=== PATIENT | male | born 1950 | race Caucasian/White ===

== ENCOUNTER 2017-02-09 14:00 | Inpatient (IN) | payer OTHER ==
[~2017-02-09] VITALS: Ht 170.2 cm; Wt 74.0 kg
[~2017-02-09 14:00] MED LIST: ASPEC81 PO; LPR25 PO; LPT40 PO; LSN5 PO; NTRGSL/4 UT; PLV75 PO; PRLSR20 PO
[2017-02-09 14:37] LABS: BASO % 0.6 %; BASO ABS # 0.04 K/uL (0-0.2); COMPLETE YES; EOS % 3.5 %; IG% 0.3 %; LYMPH % 18.8 %; LYMPH ABS # 1.35 K/uL (1.2-3.4); MEAN CORPUSCULAR HEMOGLOBIN 30.4 pg (25-34); MEAN PLATELET VOLUME 11.2 fL (7.4-10.4); MONO % 8.9 %; NEUT % 67.9 %; PLATELET COUNT 226 K/uL (130-400); RED BLOOD COUNT 2.96 M/uL (4.7-6.1); WHITE BLOOD COUNT 7.18 K/uL (4.8-10.8)
[2017-02-09 14:50] LABS: URINE APPEARANCE CLEAR (CLEAR); URINE BILIRUBIN NEG (NEG); URINE COLOR YELLOW; URINE EPITHELIAL CELL AUTO >30 /lpf (0-5); URINE NITRITE NEG (NEG); URINE SPECIFIC GRAVITY 1.022 (1.000-1.030); UROBILINOGEN NEG (NEG)
[2017-02-09 14:54] LABS: CALCIUM 8.1 mg/dl (8.5-10.1); CREATININE 1.1 mg/dl (0.60-1.40); POTASSIUM 3.5 mmol/L (3.5-5.1)
--- NOTE | 2017-02-09 14:59 | DIAGNOSTIC IMAGING REPORT ---
CHEST ONE VIEW PORTABLE HISTORY: Mood Disorder COMPARISON: Chest 01/05/2015. FINDINGS: The heart remains mildly enlarged. There is mild diffuse interstitial thickening. No new focal lung consolidations to suggest pneumonia. Left suprahilar density is likely due to the overlapping first rib. This is not significantly changed. 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 IMPRESSION: 1. Mild diffuse interstitial thickening. This could be chronic or due to mild congestive change. 2. Mild cardiomegaly, unchanged. 3. Left suprahilar density likely due to the overlapping first rib. Follow-up PA and lateral views of the chest is recommended for confirmation. Electronically signed by: Mathew Abbott M.D. 02/09/2017 2:58 PM Dictated Date/Time: 02/09/2017 2:54 PM
[2017-02-09 15:04] LABS: MANUAL MICROSCOPIC REQUIRED? NO; REVIEW REQ? YES; SULFASALICYLIC ACID POS (NEG); THYROID STIMULATING HORMONE 1.63 uIu/ml (0.300-4.500)
[2017-02-09] MEDS ORDERED: ASPI81TA28 PO (16:08)
[2017-02-09] MEDS ORDERED: ATOR-26 PO (16:08)
--- NOTE | 2017-02-09 16:24 | EMERGENCY ROOM VISIT NOTE ---
History Report prepared by Kinza: Salma Martínez Under the Supervision of: Dr. Colten Rae D.O. First contact with patient: 14:19 Chief Complaint: MENTAL HEALTH EVALUATION Stated Complaint: [facility] History of Present Illness The patient is a 66 year old male who presents to the Emergency Room with complaints of persistent depression that began a month and a half ago. The patient states that on December 16 his girlfriend of six years left him for another man. He states that he had previously been three times, noting that he had two previous divorces and lost his third to cancer. The patient states that today he reached out to [facility] to help sorting his thoughts and settling mind. He states that he vented to the counselor and said several things that he did not mean. The patient states that he would never actually hurt someone, but states that he did make statements regarding getting revenge. He additionally states that he made comments about wanting to join his that he lost several years ago, but states that he would never actually follow up on the intent. Per the psych manager case, the patient had been trying to get into therapy for the past several weeks and called [facility] today for assistance. She reports that the patient had several homicidal thoughts of wanting to kill the man his girlfriend left him for with a baseball bat, and states that the patient said if that didn't work he would use a gun from his gun cabinet. The psych manager case states that the patient made suicidal comments of swerving his motorcycle in front of a semi-truck. She reports that the patient then went on to say how he would additionally harm his ex-girlfriend and two other people. The psych manager case states that the patient is not willing for inpatient at this time. Pt denies headache, change in vision, fevers, chest pain, shortness of breath, nausea, vomiting, diarrhea, pain with urination, and melena. Source of History: patient Onset: a month and a half ago Position: other (global) Quality: other (depression) Timing: other (persistent) Note: Associated Symptoms: Suicidal and homicidal thoughts Review of Systems See HPI for pertinent positives & negatives. A total of 10 systems reviewed and were otherwise negative. Past Medical & Surgical Medical Problems: (1) Acute pancreatitis (2) Alcohol abuse (3) Cholelithiasis without obstruction (4) Dyslipidemia (5) Essential hypertension (6) Gastroesophageal reflux disease (7) suicidal and homicidal ideation Family History FH: heart disease Social History Smoking Status: Current Every Day Smoker Alcohol Use: none Drug Use: none Marital Status: in relationship Housing Status: lives with significant other Current/Historical Medications Scheduled Aspirin (Aspirin Ec), 81 MG PO DAILY Atorvastatin (Lipitor), 80 MG PO QPM Metoprolol Tartrate (Lopressor), 25 MG PO Q12 Omeprazole (Prilosec), 20 MG PO DAILY Scheduled PRN Nitroglycerin (Nitrostat), 0.4 MG UT PRN PRN for Chest Pain Allergies Coded Allergies: Shellfish (Verified Allergy, Unknown, UNKNOWN, 02/09/17) Physical Exam Vital Signs Date Time Temp Pulse Resp B/P Pulse Ox O2 Delivery O2 Flow Rate FiO2 02/09/17 15:54 80 18 172/104 98 Room Air 02/09/17 14:00 37.6 90 18 167/99 98 Room Air Physical Exam GENERAL: Sitting up in bed, alert, well appearing, well nourished, no distress, non-toxic EYE EXAM: normal conjunctiva. OROPHARYNX: no exudate, no erythema, lips, buccal mucosa, and tongue normal and mucous membranes are moist NECK: supple, no nuchal rigidity, no adenopathy, non-tender LUNGS: Clear to auscultation. Normal chest wall mechanics HEART: no murmurs, S1 normal and S2 normal ABDOMEN: abdomen soft, non-tender, normo-active bowel sounds, no masses, no rebound or guarding. BACK: Back is symmetrical on inspection and there is no deformity, no midline tenderness, no CVA tenderness. SKIN: no rashes and no bruising UPPER EXTREMITIES: upper extremities are grossly normal. LOWER EXTREMITIES: No pitting edema. NEURO EXAM: Normal sensorium, cranial nerves II-XII grossly intact, normal speech, no gross weakness of arms, no gross weakness of legs. PSYCH: Admits to statements of suicidal ideation and homicidal ideation, but denies any auditory or visual hallucinations. Medical Decision & Procedures ER Provider Diagnostic Interpretation: Radiology results as stated below per my review and the radiologist's interpretation: CHEST ONE VIEW PORTABLE HISTORY: Mood Disorder COMPARISON: Chest 01/05/2015. FINDINGS: The heart remains mildly enlarged. There is mild diffuse interstitial thickening. No new focal lung consolidations to suggest pneumonia. Left suprahilar density is likely due to the overlapping first rib. This is not significantly changed. 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 IMPRESSION: 1. Mild diffuse interstitial thickening. This could be chronic or due to mild congestive change. 2. Mild cardiomegaly, unchanged. 3. Left suprahilar density likely due to the overlapping first rib. Follow-up PA and lateral views of the chest is recommended for confirmation. Electronically signed by: Mathew Abbott M.D. 02/09/2017 2:58 PM Dictated Date/Time: 02/09/2017 2:54 PM Laboratory Results 02/09/17 14:15 Red Blood Count 2.96, Mean Corpuscular Volume 98.0, Mean Corpuscular Hemoglobin 30.4, Mean Corpuscular Hemoglobin Concent 31.0, Mean Platelet Volume 11.2, Neutrophils (%) (Auto) 67.9, Lymphocytes (%) (Auto) 18.8, Monocytes (%) (Auto) 8.9, Eosinophils (%) (Auto) 3.5, Basophils (%) (Auto) 0.6, Neutrophils # (Auto) 4.88, Lymphocytes # (Auto) 1.35, Monocytes # (Auto) 0.64, Eosinophils # (Auto) 0.25, Basophils # (Auto) 0.04 02/09/17 14:15 Test 02/09/17 14:15 02/09/17 14:30 White Blood Count 7.18 K/uL (4.8-10.8) Red Blood Count 2.96 M/uL (4.7-6.1) Hemoglobin 9.0 g/dL (14.0-18.0) Hematocrit 29.0 % (42-52) Mean Corpuscular Volume 98.0 fL (80-100) Mean Corpuscular Hemoglobin 30.4 pg (25-34) Mean Corpuscular Hemoglobin Concent 31.0 g/dl (32-36) Platelet Count 226 K/uL (130-400) Mean Platelet Volume 11.2 fL (7.4-10.4) Neutrophils (%) (Auto) 67.9 % Lymphocytes (%) (Auto) 18.8 % Monocytes (%) (Auto) 8.9 % Eosinophils (%) (Auto) 3.5 % Basophils (%) (Auto) 0.6 % Neutrophils # (Auto) 4.88 K/uL (1.4-6.5) Lymphocytes # (Auto) 1.35 K/uL (1.2-3.4) Monocytes # (Auto) 0.64 K/uL (0.11-0.59) Eosinophils # (Auto) 0.25 K/uL (0-0.5) Basophils # (Auto) 0.04 K/uL (0-0.2) RDW Standard Deviation 65.1 fL (36.4-46.3) RDW Coefficient of Variation 18.2 % (11.5-14.5) Immature Granulocyte % (Auto) 0.3 % Immature Granulocyte # (Auto) 0.02 K/uL (0.00-0.02) Urine Color YELLOW Urine Appearance CLEAR (CLEAR) Urine pH 8.0 (4.5-7.5) Urine Specific [place] 1.022 (1.000-1.030) Urine Protein 2+ (NEG) Urine Glucose (UA) NEG (NEG) Urine Ketones NEG (NEG) Urine Occult Blood NEG (NEG) Urine Nitrite NEG (NEG) Urine Bilirubin NEG (NEG) Urine Urobilinogen NEG (NEG) Urine Leukocyte Esterase TRACE (NEG) Urine WBC (Auto) 10-30 /hpf (0-5) Urine RBC (Auto) 0-4 /hpf (0-4) Urine Hyaline Casts (Auto) 5-10 /lpf (0-5) Urine Epithelial Cells (Auto) >30 /lpf (0-5) Urine Bacteria (Auto) NEG (NEG) Urine Renal Epithelial Cells 0-5 /lpf (0-5) Anion Gap 4.0 mmol/L (3-11) Est Creatinine Clear Calc Drug Dose 63.4 ml/min Estimated GFR () 81.8 Estimated GFR (Non- 70.6 BUN/Creatinine Ratio 16.0 (10-20) Calcium Level 8.1 mg/dl (8.5-10.1) Total Bilirubin 0.5 mg/dl (0.2-1) Direct Bilirubin 0.1 mg/dl (0-0.2) Aspartate Amino Transf (AST/SGOT) 15 U/L (15-37) Alanine Aminotransferase (ALT/SGPT) 22 U/L (12-78) Alkaline Phosphatase 81 U/L (45-117) Total Protein 9.3 gm/dl (6.4-8.2) Albumin 3.3 gm/dl (3.4-5.0) Thyroid Stimulating Hormone (TSH) 1.630 uIu/ml (0.300-4.500) Urine Opiates Screen NEG (NEG) Urine Methadone, Qualitative NEG (NEG) Urine Barbiturates NEG (NEG) Urine Phencyclidine (PCP) Level NEG (NEG) Ur Amphetamine/Methamphetamine NEG (NEG) MDMA (Ecstasy) Screen NEG (NEG) Urine Benzodiazepines Screen NEG (NEG) Urine Cocaine Metabolite NEG (NEG) Urine Marijuana (THC) POS (NEG) Ethyl Alcohol mg/dL < 3.0 mg/dl (0-3) Bedside Glucose 101 mg/dl (70-99) Laboratory results per my review. Medications Administered Medications (Trade) Dose Ordered Sig/Dolly Route Start Time Stop Time Status Last Admin Dose Admin Metoprolol Tartrate (Lopressor Tab) 25 mg NOW STAT PO 02/09/17 18:40 02/09/17 18:42 DC 02/09/17 19:09 25 MG Atorvastatin Calcium (Lipitor Tab) 80 mg NOW STAT PO 02/09/17 18:41 02/09/17 18:42 DC 02/09/17 19:09 80 MG ED Course ED COURSE: Vital signs were reviewed and showed hypertensive The patients medical record was reviewed The above diagnostic studies were performed and reviewed. ED treatments and interventions as stated above. 1431: The patient was evaluated in room A7. A complete history and physical examination was performed. 1740: I signed the 302 petition at this time. 1805: I had a long conversation with the patient and he has been informed that he is going to be placed for further psychiatric evaluation. He is tearful. 1840: Ordered Lopressor Tab 25 mg PO, Lipitor Tab 80 mg PO. 1928: The patient has been accepted to [facility] for further psychiatric care and evaluation. Medical Decision Differential diagnosis: Etiologies such as mood disorder, infection, hypoglycemia, electrolyte abnormalities, cardiac sources, intracerebral event, toxicologic, neurologic, as well as others were entertained. Patient is a 66-year-old male who presents the ER after making suicidal statements along with homicidal statements to can help. Patient does admit to the statements now but notes that he would never do this. He did have a clear plan laid out and had a backup plan case is initial plan fell. Labs show a chronic anemia. BMP along with LFTs and TSH were normal. Tox was positive for marijuana. Alcohol was negative. UA was negative. Based on his symptoms and presentation I felt it was reasonable to sign the 302. At this point patient was updated and admitted to 3 S. Impression Primary Impression: Suicidal ideation Additional Impression: Chronic anemia Scribe Attestation The scribe's documentation has been prepared under my direction and personally reviewed by me in its entirety. I confirm that the note above accurately reflects all work, treatment, procedures, and medical decision making performed by me. Departure Information Dispostion Mental Health Acute Care Referrals Savanah Geiger D.O. (PCP) Problem Qualifiers
[2017-02-09 16:31] LABS: BENZODIAZEPINE, URINE NEG (NEG); COCAINE,URINE NEG (NEG); PHENCYCLIDINE, URINE NEG (NEG)
[2017-02-09] MEDS ORDERED: METOPROLOL TARTRATE 50 MG TAB PO STA (18:40)
[2017-02-09] MEDS ORDERED: ATORVASTATIN 40 MG TAB PO STA (18:41)
[2017-02-09] MEDS ORDERED: ACETAMINOPHEN 325 MG TAB PO PRN (18:45)
[2017-02-09] MEDS ORDERED: MAGNESIUM HYDROXIDE SUSP 30 ML UDC PO PRN (18:45)
[2017-02-09] MEDS ORDERED: hydrOXYzine HCL 25 MG TAB PO PRN (18:45)
[2017-02-09] MEDS ORDERED: ALUMINUM/MAGNESIUM SUSP 30 ML UDC PO PRN (18:45)
[2017-02-09] MEDS ORDERED: SODIUM CHLORIDE 0.65% NA SOLN 45 ML (OCEAN) PRN (18:45)
[2017-02-09] MEDS ORDERED: BISMUTH SUBSALICYLATE PER ML OMNICELL CHARGE PO PRN (18:45)
[2017-02-09] MEDS ORDERED: NITROGLYCERIN 0.4 MG SL PER TAB CHARGE UT PRN (19:00)
[2017-02-09 20:12] VITALS: O2SAT 97
[2017-02-09 20:41] VITALS: BP_SYST 154; BP_SYST 160; BP_DIAS 87; BP_DIAS 90; PULSE 73; PULSE 88; TEMP 37.6; Ht 170.2 cm; Wt 74.0 kg
[2017-02-09] MEDS: METOPROLOL TARTRATE 25 MG TAB PO SCH (21:00)
[2017-02-09] MEDS: ATORVASTATIN 40 MG TAB PO SCH (21:00)
[2017-02-10 06:41] VITALS: BP 86/53; PULSE 101; TEMP 36.9
[2017-02-10] MEDS: NICOTINE 14 MG/24 HR TDSY TD SCH (09:00)
[2017-02-10] MEDS: PANTOprazole SOD 40 MG TAB PO SCH (10:38)
[2017-02-10] MEDS: METOPROLOL TARTRATE 25 MG TAB PO SCH ×2 (10:38→20:26)
[2017-02-10] MEDS: ASPIRIN 81 MG ECTAB PO SCH (10:38)
--- NOTE | 2017-02-10 11:03 | Psychiatric History & Physical ---
History Date of Service February 10, 2017. Identifying Data Brian Salinas is a 66-year-old male who currently lives in [facility], who was brought to the emergency room bipolar amalia, after making a call to can help, and reporting homicidal and suicidal ideation. The patient is admitted on a 302 involuntary commitment. Chief Complaint "I was feeling a little low." History of Present Illness The patient is a 66-year-old male with no past psychiatric history, who reports that he was completely misunderstood by the can help worker when he called her to "vent" yesterday. He admits that he has been depressed for years, since his third , Mame, from cancer. He felt that she was his one true love and admits to having had suicidal ideation intermittently since then. More recently, he had been in a relationship with a woman whose name is Greta. They have been together for 6 or 7 years. On December 16, she ended their relationship because she was going to be with another man. He said that he he "hurt deep". He had thoughts to kill himself and her boyfriend for "taking Greta away from me ". He never acted on these thoughts. Since November he feels like his mood has steadily been improving. He says he even had plans to go out on a date with another woman which he was looking forward to. He has continued to have intermittent thoughts of suicide and apparently homicidality. Yesterday, he called the can help worker hoping to talk to Jeaneth, someone he has talked with on mobile crisis twice before. He said he has been trying to get into some outpatient counseling which has not yet happened. Yesterday, he he called can help and they sent out a different mobile packing line worker. He describes her as having been "mean" and misinterpreted all of his statements. According to the 302 petition her statement, the patient indicated that he has had ongoing thoughts of suicide, thinking about riding his motorcycle into traffic to kill himself. He reported to her that he was also having ongoing intrusive thoughts to kill the man that stole his girlfriend. He was specific enough to say that he would use a baseball bat and if that didn't work he would use a gun. He said he had access to multiple guns. He admitted to being mean or lately and also went on to make provocative statements that if he was getting killed one person he might as well kill other people such as Laisha and Mami due to screwing him over on an inheritance. The patient admits that he said some of these things but says that he never meant to follow through and that he was just venting. Today the patient admits that his mood is been depressed and that he has had suicidal and homicidal thoughts but denies he has ever acted on them and says he would never act on them. He reports that his sleep is been "all right". His appetite has been "okay". His energy is "getting better" and he has been working around the house and has many projects lined up. He denies that he has ever experienced auditory or visual hallucinations. He doesn't endorse chronic worry, worrying about other people. He currently has his best friend, Sher, living with him for the last 2 months because Sher himself was going through a divorce. The patient willingly says that he will provide Sher's number so that we can get additional information from him. Brian denies that he is ever engaged in self-injurious behaviors. He denies any discrete episodes of euphoric mood, sleeplessness or pleasure seeking behaviors that would be congruent with a bipolar disorder. Past Psychiatric History Current OP Treatment: no current treatment Prior OP Treatment: no prior treatment Prior Psych Hospitalizations: none Access to a Gun: Yes Suicide Attempts: No Past Medication Trials The patient reports 1 previous trial of an antidepressant, on which he felt unwell Past Medical/Surgical History History of Concussion/Seizure: No (1) Benign essential hypertension (2) Dyslipidemia (3) STEMI (ST elevation myocardial infarction) (4) Chronic anemia (5) Gastroesophageal reflux disease (6) Tobacco dependence syndrome Allergies Allergies: Coded Allergies: Shellfish (Verified Allergy, Unknown, UNKNOWN, 02/09/17) Home Medications Scheduled Aspirin (Aspirin Ec), 81 MG PO DAILY Atorvastatin (Lipitor), 80 MG PO QPM Metoprolol Tartrate (Lopressor), 25 MG PO Q12 Omeprazole (Prilosec), 20 MG PO DAILY Scheduled PRN Nitroglycerin (Nitrostat), 0.4 MG UT PRN PRN for Chest Pain Family History FH: heart disease History of Suicide: No History of Substance Abuse: No Psychiatric History: No Alcohol Use Alcohol Use In Past 12 Months: No (DRANK 10 YEARS AGO.) AUDIT Total Score: 0 The patient admits to being an alcoholic but has been sober for decades Smoking Use Smoking Status: Current Every Day Smoker Substance History The patient admits to smoking marijuana 1-2 times per week which he says he uses for arthritis. He denies the use of other street drugs. Personal History Lives in: [place] in his own home he has his friend Sher living with him for the Childhood: Grew up locally. Both parents are . He has no contact with previous wives or his one biological daughter Education: graduated from high school Work History: Carpentry, construction, currently retired on disability for medical reasons Relationship History: (2), ( Mame in 2007) Children: 1 biological daughter with whom he has no contact Spiritual Affiliation: denies Legal History: none Psychological Trauma History: Other (none) Review of Systems Constitutional: denies no symptoms reported, denies see HPI, denies chills, denies diaphoresis, denies fever, denies malaise, denies weakness, denies other Eyes: denies: as stated in HPI, blurred vision, discharge, double vision, eye pain, itching, no symptoms, other, photophobia, redness, tearing, visual changes ENT: denies: dental pain, ear discharge, ear pain, epistaxis, gum swelling, loss of hearing, mouth pain, mouth swelling, nasal congestion, nasal pain, no symptoms reported, other, rhinorrhea, see HPI, sore throat, stidor, throat swelling, tinnitus Cardiovascular: reports: chest tightness (with exercise) Respiratory: reports: cough ("smoker's cough"), short of breath (with exertion) Gastrointestinal: denies no symptoms reported, denies see HPI, denies abdominal pain, denies constipation, denies diarrhea, denies nausea, denies vomiting, denies other Genitourinary - Male: denies: amenorrhea, impotence, no symptoms, other, penile discharge, penile itching, rash, see HPI, testicular pain, testicular swelling Musculoskeletal: joint pain (arthritis) Integumentary: denies no symptoms reported, denies see HPI, denies change in color, denies change in hair/nails, denies dryness, denies lesions, denies lumps , denies rash, denies other Neurologic: denies: dizziness, focal weakness, general weakness, headache, lethargy, memory loss, no symptoms, numbness, other, paresthesias, pre-existing deficit, see HPI, seizure, tics, tingling, tremors, vertigo Endocrine: denies: as stated in HPI, cold intolerance, goiter, hair changes, heat intolerance, no symptoms, other, polydipsia, polyuria, skin changes Hematologic / Lymphatic: anemia (chronic) Examination Physical Examination Exam performed by Dr. Rae in the emergency room has been reviewed and accepted as medical clearance to our unit Vital Signs Vital Signs Past 12 Hours Date Time Temp Pulse Resp B/P Pulse Ox O2 Delivery O2 Flow Rate FiO2 02/10/17 06:41 36.9 101 18 86/53 Laboratory Results Last 24 Hours Test 02/09/17 14:15 02/09/17 14:30 White Blood Count 7.18 K/uL Red Blood Count 2.96 M/uL Hemoglobin 9.0 g/dL Hematocrit 29.0 % Mean Corpuscular Volume 98.0 fL Mean Corpuscular Hemoglobin 30.4 pg Mean Corpuscular Hemoglobin Concent 31.0 g/dl Platelet Count 226 K/uL Mean Platelet Volume 11.2 fL Neutrophils (%) (Auto) 67.9 % Lymphocytes (%) (Auto) 18.8 % Monocytes (%) (Auto) 8.9 % Eosinophils (%) (Auto) 3.5 % Basophils (%) (Auto) 0.6 % Neutrophils # (Auto) 4.88 K/uL Lymphocytes # (Auto) 1.35 K/uL Monocytes # (Auto) 0.64 K/uL Eosinophils # (Auto) 0.25 K/uL Basophils # (Auto) 0.04 K/uL RDW Standard Deviation 65.1 fL RDW Coefficient of Variation 18.2 % Immature Granulocyte % (Auto) 0.3 % Immature Granulocyte # (Auto) 0.02 K/uL Urine Color YELLOW Urine Appearance CLEAR Urine pH 8.0 Urine Specific [place] 1.022 Urine Protein 2+ Urine Glucose (UA) NEG Urine Ketones NEG Urine Occult Blood NEG Urine Nitrite NEG Urine Bilirubin NEG Urine Urobilinogen NEG Urine Leukocyte Esterase TRACE Urine WBC (Auto) 10-30 /hpf Urine RBC (Auto) 0-4 /hpf Urine Hyaline Casts (Auto) 5-10 /lpf Urine Epithelial Cells (Auto) >30 /lpf Urine Bacteria (Auto) NEG Urine Renal Epithelial Cells 0-5 /lpf Sodium Level 139 mmol/L Potassium Level 3.5 mmol/L Chloride Level 106 mmol/L Carbon Dioxide Level 29 mmol/L Anion Gap 4.0 mmol/L Blood Urea Nitrogen 18 mg/dl Creatinine 1.10 mg/dl Est Creatinine Clear Calc Drug Dose 63.4 ml/min Estimated GFR () 81.8 Estimated GFR (Non- 70.6 BUN/Creatinine Ratio 16.0 Random Glucose 94 mg/dl Calcium Level 8.1 mg/dl Total Bilirubin 0.5 mg/dl Direct Bilirubin 0.1 mg/dl Aspartate Amino Transf (AST/SGOT) 15 U/L Alanine Aminotransferase (ALT/SGPT) 22 U/L Alkaline Phosphatase 81 U/L Total Protein 9.3 gm/dl Albumin 3.3 gm/dl Thyroid Stimulating Hormone (TSH) 1.630 uIu/ml Urine Opiates Screen NEG Urine Methadone, Qualitative NEG Urine Barbiturates NEG Urine Phencyclidine (PCP) Level NEG Ur Amphetamine/Methamphetamine NEG MDMA (Ecstasy) Screen NEG Urine Benzodiazepines Screen NEG Urine Cocaine Metabolite NEG Urine Marijuana (THC) POS Ethyl Alcohol mg/dL < 3.0 mg/dl Bedside Glucose 101 mg/dl Mental Examination During interview pt is: alert and oriented, cooperative Appearance: disheveled (wearing hospital gown) Eye contact is: good Motor behavior is: steady gait & station, no abnormal motor movements Speech: normal in rate, rhythm & volume Affect: anxious Mood is: depressed, anxious Thought process: goal directed Thought content: reality based without delusions Suicidal thought are: present, Plan: denied, Intent: denied Homicidal thoughts are: present, Plan: denied (despite reports to use a baseball bat or a gun in the 302 petition her statement), Intent: denied Hallucinations: denies auditory, denies visual Cognition: memory grossly intact, attention grossly intact, language grossly intact Intelligence estimated to be: below average Insight: limited Judgement: limited Impression / Recommendations Impression 66-year-old gentleman admitted to our unit on a 302 involuntary commitment after making suicidal and homicidal statements to the can help worker. He does not see the seriousness of these statements, wanting only to see that he made them as a means of venting his feelings. He adamantly denies that he would ever act on these. I have explained to him the need to obtain supplemental information that would go toward his recent behaviors in state of mind. He is willing for us to contact his roommate Sher. He is willing for outpatient counseling and will have the social services aide facilitate these appointments. We discussed an antidepressant in view of the fact he has been depressed since November however the patient reports his mood has been improving and does not want to consider medication at this time. We will likely keep him over the weekend to be sure that his presentation remains the same, allowing us time to get supplemental information and set up appointments. At this time, he requires inpatient mental health treatment due to the severity of his statements and the risk for harm to self and others if discharged. Inventory Assets Strengths: Care and concern for others, willing to engage in treatment Needs: Need to secure guns, get into outpatient therapy Risk Factors Assessment Male: Yes : Yes /single/: Yes Higher / Fall in social status: No Access to guns: Yes Health problems: Yes Mental Health Diagnoses: No Substance use disorders: Yes (remote history of alcoholism) Previous attempt: No Previous psychiatric stay: No Protective Factors Assessment Pentecostal beliefs: No : No Responsible for young children: No Employed: No Stable relationships: No Supportive family: No Recommendations (1) unspecified depressive disorder 02/10 - Obtain supplemental information from roommate Sher re: recent moods, SI, etc. - Q 15 min checks for safety - Encourage participation in group and individual counseling - Arrange for OP counseling - Specific threats were made to the Can Help worker, but not to me. Call Can Help to determine if they are carrying out a duty to warn today. - He is here on a 302. Will continue to gather information toward the need for ongoing inpatient care,. - Assist the patient to learn and utilize healthy coping strategies. (2) Essential hypertension 02/10 - Continue home doses of metoprlol, with hold parameters in view of today's low BP - Monitor BP (3) Dyslipidemia 02/10 - Continue home dose of atorvastatin (4) Gastroesophageal reflux disease 02/10 - Convert omeprazole to protonix (5) Tobacco dependence syndrome 02/10 - Counseled about detriments of smoking. Patient declines the offer of a nicotine patch or gum (6) Cannabis abuse 02/10 - Patient reports the he uses it for arthritis - REcommend abstinence and to see his PCP for eval - Has been reviewed with Dr. Racheal Lowe CPT Code Initial Hospital Care: [id number]
[2017-02-10 20:25] VITALS: BP 167/98; PULSE 76
[2017-02-10] MEDS: ATORVASTATIN 40 MG TAB PO SCH (20:27)
[2017-02-11] MEDS: hydrOXYzine HCL 25 MG TAB PO PRN (03:05)
[2017-02-11 07:10] VITALS: BP_SYST 185; BP_SYST 196; BP_DIAS 91; BP_DIAS 99; PULSE 72; PULSE 73; TEMP 36.7
[2017-02-11] MEDS: NICOTINE 14 MG/24 HR TDSY TD SCH (09:00)
[2017-02-11] MEDS: METOPROLOL TARTRATE 25 MG TAB PO SCH ×2 (09:09→23:56)
[2017-02-11] MEDS: PANTOprazole SOD 40 MG TAB PO SCH (09:09)
[2017-02-11] MEDS: ASPIRIN 81 MG ECTAB PO SCH (09:09)
[2017-02-11] MEDS ORDERED: LISI-461 PO (10:14)
[2017-02-11] MEDS ORDERED: LISINOPRIL 10 MG TAB PO ONE (10:46)
--- NOTE | 2017-02-11 11:08 | Medical Consult ---
Consultation Date of Consultation: February 11, 2017. Attending Physician: Racheal Lowe MD Reason for Consultation: Hypertension History of Present Illness Mr. Salinas is a 66 yoM who presented with SI/HI and is currently being treated in the Behavioral Health Unit. He has a history of STEMI s/p bare metal stent placement in 2014 and is medically managed under the guidance of Dr. Geiger ( Cardiology) and Dr. Geiger (Primary Care). He states that he trusts his PCP implicitly and she calls the meds in for him to take, but he otherwise doesn't know what he is taking. Per the outpatient notes, his lisinopril was increased to 10mg PO daily in Sep for uncontrolled hypertension, and the patient reports compliance with this at home. He denies any chest pain, shortness of breath at this time and ten other systems were reviewed any negative. He is currently emotionally distressed because of missing his cat and from his girlfriend. He is also a chronic, long-term tobacco smoker and is not smoking at this time. He denies any alcohol use since 2007 but reports drinking heavily in the past. Past Medical/Surgical History PMHx: chronic anemia STEMI-CAD s/p bare metal stent in Jul 2015-was on Plavix until Sep 2016 HTN Tobacco abuse Marajuana use GERD Hyperlipidemia COPD Pulmonary nodule PSHx: lap yenifer Family History Patient denies any known family history of medical problems. Social History Smoking Status: Current Every Day Smoker Smokeless Tobacco Use: No Alcohol Use: none Drug Use: marijuana Marital Status: in relationship Housing Status: lives with significant other Allergies Coded Allergies: Shellfish (Verified Allergy, Unknown, UNKNOWN, 02/09/17) Home Medications Reported Home Medications Medications Dose Route/Sig Max Daily Dose Days Date Category Lisinopril 10 Mg Tab 10 Mg PO DAILY 02/11/17 Reported Aspirin Ec (Aspirin) 81 Mg Tab 81 Mg PO DAILY 02/09/17 Reported Lipitor (Atorvastatin Calcium) 80 Mg Tab 80 Mg PO QPM 02/09/17 Reported Lopressor (Metoprolol Tartrate) 25 Mg Tab 25 Mg PO Q12 01/07/15 Rx Nitrostat (Nitroglycerin) 0.4 Mg Tab 0.4 Mg UT PRN PRN 01/05/15 Reported Prilosec (Omeprazole) 20 Mg Capcr 20 Mg PO DAILY 02/11/14 Reported Current Inpatient Medications Current Inpatient Medications Medications (Trade) Dose Ordered Sig/Dolly Route Start Time Stop Time Status Last Admin Dose Admin Acetaminophen (Tylenol Tab) 650 mg Q4H PRN PO 02/09/17 18:45 03/11/17 18:44 Bismuth Subsalicylate (Kaopectate Liqd) 15 ml PRN PRN PO 02/09/17 18:45 03/11/17 18:44 Al Hydroxide/Mg Hydroxide (Maalox Susp) 30 ml Q4H PRN PO 02/09/17 18:45 03/11/17 18:44 Magnesium Hydroxide (Milk Of Magnesia Susp) 30 ml DAILY PRN PO 02/09/17 18:45 03/11/17 18:44 Sodium Chloride ([place] Nasal [place]) PRN PRN NA 02/09/17 18:45 03/11/17 18:44 Hydroxyzine HCl (Vistaril Tab) 50 mg HSZ PRN PO 02/09/17 18:45 03/11/17 18:44 Hydroxyzine HCl (Vistaril Tab) 25 mg Q4H PRN PO 02/09/17 18:45 03/11/17 18:44 02/11/17 03:05 25 MG Nicotine (Nicoderm Cq 14MG Patch) 1 patch QAM TD 02/10/17 09:00 03/12/17 08:59 Miscellaneous (Remove Nicoderm Patch) 1 ea HS N/A 02/09/17 21:00 03/11/17 20:59 Aspirin (Ecotrin Tab) 81 mg DAILY PO 02/10/17 09:00 03/12/17 08:59 02/11/17 09:09 81 MG Atorvastatin Calcium (Lipitor Tab) 80 mg QPM PO 02/09/17 21:00 03/11/17 20:59 02/10/17 20:27 80 MG Metoprolol Tartrate (Lopressor Tab) 25 mg Q12 PO 02/09/17 21:00 03/11/17 20:59 02/11/17 09:09 25 MG Nitroglycerin (Nitrostat Tab) 0.4 mg UD PRN UT 02/09/17 19:00 03/11/17 18:59 Pantoprazole Sodium (Protonix Tab) 40 mg DAILY PO 02/10/17 09:00 03/12/17 08:59 02/11/17 09:09 40 MG Review of Systems Ten systems were reviewed and negative except as indicated in HPI. Physical Exam Date Time Temp Pulse Resp B/P Pulse Ox O2 Delivery O2 Flow Rate FiO2 02/11/17 07:10 36.7 72 18 185/91 73 196/99 02/10/17 20:25 76 167/98 GEN: thin, in no acute distress, alert and appropriate, ambulatory HEENT: NC/AT, pupils equal and reactive, normal sclerae, MMM CARDIO: reg rate, S1/2 heard without m/g/r, 2+ pulses in radial AA LUNGS: CTA bilaterally, no crackles, rales or wheezes, good diaphragmatic excursion ABD: soft, non-tender, non-distended, no rebound or guarding EXTREMITY: no LE swelling or edema, extremities are warm and well-perfused NEURO: CN 2-12 grossly intact, no gross focal deficits MUSC: ambulatory SKIN: warm and dry Laboratory Results 02/09/17 14:15 Red Blood Count 2.96, Mean Corpuscular Volume 98.0, Mean Corpuscular Hemoglobin 30.4, Mean Corpuscular Hemoglobin Concent 31.0, Mean Platelet Volume 11.2, Neutrophils (%) (Auto) 67.9, Lymphocytes (%) (Auto) 18.8, Monocytes (%) (Auto) 8.9, Eosinophils (%) (Auto) 3.5, Basophils (%) (Auto) 0.6, Neutrophils # (Auto) 4.88, Lymphocytes # (Auto) 1.35, Monocytes # (Auto) 0.64, Eosinophils # (Auto) 0.25, Basophils # (Auto) 0.04 02/09/17 14:15 Test 02/09/17 14:15 02/09/17 14:30 White Blood Count 7.18 K/uL (4.8-10.8) Red Blood Count 2.96 M/uL (4.7-6.1) Hemoglobin 9.0 g/dL (14.0-18.0) Hematocrit 29.0 % (42-52) Mean Corpuscular Volume 98.0 fL (80-100) Mean Corpuscular Hemoglobin 30.4 pg (25-34) Mean Corpuscular Hemoglobin Concent 31.0 g/dl (32-36) Platelet Count 226 K/uL (130-400) Mean Platelet Volume 11.2 fL (7.4-10.4) Neutrophils (%) (Auto) 67.9 % Lymphocytes (%) (Auto) 18.8 % Monocytes (%) (Auto) 8.9 % Eosinophils (%) (Auto) 3.5 % Basophils (%) (Auto) 0.6 % Neutrophils # (Auto) 4.88 K/uL (1.4-6.5) Lymphocytes # (Auto) 1.35 K/uL (1.2-3.4) Monocytes # (Auto) 0.64 K/uL (0.11-0.59) Eosinophils # (Auto) 0.25 K/uL (0-0.5) Basophils # (Auto) 0.04 K/uL (0-0.2) RDW Standard Deviation 65.1 fL (36.4-46.3) RDW Coefficient of Variation 18.2 % (11.5-14.5) Immature Granulocyte % (Auto) 0.3 % Immature Granulocyte # (Auto) 0.02 K/uL (0.00-0.02) Urine Color YELLOW Urine Appearance CLEAR (CLEAR) Urine pH 8.0 (4.5-7.5) Urine Specific [place] 1.022 (1.000-1.030) Urine Protein 2+ (NEG) Urine Glucose (UA) NEG (NEG) Urine Ketones NEG (NEG) Urine Occult Blood NEG (NEG) Urine Nitrite NEG (NEG) Urine Bilirubin NEG (NEG) Urine Urobilinogen NEG (NEG) Urine Leukocyte Esterase TRACE (NEG) Urine WBC (Auto) 10-30 /hpf (0-5) Urine RBC (Auto) 0-4 /hpf (0-4) Urine Hyaline Casts (Auto) 5-10 /lpf (0-5) Urine Epithelial Cells (Auto) >30 /lpf (0-5) Urine Bacteria (Auto) NEG (NEG) Urine Renal Epithelial Cells 0-5 /lpf (0-5) Anion Gap 4.0 mmol/L (3-11) Est Creatinine Clear Calc Drug Dose 63.4 ml/min Estimated GFR () 81.8 Estimated GFR (Non- 70.6 BUN/Creatinine Ratio 16.0 (10-20) Calcium Level 8.1 mg/dl (8.5-10.1) Total Bilirubin 0.5 mg/dl (0.2-1) Direct Bilirubin 0.1 mg/dl (0-0.2) Aspartate Amino Transf (AST/SGOT) 15 U/L (15-37) Alanine Aminotransferase (ALT/SGPT) 22 U/L (12-78) Alkaline Phosphatase 81 U/L (45-117) Total Protein 9.3 gm/dl (6.4-8.2) Albumin 3.3 gm/dl (3.4-5.0) Thyroid Stimulating Hormone (TSH) 1.630 uIu/ml (0.300-4.500) Urine Opiates Screen NEG (NEG) Urine Methadone, Qualitative NEG (NEG) Urine Barbiturates NEG (NEG) Urine Phencyclidine (PCP) Level NEG (NEG) Ur Amphetamine/Methamphetamine NEG (NEG) MDMA (Ecstasy) Screen NEG (NEG) Urine Benzodiazepines Screen NEG (NEG) Urine Cocaine Metabolite NEG (NEG) Urine Marijuana (THC) POS (NEG) Ethyl Alcohol mg/dL < 3.0 mg/dl (0-3) Bedside Glucose 101 mg/dl (70-99) Assessment & Plan 66 yo M admitted to behavioral health unit for SI/HI 1. HTN-uncontrolled. He is on lisinopril at home at 10mg PO daily and reports compliance with this prior to coming in. Will add this back to daily regimen and adjust as needed over next couple of days. Cont other medications including Lopressor. 2. CAD-on appropriate medical therapy for this including statin, ASA, Lopressor and now lisinopril. Plavix was stopped in Sep appropriately after two years and bare metal stent placement in 2014. He is stable and asymptomatic at this time. 3. Chronic anemia-being worked up as outpatient and he will need a GI workup which is being orchestrated by PCP. 4. GERD-cont PPI 5. Tobacco abuse-cont Nicotine replacement and strongly encouraged smoking cessation ciara in setting of CAD and HTN DVT-pt ambulatory and, therefore, low risk so DVT not needed Full Code Winnie Patel DO [facility] Hospitalist
--- NOTE | 2017-02-11 16:38 | Psychiatric Progress Notes ---
Progress Note Date of Service February 11, 2017. Interval History 66-year-old gentleman admitted to our unit on a 302 involuntary commitment after making suicidal and homicidal statements to the can help worker on . . Chief Complaint "I am being thrown away, no one cares". Subjective Patient was seen & assessed interval progress reviewed with Nursing and chart reviewed Patient per nursing had trouble sleeping overnight taking vistaril at 3am and then only getting 3 hours. He had a good visit last PM with his roommate who states "his bark is worse than his bite" meaning the radha is not violent and has not harmed himself or others. The roommate has secured patient's guns. SW has not yet been able to get a hold of his ex-GF regarding duty to warn. Aftercare arrangements were a challenge for Social work given his insurance. Radha was sitting in the corner in the hallway when I met him. He states "No one cares, I am being thrown away" He is notably anxious and circular and distressed stating he wants to go home to his cat, and that nothing will make this hospital stay tolerable. DIscussed the need to observe his safety and behavior, and provide outpatient service appointments prior to leaving. He again is very circular and fixates on aspects of the hospital but states nothing will make it tolerable. He agrees he is depressed but he states "all I wanted was outpatient care from the outset" meaning when he called [facility] 2 weeks ago. 'I was so sad after my in 2008, if I wanted to then and did not kill myself, I sure am not going to do it now....If I was going to do it, I would have done it" He reports feeling sad and lost, and "I just want to go home." He is eating and attending programming. He states he was sitting in the hallway because there were people in everyother room and it was place he could sit down and be alone. He notes he had poor sleep last night and woke in the dayroom startled and anxious "like when you are falling in a dream and you wake up" He has anxiety "what if that happens tonight?" He had feeling of stumbling this AM after his 25mg hydroxyzine. He is open to discussion of medication for sleep, discussed sonata vs. remeron low dose and he elects for remeron Sleep Information Total Hours of Sleep: 3.75 Meal Information Percent of Breakfast Consumed: 0 Percent of Lunch Consumed: 75 Percent of Dinner Consumed: 50 Mental Status Exam During interview pt is: alert and oriented, cooperative Appearance: disheveled (wearing hospital gown) Eye contact is: good Motor behavior is: steady gait & station, no abnormal motor movements Speech: normal in rate, rhythm & volume Affect: anxious Mood is: depressed, anxious Thought process: goal directed (but does get circular and repetitive at times repeating concerns) Thought content: reality based without delusions Suicidal thought are: present (stating "but I am not going to do it"), Plan: denied, Intent: denied Homicidal thoughts are: present, Plan: denied (despite reports to use a baseball bat or a gun in the 302 petition her statement), Intent: denied Hallucinations: denies auditory, denies visual Cognition: memory grossly intact, attention grossly intact, language grossly intact Intelligence estimated to be: below average Insight: limited Judgement: limited Impression 66-year-old gentleman admitted to our unit on a 302 involuntary commitment after making suicidal and homicidal statements to the can help worker. He does not see the seriousness of these statements, wanting only to see that he made them as a means of venting his feelings. He adamantly denies that he would ever act on these. I have explained to him the need to obtain supplemental information that would go toward his recent behaviors in state of mind. He is willing for us to contact his roommate Sher. He is willing for outpatient counseling and will have the social welfare research worker facilitate these appointments. We discussed an antidepressant in view of the fact he has been depressed since November however the patient reports his mood has been improving and does not want to consider medication at this time. We will likely keep him over the weekend to be sure that his presentation remains the same, allowing us time to get supplemental information and set up appointments. At this time, he requires inpatient mental health treatment due to the severity of his statements and the risk for harm to self and others if discharged. Plan (1) unspecified depressive disorder 02/10 - Obtain supplemental information from roommate Sher re: recent moods, SI, etc. - Q 15 min checks for safety - Encourage participation in group and individual counseling - Arrange for OP counseling - Specific threats were made to the [facility] worker, but not to me. Call [facility] to determine if they are carrying out a duty to warn today. - He is here on a 302. Will continue to gather information toward the need for ongoing inpatient care,. - Assist the patient to learn and utilize healthy coping strategies. 02/11 - reiterated need to observe his behavior matching his words and gathering collateral and arranging outpatient care as necessary aspects of his stay with possible discharge on Monday - will use remeron 7.5mg for sleep and although we are not starting it for mood, if he tolerates it, it may help his mood and off label help his anxiety as well he is aware of the role using it for sleep but the possible secondary gains of the medication if he tolerates it - nursing to perform Mini-Cog as patient is showing evidence of cognitive simplicity which may be his baseline but also may be early signs of cognitive impairment (2) Essential hypertension 02/10 - Continue home doses of metoprlol, with hold parameters in view of today's low BP - Monitor BP 02/11 - hypotension 02/10 and then severe HTN 02/11/17, appreciate IM Consult recommendations and starting lisinopril (3) Dyslipidemia 02/10 - Continue home dose of atorvastatin (4) Gastroesophageal reflux disease 02/10 - Convert omeprazole to protonix (5) Tobacco dependence syndrome 02/10 - Counseled about detriments of smoking. Patient declines the offer of a nicotine patch or gum (6) Cannabis abuse 02/10 - Patient reports the he uses it for arthritis - REcommend abstinence and to see his PCP for eval - Has been reviewed with Dr. Racheal Lowe Discharge / Aftercare Planning Primary Care Physician: Name: Dr Savanah Soliz Phone Number: [phone] Appointment Notes: as needed Psychiatrist: Name: [facility] Dr José Phone Number: [phone] Date of Appointment: Mar 16, 2017 Time of Appointment: 900 Appointment Notes: . Therapist: Name: Dano Naqvi Phone Number: [phone] Disulfurizer Tender: Name: jenny Guevara Assets Strengths: Care and concern for others, willing to engage in treatment Needs: Need to secure guns, get into outpatient therapy Risk Factors Assessment Male: Yes : Yes /single/: Yes Higher / Fall in social status: No Health problems: Yes Mental Health Diagnoses: No Substance use disorders: Yes (remote history of alcoholism) Previous attempt: No Previous psychiatric stay: No Protective Factors Assessment Gnosticist beliefs: No : No Responsible for young children: No Employed: No Stable relationships: No Supportive family: No Data Vital Signs Last 24 Hrs: Date Time Temp Pulse Resp B/P Pulse Ox O2 Delivery O2 Flow Rate FiO2 02/11/17 07:10 36.7 72 18 185/91 73 196/99 02/10/17 20:25 76 167/98 Meds Administered Last 24 Hrs: Meds Administered (Past 24Hrs) Medications (Trade) Dose Ordered Sig/Dolly Route Start Time Stop Time Status Last Admin Dose Admin Metoprolol Tartrate (Lopressor Tab) 25 mg NOW STAT PO 02/09/17 18:40 02/09/17 18:42 DC 02/09/17 19:09 25 MG Atorvastatin Calcium (Lipitor Tab) 80 mg NOW STAT PO 02/09/17 18:41 02/09/17 18:42 DC 02/09/17 19:09 80 MG Hydroxyzine HCl (Vistaril Tab) 25 mg Q4H PRN PO 02/09/17 18:45 03/11/17 18:44 02/11/17 03:05 25 MG Aspirin (Ecotrin Tab) 81 mg DAILY PO 02/10/17 09:00 03/12/17 08:59 02/11/17 09:09 81 MG Atorvastatin Calcium (Lipitor Tab) 80 mg QPM PO 02/09/17 21:00 03/11/17 20:59 02/10/17 20:27 80 MG Metoprolol Tartrate (Lopressor Tab) 25 mg Q12 PO 02/09/17 21:00 03/11/17 20:59 02/11/17 09:09 25 MG Pantoprazole Sodium (Protonix Tab) 40 mg DAILY PO 02/10/17 09:00 03/12/17 08:59 02/11/17 09:09 40 MG Lisinopril (Zestril Tab) 10 mg 1046 ONCE PO 02/11/17 10:46 02/11/17 11:09 DC 02/11/17 11:51 10 MG
[2017-02-11 21:22] VITALS: BP 188/77; PULSE 76
[2017-02-11] MEDS: ATORVASTATIN 40 MG TAB PO SCH (23:55)
[2017-02-12 00:04] VITALS: BP 155/89; PULSE 66
[2017-02-12] MEDS: MIRTAZAPINE TAB 15 MG TAB PO PRN ×2 (01:18→23:17)
[2017-02-12] MEDS: NICOTINE 14 MG/24 HR TDSY TD SCH (09:00)
[2017-02-12 09:32] VITALS: BP 174/101; PULSE 73; TEMP 36.4
[2017-02-12] MEDS: ASPIRIN 81 MG ECTAB PO SCH (09:52)
[2017-02-12] MEDS: PANTOprazole SOD 40 MG TAB PO SCH (09:53)
[2017-02-12] MEDS: LISINOPRIL 10 MG TAB PO SCH (09:53)
[2017-02-12] MEDS: METOPROLOL TARTRATE 25 MG TAB PO SCH ×2 (09:53→20:49)
--- NOTE | 2017-02-12 13:12 | Psychiatric Progress Notes ---
Progress Note Date of Service February 12, 2017. Interval History 66-year-old gentleman admitted to our unit on a 302 involuntary commitment after making suicidal and homicidal statements to the Can help worker on . Chief Complaint "I miss my cat". Subjective Patient was seen & assessed interval progress reviewed with Nursing and 24hour chart reviewed The aptient was very down when I saw him yesterday afternoon, then early in the evening when provider was seeing other patinets he appeared jovial and was engaged with peers in conversation. Nursing noted that he seemed grumpy and irritable and down yesterday, then was pleasant in the evening. He continues to perseverate on wanting to go home, and adamant that he is not going to harm himself or his ex-GF or her new BF. He is insistent again today with this provider. He has limited insight on the shift in his affect, he does not seem energized or activated. He does interrupt provider at times but is not pressured and is redirectable, he is not grandiose. He felt reluctant to take sleep medication and so did not take it until 145am when he could not sleep then did not fal asleep until 330 or so, then slept to 9am or so. He did not feel groggy or unsteady this AM He denies feeling acutely anxious but continues to anticipate going home. MOCA - 22, missed 3d drawing, 3 of 5 words on recall, only 1 of 3 points on serial 7's, and not able to determine the similarity between a train and a bike. Given his complaint that he is not good with numbers, offered WORLD backwards in place of serial 7s and he gave DROLW He has a high school education "I went [employer], I never was good at school" Review of Systems Denies acute physical concerns other than poor sleep last night, no SE from the remeron 7.5mg, did help sleep eventually Sleep Information Total Hours of Sleep: 2.50 (remained in bed past change of shift wtih estimated 5.5-6h) Meal Information Percent of Breakfast Consumed: 0 Percent of Lunch Consumed: 75 Percent of Dinner Consumed: 100 Mental Status Exam During interview pt is: alert and oriented, cooperative Appearance: disheveled (wearing hospital gown) Eye contact is: good Motor behavior is: steady gait & station, no abnormal motor movements Speech: normal in rate, rhythm & volume Affect: anxious Mood is: depressed, anxious Thought process: goal directed (but does get circular and repetitive at times repeating concerns) Thought content: reality based without delusions Suicidal thought are: denied ("no, I just want to go home"), Plan: denied, Intent: denied Homicidal thoughts are: denied, Plan: denied (despite reports to use a baseball bat or a gun in the 302 petitioner statement), Intent: denied Hallucinations: denies auditory, denies visual Cognition: memory grossly intact, attention grossly intact, language grossly intact Intelligence estimated to be: below average Insight: limited Judgement: limited Impression 66-year-old gentleman admitted to our unit on a 302 involuntary commitment after making suicidal and homicidal statements to the can help worker. He does not see the seriousness of these statements, wanting only to see that he made them as a means of venting his feelings. He adamantly denies that he would ever act on these. I have explained to him the need to obtain supplemental information that would go toward his recent behaviors in state of mind. He is willing for us to contact his roommate Sher. He is willing for outpatient counseling and will have the medical social worker facilitate these appointments. We discussed an antidepressant in view of the fact he has been depressed since November however the patient reports his mood has been improving and does not want to consider medication at this time. We will likely keep him over the weekend to be sure that his presentation remains the same, allowing us time to get supplemental information and set up appointments. At this time, he requires inpatient mental health treatment due to the severity of his statements and the risk for harm to self and others if discharged. Plan (1) unspecified depressive disorder 02/10 - Obtain supplemental information from roommate Sher re: recent moods, SI, etc. - Q 15 min checks for safety - Encourage participation in group and individual counseling - Arrange for OP counseling - Specific threats were made to the [facility] worker, but not to me. Call [facility] to determine if they are carrying out a duty to warn today. - He is here on a 302. Will continue to gather information toward the need for ongoing inpatient care,. - Assist the patient to learn and utilize healthy coping strategies. 02/11 - reiterated need to observe his behavior matching his words and gathering collateral and arranging outpatient care as necessary aspects of his stay with possible discharge on Monday - will use remeron 7.5mg for sleep and although we are not starting it for mood, if he tolerates it, it may help his mood and off label help his anxiety as well he is aware of the role using it for sleep but the possible secondary gains of the medication if he tolerates it - nursing to perform Mini-Cog as patient is showing evidence of cognitive simplicity which may be his baseline but also may be early signs of cognitive impairment 02/12/17 - he has mild cognitive impairment by MOCA Test score 22, he fails on activities of attention and word recall and similarities which may be consistent with a longstanding attention concern or concreteness given his struggles in school growing up as a partial but not full explanation for some of the missed items. He should be screened in 6months to a year to compare results. -continue prn remeron 7.5mg for sleep, he declines scheduling it nightly and was are solely using it for sleep aid at this time (2) Essential hypertension 02/10 - Continue home doses of metoprlol, with hold parameters in view of today's low BP - Monitor BP 02/11 - hypotension 02/10 and then severe HTN 02/11/17, appreciate IM Consult recommendations and starting lisinopril 02/12/17 - BP is elevated this AM, will appreciate further IM recommendations (3) Dyslipidemia 02/10 - Continue home dose of atorvastatin (4) Gastroesophageal reflux disease 02/10 - Convert omeprazole to protonix (5) Tobacco dependence syndrome 02/10 - Counseled about detriments of smoking. Patient declines the offer of a nicotine patch or gum (6) Cannabis abuse 02/10 - Patient reports the he uses it for arthritis - REcommend abstinence and to see his PCP for eval - Has been reviewed with Dr. Racheal Lowe Discharge / Aftercare Planning Primary Care Physician: Name: Dr Savanah Soliz Phone Number: [phone] Appointment Notes: as needed Psychiatrist: Name: [facility] Dr José Phone Number: [phone] Date of Appointment: Mar 16, 2017 Time of Appointment: 900 Appointment Notes: . Therapist: Name: Dano Naqvi Phone Number: [phone] Manager Trade Marketing: Name: jenny Visit Code E&M Code: 12570 Inventory Assets Strengths: Care and concern for others, willing to engage in treatment Needs: Need to secure guns, get into outpatient therapy Risk Factors Assessment Male: Yes : Yes /single/: Yes Higher / Fall in social status: No Health problems: Yes Mental Health Diagnoses: No Substance use disorders: Yes (remote history of alcoholism) Previous attempt: No Previous psychiatric stay: No Protective Factors Assessment Scientologist beliefs: No : No Responsible for young children: No Employed: No Stable relationships: No Supportive family: No Data Vital Signs Last 24 Hrs: Date Time Temp Pulse Resp B/P Pulse Ox O2 Delivery O2 Flow Rate FiO2 02/12/17 09:32 36.4 73 16 174/101 02/12/17 00:04 66 155/89 02/11/17 21:22 76 18 188/77 Meds Administered Last 24 Hrs: Meds Administered (Past 24Hrs) Medications (Trade) Dose Ordered Sig/Dolly Route Start Time Stop Time Status Last Admin Dose Admin Lisinopril (Zestril Tab) 10 mg DAILY PO 02/12/17 09:00 03/14/17 08:59 02/12/17 09:53 10 MG Lisinopril (Zestril Tab) 10 mg 1046 ONCE PO 02/11/17 10:46 02/11/17 11:09 DC 02/11/17 11:51 10 MG Mirtazapine (Remeron Tab) 7.5 mg HS PRN PO 02/11/17 15:30 03/13/17 15:29 02/12/17 01:18 7.5 MG
--- NOTE | 2017-02-12 17:24 | Progress Note ---
Medicine Progress Note Date & Time of Visit: February 12, 2017 at 13:08. Subjective 66 yo M admitted to behavioral health unit for SI/HI -doing well today -tolerating PO -asymptomatic. Objective Last 8 Hrs Date Time Temp Pulse Resp B/P Pulse Ox O2 Delivery O2 Flow Rate FiO2 02/12/17 09:32 36.4 73 16 174/101 Physical Exam: GEN: WNWD, in no acute distress, alert and appropriate, eating lunch in the common area. HEENT: NC/AT, normal sclerae, MMM CARDIO: reg rate, S1/2 heard without m/g/r LUNGS: CTA bilaterally, no crackles, rales or wheezes, good diaphragmatic excursion ABD: soft, non-tender, non-distended, no rebound or guarding EXTREMITY: warm and well-perfused, no edema. NEURO: grossly intact throughout MUSC: ambulatory SKIN: warm and dry Laboratory Results: 02/09/17 14:15 Red Blood Count 2.96, Mean Corpuscular Volume 98.0, Mean Corpuscular Hemoglobin 30.4, Mean Corpuscular Hemoglobin Concent 31.0, Mean Platelet Volume 11.2, Neutrophils (%) (Auto) 67.9, Lymphocytes (%) (Auto) 18.8, Monocytes (%) (Auto) 8.9, Eosinophils (%) (Auto) 3.5, Basophils (%) (Auto) 0.6, Neutrophils # (Auto) 4.88, Lymphocytes # (Auto) 1.35, Monocytes # (Auto) 0.64, Eosinophils # (Auto) 0.25, Basophils # (Auto) 0.04 02/09/17 14:15 Test 02/09/17 14:15 02/09/17 14:30 White Blood Count 7.18 K/uL (4.8-10.8) Red Blood Count 2.96 M/uL (4.7-6.1) Hemoglobin 9.0 g/dL (14.0-18.0) Hematocrit 29.0 % (42-52) Mean Corpuscular Volume 98.0 fL (80-100) Mean Corpuscular Hemoglobin 30.4 pg (25-34) Mean Corpuscular Hemoglobin Concent 31.0 g/dl (32-36) Platelet Count 226 K/uL (130-400) Mean Platelet Volume 11.2 fL (7.4-10.4) Neutrophils (%) (Auto) 67.9 % Lymphocytes (%) (Auto) 18.8 % Monocytes (%) (Auto) 8.9 % Eosinophils (%) (Auto) 3.5 % Basophils (%) (Auto) 0.6 % Neutrophils # (Auto) 4.88 K/uL (1.4-6.5) Lymphocytes # (Auto) 1.35 K/uL (1.2-3.4) Monocytes # (Auto) 0.64 K/uL (0.11-0.59) Eosinophils # (Auto) 0.25 K/uL (0-0.5) Basophils # (Auto) 0.04 K/uL (0-0.2) RDW Standard Deviation 65.1 fL (36.4-46.3) RDW Coefficient of Variation 18.2 % (11.5-14.5) Immature Granulocyte % (Auto) 0.3 % Immature Granulocyte # (Auto) 0.02 K/uL (0.00-0.02) Urine Color YELLOW Urine Appearance CLEAR (CLEAR) Urine pH 8.0 (4.5-7.5) Urine Specific [place] 1.022 (1.000-1.030) Urine Protein 2+ (NEG) Urine Glucose (UA) NEG (NEG) Urine Ketones NEG (NEG) Urine Occult Blood NEG (NEG) Urine Nitrite NEG (NEG) Urine Bilirubin NEG (NEG) Urine Urobilinogen NEG (NEG) Urine Leukocyte Esterase TRACE (NEG) Urine WBC (Auto) 10-30 /hpf (0-5) Urine RBC (Auto) 0-4 /hpf (0-4) Urine Hyaline Casts (Auto) 5-10 /lpf (0-5) Urine Epithelial Cells (Auto) >30 /lpf (0-5) Urine Bacteria (Auto) NEG (NEG) Urine Renal Epithelial Cells 0-5 /lpf (0-5) Anion Gap 4.0 mmol/L (3-11) Est Creatinine Clear Calc Drug Dose 63.4 ml/min Estimated GFR () 81.8 Estimated GFR (Non- 70.6 BUN/Creatinine Ratio 16.0 (10-20) Calcium Level 8.1 mg/dl (8.5-10.1) Total Bilirubin 0.5 mg/dl (0.2-1) Direct Bilirubin 0.1 mg/dl (0-0.2) Aspartate Amino Transf (AST/SGOT) 15 U/L (15-37) Alanine Aminotransferase (ALT/SGPT) 22 U/L (12-78) Alkaline Phosphatase 81 U/L (45-117) Total Protein 9.3 gm/dl (6.4-8.2) Albumin 3.3 gm/dl (3.4-5.0) Thyroid Stimulating Hormone (TSH) 1.630 uIu/ml (0.300-4.500) Urine Opiates Screen NEG (NEG) Urine Methadone, Qualitative NEG (NEG) Urine Barbiturates NEG (NEG) Urine Phencyclidine (PCP) Level NEG (NEG) Ur Amphetamine/Methamphetamine NEG (NEG) MDMA (Ecstasy) Screen NEG (NEG) Urine Benzodiazepines Screen NEG (NEG) Urine Cocaine Metabolite NEG (NEG) Urine Marijuana (THC) POS (NEG) Ethyl Alcohol mg/dL < 3.0 mg/dl (0-3) Bedside Glucose 101 mg/dl (70-99) Assessment & Plan 66 yo M admitted to behavioral health unit for SI/HI 1. HTN-uncontrolled. He is on lisinopril at home at 10mg PO daily and reports compliance with this prior to coming in. Will add this back to daily regimen and adjust as needed over next couple of days. Cont other medications including Lopressor. 02/12: pt still is without cigarettes and has some emotional stressors being here and without his cat, etc. His BP improved a small amount but is not that much better. Plan for hydralazine for SBP readings >160mm Hg for now. I am concerned to adjust the lisinopril up too quickly. Will hold on the lisinopril 10mg and Lopressor for now. If still elevated in the morning would increase to 20mg PO daily. Changed diet to salt restricted which he should also comply with as outpatient. 2. CAD-on appropriate medical therapy for this including statin, ASA, Lopressor and now lisinopril. Plavix was stopped in Sep appropriately after two years and bare metal stent placement in 2014. He is stable and asymptomatic at this time. 3. Chronic anemia-being worked up as outpatient and he will need a GI workup which is being orchestrated by PCP. Asymptomatic. 4. GERD-cont PPI 5. Tobacco abuse-he is refusing nicotine replacement at this time; strongly encouraged smoking cessation ciara in setting of CAD and HTN DVT-pt ambulatory and, therefore, low risk so DVT not needed Full Code Winnie Patel DO [facility] Hospitalist Current Inpatient Medications: Current Inpatient Medications Medications (Trade) Dose Ordered Sig/Dolly Route Start Time Stop Time Status Last Admin Dose Admin Acetaminophen (Tylenol Tab) 650 mg Q4H PRN PO 02/09/17 18:45 03/11/17 18:44 02/11/17 19:48 650 MG Bismuth Subsalicylate (Kaopectate Liqd) 15 ml PRN PRN PO 02/09/17 18:45 03/11/17 18:44 Al Hydroxide/Mg Hydroxide (Maalox Susp) 30 ml Q4H PRN PO 02/09/17 18:45 03/11/17 18:44 Magnesium Hydroxide (Milk Of Magnesia Susp) 30 ml DAILY PRN PO 02/09/17 18:45 03/11/17 18:44 Sodium Chloride (Hytop Nasal [place]) PRN PRN NA 02/09/17 18:45 03/11/17 18:44 Hydroxyzine HCl (Vistaril Tab) 50 mg HSZ PRN PO 02/09/17 18:45 03/11/17 18:44 Hydroxyzine HCl (Vistaril Tab) 25 mg Q4H PRN PO 02/09/17 18:45 03/11/17 18:44 02/11/17 03:05 25 MG Nicotine (Nicoderm Cq 14MG Patch) 1 patch QAM TD 02/10/17 09:00 03/12/17 08:59 Miscellaneous (Remove Nicoderm Patch) 1 ea HS N/A 02/09/17 21:00 03/11/17 20:59 Aspirin (Ecotrin Tab) 81 mg DAILY PO 02/10/17 09:00 03/12/17 08:59 02/12/17 09:52 81 MG Atorvastatin Calcium (Lipitor Tab) 80 mg QPM PO 02/09/17 21:00 03/11/17 20:59 02/11/17 23:55 80 MG Metoprolol Tartrate (Lopressor Tab) 25 mg Q12 PO 02/09/17 21:00 03/11/17 20:59 02/12/17 09:53 25 MG Nitroglycerin (Nitrostat Tab) 0.4 mg UD PRN UT 02/09/17 19:00 03/11/17 18:59 Pantoprazole Sodium (Protonix Tab) 40 mg DAILY PO 02/10/17 09:00 03/12/17 08:59 02/12/17 09:53 40 MG Lisinopril (Zestril Tab) 10 mg DAILY PO 02/12/17 09:00 03/14/17 08:59 02/12/17 09:53 10 MG Mirtazapine (Remeron Tab) 7.5 mg HS PRN PO 02/11/17 15:30 03/13/17 15:29 02/12/17 01:18 7.5 MG
[2017-02-12] MEDS: ATORVASTATIN 40 MG TAB PO SCH (20:49)
[2017-02-12 21:51] VITALS: BP 157/79; PULSE 80
[2017-02-12] MEDS: hydrOXYzine HCL 25 MG TAB PO PRN (23:14)
[2017-02-13] MEDS: PANTOprazole SOD 40 MG TAB PO SCH (08:26)
[2017-02-13] MEDS: NICOTINE 14 MG/24 HR TDSY TD SCH (08:26)
[2017-02-13] MEDS: ASPIRIN 81 MG ECTAB PO SCH (08:26)
[2017-02-13] MEDS: METOPROLOL TARTRATE 25 MG TAB PO SCH (08:36)
[2017-02-13] MEDS: LISINOPRIL 10 MG TAB PO SCH (08:36)
[2017-02-13 08:41] VITALS: BP 183/97; PULSE 85; TEMP 36.8
--- NOTE | 2017-02-13 09:59 | Discharge Instructions ---
Discharge Information Report Includes Report will include the: Discharge Instructions & Summary Admission Admission Date / Time: February 09, 2017 at 18:47 Reason for Admission: Suicidal And Homicidal Ideation Discharge Discharge Diagnosis / Problem: Depression Condition at Discharge: Good Discharge Goals Goal(s): Decrease discomfort, Improve function, Prevent Disease Progression Activity Recommendations Activity Limitations: resume your previous activity . Instructions / Follow-Up Instructions / Follow-Up . SPECIAL CARE INSTRUCTIONS: 1. Follow through with your scheduled aftercare appointments. If unable to keep an appointment, please call to reschedule. 2. Take your medication only as prescribed. Medication should not be changed or stopped without the approval of your doctor. In the event of worsening symptoms or concerns about side effects, contact your doctor immediately. 3. Utilize new healthy coping skills, anger management skills, and stress management skills learned during your hospitalization. Journal feelings and process them with a support person. Identify stressors or situations that may result in relapse, deterioration or inappropriate behaviors and develop a plan to deal with those issues. 4. If your coping skills are ineffective and you are in crisis, contact your outpatient providers for direction. If unable to reach your providers, please call the CAN HELP LINE AT or go to the closest Emergency Room. 5. Avoid alcohol and un-prescribed drugs. 6. You have been provided with the Mental Health Advance Directives Pamphlet for your review. AFTERCARE APPOINTMENTS: * Please call your insurance company prior to your scheduled appointment to confirm your aftercare providers are covered. Take your insurance information to your appointments. . Discharge / Aftercare Planning Primary Care Physician: Name: Dr Savanah Soliz Phone Number: [phone] Appointment Notes: as needed Psychiatrist: Name: [facility] Dr José Phone Number: [phone] Date of Appointment: Mar 16, 2017 Time of Appointment: 900 Appointment Notes: . Therapist: Name Of Therapist: Dano Naqvi Phone Number: [phone] [place] [place]: Name: jenny . Follow-Up Care Plan for Follow-Up Care: The patient has a follow-up appointment with [facility] for psychiatry and therapy Current Hospital Diet Patient's current hospital diet: Low Sodium Diet (2gm Na) Discharge Diet Recommended Diet: Low Sodium Diet (2gm Na) Procedures Procedures Performed: No Pending Studies Pending Studies at Discharge: No Medical Emergencies . Who to Call and When: Medical Emergencies: For questions or emergencies related to your hospital stay, please contact the Inpatient Behavioral Health Unit at [phone]. A drop wire aliner is on-call 17/04 for the Behavioral Health Unit for emergencies At any time you feel your situation is an emergency, you may also call 911 immediately. . Non-Emergent Contact Non-Emergency issues call your: Psychiatrist, Therapist Advance Directives Existing Advance Directive: No Do You Have an Existing Mental: No Existing Living Will: No Existing Power of Sheet Metal Worker: No Advance Directives Info Given: To Pt/S.O. Advance Directives Reason: Declines as Mental Health Visit. Discharge Summary Admission HPI Per the Admitting provider: The patient is a 66-year-old male with no past psychiatric history, who reports that he was completely misunderstood by the can help worker when he called her to "vent" yesterday. He admits that he has been depressed for years, since his third , Mame, from cancer. He felt that she was his one true love and admits to having had suicidal ideation intermittently since then. More recently, he had been in a relationship with a woman whose name is Greta. They have been together for 6 or 7 years. On December 16, she ended their relationship because she was going to be with another man. He said that he he "hurt deep". He had thoughts to kill himself and her boyfriend for "taking Greta away from me ". He never acted on these thoughts. Since November he feels like his mood has steadily been improving. He says he even had plans to go out on a date with another woman which he was looking forward to. He has continued to have intermittent thoughts of suicide and apparently homicidality. Yesterday, he called the can help worker hoping to talk to Jeaneth, someone he has talked with on mobile crisis twice before. He said he has been trying to get into some outpatient counseling which has not yet happened. Yesterday, he he called can help and they sent out a different mobile care worker. He describes her as having been "mean" and misinterpreted all of his statements. According to the 302 petition her statement, the patient indicated that he has had ongoing thoughts of suicide, thinking about riding his motorcycle into traffic to kill himself. He reported to her that he was also having ongoing intrusive thoughts to kill the man that stole his girlfriend. He was specific enough to say that he would use a baseball bat and if that didn't work he would use a gun. He said he had access to multiple guns. He admitted to being mean or lately and also went on to make provocative statements that if he was getting killed one person he might as well kill other people such as Laisha and Mami due to screwing him over on an inheritance. The patient admits that he said some of these things but says that he never meant to follow through and that he was just venting. Today the patient admits that his mood is been depressed and that he has had suicidal and homicidal thoughts but denies he has ever acted on them and says he would never act on them. He reports that his sleep is been "all right". His appetite has been "okay". His energy is "getting better" and he has been working around the house and has many projects lined up. He denies that he has ever experienced auditory or visual hallucinations. He doesn't endorse chronic worry, worrying about other people. He currently has his best friend, Sher, living with him for the last 2 months because Sher himself was going through a divorce. The patient willingly says that he will provide hSer's number so that we can get additional information from him. Brian denies that he is ever engaged in self-injurious behaviors. He denies any discrete episodes of euphoric mood, sleeplessness or pleasure seeking behaviors that would be congruent with a bipolar disorder. Hospital Course (1) unspecified depressive disorder 02/10 - Obtain supplemental information from roommate Sher re: recent moods, SI, etc. - Q 15 min checks for safety - Encourage participation in group and individual counseling - Arrange for OP counseling - Specific threats were made to the Can Help worker, but not to me. Call Can Help to determine if they are carrying out a duty to warn today. - He is here on a 302. Will continue to gather information toward the need for ongoing inpatient care,. - Assist the patient to learn and utilize healthy coping strategies. 02/11 - reiterated need to observe his behavior matching his words and gathering collateral and arranging outpatient care as necessary aspects of his stay with possible discharge on Monday - will use remeron 7.5mg for sleep and although we are not starting it for mood, if he tolerates it, it may help his mood and off label help his anxiety as well he is aware of the role using it for sleep but the possible secondary gains of the medication if he tolerates it - nursing to perform Mini-Cog as patient is showing evidence of cognitive simplicity which may be his baseline but also may be early signs of cognitive impairment 02/12/17 - he has mild cognitive impairment by MOCA Test score 22, he fails on activities of attention and word recall and similarities which may be consistent with a longstanding attention concern or concreteness given his struggles in school growing up as a partial but not full explanation for some of the missed items. He should be screened in 6months to a year to compare results. -continue prn remeron 7.5mg for sleep, he declines scheduling it nightly and was are solely using it for sleep aid at this time (2) Essential hypertension 02/10 - Continue home doses of metoprlol, with hold parameters in view of today's low BP - Monitor BP 02/11 - hypotension 02/10 and then severe HTN 02/11/17, appreciate IM Consult recommendations and starting lisinopril 02/12/17 - BP is elevated this AM, will appreciate further IM recommendations (3) Dyslipidemia 02/10 - Continue home dose of atorvastatin (4) Gastroesophageal reflux disease 02/10 - Convert omeprazole to protonix (5) Tobacco dependence syndrome 02/10 - Counseled about detriments of smoking. Patient declines the offer of a nicotine patch or gum (6) Cannabis abuse 02/10 - Patient reports the he uses it for arthritis - REcommend abstinence and to see his PCP for eval - Risk Factors Assessment Male: Yes : Yes /single/: Yes Higher / Fall in social status: No Health problems: Yes Mental Health Diagnoses: No Substance use disorders: Yes (remote history of alcoholism) Previous attempt: No Previous psychiatric stay: No Protective Factors Assessment Temple beliefs: No : No Responsible for young children: No Employed: No Stable relationships: No Supportive family: No Day of Discharge Assessment COURSE OF HOSPITALIZATION: The patient was admitted to our unit on a 302 involuntary commitment after having made suicidal and homicidal statements. After admission he denied that he would act on those things saying he was just "venting". He was unhappy about being in the hospital but over the course of the 4 days was able to realize the benefits of counseling, learning new coping strategies, and getting set up in outpatient therapy. This was his hope prior to admission, having called can help several times, he wanted them to set him up with outpatient counseling. He refused medications during his stay, not thinking that he needed that, saying that he was getting better since the breakup with his girlfriend even without medications. He was provided low dose Remeron to help with his sleep while he was in the hospital, but declined a prescription for home saying he sleeps just fine. He denied any further thoughts of suicide, homicide. Duty to warn his ex girlfriend and her new boyfriend have been undertaken in view of the facts that he made specific threats against them. As of this morning we have been unable to get in touch with them however if we cannot get a return call, we will have the police execute that duty to warn. He did not meet criteria for any further involuntary stay and the patient wished for discharge. DAY OF DISCHARGE ASSESSMENT: Today the patient is requesting discharge. He feels that it has been a good stay, he has learned a lot. He is looking forward outpatient counseling. His friend Sher, who currently lives with him , will be able to pick him up today. He continues to say he does not need medications, and has a safety plan in the event he should become suicidal again. We discuss the fact that all suicidal and homicidal statements will always be taken seriously. Today he is dressed in a hospital gown, wrapped in a blanket. He is somewhat disheveled with little attention paid to his grooming. His gait and station are within normal limits. Eye contact is good. Affect is anxious. Speech is of normal rate volume and tone. Thoughts are organized, goal directed, and without evidence of thought disorder. Recent and remote memory are intact per conversation. Intelligence is estimated to be average. Insight and judgment are improved over admission. Laboratory Test 02/09/17 14:15 02/09/17 14:30 White Blood Count 7.18 Red Blood Count 2.96 Hemoglobin 9.0 Hematocrit 29.0 Mean Corpuscular Volume 98.0 Mean Corpuscular Hemoglobin 30.4 Mean Corpuscular Hemoglobin Concent 31.0 Platelet Count 226 Mean Platelet Volume 11.2 Neutrophils (%) (Auto) 67.9 Lymphocytes (%) (Auto) 18.8 Monocytes (%) (Auto) 8.9 Eosinophils (%) (Auto) 3.5 Basophils (%) (Auto) 0.6 Neutrophils # (Auto) 4.88 Lymphocytes # (Auto) 1.35 Monocytes # (Auto) 0.64 Eosinophils # (Auto) 0.25 Basophils # (Auto) 0.04 RDW Standard Deviation 65.1 RDW Coefficient of Variation 18.2 Immature Granulocyte % (Auto) 0.3 Immature Granulocyte # (Auto) 0.02 Urine Color YELLOW Urine Appearance CLEAR Urine pH 8.0 Urine Specific Coats 1.022 Urine Protein 2+ Urine Glucose (UA) NEG Urine Ketones NEG Urine Occult Blood NEG Urine Nitrite NEG Urine Bilirubin NEG Urine Urobilinogen NEG Urine Leukocyte Esterase TRACE Urine WBC (Auto) 10-30 Urine RBC (Auto) 0-4 Urine Hyaline Casts (Auto) 5-10 Urine Epithelial Cells (Auto) >30 Urine Bacteria (Auto) NEG Urine Renal Epithelial Cells 0-5 Sodium Level 139 Potassium Level 3.5 Chloride Level 106 Carbon Dioxide Level 29 Anion Gap 4.0 Blood Urea Nitrogen 18 Creatinine 1.10 Est Creatinine Clear Calc Drug Dose 63.4 Estimated GFR () 81.8 Estimated GFR (Non- 70.6 BUN/Creatinine Ratio 16.0 Random Glucose 94 Calcium Level 8.1 Total Bilirubin 0.5 Direct Bilirubin 0.1 Aspartate Amino Transferase (AST) 15 Alanine Aminotransferase (ALT) 22 Alkaline Phosphatase 81 Total Protein 9.3 Albumin 3.3 Thyroid Stimulating Hormone (TSH) 1.630 Urine Opiates Screen NEG Urine Methadone, Qualitative NEG Urine Barbiturates NEG Urine Phencyclidine (PCP) Level NEG Ur Amphetamine/Methamphetamine NEG MDMA (Ecstasy) Screen NEG Urine Benzodiazepines Screen NEG Urine Cocaine Metabolite NEG Urine Marijuana (THC) POS Urine Marijuana (THC Carboxy Acid) Pending Ethyl Alcohol mg/dL < 3.0 POC Glucose 101 Total Time Total Time Spent (min): Greater than 30 minutes Total Time Included: examination of the patient, discharge planning, medication reconciliation, communication with other providers Tobacco Cessation at Discharge Smoking Status: Current Every Day Smoker FDA approved Prescription: declined med & out pt counseling
[2017-02-13 12:00] VITALS: BP 165/96; PULSE 83
[2017-02-13] MEDS ORDERED: LISINOPRIL 10 MG TAB PO ONE (12:00)
[2017-02-14] MEDS ORDERED: LISINOPRIL 20 MG TAB PO SCH (09:00)
[2017-05-16] MEDS ORDERED: PANT40TA PO (09:09)
[2017-05-16] MEDS ORDERED: METO25TA56 PO (09:09)
== END 2017-02-13 12:52 | disposition home or self-care (01) | DRG 881 ==
LOC: EDBD 14:00 → C.EDA 14:01 → C.MHU 18:47
PROVIDERS: ADMIT Psychiatry & Neurology Psychiatry; ATTEND Psychiatry & Neurology Psychiatry
DX: F32.9 Major depressive disorder, single episode, unspecified (principal); R45.851 Suicidal ideations; I10 Essential (primary) hypertension; E87.5 Hyperkalemia; K21.9 Gastro-esophageal reflux disease without esophagitis; F17.210 Nicotine dependence, cigarettes, uncomplicated; I25.10 Atherosclerotic heart disease of native coronary artery without angina pectoris; R45.850 Homicidal ideations; J44.9 Chronic obstructive pulmonary disease, unspecified; F12.10 Cannabis abuse, uncomplicated; D64.9 Anemia, unspecified; I25.2 Old myocardial infarction; Z79.82 Long term (current) use of aspirin; Z79.899 Other long term (current) drug therapy; Z95.5 Presence of coronary angioplasty implant and graft; Z86.59 Personal history of other mental and behavioral disorders; Z87.09 Personal history of other diseases of the respiratory system

== ENCOUNTER → 2017-05-23 | Day surgery (SDC) | payer OTHER ==
[2017-05-16 09:11] VITALS: Ht 170.2 cm; Wt 74.1 kg
[~2017-05-23] VITALS: Ht 170.2 cm; Wt 74.1 kg
[~2017-05-23] MED LIST changes: -ASPEC81 PO; +ASPI81TA28 PO; +ATOR-26 PO; +LIDOCAINE HCL 2% 2 ML VIAL (20MG/ML) ONE; +LISI-461 PO; -LPR25 PO; -LPT40 PO; -LSN5 PO; +METO25TA56 PO; +PANT40TA PO; -PLV75 PO; -PRLSR20 PO; +PROPOFOL IV EMULSION 10 MG/ML 20 ML VIAL IV ONE; +SODIUM CHLORIDE 0.9% 500ML 500 ML IV ONE
[2017-05-23 11:06] VITALS: TEMP 36.3
--- NOTE | 2017-05-23 11:32 | Endo History and Physical ---
History & Physical Date of Service: May 23, 2017. Chief Complaint: IRON DEFICIENCY ANEMIA, GERD Referring Physician: DR HARMAN History of Present Illness iron def anemia Past Medical History Angioplasty/Stent, Hypertension, CA Past Surgical History Hx Cardiac Surgery: Yes (HEART CATH, STENT X1) Hx Internal Defibrillator: No Hx Pacemaker: No Hx Abdominal Surgery: Yes (CHELLY) Hx of Implantable Prosthesis: No Hx Post-Op Nausea and Vomiting: No Hx Cancer Surgery: No Hx Thoracic Surgery: No Hx Orthopedic: Yes (LT ANKLE SURGERY) Hx Urinary Tract Surgery: No Family History None Social History Smoking Status: Current Every Day Smoker Hx Substance Use: Yes (MARIJUANA WEEKLY) Hx Alcohol Use: Yes (QUIT ) Allergies Coded Allergies: NO KNOWN DRUG ALLERGIES (Verified Allergy, Unknown, ., 05/23/17) Shellfish (Verified Allergy, Unknown, HIVES, 05/23/17) Current Medications Reported Home Medications Medications Dose Route/Sig Max Daily Dose Days Date Category Lopressor (Metoprolol Tartrate) 25 Mg Tab 25 Mg PO BID 05/16/17 Reported Protonix (Pantoprazole Sodium) 40 Mg Tab 40 Mg PO QAM 05/16/17 Reported Lisinopril 10 Mg Tab 10 Mg PO QAM 02/11/17 Reported Aspirin Ec (Aspirin) 81 Mg Tab 81 Mg PO QPM 02/09/17 Reported Lipitor (Atorvastatin Calcium) 80 Mg Tab 80 Mg PO QPM 02/09/17 Reported Nitrostat (Nitroglycerin) 0.4 Mg Tab 0.4 Mg UT PRN PRN 01/05/15 Reported Vital Signs Weight (Kilograms): 74.09 Height (Feet): 5 Height (Inches): 7 Date Time Temp Pulse Resp B/P (MAP) Pulse Ox O2 Delivery O2 Flow Rate FiO2 05/23/17 11:06 36.3 81 20 144/87 (106) 94 Room Air Physical Exam General Appearance: no apparent distress Respiratory/Chest: Auscultation: rhonchi Cardiovascular: Heart Auscultation: RRR Abdomen: Inspection & Palpation: soft Liver: non-tender Assessment and Plan stable for EGD/[place]
--- NOTE | 2017-05-23 12:09 | Discharge Instructions ---
Endoscopy Patient Instructions Date / Procedure(s) Performed May 23, 2017. Colonoscopy, EGD Allergy Information Coded Allergies: NO KNOWN DRUG ALLERGIES (Verified Allergy, Unknown, ., 05/23/17) Shellfish (Verified Allergy, Unknown, HIVES, 05/23/17) Discharge Date / Findings May 23, 2017. colon polyps removed Provider Instructions Activity Restrictions - No exercising or heavy lifting for 24 hours. - Do not drink alcohol the day of the procedure. - Do not drive a car or operate machinery until the day after the procedure. - Do not make any important decisions or sign important papers in 24 hours after the procedure. Following Day: - Return to full activity which may include returning to work/school. Diet Start your diet with liquids and light foods (jello, soup, juice, toast). Then eat your usual diet if not nauseated. Treatment For Common After Affects For mild abdominal pain, bloating, or excessive gas: - Rest - Eat lightly - Lie on right side Follow-Up Information Follow-up with DR HARMAN as scheduled Anesthesia Information What You Should Know You have had a procedure that required some medicine to reduce anxiety and discomfort. This treatment is called moderate sedation. After receiving the treatment, you may be sleepy, but you will be able to breathe on your own. The effects of the treatment may last for several hours. Follow these instructions along with Activity/Diet recommendations noted above: * Do NOT do anything where dizziness or clumsiness would be dangerous. * Rest quietly at home today, then you can be up and about tomorrow. * Have a responsible person stay with you the rest of today. * You may have had an I.V. today. If so, you may take the dressing off later today. Recommendations Call your doctor if: * Trouble breathing * Continuous vomiting for more than 24 hours * Temperature above 101 degrees * Severe abdominal pain or bloating * Pain not relieved by pain medicine ordered * There is increased drainage or redness from any incision * A large amount of rectal bleeding greater than 2-3 tablespoons. (If you had a polyp/s removed or have hemorrhoids, a small amount of blood - from the rectum is to be expected.) * You have any unanswered questions or concerns. IN THE EVENT OF A SERIOUS EMERGENCY, GO TO THE NEAREST EMERGENCY ROOM Your discharge instructions were prepared by provider Joseph Curry. Patient Instructions Signature Page Brian Salinas Patient (or Guardian) Signature/Date: I have read and understand the instructions given to me by my caregivers. Caregiver/RN/Doctor Signature/Date: The above-named patient and/or guardian has received patient instructions on this date. + Original Patient Signature Page (only) stays with chart. Please make copy for patient.
--- NOTE | 2017-05-23 12:19 | GI REPORT ---
Procedure Date: 05/23/2017 11:35 AM Procedure: Upper GI endoscopy Indications: Iron deficiency anemia Medicines: See the Anesthesia note for documentation of the administered medications Complications: No immediate complications. Estimated Blood Loss: Estimated blood loss: none. Procedure: Pre-Anesthesia Assessment: - Prior to the procedure, a History and Physical was performed, and patient medications, allergies and sensitivities were reviewed. The patient's tolerance of previous anesthesia was reviewed. - The risks and benefits of the procedure and the sedation options and risks were discussed with the patient. All questions were answered and informed consent was obtained. - Patient identification and proposed procedure were verified prior to the procedure by the physician and the nurse. The procedure was verified in the pre-procedure area. - Pre-procedure physical examination revealed no contraindications to sedation. - After reviewing the risks and benefits, the patient was deemed in satisfactory condition to undergo the procedure. After obtaining informed consent, the endoscope was passed under direct vision. Throughout the procedure, the patient's blood pressure, pulse, and oxygen saturations were monitored continuously. The On-site loaner was introduced through the mouth, and advanced to the third part of duodenum. The upper GI endoscopy was accomplished without difficulty. The patient tolerated the procedure well. Findings: The esophagus was normal. The stomach was normal. The examined duodenum was normal. The cardia and gastric fundus were normal on retroflexion. Impression: - Normal esophagus. - Normal stomach. - Normal examined duodenum. - No specimens collected. Recommendation: - Perform a colonoscopy today. Joseph Curry M.D. Joseph Curry MD 05/23/2017 12:19:21 PM This report has been signed electronically. Note Initiated On: 05/23/2017 11:35 AM I attest to the content of the Intraoperative Record and orders documented therein, exceptions below
--- NOTE | 2017-05-23 12:22 | GI REPORT ---
Procedure Date: 05/23/2017 11:35 AM Procedure: Colonoscopy Indications: Iron deficiency anemia Medicines: See the Anesthesia note for documentation of the administered medications Complications: No immediate complications. Estimated Blood Loss: Estimated blood loss was minimal. Procedure: Pre-Anesthesia Assessment: - See the other procedure note for documentation of the pre-procedure assessment. After I obtained informed consent, the scope was passed under direct vision. Throughout the procedure, the patient's blood pressure, pulse, and oxygen saturations were monitored continuously. The scope was introduced through the anus and advanced to the cecum, identified by appendiceal orifice and ileocecal valve. The colonoscopy was performed without difficulty. The patient tolerated the procedure well. The quality of the bowel preparation was good. Findings: The perianal and digital rectal examinations were normal. A 5 mm polyp was found at 40 cm proximal to the anus. The polyp was sessile. The polyp was removed with a cold snare. Resection and retrieval were complete. Verification of patient identification for the specimen was done by the physician and nurse using the patient's name and medical record number. Estimated blood loss was minimal. A 15 mm polyp was found at 20 cm proximal to the anus. The polyp was pedunculated. The polyp was removed with a hot snare. Resection and retrieval were complete. Verification of patient identification for the specimen was done by the physician and nurse using the patient's name and medical record number. Estimated blood loss: none. Many small-mouthed diverticula were found in the sigmoid colon. No additional abnormalities were found on retroflexion. Impression: - One 5 mm polyp at 40 cm proximal to the anus, removed with a cold snare. Resected and retrieved. - One 15 mm polyp at 20 cm proximal to the anus, removed with a hot snare. Resected and retrieved. - Diverticulosis in the sigmoid colon. Recommendation: - Await pathology results. - Discharge patient to home. Joseph Curry M.D. Joseph Curry MD 05/23/2017 12:21:39 PM This report has been signed electronically. Note Initiated On: 05/23/2017 11:35 AM I attest to the content of the Intraoperative Record and orders documented therein, exceptions below
[2017-05-23 12:39] VITALS: BP 134/89; PULSE 60; O2SAT 99
--- NOTE | 2017-05-23 12:44 | Anesthesiology Progress Note ---
Anesthesia Post Op Note Date & Time May 23, 2017 at 12:43 Vital Signs Pain Intensity: 0 Vital Signs Past 12 Hours Date Time Temp Pulse Resp B/P (MAP) Pulse Ox O2 Delivery O2 Flow Rate FiO2 05/23/17 12:39 60 18 134/89 (104) 99 Room Air 05/23/17 12:24 61 18 124/84 (97) 98 Nasal Cannula 2 05/23/17 12:09 63 16 111/72 (85) 93 Nasal Cannula 6 05/23/17 11:06 36.3 81 20 144/87 (106) 94 Room Air Notes Mental Status: alert / awake / arousable, participated in evaluation Pt Amnestic to Procedure: Yes Nausea / Vomiting: adequately controlled Pain: adequately controlled Airway Patency, RR, SpO2: stable & adequate BP & HR: stable & adequate Hydration State: stable & adequate Anesthetic Complications: no major complications apparent
== END | disposition home or self-care (01) ==
LOC: C.GI 10:08
PROVIDERS: ATTEND Internal Medicine Gastroenterology
DX: D50.9 Iron deficiency anemia, unspecified (principal); K62.1 Rectal polyp; K21.9 Gastro-esophageal reflux disease without esophagitis; K57.30 Diverticulosis of large intestine without perforation or abscess without bleeding; Z95.5 Presence of coronary angioplasty implant and graft; I10 Essential (primary) hypertension; I25.2 Old myocardial infarction; Z90.49 Acquired absence of other specified parts of digestive tract; F17.200 Nicotine dependence, unspecified, uncomplicated; Z79.82 Long term (current) use of aspirin; J44.9 Chronic obstructive pulmonary disease, unspecified; M19.90 Unspecified osteoarthritis, unspecified site; Z87.442 Personal history of urinary calculi; F41.9 Anxiety disorder, unspecified; F32.9 Major depressive disorder, single episode, unspecified

== ENCOUNTER 2019-09-29 16:32 | Inpatient (IN) ==
--- OUTSIDE RECORDS SUMMARY | 2019-09-29 16:34 | External Medical Summary | Continuity of Care Document ---
:1950 Author Name Jr Trujillo Address Unavailable Unavailable , Care Team Providers Name Role Phone Horace [email or web address] ANNIE Unavailable Unavailable Problems Pancreatitis (577.0) (K85.90) Allergies and Adverse Reactions Allergy history not documented Medications Medications not documented Procedures Procedures not documented Immunizations Immunizations not documented Family History Unknown Family Member Family history of No Significant Family Status: Active Comments: Family History History Social History - Smoking Status Smoker. current status unknown Plan of Treatment Planned Observations Planned Goals not documented Results No Known Results Results not documented
--- OUTSIDE RECORDS SUMMARY | 2019-09-29 16:34 | External Medical Summary | Continuity of Care Document ---
:1950 Author Name Jr Trujillo Address Unavailable Unavailable , Care Team Providers Name Role Phone Horace [email or web address] ANNIE Unavailable Unavailable Problems Pancreatitis (577.0) (K85.90) [...]
[2019-09-29] MEDS ORDERED: SODIUM CHLORIDE 0.9% 1000ML 1,000 ML IV ONE ×3 (16:56→22:00)
--- NOTE | 2019-09-29 17:19 | XRay Report ---
XR chest 1V portable CLINICAL HISTORY: SEPSIS COMPARISON STUDY: 02/13/2017 FINDINGS: Infiltrate right base. Mild cardiac enlargement. Lungs otherwise appear clear. IMPRESSION: Infiltrate right base. ACT 112: Negative or not required by law. The above report was generated using voice recognition software. It may contain grammatical, syntax or spelling errors. Electronically signed by: Octavio Dobbs M.D. 09/29/2019 5:17 PM
--- NOTE | 2019-09-29 17:35 | Emergency Department Note ---
Entered by Jung Nielsen acting as a scribe for Henry Delgado MD History of Present Illness General Chief complaint: Flu Like Symptoms Stated complaint: FLU Time Seen by Provider: 09/29/19 16:49 Source: patient Limitations: no limitations History of Present Illness Onset (ago): day(s) 3 Location: head Pain Consistency: + constant Maximum Pain Intensity: 3 Quality: + aching Associated symptoms: + denies other symptoms (pain or swelling in calves, burning with urination, abdominal pain), + fever/chills and + other (sore throat); no chest pain and no headaches The patient is a 69 year old male who presents to the Emergency Room with complaints of flu-like symptoms starting 3 days ago. The patient's states the patient has only eaten a grilled cheese in the past 3 days. The patient states he has not eaten much because he cannot taste anything. The states the patient had a 102.7 fever at 1500. The patient states he has been achy and has had a sore throat. He states he intermittently gets chest pain and abdominal pain. He states he feels stuffy. He states he has been having chills. The patient denies having headaches, burning with urination, ear pain, and pain or swelling in his calves. He states he has been urinating a small amount. He states he did not get a flu shot. He states his PCP is Dr. Broussard. Home Medications Home Medications Medication Instructions Recorded Confirmed Type aspirin 81 mg PO DAILY 09/29/19 09/29/19 History atorvastatin 80 mg PO QPM 09/29/19 09/29/19 History ferrous sulfate 325 mg PO BID 09/29/19 09/29/19 History lisinopril 20 mg PO DAILY 09/29/19 09/29/19 History metoprolol tartrate 25 mg PO BID 09/29/19 09/29/19 History nitroglycerin 0.4 mg SUBLINGUAL DAILY PRN 09/29/19 09/29/19 History pantoprazole 40 mg PO DAILY 09/29/19 09/29/19 History Allergies Allergy/AdvReac Type Severity Reaction Status Date / Time No Known Drug Allergies Allergy Unknown . Verified 09/29/19 17:57 shellfish derived Allergy Unknown HIVES Verified 09/29/19 17:57 Past Med/Surg History Medical History (Updated 09/29/19 @ 21:29 by Arsalan Islas MD) Acute recurrent pancreatitis (Acute Unknown) COPD (chronic obstructive pulmonary disease) (Chronic) STEMI (ST elevation myocardial infarction) (Acute) Family History Other Family history non-contributory Social History Preferred Language: Czech Communication Ability: Effective Beliefs That Will Affect Care: None Current Living Situation: Spouse Other Information That Helps Us Care for You: No Feels Safe at Home: Yes Safety Concerns: Feels Safe At This Time Smoking Status: Current every day smoker Tobacco Type: cigars ; Do You Dip or Chew Tobacco: No ; Second Hand Exposure: No ; Tobacco Cessation Education Requested by Patient: No Hx Alcohol Use: Yes Hx Substance Use: No Review of Systems See HPI for pertinent positives & negatives. and A total of 10 systems reviewed and were otherwise negative Physical Exam Vital Signs Vital Signs - 24 hr 09/29/19 16:37 09/29/19 17:16 09/29/19 17:26 Temperature 37.8 C H Temperature Source Oral Pulse Rate 94 H Pulse Rate [Left Finger] 90 Pulse Rate from SpO2 Sensor Respiratory Rate 20 20 Respiratory Effort / Characteristics Non-Labored Spontaneous Non-Labored Spontaneous Respiratory Depth Normal Normal Respiratory Pattern Regular Blood Pressure 147/85 H Blood Pressure [Left Arm] 154/83 H Blood Pressure Mean 105 Blood Pressure Mean [Left Arm] 106 Blood Pressure Position Sitting Blood Pressure Position [Left Arm] Lying Pulse Oximetry 95 95 94 Oxygen Delivery Method Room Air Room Air Room Air Sepsis Recent Fever Within 48 Hours No Sepsis New/Unexplained Change in Mental Status No Sepsis Action Taken by Nursing No Action Required 09/29/19 17:35 09/29/19 17:56 09/29/19 18:00 Temperature Temperature Source Pulse Rate Pulse Rate [Left Finger] 90 91 H Pulse Rate from SpO2 Sensor Respiratory Rate 28 H 28 H Respiratory Effort / Characteristics Spontaneous Spontaneous Respiratory Depth Normal Normal Respiratory Pattern Regular Regular Blood Pressure Blood Pressure [Left Arm] 138/79 140/84 Blood Pressure Mean Blood Pressure Mean [Left Arm] 98 102 Blood Pressure Position Blood Pressure Position [Left Arm] Lying Lying Pulse Oximetry 95 92 92 Oxygen Delivery Method Room Air Room Air Room Air Sepsis Recent Fever Within 48 Hours Sepsis New/Unexplained Change in Mental Status Sepsis Action Taken by Nursing 09/29/19 18:41 09/29/19 19:15 09/29/19 19:30 Temperature Temperature Source Pulse Rate 96 H Pulse Rate [Left Finger] 94 H 93 H Pulse Rate from SpO2 Sensor Respiratory Rate 20 24 25 H Respiratory Effort / Characteristics Respiratory Depth Respiratory Pattern Blood Pressure 144/86 H Blood Pressure [Left Arm] 146/83 H Blood Pressure Mean 104 Blood Pressure Mean [Left Arm] 104 Blood Pressure Position Blood Pressure Position [Left Arm] Lying Pulse Oximetry 93 92 Oxygen Delivery Method Room Air Room Air Sepsis Recent Fever Within 48 Hours Sepsis New/Unexplained Change in Mental Status Sepsis Action Taken by Nursing 09/29/19 20:00 Temperature Temperature Source Pulse Rate 92 H Pulse Rate [Left Finger] Pulse Rate from SpO2 Sensor 92 H Respiratory Rate 32 H Respiratory Effort / Characteristics Respiratory Depth Respiratory Pattern Blood Pressure 130/77 Blood Pressure [Left Arm] Blood Pressure Mean 93 Blood Pressure Mean [Left Arm] Blood Pressure Position Blood Pressure Position [Left Arm] Pulse Oximetry 92 Oxygen Delivery Method Sepsis Recent Fever Within 48 Hours Sepsis New/Unexplained Change in Mental Status Sepsis Action Taken by Nursing General: Mildly-ill appearing older male who has a frequent cough. HEENT: Normal cephalic atraumatic. Pupils are equal round and reactive to light. Extraocular movements are intact. Oropharynx is pink with moist mucous membranes. No swelling of the mouth lips or tongue. Yellow-green discharge in right eye. Neck: Supple with a midline trachea. No meningeal signs or stiffness, no JVD or bruits. No Stridor. Chest: Clear to auscultation bilaterally. No wheezes or rhonchi. No increased work of breathing. Heart: regular rate and rhythm. Abdomen: Soft nontender, nondistended without rebound guarding or rigidity. Extremities: No cyanosis clubbing or edema. No calf tenderness or asymmetry Spine/Back. Non tender to palpation. No CVA tenderness Skin: Good turgor without rashes. Neurologic exam: Cranial nerves two through 12 are intact. Motor and sensation are intact and symmetrical throughout. Course Course 1650: The patient was evaluated in room C6, and a complete history and physical examination were performed. 1907: I discussed the patient's case with Dr. Janel Esqueda Hospitalist. He will evaluate the patient for further management Administered Medications Guaifenesin (Organidin Nr) 200 mg PO Q8H EZEKIEL Stop: 10/29/19 21:59 Last Admin: 09/29/19 22:49 Dose: 200 mg Documented by: [id number] Doxycycline Hyclate 100 mg/ (Dextrose) 110 mls @ 50 mls/hr IV Q12H EZEKIEL Stop: 10/06/19 21:59 Last Admin: 09/29/19 23:10 Dose: 50 mls/hr Documented by: [id number] Sodium Chloride (Nss 1000ml) 1,000 mls @ 100 mls/hr IV .Q10H ONE Stop: 09/30/19 07:59 Last Admin: 09/29/19 22:59 Dose: 100 mls/hr Documented by: [id number] Metoprolol Tartrate (Lopressor) 25 mg PO BID EZEKIEL Stop: 10/29/19 21:43 Last Admin: 09/29/19 22:50 Dose: 25 mg Documented by: [id number] Discontinued Medications Acetaminophen (Tylenol) 650 mg PO NOW STA Stop: 09/29/19 19:02 Last Admin: 09/29/19 19:16 Dose: 650 mg Documented by: [id number] Albuterol (Duoneb) 3 ml NEB Q6H EZEIKEL Stop: 10/29/19 21:59 Last Admin: 09/29/19 23:15 Dose: Not Given Documented by: [id number] Sodium Chloride (Nss 1000ml) 1,000 mls @ 999 mls/hr IV .Q1H1M ONE Stop: 09/29/19 17:56 Last Infusion: 09/29/19 18:58 Dose: 0 mls/hr Documented by: [id number] Admin: 09/29/19 17:56 Dose: 999 mls/hr Documented by: [id number] Sodium Chloride (Nss 1000ml) 1,000 mls @ 999 mls/hr IV .Q1H1M ONE Stop: 09/29/19 20:00 Last Infusion: 09/29/19 20:36 Dose: 0 mls/hr Documented by: [id number] Admin: 09/29/19 19:16 Dose: 999 mls/hr Documented by: [id number] Cefepime HCl (Maxipime) 2,000 mg in 20 mls @ 5 mls/min IV NOW STA Stop: 09/29/19 19:03 Last Admin: 09/29/19 19:17 Dose: 5 mls/min Documented by: [id number] Magnesium Sulfate/Dextrose (Magnesium Sulfate / D5w) 1 gm in 100 mls @ 100 mls/hr IV Q1H STA Stop: 09/29/19 20:18 Last Infusion: 09/29/19 21:50 Dose: 0 mls/hr Documented by: [id number] Admin: 09/29/19 20:23 Dose: 100 mls/hr Documented by: [id number] Potassium Chloride (K David / Wtr) 10 meq in 100 mls @ 100 mls/hr IV Q1H STA Stop: 09/29/19 20:18 Last Infusion: 09/29/19 20:21 Dose: 0 mls/hr Documented by: [id number] Admin: 09/29/19 19:24 Dose: 100 mls/hr Documented by: [id number] Menthol (Nice) 1 rob BUCCAL NOW STA Stop: 09/29/19 17:47 Last Admin: 09/29/19 17:56 Dose: 1 rob Documented by: [id number] Potassium Chloride (Klor-Con M20) 40 meq PO NOW STA Stop: 09/29/19 19:20 Last Admin: 09/29/19 19:25 Dose: 40 meq Documented by: [id number] Critical Care Time Critical Care Time: Yes Total Critical Care Time: 32 I have personally spent greater than 32 minutes of critical care time in the direct management of this patient. This includes bedside care, interpretation of diagnostic studies, and testing, discussion with consultants, patient, and family members, and other required patient management activities. This 32 minutes is in excess of all separately billable procedures. Medical Decision Making Differential Diagnosis Differential Diagnosis includes but is not limited to influenza, pneumonia, sepsis, cardiac disease, CHF, and electrolyte or metabolic abnormality. Medical Records Attestation: I reviewed the patient's medical records. Home Medications Current Medication List: was personally reviewed by me Laboratory Data Attestation: I reviewed the patient's lab results. Result diagrams: 09/29/19 17:31 09/29/19 17:31 Lab Results 09/29/19 09/29/19 09/29/19 Range/Units 17:26 17:31 17:31 WBC 8.85 (4.8-10.8) K/uL RBC 2.53 L (4.7-6.1) M/uL Hgb 8.2 L (14.0-18.0) g/dL Hct 25.4 L (42-52) % MCV 100.4 H (80-100) fL MCH 32.4 (25-34) pg MCHC 32.3 (32-36) g/dL RDW Std Deviation 60.7 H (36.4-46.3) fL RDW Coeff of Andrew 16.5 H (11.5-14.5) % Plt Count 143 (130-400) K/uL MPV 10.4 (7.4-10.4) fL Immature Gran % (Auto) 0.5 % Neut % (Auto) 71.6 % Lymph % (Auto) 13.6 % [place] % (Auto) 13.8 % Eos % (Auto) 0.2 % Baso % (Auto) 0.3 % Immature Gran # (Auto) 0.04 H (0.00-0.02) K/uL Neut # (Auto) 6.34 (1.4-6.5) K/uL Lymph # (Auto) 1.20 (1.2-3.4) K/uL [place] # (Auto) 1.22 H (0.11-0.59) K/uL Eos # (Auto) 0.02 (0-0.5) K/uL Baso # (Auto) 0.03 (0-0.2) K/uL Dohle Bodies 1+ PT 13.0 H (9.0-12.0) Seconds INR 1.3 H (0.9-1.1) APTT 27.4 (21.0-31.0) Seconds PTT Ratio 1.0 Sodium (136-145) mmol/L Potassium (3.5-5.1) mmol/L Chloride (98-107) mmol/L Carbon Dioxide (21-32) mmol/L Anion Gap (3-11) BUN (7-18) mg/dl Creatinine (0.6-1.4) mg/dl Est Cr Clr Drug Dosing ml/min Est GFR ( Amer) Est GFR (Non-Af Amer) BUN/Creatinine Ratio (10-20) Glucose (70-99) mg/dl Lactate (0.4-2.0) mmol/L Calcium (8.5-10.1) mg/dl Magnesium (1.8-2.4) mg/dl Total Bilirubin (0.2-1) mg/dl AST (15-37) U/L ALT (12-78) U/L Alkaline Phosphatase (45-117) U/L Troponin I (0-0.045) ng/ml Total Protein (6.4-8.2) gm/dl Albumin (3.4-5.0) gm/dl Globulin (2.5-4.0) gm/dl Albumin/Globulin Ratio (0.9-2) Urine Color Urine Appearance (Clear) Urine pH (4.5-7.5) Ur Specific [place] (1.000-1.030) Urine Protein (Negative) Urine Glucose (UA) (Negative) Urine Ketones (Negative) Urine Blood (Negative) Urine Nitrite (Negative) Urine Bilirubin (Negative) Urine Urobilinogen (Negative) Ur Leukocyte Esterase (Negative) Urine WBC (Auto) (0-5) /hpf Urine RBC (Auto) (0-4) /hpf U Hyaline Cast (Auto) (0-5) /lpf U Epithel Cells (Auto) (0-5) /lpf Urine Bacteria (Auto) (Negative) Ur Renal Epithelial Cell (0-5) /lpf Urine Yeast Influenza Type A (PCR) Neg for Influ A (Neg) Influenza Type B (PCR) Neg for Influ B (Neg) 09/29/19 09/29/19 09/29/19 Range/Units 17:31 17:31 18:36 WBC (4.8-10.8) K/uL RBC (4.7-6.1) M/uL Hgb (14.0-18.0) g/dL Hct (42-52) % MCV (80-100) fL MCH (25-34) pg MCHC (32-36) g/dL RDW Std Deviation (36.4-46.3) fL RDW Coeff of Andrew (11.5-14.5) % Plt Count (130-400) K/uL MPV (7.4-10.4) fL Immature Gran % (Auto) % Neut % (Auto) % Lymph % (Auto) % [place] % (Auto) % Eos % (Auto) % Baso % (Auto) % Immature Gran # (Auto) (0.00-0.02) K/uL Neut # (Auto) (1.4-6.5) K/uL Lymph # (Auto) (1.2-3.4) K/uL [place] # (Auto) (0.11-0.59) K/uL Eos # (Auto) (0-0.5) K/uL Baso # (Auto) (0-0.2) K/uL Dohle Bodies PT (9.0-12.0) Seconds INR (0.9-1.1) APTT (21.0-31.0) Seconds PTT Ratio Sodium 132 L (136-145) mmol/L Potassium 3.0 L (3.5-5.1) mmol/L Chloride 100 (98-107) mmol/L Carbon Dioxide 24 (21-32) mmol/L Anion Gap 8.0 (3-11) BUN 21 H (7-18) mg/dl Creatinine 1.33 (0.6-1.4) mg/dl Est Cr Clr Drug Dosing 50.4 ml/min Est GFR ( Amer) 63.7 Est GFR (Non-Af Amer) 54.9 BUN/Creatinine Ratio 15.8 (10-20) Glucose 95 (70-99) mg/dl Lactate 2.2 H* (0.4-2.0) mmol/L Calcium 8.1 L (8.5-10.1) mg/dl Magnesium 1.1 L (1.8-2.4) mg/dl Total Bilirubin 0.7 (0.2-1) mg/dl AST 17 (15-37) U/L ALT 15 (12-78) U/L Alkaline Phosphatase 75 (45-117) U/L Troponin I < 0.015 (0-0.045) ng/ml Total Protein 9.1 H (6.4-8.2) gm/dl Albumin 2.6 L (3.4-5.0) gm/dl Globulin 6.5 H (2.5-4.0) gm/dl Albumin/Globulin Ratio 0.4 L (0.9-2) Urine Color Yellow Urine Appearance Cloudy A (Clear) Urine pH 5.5 (4.5-7.5) Ur Specific [place] 1.020 (1.000-1.030) Urine Protein 2+ H (Negative) Urine Glucose (UA) Negative (Negative) Urine Ketones Negative (Negative) Urine Blood 3+ H (Negative) Urine Nitrite Negative (Negative) Urine Bilirubin Negative (Negative) Urine Urobilinogen Negative (Negative) Ur Leukocyte Esterase Trace H (Negative) Urine WBC (Auto) >30 H (0-5) /hpf Urine RBC (Auto) >30 H (0-4) /hpf U Hyaline Cast (Auto) 10-30 H (0-5) /lpf U Epithel Cells (Auto) 5-10 H (0-5) /lpf Urine Bacteria (Auto) Negative (Negative) Ur Renal Epithelial Cell 5-10 H (0-5) /lpf Urine Yeast Not Reportable Influenza Type A (PCR) (Neg) Influenza Type B (PCR) (Neg) Imaging Data Radiologist's Impression: Radiology results as stated below per my review and the radiologist's interpretation: XR chest 1V portable CLINICAL HISTORY: SEPSIS COMPARISON STUDY: 02/13/2017 FINDINGS: Infiltrate right base. Mild cardiac enlargement. Lungs otherwise appear clear. IMPRESSION: Infiltrate right base. ACT 112: Negative or not required by law. The above report was generated using voice recognition software. It may contain grammatical, syntax or spelling errors. Electronically signed by: Octavio Dobbs M.D. 09/29/2019 5:17 PM ECG Data Attestation: I personally reviewed and interpreted this ECG as follows: Indication: + abdominal pain and + chest pain Rate (beats per minute): 95 Rhythm: + normal sinus ECG Findings: + PVCs (occasional), + LVH and + Other (Old inferior infarct) Comparison ECG Date: from (01/06/15) Change: the following changes noted (TWI laterally has improved) Blood Pressure Blood Pressure Findings: Elevated blood pressure Blood Pressure Disposition: Referred to patients primary care provider [facility] Narrative This patient comes in as described above. He had a cough and flulike symptoms. He does have other medical problems including COPD and cardiac disease and in light of this I did an extensive sepsis type work-up. IV asked established EKG was obtained multiple blood testing including blood cultures obtained outside the flu swab. He was hydrated with 1 L IV normal saline bolus. He was reassessed frequently. Chest x-ray does show infiltrate in the right base. His white count is not elevated however his lactic acid is mildly elevated 2.2. The patient was given IV antibiotics as well as additional IV normal saline bolus. His influenza was negative he has no significant electrolyte or metabolic abnormalities. He is mildly tachypneic and given his underlying COPD, his pneumonia is elevated lactic acid and I do think he needs to be ad mitted/observed. I have consulted the [facility] hospitalist to see him in the ER for these measures. Impression & Plan Pneumonia, Sepsis, Elevated lactic acid level, COPD (chronic obstructive pulmonary disease) Discharge Plan Visit Data *Final* Discharge Date/Time: 09/29/19 21:10 Chief Complaint: Flu Like Symptoms Stated Complaint: FLU ED Provider: Henry Delgado Discharge Problem: Pneumonia, Sepsis, Elevated lactic acid level, COPD (chronic obstructive pulmonary disease) Patient Disposition: Admitted As Inpatient Discharge Instructions Interventions: ED Discharge Assessment Last Done: 09/29/19 21:10 Discharge Problem: Pneumonia Qualifiers: Pneumonia type: due to unspecified organism Laterality: right Lung location: lower lobe of lung Qualified Code(s): J18.9 - Pneumonia, unspecified organism Sepsis Qualifiers: Sepsis type: sepsis due to unspecified organism Sepsis acute organ dysfunction status: unspecified Qualified Code(s): A41.9 - Sepsis, unspecified organism COPD (chronic obstructive pulmonary disease) Qualifiers: COPD type: unspecified COPD Qualified Code(s): J44.9 - Chronic obstructive pulmonary disease, unspecified The scribe's documentation has been prepared under my direction and personally reviewed by me in its entirety. I confirm that the note above accurately reflects all work, treatment, procedures, and medical decision making performed by me.
[2019-09-29 17:46] LABS: Hematocrit (blood only) 25.4 % (42-52); Hemoglobin 8.2 g/dL (14.0-18.0); Mean Corpuscular Hemoglobin 32.4 pg (25-34); Mean Corpuscular Hgb Conc 32.3 g/dL (32-36); Mean Corpuscular Volume 100.4 fL (80-100); Mean Platelet Volume 10.4 fL (7.4-10.4); Platelet Count 143 K/uL (130-400); RDW Coefficient of Variation 16.5 % (11.5-14.5); RDW Standard Deviation 60.7 fL (36.4-46.3); Red Blood Count 2.53 M/uL (4.7-6.1); White Blood Count 8.85 K/uL (4.8-10.8)
[2019-09-29] MEDS ORDERED: COUGH DROP (SUGAR FREE) LOZ 24 LOZ/1 BOX BUCCAL STA (17:46)
[2019-09-29 17:56] LABS: INR 1.3 (0.9-1.1); Partial Thromboplastin Time 27.4 Seconds (21.0-31.0)
[2019-09-29 18:04] LABS: Alanine Aminotransferase 15 U/L (12-78); Albumin Level 2.6 gm/dl (3.4-5.0); Aspartate Aminotransferase 17 U/L (15-37); BUN Creatinine Ratio 15.8 (10-20); Basophils # (auto) 0.03 K/uL (0-0.2); Basophils % (auto) 0.3 %; Blood Urea Nitrogen 21 mg/dl (7-18); Calcium 8.1 mg/dl (8.5-10.1); Carbon Dioxide 24 mmol/L (21-32); Chloride 100 mmol/L (98-107); Creatinine Clr Calc Pharmacy 50.4 ml/min; Dohle Bodies 1+; Eosinophils # (auto) 0.02 K/uL (0-0.5); Eosinophils % (auto) 0.2 %; Est GFR (African American) 63.7; Est GFR (Non-African American) 54.9; Glucose 95 mg/dl (70-99); Immature Granulocytes # (auto) 0.04 K/uL (0.00-0.02); Immature Granulocytes % (auto) 0.5 %; Lymphocytes % (auto) 13.6 %; Magnesium 1.1 mg/dl (1.8-2.4); Monocytes # (auto) 1.22 K/uL (0.11-0.59); Monocytes % (auto) 13.8 %; Neutrophils # (auto) 6.34 K/uL (1.4-6.5); Neutrophils % (auto) 71.6 %; Sodium 132 mmol/L (136-145)
[2019-09-29 18:09] LABS: Albumin Globulin Ratio 0.4 (0.9-2); Alkaline Phosphatase 75 U/L (45-117); Bilirubin,Total 0.7 mg/dl (0.2-1); Globulin 6.5 gm/dl (2.5-4.0); Total Protein 9.1 gm/dl (6.4-8.2); Troponin I < 0.015 ng/ml (0-0.045)
[2019-09-29 18:17] LABS: Influenza A virus by PCR Neg for Influ A (Neg); Influenza B virus by PCR Neg for Influ B (Neg)
[2019-09-29 18:50] LABS: Appearance Urine Cloudy (Clear); Bacteria Urine Automated Negative (Negative); Bilirubin Urine Negative (Negative); Blood Urine 3+ (Negative); Color Urine Yellow; Glucose Urine UA Negative (Negative); Ketones Urine Negative (Negative); Leukocyte Esterase Urine Trace (Negative); Nitrite Urine Negative (Negative); Protein Urine 2+ (Negative); RBC Urine Automated >30 /hpf (0-4); Urobilinogen Urine Negative (Negative); WBC Urine Automated >30 /hpf (0-5); pH Urine 5.5 (4.5-7.5)
[2019-09-29] MEDS ORDERED: CEFEPIME 2,000 MG/20 ML VIAL IV STA (19:00)
[2019-09-29] MEDS ORDERED: ACETAMINOPHEN 325 MG TAB PO STA (19:01)
[2019-09-29] MEDS ORDERED: MAGNESIUM SULFATE / D5W 1 GM/100 ML BAG IV STA (19:19)
[2019-09-29] MEDS ORDERED: POTASSIUM CHLORIDE / WTR 10 MEQ/100 ML PLCT IV STA (19:19)
[2019-09-29] MEDS ORDERED: POTASSIUM CHLORIDE 20 MEQ TABCR PO STA (19:19)
--- NOTE | 2019-09-29 21:01 | History & Physical Report ---
Date of Service September 29, 2019 Assessment & Plan (1) Sepsis: (2) Pneumonia: Patient on admission with flulike symptom and fever with temp of 102 at home CXR show right base infiltrate Lactic acid mildly elevated Received cefepime in the ER Will continue for cefepime and add doxy IV Blood culture collected in the ER pending Continue neb treatment and oxygen supplement We will add guaifenesin for the cough We will repeat lactic acid and monitor CBC Continue IV fluid Electrolytes Imbalance Mostly related to poor oral intake Magnesium level 1 and potassium level 3 on admission Mag and potassium being replaced Continue monitor electrolyte COPD Not on any inhaler since patient unable to tolerate Will add duoneb prn Chronic anemia Hemoglobin on admission 8.2, Baseline btw 8 to 8.9 Continue iron supplement Monitor CBC CAD status post stent Continue statin metoprolol and aspirin Stable DVT px SCD (Due to anemia) CODE STATUS full code History of Present Illness Chief Complaint: Upper respiratory infection Primary Care Provider: Savanah Geiger DO 69 years old male with past medical history of COPD, hypertension, dyslipid emia, CAD s/p stent, STEMI in 2014, chronic anemia, tobacco abuse, non compliance presented to the ER with flulike symptom. Patient is a very poor historian, most of the history obtained from at bedside. said patient started to have productive yellowish cough about 3 days ago. He said that he also had a runny nose and body ache. He has not been eating or drinking in the past 3 days. said only thing he ate in the last 3 days was a grille cheese sandwich. said yesterday and today he developed a fever with temp 102F. Patient said he feels very weak and has no energy. said at baseline patient is very active. He does have shortness of breath at baseline due to COPD but lately shortness of breath seems to get worse. He said that he continues to smoke and not on any inhaler for his COPD. said he tried to get a pulmonary function test but was not able to do. He is not on any inhaler because he develops blister formation at the back of his throat when starting to use the inhaler. He said that his left eye is watery and feels sticky when he closes the it. Denies any chest pain, palpitation, dizziness. Allergies Allergy/AdvReac Type Severity Reaction Status Date / Time No Known Drug Allergies Allergy Unknown . Verified 09/29/19 17:57 shellfish derived Allergy Unknown HIVES Verified 09/29/19 17:57 Home Medications Home Medications Medication Instructions Recorded Confirmed Type aspirin 81 mg PO DAILY 09/29/19 09/29/19 History atorvastatin 80 mg PO QPM 09/29/19 09/29/19 History lisinopril 20 mg PO DAILY 09/29/19 09/29/19 History metoprolol tartrate 25 mg PO BID 09/29/19 09/29/19 History nitroglycerin 0.4 mg SUBLINGUAL DAILY PRN 09/29/19 09/29/19 History pantoprazole 40 mg PO DAILY 09/29/19 09/29/19 History Past Med/Surg History Medical History (Updated 09/29/19 @ 21:29 by Arsalan Islas MD) Acute recurrent pancreatitis (Acute Unknown) COPD (chronic obstructive pulmonary disease) (Chronic) STEMI (ST elevation myocardial infarction) (Acute) Family History Other Family history non-contributory Social History Feels Safe at Home: Yes Smoking Status: Current every day smoker Review of Systems Review of Systems: All systems reviewed & are unremarkable except as noted in HPI & below Physical Exam Physical Exam: General- No acute distress Head- atraumatic Eyes- PERRL, left eyes redness and matter ENT- oropharynx clear Neck- supple, no JVD Lungs- decrease BS Heart- regular rhythm; +murmur Abdomen- normal bowel sounds, soft, nontender Extremities- no calf tenderness Neuro- alert, oriented x 3; PERRL, EOMI; no facial palsy; no dysarthria Skin- warm & dry Results & Data Vital Signs (Past 12 Hours) Vital Signs Temp Pulse Pulse Resp BP BP Pulse Ox 09/29/19 20:24 37.1 C 09/29/19 20:00 92 H 32 H 130/77 92 09/29/19 19:30 96 H 25 H 144/86 H 09/29/19 19:15 93 H 24 146/83 H 92 09/29/19 18:41 94 H 20 93 09/29/19 18:00 91 H 28 H 140/84 92 09/29/19 17:56 90 28 H 138/79 92 09/29/19 17:35 95 09/29/19 17:26 90 20 154/83 H 94 09/29/19 17:16 95 09/29/19 16:37 37.8 C H 94 H 20 147/85 H 95 Diagnostic Findings XR chest 1V portable CLINICAL HISTORY: SEPSIS COMPARISON STUDY: 02/13/2017 FINDINGS: Infiltrate right base. Mild cardiac enlargement. Lungs otherwise appear clear. IMPRESSION: Infiltrate right base. ACT 112: Negative or not required by law. The above report was generated using voice recognition software. It may contain grammatical, syntax or spelling errors. Electronically signed by: Octavio Dobbs M.D. 09/29/2019 5:17 PM Dictated: 09/29/191716 Transcribed: 09/29/191716 (1) Sepsis Sepsis acute organ dysfunction status: unspecified Sepsis type: sepsis due to unspecified organism Qualified Code(s): A41.9 - Sepsis, unspecified organism (2) Pneumonia Laterality: right Lung location: lower lobe of lung Pneumonia type: due to unspecified organism Qualified Code(s): J18.9 - Pneumonia, unspecified organism
[2019-09-29] MEDS ORDERED: ALBUT/IPRATROP 3MG/0.5MG NEB 3 ML VIAL NEB SCH (22:00)
[2019-09-29] MEDS: guaiFENesin 200 MG TAB PO SCH (22:49)
[2019-09-29] MEDS: METOPROLOL TARTRATE 25 MG TAB PO SCH (22:50)
[2019-09-29] MEDS: DOXYCYCLINE HYCLATE 100 MG in DEXTROSE 5% 100 ML IV SCH (23:10)
[2019-09-30] MEDS ORDERED: BENZONATATE 100 MG CAPSULE PO PRN (00:31)
[2019-09-30] MEDS: ALBUT/IPRATROP 3MG/0.5MG NEB 3 ML VIAL NEB SCH ×5 (00:48→19:47)
[2019-09-30] MEDS ORDERED: KETOROLAC TROMETHAMINE 15 MG/ML VIAL IV PRN (03:30)
[2019-09-30] MEDS: SODIUM CHLORIDE 0.65% NA SOLN 45 ML (OCEAN) PRN ×2 (04:53→05:17)
[2019-09-30] MEDS: OXYCODONE HCL IR 5 MG TAB (IMMEDIATE RELEASE) PO PRN ×2 (04:53→09:09)
[2019-09-30] MEDS: guaiFENesin 200 MG TAB PO SCH ×2 (04:54→15:27)
--- NOTE | 2019-09-30 07:01 | Hospitalist Progress Note ---
Date of Service September 30, 2019 Assessment & Plan (1) Sepsis: (2) Pneumonia: Patient on admission with flulike symptom and fever with temp of 102 F at home CXR show right base infiltrate Lactic acid mildly elevated, 2.2 ->1.4 Received cefepime in the ER Will add doxy IV and ceftriaxone IV Blood culture collected in the ER - pending Continue neb treatment and oxygen supplement Continue guaifenesin for the cough Encourage spirometry every hour while awake Electrolytes Imbalance Hypomagnesemia, hypokalemia Mostly related to poor oral intake Magnesium level 1.1 and potassium level 3.0 on admission - monitor electrolytes and replace as needed COPD Not on any inhaler since patient unable to tolerate - cont duoneb prn -Patient says that breathing treatment did not work for him today, encouraged to try again Chronic anemia Hemoglobin on admission 8.2, Baseline btw 8 to 8.9 Continue iron supplement Monitor CBC CAD status post stent Continue statin metoprolol and aspirin Stable DVT px SCD (Due to anemia) CODE STATUS full code Subjective Patient presents with shortness of breath, productive cough for past 3 days, weakness, poor appetite, fever of 102F. Tachypneic with RR>30 on admission. Lactic acid 2.2 ->1.4. mag 1.1, K 3.0, negative for flu. He was given cefepime in the ED, currently IV doxycycline. Patient is lying in bed, in no acute distress, patient's daughter at the bedside. Daughter provides most of the history. Patient is saying that breathing treatments do not work for him, discussed that breathing treatments are important and so is using the spirometer. Often does not answer questions appropriately/ tangential about his arthritis pain. Daughter helps to clarify his symptoms. Review of Systems Review of Systems: All systems reviewed & are unremarkable except as noted in HPI & below Constitutional: + fever, + chills, + fatigue and + malaise Respiratory: + cough and + dyspnea Cardiovascular: no chest pain, no palpitations and no edema Gastrointestinal: + nausea; no abdominal pain and no vomiting Musculoskeletal: + back pain (Says he has chronic arthritis pain in his back and hips) Physical Exam Physical Exam: General-elderly thin male, lying in bed, in no acute distress Head-normocephalic, atraumatic Eyes- EOMI,PERRL ENT- oropharynx clear Neck- supple, no JVD Lungs-normal respiratory effort, decreased breath sounds, coughs with deep inspiration, no wheezing Heart- regular rhythm; +murmur Abdomen- normal bowel sounds, soft, nontender, nondistended, no guarding Extremities- no calf tenderness, no lower extremity edema, moves all 4 extremities spontaneously Neuro- alert, oriented x 3; PERRL, EOMI; no facial palsy; no dysarthria Skin- warm & dry Results & Data Vital Signs (Past 12 Hours) Vital Signs Temp Pulse Pulse Resp BP BP Pulse Ox 09/30/19 05:20 96 H 09/30/19 03:50 36.9 C 99 H 20 137/79 92 09/30/19 01:07 94 H 16 95 09/30/19 00:10 37.7 C H 92 H 24 137/79 92 09/29/19 21:51 99 H 09/29/19 21:44 37.4 C 98 H 18 148/83 H 95 09/29/19 21:00 93 H 18 135/82 09/29/19 20:30 90 33 H 132/78 09/29/19 20:24 37.1 C 09/29/19 20:00 92 H 32 H 130/77 92 09/29/19 19:30 96 H 25 H 144/86 H 09/29/19 19:15 93 H 24 146/83 H 92 (1) Sepsis Sepsis acute organ dysfunction status: unspecified Sepsis type: sepsis due to unspecified organism Qualified Code(s): A41.9 - Sepsis, unspecified organism (2) Pneumonia Laterality: right Lung location: lower lobe of lung Pneumonia type: due to unspecified organism Qualified Code(s): J18.9 - Pneumonia, unspecified organism
[2019-09-30] MEDS ORDERED: PNEUMOCOCCAL Polysaccharide Vaccine 25mcg/0.5mL vial/Syr IM ONE (08:00)
[2019-09-30] MEDS ORDERED: INFLUENZA Vaccine HIGH DOSE 65+yrs 0.5 mL Syr IM ONE (08:00)
[2019-09-30] MEDS: ASPIRIN 81 MG ECTAB PO SCH (09:10)
[2019-09-30] MEDS: lisinopriL 20 MG TAB PO SCH (09:11)
[2019-09-30] MEDS: PANTOprazole 40 MG TAB PO SCH (09:12)
[2019-09-30] MEDS: FERROUS SULFATE 325 MG TAB PO SCH ×2 (09:12→20:39)
[2019-09-30] MEDS: METOPROLOL TARTRATE 25 MG TAB PO SCH ×2 (09:13→20:39)
[2019-09-30] MEDS: DOXYCYCLINE HYCLATE 100 MG in DEXTROSE 5% 100 ML IV SCH ×2 (09:13→21:42)
[2019-09-30 09:34] LABS: Hematocrit (blood only) 24.9 % (42-52); Hemoglobin 7.7 g/dL (14.0-18.0); Mean Corpuscular Hemoglobin 31.8 pg (25-34); Mean Corpuscular Hgb Conc 30.9 g/dL (32-36); Mean Corpuscular Volume 102.9 fL (80-100); Mean Platelet Volume 10.1 fL (7.4-10.4); Platelet Count 122 K/uL (130-400); RDW Coefficient of Variation 16.3 % (11.5-14.5); RDW Standard Deviation 61.6 fL (36.4-46.3); Red Blood Count 2.42 M/uL (4.7-6.1); White Blood Count 7.22 K/uL (4.8-10.8)
[2019-09-30 10:12] LABS: BUN Creatinine Ratio 13.5 (10-20); Creatinine Clr Calc Pharmacy 56.8 ml/min; Est GFR (African American) 70.7; Potassium 3.1 mmol/L (3.5-5.1)
[2019-09-30] MEDS ORDERED: PROMETHAZINE HCL 6.25 MG in SODIUM CHLORIDE 0.9% 50 ML IV PRN (11:35)
[2019-09-30] MEDS ORDERED: PROMETHAZINE HCL 6.25 MG in SODIUM CHLORIDE 0.9% 50 ML IV ONE (11:45)
[2019-09-30] MEDS: POTASSIUM CHLORIDE / WTR 10 MEQ/100 ML PLCT IV SCH (11:47)
[2019-09-30] MEDS: MAGNESIUM SULFATE / D5W 1 GM/100 ML BAG IV SCH (12:42)
[2019-09-30] MEDS ORDERED: CEFEPIME 2,000 MG in SYRINGE 7.5 ML IV SCH (14:00)
--- NOTE | 2019-09-30 14:52 | Electrocardiogram Report ---
Test Reason : Blood Pressure : / mmHG Vent. Rate : 095 BPM Atrial Rate : 095 BPM P-R Int : 154 ms QRS Dur : 100 ms QT Int : 366 ms P-R-T Axes : 025 031 045 degrees QTc Int : 459 ms Sinus rhythm with occasional Premature ventricular complexes Voltage criteria for left ventricular hypertrophy Inferior infarct (cited on or before 05-JAN-2015) Abnormal ECG When compared with ECG of 06-JAN-2015 10:03, Premature ventricular complexes are now Present Premature atrial complexes are no longer Present Nonspecific T wave abnormality, improved in Inferior leads T wave inversion no longer evident in Lateral leads Confirmed by Julio Ricks ([id number]) on 09/30/2019 2:52:11 PM Referred By: REFERRED SELF Confirmed By:Julio Ricks
--- NOTE | 2019-09-30 15:17 | Electrocardiogram Report ---
Test Reason : Blood Pressure : / mmHG Vent. Rate : 098 BPM Atrial Rate : 098 BPM P-R Int : 160 ms QRS Dur : 106 ms QT Int : 356 ms P-R-T Axes : 066 000 -10 degrees QTc Int : 454 ms Normal sinus rhythm Voltage criteria for left ventricular hypertrophy Inferior infarct (cited on or before 05-JAN-2015) Abnormal ECG When compared with ECG of 29-SEP-2019 17:32, (unconfirmed) Premature ventricular complexes are no longer Present Inverted T waves have replaced nonspecific T wave abnormality in Inferior leads Confirmed by Julio Ricks ([id number]) on 09/30/2019 3:17:06 PM Referred By: REFERRED SELF Confirmed By:Julio Ricks
[2019-09-30] MEDS: cefTRIAXone SODIUM 2,000 MG in DEXTROSE 5% 50 ML IV SCH (15:45)
[2019-09-30] MEDS: guaiFENesin 600 MG TABCR PO SCH (20:51)
[2019-09-30] MEDS ORDERED: ATORVASTATIN 40 MG TAB PO SCH (21:00)
[2019-10-01] MEDS: ALBUT/IPRATROP 3MG/0.5MG NEB 3 ML VIAL NEB SCH ×3 (00:36→13:11)
[2019-10-01 07:42] LABS: Hematocrit (blood only) 24.3 % (42-52); Hemoglobin 7.9 g/dL (14.0-18.0); Mean Corpuscular Hemoglobin 32.8 pg (25-34); Mean Corpuscular Hgb Conc 32.5 g/dL (32-36); Mean Corpuscular Volume 100.8 fL (80-100); Mean Platelet Volume 9.8 fL (7.4-10.4); Platelet Count 124 K/uL (130-400); RDW Coefficient of Variation 16.5 % (11.5-14.5); RDW Standard Deviation 60.8 fL (36.4-46.3); Red Blood Count 2.41 M/uL (4.7-6.1); White Blood Count 7.61 K/uL (4.8-10.8)
[2019-10-01 08:20] LABS: BUN Creatinine Ratio 15.6 (10-20); Calcium 8.3 mg/dl (8.5-10.1); Est GFR (African American) 84.7; Est GFR (Non-African American) 73.1; Magnesium 1.7 mg/dl (1.8-2.4); Potassium 3.6 mmol/L (3.5-5.1)
--- NOTE | 2019-10-01 08:55 | Hospitalist Progress Note ---
Date of Service October 01, 2019 Subjective Patient presents with shortness of breath, productive cough for past 3 days, weakness, poor appetite, fever of 102F. Tachypneic with RR>30 on admission. Lactic acid 2.2 ->1.4. Mag 1.1, K 3.0, negative for flu. He was given cefepime in the ED, currently IV doxycycline and IV ceftriaxone. Current magnesium 1.7, will replete Creatinine down to 1.0, BREANN resolved Results & Data Vital Signs (Past 12 Hours) Vital Signs Temp Pulse Resp BP Pulse Ox 09/30/19 22:58 36.6 C 83 18 150/100 H 98 Laboratory Results 10/01/19 10/01/19 09/30/19 Range/Units 07:29 07:29 09:09 WBC 7.61 (4.8-10.8) K/uL RBC 2.41 L (4.7-6.1) M/uL Hgb 7.9 L (14.0-18.0) g/dL Hct 24.3 L (42-52) % MCV 100.8 H (80-100) fL MCH 32.8 (25-34) pg MCHC 32.5 (32-36) g/dL RDW Std Deviation 60.8 H (36.4-46.3) fL RDW Coeff of Andrew 16.5 H (11.5-14.5) % Plt Count 124 L (130-400) K/uL MPV 9.8 (7.4-10.4) fL Sodium 136 134 L (136-145) mmol/L Potassium 3.6 D 3.1 L (3.5-5.1) mmol/L Chloride 107 105 (98-107) mmol/L Carbon Dioxide 24 21 (21-32) mmol/L Anion Gap 5.0 8.0 (3-11) BUN 16 17 (7-18) mg/dl Creatinine 1.05 1.22 (0.6-1.4) mg/dl Est Cr Clr Drug Dosing 66.0 56.8 ml/min Est GFR ( Amer) 84.7 70.7 Est GFR (Non-Af Amer) 73.1 61.0 BUN/Creatinine Ratio 15.6 13.5 (10-20) Glucose 102 H 144 H (70-99) mg/dl Calcium 8.3 L 8.0 L (8.5-10.1) mg/dl Magnesium 1.7 L (1.8-2.4) mg/dl 09/30/19 Range/Units 09:09 WBC 7.22 (4.8-10.8) K/uL RBC 2.42 L (4.7-6.1) M/uL Hgb 7.7 L (14.0-18.0) g/dL Hct 24.9 L (42-52) % MCV 102.9 H (80-100) fL MCH 31.8 (25-34) pg MCHC 30.9 L (32-36) g/dL RDW Std Deviation 61.6 H (36.4-46.3) fL RDW Coeff of Andrew 16.3 H (11.5-14.5) % Plt Count 122 L (130-400) K/uL MPV 10.1 (7.4-10.4) fL Sodium (136-145) mmol/L Potassium (3.5-5.1) mmol/L Chloride (98-107) mmol/L Carbon Dioxide (21-32) mmol/L Anion Gap (3-11) BUN (7-18) mg/dl Creatinine (0.6-1.4) mg/dl Est Cr Clr Drug Dosing ml/min Est GFR ( Amer) Est GFR (Non-Af Amer) BUN/Creatinine Ratio (10-20) Glucose (70-99) mg/dl Calcium (8.5-10.1) mg/dl Magnesium (1.8-2.4) mg/dl
[2019-10-01] MEDS: lisinopriL 20 MG TAB PO SCH (09:05)
[2019-10-01] MEDS: guaiFENesin 600 MG TABCR PO SCH (09:05)
[2019-10-01] MEDS: ASPIRIN 81 MG ECTAB PO SCH (09:05)
[2019-10-01] MEDS: METOPROLOL TARTRATE 25 MG TAB PO SCH (09:06)
[2019-10-01] MEDS: FERROUS SULFATE 325 MG TAB PO SCH (09:06)
[2019-10-01] MEDS: PANTOprazole 40 MG TAB PO SCH (09:06)
[2019-10-01] MEDS: DOXYCYCLINE HYCLATE 100 MG in DEXTROSE 5% 100 ML IV SCH (09:14)
[2019-10-01] MEDS: MAGNESIUM SULFATE / D5W 1 GM/100 ML BAG IV SCH ×2 (09:15→10:18)
--- NOTE | 2019-10-01 14:02 | Discharge Summary ---
Date of Service October 01, 2019 Admission HPI Per Admitting Provider 69 years old male with past medical history of COPD, hypertension, dyslipidemia, CAD s/p stent, STEMI in 2015, chronic anemia, tobacco abuse, non compliance presented to the ER with flulike symptom. Patient is a very poor historian, most of the history obtained from at bedside. said patient started to have productive yellowish cough about 3 days ago. He said that he also had a runny nose and body ache. He has not been eating or drinking in the past 3 days. said only thing he ate in the last 3 days was a grille cheese sandwich. said yesterday and today he developed a fever with temp 102F. Patient said he feels very weak and has no energy. said at baseline patient is very active. He does have shortness of breath at baseline due to COPD but lately shortness of breath seems to get worse. He said that he continues to smoke and not on any inhaler for his COPD. said he tried to get a pulmonary function test but was not able to do. He is not on any inhaler because he develops blister formation at the back of his throat when starting to use the inhaler. He said that his left eye is watery and feels sticky when he closes the it. Denies any chest pain, palpitation, dizziness. Discharge Data Allergies Allergy/AdvReac Type Severity Reaction Status Date / Time No Known Drug Allergies Allergy Unknown . Verified 09/29/19 17:57 shellfish derived Allergy Unknown HIVES Verified 09/29/19 17:57 Consultations 09/29/19 19:06 ED Decision to Admit Stat Discharge Plan Discharge Items Patient Disposition: Home - Self-Care Reason For Visit: URI Discharge Diagnosis: Community acquired pneumonia, COPD, Hypomagnesemia, Hypokalemia Activity: Resume your previous activity Activity Comment: as tolerated, pace yourself, ask for help as needed Non-emergency contact: Primary Care Provider Call non-emergency contact if: you have any medication questions and your symptoms worsen Follow-up/Referrals: Savanah Geiger DO [Primary Care Provider] - 10/04/19 10:55 am Diet: Heart Healthy Addtl Attending Provider Instructions: Follow up with primary care provider on October 04, at 10:55 AM. Take antibiotics as prescribed for next 3 days. Also take guaifenesin. Start taking magnesium supplement and have your electrolytes checked at your primary care doctor's office. For smoking cessation, call 1 800 QUIT NOW line. Pending Studies at Discharge: No Stand-Alone Forms: My [facility], Smoking Cessation Medications and DC Order Prescriptions: New guaifenesin [Mucinex] 600 mg Tablet Extended Release 12hr 600 mg PO Q12 10 Days Qty: 20 RF: 0 doxycycline hyclate 100 mg capsule 100 mg PO BID 3 Days Qty: 6 RF: 0 cefuroxime axetil 500 mg tablet 500 mg PO BID 3 Days Qty: 6 RF: 0 magnesium oxide 400 mg (241.3 mg magnesium) tablet 400 mg PO DAILY 7 Days Qty: 7 RF: 0 Continued atorvastatin 80 mg tablet 80 mg PO QPM RF: 0 lisinopril 20 mg tablet 20 mg PO DAILY RF: 0 aspirin 81 mg tablet,delayed release (DR/EC) 81 mg PO DAILY RF: 0 pantoprazole 40 mg tablet,delayed release (DR/EC) 40 mg PO DAILY RF: 0 nitroglycerin 0.4 mg tablet, sublingual 0.4 mg sublingual DAILY PRN (Reason: Chest Pain) RF: 0 metoprolol tartrate 25 mg tablet 25 mg PO BID RF: 0 ferrous sulfate 325 mg 325 mg PO BID RF: 0 Discharge Orders: Discharge Order (Routine); Ordered 10/01/19 Ordered By: Arcadio Kan Admission Data Admit Date/Time: 09/29/19 20:06 Attending Provider: Arcadio Kan Admit Provider: Arsalan Islas Primary Care Provider: Savanah Geiger Other Providers: Arsalan Islas
[2019-10-01] MEDS: cefTRIAXone SODIUM 2,000 MG in DEXTROSE 5% 50 ML IV SCH (14:34)
== END 2019-10-01 15:15 | disposition home or self-care (01) | DRG 871 ==
LOC: ED 16:32 → SUATTDRO 20:06 → 2N 20:06

== ENCOUNTER 2020-04-24 21:37 | Inpatient (IN) ==
[2020-04-24] MEDS ORDERED: SODIUM CHLORIDE 0.9% 250 ML IV PRN (22:15)
--- NOTE | 2020-04-24 22:33 | Emergency Department Note ---
Impression & Plan Symptomatic anemia, Weak, Hypomagnesemia, Hematuria, Breath shortness, Chest pain ED Provider Note NAME: JESSICA BILLY AGE: 70 SEX: M : 1950 ARRIVES VIA: Walk-In INFORMANT: Patient ED PROVIDER(S): Colten Rae DO CHIEF COMPLAINT: Anemia HPI: Patient is a 70-year-old male who presents the ER for history of bladder cancer and hematuria. He has been feeling weak and fatigued. He admits to shortness of breath and dizziness which has been present over the past month but gradually getting worse. Patient denies any belly pain. Admits to dark tarry stools but notes he is on iron and this has not changed since then. Patient admits to diffuse weakness. He had blood work obtained and was referred in due to the anemia. He notes that he is starting to get chest pain with exertion recently in combination with shortness of breath with talking. ROS: See above HPI for pertinent positives & negatives. A total of 10 systems reviewed and were otherwise negative. PAST MEDICAL HISTORY:See Below PAST SURGICAL HISTORY:See Below FAMILY HISTORY:See Below SOCIAL HISTORY:See Below HOME MEDICATIONS:See Below ALLERGIES:See Below VITALS:See Below PHYSICAL EXAMINATION: GENERAL: Sitting up in bed, alert, chronically ill-appearing, cachectic EYE EXAM: normal conjunctiva. OROPHARYNX: no exudate, no erythema, lips, buccal mucosa, and tongue normal and mucous membranes are dry NECK: supple, no nuchal rigidity, no adenopathy, non-tender LUNGS: Clear to auscultation. Normal chest wall mechanics HEART: no murmurs, S1 normal and S2 normal ABDOMEN: abdomen soft, non-tender, normo-active bowel sounds, no masses, no rebound or guarding. BACK: Back is symmetrical on inspection and there is no deformity, no midline tenderness, no CVA tenderness. SKIN: no rashes and no bruising UPPER EXTREMITIES: upper extremities are grossly normal. LOWER EXTREMITIES: No pitting edema. NEURO EXAM: Normal sensorium, cranial nerves II-XII grossly intact, normal speech, no gross weakness of arms, no gross weakness of legs. MEDICAL DECISION MAKING: Patient is a 70-year-old male with a past medical history bladder cancer presents the ER for hematuria which has been present for over the past month. IV was established and blood work was obtained. Labs showed no significant leukocytosis. Significant anemia at 4.8. INR 1.3. BMP with mild hypokalemia 2.9. Magnesium was low at 0.6. LFTs and bilirubin was unremarkable. Troponin was negative. Patient was consented at bedside for blood. Urine was a dark red blood. Do favor that this is the likely cause of the worsening anemia as this is been going on for the past month. He denies any pain. Patient was typed and crossed and given 2 units of PRBCs and will be admitted for further work-up. D/w with the hospitalist for admission. Patient was updated bedside. Triage Nursing notes reviewed. Prior medical records reviewed Vital Signs: reviewed and remarkable for no significant tachycardia Differential diagnosis: Differential diagnosis includes etiologies such as diverticulitis, diverticulosis, AVM, coagulopathy, colitis, inflammatory bowel disease, malignancy, Natalee-Villegas tear, esophagitis, peptic ulcer disease, variceal bleed, gastritis, epistaxis, fissure, hemorrhoids, as well as others were entertained. ER treatment provided: See below Diagnostics interpreted by me: ECG: Sinus rhythm rate 81 Normal axis No PVCs PACs present Normal QTC Cardiac Monitoring: An order was placed for continuous cardiac monitoring. The monitor shows a rate of 98 with sinus rhythm. Laboratory studies: As stated above and show below. Imaging studies: Portable AP upright 1 view of the chest shows no focal infiltrate or pneumothorax with atelectasis in the bilateral lower gramajo per my read Consultation(s): Discussed with hospitalist for admission. ED COURSE: Procedures: none Critical Care: I have personally spent 40 minutes of critical care time in the direct management of this patient. This includes bedside care, interpretation of diagnostic studies, and testing, discussion with consultants, patient, and family members, and other required patient management activities. This 40 minutes is in excess of all separately billable procedures. Past Med/Surg History Medical History (Updated 04/25/20 @ 00:26 by Colten Rae DO) Acute recurrent pancreatitis (Acute Unknown) COPD (chronic obstructive pulmonary disease) (Chronic) STEMI (ST elevation myocardial infarction) (Acute) Social History Smoking Status: Current every day smoker Second Hand Exposure: No; Hx Alcohol Use: Yes Hx Substance Use: No Preferred Language: Tongan Communication Ability: Effective Beliefs That Will Affect Care: None Current Living Situation: Spouse Feels Safe at Home: Yes Allergies Allergies Allergy/AdvReac Type Severity Reaction Status Date / Time shellfish derived Allergy Intermediate HIVES Verified 04/24/20 22:47 Home Meds Home Medications Medication Instructions Recorded Confirmed aspirin 81 mg PO DAILY 09/29/19 04/24/20 atorvastatin 80 mg PO QPM 09/29/19 04/24/20 lisinopril 20 mg PO DAILY 09/29/19 04/24/20 metoprolol tartrate 25 mg PO BID 09/29/19 04/24/20 nitroglycerin 0.4 mg SUBLINGUAL DAILY PRN 09/29/19 04/24/20 pantoprazole 40 mg PO DAILYBB 09/29/19 04/24/20 Lactobacillus acidophilus 0 cell PO DAILY 04/24/20 04/24/20 [Probiotic] doxycycline hyclate 100 mg PO BID 04/24/20 04/24/20 ferrous sulfate 325 mg PO BID 04/24/20 04/24/20 Results & Data (ED) Vital Signs Vital Signs - 24 hr 04/24/20 21:40 04/24/20 22:54 Temperature 36.9 C Temperature Source Oral Pulse Rate 86 84 Pulse Rhythm Regular Respiratory Rate 99 H 20 Respiratory Effort / Characteristics Non-Labored Spontaneous Respiratory Depth Normal Respiratory Pattern Regular Blood Pressure 134/86 Blood Pressure Mean 102 Blood Pressure Position Sitting Pulse Oximetry 99 98 Oxygen Delivery Method Room Air Room Air Sepsis Recent Fever Within 48 Hours No Sepsis New/Unexplained Change in Mental Status No Sepsis Action Taken by Nursing No Action Required Laboratory Data Result diagrams: 04/24/20 22:18 04/24/20 22:18 Lab Results 04/24/20 04/24/20 04/24/20 Range/Units 22:18 22:18 22:18 WBC 8.87 (4.8-10.8) K/uL RBC 1.52 L (4.7-6.1) M/uL Hgb 4.8 L* (14.0-18.0) g/dL Hct 15.8 L* (42-52) % MCV 103.9 H (80-100) fL MCH 31.6 (25-34) pg MCHC 30.4 L (32-36) g/dL Plt Count 185 (130-400) K/uL Immature Gran % (Auto) 1.0 % Neut % (Auto) 59.7 % Lymph % (Auto) 21.3 % Clarke % (Auto) 12.0 % Eos % (Auto) 5.7 % Baso % (Auto) 0.3 % Neut # (Auto) 5.29 (1.4-6.5) K/uL Lymph # (Auto) 1.89 (1.2-3.4) K/uL Clarke # (Auto) 1.06 H (0.11-0.59) K/uL Eos # (Auto) 0.51 H (0-0.5) K/uL Baso # (Auto) 0.03 (0-0.2) K/uL Immature Gran # (Auto) 0.09 H (0.00-0.02) K/uL Absolute Nucleated RBC 0.10 H (0-0) K/uL Nucleated RBC % (auto) 1.1 % Tear Drop Cells 1+ Ovalocytes 1+ PT 13.5 H (9.0-12.0) Seconds INR 1.3 H (0.9-1.1) APTT 26.1 (21.0-31.0) Seconds PTT Ratio 0.9 Sodium 137 (136-145) mmol/L Potassium 2.9 L (3.5-5.1) mmol/L Chloride 107 (98-107) mmol/L Carbon Dioxide 26 (21-32) mmol/L Anion Gap 4.0 (3-11) BUN 19 H (7-18) mg/dl Creatinine 1.26 (0.6-1.4) mg/dl Est Cr Clr Drug Dosing 56.8 ml/min Est GFR ( Amer) 67.5 Est GFR (Non-Af Amer) 58.2 BUN/Creatinine Ratio 15.1 (10-20) Glucose 108 H (70-99) mg/dl Calcium 6.5 L (8.5-10.1) mg/dl Magnesium 0.6 L* (1.8-2.4) mg/dl Total Bilirubin 0.4 (0.2-1) mg/dl AST 10 L (15-37) U/L ALT 18 (12-78) U/L Alkaline Phosphatase 112 (45-117) U/L Troponin I < 0.015 (0-0.045) ng/ml Total Protein 8.6 H (6.4-8.2) gm/dl Albumin 2.5 L (3.4-5.0) gm/dl Globulin 6.1 H (2.5-4.0) gm/dl Albumin/Globulin Ratio 0.4 L (0.9-2) Blood Type Blood Type Recheck Antibody Screen Crossmatch 04/24/20 04/24/20 Range/Units 22:33 23:05 WBC (4.8-10.8) K/uL RBC (4.7-6.1) M/uL Hgb (14.0-18.0) g/dL Hct (42-52) % MCV (80-100) fL MCH (25-34) pg MCHC (32-36) g/dL Plt Count (130-400) K/uL Immature Gran % (Auto) % Neut % (Auto) % Lymph % (Auto) % Clarke % (Auto) % Eos % (Auto) % Baso % (Auto) % Neut # (Auto) (1.4-6.5) K/uL Lymph # (Auto) (1.2-3.4) K/uL Clarke # (Auto) (0.11-0.59) K/uL Eos # (Auto) (0-0.5) K/uL Baso # (Auto) (0-0.2) K/uL Immature Gran # (Auto) (0.00-0.02) K/uL Absolute Nucleated RBC (0-0) K/uL Nucleated RBC % (auto) % Tear Drop Cells Ovalocytes PT (9.0-12.0) Seconds INR (0.9-1.1) APTT (21.0-31.0) Seconds PTT Ratio Sodium (136-145) mmol/L Potassium (3.5-5.1) mmol/L Chloride (98-107) mmol/L Carbon Dioxide (21-32) mmol/L Anion Gap (3-11) BUN (7-18) mg/dl Creatinine (0.6-1.4) mg/dl Est Cr Clr Drug Dosing ml/min Est GFR ( Amer) Est GFR (Non-Af Amer) BUN/Creatinine Ratio (10-20) Glucose (70-99) mg/dl Calcium (8.5-10.1) mg/dl Magnesium (1.8-2.4) mg/dl Total Bilirubin (0.2-1) mg/dl AST (15-37) U/L ALT (12-78) U/L Alkaline Phosphatase (45-117) U/L Troponin I (0-0.045) ng/ml Total Protein (6.4-8.2) gm/dl Albumin (3.4-5.0) gm/dl Globulin (2.5-4.0) gm/dl Albumin/Globulin Ratio (0.9-2) Blood Type O Negative Blood Type Recheck O Negative Antibody Screen NEGATIVE Crossmatch See Detail Administered Medications Discontinued Medications Potassium Chloride (Klor-Con M10) 40 meq PO NOW STA Stop: 04/24/20 23:29 Last Admin: 04/25/20 00:12 Dose: 40 meq Documented by: [id number] Discharge Plan Visit Data Chief Complaint: Referred by Doctor Stated Complaint: Referred by Doctor for blood transfusion ED Provider: Colten Rae Discharge Problem: Symptomatic anemia, Weak, Hypomagnesemia, Hematuria, Breath shortness, Chest pain Forms Stand Alone Forms: My [facility] Prescriptions Prescriptions: No Action atorvastatin 80 mg tablet 80 mg PO QPM RF: 0 lisinopril 20 mg tablet 20 mg PO DAILY RF: 0 aspirin 81 mg tablet,delayed release (DR/EC) 81 mg PO DAILY RF: 0 pantoprazole 40 mg tablet,delayed release (DR/EC) 40 mg PO DAILYBB RF: 0 nitroglycerin 0.4 mg tablet, sublingual 0.4 mg sublingual DAILY PRN (Reason: Chest Pain) RF: 0 metoprolol tartrate 25 mg tablet 25 mg PO BID RF: 0 ferrous sulfate 325 mg (65 mg iron) Tablet 325 mg PO BID RF: 0 doxycycline hyclate 100 mg Tablet 100 mg PO BID RF: 0 Probiotic 10 billion cell Capsule 0 cell PO DAILY RF: 0 Discharge Problem: Hematuria Qualifiers: Hematuria type: unspecified type Qualified Code(s): R31.9 - Hematuria, unspecified Chest pain Qualifiers: Chest pain type: unspecified Qualified Code(s): R07.9 - Chest pain, unspecified
[2020-04-24 22:44] LABS: INR 1.3 (0.9-1.1); Partial Thromboplastin Ratio 0.9; Partial Thromboplastin Time 26.1 Seconds (21.0-31.0); Prothrombin Time 13.5 Seconds (9.0-12.0)
[2020-04-24 22:47] LABS: Alanine Aminotransferase 18 U/L (12-78); Albumin Level 2.5 gm/dl (3.4-5.0); Aspartate Aminotransferase 10 U/L (15-37); BUN Creatinine Ratio 15.1 (10-20); Blood Urea Nitrogen 19 mg/dl (7-18); Calcium 6.5 mg/dl (8.5-10.1); Carbon Dioxide 26 mmol/L (21-32); Chloride 107 mmol/L (98-107); Creatinine Clr Calc Pharmacy 56.8 ml/min; Est GFR (African American) 67.5; Est GFR (Non-African American) 58.2; Glucose 108 mg/dl (70-99); Potassium 2.9 mmol/L (3.5-5.1); Sodium 137 mmol/L (136-145)
[2020-04-24 22:51] LABS: Albumin Globulin Ratio 0.4 (0.9-2); Alkaline Phosphatase 112 U/L (45-117); Bilirubin,Total 0.4 mg/dl (0.2-1); Globulin 6.1 gm/dl (2.5-4.0); Total Protein 8.6 gm/dl (6.4-8.2); Troponin I < 0.015 ng/ml (0-0.045)
[2020-04-24 22:58] LABS: Hematocrit (blood only) 15.8 % (42-52); Hemoglobin 4.8 g/dL (14.0-18.0); Mean Corpuscular Hemoglobin 31.6 pg (25-34); Mean Corpuscular Hgb Conc 30.4 g/dL (32-36); Mean Corpuscular Volume 103.9 fL (80-100); Nucleated RBC % (auto) 1.1 %; Platelet Count 185 K/uL (130-400); Red Blood Count 1.52 M/uL (4.7-6.1); White Blood Count 8.87 K/uL (4.8-10.8)
[2020-04-24 22:59] LABS: Basophils # (auto) 0.03 K/uL (0-0.2); Basophils % (auto) 0.3 %; Eosinophils # (auto) 0.51 K/uL (0-0.5); Eosinophils % (auto) 5.7 %; Immature Granulocytes # (auto) 0.09 K/uL (0.00-0.02); Lymphocytes # (auto) 1.89 K/uL (1.2-3.4); Lymphocytes % (auto) 21.3 %; Monocytes # (auto) 1.06 K/uL (0.11-0.59); Neutrophils # (auto) 5.29 K/uL (1.4-6.5); Neutrophils % (auto) 59.7 %; Ovalocytes 1+; Tear Drop Cells 1+
[2020-04-24] MEDS ORDERED: POTASSIUM CHLORIDE 10 MEQ TABCR PO STA (23:28)
[2020-04-24] MEDS ORDERED: CALCIUM GLUCONATE 10% 2,000 MG in SODIUM CHLORIDE 0.9% 50 ML IV STA (23:35)
[2020-04-25 00:16] LABS: Magnesium 0.6 mg/dl (1.8-2.4)
[2020-04-25] MEDS ORDERED: MAGNESIUM SULFATE / D5W 1 GM/100 ML BAG IV STA (00:17)
[2020-04-25] MEDS: MAGNESIUM SULFATE / D5W 1 GM/100 ML BAG IV SCH ×6 (00:56→08:07)
[2020-04-25 01:02] LABS: Appearance Urine Cloudy (Clear); Bilirubin Urine Negative (Negative); Blood Urine 3+ (Negative); Color Urine Red; Glucose Urine UA Negative (Negative); Ketones Urine Negative (Negative); Leukocyte Esterase Urine Negative (Negative); Nitrite Urine Negative (Negative); Protein Urine 3+ (Negative); Urobilinogen Urine Negative (Negative)
[2020-04-25 01:05] LABS: RBC Urine >30 /hpf (0-4)
[2020-04-25 01:06] LABS: WBC Urine >30 /hpf (0-5)
[2020-04-25 01:07] LABS: Bacteria Urine 1+ (Negative)
--- NOTE | 2020-04-25 01:26 | History & Physical Report ---
Date of Service April 25, 2020 Assessment & Plan (1) Symptomatic anemia: Acute on chronic anemia Secondary to slow bleed ER FOBT was negative recent diagnosis of bladder mass probable metastatic malignancy as per outpatient Uro eval Exertional chest pain, S OB for a few years PE vs unstable angina (hx CAD status post stent) Hypomagnesemia, hypokalemia possibly from poor p.o. intake AAA on recent outpatient imaging hypertension, slightly elevated hyperlipidemia on statin Rx valvular heart disease (moderate MR/mild TR/AR on TTE 2016) COPD, not in acute exacerbation CAP, incidental finding on outpatient imaging, patient not septic, ongoing doxycycline Rx past tobacco abuse. PCU given chest pain complaints Transfuse PRBC to maintain hemoglobin greater than 8 Appropriate to hold aspirin for now Urology consult Re: Hematuria CT chest PE study TTE RE exertional chest pain, S OB a few years duration as per patient Cardiology consult if PE work-up negative for chest pain complaints given history CAD, upcoming urologic surgery Replace electrolytes Outpatient Vascular Surgery referral for AAA DVT prophylaxis. SCDs RE bleed Full code Case discussed with Dr. Bates (urologist transportation technician). Patient okay to stay at [facility] for now. Patient's requesting updates from providers. Ms. Greta Salinas, contact numbers [phone] 01/30 [phone]. Text document was generated using [employer] voice recognition software. It may contain grammatical or spelling errors. Kindly contact undersigned for clarification of any documentation item in question. History of Present Illness Chief Complaint: Anemia, abnormal blood work Primary Care Provider: Savanah Geiger DO History obtained from patient, family, and records. Medical history significant for CAD status post stent, PVD, hypertension, hyperlipidemia, valvular heart disease (moderate MR/mild TR/AR on TTE 2016), COPD, chronic anemia (baseline hemoglobin of 8), recent diagnosis of bladder mass probable metastatic malignancy, past tobacco abuse. Last confinement September 2019 for sepsis secondary to pneumonia. Patient noted intermittent gross hematuria symptoms since June 2019 with occasional left-sided back pain. Patient unable to go for outpatient renal ultrasound ordered by PCP in September 2019 as per notes. 2 months ago, gross hematuria noted to be more consistent with clot passage. No fever, no chills, no unusual abdominal discomfort. Unquantified weight loss. Patient seen by [facility]rology last week for hematuria. Outpatient CT urography showed large bladder mass with pathologic destructive lesion of the left 10th posterior rib. 5 cm infrarenal AAA noted. Right lower lobe pneumonia. Indeterminate enhancement of the rectum. Patient with junky cough symptoms without aspiration, fever, chills. Doxycycline Rx initiated outpatient for pneumonia on x-ray. Outpatient cystoscopy 2 days ago at [facility] disclosed an enhancing bladder mass measuring 5.8 x 4 cm abutting the right bladder wall. 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 TURBT recommended by [facility] urologist. Complex surgery will be done better by urology cancer specialist at [facility] as per note. Patient evaluated by [facility] urologist yesterday. TURBT tentative schedule on May 13, 2020. Left 10th rib lesion concerning for metastatic disease to be biopsied after diagnosis confirmed on TURBT as per note. Preop medicine eval recommended. Outpatient vascular surgery referral for AAA recommended. Outpatient hemoglobin noted to be 5.4. Usual episodic substernal chest pain nonradiating with shortness of breath usually related to exertion for a few years now as per patient. Dark stools attributed to iron as per patient. Usual gross hematuria symptoms as per patient. Patient denies headache symptoms. Patient directed to ER by [facility] [place] urologist on-call. 1 unit packed RBC transfused at the ER. Medical History as above Surgical History : Cholecystectomy Family History : Hypertension Personal/Social history : Past tobacco/alcohol abuse, retired from contractor work Allergies Allergy/AdvReac Type Severity Reaction Status Date / Time shellfish derived Allergy Intermediate HIVES Verified 04/24/20 22:47 Home Medications Home Medications Medication Instructions Recorded Confirmed Type aspirin 81 mg PO DAILY 09/29/19 04/24/20 History atorvastatin 80 mg PO QPM 09/29/19 04/24/20 History lisinopril 20 mg PO DAILY 09/29/19 04/24/20 History metoprolol tartrate 25 mg PO BID 09/29/19 04/24/20 History nitroglycerin 0.4 mg SUBLINGUAL DAILY PRN 09/29/19 04/24/20 History pantoprazole 40 mg PO DAILYBB 09/29/19 04/24/20 History Lactobacillus acidophilus 0 cell PO DAILY 04/24/20 04/24/20 History [Probiotic] doxycycline hyclate 100 mg PO BID 04/24/20 04/24/20 History ferrous sulfate 325 mg PO BID 04/24/20 04/24/20 History Past Med/Surg History Medical History (Updated 04/25/20 @ 13:44 by Winnie Patel DO) Acute recurrent pancreatitis (Acute Unknown) COPD (chronic obstructive pulmonary disease) (Chronic) STEMI (ST elevation myocardial infarction) (Acute) Social History Smoking Status: Current every day smoker Second Hand Exposure: No; Do You Dip or Chew Tobacco: No; Tobacco Cessation Education Requested by Patient: No Hx Alcohol Use: No Hx Substance Use: Yes Last Used Substance: Just Prior to Arrival Preferred Language: Cook Islander Communication Ability: Effective Rubber Stamp Maker Required: No Beliefs That Will Affect Care: None Current Living Situation: Spouse Other Information That Helps Us Care for You: No Feels Safe at Home: Yes Safety Concerns: Feels Safe At This Time Review of Systems Review of Systems: As per HPI, all 10 systems reviewed, all other ROS negative Physical Exam Physical Exam: GENERAL: Comfortable, mild hearing impairment, no respiratory distress SKIN: Pallor, warm HEENT: Pale palpebral conjunctivae, no ptosis, dry buccal mucosa NECK : Supple, no tenderness CHEST : Decreased breath sounds, bony nodularity left posterior mid back, no tenderness HEART : RRR, systolic murmur ABDOMEN: Some distention, nontender RECTAL : Intact sphincter, dark stool (FOBT negative) EXTREMITIES : No LE swelling/tenderness, no other conspicuous deformities noted NEUROLOGIC : Coherent, upper lip asymmetry, mild hearing impairment, no other gross focality Results & Data Results & Data ([facility]) Vital Signs (Past 12 Hours) Vital Signs Temp Pulse Resp BP Pulse Ox 04/25/20 00:55 36.9 C 82 18 144/90 H 99 04/25/20 00:45 83 20 144/90 H 98 04/25/20 00:40 36.9 C 83 18 153/88 H 99 04/25/20 00:30 84 22 153/88 H 100 04/25/20 00:25 36.8 C 82 15 146/86 H 97 04/25/20 00:00 82 20 133/92 98 04/24/20 23:30 82 20 119/69 96 04/24/20 22:58 86 23 126/76 99 04/24/20 22:54 84 20 98 04/24/20 21:40 36.9 C 86 99 H 134/86 99 Laboratory Results Laboratory Results WBC 8.87 K/uL (4.8-10.8) 04/24/20 22:18 RBC 1.52 M/uL (4.7-6.1) L 04/24/20 22:18 Hgb 4.8 g/dL (14.0-18.0) L* 04/24/20 22:18 Hct 15.8 % (42-52) L* 04/24/20 22:18 MCV 103.9 fL (80-100) H 04/24/20 22:18 MCH 31.6 pg (25-34) 04/24/20 22:18 MCHC 30.4 g/dL (32-36) L 04/24/20 22:18 Plt Count 185 K/uL (130-400) 04/24/20 22:18 Immature Gran % (Auto) 1.0 % 04/24/20 22:18 Neut % (Auto) 59.7 % 04/24/20 22:18 Lymph % (Auto) 21.3 % 04/24/20 22:18 [place] % (Auto) 12.0 % 04/24/20 22:18 Eos % (Auto) 5.7 % 04/24/20 22:18 Baso % (Auto) 0.3 % 04/24/20 22:18 Neut # (Auto) 5.29 K/uL (1.4-6.5) 04/24/20 22:18 Lymph # (Auto) 1.89 K/uL (1.2-3.4) 04/24/20 22:18 [place] # (Auto) 1.06 K/uL (0.11-0.59) H 04/24/20 22:18 Eos # (Auto) 0.51 K/uL (0-0.5) H 04/24/20 22:18 Baso # (Auto) 0.03 K/uL (0-0.2) 04/24/20 22:18 Immature Gran # (Auto) 0.09 K/uL (0.00-0.02) H 04/24/20 22:18 Absolute Nucleated RBC 0.10 K/uL (0-0) H 04/24/20 22:18 Nucleated RBC % (auto) 1.1 % 04/24/20 22:18 Tear Drop Cells 1+ 04/24/20 22:18 Ovalocytes 1+ 04/24/20 22:18 PT 13.5 Seconds (9.0-12.0) H 04/24/20 22:18 INR 1.3 (0.9-1.1) H 04/24/20 22:18 APTT 26.1 Seconds (21.0-31.0) 04/24/20 22:18 PTT Ratio 0.9 04/24/20 22:18 Sodium 137 mmol/L (136-145) 04/24/20 22:18 Potassium 2.9 mmol/L (3.5-5.1) L 04/24/20 22:18 Chloride 107 mmol/L (98-107) 04/24/20 22:18 Carbon Dioxide 26 mmol/L (21-32) 04/24/20 22:18 Anion Gap 4.0 (3-11) 04/24/20 22:18 BUN 19 mg/dl (7-18) H 04/24/20 22:18 Creatinine 1.26 mg/dl (0.6-1.4) 04/24/20 22:18 Est Cr Clr Drug Dosing 56.8 ml/min 04/24/20 22:18 Est GFR ( Amer) 67.5 04/24/20 22:18 Est GFR (Non-Af Amer) 58.2 04/24/20 22:18 BUN/Creatinine Ratio 15.1 (10-20) 04/24/20 22:18 Glucose 108 mg/dl (70-99) H 04/24/20 22:18 Calcium 6.5 mg/dl (8.5-10.1) L 04/24/20 22:18 Magnesium 0.6 mg/dl (1.8-2.4) L* 04/24/20 22:18 Total Bilirubin 0.4 mg/dl (0.2-1) 04/24/20 22:18 AST 10 U/L (15-37) L 04/24/20 22:18 ALT 18 U/L (12-78) 04/24/20 22:18 Alkaline Phosphatase 112 U/L (45-117) 04/24/20 22:18 Troponin I < 0.015 ng/ml (0-0.045) 04/24/20 22:18 Total Protein 8.6 gm/dl (6.4-8.2) H 04/24/20 22:18 Albumin 2.5 gm/dl (3.4-5.0) L 04/24/20 22:18 Globulin 6.1 gm/dl (2.5-4.0) H 04/24/20 22:18 Albumin/Globulin Ratio 0.4 (0.9-2) L 04/24/20 22:18 Urine Color Red 04/24/20 20:30 Urine Appearance Cloudy (Clear) A 04/24/20 20:30 Urine pH 7.0 (4.5-7.5) 04/24/20 20:30 Ur Specific [place] 1.020 (1.000-1.030) 04/24/20 20:30 Urine Protein 3+ (Negative) H 04/24/20 20:30 Urine Glucose (UA) Negative (Negative) 04/24/20 20:30 Urine Ketones Negative (Negative) 04/24/20 20:30 Urine Blood 3+ (Negative) H 04/24/20 20:30 Urine Nitrite Negative (Negative) 04/24/20 20:30 Urine Bilirubin Negative (Negative) 04/24/20 20:30 Urine Urobilinogen Negative (Negative) 04/24/20 20:30 Ur Leukocyte Esterase Negative (Negative) 04/24/20 20:30 Urine RBC >30 /hpf (0-4) H 04/24/20 20:30 Urine WBC >30 /hpf (0-5) H 04/24/20 20:30 Ur Epithelial Cells 5-10 /lpf (0-5) H 04/24/20 20:30 Urine Bacteria 1+ (Negative) H 04/24/20 20:30 Blood Type O Negative 04/24/20 22:33 Blood Type Recheck O Negative 04/24/20 23:05 Antibody Screen NEGATIVE 04/24/20 22:33 Crossmatch See Detail 04/24/20 22:33 Diagnostic Findings Chest x-ray as per my interpretation cardiomegaly EKG as per my interpretation : Rate 85, NSR, normal axis, LVH, inferior infarct
[2020-04-25] MEDS ORDERED: NITROGLYCERIN SL 0.4 MG/TAB TAB SL PRN (02:23)
[2020-04-25] MEDS ORDERED: PROMETHAZINE HCL 12.5 MG in SODIUM CHLORIDE 0.9% 50 ML IV PRN (02:23)
[2020-04-25] MEDS ORDERED: POTASSIUM CHLORIDE 20 MEQ TABCR PO STA (02:23)
[2020-04-25] MEDS ORDERED: SODIUM CHLORIDE 0.9% 250 ML IV PRN ×2 (02:23)
[2020-04-25] MEDS: PANTOprazole 40 MG TAB PO SCH (06:07)
[2020-04-25] MEDS: lisinopriL 20 MG TAB PO SCH (06:07)
[2020-04-25] MEDS ORDERED: LORazepam 0.25 MG/0.5 ML VIAL IV PRN (06:18)
[2020-04-25] MEDS: METOPROLOL TARTRATE 25 MG TAB PO SCH ×2 (07:15→21:09)
--- NOTE | 2020-04-25 07:36 | XRay Report ---
XR chest 1V portable CLINICAL HISTORY: cp dyspnea COMPARISON STUDY: 09/29/2019 FINDINGS: Mild cardiomegaly. Nonspecific interstitial prominence of the mid to lower lung regions michela aterally. Pulmonary apices are clear. IMPRESSION: 1. Moderate cardiomegaly. 2. Mild nonspecific interstitial prominence of the mid and lower lung regions bilaterally. ACT 112: Negative or not required by law. The above report was generated using voice recognition software. It may contain grammatical, syntax or spelling errors. Electronically signed by: Octavio Dobbs M.D. 04/25/2020 7:34 AM
[2020-04-25] MEDS ORDERED: OPTIRAY 320 125ml IV ONE (07:39)
--- NOTE | 2020-04-25 08:24 | CT Scan Report ---
CT angio chest PE protocol CT DOSE: 420.16 mGy.cm HISTORY: Dyspnea. Moderate carcinoma. PE TECHNIQUE: Multiaxial CT images of the chest were performed following the intravenous administration of contrast to evaluate the pulmonary arteries. Maximal intensity projection images were also obtaine d. A dose lowering technique was utilized adhering to the principles of ALARA. COMPARISON STUDY: None. FINDINGS: Moderate atherosclerotic change and ectasia of the thoracic aorta. No evidence for aneurysm or dissection. The pulmonary vasculature enhances appropriately. There are no major filling defects. Evaluation of lung parenchyma demonstrates partial consolidative infiltrate right lower lobe. This is associated with a small right effusion. Interstitial infiltrative change left lung base. Underlying emphysematous changes present throughout. This is considered mild to moderate. IMPRESSION: 1. No evidence for pulmonary embolus. 2. Right and to a lesser extent left basilar parenchymal infiltrates.. 3. Small bilateral pleural effusions. 4. Emphysematous change. ACT 112: Negative or not required by law. The above report was generated using voice recognition software. It may contain grammatical, syntax or spelling errors. Electronically signed by: Octavio Dobbs M.D. 04/25/2020 8:23 AM
[2020-04-25] MEDS: DOXYCYCLINE HYCLATE 100 MG CAP PO SCH ×2 (08:46→21:10)
[2020-04-25] MEDS ORDERED: METOPROLOL TARTRATE 25 MG TAB PO SCH (09:00)
[2020-04-25] MEDS ORDERED: NON-FORMULARY MEDICATION (Lactobacillus Acidophilus [Probiotic] 1 cell) PO SCH (09:00)
[2020-04-25] MEDS ORDERED: lisinopriL 20 MG TAB PO SCH (09:00)
[2020-04-25] MEDS: FERROUS SULFATE 325 MG TAB PO SCH ×2 (11:17→16:07)
[2020-04-25] MEDS: NICOTINE 21 MG/24 HR TDSY TD SCH (11:17)
[2020-04-25 13:30] LABS: Hematocrit (blood only) 23.1 % (42-52); Hemoglobin 7.4 g/dL (14.0-18.0); Mean Corpuscular Hemoglobin 30.8 pg (25-34); Mean Corpuscular Volume 96.3 fL (80-100); Mean Platelet Volume 9.4 fL (7.4-10.4); Nucleated RBC # (auto) 0.07 K/uL (0-0); Nucleated RBC % (auto) 0.7 %; Platelet Count 165 K/uL (130-400); RDW Coefficient of Variation 21.8 % (11.5-14.5); RDW Standard Deviation 73.3 fL (36.4-46.3); White Blood Count 9.11 K/uL (4.8-10.8)
--- NOTE | 2020-04-25 13:35 | Hospitalist Progress Note ---
Date of Service April 25, 2020 Assessment & Plan (1) Symptomatic anemia: H/H 5/15 on arrival 2/2 gross hematuria for months 2/2 bladder malignancy. He has a TURBT scheduled for two weeks in [place]. Transfused 3 units overnight with post-transfusion H/H 7.01/15. Will give additional unit now. Will monitor CBC, coag factors in setting of clotting factor-poor blood products, will monitor calcium and ionized calcium levels in setting of multiple units of citrated blood products. Appears to feel better at this time. (2) Bladder cancer: [facility] for definitive pathology and surgical management via TURBT in two weeks at [facility]. This may be able to be performed here, however. Defer to Urology. Cont supportive care and resuscitation with blood products over the weekend. Wilson in place, flush if needed. If significant amount of clots, may need to remove. Patient denies pain. (3) Hematuria: 2/2 above. Cont supportive care with transfusions as needed. (4) Hypomagnesemia: Replace with 4 grams and repeat pending. (5) Pneumonia: Pneumonia diagnosed on recent CT scan 04/17. Started 10 dy course of doxy on 04/23. He is breathing well on room air. No reported respiratory symptoms. (6) Hypokalemia: replace and repeat labwork pending. (7) Smoker: Declines Nicoderm patch. Encouraged to stay quit. (8) DVT prophylaxis: SCDs Full Code Dispo-cont hospitalization. Winnie Patel DO [facility] Hospitalist Admission and Anticipated Discharge Date Admission Date: April 25, 2020 Subjective Feels improved today although he is moer focused on downplaying his symptoms leading up to this. Tolerating PO Asking to go home Reports persistent gross hematuria Denies smoking-declines nicotine patch Review of Systems Review of Systems: All systems reviewed & are unremarkable except as noted in Subjective Physical Exam Physical Exam: CONSTITUTIONAL: WNWD, vitals as above, generally well- appearing EYES: normal conjunctivae, no scleral icterus ENT: external ear and nose normal, oropharynx clear, MMM RESPIRATORY: clear to auscultation bilaterally, no crackles, rales or wheezes, normal respiratory effort CARDIOVASCULAR: regular rate and rhythm, S1 and 2 heard without murmurs, gallops or rubs, no JVD, no peripheral edema GASTROINTESTINAL: soft, nontender, nondistended MUSCULOSKELETAL: strength 5/5 throughout, head is normocephalic and atraumatic SKIN: warm and dry NEUROLOGIC: CN 2-12 grossly intact, normal cognition, normal speech, no gross focal deficit. PSYCHIATRIC: alert cooperative and oriented Results & Data Results & Data ([facility]) Vital Signs (Past 12 Hours) Vital Signs Temp Pulse Pulse Resp BP BP Pulse Ox 04/25/20 11:53 36.7 C 78 17 150/84 H 92 04/25/20 11:15 85 04/25/20 11:03 36.5 C 74 17 152/80 H 95 04/25/20 10:03 36.6 C 70 17 147/83 H 95 04/25/20 09:33 36.7 C 70 16 155/88 H 97 04/25/20 09:18 36.6 C 68 17 166/93 H 96 04/25/20 08:56 36.7 C 71 17 169/89 H 96 04/25/20 07:15 82 166/90 H 04/25/20 07:09 37.1 C 75 18 155/86 H 92 04/25/20 05:44 36.7 C 76 18 150/89 H 95 04/25/20 05:16 36.7 C 69 18 157/89 H 98 04/25/20 04:16 36.6 C 71 18 146/76 H 97 04/25/20 03:47 37.0 C 70 18 131/78 98 04/25/20 03:21 36.3 C L 77 18 141/80 H 100 04/25/20 03:11 36.8 C 78 16 173/98 H 100 04/25/20 03:05 36.7 C 81 18 177/85 H 100 04/25/20 02:25 36.7 C 81 18 177/85 H 100 04/25/20 02:24 37.0 C 81 81 18 167/89 H 167/89 H 99 04/25/20 02:19 85 Laboratory Results Short CBC 04/24/20 04/25/20 Range/Units 22:18 13:15 WBC 8.87 9.11 (4.8-10.8) K/uL Hgb 4.8 L* 7.4 L (14.0-18.0) g/dL Hct 15.8 L* 23.1 L (42-52) % Plt Count 185 165 (130-400) K/uL BMP 04/24/20 22:18 Sodium 137 Potassium 2.9 L Chloride 107 Carbon Dioxide 26 BUN 19 H Creatinine 1.26 Glucose 108 H Calcium 6.5 L Cardiac Enzymes 04/24/20 Range/Units 22:18 Troponin I < 0.015 (0-0.045) ng/ml Liver Function 04/24/20 Range/Units 22:18 Total Bilirubin 0.4 (0.2-1) mg/dl AST 10 L (15-37) U/L ALT 18 (12-78) U/L Alkaline Phosphatase 112 (45-117) U/L Albumin 2.5 L (3.4-5.0) gm/dl Urine 04/24/20 Range/Units 20:30 Urine Color Red Urine Appearance Cloudy A (Clear) Urine pH 7.0 (4.5-7.5) Ur Specific [place] 1.020 (1.000-1.030) Urine Protein 3+ H (Negative) Urine Glucose (UA) Negative (Negative) Medications Administered Current Inpatient Medications Atorvastatin Calcium (Lipitor) 80 mg PO QPM [facility] Stop: 05/25/20 20:59 Doxycycline Hyclate (Vibramycin) 100 mg PO BID [facility] Stop: 05/03/20 21:01 Last Admin: 04/25/20 08:46 Dose: 100 mg Documented by: Ferrous Sulfate (Feosol) 325 mg PO BID@1100,1700 [facility] Stop: 05/25/20 10:59 Last Admin: 04/25/20 11:17 Dose: 325 mg Documented by: Promethazine HCl 12.5 mg/ (Sodium Chloride) 50.5 mls @ 202 mls/hr IV Q6H PRN PRN Reason: Nausea And Vomiting Stop: 05/25/20 02:22 Lorazepam (Ativan) 0.25 mg in 0.5 mls @ 0.5 mls/min IV Q4H PRN PRN Reason: Anxiety Stop: 05/25/20 06:17 Last Admin: 04/25/20 06:44 Dose: 0.5 mls/min Documented by: Lisinopril (Zestril) 20 mg PO DAILY [facility] Stop: 05/25/20 05:59 Last Admin: 04/25/20 06:07 Dose: 20 mg Documented by: Metoprolol Tartrate (Lopressor) 25 mg PO BID [facility] Stop: 05/25/20 06:29 Last Admin: 04/25/20 07:15 Dose: 25 mg Documented by: Miscellaneous (Remove Nicoderm Patch) 1 ea N/A DAILY@0859 [facility] Stop: 05/26/20 08:58 Nicotine (Nicoderm Cq) 21 mg TD QAM [facility] Stop: 05/25/20 09:44 Last Admin: 04/25/20 11:17 Dose: Not Given Documented by: Nitroglycerin (Nitrostat) 0.4 mg SL UD PRN PRN Reason: Chest Pain Stop: 05/25/20 02:22 Pantoprazole Sodium (Protonix) 40 mg PO DAILYBB [facility] Stop: 05/25/20 06:29 Last Admin: 04/25/20 06:07 Dose: 40 mg Documented by: Tramadol HCl (Ultram) 25 mg PO Q4H PRN PRN Reason: Pain Stop: 05/25/20 02:22 (1) Hematuria Hematuria type: unspecified type Qualified Code(s): R31.9 - Hematuria, unspecified (2) Pneumonia Laterality: right Lung location: lower lobe of lung Pneumonia type: due to unspecified organism Qualified Code(s): J18.9 - Pneumonia, unspecified organism
--- NOTE | 2020-04-25 13:35 | Electrocardiogram Report ---
Test Reason : Blood Pressure : / mmHG Vent. Rate : 081 BPM Atrial Rate : 081 BPM P-R Int : 176 ms QRS Dur : 102 ms QT Int : 406 ms P-R-T Axes : -05 004 039 degrees QTc Int : 471 ms Sinus rhythm with Premature atrial complexes Minimal voltage criteria for LVH, may be normal variant Inferior infarct (cited on or before 05-JAN-2015) Abnormal ECG When compared with ECG of 30-SEP-2019 09:15, Premature atrial complexes are now Present T wave inversion no longer evident in Inferior leads Confirmed by Julio Ricks ([id number]) on 04/25/2020 1:34:45 PM Referred By: Mehul Ash Confirmed By:Julio Ricks
--- NOTE | 2020-04-25 13:44 | Electrocardiogram Report ---
Test Reason : Blood Pressure : / mmHG Vent. Rate : 087 BPM Atrial Rate : 087 BPM P-R Int : 170 ms QRS Dur : 096 ms QT Int : 390 ms P-R-T Axes : 045 017 027 degrees QTc Int : 469 ms Normal sinus rhythm Voltage criteria for left ventricular hypertrophy Cannot rule out Inferior infarct (cited on or before 05-JAN-2015) Abnormal ECG When compared with ECG of 24-APR-2020 22:48, (unconfirmed) Premature atrial complexes are no longer Present T wave amplitude has increased in Lateral leads Confirmed by Julio Ricks ([id number]) on 04/25/2020 1:43:56 PM Referred By: Mehul Ash Confirmed By:Julio Ricks
[2020-04-25 13:47] LABS: Anisocytosis Present; Basophils # (auto) 0.02 K/uL (0-0.2); Basophils % (auto) 0.2 %; Eosinophils # (auto) 0.42 K/uL (0-0.5); Eosinophils % (auto) 4.6 %; Immature Granulocytes # (auto) 0.09 K/uL (0.00-0.02); Lymphocytes # (auto) 1.23 K/uL (1.2-3.4); Lymphocytes % (auto) 13.5 %; Monocytes # (auto) 1.15 K/uL (0.11-0.59); Monocytes % (auto) 12.6 %; Neutrophils % (auto) 68.1 %; Polychromasia 1+
[2020-04-25 13:48] LABS: BUN Creatinine Ratio 14.9 (10-20); Calcium 7.2 mg/dl (8.5-10.1); Creatinine Clr Calc Pharmacy 62.2 ml/min; Est GFR (African American) 79.5; Est GFR (Non-African American) 68.6; Magnesium 1.8 mg/dl (1.8-2.4); Potassium 3.6 mmol/L (3.5-5.1)
[2020-04-25] MEDS ORDERED: CALCIUM GLUCONATE 10% 1,000 MG in SODIUM CHLORIDE 0.9% 50 ML IV STA (14:23)
--- NOTE | 2020-04-25 14:48 | Urology Consultation ---
Date of Consultation April 25, 2020 Assessment & Plan (1) Bladder cancer: Long discussion with patient and partner at the bedside. Thus far the patient has responded well to the transfusion. Would continue to transfuse with a goal of 10. Monitor continued blood loss due to bladder tumor along with clotting factors. I reviewed many options with the patient. We would like to optimize him as much as possible before surgery which includes treating both anemia and pneumonia, however, if the bleeding persists we will have to look at early intervention with either TURBT here at [facility] or transfer to [place] to expedite surgery. Will continue to trend labs and re-eval. (2) Symptomatic anemia: History of Present Illness Attending Physician: Winnie Patel, 70 y/o male admitted with Low Hg and pneumonia. A very detailed history can be found in H&P by Dr. Patel. A summary of his urologic hx is as follows. He was recently found to have abd pain and hematuria. CT Scan in [place] showed a large 6cm bladder mass and possible pneumonia along with a questionable met lesion in the 10th rib. He was scoped by Dr. Palomares who confirmed the presence of a large papillary bladder tumor. He was referred to [place] where he saw Dr. Ogden. He was scheduled for TURBT in [place] on Au 19. At his visit yesterday, pre-op labs were ordered and showed a Hg of 5.4. He was then directed to the hospital for treatment. Hg upon arrival was 4.8. Since admission he has received 3 units of blood with a 4th about to infuse. His last check after 3 units was 7.4. He has hematuria which is persistent. Some generalized abd pain and cough. Allergies Allergy/AdvReac Type Severity Reaction Status Date / Time shellfish derived Allergy Intermediate HIVES Verified 04/24/20 22:47 Home Medications Home Medications Medication Instructions Recorded Confirmed Type aspirin 81 mg PO DAILY 09/29/19 04/24/20 History atorvastatin 80 mg PO QPM 09/29/19 04/24/20 History lisinopril 20 mg PO DAILY 09/29/19 04/24/20 History metoprolol tartrate 25 mg PO BID 09/29/19 04/24/20 History nitroglycerin 0.4 mg SUBLINGUAL DAILY PRN 09/29/19 04/24/20 History pantoprazole 40 mg PO DAILYBB 09/29/19 04/24/20 History Lactobacillus acidophilus 0 cell PO DAILY 04/24/20 04/24/20 History [Probiotic] doxycycline hyclate 100 mg PO BID 04/24/20 04/24/20 History ferrous sulfate 325 mg PO BID 04/24/20 04/24/20 History Patient History Medical History (Updated 04/25/20 @ 13:44 by Winnie Patel, DO) Acute recurrent pancreatitis (Acute Unknown) COPD (chronic obstructive pulmonary disease) (Chronic) STEMI (ST elevation myocardial infarction) (Acute) Social History Smoking Status: Current every day smoker Second Hand Exposure: No; Do You Dip or Chew Tobacco: No; Tobacco Cessation Education Requested by Patient: No Hx Alcohol Use: No Hx Substance Use: Yes Last Used Substance: Just Prior to Arrival Preferred Language: Jordanian Communication Ability: 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 Beliefs That Will Affect Care: None Current Living Situation: Spouse Other Information That Helps Us Care for You: No Feels Safe at Home: Yes Safety Concerns: Feels Safe At This Time Review of Systems Review of Systems: All systems reviewed & are unremarkable except as noted in HPI & below Physical Exam Constitutional: + ill appearing Eyes: PERRL, conjunctivae normal, anicteric sclerae ENMT: external ear and nose normal, oropharynx normal Neck: trachea midline, no thyromegaly Respiratory: + cough Auscultation: + wheezes Cardiovascular: RRR, no murmur, no edema Gastrointestinal (Abdomen): normal bowel sounds, soft, nontender, no hepatosplenomegaly Skin: no rashes, warm and dry Neurologic: patellar DTR's 2+ bilat, sensation intact Genitourinary: no testicular masses, no penis abnormality Lymphatic: no cervical or axillary lymphadenopathy Results & Data Vital Signs (Past 12 Hours) Vital Signs Temp Pulse Pulse Resp BP BP Pulse Ox 04/25/20 11:53 36.7 C 78 17 150/84 H 92 04/25/20 11:15 85 04/25/20 11:03 36.5 C 74 17 152/80 H 95 04/25/20 10:03 36.6 C 70 17 147/83 H 95 04/25/20 09:33 36.7 C 70 16 155/88 H 97 04/25/20 09:18 36.6 C 68 17 166/93 H 96 04/25/20 08:56 36.7 C 71 17 169/89 H 96 04/25/20 07:15 82 166/90 H 04/25/20 07:09 37.1 C 75 18 155/86 H 92 04/25/20 05:44 36.7 C 76 18 150/89 H 95 04/25/20 05:16 36.7 C 69 18 157/89 H 98 04/25/20 04:16 36.6 C 71 18 146/76 H 97 04/25/20 03:47 37.0 C 70 18 131/78 98 04/25/20 03:21 36.3 C L 77 18 141/80 H 100 04/25/20 03:11 36.8 C 78 16 173/98 H 100 04/25/20 03:05 36.7 C 81 18 177/85 H 100 PG Care Time/CCT Total # of Minutes Spent Total Time Spent with Patient: Total time spent is greater than 50% in coordination of care (as documented) at patient's floor/unit and/or counseling patient: 45 minutes Coding Level of Care Code 93435 Initial Inpt Care Lvl 3 Diagnoses Bladder cancer C67.9 Symptomatic anemia D64.9
[2020-04-25 19:09] LABS: Hematocrit (blood only) 25.1 % (42-52); Hemoglobin 8.4 g/dL (14.0-18.0); Mean Corpuscular Hemoglobin 31.5 pg (25-34); Mean Corpuscular Hgb Conc 33.5 g/dL (32-36); Mean Platelet Volume 9.6 fL (7.4-10.4); Nucleated RBC # (auto) 0.08 K/uL (0-0); Nucleated RBC % (auto) 0.9 %; Platelet Count 164 K/uL (130-400); RDW Coefficient of Variation 21.9 % (11.5-14.5); RDW Standard Deviation 70.1 fL (36.4-46.3); Red Blood Count 2.67 M/uL (4.7-6.1); White Blood Count 8.93 K/uL (4.8-10.8)
[2020-04-25 19:55] LABS: Fibrinogen 233 mg/dl (184-400); INR 1.1 (0.9-1.1); Partial Thromboplastin Ratio 0.9; Partial Thromboplastin Time 26.3 Seconds (21.0-31.0); Prothrombin Time 11.8 Seconds (9.0-12.0)
[2020-04-25] MEDS: LORazepam 0.5 MG TAB PO PRN (21:04)
[2020-04-25] MEDS: ATORVASTATIN 40 MG TAB PO SCH (21:09)
[2020-04-25] MEDS: TRAMADOL HCL 50 MG TABLET PO PRN (21:42)
[2020-04-26] MEDS: PANTOprazole 40 MG TAB PO SCH (06:20)
[2020-04-26 07:45] LABS: Partial Thromboplastin Ratio 0.9; Partial Thromboplastin Time 26.3 Seconds (21.0-31.0)
[2020-04-26 08:00] LABS: Albumin Level 2.5 gm/dl (3.4-5.0); BUN Creatinine Ratio 13.6 (10-20); Calcium 8.2 mg/dl (8.5-10.1); Creatinine Clr Calc Pharmacy 59.4 ml/min; Est GFR (African American) 75.4; Magnesium 1.6 mg/dl (1.8-2.4)
[2020-04-26] MEDS: NICOTINE 21 MG/24 HR TDSY TD SCH (08:19)
[2020-04-26] MEDS: METOPROLOL TARTRATE 25 MG TAB PO SCH ×2 (08:22→21:00)
[2020-04-26] MEDS: lisinopriL 20 MG TAB PO SCH (08:22)
[2020-04-26] MEDS: DOXYCYCLINE HYCLATE 100 MG CAP PO SCH ×2 (08:23→21:00)
[2020-04-26] MEDS: LORazepam 0.5 MG TAB PO PRN (08:26)
[2020-04-26 09:11] LABS: Hematocrit (blood only) 24.7 % (42-52); Hemoglobin 8.3 g/dL (14.0-18.0); Mean Corpuscular Hemoglobin 31.8 pg (25-34); Mean Corpuscular Hgb Conc 33.6 g/dL (32-36); Mean Corpuscular Volume 94.6 fL (80-100); Mean Platelet Volume 9.7 fL (7.4-10.4); Nucleated RBC # (auto) 0.06 K/uL (0-0); Nucleated RBC % (auto) 0.6 %; Platelet Count 167 K/uL (130-400); RDW Coefficient of Variation 21.7 % (11.5-14.5); RDW Standard Deviation 72.2 fL (36.4-46.3); Red Blood Count 2.61 M/uL (4.7-6.1); White Blood Count 9.94 K/uL (4.8-10.8)
[2020-04-26] MEDS: MAGNESIUM SULFATE / D5W 1 GM/100 ML BAG IV SCH ×2 (10:50→12:11)
[2020-04-26] MEDS: FERROUS SULFATE 325 MG TAB PO SCH ×2 (10:53→18:07)
[2020-04-26] MEDS ORDERED: BELLADONNA/OPIUM SUPP 60 MG SUPP PR ONE (12:34)
[2020-04-26] MEDS ORDERED: PHENAZOPYRIDINE HCL 100 MG TAB PO PRN (12:35)
[2020-04-26] MEDS ORDERED: ONDANSETRON INJ 2 MG/ML 2 ML VIAL IV PRN (13:13)
[2020-04-26] MEDS ORDERED: ONDANSETRON INJ 2 MG/ML 2 ML VIAL IV ONE (13:14)
--- NOTE | 2020-04-26 13:39 | Electrocardiogram Report ---
Test Reason : Blood Pressure : / mmHG Vent. Rate : 074 BPM Atrial Rate : 074 BPM P-R Int : 186 ms QRS Dur : 096 ms QT Int : 420 ms P-R-T Axes : 009 013 034 degrees QTc Int : 466 ms Normal sinus rhythm Voltage criteria for left ventricular hypertrophy Abnormal ECG When compared with ECG of 25-APR-2020 06:20, No significant change was found Confirmed by Julio Ricks ([id number]) on 04/26/2020 1:39:10 PM Referred By: Mehul Ash Confirmed By:Julio Ricks
--- NOTE | 2020-04-26 13:43 | Urology Progress Note ---
Date of Service April 26, 2020 Assessment & Plan (1) Bladder cancer: Hematuria from known bladder mass and irritation from mccauley. B&O supp +/- oxybutinin and pyridium for bladder pain. Hg stable Will discuss case with [facility] urologist to see if they would be willing to do TURBT, otherwise, can DC home as he waits for appt at [place]. (2) Hematuria: Subjective Hg stable. Mccauley placed yesterday. Pain. Then removed. Now voiding hematuria. Urge. Pain. Urgency. Review of Systems Review of Systems: All systems reviewed & are unremarkable except as noted in HPI & below Physical Exam Constitutional: WD/WN, vitals as above Skin: no rashes, warm and dry Results & Data Vital Signs (Past 12 Hours) Vital Signs Temp Pulse Resp BP Pulse Ox 04/26/20 11:42 36.9 C 92 H 20 148/73 H 95 04/26/20 08:22 36.8 C 86 18 152/73 H 95 04/26/20 03:32 37.1 C 88 18 159/97 H 94 PG Care Time/CCT Total # of Minutes Spent Total Time Spent with Patient: Total time spent is greater than 50% in coordination of care (as documented) at patient's floor/unit and/or counseling patient: Coding Level of Care Code 85577 Subseq Hosp Care Lvl 2 Diagnoses Bladder cancer C67.9 Hematuria R31.9 Hematuria type: unspecified type (1) Hematuria Hematuria type: unspecified type Qualified Code(s): R31.9 - Hematuria, unspecified
--- NOTE | 2020-04-26 15:19 | Hospitalist Progress Note ---
Date of Service April 26, 2020 Assessment & Plan (1) Symptomatic anemia: H/H 5/15 on arrival 2/2 gross hematuria for months 2/2 bladder malignancy. Responded appropriately to 4 units blood yesterday. Calcium and clotting factors appear normal. He has a TURBT scheduled for two weeks in [place], however, [facility] may be able to perform this here early this week. Incomplete voiding overnight with persistent gross hematuria. Belladonna suppository offered but he declined. Oxybutinin and pyridium also offered but he declined. He had an episode of vomiting and some persistent back and bladder discomfort, however, he declined a CT scan. He also declined Zofran when offered. (2) Bladder cancer: [facility] for definitive pathology and surgical management via TURBT in two weeks at [facility]. This may be able to be performed here, however. Defer to Urology. Cont supportive care and resuscitation with blood products over the weekend. (3) Hematuria: 2/2 above. Cont supportive care with transfusions as needed. (4) Hypomagnesemia: Level 1.7 this am and two additional grams given. Repeat in am. (5) Pneumonia: Pneumonia diagnosed on recent CT scan 04/17. Started 10 dy course of doxy on 04/23. He is breathing well on room air. No reported respiratory symptoms. (6) Hypokalemia: resolved (7) Smoker: Declines Nicoderm patch. Encouraged to stay quit. (8) DVT prophylaxis: SCDs Full Code Dispo-cont hospitalization. Winnie Patel DO [facility] Hospitalist Admission and Anticipated Discharge Date Admission Date: April 25, 2020 Subjective feeling worse today Wilson placed overnight resulted in back pain this was removed with improvement persistent gross hematuria now with incomplete voiding. Review of Systems Review of Systems: All systems reviewed & are unremarkable except as noted in Subjective Physical Exam Physical Exam: CONSTITUTIONAL: WNWD, vitals as above, generally well- appearing EYES: normal conjunctivae, no scleral icterus ENT: external ear and nose normal, MMM, poor dentition. RESPIRATORY: clear to auscultation bilaterally, no crackles, rales or wheezes, normal respiratory effort CARDIOVASCULAR: regular rate and rhythm, S1 and 2 heard without murmurs, gallops or rubs, no JVD, no peripheral edema GASTROINTESTINAL: soft, nontender, nondistended MUSCULOSKELETAL: strength 5/5 throughout, head is normocephalic and atraumatic SKIN: warm and dry NEUROLOGIC: CN 2-12 grossly intact, normal cognition, normal speech, no gross focal deficit. PSYCHIATRIC: alert cooperative and oriented Results & Data Results & Data ([facility]) Vital Signs (Past 12 Hours) Vital Signs Temp Pulse Pulse Resp BP Pulse Ox 04/26/20 13:44 78 04/26/20 11:42 36.9 C 92 H 20 148/73 H 95 04/26/20 08:22 36.8 C 86 18 152/73 H 95 04/26/20 03:32 37.1 C 88 18 159/97 H 94 Laboratory Results Short CBC 04/25/20 04/26/20 Range/Units 18:59 07:08 WBC 8.93 9.94 (4.8-10.8) K/uL Hgb 8.4 L 8.3 L (14.0-18.0) g/dL Hct 25.1 L 24.7 L (42-52) % Plt Count 164 167 (130-400) K/uL BMP 04/26/20 07:07 Sodium 137 Potassium 4.0 Chloride 108 H Carbon Dioxide 26 BUN 16 Creatinine 1.15 Glucose 95 Calcium 8.2 L Liver Function 04/26/20 Range/Units 07:07 Albumin 2.5 L (3.4-5.0) gm/dl Medications Administered Current Inpatient Medications Atorvastatin Calcium (Lipitor) 80 mg PO QPM [facility] Stop: 05/25/20 20:59 Last Admin: 04/25/20 21:09 Dose: 80 mg Documented by: Doxycycline Hyclate (Vibramycin) 100 mg PO BID [facility] Stop: 05/03/20 21:01 Last Admin: 04/26/20 08:23 Dose: 100 mg Documented by: Ferrous Sulfate (Feosol) 325 mg PO BID@1100,1700 EZEKIEL Stop: 05/25/20 10:59 Last Admin: 04/26/20 10:53 Dose: 325 mg Documented by: Promethazine HCl 12.5 mg/ (Sodium Chloride) 50.5 mls @ 202 mls/hr IV Q6H PRN PRN Reason: Nausea And Vomiting Stop: 05/25/20 02:22 Lisinopril (Zestril) 20 mg PO DAILY [facility] Stop: 05/25/20 05:59 Last Admin: 04/26/20 08:22 Dose: 20 mg Documented by: Lorazepam (Ativan) 0.5 mg PO Q8H PRN PRN Reason: Anxiety Stop: 05/25/20 15:43 Last Admin: 04/26/20 08:26 Dose: 0.5 mg Documented by: Metoprolol Tartrate (Lopressor) 25 mg PO BID [facility] Stop: 05/25/20 06:29 Last Admin: 04/26/20 08:22 Dose: 25 mg Documented by: Miscellaneous (Remove Nicoderm Patch) 1 ea N/A DAILY@0859 [facility] Stop: 05/26/20 08:58 Last Admin: 04/26/20 08:19 Dose: Not Given Documented by: Nicotine (Nicoderm Cq) 21 mg TD QAM [facility] Stop: 05/25/20 09:44 Last Admin: 04/26/20 08:19 Dose: Not Given Documented by: Nitroglycerin (Nitrostat) 0.4 mg SL UD PRN PRN Reason: Chest Pain Stop: 05/25/20 02:22 Ondansetron HCl (Zofran) 4 mg IV Q8H PRN PRN Reason: nausea/vomiting Stop: 05/26/20 13:14 Oxybutynin Chloride (Ditropan) 5 mg PO BID PRN PRN Reason: bladder discomfort Stop: 05/26/20 12:44 [facility]op[facility]: 05/25/20 06:29 Last Admin: 04/26/20 06:20 Dose: 40 mg Documented by: Phenazopyridine HCl (Pyridium) 100 mg PO TID PRN PRN Reason: bladder spasms Stop: 05/26/20 12:34 Tramadol HCl (Ultram) 25 mg PO Q4H PRN PRN Reason: Pain Stop: 05/25/20 02:22 Last Admin: 04/25/20 21:42 Dose: 25 mg Documented by: (1) Hematuria Hematuria type: unspecified type Qualified Code(s): R31.9 - Hematuria, unspecified (2) Pneumonia Laterality: right Lung location: lower lobe of lung Pneumonia type: due to unspecified organism Qualified Code(s): J18.9 - Pneumonia, unspecified organism
[2020-04-26] MEDS: ATORVASTATIN 40 MG TAB PO SCH (21:00)
[2020-04-26] MEDS: OXYBUTYNIN CHLORIDE 5 MG TAB PO PRN (21:01)
[2020-04-27] MEDS: PANTOprazole 40 MG TAB PO SCH (06:10)
[2020-04-27 07:47] LABS: Hematocrit (blood only) 23.4 % (42-52); Hemoglobin 7.8 g/dL (14.0-18.0); Mean Corpuscular Hemoglobin 32.4 pg (25-34); Mean Corpuscular Hgb Conc 33.3 g/dL (32-36); Mean Corpuscular Volume 97.1 fL (80-100); Nucleated RBC # (auto) 0.08 K/uL (0-0); Nucleated RBC % (auto) 0.9 %; Platelet Count 160 K/uL (130-400); RDW Coefficient of Variation 20.8 % (11.5-14.5); Red Blood Count 2.41 M/uL (4.7-6.1)
[2020-04-27] MEDS: METOPROLOL TARTRATE 25 MG TAB PO SCH ×2 (07:56→20:26)
[2020-04-27] MEDS: DOXYCYCLINE HYCLATE 100 MG CAP PO SCH ×2 (07:56→20:27)
[2020-04-27] MEDS: lisinopriL 20 MG TAB PO SCH (07:56)
[2020-04-27] MEDS: NICOTINE 21 MG/24 HR TDSY TD SCH (07:57)
[2020-04-27 08:13] LABS: BUN Creatinine Ratio 14.1 (10-20); Calcium 8.1 mg/dl (8.5-10.1); Creatinine Clr Calc Pharmacy 63.8 ml/min; Est GFR (African American) 82.2; Magnesium 1.9 mg/dl (1.8-2.4); Potassium 4.3 mmol/L (3.5-5.1)
[2020-04-27] MEDS ORDERED: fentaNYL citrate 100 MCG/2 ML VIAL ONE (10:02)
[2020-04-27] MEDS ORDERED: MIDAZOLAM HCL 1 MG/ML 2ML VIAL ONE (10:02)
[2020-04-27] MEDS ORDERED: PROPOFOL IV EMULSION 10 MG/ML 20 ML VIAL IV ONE (10:02)
[2020-04-27] MEDS ORDERED: LIDOCAINE HCL 2% 2 ML VIAL/AMP(20MG/ML) INFIL ONE (10:02)
[2020-04-27] MEDS ORDERED: ONDANSETRON INJ 2 MG/ML 2 ML VIAL IV PRN ×2 (10:16→16:06)
[2020-04-27] MEDS ORDERED: ATROPINE SULFATE 0.1 MG/ML 10ML SYR IV PRN ×2 (10:16→16:06)
[2020-04-27] MEDS ORDERED: ePHEDrine sulfate 50 MG/ML AMP IV PRN ×2 (10:16→16:06)
[2020-04-27] MEDS ORDERED: fentaNYL citrate 100 MCG/2 ML VIAL IV PRN ×2 (10:16→16:06)
[2020-04-27] MEDS ORDERED: HYDROmorphone INJ 1 MG/ML SYRINGE IV PRN (10:16)
--- NOTE | 2020-04-27 10:24 | Urology Progress Note ---
Date of Service April 27, 2020 Assessment & Plan (1) Hematuria: Worsening hematuria and discomfort with clot retention and tumor. Risks and benefits discussed at length for procedure. These include bleeding, infection, injury to surrounding tissues or organs, and risks associated with anesthesia. Patient states understanding and agrees to proceed. Will sign consent and schedule. Will set up for Cystoscopy and Clot evacuation and likely transurethral resection of bladder tumor. Present on Admission?: Yes Subjective Patient with known bladder tumor. Had presented with GH and ABLA with Hemoglobin of <5 and required multiple transfusions. Has had gross hematuria intermittently. No severe fevers. Significant bleeding. Had improved yesterday but developed significant hematuria later in the day. Now back to bright red. No severe pain. No other changes. Occasional discomfort in back and groin. Occasional burning. No severe changes. Could not tolerate catheter. Review of Systems Review of Systems: All systems reviewed & are unremarkable except as noted in HPI & below Physical Exam Physical Exam: General: Alert/Arousable. No Acute illness. . HEENT: Inspection normal. Normal inspection of face. Normal inspection of neck. Psychologic: Normal affect/No change in mentation. Respiratory: No use of accessory muscles. No respiratory changes or exacerbation or changes with tachypnea or dyspnea. Cardiovascular: No tachycardia Skin: [place] and Dry. No new rashes or visible lesions. Abdomen: Normal inspection. No guarding. : Gross Hematuria Results & Data Vital Signs (Past 12 Hours) Vital Signs Temp Pulse Resp BP Pulse Ox 04/27/20 07:18 36.3 C L 62 18 152/82 H 96 04/27/20 05:00 36.8 C 69 143/85 H 99 04/26/20 23:46 36.7 C 78 18 145/87 H 98 PG Care Time/CCT Total # of Minutes Spent Total Time Spent with Patient: Total time spent is greater than 50% in coordination of care (as documented) at patient's floor/unit and/or counseling patient: Coding Level of Care Code 01479 Subseq Hosp Care Lvl 3 Diagnoses Hematuria R31.9 Hematuria type: unspecified type (1) Hematuria Hematuria type: unspecified type Qualified Code(s): R31.9 - Hematuria, unspec ified
--- NOTE | 2020-04-27 10:42 | Anesthesiology Consultation ---
Date of Service April 27, 2020 Assessment & Plan (1) Encounter for pre-operative examination: Chart Review Chart Review: Acceptable Risk for Surgery and Patient NOT seen in Pre Admission Testing Consults Requested none History Surgery Operation Date: 04/27/20 09:10 Proposed Procedures p Cystoscopy, Clot Evacuation, Transurethral Resection Bladder Tumor - Bo Garcia, Height/Weight Height: 5 ft 11 in Weight: 68.3 kg Allergies Allergy/AdvReac Type Severity Reaction Status Date / Time shellfish derived Allergy Intermediate HIVES Verified 04/24/20 22:47 Medications Home Medications Medication Instructions Recorded Confirmed Last Taken aspirin 81 mg PO DAILY 09/29/19 04/24/20 04/24/20 atorvastatin 80 mg PO QPM 09/29/19 04/24/20 04/24/20 lisinopril 20 mg PO DAILY 09/29/19 04/24/20 04/24/20 metoprolol tartrate 25 mg PO BID 09/29/19 04/24/20 04/24/20 nitroglycerin 0.4 mg SUBLINGUAL DAILY PRN 09/29/19 04/24/20 Unknown pantoprazole 40 mg PO DAILYBB 09/29/19 04/24/20 04/24/20 Lactobacillus acidophilus 0 cell PO DAILY 04/24/20 04/24/20 04/24/20 [Probiotic] doxycycline hyclate 100 mg PO BID 04/24/20 04/24/20 04/24/20 ferrous sulfate 325 mg PO BID 04/24/20 04/24/20 04/24/20 Active Medications Generic Name Dose Route Start Last Admin Trade Name Freq PRN Reason Stop Dose Admin Atorvastatin Calcium 80 mg 04/25/20 21:00 04/26/20 21:00 Lipitor PO 05/25/20 20:59 80 mg QPM EZEKIEL Administration Doxycycline Hyclate 100 mg 04/25/20 09:00 04/27/20 07:56 Vibramycin PO 05/03/20 21:01 100 mg BID EZEKIEL Administration Ferrous Sulfate 325 mg 04/25/20 11:00 04/26/20 18:07 Feosol PO 05/25/20 10:59 Not Given BID@1100,1700 EZEKIEL Lisinopril 20 mg 04/25/20 06:00 04/27/20 07:56 Zestril PO 05/25/20 05:59 20 mg DAILY EZEKIEL Administration Lorazepam 0.5 mg 04/25/20 15:44 04/26/20 08:26 Ativan PO 05/25/20 15:43 0.5 mg Q8H PRN Administration Anxiety Metoprolol Tartrate 25 mg 04/25/20 06:30 04/27/20 07:56 Lopressor PO 05/25/20 06:29 25 mg BID EZEKIEL Administration Miscellaneous 1 ea 04/26/20 08:59 04/27/20 07:57 Remove Nicoderm Patch N/A 05/26/20 08:58 Not Given DAILY@0859 EZEKIEL Nicotine 21 mg 04/25/20 09:45 04/27/20 07:57 Nicoderm Cq TD 05/25/20 09:44 Not Given QAM EZEKIEL Oxybutynin Chloride 5 mg 04/26/20 12:35 04/26/20 21:01 Ditropan PO 05/26/20 12:44 5 mg BID PRN Administration bladder discomfort Pantoprazole Sodium 40 mg 04/25/20 06:30 04/27/20 06:10 Protonix PO 05/25/20 06:29 40 mg DAILYBB EZEKIEL Administration Tramadol HCl 25 mg 04/25/20 02:23 04/25/20 21:42 Ultram PO 05/25/20 02:22 25 mg Q4H PRN Administration Pain Past Medical History Medical History (Updated 04/27/20 @ 10:46 by Juliocesar Yang MD) Acute recurrent pancreatitis (Acute Unknown) Bladder cancer Chest pain (Inactive) COPD (chronic obstructive pulmonary disease) (Chronic) Hypokalemia Pneumonia (Inactive) Smoker STEMI (ST elevation myocardial infarction) (Acute) Exercise / Class Metabolic Activity III < 4 Walking/Shop/Light housework Past Family History Family History Other Family history non-contributory Past Surgical History Surgical History (Updated 04/27/20 @ 10:45 by Juliocesar Yang MD) History of cholecystectomy Past Anesthesia History No Hx of Anesthesia Complications and No Family Hx of Anesthesia Complications History of PONV No Hx of PONV and No Hx of Motion Sickness Social History Smoking Status: Current every day smoker tobacco type: cigars Do You Dip or Chew Tobacco: No Hx Alcohol Use: No Hx Substance Use: Yes substance use type: marijuana Last Used Substance: Just Prior to Arrival Physical Exam Vital Signs Last Vital Signs Temp 36.3 C L 04/27/20 07:18 Pulse 62 04/27/20 07:18 Resp 18 04/27/20 07:18 BP 152/82 H 04/27/20 07:18 Pulse Ox 96 04/27/20 07:18 Testing Laboratory Results 04/27/20 07:07 04/27/20 07:07 PT 11.8 Seconds (9.0-12.0) 04/25/20 18:59 INR 1.1 (0.9-1.1) 04/25/20 18:59 APTT 26.3 Seconds (21.0-31.0) 04/26/20 07:24 Urine Color Red 04/24/20 20:30 Urine Appearance Cloudy (Clear) A 04/24/20 20:30 Urine pH 7.0 (4.5-7.5) 04/24/20 20:30 Ur Specific Bee 1.020 (1.000-1.030) 04/24/20 20:30 Urine Protein 3+ (Negative) H 04/24/20 20:30 Urine Glucose (UA) Negative (Negative) 04/24/20 20:30 Urine Ketones Negative (Negative) 04/24/20 20:30 Urine Nitrite Negative (Negative) 04/24/20 20:30 Ur Leukocyte Esterase Negative (Negative) 04/24/20 20:30 Urine RBC >30 /hpf (0-4) H 04/24/20 20:30 Urine WBC >30 /hpf (0-5) H 04/24/20 20:30 Ur Epithelial Cells 5-10 /lpf (0-5) H 04/24/20 20:30 Blood Type O Negative 04/24/20 22:33 Antibody Screen NEGATIVE 04/24/20 22:33 04/24/20 20:30 Urine Culture - Final Urine,Clean Catch No growth - less than 1,000 colonies/mL. Electrocardiogram Date: 04/26/20 Findings: + NSR @ (74) Normal sinus rhythm Voltage criteria for left ventricular hypertrophy Abnormal ECG When compared with ECG of 25-APR-2020 06:20, No significant change was found Confirmed by Julio Ricks ([id number]) on 04/26/2020 1:39:10 PM Echocardiogram Date: 04/25/20 EF: 60-65% LV Function: normal Other Testing 04/25/2020: CT angio chest PE protocol CT DOSE: 420.16 mGy.cm HISTORY: Dyspnea. Moderate carcinoma. PE TECHNIQUE: Multiaxial CT images of the chest were performed following the in travenous administration of contrast to evaluate the pulmonary arteries. Maximal intensity projection images were also obtained. A dose lowering technique was utilized adhering to the principles of ALARA. COMPARISON STUDY: None. FINDINGS: Moderate atherosclerotic change and ectasia of the thoracic aorta. No evidence for aneurysm or dissection. The pulmonary vasculature enhances appropriately. There are no major filling defects. Evaluation of lung parenchyma demonstrates partial consolidative infiltrate right lower lobe. This is associated with a small right effusion. Interstitial infiltrative change left lung base. Underlying emphysematous changes present throughout. This is considered mild to moderate. IMPRESSION: 1. No evidence for pulmonary embolus. 2. Right and to a lesser extent left basilar parenchymal infiltrates.. 3. Small bilateral pleural effusions. 4. Emphysematous change.
[2020-04-27] MEDS: FERROUS SULFATE 325 MG TAB PO SCH ×2 (12:04→19:21)
[2020-04-27] MEDS ORDERED: CEFAZOLIN 2,000 MG/15 ML IV PUSH IV ONE (15:25)
[2020-04-27] MEDS ORDERED: CEFAZOLIN 2000MG 2,000 MG/15 ML SYR IV ONE (15:40)
[2020-04-27] MEDS ORDERED: ONDANSETRON INJ 2 MG/ML 2 ML VIAL ONE (16:03)
[2020-04-27] MEDS ORDERED: LABETALOL HCL IV 5 MG/ML 20ML IV ONE (16:03)
--- NOTE | 2020-04-27 17:15 | Operative Report ---
PG Post Operative Report Pre & Post Diagnosis Operation Date: 04/27/20 09:10 Pre-Op Diagnosis: Hematuria, bladder tumor. Post-Op Diagnosis: Hematuria, bladder tumor. I identified the patient and participated in the time-out.: Yes Procedure Operation Date: 04/27/20 09:10 Actual Procedures p Cystoscopy with meatal dilation and Clot Evacuation and fulguration of prostatic varicosity with Transurethral Resection Bladder Tumor, large. - Bo Garcia, Surgeon Bo Garcia, II, DO Management Architect None Estimated Blood Loss 15 Findings Consistent with Post-Op Diagnosis Extremely large bleeding tumors of the dome, anterior, and right lateral side of the bladder. Approx 12 cm of tumor filling a majority of the volume of the bladder. Severe meatal narrowing dilated to allow scope placement. Bleeding veins of prostate likely from catheter trauma over weekend. Specimens 1. Large Bladder tumor right wall 2. Deep Resection 3. Anterior bladder tumor 4. Tumor of Dome Drains [address] catheter Anesthesia Type General Complications none Disposition Disposition: Recovery Room Indications Patient with bleeding and Acute blood loss anemia from large bladder tumors. Risks and benefits discussed at length. Description of Procedure Patient was consented and brought back to the operating room. Patient was placed under anesthesia in the supine position and moved to the dorsal lithotomy position. Patient was prepped and draped in the regular sterile fashion. A time out was completed. The patient was noted to have narrowing of the meatus and this was dilated to allow scope placement. A 30degree Cystoscope was placed into the bladder and the entire bladder was examined. A large amount of clot was evacuated. Extremely large tumors were noted to be slowly bleeding and filled a majority of the bladder volume. The UO's were identified as well as the bladder neck, trigone, dome, and the other important landmarks. The different tumors were identified and area size was assessed. The resection scope with the fine bipolar loop was selected. Bleeding varicosities of the prostate were fulgurated and may have been from traumatic mccauley which patient complained of over the weekend. The largest tumor on the right wall was targeted and the entire tumor was assessed. The tumor was resected. Deep resection specimens were sent separately. The bulk of the tumor was removed and sent for analysis. The resection bed and edges of the resection were fulgurated and the entire area inspected. All bleeding was controlled. The dome lesion was also large and appeared to be the source of the majority of the bleeding. This tumor was fully resected and sent for analysis. Finally with the large bulky tumors removed, a smaller tumor was discovered at the anterior wall. This was resected and sent separate. Each of the resection beds were fulgurated and all bleeding was controlled. The bladder was inspected a final time. The bladder was emptied. The scope was removed. A [address] hematuria catheter was placed. This was set to a very low irrigation flow and the fluid appeared clear. The patient was cleaned, aroused from anesthesia, and transferred to the pacu in stable condition having tolerated the procedure well with no complications. I was present and participated in all aspects of the procedure. The patient will be monitored in the PACU until transferred. Will monitor in the post op period and will monitor H&H to monitor. I attest to the content of the Intraoperative Record and any orders documented therein. Any exceptions are noted below.
--- NOTE | 2020-04-27 17:48 | Anesthesiology Progress Note ---
Date of Service April 27, 2020 Anesthesia Post Procedure Vital Signs Vital Signs: Temp Pulse Pulse Resp BP Pulse Ox 04/27/20 17:35 77 18 163/93 H 100 04/27/20 17:25 76 18 171/98 H 100 04/27/20 17:16 97.5 F L 79 18 165/96 H 99 04/27/20 14:52 98.4 F 75 18 155/99 H 97 04/27/20 12:18 97.9 F 65 18 145/78 H 95 04/27/20 07:18 97.3 F L 62 18 152/82 H 96 04/27/20 05:00 98.2 F 69 143/85 H 99 04/26/20 23:46 98.1 F 78 18 145/87 H 98 04/26/20 20:07 98.1 F 99 H 20 127/73 90 Transfer of Care Handoff Completed per policy Notes Mental Status: alert / awake / arousable and participated in evaluation Patient Amnestic to Procedure: Yes Nausea / Vomiting: adequately controlled Pain: adequately controlled Airway Patency, RR, SpO2: stable & adequate BP & HR: stable & adequate Hydration State: stable & adequate Anesthetic Complications: no major complications apparent and Pt Satisfied with anesthetic care
[2020-04-27 18:35] LABS: Hematocrit (blood only) 22.9 % (42-52); Hemoglobin 7.4 g/dL (14.0-18.0); Mean Corpuscular Hgb Conc 32.3 g/dL (32-36); Mean Corpuscular Volume 95.8 fL (80-100); Mean Platelet Volume 9.3 fL (7.4-10.4); Nucleated RBC # (auto) 0.04 K/uL (0-0); Nucleated RBC % (auto) 0.5 %; Platelet Count 151 K/uL (130-400); RDW Coefficient of Variation 20.8 % (11.5-14.5); RDW Standard Deviation 70.1 fL (36.4-46.3); Red Blood Count 2.39 M/uL (4.7-6.1); White Blood Count 7.49 K/uL (4.8-10.8)
[2020-04-27] MEDS: OXYBUTYNIN CHLORIDE 5 MG TAB PO PRN (20:26)
[2020-04-27] MEDS: ATORVASTATIN 40 MG TAB PO SCH (20:27)
[2020-04-27] MEDS ORDERED: LIDOCAINE 2% JELLY 5 ML TUBE EXT PRN (22:00)
--- NOTE | 2020-04-27 22:30 | Hospitalist Progress Note ---
Date of Service April 27, 2020 Assessment & Plan (1) Bladder tumor: Intermittent gross hematuria. Outpatient imaging and cystoscopy demonstrated bladder masses. TURBT scheduled at [facility] in the near future, but pt presented to ED here with symptomatic anemia, hematuria with clots, urinary retention. Urology consulted. Cysto demonstrated multiple bladder masses; TURBT performed. Path pending. Worrisome rib lesion as noted below. Further evaluation and management per Urology and Oncology. (2) Rib lesion: Recent outpatient CT demonstrated destructive lesion left posterior rib. 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 Eventual bone biopsy recommended. Further imaging per Oncology. (3) Hematuria: Gross hematuria secondary to bladder tumors. (4) Anemia: Hgb at time of admission 4.8 with associated exertional dyspnea and chest pressure. Anemia may be multifactorial, but probably due to acute and chronic blood loss due to hematuria. Check outpt studies. Received 4 units of pRBC's. Hgb today = 7.8. Follow H/H. (5) Pneumonia: Outpatient imaging demonstrated RLL infiltrate. Denies cough or SOB at rest. Complete course of doxycycline. (6) Coronary artery disease: History of [place], s/p PCI. No anginal symptoms at rest. Continue metoprolol and statin. Resume aspirin when OK from urologic perspective. (7) Abdominal aortic aneurysm: Recent outpatient imaging demonstrated AAA measuring 5 cm. Arrangements made for outpatient Vascular Surgery consultation. (8) Hypertension: Continue metoprolol and lisinopril. (9) COPD (chronic obstructive pulmonary disease): Pulmonary status stable. (10) Hypokalemia: K as low as 2.9. Hypomagnesemia could be contributing factor. Replace, follow. K today = 4.3. (11) Hypomagnesemia: Mg as low as 0.6. PPI could be contributing factor. Replace, follow. Mg today = 1.9. (12) Smoker: Smoking cessation counseling. (13) DVT prophylaxis: No anticoagulants because of gross hematuria. SCD's. Ambulate. (14) Discharge planning issues: Anticipated discharge to home. Family Medicine follow-up with Dr. Geiger. Outpatient follow-up with Urology. Outpatient follow-up with Oncology. Outpatient follow-up with Vascular Surgery. Admission and Anticipated Discharge Date Admission Date: April 25, 2020 Subjective Recheck for multiple problems. Patient seen in their room around 1999. TURBT performed this afternoon. Doing well postoperatively. No chest pain, cough, SOB, nausea, vomiting. Having some bladder / urethral discomfort. Review of Systems: Constitutional- no fever. Cardiac- no chest pain. Pulmonary- no cough or SOB. GI- no nausea, vomiting, diarrhea, melena, hematochezia. - as noted above. Otherwise, as noted above. Physical Exam Constitutional: no acute distress Respiratory: no respiratory distress Auscultation: lungs clear to auscultation bilaterally Cardiovascular: Rate/Rhythm: regular rate and regular rhythm Heart Sounds: no gallop, no murmur and no cardiac rub Vessels: no JVD Extremities: no calf tenderness and no edema Gastrointestinal (Abdomen): normal bowel sounds, soft, nontender, no hepatosplenomegaly Musculoskeletal: Extremities: no cyanosis Skin: no rashes, warm and dry Psychiatric: Orientation: alert Genitourinary: Wilson cath draining clear urine Results & Data Results & Data ([facility]) Vital Signs (Past 12 Hours) Vital Signs Temp Pulse Pulse Resp BP Pulse Ox 04/27/20 19:38 36.5 C 65 20 151/85 H 96 04/27/20 18:10 36.3 C L 65 16 153/83 H 100 04/27/20 17:45 36.6 C 71 18 162/96 H 98 04/27/20 17:35 77 18 163/93 H 100 04/27/20 17:25 76 18 171/98 H 100 04/27/20 17:16 36.4 C L 79 18 165/96 H 99 04/27/20 14:52 36.9 C 75 18 155/99 H 97 04/27/20 12:18 36.6 C 65 18 145/78 H 95 Laboratory Results Laboratory Results - last 24 hr 04/27/20 04/27/20 04/27/20 07:07 07:07 18:26 WBC 8.90 7.49 RBC 2.41 L 2.39 L Hgb 7.8 L 7.4 L Hct 23.4 L 22.9 L MCV 97.1 95.8 MCH 32.4 31.0 MCHC 33.3 32.3 RDW Std Deviation 70.0 H 70.1 H RDW Coeff of Andrew 20.8 H 20.8 H Plt Count 160 151 MPV 10.0 9.3 Absolute Nucleated RBC 0.08 H 0.04 H Nucleated RBC % (auto) 0.9 0.5 Sodium 136 Potassium 4.3 Chloride 106 Carbon Dioxide 26 Anion Gap 5.0 BUN 15 Creatinine 1.07 Est Cr Clr Drug Dosing 63.8 Est GFR ( Amer) 82.2 Est GFR (Non-Af Amer) 71.0 BUN/Creatinine Ratio 14.1 Glucose 89 Calcium 8.1 L Magnesium 1.9 COVID-19 PCR 04/27/20 Unknown WBC RBC Hgb Hct MCV MCH MCHC RDW Std Deviation RDW Coeff of Andrew Plt Count MPV Absolute Nucleated RBC Nucleated RBC % (auto) Sodium Potassium Chloride Carbon Dioxide Anion Gap BUN Creatinine Est Cr Clr Drug Dosing Est GFR ( Amer) Est GFR (Non-Af Amer) BUN/Creatinine Ratio Glucose Calcium Magnesium COVID-19 PCR NEGATIVE (1) Hematuria Hematuria type: unspecified type Qualified Code(s): R31.9 - Hematuria, unspecified (2) COPD (chronic obstructive pulmonary disease) COPD type: unspecified COPD Qualified Code(s): J44.9 - Chronic obstructive pulmonary disease, unspecified
[2020-04-27] MEDS ORDERED: MoRPHine SULFATE 2 MG/ML CARP IV PRN (22:48)
[2020-04-28] MEDS: TRAMADOL HCL 50 MG TABLET PO PRN (02:01)
[2020-04-28] MEDS ORDERED: TRAMADOL HCL 50 MG TABLET PO PRN (04:01)
[2020-04-28] MEDS: PANTOprazole 40 MG TAB PO SCH (06:23)
[2020-04-28 06:29] LABS: Hematocrit (blood only) 21.6 % (42-52); Hemoglobin 6.9 g/dL (14.0-18.0); Mean Corpuscular Hemoglobin 31.1 pg (25-34); Mean Corpuscular Hgb Conc 31.9 g/dL (32-36); Mean Corpuscular Volume 97.3 fL (80-100); Nucleated RBC # (auto) 0.08 K/uL (0-0); Nucleated RBC % (auto) 0.7 %; Platelet Count 162 K/uL (130-400); RDW Coefficient of Variation 20.5 % (11.5-14.5); RDW Standard Deviation 69.8 fL (36.4-46.3); Red Blood Count 2.22 M/uL (4.7-6.1); White Blood Count 11.06 K/uL (4.8-10.8)
[2020-04-28] MEDS ORDERED: SODIUM CHLORIDE 0.9% 250 ML IV PRN (06:30)
[2020-04-28 07:00] LABS: Calcium 7.4 mg/dl (8.5-10.1); Creatinine Clr Calc Pharmacy 58.4 ml/min; Est GFR (African American) 73.8; Est GFR (Non-African American) 63.7; Magnesium 1.5 mg/dl (1.8-2.4); Potassium 4.1 mmol/L (3.5-5.1)
[2020-04-28 07:04] LABS: Ferritin 808.3 ng/ml (8-388)
[2020-04-28 08:47] LABS: Folate (Folic Acid) 5.08 ng/ml (>5.38)
[2020-04-28] MEDS: DOXYCYCLINE HYCLATE 100 MG CAP PO SCH ×2 (08:49→20:49)
[2020-04-28] MEDS: lisinopriL 20 MG TAB PO SCH (08:49)
[2020-04-28] MEDS: OXYBUTYNIN CHLORIDE 5 MG TAB PO PRN (08:49)
[2020-04-28] MEDS: METOPROLOL TARTRATE 25 MG TAB PO SCH ×2 (08:49→20:49)
[2020-04-28] MEDS: NICOTINE 21 MG/24 HR TDSY TD SCH (09:03)
--- NOTE | 2020-04-28 11:03 | Urology Progress Note ---
Date of Service April 28, 2020 Assessment & Plan (1) Primary bladder malignant neoplasm: High-grade TCCstatus post TURBT yesterday Postoperative pictures appear to show complete resection of all tumor His urine has cleared appropriately He is being transfused currently I think it is reasonable to remove his catheter today and attempt a voiding trialhe is extremely fixated on this I have discussed his pathology He also has a lesion of concern on the 10th rib This will need to be evaluated as an outpatient to rule out metastatic disease He likely will require a second procedure as an outpatient to confirm complete resection of the tumor He was initially scheduled for TURBT in [place] on 05/13/2020may be reasonable to keep this appointment and have deep biopsies performed at that time He will discuss with his but he believes he prefers to follow-up in [place] Subjective Status post cystoscopy and TURBT as well as clot evacuation yesterday He has had slow CBI running overnight His urine is clear He has extreme discomfort at the meatus from his catheter but no other subjective complaints Receiving a transfusion now Review of Systems Review of Systems: All systems reviewed & are unremarkable except as noted in HPI & below Physical Exam Physical Exam: Urine clear, no blood, no clots, CBI extremely slow Constitutional: well developed and well nourished Respiratory: no respiratory distress Cardiovascular: Extremities: no pedal edema Gastrointestinal (Abdomen): Inspection/Auscultation: abdomen normal to inspection Results & Data Vital Signs (Past 12 Hours) Vital Signs Temp Pulse Pulse Resp BP BP Pulse Ox 04/28/20 09:44 36.8 C 67 16 121/76 96 04/28/20 09:14 36.7 C 72 16 125/77 94 04/28/20 08:59 36.8 C 77 16 129/77 96 04/28/20 08:43 36.7 C 75 16 135/81 97 04/28/20 07:07 36.7 C 69 19 129/77 97 04/28/20 03:47 36.6 C 77 18 131/82 96 04/27/20 23:23 36.7 C 71 18 144/67 H 95 PG Care Time/CCT Total # of Minutes Spent Total Time Spent with Patient: Total time spent is greater than 50% in coordination of care (as documented) at patient's floor/unit and/or counseling patient: Coding Level of Care Code 32871 Subseq Hosp Care Lvl 2 Diagnoses Primary bladder malignant neoplasm C67.9
[2020-04-28] MEDS: FERROUS SULFATE 325 MG TAB PO SCH ×2 (11:54→17:05)
[2020-04-28] MEDS: ATORVASTATIN 40 MG TAB PO SCH (20:48)
--- NOTE | 2020-04-28 23:11 | Hospitalist Progress Note ---
Date of Service April 28, 2020 Assessment & Plan (1) Bladder tumor: Intermittent gross hematuria. Outpatient imaging and cystoscopy demonstrated bladder masses. TURBT scheduled at [facility] in the near future, but pt presented to ED here with symptomatic anemia, hematuria with clots, urinary retention. Urology consulted. Cysto demonstrated multiple bladder masses; TURBT performed. 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 Worrisome rib lesion as noted below. Further evaluation and management per Urology and Oncology. (2) Rib lesion: Recent outpatient CT demonstrated destructive lesion left posterior rib. 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 Eventual bone biopsy recommended. Further imaging per Oncology. (3) Hematuria: Gross hematuria secondary to bladder tumors. (4) Anemia: Hgb at time of admission 4.8 with associated exertional dyspnea and chest pressure. Anemia may be multifactorial, but probably due to acute and chronic blood loss due to hematuria. Check outpt studies. Received 4 units of pRBC's. Hgb today = 6.9. 2 more units pRBC's ordered. Follow H/H. (5) Pneumonia: Outpatient imaging demonstrated RLL infiltrate. Denies cough or SOB at rest. Complete course of doxycycline. (6) Coronary artery disease: History of [place], s/p PCI. No anginal symptoms at rest. Continue metoprolol and statin. Resume aspirin when OK from urologic perspective. (7) Abdominal aortic aneurysm: Recent outpatient imaging demonstrated AAA measuring 5 cm. Arrangements made for outpatient Vascular Surgery consultation. (8) Hypertension: Continue metoprolol and lisinopril. (9) COPD (chronic obstructive pulmonary disease): Pulmonary status stable. (10) Hypokalemia: K as low as 2.9. Hypomagnesemia could be contributing factor. Replace, follow. K today = 4.1. (11) Hypomagnesemia: Mg as low as 0.6. PPI could be contributing factor. Replace, follow. Mg today = 1.5. (12) Smoker: Smoking cessation counseling. (13) DVT prophylaxis: No anticoagulants because of gross hematuria. SCD's. Ambulate. (14) Discharge planning issues: Anticipated discharge to home. Family Medicine follow-up with Dr. Geiger. Outpatient follow-up with Urology. Outpatient follow-up with Oncology. Outpatient follow-up with Vascular Surgery. Admission and Anticipated Discharge Date Admission Date: April 25, 2020 Subjective Recheck for multiple problems. Patient seen in their room around 1100. Doing well postoperatively. Wilson drainage clear; Wilson to be removed this morning. No chest pain, cough, SOB, nausea, vomiting. Review of Systems: Constitutional- no fever. Cardiac- no chest pain. Pulmonary- no cough or SOB. GI- no nausea, vomiting, diarrhea, melena, hematochezia. - as noted above. Otherwise, as noted above. Physical Exam Constitutional: no acute distress Respiratory: no respiratory distress Auscultation: lungs clear to auscultation bilaterally Cardiovascular: Rate/Rhythm: regular rate and regular rhythm Heart Sounds: no gallop, no murmur and no cardiac rub Vessels: no JVD Extremities: no calf tenderness and no edema Gastrointestinal (Abdomen): normal bowel sounds, soft, nontender, no hepatosplenomegaly Musculoskeletal: Extremities: no cyanosis Skin: no rashes, warm and dry Psychiatric: Orientation: alert Results & Data Results & Data ([facility]) Vital Signs (Past 12 Hours) Vital Signs Temp Pulse Pulse Resp BP BP Pulse Ox 04/28/20 22:59 36.9 C 76 20 150/81 H 98 04/28/20 19:15 36.6 C 70 18 138/84 97 04/28/20 16:00 74 04/28/20 15:41 37.0 C 72 18 129/76 98 04/28/20 15:20 36.7 C 66 18 135/82 99 04/28/20 14:20 36.8 C 72 18 127/80 97 04/28/20 13:50 36.8 C 65 16 122/74 96 04/28/20 13:35 36.7 C 65 18 114/72 96 04/28/20 13:19 36.8 C 66 16 118/71 96 04/28/20 11:30 36.8 C 66 16 130/75 96 Laboratory Results 04/28/20 06:06 04/28/20 06:06 (1) Hematuria Hematuria type: unspecified type Qualified Code(s): R31.9 - Hematuria, unspecified (2) COPD (chronic obstructive pulmonary disease) COPD type: unspecified COPD Qualified Code(s): J44.9 - Chronic obstructive pulmonary disease, unspecified
[2020-04-29] MEDS: PANTOprazole 40 MG TAB PO SCH (05:36)
[2020-04-29 06:46] LABS: Hematocrit (blood only) 26.5 % (42-52); Hemoglobin 8.9 g/dL (14.0-18.0); Mean Corpuscular Hemoglobin 31.9 pg (25-34); Mean Corpuscular Hgb Conc 33.6 g/dL (32-36); Mean Platelet Volume 9.5 fL (7.4-10.4); Platelet Count 146 K/uL (130-400); RDW Standard Deviation 65.9 fL (36.4-46.3); Red Blood Count 2.79 M/uL (4.7-6.1); White Blood Count 8.69 K/uL (4.8-10.8)
[2020-04-29 07:04] LABS: BUN Creatinine Ratio 15.5 (10-20); Calcium 7.6 mg/dl (8.5-10.1); Creatinine Clr Calc Pharmacy 55.2 ml/min; Est GFR (African American) 68.8; Est GFR (Non-African American) 59.4; Potassium 4.3 mmol/L (3.5-5.1)
--- NOTE | 2020-04-29 08:28 | Urology Progress Note ---
Date of Service April 29, 2020 Subjective Postop day #2 from TURBT Patient is afebrile vital signs are stable Says he feels well. Says he is voiding without difficulty. Urine is clear yellow in the urinal Tolerating regular diet Physical exam abdomen is soft nontender There is no calf swelling or tenderness Hematocrit is 26.5 Creatinine 1.24 Assessment post TURBT Path showed a TA grade 3 TCC Patient is doing well post surgery and is stable from a perspective. Results & Data Vital Signs (Past 12 Hours) Vital Signs Temp Pulse Pulse Resp BP BP Pulse Ox 04/29/20 07:54 36.5 C 73 18 146/74 H 99 04/29/20 03:21 36.5 C 78 19 176/98 H 96 04/29/20 00:14 67 04/28/20 22:59 36.9 C 76 20 150/81 H 98 PG Care Time/CCT Total # of Minutes Spent Total Time Spent with Patient: Total time spent is greater than 50% in coordination of care (as documented) at patient's floor/unit and/or counseling patient: Coding Level of Care Code 15021 Subseq Hosp Care Lvl 1
[2020-04-29] MEDS: FERROUS SULFATE 325 MG TAB PO SCH (08:47)
[2020-04-29] MEDS: METOPROLOL TARTRATE 25 MG TAB PO SCH (08:47)
[2020-04-29] MEDS: lisinopriL 20 MG TAB PO SCH (08:47)
[2020-04-29] MEDS: DOXYCYCLINE HYCLATE 100 MG CAP PO SCH (08:47)
[2020-04-29] MEDS: NICOTINE 21 MG/24 HR TDSY TD SCH (08:48)
--- NOTE | 2020-04-29 11:37 | Hospitalist Progress Note ---
Date of Service April 29, 2020 Assessment & Plan (1) Bladder tumor: Intermittent gross hematuria. Outpatient imaging and cystoscopy demonstrated bladder masses. TURBT scheduled at [facility] in the near future, but pt presented to ED here with symptomatic anemia, hematuria with clots, urinary retention. Urology consulted. Cysto demonstrated multiple bladder masses; TURBT performed. 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 Worrisome rib lesion as noted below. Further evaluation and management per Urology +/- Oncology. (2) Rib lesion: Recent outpatient CT demonstrated destructive lesion left posterior rib. 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 Bone biopsy recommended. Procedure is not done here, so it will need to be done at tertiary care facility. Will ask PCP to arrange at [facility]. (3) Hematuria: Gross hematuria secondary to bladder tumors. (4) Anemia: Hgb at time of admission 4.8 with associated exertional dyspnea and chest pressure. Anemia may be multifactorial, but probably due to acute and chronic blood loss due to hematuria. Received 6 units of pRBC's. Hgb today = 8.9. Follow H/H as outpatient. Transfuse as necessary to maintain adequate H/H. (5) Pneumonia: Outpatient imaging demonstrated RLL infiltrate. Denies cough or SOB at rest. Completed course of doxycycline. Smoker. Follow-up CT in 1 month recommended. Consider referral to Pulmonary Medicine if radiographic abnormalities persist. (6) Coronary artery disease: History of [place], s/p PCI. No anginal symptoms at rest. Gross hematuria resolved. Should be OK to resume aspirin. Continue metoprolol and statin. (7) Abdominal aortic aneurysm: Recent outpatient imaging demonstrated AAA measuring 5 cm. Arrangements made for outpatient Vascular Surgery consultation at [facility]. (8) Hypertension: BP fluctuated throughout hospital stay. BP elevations probably due to anxiety. Continue metoprolol and lisinopril. Follow and titrate therapy. (9) COPD (chronic obstructive pulmonary disease): Pulmonary status stable. (10) Hypokalemia: K as low as 2.9. Hypomagnesemia could be contributing factor. Replaced. K today = 4.3. Discharge on KCl 10 mEq BID. Check repeat K in clinic. (11) Hypomagnesemia: Mg as low as 0.6. PPI could be contributing factor. Replaced. Mg 8/4 = 1.5. Discharge on Mg oxide 400 mg BID. Recheck Mg in clinic. Consider stopping PPI. (12) GERD (gastroesophageal reflux disease): History of GERD, treated with pantoprazole for years. Severe hypomagnesemia could be secondary to PPI. In turn, hypomagnesemia could be contributing to hypokalemia via renal losses. Consider stopping PPI. If significant GERD symptoms recur, could try H2 rené instead of PPI. (13) Smoker: Smoking cessation counseling. (14) DVT prophylaxis: No anticoagulants because of gross hematuria. SCD's. Ambulating. (15) Discharge planning issues: Discharge to home. Family Medicine follow-up with Dr. Geiger. Outpatient follow-up with Urology. Outpatient follow-up with Vascular Surgery. Admission and Anticipated Discharge Date Admission Date: April 25, 2020 Subjective Recheck for multiple problems. Patient seen in their room around 1010. Doing well. No gross hematuria. Ambulating without chest pain or SOB. Anxious to go home. Physical Exam Constitutional: no acute distress Respiratory: no respiratory distress Auscultation: lungs clear to auscultation bilaterally Cardiovascular: Rate/Rhythm: regular rate and regular rhythm Heart Sounds: no gallop, no murmur and no cardiac rub Vessels: no JVD Extremities: no calf tenderness and no edema Gastrointestinal (Abdomen): normal bowel sounds, soft, nontender, no hepatosplenomegaly Musculoskeletal: Extremities: no cyanosis Skin: no rashes, warm and dry Psychiatric: Orientation: alert Results & Data Results & Data ([facility]) Vital Signs (Past 12 Hours) Vital Signs Temp Pulse Pulse Resp BP BP Pulse Ox 04/29/20 11:29 36.5 C 73 18 176/98 H 146/74 H 99 04/29/20 10:07 67 04/29/20 07:54 36.5 C 73 18 146/74 H 99 04/29/20 03:21 36.5 C 78 19 176/98 H 96 04/29/20 00:14 67 Laboratory Results 04/29/20 06:28 04/29/20 06:28 (1) Hematuria Hematuria type: unspecified type Qualified Code(s): R31.9 - Hematuria, unspecified (2) COPD (chronic obstructive pulmonary disease) COPD type: unspecified COPD Qualified Code(s): J44.9 - Chronic obstructive pulmonary disease, unspecified
--- NOTE | 2020-04-30 07:37 | Discharge Summary ---
Date of Service Date of Admission: 04/25/20 Date of Discharge: 04/29/20 Admission HPI Per Admitting Provider History obtained from patient, family, and records. Medical history significant for CAD status post stent, PVD, hypertension, hyperlipidemia, valvular heart disease (moderate MR/mild TR/AR on TTE 2016), COPD, chronic anemia (baseline hemoglobin of 8), recent diagnosis of bladder mass probable metastatic malignancy, past tobacco abuse. Last confinement September 2019 for sepsis secondary to pneumonia. Patient noted intermittent gross hematuria symptoms since June 2019 with occasional left-sided back pain. Patient unable to go for outpatient renal ultrasound ordered by PCP in September 2019 as per notes. 2 months ago, gross hematuria noted to be more consistent with clot passage. No fever, no chills, no unusual abdominal discomfort. Unquantified weight loss. Patient seen by [facility] last week for hematuria. Outpatient CT urography showed large bladder mass with pathologic destructive lesion of the left 10th posterior rib. 5 cm infrarenal AAA noted. Right lower lobe pneumonia. Indeterminate enhancement of the rectum. Patient with junky cough symptoms without aspiration, fever, chills. Doxycycline Rx initiated outpatient for pneumonia on x-ray. Outpatient cystoscopy 2 days ago at [facility] disclosed an enhancing bladder mass measuring 5.8 x 4 cm abutting the right bladder wall. 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 TURBT recommended by [facility] urologist. Complex surgery will be done better by urology cancer specialist at [facility] as per note. Patient evaluated by [facility] urologist yesterday. TURBT tentative schedule on May 13, 2020. Left 10th rib lesion concerning for metastatic disease to be biopsied after diagnosis confirmed on TURBT as per note. Preop medicine eval recommended. Outpatient vascular surgery referral for AAA recommended. Outpatient hemoglobin noted to be 5.4. Usual episodic substernal chest pain nonradiating with shortness of breath usually related to exertion for a few years now as per patient. Dark stools attributed to iron as per patient. Usual gross hematuria symptoms as per patient. Patient denies headache symptoms. Patient directed to ER by [facility] urologist on-call. 1 unit packed RBC transfused at the ER. Medical History as above Surgical History : Cholecystectomy Family History : Hypertension Personal/Social history : Past tobacco/alcohol abuse, retired from contractor work Principal Diagnosis severe anemia due to acute and chronic blood loss from hematuria bladder tumors- high grade papillary urothelial carcinoma Discharge Data Allergies Allergy/AdvReac Type Severity Reaction Status Date / Time shellfish derived Allergy Intermediate HIVES Verified 04/24/20 22:47 Consultations 04/24/20 23:28 ED Decision to Admit Stat 04/25/20 02:23 Consult Urology Routine Procedures Performed Operation Date: 04/27/20 09:10 Actual Procedures p Transurethral Resection Bladder Tumor, large. - Bo Garcia DO s Cystoscopy with meatal dilation and Clot Evacuation and fulguration of prostatic varicosity - Bo Garcia DO Ordered Studies 04/25/20 01:29 CT angio chest PE protocol Urgent Hospital Course (1) Bladder tumor: Intermittent gross hematuria. Outpatient imaging and cystoscopy demonstrated bladder masses. TURBT was scheduled at [facility] in the near future, but pt presented to ED here with symptomatic anemia, hematuria with clots, urinary retention. Urology consulted. Cysto demonstrated multiple bladder masses; TURBT performed. Path = high grade papillary urothelial carcinoma (without apparent invasion). Worrisome rib lesion as noted below. Further evaluation and management per Urology +/- Oncology. Patient would like to continue to see [facility]. (2) Hematuria: Gross hematuria secondary to bladder tumors. (3) Anemia: Hgb at time of admission 4.8 with associated exertional dyspnea and chest pressure. Anemia may be multifactorial, but probably due to acute and chronic blood loss due to hematuria. Received 6 units of pRBC's. Hgb day of discharge 8.9. Follow H/H as outpatient. Transfuse as necessary to maintain adequate H/H. (4) Rib lesion: Recent outpatient CT demonstrated destructive lesion left posterior rib. 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 Bone biopsy recommended. Procedure not available at [facility], so it will need to be done at tertiary care facility. Will ask PCP to arrange at [facility]. (5) Pneumonia: Outpatient imaging demonstrated RLL infiltrate. Denies cough or SOB at rest. Completed course of doxycycline. Smoker. Follow-up CT in 1 month recommended. Consider referral to Pulmonary Medicine if radiographic abnormalities persist. (6) Coronary artery disease: History of AK, s/p PCI. Experienced exertional chest pain and SOB associated with severe anemia; symptoms resolved with transfusion. Gross hematuria resolved. Should be OK to resume aspirin. Continue metoprolol and statin. (7) Abdominal aortic aneurysm: Recent outpatient imaging demonstrated AAA measuring 5 cm. Arrangements made for outpatient Vascular Surgery consultation at [facility]. (8) Hypertension: BP's fluctuated throughout hospital stay. BP elevations probably due to anxiety. BP's as low as 118/71, so best not to increase antihypertensive therapy at this time. Continue metoprolol and lisinopril. Follow and titrate therapy. (9) COPD (chronic obstructive pulmonary disease): Pulmonary status stable. (10) Hypokalemia: K as low as 2.9. Hypomagnesemia could be contributing factor. Replaced. K today = 4.3. Discharge on KCl 10 mEq BID. Check repeat K in clinic. (11) Hypomagnesemia: Mg as low as 0.6. PPI could be contributing factor. Replaced. Mg 8/4 = 1.5. Discharge on Mg oxide 400 mg BID. Recheck Mg in clinic. Consider stopping PPI. (12) GERD (gastroesophageal reflux disease): History of GERD, treated with pantoprazole for years. Severe hypomagnesemia could be secondary to PPI. In turn, hypomagnesemia could be contributing to hypokalemia via renal losses. Consider stopping PPI. If significant GERD symptoms recur, could try H2 rené instead of PPI. (13) Smoker: Smoking cessation counseling. (14) DVT prophylaxis: No anticoagulants because of gross hematuria. SCD's. Ambulating. (15) Discharge planning issues: Discharged to home. Family Medicine follow-up with Dr. Geiger. Outpatient follow-up with [facility]. Outpatient follow-up with Vascular Surgery. Total Time Total Time Spent Total Time Spent (In Minutes): 45 Discharge Plan Discharge Items Patient Disposition: Home - Self-Care Reason For Visit: blood in urine, anemia Discharge Diagnosis: anemia bladder cancer Activity: As commented below Activity Comment: gradually increase activity as tolerated Non-emergency contact: Primary Care Provider, Hospitalist and Urologist Call non-emergency contact if: you have any medication questions, your symptoms worsen and your temperature is above 101 Follow-up/Referrals: Bo Garcia DO [Physician] - (Office should contact you with appointment.) Savanah Geiger DO [Primary Care Provider] - 05/04/20 11:00 am (Date & Time 05/04/2020 11:00 AM Provider Ashley York, DO Department [facility] ) Diet: Heart Healthy Addtl Attending Provider Instructions: MEDICATION CHANGES: Stop doxycycline. Start potassium chloride 10 mEq twice a day. Start magnesium oxide 400 mg twice a day. SUMMARY OF TEST RESULTS: Cystoscopy showed bladder cancer. COVID-19 test was negative. Hemoglobin level was 4.8 on 04/24/20. You received 6 units of blood. Hemoglobin level was 8.9 on 04/29/20. RECOMMENDATIONS FOR FOLLOW-UP: Urology follow-up with Dr. Garcia ([facility]). His office should call you with appointment. Please ask Dr. Geiger for referral if necessary. The aorta in your abdomen is enlarged (abdominal aortic aneurysm). Please keep appointment with Vascular Surgery: 05/11/2020 12:30 PM Robin Burleson MD [facility] Vascular Surgery [place] scan on 04/17/20 showed a spot in a rib. The only way to find out what this is is to do a biopsy which probably needs to be done in [place]. Please ask Dr. Geiger to make referral. CT scan done showed what looked like pneumonia in right lung. Suggest repeating CT scan of chest in about 4 weeks to make certain that it is getting better. Please ask Dr. Geiger to schedule. Please ask Dr. Geiger to recheck your hemoglobin level in clinic. Potassium and magnesium levels were low. Please ask Dr. Geiger to recheck levels in clinic. Ask her if you should continue taking potassium and magnesium pills. Pantoprazole (Protonix) can cause low magnesium levels. Consider stopping it if you do not need it. There are alternatives for controlling stomach acid if necessary. Please discuss with Dr. Geiger. OTHER INSTRUCTIONS: Please do not smoke. It is bad for your blood vessels, bad for your lungs, and bad for your bladder. Seek medical attention if you have: * temperature above 101 * chest pain or trouble breathing * abdominal pain, nausea, vomiting * diarrhea, dark stools or bloody stools * difficulty urinating; blood in urine * any unanswered questions or concerns Call 911 if symptoms are severe. Please take good care of yourself. Call if you have any questions or problems. You can reach a [facility] hospitalist on duty at [facility] 24 hours a day by calling [phone]. My cell # is [phone]. Pending Studies at Discharge: No Stand-Alone Forms: My [facility], Smoking Cessation Medications and DC Order Prescriptions: New potassium chloride 10 mEq tablet extended release 10 meq PO BID Qty: 60 RF: 0 magnesium oxide 400 mg magnesium capsule 400 mg PO BID Qty: 60 RF: 0 Continued atorvastatin 80 mg tablet 80 mg PO QPM RF: 0 lisinopril 20 mg tablet 20 mg PO DAILY RF: 0 aspirin 81 mg tablet,delayed release (DR/EC) 81 mg PO DAILY RF: 0 pantoprazole 40 mg tablet,delayed release (DR/EC) 40 mg PO DAILYBB RF: 0 nitroglycerin 0.4 mg tablet, sublingual 0.4 mg sublingual DAILY PRN (Reason: Chest Pain) RF: 0 metoprolol tartrate 25 mg tablet 25 mg PO BID RF: 0 ferrous sulfate 325 mg (65 mg iron) Tablet 325 mg PO BID RF: 0 Probiotic 10 billion cell Capsule 0 cell PO DAILY RF: 0 Discontinued doxycycline hyclate 100 mg Tablet 100 mg PO BID RF: 0 Discharge Orders: Discharge Order (Routine); Ordered 04/29/20 Ordered By: Alexi Maya Admission Data Admit Date/Time: 04/25/20 01:29 Attending Provider: Alexi Maya Admit Provider: Alejandro Rosario Primary Care Provider: Savanah Geiger Other Providers: Winnie Patel ; Alejandro Rosario ; Nirav Bates Other Interventions: Discharge Summary Assessment (RN) Last Done: 04/29/20 11:29 DC Date/Time DO NOT enter until pt leaves facility: 04/29/20 14:20
== END 2020-04-29 14:20 | disposition home or self-care (01) | DRG 662 ==
LOC: ED 21:37 → 2S 04-25 01:29 → SUATTDRO 04-25 01:29 → 2S 04-25 01:58

== ENCOUNTER 2020-08-05 13:49 | Inpatient (IN) ==
[2020-08-05] MEDS ORDERED: SODIUM CHLORIDE 0.9% 1000ML 1,000 ML IV ONE (15:36)
--- NOTE | 2020-08-05 15:46 | Emergency Department Note ---
Impression & Plan COPD (chronic obstructive pulmonary disease), Bilateral pneumonia, Multiple myeloma, Elevated BUN ED Provider Note NAME: JESSICA BILLY AGE: 70 SEX: M : 1950 ARRIVES VIA: Walk-In INFORMANT: Patient ED PROVIDER(S): Colten Rae DO CHIEF COMPLAINT: Abdominal discomfort HPI: Patient is a 70-year-old male who presents the ER for abdominal discomfort. He notes he was referred in by his PCP. He had a chest x-ray obtained last week and was placed on antibiotics for pneumonia. He has been taking doxycycline. He denies any new cough or runny nose. No loss of taste or smell. No exposure to anyone with Covid. Denies any chest pain or shortness of breath . He notes that yesterday they were driving down and his was driving. He became a little dizzy and became motion sick. This morning he was a little nauseated in his belly. He does not really want to eat. He denies any belly pain. No dysuria urgency or frequency. No other exacerbating or remitting factors. He notes he has been feeling weak and rundown recently. ROS: See above HPI for pertinent positives & negatives. A total of 10 systems reviewed and were otherwise negative. PAST MEDICAL HISTORY:See Below PAST SURGICAL HISTORY:See Below FAMILY HISTORY:See Below SOCIAL HISTORY:See Below HOME MEDICATIONS:See Below ALLERGIES:See Below VITALS:See Below PHYSICAL EXAMINATION: GENERAL: Sitting up in bed, alert, chronically ill-appearing, disheveled, nontoxic EYE EXAM: normal conjunctiva. PERRL and EOM's grossly intact. OROPHARYNX: no exudate, no erythema, lips, buccal mucosa, and tongue normal and mucous membranes are moist NECK: supple, no nuchal rigidity, no adenopathy, non-tender LUNGS: Mild wheezing bilaterally. Normal chest wall mechanics HEART: no murmurs, S1 normal and S2 normal ABDOMEN: abdomen soft, non-tender, normo-active bowel sounds, no masses, no rebound or guarding. UPPER EXTREMITIES: upper extremities are grossly normal. LOWER EXTREMITIES: No pitting edema. Calves are equal bilateral NEURO EXAM: Normal sensorium, cranial nerves II-XII grossly intact, normal speech, no gross weakness of arms, no gross weakness of legs. MEDICAL DECISION MAKING: Patient is a 70-year-old male previous smoker the presents the ER for weakness referred in by PCP. He has been treated for bilateral pneumonia on doxycycline for the past week. He is not sure why he was referred in but notes that he feels weak. IV was established blood work was obtained. Labs show no significant leukocytosis. Mild anemia at 7.1 fairly consistent with previous. Platelets of 216. BMP with mild hypokalemia.. Creatinine at 1.5. LFTs bilirubin and troponin were unremarkable. BUN was elevated. Lipase was normal. UA was contaminated with multiple epithelial cells. Curb 65 is 2 points. Was given IV fluids and IV antibiotics. He was updated bedside. With his history of multiple myeloma extensive bilateral infiltrates on CT discussed with the hos chinmayt for observation after discussion with the patient. Covid was ordered and pending upon admission. Triage Nursing notes reviewed. Prior medical records reviewed Vital Signs: reviewed and remarkable for HTN Differential diagnosis: Differential diagnoses includes but is not limited to pneumonia, bronchitis, COPD/Asthma exacerbation, pneumothorax, pulmonary embolism, congestive heart failure, acute coronary syndrome ER treatment provided: See below Diagnostics interpreted by me: ECG: none Cardiac Monitoring: An order was placed for continuous cardiac monitoring. The monitor shows a rate of 81 with sinus rhythm. Laboratory studies: As stated above and show below. Imaging studies: CT abdomen pelvis shows bilateral infiltrates Portable AP upright 1 view of the chest shows infiltrates in bilateral lungs Consultation(s): D/w Dr. Mir for further evaluation ED COURSE: Procedures: none Critical Care: None Past Med/Surg History Medical History (Updated 08/05/20 @ 19:45 by Colten Rae DO) Abdominal aortic aneurysm 5cm per 03/2020 CT- under surveillance by vascular Anemia Bladder cancer COPD (chronic obstructive pulmonary disease) Coronary artery disease BMS (2014) GERD (gastroesophageal reflux disease) History of [place] (myocardial infarction) 2014 History of pancreatitis Hypertension Rib lesion Surgical History History of cholecystectomy Family History Other Family history non-contributory Social History Smoking Status: Current every day smoker Tobacco Type: Cigarettes Second Hand Exposure: No; Hx Alcohol Use: No Hx Substance Use: Yes Last Used Substance: Just Prior to Arrival Preferred Language: Czech Communication Ability: Effective Live In Housekeeper Required: No Beliefs That Will Affect Care: None Current Living Situation: Spouse Feels Safe at Home: Yes Assistive Devices: None Allergies Allergies Allergy/AdvReac Type Severity Reaction Status Date / Time shellfish derived Allergy Intermediate HIVES Verified 06/23/20 21:00 Home Meds Home Medications Medication Instructions Recorded Confirmed aspirin 81 mg PO QAM 09/29/19 08/05/20 atorvastatin 80 mg PO QPM 09/29/19 08/05/20 lisinopril 20 mg PO DAILY 09/29/19 08/05/20 metoprolol tartrate 25 mg PO BID 09/29/19 08/05/20 nitroglycerin 0.4 mg SUBLINGUAL DIRECTED PRN 09/29/19 08/05/20 pantoprazole 40 mg PO DAILY 09/29/19 08/05/20 ferrous sulfate 325 mg PO BID 04/24/20 08/05/20 doxycycline hyclate 100 mg PO BID 08/05/20 08/05/20 hydrocodone-acetaminophen 1 tab PO Q6H PRN 08/05/20 08/05/20 lenalidomide [Revlimid] 10 mg PO DIRECTED 08/05/20 08/05/20 Results & Data (ED) Vital Signs Vital Signs - 24 hr 08/05/20 14:12 08/05/20 16:09 08/05/20 16:23 Temperature 37.1 C Temperature Source Oral Pulse Rate 78 73 76 Pulse Rate from SpO2 Sensor 73 74 Respiratory Rate 20 21 Respiratory Effort / Characteristics Non-Labored Spontaneous Respiratory Depth Normal Respiratory Pattern Regular Blood Pressure 128/82 177/97 H Blood Pressure Mean 97 121 Blood Pressure Position Sitting Pulse Oximetry 96 97 97 Oxygen Delivery Method Room Air Sepsis Recent Fever Within 48 Hours No Sepsis New/Unexplained Change in Mental Status N/A Sepsis Action Taken by Nursing No Action Required 08/05/20 16:30 08/05/20 17:00 08/05/20 17:42 Temperature Temperature Source Pulse Rate 73 78 83 Pulse Rate from SpO2 Sensor 75 78 80 Respiratory Rate 23 24 17 Respiratory Effort / Characteristics Respiratory Depth Respiratory Pattern Blood Pressure Blood Pressure Mean Blood Pressure Position Pulse Oximetry 96 93 99 Oxygen Delivery Method Sepsis Recent Fever Within 48 Hours Sepsis New/Unexplained Change in Mental Status Sepsis Action Taken by Nursing 08/05/20 18:00 08/05/20 18:30 08/05/20 19:00 Temperature Temperature Source Pulse Rate 79 83 79 Pulse Rate from SpO2 Sensor 79 80 Respiratory Rate Respiratory Effort / Characteristics Respiratory Depth Respiratory Pattern Blood Pressure Blood Pressure Mean Blood Pressure Position Pulse Oximetry 96 92 Oxygen Delivery Method Sepsis Recent Fever Within 48 Hours Sepsis New/Unexplained Change in Mental Status Sepsis Action Taken by Nursing Laboratory Data Result diagrams: 08/05/20 16:06 08/05/20 16:06 Lab Results 08/05/20 08/05/20 08/05/20 Range/Units 16:00 16:04 16:04 WBC (4.8-10.8) K/uL RBC (4.7-6.1) M/uL Hgb (14.0-18.0) g/dL Hct (42-52) % MCV (80-100) fL MCH (25-34) pg MCHC (32-36) g/dL RDW Std Deviation (36.4-46.3) fL RDW Coeff of Andrew (11.5-14.5) % Plt Count (130-400) K/uL MPV (7.4-10.4) fL Immature Gran % (Auto) % Neut % (Auto) % Lymph % (Auto) % Zapata % (Auto) % Eos % (Auto) % Baso % (Auto) % Neut # (Auto) (1.4-6.5) K/uL Lymph # (Auto) (1.2-3.4) K/uL Zapata # (Auto) (0.11-0.59) K/uL Eos # (Auto) (0-0.5) K/uL Baso # (Auto) (0-0.2) K/uL Immature Gran # (Auto) (0.00-0.02) K/uL Absolute Nucleated RBC (0-0) K/uL Nucleated RBC % (auto) % Hypochromasia Anisocytosis Sodium (136-145) mmol/L Potassium (3.5-5.1) mmol/L Chloride (98-107) mmol/L Carbon Dioxide (21-32) mmol/L Anion Gap (3-11) BUN (7-18) mg/dl Creatinine (0.6-1.4) mg/dl Est Cr Clr Drug Dosing ml/min Est GFR ( Amer) Est GFR (Non-Af Amer) BUN/Creatinine Ratio (10-20) Glucose (70-99) mg/dl Calcium (8.5-10.1) mg/dl Total Bilirubin (0.2-1) mg/dl AST (15-37) U/L ALT (12-78) U/L Alkaline Phosphatase (45-117) U/L Troponin I (0-0.045) ng/ml Total Protein (6.4-8.2) gm/dl Albumin (3.4-5.0) gm/dl Globulin (2.5-4.0) gm/dl Albumin/Globulin Ratio (0.9-2) Lipase (73-393) U/L Urine Color Urine Appearance (Clear) Urine pH (4.5-7.5) Ur Specific Eccles (1.000-1.030) Urine Protein (Negative) Urine Glucose (UA) (Negative) Urine Ketones (Negative) Urine Blood (Negative) Urine Nitrite (Negative) Urine Bilirubin (Negative) Urine Urobilinogen (Negative) Ur Leukocyte Esterase (Negative) Urine WBC (Auto) (0-5) /hpf Urine RBC (Auto) (0-4) /hpf U Hyaline Cast (Auto) (0-5) /lpf U Epithel Cells (Auto) (0-5) /lpf Urine Bacteria (Auto) (Negative) Ur Renal Epithelial Cell COVID-19 Eval Order Covid19 Done at [facility] Covid19 Sent to [facility] Cristina COVID-19 PCR Cancelled 08/05/20 08/05/20 08/05/20 Range/Units 16:06 16:06 16:06 WBC 7.04 (4.8-10.8) K/uL RBC 2.26 L (4.7-6.1) M/uL Hgb 7.1 L (14.0-18.0) g/dL Hct 23.2 L (42-52) % MCV 102.7 H (80-100) fL MCH 31.4 (25-34) pg MCHC 30.6 L (32-36) g/dL RDW Std Deviation 70.4 H (36.4-46.3) fL RDW Coeff of Andrew 18.8 H (11.5-14.5) % Plt Count 216 (130-400) K/uL MPV 9.6 (7.4-10.4) fL Immature Gran % (Auto) 0.6 % Neut % (Auto) 57.3 % Lymph % (Auto) 24.1 % Zapata % (Auto) 12.1 % Eos % (Auto) 5.3 % Baso % (Auto) 0.6 % Neut # (Auto) 4.04 (1.4-6.5) K/uL Lymph # (Auto) 1.70 (1.2-3.4) K/uL Zapata # (Auto) 0.85 H (0.11-0.59) K/uL Eos # (Auto) 0.37 (0-0.5) K/uL Baso # (Auto) 0.04 (0-0.2) K/uL Immature Gran # (Auto) 0.04 H (0.00-0.02) K/uL Absolute Nucleated RBC 0.04 H (0-0) K/uL Nucleated RBC % (auto) 0.5 % Hypochromasia Present Anisocytosis Present Sodium 133 L (136-145) mmol/L Potassium 3.6 (3.5-5.1) mmol/L Chloride 104 (98-107) mmol/L Carbon Dioxide 23 (21-32) mmol/L Anion Gap 6.0 (3-11) BUN 20 H (7-18) mg/dl Creatinine 1.53 H (0.6-1.4) mg/dl Est Cr Clr Drug Dosing 43.2 ml/min Est GFR ( Amer) 53.4 Est GFR (Non-Af Amer) 46.0 BUN/Creatinine Ratio 13.2 (10-20) Glucose 98 (70-99) mg/dl Calcium 8.8 (8.5-10.1) mg/dl Total Bilirubin 0.5 (0.2-1) mg/dl AST 12 L (15-37) U/L ALT 15 (12-78) U/L Alkaline Phosphatase 132 H (45-117) U/L Troponin I < 0.015 (0-0.045) ng/ml Total Protein 10.9 H (6.4-8.2) gm/dl Albumin 3.1 L (3.4-5.0) gm/dl Globulin 7.8 H (2.5-4.0) gm/dl Albumin/Globulin Ratio 0.4 L (0.9-2) Lipase 88 (73-393) U/L Urine Color Yellow Urine Appearance Clear (Clear) Urine pH 5.5 (4.5-7.5) Ur Specific Eccles 1.028 (1.000-1.030) Urine Protein 2+ H (Negative) Urine Glucose (UA) Negative (Negative) Urine Ketones Trace H (Negative) Urine Blood 1+ H (Negative) Urine Nitrite Negative (Negative) Urine Bilirubin Negative (Negative) Urine Urobilinogen Negative (Negative) Ur Leukocyte Esterase Negative (Negative) Urine WBC (Auto) 1-5 (0-5) /hpf Urine RBC (Auto) 0-4 (0-4) /hpf U Hyaline Cast (Auto) 10-30 H (0-5) /lpf U Epithel Cells (Auto) >30 H (0-5) /lpf Urine Bacteria (Auto) Negative (Negative) Ur Renal Epithelial Cell Not Reportable COVID-19 Eval Order Nasopharyn COVID-19 PCR Administered Medications Levofloxacin/Dextrose (Levaquin/D5w) 750 mg in 150 mls @ 100 mls/hr IV NOW STA Stop: 08/05/20 19:55 Last Admin: 08/05/20 18:42 Dose: 100 mls/hr Documented by: [id number] Discontinued Medications Sodium Chloride (Nss 1000ml) 1,000 mls @ 999 mls/hr IV .Q1H1M ONE Stop: 08/05/20 16:36 Last Infusion: 08/05/20 17:08 Dose: 0 mls/hr Documented by: [id number] Admin: 08/05/20 16:02 Dose: 999 mls/hr Documented by: [id number] Ioversol (Ioversol 100ml) 94 ml IV ONCE ONE Stop: 08/05/20 17:29 Last Admin: 08/05/20 17:28 Dose: 94 ml Documented by: [id number] Discharge Plan Visit Data Chief Complaint: Respiratory Problems Stated Complaint: PNEUMONIA IN RIGHT LUNG/NAUSEOUS ED Provider: Colten Rae Discharge Problem: COPD (chronic obstructive pulmonary disease), Bilateral pneumonia, Multiple myeloma, Elevated BUN Forms Stand Alone Forms: My [facility] [employer] Prescriptions Prescriptions: No Action atorvastatin 80 mg tablet 80 mg PO QPM RF: 0 lisinopril 20 mg tablet 20 mg PO DAILY RF: 0 aspirin 81 mg tablet,delayed release (DR/EC) 81 mg PO QAM RF: 0 pantoprazole 40 mg tablet,delayed release (DR/EC) 40 mg PO DAILY RF: 0 nitroglycerin 0.4 mg tablet, sublingual 0.4 mg sublingual DIRECTED PRN (Reason: Chest Pain) RF: 0 metoprolol tartrate 25 mg tablet 25 mg PO BID RF: 0 ferrous sulfate 325 mg (65 mg iron) Tablet 325 mg PO BID RF: 0 doxycycline hyclate 100 mg capsule 100 mg PO BID RF: 0 hydrocodone-acetaminophen 10-325 mg tablet 1 tab PO Q6H PRN (Reason: Pain, Moderate) RF: 0 Revlimid 10 mg capsule 10 mg PO DIRECTED RF: 0 Discharge Problem: COPD (chronic obstructive pulmonary disease) Qualifiers: COPD type: unspecified COPD Qualified Code(s): J44.9 - Chronic obstructive pulmonary disease, unspecified Bilateral pneumonia Qualifiers: Pneumonia type: due to unspecified organism Lung location: unspecified part of lung Qualified Code(s): J18.9 - Pneumonia, unspecified organism Multiple myeloma Qualifiers: Multiple myeloma remission status: unspecified Qualified Code(s): C90.00 - Multiple myeloma not having achieved remission
[2020-08-05 16:20] LABS: Basophils # (auto) 0.04 K/uL (0-0.2); Basophils % (auto) 0.6 %; Eosinophils # (auto) 0.37 K/uL (0-0.5); Eosinophils % (auto) 5.3 %; Hematocrit (blood only) 23.2 % (42-52); Hemoglobin 7.1 g/dL (14.0-18.0); Immature Granulocytes # (auto) 0.04 K/uL (0.00-0.02); Immature Granulocytes % (auto) 0.6 %; Lymphocytes % (auto) 24.1 %; Mean Corpuscular Hemoglobin 31.4 pg (25-34); Mean Corpuscular Hgb Conc 30.6 g/dL (32-36); Mean Corpuscular Volume 102.7 fL (80-100); Mean Platelet Volume 9.6 fL (7.4-10.4); Monocytes # (auto) 0.85 K/uL (0.11-0.59); Monocytes % (auto) 12.1 %; Neutrophils # (auto) 4.04 K/uL (1.4-6.5); Neutrophils % (auto) 57.3 %; Nucleated RBC # (auto) 0.04 K/uL (0-0); Nucleated RBC % (auto) 0.5 %; Platelet Count 216 K/uL (130-400); RDW Coefficient of Variation 18.8 % (11.5-14.5); RDW Standard Deviation 70.4 fL (36.4-46.3); Red Blood Count 2.26 M/uL (4.7-6.1); White Blood Count 7.04 K/uL (4.8-10.8)
[2020-08-05 16:23] LABS: Appearance Urine Clear (Clear); Bacteria Urine Automated Negative (Negative); Bilirubin Urine Negative (Negative); Blood Urine 1+ (Negative); Color Urine Yellow; Epithelial Cell Urine Auto >30 /lpf (0-5); Glucose Urine UA Negative (Negative); Ketones Urine Trace (Negative); Leukocyte Esterase Urine Negative (Negative); Nitrite Urine Negative (Negative); Protein Urine 2+ (Negative); RBC Urine Automated 0-4 /hpf (0-4); Specific Gravity Urine 1.028 (1.000-1.030); Urobilinogen Urine Negative (Negative); pH Urine 5.5 (4.5-7.5)
[2020-08-05 16:37] LABS: Alanine Aminotransferase 15 U/L (12-78); Albumin Level 3.1 gm/dl (3.4-5.0); Aspartate Aminotransferase 12 U/L (15-37); BUN Creatinine Ratio 13.2 (10-20); Blood Urea Nitrogen 20 mg/dl (7-18); Calcium 8.8 mg/dl (8.5-10.1); Carbon Dioxide 23 mmol/L (21-32); Chloride 104 mmol/L (98-107); Creatinine Clr Calc Pharmacy 43.2 ml/min; Est GFR (African American) 53.4; Glucose 98 mg/dl (70-99); Lipase 88 U/L (73-393); Potassium 3.6 mmol/L (3.5-5.1); Sodium 133 mmol/L (136-145)
[2020-08-05 16:41] LABS: Albumin Globulin Ratio 0.4 (0.9-2); Alkaline Phosphatase 132 U/L (45-117); Bilirubin,Total 0.5 mg/dl (0.2-1); Globulin 7.8 gm/dl (2.5-4.0); Total Protein 10.9 gm/dl (6.4-8.2); Troponin I < 0.015 ng/ml (0-0.045)
[2020-08-05 16:49] LABS: Anisocytosis Present; Hypochromasia Present
--- NOTE | 2020-08-05 17:23 | XRay Report ---
XR chest 1V portable CLINICAL HISTORY: ? pna COMPARISON STUDY: Chest CT April 25, 2020. FINDINGS: There is no pneumothorax. Trace right pleural effusion is noted. Moderate bilateral lower l bartolo airspace opacities are present. There is moderate cardiomegaly. There is no pneumothorax. There i s no radiographic evidence for pulmonary edema. Several old right rib fractures are present. IMPRESSION: Bibasilar consolidation suggestive of pneumonia. Radiographic follow-up is recommended. ACT 112: Negative or not required by law. Electronically signed by: Chandrakant Hdz M.D. 08/05/2020 5:22 PM
[2020-08-05] MEDS ORDERED: IOVERSOL 100ml IV ONE (17:28)
--- NOTE | 2020-08-05 18:00 | CT Scan Report ---
CT OF THE ABDOMEN AND PELVIS WITH CONTRAST CLINICAL HISTORY: Abdominal pain. COMPARISON STUDY: CT of the abdomen and pelvis April 16, 2012. MRCP April 17, 2012. TECHNIQUE: Following IV administration of 94 mL of Optiray-320, axial images of the abdomen and pelvi s were obtained from the lung bases to the proximal femurs. Images were reviewed in the axial, sagitt al, and coronal planes. IV contrast was administered without complication. Automated exposure contro l was utilized for the study. A dose lowering technique was utilized adhering to the principles of A ENDER. CT DOSE: 536.70 mGycm FINDINGS: Imaged portions of the lower chest demonstrate moderate multifocal airspace opacities, most pronounced within the right lower lobe. There is mild interlobular septal thickening. In addition, n ote is made of a expansile lytic lesion within the posterior left 10th rib. No pneumatosis, free air or portal venous gas is present. Hepatic lesions reflect cysts. There is mild splenomegaly. The adren al glands and pancreas are unremarkable. There is no biliary or pancreatic ductal dilatation status p ost cholecystectomy. Several hypodense right renal lesions measure up to 1.5 cm. When correlating wit h prior CT, these probably reflect hyperdense cysts. There is no hydronephrosis. There is no evidence for a bowel obstruction. A moderate amount of stool within the rectum is noted. A few small bowel lo ops extend into the proximal aspect of the right inguinal hernia. Fat-containing left inguinal hernia is present. There is no abdominal or pelvic lymphadenopathy. Note is made of an infrarenal abdominal aortic aneurysm that measures 5.2 x 4.4 cm. This has significantly increased in caliber since CT of April 16, 2012. 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 There is extensive aortoiliac atherosclerotic plaque. There is no evidence for rupture. There is mild loss of height of the inferior endplate of L4. This is probably subacute to chronic. There i s mild loss of height of the superior endplate of T12 which is old. This may reflect a Schmorl's node . IMPRESSION: 1. 5.2 x 4.4 cm infrarenal abdominal aortic aneurysm which has significantly increased in size since CT of April 16, 2012. 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 Aneurysmal dilatation o f the bilateral common iliac arteries, as described above. Extensive aortoiliac atherosclerotic plaqu e. No evidence for rupture. Minimal perianeurysmal soft tissue/fibrosis. 2. Lytic expansile lesion within the posterior left 10th rib which is consistent with a neoplastic pr ocess. Metastatic disease and multiple myeloma are primary considerations. 3. Moderate airspace opacities within the lower lungs which favor an infectious process. This may ref lect bacterial or viral pneumonia. ACT 112: Negative or not required by law. Electronically signed by: Chandrakant Hdz M.D. 08/05/2020 5:59 PM
[2020-08-05] MEDS ORDERED: levoFLOXacin/D5W 750 MG/150 ML BAG IV STA (18:26)
--- NOTE | 2020-08-05 21:44 | History and Physical Report ---
DATE OF ADMISSION: 08/05/2020 CHIEF COMPLAINT: Abdominal discomfort, pneumonia. HISTORY OF PRESENT ILLNESS: This is a 70-year-old male with past medical history significant for CAD status post stent, peripheral vascular disease, hypertension, hyperlipidemia, valvular heart disease with moderate MR and mild TR, AR on echo, chronic obstructive pulmonary disease, chronic anemia, baseline hemoglobin around 7, recently diagnosed with bladder mass, probable metastatic malignancy, post tobacco use, history of multiple myeloma and plasmacytoma, lives at home with his , comes because he has some abdominal discomfort. He was recently diagnosed with pneumonia. He is on doxycycline, almost a week now. Denies any chest pain, no shortness of breath. He has some dry cough, but denies any phlegm. No fever, no chills, no headache, no blurred vision, no earache, no runny nose, no sore throat. 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 Appetite is okay. No nausea, no vomiting, no diarrhea or constipation. Denies any blood in the stools. Denies any hematuria. No rash. Currently resting comfortably and hemodynamically stable, somewhat upset that he is getting admitted. ALLERGIES: OYSTER SHELL, CALCIUM. PAST MEDICAL HISTORY: As mentioned above. PAST SURGICAL HISTORY: Bone marrow biopsy, colonoscopy, EGD, laparoscopic cholecystectomy. MEDICATIONS: The patient is on aspirin 81 mg p.o. daily, atorvastatin 80 mg p.o. daily p.m., doxycycline 100 mg p.o. b.i.d., ferrous sulfate 325 mg p.o. b.i.d., hydrocodone acetaminophen 1 tablet p.o. q. 6 hours p.r.n., Revlimid 20 mg as directed, lisinopril 20 mg p.o. daily, metoprolol tartrate 25 mg p.o. b.i.d., nitroglycerin 0.4 mg sublingual p.r.n., Protonix 40 mg p.o. daily. FAMILY HISTORY: No family history in file. SOCIAL HISTORY: . Former smoker, quit in March 2020, smoked 1 pack a day for 40 years. No alcohol use. Smokes marijuana. REVIEW OF SYMPTOMS: As per HPI. Rest of review of symptoms negative. PHYSICAL EXAMINATION: GENERAL: The patient is of moderate build, not in acute distress. VITAL SIGNS: Temperature 37.1, pulse 83, respiratory rate 17, blood pressure 177/97, oxygen 92% on room air. HEENT: Pupils equal, round, reactive to light. Oral mucosa moist. NECK: No JVD, no neck masses. CARDIOVASCULAR: S1, S2 heard, regular rate and rhythm, no murmur, no gallop. RESPIRATORY SYSTEM: Normal AP diameter. No accessory muscle use. No wheezing, no crackles. ABDOMEN: Soft, bowel sounds present, nontender. No distention. CENTRAL NERVOUS SYSTEM: Cranial nerves II-XII grossly intact, nonfocal. EXTREMITIES: No edema, no erythema. LABORATORY DATA: WBC 7, hemoglobin 7.1, hematocrit 23.2, platelets 216. Sodium 133, potassium 3.6, chloride 104, bicarbonate 23, BUN 20, creatinine 1.53, serum glucose 98, calcium 8.8, total bilirubin 0.5, AST 12, ALT 15, alkaline phosphatase 132. Troponin I less than 0.015. Lipase 88. Urinalysis, +1 glucose. COVID-19 PCR negative. Chest x-ray, bibasilar consolidation suggestive of pneumonia. CT of abdomen and pelvis with contrast shows 5.2 x 4.4 cm infrarenal abdominal aortic aneurysm, lytic expanding lesion within the posterior left 10th rib, which is consistent with a neoplastic process, moderate airspace opacities within the lower lungs, which favors an infectious process. ASSESSMENT AND PLAN: This is a 70-year-old male who recently had bladder cancer, multiple myeloma and plasmacytoma, getting antibiotics for pneumonia, comes because of abdominal discomfort and concerns for still ongoing pneumonia. 1. Pneumonia: Almost had 1 week of doxycycline . ER started on Levaquin which we will continue. If patient is feeling better His COVID-19 is negative. Monitor in the hospital. 2. Bladder tumor: Recent TURBT. Pathology showing high grade urothelial cancer. Supposed to get surgery but postponed and supposed to see urology locally. 3. Multiple myeloma and plasmacytoma: Follow up with hematology/oncology. 4. Anemia: Seems chronic. The patient denies any active bleeding. Hemoglobin around baseline is 7, currently 7.1. Follow the labs in a.m. If below 7, will need PRBCs transfusion. 5. History of coronary artery disease status post stent. Continue his aspirin, statin and beta-rené. 6. Hypertension. Continue lisinopril, metoprolol. Follow the blood pressure. 7. Hyperlipidemia: Continue statin. 8. Gastroesophageal reflux disease. Continue Protonix. 9. History of chronic obstructive pulmonary disease. Currently stable. 10. Deep venous thrombosis prophylaxis, sequential compression devices for now. DISPOSITION: Closely monitor in the medical floor. Level 1 full code. Expect discharge home and follow with family doctor. JUSTEN
[2020-08-05] MEDS ORDERED: ONDANSETRON INJ 2 MG/ML 2 ML VIAL IV PRN (22:02)
[2020-08-05] MEDS ORDERED: ATORVASTATIN 40 MG TAB PO SCH (22:02)
[2020-08-05] MEDS ORDERED: POLYETHYLENE (MIRALAX) 17 GM PACK PO PRN (22:02)
[2020-08-05] MEDS ORDERED: HYDROcodone/ACETAMINOPHEN 10/325 TAB PO PRN (22:02)
[2020-08-05] MEDS ORDERED: NITROGLYCERIN SL 0.4 MG/TAB TAB SL PRN (22:02)
[2020-08-05] MEDS ORDERED: ACETAMINOPHEN 325 MG TAB PO PRN (22:02)
[2020-08-06] MEDS: METOPROLOL TARTRATE 25 MG TAB PO SCH ×2 (00:27→09:42)
[2020-08-06] MEDS: FERROUS SULFATE 325 MG TAB PO SCH ×2 (00:28→08:52)
[2020-08-06 06:45] LABS: Hemoglobin 6.7 g/dL (14.0-18.0); Mean Corpuscular Hemoglobin 31.3 pg (25-34); Mean Corpuscular Hgb Conc 30.5 g/dL (32-36); Mean Corpuscular Volume 102.8 fL (80-100); Mean Platelet Volume 9.8 fL (7.4-10.4); Nucleated RBC # (auto) 0.05 K/uL (0-0); Nucleated RBC % (auto) 0.8 %; Platelet Count 211 K/uL (130-400); RDW Coefficient of Variation 18.9 % (11.5-14.5); RDW Standard Deviation 71.1 fL (36.4-46.3); Red Blood Count 2.14 M/uL (4.7-6.1); White Blood Count 6.64 K/uL (4.8-10.8)
[2020-08-06 06:59] LABS: BUN Creatinine Ratio 13.8 (10-20); Calcium 8.6 mg/dl (8.5-10.1); Creatinine Clr Calc Pharmacy 46.5 ml/min; Est GFR (African American) 58.4; Est GFR (Non-African American) 50.4; Magnesium 1.4 mg/dl (1.8-2.4); Potassium 3.9 mmol/L (3.5-5.1)
[2020-08-06 07:25] VITALS: BP 153/91; PULSE 80; TEMP 98.1; O2SAT 95
[2020-08-06 08:00] LABS: Anisocytosis Present; Basophils # (auto) 0.03 K/uL (0-0.2); Basophils % (auto) 0.5 %; Eosinophils # (auto) 0.36 K/uL (0-0.5); Eosinophils % (auto) 5.4 %; Hypochromasia Present; Immature Granulocytes # (auto) 0.03 K/uL (0.00-0.02); Immature Granulocytes % (auto) 0.5 %; Lymphocytes # (auto) 1.48 K/uL (1.2-3.4); Lymphocytes % (auto) 22.3 %; Monocytes # (auto) 0.89 K/uL (0.11-0.59); Monocytes % (auto) 13.4 %; Neutrophils # (auto) 3.85 K/uL (1.4-6.5); Neutrophils % (auto) 57.9 %; Poikilocytosis Present
[2020-08-06] MEDS ORDERED: PANTOprazole 40 MG TAB PO SCH (09:00)
[2020-08-06] MEDS ORDERED: ASPIRIN 81 MG ECTAB PO SCH (09:00)
[2020-08-06] MEDS ORDERED: ADVANCED PROBIOTIC 1250 MG CAPSULE PO SCH (09:00)
[2020-08-06] MEDS ORDERED: lisinopril 20 MG TAB PO SCH (09:00)
--- NOTE | 2020-08-06 10:57 | Electrocardiogram Report ---
Test Reason : Blood Pressure : / mmHG Vent. Rate : 084 BPM Atrial Rate : 084 BPM P-R Int : 218 ms QRS Dur : 100 ms QT Int : 390 ms P-R-T Axes : 061 059 062 degrees QTc Int : 460 ms Sinus rhythm with 1st degree A-V block Minimal voltage criteria for LVH, may be normal variant ( Sokolow-Bhakta ) Borderline ECG When compared with ECG of 05-AUG-2020 16:04, (unconfirmed) Criteria for Inferior infarct are no longer Present Confirmed by Roland Turcios ([id number]) on 08/06/2020 10:57:05 AM Referred By: REFERRED SELF Confirmed By:Roland Turcios
--- NOTE | 2020-08-06 11:24 | Hospitalist Progress Note ---
Date of Service August 06, 2020 Assessment & Plan (1) Bilateral pneumonia: (2) Multiple myeloma: (3) GERD (gastroesophageal reflux disease): (4) Primary bladder malignant neoplasm: (5) Coronary artery disease: (6) Hypertension: (7) Smoker: (8) Anemia: Discuss c patient need for transfusion and DC later today Labs Checked ROS-No Headache, No Visual Changes, No Nausea, No Vomiting, No Fever, No Chills, No Neck Pain or Stiffness, No Chest Pain, No Palpitations, No SOB, No BLACK, No Cough, No Sputum, No Wheezing, No Abdominal Pain, No Diarrhea, No Hematemesis, No Hemoptysis, No Unexpected Weight Loss, No Flank pain, No Melena, No Hematochezia, No Frequency, No Urgency, No Burning, No Hematuria, No Rashes, No Diaphoresis. Appetite is Normal Physical Exam Gen-AAO x 3, NAD, Afebrile Head-NCAT, EOMI, PERRLA, Anicteric Sclera, No Posterior Pharyngeal Erythema Neck-Supple, No JVD, No Thyromegaly, No Masses, No LAD, No Bruits Lungs-Clear to Auscultation Bilaterally, No Rales, No Rhonchi, No Wheezing, No Crepitus Chest-No S4, +S1, +S2, No S3, No Murmurs, No Rubs, No Gallops, No Ectopy Abdomen-Soft, Bowel Sounds Present, Non Tender, Non Distended, No Hepatomegaly, No Splenomegaly, No Palpable Masses, No Rebound, No Rigidity, No Guarding Musculoskeletal-Full Range of Motion Bilaterally, No CVAT Extremities-No Cyanosis, No Clubbing, No Edema Nuero-Cranial Nerves II-XII grossly intact, Motor WNL, DTRs WNL, Strength WNL, Non Focal Psych-Normal Mood Admission and Anticipated Discharge Date Admission Date: August 05, 2020 Results & Data Results & Data ([facility]) Vital Signs (Past 12 Hours) Vital Signs Temp Pulse Resp BP Pulse Ox 08/06/20 07:23 36.7 C 80 16 153/91 H 95 08/06/20 00:30 36.8 C 08/06/20 00:26 86 16 161/87 H 98 08/05/20 23:49 37.3 C 82 14 147/81 H 95 (1) Bilateral pneumonia Lung location: unspecified part of lung Pneumonia type: due to unspecified organism Qualified Code(s): J18.9 - Pneumonia, unspecified organism (2) Multiple myeloma Multiple myeloma remission status: unspecified Qualified Code(s): C90.00 - Multiple myeloma not having achieved remission
[2020-08-06 12:29] LABS: Hematocrit (blood only) 22.4 % (42-52); Hemoglobin 6.8 g/dL (14.0-18.0)
--- NOTE | 2020-08-06 12:45 | Discharge Summary ---
Date of Service August 06, 2020 Admission HPI Per Admitting Provider 70-year-old male with past medical history significant for CAD status post stent, peripheral vascular disease, hypertension, hyperlipidemia, valvular heart disease with moderate MR and mild TR, AR on echo, chronic obstructive pulmonary disease, chronic anemia, baseline hemoglobin around 7, recently diagnosed with bladder mass, probable metastatic malignancy, post tobacco use, history of multiple myeloma and plasmacytoma, lives at home with his , comes because he has some abdominal discomfort. He was recently diagnosed with pneumonia. He is on doxycycline, almost a week now. Denies any chest pain, no shortness of breath. He has some dry cough, but denies any phlegm. No fever, no chills, no headache, no blurred vision, no earache, no runny nose, no sore throat. 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 Appetite is okay. No nausea, no vomiting, no diarrhea or constipation. Denies any blood in the stools. Denies any hematuria. No rash. Currently resting comfortably and hemodynamically stable, somewhat upset that he is getting admitted. Admission Exam Per Admitting Provider PHYSICAL EXAMINATION: GENERAL: The patient is of moderate build, not in acute distress. VITAL SIGNS: Temperature 37.1, pulse 83, respiratory rate 17, blood pressure 177/97, oxygen 92% on room air. HEENT: Pupils equal, round, reactive to light. Oral mucosa moist. NECK: No JVD, no neck masses. CARDIOVASCULAR: S1, S2 heard, regular rate and rhythm, no murmur, no gallop. RESPIRATORY SYSTEM: Normal AP diameter. No accessory muscle use. No wheezing, no crackles. ABDOMEN: Soft, bowel sounds present, nontender. No distention. CENTRAL NERVOUS SYSTEM: Cranial nerves II-XII grossly intact, nonfocal. EXTREMITIES: No edema, no erythema. Principal Diagnosis 1. Pneumonia: 2. Bladder tumor: 3. Multiple myeloma and plasmacytoma: 4. Anemia: 5. History of coronary artery disease status post stent. 6. Hypertension. 7. Hyperlipidemia: 8. Gastroesophageal reflux disease. 9. History of chronic obstructive pulmonary disease. Discharge Exam see below Discharge Data Allergies Allergy/AdvReac Type Severity Reaction Status Date / Time shellfish derived Allergy Intermediate HIVES Verified 06/23/20 21:00 Consultations 08/05/20 18:26 ED Decision to Admit Stat 08/05/20 22:02 Consult Case Management - Discharge Planning Routine Ordered Studies 08/05/20 15:36 CT abd pelvis IV con only Stat Current Diagnoses Malignant neoplasm of bladder, unspecified (08/05/20) Multiple myeloma not having achieved remission (08/05/20) Anemia, unspecified (08/05/20) Nicotine dependence, unspecified, uncomplicated (08/05/20) Essential (primary) hypertension (08/05/20) Atherosclerotic heart disease of [place] coronary artery without angina pectoris (08/05/20) Pneumonia, unspecified organism (08/05/20) Gastro-esophageal reflux disease without esophagitis (08/05/20) Allergies shellfish derived Allergy (Intermediate, Verified 06/23/20 21:00) HIVES Height/Weight/Isolation Height 5 ft 7 in Weight 70 kg Isolation Type Removed Precautions Chemistry 08/05/20 08/06/20 16:06 05:25 Sodium 133 L 134 L Potassium 3.6 3.9 Chloride 104 107 Carbon Dioxide 23 24 Anion Gap 6.0 3.0 BUN 20 H 20 H Creatinine 1.53 H 1.42 H Glucose 98 93 Urinalysis 08/05/20 16:06 Urine Color Yellow Urine Appearance Clear Urine pH 5.5 Ur Specific [place] 1.028 Urine Protein 2+ H Urine Glucose (UA) Negative Urine Ketones Trace H Urine Blood 1+ H Urine Nitrite Negative Urine Bilirubin Negative Hospital Course (1) Bilateral pneumonia: (2) Multiple myeloma: (3) GERD (gastroesophageal reflux disease): (4) Primary bladder malignant neoplasm: (5) Coronary artery disease: (6) Hypertension: (7) Smoker: (8) Anemia: Discussed c patient need for transfusion, he doesn't want it, he says he's at his baseline and doesn't want to stay. He says his Hb will come up and he's starting chemo soon. He's been walking the halls and feels fine. He agrees to return if his condition changes. I offered to transfuse a unit, but he declined. ROS-No Headache, No Visual Changes, No Nausea, No Vomiting, No Fever, No Chills, No Neck Pain or Stiffness, No Chest Pain, No Palpitations, No SOB, No BLACK, No Cough, No Sputum, No Wheezing, No Abdominal Pain, No Diarrhea, No Hematemesis, No Hemoptysis, No Unexpected Weight Loss, No Flank pain, No Melena, No Hematochezia, No Frequency, No Urgency, No Burning, No Hematuria, No Rashes, No Diaphoresis. Appetite is Normal Physical Exam Gen-AAO x 3, NAD, Afebrile Head-NCAT, EOMI, PERRLA, Anicteric Sclera, No Posterior Pharyngeal Erythema Neck-Supple, No JVD, No Thyromegaly, No Masses, No LAD, No Bruits Lungs-Clear to Auscultation Bilaterally, No Rales, No Rhonchi, No Wheezing, No Crepitus Chest-No S4, +S1, +S2, No S3, No Murmurs, No Rubs, No Gallops, No Ectopy Abdomen-Soft, Bowel Sounds Present, Non Tender, Non Distended, No Hepatomegaly, No Splenomegaly, No Palpable Masses, No Rebound, No Rigidity, No Guarding Musculoskeletal-Full Range of Motion Bilaterally, No CVAT Extremities-No Cyanosis, No Clubbing, No Edema Nuero-Cranial Nerves II-XII grossly intact, Motor WNL, DTRs WNL, Strength WNL, Non Focal Psych-Normal Mood Total Time Total Time Spent Total Time Spent (In Minutes): 45 mins Total Time Includes: Examination of the Patient, Discharge Planning, Medication Reconciliation and Communication With Other Providers Discharge Plan Discharge Items Patient Disposition: Home - Self-Care Reason For Visit: ABD DISCOMFORT Discharge Diagnosis: 1. Pneumonia: 2. Bladder tumor: 3. Multiple myeloma and plasmacytoma: 4. Anemia: 5. History of coronary artery disease status post stent. 6. Hypertension. 7. Hyperlipidemia: 8. Gastroesophageal reflux disease. 9. History of chronic obstructive pulmonary disease. Condition on Discharge: Good Health Concerns: Drop in Hb Activity: Resume your previous activity Lifting: None Bathing: No limitations Sexual Activity: When tolerated Exercise/Sports: None Driving/Machine Use: No limitations Weightbearing: Full weightbearing Non-emergency contact: Primary Care Provider and Oncologist Call non-emergency contact if: you have any medication questions and your symptoms worsen Follow-up/Referrals: Savanah Geiger DO [Primary Care Provider] - (Date & Time 08/12/2020 11:10 AM Provider Savanah Geiger DO [facility] ) Diet: Regular Addtl Attending Provider Instructions: Return if your condition worsens in any way Pending Studies at Discharge: No Stand-Alone Forms: My [facility], Smoking Cessation Medications and DC Order Prescriptions: New levofloxacin 750 mg Tablet 750 mg PO Q48H Qty: 5 RF: 0 Continued atorvastatin 80 mg tablet 80 mg PO QPM RF: 0 lisinopril 20 mg tablet 20 mg PO DAILY RF: 0 aspirin 81 mg tablet,delayed release (DR/EC) 81 mg PO QAM RF: 0 pantoprazole 40 mg tablet,delayed release (DR/EC) 40 mg PO DAILY RF: 0 nitroglycerin 0.4 mg tablet, sublingual 0.4 mg sublingual DIRECTED PRN (Reason: Chest Pain) RF: 0 metoprolol tartrate 25 mg tablet 25 mg PO BID RF: 0 ferrous sulfate 325 mg (65 mg iron) Tablet 325 mg PO BID RF: 0 hydrocodone-acetaminophen 10-325 mg tablet 1 tab PO Q6H PRN (Reason: Pain, Moderate) RF: 0 Revlimid 10 mg capsule 10 mg PO DIRECTED RF: 0 Discontinued doxycycline hyclate 100 mg capsule 100 mg PO BID RF: 0 Discharge Orders: Discharge Order (Routine); Ordered 08/06/20 Ordered By: Brian Louis/Other Patient Handouts: Anemia During Cancer Admission Data Admit Date/Time: 08/05/20 20:32 Attending Provider: Brian Coyle Admit Provider: Lawrence Cochran Primary Care Provider: Savanah Geiger Other Providers: Lizet Collier
--- NOTE | 2020-08-06 12:54 | Discharge Summary ---
Date of Service August 06, 2020 Admission HPI Per Admitting Provider 70-year-old male with past medical history significant for CAD status post stent, peripheral vascular disease, hypertension, hyperlipidemia, valvular heart disease with moderate MR and mild TR, AR on echo, chronic obstructive pulmonary disease, chronic anemia, baseline hemoglobin around 7, recently diagnosed with bladder mass, probable metastatic malignancy, post tobacco use, history of multiple myeloma and plasmacytoma, lives at home with his , comes because he has some abdominal discomfort. He was recently diagnosed with pneumonia. He is on doxycycline, almost a week now. Denies any chest pain, no shortness of breath. He has some dry cough, but denies any phlegm. No fever, no chills, no headache, no blurred vision, no earache, no runny nose, no sore throat. 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 Appetite is okay. No nausea, no vomiting, no diarrhea or constipation. Denies any blood in the stools. Denies any hematuria. No rash. Currently resting comfortably and hemodynamically stable, somewhat upset that he is getting admitted. Admission Exam Per Admitting Provider PHYSICAL EXAMINATION: GENERAL: The patient is of moderate build, not in acute distress. VITAL SIGNS: Temperature 37.1, pulse 83, respiratory rate 17, blood pressure 177/97, oxygen 92% on room air. HEENT: Pupils equal, round, reactive to light. Oral mucosa moist. NECK: No JVD, no neck masses. CARDIOVASCULAR: S1, S2 heard, regular rate and rhythm, no murmur, no gallop. RESPIRATORY SYSTEM: Normal AP diameter. No accessory muscle use. No wheezing, no crackles. ABDOMEN: Soft, bowel sounds present, nontender. No distention. CENTRAL NERVOUS SYSTEM: Cranial nerves II-XII grossly intact, nonfocal. EXTREMITIES: No edema, no erythema Principal Diagnosis 1. Pneumonia: 2. Bladder tumor: 3. Multiple myeloma and plasmacytoma: 4. Anemia: 5. History of coronary artery disease status post stent. 6. Hypertension. 7. Hyperlipidemia: 8. Gastroesophageal reflux disease. 9. History of chronic obstructive pulmonary disease. Discharge Data Allergies Allergy/AdvReac Type Severity Reaction Status Date / Time shellfish derived Allergy Intermediate HIVES Verified 06/23/20 21:00 Consultations 08/05/20 18:26 ED Decision to Admit Stat 08/05/20 22:02 Consult Case Management - Discharge Planning Routine Ordered Studies 08/05/20 15:36 CT abd pelvis IV con only Stat Current Diagnoses Malignant neoplasm of bladder, unspecified (08/05/20) Multiple myeloma not having achieved remission (08/05/20) Anemia, unspecified (08/05/20) Nicotine dependence, unspecified, uncomplicated (08/05/20) Essential (primary) hypertension (08/05/20) Atherosclerotic heart disease of [place] coronary artery without angina pectoris (08/05/20) Pneumonia, unspecified organism (08/05/20) Gastro-esophageal reflux disease without esophagitis (08/05/20) Allergies shellfish derived Allergy (Intermediate, Verified 06/23/20 21:00) HIVES Height/Weight/Isolation Height 5 ft 7 in Weight 70 kg Isolation Type Removed Precautions Chemistry 08/05/20 08/06/20 16:06 05:25 Sodium 133 L 134 L Potassium 3.6 3.9 Chloride 104 107 Carbon Dioxide 23 24 Anion Gap 6.0 3.0 BUN 20 H 20 H Creatinine 1.53 H 1.42 H Glucose 98 93 Urinalysis 08/05/20 16:06 Urine Color Yellow Urine Appearance Clear Urine pH 5.5 Ur Specific [place] 1.028 Urine Protein 2+ H Urine Glucose (UA) Negative Urine Ketones Trace H Urine Blood 1+ H Urine Nitrite Negative Urine Bilirubin Negative Hospital Course (1) Bilateral pneumonia: (2) Multiple myeloma: (3) GERD (gastroesophageal reflux disease): (4) Primary bladder malignant neoplasm: (5) Coronary artery disease: (6) Hypertension: (7) Smoker: (8) Anemia: Discussed c patient need for transfusion, he doesn't want it, he says he's at his baseline and doesn't want to stay. He says his Hb will come up and he's starting chemo soon. He's been walking the halls and feels fine. He agrees to return if his condition changes. I offered to transfuse a unit, but he declined. Condition code 44 ROS-No Headache, No Visual Changes, No Nausea, No Vomiting, No Fever, No Chills, No Neck Pain or Stiffness, No Chest Pain, No Palpitations, No SOB, No BLACK, No Cough, No Sputum, No Wheezing, No Abdominal Pain, No Diarrhea, No Hematemesis, No Hemoptysis, No Unexpected Weight Loss, No Flank pain, No Melena, No Hematochezia, No Frequency, No Urgency, No Burning, No Hematuria, No Rashes, No Diaphoresis. Appetite is Normal Physical Exam Gen-AAO x 3, NAD, Afebrile Head-NCAT, EOMI, PERRLA, Anicteric Sclera, No Posterior Pharyngeal Erythema Neck-Supple, No JVD, No Thyromegaly, No Masses, No LAD, No Bruits Lungs-Clear to Auscultation Bilaterally, No Rales, No Rhonchi, No Wheezing, No Crepitus Chest-No S4, +S1, +S2, No S3, No Murmurs, No Rubs, No Gallops, No Ectopy Abdomen-Soft, Bowel Sounds Present, Non Tender, Non Distended, No Hepatomegaly, No Splenomegaly, No Palpable Masses, No Rebound, No Rigidity, No Guarding Musculoskeletal-Full Range of Motion Bilaterally, No CVAT Extremities-No Cyanosis, No Clubbing, No Edema Nuero-Cranial Nerves II-XII grossly intact, Motor WNL, DTRs WNL, Strength WNL, Non Focal Psych-Normal Mood Total Time Total Time Spent Total Time Spent (In Minutes): 45mins Total Time Includes: Examination of the Patient, Discharge Planning, Medication Reconciliation and Communication With Other Providers Discharge Plan Discharge Items Patient Disposition: Home - Self-Care Reason For Visit: ABD DISCOMFORT Discharge Diagnosis: 1. Pneumonia: 2. Bladder tumor: 3. Multiple myeloma and plasmacytoma: 4. Anemia: 5. History of coronary artery disease status post stent. 6. Hypertension. 7. Hyperlipidemia: 8. Gastroesophageal reflux disease. 9. History of chronic obstructive pulmonary disease. Condition on Discharge: Good Health Concerns: Drop in Hb Activity: Resume your previous activity Lifting: None Bathing: No limitations Sexual Activity: When tolerated Exercise/Sports: None Driving/Machine Use: No limitations Weightbearing: Full weightbearing Non-emergency contact: Primary Care Provider and Oncologist Call non-emergency contact if: you have any medication questions and your symptoms worsen Follow-up/Referrals: Savanah Geiger DO [Primary Care Provider] - (Date & Time 08/12/2020 11:10 AM Provider Savanah Geiger DO [facility] ) Diet: Regular Addtl Attending Provider Instructions: Return if your condition worsens in any way Pending Studies at Discharge: No Stand-Alone Forms: My [facility], Smoking Cessation Medications and DC Order Prescriptions: New levofloxacin 750 mg Tablet 750 mg PO Q48H Qty: 5 RF: 0 Continued atorvastatin 80 mg tablet 80 mg PO QPM RF: 0 lisinopril 20 mg tablet 20 mg PO DAILY RF: 0 aspirin 81 mg tablet,delayed release (DR/EC) 81 mg PO QAM RF: 0 pantoprazole 40 mg tablet,delayed release (DR/EC) 40 mg PO DAILY RF: 0 nitroglycerin 0.4 mg tablet, sublingual 0.4 mg sublingual DIRECTED PRN (Reason: Chest Pain) RF: 0 metoprolol tartrate 25 mg tablet 25 mg PO BID RF: 0 ferrous sulfate 325 mg (65 mg iron) Tablet 325 mg PO BID RF: 0 hydrocodone-acetaminophen 10-325 mg tablet 1 tab PO Q6H PRN (Reason: Pain, Moderate) RF: 0 Revlimid 10 mg capsule 10 mg PO DIRECTED RF: 0 Discontinued doxycycline hyclate 100 mg capsule 100 mg PO BID RF: 0 Discharge Orders: Discharge Order (Routine); Ordered 08/06/20 Ordered By: Brian Louis/Other Patient Handouts: Anemia During Cancer Admission Data Admit Date/Time: 08/05/20 20:32 Attending Provider: Brian Coyle Admit Provider: Lawrence Cochran Primary Care Provider: Savanah Geiger Other Providers: Lizet Collier
--- NOTE | 2020-08-06 13:22 | Communication Note ---
Date of Service: August 06, 2020 Code 44 documentation: This is a 70-year-old male with past medical history significant for CAD status post stent, peripheral vascular disease,hypertension, hyperlipidemia, valvular heart disease, chronic obstructive pulmonary disease, chronic anemia,baseline hemoglobin around 7, recently diagnosed with bladder mass, probablemetastatic malignancy, post tobacco use, history of multiple myeloma andplasmacytoma, lives at home with his , comes because he has some abdominal discomfort. He was noted to have bibasilar pneumonia and he was put on intravenous Levaquin. His chart, labs and imaging studies reviewed. The attending physicians progress note reviewed as well Medically stable to be discharged. By CMS guidelines, a determination that the admission or continued stay is not medically necessary has been made by a member of the UR committee and a physician for this hospital stay, therefore a Code 44 will be completed and the Inpatient admission will be changed to outpatient. Dr Rubi Moura Member UR committee
[2020-08-07] MEDS ORDERED: levoFLOXacin 750 MG TAB PO SCH (18:00)
== END 2020-08-06 14:45 | disposition home or self-care (01) | DRG 190 ==
LOC: ED 13:49 → 3W 20:32

== ENCOUNTER 2021-02-21 18:07 | Inpatient (IN) ==
[2021-02-21] MEDS ORDERED: RASPBERRY SYRUP 5 ML UDP PO STA (18:38)
[2021-02-21] MEDS ORDERED: VANCOMYCIN HCL 250 MG/5 ML SOLN PO STA (18:38)
--- NOTE | 2021-02-21 18:44 | Emergency Department Note ---
Impression & Plan Weakness, Hypomagnesemia, Hypocalcemia, C. difficile diarrhea ED Provider Note Provider: Jluis Gilbert MD DATE OF SERVICE: 02/21/2021 CHIEF COMPLAINT: Weakness, diarrhea HISTORY OF PRESENT ILLNESS: Patient is a 71-year-old gentleman past medical history including AAA, multiple myeloma currently on chemotherapeutics per family murders, CAD presenting here today reporting weakness and persistent diarrhea. Evidently had a dental procedure beginning of January and received an antibiotic. By records appears of his Augmentin. Developed significant diarrhea and diagnosed February 06 with C. difficile colitis. Treated attending a course of 125 mg oral vancomycin 4 times daily without improvement of symptoms proximally 5 days ago. states still significant diarrhea although did use a little bit of Imodium last couple of days. Patient states he thinks little bit yesterday but then today about every 1/2 hour has been having a bowel movement. States is mainly yellow and denies any bloody quality peer denies any nausea or vomiting. States he feels dizzy and bit lightheaded and somewhat faint at times. Denies syncope or falls. Denies chest pain or does report a little bit of shortness of breath. No fevers reported. Patient states he feels very thirsty. States he has been making some urine. Both the patient and states he is very weak today and they do not feel they can go home. REVIEW OF SYSTEMS: A total of 10 review of systems was obtained and negative except as stated above in the HPI. PAST MEDICAL HISTORY: As noted above MEDICATIONS: Reviewed home medications. SOCIAL HISTORY: Lives at home with PHYSICAL EXAM: GENERAL: alert and oriented on the stretcher with mask in place Head: normocephalic and atraumatic EYES: No injection, discharge or icterus. NECK: Trachea midline. LUNGS: Airway patent. No retractions. Breath sounds clear with good air entry bilaterally. HEART: Regular rate and rhythm. No chest wall tenderness ABDOMEN: Soft with some mild right-sided abdominal tenderness. No peritonitis. SKIN: Acyanotic, warm, dry, without rashes EXTREMITIES: Without swelling, tenderness or deformity except for some 1+ bilateral lower extremity edema. NEUROLOGICAL: No focal deficits. No aphasia. No facial droop or slurred speech. EK bpm sinus rhythm with PACs. No PVC. No acute ST segment elevation or depression. QTC 505. Compared to previous from August [id number], no longer first-degree AV block with a prolonged QTC today. CONTINUOUS CARDIAC MONITORING: was ordered and showed a heart rate of 90s to 100s bpm in normal sinus rhythm to sinus tachycardia with frequent PACs. Patient's laboratory studies and imaging reviewed. Differential includes Appendicitis, infections including C. difficile colitis, diverticulitis, UTI, obstruction, mesenteric ischemia, aortic pathology, inflammatory bowel disease, renal colic, PUD, pancreatitis, biliary pathology, hernia, volvulus, constipation, as well as other pathologies. IMPRESSION/MEDICAL DECISION MAKING: Patient initially noted to be hypotensive in triage but normotensive upon arrival in the room. Patient denies significant weakness dizziness some shortness of breath. Significant recent diarrhea and recent treatment seated without improvement of symptoms. Patient with some slight right-sided abdominal tenderness. No fever here. Lower suspicion for acute sepsis. Question possible failure of treatment for CVA. Discussed with pharmacy and given one- time dose of 200 mg oral vancomycin. 2 L of IV fluid ordered. CT scan of the abdomen pelvis will be obtained as well as blood work. EKG and troponin sent although lower suspicion for acute ACS. Chest x-ray completed without evidence of pneumonia or pneumothorax or significant pleural effusion per my review and the radiologist report. No focal neurological deficits low suspicion at this time for acute intracranial bleed or stroke. Question if the weakness and dizziness is secondary to losses related to the diarrhea. Question possible electrolyte abnormality. Laboratory studies returned showing white blood cell count of 16 and hemoglobin 11.3. Hemoglobin is improved compared to previous. ([facility] medical records show on February 11 white blood cell count of 12.3 and hemoglobin 9.7. Creatinine at that time 1.1 with sodium 138 potassium 3.8.) EKG with some prolonged QTC today. This is consistent unfortunately with significant hypocalcemia and hypomagnesemia today. Calcium of 6.8 and magnesium of 0.8. (Outside records February 11 so calcium 7.2 and magnesium of 1.2.) These electrolyte abnormalities likely explain some of his QT prolongation today. Sodium & potassium appear within normal limits and renal function does not appear that far off baseline. No evidence of transaminitis concerning for hepatitis and no evidence of elevated lipase that would be concerning for pancreatitis. TSH within normal limits. Stool sample still pending collection. CT scan per radiology On reassessment the patient was feeling a little bit better but still somewhat weak and still somewhat tachycardic. Has not had a bowel movement while here yet. Still awaiting stool sample collection thus. Reviewed laboratory findings and CT findings the patient and . They are aware and previously know of the aortic aneurysms. Discussed with him and his the inguinal hernia findings (again no concern at this time for strangulation or obstruction) as well as the lytic lesions on left ribs (? Relation to his multiple myeloma). The major CT finding is a pancolitis likely consistent with likely continued C. difficile colitis diarrhea. Discussed with the hospitalist further inpatient care given his significant symptoms and prolonged course. The patient and his were both in agreement with the plan to stay for further care. DIAGNOSIS: Diarrhea, weakness, dehydration, hypomagnesemia, hypocalcemia DISPOSITION: Hospitalist will evaluate Patient was agreeable with this plan. Past Med/Surg History Medical History Abdominal aortic aneurysm 5cm per 03/2020 CT- under surveillance by vascular Anemia Arthritis Bilateral pneumonia hospitalized for this 07/2020 [facility] Bladder cancer dx March 2020; hx TURBT 04/27/2020 [facility] Chronic steroid use COPD (chronic obstructive pulmonary disease) no inh Coronary artery disease BMS (2014) follows with Dr. Geiger GERD (gastroesophageal reflux disease) History of COVID-19 10/05/19 > tested at [facility] History of kidney stones History of myocardial infarction 2013 History of pancreatitis Hyperlipidemia Hypertension Lung nodule, multiple per , refusing work up at present time Multiple myeloma reason for dexamethasone, revlimid & velcade Surgical History History of cardiac catheterization 2013 [facility]- [place] - 1 stent History of cholecystectomy History of colonoscopy History of cystoscopy History of tooth extraction Family History Other Family history non-contributory Social History Smoking Status: Former smoker Tobacco Type: Cigarettes Second Hand Exposure: No; Hx Alcohol Use: No Hx Substance Use: Yes Last Used Substance: Just Prior to Arrival Last Used Substance Other:: yesterday Substance Use Type Other:: marijuana once weekly Preferred Language: Slovak Communication Ability: Effective Visual Impairment: No Limitations Actuary Required: No Beliefs That Will Affect Care: None Current Living Situation: Spouse Feels Safe at Home: Yes Assistive Devices: None Allergies Allergies Allergy/AdvReac Type Severity Reaction Status Date / Time shellfish derived Allergy Intermediate HIVES Verified 02/21/21 19:01 Home Meds Home Medications Medication Instructions Recorded Confirmed aspirin 81 mg PO QAM 09/29/19 02/21/21 atorvastatin 80 mg PO QPM 09/29/19 02/21/21 lisinopril 20 mg PO QAM 09/29/19 02/21/21 metoprolol tartrate 25 mg PO BID 09/29/19 02/21/21 nitroglycerin 0.4 mg SUBLINGUAL DIRECTED PRN 09/29/19 02/21/21 pantoprazole 40 mg PO QAM 09/29/19 02/21/21 Revlimid 10 mg PO DIRECTED 08/05/20 02/21/21 hydrocodone-acetaminophen 1 tab PO Q6H PRN 08/05/20 02/21/21 Velcade 3.4 mg SUBCUT UD 10/05/20 02/21/21 acyclovir 400 mg PO BID 10/05/20 02/21/21 calcium citrate-vitamin D3 1 tab PO QPM 10/05/20 02/21/21 dexamethasone 40 mg PO WK 10/05/20 02/21/21 loperamide 2 mg PO Q6H PRN 10/05/20 02/21/21 ondansetron HCl 8 mg PO Q8H PRN 10/05/20 02/21/21 potassium chloride [Klor-Con M20] 20 meq PO QPM 10/05/20 02/21/21 prochlorperazine maleate 10 mg PO Q6H PRN 10/05/20 02/21/21 Lactobac 40-Bifido 3-S.thermop 1 cap PO QAM 02/21/21 02/21/21 [Probiotic] furosemide 20 mg PO 3XWK 02/21/21 02/21/21 Results & Data (ED) Vital Signs Vital Signs - 24 hr 02/21/21 18:14 02/21/21 18:26 02/21/21 18:50 Temperature 36.6 C Temperature Source Temporal Artery Scan Pulse Rate 101 H Pulse Rate [Right Finger] 97 H Respiratory Rate 20 16 Respiratory Effort / Characteristics Non-Labored Spontaneous Respiratory Depth Normal Blood Pressure 82/60 L Blood Pressure [Right Arm] 119/82 Blood Pressure Mean 67 Blood Pressure Mean [Right Arm] 94 Blood Pressure Position [Right Arm] Sitting Pulse Oximetry 100 100 100 Oxygen Delivery Method Room Air Room Air Room Air Sepsis Recent Fever Within 48 Hours No Sepsis New/Unexplained Change in Mental Status No Sepsis Action Taken by Nursing No Action Required Laboratory Data Result diagrams: 02/21/21 Unknown 02/21/21 Unknown Lab Results 02/21/21 02/21/21 02/21/21 Range/Units 19:50 Unknown Unknown WBC 15.99 H (4.8-10.8) K/uL RBC 3.55 L (4.7-6.1) M/uL Hgb 11.3 L (14.0-18.0) g/dL Hct 34.8 L (42-52) % MCV 98.0 (80-100) fL MCH 31.8 (25-34) pg MCHC 32.5 (32-36) g/dL RDW Std Deviation 55.9 H (36.4-46.3) fL RDW Coeff of Andrew 15.5 H (11.5-14.5) % Plt Count 324 (130-400) K/uL MPV 10.9 H (7.4-10.4) fL Immature Gran % (Auto) 0.4 % Neut % (Auto) 82.2 % Lymph % (Auto) 6.4 % Burnet % (Auto) 7.8 % Eos % (Auto) 2.9 % Baso % (Auto) 0.3 % Neut # (Auto) 13.15 H (1.4-6.5) K/uL Lymph # (Auto) 1.02 L (1.2-3.4) K/uL Burnet # (Auto) 1.24 H (0.11-0.59) K/uL Eos # (Auto) 0.47 (0-0.5) K/uL Baso # (Auto) 0.04 (0-0.2) K/uL Immature Gran # (Auto) 0.07 H (0.00-0.02) K/uL Sodium 136 (136-145) mmol/L Potassium 3.6 (3.5-5.1) mmol/L Chloride 105 (98-107) mmol/L Carbon Dioxide 23 (21-32) mmol/L Anion Gap 8.0 (3-11) BUN 20 H (7-18) mg/dl Creatinine 1.19 (0.6-1.4) mg/dl Est Cr Clr Drug Dosing 59.6 ml/min Est GFR ( Amer) 71.8 ml/min Est GFR (Non-Af Amer) 62.0 ml/min BUN/Creatinine Ratio 16.9 (10-20) Glucose 99 (70-99) mg/dl Calcium 6.8 L (8.5-10.1) mg/dl Magnesium 0.8 L* (1.8-2.4) mg/dl Total Bilirubin 0.8 (0.2-1) mg/dl AST 12 L (15-37) U/L ALT 23 (12-78) U/L Alkaline Phosphatase 94 (45-117) U/L Troponin I < 0.015 (0-0.045) ng/ml Total Protein 6.7 (6.4-8.2) gm/dl Albumin 2.9 L (3.4-5.0) gm/dl Globulin 3.8 (2.5-4.0) gm/dl Albumin/Globulin Ratio 0.8 L (0.9-2) Lipase 74 (73-393) U/L TSH 1.530 (0.300-4.500) uIu/ml COVID-19 Eval Order Covid19 at [facility] Administered Medications Sodium Chloride (Nss 1000ml) 2,000 mls @ 999 mls/hr IV .Q2H1M EZEKIEL Stop: 02/21/21 20:45 Last Admin: 02/21/21 18:59 Dose: 999 mls/hr Documented by: [id number] Magnesium Sulfate/Dextrose (Magnesium Sulfate / D5w) 1 gm in 100 mls @ 200 mls/hr IV Q30M EZEKIEL Stop: 02/21/21 21:14 Last Admin: 02/21/21 20:19 Dose: 200 mls/hr Documented by: [id number] Discontinued Medications Calcium Gluconate () 1,000 mg in 60 mls @ 240 mls/hr IV NOW STA Stop: 02/21/21 20:15 Last Admin: 02/21/21 20:19 Dose: 240 mls/hr Documented by: [id number] Raspberry (Raspberry Syrup 5 Ml Udp) 5 ml PO ONE STA Stop: 02/21/21 18:39 Last Admin: 02/21/21 19:21 Dose: 5 ml Documented by: [id number] Vancomycin HCl (Vancomycin Hcl 250 Mg/5 Ml Soln) 250 mg PO ONE STA Stop: 02/21/21 18:39 Last Admin: 02/21/21 19:22 Dose: 250 mg Documented by: [id number] Imaging Data Radiologist's Impression: Abdomen/Pelvis CT 02/21/21 18:32 CT SCAN OF THE ABDOMEN AND PELVIS WITHOUT IV CONTRAST CLINICAL HISTORY: Diarrhea. Bladder cancer. Recent diagnosis of C. difficile colitis. COMPARISON STUDY: Abdominal CT dated 08/05/2020 and 04/16/2012. TECHNIQUE: CT scan of the abdomen and pelvis is performed from the lung bases to the proximal femora. Images are reviewed in the axial, sagittal, and coronal planes. IV contrast was not administered for this examination. Note that the examination was performed in significantly suboptimal fashion without IV contrast. A dose lowering technique was utilized adhering to the principles of ALARA. CT DOSE: 379.08 mGy.cm FINDINGS: Lung bases: The heart is enlarged and without pericardial effusion. The coronary arteries are densely calcified. Emphysematous change is seen at the lung bases. There is trace left pleural effusion with bibasilar scarring/atelectasis. A 4 mm left lower lobe pulmonary nodule on image #4 and a 7 mm pleural-based nodule in the right middle lobe on image #16 have been present dating back to 2011 and are of low suspicion. There is a small hiatal hernia. Liver: The unenhanced liver is normal in size, contour, and attenuation. There is no intrahepatic biliary ductal dilatation. A 1.5 cm cyst is noted in the left lobe. Gallbladder: Surgically absent noting clips in the gallbladder fossa. Spleen: Normal in size and attenuation. Pancreas: Unremarkable. Adrenal glands: Unremarkable. Kidneys: The unenhanced kidneys demonstrate cortical atrophy and are without hydronephrosis. There are no renal calculi identified. A 2 cm exophytic cyst arises from the left upper pole. Additional cortical hypodensities seen on the 08/05/2020 examination are not visualized without IV contrast. Abdominal vasculature: There is advanced atherosclerotic calcification of the abdominal aorta. There is diffuse diffuse aneurysmal dilatation of the mid to distal abdominal aorta. This measures up to 4.6 x 4.9 cm (AP x transverse), and extends approximately 9 cm in craniocaudal length. 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 Aneurysmal dilatation of the left common femoral artery measures up to 2.0 cm. Bowel: The colonic wall is mildly thickened and edematous and there is pericol onic infiltration. The appearance is consistent with a nonspecific pancolitis. The appendix is normal as visualized. Peritoneum: There is no intraperitoneal free air or abdominal ascites. Lymphadenopathy: None. Pelvic viscera: The prostate gland is mildly enlarged and heterogeneous noting median lobe hypertrophy. The bladder wall is thickened and trabeculated indicating chronic outlet obstruction. There are bilateral inguinal hernias. The right inguinal hernia contains a nonobstructed segment of bowel. Skeletal structures: The skeletal structures are heterogeneously osteopenic. There is moderate lumbosacral spondylosis. A mild inferior endplate compression deformity is noted in L4. Arthritic change is seen in the hips. Expansile lytic lesions are again seen within the left 9th and 10th ribs. IMPRESSION: 1. Findings are consistent with a nonspecific pancolitis. 2. Cardiomegaly and emphysema. 3. There is extensive aneurysmal dilatation of the abdominal aorta which measures up to 4.6 x 4.9 cm. Nonemergent vascular surgical follow-up is recommended. 4. 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 5. There are bilateral inguinal hernias. The right inguinal hernia contains a nonobstructed segment of bowel. 6. Trace left pleural effusion. 7. Lytic lesions are again seen within the left-sided ribs. Neoplasm remains the diagnosis of exclusion. 8. Additional findings as above. ACT 112: Positive. There are findings on this exam that require communication between the performing entity and the patient following Patient Test Result Information Act ([place] Act 112) guidelines. Electronically signed by: Barrington Knapp M.D. 02/21/2021 8:16 PM Chest X-Ray 02/21/21 18:41 SINGLE VIEW CHEST CLINICAL HISTORY: Generalized weakness. FINDINGS: 2 AP, portable, upright chest radiographs are compared to study dated 08/05/2020 and correlated with chest CT dated 04/25/2020. The heart is enlarged noting atherosclerotic calcification of the thoracic aorta. The pulmonary vasculature is noncongested. Advanced emphysema and chronic interstitial thickening is similar to previous. Scarring/atelectasis is noted at the lung bases. No airspace consolidation or large pleural effusion is identified. No pneumothorax is seen. The skeletal structures are osteopenic. There are healed right-sided rib fractures. IMPRESSION: Cardiomegaly and emphysema with no acute cardiopulmonary abnormality identified. ACT 112: Negative or not required by law. Electronically signed by: Barrington Knapp M.D. 02/21/2021 7:26 PM Discharge Plan Visit Data Chief Complaint: Diarrhea Stated Complaint: DIARRHEA,ABD PAIN ED Provider: Jluis Gilbert Discharge Problem: Weakness, Hypomagnesemia, Hypocalcemia, C. difficile diarrhea Patient Disposition: Being Evaluated by Hospitalist Forms Stand Alone Forms: [facility] Prescriptions Prescriptions: No Action atorvastatin 80 mg tablet 80 mg PO QPM RF: 0 lisinopril 20 mg tablet 20 mg PO QAM RF: 0 aspirin 81 mg tablet,delayed release (DR/EC) 81 mg PO QAM RF: 0 pantoprazole 40 mg tablet,delayed release (DR/EC) 40 mg PO QAM RF: 0 nitroglycerin 0.4 mg tablet, sublingual 0.4 mg sublingual DIRECTED PRN (Reason: Chest Pain) RF: 0 metoprolol tartrate 25 mg tablet 25 mg PO BID RF: 0 hydrocodone-acetaminophen 10-325 mg tablet 1 tab PO Q6H PRN (Reason: Pain, Moderate) RF: 0 Revlimid 10 mg capsule 10 mg PO DIRECTED RF: 0 ondansetron HCl 8 mg Tablet 8 mg PO Q8H PRN (Reason: Nausea) RF: 0 loperamide 2 mg Tablet 2 mg PO Q6H PRN (Reason: Diarrhea) RF: 0 prochlorperazine maleate 10 mg Tablet 10 mg PO Q6H PRN (Reason: Nausea) RF: 0 potassium chloride [Klor-Con M20] 20 mEq Tablet,Er Particles/Crystals 20 meq PO QPM RF: 0 dexamethasone 4 mg Tablet 40 mg PO WK RF: 0 acyclovir 200 mg Capsule 400 mg PO BID RF: 0 calcium citrate-vitamin D3 250 mg-5 mcg (200 unit) Tablet 1 tab PO QPM RF: 0 Velcade 3.5 mg Recon Soln 3.4 mg subcut UD RF: 0 furosemide 20 mg tablet 20 mg PO 3XWK RF: 0 Probiotic 100 billion cell Capsule 1 cap PO QAM RF: 0 Referrals Referrals: Savanah Geiger DO [Primary Care Provider] -
[2021-02-21] MEDS ORDERED: SODIUM CHLORIDE 0.9% 1000ML 2,000 ML IV SCH (18:45)
[2021-02-21 19:03] LABS: Hematocrit (blood only) 34.8 % (42-52); Hemoglobin 11.3 g/dL (14.0-18.0); Mean Corpuscular Hemoglobin 31.8 pg (25-34); Mean Corpuscular Hgb Conc 32.5 g/dL (32-36); Mean Platelet Volume 10.9 fL (7.4-10.4); Platelet Count 324 K/uL (130-400); RDW Coefficient of Variation 15.5 % (11.5-14.5); RDW Standard Deviation 55.9 fL (36.4-46.3); Red Blood Count 3.55 M/uL (4.7-6.1); White Blood Count 15.99 K/uL (4.8-10.8)
[2021-02-21 19:25] LABS: Basophils # (auto) 0.04 K/uL (0-0.2); Basophils % (auto) 0.3 %; Eosinophils # (auto) 0.47 K/uL (0-0.5); Eosinophils % (auto) 2.9 %; Immature Granulocytes # (auto) 0.07 K/uL (0.00-0.02); Immature Granulocytes % (auto) 0.4 %; Lymphocytes # (auto) 1.02 K/uL (1.2-3.4); Lymphocytes % (auto) 6.4 %; Monocytes # (auto) 1.24 K/uL (0.11-0.59); Monocytes % (auto) 7.8 %; Neutrophils # (auto) 13.15 K/uL (1.4-6.5); Neutrophils % (auto) 82.2 %
--- NOTE | 2021-02-21 19:28 | XRay Report ---
SINGLE VIEW CHEST CLINICAL HISTORY: Generalized weakness. FINDINGS: 2 AP, portable, upright chest radiographs are compared to study dated 08/05/2020 and correl ated with chest CT dated 04/25/2020. The heart is enlarged noting atherosclerotic calcification of the thoracic aorta. The pulmonary vasculature is noncongested. Advanced emphysema and chronic interstitia l thickening is similar to previous. Scarring/atelectasis is noted at the lung bases. No airspace con solidation or large pleural effusion is identified. No pneumothorax is seen. The skeletal structures are osteopenic. There are healed right-sided rib fractures. IMPRESSION: Cardiomegaly and emphysema with no acute cardiopulmonary abnormality identified. ACT 112: Negative or not required by law. Electronically signed by: Barrington Knapp M.D. 02/21/2021 7:26 PM
[2021-02-21 20:00] LABS: Alanine Aminotransferase 23 U/L (12-78); Albumin Globulin Ratio 0.8 (0.9-2); Albumin Level 2.9 gm/dl (3.4-5.0); Alkaline Phosphatase 94 U/L (45-117); Aspartate Aminotransferase 12 U/L (15-37); BUN Creatinine Ratio 16.9 (10-20); Bilirubin,Total 0.8 mg/dl (0.2-1); Blood Urea Nitrogen 20 mg/dl (7-18); Calcium 6.8 mg/dl (8.5-10.1); Carbon Dioxide 23 mmol/L (21-32); Chloride 105 mmol/L (98-107); Creatinine Clr Calc Pharmacy 59.6 ml/min; Est GFR (African American) 71.8 ml/min; Globulin 3.8 gm/dl (2.5-4.0); Glucose 99 mg/dl (70-99); Lipase 74 U/L (73-393); Magnesium 0.8 mg/dl (1.8-2.4); Potassium 3.6 mmol/L (3.5-5.1); Sodium 136 mmol/L (136-145); Total Protein 6.7 gm/dl (6.4-8.2); Troponin I < 0.015 ng/ml (0-0.045)
[2021-02-21] MEDS ORDERED: CALCIUM GLUCONATE 1,000 MG/60 ML BAG IV STA (20:01)
--- NOTE | 2021-02-21 20:17 | CT Scan Report ---
CT SCAN OF THE ABDOMEN AND PELVIS WITHOUT IV CONTRAST CLINICAL HISTORY: Diarrhea. Bladder cancer. Recent diagnosis of C. difficile colitis. COMPARISON STUDY: Abdominal CT dated 08/05/2020 and 04/16/2012. TECHNIQUE: CT scan of the abdomen and pelvis is performed from the lung bases to the proximal femora. Images are reviewed in the axial, sagittal, and coronal planes. IV contrast was not administered for this examination. Note that the examination was performed in significantly suboptimal fashion withou t IV contrast. A dose lowering technique was utilized adhering to the principles of ALARA. CT DOSE: 379.08 mGy.cm FINDINGS: Lung bases: The heart is enlarged and without pericardial effusion. The coronary arteries are densely calcified. Emphysematous change is seen at the lung bases. There is trace left pleural effusion with bibasilar scarring/atelectasis. A 4 mm left lower lobe pulmonary nodule on image #4 and a 7 mm pleur al-based nodule in the right middle lobe on image #16 have been present dating back to 2011 and are o f low suspicion. There is a small hiatal hernia. Liver: The unenhanced liver is normal in size, contour, and attenuation. There is no intrahepatic michela iary ductal dilatation. A 1.5 cm cyst is noted in the left lobe. Gallbladder: Surgically absent noting clips in the gallbladder fossa. Spleen: Normal in size and attenuation. Pancreas: Unremarkable. Adrenal glands: Unremarkable. Kidneys: The unenhanced kidneys demonstrate cortical atrophy and are without hydronephrosis. There ar e no renal calculi identified. A 2 cm exophytic cyst arises from the left upper pole. Additional ginger ical hypodensities seen on the 08/05/2020 examination are not visualized without IV contrast. Abdominal vasculature: There is advanced atherosclerotic calcification of the abdominal aorta. There is diffuse diffuse aneurysmal dilatation of the mid to distal abdominal aorta. This measures up to 4. 6 x 4.9 cm (AP x transverse), and extends approximately 9 cm in craniocaudal length. There is aneurys mal dilatation of the common iliac arteries which measure up to 2.7 cm on the left and 3.0 cm on the right. 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 Aneurysmal dilatation of the left common femoral artery measures up to 2.0 cm. Bowel: The colonic wall is mildly thickened and edematous and there is pericolonic infiltration. The appearance is consistent with a nonspecific pancolitis. The appendix is normal as visualized. Peritoneum: There is no intraperitoneal free air or abdominal ascites. Lymphadenopathy: None. Pelvic viscera: The prostate gland is mildly enlarged and heterogeneous noting median lobe hypertroph y. The bladder wall is thickened and trabeculated indicating chronic outlet obstruction. There are bi lateral inguinal hernias. The right inguinal hernia contains a nonobstructed segment of bowel. Skeletal structures: The skeletal structures are heterogeneously osteopenic. There is moderate lumbos acral spondylosis. A mild inferior endplate compression deformity is noted in L4. Arthritic change is seen in the hips. Expansile lytic lesions are again seen within the left 9th and 10th ribs. IMPRESSION: 1. Findings are consistent with a nonspecific pancolitis. 2. Cardiomegaly and emphysema. 3. There is extensive aneurysmal dilatation of the abdominal aorta which measures up to 4.6 x 4.9 cm. Nonemergent vascular surgical follow-up is recommended. 4. 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 5. There are bilateral inguinal hernias. The right inguinal hernia contains a nonobstructed segment o f bowel. 6. Trace left pleural effusion. 7. Lytic lesions are again seen within the left-sided ribs. Neoplasm remains the diagnosis of exclusi on. 8. Additional findings as above. ACT 112: Positive. There are findings on this exam that require communication between the performing entity and the patient following Patient Test Result Information Act ([place] Act 112) guidelines. Electronically signed by: Barrington Knapp M.D. 02/21/2021 8:16 PM
[2021-02-21] MEDS: MAGNESIUM SULFATE / D5W 1 GM/100 ML BAG IV SCH ×2 (20:19→20:53)
[2021-02-21] MEDS ORDERED: LACTATED RINGER'S 1,000 ML IV ONE (20:33)
[2021-02-21] MEDS ORDERED: MAGNESIUM SULFATE / D5W 1 GM/100 ML BAG IV STA (20:33)
[2021-02-21] MEDS ORDERED: ACETAMINOPHEN 325 MG TAB PO PRN (23:06)
[2021-02-21] MEDS ORDERED: HYDROcodone/ACETAMINOPHEN 10/325 TAB PO PRN (23:06)
[2021-02-21] MEDS ORDERED: NITROGLYCERIN SL 0.4 MG/TAB TAB SL PRN (23:06)
--- NOTE | 2021-02-21 23:23 | History and Physical Report ---
DATE OF ADMISSION: 02/21/2021 CHIEF COMPLAINT: Diarrhea, history of C. diff. 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 During the first week of January, he was treated with antibiotics for his dental infection, then after that he developed diarrhea and was C. diff positive and treated with 10 days of p.o. vancomycin. He stopped vancomycin 5 days ago, but still has significant diarrhea. One day he is fine and next day he was going to bathroom every half an hour and feeling very weak, so he came to the ER today. His labs showed white count of 15, magnesium of 0.8. CAT scan showing nonspecific pancolitis. The patient complains of abdominal discomfort, had 1 episode of nausea/vomiting. Denies any chest pain or shortness of breath. No cough, no fever, no chills, no headache, no blurred vision, no earache, runny nose from his allergies. No sore throat. He had his 2 COVID shots. Currently resting comfortable and hemodynamically stable. ALLERGIES: SHELLFISH DERIVED. PAST MEDICAL HISTORY: As mentioned above. PAST SURGICAL HISTORY: Bone marrow biopsy, colonoscopy, EGD, laparoscopic cholecystectomy and cardiac cath with stent placement. MEDICATIONS: The patient is on acyclovir 400 mg p.o. b.i.d., aspirin 81 mg p.o. a.m., atorvastatin 80 mg p.o. a.m., calcium plus vitamin D 1 tablet p.o. a.m., Lasix 20 mg 3 times a week, hydrocodone/acetaminophen 1 tablet p.o. q.6 hours p.r.n., lactobacillus 1 capsule p.o. a.m., lisinopril 20 mg p.o. daily, loperamide 2 mg p.o. q.6 hours p.r.n., metoprolol tartrate 25 mg p.o. b.i.d., nitroglycerin 0.4 mg sublingual p.r.n., Zofran 8 mg p.o. q.8 hours p.r.n., Protonix 40 mg p.o. a.m., potassium chloride 20 mEq p.o. p.m., prochlorperazine 10 mg p.o. q.6 hours p.r.n., Revlimid as directed, Velcade as directed. FAMILY HISTORY: No family history on file. SOCIAL HISTORY: . Former smoker, quit in 03/2020, smoked on an average 1 pack a day for 40 years. History of alcoholism in the past but sober for many years now. Smokes marijuana. REVIEW OF SYMPTOMS: As per HPI. Rest of the review of systems negative. PHYSICAL EXAMINATION: GENERAL: The patient is of moderate build, not in acute distress. VITAL SIGNS: Temperature 36.6, pulse 90, respiratory rate 20, blood pressure 108/64, oxygen 94% on room air. HEENT: Pupils equal, round, reactive to light. Oral mucosa moist. NECK: No JVD. No neck masses. CARDIOVASCULAR: S1, S2 heard, regular rate and rhythm, no murmur, no gallop. RESPIRATORY SYSTEM: Normal AP diameter. No accessory muscle use. No wheezing, no crackles. ABDOMEN: Soft, bowel sounds present. Mild diffuse tenderness. Mild guarding. No rigidity. No distention. CENTRAL NERVOUS SYSTEM: Cranial nerves II-XII grossly intact, nonfocal. EXTREMITIES: No edema, no erythema. LABORATORY DATA: WBC 15.9, hemoglobin 11.3, hematocrit 34.8, platelets 324. Sodium 136, potassium 3.6, chloride 105, bicarbonate 23, BUN 20, creatinine 1.1, serum glucose 99, calcium 6.8, magnesium 0.8, total bilirubin 0.8, AST 12, ALT 23, alkaline phosphatase 94. Troponin I less than 0.015. Albumin 2.9, globulin 3.8, lipase 74. TSH 1.5. SARS-CoV-2 PCR negative. IMAGING: Chest x-ray, no acute findings. CT abdomen and pelvis, nonspecific pancolitis. Extensive aneurysmal dilatation of the abdominal aorta, which measures 4.6 x 4.9 cm. Nonemergent vascular surgery followup is recommended. Also aneurysmal dilatation of common iliac artery, left iliac artery, and left common femoral artery. Bilateral inguinal hernias, right inguinal hernia contains a nonobstructive segment of bowel, trace left pleural effusion. Lytic lesions again seen within the left side of ribs, neoplasm remains in the diagnosis of exclusion. EKG: Sinus tachy with PACs at a rate of 102, prolonged QTC at 508, nonspecific T wave abnormalities. ASSESSMENT AND PLAN: A 71-year-old male presents with ongoing diarrhea and Clostridium difficile colitis. 1. Ongoing diarrhea and Clostridium difficile colitis. Finished a course of vancomycin, but still diarrhea not resolved. We will start him on high dose at 250 mg p.o. vancomycin q.6 hours, IV fluids, clear liquid diet. Gastrointestinal consult. The patient may need a longer course because of his immunosuppression with medication for his multiple myeloma. 2. History of multiple myeloma. The patient is on Revlimid. We will need to discuss with hematology/oncology if we can hold it for now. 3. History of coronary artery disease, status post stent, on beta rené, aspirin, and statin. 4. Hyperlipidemia, on statin. 5. Hypertension, on lisinopril and metoprolol tartrate with holding parameters. We will hold the diuretics for now. 6. History of chronic obstructive pulmonary disease. Currently stable. 7. Abdominal aortic aneurysm. Needs followup with vascular surgery. 8. Gastroesophageal reflux disease, on Protonix. 9. Prolonged QTc and hypomagnesemia. We will replace and follow the repeat laboratories. Prolonged QTc probably from the ongoing illness and hypomagnesemia. Avoid QT prolonging drugs. We will follow the repeat laboratories. 10. Deep venous thrombosis prophylaxis, sequential compression devices. DISPOSITION: Monitor in the med-tele. Expect to discharge home and follow with family doctor. Social service to help with discharge planning. Level 1 full code. MTDD
[2021-02-22 00:09] LABS: Cdiff Antigen Positive; Cdiff Toxin A+B Positive Cdiff Toxin (Negative)
[2021-02-22] MEDS ORDERED: PROMETHAZINE HCL 12.5 MG in SODIUM CHLORIDE 0.9% 50 ML IV PRN (00:29)
[2021-02-22] MEDS: D5W AND 1/2NSS 1,000 ML IV SCH ×3 (00:49→16:02)
[2021-02-22] MEDS: METOPROLOL TARTRATE 25 MG TAB PO SCH ×3 (01:21→20:40)
[2021-02-22] MEDS: RASPBERRY SYRUP 5 ML UDP PO SCH ×4 (01:22→18:17)
[2021-02-22] MEDS: VANCOMYCIN HCL 250 MG/5 ML SOLN PO SCH ×4 (01:22→18:17)
[2021-02-22 04:25] LABS: Appearance Urine Clear (Clear); Bilirubin Urine Negative (Negative); Blood Urine Negative (Negative); Color Urine Yellow; Glucose Urine UA Negative (Negative); Ketones Urine Negative (Negative); Leukocyte Esterase Urine Negative (Negative); Nitrite Urine Negative (Negative); Protein Urine Negative (Negative); Specific Gravity Urine 1.018 (1.000-1.030); Urobilinogen Urine Negative (Negative)
[2021-02-22 05:47] LABS: Hematocrit (blood only) 27.3 % (42-52); Mean Corpuscular Hemoglobin 32.1 pg (25-34); Mean Corpuscular Volume 97.5 fL (80-100); Mean Platelet Volume 10.2 fL (7.4-10.4); Platelet Count 258 K/uL (130-400); RDW Coefficient of Variation 15.5 % (11.5-14.5); RDW Standard Deviation 55.5 fL (36.4-46.3); White Blood Count 11.73 K/uL (4.8-10.8)
[2021-02-22 06:22] LABS: BUN Creatinine Ratio 16.7 (10-20); Calcium 6.4 mg/dl (8.5-10.1); Est GFR (African American) 93.1 ml/min; Est GFR (Non-African American) 80.3 ml/min; Magnesium 1.3 mg/dl (1.8-2.4); Phosphorus 3.3 mg/dl (2.5-4.9); Potassium 3.4 mmol/L (3.5-5.1)
[2021-02-22 06:30] LABS: Acanthocytes 1+; Basophils # (auto) 0.02 K/uL (0-0.2); Basophils % (auto) 0.2 %; Eosinophils # (auto) 0.13 K/uL (0-0.5); Eosinophils % (auto) 1.1 %; Immature Granulocytes # (auto) 0.04 K/uL (0.00-0.02); Immature Granulocytes % (auto) 0.3 %; Lymphocytes # (auto) 0.59 K/uL (1.2-3.4); Monocytes # (auto) 0.75 K/uL (0.11-0.59); Monocytes % (auto) 6.4 %; Tear Drop Cells 1+
[2021-02-22] MEDS: PANTOprazole 40 MG TAB PO SCH (08:57)
[2021-02-22] MEDS: ADVANCED PROBIOTIC 1250 MG CAPSULE PO SCH (08:57)
[2021-02-22] MEDS: lisinopril 20 MG TAB PO SCH (08:58)
[2021-02-22] MEDS: ACYCLOVIR 200 MG CAP PO SCH ×2 (08:58→20:42)
[2021-02-22] MEDS: ASPIRIN 81 MG ECTAB PO SCH (08:58)
--- NOTE | 2021-02-22 10:07 | Electrocardiogram Report ---
Test Reason : Blood Pressure : / mmHG Vent. Rate : 102 BPM Atrial Rate : 102 BPM P-R Int : 136 ms QRS Dur : 090 ms QT Int : 390 ms P-R-T Axes : 000 030 070 degrees QTc Int : 508 ms Sinus tachycardia with Premature atrial complexes Nonspecific ST and T wave abnormality Abnormal ECG When compared with ECG of 06-AUG-2020 06:27, Premature atrial complexes are now Present SC interval has decreased Nonspecific T wave abnormality now evident in Lateral leads QT has lengthened Confirmed by Tk Wilson ([id number]) on 02/22/2021 10:07:02 AM Referred By: REFERRED SELF Confirmed By:Tk Wilson
--- NOTE | 2021-02-22 10:08 | Electrocardiogram Report ---
Test Reason : Blood Pressure : / mmHG Vent. Rate : 098 BPM Atrial Rate : 098 BPM P-R Int : 128 ms QRS Dur : 090 ms QT Int : 396 ms P-R-T Axes : 000 028 062 degrees QTc Int : 505 ms Sinus rhythm with Premature atrial complexes Prolonged QT Abnormal ECG When compared with ECG of 21-FEB-2021 19:16, (unconfirmed) No significant change was found Confirmed by Tk Wilson ([id number]) on 02/22/2021 10:07:23 AM Referred By: REFERRED SELF Confirmed By:Tk Wilson
--- NOTE | 2021-02-22 10:18 | Electrocardiogram Report ---
Test Reason : Blood Pressure : / mmHG Vent. Rate : 084 BPM Atrial Rate : 084 BPM P-R Int : 166 ms QRS Dur : 100 ms QT Int : 430 ms P-R-T Axes : 054 009 033 degrees QTc Int : 508 ms Sinus rhythm with occasional Premature ventricular complexes and Premature atrial complexes Minimal voltage criteria for LVH, may be normal variant Possible Inferior infarct , age undetermined Prolonged QT Abnormal ECG When compared with ECG of 21-FEB-2021 19:16, (unconfirmed) Premature ventricular complexes are now Present Possible Inferior infarct , age undetermined is now Present Confirmed by Tk Wilson ([id number]) on 02/22/2021 10:17:29 AM Referred By: REFERRED SELF Confirmed By:Tk Wilson
--- NOTE | 2021-02-22 11:48 | Hospitalist Progress Note ---
Date of Service February 22, 2021 Assessment & Plan (1) C. difficile diarrhea: Presented with ongoing diarrhea abdominal discomfort: CT abdomen pelvis shows pancolitis, Due to C. difficile colitis: Patient continued with p.o. vancomycin, Appreciate input from GI, pt completed 10 days of PO Vancomycin from 02/07 to 02/17 , diarrhea had improved for 1 days after completion of Po Vanco then go worse , leading to hosptial admission on Vancomycin 250 mg Q 6hrs , will need taper dose Patient will continue to take probiotics added cholestyramine for intractable diarrhea. Diet advanced to regular, DC IV fluids for now Hypokalemia: Due to GI loss: Replaced C. difficile colitis: Due to recent antibiotic treatment for dental procedure Treatment outlined as above History of multiple myeloma: hold Revlimid for 1 more week Can resume treatment after completion of p.o. vancomycin Disposition: Possible discharge home in next 24 to 48 hours if patient remains clinically stable. updated over phone Admission and Anticipated Discharge Date Admission Date: February 21, 2021 Subjective Follow-up visit for C. difficile colitis/diarrhea. continues to have diarrhea > 4 episodes today no abdominal pain , no nausea no fever or chills diet advanced to solid , toleraing Review of Systems Review of Systems: All systems reviewed & are unremarkable except as noted in Subjective Physical Exam Physical Exam: Physical exam: General: No acute distress, alert awake oriented x3 HEENT: PERRLA, EOMI, Heart: Regular S1-S2, no carotid bruit, no JVD, no lower extremity edema Lungs: Clear to auscultate, no wheeze or rales Abdomen: Soft nontender, no organomegaly Extremity: No cyanosis, no deformity, normal strength 5 out of 5 with upper and lower Neuro: No focal neurological deficit normal speech, normal visual field, Motor strength : normal both upper and lower extremity, sensation intact Psych: Alert awake oriented x3, normal affect Results & Data Results & Data ([facility]) Vital Signs (Past 12 Hours) Vital Signs Temp Pulse Pulse Resp BP BP Pulse Ox 02/22/21 07:42 36.8 C 79 16 124/77 97 02/22/21 03:47 36.7 C 89 18 116/72 97 02/22/21 01:17 97 H 02/22/21 01:01 37.0 C 106 H 22 125/74 99
--- NOTE | 2021-02-22 15:33 | Gastrointestinal Consultation ---
Date of Consultation February 22, 2021 Assessment & Plan (1) Weakness: (2) C. difficile diarrhea: 71 yo male with C diff and resultant volume contraction and weakness after receiving antibiotics for a tooth infection. Pn;y received 5 days of oral Vanco before presenting ot the ER. No prior history of C diff. Would treat with a full course of 10-14 days of oral Vanco. OK to use questran as an adjunct to slow the diarrhea. Probiotics after completes course of vanco. Discussed with primary service. (3) Hypomagnesemia: (4) Hypokalemia: History of Present Illness Reason for Consultation: C diff Attending Physician: Lizet Collier MD History of Present Illness 71 yo male with a h/o COPD, AAA, CAD, HTN multiple myeloma on immunosuppression, and anemia who had a tooth infection which was treated with antibiotics. He subsequently developed diarrhea and was diagnosed with C diff. He was given a 10 day course of oral Vanco but stopped after 5 days. He was admitted with on- going significant diarrhea. CT showed pancolitis. Hemocncentrated on arrival. Mild electrolye derangements noted. Currently on oral Vanco 250 mg every 6 hours. Allergies Allergy/AdvReac Type Severity Reaction Status Date / Time shellfish derived Allergy Intermediate HIVES Verified 02/21/21 19:01 Home Medications Medication Instructions Recorded Confirmed Type aspirin 81 mg PO QAM 09/29/19 02/21/21 History atorvastatin 80 mg PO QPM 09/29/19 02/21/21 History lisinopril 20 mg PO QAM 09/29/19 02/21/21 History metoprolol tartrate 25 mg PO BID 09/29/19 02/21/21 History nitroglycerin 0.4 mg SUBLINGUAL DIRECTED PRN 09/29/19 02/21/21 History pantoprazole 40 mg PO QAM 09/29/19 02/21/21 History Revlimid 10 mg PO DIRECTED 08/05/20 02/21/21 History hydrocodone-acetaminophen 1 tab PO Q6H PRN 08/05/20 02/21/21 History Velcade 3.4 mg SUBCUT UD 10/05/20 02/21/21 History acyclovir 400 mg PO BID 10/05/20 02/21/21 History calcium citrate-vitamin D3 1 tab PO QPM 10/05/20 02/21/21 History dexamethasone 40 mg PO WK 10/05/20 02/21/21 History loperamide 2 mg PO Q6H PRN 10/05/20 02/21/21 History ondansetron HCl 8 mg PO Q8H PRN 10/05/20 02/21/21 History potassium chloride [Klor-Con M20] 20 meq PO QPM 10/05/20 02/21/21 History prochlorperazine maleate 10 mg PO Q6H PRN 10/05/20 02/21/21 History Lactobac 40-Bifido 3-S.thermop 1 cap PO QAM 02/21/21 02/21/21 History [Probiotic] furosemide 20 mg PO 3XWK 02/21/21 02/21/21 History Patient History Medical History Abdominal aortic aneurysm 5cm per 03/2020 CT- under surveillance by vascular Anemia Arthritis Bilateral pneumonia hospitalized for this 07/2020 [facility] Bladder cancer dx March 2020; hx TURBT 04/27/2020 [facility] Chronic steroid use COPD (chronic obstructive pulmonary disease) no inh Coronary artery disease BMS (2014) follows with Dr. Geiger GERD (gastroesophageal reflux disease) History of COVID-19 10/05/19 > tested at [facility] History of kidney stones History of myocardial infarction 2013 History of pancreatitis Hyperlipidemia Hypertension Lung nodule, multiple per , refusing work up at present time Multiple myeloma reason for dexamethasone, revlimid & velcade Surgical History History of cardiac catheterization 2013 [facility]- [place] - 1 stent History of cholecystectomy History of colonoscopy History of cystoscopy History of tooth extraction Family History Other Family history non-contributory Social History Smoking Status: Former smoker Tobacco Type: Cigarettes Smoking End Date: 1 year ago; Second Hand Exposure: No; Do You Dip or Chew Tobacco: No; Hx Alcohol Use: No Hx Substance Use: Yes Last Used Substance: Just Prior to Arrival Last Used Substance Other:: yesterday Substance Use Type Other:: marijuana once weekly Preferred Language: Turkish Communication Ability: Effective Visual Impairment: No Limitations Manager Support Required: No Beliefs That Will Affect Care: None marital status: Current Living Situation: Spouse Other Information That Helps Us Care for You: No Feels Safe at Home: Yes Safety Concerns: Feels Safe At This Time Assistive Devices: None Review of Systems Review of Systems: All systems reviewed & are unremarkable except as noted in HPI & below Physical Exam Constitutional: WD/WN, vitals as above Respiratory: normal respiratory effort, lungs clear to auscultation Cardiovascular: RRR, no murmur, no edema Gastrointestinal (Abdomen): normal bowel sounds, soft, nontender, no hepatosplenomegaly Results & Data ([facility]) Vital Signs (Past 12 Hours) Vital Signs Temp Pulse Pulse Resp BP BP Pulse Ox 02/22/21 15:26 36.5 C 66 16 104/65 95 02/22/21 15:05 83 02/22/21 11:47 36.3 C L 64 16 109/64 94 02/22/21 08:00 80 02/22/21 07:42 36.8 C 79 16 124/77 97 02/22/21 03:47 36.7 C 89 18 116/72 97
[2021-02-22] MEDS: POTASSIUM CHLORIDE CRTAB 20 MEQ TABCR PO SCH (18:17)
[2021-02-22] MEDS: CHOLESTYRAMINE LIGHT 4 GM PKT PO SCH (18:18)
[2021-02-22] MEDS: ATORVASTATIN 40 MG TAB PO SCH (20:43)
[2021-02-23] MEDS: RASPBERRY SYRUP 5 ML UDP PO SCH ×4 (00:01→18:06)
[2021-02-23] MEDS: VANCOMYCIN HCL 250 MG/5 ML SOLN PO SCH ×4 (00:01→18:08)
[2021-02-23 07:19] LABS: Hematocrit (blood only) 26.1 % (42-52); Hemoglobin 8.7 g/dL (14.0-18.0); Mean Corpuscular Hemoglobin 31.5 pg (25-34); Mean Corpuscular Hgb Conc 33.3 g/dL (32-36); Mean Corpuscular Volume 94.6 fL (80-100); Mean Platelet Volume 9.7 fL (7.4-10.4); Platelet Count 235 K/uL (130-400); RDW Coefficient of Variation 15.3 % (11.5-14.5); Red Blood Count 2.76 M/uL (4.7-6.1); White Blood Count 8.15 K/uL (4.8-10.8)
[2021-02-23 07:56] LABS: Calcium 6.1 mg/dl (8.5-10.1); Est GFR (African American) 100.6 ml/min; Est GFR (Non-African American) 86.8 ml/min; Magnesium 0.9 mg/dl (1.8-2.4)
[2021-02-23] MEDS ORDERED: POTASSIUM CHLORIDE CRTAB 20 MEQ TABCR PO STA (08:25)
[2021-02-23] MEDS: CHOLESTYRAMINE LIGHT 4 GM PKT PO SCH ×2 (09:00→17:12)
[2021-02-23] MEDS: MAGNESIUM SULFATE / D5W 1 GM/100 ML BAG IV SCH ×4 (09:09→18:05)
[2021-02-23] MEDS: CALCIUM 600MG + VIT D 400 IU TAB PO SCH ×2 (09:13→20:22)
[2021-02-23] MEDS: ASPIRIN 81 MG ECTAB PO SCH (09:13)
[2021-02-23] MEDS: ACYCLOVIR 200 MG CAP PO SCH ×2 (09:13→20:21)
[2021-02-23] MEDS: lisinopril 20 MG TAB PO SCH (09:14)
[2021-02-23] MEDS: METOPROLOL TARTRATE 25 MG TAB PO SCH ×2 (09:14→20:22)
[2021-02-23] MEDS: PANTOprazole 40 MG TAB PO SCH (09:14)
[2021-02-23] MEDS: ADVANCED PROBIOTIC 1250 MG CAPSULE PO SCH (09:14)
--- NOTE | 2021-02-23 14:17 | Communication Note ---
Date of Service: February 23, 2021 discussed with GI , : With the colitis on ct and toxin positive will need to be tapering course or vancomycin. Vancomycin 125 mg QID for 2 weeks -then BID for 7 days -then daily for 7 days -then every other day for 4 weeks reached out to his Heme Onc Dr De La Cruz , for recommendation revlimid . will cont with Cholestyramine 1-1/2 pk daily PRN for loose stool Low Mg /low K : due to ongoing GI loss replaced , repeat labs Lizet Collier
--- NOTE | 2021-02-23 17:06 | Hospitalist Progress Note ---
Date of Service February 23, 2021 Assessment & Plan (1) C. difficile diarrhea: Presented with ongoing diarrhea abdominal discomfort: CT abdomen pelvis shows pancolitis, Due to C. difficile colitis: Patient continued with p.o. vancomycin, Appreciate input from GI, pt completed 10 days of PO Vancomycin from 02/07 to 02/17 , continued to have multiple loose bowel movements daily after completion of Po Vanco on Vancomycin 250 mg Q 6hrs , will 6 weeks of prolong taper dose Patient will continue to take probiotics added cholestyramine for intractable diarrhea-mentions imprvement of dirreha ,and abdominal bloating Diet advanced to low fiber , tolerating well Hypokalemia:LOW MG Due to GI loss: Replaced C. difficile colitis: Due to recent antibiotic treatment for dental procedure Treatment outlined as above History of multiple myeloma: hold Revlimid D/w Pt's Heme Onc Dr Love regarding Revlimid tx recommends to hold it during vancomycin taper Can resume treatment after completion of p.o. vancomycin Disposition: Possible discharge home in next 24 to 48 hours if patient remains clinically stable. updated over phone Admission and Anticipated Discharge Date Admission Date: February 21, 2021 Subjective Follow-up visit for C. difficile colitis/diarrhea. had 2 episodes of bowel movements today abdominal bloating , discomfort has improved had an uneventful night diet advanced to solid , toleraing well wants to be discharged home tomorrow Review of Systems Review of Systems: All systems reviewed & are unremarkable except as noted in Subjective Physical Exam Physical Exam: Physical exam: General: No acute distress, alert awake oriented x3 HEENT: PERRLA, EOMI, Heart: Regular S1-S2, no carotid bruit, no JVD, no lower extremity edema Lungs: Clear to auscultate, no wheeze or rales Abdomen: Soft nontender, no organomegaly Extremity: No cyanosis, no deformity, normal strength 5 out of 5 with upper and lower Neuro: No focal neurological deficit normal speech, normal visual field, Motor strength : normal both upper and lower extremity, sensation intact Psych: Alert awake oriented x3, normal affect Results & Data Results & Data ([facility]) Vital Signs (Past 12 Hours) Vital Signs Temp Pulse Pulse Resp BP Pulse Ox 02/23/21 16:36 67 02/23/21 16:00 36.8 C 70 20 127/71 97
[2021-02-23 17:18] LABS: Potassium 2.9 mmol/L (3.5-5.1)
[2021-02-23 17:19] LABS: BUN Creatinine Ratio 9.4 (10-20); Calcium 6.9 mg/dl (8.5-10.1); Creatinine Clr Calc Pharmacy 76.6 ml/min; Est GFR (African American) 95.5 ml/min; Est GFR (Non-African American) 82.4 ml/min; Magnesium 1.8 mg/dl (1.8-2.4)
[2021-02-23] MEDS: POTASSIUM CHLORIDE CRTAB 20 MEQ TABCR PO SCH (18:05)
[2021-02-23] MEDS: ATORVASTATIN 40 MG TAB PO SCH (20:22)
[2021-02-24] MEDS: RASPBERRY SYRUP 5 ML UDP PO SCH ×3 (00:22→12:39)
[2021-02-24] MEDS: VANCOMYCIN HCL 250 MG/5 ML SOLN PO SCH ×3 (00:22→12:39)
[2021-02-24] MEDS ORDERED: POTASSIUM CHLORIDE CRTAB 20 MEQ TABCR PO STA (00:56)
[2021-02-24] MEDS: POTASSIUM CHLORIDE / WTR 10 MEQ/100 ML PLCT IV SCH ×2 (01:13→01:14)
[2021-02-24] MEDS: CALCIUM 600MG + VIT D 400 IU TAB PO SCH (08:22)
[2021-02-24] MEDS: lisinopril 20 MG TAB PO SCH (08:22)
[2021-02-24] MEDS: METOPROLOL TARTRATE 25 MG TAB PO SCH (08:22)
[2021-02-24] MEDS: CHOLESTYRAMINE LIGHT 4 GM PKT PO SCH (08:22)
[2021-02-24] MEDS: PANTOprazole 40 MG TAB PO SCH (08:22)
[2021-02-24] MEDS: ASPIRIN 81 MG ECTAB PO SCH (08:22)
[2021-02-24] MEDS: ADVANCED PROBIOTIC 1250 MG CAPSULE PO SCH (08:22)
[2021-02-24] MEDS: ACYCLOVIR 200 MG CAP PO SCH (08:22)
[2021-02-24 09:42] LABS: BUN Creatinine Ratio 6.7 (10-20); Creatinine Clr Calc Pharmacy 80.9 ml/min; Est GFR (African American) 101.1 ml/min; Est GFR (Non-African American) 87.2 ml/min; Potassium 3.8 mmol/L (3.5-5.1)
--- NOTE | 2021-02-25 11:27 | Discharge Summary ---
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 During the first week of January, he was treated with antibiotics for his dental infection, then after that he developed diarrhea and was C. diff positive and treated with 10 days of p.o. vancomycin. He stopped vancomycin 5 days ago, but still has significant diarrhea. One day he is fine and next day he was going to bathroom every half an hour and feeling very weak, so he came to the ER today. His labs showed white count of 15, magnesium of 0.8. CAT scan showing nonspecific pancolitis. The patient complains of abdominal discomfort, had 1 episode of nausea/vomiting. Denies any chest pain or shortness of breath. No cough, no fever, no chills, no headache, no blurred vision, no earache, runny nose from his allergies. No sore throat. He had his 2 COVID shots. Currently resting comfortable and hemodynamically stable. Admission Exam Per Admitting Provider GENERAL: The patient is of moderate build, not in acute distress. VITAL SIGNS: Temperature 36.6, pulse 90, respiratory rate 20, blood pressure 108/64, oxygen 94% on room air. HEENT: Pupils equal, round, reactive to light. Oral mucosa moist. NECK: No JVD. No neck masses. CARDIOVASCULAR: S1, S2 heard, regular rate and rhythm, no murmur, no gallop. RESPIRATORY SYSTEM: Normal AP diameter. No accessory muscle use. No wheezing, no crackles. ABDOMEN: Soft, bowel sounds present. Mild diffuse tenderness. Mild guarding. No rigidity. No distention. CENTRAL NERVOUS SYSTEM: Cranial nerves II-XII grossly intact, nonfocal. EXTREMITIES: No edema, no erythema. Principal Diagnosis C. Diff Discharge Exam General: A&Ox3 HENT: NCAT, MMM, EOMI Eyes: PERRLA Neck: Supple, normal range of motion CVS: normal rate and rhythm Resp: b/l good breath sounds Abdomen: Soft, ND/NT, +BS Extremities: No c/c/e Neuro: face symmetric, no focal deficit Skin: warm and dry, no rashes/lesions/errythema MSK: normal ROM, no joint swelling/erythema Discharge Data Allergies Allergy/AdvReac Type Severity Reaction Status Date / Time shellfish derived Allergy Intermediate HIVES Verified 02/21/21 19:01 Consultations 02/21/21 20:22 ED Decision to Admit Stat 02/22/21 08:00 Consult Gastroenterology Routine Ordered Studies 02/21/21 18:32 CT abd pelvis wo con Stat Hospital Course (1) C. difficile diarrhea: Presented with ongoing diarrhea abdominal discomfort: CT abdomen pelvis shows pancolitis, Due to C. difficile colitis: Patient continued with p.o. vancomycin, Appreciate input from GI, pt completed 10 days of PO Vancomycin from 02/07 to 02/17 , continued to have multiple loose bowel movements daily after completion of Po Vanco Discharged on: Vancomycin 125 mg QID for 2 weeks -then BID for 7 days -then daily for 7 days -then every other day for 4 weeks On the day of discharge patient was doing okay. He did not have any new complaints. Patient was discharged in stable condition. C. difficile colitis: Due to recent antibiotic treatment for dental procedure Treatment outlined as above History of multiple myeloma: hold Revlimid D/w Pt's Heme Onc Dr Love regarding Revlimid tx recommends to hold it during vancomycin taper Can resume treatment after completion of p.o. vancomycin Total Time Total Time Spent Total Time Spent (In Minutes): 35 Discharge Plan Discharge Items Patient Disposition: Home - Home Health Services Reason For Visit: DIARRHEA Discharge Diagnosis: Diarrhea C. difficile colitis Activity: Resume your previous activity Non-emergency contact: Primary Care Provider Call non-emergency contact if: you have any medication questions Follow-up/Referrals: Savanah Geiger DO [Primary Care Provider] - (Date & Time 03/01/2021 10:20 AM Provider Regina Williamson MD [facility] ) Diet: Regular Addtl Attending Provider Instructions: Please take all medications as instructed on discharge list below. It is recommended that you follow-up with your primary care physician within 1-2 weeks of hospital discharge to ensure you are still doing well. Please call if you have any questions or problems. You can reach a [facility] hospitalist on duty at [facility] 24 hours a day by calling [phone] Vancomycin 125 mg QID for 2 weeks -then BID for 7 days -then daily for 7 days -then every other day for 4 weeks Addtl [employer]ning [employer] Provider Instructions: Lab: Basic Metabolic panel and Mg level in 1 week Pending Studies at Discharge: No Stand-Alone Forms: My [facility], Smoking Cessation Medications and DC Order Prescriptions: New vancomycin 1,000 mg Recon Soln 125 mg PO Q6 Qty: 92 RF: 0 Continued atorvastatin 80 mg tablet 80 mg PO QPM RF: 0 lisinopril 20 mg tablet 20 mg PO QAM RF: 0 aspirin 81 mg tablet,delayed release (DR/EC) 81 mg PO QAM RF: 0 pantoprazole 40 mg tablet,delayed release (DR/EC) 40 mg PO QAM RF: 0 nitroglycerin 0.4 mg tablet, sublingual 0.4 mg sublingual DIRECTED PRN (Reason: Chest Pain) RF: 0 metoprolol tartrate 25 mg tablet 25 mg PO BID RF: 0 hydrocodone-acetaminophen 10-325 mg tablet 1 tab PO Q6H PRN (Reason: Pain, Moderate) RF: 0 ondansetron HCl 8 mg Tablet 8 mg PO Q8H PRN (Reason: Nausea) RF: 0 loperamide 2 mg Tablet 2 mg PO Q6H PRN (Reason: Diarrhea) RF: 0 prochlorperazine maleate 10 mg Tablet 10 mg PO Q6H PRN (Reason: Nausea) RF: 0 potassium chloride [Klor-Con M20] 20 mEq Tablet,Er Particles/Crystals 20 meq PO QPM RF: 0 dexamethasone 4 mg Tablet 40 mg PO WK RF: 0 acyclovir 200 mg Capsule 400 mg PO BID RF: 0 calcium citrate-vitamin D3 250 mg-5 mcg (200 unit) Tablet 1 tab PO QPM RF: 0 furosemide 20 mg tablet 20 mg PO 3XWK RF: 0 Probiotic 100 billion cell Capsule 1 cap PO QAM RF: 0 Discontinued Revlimid 10 mg capsule 10 mg PO DIRECTED RF: 0 Velcade 3.5 mg Recon Soln 3.4 mg subcut UD RF: 0 Discharge Orders: Discharge Order (Routine); Ordered 02/24/21 Ordered By: Luann Pineda Admission Data Admit Date/Time: 02/21/21 21:44 Attending Provider: Luann Pineda Admit Provider: Lawrence Cochran Primary Care Provider: Savanah Geiger Other Providers: Lawrence Cochran ; Vj Farley ; [facility] Other Interventions: Discharge Summary Assessment (RN) Last Done: 02/24/21 13:55
== END 2021-02-24 15:54 | disposition home health service (06) | DRG 372 ==
LOC: ED 18:07 → SUATTDRO 21:44 → 2W 21:44

== ENCOUNTER 2021-04-16 12:32 | Inpatient (IN) ==
--- NOTE | 2021-04-16 13:48 | Emergency Department Note ---
Impression & Plan Clostridium difficile colitis, Hypomagnesemia, Dehydration, Hypokalemia ED Provider Note NAME: JESSICA BILLY AGE: 71 SEX: M ARRIVES VIA: Walk-In INFORMANT: Patient, ED PROVIDER(S): Ruben Jones MD CHIEF COMPLAINT: Abdominal pain, diarrhea. PLAN: Disposition: Admit MEDICAL DECISION MAKING: The patient is a pleasant 71 y/o gentleman with a pmhx of multiple myeloma, GERD, CAD, COPD, recent admission for cdiff where he reports improvement and resolution of symptoms after completing his course of oral vancomycin a week ago who presents to the emergency department accompanied by his with return of foul smelling diarrhea several days ago. He reports associated n/v. He denies cough, congestion, cp, sob, urinary symptoms. On arrival the patient is in NAD, AF, HR 110s and otherwise VSS. He appears clinically dry. He has mild LLQ tenderness without guarding or rebound. WBC, 17.3 c/w suspicion for Cdiff recurrence. H/H 11.5/35.9 improved from prior. Platelets wnl. Chemistry without acidosis. BUN 21 c/w clinically dry appearance. Potassium 3.3 and Magnesium 1.2 with repletion initiiate. Otherwise, electrolytes unremarkable. LFTs without significant abnormality. Lipase is not elevated. Cdiff gene and toxin were positive. CT of the abd/pelvis demonstrates evidence of colitis. Again seen is patient's known AAA and Iliac artery aneurysms. Upon re-evaluation the patient felt some improvement after IVF hydration, apap, pepcid, zofran. However, given still symptomatic and with electrolyte abnormalities in the setting of recurrence of cdiff, with colitis he agrees with plan for admission. Fidaxomicin ordered. Case was discussed with Urvashi Zaidi, [facility] PAC, with Dr. Nando Esqueda hospitalist who will evaluate the patient for admission. Triage Nursing notes reviewed and agree them. Prior medical records reviewed Vital Signs: reviewed and remarkable for no significant abnormalities Differential diagnosis: Appendicitis, testicular torsion, infections, diverticulitis, UTI, obstruction, mesenteric ischemia, aortic pathology, inflammatory bowel disease, renal colic, PUD, pancreatitis, biliary pathology, hernia, volvulus, constipation, as well as other pathologies. ER treatment provided: See below. Diagnostics interpreted by me: ECG: NSR, 84 bpm, no ectopy, no overt ST elevation or depression. Cardiac Monitoring: An order for continuous cardiac monitoring was placed and demonstrated NSR, 84 bpm, no ectopy. Laboratory studies: See below Imaging studies: See below Consultation(s): Case was discussed with Urvashi Zaidi, [facility] PAC, with Dr. Nando Esqueda hospitalist who will evaluate the patient for admission. HPI: The patient is a pleasant 71 y/o gentleman with a pmhx of multiple myeloma, GERD, CAD, COPD, recent admission for cdiff where he reports improvement and resolution of symptoms after completing his course of oral vancomycin a week ago who presents to the emergency department accompanied by his with return of foul smelling diarrhea several days ago. He reports associated n/v. He denies cough, congestion, cp, sob, urinary symptoms. ROS: See above HPI for pertinent positives & negatives. A total of 10 systems reviewed and were otherwise negative. PAST MEDICAL HISTORY:See Below PAST SURGICAL HISTORY:See Below FAMILY HISTORY:See Below SOCIAL HISTORY:See Below HOME MEDICATIONS:See Below ALLERGIES:See Below VITALS:See Below PHYSICAL EXAMINATION: GENERAL: Awake, alert, uncomfortable-appearing, in no distress HENT: Normocephalic, atraumatic. Oropharynx with dry mucous membranes and otherwise unremarkable. EYES: Normal conjunctiva. Sclera non-icteric. NECK: Supple. No nuchal rigidity. FROM. No JVD. RESPIRATORY: Clear to auscultation. CARDIAC: Regular rate, normal rhythm. Extremities warm and well perfused. Pulses equal. ABDOMEN: Soft, non-distended. Mild LLQ tenderness without guarding or rebound. No rebound or guarding. No masses. RECTAL: Deferred. MUSCULOSKELETAL: Chest examination reveals no tenderness. The back is symmetrical on inspection without obvious abnormality. There is no CVA tenderness to palpation. No joint edema. LOWER EXTREMITIES: Calves are equal size bilaterally and non-tender. No edema. No discoloration. NEURO: Normal sensorium. No sensory or motor deficits noted. SKIN: No rash or jaundice noted. ED COURSE: Critical Care: I have personally spent greater than 35 minutes of critical care time in the direct management of this patient. This includes bedside care, interpretation of diagnostic studies, and testing, discussion with consultants, patient, and family members, and other required patient management activities. This 35 minutes is in excess of all separately billable procedures. Ruben Jones MD Past Med/Surg History Medical History Abdominal aortic aneurysm 5cm per 03/2020 CT- under surveillance by vascular Anemia Arthritis Bilateral pneumonia hospitalized for this 07/2020 [facility] Bladder cancer dx March 2020; hx TURBT 04/27/2020 [facility] Chronic steroid use COPD (chronic obstructive pulmonary disease) no inh Coronary artery disease BMS (2014) follows with Dr. Geiger GERD (gastroesophageal reflux disease) History of COVID-19 10/05/19 > tested at [place] History of kidney stones History of myocardial infarction 2013 History of pancreatitis Hyperlipidemia Hypertension Lung nodule, multiple per , refusing work up at present time Multiple myeloma reason for dexamethasone, revlimid & velcade Surgical History History of cardiac catheterization 2013 [facility] [place] - 1 stent History of cholecystectomy History of colonoscopy History of cystoscopy History of tooth extraction Family History Other Family history non-contributory Social History Smoking Status: Current every day smoker Tobacco Type: Cigarettes Second Hand Exposure: No; Hx Alcohol Use: No Hx Substance Use: Yes Last Used Substance: Just Prior to Arrival Last Used Substance Other:: yesterday Substance Use Type Other:: marijuana once weekly Preferred Language: Persian Communication Ability: Effective Visual Impairment: No Limitations Manager Group Home Required: No Beliefs That Will Affect Care: None marital status: Current Living Situation: Spouse Feels Safe at Home: Yes Assistive Devices: Denture - Upper and Denture - Lower Allergies Allergies Allergy/AdvReac Type Severity Reaction Status Date / Time shellfish derived Allergy Intermediate HIVES Verified 04/16/21 14:57 Home Meds Home Medications Medication Instructions Recorded Confirmed aspirin 81 mg tablet,delayed 81 mg PO QAM 09/29/19 04/16/21 release atorvastatin 80 mg tablet 80 mg PO QPM 09/29/19 04/16/21 lisinopril 20 mg tablet 20 mg PO QAM 09/29/19 04/16/21 metoprolol tartrate 25 mg tablet See Rx Instructions .ROUTE .COMPLEX 09/29/19 04/16/21 nitroglycerin 0.4 mg sublingual 0.4 mg SUBLINGUAL DIRECTED PRN 09/29/19 04/16/21 tablet pantoprazole 40 mg tablet,delayed 40 mg PO QAM 09/29/19 04/16/21 release acyclovir 200 mg capsule 400 mg PO BID 10/05/20 04/16/21 calcium citrate 250 mg 1 tab PO HS 10/05/20 04/16/21 calcium-vitamin D3 5 mcg (200 unit) tablet potassium chloride 20 mEq 20 meq PO HS 10/05/20 04/16/21 tablet,extended release(part/cryst) (Klor-Con M) furosemide 20 mg tablet 20 mg PO 3XWK 02/21/21 04/16/21 gabapentin 100 mg capsule 100 mg PO TID 04/16/21 04/16/21 (Neurontin) magnesium oxide 250 mg PO BID 04/16/21 04/16/21 Results & Data (ED) Vital Signs Vital Signs - 24 hr 04/16/21 12:41 04/16/21 14:40 04/16/21 15:23 Temperature 37.1 C Temperature Source Temporal Artery Scan Pulse Rate 113 H 85 Pulse Rate from SpO2 Sensor 85 Respiratory Rate 18 21 Respiratory Effort / Characteristics Non-Labored Respiratory Depth Normal Blood Pressure 148/96 H 138/88 Blood Pressure Mean 113 104 Pulse Oximetry 99 97 Oxygen Delivery Method Room Air Sepsis Recent Fever Within 48 Hours No Sepsis New/Unexplained Change in Mental Status No Sepsis Action Taken by Nursing No Action Required Laboratory Data Attestation: I reviewed the patient's lab results. Result diagrams: 04/16/21 13:29 04/16/21 13:29 Lab Results 04/16/21 04/16/21 04/16/21 Range/Units 13:29 13:29 13:29 WBC 17.34 H (4.8-10.8) K/uL RBC 3.76 L (4.7-6.1) M/uL Hgb 11.5 L (14.0-18.0) g/dL Hct 35.9 L (42-52) % MCV 95.5 (80-100) fL MCH 30.6 (25-34) pg MCHC 32.0 (32-36) g/dL RDW Std Deviation 51.7 H (36.4-46.3) fL RDW Coeff of Andrew 14.8 H (11.5-14.5) % Plt Count 267 (130-400) K/uL MPV 10.5 H (7.4-10.4) fL Immature Gran % (Auto) 0.2 % Neut % (Auto) 86.7 % Lymph % (Auto) 7.0 % [place] % (Auto) 5.3 % Eos % (Auto) 0.7 % Baso % (Auto) 0.1 % Neut # (Auto) 15.05 H (1.4-6.5) K/uL Lymph # (Auto) 1.21 (1.2-3.4) K/uL [place] # (Auto) 0.92 H (0.11-0.59) K/uL Eos # (Auto) 0.12 (0-0.5) K/uL Baso # (Auto) 0.01 (0-0.2) K/uL Immature Gran # (Auto) 0.03 H (0.00-0.02) K/uL Sodium 138 (136-145) mmol/L Potassium 3.3 L (3.5-5.1) mmol/L Chloride 107 (98-107) mmol/L Carbon Dioxide 21 (21-32) mmol/L Anion Gap 10.0 (3-11) BUN 21 H (7-18) mg/dl Creatinine 1.20 (0.6-1.4) mg/dl Est Cr Clr Drug Dosing Not Reportable Est GFR ( Amer) 71.1 ml/min Est GFR (Non-Af Amer) 61.3 ml/min BUN/Creatinine Ratio 17.4 (10-20) Glucose 105 H (70-99) mg/dl Calcium 8.6 (8.5-10.1) mg/dl Phosphorus 2.4 L (2.5-4.9) mg/dl Magnesium 1.2 L (1.8-2.4) mg/dl Total Bilirubin 0.8 (0.2-1) mg/dl Direct Bilirubin 0.2 (0-0.2) mg/dl AST 12 L (15-37) U/L ALT 16 (12-78) U/L Alkaline Phosphatase 106 (45-117) U/L Total Protein 7.4 (6.4-8.2) gm/dl Albumin 3.7 (3.4-5.0) gm/dl Globulin 3.7 (2.5-4.0) gm/dl Albumin/Globulin Ratio 1.0 (0.9-2) Lipase 73 (73-393) U/L Stl C. diff Tox B Gene Positive Cdiff Gene H (Neg) Stl C.difficile Tox A&B Positive Cdiff Toxin A* (Negative) COVID-19 Eval Order SARS-CoV-2 (PCR) (Negative) 04/16/21 04/16/21 Range/Units 14:07 14:07 WBC (4.8-10.8) K/uL RBC (4.7-6.1) M/uL Hgb (14.0-18.0) g/dL Hct (42-52) % MCV (80-100) fL MCH (25-34) pg MCHC (32-36) g/dL RDW Std Deviation (36.4-46.3) fL RDW Coeff of Andrew (11.5-14.5) % Plt Count (130-400) K/uL MPV (7.4-10.4) fL Immature Gran % (Auto) % Neut % (Auto) % Lymph % (Auto) % [place] % (Auto) % Eos % (Auto) % Baso % (Auto) % Neut # (Auto) (1.4-6.5) K/uL Lymph # (Auto) (1.2-3.4) K/uL [place] # (Auto) (0.11-0.59) K/uL Eos # (Auto) (0-0.5) K/uL Baso # (Auto) (0-0.2) K/uL Immature Gran # (Auto) (0.00-0.02) K/uL Sodium (136-145) mmol/L Potassium (3.5-5.1) mmol/L Chloride (98-107) mmol/L Carbon Dioxide (21-32) mmol/L Anion Gap (3-11) BUN (7-18) mg/dl Creatinine (0.6-1.4) mg/dl Est Cr Clr Drug Dosing Est GFR ( Amer) ml/min Est GFR (Non-Af Amer) ml/min BUN/Creatinine Ratio (10-20) Glucose (70-99) mg/dl Calcium (8.5-10.1) mg/dl Phosphorus (2.5-4.9) mg/dl Magnesium (1.8-2.4) mg/dl Total Bilirubin (0.2-1) mg/dl Direct Bilirubin (0-0.2) mg/dl AST (15-37) U/L ALT (12-78) U/L Alkaline Phosphatase (45-117) U/L Total Protein (6.4-8.2) gm/dl Albumin (3.4-5.0) gm/dl Globulin (2.5-4.0) gm/dl Albumin/Globulin Ratio (0.9-2) Lipase (73-393) U/L Stl C. diff Tox B Gene (Neg) Stl C.difficile Tox A&B (Negative) COVID-19 Eval Order Covid19 at [facility] SARS-CoV-2 (PCR) NEGATIVE (Negative) Administered Medications Atorvastatin Calcium (Atorvastatin 40 Mg Tab) 80 mg PO QPM EZEKIEL Stop: 05/16/21 20:59 Last Admin: 04/16/21 21:44 Dose: 80 mg Documented by: [id number] Gabapentin (Gabapentin 100 Mg Cap) 100 mg PO TID EZEKIEL Stop: 05/16/21 20:59 Last Admin: 04/16/21 21:46 Dose: 100 mg Documented by: [id number] Heparin Sodium (Porcine) (Heparin Sod 5,000 Unit/0.5 Ml Vial) 5,000 units SQ Q8 EZEKIEL Stop: 05/16/21 21:59 Last Admin: 04/16/21 21:44 Dose: 5,000 units Documented by: [id number] Potassium Chloride/Sodium Chloride (Normal Saline W/20 Meq Kcl) 20 meq in 1,000 mls @ 100 mls/hr IV .Q10H EZEKIEL Stop: 04/17/21 06:14 Last Infusion: 04/16/21 21:42 Dose: 0 mls/hr Documented by: [id number] Admin: 04/16/21 21:36 Dose: 100 mls/hr Documented by: [id number] Miscellaneous (Calcium Citrate/Vitamin D: Order Awaiting Action) 1 ea N/A QS EZEKIEL Stop: 05/17/21 00:00 Last Admin: 04/17/21 00:00 Dose: Not Given Documented by: [id number] Ondansetron HCl (Ondansetron Inj 2 Mg/Ml 2 Ml Vial) 4 mg IV Q6H PRN PRN Reason: Nausea Stop: 05/16/21 17:55 Last Admin: 04/16/21 21:47 Dose: 4 mg Documented by: [id number] Potassium Chloride (Potassium Chloride Crtab 20 Meq Tabcr) 20 meq PO HS EZEKIEL Stop: 05/16/21 20:59 Last Admin: 04/16/21 21:46 Dose: 20 meq Documented by: [id number] Raspberry (Raspberry Syrup 5 Ml Udp) 5 ml PO Q6 EZEKIEL Stop: 04/30/21 20:44 Last Admin: 04/17/21 00:00 Dose: 5 ml Documented by: [id number] Admin: 04/16/21 21:37 Dose: 5 ml Documented by: [id number] Vancomycin HCl (Vancomycin Hcl 125 Mg/2.5ml Soln) 125 mg PO Q6 EZEKIEL Stop: 04/26/21 20:44 Last Admin: 04/17/21 00:00 Dose: 125 mg Documented by: [id number] Admin: 04/16/21 21:37 Dose: 125 mg Documented by: [id number] Discontinued Medications Fidaxomicin (Fidaxomicin 200 Mg Tab) 200 mg PO NOW STA Stop: 04/16/21 17:50 Last Admin: 04/16/21 21:45 Dose: 200 mg Documented by: [id number] Sodium Chloride (Nss 1000ml) 1,000 mls @ 999 mls/hr IV .Q1H1M ONE Stop: 04/16/21 14:51 Last Infusion: 04/16/21 15:22 Dose: 0 mls/hr Documented by: [id number] Admin: 04/16/21 14:02 Dose: 999 mls/hr Documented by: [id number] Famotidine (Pepcid 20mg Iv Push) 20 mg in 5 mls @ 2.5 mls/min IV NOW STA Stop: 04/16/21 13:52 Last Admin: 04/16/21 14:02 Dose: 2.5 mls/min Documented by: [id number] Acetaminophen (Ofirmev) 1,000 mg in 100 mls @ 400 mls/hr IV NOW STA Stop: 04/16/21 14:16 Last Infusion: 04/16/21 15:16 Dose: 0 mls/hr Documented by: [id number] Admin: 04/16/21 14:10 Dose: 400 mls/hr Documented by: [id number] Magnesium Sulfate/Dextrose (Magnesium Sulfate / D5w) 1 gm in 100 mls @ 100 mls/hr IV Q1H EZEKIEL Stop: 04/16/21 17:15 Last Infusion: 04/16/21 18:12 Dose: 0 mls/hr Documented by: [id number] Admin: 04/16/21 16:23 Dose: 100 mls/hr Documented by: [id number] Infusion: 04/16/21 16:23 Dose: 100 mls/hr Documented by: [id number] Admin: 04/16/21 15:45 Dose: 100 mls/hr Documented by: [id number] Magnesium Sulfate/Dextrose (Magnesium Sulfate / D5w) 1 gm in 100 mls @ 50 mls/hr IV Q2H EZEKIEL Stop: 04/17/21 00:14 Last Admin: 04/16/21 21:43 Dose: 50 mls/hr Documented by: [id number] Infusion: 04/16/21 21:43 Dose: 50 mls/hr Documented by: [id number] Admin: 04/16/21 21:37 Dose: 50 mls/hr Documented by: [id number] Potassium Chloride (K David / Wtr) 10 meq in 100 mls @ 100 mls/hr IV Q1H EZEKIEL Stop: 04/16/21 22:14 Last Admin: 04/16/21 21:47 Dose: 100 mls/hr Documented by: [id number] Infusion: 04/16/21 21:47 Dose: 100 mls/hr Documented by: [id number] Admin: 04/16/21 21:45 Dose: 100 mls/hr Documented by: [id number] Ioversol (Optiray 320 100ml) 95 ml IV ONCE ONE Stop: 04/16/21 15:18 Last Admin: 04/16/21 15:17 Dose: 95 ml Documented by: [id number] Ondansetron HCl (Ondansetron Inj 2 Mg/Ml 2 Ml Vial) 4 mg IV NOW STA Stop: 04/16/21 13:52 Last Admin: 04/16/21 14:02 Dose: 4 mg Documented by: [id number] Imaging Data Radiologist's Impression: Abdomen/Pelvis CT 04/16/21 13:50 CT abd pelvis IV con only CLINICAL HISTORY: Abdominal pain, nausea, vomiting, diarrhea. COMPARISON STUDY: 02/21/2021 TECHNIQUE: The patient was scanned in a dynamic helical fashion during intravenous administration of 95 cc of Optiray 320. A dose lowering technique was utilized adhering to the principles of ALARA. CT DOSE: 304.68 mGy.cm FINDINGS: Lower chest: There is a small right pleural effusion and trace left pleural effusion. There are basilar opacities, likely atelectatic. Liver: There are scattered hepatic hypodensities, statistically representing cysts. The hepatic and portal veins appear patent as visualized. Gallbladder: Surgically absent Spleen: Mildly enlarged measuring 13.4 cm Pancreas: Unremarkable. Adrenal glands: Unremarkable. Kidneys: There are bilateral hypodense renal lesions which exceeds water attenuation and are therefore indeterminate. While likely representing a combination of cysts and hyperdense cysts, solid renal masses cannot be excluded. These remain similar to the prior July 2020 study. Bowel: There are no transition zones to indicate bowel obstruction. There are scattered colonic air-fluid levels. There is mild colonic wall thickening, most pronounced involving the left colon and rectosigmoid. The findings are consis tent with a nonspecific colitis. Peritoneum: There is no intraperitoneal free air or abdominal ascites. There are small fat-containing inguinal hernias. Vasculature: There is a 4.6 cm infrarenal abdominal aortic aneurysm. 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 There is fusiform dilatation of both common iliac arteries. Adenopathy: None. Pelvic viscera: There is mild prostatomegaly. Skeletal structures: No lytic lesion involving the left posterior 10th rib. This is suspicious for a neoplastic process. There is partial visualization of a lytic lesion involving the left ninth rib. IMPRESSION: 1. No evidence of bowel obstruction. No evidence of free air 2. Colonic wall thickening consistent with a nonspecific colitis 3. 4.6 cm infrarenal abdominal aortic aneurysm. Fusiform dilatation of both common iliac arteries. 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 4. Bilateral indeterminate renal lesions likely representing a combination of cysts and hyperdense cysts 5. Small right pleural effusion and trace left pleural effusion. Bibasilar parenchymal opacities likely atelectatic. 6. Redemonstration of a lytic lesion involving the left 10th rib suspicious for neoplasm ACT 112: Negative or not required by law. Electronically signed by: Maximus Garcia M.D. 04/16/2021 3:51 PM Discharge Plan Visit Data Chief Complaint: Illness Stated Complaint: C DIFF IN PAST, POSSIBLY BACK, STOMACH ISSUES,WEAK Discharge Problem: Clostridium difficile colitis, Hypomagnesemia, Dehydration, Hypokalemia Patient Disposition: Admitted As Inpatient Discharge Instructions Interventions: ED Discharge Assessment Last Done: 04/16/21 19:25
[2021-04-16] MEDS ORDERED: FAMOTIDINE 20MG IV PUSH 20 MG/5 ML SYR IV STA (13:51)
[2021-04-16] MEDS ORDERED: ONDANSETRON INJ 2 MG/ML 2 ML VIAL IV STA (13:51)
[2021-04-16] MEDS ORDERED: SODIUM CHLORIDE 0.9% 1000ML 1,000 ML IV ONE (13:51)
[2021-04-16 14:00] LABS: Hematocrit (blood only) 35.9 % (42-52); Hemoglobin 11.5 g/dL (14.0-18.0); Mean Corpuscular Hemoglobin 30.6 pg (25-34); Mean Corpuscular Volume 95.5 fL (80-100); Mean Platelet Volume 10.5 fL (7.4-10.4); Platelet Count 267 K/uL (130-400); RDW Coefficient of Variation 14.8 % (11.5-14.5); RDW Standard Deviation 51.7 fL (36.4-46.3); Red Blood Count 3.76 M/uL (4.7-6.1); White Blood Count 17.34 K/uL (4.8-10.8)
[2021-04-16] MEDS ORDERED: ACETAMINOPHEN 1,000 MG/100 ML VIAL IV STA (14:02)
[2021-04-16 14:12] LABS: Alanine Aminotransferase 16 U/L (12-78); Albumin Level 3.7 gm/dl (3.4-5.0); Aspartate Aminotransferase 12 U/L (15-37); BUN Creatinine Ratio 17.4 (10-20); Blood Urea Nitrogen 21 mg/dl (7-18); Calcium 8.6 mg/dl (8.5-10.1); Carbon Dioxide 21 mmol/L (21-32); Chloride 107 mmol/L (98-107); Est GFR (African American) 71.1 ml/min; Est GFR (Non-African American) 61.3 ml/min; Glucose 105 mg/dl (70-99); Lipase 73 U/L (73-393); Magnesium 1.2 mg/dl (1.8-2.4); Potassium 3.3 mmol/L (3.5-5.1); Sodium 138 mmol/L (136-145)
[2021-04-16 14:16] LABS: Alkaline Phosphatase 106 U/L (45-117); Bilirubin Direct 0.2 mg/dl (0-0.2); Bilirubin,Total 0.8 mg/dl (0.2-1); Globulin 3.7 gm/dl (2.5-4.0); Phosphorus 2.4 mg/dl (2.5-4.9); Total Protein 7.4 gm/dl (6.4-8.2)
[2021-04-16 14:23] LABS: Basophils # (auto) 0.01 K/uL (0-0.2); Basophils % (auto) 0.1 %; Eosinophils # (auto) 0.12 K/uL (0-0.5); Eosinophils % (auto) 0.7 %; Immature Granulocytes # (auto) 0.03 K/uL (0.00-0.02); Immature Granulocytes % (auto) 0.2 %; Lymphocytes # (auto) 1.21 K/uL (1.2-3.4); Monocytes # (auto) 0.92 K/uL (0.11-0.59); Monocytes % (auto) 5.3 %; Neutrophils # (auto) 15.05 K/uL (1.4-6.5); Neutrophils % (auto) 86.7 %
[2021-04-16] MEDS ORDERED: OPTIRAY 320 100ml IV ONE (15:17)
[2021-04-16] MEDS: MAGNESIUM SULFATE / D5W 1 GM/100 ML BAG IV SCH ×4 (15:45→21:43)
--- NOTE | 2021-04-16 15:52 | CT Scan Report ---
CT abd pelvis IV con only CLINICAL HISTORY: Abdominal pain, nausea, vomiting, diarrhea. COMPARISON STUDY: 02/21/2021 TECHNIQUE: The patient was scanned in a dynamic helical fashion during intravenous administration of 95 cc of Optiray 320. A dose lowering technique was utilized adhering to the principles of ALARA. CT DOSE: 304.68 mGy.cm FINDINGS: Lower chest: There is a small right pleural effusion and trace left pleural effusion. There are basil ar opacities, likely atelectatic. Liver: There are scattered hepatic hypodensities, statistically representing cysts. The hepatic and p ortal veins appear patent as visualized. Gallbladder: Surgically absent Spleen: Mildly enlarged measuring 13.4 cm Pancreas: Unremarkable. Adrenal glands: Unremarkable. Kidneys: There are bilateral hypodense renal lesions which exceeds water attenuation and are therefor e indeterminate. While likely representing a combination of cysts and hyperdense cysts, solid renal m asses cannot be excluded. These remain similar to the prior July 2020 study. Bowel: There are no transition zones to indicate bowel obstruction. There are scattered colonic air-f luid levels. There is mild colonic wall thickening, most pronounced involving the left colon and rect osigmoid. The findings are consistent with a nonspecific colitis. Peritoneum: There is no intraperitoneal free air or abdominal ascites. There are small fat-containing inguinal hernias. Vasculature: There is a 4.6 cm infrarenal abdominal aortic aneurysm. 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 There is fusiform dilatation of both common iliac arteries. Adenopathy: None. Pelvic viscera: There is mild prostatomegaly. Skeletal structures: No lytic lesion involving the left posterior 10th rib. This is suspicious for a neoplastic process. There is partial visualization of a lytic lesion involving the left ninth rib. IMPRESSION: 1. No evidence of bowel obstruction. No evidence of free air 2. Colonic wall thickening consistent with a nonspecific colitis 3. 4.6 cm infrarenal abdominal aortic aneurysm. Fusiform dilatation of both common iliac arteries. 3. 1 cm aneurysm of the left internal iliac artery. 4. Bilateral indeterminate renal lesions likely representing a combination of cysts and hyperdense cy sts 5. Small right pleural effusion and trace left pleural effusion. Bibasilar parenchymal opacities like ly atelectatic. 6. Redemonstration of a lytic lesion involving the left 10th rib suspicious for neoplasm ACT 112: Negative or not required by law. Electronically signed by: Maximus Garcia M.D. 04/16/2021 3:51 PM
[2021-04-16 16:01] LABS: Cdiff Antigen Positive
[2021-04-16 16:03] LABS: Cdiff Toxin A+B Positive Cdiff Toxin (Negative)
--- NOTE | 2021-04-16 16:31 | Electrocardiogram Report ---
Test Reason : Blood Pressure : / mmHG Vent. Rate : 084 BPM Atrial Rate : 084 BPM P-R Int : 166 ms QRS Dur : 092 ms QT Int : 396 ms P-R-T Axes : 031 024 042 degrees QTc Int : 467 ms Normal sinus rhythm with sinus arrhythmia Cannot rule out Inferior infarct (cited on or before 22-FEB-2021) Abnormal ECG When compared with ECG of 22-FEB-2021 05:46, Premature ventricular complexes are no longer Present Premature atrial complexes are no longer Present Confirmed by Juloi Ricks ([id number]) on 04/16/2021 4:31:20 PM Referred By: REFERRED SELF Confirmed By:Julio Ricks
[2021-04-16] MEDS ORDERED: FIDAXOMICIN 200 MG TAB PO STA (17:49)
[2021-04-16] MEDS ORDERED: ACETAMINOPHEN 325 MG TAB PO PRN (17:56)
--- NOTE | 2021-04-16 18:04 | History & Physical Report ---
Date of Service April 16, 2021 Assessment & Plan (1) C. difficile diarrhea: Plan: CT abdomen pelvis shows mild colitis, Stool C. difficile positive Patient will be ordered p.o. vancomycin GI evaluation for recurrent C. difficile infection (2) COPD (chronic obstructive pulmonary disease): Plan: Stable, (3) Hypomagnesemia: Plan: Due to GI loss, order for replacement repeat lab in a.m. Hypokalemia: Due to GI loss, ordered for replacement, continue maintenance IV fluid with potassium supplement Repeat lab in a.m. Admission and Anticipated Discharge Date Admission Date: Disposition: Expected to be discharged home when medically stable History of Present Illness Chief Complaint: Diarrhea/loose stool/prior history of C. difficile Primary Care Provider: Savanah Geiger DO This is a 71-year-old presents with intractable diarrhea loose stool, no abdominal pain no fever chills no nausea Patient had multiple bowel movement since yesterday, felt dizzy and lightheaded No blood in stool Stool sample positive for C. 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 difficile, patient was discharged with prolonged p.o. vancomycin taper Reports of completing the vancomycin, No recent any other antibiotic use, No sick contact. Complains of having abdominal bloating, no cramps, CT abdomen pelvis shows mild colitis Normal white count normal vital signs. Allergies Allergy/AdvReac Type Severity Reaction Status Date / Time shellfish derived Allergy Intermediate HIVES Verified 04/16/21 14:57 Home Medications Medication Instructions Recorded Confirmed Type aspirin 81 mg tablet,delayed 81 mg PO QAM 09/29/19 04/16/21 History release atorvastatin 80 mg tablet 80 mg PO QPM 09/29/19 04/16/21 History lisinopril 20 mg tablet 20 mg PO QAM 09/29/19 04/16/21 History metoprolol tartrate 25 mg tablet See Rx Instructions .ROUTE .COMPLEX 09/29/19 04/16/21 History nitroglycerin 0.4 mg sublingual 0.4 mg SUBLINGUAL DIRECTED PRN 09/29/19 04/16/21 History tablet pantoprazole 40 mg tablet,delayed 40 mg PO QAM 09/29/19 04/16/21 History release acyclovir 200 mg capsule 400 mg PO BID 10/05/20 04/16/21 History calcium citrate 250 mg 1 tab PO HS 10/05/20 04/16/21 History calcium-vitamin D3 5 mcg (200 unit) tablet potassium chloride 20 mEq 20 meq PO HS 10/05/20 04/16/21 History tablet,extended release(part/cryst) (Klor-Con M) furosemide 20 mg tablet 20 mg PO 3XWK 02/21/21 04/16/21 History gabapentin 100 mg capsule 100 mg PO TID 04/16/21 04/16/21 History (Neurontin) magnesium oxide 250 mg PO BID 04/16/21 04/16/21 History Past Med/Surg History Medical History Abdominal aortic aneurysm 5cm per 03/2020 CT- under surveillance by vascular Anemia Arthritis Bilateral pneumonia hospitalized for this 07/2020 [facility] Bladder cancer dx March 2020; hx TURBT 04/27/2020 [facility] Chronic steroid use COPD (chronic obstructive pulmonary disease) no inh Coronary artery disease BMS (2014) follows with Dr. Geiger GERD (gastroesophageal reflux disease) History of COVID-19 10/05/19 > tested at [place] History of kidney stones History of myocardial infarction 2013 History of pancreatitis Hyperlipidemia Hypertension Lung nodule, multiple per , refusing work up at present time Multiple myeloma reason for dexamethasone, revlimid & velcade Surgical History History of cardiac catheterization 2013 [facility]- CT - 1 stent History of cholecystectomy History of colonoscopy History of cystoscopy History of tooth extraction Family History Other Family history non-contributory Social History Smoking Status: Former smoker Tobacco Type: Cigarettes Second Hand Exposure: No; Do You Dip or Chew Tobacco: No; Hx Alcohol Use: Yes Hx Substance Use: Yes Last Used Substance: Unknown Last Used Substance Other:: yesterday Substance Use Type Other:: marijuana once weekly Preferred Language: Afghan Communication Ability: Effective Visual Impairment: No Limitations Program Research Specialist Required: No Beliefs That Will Affect Care: None marital status: Current Living Situation: Spouse Other Information That Helps Us Care for You: No Feels Safe at Home: Yes Safety Concerns: Feels Safe At This Time Assistive Devices: None Review of Systems Review of Systems: All systems reviewed & are unremarkable except as noted in Subjective Physical Exam Constitutional: WD/WN, vitals as above Eyes: PERRL, conjunctivae normal, anicteric sclerae ENMT: external ear and nose normal, oropharynx normal Neck: trachea midline, no thyromegaly Respiratory: normal respiratory effort, lungs clear to auscultation Cardiovascular: RRR, no murmur, no edema Gastrointestinal (Abdomen): Inspection/Auscultation: abdomen normal to inspection Percussion/Palpation: + abdomen tender (Tenderness on right lower quadrant, no guarding or rigidity normal bowel so) and abdomen soft Musculoskeletal: no cyanosis or clubbing, extremities motor strength 5/5 Skin: no rashes, warm and dry Neurologic: PERRL, EOMI, accommodation nl, no face palsy, no dysarthria Psychiatric: A+Ox3, euthymic affect Results & Data Results & Data ([facility]) Vital Signs (Past 12 Hours) Vital Signs Temp Pulse Resp BP Pulse Ox 04/16/21 14:40 85 21 138/88 97 04/16/21 12:41 37.1 C 113 H 18 148/[address] abdomen pelvis with contrast: IMPRESSION: 1. No evidence of bowel obstruction. No evidence of free air 2. Colonic wall thickening consistent with a nonspecific colitis 3. 4.6 cm infrarenal abdominal aortic aneurysm. Fusiform dilatation of both common iliac arteries. 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 4. Bilateral indeterminate renal lesions likely representing a combination of cysts and hyperdense cysts 5. Small right pleural effusion and trace left pleural effusion. Bibasilar parenchymal opacities likely atelectatic. 6. Redemonstration of a lytic lesion involving the left 10th rib suspicious for neoplasm Code Status & VTE Plan VTE Prophylaxis Plan VTE Prophylaxis will be ordered: Yes (1) COPD (chronic obstructive pulmonary disease) COPD type: unspecified COPD Qualified Code(s): J44.9 - Chronic obstructive pulmonary disease, unspecified
[2021-04-16 20:04] LABS: Appearance Urine Clear (Clear); Bacteria Urine Automated Negative (Negative); Bilirubin Urine Negative (Negative); Blood Urine Negative (Negative); Color Urine Yellow; Glucose Urine UA Negative (Negative); Ketones Urine Trace (Negative); Leukocyte Esterase Urine Negative (Negative); Nitrite Urine Negative (Negative); Protein Urine Trace (Negative); RBC Urine Automated 0-4 /hpf (0-4); Specific Gravity Urine > 1.045 (1.000-1.030); Urobilinogen Urine Negative (Negative); pH Urine 5.5 (4.5-7.5)
[2021-04-16] MEDS ORDERED: NITROGLYCERIN SL 0.4 MG/TAB TAB SL PRN (20:07)
[2021-04-16] MEDS ORDERED: NSS + 20MEQ KCL 20 MEQ/1,000 ML BAG IV SCH (20:15)
[2021-04-16] MEDS ORDERED: CALCIUM 600MG + VIT D 400 IU TAB PO SCH (21:00)
[2021-04-16] MEDS: RASPBERRY SYRUP 5 ML UDP PO SCH (21:37)
[2021-04-16] MEDS: VANCOMYCIN HCL 125 MG/2.5ML SOLN PO SCH (21:37)
[2021-04-16] MEDS: HEPARIN SOD 5,000 UNIT/0.5 ML VIAL SQ SCH (21:44)
[2021-04-16] MEDS: ATORVASTATIN 40 MG TAB PO SCH (21:44)
[2021-04-16] MEDS: POTASSIUM CHLORIDE / WTR 10 MEQ/100 ML PLCT IV SCH ×2 (21:45→21:47)
[2021-04-16] MEDS: GABAPENTIN 100 MG CAP PO SCH (21:46)
[2021-04-16] MEDS: POTASSIUM CHLORIDE CRTAB 20 MEQ TABCR PO SCH (21:46)
[2021-04-16] MEDS: ONDANSETRON INJ 2 MG/ML 2 ML VIAL IV PRN (21:47)
[2021-04-17] MEDS: VANCOMYCIN HCL 125 MG/2.5ML SOLN PO SCH ×2 (06:22)
[2021-04-17] MEDS: HEPARIN SOD 5,000 UNIT/0.5 ML VIAL SQ SCH ×3 (06:23→20:46)
[2021-04-17] MEDS: RASPBERRY SYRUP 5 ML UDP PO SCH ×2 (06:23)
[2021-04-17 09:29] LABS: Basophils # (auto) 0.01 K/uL (0-0.2); Basophils % (auto) 0.1 %; Eosinophils # (auto) 0.18 K/uL (0-0.5); Eosinophils % (auto) 1.6 %; Hematocrit (blood only) 31.6 % (42-52); Hemoglobin 9.9 g/dL (14.0-18.0); Immature Granulocytes # (auto) 0.04 K/uL (0.00-0.02); Immature Granulocytes % (auto) 0.3 %; Lymphocytes # (auto) 0.63 K/uL (1.2-3.4); Lymphocytes % (auto) 5.5 %; Mean Corpuscular Hemoglobin 29.9 pg (25-34); Mean Corpuscular Hgb Conc 31.3 g/dL (32-36); Mean Corpuscular Volume 95.5 fL (80-100); Mean Platelet Volume 10.2 fL (7.4-10.4); Monocytes # (auto) 0.82 K/uL (0.11-0.59); Monocytes % (auto) 7.1 %; Neutrophils # (auto) 9.84 K/uL (1.4-6.5); Neutrophils % (auto) 85.4 %; Platelet Count 231 K/uL (130-400); RDW Coefficient of Variation 14.8 % (11.5-14.5); RDW Standard Deviation 51.8 fL (36.4-46.3); Red Blood Count 3.31 M/uL (4.7-6.1); White Blood Count 11.52 K/uL (4.8-10.8)
[2021-04-17] MEDS: ASPIRIN 81 MG ECTAB PO SCH (09:30)
[2021-04-17] MEDS: GABAPENTIN 100 MG CAP PO SCH ×3 (09:31→20:55)
[2021-04-17 09:55] LABS: Albumin Globulin Ratio 0.9 (0.9-2); BUN Creatinine Ratio 11.5 (10-20); Bilirubin,Total 0.4 mg/dl (0.2-1); Calcium 8.3 mg/dl (8.5-10.1); Creatinine Clr Calc Pharmacy 61.8 ml/min; Est GFR (African American) 74.1 ml/min; Est GFR (Non-African American) 63.9 ml/min; Globulin 3.3 gm/dl (2.5-4.0); Magnesium 2.2 mg/dl (1.8-2.4); Potassium 3.3 mmol/L (3.5-5.1); Total Protein 6.3 gm/dl (6.4-8.2)
[2021-04-17] MEDS: FIDAXOMICIN 200 MG TAB PO SCH ×2 (12:05→20:55)
[2021-04-17] MEDS ORDERED: POTASSIUM CHLORIDE CRTAB 20 MEQ TABCR PO STA (12:19)
[2021-04-17] MEDS ORDERED: ADVANCED PROBIOTIC 1250 MG CAPSULE PO SCH (12:45)
--- NOTE | 2021-04-17 13:22 | History & Physical Report ---
Date of Service April 17, 2021 Assessment & Plan (1) Clostridium difficile colitis: Plan: Patient presented with signs and symptoms of recurrent C. difficile infection. He appears to be improving with use of Pradaxa myosin. As this is his third recurrence I would recommend use of Pradaxa mycin twice daily for 10 days. Should the patient have subsequent recurrences alternate regimen such as long- term vancomycin suppression may need to be considered. We would recommend avoidance of unnecessary antibiotics in this patient if possible. Many of these patients do benefit from FMT, unfortunately with the Covfl this therapy has not been made available at this time. Recommendations Fidaxomicin twice daily for 10 days Please call with any questions or concerns, GI to sign off Patient should follow with his regular GI provider (Dr. Curry) to determine if a surveillance colonoscopy is needed as the patient did have a large adenomatous polyp 3 years ago Admission and Anticipated Discharge Date Admission Date: April 16, 2021 History of Present Illness Chief Complaint: Recurrent C. difficile infection Primary Care Provider: Savanah Geiger DO The patient is a 71-year-old male with a history of recurrent C. difficile infection. The patient has a history of multiple myeloma and was previously on chemotherapy. He had a tooth abscess in late December that was treated with an antibiotic and subsequently developed diarrhea in early January. He was initially treated with a course of vancomycin but then required admission for recurrent symptoms in late January. At that point he was seen by Dr. Schmitz who had suggested a longer course of vancomycin with a 6-week taper. Unfortunately the patient developed recurrent symptoms and was recently readmitted to the internal medicine service. It appears that he was started on Dificid yesterday and notes that he is slowly beginning to improve. The patient's endoscopic history is notable for colonoscopy in 2017 when he was found to have a large adenomatous polyp, the patient has yet to have his surveillance exam performed. Allergies Allergy/AdvReac Type Severity Reaction Status Date / Time shellfish derived Allergy Intermediate HIVES Verified 04/16/21 14:57 Home Medications Medication Instructions Recorded Confirmed Type aspirin 81 mg tablet,delayed 81 mg PO QAM 09/29/19 04/16/21 History release atorvastatin 80 mg tablet 80 mg PO QPM 09/29/19 04/16/21 History lisinopril 20 mg tablet 20 mg PO QAM 09/29/19 04/16/21 History metoprolol tartrate 25 mg tablet See Rx Instructions .ROUTE .COMPLEX 09/29/19 04/16/21 History nitroglycerin 0.4 mg sublingual 0.4 mg SUBLINGUAL DIRECTED PRN 09/29/19 04/16/21 History tablet pantoprazole 40 mg tablet,delayed 40 mg PO QAM 09/29/19 04/16/21 History release acyclovir 200 mg capsule 400 mg PO BID 10/05/20 04/16/21 History calcium citrate 250 mg 1 tab PO HS 10/05/20 04/16/21 History calcium-vitamin D3 5 mcg (200 unit) tablet potassium chloride 20 mEq 20 meq PO HS 10/05/20 04/16/21 History tablet,extended release(part/cryst) (Klor-Con M) furosemide 20 mg tablet 20 mg PO 3XWK 02/21/21 04/16/21 History gabapentin 100 mg capsule 100 mg PO TID 04/16/21 04/16/21 History (Neurontin) magnesium oxide 250 mg PO BID 04/16/21 04/16/21 History Past Med/Surg History Medical History Abdominal aortic aneurysm 5cm per 03/2020 CT- under surveillance by vascular Anemia Arthritis Bilateral pneumonia hospitalized for this 07/2020 [facility] Bladder cancer dx March 2020; hx TURBT 04/27/2020 [facility] Chronic steroid use COPD (chronic obstructive pulmonary disease) no inh Coronary artery disease BMS (2014) follows with Dr. Geiger GERD (gastroesophageal reflux disease) History of COVID-19 10/05/19 > tested at [place] History of kidney stones History of myocardial infarction 2014 History of pancreatitis Hyperlipidemia Hypertension Lung nodule, multiple per , refusing work up at present time Multiple myeloma reason for dexamethasone, revlimid & velcade Surgical History History of cardiac catheterization 2013 [facility]- [place] - 1 stent History of cholecystectomy History of colonoscopy History of cystoscopy History of tooth extraction Family History Other Family history non-contributory Social History Smoking Status: Former smoker Tobacco Type: Cigarettes Second Hand Exposure: No; Do You Dip or Chew Tobacco: No; Hx Alcohol Use: Yes Hx Substance Use: Yes Last Used Substance: Unknown Last Used Substance Other:: yesterday Substance Use Type Other:: marijuana once weekly Preferred Language: Arabic Communication Ability: Effective Visual Impairment: No Limitations Crm Administrator Required: No Beliefs That Will Affect Care: None marital status: Current Living Situation: Spouse Other Information That Helps Us Care for You: No Feels Safe at Home: Yes Safety Concerns: Feels Safe At This Time Assistive Devices: None Review of Systems + malaise; no sweats and no weight loss no diplopia no ear trauma no change in sputum and no hemoptysis no chest pain with activity and no dyspnea at rest + diarrhea/loose stools; no nausea and no hematemesis no urinary frequency no radicular pain no rash no falls no hopelessness no polydipsia no coagulopathy Physical Exam Constitutional: WD/WN, vitals as above Eyes: PERRL, conjunctivae normal, anicteric sclerae Neck: trachea midline, no thyromegaly Respiratory: normal respiratory effort, lungs clear to auscultation Cardiovascular: Rate/Rhythm: regular rate; not tachycardic Gastrointestinal (Abdomen): normal bowel sounds, soft, nontender, no hepatosplenomegaly Skin: no rashes, warm and dry Results & Data ([facility]) Vital Signs (Past 12 Hours) Vital Signs Temp Pulse Pulse Resp BP Pulse Ox 04/17/21 09:51 85 04/17/21 07:23 36.9 C 84 20 160/90 H 98 04/17/21 03:44 37.3 C 90 18 151/81 H 96 04/17/21 02:00 94 H Laboratory Results Laboratory Results - last 24 hr 04/16/21 04/16/21 04/16/21 13:29 13:29 13:29 WBC 17.34 H RBC 3.76 L Hgb 11.5 L Hct 35.9 L MCV 95.5 MCH 30.6 MCHC 32.0 RDW Std Deviation 51.7 H RDW Coeff of Andrew 14.8 H Plt Count 267 MPV 10.5 H Immature Gran % (Auto) 0.2 Neut % (Auto) 86.7 Lymph % (Auto) 7.0 Lewis % (Auto) 5.3 Eos % (Auto) 0.7 Baso % (Auto) 0.1 Neut # (Auto) 15.05 H Lymph # (Auto) 1.21 Lewis # (Auto) 0.92 H Eos # (Auto) 0.12 Baso # (Auto) 0.01 Immature Gran # (Auto) 0.03 H Sodium 138 Potassium 3.3 L Chloride 107 Carbon Dioxide 21 Anion Gap 10.0 BUN 21 H Creatinine 1.20 Est Cr Clr Drug Dosing Not Reportable Est GFR ( Amer) 71.1 Est GFR (Non-Af Amer) 61.3 BUN/Creatinine Ratio 17.4 Glucose 105 H Calcium 8.6 Phosphorus 2.4 L Magnesium 1.2 L Total Bilirubin 0.8 Direct Bilirubin 0.2 AST 12 L ALT 16 Alkaline Phosphatase 106 Total Protein 7.4 Albumin 3.7 Globulin 3.7 Albumin/Globulin Ratio 1.0 Lipase 73 Urine Color Urine Appearance Urine pH Ur Specific [place] Urine Protein Urine Glucose (UA) Urine Ketones Urine Blood Urine Nitrite Urine Bilirubin Urine Urobilinogen Ur Leukocyte Esterase Urine WBC (Auto) Urine RBC (Auto) U Hyaline Cast (Auto) U Epithel Cells (Auto) Urine Bacteria (Auto) Stl C. diff Tox B Gene Positive Cdiff Gene H Stl C.difficile Tox A&B Positive Cdiff Toxin A* COVID-19 Eval Order SARS-CoV-2 (PCR) 04/16/21 04/16/21 04/16/21 14:07 14:07 Unknown WBC RBC Hgb Hct MCV MCH MCHC RDW Std Deviation RDW Coeff of Andrew Plt Count MPV Immature Gran % (Auto) Neut % (Auto) Lymph % (Auto) Lewis % (Auto) Eos % (Auto) Baso % (Auto) Neut # (Auto) Lymph # (Auto) Lewis # (Auto) Eos # (Auto) Baso # (Auto) Immature Gran # (Auto) Sodium Potassium Chloride Carbon Dioxide Anion Gap BUN Creatinine Est Cr Clr Drug Dosing Est GFR ( Amer) Est GFR (Non-Af Amer) BUN/Creatinine Ratio Glucose Calcium Phosphorus Magnesium Total Bilirubin Direct Bilirubin AST ALT Alkaline Phosphatase Total Protein Albumin Globulin Albumin/Globulin Ratio Lipase Urine Color Yellow Urine Appearance Clear Urine pH 5.5 Ur Specific [place] > 1.045 H Urine Protein Trace H Urine Glucose (UA) Negative Urine Ketones Trace H Urine Blood Negative Urine Nitrite Negative Urine Bilirubin Negative Urine Urobilinogen Negative Ur Leukocyte Esterase Negative Urine WBC (Auto) 1-5 Urine RBC (Auto) 0-4 U Hyaline Cast (Auto) 1-5 U Epithel Cells (Auto) 5-10 H Urine Bacteria (Auto) Negative Stl C. diff Tox B Gene Stl C.difficile Tox A&B COVID-19 Eval Order Covid19 at [facility] SARS-CoV-2 (PCR) NEGATIVE 04/17/21 04/17/21 09:22 09:22 WBC 11.52 H RBC 3.31 L Hgb 9.9 L Hct 31.6 L MCV 95.5 MCH 29.9 MCHC 31.3 L RDW Std Deviation 51.8 H RDW Coeff of Andrew 14.8 H Plt Count 231 MPV 10.2 Immature Gran % (Auto) 0.3 Neut % (Auto) 85.4 Lymph % (Auto) 5.5 Lewis % (Auto) 7.1 Eos % (Auto) 1.6 Baso % (Auto) 0.1 Neut # (Auto) 9.84 H Lymph # (Auto) 0.63 L Lewis # (Auto) 0.82 H Eos # (Auto) 0.18 Baso # (Auto) 0.01 Immature Gran # (Auto) 0.04 H Sodium 139 Potassium 3.3 L Chloride 111 H Carbon Dioxide 21 Anion Gap 7.0 BUN 13 Creatinine 1.16 Est Cr Clr Drug Dosing 61.8 Est GFR ( Amer) 74.1 Est GFR (Non-Af Amer) 63.9 BUN/Creatinine Ratio 11.5 Glucose 139 H Calcium 8.3 L Phosphorus Magnesium 2.2 Total Bilirubin 0.4 Direct Bilirubin AST 10 L ALT 15 Alkaline Phosphatase 89 Total Protein 6.3 L Albumin 3.0 L Globulin 3.3 Albumin/Globulin Ratio 0.9 Lipase Urine Color Urine Appearance Urine pH Ur Specific [place] Urine Protein Urine Glucose (UA) Urine Ketones Urine Blood Urine Nitrite Urine Bilirubin Urine Urobilinogen Ur Leukocyte Esterase Urine WBC (Auto) Urine RBC (Auto) U Hyaline Cast (Auto) U Epithel Cells (Auto) Urine Bacteria (Auto) Stl C. diff Tox B Gene Stl C.difficile Tox A&B COVID-19 Eval Order SARS-CoV-2 (PCR) Diagnostic Findings T abd pelvis IV con only CLINICAL HISTORY: Abdominal pain, nausea, vomiting, diarrhea. COMPARISON STUDY: 02/21/2021 TECHNIQUE: The patient was scanned in a dynamic helical fashion during intr avenous administration of 95 cc of Optiray 320. A dose lowering technique was utilized adhering to the principles of ALARA. CT DOSE: 304.68 mGy.cm FINDINGS: Lower chest: There is a small right pleural effusion and trace left pleural effusion. There are basilar opacities, likely atelectatic. Liver: There are scattered hepatic hypodensities, statistically representing cysts. The hepatic and portal veins appear patent as visualized. Gallbladder: Surgically absent Spleen: Mildly enlarged measuring 13.4 cm Pancreas: Unremarkable. Adrenal glands: Unremarkable. Kidneys: There are bilateral hypodense renal lesions which exceeds water attenuation and are therefore indeterminate. While likely representing a combination of cysts and hyperdense cysts, solid renal masses cannot be excluded. These remain similar to the prior July 2020 study. Bowel: There are no transition zones to indicate bowel obstruction. There are scattered colonic air-fluid levels. There is mild colonic wall thickening, most pronounced involving the left colon and rectosigmoid. The findings are consistent with a nonspecific colitis. Peritoneum: There is no intraperitoneal free air or abdominal ascites. There are small fat-containing inguinal hernias. Vasculature: There is a 4.6 cm infrarenal abdominal aortic aneurysm. 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 There is fusiform dilatation of both common iliac arteries. Adenopathy: None. Pelvic viscera: There is mild prostatomegaly. Skeletal structures: No lytic lesion involving the left posterior 10th rib. This is suspicious for a neoplastic process. There is partial visualization of a lytic lesion involving the left ninth rib. IMPRESSION: 1. No evidence of bowel obstruction. No evidence of free air 2. Colonic wall thickening consistent with a nonspecific colitis 3. 4.6 cm infrarenal abdominal aortic aneurysm. Fusiform dilatation of both common iliac arteries. 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 4. Bilateral indeterminate renal lesions likely representing a combination of cysts and hyperdense cysts 5. Small right pleural effusion and trace left pleural effusion. Bibasilar parenchymal opacities likely atelectatic. 6. Redemonstration of a lytic lesion involving the left 10th rib suspicious for neoplasm Code Status & VTE Plan VTE Prophylaxis Plan VTE Prophylaxis will be ordered: Yes
[2021-04-17] MEDS: ADVANCED PROBIOTIC 1250 MG CAPSULE PO SCH (16:09)
--- NOTE | 2021-04-17 17:09 | Hospitalist Progress Note ---
Date of Service April 17, 2021 Assessment & Plan (1) C. difficile diarrhea: Plan: recurrent C diff colitis pt recently finished long taper dose of Po vancomycin started on Difficid CT abdomen pelvis shows mild colitis, Stool C. difficile positive GI evaluation for recurrent C. difficile infection-appreciate input needs Difficid for 10 days followed by chronic suppresive Po vancomycin therapy (2) COPD (chronic obstructive pulmonary disease): Plan: Stable, (3) Hypomagnesemia: Plan: Due to GI loss, corrected Hypokalemia: Due to GI loss, ordered for replacement, ordered for PO replacement no nausea or vomiting , had 3-4 loose BM diet advanced to solid , tolerating well Disposition : discharge to home when medically stable Admission and Anticipated Discharge Date Admission Date: April 16, 2021 Subjective diarrhea has improved no nausea or abominal pain no fever or choills worried about ongoing infection with C diff Review of Systems Review of Systems: All systems reviewed & are unremarkable except as noted in Subjective Physical Exam Constitutional: WD/WN, vitals as above Eyes: PERRL, conjunctivae normal, anicteric sclerae ENMT: external ear and nose normal, oropharynx normal Neck: trachea midline, no thyromegaly Respiratory: normal respiratory effort, lungs clear to auscultation Cardiovascular: RRR, no murmur, no edema Gastrointestinal (Abdomen): Inspection/Auscultation: abdomen normal to i nspection Percussion/Palpation: abdomen soft; abdomen nontender Musculoskeletal: no cyanosis or clubbing, extremities motor strength 5/5 Skin: no rashes, warm and dry Neurologic: PERRL, EOMI, accommodation nl, no face palsy, no dysarthria Psychiatric: A+Ox3, euthymic affect Results & Data Results & Data ([facility]) Vital Signs (Past 12 Hours) Vital Signs Temp Pulse Pulse Resp BP Pulse Ox 04/17/21 15:11 73 04/17/21 14:36 36.8 C 71 20 161/88 H 98 04/17/21 09:51 85 04/17/21 07:23 36.9 C 84 20 160/90 H 98 (1) COPD (chronic obstructive pulmonary disease) COPD type: unspecified COPD Qualified Code(s): J44.9 - Chronic obstructive pulmonary disease, unspecified
[2021-04-17] MEDS: POTASSIUM CHLORIDE CRTAB 20 MEQ TABCR PO SCH (20:55)
[2021-04-17] MEDS: ATORVASTATIN 40 MG TAB PO SCH (20:56)
[2021-04-18] MEDS: HEPARIN SOD 5,000 UNIT/0.5 ML VIAL SQ SCH ×3 (05:50→21:37)
[2021-04-18 07:28] LABS: Basophils # (auto) 0.01 K/uL (0-0.2); Basophils % (auto) 0.1 %; Eosinophils # (auto) 0.27 K/uL (0-0.5); Eosinophils % (auto) 3.2 %; Hematocrit (blood only) 32.7 % (42-52); Hemoglobin 10.4 g/dL (14.0-18.0); Immature Granulocytes # (auto) 0.09 K/uL (0.00-0.02); Immature Granulocytes % (auto) 1.1 %; Lymphocytes # (auto) 0.96 K/uL (1.2-3.4); Lymphocytes % (auto) 11.5 %; Mean Corpuscular Hemoglobin 29.9 pg (25-34); Mean Corpuscular Hgb Conc 31.8 g/dL (32-36); Mean Platelet Volume 10.1 fL (7.4-10.4); Monocytes # (auto) 0.88 K/uL (0.11-0.59); Monocytes % (auto) 10.5 %; Neutrophils # (auto) 6.15 K/uL (1.4-6.5); Neutrophils % (auto) 73.6 %; Platelet Count 238 K/uL (130-400); RDW Coefficient of Variation 14.8 % (11.5-14.5); RDW Standard Deviation 50.3 fL (36.4-46.3); Red Blood Count 3.48 M/uL (4.7-6.1); White Blood Count 8.36 K/uL (4.8-10.8)
[2021-04-18 07:44] LABS: BUN Creatinine Ratio 10.7 (10-20); Calcium 8.6 mg/dl (8.5-10.1); Creatinine Clr Calc Pharmacy 70.1 ml/min; Est GFR (African American) 89.7 ml/min; Est GFR (Non-African American) 77.4 ml/min; Magnesium 2.1 mg/dl (1.8-2.4)
[2021-04-18] MEDS: ASPIRIN 81 MG ECTAB PO SCH (08:31)
[2021-04-18] MEDS: GABAPENTIN 100 MG CAP PO SCH ×3 (08:31→21:31)
[2021-04-18] MEDS: FIDAXOMICIN 200 MG TAB PO SCH ×2 (09:25→21:31)
[2021-04-18] MEDS: ADVANCED PROBIOTIC 1250 MG CAPSULE PO SCH (09:25)
--- NOTE | 2021-04-18 15:13 | Hospitalist Progress Note ---
Date of Service April 18, 2021 Assessment & Plan (1) C. difficile diarrhea: Plan: recurrent C diff colitis pt recently finished long taper dose of Po vancomycin started on Difficid CT abdomen pelvis shows mild colitis, Stool C. difficile positive GI evaluation for recurrent C. difficile infection-appreciate input needs Difficid for 10 days followed by chronic suppressive Po vancomycin therapy sent Difficid script to pt;s pharmacy -does not have insurance coverage out of pocket cost for 20 tablets $5000 updated about the cost to pt and pt's will try to attempt to do pre authorization for Difficid on Monday to approve insurance coverge if not covered need to D/w GI what would be the best treatment option (2) COPD (chronic obstructive pulmonary disease): Plan: Stable, (3) Hypomagnesemia: Plan: Due to GI loss, corrected Hypokalemia: Due to GI loss, had one bowel movement . still loose replaced with PO K supplement Disposition : discharge to home tomorrow . Admission and Anticipated Discharge Date Admission Date: April 16, 2021 Subjective had only one bowel movement since am feels well no complain of abdominal pain no nausea or vomiting no fever or chills ambulating independently eager to be discharged home as soon as possible Review of Systems Review of Systems: All systems reviewed & are unremarkable except as noted in Subjective Physical Exam Constitutional: WD/WN, vitals as above Eyes: PERRL, conjunctivae normal, anicteric sclerae ENMT: external ear and nose normal, oropharynx normal Neck: trachea midline, no thyromegaly Respiratory: normal respiratory effort, lungs clear to auscultation Cardiovascular: RRR, no murmur, no edema Gastrointestinal (Abdomen): Inspection/Auscultation: abdomen normal to inspection Percussion/Palpation: abdomen soft; abdomen nontender Musculoskeletal: no cyanosis or clubbing, extremities motor strength 5/5 Skin: no rashes, warm and dry Neurologic: PERRL, EOMI, accommodation nl, no face palsy, no dysarthria Psychiatric: A+Ox3, euthymic affect Results & Data Results & Data ([facility]) Vital Signs (Past 12 Hours) Vital Signs Temp Pulse Pulse Resp BP Pulse Ox 04/18/21 14:59 36.6 C 79 20 165/113 H 97 04/18/21 11:01 36.5 C 81 154/104 H 94 04/18/21 07:42 36.5 C 94 H 20 167/104 H 93 04/18/21 07:10 75 (1) COPD (chronic obstructive pulmonary disease) COPD type: unspecified COPD Qualified Code(s): J44.9 - Chronic obstructive pulmonary disease, unspecified
--- NOTE | 2021-04-18 15:37 | Psychiatric Consultation ---
Date of Consultation April 18, 2021 Impression / Recommendations Impression 71-year-old male who is hospitalized for C. difficile. Patient is irritable regarding his new medical problems and diagnosis of chronic C. difficile. Patient states that he is at times overwhelmed with the news of his cancer in this. Despite this he denies any suicidal homicidal ideation and reports that his mood is fine. Patient's irritable affect can likely be explained by a number of factors including his baseline personality, as well as being away from his coping mechanisms including his cat, truck, woodshop and marijuana. Patient is not agreeable to take medications for his mood, but is agreeable to take medications to assist with sleep. He will benefit with the addition of some medications for sleep Recommendations: Trazodone 50 mg p.o. nightly added to his regimen to assist with sleep. Patient is otherwise cleared from a psychiatric standpoint. Psych History Chief Complaint "I am not taking all these fucking medications". History of Present Illness HPI as per psychiatric liaison "Rounded on patient for initial assessment consulted for depression/anxiety. Pt. resting in bed with lights off. He stated "what are you in here for?". Introduced myself, and then was receptive of visit. He expressed his frustration and disappointment of his current health status. He reports that he has been dealing with cancer treatments and receiving chemo, he then developed C diff, which has be recurrent. He then was told that the antibiotics and chemo medications were not compatible. He reports that he is no longer able to continue his chemo medications. He did become tearful during conversation. "I've always been able to do things, and I don't know how to handle this." He is requesting counseling, and was adamant about no medications for anxiety/depression. States "I can do this without medications." He reports that years ago he had met with a counselor and made statements of SI/HI that led him to a 302 admission. He states "that won't happen ever again, my mouth gets a head of me." He reports that he did 4 days on 3 [address] and discharged. He denies any current SI/HI. States "My head isn't there, and I don't want it to either." He does report using marijuana, and last use of ETOH was in 2007. He does live with his in [place], and reports that he feels safe at home. He does have access to guns, states "I don't ever get them out." He declined signing any BISHOP's at this time. He expresses desire to be discharged soon so he can work in his workshop, or drive his jeep as this is helpful when dealing with stress. He was offered distractions of crosswords and word searches, declined due to inability to read. Pt. was thankful for the visit. Our service will follow up and help with outpatient counseling request." Upon evaluation patient endorses the above information is accurate. He adamantly denied any suicidal homicidal ideation. No psychosis evident. Patient does have a angry demeanor which he attributes to both having been in the hospital with new medical problems, as well as being away from his coping mechanisms of driving his jeep and working in his wood shop, as well as being away from his daily marijuana use. He was initially very difficult to engage in conversation, but upon talking to him for half hour or so patient was able to warm up and was actually quite talkative. Patient goes on to state that he does have a psychiatric history where he was 302 and hospitalized approximately 3 years ago after making a homicidal claim which she states was just a misunderstanding. Records confirm this. Patient is adamantly against taking any medications for his mood, but is willing to take medication to assist with sleep especially being in the hospital. Allergies Allergy/AdvReac Type Severity Reaction Status Date / Time shellfish derived Allergy Intermediate HIVES Verified 04/16/21 14:57 Home Medications Medication Instructions Recorded Confirmed Type aspirin 81 mg tablet,delayed 81 mg PO QAM 09/29/19 04/16/21 History release atorvastatin 80 mg tablet 80 mg PO QPM 09/29/19 04/16/21 History lisinopril 20 mg tablet 20 mg PO QAM 09/29/19 04/16/21 History metoprolol tartrate 25 mg tablet See Rx Instructions .ROUTE .COMPLEX 09/29/19 04/16/21 History nitroglycerin 0.4 mg sublingual 0.4 mg SUBLINGUAL DIRECTED PRN 09/29/19 04/16/21 History tablet pantoprazole 40 mg tablet,delayed 40 mg PO QAM 09/29/19 04/16/21 History release acyclovir 200 mg capsule 400 mg PO BID 10/05/20 04/16/21 History calcium citrate 250 mg 1 tab PO HS 10/05/20 04/16/21 History calcium-vitamin D3 5 mcg (200 unit) tablet potassium chloride 20 mEq 20 meq PO HS 10/05/20 04/16/21 History tablet,extended release(part/cryst) (Klor-Con M) furosemide 20 mg tablet 20 mg PO 3XWK 02/21/21 04/16/21 History gabapentin 100 mg capsule 100 mg PO TID 04/16/21 04/16/21 History (Neurontin) magnesium oxide 250 mg PO BID 04/16/21 04/16/21 History Lactobacillus #2-Bifidobacter 1 cap PO BID #60 cap 04/18/21 Rx #1-S. therm 112.5 billion cell capsule fidaxomicin 200 mg tablet (Dificid) 200 mg PO BID 10 Days #20 tab 04/18/21 Rx Personal History Beliefs That Will Affect Care: None Patient History Medical History Abdominal aortic aneurysm 5cm per 03/2020 CT- under surveillance by vascular Anemia Arthritis Bilateral pneumonia hospitalized for this 07/2020 [facility] Bladder cancer dx March 2020; hx TURBT 04/27/2020 [facility] Chronic steroid use COPD (chronic obstructive pulmonary disease) no inh Coronary artery disease BMS (2014) follows with Dr. Geiger GERD (gastroesophageal reflux disease) History of COVID-19 10/05/19 > tested at [place] History of kidney stones History of myocardial infarction 2013 History of pancreatitis Hyperlipidemia Hypertension Lung nodule, multiple per , refusing work up at present time Multiple myeloma reason for dexamethasone, revlimid & velcade Surgical History History of cardiac catheterization 2013 [facility] [place] - 1 stent History of cholecystectomy History of colonoscopy History of cystoscopy History of tooth extraction Family History Other Family history non-contributory Social History Smoking Status: Former smoker Tobacco Type: Cigarettes Second Hand Exposure: No; Do You Dip or Chew Tobacco: No; Hx Alcohol Use: Yes Hx Substance Use: Yes Last Used Substance: Unknown Last Used Substance Other:: yesterday Substance Use Type Other:: marijuana once weekly Preferred Language: Singaporean Communication Ability: Effective Visual Impairment: No Limitations Pharmacy Resource Tech Required: No Beliefs That Will Affect Care: None marital status: Current Living Situation: Spouse Other Information That Helps Us Care for You: No Feels Safe at Home: Yes Safety Concerns: Feels Safe At This Time Assistive Devices: None Physical Exam Psychiatric: Orientation: alert and oriented x 3 Apperance: appropriately groomed Eye Contact: + fair eye contact Motor Behavior: no abnormal motor movements Speech: + loud speech Affect: + irritable affect Mood: + angry mood Thought Process: linear/logical thought process Thought Content: reality based without delusions Suicidal Thoughts: denies suicidal thoughts and denies suicidal plan Homicidal Thoughts: denies homicidal thoughts and denies homicidal plan Hallucinations: no auditory hallucinations and no visual hallucinations Cognition: remote memory grossly intact Estimated Intelligence: consistent with education level Insight: + fair insight Judgement: + fair judgement Vital Signs (Past 24 Hours): Last Vital Signs Temp 36.6 C 04/18/21 14:59 Pulse 79 04/18/21 14:59 Resp 20 04/18/21 14:59 BP 165/113 H 04/18/21 14:59 Pulse Ox 97 04/18/21 14:59 Results & Data (PSY) Medications Administered Aspirin (Aspirin 81 Mg Ectab) 81 mg PO QAM EZEKIEL Stop: 05/17/21 08:59 Last Admin: 04/18/21 08:31 Dose: 81 mg Documented by: [id number] Admin: 04/17/21 09:30 Dose: 81 mg Documented by: [id number] Atorvastatin Calcium (Atorvastatin 40 Mg Tab) 80 mg PO QPM EZEKIEL Stop: 05/16/21 20:59 Last Admin: 04/17/21 20:56 Dose: 80 mg Documented by: [id number] Admin: 04/16/21 21:44 Dose: 80 mg Documented by: [id number] Fidaxomicin (Fidaxomicin 200 Mg Tab) 200 mg PO BID EZEKIEL Stop: 04/27/21 08:59 Last Admin: 04/18/21 09:25 Dose: 200 mg Documented by: [id number] Admin: 04/17/21 20:55 Dose: 200 mg Documented by: [id number] Admin: 04/17/21 12:05 Dose: 200 mg Documented by: [id number] Gabapentin (Gabapentin 100 Mg Cap) 100 mg PO TID EZEKIEL Stop: 05/16/21 20:59 Last Admin: 04/18/21 13:29 Dose: 100 mg Documented by: [id number] Admin: 04/18/21 08:31 Dose: 100 mg Documented by: [id number] Admin: 04/17/21 20:55 Dose: 100 mg Documented by: [id number] Admin: 04/17/21 15:10 Dose: 100 mg Documented by: [id number] Admin: 04/17/21 09:31 Dose: 100 mg Documented by: [id number] Admin: 04/16/21 21:46 Dose: 100 mg Documented by: [id number] Heparin Sodium (Porcine) (Heparin Sod 5,000 Unit/0.5 Ml Vial) 5,000 units SQ Q8 EZEKIEL Stop: 05/16/21 21:59 Last Admin: 04/18/21 13:36 Dose: Not Given Documented by: [id number] Admin: 04/18/21 05:50 Dose: Not Given Documented by: [id number] Admin: 04/17/21 20:46 Dose: Not Given Documented by: [id number] Admin: 04/17/21 15:15 Dose: Not Given Documented by: [id number] Admin: 04/17/21 06:23 Dose: Not Given Documented by: [id number] Admin: 04/16/21 21:44 Dose: 5,000 units Documented by: [id number] Lactobacillus Acidoph/Casei/Rhamnos (Advanced Probiotic 1250 Mg Capsule) 2 cap PO DAILY EZEKIEL Stop: 05/17/21 12:34 Last Admin: 04/18/21 09:25 Dose: 2 cap Documented by: [id number] Admin: 04/17/21 16:09 Dose: 2 cap Documented by: [id number] Ondansetron HCl (Ondansetron Inj 2 Mg/Ml 2 Ml Vial) 4 mg IV Q6H PRN PRN Reason: Nausea Stop: 05/16/21 17:55 Last Admin: 04/16/21 21:47 Dose: 4 mg Documented by: [id number] Potassium Chloride (Potassium Chloride Crtab 20 Meq Tabcr) 20 meq PO HS EZEKIEL Stop: 05/16/21 20:59 Last Admin: 04/17/21 20:55 Dose: 20 meq Documented by: [id number] Admin: 04/16/21 21:46 Dose: 20 meq Documented by: [id number] Coding Level of Care Code 73404 [facility] Care Lvl 2
[2021-04-18] MEDS ORDERED: traZODone HCL 50 MG TAB PO SCH (21:00)
[2021-04-18] MEDS: ALUMINUM/MAGNESIUM SUSP 30 ML UDC PO PRN (21:29)
[2021-04-18] MEDS: POTASSIUM CHLORIDE CRTAB 20 MEQ TABCR PO SCH (21:31)
[2021-04-18] MEDS: ATORVASTATIN 40 MG TAB PO SCH (21:31)
[2021-04-18] MEDS: ACYCLOVIR 200 MG CAP PO SCH (21:32)
[2021-04-18] MEDS: ONDANSETRON INJ 2 MG/ML 2 ML VIAL IV PRN (21:32)
[2021-04-19] MEDS: HEPARIN SOD 5,000 UNIT/0.5 ML VIAL SQ SCH ×2 (05:43→14:20)
[2021-04-19] MEDS: ACYCLOVIR 200 MG CAP PO SCH (08:06)
[2021-04-19] MEDS: GABAPENTIN 100 MG CAP PO SCH ×2 (08:06→14:20)
[2021-04-19] MEDS: ADVANCED PROBIOTIC 1250 MG CAPSULE PO SCH (08:07)
[2021-04-19] MEDS: ASPIRIN 81 MG ECTAB PO SCH (08:07)
[2021-04-19] MEDS: FIDAXOMICIN 200 MG TAB PO SCH ×2 (08:17→15:55)
[2021-04-19] MEDS: ALUMINUM/MAGNESIUM SUSP 30 ML UDC PO PRN (11:07)
--- NOTE | 2021-04-19 13:44 | Hospitalist Progress Note ---
Date of Service April 19, 2021 Assessment & Plan (1) C. difficile diarrhea: Plan: recurrent C diff colitis pt recently finished long taper dose of Po vancomycin started on Difficid CT abdomen pelvis shows mild colitis, Stool C. difficile positive GI evaluation for recurrent C. difficile infection-appreciate input . Clinically patient's symptoms improved markedly after being on Dificid for 48 hours. Bowel movement decreased to once daily,(on admission had more than 10 bowel movement a day) Abdominal pain discomfort nausea has resolved Tolerating diet Appreciate input from [facility] Patient will need Difficid for 10 days followed by chronic suppressive Po vancomycin therapy Prescription for Dificid sent to patient's pharmacy. Insurance preauthorization obtained for Dificid. After completion of 10 days treatment of Dificid, patient will need to continue on p.o. vancomycin 125 mg every other day indefinitely Stop Protonix/PPI which increases risk for C. difficile infection Asked to continue to take probiotics. Limit antibiotic treatment unless absolutely necessary. Follow-up with [facility] GI clinic Patient will be discharged home today Bladder cancer: No symptoms. Multiple myeloma: No complaint of bone pain, has chronic fatigue Follows with Dr. Jono Esqueda hematology oncology Revlimid has been kept on hold secondary to recurrent C. difficile infection Acyclovir will be discontinued patient is not on any immunosuppressive treatment Given recurrent/chronic C. difficile, patient will need close follow-up with hematology oncology to reconsider whether to restart immunosuppressant Revlimid will be a safe option (2) COPD (chronic obstructive pulmonary disease): Plan: Stable, (3) Hypomagnesemia: Plan: Due to GI loss, corrected Hypokalemia: Corrected, Diarrhea has resolved. Outpatient lab: Basic metabolic panel check with next clinic visit Disposition: Patient will be discharged home today Admission and Anticipated Discharge Date Admission Date: April 16, 2021 Subjective Follow-up visit for recurrent C. difficile: Diarrhea abdominal pain has resolved, had 1 bowel movement this morning States that he is back to his usual bowel movement regimen, which is once daily No complaint of abdominal bloating, no nausea or vomiting, tolerating diet, no fever or chills No shortness of breath, walking on the hallway, Feels fine. Anxious to be discharged home today Review of Systems Review of Systems: All systems reviewed & are unremarkable except as noted in Subjective Physical Exam Constitutional: WD/WN, vitals as above Eyes: PERRL, conjunctivae normal, anicteric sclerae ENMT: external ear and nose normal, oropharynx normal Neck: trachea midline, no thyromegaly Respiratory: normal respiratory effort, lungs clear to auscultation Cardiovascular: RRR, no murmur, no edema Gastrointestinal (Abdomen): Inspection/Auscultation: abdomen normal to inspection Percussion/Palpation: abdomen soft; abdomen nontender Musculoskeletal: no cyanosis or clubbing, extremities motor strength 5/5 Skin: no rashes, warm and dry Neurologic: PERRL, EOMI, accommodation nl, no face palsy, no dysarthria Psychiatric: A+Ox3, euthymic affect Results & Data Results & Data ([facility]) Vital Signs (Past 12 Hours) Vital Signs Temp Pulse Resp BP Pulse Ox 04/19/21 07:44 36.8 C 72 16 156/96 H 98 (1) COPD (chronic obstructive pulmonary disease) COPD type: unspecified COPD Qualified Code(s): J44.9 - Chronic obstructive pulmonary disease, unspecified
--- NOTE | 2021-04-19 15:56 | Discharge Summary ---
Date of Service April 19, 2021 Admission HPI Per Admitting Provider The patient is a 71-year-old male with a history of recurrent C. difficile infection. The patient has a history of multiple myeloma and was previously on chemotherapy. He had a tooth abscess in late December that was treated with an antibiotic and subsequently developed diarrhea in early January. He was initially treated with a course of vancomycin but then required admission for recurrent symptoms in late January. At that point he was seen by Dr. Schmitz who had suggested a longer course of vancomycin with a 6-week taper. Unfortunately the patient developed recurrent symptoms and was recently readmitted to the internal medicine service. It appears that he was started on Dificid yesterday and notes that he is slowly beginning to improve. The patient's endoscopic history is notable for colonoscopy in 2016 when he was found to have a large adenomatous polyp, the patient has yet to have his surveillance exam performed. Principal Diagnosis Recurrent C diff Colitis Diarrhea due to C diff infection Discharge Exam Constitutional WD/WN, vitals as above Eyes PERRL, conjunctivae normal, anicteric sclerae ENMT external ear and nose normal, oropharynx normal Neck trachea midline, no thyromegaly Respiratory normal respiratory effort, lungs clear to auscultation Cardiovascular RRR, no murmur, no edema Gastrointestinal (Abdomen) Inspection/Auscultation: abdomen normal to inspection Percussion/Palpation: abdomen soft; abdomen nontender Musculoskeletal no cyanosis or clubbing, extremities motor strength 5/5 Skin no rashes, warm and dry Neurologic PERRL, EOMI, accommodation nl, no face palsy, no dysarthria Psychiatric A+Ox3, euthymic affect Discharge Data Allergies Allergy/AdvReac Type Severity Reaction Status Date / Time shellfish derived Allergy Intermediate HIVES Verified 04/16/21 14:57 Consultations 04/16/21 17:12 ED Decision to Admit Stat 04/17/21 07:28 Consult Gastroenterology Routine 04/17/21 22:50 Consult Psychiatry Routine Ordered Studies 04/16/21 13:50 CT abd pelvis IV con only Stat Hospital Course (1) C. difficile diarrhea: recurrent C diff colitis pt recently finished long taper dose of Po vancomycin started on Difficid CT abdomen pelvis shows mild colitis, Stool C. difficile positive GI evaluation for recurrent C. difficile infection-appreciate input . Clinically patient's symptoms improved markedly after being on Dificid for 48 hours. Bowel movement decreased to once daily,(on admission had more than 10 bowel movement a day) Abdominal pain discomfort nausea has resolved Tolerating diet Appreciate input from [facility] Patient will need Difficid for 10 days After completion of 10 days treatment of Dificid, patient will need to continue on p.o. vancomycin 125 mg every other day indefinitely Prescription for Dificid sent to patient's pharmacy. Insurance preauthorization obtained for Dificid. -Unfortunately insurance authorization information was not available till end of the day. Patient wants to be discharged home, p.m. dose of Dificid given, Will contact [facility] pharmacy in a.m. to confirm insurance authorization for Dificid Without insurance, [id number] pay for Dificid would be extremely expensive for patient(almost $5000) Discussed with GI, If Dificid is not approved by patient's insurance Other option would be sending prescription for repeat dose of 6-week of vancomycin taper followed by chronic suppressive Po vancomycin therapy /p.o. vancomycin 125 mg every other day indefinitely Stop Protonix/PPI which increases risk for C. difficile infection Asked to continue to take probiotics. Limit antibiotic treatment unless absolutely necessary. Follow[facility]up with [facility] Patient will be discharged home today Bladder cancer: No symptoms. Multiple myeloma: No complaint of bone pain, has chronic fatigue Follows with Dr. Jono Esqueda hematology oncology Revlimid has been kept on hold secondary to recurrent C. difficile infection Acyclovir will be discontinued patient is not on any immunosuppressive treatment Given recurrent/chronic C. difficile, patient will need close follow-up with hematology oncology to reconsider whether to restart immunosuppressant Revlimid will be a safe option (2) COPD (chronic obstructive pulmonary disease): Stable, (3) Hypomagnesemia: Due to GI loss, corrected Hypokalemia: Corrected, Diarrhea has resolved. Outpatient lab: Basic metabolic panel check with next clinic visit Disposition: Patient is discharged home today Total Time Total Time Spent Total Time Spent (In Minutes): 40 minutes Discharge Plan Discharge Items Patient Disposition: Home - Self-Care Reason For Visit: DIARRHEA/RECURRENT C DIFF Discharge Diagnosis: Recurrent C diff Colitis Diarrhea due to C diff infection Activity: Resume your previous activity Non-emergency contact: Primary Care Provider Call non-emergency contact if: you have any medication questions Follow-up/Referrals: Savanah Geiger DO [Primary Care Provider] - (Date & Time 04/23/2021 11:10 AM Provider Savanah Geiger DO [facility] [address] ) Joseph Curry MD [Physician] - 06/07/21 11:00 am (Follow up with GI in 3- 4 weeks ) Diet: Low Fiber Addtl Attending Provider Instructions: Please take all medications as instructed on discharge list below. you are discharged on strong antibiotic for recurrent C. difficile. Dificid 200 mg 1 tablet twice daily for 10 days. After completing 10 days of treatment: You need to be on chronic vancomycin: 125 mg every other day for long-term Take probiotics daily for long-term Follow-up with [facility] gastroenterology in clinic in 2-4 weeks Do not take Protonix-can cause increased risk of C. difficile infection: Please follow-up with your hematology oncology Dr. De La Cruz , given chronic infection/C. difficile, you may not be a candidate to resume immunosuppressive therapy/Revlimid for your multiple myeloma Please discuss with your hematology oncology regarding other treatment option. Lab work: Basic metabolic panel with next clinic visit Please call if you have any questions or problems. You can reach a [facility] hospitalist on duty at [facility] 24 hours a day by calling [phone] Pending Studies at Discharge: No Stand-Alone Forms: My [facility], Smoking Cessation Medications and DC Order Prescriptions: New Dificid 200 mg Tablet 200 mg PO BID 10 Days Qty: 20 RF: 0 Lactobac #2-Bifido #1-S. therm 112.5 billion cell capsule 1 cap PO BID Qty: 60 RF: 4 vancomycin 125 mg capsule 125 mg PO .QOD Qty: 60 RF: 3 famotidine 20 mg tablet 20 mg PO DAILY Qty: 30 RF: 2 Continued atorvastatin 80 mg tablet 80 mg PO QPM RF: 0 lisinopril 20 mg tablet 20 mg PO QAM RF: 0 aspirin 81 mg tablet,delayed release (DR/EC) 81 mg PO QAM RF: 0 nitroglycerin 0.4 mg tablet, sublingual 0.4 mg sublingual DIRECTED PRN (Reason: Chest Pain) RF: 0 metoprolol tartrate 25 mg tablet See Rx Instructions .ROUTE .COMPLEX RF: 0 potassium chloride [Klor-Con M20] 20 mEq Tablet,Er Particles/Crystals 20 meq PO HS RF: 0 calcium citrate-vitamin D3 250 mg-5 mcg (200 unit) Tablet 1 tab PO HS RF: 0 furosemide 20 mg tablet 20 mg PO 3XWK RF: 0 gabapentin [Neurontin] 100 mg capsule 100 mg PO TID RF: 0 magnesium oxide 250 mg magnesium tablet 250 mg PO BID RF: 0 Discontinued pantoprazole 40 mg tablet,delayed release (DR/EC) 40 mg PO QAM RF: 0 acyclovir 200 mg Capsule 400 mg PO BID RF: 0 Discharge Orders: Discharge Order (Routine); Ordered 04/19/21 Ordered By: Lizet Louis/Other Patient Handouts: Clostridium Difficile Infection Admission Data Admit Date/Time: 04/16/21 17:57 Attending Provider: Lizet Collier Admit Provider: Lizet Collier Primary Care Provider: Savanah Geiger Other Providers: Lizet Collier ; Janeth Gastelum ; Belem Up ; Dimitri Jackson ; Noemi Solis ; Clarence Flores ; Galindo Hernandez ; Vj Farley ; Joseph Curry ; Lashawn Nuñez ; Kaylan Schmitz ; Gloria Tobar ; Kiera Dwyer ; Sammy Denney ; Liliana Frazier ; Dr Guevara ; Winnie Johnson ; Roni Ross Other Interventions: Discharge Summary Assessment (RN) Last Done: 04/19/21 16:49
[2021-04-20] MEDS ORDERED: FIDAXOMICIN 200 MG TAB PO SCH (09:00)
--- NOTE | 2021-04-20 17:56 | Communication Note ---
Date of Service: April 20, 2021 reached out to patient's pharmacy SHANTA Villegas Dificid 200 mg twice daily for 10 days, was approved by patient's secondary insurance, 10 days of treatment co-pay $9 Patient is asked to take continue to take Dificid for 10 days, then vancomycin 125 mg every other day indefinitely as instructed. He will be followed up by [facility] gastroenterology. Lizet Collier MD
== END 2021-04-19 17:45 | disposition home or self-care (01) | DRG 372 ==
LOC: ED 12:32 → 2W 17:57

== ENCOUNTER 2021-05-18 15:37 | Inpatient (IN) ==
[2021-05-18] MEDS ORDERED: ONDANSETRON INJ 2 MG/ML 2 ML VIAL IV STA (16:32)
--- NOTE | 2021-05-18 16:36 | Emergency Department Note ---
Impression & Plan Acute hyperkalemia, Weakness, ARF (acute renal failure), Nausea ED Provider Note NAME: JESSICA BILLY AGE: 71 SEX: M : 1950 ARRIVES VIA: Walk-In INFORMANT: [Patient] ED PROVIDER(S): [Barrington Brown MD] CHIEF COMPLAINT: Weakness, nausea HISTORY OF PRESENT ILLNESS: The patient is a 71-year-old male who has not felt well for about 1 weeks timeframe. He feels fatigued, weak. He is nauseated. He has had some dry heaving. No real abdominal pain. The patient states that he has not had shortness of breath. He has had some occasional mild chest pain. He has had s ome sweating. No urinary complaints. No diarrhea. The patient spoke to his doctor's office, he was referred to the ED for possible dehydration. Patient does have a history of multiple myeloma. He also states that he had C. difficile a month ago, he did recover from this and has had testing confirming clearance of the C. difficile infection. The patient is vaccinated against COVID-19. REVIEW OF SYSTEMS: See HPI for pertinent positives and negatives. A total of ten systems were reviewed and were otherwise negative. PMHx/PSHx: See Below SOCIAL HISTORY: See Below. PHYSICAL EXAM: GENERAL: Patient is in no acute distress. Thin and somewhat frail. HEENT: No acute trauma, normocephalic atraumatic, mucous membranes moist, no nasal congestion, no scleral icterus. NECK: No stridor, no adenopathy, no meningismus, trachea is midline. LUNGS: Clear to auscultation bilaterally, no wheeze, no rhonchi, breath sounds equal. HEART: Without murmurs gallops or rubs, regular rate and rhythm. ABDOMEN: Soft, nontender, bowel sounds positive, no hernias, no peritonitis. EXTREMITIES: No cyanosis or edema, full range of motion of all the joints without pain or difficulty, no signs for acute trauma. NEUROLOGIC: Oriented x 3, no acute motor or sensory deficits, no focal weakness. SKIN: No rash, no jaundice, no diaphoresis. DIFFERENTIAL DIAGNOSIS: Infection, dehydration, metabolic abnormality, COVID-19, hypo/hyperglycemia, electrolyte disturbance, anemia, hypoxia, cardiac sources, intracerebral event, toxicologic issues, stroke, TIA, as well as other pathologies. EMERGENCY DEPARTMENT COURSE/PROCEDURES: ECG: Indication was weakness. The ECG shows a sinus bradycardia with a rate of 54. There is no ST elevation, no PVCs. His T waves are quite peaked. The QTc is 411. Continuous Cardiac Monitoring: An order was placed for continuous cardiac monitoring. The monitor shows a rate of 60 with normal sinus rhythm. Critical Care Note: I have personally spent 53 minutes of critical care time in the direct management of this patient. This includes bedside care, inte rpretation of diagnostic studies, and testing, discussion with consultants, patient, and family members, and other required patient management activities. This 53 minutes is in excess of all separately billable procedures. MEDICAL DECISION MAKING: There is a mild leukocytosis, this could be consistent with infection or the stress of his situation. A mild anemia was noted. The patient has a history of anemia. There was a normal platelet count. Potassium was quite high at 6.9. Potassium value was a critical value. Creatinine was elevated consistent with some acute renal failure. No worrisome liver enzyme elevation. The patient appeared to be in a euthyroid state. ECG showed a sinus bradycardia with some peaked T waves consistent with his hyperkalemia. No ST elevation. Cardiac enzyme testing x1 was not consistent with acute cardiac injury. Urinalysis does not show infection. Covid testing returned negative. Chest film shows some chronic findings, no pneumonia or CHF. Abdominal and pelvis CT showed some chronic findings, there was no urinary obstruction. Lactic acid level was not elevated making sepsis less likely. The patient was aggressively managed given the high potassium. He received IV saline, 2 L. He was given an albuterol neb. He received IV glucose and then IV insulin. He was given IV Zofran. The patient is doing well. He does require a hospital stay for his acute renal failure, his hyperkalemia. His potassium was high enough to cause some EKG changes. I did speak with the patient and case resource manager. The on-call hospitalist was consulted. Past Med/Surg History Medical History Abdominal aortic aneurysm 5cm per 03/2020 CT- under surveillance by vascular Anemia Arthritis Bilateral pneumonia hospitalized for this 07/2020 [facility] Bladder cancer dx March 2020; hx TURBT 04/27/2020 [facility] Chronic steroid use COPD (chronic obstructive pulmonary disease) no inh Coronary artery disease BMS (2014) follows with Dr. Geiger GERD (gastroesophageal reflux disease) History of COVID-19 10/05/19 > tested at [facility] History of kidney stones History of myocardial infarction 2013 History of pancreatitis Hyperlipidemia Hypertension Lung nodule, multiple per , refusing work up at present time Multiple myeloma reason for dexamethasone, revlimid & velcade Surgical History History of cardiac catheterization 2013 [facility]- [place] - 1 stent History of cholecystectomy History of colonoscopy History of cystoscopy History of tooth extraction Family History Other Heart disease Social History Smoking Status: Former smoker Tobacco Type: Cigarettes Years Smoked: 40; Smoking End Date: 2019; Second Hand Exposure: Yes; Do You Dip or Chew Tobacco: No; Tobacco Cessation Education Requested by Patient: No Hx Alcohol Use: No Hx Substance Use: Yes Last Used Substance: Days (ago) Last Used Substance Other:: yesterday Substance Use Type Other:: marijuana once weekly Preferred Language: Japanese Communication Ability: Effective Visual Impairment: No Limitations Naturalist Required: No Beliefs That Will Affect Care: None marital status: Current Living Situation: Spouse Other Information That Helps Us Care for You: No Feels Safe at Home: Yes Safety Concerns: Feels Safe At This Time Assistive Devices: None Allergies Allergies Allergy/AdvReac Type Severity Reaction Status Date / Time shellfish derived Allergy Intermediate HIVES Verified 05/18/21 17:59 Home Meds Home Medications Medication Instructions Recorded Confirmed aspirin 81 mg tablet,delayed 81 mg PO QAM 09/29/19 05/18/21 release atorvastatin 80 mg tablet 80 mg PO QPM 09/29/19 05/18/21 lisinopril 20 mg tablet 20 mg PO QAM 09/29/19 05/18/21 metoprolol tartrate 25 mg tablet See Rx Instructions .ROUTE .COMPLEX 09/29/19 05/18/21 nitroglycerin 0.4 mg sublingual 0.4 mg SUBLINGUAL DIRECTED PRN 09/29/19 05/18/21 tablet calcium citrate 250 mg 1 tab PO HS 10/05/20 05/18/21 calcium-vitamin D3 5 mcg (200 unit) tablet furosemide 20 mg tablet 20 mg PO MOWEFR@0900 02/21/21 05/18/21 magnesium oxide 250 mg PO BID 04/16/21 05/18/21 Lactobacillus #2-Bifidobacter 1 cap PO DAILY 05/18/21 05/18/21 #1-S. therm 112.5 billion cell capsule Previous Rx's Medication Instructions Recorded famotidine 20 mg tablet 20 mg PO DAILY #30 tab 04/19/21 vancomycin 125 mg capsule 125 mg PO .QOD #60 cap 04/19/21 Results & Data (ED) Vital Signs Vital Signs - 24 hr 05/18/21 16:07 05/18/21 16:30 05/18/21 17:17 Temperature 36.8 C Temperature Source Temporal Artery Scan Pulse Rate 96 H 82 58 L Pulse Rate [Apical] Pulse Rate from SpO2 Sensor 82 Respiratory Rate 20 19 16 Respiratory Effort / Characteristics Non-Labored Spontaneous Respiratory Depth Normal Blood Pressure 97/58 L 142/116 H Blood Pressure Mean 71 124 Blood Pressure Position Sitting Pulse Oximetry 99 98 Oxygen Delivery Method Room Air Room Air Sepsis Recent Fever Within 48 Hours No Sepsis New/Unexplained Change in Mental Status N/A Sepsis Action Taken by Nursing No Action Required 05/18/21 17:31 05/18/21 18:02 05/18/21 18:15 Temperature Temperature Source Pulse Rate 60 64 60 Pulse Rate [Apical] Pulse Rate from SpO2 Sensor Respiratory Rate 22 17 15 Respiratory Effort / Characteristics Respiratory Depth Blood Pressure 115/80 Blood Pressure Mean 91 Blood Pressure Position Pulse Oximetry Oxygen Delivery Method Sepsis Recent Fever Within 48 Hours Sepsis New/Unexplained Change in Mental Status Sepsis Action Taken by Nursing 05/18/21 18:17 05/18/21 18:30 Temperature Temperature Source Pulse Rate 65 Pulse Rate [Apical] 65 Pulse Rate from SpO2 Sensor Respiratory Rate 14 22 Respiratory Effort / Characteristics Non-Labored Spontaneous Respiratory Depth Blood Pressure Blood Pressure Mean Blood Pressure Position Pulse Oximetry Oxygen Delivery Method Room Air Sepsis Recent Fever Within 48 Hours Sepsis New/Unexplained Change in Mental Status Sepsis Action Taken by [facility] Medications Current Medication List: was personally reviewed by me Laboratory Data Attestation: I reviewed the patient's lab results. Result diagrams: 05/18/21 17:12 05/18/21 20:41 Lab Results 05/18/21 05/18/21 05/18/21 Range/Units 17:08 17:12 17:12 WBC 11.35 H (4.8-10.8) K/uL RBC 4.17 L (4.7-6.1) M/uL Hgb 12.6 L (14.0-18.0) g/dL Hct 38.9 L (42-52) % MCV 93.3 (80-100) fL MCH 30.2 (25-34) pg MCHC 32.4 (32-36) g/dL RDW Std Deviation 50.6 H (36.4-46.3) fL RDW Coeff of Andrew 14.9 H (11.5-14.5) % Plt Count 272 (130-400) K/uL MPV 10.8 H (7.4-10.4) fL Immature Gran % (Auto) 0.4 % Neut % (Auto) 76.1 % Lymph % (Auto) 14.8 % [place] % (Auto) 6.5 % Eos % (Auto) 2.0 % Baso % (Auto) 0.2 % Neut # (Auto) 8.64 H (1.4-6.5) K/uL Lymph # (Auto) 1.68 (1.2-3.4) K/uL [place] # (Auto) 0.74 H (0.11-0.59) K/uL Eos # (Auto) 0.23 (0-0.5) K/uL Baso # (Auto) 0.02 (0-0.2) K/uL Immature Gran # (Auto) 0.04 H (0.00-0.02) K/uL Sodium 134 L (136-145) mmol/L Potassium 6.9 H* (3.5-5.1) mmol/L Chloride 106 (98-107) mmol/L Carbon Dioxide 21 (21-32) mmol/L Anion Gap 7.0 (3-11) BUN 57 H (7-18) mg/dl Creatinine 2.60 H (0.6-1.4) mg/dl Est Cr Clr Drug Dosing 25.9 ml/min Est GFR ( Amer) 27.9 ml/min Est GFR (Non-Af Amer) 24.1 ml/min BUN/Creatinine Ratio 22.0 H (10-20) Glucose 95 (70-99) mg/dl Lactate 1.1 (0.4-2.0) mmol/L Calcium 9.4 (8.5-10.1) mg/dl Magnesium 2.7 H (1.8-2.4) mg/dl Total Bilirubin 0.5 (0.2-1) mg/dl AST 18 (15-37) U/L ALT 32 (12-78) U/L Alkaline Phosphatase 124 H (45-117) U/L Troponin I < 0.015 (0-0.045) ng/ml Total Protein 8.0 (6.4-8.2) gm/dl Albumin 4.0 (3.4-5.0) gm/dl Globulin 4.0 (2.5-4.0) gm/dl Albumin/Globulin Ratio 1.0 (0.9-2) TSH 1.710 (0.300-4.500) uIu/ml COVID-19 Eval Order SARS-CoV-2 (PCR) (Negative) 05/18/21 05/18/21 Range/Units 17:27 17:27 WBC (4.8-10.8) K/uL RBC (4.7-6.1) M/uL Hgb (14.0-18.0) g/dL Hct (42-52) % MCV (80-100) fL MCH (25-34) pg MCHC (32-36) g/dL RDW Std Deviation (36.4-46.3) fL RDW Coeff of Andrew (11.5-14.5) % Plt Count (130-400) K/uL MPV (7.4-10.4) fL Immature Gran % (Auto) % Neut % (Auto) % Lymph % (Auto) % [place] % (Auto) % Eos % (Auto) % Baso % (Auto) % Neut # (Auto) (1.4-6.5) K/uL Lymph # (Auto) (1.2-3.4) K/uL [place] # (Auto) (0.11-0.59) K/uL Eos # (Auto) (0-0.5) K/uL Baso # (Auto) (0-0.2) K/uL Immature Gran # (Auto) (0.00-0.02) K/uL Sodium (136-145) mmol/L Potassium (3.5-5.1) mmol/L Chloride (98-107) mmol/L Carbon Dioxide (21-32) mmol/L Anion Gap (3-11) BUN (7-18) mg/dl Creatinine (0.6-1.4) mg/dl Est Cr Clr Drug Dosing ml/min Est GFR ( Amer) ml/min Est GFR (Non-Af Amer) ml/min BUN/Creatinine Ratio (10-20) Glucose (70-99) mg/dl Lactate (0.4-2.0) mmol/L Calcium (8.5-10.1) mg/dl Magnesium (1.8-2.4) mg/dl Total Bilirubin (0.2-1) mg/dl AST (15-37) U/L ALT (12-78) U/L Alkaline Phosphatase (45-117) U/L Troponin I (0-0.045) ng/ml Total Protein (6.4-8.2) gm/dl Albumin (3.4-5.0) gm/dl Globulin (2.5-4.0) gm/dl Albumin/Globulin Ratio (0.9-2) TSH (0.300-4.500) uIu/ml COVID-19 Eval Order Covid19 at [facility] SARS-CoV-2 (PCR) NEGATIVE (Negative) Administered Medications Atorvastatin Calcium (Atorvastatin 40 Mg Tab) 80 mg PO QPM EZEKIEL Stop: 06/17/21 21:36 Last Admin: 05/18/21 23:00 Dose: 80 mg Documented by: [id number] Heparin Sodium (Porcine) (Heparin Sod 5,000 Unit/0.5 Ml Vial) 5,000 units SQ Q8 EZEKIEL Stop: 06/17/21 21:59 Last Admin: 05/18/21 23:01 Dose: 5,000 units Documented by: [id number] Sodium Chloride (Nss 1000ml) 1,000 mls @ 100 mls/hr IV .Q10H ONE Stop: 05/19/21 09:25 Last Admin: 05/18/21 23:37 Dose: 100 mls/hr Documented by: [id number] Metoprolol Tartrate (Metoprolol Tartrate 25 Mg Tab) 25 mg PO HS EZEKIEL Stop: 06/17/21 21:44 Last Admin: 05/18/21 23:00 Dose: 25 mg Documented by: [id number] Discontinued Medications Albuterol (Albuterol 0.083% Nebu Soln 3 Ml Vial) 2.5 mg NEB NOW STA Stop: 05/18/21 17:50 Last Admin: 05/18/21 18:09 Dose: 2.5 mg Documented by: [id number] Dextrose (Dextrose 50% 50 Ml Syringe) 50 ml IV NOW ONE Stop: 05/18/21 17:50 Last Admin: 05/18/21 18:01 Dose: 50 ml Documented by: [id number] Sodium Chloride (Nss 1000ml) 1,000 mls @ 999 mls/hr IV .Q1H1M EZEKIEL Stop: 05/18/21 17:45 Last Infusion: 05/18/21 18:14 Dose: 0 mls/hr Documented by: [id number] Admin: 05/18/21 17:12 Dose: 999 mls/hr Documented by: [id number] Sodium Chloride (Nss 1000ml) 1,000 mls @ 999 mls/hr IV .Q1H1M ONE Stop: 05/18/21 19:00 Last Infusion: 05/18/21 18:51 Dose: 0 mls/hr Documented by: [id number] Admin: 05/18/21 18:06 Dose: 999 mls/hr Documented by: [id number] Sodium Chloride (Nss 1000ml) 1,000 mls @ 500 mls/hr IV .Q2H ONE Stop: 05/18/21 22:04 Last Infusion: 05/18/21 23:23 Dose: 0 mls/hr Documented by: [id number] Admin: 05/18/21 21:15 Dose: 500 mls/hr Documented by: [id number] Insulin Human Regular (Novolin-R Insulin Per Unit Charge) 10 units IV NOW STA Stop: 05/18/21 17:50 Last Admin: 05/18/21 18:01 Dose: 10 units Documented by: [id number] Cosigned by: [id number] Lorazepam (Lorazepam 0.5 Mg Tab) 0.25 mg PO NOW STA Stop: 05/18/21 23:45 Last Admin: 05/19/21 00:18 Dose: 0.25 mg Documented by: [id number] Ondansetron HCl (Ondansetron Inj 2 Mg/Ml 2 Ml Vial) 4 mg IV NOW STA Stop: 05/18/21 16:33 Last Admin: 05/18/21 17:12 Dose: 4 mg Documented by: [id number] Imaging Data Radiologist's Impression: Chest X-Ray 05/18/21 16:32 XR chest 1V portable CLINICAL HISTORY: weakness COMPARISON STUDY: Chest radiograph February 21, 2021. FINDINGS: Lung volumes are normal. There is no pneumothorax. There is a trace right pleural effusion. Skinfold projects over the left chest. Mild cardiomegaly is unchanged. There is no evidence for pulmonary edema. Several lytic expansile rib lesions are again noted. IMPRESSION: 1. Trace right pleural effusion. 2. Mild cardiomegaly without evidence for pulmonary edema. 3. Redemonstration of several lytic rib lesions, better depicted on prior CT. These are suspicious for a neoplastic process. ACT 112: Negative or not required by law. Electronically signed by: Chandrakant Hdz M.D. 05/18/2021 5:03 PM Abdomen/Pelvis CT 05/18/21 17:51 CT OF THE ABDOMEN AND PELVIS WITHOUT CONTRAST CLINICAL HISTORY: Nausea and vomiting. COMPARISON STUDY: CT of the abdomen and pelvis April 16, 2021. TECHNIQUE: Axial images of the abdomen and pelvis were obtained without IV co ntrast. Images were reviewed in the axial, sagittal, and coronal planes. Automated exposure control was utilized for the study. A dose lowering technique was utilized adhering to the principles of ALARA. FINDINGS: A lytic expansile lesion within the posterior left 10th rib is again noted. This was shown on prior examination. Evaluation of the abdomen and pelvis is suboptimal on this unenhanced exam. There is no biliary ductal dilatation status post cholecystectomy. Lateral segment hepatic cyst is noted. There is no evidence for a bowel obstruction. No bowel wall thickening is identified on this unenhanced examination. There is no hydronephrosis. Bilateral renal lesions were better depicted on prior contrast enhanced CT of April 16, 2021. An infrarenal abdominal aortic aneurysm, measuring 5 x 4.5 cm is similar to prior CT of April 16, 2021. 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 Right common iliac artery measures 2.9 cm. Left common iliac artery measures 2.4 cm. 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 Mild dilatation of both common femoral arteries is again noted. There is no evidence for rupture. Sigmoid diverticulosis is noted without evidence for acute diverticulitis. IMPRESSION: 1. No acute process within the abdomen or pelvis on unenhanced exam. 2. No change in a 5 cm infrarenal abdominal aortic aneurysm since CT of April 16, 2021. 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 No rupture. Nonemergent Vascular surgery consultation if not already obtained is recommended. 3. No bowel obstruction. 4. Redemonstration of a lytic lesion within the posterior left 10th rib. This is suspicious for multiple myeloma or metastatic disease. ACT 112: Negative or not required by law. Electronically signed by: Chandrakant Hdz M.D. 05/18/2021 8:16 PM Discharge Plan Visit Data Chief Complaint: Abdominal Pain Stated Complaint: WEAKNESS, NAUSEA, ABD PAIN ED Provider: Barrington Brown Discharge Problem: Acute hyperkalemia, Weakness, ARF (acute renal failure), Nausea Patient Disposition: Admitted As Inpatient Condition: Fair Discharge Instructions Interventions: ED Discharge Assessment Last Done: 05/18/21 20:11
[2021-05-18] MEDS ORDERED: SODIUM CHLORIDE 0.9% 1000ML 1,000 ML IV SCH (16:45)
--- NOTE | 2021-05-18 17:05 | XRay Report ---
XR chest 1V portable CLINICAL HISTORY: weakness COMPARISON STUDY: Chest radiograph February 21, 2021. FINDINGS: Lung volumes are normal. There is no pneumothorax. There is a trace right pleural effusion. Skinfold projects over the left chest. Mild cardiomegaly is unchanged. There is no evidence for pulm onary edema. Several lytic expansile rib lesions are again noted. IMPRESSION: 1. Trace right pleural effusion. 2. Mild cardiomegaly without evidence for pulmonary edema. 3. Redemonstration of several lytic rib lesions, better depicted on prior CT. These are suspicious fo r a neoplastic process. ACT 112: Negative or not required by law. Electronically signed by: Chandrakant Hdz M.D. 05/18/2021 5:03 PM
[2021-05-18 17:21] LABS: Basophils # (auto) 0.02 K/uL (0-0.2); Basophils % (auto) 0.2 %; Eosinophils # (auto) 0.23 K/uL (0-0.5); Hematocrit (blood only) 38.9 % (42-52); Hemoglobin 12.6 g/dL (14.0-18.0); Immature Granulocytes # (auto) 0.04 K/uL (0.00-0.02); Immature Granulocytes % (auto) 0.4 %; Lymphocytes # (auto) 1.68 K/uL (1.2-3.4); Lymphocytes % (auto) 14.8 %; Mean Corpuscular Hemoglobin 30.2 pg (25-34); Mean Corpuscular Hgb Conc 32.4 g/dL (32-36); Mean Corpuscular Volume 93.3 fL (80-100); Mean Platelet Volume 10.8 fL (7.4-10.4); Monocytes # (auto) 0.74 K/uL (0.11-0.59); Monocytes % (auto) 6.5 %; Neutrophils # (auto) 8.64 K/uL (1.4-6.5); Neutrophils % (auto) 76.1 %; Platelet Count 272 K/uL (130-400); RDW Coefficient of Variation 14.9 % (11.5-14.5); RDW Standard Deviation 50.6 fL (36.4-46.3); Red Blood Count 4.17 M/uL (4.7-6.1); White Blood Count 11.35 K/uL (4.8-10.8)
[2021-05-18 17:40] LABS: Alanine Aminotransferase 32 U/L (12-78); Aspartate Aminotransferase 18 U/L (15-37); Blood Urea Nitrogen 57 mg/dl (7-18); Calcium 9.4 mg/dl (8.5-10.1); Carbon Dioxide 21 mmol/L (21-32); Chloride 106 mmol/L (98-107); Creatinine Clr Calc Pharmacy 25.9 ml/min; Est GFR (African American) 27.9 ml/min; Est GFR (Non-African American) 24.1 ml/min; Glucose 95 mg/dl (70-99); Magnesium 2.7 mg/dl (1.8-2.4); Potassium 6.9 mmol/L (3.5-5.1); Sodium 134 mmol/L (136-145)
[2021-05-18] MEDS ORDERED: NovoLIN-R INSULIN PER UNIT CHARGE IV STA (17:49)
[2021-05-18] MEDS ORDERED: DEXTROSE 50% 50 ML SYRINGE IV ONE (17:49)
[2021-05-18] MEDS ORDERED: ALBUTEROL 0.083% NEBU SOLN 3 ML VIAL NEB STA (17:49)
[2021-05-18 17:50] LABS: Alkaline Phosphatase 124 U/L (45-117); Bilirubin,Total 0.5 mg/dl (0.2-1); Troponin I < 0.015 ng/ml (0-0.045)
[2021-05-18] MEDS ORDERED: SODIUM CHLORIDE 0.9% 1000ML 1,000 ML IV ONE ×3 (18:00→23:26)
--- NOTE | 2021-05-18 20:17 | CT Scan Report ---
CT OF THE ABDOMEN AND PELVIS WITHOUT CONTRAST CLINICAL HISTORY: Nausea and vomiting. COMPARISON STUDY: CT of the abdomen and pelvis April 16, 2021. TECHNIQUE: Axial images of the abdomen and pelvis were obtained without IV contrast. Images were revi ewed in the axial, sagittal, and coronal planes. Automated exposure control was utilized for the lidya dy. A dose lowering technique was utilized adhering to the principles of ALARA. FINDINGS: A lytic expansile lesion within the posterior left 10th rib is again noted. This was shown on prior examination. Evaluation of the abdomen and pelvis is suboptimal on this unenhanced exam. There is no biliary ducta l dilatation status post cholecystectomy. Lateral segment hepatic cyst is noted. There is no evidence for a bowel obstruction. No bowel wall thickening is identified on this unenhanced examination. Ther e is no hydronephrosis. Bilateral renal lesions were better depicted on prior contrast enhanced CT of April 16, 2021. An infrarenal abdominal aortic aneurysm, measuring 5 x 4.5 cm is similar to prior CT of April 16, 2021. 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 Right common iliac artery measures 2.9 cm. Left common iliac artery measures 2.4 cm. 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 Mild dilatation of both commo n femoral arteries is again noted. There is no evidence for rupture. Sigmoid diverticulosis is noted without evidence for acute diverticulitis. IMPRESSION: 1. No acute process within the abdomen or pelvis on unenhanced exam. 2. No change in a 5 cm infrarenal abdominal aortic aneurysm since CT of April 16, 2021. 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 No rupture. Nonemergent Vascular surgery consultation if not already obta ined is recommended. 3. No bowel obstruction. 4. Redemonstration of a lytic lesion within the posterior left 10th rib. This is suspicious for multi ple myeloma or metastatic disease. ACT 112: Negative or not required by law. Electronically signed by: Chandrakant Hdz M.D. 05/18/2021 8:16 PM
--- NOTE | 2021-05-18 21:32 | History & Physical Report ---
Date of Service May 18, 2021 Assessment & Plan (1) Hyperkalemia: Plan: This is a 71-year-old male with PMH of multiple myeloma, bladder cancer, recurrent C. difficile infections, COPD, tobacco use, AAA and other medical problems listed below who presents due to generalized weakness and nausea over the past 9 days. Hyperkalemia first noted on 05/07 at 5.4, now 6.9 In setting of acute renal failure Given IV insulin, D50, albuterol and 2 L NSS in ED - repeat BMP shows improved K to 5.1 Initial EKG with peaked T waves but no acute ST changes, no chest pain CT abd/pelvis with no acute process within the abdomen or pelvis on unenhanced exam Monitor on telemetry (2) Acute renal failure: Plan: Cr 2.60 in setting of dehydration, ongoing vancomycin for recurrent c diff Baseline Cr ~1 No known renal disease at baseline Urine Na, Cr pending Cr improved with 2.23 with IV fluids Routine nephrology consult Repeat BMP in AM (3) Multiple myeloma: Plan: Follows with Dr. De La Cruz. Treatment has been held for past few months due to recurrent C diff (4) Recurrent Clostridioides difficile diarrhea: Plan: Recent negative OP test on 05/07 On fdc PO vanco Q2D (5) COPD (chronic obstructive pulmonary disease): Plan: At baseline. 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 No rupture Nonemergent Vascular surgery consultation if not already obtained is recommended (8) Hypertension: Plan: Holding home lasix and lisinopril in setting of BREANN. Continue Lopressor DVT Ppx: SQ heparin Code status: FULL PCP: Oswaldo Geiger Dispo: Admitted to PCU. Plan to return home once medically stable. Patient seen in collaboration with Dr. Rosario. Please see addendum. Admission and Anticipated Discharge Date Admission Date: May 18, 2021 History of Present Illness Chief Complaint: Nausea Primary Care Provider: Savanah Kopinski, DO This is a 71-year-old male with PMH of multiple myeloma, bladder cancer, recurrent C. difficile infections, COPD, tobacco use, AAA and other medical prob lems listed below who presents due to generalized weakness and nausea over the past 9 days. Patient was seen by PCP in clinic with concerns for dehydration and was found to have elevated potassium. Was encouraged to come in to ER for IV hydration on 05/06 but patient elected to not come in. Has continued to feel more nauseated of the past few days. Decreased oral intake. Negative C. difficile lab work on 05/07/2021 and has been having pudding consistency stool. Still taking vancomycin every other day. Also endorsing numbness in hands earlier today that is since resolved. Denies any fever, chills, lightheadedness, headache, chest pain, shortness of breath, vomiting, abdominal pain, dysuria. Has chronic back pain and site of known lytic lesion. Unfortunately has been unable to continue multiple myeloma treatment due to recurrent C. difficile. Also with history of bladder cancer due for repeat cystoscopy. Allergies Allergy/AdvReac Type Severity Reaction Status Date / Time shellfish derived Allergy Intermediate HIVES Verified 05/18/21 17:59 Home Medications Medication Instructions Recorded Confirmed Type aspirin 81 mg tablet,delayed 81 mg PO QAM 09/29/19 05/18/21 History release atorvastatin 80 mg tablet 80 mg PO QPM 09/29/19 05/18/21 History lisinopril 20 mg tablet 20 mg PO QAM 09/29/19 05/18/21 History metoprolol tartrate 25 mg tablet See Rx Instructions .ROUTE .COMPLEX 09/29/19 05/18/21 History nitroglycerin 0.4 mg sublingual 0.4 mg SUBLINGUAL DIRECTED PRN 09/29/19 05/18/21 History tablet calcium citrate 250 mg 1 tab PO HS 10/05/20 05/18/21 History calcium-vitamin D3 5 mcg (200 unit) tablet furosemide 20 mg tablet 20 mg PO MOWEFR@0900 02/21/21 05/18/21 History magnesium oxide 250 mg PO BID 04/16/21 05/18/21 History famotidine 20 mg tablet 20 mg PO DAILY #30 tab 04/19/21 05/18/21 Rx vancomycin 125 mg capsule 125 mg PO .QOD #60 cap 04/19/21 05/18/21 Rx Lactobacillus #2-Bifidobacter 1 cap PO DAILY 05/18/21 05/18/21 History #1-S. therm 112.5 billion cell capsule Past Med/Surg History Medical History Abdominal aortic aneurysm 5cm per 03/2020 CT- under surveillance by vascular Anemia Arthritis Bilateral pneumonia hospitalized for this 07/2020 [facility] Bladder cancer dx March 2020; hx TURBT 04/27/2020 [facility] Chronic steroid use COPD (chronic obstructive pulmonary disease) no inh Coronary artery disease BMS (2014) follows with Dr. Geiger GERD (gastroesophageal reflux disease) History of COVID-19 10/05/19 > tested at [place] History of kidney stones History of myocardial infarction 2013 History of pancreatitis Hyperlipidemia Hypertension Lung nodule, multiple per , refusing work up at present time Multiple myeloma reason for dexamethasone, revlimid & velcade Surgical History History of cardiac catheterization 2013 [facility] [place] - 1 stent History of cholecystectomy History of colonoscopy History of cystoscopy History of tooth extraction Family History Other Heart disease Social History Smoking Status: Former smoker Tobacco Type: Cigarettes Years Smoked: 40; Smoking End Date: 2019; Second Hand Exposure: Yes; Do You Dip or Chew Tobacco: No; Tobacco Cessation Education Requested by Patient: No Hx Alcohol Use: No Hx Substance Use: Yes Last Used Substance: Days (ago) Last Used Substance Other:: yesterday Substance Use Type Other:: marijuana once weekly Preferred Language: Portuguese Communication Ability: Effective Visual Impairment: No Limitations Policeman Required: No Beliefs That Will Affect Care: None marital status: Current Living Situation: Spouse Other Information That Helps Us Care for You: No Feels Safe at Home: Yes Safety Concerns: Feels Safe At This Time Assistive Devices: None Review of Systems Review of Systems: At least ten systems reviewed and negative except as noted in the HPI. Physical Exam Physical Exam: General Appearance: appears chronically ill, vitals as above, NAD, sitting up in bed, conversing easily Head: normocephalic, atraumatic Eyes: normal inspection, PERRL, conjunctivae normal, anicteric sclerae ENT: external ear and nose normal, oropharynx normal Neck: normal visual inspection, trachea midline, no thyromegaly Respiratory: normal respiratory effort, lungs clear to auscultation, no wheeze, rales, rhonchi. No accessory muscle use Cardiovascular: regular rate, rhythm, no murmur, normal peripheral pulses, no BLE edema. Vessels: no JVD Chest: normal inspection of chest Abdomen/GI: normal bowel sounds, soft, nontender, no hepatosplenomegaly Extremities/Musculoskeletal: no cyanosis or clubbing, extremities motor strength 5/5 Neurologic: PERRL, EOMI, accommodation nl, no face palsy, no dysarthria, CN's II-XI intact bilaterally and moves all extremities Psychiatric: A+Ox3, euthymic affect Skin: no rashes, normal color, warm/dry Results & Data Results & Data ([facility]) Vital Signs (Past 12 Hours) Vital Signs Temp Pulse Pulse Resp BP BP Pulse Ox 05/18/21 20:26 36.6 C 77 20 148/83 H 05/18/21 19:01 73 20 101/75 05/18/21 18:30 65 22 05/18/21 18:17 65 14 05/18/21 18:15 60 15 05/18/21 18:02 64 17 05/18/21 17:31 60 22 115/80 05/18/21 17:17 58 L 16 05/18/21 16:30 82 19 142/116 H 98 05/18/21 16:07 36.8 C 96 H 20 97/58 L 99 Laboratory Results Short CBC 05/18/21 Range/Units 17:12 WBC 11.35 H (4.8-10.8) K/uL Hgb 12.6 L (14.0-18.0) g/dL Hct 38.9 L (42-52) % Plt Count 272 (130-400) K/uL BMP 05/18/21 05/18/21 17:12 20:41 Sodium 134 L 138 Potassium 6.9 H* 5.1 D Chloride 106 109 H Carbon Dioxide 21 21 BUN 57 H 53 H Creatinine 2.60 H 2.23 H D Glucose 95 89 Calcium 9.4 8.9 Cardiac Enzymes 05/18/21 Range/Units 17:12 Troponin I < 0.015 (0-0.045) ng/ml Liver Function 05/18/21 Range/Units 17:12 Total Bilirubin 0.5 (0.2-1) mg/dl AST 18 (15-37) U/L ALT 32 (12-78) U/L Alkaline Phosphatase 124 H (45-117) U/L Albumin 4.0 (3.4-5.0) gm/dl Diagnostic Findings Chest X-Ray 05/18/21 16:32 XR chest 1V portable CLINICAL HISTORY: weakness COMPARISON STUDY: Chest radiograph February 21, 2021. FINDINGS: Lung volumes are normal. There is no pneumothorax. There is a trace right pleural effusion. Skinfold projects over the left chest. Mild cardiomegaly is unchanged. There is no evidence for pulmonary edema. Several lytic expansile rib lesions are again noted. IMPRESSION: 1. Trace right pleural effusion. 2. Mild cardiomegaly without evidence for pulmonary edema. 3. Redemonstration of several lytic rib lesions, better depicted on prior CT. These are suspicious for a neoplastic process. ACT 112: Negative or not required by law. Electronically signed by: Chandrakant Hdz M.D. 05/18/2021 5:03 PM Abdomen/Pelvis CT 05/18/21 17:51 CT OF THE ABDOMEN AND PELVIS WITHOUT CONTRAST CLINICAL HISTORY: Nausea and vomiting. COMPARISON STUDY: CT of the abdomen and pelvis April 16, 2021. TECHNIQUE: Axial images of the abdomen and pelvis were obtained without IV contrast. Images were reviewed in the axial, sagittal, and coronal planes. Automated exposure control was utilized for the study. A dose lowering technique was utilized adhering to the principles of ALARA. FINDINGS: A lytic expansile lesion within the posterior left 10th rib is again noted. This was shown on prior examination. Evaluation of the abdomen and pelvis is suboptimal on this unenhanced exam. There is no biliary ductal dilatation status post cholecystectomy. Lateral segment hepatic cyst is noted. There is no evidence for a bowel obstruction. No bowel wall thickening is identified on this unenhanced examination. There is no hydronephrosis. Bilateral renal lesions were better depicted on prior contrast enhanced CT of April 16, 2021. An infrarenal abdominal aortic aneurysm, measuring 5 x 4.5 cm is similar to prior CT of April 16, 2021. 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 Right common iliac artery measures 2.9 cm. Left common iliac artery measures 2.4 cm. 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 Mild dilatation of both common femoral arteries is again noted. There is no evidence for rupture. Sigmoid diverticulosis is noted without evidence for acute diverticulitis. IMPRESSION: 1. No acute process within the abdomen or pelvis on unenhanced exam. 2. No change in a 5 cm infrarenal abdominal aortic aneurysm since CT of April 16, 2021. 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 No rupture. Nonemergent Vascular surgery consultation if not already obtained is recommended. 3. No bowel obstruction. 4. Redemonstration of a lytic lesion within the posterior left 10th rib. This is suspicious for multiple myeloma or metastatic disease. ACT 112: Negative or not required by law. Electronically signed by: Chandrakant Hzd M.D. 05/18/2021 8:16 PM Code Status & VTE Plan VTE Prophylaxis Plan VTE Prophylaxis will be ordered: Yes Supervising Physician Co-Signing Physician Notes IM ATTENDING : Patient seen and examined. History obtained from patient and records. Preceding documentation by Ms. Catina Valdez PA-C reviewed. FINAL ASSESSMENT AND PLAN as follows : ARF, hyperkalemia ? Contrast nephropathy (IV dye administration from last confinement) hx CAD status post stent AAA, stable size, patient follows with [facility] CT surgery hypertension, slightly elevated hyperlipidemia on statin Rx valvular heart disease (moderate MR/mild TR/AR) Bladder cancer status post surgery status post BCG treatment Multiple myeloma, chemotherapy currently on hold secondary to C. difficile diarrhea status post Dificid currently on oral vancomycin COPD, not in acute exacerbation Chronic anemia, hemoglobin better than baseline likely secondary to hemoconcentration Anxiety/depression, suboptimal as per patient/denies suicidality past tobacco/alcohol abuse PCU Monitor creatinine response to IVF Appropriate to hold home lisinopril and Lasix until creatinine back to baseline Nephrology consult if without improvement in kidney function Inpatient Psychiatry follow-up evaluation for suboptimal mood as per patient request DVT prophylaxis. Heparin subcu Full code Patient requesting to be discharged by tomorrow morning if possible. Text document was generated using [employer] voice recognition software. It may contain grammatical or spelling errors. Kindly contact undersigned for clarification of any documentation item in question. (1) COPD (chronic obstructive pulmonary disease) COPD type: unspecified COPD Qualified Code(s): J44.9 - Chronic obstructive pulmonary disease, unspecified (2) Multiple myeloma Multiple myeloma remission status: unspecified Qualified Code(s): C90.00 - Multiple myeloma not having achieved remission
[2021-05-18 21:33] LABS: BUN Creatinine Ratio 23.7 (10-20); Calcium 8.9 mg/dl (8.5-10.1); Creatinine Clr Calc Pharmacy 30.2 ml/min; Est GFR (African American) 33.6 ml/min; Potassium 5.1 mmol/L (3.5-5.1)
[2021-05-18] MEDS ORDERED: POLYETHYLENE (MIRALAX) 17 GM PACK PO PRN (21:37)
[2021-05-18] MEDS ORDERED: ACETAMINOPHEN 325 MG TAB PO PRN (21:37)
[2021-05-18 21:56] LABS: Appearance Urine Clear (Clear); Bilirubin Urine Negative (Negative); Blood Urine Negative (Negative); Color Urine Yellow; Glucose Urine UA 1+ (Negative); Ketones Urine Negative (Negative); Leukocyte Esterase Urine Negative (Negative); Nitrite Urine Negative (Negative); Protein Urine Negative (Negative); Specific Gravity Urine 1.017 (1.000-1.030); Urobilinogen Urine Negative (Negative)
[2021-05-18] MEDS: ATORVASTATIN 40 MG TAB PO SCH (23:00)
[2021-05-18] MEDS: METOPROLOL TARTRATE 25 MG TAB PO SCH (23:00)
[2021-05-18] MEDS: HEPARIN SOD 5,000 UNIT/0.5 ML VIAL SQ SCH (23:01)
[2021-05-18] MEDS ORDERED: LORazepam 0.5 MG TAB PO STA (23:44)
[2021-05-19] MEDS: HEPARIN SOD 5,000 UNIT/0.5 ML VIAL SQ SCH ×3 (05:02→21:25)
[2021-05-19 06:25] LABS: Hematocrit (blood only) 29.3 % (42-52); Hemoglobin 9.3 g/dL (14.0-18.0); Mean Corpuscular Hemoglobin 29.7 pg (25-34); Mean Corpuscular Hgb Conc 31.7 g/dL (32-36); Mean Corpuscular Volume 93.6 fL (80-100); Mean Platelet Volume 10.8 fL (7.4-10.4); Platelet Count 192 K/uL (130-400); RDW Coefficient of Variation 14.9 % (11.5-14.5); RDW Standard Deviation 51.1 fL (36.4-46.3); Red Blood Count 3.13 M/uL (4.7-6.1)
[2021-05-19 07:00] LABS: BUN Creatinine Ratio 26.5 (10-20); Creatinine Clr Calc Pharmacy 38.1 ml/min; Est GFR (African American) 44.4 ml/min; Est GFR (Non-African American) 38.3 ml/min; Potassium 5.3 mmol/L (3.5-5.1)
[2021-05-19] MEDS: FAMOTIDINE 20 MG TAB PO SCH (08:36)
[2021-05-19] MEDS: ASPIRIN 81 MG ECTAB PO SCH (08:36)
[2021-05-19] MEDS: ADVANCED PROBIOTIC 1250 MG CAPSULE PO SCH (08:36)
[2021-05-19] MEDS: METOPROLOL TARTRATE 50 MG TAB PO SCH (08:37)
[2021-05-19] MEDS ORDERED: PNEUMOCOCCAL POLYSACCHARIDES 25 MCG/0.5 ML VIAL/SYR IM ONE (09:00)
--- NOTE | 2021-05-19 09:05 | Electrocardiogram Report ---
Test Reason : Blood Pressure : / mmHG Vent. Rate : 062 BPM Atrial Rate : 062 BPM P-R Int : 148 ms QRS Dur : 094 ms QT Int : 420 ms P-R-T Axes : 000 003 041 degrees QTc Int : 426 ms Normal sinus rhythm Inferior infarct , age undetermined Abnormal ECG When compared with ECG of 18-MAY-2021 17:23, (unconfirmed) Nonspecific T wave abnormality now evident in Inferior leads Confirmed by Roland Turcios ([id number]) on 05/19/2021 9:04:55 AM Referred By: REFERRED SELF Confirmed By:Roland Turcios
[2021-05-19] MEDS: RASPBERRY SYRUP 5 ML UDP PO SCH (09:06)
[2021-05-19] MEDS: VANCOMYCIN HCL 125 MG/2.5ML SOLN PO SCH (09:07)
[2021-05-19] MEDS ORDERED: ALUMINUM/MAGNESIUM/SIMETH (MAALOX MAX) 30 ML UDC ONE (10:39)
[2021-05-19] MEDS: SODIUM CHLORIDE 0.9% 1000ML 1,000 ML IV SCH ×2 (11:30→19:19)
[2021-05-19] MEDS ORDERED: VANCOMYCIN CONSULT ACTIVE PRN (15:48)
[2021-05-19] MEDS ORDERED: VANCOMYCIN HCL 1,250 MG in SODIUM CHLORIDE 0.9% 250 ML IV ONE (16:00)
--- NOTE | 2021-05-19 16:37 | Psychiatric Consultation ---
Date of Consultation May 19, 2021 Impression / Recommendations Impression This is a 71-year-old male who presented to hospital with complications due to C. difficile infection. Currently receiving medical treatment on the floors but is endorsing signs and symptoms consistent with anxiety and depression. Patient will benefit from medication to target the symptoms. (1) Depression: Start Ativan 0.5 mg every 6 hours as needed Start Lexapro 10 mg p.o. every morning Risk Factors Assessment Male: Yes : Yes Previous Attempt: No Protective Factors Assessment : Yes Stable Relationships: Yes Supportive Family: Yes Good Rapport with Provider: Yes Psych History Chief Complaint "I am not in good shape". History of Present Illness HPI as per psychiatric liaison "Met with pt for initial psych consult for depression. Pt reports having multiple ongoing medical issues including Cancer, C-diff, and chronic pain. Pt states he usually is very active and his medical issues have caused him to be debilitated which is incredibly frustrating for him. Pt states, "I feel useless and worthless because I can't do what I normally do." Pt denies any active SI but does report passive wishes. He does not have any plan or intent but states, "Sometimes, I just wish this would all end." Pt scored 15 on PHQ-9. He reports hypersomnia, hopelessness, anergia, and poor appetite. Pt states many of his symptoms are related to his medical issues. Pt denies any history of SA or SIB. He does report having guns in the home but feels safe at home. He lives with his who he reports is supportive but they often times have altercations because she gets frustrated with him for having no energy. Pt reports he smokes MJ every other day for his chronic pain. He is not interested in medication management but is agreeable to counseling. [facility] in [place] called and pt placed on waitlist. Spoke to Florinda at [facility]. Pt's phone number was provided and they will reach out to pt. Received callback from Magali through [facility]. She stated they currently do not have any counselors licensed with medicare insurance. Contacted [facility] and they do accept Medicare insurance and are able to do phone sessions. Will provide pt with [facility] contact information. Spoke to Jarrod Pérez and she wishes to hear from pt directly in order to arrange appointment. She states she can mail the paperwork needed to be completed rather than email if he does not have access to a computer. Pt was provided with Luba Pérez's info through [facility] and instructions provided to contact her directly to schedule an intake. Luba Beto stated she has appointments as soon as next week. Pt appreciative of information. Denies any further questions or needs at this time." Upon evaluation with patient this afternoon he was tearful and endorsed the above information is accurate. Patient states he is having a mental breakdown because he feels so depressed regarding his current situation. He states he is unable to do things he used to do and is feeling overwhelmed by the multiple diagnoses which require long and uncomfortable treatments. Patient seems to be most upset about his C. difficile diagnosis which he feels limited his ability to ride his motorcycle or live a normal life. Patient also endorsing stressors of old age including losing a lot of his friends to sickness or . Patient is known from last time he was in the hospital approximately 1 month ago. At that time we had started some trazodone medication to help with sleep but it appears that patient did not continue to take the medication while outside of the hospital. This time he is open to medications to help with his mood as well as sleep. He was significantly anxious throughout the course of the evaluation and was tearful regarding multiple topics. No hallucinations or psychotic symptoms noted. Allergies Allergy/AdvReac Type Severity Reaction Status Date / Time shellfish derived Allergy Intermediate HIVES Verified 05/18/21 17:59 Home Medications Medication Instructions Recorded Confirmed Type aspirin 81 mg tablet,delayed 81 mg PO QAM 09/29/19 05/18/21 History release atorvastatin 80 mg tablet 80 mg PO QPM 09/29/19 05/18/21 History lisinopril 20 mg tablet 20 mg PO QAM 09/29/19 05/18/21 History metoprolol tartrate 25 mg tablet See Rx Instructions .ROUTE .COMPLEX 09/29/19 05/18/21 History nitroglycerin 0.4 mg sublingual 0.4 mg SUBLINGUAL DIRECTED PRN 09/29/19 05/18/21 History tablet calcium citrate 250 mg 1 tab PO HS 10/05/20 05/18/21 History calcium-vitamin D3 5 mcg (200 unit) tablet furosemide 20 mg tablet 20 mg PO MOWEFR@0900 02/21/21 05/18/21 History magnesium oxide 250 mg PO BID 04/16/21 05/18/21 History famotidine 20 mg tablet 20 mg PO DAILY #30 tab 04/19/21 05/18/21 Rx vancomycin 125 mg capsule 125 mg PO .QOD #60 cap 04/19/21 05/18/21 Rx Lactobacillus #2-Bifidobacter 1 cap PO DAILY 05/18/21 05/18/21 History #1-S. therm 112.5 billion cell capsule Personal History Beliefs That Will Affect Care: None Patient History Medical History Abdominal aortic aneurysm 5cm per 03/2020 CT- under surveillance by vascular Anemia Arthritis Bilateral pneumonia hospitalized for this 07/2020 [facility] Bladder cancer dx March 2020; hx TURBT 04/27/2020 [facility] Chronic steroid use COPD (chronic obstructive pulmonary disease) no inh Coronary artery disease BMS (2014) follows with Dr. Geiger GERD (gastroesophageal reflux disease) History of COVID-19 10/05/19 > tested at [place] History of kidney stones History of myocardial infarction 2013 History of pancreatitis Hyperlipidemia Hypertension Lung nodule, multiple per , refusing work up at present time Multiple myeloma reason for dexamethasone, revlimid & velcade Surgical History History of cardiac catheterization 2013 [facility] [place] - 1 stent History of cholecystectomy History of colonoscopy History of cystoscopy History of tooth extraction Family History Other Heart disease Social History Smoking Status: Former smoker Tobacco Type: Cigarettes Years Smoked: 40; Smoking End Date: 2019; Second Hand Exposure: Yes; Do You Dip or Chew Tobacco: No; Tobacco Cessation Education Requested by Patient: No Hx Alcohol Use: No Hx Substance Use: Yes Last Used Substance: Days (ago) Last Used Substance Other:: yesterday Substance Use Type Other:: marijuana once weekly Preferred Language: American Communication Ability: Effective Visual Impairment: No Limitations Rental Agent Required: No Beliefs That Will Affect Care: None marital status: Current Living Situation: Spouse Other Information That Helps Us Care for You: No Feels Safe at Home: Yes Safety Concerns: Feels Safe At This Time Assistive Devices: None Physical Exam Psychiatric: Orientation: alert Apperance: appropriately dressed Eye Contact: + fair eye contact Motor Behavior: no abnormal motor movements Speech: normal rate/rhythm/volume of speech Affect: + depressed affect and + tearful affect Mood: + depressed mood and + anxious mood Thought Process: goal directed thought process, linear/logical thought process and + concrete thought process Thought Content: reality based without delusions and + hopelessness Suicidal Thoughts: denies suicidal thoughts Homicidal Thoughts: denies homicidal thoughts Hallucinations: no auditory hallucinations and no visual hallucinations Cognition: remote memory grossly intact Estimated Intelligence: consistent with education level Insight: + fair insight Judgement: + fair judgement Vital Signs (Past 24 Hours): Last Vital Signs Temp 36.5 C 05/19/21 15:20 Pulse 66 05/19/21 15:20 Resp 25 H 05/19/21 15:20 BP 176/89 H 05/19/21 15:20 Pulse Ox 100 05/19/21 15:20 Review of Systems All systems reviewed & are unremarkable except as noted in HPI & below Results & Data (PSY) Medications Administered Aspirin (Aspirin 81 Mg Ectab) 81 mg PO QAM EZEKIEL Stop: 06/18/21 08:59 Last Admin: 05/19/21 08:36 Dose: 81 mg Documented by: [id number] Atorvastatin Calcium (Atorvastatin 40 Mg Tab) 80 mg PO QPM EZEKIEL Stop: 06/17/21 21:36 Last Admin: 05/18/21 23:00 Dose: 80 mg Documented by: [id number] Famotidine (Famotidine 20 Mg Tab) 20 mg PO DAILY EZEKIEL Stop: 06/18/21 08:59 Last Admin: 05/19/21 08:36 Dose: 20 mg Documented by: [id number] Heparin Sodium (Porcine) (Heparin Sod 5,000 Unit/0.5 Ml Vial) 5,000 units SQ Q8 EZEKIEL Stop: 06/17/21 21:59 Last Admin: 05/19/21 13:25 Dose: Not Given Documented by: [id number] Admin: 05/19/21 05:02 Dose: Not Given Documented by: [id number] Admin: 05/18/21 23:01 Dose: 5,000 units Documented by: [id number] Sodium Chloride (Nss 1000ml) 1,000 mls @ 125 mls/hr IV .Q8H EZEKIEL Stop: 05/20/21 11:14 Last Admin: 05/19/21 11:30 Dose: 125 mls/hr Documented by: [id number] Vancomycin HCl 1,250 mg/ (Sodium Chloride) 275 mls @ 200 mls/hr IV ONCE ONE Stop: 05/19/21 17:22 Last Admin: 05/19/21 16:29 Dose: 200 mls/hr Documented by: [id number] Lactobacillus Acidoph/Casei/Rhamnos (Advanced Probiotic 1250 Mg Capsule) 2 cap PO DAILY EZEKIEL Stop: 06/18/21 08:59 Last Admin: 05/19/21 08:36 Dose: 2 cap Documented by: [id number] Metoprolol Tartrate (Metoprolol Tartrate 50 Mg Tab) 50 mg PO QAM [facility] Stop: 06/18/21 08:59 Last Admin: 05/19/21 08:37 Dose: 50 mg Documented by: [id number] Metoprolol Tartrate (Metoprolol Tartrate 25 Mg Tab) 25 mg PO HS [facility] Stop: 06/17/21 21:44 Last Admin: 05/18/21 23:00 Dose: 25 mg Documented by: [id number] Raspberry (Raspberry Syrup 5 Ml Udp) 5 ml PO Q2D [facility] Stop: 06/02/21 08:59 Last Admin: 05/19/21 09:06 Dose: 5 ml Documented by: [id number] Vancomycin HCl (Vancomycin Hcl 125 Mg/2.5ml Soln) 125 mg PO Q2D [facility] Stop: 05/29/21 08:59 Last Admin: 05/19/21 09:07 Dose: 125 mg Documented by: [id number] Coding Level of Care Code 57586 [facility] Intl Hosp Care Lvl 2 Diagnoses Depression F32.9 Time Spent (min) 45
[2021-05-19] MEDS: LORazepam 0.5 MG TAB PO PRN ×2 (16:58→21:29)
--- NOTE | 2021-05-19 17:20 | Hospitalist Progress Note ---
Date of Service May 19, 2021 Assessment & Plan (1) Hyperkalemia: Plan: This is a 71-year-old male with PMH of multiple myeloma, bladder cancer, recurrent C. difficile infections, COPD, tobacco use, AAA and other medical problems listed below who presents due to generalized weakness and nausea over the past 9 days. Hyperkalemia first noted on 05/07 at 5.4, now 6.9 In setting of acute renal failure Given IV insulin, D50, albuterol and 2 L NSS in ED - repeat BMP shows improved K to 5.1 Initial EKG with peaked T waves but no acute ST changes, no chest pain CT abd/pelvis with no acute process within the abdomen or pelvis on unenhanced exam Potassium has been improving We will continue IV fluids and monitor PRP (2) Acute renal failure: Plan: Cr 2.60 in setting of dehydration, ongoing vancomycin for recurrent c diff Baseline Cr ~1 No known renal disease at baseline Urine Na, Cr pending Cr improved with 2.23 with IV fluids Routine nephrology consult Repeat BMP in AM -shows improvement Continue IV fluid and more oral intake (3) Multiple myeloma: Plan: Follows with Dr. De La Cruz. Treatment has been held for past few months due to recurrent C diff (4) Recurrent Clostridioides difficile diarrhea: Plan: Recent negative OP test on 05/07 On termite treater PO vanco Q2D (5) COPD (chronic obstructive pulmonary disease): Plan: At baseline. 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 No rupture Nonemergent Vascular surgery consultation if not already obtained is recommended (8) Hypertension: Plan: Holding home lasix and lisinopril in setting of BREANN. Continue Lopressor DVT Ppx: SQ heparin Code status: FULL PCP: Oswaldo Geiger Dispo: Admitted to PCU. Plan to return home once medically stable. Patient seen in collaboration with Dr. Rosario. Please see addendum. Admission and Anticipated Discharge Date Admission Date: May 18, 2021 Subjective 05/19/2021 The patient was seen and examined in telemetry unit He has been feeling much better and wanted to do you be discharged Was advised to drink more fluid Review of Systems Review of Systems: At least ten systems reviewed and negative except as noted in the HPI. Physical Exam Physical Exam: Lying in bed comfortably Constitutional: average body habitus; not ill appearing Respiratory: no respiratory distress Auscultation: lungs clear to auscultation bilaterally Cardiovascular: Rate/Rhythm: regular rate and regular rhythm; not tachycardic Heart Sounds: normal S1 and normal S2; no murmur Gastrointestinal (Abdomen): normal bowel sounds, soft, nontender, no hepatosplenomegaly Musculoskeletal: No acute arthritis in any joint Neurologic: Alert, awake and oriented x3 Results & Data Results & Data ([facility]) Vital Signs (Past 12 Hours) Vital Signs Temp Pulse Pulse Resp BP BP Pulse Ox 05/19/21 16:00 67 05/19/21 15:20 36.5 C 66 25 H 176/89 H 100 05/19/21 11:35 37.0 C 61 20 150/79 H 100 05/19/21 08:00 69 05/19/21 07:59 36.5 C 75 18 163/75 H (1) COPD (chronic obstructive pulmonary disease) COPD type: unspecified COPD Qualified Code(s): J44.9 - Chronic obstructive pulmonary disease, unspecified (2) Multiple myeloma Multiple myeloma remission status: unspecified Qualified Code(s): C90.00 - Multiple myeloma not having achieved remission
--- NOTE | 2021-05-19 17:50 | Pharmacy Report ---
Pharmacy Abx Initial Consult - Date of Service May 19, 2021 - Pharmacy Dosing Scope Date of Consult: 05/19/21 Consultation requested by: Dr. Moura Pharmacy is consulted to initiate vancomycin IV dosing therapy, order appropriate labs and adjust drug dose/frequency. - Subjective The patient is a 71 year old M admitted on 05/18/21 18:44. - Objective Height: 5 ft 8 in Weight: 69 kg Vital Signs (Past 12hrs): Vital Signs Temp Pulse Pulse Resp BP BP Pulse Ox 05/19/21 16:00 67 05/19/21 15:20 36.5 C 66 25 H 176/89 H 100 05/19/21 11:35 37.0 C 61 20 150/79 H 100 05/19/21 08:00 69 05/19/21 07:59 36.5 C 75 18 163/75 H Lab Results (24hrs): Laboratory Tests (24 Hours) 05/19/21 05/19/21 05/18/21 05:46 05:46 20:41 WBC 8.70 Creatinine 1.77 H D Est Cr Clr Drug Dosing 38.1 Total Creatine Kinase 39 05/18/21 20:41 WBC Creatinine 2.23 H D Est Cr Clr Drug Dosing 30.2 Total Creatine Kinase Micro Results: 05/18/21 17:08 Aerobic Blood Culture - Pending Blood 05/18/21 17:12 Aerobic Blood Culture - Pending Blood Anaerobic Blood Culture - Pending - Risk Factors for Resistance * Immunocompromised (chronic steroid therapy, chemotherapy, immunomodulators) - Assessment & Plan Assessment 71 year old M with PMH of multiple myeloma, bladder cancer and recurrent C. difficile admitted with weakness and nausea. Pt with positive blood culture (05/18) in 1/4 bottles growing gram positive cocci in clusters and initiated on IV vancomycin for possible bacteremia. Patient with acute kidney injury (SCr 2.23 --> 1.77mg/dL), baseline SCr ~ 1.1. Plan Vancomycin IV * Loading dose: 1250 mg (~18 mg/kg) * Goal trough level for bacteremia: 15-20mcg/mL * Random level ordered for 05/20 with AM labs * Plan to dose by levels until renal function returns to baseline Pharmacy will continue to follow and will adjust dose/frequency as necessary. Thank you.
[2021-05-19] MEDS: CALCIUM 600MG + VIT D 400 IU TAB PO SCH (21:30)
[2021-05-19] MEDS: METOPROLOL TARTRATE 25 MG TAB PO SCH (21:30)
[2021-05-19] MEDS: ATORVASTATIN 40 MG TAB PO SCH (21:30)
[2021-05-19] MEDS ORDERED: SODIUM CHLORIDE 0.9% 1000ML 1,000 ML IV ONE (23:15)
[2021-05-20] MEDS: SODIUM CHLORIDE 0.9% 1000ML 1,000 ML IV SCH (03:09)
[2021-05-20] MEDS: HEPARIN SOD 5,000 UNIT/0.5 ML VIAL SQ SCH ×3 (04:42→20:48)
[2021-05-20] MEDS ORDERED: VANCOMYCIN HCL 1,000 MG/270 ML BAG IV SCH (06:00)
[2021-05-20 06:12] LABS: Basophils # (auto) 0.02 K/uL (0-0.2); Basophils % (auto) 0.3 %; Eosinophils # (auto) 0.25 K/uL (0-0.5); Eosinophils % (auto) 3.1 %; Hematocrit (blood only) 29.9 % (42-52); Hemoglobin 9.4 g/dL (14.0-18.0); Immature Granulocytes # (auto) 0.02 K/uL (0.00-0.02); Immature Granulocytes % (auto) 0.3 %; Lymphocytes % (auto) 12.5 %; Mean Corpuscular Hemoglobin 29.6 pg (25-34); Mean Corpuscular Hgb Conc 31.4 g/dL (32-36); Mean Platelet Volume 10.5 fL (7.4-10.4); Monocytes # (auto) 0.71 K/uL (0.11-0.59); Monocytes % (auto) 8.9 %; Neutrophils # (auto) 5.98 K/uL (1.4-6.5); Neutrophils % (auto) 74.9 %; Platelet Count 191 K/uL (130-400); RDW Coefficient of Variation 14.4 % (11.5-14.5); RDW Standard Deviation 49.8 fL (36.4-46.3); Red Blood Count 3.18 M/uL (4.7-6.1); White Blood Count 7.98 K/uL (4.8-10.8)
[2021-05-20 07:21] LABS: BUN Creatinine Ratio 17.3 (10-20); Calcium 8.2 mg/dl (8.5-10.1); Creatinine Clr Calc Pharmacy 49.2 ml/min; Est GFR (African American) 60.6 ml/min; Est GFR (Non-African American) 52.3 ml/min; Potassium 5.1 mmol/L (3.5-5.1)
[2021-05-20] MEDS: FAMOTIDINE 20 MG TAB PO SCH (08:04)
[2021-05-20] MEDS: ADVANCED PROBIOTIC 1250 MG CAPSULE PO SCH (08:04)
[2021-05-20] MEDS: METOPROLOL TARTRATE 50 MG TAB PO SCH (08:04)
[2021-05-20] MEDS: ESCITALOPRAM OXALATE 10 MG TAB PO SCH (08:04)
[2021-05-20] MEDS: ASPIRIN 81 MG ECTAB PO SCH (08:04)
--- NOTE | 2021-05-20 08:57 | Pharmacy Report ---
Pharmacy Vanc AUC Short Note - Date of Service May 20, 2021 - Assessment & Plan Assessment 71 year old M receiving empiric vancomycin for treatment of possible Staphylococcal bacteremia. Pertinent microbiologic data includes: 1 of 4 blood cultures growing gram-positive cocci in clusters. No leukocytosis, afebrile. BREANN improving (SCR: 2.6 -> 2.2 -> 1.7 -> 1.3 mg/dL) Day # 2 of antimicrobial therapy. Plan Vancomycin * AUC/JCARLOS is the preferred PK/PD target for vancomycin * AUC guided dosing is effective and associated with decreased risk of nephrotoxicity compared to traditional trough targets * Random level obtained due to BREANN - resulted as 7.8 mcg/mL this morning * New dose of 1000 mg IV q18h is predicted to achieve target AUC/JCARLOS of 400-600 mg/L.hr and may be associated with a 14 % risk of nephrotoxicity * Will continue to follow renal function closely and order levels as indicated Pharmacy will continue to follow and will adjust dose/frequency as necessary. Thank you.
[2021-05-20] MEDS ORDERED: VANCOMYCIN HCL 125 MG/2.5ML SOLN PO SCH (09:00)
[2021-05-20] MEDS ORDERED: RASPBERRY SYRUP 5 ML UDP PO SCH (09:00)
[2021-05-20] MEDS: VANCOMYCIN HCL 1,000 MG in SODIUM CHLORIDE 0.9% 250 ML IV SCH (09:01)
[2021-05-20] MEDS: LORazepam 0.5 MG TAB PO PRN ×2 (09:02→21:39)
--- NOTE | 2021-05-20 09:10 | Hospitalist Progress Note ---
Date of Service May 20, 2021 Assessment & Plan (1) Hyperkalemia: Plan: This is a 71-year-old male with PMH of multiple myeloma, bladder cancer, recurrent C. difficile infections, COPD, tobacco use, AAA and other medical problems listed below who presents due to generalized weakness and nausea over the past 9 days. Hyperkalemia first noted on 05/07 at 5.4, now 6.9 In setting of acute renal failure Given IV insulin, D50, albuterol and 2 L NSS in ED - repeat BMP shows improved K to 5.1 Initial EKG with peaked T waves but no acute ST changes, no chest pain CT abd/pelvis with no acute process within the abdomen or pelvis on unenhanced exam Potassium has been improving We will continue IV fluids and monitor PRP His potassium has been normalized Electrolytes are normalized (2) Acute renal failure: Plan: Cr 2.60 in setting of dehydration, ongoing vancomycin for recurrent c diff Baseline Cr ~1 No known renal disease at baseline Urine Na, Cr pending Cr improved with 2.23 with IV fluids Routine nephrology consult Repeat BMP in AM -shows improvement Continue IV fluid and more oral intake Renal function has been reverted to normal Will not give any more intravenous fluid but was advised to drink more water One of the blood cultures is growing staph in clusters Most likely contamination Received 1 dose of vancomycin IV Does not have any signs and/or symptoms of infection Blood culture is preliminary and awaiting for final result tomorrow We will continue intravenous Vanco for now given the history of multiple myeloma and immunosuppressed condition (3) Multiple myeloma: Plan: Follows with Dr. De La Cruz. Treatment has been held for past few months due to recurrent C diff C. difficile toxin has been negative No acute symptoms (4) Recurrent Clostridioides difficile diarrhea: Plan: Recent negative OP test on 05/07 On fpc PO vanco Q2D Stool is negative for C. difficile toxin (5) COPD (chronic obstructive pulmonary disease): Plan: At baseline. 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 No rupture Nonemergent Vascular surgery consultation if not already obtained is recommended (8) Hypertension: Plan: Holding home lasix and lisinopril in setting of BREANN. Continue Lopressor We will start current medications Strongly advised to drink more fluid DVT Ppx: SQ heparin Code status: FULL PCP: Oswaldo Geiger Dispo: Admitted to PCU. Plan to return home once medically stable. Likely be discharged tomorrow Plan: Likely discharge today Admission and Anticipated Discharge Date Admission Date: May 18, 2021 Subjective 05/19/2021 The patient was seen and examined in telemetry unit He has been feeling much better and wanted to do you be discharged Was advised to drink more fluid 05/20/2021 The patient was seen and examined in telemetry unit He remains well and wants to go home He has been trying to drink more fluid specially water He is worried about blood culture positivity Review of Systems Review of Systems: At least ten systems reviewed and negative except as noted in the HPI. Physical Exam Physical Exam: Lying in bed comfortably Constitutional: average body habitus; not ill appearing Eyes: PERRL, conjunctivae normal, anicteric sclerae ENMT: external ear and nose normal, oropharynx normal Neck: trachea midline, no thyromegaly Respiratory: no respiratory distress Auscultation: lungs clear to auscultation bilaterally Cardiovascular: Rate/Rhythm: regular rate and regular rhythm; not tachycardic Heart Sounds: normal S1 and normal S2; no murmur Gastrointestinal (Abdomen): normal bowel sounds, soft, nontender, no hepatosplenomegaly Musculoskeletal: No acute arthritis in any joint Neurologic: Alert, awake and oriented x3 Lymphatic: no cervical or axillary lymphadenopathy Results & Data Results & Data ([facility]) Vital Signs (Past 12 Hours) Vital Signs Temp Pulse Pulse Resp BP BP Pulse Ox 05/20/21 07:45 36.7 C 79 22 149/81 H 95 05/20/21 06:35 138/91 05/20/21 06:06 36.3 C L 69 16 176/81 H 98 05/20/21 00:21 71 Laboratory Results Short CBC 05/20/21 Range/Units 05:53 WBC 7.98 (4.8-10.8) K/uL Hgb 9.4 L (14.0-18.0) g/dL Hct 29.9 L (42-52) % Plt Count 191 (130-400) K/uL BMP 05/20/21 05:53 Sodium 140 Potassium 5.1 Chloride 114 H Carbon Dioxide 20 L BUN 24 H Creatinine 1.37 D Glucose 95 Calcium 8.2 L Medications Administered Current Inpatient Medications Acetaminophen (Acetaminophen 325 Mg Tab) 650 mg PO Q4H PRN PRN Reason: Pain or Fever Stop: 06/17/21 21:36 Last Admin: 05/19/21 22:06 Dose: 650 mg Documented by: Aspirin (Aspirin 81 Mg Ectab) 81 mg PO QAM [facility] Stop: 06/18/21 08:59 Last Admin: 05/20/21 08:04 Dose: 81 mg Documented by: Atorvastatin Calcium (Atorvastatin 40 Mg Tab) 80 mg PO QPM [facility] Stop: 06/17/21 21:36 Last Admin: 05/19/21 21:30 Dose: 80 mg Documented by: Escitalopram Oxalate (Escitalopram Oxalate 10 Mg Tab) 10 mg PO QAM [facility] Stop: 06/19/21 08:59 Last Admin: 05/20/21 08:04 Dose: 10 mg Documented by: Famotidine (Famotidine 20 Mg Tab) 20 mg PO DAILY [facility] Stop: 06/18/21 08:59 Last Admin: 05/20/21 08:04 Dose: 20 mg Documented by: Heparin Sodium (Porcine) (Heparin Sod 5,000 Unit/0.5 Ml Vial) 5,000 units SQ Q8 [facility] Stop: 06/17/21 21:59 Last Admin: 05/20/21 13:09 Dose: Not Given Documented by: Vancomycin HCl 1,000 mg/ (Sodium Chloride) 270 mls @ 200 mls/hr IV Q18H [facility]; Protocol Stop: 06/03/21 07:59 Last Infusion: 05/20/21 10:43 Dose: Infused Documented by: Lactobacillus Acidoph/Casei/Rhamnos (Advanced Probiotic 1250 Mg Capsule) 2 cap PO DAILY [facility] Stop: 06/18/21 08:59 Last Admin: 05/20/21 08:04 Dose: 2 cap Documented by: Lorazepam (Lorazepam 0.5 Mg Tab) 0.5 mg PO Q6 PRN PRN Reason: Anxiety Stop: 06/18/21 16:10 Last Admin: 05/20/21 09:02 Dose: 0.5 mg Documented by: Metoprolol Tartrate (Metoprolol Tartrate 50 Mg Tab) [facility] Stop: 06/18/21 08:59 Last Admin: 05/20/21 08:04 Dose: 50 mg Documented by: Metoprolol Tartrate (Metoprolol Tartrate 25 Mg Tab) 25 mg PO [facility] Stop: 06/17/21 21:44 Last Admin: 05/19/21 21:30 Dose: 25 mg Documented by: Multivitamins/Minerals (Calcium 600mg + Vit D 400 Iu Tab) 1 tab PO [facility] Stop: 06/18/21 20:59 Last Admin: 05/19/21 21:30 Dose: 1 tab Documented by: Ondansetron HCl (Ondansetron Inj 2 Mg/Ml 2 Ml Vial) 4 mg IV Q6H PRN PRN Reason: Nausea Stop: 06/17/21 21:36 Last Admin: 05/20/21 09:55 Dose: 4 mg Documented by: Polyethylene Glycol (Polyethylene (Miralax) 17 Gm Pack) 17 gm PO DAILY PRN PRN Reason: Constipation Stop: 06/17/21 21:36 Raspberry (Raspberry Syrup 5 Ml Udp) 5 ml PO Q2D [facility] Stop: 06/02/21 08:59 Last Admin: 05/19/21 09:06 Dose: 5 ml Documented by: Vancomycin HCl (Vancomycin Hcl 125 Mg/2.5ml Soln) 125 mg PO Q2D [facility] Stop: 05/29/21 08:59 Last Admin: 05/19/21 09:07 Dose: 125 mg Documented by: (1) COPD (chronic obstructive pulmonary disease) COPD type: unspecified COPD Qualified Code(s): J44.9 - Chronic obstructive pulmonary disease, unspecified (2) Multiple myeloma Multiple myeloma remission status: unspecified Qualified Code(s): C90.00 - Multiple myeloma not having achieved remission
[2021-05-20] MEDS: ONDANSETRON INJ 2 MG/ML 2 ML VIAL IV PRN (09:55)
[2021-05-20] MEDS: ATORVASTATIN 40 MG TAB PO SCH (20:26)
[2021-05-20] MEDS: CALCIUM 600MG + VIT D 400 IU TAB PO SCH (20:26)
[2021-05-20] MEDS: METOPROLOL TARTRATE 25 MG TAB PO SCH (20:26)
[2021-05-21] MEDS: VANCOMYCIN HCL 1,000 MG in SODIUM CHLORIDE 0.9% 250 ML IV SCH (02:02)
[2021-05-21] MEDS ORDERED: FAMOTIDINE 20 MG TAB PO SCH (02:55)
[2021-05-21] MEDS: HEPARIN SOD 5,000 UNIT/0.5 ML VIAL SQ SCH ×2 (05:15→14:18)
[2021-05-21 07:04] LABS: Basophils # (auto) 0.02 K/uL (0-0.2); Basophils % (auto) 0.2 %; Eosinophils # (auto) 0.22 K/uL (0-0.5); Hematocrit (blood only) 35.2 % (42-52); Hemoglobin 11.3 g/dL (14.0-18.0); Immature Granulocytes # (auto) 0.02 K/uL (0.00-0.02); Immature Granulocytes % (auto) 0.2 %; Lymphocytes # (auto) 1.05 K/uL (1.2-3.4); Lymphocytes % (auto) 9.7 %; Mean Corpuscular Hemoglobin 29.7 pg (25-34); Mean Corpuscular Hgb Conc 32.1 g/dL (32-36); Mean Corpuscular Volume 92.4 fL (80-100); Mean Platelet Volume 11.1 fL (7.4-10.4); Monocytes # (auto) 0.81 K/uL (0.11-0.59); Monocytes % (auto) 7.5 %; Neutrophils # (auto) 8.66 K/uL (1.4-6.5); Neutrophils % (auto) 80.4 %; Platelet Count 227 K/uL (130-400); RDW Coefficient of Variation 14.4 % (11.5-14.5); RDW Standard Deviation 48.7 fL (36.4-46.3); Red Blood Count 3.81 M/uL (4.7-6.1); White Blood Count 10.78 K/uL (4.8-10.8)
[2021-05-21 07:36] LABS: BUN Creatinine Ratio 12.4 (10-20); Calcium 9.1 mg/dl (8.5-10.1); Creatinine Clr Calc Pharmacy 48.2 ml/min; Est GFR (Non-African American) 50.9 ml/min; Potassium 4.7 mmol/L (3.5-5.1)
[2021-05-21] MEDS: ONDANSETRON INJ 2 MG/ML 2 ML VIAL IV PRN (08:36)
[2021-05-21] MEDS: ESCITALOPRAM OXALATE 10 MG TAB PO SCH (08:54)
[2021-05-21] MEDS: METOPROLOL TARTRATE 50 MG TAB PO SCH (08:54)
[2021-05-21] MEDS: ADVANCED PROBIOTIC 1250 MG CAPSULE PO SCH (08:54)
[2021-05-21] MEDS: ASPIRIN 81 MG ECTAB PO SCH (08:54)
[2021-05-21] MEDS: RASPBERRY SYRUP 5 ML UDP PO SCH (10:34)
[2021-05-21] MEDS: VANCOMYCIN HCL 125 MG/2.5ML SOLN PO SCH (10:35)
--- NOTE | 2021-05-21 12:19 | Hospitalist Progress Note ---
Date of Service May 21, 2021 Assessment & Plan (1) Hyperkalemia: Plan: This is a 71-year-old male with PMH of multiple myeloma, bladder cancer, recurrent C. difficile infections, COPD, tobacco use, AAA and other medical problems listed below who presents due to generalized weakness and nausea over the past 9 days. Hyperkalemia first noted on 05/07 at 5.4, now 6.9 In setting of acute renal failure Given IV insulin, D50, albuterol and 2 L NSS in ED - repeat BMP shows improved K to 5.1 Initial EKG with peaked T waves but no acute ST changes, no chest pain CT abd/pelvis with no acute process within the abdomen or pelvis on unenhanced exam Received intravenous fluid in the hospital and has been drinking enough Potassium has been normalized (2) Acute renal failure: Plan: Cr 2.60 in setting of dehydration, ongoing vancomycin for recurrent c diff Baseline Cr ~1 No known renal disease at baseline Urine Na, Cr pending Cr improved with 2.23 with IV fluids Received intravenous fluid and increasing oral intake of fluid Nephrology consult was not needed His kidney function has been normalized for the last 2 days He will be discharged home today One of the blood cultures is growing staph in clusters Most likely contamination Received 1 dose of vancomycin IV Does not have any signs and/or symptoms of infection Blood culture is preliminary and awaiting for final result tomorrow We will continue intravenous Vanco for now given the history of multiple myeloma and immunosuppressed condition Likely contaminant and will DC vancomycin (3) Multiple myeloma: Plan: Follows with Dr. De La Cruz. Treatment has been held for past few months due to recurrent C diff C. difficile toxin has been negative No acute symptoms Advised to drink more fluid (4) Recurrent Clostridioides difficile diarrhea: Plan: Recent negative OP test on 05/07 On assisted PO vanco Q2D Stool is negative for C. difficile toxin (5) COPD (chronic obstructive pulmonary disease): Plan: At baseline. 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 No rupture Nonemergent Vascular surgery consultation if not already obtained is recommended (8) Hypertension: Plan: Holding home lasix and lisinopril in setting of BREANN. Continue Lopressor We will start current medications Strongly advised to drink more fluid DVT Ppx: SQ heparin Code status: FULL PCP: Oswaldo Geiegr Dispo: Admitted to PCU. Plan to return home once medically stable. Will be discharged home this afternoon Plan: Likely discharge today Admission and Anticipated Discharge Date Admission Date: May 18, 2021 Subjective 05/19/2021 The patient was seen and examined in telemetry unit He has been feeling much better and wanted to do you be discharged Was advised to drink more fluid 05/20/2021 The patient was seen and examined in telemetry unit He remains well and wants to go home He has been trying to drink more fluid specially water He is worried about blood culture positivity 05/21/2021 The patient was seen and examined in telemetry unit He has been feeling much better and ambulating in the hallway without any difficulties He has had occasional diarrhea and has been on suppressive dose of oral vancomycin Review of Systems Review of Systems: At least ten systems reviewed and negative except as noted in the HPI. Physical Exam Physical Exam: Lying in bed comfortably Constitutional: average body habitus; not ill appearing Eyes: PERRL, conjunctivae normal, anicteric sclerae ENMT: external ear and nose normal, oropharynx normal Neck: trachea midline, no thyromegaly Respiratory: no respiratory distress Auscultation: lungs clear to auscultation bilaterally Cardiovascular: Rate/Rhythm: regular rate and regular rhythm; not tachycardic Heart Sounds: normal S1 and normal S2; no murmur Gastrointestinal (Abdomen): normal bowel sounds, soft, nontender, no hepatosplenomegaly Musculoskeletal: No acute arthritis Neurologic: Alert awake and oriented x3 Lymphatic: no cervical or axillary lymphadenopathy Results & Data Results & Data ([facility]) Vital Signs (Past 12 Hours) Vital Signs Temp Pulse Pulse Resp BP BP Pulse Ox 05/21/21 08:00 36.5 C 89 72 18 153/74 H 96 05/21/21 02:10 36.5 C 72 18 162/96 H 97 Laboratory Results Short CBC 05/21/21 Range/Units 06:24 WBC 10.78 (4.8-10.8) K/uL Hgb 11.3 L (14.0-18.0) g/dL Hct 35.2 L (42-52) % Plt Count 227 (130-400) K/uL [facility] 05/21/21 06:24 Sodium 137 Potassium 4.7 Chloride 111 H Carbon Dioxide 20 L BUN 17 Creatinine 1.40 Glucose 101 H Calcium 9.1 Medications Administered Current Inpatient Medications Acetaminophen (Acetaminophen 325 Mg Tab) 650 mg PO Q4H PRN PRN Reason: Pain or Fever Stop: 06/17/21 21:36 Last Admin: 05/19/21 22:06 Dose: 650 mg Documented by: Aspirin (Aspirin 81 Mg Ectab) 81 mg PO QAM [facility] Stop: 06/18/21 08:59 Last Admin: 05/21/21 08:54 Dose: 81 mg Documented by: Atorvastatin Calcium (Atorvastatin 40 Mg Tab) 80 mg PO QPM [facility] Stop: 06/17/21 21:36 Last Admin: 05/20/21 20:26 Dose: 80 mg Documented by: Escitalopram Oxalate (Escitalopram Oxalate 10 Mg Tab) 10 mg PO QAM [facility] Stop: 06/19/21 08:59 Last Admin: 05/21/21 08:54 Dose: 10 mg Documented by: Famotidine (Famotidine 20 Mg Tab) 20 mg PO DAILY [facility] Stop: 06/20/21 02:54 Last Admin: 05/21/21 05:16 Dose: Not Given Documented by: Heparin Sodium (Porcine) (Heparin Sod 5,000 Unit/0.5 Ml Vial) 5,000 units SQ Q8 [facility] Stop: 06/17/21 21:59 Last Admin: 05/21/21 05:15 Dose: Not Given Documented by: Lactobacillus Acidoph/Casei/Rhamnos (Advanced Probiotic 1250 Mg Capsule) 2 cap PO DAILY [facility] Stop: 06/18/21 08:59 Last Admin: 05/21/21 08:54 Dose: 2 cap Documented by: Lorazepam (Lorazepam 0.5 Mg Tab) 0.5 mg PO Q6 PRN PRN Reason: Anxiety Stop: 06/18/21 16:10 Last Admin: 05/20/21 21:39 Dose: 0.5 mg Documented by: Metoprolol Tartrate (Metoprolol Tartrate 50 Mg Tab) 50 mg PO QAM [facility] Stop: 06/18/21 08:59 Last Admin: 05/21/21 08:54 Dose: 50 mg Documented by: Metoprolol Tartrate (Metoprolol Tartrate 25 Mg Tab) 25 mg PO [facility] Stop: 06/17/21 21:44 Last Admin: 05/20/21 20:26 Dose: 25 mg Documented by: Multivitamins/Minerals (Calcium 600mg + Vit D 400 Iu Tab) 1 tab PO [facility] Stop: 06/18/21 20:59 Last Admin: 05/20/21 20:26 Dose: 1 tab Documented by: Ondansetron HCl (Ondansetron Inj 2 Mg/Ml 2 Ml Vial) 4 mg IV Q6H PRN PRN Reason: Nausea Stop: 06/17/21 21:36 Last Admin: 05/21/21 08:36 Dose: 4 mg Documented by: Polyethylene Glycol (Polyethylene (Miralax) 17 Gm Pack) 17 gm PO DAILY PRN PRN Reason: Constipation Stop: 06/17/21 21:36 Raspberry (Raspberry Syrup 5 Ml Udp) 5 ml PO Q2D [facility] Stop: 06/02/21 08:59 Last Admin: 05/21/21 10:34 Dose: Not Given Documented by: Vancomycin HCl (Vancomycin Hcl 125 Mg/2.5ml Soln) 125 mg PO Q2D [facility] Stop: 05/29/21 08:59 Last Admin: 05/21/21 10:35 Dose: Not Given Documented by: (1) Multiple myeloma Multiple myeloma remission status: unspecified Qualified Code(s): C90.00 - Multiple myeloma not having achieved remission (2) COPD (chronic obstructive pulmonary disease) COPD type: unspecified COPD Qualified Code(s): J44.9 - Chronic obstructive pulmonary disease, unspecified
[2021-05-21] MEDS ORDERED: ALUMINUM/MAGNESIUM SUSP 30 ML UDC PO STA (14:51)
--- NOTE | 2021-05-21 15:54 | Electrocardiogram Report ---
Test Reason : Blood Pressure : / mmHG Vent. Rate : 054 BPM Atrial Rate : 054 BPM P-R Int : 192 ms QRS Dur : 102 ms QT Int : 434 ms P-R-T Axes : 022 033 071 degrees QTc Int : 411 ms Sinus bradycardia Otherwise normal ECG When compared with ECG of 16-APR-2021 14:40, Vent. rate has decreased BY 30 BPM Minimal criteria for Inferior infarct are no longer Present T wave amplitude has increased in Anterior leads QT has shortened Confirmed by Roland Turcios ([id number]) on 05/21/2021 3:54:23 PM Referred By: REFERRED SELF Confirmed By:Roland Turcios
[2021-05-21 15:59] VITALS: TEMP 98.6; O2SAT 99
[2021-05-21 16:14] VITALS: BP 162/96; PULSE 78
--- NOTE | 2021-05-21 17:04 | Electrocardiogram Report ---
Test Reason : Blood Pressure : / mmHG Vent. Rate : 078 BPM Atrial Rate : 078 BPM P-R Int : 182 ms QRS Dur : 098 ms QT Int : 404 ms P-R-T Axes : 039 008 034 degrees QTc Int : 460 ms Normal sinus rhythm Inferior infarct (cited on or before 19-MAY-2021) Abnormal ECG When compared with ECG of 19-MAY-2021 06:16, No significant change was found Confirmed by Roland Turcios ([id number]) on 05/21/2021 5:03:55 PM Referred By: REFERRED SELF Confirmed By:Roland Turcios
--- NOTE | 2021-05-29 09:16 | Discharge Summary ---
Date of Service May 29, 2021 Admission HPI Per Admitting Provider This is a 71-year-old male with PMH of multiple myeloma, bladder cancer, recurrent C. difficile infections, COPD, tobacco use, AAA and other medical problems listed below who presents due to generalized weakness and nausea over the past 9 days. Patient was seen by PCP in clinic with concerns for dehydration and was found to have elevated potassium. Was encouraged to come in to ER for IV hydration on 05/06 but patient elected to not come in. Has continued to feel more nauseated of the past few days. Decreased oral intake. Negative C. difficile lab work on 05/07/2021 and has been having pudding consistency stool. Still taking vancomycin every other day. Also endorsing numbness in hands earlier today that is since resolved. Denies any fever, chills, lightheadedness, headache, chest pain, shortness of breath, vomiting, abdominal pain, dysuria. Has chronic back pain and site of known lytic lesion. Unfortunately has been unable to continue multiple myeloma treatment due to recurrent C. difficile. Also with history of bladder cancer due for repeat cystoscopy. Admission Exam Per Admitting Provider Physical Exam: General Appearance: appears chronically ill, vitals as above, NAD, sitting up in bed, conversing easily Head: normocephalic, atraumatic Eyes: normal inspection, PERRL, conjunctivae normal, anicteric sclerae ENT: external ear and nose normal, oropharynx normal Neck: normal visual inspection, trachea midline, no thyromegaly Respiratory: normal respiratory effort, lungs clear to auscultation, no wheeze, rales, rhonchi. No accessory muscle use Cardiovascular: regular rate, rhythm, no murmur, normal peripheral pulses, no BLE edema. Vessels: no JVD Chest: normal inspection of chest Abdomen/GI: normal bowel sounds, soft, nontender, no hepatosplenomegaly Extremities/Musculoskeletal: no cyanosis or clubbing, extremities motor strength 5/5 Neurologic: PERRL, EOMI, accommodation nl, no face palsy, no dysarthria, CN's II-XI intact bilaterally and moves all extremities Psychiatric: A+Ox3, euthymic affect Skin: no rashes, normal color, warm/dry Principal Diagnosis Acute renal failure, hyperkalemia, multiple myeloma Discharge Exam Constitutional average body habitus; not ill appearing Eyes PERRL, conjunctivae normal, anicteric sclerae ENMT external ear and nose normal, oropharynx normal Neck trachea midline, no thyromegaly Respiratory no respiratory distress Auscultation: lungs clear to auscultation bilaterally Cardiovascular Rate/Rhythm: regular rate and regular rhythm; not tachycardic Heart Sounds: normal S1 and normal S2; no murmur Gastrointestinal (Abdomen) normal bowel sounds, soft, nontender, no hepatosplenomegaly Lymphatic no cervical or axillary lymphadenopathy Discharge Data Allergies Allergy/AdvReac Type Severity Reaction Status Date / Time shellfish derived Allergy Intermediate HIVES Verified 05/18/21 17:59 Consultations 05/18/21 18:29 ED Decision to Admit Stat 05/18/21 23:45 Consult Psychiatry Routine Ordered Studies 05/18/21 17:51 CT abd pelvis wo con Stat Hospital Course (1) Hyperkalemia: This is a 71-year-old male with PMH of multiple myeloma, bladder cancer, recurrent C. difficile infections, COPD, tobacco use, AAA and other medical problems listed below who presents due to generalized weakness and nausea over the past 9 days. Hyperkalemia first noted on 05/07 at 5.4, now 6.9 In setting of acute renal failure Given IV insulin, D50, albuterol and 2 L NSS in ED - repeat BMP shows improved K to 5.1 Initial EKG with peaked T waves but no acute ST changes, no chest pain CT abd/pelvis with no acute process within the abdomen or pelvis on unenhanced exam Received intravenous fluid in the hospital and has been drinking enough Potassium has been normalized (2) Acute renal failure: Cr 2.60 in setting of dehydration, ongoing vancomycin for recurrent c diff Baseline Cr ~1 No known renal disease at baseline Urine Na, Cr pending Cr improved with 2.23 with IV fluids Received intravenous fluid and increasing oral intake of fluid Nephrology consult was not needed His kidney function has been normalized for the last 2 days He will be discharged home today One of the blood cultures is growing staph in clusters Most likely contamination Received 1 dose of vancomycin IV Does not have any signs and/or symptoms of infection Blood culture is preliminary and awaiting for final result tomorrow We will continue intravenous Vanco for now given the history of multiple myeloma and immunosuppressed condition Likely contaminant and will DC vancomycin (3) Multiple myeloma: Follows with Dr. De La Cruz. Treatment has been held for past few months due to recurrent C diff C. difficile toxin has been negative No acute symptoms Advised to drink more fluid (4) Recurrent Clostridioides difficile diarrhea: Recent negative OP test on 05/07 On fdc PO vanco Q2D Stool is negative for C. difficile toxin (5) COPD (chronic obstructive pulmonary disease): At baseline. 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 No rupture Nonemergent Vascular surgery consultation if not already obtained is recommended (8) Hypertension: Holding home lasix and lisinopril in setting of BREANN. Continue Lopressor We will start current medications Strongly advised to drink more fluid DVT Ppx: SQ heparin Code status: FULL PCP: Oswaldo Geiger Dispo: Admitted to PCU. Plan to return home once medically stable. Will be discharged home this afternoon Likely discharge today Total Time Total Time Spent Total Time Spent (In Minutes): 35 minutes Discharge Plan Discharge Items Patient Disposition: Home - Self-Care Reason For Visit: HYPERKALEMIA, ARF Discharge Diagnosis: Acute renal failure, hyperkalemia, multiple myeloma Condition on Discharge: Fair Activity: Resume your previous activity Non-emergency contact: Primary Care Provider Call non-emergency contact if: you have any medication questions Follow-up/Referrals: [facility] [Other] (pt to call Luba Pérez through [facility] directly. She will then arrange appt and complete intake. She can do phone sessions and is in contract with medicare. She has appts avail next week) Savanah Geiger DO [Primary Care Provider] - (Date & Time 05/26/2021 11:10 AM Provider Savanah Geiger DO Department [facility] ) Diet: Heart Healthy Fluids: 1500ml (6 cups) Addtl Attending Provider Instructions: Please take precautions to avoid fall Try to drink more fluid as advised up to 6 cups of fluid in a day Try to avoid fluid that has potassium in it Pending Studies at Discharge: No Stand-Alone Forms: My [facility], Smoking Cessation Medications and DC Order Prescriptions: Continued atorvastatin 80 mg tablet 80 mg PO QPM RF: 0 lisinopril 20 mg tablet 20 mg PO QAM RF: 0 aspirin 81 mg tablet,delayed release (DR/EC) 81 mg PO QAM RF: 0 nitroglycerin 0.4 mg tablet, sublingual 0.4 mg sublingual DIRECTED PRN (Reason: Chest Pain) RF: 0 metoprolol tartrate 25 mg tablet See Rx Instructions .ROUTE .COMPLEX RF: 0 calcium citrate-vitamin D3 250 mg-5 mcg (200 unit) Tablet 1 tab PO HS RF: 0 furosemide 20 mg tablet 20 mg PO MOWEFR@0900 RF: 0 magnesium oxide 250 mg magnesium tablet 250 mg PO BID RF: 0 vancomycin 125 mg capsule 125 mg PO .QOD Qty: 60 RF: 3 famotidine 20 mg tablet 20 mg PO DAILY Qty: 30 RF: 2 Lactobac #2-Bifido #1-S. therm 112.5 billion cell capsule 1 cap PO DAILY RF: 0 Discharge Orders: Discharge Order (Routine); Ordered 05/21/21 Ordered By: Tessy Moura Admission Data Admit Date/Time: 05/18/21 18:44 Attending Provider: Tessy Moura Admit Provider: Arcadio Kan Primary Care Provider: Savanah Geiger Other Providers: Arcadio Kan ; Liliana Frazier ; Dr Guevara ; Winnie Johnson ; Roni Ross ; Alejandro Rosario Other Interventions: Discharge Summary Assessment (RN) Last Done: 05/21/21 16:13
== END 2021-05-21 17:04 | disposition home or self-care (01) | DRG 683 ==
LOC: ED 15:37 → SUATTDRO 18:44 → 2S 18:44
DX: K21.9 Gastro-esophageal reflux disease without esophagitis; E87.5 Hyperkalemia; Z86.16 Personal history of COVID-19; Z79.82 Long term (current) use of aspirin; E86.0 Dehydration; C90.00 Multiple myeloma not having achieved remission; N17.9 Acute kidney failure, unspecified; J44.9 Chronic obstructive pulmonary disease, unspecified; A04.71 Enterocolitis due to Clostridium difficile, recurrent; Z87.891 Personal history of nicotine dependence; Z85.51 Personal history of malignant neoplasm of bladder; I71.4 Abdominal aortic aneurysm, without rupture; I25.2 Old myocardial infarction; Z79.52 Long term (current) use of systemic steroids; Z86.19 Personal history of other infectious and parasitic diseases; I10 Essential (primary) hypertension; I25.10 Atherosclerotic heart disease of native coronary artery without angina pectoris

== ENCOUNTER 2022-07-18 16:25 | Observation (INO) ==
[2022-07-18] MEDS ORDERED: ASPIRIN CHEW 324 MG PO STA (17:25)
[2022-07-18] MEDS ORDERED: METOPROLOL TARTRATE 1 MG/ML VIAL IV STA (17:25)
[2022-07-18] MEDS ORDERED: SODIUM CHLORIDE 0.9% 1000ML 1,000 ML IV ONE ×2 (17:25→19:33)
--- NOTE | 2022-07-18 17:28 | Emergency Department Note ---
Impression & Plan Atrial flutter with rapid ventricular response, Substernal precordial chest pain ED Provider Note Name: JESSICA BILLY Age: 72 Sex: M Arrives Via: Walk-In Informant: Patient ED Provider: Andre Edouard MD Chief Complaint: Palpitations Impression: As per impressions above Medical Decision Makin-year-old gentleman with history of CAD status post stenting along with extensive other medical issues arrives for evaluation of chest pain and palpitations following exertion this morning. He was seen at an outside clinic and was advised to come to the ER for new onset a flutter. On arrival patient is in a flutter mild RVR and is having some mild chest discomfort. He was given aspirin 324 mg p.o., 1 L normal saline IV and 5 mg IV Lopressor. This resulted in return to normal sinus rhythm. He has complete resolution of symptoms now. His initial labs show mild troponin elevation but otherwise unremarkable. Chest x-ray is unremarkable. Patient is not having any further pain. I discussed anticoagulation and patient notes he has significant bleeding issues previously and would like to avoid this. I discussed the case with the hospitalist given h is episode of chest pain and new onset A. fib/flutter. Patient is agreeable to hospitalization for cardiac monitoring. I do not feel this is consistent with PE or dissection at this time. Of note patient was mildly hypotensive on arrival which did improve with fluids and the conversion to normal sinus rhythm. He does remain slightly on the lower side blood pressure but is completely asymptomatic and map is good. No evidence sepsis at this time. Prior Medical Record and Triage/Nursing Notes reviewed by Me Additional history obtained from chart Differentials:Premature contractions, electrolyte abnormality, cardiac dysrhythmia, thyroid dysfunction, pulmonary embolism, infection, gastrointestinal, as well as other pathologies. Vital Signs: reviewed and remarkable for tachy, hypotension Interventions: 1 L normal saline, Lopressor 5 mg IV, aspirin 324 mg p.o. Labs:Reviewed and remarkable for elevated troponin Imagin view chest x-ray no acute findings as per radiologist EKG:Per My Interpretation: Indication Palpitations: Aflutter with variable rate at 99 bpm, qtc 405. No Ectopy. No Ischemia. Compared to EKG 06/17/22 he is no longer in NSR Cardiac/Tele Monitoring: Cardiac Monitoring: An Order was placed for continuous cardiac monitoring. The monitor shows a rate of 70 with a normal sinus rhythm. Consults:Dr Marlene Esqueda hospitalist Plan: Disposition:Hospitalization. Condition: Good History of Present Illness:72-year-old gentleman arrives for evaluation of chest pain. Patient notes he was outside this morning sawing down a tree. He notes he exerted himself pretty heavily. Following this he started getting some chest discomfort. He noted his heart rate was up. After relaxing his chest pain has resolved. He notes he can still feel his heart beating in his chest. Denies any radiation of pain, nausea, vomiting, headache, neck pain, fevers, chills, shortness of breath, back pain, abdominal pain, urinary/bowel symptoms, leg swelling, calf pain or other concerning signs or symptoms. He has had no recent bleeding or bruising. Patient does have a history of multiple myeloma is being treated for this. He also has a history of COPD, CAD with previous stenting, kidney issues amongst multiple other medical comorbidities. No medications prior to arrival. He is on no blood thinners other than aspirin 81 mg daily. He has no history of A. fib. He was seen by his PCP urgent care clinic who did a EKG and was advised to go to the ER for evaluation of atrial flutter and hypotension. Patient states while sitting in bed he is feeling fine. ROS: See above HPI for pertinent positives & negatives. A total of 10 systems reviewed and were otherwise negative. Past Medical History:See Below Past Surgical History:See Below Family History:See Below Social History:See Below Home Medications:See Below Allergies:Shellfish Vitals:Blood Pressure: 97/68, Pulse 102, RR 16, T 36.8C, O2 99% on RA Physical Exam: GENERAL: Patient is chronically unwell appearing and in mild distress. EYES: No scleral icterus, unremarkable pupils. ENT: Mucous membranes moist, no nasal congestion. NECK: No masses appreciated, nomeningismus, trachea is midline. RESPIRATORY: No dyspnea. Clear to auscultation and equal bilaterally. Mild expir atory wheeze, no rhonchi. CARDIOVASCULAR: Tachy, irregular.No murmurs, rubs, gallops appreciated. GASTROINTESTINAL: Abdomen soft, non-tender, no peritonitis.Bowel sounds positive.No masses appreciated. BACK: No midline tenderness, no CVA tenderness EXTREMITIES: Normal motion all extremities, no cyanosis, no edema. NEUROLOGIC: Alert and oriented, no acute motor or sensory deficits, no focal w eakness, cranial nerves grossly intact. SKIN: No rash, no jaundice, no diaphoresis. PSYCH: Appropriate GCS: 15 ED Course: Times/Reassessments: Return to normal sinus rhythm and patient with complete resolution of symptoms. Andre Edouard MD Past Med/Surg History Medical History Abdominal aortic aneurysm 5cm per 03/2020 CT- under surveillance by vascular Anemia Arthritis Bilateral pneumonia hospitalized for this 07/2020 [facility] Bladder cancer dx March 2020; hx TURBT 04/27/2020 [facility] Chronic steroid use COPD (chronic obstructive pulmonary disease) no inh Coronary artery disease BMS (2014) follows with Dr. Geiger GERD (gastroesophageal reflux disease) History of COVID-19 10/05/19 > tested at [facility] History of kidney stones History of myocardial infarction 2013 History of pancreatitis Hyperlipidemia Hypertension Lung nodule, multiple per , refusing work up at present time Multiple myeloma reason for dexamethasone, revlimid & velcade Surgical History History of cardiac catheterization 2013 [facility]- [place] - 1 stent History of cholecystectomy History of colonoscopy History of cystoscopy History of tooth extraction Family History Other Heart disease Social History Smoking Status: Current every day smoker Tobacco Type: Cigarettes Years Smoked: 40; Second Hand Exposure: Yes; Hx Alcohol Use: No Hx Substance Use: Yes Last Used Substance: Days (ago) Last Used Substance Other:: yesterday Substance Use Type Other:: marijuana once weekly Preferred Language: Hungarian Communication Ability: Effective Visual Impairment: No Limitations Laboratory Specialist Required: No Beliefs That Will Affect Care: None marital status: Current Living Situation: Spouse Feels Safe at Home: Yes Assistive Devices: None Allergies Allergies Allergy/AdvReac Type Severity Reaction Status Date / Time shellfish derived Allergy Intermediate HIVES Verified 07/18/22 18:12 Home Meds Home Medications Medication Instructions Recorded Confirmed aspirin 81 mg tablet,delayed 81 mg PO QAM 09/29/19 07/18/22 release atorvastatin 80 mg tablet 80 mg PO QPM 09/29/19 07/18/22 metoprolol tartrate 25 mg tablet See Rx Instructions .Route .COMPLEX 09/29/19 07/18/22 nitroglycerin 0.4 mg sublingual 0.4 mg sublingual DIRECTED PRN 09/29/19 07/18/22 tablet Chest Pain calcium citrate 250 mg 1 tab PO HS 10/05/20 07/18/22 calcium-vitamin D3 5 mcg (200 unit) tablet magnesium oxide 250 mg PO BID 04/16/21 07/18/22 acyclovir 400 mg tablet 400 mg PO AMHS 07/18/22 07/18/22 ciprofloxacin HCl 0.3 % eye drops 1 - 2 drp ophthalmic (eye) UD 07/18/22 07/18/22 dexamethasone 4 mg tablet 40 mg PO WK 07/18/22 07/18/22 famotidine 20 mg tablet 20 mg PO BID 07/18/22 07/18/22 lenalidomide 10 mg capsule 10 mg PO UD 07/18/22 07/18/22 (Revlimid) mirtazapine 15 mg tablet 15 mg PO HS 07/18/22 07/18/22 ondansetron HCl 8 mg tablet 8 mg PO Q8 PRN Nausea 07/18/22 07/18/22 prochlorperazine maleate 10 mg 10 mg PO Q6 PRN Nausea 07/18/22 07/18/22 tablet Results & Data (ED) Vital Signs Vital Signs - 24 hr 07/18/22 17:01 07/18/22 18:03 07/18/22 17:50 Temperature 36.8 C Temperature Source Oral Pulse Rate 102 H 97 H 83 Pulse Rate [Apical] Pulse Rhythm Regular Pulse Strength Normal Respiratory Rate 16 25 H Respiratory Effort / Characteristics Non-Labored Spontaneous Respiratory Depth Normal Respiratory Pattern Regular Blood Pressure 97/68 L 95/64 L Blood Pressure [Right Arm] Blood Pressure Mean 77 Blood Pressure Mean [Right Arm] Blood Pressure Position Sitting Pulse Oximetry 99 Oxygen Delivery Method Room Air Sepsis Recent Fever Within 48 Hours No Sepsis New/Unexplained Change in Mental Status No Sepsis Action Taken by Nursing No Action Required 07/18/22 18:00 07/18/22 18:00 07/18/22 18:08 Temperature Temperature Source Pulse Rate 87 Pulse Rate [Apical] Pulse Rhythm Pulse Strength Respiratory Rate 27 H Respiratory Effort / Characteristics Respiratory Depth Respiratory Pattern Blood Pressure 95/64 L 111/69 Blood Pressure [Right Arm] Blood Pressure Mean 74 83 Blood Pressure Mean [Right Arm] Blood Pressure Position Pulse Oximetry 97 Oxygen Delivery Method Room Air Sepsis Recent Fever Within 48 Hours Sepsis New/Unexplained Change in Mental Status Sepsis Action Taken by Nursing 07/18/22 18:08 07/18/22 18:10 07/18/22 18:10 Temperature Temperature Source Pulse Rate 82 76 Pulse Rate [Apical] Pulse Rhythm Pulse Strength Respiratory Rate 25 H 21 Respiratory Effort / Characteristics Respiratory Depth Respiratory Pattern Blood Pressure 91/65 L Blood Pressure [Right Arm] Blood Pressure Mean 73 Blood Pressure Mean [Right Arm] Blood Pressure Position Pulse Oximetry 100 Oxygen Delivery Method Room Air Sepsis Recent Fever Within 48 Hours Sepsis New/Unexplained Change in Mental Status Sepsis Action Taken by Nursing 07/18/22 18:15 07/18/22 18:20 07/18/22 18:20 Temperature Temperature Source Pulse Rate 72 65 Pulse Rate [Apical] Pulse Rhythm Pulse Strength Respiratory Rate 16 25 H Respiratory Effort / Characteristics Respiratory Depth Respiratory Pattern Blood Pressure 98/61 L Blood Pressure [Right Arm] Blood Pressure Mean 73 Blood Pressure Mean [Right Arm] Blood Pressure Position Pulse Oximetry 99 100 Oxygen Delivery Method Room Air Room Air Sepsis Recent Fever Within 48 Hours Sepsis New/Unexplained Change in Mental Status Sepsis Action Taken by Nursing 07/18/22 18:22 07/18/22 18:22 07/18/22 18:30 Temperature Temperature Source Pulse Rate 69 Pulse Rate [Apical] Pulse Rhythm Pulse Strength Respiratory Rate 20 Respiratory Effort / Characteristics Respiratory Depth Respiratory Pattern Blood Pressure 86/62 L 94/70 L Blood Pressure [Right Arm] Blood Pressure Mean 70 78 Blood Pressure Mean [Right Arm] Blood Pressure Position Pulse Oximetry 99 Oxygen Delivery Method Room Air Sepsis Recent Fever Within 48 Hours Sepsis New/Unexplained Change in Mental Status Sepsis Action Taken by Nursing 07/18/22 18:30 07/18/22 19:19 Temperature Temperature Source Pulse Rate 68 Pulse Rate [Apical] 67 Pulse Rhythm Pulse Strength Respiratory Rate 24 20 Respiratory Effort / Characteristics Non-Labored Respiratory Depth Normal Respiratory Pattern Blood Pressure Blood Pressure [Right Arm] 92/65 L Blood Pressure Mean Blood Pressure Mean [Right Arm] 74 Blood Pressure Position Pulse Oximetry 98 99 Oxygen Delivery Method Room Air Room Air Sepsis Recent Fever Within 48 Hours Sepsis New/Unexplained Change in Mental Status Sepsis Action Taken by Nursing Laboratory Data Result diagrams: 07/18/22 17:28 07/18/22 17:28 Lab Results 07/18/22 07/18/22 07/18/22 Range/Units 17:28 17:28 17:28 WBC 10.50 (4.8-10.8) K/ul RBC 3.19 L (4.63-6.08) M/uL Hgb 10.3 L (14.0-18.0) g/dl Hct 31.4 L (40.1-51.0) % MCV 98.4 (80.0-100.0) fL MCH 32.3 (25.0-34.0) pg MCHC 32.8 (32.0-36.0) g/dL RDW Std Deviation 60.2 H (36.4-46.3) fL RDW Coeff of Andrew 16.6 H (11.5-14.5) % Plt Count 216 (130-400) K/uL MPV 11.0 (9.4-12.4) fL Immature Gran % (Auto) 1.0 % Neut % (Auto) 79.4 % Lymph % (Auto) 9.8 % Bates % (Auto) 7.0 % Eos % (Auto) 2.4 % Baso % (Auto) 0.4 % Neut # (Auto) 8.33 H (1.4-6.5) K/uL Lymph # (Auto) 1.03 L (1.2-3.4) K/uL Bates # (Auto) 0.74 (0.24-0.82) K/uL Eos # (Auto) 0.25 (0-0.50) K/uL Baso # (Auto) 0.04 (0-0.2) K/uL Immature Gran # (Auto) 0.11 H (0.00-0.02) K/uL Acanthocytes (Spur) 1+ PT 11.1 (9.0-12.0) Seconds INR 1.0 (0.9-1.1) APTT 23.8 (21.0-31.0) Seconds PTT Ratio 0.9 Sodium 135 L (136-145) mmol/L Potassium 4.7 (3.5-5.1) mmol/L Chloride 102 (98-107) mmol/L Carbon Dioxide 24 (21-32) mmol/L Anion Gap 9 (3-11) BUN 31 H (6-23) mg/dl Creatinine 1.55 H (0.6-1.4) mg/dl Est Cr Clr Drug Dosing 40.2 ml/min Est GFR ( Amer) 51.8 ml/min Est GFR (Non-Af Amer) 44.7 ml/min BUN/Creatinine Ratio 20.0 (10-20) Glucose 85 (70-99(Fasting)) mg/dl Calcium 9.0 (8.5-10.1) mg/dl Magnesium 2.0 (1.7-2.4) mg/dl Total Bilirubin 0.6 (0.2-1.0) mg/dl Direct Bilirubin 0.1 (0-0.2) mg/dl AST 10 L (13-39) U/L ALT 12 (7-52) U/L Alkaline Phosphatase 62 (34-104) U/L Troponin I High Sens 20.5 H (0-20) pg/ml Total Protein 6.6 (6.0-8.3) gm/dl Albumin 3.5 (3.4-5.0) gm/dl TSH (0.300-4.500) uIu/ml SARS-CoV-2, RNA, NAAT (NEGATIVE) 07/18/22 07/18/22 Range/Units 17:28 17:58 WBC (4.8-10.8) K/ul RBC (4.63-6.08) M/uL Hgb (14.0-18.0) g/dl Hct (40.1-51.0) % MCV (80.0-100.0) fL MCH (25.0-34.0) pg MCHC (32.0-36.0) g/dL RDW Std Deviation (36.4-46.3) fL RDW Coeff of Andrew (11.5-14.5) % Plt Count (130-400) K/uL MPV (9.4-12.4) fL Immature Gran % (Auto) % Neut % (Auto) % Lymph % (Auto) % Bates % (Auto) % Eos % (Auto) % Baso % (Auto) % Neut # (Auto) (1.4-6.5) K/uL Lymph # (Auto) (1.2-3.4) K/uL Bates # (Auto) (0.24-0.82) K/uL Eos # (Auto) (0-0.50) K/uL Baso # (Auto) (0-0.2) K/uL Immature Gran # (Auto) (0.00-0.02) K/uL Acanthocytes (Spur) PT (9.0-12.0) Seconds INR (0.9-1.1) APTT (21.0-31.0) Seconds PTT Ratio Sodium (136-145) mmol/L Potassium (3.5-5.1) mmol/L Chloride (98-107) mmol/L Carbon Dioxide (21-32) mmol/L Anion Gap (3-11) BUN (6-23) mg/dl Creatinine (0.6-1.4) mg/dl Est Cr Clr Drug Dosing ml/min Est GFR ( Amer) ml/min Est GFR (Non-Af Amer) ml/min BUN/Creatinine Ratio (10-20) Glucose (70-99(Fasting)) mg/dl Calcium (8.5-10.1) mg/dl Magnesium (1.7-2.4) mg/dl Total Bilirubin (0.2-1.0) mg/dl Direct Bilirubin (0-0.2) mg/dl AST (13-39) U/L ALT (7-52) U/L Alkaline Phosphatase (34-104) U/L Troponin I High Sens (0-20) pg/ml Total Protein (6.0-8.3) gm/dl Albumin (3.4-5.0) gm/dl TSH 1.500 (0.300-4.500) uIu/ml SARS-CoV-2, RNA, NAAT NEGATIVE (NEGATIVE) Administered Medications Discontinued Medications Aspirin (Aspirin Chew 324 Mg) 324 mg PO NOW STA Stop: 07/18/22 17:26 Last Admin: 07/18/22 18:00 Dose: 324 mg Documented By: HG Sodium Chloride (Nss 1000ml) 1,000 mls @ 999 mls/hr IV .Q1H1M ONE Stop: 07/18/22 18:25 Last Infusion: 07/18/22 19:17 Dose: 0 mls/hr Documented By: Admin: 07/18/22 18:02 Dose: 999 mls/hr Documented By: HG Metoprolol Tartrate (Metoprolol Tartrate 1 Mg/Ml Vial) 5 mg IV NOW STA Stop: 07/18/22 17:26 Last Admin: 07/18/22 18:03 Dose: 5 mg Documented By: Imaging Data Radiologist's Impression: Chest X-Ray 07/18/22 17:25 SINGLE VIEW CHEST CLINICAL HISTORY: Atypical chest pain FINDINGS: An AP, portable, upright chest radiograph is compared to study dated 06/17/2022 and correlated with chest CT dated 04/25/2020. The heart is enlarged noting atherosclerotic calcification of the thoracic aorta. The pulmonary vasculature is noncongested. Emphysema and chronic interstitial thickening is similar to previous. Foci of parenchymal scarring are seen throughout both lungs. This airspace opacities of the left lung base could represent scarring/atelectasis versus pneumonia. No pneumothorax is seen. The skeletal structures are osteopenic. There are healed right-sided rib fractures. IMPRESSION: 1. Cardiomegaly and emphysema without radiographic evidence of congestive f ailure. 2. Left basilar opacities could represent scarring/atelectasis versus an infectious/inflammatory pneumonitis. Clinical correlation will be required. Radiographic follow-up to resolution is recommended. ACT 112: Negative or not required by law. Electronically signed by: Barrington Knapp M.D. 07/18/2022 5:48 PM Discharge Plan Visit Data Chief Complaint: Abnormal Labs/Diagnostic Testing Stated Complaint: REFERRED BY DOC, EKG ED Provider: Andre Edouard Discharge Problem: Atrial flutter with rapid ventricular response, Substernal precordial chest pain Forms Stand Alone Forms: [facility] [employer] Prescriptions Prescriptions: No Action atorvastatin 80 mg tablet 80 mg PO QPM aspirin 81 mg tablet,delayed release (DR/EC) 81 mg PO QAM nitroglycerin 0.4 mg tablet, sublingual 0.4 mg sublingual DIRECTED PRN (Reason: Chest Pain) Rx Instructions: PLACE ONE TABLET UNDER THE TONGUE EVERY 5 MINUTES FOR UP TO 3 DOSES OVER 15 MINUTES IF NEEDED FOR CHEST PAIN metoprolol tartrate 25 mg tablet See Rx Instructions .ROUTE .COMPLEX Rx Instructions: Take 2 tablets in the morning and 1 tablet at bedtime calcium citrate-vitamin D3 250 mg-5 mcg (200 unit) Tablet 1 tab PO HS magnesium oxide 250 mg magnesium tablet 250 mg PO BID lenalidomide [Revlimid] 10 mg capsule 10 mg PO UD Rx Instructions: take 1 capsule once a day for 14 days on and 7 days off acyclovir 400 mg tablet 400 mg PO AMHS dexamethasone 4 mg tablet 40 mg PO WK Rx Instructions: pt doesnt remember day mirtazapine 15 mg tablet 15 mg PO HS famotidine 20 mg tablet 20 mg PO BID ondansetron HCl 8 mg tablet 8 mg PO Q8 PRN (Reason: Nausea) prochlorperazine maleate 10 mg tablet 10 mg PO Q6 PRN (Reason: Nausea) ciprofloxacin HCl 0.3 % Drops 1 - 2 drp OPHTHALMIC (EYE) UD Rx Instructions: put 1-2 drps in affected eye(s) every 2hr for 2 days, then every 4 hours for 5 days Referrals Referrals: Savanah Geiger DO [Primary Care Provider] -
--- NOTE | 2022-07-18 17:49 | XRay Report ---
SINGLE VIEW CHEST CLINICAL HISTORY: Atypical chest pain FINDINGS: An AP, portable, upright chest radiograph is compared to study dated 06/17/2022 and correlat ed with chest CT dated 04/25/2020. The heart is enlarged noting atherosclerotic calcification of the th oracic aorta. The pulmonary vasculature is noncongested. Emphysema and chronic interstitial thickenin g is similar to previous. Foci of parenchymal scarring are seen throughout both lungs. This airspace opacities of the left lung base could represent scarring/atelectasis versus pneumonia. No pneumothora x is seen. The skeletal structures are osteopenic. There are healed right-sided rib fractures. IMPRESSION: 1. Cardiomegaly and emphysema without radiographic evidence of congestive failure. 2. Left basilar opacities could represent scarring/atelectasis versus an infectious/inflammatory pneu monitis. Clinical correlation will be required. Radiographic follow-up to resolution is recommended. ACT 112: Negative or not required by law. Electronically signed by: Barrington Knapp M.D. 07/18/2022 5:48 PM
[2022-07-18 18:15] LABS: Hematocrit (blood only) 31.4 % (40.1-51.0); Hemoglobin 10.3 g/dl (14.0-18.0); Mean Corpuscular Hemoglobin 32.3 pg (25.0-34.0); Mean Corpuscular Hgb Conc 32.8 g/dL (32.0-36.0); Mean Corpuscular Volume 98.4 fL (80.0-100.0); Platelet Count 216 K/uL (130-400); RDW Coefficient of Variation 16.6 % (11.5-14.5); RDW Standard Deviation 60.2 fL (36.4-46.3); Red Blood Count 3.19 M/uL (4.63-6.08)
[2022-07-18 18:21] LABS: Partial Thromboplastin Ratio 0.9; Partial Thromboplastin Time 23.8 Seconds (21.0-31.0); Prothrombin Time 11.1 Seconds (9.0-12.0)
[2022-07-18 18:38] LABS: Acanthocytes 1+; Basophils # (auto) 0.04 K/uL (0-0.2); Basophils % (auto) 0.4 %; Eosinophils # (auto) 0.25 K/uL (0-0.50); Eosinophils % (auto) 2.4 %; Immature Granulocytes # (auto) 0.11 K/uL (0.00-0.02); Lymphocytes # (auto) 1.03 K/uL (1.2-3.4); Lymphocytes % (auto) 9.8 %; Monocytes # (auto) 0.74 K/uL (0.24-0.82); Neutrophils # (auto) 8.33 K/uL (1.4-6.5); Neutrophils % (auto) 79.4 %
[2022-07-18 18:40] LABS: Troponin I High Sensitivity 20.5 pg/ml (0-20)
[2022-07-18 19:05] LABS: Albumin Level 3.5 gm/dl (3.4-5.0); Bilirubin Direct 0.1 mg/dl (0-0.2); Bilirubin,Total 0.6 mg/dl (0.2-1.0); Creatinine Clr Calc Pharmacy 40.2 ml/min; Est GFR (African American) 51.8 ml/min; Est GFR (Non-African American) 44.7 ml/min; Potassium 4.7 mmol/L (3.5-5.1); Total Protein 6.6 gm/dl (6.0-8.3)
--- NOTE | 2022-07-18 20:42 | History & Physical Report ---
Date of Service July 18, 2022 Assessment & Plan (1) Atrial flutter: Plan: Recurrent episode Status post spontaneous conversion at the ER. hx CAD status post stent AAA/ PVD, AAA unchanged size at 4.7 x 4.4 cm recent outpatient imaging February 2022, patient follows with [facility] vascular surgeon. hypertension, BP on the lower side hyperlipidemia on statin Rx multiple myeloma ongoing chemotherapy bladder cancer status post surgery on maintenance BCG CRI, creatinine at baseline chronic anemia, hemoglobin at baseline ongoing tobacco abuse PCU Continue patient's beta-rené for rate control Low-dose IV heparin for thromboembolic prophylaxis TTE, Cardiology consult RE recurrent atrial flutter Nicotine patch as needed DVT prophylaxis. Heparin Full code Patient requesting updates from providers. Ms. Molly Fraser, contact #[phone]. Text document was generated using Glam[employer] voice recognition software. It may contain grammatical or spelling errors. Kindly contact undersigned for clarification of any documentation item in question. History of Present Illness Chief Complaint: Chest pain, palpitations Primary Care Provider: Savanah Geiger DO History obtained from patient, family, and records. Medical history significant for CAD status post stent, AAA, PVD, paroxysmal at rial flutter, hypertension, hyperlipidemia, multiple myeloma ongoing chemotherapy, bladder cancer status post surgery on maintenance BCG, CRI (baseline creatinine 1.4-1.5), chronic anemia (baseline hemoglobin of 10), ongoing tobacco abuse. Last confinement 2015 for hyperkalemia, acute renal failure. Patient noted chest discomfort symptoms after chopping wood today. No unusual shortness of breath. Heartbeat felt a little weird. Patient felt shaky. Patient evaluated at urgent care center. Atrial flutter noted EKG. Patient directed to ER. IV Lopressor administered upon arrival at the ER. Patient converted to NSR. Patient currently comfortable. Medical History as above Surgical History : Bone marrow biopsy, cholecystectomy Family History : Heart disease Personal/Social history : 2 cigarettes a day, past alcohol abuse, retired from construction work Allergies Allergy/AdvReac Type Severity Reaction Status Date / Time shellfish derived Allergy Intermediate HIVES Verified 07/18/22 18:12 Home Medications Medication Instructions Recorded Confirmed Type aspirin 81 mg tablet,delayed 81 mg PO QAM 09/29/19 07/18/22 History release atorvastatin 80 mg tablet 80 mg PO QPM 09/29/19 07/18/22 History metoprolol tartrate 25 mg tablet See Rx Instructions .Route .COMPLEX 09/29/19 07/18/22 History nitroglycerin 0.4 mg sublingual 0.4 mg sublingual DIRECTED PRN 09/29/19 07/18/22 History tablet Chest Pain calcium citrate 250 mg 1 tab PO HS 10/05/20 07/18/22 History calcium-vitamin D3 5 mcg (200 unit) tablet magnesium oxide 250 mg PO BID 04/16/21 07/18/22 History acyclovir 400 mg tablet 400 mg PO AMHS 07/18/22 07/18/22 History ciprofloxacin HCl 0.3 % eye drops 1 - 2 drp ophthalmic (eye) UD 07/18/22 07/18/22 History dexamethasone 4 mg tablet 40 mg PO WK 07/18/22 07/18/22 History famotidine 20 mg tablet 20 mg PO BID 07/18/22 07/18/22 History lenalidomide 10 mg capsule 10 mg PO UD 07/18/22 07/18/22 History (Revlimid) mirtazapine 15 mg tablet 15 mg PO HS 07/18/22 07/18/22 History ondansetron HCl 8 mg tablet 8 mg PO Q8 PRN Nausea 07/18/22 07/18/22 History prochlorperazine maleate 10 mg 10 mg PO Q6 PRN Nausea 07/18/22 07/18/22 History tablet Past Med/Surg History Medical History Abdominal aortic aneurysm 5cm per 03/2020 CT- under surveillance by vascular Anemia Arthritis Bilateral pneumonia hospitalized for this 07/2020 [facility] Bladder cancer dx March 2020; hx TURBT 04/27/2020 [facility] Chronic steroid use COPD (chronic obstructive pulmonary disease) no inh Coronary artery disease BMS (2014) follows with Dr. Geiger GERD (gastroesophageal reflux disease) History of COVID-19 10/05/19 > tested at [facility] History of kidney stones History of myocardial infarction 2014 History of pancreatitis Hyperlipidemia Hypertension Lung nodule, multiple per , refusing work up at present time Multiple myeloma reason for dexamethasone, revlimid & velcade Surgical History History of cardiac catheterization 2014 [facility] [place] - 1 stent History of cholecystectomy History of colonoscopy History of cystoscopy History of tooth extraction Family History Other Heart disease Social History Smoking Status: Current every day smoker Tobacco Type: Cigarettes Years Smoked: 40; Second Hand Exposure: Yes; Hx Alcohol Use: No Hx Substance Use: Yes Substance Use Type Other:: marijuana once weekly Preferred Language: Kinyarwanda Communication Ability: Effective Visual Impairment: No Limitations Reinsurance Analyst Required: No Beliefs That Will Affect Care: None marital status: Current Living Situation: Spouse Feels Safe at Home: Yes Safety Concerns: Feels Safe At This Time Assistive Devices: None Review of Systems Review of Systems: As per HPI, all other systems reviewed and negative Physical Exam Physical Exam: GENERAL: Comfortable, chronically ill, mild hearing impairment, no respiratory distress SKIN: Pallor, warm HEENT: Sparse hair, pale palpebral conjunctivae, no ptosis, dry buccal mucosa NECK : Supple, no tenderness CHEST : Decreased breath sounds, occasional expiratory wheezes no tenderness HEART : RRR, no obvious murmurs ABDOMEN: no distention, nontender EXTREMITIES : No LE swelling, no LE tenderness, no other conspicuous deformities noted NEUROLOGIC : Coherent, no facial asymmetry, no other gross focality Results & Data Results & Data ([facility]) Vital Signs (Past 12 Hours) Vital Signs Temp Pulse Pulse Resp BP BP Pulse Ox 07/18/22 19:19 67 20 92/65 L 99 07/18/22 18:30 68 24 98 07/18/22 18:30 94/70 L 07/18/22 18:22 69 20 99 07/18/22 18:22 86/62 L 07/18/22 18:20 65 25 H 100 07/18/22 18:20 98/61 L 07/18/22 18:15 72 16 99 07/18/22 18:10 91/65 L 07/18/22 18:10 76 21 07/18/22 18:08 82 25 H 100 07/18/22 18:08 111/69 07/18/22 18:00 87 27 H 97 07/18/22 18:00 95/64 L 07/18/22 17:50 83 25 H 07/18/22 18:03 97 H 95/64 L 07/18/22 17:01 36.8 C 102 H 16 97/68 L 99 O2 Del Method 07/18/22 19:19 Room Air 07/18/22 18:30 Room Air 07/18/22 18:30 07/18/22 18:22 Room Air 07/18/22 18:22 07/18/22 18:20 Room Air 07/18/22 18:20 07/18/22 18:15 Room Air 07/18/22 18:10 07/18/22 18:10 07/18/22 18:08 Room Air 07/18/22 18:08 07/18/22 18:00 Room Air 07/18/22 18:00 07/18/22 17:50 07/18/22 18:03 07/18/22 17:01 Room Air Laboratory Results Laboratory Results WBC 10.50 K/ul (4.8-10.8) 07/18/22 17: RBC 3.19 M/uL (4.63-6.08) L 07/18/22 17:28 Hgb 10.3 g/dl (14.0-18.0) L 07/18/22 17:28 Hct 31.4 % (40.1-51.0) L 07/18/22 17:28 MCV 98.4 fL (80.0-100.0) 07/18/22 17:28 MCH 32.3 pg (25.0-34.0) 07/18/22 17:28 MCHC 32.8 g/dL (32.0-36.0) 07/18/22 17:28 RDW Std Deviation 60.2 fL (36.4-46.3) H 07/18/22 17:28 RDW Coeff of Andrew 16.6 % (11.5-14.5) H 07/18/22 17: Plt Count 216 K/uL (130-400) 07/18/22 17:28 MPV 11.0 fL (9.4-12.4) 07/18/22 17: Immature Gran % (Auto) 1.0 % 07/18/22 17: Neut % (Auto) 79.4 % 07/18/22 17: Lymph % (Auto) 9.8 % 07/18/22 17: [place] % (Auto) 7.0 % 07/18/22 17: Eos % (Auto) 2.4 % 07/18/22: Baso % (Auto) 0.4 % 07/18/22: Neut # (Auto) 8.33 K/uL (1.4-6.5) H 07/18/22: Lymph # (Auto) 1.03 K/uL (1.2-3.4) L 07/18/22: [place] # (Auto) 0.74 K/uL (0.24-0.82) 07/18/22: Eos # (Auto) 0.25 K/uL (0-0.50) 07/18/22: Baso # (Auto) 0.04 K/uL (0-0.2) 07/18/22: Immature Gran # (Auto) 0.11 K/uL (0.00-0.02) H 07/18/22: Acanthocytes (Spur) 1+ 07/18/22: PT 11.1 Seconds (9.0-12.0) 07/18/22: INR 1.0 (0.9-1.1) 07/18/22: APTT 23.8 Seconds (21.0-31.0) 07/18/22: PTT Ratio 0.9 07/18/22: Sodium 135 mmol/L (136-145) L 07/18/22: Potassium 4.7 mmol/L (3.5-5.1) 07/18/22: Chloride 102 mmol/L (98-107) 07/18/22: Carbon Dioxide 24 mmol/L (21-32) 07/18/22: Anion Gap 9 (3-11) 07/18/22: BUN 31 mg/dl (6-23) H 07/18/22: Creatinine 1.55 mg/dl (0.6-1.4) H 07/18/22: Est Cr Clr Drug Dosing 40.2 ml/min 07/18/22 17: Est GFR ( Amer) 51.8 ml/min 07/18/22: Est GFR (Non-Af Amer) 44.7 ml/min 07/18/22 17:28 BUN/Creatinine Ratio 20.0 (10-20) 07/18/22 17:28 Glucose 85 mg/dl (70-99(Fasting)) 07/18/22 17:28 Lactate 1.1 mmol/L (0.4-2.0) 07/18/22 19:45 Calcium 9.0 mg/dl (8.5-10.1) 07/18/22 17:28 Magnesium 2.0 mg/dl (1.7-2.4) 07/18/22 17:28 Total Bilirubin 0.6 mg/dl (0.2-1.0) 07/18/22 17:28 Direct Bilirubin 0.1 mg/dl (0-0.2) 07/18/22 17:28 AST 10 U/L (13-39) L 07/18/22 17:28 ALT 12 U/L (7-52) 07/18/22 17:28 Alkaline Phosphatase 62 U/L (34-104) 07/18/22 17:28 Troponin I High Sens 22.8 pg/ml (0-20) H 07/18/22 19:45 Total Protein 6.6 gm/dl (6.0-8.3) 07/18/22 17:28 Albumin 3.5 gm/dl (3.4-5.0) 07/18/22 17:28 TSH 1.500 uIu/ml (0.300-4.500) 07/18/22 17:28 SARS-CoV-2, RNA, NAAT NEGATIVE (NEGATIVE) 07/18/22 17:58 Impressions Chest X-Ray 07/18/22 17:25 SINGLE VIEW CHEST CLINICAL HISTORY: Atypical chest pain FINDINGS: An AP, portable, upright chest radiograph is compared to study dated 06/17/2022 and correlated with chest CT dated 04/25/2020. The heart is enlarged noting atherosclerotic calcification of the thoracic aorta. The pulmonary vasculature is noncongested. Emphysema and chronic interstitial thickening is similar to previous. Foci of parenchymal scarring are seen throughout both lungs. This airspace opacities of the left lung base could represent scarring/atelectasis versus pneumonia. No pneumothorax is seen. The skeletal structures are osteopenic. There are healed right-sided rib fractures. IMPRESSION: 1. Cardiomegaly and emphysema without radiographic evidence of congestive failure. 2. Left basilar opacities could represent scarring/atelectasis versus an infectious/inflammatory pneumonitis. Clinical correlation will be required. Radiographic follow-up to resolution is recommended. ACT 112: Negative or not required by law. Electronically signed by: Barrington Knapp M.D. 07/18/2022 5:48 PM Diagnostic Findings EKG as per my interpretation : Rate 100, A. fib, normal axis, no ischemia
[2022-07-18] MEDS ORDERED: HEPARIN SODIUM/DEXTROSE 25,000 UNITS/500 ML BAG IV SCH (20:45)
[2022-07-18] MEDS: HEPARIN 25000 UNIT/500 ML D5W IV ONE ×2 (21:28→21:39)
[2022-07-18] MEDS: Heparin IV Adult Wt-Based Low-Dose *NO* Bolus Protocol IV SCH ×2 (21:29→21:39)
[2022-07-18] MEDS ORDERED: ALBUT/IPRATROP 3MG/0.5MG NEB 3 ML VIAL NEB PRN (23:52)
[2022-07-18] MEDS ORDERED: traMADol HCL 50 MG TABLET PO PRN (23:52)
[2022-07-18] MEDS ORDERED: METOPROLOL TARTRATE 25 MG TAB PO SCH (23:52)
[2022-07-18] MEDS ORDERED: NITROGLYCERIN SL 0.4 MG/TAB TAB SL PRN ×2 (23:52)
[2022-07-18] MEDS ORDERED: ATORVASTATIN 40 MG TAB PO SCH (23:52)
[2022-07-18] MEDS ORDERED: MIRTAZAPINE TAB 15 MG TAB PO SCH (23:52)
[2022-07-18] MEDS ORDERED: PROMETHAZINE HCL 6.25 MG in SODIUM CHLORIDE 0.9% 50 ML IV PRN (23:52)
[2022-07-18] MEDS ORDERED: ACETAMINOPHEN 325 MG TAB PO PRN (23:52)
[2022-07-18] MEDS ORDERED: CIPROFLOXACIN HCL 0.3% OP SOLN 2.5 ML BTL OP SCH (23:52)
[2022-07-19] MEDS: ACYCLOVIR 400 MG TAB PO SCH ×2 (00:45→08:17)
[2022-07-19] MEDS: FAMOTIDINE 20 MG TAB PO SCH ×2 (00:52→08:17)
[2022-07-19 04:16] LABS: Basophils # (auto) 0.04 K/uL (0-0.2); Basophils % (auto) 0.5 %; Eosinophils # (auto) 0.43 K/uL (0-0.50); Eosinophils % (auto) 5.5 %; Hematocrit (blood only) 25.9 % (40.1-51.0); Hemoglobin 8.4 g/dl (14.0-18.0); Immature Granulocytes # (auto) 0.08 K/uL (0.00-0.02); Lymphocytes # (auto) 1.25 K/uL (1.2-3.4); Mean Corpuscular Hemoglobin 31.9 pg (25.0-34.0); Mean Corpuscular Hgb Conc 32.4 g/dL (32.0-36.0); Mean Corpuscular Volume 98.5 fL (80.0-100.0); Mean Platelet Volume 10.9 fL (9.4-12.4); Monocytes % (auto) 6.4 %; Neutrophils % (auto) 70.6 %; Platelet Count 166 K/uL (130-400); RDW Coefficient of Variation 16.8 % (11.5-14.5); RDW Standard Deviation 60.5 fL (36.4-46.3); Red Blood Count 2.63 M/uL (4.63-6.08)
[2022-07-19 04:28] LABS: Partial Thromboplastin Ratio 1.2
[2022-07-19] MEDS ORDERED: HEPARIN SOD (PORCINE) 1000 UNIT/ML IV ONE (04:34)
[2022-07-19 04:46] LABS: BUN Creatinine Ratio 21.5 (10-20); Calcium 7.9 mg/dl (8.5-10.1); Creatinine Clr Calc Pharmacy 49.4 ml/min; Est GFR (African American) 64.1 ml/min; Est GFR (Non-African American) 55.3 ml/min; Potassium 4.2 mmol/L (3.5-5.1)
[2022-07-19] MEDS ORDERED: METOPROLOL TARTRATE 25 MG TAB PO SCH (09:00)
[2022-07-19] MEDS ORDERED: ASPIRIN 81 MG ECTAB PO SCH (09:00)
--- NOTE | 2022-07-19 11:26 | Cardiology Consultation ---
Date of Consultation July 19, 2022 Assessment & Plan (1) Atrial flutter: (2) Dehydration: (3) Multiple myeloma: (4) Anemia: Plan Patient with recurrent atrial fib/flutter on admission. Converting to NSR in ER with IV metoprolol. Currently maintaining NSR and remains asymptomatic from cardiac standpoint. Minimally elevated HS troponin at 22, likely due to atrial flutter with elevated rates. He was started on IV heparin overnight. Hbg dropped from 10.3 to 8.4. May also be dilutional component. No evidence of bleeding complication. he has a history of anemia and currently undergoing maintenance therapy for multiple myeloma. we discussed risks/benefits of anticoagulation. patient reports long history of "bleeding issues" and blood thinners "scare me" He wishes to refrain from use. He is understanding of stroke risks. During prior episode of atrial fib many years ago, IV heparin was initiated and resulted in significant hematuria and anemia. he was not anticoagulated at that time as well. Will stop IV heparin. Will increase metoprolol to 50 mg BID (prior dose was 50 in AM and 25 mg in PM). He will monitor for recurrent arrhythmias. No further cardiac testing warranted at this time. stable for discharge. Case discussed with Dr. Hager. Will follow. Supervising Physician Co-Signing Physician Notes Patient was personally seen and personally examined. Assessment and plan as well outlined above. Patient presented with transient atrial fibrillation flutter with spontaneous conversion to sinus rhythm following IV metoprolol. EKG without acute ischemic changes patient clinically stable from cardiac standpoint with plans of treatment as above. Increase metoprolol dosing. Patient has PCP follow-up on 07/25 High risk patient for anticoagulation If atrial fibrillation becomes recurrent or persistent could consider evaluation for watchman procedure History of Present Illness Reason for Consultation: Atrial flutter Requesting Physician: Dr. Vences Attending Physician: Dr. Hager History of Present Illness Patient is a 72 year old male known to [facility], Dr. Geiger/Eddie for history of chronic coronary artery disease with known total right coronary artery occlusion and bare metal stenting of on obtuse marginal vessel in the setting of STEMI 01/2015, AAA followed by vascular surgery, dyslipidemia, hypertension, paroxysmal atrial flutter many years ago in setting of acute dehydration, electrolyte disturbances. At that time he was started on anticoagulation therapy but developed significant anemia and hematuria, and an ticoagulation therapy was stopped. He was then diagnosed with bladder CA as well. Patient also has multiple myeloma and gets weekly chemotherapy maintenance therapies. 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 He then developed mild chest tightness and palpitations. he went to urgent care and they found recurrent atrial flutter. He was then sent to ER for further evaluation and treatment. Upon arrival in ER he was given several doses of IV metoprolol with improvement in his symptoms and converted to NSR. He was started on IV heparin overnight. he was started on IV fluids for underlying dehydration. Patient admits he "overdid it yesterday". he reports working hard all day without significant intake of fluids or nutrition. At time of consult, patient's primary concern is significant nasal congestion and cough. He was treated for bronchitis several weeks ago by PCP but feels this never fully improved. He denies recurrent chest pain or palpitations. maintaining NSR overnight. Hbg dropped from mid 10's to mid 8's this morning on IV heparin. Possibly dilutional too. No hematuria. Allergies Allergy/AdvReac Type Severity Reaction Status Date / Time shellfish derived Allergy Intermediate HIVES Verified 07/18/22 18:12 Home Medications Medication Instructions Recorded Confirmed Type aspirin 81 mg tablet,delayed 81 mg PO QAM 09/29/19 07/18/22 History release atorvastatin 80 mg tablet 80 mg PO QPM 09/29/19 07/18/22 History nitroglycerin 0.4 mg sublingual 0.4 mg sublingual DIRECTED PRN 09/29/19 07/18/22 History tablet Chest Pain calcium citrate 250 mg 1 tab PO HS 10/05/20 07/18/22 History calcium-vitamin D3 5 mcg (200 unit) tablet magnesium oxide 250 mg PO BID 04/16/21 07/18/22 History acyclovir 400 mg tablet 400 mg PO AMHS 07/18/22 07/18/22 History ciprofloxacin HCl 0.3 % eye drops 1 - 2 drp ophthalmic (eye) UD 07/18/22 07/18/22 History dexamethasone 4 mg tablet 40 mg PO WK 07/18/22 07/18/22 History famotidine 20 mg tablet 20 mg PO BID 07/18/22 07/18/22 History lenalidomide 10 mg capsule 10 mg PO UD 07/18/22 07/18/22 History (Revlimid) mirtazapine 15 mg tablet 15 mg PO HS 07/18/22 07/18/22 History ondansetron HCl 8 mg tablet 8 mg PO Q8 PRN Nausea 07/18/22 07/18/22 History prochlorperazine maleate 10 mg 10 mg PO Q6 PRN Nausea 07/18/22 07/18/22 History tablet metoprolol tartrate 25 mg tablet 50 mg PO BID #120 tabs 07/19/22 Rx Patient History Medical History Abdominal aortic aneurysm 5cm per 03/2020 CT- under surveillance by vascular Anemia Arthritis Bilateral pneumonia hospitalized for this 07/2020 [facility] Bladder cancer dx March 2020; hx TURBT 04/27/2020 [facility] Chronic steroid use COPD (chronic obstructive pulmonary disease) no inh Coronary artery disease BMS (2014) follows with Dr. Juanjo LILLY (gastroesophageal reflux disease) History of COVID-19 10/05/19 > tested at [place] History of kidney stones History of myocardial infarction 2013 History of pancreatitis Hyperlipidemia Hypertension Lung nodule, multiple per , refusing work up at present time Multiple myeloma reason for dexamethasone, revlimid & velcade Surgical History History of cardiac catheterization 2013 [facility] [place] - 1 stent History of cholecystectomy History of colonoscopy History of cystoscopy History of tooth extraction Family History Other Heart disease Social History Smoking Status: Current every day smoker Tobacco Type: Cigarettes Years Smoked: 40; Second Hand Exposure: Yes; Hx Alcohol Use: No Hx Substance Use: Yes Substance Use Type Other:: marijuana once weekly Preferred Language: Kazakh Communication Ability: Effective Visual Impairment: No Limitations Housekeeping Lead Required: No Beliefs That Will Affect Care: None marital status: Current Living Situation: Spouse Feels Safe at Home: Yes Safety Concerns: Feels Safe At This Time Assistive Devices: Cane Review of Systems Review of Systems: All systems reviewed & are unremarkable except as noted in HPI & below Physical Exam Constitutional: WD/WN, vitals as above no acute distress Neck: trachea midline, no thyromegaly Respiratory: no respiratory distress Auscultation: + diminished lung sounds and + wheezes (faint expiratory wheeze) Cardiovascular: Rate/Rhythm: regular rate and regular rhythm Heart Sounds: + murmur (I/ systolic murmur apex) Neurologic: PERRL, EOMI, accommodation nl, no face palsy, no dysarthria Psychiatric: A+Ox3, euthymic affect Results & Data ([facility]) Vital Signs (Past 12 Hours) Vital Signs Temp Pulse Resp BP Pulse Ox O2 Del Method 07/19/22 10:22 Room Air 07/19/22 02:15 Room Air 07/19/22 05:15 36.9 C 64 20 104/62 95 Room Air 07/19/22 02:05 36.9 C 74 20 136/75 98 Room Air 07/19/22 01:52 72 18 100/62 97 Room Air 07/19/22 00:32 72 17 90/51 L 97 Room Air Laboratory Results Laboratory Results WBC 7.80 K/ul (4.8-10.8) 07/19/22 04:07 RBC 2.63 M/uL (4.63-6.08) L 07/19/22 04:07 Hgb 8.4 g/dl (14.0-18.0) L 07/19/22 04:07 Hct 25.9 % (40.1-51.0) L 07/19/22 04:07 MCV 98.5 fL (80.0-100.0) 07/19/22 04:07 MCH 31.9 pg (25.0-34.0) 07/19/22 04:07 MCHC 32.4 g/dL (32.0-36.0) 07/19/22 04:07 RDW Std Deviation 60.5 fL (36.4-46.3) H 07/19/22 04:07 RDW Coeff of Andrew 16.8 % (11.5-14.5) H 07/19/22 04:07 Plt Count 166 K/uL (130-400) 07/19/22 04:07 MPV 10.9 fL (9.4-12.4) 07/19/22 04:07 Immature Gran % (Auto) 1.0 % 07/19/22 04:07 Neut % (Auto) 70.6 % 07/19/22 04:07 Lymph % (Auto) 16.0 % 07/19/22 04:07 [place] % (Auto) 6.4 % 07/19/22 04:07 Eos % (Auto) 5.5 % 07/19/22 04:07 Baso % (Auto) 0.5 % 07/19/22 04:07 Neut # (Auto) 5.50 K/uL (1.4-6.5) 07/19/22 04:07 Lymph # (Auto) 1.25 K/uL (1.2-3.4) 07/19/22 04:07 [place] # (Auto) 0.50 K/uL (0.24-0.82) 07/19/22 04:07 Eos # (Auto) 0.43 K/uL (0-0.50) 07/19/22 04:07 Baso # (Auto) 0.04 K/uL (0-0.2) 07/19/22 04:07 Immature Gran # (Auto) 0.08 K/uL (0.00-0.02) H 07/19/22 04:07 Acanthocytes (Spur) 1+ 07/18/22 17:28 PT 11.1 Seconds (9.0-12.0) 07/18/22 17:28 INR 1.0 (0.9-1.1) 07/18/22 17:28 APTT 33.0 Seconds (21.0-31.0) H 07/19/22 04:07 PTT Ratio 1.2 07/19/22 04:07 Sodium 136 mmol/L (136-145) 07/19/22 04:07 Potassium 4.2 mmol/L (3.5-5.1) 07/19/22 04:07 Chloride 107 mmol/L (98-107) 07/19/22 04:07 Carbon Dioxide 24 mmol/L (21-32) 07/19/22 04:07 Anion Gap 5 (3-11) 07/19/22 04:07 BUN 28 mg/dl (6-23) H 07/19/22 04:07 Creatinine 1.30 mg/dl (0.6-1.4) 07/19/22 04:07 Est Cr Clr Drug Dosing 49.4 ml/min 07/19/22 04:07 Est GFR ( Amer) 64.1 ml/min 07/19/22 04:07 Est GFR (Non-Af Amer) 55.3 ml/min 07/19/22 04:07 BUN/Creatinine Ratio 21.5 (10-20) H 07/19/22 04:07 Glucose 82 mg/dl (70-99(Fasting)) 07/19/22 04:07 Lactate 1.1 mmol/L (0.4-2.0) 07/18/22 19:45 Calcium 7.9 mg/dl (8.5-10.1) L 07/19/22 04:07 Magnesium 2.0 mg/dl (1.7-2.4) 07/18/22 17:28 Total Bilirubin 0.6 mg/dl (0.2-1.0) 07/18/22 17:28 Direct Bilirubin 0.1 mg/dl (0-0.2) 07/18/22 17:28 AST 10 U/L (13-39) L 07/18/22 17:28 ALT 12 U/L (7-52) 07/18/22 17:28 Alkaline Phosphatase 62 U/L (34-104) 07/18/22 17:28 Troponin I High Sens 22.8 pg/ml (0-20) H 07/18/22 19:45 Total Protein 6.6 gm/dl (6.0-8.3) 07/18/22 17:28 Albumin 3.5 gm/dl (3.4-5.0) 07/18/22 17:28 TSH 1.500 uIu/ml (0.300-4.500) 07/18/22 17:28 Nasal Screen MRSA (PCR) Negative (Negative) 07/19/22 Unknown SARS-CoV-2, RNA, NAAT NEGATIVE (NEGATIVE) 07/18/22 17:58 Impressions Chest X-Ray 07/18/22 17:25 SINGLE VIEW CHEST CLINICAL HISTORY: Atypical chest pain FINDINGS: An AP, portable, upright chest radiograph is compared to study dated 06/17/2022 and correlated with chest CT dated 04/25/2020. The heart is enlarged noting atherosclerotic calcification of the thoracic aorta. The pulmonary v asculature is noncongested. Emphysema and chronic interstitial thickening is similar to previous. Foci of parenchymal scarring are seen throughout both lungs. This airspace opacities of the left lung base could represent scarring/atelectasis versus pneumonia. No pneumothorax is seen. The skeletal structures are osteopenic. There are healed right-sided rib fractures. IMPRESSION: 1. Cardiomegaly and emphysema without radiographic evidence of congestive failure. 2. Left basilar opacities could represent scarring/atelectasis versus an infectious/inflammatory pneumonitis. Clinical correlation will be required. Radiographic follow-up to resolution is recommended. ACT 112: Negative or not required by law. Electronically signed by: Barrington Knapp M.D. 07/18/2022 5:48 PM Diagnostic Findings Telemetry reviewed: NSR overnight in the mid 70's. No recurrent arrhythmias. EKG on admission; Atrial fibrillation Minimal voltage criteria for LVH, may be normal variant Atrial fibrillation has replaced Sinus rhythm repeat EKG this morning: Normal sinus rhythm Minimal voltage criteria for LVH Medications Administered Current Inpatient Medications Acetaminophen (Acetaminophen 325 Mg Tab) 650 mg PO Q4H PRN PRN Reason: Pain or Fever Stop: 08/17/22 23:51 Acyclovir (Acyclovir 400 Mg Tab) 400 mg PO BID EZEKIEL Stop: 08/17/22 23:51 Last Admin: 07/19/22 08:17 Dose: 400 mg Albuterol (Albut/Ipratrop 3mg/0.5mg Neb 3 Ml Vial) 3 ml NEB Q2H PRN; Protocol PRN Reason: Wheezing Stop: 08/17/22 23:51 Aspirin (Aspirin 81 Mg Ectab) 81 mg PO QAM EZEKIEL Stop: 08/18/22 08:59 Last Admin: 07/19/22 08:17 Dose: 81 mg Atorvastatin Calcium (Atorvastatin 40 Mg Tab) 80 mg PO QPM EZEKIEL Stop: 08/17/22 23:51 Last Admin: 07/19/22 00:52 Dose: 80 mg Famotidine (Famotidine 20 Mg Tab) 20 mg PO BID EZEKIEL Stop: 08/17/22 23:51 Last Admin: 07/19/22 08:17 Dose: 20 mg Promethazine HCl 6.25 mg/ (Sodium Chloride) 50.25 mls @ 201 mls/hr IV Q6H PRN PRN Reason: Nausea And Vomiting Stop: 08/17/22 23:51 Metoprolol Tartrate (Metoprolol Tartrate 50 Mg Tab) 50 mg PO BID EZEKIEL Stop: 08/18/22 20:59 Mirtazapine (Mirtazapine Tab 15 Mg Tab) 15 mg PO HS EZEKIEL Stop: 08/17/22 23:51 Last Admin: 07/19/22 00:46 Dose: 15 mg Miscellaneous (Lenalidomide [Revlimid]: Order Awaiting Action) 1 each N/A QS EZEKIEL Stop: 08/18/22 07:59 Last Admin: 07/19/22 08:16 Dose: Not Given Nitroglycerin (Nitroglycerin Sl 0.4 Mg/Tab Tab) 0.4 mg SL UD PRN PRN Reason: Chest Pain Stop: 08/17/22 23:51 Tramadol HCl (Tramadol Hcl 50 Mg Tablet) 25 - 50 mg PO Q4H PRN PRN Reason: Pain Stop: 08/17/22 23:51 (1) Multiple myeloma Multiple myeloma remission status: unspecified Qualified Code(s): C90.00 - Multiple myeloma not having achieved remission
[2022-07-19 11:30] LABS: Partial Thromboplastin Time 28.1 Seconds (21.0-31.0)
--- NOTE | 2022-07-19 12:59 | Discharge Summary ---
Date of Service July 19, 2022 Admission HPI Per Admitting Provider History obtained from patient, family, and records. Medical history significant for CAD status post stent, AAA, PVD, paroxysmal atrial flutter, hypertension, hyperlipidemia, multiple myeloma ongoing chemotherapy, bladder cancer status post surgery on maintenance BCG, CRI (baseline creatinine 1.4-1.5), chronic anemia (baseline hemoglobin of 10), ongoing tobacco abuse. Last confinement 2015 for hyperkalemia, acute renal failure. Patient noted chest discomfort symptoms after chopping wood today. No unusual shortness of breath. Heartbeat felt a little weird. Patient felt shaky. Patient evaluated at urgent care center. Atrial flutter noted EKG. Patient directed to ER. IV Lopressor administered upon arrival at the ER. Patient converted to NSR. Patient currently comfortable. Medical History as above Surgical History : Bone marrow biopsy, cholecystectomy Family History : Heart disease Personal/Social history : 2 cigarettes a day, past alcohol abuse, retired from construction work Admission Exam Per Admitting Provider GENERAL: Comfortable, chronically ill, mild hearing impairment, no respiratory distress SKIN: Pallor, warm HEENT: Sparse hair, pale palpebral conjunctivae, no ptosis, dry buccal mucosa NECK : Supple, no tenderness CHEST : Decreased breath sounds, occasional expiratory wheezes no tenderness HEART : RRR, no obvious murmurs ABDOMEN: no distention, nontender EXTREMITIES : No LE swelling, no LE tenderness, no other conspicuous deformities noted NEUROLOGIC : Coherent, no facial asymmetry, no other gross focality Principal Diagnosis A flutter with rapid ventricular response Discharge Exam GENERAL: Alert and oriented x3. NAD, on RA. HEENT: No pallor, no icterus. Pupils equal, round and reactive to light. Oral mucosa moist. NECK: No JVD, no neck masses. HEART: S1 and S2 heard. Regular rate and rhythm. + murmur, no gallop. RESPIRATORY SYSTEM: Normal AP diameter. No accessory muscle use. No wheezing, no crackles. ABDOMEN: Soft, bowel sounds present, nontender, no distention. CENTRAL NERVOUS SYSTEM: No facial droop. Speech is clear. Obeys simple commands. Moves extremities. EXTREMITIES: No edema, no erythema seen. Discharge Data Allergies Allergy/AdvReac Type Severity Reaction Status Date / Time shellfish derived Allergy Intermediate HIVES Verified 07/18/22 18:12 Consultations 07/18/22 19:30 ED Decision to Admit Stat 07/18/22 23:52 Consult Cardiology Routine Hospital Course (1) Atrial flutter with rapid ventricular response: Plan 72-year-old man with PMH of CAD status post stent, AAA, PVD, paroxysmal a flutter, HTN, HLD, multiple myeloma undergoing chemo, bladder cancer status post surgery on maintenance BCG, CKD, chronic anemia with baseline hemoglobin around 10, ongoing tobacco abuse presented to our ED 07/18 at referral of urgent care for A. flutter noted on EKG. Patient went to urgent care due to feeling chest discomfort after chopping wood yesterday. Patient denies any further chest pain at hospital. Admitting EKG with atrial fibrillation with rate of 99. Troponin x2 borderline and flat trend. Patient with no chest pain. Patient is spontaneously converted to sinus rhythm at the ED. Patient was put on IV heparin drip and cardiology evaluated the patient, due to risks of bleeding in the past, patient is not deemed a candidate for anticoagulation. Pt himself denies anticoagulation and accepts the risk of stroke when not on it. His metoprolol dose has been increased by cardiology, and he is stable for discharge per cardiology point of view. His hemoglobin at presentation was around 10 came down to around mid 8 today likely secondary to dilutional component as evident by dropping off his WBC and platelet counts. Pt denies any bleeding or black stool/blood in stool. Patient feels fine, and would like to go home. He is being discharged to home with following instruction at the point of discharge: Follow-up with the primary care physician within a week time and likely you will need blood work CBC/CMP/magnesium level. Follow-up with your cardiology as an outpatient. Avoid NSAIDs like Motrin or Aleve as an outpatient. Cardiology evaluated you and increased your metoprolol to 50 Mg twice daily. Take your medications as prescribed. By CMS guidelines, a determination that the admission or continued stay is not medically necessary has been made by a member of the Utilization Review committee and a physician for this hospital stay. Therefore, a Code 44 will be completed and the inpatient admission will be changed to outpatient. Former[facility] Attestation I certify that this patient is under my care and that I, or a physicians early childhood teacher assistant working with me, had a face to-face encounter that meets the [id number] requirements with this patient. The encounter with the patient was in whole, or in part, for the following medical condition, which is the primary reason for home health care (list medical condition): I certify that, based on my findings, the following services are medically necessary home health services: My clinical findings support the need for the above services because: Further, I certify that my clinical findings support that this patient is homebound (i.e. absences from home require considerable and taxing effort and are for medical reasons or adventist services or infrequently or of short duration when for other reasons) because: Certification for Home Health Services: Based on the above findings, I certify that this patient is confined to the home and needs intermittent detention care, physical therapy and/or speech therapy or continues to need occupational therapy. The patient is under my care, and I have initiated the establishment of the plan of care. This patient will be followed by a physician who will periodically review the plan of care. Total Time Total Time Spent Total Time Spent (In Minutes): 40 Discharge Plan Discharge Items Patient Disposition: Home - Self-Care Reason For Visit: AF Discharge Diagnosis: Recurrent A. fib Activity: Resume your previous activity Non-emergency contact: Primary Care Provider Call non-emergency contact if: you have any medication questions, your symptoms worsen and your temperature is above 101 Follow-up/Referrals: Savanah Geiger DO [Primary Care Provider] - (Date & Time 07/25/2022 11:10 AM Provider Savanah Geiger DO Department [facility] ) Diet: Heart Healthy Addtl Attending Provider Instructions: Follow-up with the primary care physician within a week time and likely you will need blood work CBC/CMP/magnesium level. Follow-up with your cardiology as an outpatient. Avoid NSAIDs like Motrin or Aleve as an outpatient. Cardiology evaluated you and increased your metoprolol to 50 Mg twice daily. Take your medications as prescribed. Pending Studies at Discharge: No Stand-Alone Forms: My [employer], Smoking Cessation Medications and DC Order Prescriptions: Continued atorvastatin 80 mg tablet 80 mg PO QPM aspirin 81 mg tablet,delayed release (DR/EC) 81 mg PO QAM nitroglycerin 0.4 mg tablet, sublingual 0.4 mg sublingual DIRECTED PRN (Reason: Chest Pain) Rx Instructions: PLACE ONE TABLET UNDER THE TONGUE EVERY 5 MINUTES FOR UP TO 3 DOSES OVER 15 MINUTES IF NEEDED FOR CHEST PAIN calcium citrate-vitamin D3 250 mg-5 mcg (200 unit) Tablet 1 tab PO HS magnesium oxide 250 mg magnesium tablet 250 mg PO BID lenalidomide [Revlimid] 10 mg capsule 10 mg PO UD Rx Instructions: take 1 capsule once a day for 14 days on and 7 days off acyclovir 400 mg tablet 400 mg PO AMHS dexamethasone 4 mg tablet 40 mg PO WK Rx Instructions: pt doesnt remember day mirtazapine 15 mg tablet 15 mg PO HS famotidine 20 mg tablet 20 mg PO BID ondansetron HCl 8 mg tablet 8 mg PO Q8 PRN (Reason: Nausea) prochlorperazine maleate 10 mg tablet 10 mg PO Q6 PRN (Reason: Nausea) ciprofloxacin HCl 0.3 % Drops 1 - 2 drp OPHTHALMIC (EYE) UD Rx Instructions: put 1-2 drps in affected eye(s) every 2hr for 2 days, then every 4 hours for 5 days Changed metoprolol tartrate 25 mg tablet 50 mg PO BID Qty: 120 0RF Rx Instructions: take 50 mg twice a day. Discharge Orders: Discharge Order (Routine); Ordered 07/19/22 Ordered By: Jonh Vences Admission Data Admit Date/Time: 07/18/22 20:45 Attending Provider: Jonh Vences Admit Provider: Alejandro Rosario Primary Care Provider: Savanah Geiger Other Providers: Alejandro Rosario ; Reggie Kelly ; Rodolfo Rudolph ; Brian Hager ; Nirav Geiger ; CharlieDominik bermudez ; Octavio Yoon ; Leda Myers ; Joy Boone ; Yamel Tsai ; Parth Thompson
--- NOTE | 2022-07-19 19:04 | Communication Note ---
Date of Service: July 19, 2022 Code 44 attestation: 72-year-old male with atrial flutter/fibrillation was converted to sinus rhythm and was evaluated by industrial sewer. He was discharged home by the attending physician in a stable medical state, By CMS guidelines, a determination that the admission or continued stay is not medically necessary has been made by a member of the UR committee and a physician for this hospital stay, therefore a Code 44 will be completed and the Inpatient admission will be changed to outpatient. Dr Rubi Moura Member UR Comittee
[2022-07-19] MEDS ORDERED: METOPROLOL TARTRATE 50 MG TAB PO SCH (21:00)
--- NOTE | 2022-07-20 05:46 | Electrocardiogram Report ---
Test Reason : Blood Pressure : / mmHG Vent. Rate : 099 BPM Atrial Rate : 094 BPM P-R Int : 000 ms QRS Dur : 096 ms QT Int : 316 ms P-R-T Axes : 000 002 066 degrees QTc Int : 405 ms Atrial fibrillation Minimal voltage criteria for LVH, may be normal variant Abnormal ECG When compared with ECG of 17-JUN-2022 19:09, Atrial fibrillation has replaced Sinus rhythm Criteria for Inferior infarct are no longer Present Confirmed by Wilder Hitchcock ([id number]) on 07/20/2022 5:46:07 AM Referred By: REFERRED SELF Confirmed By:Wilder Hitchcock
--- NOTE | 2022-07-20 05:53 | Electrocardiogram Report ---
Test Reason : Blood Pressure : / mmHG Vent. Rate : 070 BPM Atrial Rate : 070 BPM P-R Int : 170 ms QRS Dur : 092 ms QT Int : 414 ms P-R-T Axes : - 022 degrees QTc Int : 447 ms Normal sinus rhythm Minimal voltage criteria for LVH, may be normal variant Inferior infarct , age undetermined Abnormal ECG When compared with ECG of 18-JUL-2022 17:06, Sinus rhythm has replaced Atrial fibrillation Inferior infarct is now Present Confirmed by Wilder Hitchcock ([id number]) on 07/20/2022 5:53:05 AM Referred By: REFERRED SELF Confirmed By:Wilder Hitchcock
--- NOTE | 2022-07-20 23:19 | Electrocardiogram Report ---
Test Reason : Blood Pressure : / mmHG Vent. Rate : 079 BPM Atrial Rate : 079 BPM P-R Int : 178 ms QRS Dur : 094 ms QT Int : 394 ms P-R-T Axes : 011 -04 020 degrees QTc Int : 451 ms Normal sinus rhythm Minimal voltage criteria for LVH, may be normal variant Inferior infarct (cited on or before 18-JUL-2022) Abnormal ECG When compared with ECG of 18-JUL-2022 18:28, No significant change was found Confirmed by Wilder Hitchcock ([id number]) on 07/20/2022 11:19:00 PM Referred By: REFERRED SELF Confirmed By:Wilder Hitchcock
== END 2022-07-19 14:29 | disposition home or self-care (01) ==
LOC: ED 16:25 → EDINP 20:45 → INTOOBSV 20:45 → EDINP 23:49 → 1E 07-19 02:53
DX: E86.0 Dehydration; I10 Essential (primary) hypertension; I48.0 Paroxysmal atrial fibrillation; Z79.899 Other long term (current) drug therapy; D64.9 Anemia, unspecified; Z79.82 Long term (current) use of aspirin; Z91.013 Allergy to seafood; I25.10 Atherosclerotic heart disease of native coronary artery without angina pectoris; I71.40 Abdominal aortic aneurysm, without rupture, unspecified; E78.5 Hyperlipidemia, unspecified; F17.210 Nicotine dependence, cigarettes, uncomplicated; R07.2 Precordial pain; C90.00 Multiple myeloma not having achieved remission; I73.9 Peripheral vascular disease, unspecified

== ENCOUNTER 2023-08-22 11:14 | Inpatient (IN) ==
[2023-08-22] MEDS ORDERED: SODIUM CHLORIDE 0.9% 1,000 ML IV SCH (11:53)
[2023-08-22 12:12] LABS: Basophils # (auto) 0.03 K/uL (0.00-0.20); Basophils % (auto) 0.4 %; Eosinophils # (auto) 0.18 K/uL (0.00-0.50); Eosinophils % (auto) 2.4 %; Hematocrit (blood only) 39.2 % (42.0-52.0); Hemoglobin 13.3 g/dl (14.0-18.0); Immature Granulocytes # (auto) 0.06 K/uL (0.01-0.20); Immature Granulocytes % (auto) 0.8 %; Lymphocytes # (auto) 0.65 K/uL (1.20-3.40); Lymphocytes % (auto) 8.6 %; Mean Corpuscular Hemoglobin 31.3 pg (25.0-34.0); Mean Corpuscular Hgb Conc 33.9 g/dL (32.0-36.0); Mean Corpuscular Volume 92.2 fL (80.0-100.0); Mean Platelet Volume 11.2 fL (9.4-12.4); Monocytes # (auto) 1.92 K/uL (0.11-0.59); Monocytes % (auto) 25.3 %; Neutrophils # (auto) 4.76 K/uL (1.40-6.50); Neutrophils % (auto) 62.5 %; Platelet Count 187 K/uL (130-400); RDW Coefficient of Variation 15.9 % (11.5-14.5); RDW Standard Deviation 53.7 fL (36.4-46.3); Red Blood Count 4.25 M/uL (4.70-6.10)
[2023-08-22 12:32] LABS: Albumin Globulin Ratio 1.4 (0.9-2); Albumin Level 4.1 gm/dl (3.4-5.0); BUN Creatinine Ratio 19.6 (10-20); Bilirubin,Total 0.7 mg/dl (0.2-1.0); Calcium 8.5 mg/dl (8.6-10.3); Creatinine Clr Calc Pharmacy 29.5 ml/min; Est GFR (African American) 34.8 ml/min; Potassium 3.6 mmol/L (3.5-5.1); Total Protein 7.1 gm/dl (6.0-8.3)
[2023-08-22 12:44] LABS: Influenza A virus by PCR Negative (Neg); Influenza B virus by PCR Negative (Neg); RSV by PCR Negative (Neg)
[2023-08-22 12:56] LABS: Base Excess VBG -10.4 mEq/L; HCO3 VBG 16 mmol/L; Oxygen Saturation VBG < 60.0 %; PCO2 VBG 35 mmHg (38-50); PO2 VBG 21 mmHg; pH VBG 7.26 (7.36-7.41)
[2023-08-22 12:57] LABS: SARS CoV2 RNA(COVID-19) Ceph POSITIVE (Negative)
[2023-08-22 13:17] LABS: Magnesium 1.7 mg/dl (1.7-2.4)
[2023-08-22 13:30] LABS: Troponin I High Sensitivity 69.9 pg/ml (0-20)
--- NOTE | 2023-08-22 13:30 | Emergency Department Note ---
History of Present Illness General Chief Complaint: Dehydration Stated Complaint: REF BY DR, KIDNEY FUNCTION LOW, DEHYDRATION Time Seen by Provider: 08/22/23 12:05 History of Present Illness Provider Complaint: + fever, + cough and + nasal congestion Onset (ago): 2 day(s) Duration: + progressively worsening Maximum Pain Intensity: 2 Able to tolerate fluids by mouth: Yes Associated symptoms: + fever, + myalgias, + cough, + shortness of breath and + diarrhea HPI Narrative: Patient reports he went to go see his PCP at [facility] who tested him for COVID and came back COVID-positive. He states he was told to come to the emergency department because his kidney function was elevated. Home Medications Medication Instructions Recorded Confirmed Type aspirin 81 mg tablet,delayed 81 mg PO QAM 09/29/19 08/04/22 History release atorvastatin 80 mg tablet 80 mg PO QPM 09/29/19 08/04/22 History nitroglycerin 0.4 mg sublingual 0.4 mg sublingual DIRECTED PRN 09/29/19 08/04/22 History tablet Chest Pain calcium citrate 250 mg 1 tab PO HS 10/05/20 08/04/22 History calcium-vitamin D3 5 mcg (200 unit) tablet magnesium oxide 250 mg PO BID 04/16/21 08/04/22 History acyclovir 400 mg tablet 400 mg PO AMHS 07/18/22 08/04/22 History ciprofloxacin HCl 0.3 % eye drops 1 - 2 drp ophthalmic (eye) UD 07/18/22 08/04/22 History dexamethasone 4 mg tablet 40 mg PO WK 07/18/22 08/04/22 History famotidine 20 mg tablet 20 mg PO BID 07/18/22 08/04/22 History lenalidomide 10 mg capsule 10 mg PO UD 07/18/22 08/04/22 History (Revlimid) mirtazapine 15 mg tablet 15 mg PO HS 07/18/22 08/04/22 History ondansetron HCl 8 mg tablet 8 mg PO Q8 PRN Nausea 07/18/22 08/04/22 History prochlorperazine maleate 10 mg 10 mg PO Q6 PRN Nausea 07/18/22 08/04/22 History tablet metoprolol tartrate 25 mg tablet 50 mg (2 x 25 mg) PO BID #120 tabs 07/19/22 08/04/22 Rx Allergies Allergy/AdvReac Type Severity Reaction Status Date / Time shellfish derived Allergy Intermediate HIVES Verified 07/28/22 15:16 Past Med/Surg History Medical History Bilateral pneumonia hospitalized for this 07/2020 [facility] History of COVID-19 10/05/19 > tested at [facility] History of kidney stones Arthritis Lung nodule, multiple per , refusing work up at present time History of myocardial infarction 2013 Hyperlipidemia COPD (chronic obstructive pulmonary disease) no inh Chronic steroid use Multiple myeloma reason for dexamethasone, revlimid & velcade History of pancreatitis GERD (gastroesophageal reflux disease) Coronary artery disease BMS (2014) follows with Dr. Geiger Hypertension Abdominal aortic aneurysm 5cm per 03/2020 CT- under surveillance by vascular Anemia Bladder cancer dx March 2020; hx TURBT 04/27/2020 [facility] Surgical History History of colonoscopy History of tooth extraction History of cystoscopy History of cardiac catheterization 2013 [facility]- [place] - 1 stent History of cholecystectomy Family History Other Heart disease Social History Smoking Status: Current every day smoker Tobacco Type: Cigarettes Second Hand Exposure: Yes; Do You Dip or Chew Tobacco: No; Hx Alcohol Use: No Hx Substance Use: Yes Substance Use Type Other:: marijuana once weekly Preferred Language: Ecuadorean Communication Ability: Effective Visual Impairment: No Limitations Bi Application Developer Required: No Beliefs That Will Affect Care: None marital status: Current Living Situation: Spouse Feels Safe at Home: Yes Assistive Devices: Cane Physical Exam 2 Vital Signs: Vital Signs - 24 hr 08/22/23 11:28 08/22/23 12:50 08/22/23 13:00 Temperature 37 C 37.0 C Temperature Source Temporal Artery Sc an Oral Pulse Rate 83 76 Pulse Rate [Apical ] 84 Respiratory Rate 24 20 Respiratory Effort / Characteristics Non-Labored Sponta neous Spontaneous Respiratory Depth Normal Respiratory Patter n Regular Blood Pressure 112/75 Blood Pressure [Ri ght Arm] 113/69 Blood Pressure Zainab n 87 Blood Pressure Zainab n [Right Arm] 83 Blood Pressure Pos ition Sitting Blood Pressure Pos ition [Right Arm] Sitting Pulse Oximetry 99 90 Oxygen Delivery Me thod Room Air Room Air Sepsis Recent Feve r Within 48 Hours No Sepsis New/Unexpla ined Change in Men corrie Status No Sepsis Action Take n by Nursing No Action Required Physical Exam: Physical Exam GENERAL: oriented to person, place, and time. appears well-developed and well- nourished. HENT: Exam performed. - Head: Normocephalic and atraumatic. EYES: Conjunctivae and EOM are normal. Right eye exhibits no discharge. Left eye exhibits no discharge. No scleral icterus. NECK: Normal range of motion. Neck supple. No JVD present. CV: Normal rate, irregular rhythm, normal heart sounds and intact distal pulses. There is no peripheral edema. Palpable radial pulses bue. PULM/CHEST: Rhonchi bilaterally. ABD: The abdomen is soft. There is no tenderness. NEURO: Motor and sensation grossly intact. SKIN: Skin is warm and dry. He is not diaphoretic. PSYCH: normal mood and affect. Behavior is normal. Judgment and thought content normal. Course Course 1205: The patient was evaluated in room C12. A complete history and physical exam was performed Cardiac monitoring: An order was placed for continuous cardiac monitoring. The monitor shows a rate of 80 with atrial fibrilation rhythm interpreted by me 1405: Patient's oxygen saturation dropped down to 87% on ambulation. Supplemental oxygen was applied via nasal cannula. Patient be treated with Decadron 6 mg IV push. Labs show a venous pH of 7.26 with a venous pCO2 of 35. Sodium of 130. BUN 42 creatinine 2.14. External medical records were reviewed and the patient's creatinine 1 week ago in the [facility] system on August 15 2023 was 1.4. Patient's troponin is elevated at 69.9. Patient not reporting any chest pain, elevated troponin is thought to be due to a combination of the patient's poor renal function given his dehydration as well as demand ischemia from the patient being in A-fib. Patient is COVID-positive. Chest x-ray shows a infiltrate. Could be a superimposed bacterial pneumonia, procalcitonin blood cultures added. Azithromycin Rocephin given to the patient. Patient will be admitted to the [facility] hospitalist team. Discussed case with Catina Valdez and Beth cody scanned they state to admit to Dr. Arzate. Administered Medications Discontinued Medications Sodium Chloride (Nss) 1,000 mls @ 999 mls/hr IV .[id number] [id number] Stop: 08/22/23 12:53 Last Infusion: 08/22/23 13:28 Dose: Infused Documented By: Admin: 08/22/23 11:54 Dose: 999 mls/hr Documented By: ASHLEY Medical Decision Making Medical Records Attestation: I reviewed the patient's medical records. External medical records were reviewed and the patient's creatinine 1 week ago in the [facility] on August 15 2023 was 1.4. Laboratory Data Attestation: I reviewed the patient's lab results. 08/22/23 11:50 08/22/23 11:50 Lab Results 08/22/23 08/22/23 08/22/23 Range/Units 11:50 12:43 12:48 WBC 7.60 (4.8-10.8) K/ul RBC 4.25 L (4.70-6.10) M/uL Hgb 13.3 L (14.0-18.0) g/dl Hct 39.2 L (42.0-52.0) % MCV 92.2 (80.0-100.0) fL MCH 31.3 (25.0-34.0) pg MCHC 33.9 (32.0-36.0) g/dL RDW Std Deviation 53.7 H (36.4-46.3) fL RDW Coeff of Andrew 15.9 H (11.5-14.5) % Plt Count 187 (130-400) K/uL MPV 11.2 (9.4-12.4) fL Immature Gran % (Auto) 0.8 % Neut % (Auto) 62.5 % Lymph % (Auto) 8.6 % [place] % (Auto) 25.3 % Eos % (Auto) 2.4 % Baso % (Auto) 0.4 % Neut # (Auto) 4.76 (1.40-6.50) K/uL Lymph # (Auto) 0.65 L (1.20-3.40) K/uL [place] # (Auto) 1.92 H (0.11-0.59) K/uL Eos # (Auto) 0.18 (0.00-0.50) K/uL Baso # (Auto) 0.03 (0.00-0.20) K/uL Immature Gran # (Auto) 0.06 (0.01-0.20) K/uL VBG pH 7.26 L (7.36-7.41) VBG pCO2 35 L (38-50) mmHg VBG pO2 21 mmHg VBG HCO3 16 mmol/L VBG O2 Saturation < 60.0 % VBG Base Excess -10.4 mEq/L Sodium 130 L (136-145) mmol/L Potassium 3.6 (3.5-5.1) mmol/L Chloride 101 (98-107) mmol/L Carbon Dioxide 16 L (21-32) mmol/L Anion Gap 13 H (3-11) BUN 42 H (6-23) mg/dl Creatinine 2.14 H (0.6-1.4) mg/dl Est Cr Clr Drug Dosing 29.5 ml/min Est GFR ( Amer) 34.8 ml/min Est GFR (Non-Af Amer) 30.0 ml/min BUN/Creatinine Ratio 19.6 (10-20) Glucose 121 H (70-99(Fasting)) mg/dl Lactate 1.8 (0.4-2.0) mmol/L Calcium 8.5 L (8.6-10.3) mg/dl Magnesium 1.7 (1.7-2.4) mg/dl Total Bilirubin 0.7 (0.2-1.0) mg/dl AST 16 (13-39) U/L ALT 14 (7-52) U/L Alkaline Phosphatase 73 (34-104) U/L Troponin I High Sens 69.9 H* (0-20) pg/ml Total Protein 7.1 (6.0-8.3) gm/dl Albumin 4.1 (3.4-5.0) gm/dl Globulin 3.0 (2.5-4.0) gm/dl Albumin/Globulin Ratio 1.4 (0.9-2) Lipase 28 (11-82) U/L SARS-CoV-2 (PCR) POSITIVE A* (Negative) Influenza Type A (PCR) Negative (Neg) Influenza Type B (PCR) Negative (Neg) RSV (RT-PCR) Negative (Neg) Imaging Data Attestation: I personally reviewed and interpreted this imaging study as follows: My Impression: Chest x-ray: Right lung infiltrate Radiologist's Impression: Chest X-Ray 08/22/23 11:31 XR chest 1V portable CLINICAL HISTORY: sob, + COVID COMPARISON STUDY: Chest CT April 25, 2020. Chest radiograph July 18, 2022. FINDINGS: There is no pneumothorax or pleural effusion. Cardiomegaly is unchanged. There is no evidence for pulmonary edema. Patchy right midlung opacity is present. Patient is mildly rotated. This likely accounts for right hilar prominence. IMPRESSION: Patchy right midlung opacity. This may reflect an infectious process. Radiographic follow-up to ensure resolution is recommended. ACT 112: Negative or not required by law. Electronically signed by: Chandrakant Hdz M.D. 08/22/2023 1:43 PM ECG Data Attestation: I personally reviewed and interpreted this ECG as follows: Rate (beats per minute): 83 Rhythm: atrial fibrillation Findings: no ST depression, no ST elevation or no prolonged QT MDM Narrative 1205: The patient was evaluated in room C12. A complete history and physical exam was performed Cardiac monitoring: An order was placed for continuous cardiac monitoring. The monitor shows a rate of 80 with atrial fibrilation rhythm interpreted by me 1405: Patient's oxygen saturation dropped down to 87% on ambulation. Supplemental oxygen was applied via nasal cannula. Patient be treated with Decadron 6 mg IV push. Labs show a venous pH of 7.26 with a venous pCO2 of 35. Sodium of 130. BUN 42 creatinine 2.14. External medical records were reviewed and the patient's creatinine 1 week ago in the [facility] system on August 15 2023 was 1.4. Patient's troponin is elevated at 69.9. Patient not reporting any chest pain, elevated troponin is thought to be due to a combination of the patient's poor renal function given his dehydration as well as demand ischemia from the patient being in A-fib. Patient is COVID-positive. Chest x-ray shows a infiltrate. Could be a superimposed bacterial pneumonia, procalcitonin blood cultures added. Azithromycin Rocephin given to the patient. Patient will be admitted to the [facility] hospitalist team. Discussed case with Catina Valdez and Beth cody scanned they state to admit to Dr. Arzate. Impression & Plan COVID-19, COPD (chronic obstructive pulmonary disease), Pneumonia, Hypoxia, Atrial fibrillation, Elevated troponin, BREANN (acute kidney injury) Critical Care Time Critical Care Time: Yes Total Critical Care Time: 50 I have personally spent greater than 50 minutes of critical care time in the direct management of this patient. This includes bedside care, interpretation of diagnostic studies, and testing, discussion with consultants, patient, and family members, and other required patient management activities. This 50 minutes is in excess of all separately billable procedures. Discharge Plan Visit Data Chief Complaint: Dehydration Stated Complaint: REF BY , KIDNEY FUNCTION LOW, DEHYDRATION ED Provider: Abner Perkins Discharge Problem: COVID-19, COPD (chronic obstructive pulmonary disease), Pneumonia, Hypoxia, Atrial fibrillation, Elevated troponin, BREANN (acute kidney injury) Patient Disposition: Being Evaluated by Hospitalist Forms Stand Alone Forms: My [facility] Prescriptions Prescriptions: No Action atorvastatin 80 mg tablet 80 mg PO QPM aspirin 81 mg tablet,delayed release (DR/EC) 81 mg PO QAM nitroglycerin 0.4 mg tablet, sublingual 0.4 mg sublingual DIRECTED PRN (Reason: Chest Pain) Rx Instructions: PLACE ONE TABLET UNDER THE TONGUE EVERY 5 MINUTES FOR UP TO 3 DOSES OVER 15 MINUTES IF NEEDED FOR CHEST PAIN calcium citrate-vitamin D3 250 mg-5 mcg (200 unit) Tablet 1 tab PO HS magnesium oxide 250 mg magnesium tablet 250 mg PO BID lenalidomide [Revlimid] 10 mg capsule 10 mg PO UD Rx Instructions: take 1 capsule once a day for 14 days on and 7 days off acyclovir 400 mg tablet 400 mg PO AMHS dexamethasone 4 mg tablet 40 mg PO WK Rx Instructions: pt doesnt remember day mirtazapine 15 mg tablet 15 mg PO HS famotidine 20 mg tablet 20 mg PO BID ondansetron HCl 8 mg tablet 8 mg PO Q8 PRN (Reason: Nausea) prochlorperazine maleate 10 mg tablet 10 mg PO Q6 PRN (Reason: Nausea) ciprofloxacin HCl 0.3 % Drops 1 - 2 drp OPHTHALMIC (EYE) UD Rx Instructions: put 1-2 drps in affected eye(s) every 2hr for 2 days, then every 4 hours for 5 days metoprolol tartrate 25 mg tablet 50 mg PO BID Qty: 120 0RF Rx Instructions: take 50 mg twice a day. Referrals Referrals: Chris Ruvalcaba MD [Physician] - Discharge Problem: Pneumonia Qualifiers: Pneumonia type: due to unspecified organism Laterality: right Lung location: u nspecified part of lung Qualified Code(s): J18.9 - Pneumonia, unspecified organism
[2023-08-22] MEDS ORDERED: dexAMETHasone**PF** 10 MG/ML VIAL IV ONE (13:40)
--- NOTE | 2023-08-22 13:44 | XRay Report ---
XR chest 1V portable CLINICAL HISTORY: sob, + COVID COMPARISON STUDY: Chest CT April 25, 2020. Chest radiograph July 18, 2022. FINDINGS: There is no pneumothorax or pleural effusion. Cardiomegaly is unchanged. There is no eviden ce for pulmonary edema. Patchy right midlung opacity is present. Patient is mildly rotated. This like ly accounts for right hilar prominence. IMPRESSION: Patchy right midlung opacity. This may reflect an infectious process. Radiographic follo w-up to ensure resolution is recommended. ACT 112: Negative or not required by law. Electronically signed by: Chandrakant Hdz M.D. 08/22/2023 1:43 PM
[2023-08-22] MEDS ORDERED: AZITHROMYCIN 250 MG TAB PO ONE (13:46)
[2023-08-22] MEDS ORDERED: cefTRIAXone SODIUM 2,000 MG/50 ML BAG IV STA (13:46)
--- NOTE | 2023-08-22 15:51 | History & Physical Report ---
Date of Service August 22, 2023 Assessment & Plan (1) Acute hypoxic respiratory failure: (2) COVID: (3) COPD exacerbation: (4) Hyponatremia: (5) Multiple myeloma: (6) GERD (gastroesophageal reflux disease): (7) Hypertension: (8) Abdominal aortic aneurysm: Plan Pt is a 73yoM with a PMHx significant for CAD s/p stent placement, AAA, PVD, paroxysmal atrial flutter, hypertension, hyperlipidemia, multiple myeloma with ongoing chemotherapy, bladder cancer s/p surgery, CKD (baseline creatinine 1.3- 1.5), chronic anemia (baseline hemoglobin of 10), ongoing tobacco abuse admitted with acute hypoxic respiratory failure in the setting of a covid infection. Acute hypoxic respiratory failure COVID infection COPD Exacerbation Pneumonia Pt states that he started having SOB 3 days ago with copious amounts of diarrhea Saw his pcp yesterday who did bloodwork and tested him for covid, started him on azithromycin and prednisone for a COPD exacerbation. Was advised to present to the ED for further evaluation Hypoxic to the 80s on RA with activity COVID + on testing, pt states he was vaccinated originally procal not elevated Chest XRAY with patchy R midlung opacity, chest CT pending. Pt with contrast allergy, d-dimer ordered and elevated. V/Q scan pending. Oxygen supplementation as needed, does not use oxygen at baseline. Pt received a dose of Decadron 6mg in the ED on admission. He is on decadron 20mg qweekly for Multiple Myeloma treatment and due for dose 08/23. Continue with Decadron 20mg dose tomorrow 08/23 for MM. Consider continuing IV Decadron 6mg daily the next day. Hold home prednisone Start remdesivir, monitor liver enzymes(AST, ALT) for the 5 days while on medication Continue Cefepime and azithromycin- pt received a dose of azithromycin 500mg in the ED, continue for 2 more doses Consider pulmonology consult BREANN Pt with significant diarrhea Cr elevated to 2.14 Baseline 1.3-1.5 NSS @80 Avoid nephrotoxic meds, IV contrast Elevated trop Pt with elevated trop at 69.9 Repeat trop pending, continue to trend if more elevated Echo pending Consider Cardiology eval Hyponatremia Likely due to dehydration IV fluids as noted above Monitor with AM labs Abdominal and thoracic anuerysms Pt with noted thoracic aneurysm >4cm on CT chest Chart review shows CT abd/pelvis from 2021 noted abdominal Multiple Myeloma Continue with Decadron 20mg weekly dose tomorrow 08/23 Continue Revlimid- pt states due for next cycle of 14 days on 08/24 Hx of bladder cancer S/p surgery and BCG Rx Stable HLD Continue home statin Atrial Fibrillation HTN Continue home metoprolol Pt not currently on anticoagulation GERD Continue home ppi Appetite and Mood Continue home remeron Tobacco use disorder Pt states that he quit smoking 2 days ago. Encourage cessation CODE STATUS: Full code DVT prophylaxis: Lovenox SQ Diet: HH, AM [id number] pending as pt on chronic steroids Dispo: Med/Surg with tele History of Present Illness Primary Care Provider: Savanah Geiger, Pt is a 73yoM with a PMHx significant for CAD s/p stent placement, AAA, PVD, paroxysmal atrial flutter, hypertension, hyperlipidemia, multiple myeloma with ongoing chemotherapy, bladder cancer s/p surgery, CKD (baseline creatinine 1.3- 1.5), chronic anemia (baseline hemoglobin of 10), ongoing tobacco abuse admitted with acute hypoxic respiratory failure in the setting of a covid infection. States that his symptoms of cough, SOB and diarrhea started about 3-4 days ago. Followed up with his pcp who tested him for covid and it came back positive. Also had blood work done which showed that he had some kidney injury and was advised to go to the ED. States he is a smoker but quit 2 days ago. Used to smoke a ppd, stopped for some time and now smokes a few cigarettes a day. Does not use oxygen at baseline. Feeling weak. States he has not been eating and drinking Notes that he was vaccinated against covid with the original shots. Allergies Allergy/AdvReac Type Severity Reaction Status Date / Time shellfish derived Allergy Intermediate HIVES Verified 08/22/23 14:26 Home Medications Medication Instructions Recorded Confirmed Type aspirin 81 mg tablet,delayed 81 mg PO QAM 09/29/19 08/22/23 History release atorvastatin 80 mg tablet 80 mg PO QPM 09/29/19 08/22/23 History nitroglycerin 0.4 mg sublingual 0.4 mg sublingual DIRECTED PRN 09/29/19 08/22/23 History tablet Chest Pain calcium citrate 250 mg 1 tab PO HS 10/05/20 08/22/23 History calcium-vitamin D3 5 mcg (200 unit) tablet acyclovir 400 mg tablet 400 mg PO AMHS 07/18/22 08/22/23 History dexamethasone 4 mg tablet 20 mg PO WK 07/18/22 08/22/23 History famotidine 20 mg tablet 20 mg PO BID 07/18/22 08/22/23 History lenalidomide 10 mg capsule 10 mg PO UD 07/18/22 08/22/23 History (Revlimid) mirtazapine 15 mg tablet 15 mg PO HS 07/18/22 08/22/23 History ondansetron HCl 8 mg tablet 8 mg PO Q8 PRN Nausea 07/18/22 08/22/23 History lactobacillus combination no.4 3 0 mmu cells PO DAILY 08/22/23 08/22/23 History billion cell capsule (Probiotic) loperamide 2 mg capsule 2 mg PO DIRECTED PRN Diarrhea 08/22/23 08/22/23 History metoprolol tartrate 50 mg tablet 50 mg PO BID 08/22/23 08/22/23 History pantoprazole 20 mg tablet,delayed 20 mg PO QAM 08/22/23 08/22/23 History release prednisone 20 mg tablet 40 mg PO .Q AM 5DAYS 08/22/23 08/22/23 History tramadol 50 mg tablet 50 mg PO Q6 PRN Pain 08/22/23 08/22/23 History Past Med/Surg History Medical History Bilateral pneumonia hospitalized for this 07/2020 [facility] History of COVID-19 10/05/19 > tested at [facility] History of kidney stones Arthritis Lung nodule, multiple per , refusing work up at present time History of myocardial infarction 2013 Hyperlipidemia COPD (chronic obstructive pulmonary disease) no inh Chronic steroid use Multiple myeloma reason for dexamethasone, revlimid & velcade History of pancreatitis GERD (gastroesophageal reflux disease) Coronary artery disease BMS (2014) follows with Dr. Geiger Hypertension Abdominal aortic aneurysm 5cm per 03/2020 CT- under surveillance by vascular Anemia Bladder cancer dx March 2020; hx TURBT 04/27/2020 [facility] Surgical History History of colonoscopy History of tooth extraction History of cystoscopy History of cardiac catheterization 2013 [facility]- [place] - 1 stent History of cholecystectomy Family History Other Heart disease Social History Smoking Status: Former smoker Tobacco Type: Cigarettes Second Hand Exposure: Yes; Do You Dip or Chew Tobacco: No; Hx Alcohol Use: No Hx Substance Use: No Preferred Language: Croatian Communication Ability: Effective Visual Impairment: No Limitations [employer] Required: No Beliefs That Will Affect Care: None marital status: Current Living Situation: Spouse Feels Safe at Home: Yes Assistive Devices: Cane Physical Exam Physical Exam: General: Alert, oriented. No acute distress, NC in nares Psych: Appropriate mood and affect Neuro: Difficulty with movements in the bed HEENT: NC/AT Chest: Nontender to palpation. CV: Irregular Resp: Breath sounds decreased bilaterally, no increased effort of breathing. Abdomen: Soft, nontender, nondistended. Extremities: No edema in lower extremities bilaterally. Results & Data Results & Data Vital Signs (Past 12 Hours) Vital Signs Temp Pulse Pulse Pulse Resp Resp BP 08/22/23 13:48 84 28 H 08/22/23 13:00 37.0 C 84 20 08/22/23 12:50 76 08/22/23 11:28 37 C 83 24 112/75 BP Pulse Ox Pulse Ox O2 Del Method O2 Flow Rate 08/22/23 13:48 87 L Room Air 91 08/22/23 13:00 113/69 90 Room Air 08/22/23 12:50 08/22/23 11:28 99 Room Air Diagnostic Findings Chest X-Ray 08/22/23 11:31 XR chest 1V portable CLINICAL HISTORY: sob, + COVID COMPARISON STUDY: Chest CT April 25, 2020. Chest radiograph July 18, 2022. FINDINGS: There is no pneumothorax or pleural effusion. Cardiomegaly is unchanged. There is no evidence for pulmonary edema. Patchy right midlung opacity is present. Patient is mildly rotated. This likely accounts for right hilar prominence. IMPRESSION: Patchy right midlung opacity. This may reflect an infectious process. Radiographic follow-up to ensure resolution is recommended. ACT 112: Negative or not required by law. Electronically signed by: Chandrakant Hdz M.D. 08/22/2023 1:[address] 08/22/23 17:11 CT chest diagnostic wo con CT DOSE: 420.11 mGy.cm CLINICAL HISTORY: 73 years-old Male with acute hypoxiz resp failure, dyspnea. Acute respiratory failure TECHNIQUE: Multiaxial CT images of the chest were performed without contrast. A dose lowering technique was utilized adhering to the principles of ALARA. COMPARISON: Chest CT of same day, CT chest 04/25/2020 FINDINGS: Unremarkable thyroid. No lymphadenopathy. Mild cardiomegaly with extensive coronary artery calcifications. Mild dilation of the ascending thoracic aorta at the level of the main pulmonary artery, 4.3 cm. This is uncha nged from prior. Some chronic pleural thickening. Severe pulmonary emphysema. Subpleural fibrotic changes are noted along with patchy subpleural groundglass densities in the mid to lower lung zones, right greater than left. Stable solid nodules in the left lower lobe measure up to 5 mm. Central airways are patent. Cholecystectomy. Bilateral perinephric stranding. There are a few hepatic cysts noted. No acute fracture. Degenerative changes of the shoulders and spine with chronic appearing thoracic compression deformities. IMPRESSION: 1. Severe emphysema with mid to lower lung zone predominate patchy peripheral groundglass densities which are likely infectious or inflammatory such as viral pneumonia. 2. Stable pleural-parenchymal scarring with fibrotic changes and stable low suspicion solid pulmonary nodules. 3. No lymphadenopathy. 4. Unchanged fusiform dilation of the ascending thoracic aorta, 4.3 cm. ACT 112: Negative or not required by law. Electronically signed by: Quirino Soto M.D. 08/22/2023 7:00 PM (5) Multiple myeloma Multiple myeloma remission status: unspecified Qualified Code(s): C90.00 - Multiple myeloma not having achieved remission
--- OUTSIDE RECORDS SUMMARY | 2023-08-22 17:22 | External Medical Summary | Summary of Care ---
Author Name Unknown Organization [facility] Address [address] [place] [address] Phone [phone] Care Team Providers Care Dust Collector Attendant Name Role Phone Savanah Geiger Oswaldo JIMÉNEZ Primary Care Provider [phone] Reason for Visit * Reason Comments Acute COVID symptoms Encounter Details Date Type Department Care Team (Latest Contact Info) Description 08/21/2023 2:40 PM EST Office Visit [facility] [address] [place] [phone] May, Ashok Paredes MD [address] [place] [address] Risk and functional assessment*; Viral gastroenteritis; COPD exacerbation (HCC); COPD, group B, by GOLD 2017 classification (HCC); HTN, goal below 130/80 Allergies Active Allergy Reactions Criticality Noted Date Comments Calcium Carb-Cholecalciferol 016 documented as of this encounter (statuses as of 08/21/2023) Medications Medication Sig Dispensed Refills Start Date End Date Status ASPIRIN ADULT LOW DOSE 81 MG TBECIndications:Dysli pidemia, goal LDL below 100 TAKE 1 TABLET BY MOUTH EVERY DAY IN THE MORNING 90 Tab 3 07/04/2018 Active Clobetasol Propionate 0.05 % External Cream (Temovate)Indications :Atopic dermatitis Apply topically to affected area 2 times a day. To affected area for up to two weeks. 60 g 1 10/15/2021 Active Additional Information Patient taking differently:TopicalPRN, To affected area for up to two weeks., Reported on 12/16/2022 Ondansetron HCl 8 MG Oral Tablet (Zofran)Indications:M ultiple myeloma (HCC) Take by mouth 1 Tablet every 8 hours as needed for Nausea. 30 Tablet 2 02/24/2022 Active Prochlorperazine Maleate 10 MG Oral Tablet (Compazine)Indication s:Multiple myeloma (HCC) Take by mouth 1 Tablet every 6 hours as needed for Nausea. 30 Tablet 2 02/24/2022 Active Additional Information Patient not taking.Reported on 07/10/2023 Metoprolol Tartrate 50 MG Oral Tablet (Lopressor) Take 1 Tablet (50 mg) by mouth in the morning and 1 Tablet (50 mg) before bedtime. 180 Tablet 5 08/15/2022 Active [facility] Calcium Citrate+D3 Petites 200-6.25 MG-MCG Oral Tablet (Calcium Citrate-Vitamin D)Indications:Multipl e myeloma not having achieved remission (HCC),Hypocalcemia Take 1 Tablet by mouth in the morning. 90 Tablet 1 08/15/2022 Active Probiotic Acidophilus Oral Capsule Take by mouth daily. 0 Active Dexamethasone 4 MG Oral Tablet (Decadron)Indications :Multiple myeloma (HCC) Take 40mg (10 tablets) once a week 40 Tablet 5 01/09/2023 Active Nitroglycerin 0.4 MG Sublingual Tablet Sublingual (Nitrostat)Indication s:Atherosclerosis of [place] coronary artery of [place] heart without angina pectoris One tablet under tongue if needed for chest pain. May repeat 3 times. If chest pain continues, call [phone] 75 Tablet 3 03/20/2023 Active Acyclovir 400 MG Oral Tablet (Zovirax)Indications: Multiple myeloma not having achieved remission (HCC) TAKE 1 TABLET BY MOUTH EVERY DAY IN THE MORNING AND BEFORE BEDTIME 180 Tablet 3 03/27/2023 Active Mirtazapine 15 MG Oral Tablet (Remeron)Indications: Poor appetite TAKE 1 TAB BY MOUTH AT BEDTIME. TO HELP WITH APPETITE, AND MOOD. 90 Tablet 1 05/01/2023 Active Famotidine 20 MG Oral Tablet (Pepcid)Indications:G astroesophageal reflux disease without esophagitis TAKE 1 TABLET BY MOUTH TWICE A DAY 180 Tablet 3 05/03/2023 Active traMADol HCl 50 MG Oral Tablet (Ultram)Indications:M ultiple myeloma, remission status unspecified (HCC) Take 1 Tablet by mouth every 6 hours as needed for Pain, Moderate. 30 Tablet 0 07/24/2023 Active Pantoprazole Sodium 20 MG Oral Tablet Delayed Release (Protonix) Take 1 Tablet by mouth in the morning. 30 minutes before the first meal of the day. Do not crush, split or chew the tablet. 30 Tablet 5 07/31/2023 Active Lenalidomide 10 MG Oral Capsule (Revlimid)Indications :Multiple myeloma not having achieved remission (HCC) TAKE 1 CAPSULE BY MOUTH 1 TIME A DAY FOR 14 DAYS ON THEN 7 DAYS OFF 14 Capsule 0 08/10/2023 Active Atorvastatin Calcium 80 MG Oral Tablet (Lipitor)Indications: Dyslipidemia, goal LDL below 100 Take 1 Tablet by mouth in the morning. 90 Tablet 3 08/19/2023 Active Loperamide HCl 2 MG Oral Tablet (Imodium A-D)Indications:Viral gastroenteritis Take 2 Tablets by mouth once for 1 dose. Then one tablet after each loose BM, no more than 4 tablets per day for up to two days 18 Tablet 0 08/21/2023 3 Active predniSONE 20 MG Oral Tablet (Deltasone)Indication s:COPD exacerbation (HCC) Take 2 Tablets by mouth in the morning for 5 days. 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 Dyslipidemia 03/29/2022 Abdominal aortic aneurysm without rupture 2021 Chronic kidney disease, stage 3a 07/05/2021 Overview: Per CKD protocol Dilated aortic root 10/21/2020 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 COPD, group B, by GOLD 2017 classification 08/03 Overview: Per COPD GOLD Classification Multiple myeloma 07/07/2020 Abdominal aortic aneurysm (AAA) without rupture 05/11/2020 Aneurysm of common iliac artery 05/11/2020 Aneurysm of internal iliac artery 05/11/2020 Bladder cancer 04/24/2020 Coronary artery disease invo lving [place] heart without angina pectoris 05/22/2019 Old myocardial infarct 12/06/2018 S/p bare metal coronary artery stent 01/12/2015 Tobacco use disorder 04/16/2012 HTN, goal below 130/80 2012 GERD (gastroesophageal reflux disease) 2 documented as of this encounter (statuses as of 08/21/2023) Resolved Problems Problem Noted Date Diagnosed Date Resolved Date Coronary artery disease of n ative artery of [place] heart with stable angina pectoris 08/21/2023 08/21/2023 Dehydration 02/01/2021 03/29/2022 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 Atherosclerosis of coronary artery without angina pectoris 09/14/2018 03/29/2022 ST elevation myocardial infarction (STEMI) 03/20/2017 12/06/2018 Lung nodule 10/14/2015 03/29/2022 ST elevation myocardial infa rction (STEMI) involving other coronary artery 05/19/2015 03/20/20 ST elevation PR (STEMI) 01/12/201508/26 Myocardial infarction 02/03/20142017 COPD, moderate 08/27/2013 08/06/2020 Overview: Per COPD GOLD Classification Noncompliance 03/13/2013 03/21/2017 Anemia 05/03/2012 03/29/2022 COPD, severity to be determined 04/16/2012 08/27/2013 Dyslipidemia, goal LDL below 70 04/16/2012 03/29/2022 documented as of this encounter (statuses as of 08/21/2023) Immunizations Name Administration Dates Next Due COVID-19 mRNA, LNP-s, No Pre serve, 2-Dose Series ([employer]) 08/28/2021,02/18/2021,01/28/2021 Pneumococcal Conjugate Vacc, 13 Valent (Prevnar) 07/09/2020 Pneumococcal Polysaccharide PPV23 (Pneumovax) 07/25/2022 Season Influenza, Quad, PF, Adjuvanted, 65+ Yrs, IM (FLUAD) 07/09/2020 Seasonal Influenza, Quadriva lent Hd (Fluzone Hd) 07/10/2023,06/23/2022,07/12/2021 Seasonal Influenza, Split, I IV3, With Preserve, Inj 07/16/2013,07/10/2012 documented as of this encounter Social History Tobacco Use Types Packs/Day Years Used Date Smoking Tobacco: Some Days Cigarettes 1 40 Last attempted to quit: 04/16/2020 Passive Smoke Exposure: Current Smokeless Tobacco: Never Tobacco Cessation:Ready to Q uit: Not Asked; Counseling Given: Not Answered Alcohol Use Standard Drinks/Week Comments No 0 (1 standard drink = 0.6 oz pure alcohol) chronic alcoholic, sober for years now PHQ-2 Answer Date Recorded PHQ-2 Score 0 07/30/2020 Hunger Vital Sign Answer Date Recorded Within the past 12 months, y ou worried that your food would run out before you got the money to buy more. Never true 09/23/20 Within the past 12 months, t he food you bought just didn't last and you didn't have money to get more. Never true 09/23/2022 Sex and Gender Information Value Date Recorded Sex Assigned at Male 07/18/2022 2:25 PM EDT Gender Identity Male 07/18/2022 2:25 PM EDT Sexual Orientation Not on file Job Start Date Occupation Industry Not on file Not on file Not on file documented as of this encounter Last Filed Vital Signs Vital Sign Reading Time Taken Comments Blood Pressure 122/74 08/21/2023 2:44 PM EST Pulse 76 08/21/2023 2:44 PM EST Temperature 36.9 C (98.4 F) 08/21/2023 2:44 PM ES T Respiratory Rate 20 08/21/2023 2:44 PM EST Oxygen Saturation 91% 08/21/2023 2:44 PM EST Inhaled Oxygen Concentration - - Weight 70.5 kg (155 lb 6.4 oz) 08/21/2023 2:44 P M EST Height 172.7 cm (5' 8") 08/21/2023 2:44 PM EST Body Mass Index 23.63 08/21/2023 2:44 PM EST documented in this encounter Patient Instructions * Patient Instructions* Kendra Tijerina LPN - 08/21/2023 2:44 PM EST Patient Instructions - Fall Prevention (This education is for all patients over 65 regardless of symptoms) Remember to take your current medications as prescribed. In order to prevent falls, you are encouraged to: Exercise Utilize assistive/adaptive devices Avoid multifocal lenses when walking Avoid hazards in home Maintain a regular toileting schedule Any questions please contact our office. Preventing Falls in the Home (This education is for all patients over 65 regardless of symptoms) As you get older, falls are more likely. Thats because your reaction time slows. Your muscles and joints may also get stiffer, making them less flexible. Illness, medications, and vision changes can also affect your balance. A fall could leave you unable to live on your own. To make your home safer, follow these tips: Floors Put nonskid pads under area rugs Remove throw rugs Replace worn floor coverings Tack carpets firmly to each step on carpeted stairs. Put nonskid strips on the edges of uncarpeted stairs Keep floors and stairs free of clutter and cords Arrange furniture so there are clear pathways Clean up any spills right away Bathrooms Install grab bars in the tub or shower Apply nonskid strips or put a nonskid rubber mat in the tub or shower Sit on a bath chair to bathe Use bathmats with nonskid backing Lighting Keep a flashlight in each room Put a nightlight along the pathway between the bedroom and the bathroom [employer] Patient Education Copyright 2008 - 2010 [employer] except where otherwise noted Preventing Falls: Exercises to Improve Balance, Flexibility, Strength, and Staying Power (This education is for all patients over 65 regardless of symptoms) Certain types of exercises may help make you less likely to fall. Try the ones below. Or do other exercises that your healthcare provider suggests. Depending on your health, you may need to start slowly. Dont let that stop you. Even small amounts of exercise can help you. Be sure to talk to yourhealthcare provider before starting any exercise program. Improve Balance Many types of exercise can help improve balance. Denys chi and yoga are good examples. Heres another one to try. You can do it anytime and almost anywhere. Stand next to a counter or solid support. Push yourself up onto your tiptoes. Hold for 5 seconds. If you start to lose your balance, hold on to the counter. Rest and repeat 5 times. Work up to holding for 20 to 30 seconds, if you can. Increase Flexibility Being more flexible makes it easier for you to move around safely. Try exercises like the seated hamstring stretch. Sit in a chair and put one foot on a stool. Straighten your leg and reach with both hands down either side of your leg. Reach as far down your leg as you can. Hold for about 20 seconds. Go back to the starting position. Then repeat 5 times. Switch legs. Build Strength Resistance exercises help build strength. You can do them without equipment. Or you can use weights, elastic bands, or special machines. One such exercise is called the biceps curl. You can hold a 1 pound weight or even a can of soup. Do this exercise at least 3 times a week. Strive for everyday. Sit up straight in a chair. Keep your elbow close to your body and your wrist straight. Bend your arm, moving your hand up to your shoulder. Then slowly lower your arm. Repeat 5 times. Switch to the other arm. Build Your Staying Power Aerobic exercises make your heart and lungs stronger so you can keep moving longer. Walking and swimming are two of the best types of exercises you can do. Using a stationary bike is great, too. Find an aerobic exercise that you enjoy. Start slowly and build up. Even 5 minutes is helpful. Aimfor a goal of 30 minutes, at least 3 times a week. You dont have to do 30 minutes in one session. Break it up and walk a little throughout the day. More Helpful Tips Start easy. Slowly work up to doing more. Talk with your healthcare provider about the best exercises for you. Call senior centers or health clubs about exercise programs. If needed, have a family member watch you walk every so often to check your stability. Exercise with a friend. Choose an activity you both enjoy. Try exercises that you can do anytime, anywhere. Here are two examples. Have someone with you when you first try these: Practice walking by placing one foot right in front of the other. Stand up and sit down 10 times. Repeat this throughout the day. [employer] Patient Education Copyright 2008 - 2010 [employer] except where otherwise noted. Preventing Falls: Moving Safely Using a Cane or Walker (This education is for all patients over 65 regardless of symptoms) Keep the cane away from your feet so you dont trip. A walking aid, such as a cane or walker, can help you stay more independent and avoid falls. Remember to keep your walking aid within easy reach when youre in a chair or in bed. And learn how to use it safely so you dont injure yourself. Using a Cane If you have a stronger side, hold the cane on that side. Get your balance. Move the cane and your weaker leg forward. Support your weight on both the cane and your weaker side. Step with your stronger leg. Start again from step 1. If youre using a folding walker, be sure you know how to lock it open. Check that its locked open before each use. Using a Walker Roll the walker (or lift it, if youre using one without wheels) forward about 12 inches. Step forward with your weaker leg first. Use the walker to help keep your balance. Bring your other foot forward to the center of the walker. Start again from step 1. Helpful Tips Check with your healthcare provider about the right walking aid to use. Ask about a walker with a seat attached. Check the tips of your cane or walker to make sure they have nonskid covers. Move slowly from room to room. Dont ko. Sit down to get dressed. Use a esme pack or backpack to keep your hands free. Get help for jobs that mean climbing, even on a stepstool. [employer] Patient Education Copyright 2008 - 2010 [employer] except where otherwise noted. Treating Urinary Incontinence in Men (This education is for all patients over 65 regardless of symptoms) You can't always control the release of urine. You may leak urine. Or you may not be able to hold your urine until you can get to a bathroom. This is called urinary incontinence. The problem can be managed. Talk to your doctor about your treatment options. Taking Medications Prescription medications may help you. They may: Help the sphincter to work better. (This is the muscle that closes to keep urine from leaking out of the bladder.) Help stop the bladder from tammy too often to push urine out. Help the bladder muscles contract with more force. Help relax the sphincter muscle and allow urine to flow more freely. Making Changes to Your Routine Certain changes in your daily routine may help. These include: Avoiding caffeine and alcohol. Using timed voiding. This is following a schedule for drinking fluids and urinating. Doing Kegel exercises daily. These exercises involve tightening the muscles in your sphincter and around your bladder to help strengthen them. Your doctor can explain how to do them. Using a Catheter A catheter is a narrow tube that is inserted through the urethra into the bladder. It drains urine.A condom catheter covers the penis. It channels urine into a collection bag. It is worn most of thetime. Intermittent catheterization means inserting a catheter to drain the bladder, then removing it. This is done on a regular schedule. Having Surgery If other options don't work, surgery may be recommended. If surgery is an option, your healthcare provider can discuss it with you and explain its risks and benefits. Healing After Prostate Surgery Surgery on the prostate gland can cause incontinence. Most often, the incontinence is only for a short time. It clears up when healing is complete. Very rarely, prostate surgery can result in permanent incontinence. documented in this encounter Progress Notes * Ashok Hurtado MD - 08/21/2023 2:48 PM EST Images from the original note were not included. Assessment and Plan Patient seems to have a viral illness that has resulted in viral gastroenteritis and a COPD exacerbation. I am concerned that this may be COVID-19 given severity of patient's symptoms. He did receivea flu shot this year so it seems unlikely that this would be causing such severe symptoms. It is noted that he is immunocompromised. EKG in office today is reassuring. No evidence of ACS. Lab work was collected as below. Recommend he start loperamide to treat viral gastroenteritis and prednisone and azithromycin to treat COPD exacerbation. If COVID positive would certainly benefit from Paxlovid. If worsening shortness a breath or chest pain recommend ED evaluation. 1. Viral gastroenteritis - COMPREHENSIVE METABOLIC PANEL; Future - CBC WITH WBC DIFFERENTIAL; Future - MAGNESIUM; Future - INFLUENZA A/B RSV SARS-COV2,PCR; Future - Loperamide HCl 2 MG Oral Tablet (Imodium A-D); Take 2 Tablets by mouth once for 1 dose. Then one tablet after each loose BM, no more than 4 tablets per day for up to two days Dispense: 18 Tablet; Refill: 0 - INFLUENZA A/B RSV SARS-COV2,PCR 2. COPD exacerbation (HCC) - INFLUENZA A/B RSV SARS-COV2,PCR; Future - predniSONE 20 MG Oral Tablet (Deltasone); Take 2 Tablets by mouth in the morning for 5 days. Dispense: 10 Tablet; Refill: 0 - Azithromycin 250 MG Oral Tablet (Zithromax); Take 2 tabs by mouth on the first day, then 1 tab daily on days two through five Dispense: 6 Tablet; Refill: 0 - EKG; Future - EKG - INFLUENZA A/B RSV SARS-COV2,PCR 3. COPD, group B, by GOLD 2017 classification (HCC) 4. HTN, goal below 130/80 5. Risk and functional assessment Wrap-Up Follow up as needed. History of Present Illness The patient is a 73-year-old male with past medical history of COPD group B, dyslipidemia, AAA, hypertension, history of PR, CKD stage IIIA, GERD who presents for illness. Patient presents with 4 days of illness. Most notable symptom is his significant watery diarrhea. He states he is filled a 55 gallon drum . This was happening once an hour for the 1st 48 hours then has slowed slightly to every other hour for the last 48 hours. He denies fevers. He does note significant fatigue. He was mildly short of breath. He also notes some cough and chest pain. Vital signs in the office today are notable for oxygen saturation of 91% consistent with COPD. His pulse is 76. Blood pressure is 122/74. An EKG was obtained. This shows sinus rhythm with a few PACs. This is unchanged from prior EKGs. On exam is his lungs are coarse with scattered wheezes. He is having very mild increased work of breathing. Physical Exam Vitals: 08/21/23 1444 Temp: 36.9 C (98.4 F) Pulse: 76 Resp: 20 SpO2: 91% BP: 122/74 BMI: 23.63 Physical Exam Physical Exam Vitals reviewed. Constitutional: Comments: Appears fatigued. Very mildly increased work of breathing. Cardiovascular: Rate and Rhythm: Normal rate and regular rhythm. Heart sounds: No murmur heard. Pulmonary: Comments: Mildly increased respiratory effort. There is wheezes on expiration in all 4 quadrants. Diminished breath sounds in all 4 quadrants. Musculoskeletal: Cervical back: Neck supple. Lymphadenopathy: Cervical: No cervical adenopathy. Neurological: General: No focal deficit present. Mental Status: He is alert. Time: I spent a total of 40-54 minutes (exact time 42 mins) on the date of service in preparation, delivery, and documentation of the care provided to the patient excluding any time spent in the performance of separately billed services. documented in this encounter Nursing Notes * Kendra Tijerina LPN - 08/21/2023 2:52 PM EST The patient has been properly identified by confirmation of name and date of . Chief Complaint Patient presents with Acute COVID symptoms Poor appetite, weakness, fatigue, painful to walk, chest pains, "fluid drive", congestion, sore throat, vomiting, diarrhea, Denies headaches, documented in this encounter Plan of Treatment Upcoming Encounters Date Type Department Care Team (Late st Contact Info) Description 08/23/2023 3:30 PM EST Office Visit Cardiology, [facility] [address] [facility] [place] [address] Brian Hager MD [address] [facility] [place] [address] 08/25/2023 6:00 PM EST Scheduled Telephone Pharmacy Hematology Oncology [facility] [address] [place] [address] [facility] Hem/Onc Tech [address] [place] [address] 08/29/2023 11:00 AM EST Laboratory Laboratory, [place] [address] [place] [phone] [place] [address] [place] [address] 08/30/2023 9:00 AM EST Pharmacy Pharmacy [facility] [address] [place] [address] [facility] Hem/Onc [facility] [place] [address] 08/30/2023 11:30 AM EST Hem/Onc Treatment Hematology/Oncology Treatment, [place] [address] [place] [address] Tresa, Chair 7 Hem Onc [address] [place] [address] 09/07/2023 12:30 PM EST Hem/Onc Treatment Hematology Oncology [facility], [place] [address] [place] [address] G, Infusion Chair [address] [place] [address] 09/07/2023 2:30 PM EST Appointment Radiology, [address] [phone] 09/07/2023 2:30 PM EST Appointment Radiology, [address] [phone] 09/07/2023 4:00 PM EST Office Visit Vascular [facility], [address] [address] Robin Burleson MD [facility] [place] [address] 09/12/2023 10:30 AM EST Laboratory Laboratory, [address] [phone] [place] [address] [place] [address] 09/13/2023 10:15 AM EST Hem/Onc Treatment Hematology/Oncology Treatment, [place] [address] [place] [address] Tresa, Chair 3 Hem Onc Sc[address] [facility], [place] [address] 09/26/2023 10:30 AM EST Laboratory Laboratory, [place] [address] [place] [facility] [phone] [facility] [address] [place] [facility] [place] [address] 09/27/2023 10:00 AM EST Office Visit Hematology/Oncology [facility] [place] [address] [place] [address] Luann De La Cruz MD [address] [place] [address] 09/27/2023 10:30 AM EST Hem/Onc Treatment Hematology/Oncology Treatment, [place] [address] [place] [address] Tresa, Chair 11 Hem Onc [facility] [address] [place] [address] 10/20/2023 10:30 AM EST Office Visit Cardiology, [facility] [address] [place] [address] Leda Myers PA-C [address] [place] [address] 10/30/2023 10:50 AM EST Office Visit Ophthalmology, [facility] [address] [place] [address] Kana Frost, DO [address] [place] [address] 01/12/2024 10:10 AM EDT Office Visit [facility], [place] [address] [facility], [place] [phone] Savanah Geiger, DO [address] [place] [address] Pending Results Name Type Priority Associated Diagnoses Date /Time MAGNESIUM Lab Routine Viral gastroenteritis 08/21/2023 3:33 PM EST INFLUENZA A/B RSV SARS-COV2,PCR Lab Routine Viral gastroenteritis COPD exacerbation (HCC) 08/21/2023 3:55 PM EST Scheduled Orders Name Type Priority Associated Diagnoses Orde r Schedule MAGNESIUM Lab Routine Viral gastroenteritis Expected: 08/21/2023 (Approximate), Expires: 08/20/2024 INFLUENZA A/B RSV SARS-COV2,PCR Lab Routine Viral gastroenteritis COPD exacerbation (HCC) Expected: 08/21/2023 (Approximate), Expires: 08/20/2024 EKG EKG Routine COPD exacerbation (HCC) Expected: 08/21/2023 (Approximate), Expires: 09/20/2024 Scheduled Procedures Name Priority Associated Diagnoses Date/Ti me COLONOSCOPY FLEXIBLE PROXIMAL DIAGNOSTIC Recall History of colon polyps Health Maintenance Due Date Last Done Comments Albumin/Creatinine Ratio 02/13/1970 Alpha-1 Antitrypsin 02/13/1970 Hepatitis C Screening 02/13/1970 DTaP,Tdap,and Td Vaccines (1 - Tdap) 02/13/1971 Zoster Vaccines (1 of 2) 02/13/1971 DISCUSS TOBACCO CESSATION (REFER TO SMARTSET #3291) 07/12/2018 07/12/2017 (Course Completed) COLONOSCOPY-EVERY 3 YRS AGES 18-100 05/23/2020 05/23/2017 Depression Screening 07/30/2021 07/30/2020, 07/12/2017 (Declined) COVID-19 Vaccine ( season) 2023 08/28/2021, 02/18/2021, 01/28/2021 GFR 02/13/2024 08/15/2023, 06/26, 07/04/2023, Additional history exists CKD PHOS USE SMARTSET 03205 2024 02/13/2023, 0 02/11/2021 CKD HGB USE SMARTSET 84039 08/15/202408/15, 08/15/2023, 07/18/2023, Additional history exists O2 ASSESSMENT COMPLETED IN PAST YEAR FOR COPD 08/16/2024 08/16/2023 LUNG CANCER SCREENING - USE SMARTSET 12188 Completed 03/14/2022, 06/03/2020, 05/27/2020, Additional history exists Pneumococcal Vaccine: 65+ Years Completed 07/25/2022, 07/09/2020 Influenza Vaccine (FLU shot) Completed , 06/23/2022, 07/12/2021, Additional history exists GARDASIL-HPV IMMUNIZATION SERIES Aged Out No longer eligible based on patient's age to complete this topic Hepatitis B Aged Out No longer eligi ble based on patient's age to complete this topic MENINGOCOCCAL (MENACTRA/MENVEO) Aged Out No longer eligible based on patient's age to complete this topic documented as of this encounter Medical Devices Not on filedocumented as of this encounter Visit Diagnoses Diagnosis Risk and functional assessment- Primary Screening for unspecified condition Viral gastroenteritis Intestinal infection due to other organism, not elsewhere classified COPD exacerbation (HCC) Obstructive chronic bronchitis with exacerbation COPD, group B, by GOLD 2017 classification (HCC) HTN, goal below 130/80 Unspecified essential hypertension documented in this encounter Care Teams Dust Collector Attendant Relationship Specialty Start Date End Date Savanah Geiger DO [address] [place] [address] PCP - General Family Medicine 04/11/12 documented as of this encounter
--- OUTSIDE RECORDS SUMMARY | 2023-08-22 17:23 | External Medical Summary ---
Author Name Unknown Address Unknown Organization K01:LABORATORY [facility] [place] - [address] [facility] [place] [address] Laboratory Report Ordering Provider Test Date Status MARY ANNE LAGUNA 08/21/2023 15:33:13 Final Observation Date Value Abnormality Reference (Units ) Status SYNC LEUKOCYTES IN BLOOD BY AUTOMATED COUNT 08/21/2023 15:33:13 10.46 4.00-10.80 (K/uL) Final Segs 08/21/2023 15:33:13 74.6 40.0-75.0 (%) Final Lymphs % 08/21/2023 15:33:13 4.8 Below low normal 18.0-42.0 (%) Final Monos 08/21/2023 15:33:13 19.3 Above high normal 1.0-11.0 (%) Final Eosinophils 08/21/2023 15:33:13 0.1 0.0-6.0 (%) Final Basos 08/21/2023 15:33:13 0.3 0.0-2.0 (%) Final Immature Granulocyte, Percent 08/21/2023 15:33:13 0.9 0.0-2.0 (%) Final Absolute Segs 08/21/2023 15:33:13 7.81 Above high normal 1.80-7.70 (K/uL) Final Lymphs, absolute 08/21/2023 15:33:13 0.50 Below low normal 1.00-4.80 (K/ul) Final Monos, Abs 08/21/2023 15:33:13 2.02 Above high normal 0.00-1.10 (K/uL) Final Eos, Abs 08/21/2023 15:33:13 0.01 0.00-0.70 (K/uL) Final Basos, Abs 08/21/2023 15:33:13 0.03 0.00-0.20 (K/uL) Final Immature Granulocytes, Number 08/21/2023 15:33:13 0.09 0.00-0.20 (K/uL) Final Performing Location LABORATORY [facility] [place] - [facility] [address] [facility] [address]
--- OUTSIDE RECORDS SUMMARY | 2023-08-22 17:23 | External Medical Summary | Summary of Care ---
Author Name Unknown Organization [facility] Address [address] [place] [address] Phone [phone] Care Team Providers Care Councilman Name Role Phone CaseySavanah harry Oswaldo JIMÉNEZ Primary Care Provider [phone] Reason for Visit * Reason Comments Outpatient Testing Encounter Details Date Type Department Care Team (Late st Contact Info) Description 08/15/2023 11:00 AM EST Laboratory Laboratory, [facility] [address] [place] [phone] [facility], Laboratory [address] [place] [address] Multiple myeloma, remission status unspecified (HCC) Allergies Active Allergy Reactions Criticality Noted Date Comments Calcium Carb-Cholecalciferol 016 documented as of this encounter (statuses as of 08/15/2023) Medications Medication Sig Dispensed Refills Start Date End Date Status ASPIRIN ADULT LOW DOSE 81 MG TBECIndications:Dys lipidemia, goal LDL below 100 TAKE 1 TABLET BY MOUTH EVERY DAY IN THE MORNING 90 Tab 3 07/04/2018 Active Clobetasol Propionate 0.05 % External Cream (Temovate)Indicatio ns:Atopic dermatitis Apply topically to affected area 2 times a day. To affected area for up to two weeks. 60 g 1 10/15/2021 Active Additional Information Patient taking differently:TopicalPRN, To affected area for up to two weeks., Reported on 12/16/2022 Ondansetron HCl 8 MG Oral Tablet (Zofran)Indications :Multiple myeloma (HCC) Take by mouth 1 Tablet every 8 hours as needed for Nausea. 30 Tablet 2 02/24/2022 Active Additional Information Patient not taking.Reported on 07/10/2023 Prochlorperazine Maleate 10 MG Oral Tablet (Compazine)Indicati ons:Multiple myeloma (HCC) Take by mouth 1 Tablet [...] Petites 200-6.25 MG-MCG Oral Tablet (Calcium Citrate-Vitamin D)Indications:Multi ple myeloma not having achieved remission (HCC),Hypocalcemia Take 1 Tablet by mouth in the morning. 90 Tablet 1 08/15/2022 Active Probiotic Acidophilus Oral Capsule Take by mouth daily. 0 Active Dexamethasone 4 MG Oral Tablet (Decadron)Indicatio ns:Multiple myeloma (HCC) Take 40mg (10 tablets) once a week 40 Tablet 5 01/09/2023 Active Nitroglycerin 0.4 MG Sublingual Tablet Sublingual (Nitrostat)Indicati ons:Atherosclerosis of pokagon coronary artery of pokagon heart without angina pectoris One tablet under tongue if needed for chest pain. May repeat 3 times. If chest pain continues, call 911 75 Tablet 3 03/20/2023 Active Acyclovir 400 MG Oral Tablet (Zovirax)Indication s:Multiple myeloma not having achieved remission (HCC) TAKE 1 TABLET BY MOUTH EVERY DAY IN THE MORNING AND BEFORE BEDTIME 180 Tablet 3 03/27/2023 Active Atorvastatin Calcium 80 MG Oral Tablet (Lipitor)Indication s:Dyslipidemia, goal LDL below 100 TAKE 1 TABLET BY MOUTH EVERY DAY 90 Tablet 3 04/21/2023 Active Mirtazapine 15 MG Oral Tablet (Remeron)Indication s:Poor appetite TAKE 1 TAB BY MOUTH AT BEDTIME. TO HELP WITH APPETITE, AND MOOD. 90 Tablet 1 05/01/2023 Active Famotidine 20 MG Oral Tablet (Pepcid)Indications :Gastroesophageal reflux disease without esophagitis TAKE 1 TABLET BY MOUTH TWICE A DAY 180 Tablet 3 05/03/2023 Active traMADol HCl 50 MG Oral Tablet (Ultram)Indications :Multiple myeloma, remission status unspecified (HCC) Take 1 [...] 07/31/2023 Active Lenalidomide 10 MG Oral Capsule (Revlimid)Indicatio ns:Multiple myeloma not having achieved remission (HCC) TAKE 1 CAPSULE BY MOUTH 1 TIME A DAY FOR 14 DAYS ON THEN 7 DAYS OFF 14 Capsule 0 08/10/2023 Active documented as of this encounter (statuses as of 08/15/2023) Active Problems Problem Noted Date Diagnosed Date Dyslipidemia 03/29/2022 Abdominal aortic aneurysm without rupture [...] cancer 04/24/2020 Coronary artery disease invo lving pokagon heart without angina pectoris 05/22/2019 Old myocardial infarct 12/06/2018 S/p bare metal coronary artery stent 01/12/2015 Tobacco use disorder 04/16/2012 HTN, goal below 130/80 2012 GERD (gastroesophageal reflux disease) 2 documented as of this encounter (statuses as of 08/15/2023) Resolved Problems Problem Noted Date Diagnosed Date Resolved Date Dehydration 02/01/2021 03/29/2022 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 Atherosclerosis of coronary artery without angina pectoris 09/14/2018 03/29/2022 ST elevation myocardial infarction (STEMI) 03/20/2017 12/06/2018 Lung nodule 10/14/2015 03/29/2022 ST elevation myocardial infa rction (STEMI) involving other coronary artery 05/19/2015 03/20/[address] elevation SC (STEMI) 01/12/201508/26 Myocardial infarction 02/03/20142017 COPD, moderate 08/27/2013 08/06/2020 Overview: Per COPD GOLD Classification Noncompliance 03/13/2013 03/21/2017 Anemia 05/03/2012 03/29/2022 COPD, severity to be determined 04/16/2012 08/27/2013 Dyslipidemia, goal LDL below 70 04/16/2012 03/29/2022 documented as of this encounter (statuses as of 08/15/2023) Immunizations Name Administration Dates Next Due COVID-19 mRNA, LNP-s, No Pre serve, 2-Dose Series (FookyZ) 08/28/2021,02/18/2021,01/28/2021 Pneumococcal Conjugate Vacc, 13 Valent (Prevnar) [...] Passive Smoke Exposure: Current Smokeless Tobacco: Never Alcohol Use Standard Drinks/Week Comments No 0 (1 standard drink = 0.6 oz pure alcohol) chronic alcoholic, sober for years now PHQ-2 Answer Date Recorded PHQ-2 Score 0 07/30/2020 Hunger Vital Sign Answer Date Recorded Within the past 12 months, y ou worried that your food would run out before you got the money to buy more. Never true 09/23/20 22 Within the past 12 months, t he [...] on file documented as of this encounter Plan of Treatment Upcoming Encounters Date Type Department Care Team (Late st Contact Info) Description 08/16/2023 9:30 AM EST Office Visit Hematology/Oncology [facility] [address] [facility] [place] [address] Luann De La Cruz MD [address] [facility] [place] [address] 08/16/2023 10:00 AM EST Hem/Onc Treatment Hematology/Oncology Treatment, [place] [address] [facility] [place] [address] Treas, Chair 3 Hem Onc [facility] [address] [facility] [place] [address] 08/23/2023 3:30 PM EST Office Visit Cardiology, [facility] [address] [facility] [address] Brian Hager MD [address] [place] [address] 08/25/2023 6:00 PM EST Scheduled Telephone Pharmacy Hematology Oncology [address] [address] [facility] Hem/Onc [place] [address] [place] [address] 08/29/2023 11:00 AM EST Laboratory Laboratory, [address] [phone] [address] [address] 08/30/2023 9:00 AM EST Pharmacy Pharmacy Hematology Oncology [address] [place] [address] [facility] [place] Hem/Onc [facility] [place] [address] 08/30/2023 11:30 AM EST Hem/Onc Treatment Hematology/Oncology Treatment, [place] [address] [place] [address] Tresa, Chair 7 Hem Onc [place] [address] [facility], [place] [address] 09/07/2023 12:30 PM EST Hem/Onc Treatment Hematology Oncology [facility], [place] [address] [place] [address] G, Infusion Chair [facility] [place] [address] 09/07/2023 2:30 PM EST Appointment Radiology, [address] [phone] 09/07/2023 2:30 PM EST Appointment Radiology, [address] [phone] 09/07/2023 4:00 PM EST Office Visit Vascular Surg [facility], [address] [address] Robin Burleson MD [address] [place] [address] 09/12/2023 10:30 AM EST Laboratory Laboratory, [address] [phone] [place] [address] [place] [address] 09/13/2023 10:15 AM EST Hem/Onc Treatment Hematology/Oncology Treatment, [place] [address] [place], [place] [address] Tresa, Chair 3 Hem Onc [place] [address] [facility], [place] [address] 09/26/2023 10:30 AM EST Laboratory Laboratory, [facility] [address] [place] [phone] [facility] [address] [place] [address] 09/27/2023 10:00 AM EST Office Visit Hematology/Oncology [facility] [address] [place] [address] Luann De La Cruz MD [address] [place] [address] 09/27/2023 10:30 AM EST Hem/Onc Treatment Hematology/Oncology Treatment, [place] [address] [place] [address] Tresa, Chair 11 Hem Onc [facility] [address] [facility] [address] 10/20/2023 10:30 AM EST Office Visit Cardiology, [facility] [address] [place] [address] Leda Myers, PAKiera [address] [place] [address] 10/30/2023 10:50 AM EST Office Visit Ophthalmology, [facility] [address] [place] [address] Kana Frost, DO [address] [place] [address] 01/12/2024 10:10 AM EDT Office Visit Family [facility], [facility] [address] [place] [phone] Savanah Geiger, DO [address] [place] [address] Pending Results Name Type Priority Associated Diagnoses Date /Time CBC WITH WBC DIFFERENTIAL Lab Routine Multiple myeloma, remission status unspecified (HCC) 08/15/2023 10:32 AM EST COMPREHENSIVE METABOLIC PANEL Lab Routine Multiple myeloma, remission status unspecified (HCC) 08/15/2023 10:32 AM EST IMMUNOGLOBULIN QUANTITATIVE Lab Routine Multiple myeloma, remission status unspecified (HCC) 08/15/2023 10:32 AM EST SERUM FREE LIGHT CHAINS Lab Routine Multiple myeloma, remission status unspecified (HCC) 08/15/2023 10:32 AM EST SERUM PROTEIN ELECTROPHORESIS REFLEX PROFILE Lab Routine Multiple myeloma, remission status unspecified (HCC) 08/15/2023 10:32 AM EST CBC Lab Routine Multiple myeloma, remission status unspecified (HCC) 08/15/2023 10:32 AM EST DIFFERENTIAL, AUTOMATED Lab Routine Multiple myeloma, remission status unspecified (HCC) 08/15/2023 10:32 AM EST Scheduled Procedures Name Priority Associated Diagnoses Date/Ti [...] ( season) 2023 08/28/2021, 02/18/2021, 01/28/2021 GFR 01/17/2024 07/18/2023, 06/25, 06/20/2023, Additional history exists CKD PHOS USE SMARTSET 55078 2024 02/13/2023, 0 02/11/2021 CKD HGB USE SMARTSET 68225 07/18/202407/18, 07/18/2023, 07/04/2023, Additional history exists O2 ASSESSMENT COMPLETED IN PAST YEAR FOR COPD 07/19/2024 07/19/2023 LUNG CANCER SCREENING - USE SMARTSET 00454 Completed 03/14/2022, 06/03/2020, 05/27/2020, Additional history exists [...] as of this encounter Visit Diagnoses Diagnosis Multiple myeloma, remission status unspecified (HCC) documented in this encounter Care Teams Councilman Relationship Specialty Start Date End Date Savanah Geiger DO [address] [place] [address] PCP - General Family Medicine 04/11/12 documented as of this encounter
--- OUTSIDE RECORDS SUMMARY | 2023-08-22 17:23 | External Medical Summary ---
Author Name Unknown Address Unknown Organization K01:LABORATORY [facility] - [address] [place] [address] Laboratory Report Ordering Provider Test Date Status MARY ANNE LAGUNA 08/15/2023 10:32:58 Final Observation Date Value Abnormality Reference (Units ) Status IgG 08/15/2023 10:32:58 576 Below low normal 700 -1600 (mg/dL) Final IgA 08/15/2023 10:32:58 147 70-400 (mg /dL) Final IgM 08/15/2023 10:32:58 25 Below low normal 40- 230 (mg/dL) Final Performing Location LABORATORY [facility] - [address] [place] [address]
--- OUTSIDE RECORDS SUMMARY | 2023-08-22 17:23 | External Medical Summary ---
Author Name Unknown Address Unknown Organization K01:[facility] [place] [facility] [address] [facility] [address] [facility] [address] Laboratory Report Ordering Provider Test Date Status MARY ANNE LAGUNA 08/15/2023 10:32:58 Final Observation Date Value Abnormality Reference (Units) Status Protein 10:32:58 5.9 Below low normal 6.0-8.3 (g/dL) Final Albumin/Protein.total [Pure mass fraction] in Serum or Plasma by Electrophoresis 10:32:58 3.12 Below low normal 3.30-4.40 (g/dL) Final Alpha 1 globulin/Protein.tota l [Pure mass fraction] in Serum or Plasma by Electrophoresis 10:32:58 0.25 0.10-0.30 (g/dL) Final Alpha 2 globulin/Protein.tota l [Pure mass fraction] in Serum or Plasma by Electrophoresis 10:32:58 1.13 Above high normal 0.60-1.00 (g/dL) Final Beta globulin/Protein.tota l [Pure mass fraction] in Serum or Plasma by Electrophoresis 10:32:58 0.80 0.80-1.30 (g/dL) Final Gamma globulin/Protein.tota l [Pure mass fraction] in Serum or Plasma by Electrophoresis 10:32:58 0.61 Below low normal 0.70-1.70 (g/dL) Final Protein Fractions [Interpretation] in Serum or Plasma by Electrophoresis Narrative 10:32:58 A paraprotein is present that has been previously identified as a monoclonal IgG lambda. Decreased gamma fraction. Paraprotein concentration is detectable, but less than 0.5 g/dL, unable to be accurately quantified by this method. Final Performing Location [facility] [address] [facility] [address] [facility] [address]
--- OUTSIDE RECORDS SUMMARY | 2023-08-22 17:23 | External Medical Summary ---
Author Name Unknown Address Unknown Organization K01:LABORATORY [place] [address] [facility] [address] [place] [address] Laboratory Report Ordering Provider Test Date Status MARY ANNE LAGUNA 08/15/2023 10:32:58 Final Observation Date Value Abnormality Reference (Units ) Status WBC, Total 08/15/2023 10:32:58 9.85 4.00-10.80 (K/uL) Final RBC 08/15/2023 10:32:58 3.95 4.50-5.25 (M/uL) Final Hemoglobin 08/15/2023 10:32:58 12.3 Below low normal 14.0-16.8 (g/dL) Final HCT 08/15/2023 10:32:58 39.8 Below low normal 40.0-48.4 (%) Final MCV 08/15/2023 10:32:58 100.8 82.0-99.5 (fL) Final MCH 08/15/2023 10:32:58 31.1 27.0-34.0 (pg) Final MCHC 08/15/2023 10:32:58 30.9 32.0-36.0 (g/dL) Final RDW 08/15/2023 10:32:58 15.7 11.5-15.5 (%) Final Platelets 08/15/2023 10:32:58 279 140-400 (K/uL) Final MPV 08/15/2023 10:32:58 12.2 6.6-11.1 (fL) Final Nucleated erythrocytes/100 leukocytes [Ratio] in Blood by Automated count 08/15/2023 10:32:58 0 <=0 (/100 WBCs) Final Performing Location LABORATORY [facility] [place] - [facility] [address] [place] [address]
--- OUTSIDE RECORDS SUMMARY | 2023-08-22 17:23 | External Medical Summary ---
Author Name Unknown Address Unknown Organization K01:LABORATORY [place] [address] [facility] [address] [facility] [address] Laboratory Report Ordering Provider Test Date Status MARY ANNE LAGUNA 08/15/2023 10:32:58 Final Observation Date Value Abnormality Reference (Units ) Status [place] light chains, Free, Serum 08/15/2023 10:32:58 31.01 Above high normal 3.30-19.40 (mg/L) Final Lambda light chains, free, Serum 08/15/2023 10:32:58 26.92 Above high normal 5.71-26.30 (mg/L) Final KAPPA LAMBDA [facility] RATIO 08/15/2023 10:32:58 1.15 0.26-1.65 Final Performing Location LAB[facility]ATORY [facility] [place] - [facility] [address] [facility] [address] [place] [address]
--- OUTSIDE RECORDS SUMMARY | 2023-08-22 17:23 | External Medical Summary | Summary of Care ---
Author Name Unknown Organization [facility] Address [address] [place] [address] Phone [phone] Care Team Providers Care Psychiatric Tech Name Role Phone CaseySavanah harry Oswaldo JIMÉNEZ Primary Care Provider + [phone] Reason for Visit * Reason Comments Outpatient Testing Encounter Details Date Type Department Care Team (Latest Contact Info) Description 08/21/2023 3:40 PM EST Laboratory Laboratory, [facility] [address] [place] [phone] [facility] [address] [place], [place] [id number] Multiple myeloma not having achieved remission (HCC); Viral gastroenteritis Allergies Active Allergy Reactions Criticality Noted Date [...] MG Sublingual Tablet Sublingual (Nitrostat)Indication s:Atherosclerosis of kaguy[place] coronary artery of [place] heart without angina pectoris One tablet under [...] Active Problems Problem Noted Date Diagnosed Date Coronary artery disease of n ative artery of kaguy[place] heart with stable angina pectoris 08/21/2023 Dyslipidemia 03/29/2022 Abdominal aortic aneurysm without rupture [...] cancer 04/24/2020 Coronary artery disease invo lving kaguyuk heart without angina pectoris 05/22/2019 Old myocardial [...] coronary artery 05/19/2015 03/20/[address] elevation ID (STEMI) 01/12/201508/26 Myocardial infarction 02/03/20142017 COPD, moderate 08/27/2013 08/06/2020 Overview: Per COPD GOLD Classification Noncompliance 03/13/2013 03/21/2017 Anemia 05/03/2012 03/29/2022 COPD, severity to be determined 04/16/2012 08/27/2013 Dyslipidemia, goal LDL below 70 04/16/2012 03/29/2022 documented as of this encounter (statuses as of 08/21/2023) Immunizations Name Administration Dates Next Due COVID-19 mRNA, LNP-s, No Pre serve, 2-Dose Series (Lookmash) 08/28/2021,02/18/2021,01/28/2021 Pneumococcal Conjugate Vacc, 13 Valent (Prevnar) [...] 08/23/2023 3:30 PM EST Office Visit Cardiology, [facility] [address] [address] Brian Hager MD [address] [address] 08/25/2023 6:00 PM EST Scheduled Telephone Pharmacy Hematology Oncology [facility] [address] [place] [address] [facility] Hem/Onc [facility] [address] [place] [address] 08/29/2023 11:00 AM EST Laboratory Laboratory, [place] [address] [place] [address] [place] [address] [place] [address] 08/30/2023 9:00 AM EST Pharmacy Pharmacy Hematology Oncology [facility], [place] [address] [place] [address] [facility] Hem/Onc [address] [place] [address] 08/30/2023 11:30 AM EST Hem/Onc Treatment Hematology/Oncology Treatment, [place] [address] [place] [address] Tresa, Chair 7 Hem Onc [address] [place] [address] 09/07/2023 12:30 PM EST Hem/Onc Treatment Hematology Oncology [facility], [place] [address] [place] [address] G, Infusion Chair [address] [place] [address] 09/07/2023 2:30 PM EST Appointment Radiology, [address] [phone] 09/07/2023 2:30 PM EST Appointment Radiology, [address] [phone] 09/07/2023 4:00 PM EST Office Visit Vascular [facility], [address] [address] Robin Burleson MD [address] [place] [address] 09/12/2023 10:30 AM EST Laboratory Laboratory, [place] [address] [place] [phone] [facility] [address] [place] [address] 09/13/2023 10:15 AM EST Hem/Onc Treatment Hematology/Oncology Treatment, [place] [address] [place] [address] Tresa, Chair 3 Hem Onc Scenery [address] [place], [place] [address] 09/26/2023 10:30 AM EST Laboratory Laboratory, [place] [address] [place] [phone] [facility] [address] [place] [facility] [place] [address] 09/27/2023 10:00 AM EST Office Visit Hematology/Oncology [place] [address] [place] [address] Luann De La Cruz MD [address] [place], [place] [address] 09/27/2023 10:30 AM EST Hem/Onc Treatment Hematology/Oncology Treatment, [place] [address] [place], [place] [address] Tresa, Chair 11 Hem Onc Scenery [address] [place], [place] [address] 10/20/2023 10:30 AM EST Office Visit Cardiology, [facility] 132 [place] [address] Leda Myers, JUANITA 132 [place] [address] 10/30/2023 10:50 AM EST Office Visit Ophthalmology, [facility] [address] [place] [address] Kana Frost, DO [address] [place] [address] 01/12/2024 10:10 AM EDT Office Visit [facility], [place] [address] [place] [facility] [place] [phone] Savanah Geiger, DO [address] [place] [address] Pending Results Name Type Priority Associated Diagnoses Date /Time COMPREHENSIVE METABOLIC PANEL Lab Routine Multiple myeloma not having achieved remission (HCC) 08/21/2023 3:33 PM EST CBC WITH WBC DIFFERENTIAL Lab Routine Multiple myeloma not having achieved remission (HCC) 08/21/2023 3:33 PM EST MAGNESIUM Lab Routine Viral gastroenteritis 08/21/2023 3:33 PM EST CBC Lab Routine Multiple myeloma not having achieved remission (HCC) 08/21/2023 3:33 PM EST DIFFERENTIAL, AUTOMATED Lab Routine Multiple myeloma not having achieved remission (HCC) 08/21/2023 3:33 PM EST Scheduled Procedures Name Priority Associated Diagnoses [...] Additional history exists CKD PHOS USE SMARTSET 72747 2024 02/13/2023, 0 02/11/2021 CKD HGB USE SMARTSET 53049 08/15/202408/15, 08/15/2023, 07/18/2023, Additional history exists O2 ASSESSMENT COMPLETED IN PAST YEAR FOR COPD 08/16/2024 08/16/2023 LUNG CANCER SCREENING - USE SMARTSET 04345 Completed 03/14/2022, 06/03/2020, 05/27/2020, Additional history exists [...] of this encounter Visit Diagnoses Diagnosis Multiple myeloma not having achieved remission (HCC) Multiple myeloma, without mention of having achieved remission Viral gastroenteritis Intestinal infection due to other organism, not elsewhere classified documented in this encounter Care Teams Psychiatric Tech Relationship Specialty Start Date End Date Savanah Geiger DO [address] [place] [address] PCP - General Family Medicine 04/11/12 documented as of this encounter
--- OUTSIDE RECORDS SUMMARY | 2023-08-22 17:23 | External Medical Summary ---
Author Name Unknown Address Unknown Organization K01:LABORATORY [place] [address] [place] [address] Laboratory Report Ordering Provider Test Date Status MARY ANNE LAGUNA 08/21/2023 15:33:13 Final Observation Date Value Abnormality Reference (Units ) Status WBC, Total 08/21/2023 15:33:13 10.46 4.00-10.80 (K/uL) Final RBC 08/21/2023 15:33:13 3.99 4.50-5.25 (M/uL) Final Hemoglobin 08/21/2023 15:33:13 12.5 Below low normal 14.0-16.8 (g/dL) Final HCT 08/21/2023 15:33:13 39.8 Below low normal 40.0-48.4 (%) Final MCV 08/21/2023 15:33:13 99.7 82.0-99.5 (fL) Final MCH 08/21/2023 15:33:13 31.3 27.0-34.0 (pg) Final MCHC 08/21/2023 15:33:13 31.4 32.0-36.0 (g/dL) Final RDW 08/21/2023 15:33:13 15.9 11.5-15.5 (%) Final Platelets 08/21/2023 15:33:13 172 140-400 (K/uL) Final MPV 08/21/2023 15:33:13 12.0 6.6-11.1 (fL) Final Nucleated erythrocytes/100 leukocytes [Ratio] in Blood by Automated count 08/21/2023 15:33:13 0 <=0 (/100 WBCs) Final Performing Location [facility] [place] [facility] [address] [place] [address]
--- OUTSIDE RECORDS SUMMARY | 2023-08-22 17:23 | External Medical Summary ---
Author Name Unknown Address Unknown Organization K01:[facility]ORY [facility] [place] - [address] [place] [address] Laboratory Report Ordering Provider Test Date Status 08/21/2023 15:33:13 Final Observation Date Value Abnormality Reference (Units ) Status Magnesium 08/21/2023 15:33:13 2.1 1.5-2.6 (m g/dL) Final Performing Location LABORATORY [facility] - [address] [place] [address]
--- OUTSIDE RECORDS SUMMARY | 2023-08-22 17:23 | External Medical Summary | Summary of Care ---
Author Name Unknown Organization [facility] Address [address] [place] [address] Phone [phone] Care Team Providers Care Food And Beverage Associate Name Role Phone GriffinreedSavanah DO Primary Care Provider Reason for Visit * Reason Onset Date Comments Appointment 08/10/2023 Treatment (Cindy Tresa PT) Encounter Details Date Type Department Care Team (Late st Contact Info) Description 08/10/2023 Telephone Hematology Oncology [facility], [place] [address] [place] [address] Services, Scheduling [address] [place] [address] Appointment (Treatment (Cindy Tresa PT)) Allergies Active Allergy Reactions Criticality Noted Date Comments Calcium Carb-Cholecalciferol 016 documented as of this encounter (statuses as of 08/11/2023) Medications Medication Sig Dispensed Refills Start Date [...] MG Sublingual Tablet Sublingual (Nitrostat)Indicati ons:Atherosclerosis of viejas coronary artery of viejas heart without angina pectoris One tablet under [...] as of this encounter (statuses as of 08/11/2023) Active Problems Problem Noted Date Diagnosed Date [...] cancer 04/24/2020 Coronary artery disease invo lving viejas heart without angina pectoris 05/22/2019 Old myocardial infarct 12/06/2018 S/p bare metal coronary artery stent 01/12/2015 Tobacco use disorder 04/16/2012 HTN, goal below 130/80 2012 GERD (gastroesophageal reflux disease) 2 documented as of this encounter (statuses as of 08/11/2023) Resolved Problems Problem Noted Date Diagnosed Date Resolved Date Dehydration 02/01/2021 03/29/2022 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 Atherosclerosis of coronary artery without angina pectoris 09/14/2018 03/29/2022 ST elevation myocardial infarction (STEMI) 03/20/2017 12/06/2018 Lung nodule 10/14/2015 03/29/2022 ST elevation myocardial infa rction (STEMI) involving other coronary artery 05/19/2015 03/20/[address] elevation [place] (STEMI) 01/12/201508/26 Myocardial infarction 02/03/20142017 COPD, moderate 08/27/2013 08/06/2020 Overview: Per COPD GOLD Classification Noncompliance 03/13/2013 03/21/2017 Anemia 05/03/2012 03/29/2022 COPD, severity to be determined 04/16/2012 08/27/2013 Dyslipidemia, goal LDL below 70 04/16/2012 03/29/2022 documented as of this encounter (statuses as of 08/11/2023) Immunizations Name Administration Dates Next Due COVID-19 mRNA, LNP-s, No Pre serve, 2-Dose Series ([employer]) 08/28/2021,02/18/2021,01/28/2021 Pneumococcal Conjugate Vacc, 13 Valent (Prevnar) [...] on file documented as of this encounter Miscellaneous Notes * Telephone Encounter - Magali Dubon OSA - 08/11/2023 10:43 AM EST Appointments were made for hydration CT and DrAnand For 09/07/2023 Left message for patient to verify appointments. * Telephone Encounter - Susan Menendez PA-C - 08/11/2023 9:02 AM EST Thank you for letting me know. We will be rescheduling the patient's vascular appointment along with hydration for his CT. PARs, Can we please help facilitate this? Thanks! * Telephone Encounter - Sarahy Mcallister RN - 08/11/2023 8:53 AM EST Patient was cancelling hydration at [facility] related to CT scan. Both of these were ordered by Susan Menendez, not by [facility] hem/onc. Will route to her/ [facility] to advise patient. * Telephone Encounter - Sarah Crawley OSA - 08/10/2023 6:14 PM EST We received a call from Brian's Val. She was calling to cancel his treatment appointment for tomorrow at 9:00am. She said Brian has an upper respiratory infection and is not feeling well. He is a patient of Dr. Johnson at our [facility] office but this treatment he was scheduled to have a [facility]. Please give Val a call back at [phone] to reschedule. Thank you! documented in this encounter Plan of Treatment Upcoming Encounters Date Type Department Care Team (Late st Contact Info) Description 08/14/2023 6:30 PM EST Scheduled Telephone Pharmacy Hematology Oncology [facility], [place] [address] [place] [address] [facility] Hem/Onc [facility] [address] [place] [address] 08/15/2023 11:00 AM EST Laboratory Laboratory, [place] [address] [place] [address] [facility] [address], [place] [phone] 08/16/2023 9:30 AM EST Office Visit [facility]ology[facility] [address] [place] [address] Luann De La Cruz MD 200 [facility] [place] [address] 08/16/2023 10:00 AM EST Hem/Onc Treatment Hematology/Oncology Treatment, [place] [address] [place] [address] Tresa, Chair 3 Hem Onc [facility] 200 [facility] [place] [address] 08/23/2023 3:30 PM EST Office Visit Cardiology, [facility] [address] [address] Brian Hager MD [address] [address] 08/29/2023 11:00 AM EST Laboratory Laboratory, [place] [address] [place] [phone] [facility] [address], [place] [phone] 08/30/2023 9:00 AM EST Pharmacy Pharmacy Hematology Oncology [facility], [address] [address] [facility] [place] [place], [facility] Hem/Onc [address] [place] [address] 08/30/2023 11:30 AM EST Hem/Onc Treatment Hematology/Oncology Treatment, [place] [address] [place] [address] Park, Chair 7 Hem Onc [facility] 200 [place] [address] 09/07/2023 12:30 PM EST Hem/Onc Treatment Hematology Oncology [facility], [address] [address] G, Infusion Chair [address] [place] [address] 09/07/2023 2:30 PM EST Appointment Radiology, [address] [phone] 09/07/2023 2:30 PM EST Appointment Radiology, [address] [phone] 09/07/2023 4:00 PM EST Office Visit Vascular [facility], [address] [address] Robin Burleson MD [facility] [place] [address] 09/12/2023 10:30 AM EST Laboratory Laboratory, [address] [address] [place] [address] [place] [address] 09/13/2023 10:15 AM EST Hem/Onc Treatment Hematology/Oncology Treatment, [place] 200 [place] [address] Tresa, Chair 3 Hem Onc [address] [place], [place] [address] 09/26/2023 10:30 AM EST Laboratory Laboratory, [place] [address] [place] [facility] [place] [address] [facility] [address] [place] [facility] [place] [address] 09/27/2023 10:00 AM EST Office Visit Hematology/Oncology [facility] [address] [place] [address] Luann De La Cruz MD [address] [place] [address] 09/27/2023 10:30 AM EST Hem[facility]Onc [facility] 200 [facility], [place] [address] Tresa, Chair 11 Hem Onc Scenery [address] [place], [place] [address] 10/20/2023 10:30 AM EST Office Visit Cardiology, [facility] 132 [facility] [place] [address] Leda Myers, PAKiera 132 [facility] [address] [place] [address] 10/30/2023 10:50 AM EST Office Visit Ophthalmology, [facility] 132 [facility] [place] [address] Kana Frost, DO 16 [facility] [address] 01/12/2024 10:10 AM EDT Office Visit [facility], [place] [address] [place] [facility] [place] [phone] Savanah Geiger, DO [address] [place] [address] Scheduled Procedures Name Priority Associated Diagnoses Date/Ti [...] Additional history exists CKD PHOS USE SMARTSET 92104 2024 02/13/2023, 0 02/11/2021 CKD HGB USE SMARTSET 87289 07/18/202407/18, 07/18/2023, 07/04/2023, Additional history exists O2 ASSESSMENT COMPLETED IN PAST YEAR FOR COPD 07/19/2024 07/19/2023 LUNG CANCER SCREENING - USE SMARTSET 54242 Completed 03/14/2022, 06/03/2020, 05/27/2020, Additional history exists [...] Not on filedocumented as of this encounter Care Teams Food And Beverage Associate Relationship Specialty Start Date End Date Savanah Geiger DO [address] [address] PCP - General Family Medicine 04/11/12 documented as of this encounter
--- OUTSIDE RECORDS SUMMARY | 2023-08-22 17:23 | External Medical Summary ---
Author Name Unknown Address Unknown Organization K01:LAB[facility]ORY [facility] [place] - [address] [facility] [place] [address] Laboratory Report Ordering Provider Test Date Status MARY ANNE LAGUNA 08/15/2023 10:32:58 Final Observation Date Value Abnormality Reference (Units ) Status SYNC LEUKOCYTES IN BLOOD BY AUTOMATED COUNT 08/15/2023 10:32:58 9.85 4.00-10.80 (K/uL) Final Segs 08/15/2023 10:32:58 73.5 40.0-75.0 (%) Final Lymphs % 08/15/2023 10:32:58 9.6 Below low normal 18.0-42.0 (%) Final Monos 08/15/2023 10:32:58 13.1 Above high normal 1.0-11.0 (%) Final Eosinophils 08/15/2023 10:32:58 2.2 0.0-6.0 (%) Final Basos 08/15/2023 10:32:58 0.5 0.0-2.0 (%) Final Immature Granulocyte, Percent 08/15/2023 10:32:58 1.1 0.0-2.0 (%) Final Absolute Segs 08/15/2023 10:32:58 7.23 1.80-7.70 (K/uL) Final Lymphs, absolute 08/15/2023 10:32:58 0.95 Below low normal 1.00-4.80 (K/ul) Final Monos, Abs 08/15/2023 10:32:58 1.29 Above high normal 0.00-1.10 (K/uL) Final Eos, Abs 08/15/2023 10:32:58 0.22 0.00-0.70 (K/uL) Final Basos, Abs 08/15/2023 10:32:58 0.05 0.00-0.20 (K/uL) Final Immature Granulocytes, Number 08/15/2023 10:32:58 0.11 0.00-0.20 (K/uL) Final Performing Location LAB[facility]ATORY [facility] [place] - [facility] [address] [facility] [address]
--- OUTSIDE RECORDS SUMMARY | 2023-08-22 17:23 | External Medical Summary | Summary of Care ---
Author Name Unknown Organization [facility] Address [address] [place] [address] Phone [phone] Care Team Providers Care Procurement Engineer Name Role Phone Savanah Geiger DO Primary Care Provider + [phone] Reason for Visit * Reason Comments Chemotherapy Velcade * Episode Based Medications (Routine) - Authorized Specialty Diagnoses / Procedures Referred By Contnataliia t Referred To Contact Diagnoses Multiple myeloma not having achieved remission (HCC) Procedures ND INJ., VELCADE 0.1 MG Luann De La Cruz MD [address] [place] [address] Anc Hem/Onc Sharlene Gtz DEPT CLOSED - 08/08/23 [address] [place] [address] Referral ID Status Reason Start Date Expiration Date V isits Requested Visits Authorized [id number] Authorized 02/22/2022 09/24/2099 99 99 Encounter Details Date Type Department Care Team (Latest Contact Info) Description 08/16/2023 10:00 AM EST Hem/Onc Treatment Hematology/Oncolog y Treatment, [place] [address] [place] [address] Tresa, Chair 3 Hem Onc Scenery [address] [place] [address] Multiple myeloma not having achieved remission (HCC)*; Encounter for antineoplastic chemotherapy Allergies Active Allergy Reactions Criticality Noted Date Comments Calcium Carb-Cholecalciferol 016 documented as of this encounter (statuses as of 08/16/2023) Medications Medication Sig Dispensed Refills Start Date [...] MG Sublingual Tablet Sublingual (Nitrostat)Indicati ons:Atherosclerosis of solomon coronary artery of solomon heart without angina pectoris One tablet under [...] as of this encounter (statuses as of 08/16/2023) Active Problems Problem Noted Date Diagnosed Date [...] cancer 04/24/2020 Coronary artery disease invo lving solomon heart without angina pectoris 05/22/2019 Old myocardial infarct 12/06/2018 S/p bare metal coronary artery stent 01/12/2015 Tobacco use disorder 04/16/2012 HTN, goal below 130/80 2012 GERD (gastroesophageal reflux disease) 2 documented as of this encounter (statuses as of 08/16/2023) Resolved Problems Problem Noted Date Diagnosed Date Resolved Date Dehydration 02/01/2021 03/29/2022 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 Atherosclerosis of coronary artery without angina pectoris 09/14/2018 03/29/2022 ST elevation myocardial infarction (STEMI) 03/20/2017 12/06/2018 Lung nodule 10/14/2015 03/29/2022 ST elevation myocardial infa rction (STEMI) involving other coronary artery 05/19/2015 03/20/[address] elevation MS (STEMI) 01/12/201508/26 Myocardial infarction 02/03/20142017 COPD, moderate 08/27/2013 08/06/2020 Overview: Per COPD GOLD Classification Noncompliance 03/13/2013 03/21/2017 Anemia 05/03/2012 03/29/2022 COPD, severity to be determined 04/16/2012 08/27/2013 Dyslipidemia, goal LDL below 70 04/16/2012 03/29/2022 documented as of this encounter (statuses as of 08/16/2023) Immunizations Name Administration Dates Next Due COVID-19 mRNA, LNP-s, No Pre serve, 2-Dose Series (PushToTest) 08/28/2021,02/18/2021,01/28/2021 Pneumococcal Conjugate Vacc, 13 Valent (Prevnar) [...] on file documented as of this encounter Nursing Notes * Evonne Lundberg RN - 08/16/2023 3:15 PM EST Chair 6. Patient saw Dr. De La Cruz today -- see OV note for details. Patient feels well without complaints, other than some mild fatigue at times. Chemo agents Velcade ABN Labs WNL for tx Alt in Tx: N/A Return in 2 weeks Functional status at today's visit: Restricted in physically strenuous activity but ambulatory and able to carry out work on a light orsedentary nature, e.g. light house work, office work The drug name, dose, injection volume, rate and route of administration, expiration date and time, appearance and physical integrity of the drug and rate set on the pump and sequencing of drug administration (as applicable) were verified by me and second sign-in RN. Patient was assessed for symptoms or adverse side effects during treatment. Patient tolerated treatment well without any acute issues or problems. Patient left facility in stable condition and denied any further needs. documented in this encounter Plan of Treatment Upcoming Encounters Date Type Department Care Team (Late st Contact Info) Description 08/23/2023 3:30 PM EST Office Visit Cardiology, [facility] [address] [place] [address] Brian Hager MD [address] [place] [address] 08/25/2023 6:00 PM EST Scheduled Telephone Pharmacy Hematology Oncology [address] [address] [facility] Hem/Onc Tech [facility] [place] [address] 08/29/2023 11:00 AM EST Laboratory Laboratory, [address] [phone] [address] 08/30/2023 9:00 AM EST Pharmacy Pharmacy Hematology Oncology [facility], [address] [address] [facility] Hem/Onc [address] [place] [address] 08/30/2023 11:30 AM EST Hem/Onc Treatment Hematology/Oncology Treatment, [place] [address] [place] [address] Tresa, Chair 7 Hem Onc Scenery [address] [place] [address] 09/07/2023 12:30 PM EST Hem/Onc Treatment Hematology Oncology [facility], [address] [id number] G, Infusion Chair [address] [place] [id number] 09/07/2023 2:30 PM EST Appointment Radiology, [address] [address] 09/07/2023 2:30 PM EST Appointment Radiology, [place] [address] [place] [address] 09/07/2023 4:00 PM EST Office Visit Vascular [facility], [place] [address] [place] [address] Robin Burleson MD [address] [place] [address] 09/12/2023 10:30 AM EST Laboratory Laboratory, [place] [address] [place] [address] [place] [address] [place] [address] 09/13/2023 10:15 AM EST [facility] [address] Tresa, Chair 3 Hem Onc Scenery 200 [facility] [place] [address] 09/26/2023 10:30 AM EST Laboratory Laboratory, [place] [address] [place] [phone] [place] [address] [place] [address] 09/27/2023 10:00 AM EST Office Visit Hematology/Oncology [facility] 200 [facility] [place] [address] Luann De La Cruz MD [address] [place] [address] 09/27/2023 10:30 AM EST [facility] [address] Tresa, Chair 11 Hem Onc Scenery [address] [place] [address] 10/20/2023 10:30 AM EST Office Visit Cardiology, [facility] 132 [place] [address] Leda Myers PA-C 132 [facility] [place] [address] 10/30/2023 10:50 AM EST Office Visit Ophthalmology, [facility] 132 [place] [address] Kana Frost, DO [address] [place] [address] 01/12/2024 10:10 AM EDT Office Visit [place] [address] [place] [address] Savanah Geiger, [address] [place] [address] Scheduled Procedures Name Priority Associated Diagnoses Date/Ti [...] 07/30/2021 07/30/2020, 07/12/2017 (Declined) COVID-19 Vaccine ( - 2022- season) 2023 08/28/2021, 02/18/2021, 01/28/2021 GFR 02/13/2024 08/15/2023, 06/26, 07/04/2023, Additional history exists CKD PHOS USE SMARTSET 94964 2024 02/13/2023, 0 02/11/2021 CKD HGB USE SMARTSET 44948 08/15/202408/15, 08/15/2023, 07/18/2023, Additional history exists O2 ASSESSMENT COMPLETED IN PAST YEAR FOR COPD 08/16/2024 08/16/2023 LUNG CANCER SCREENING - USE SMARTSET 87971 Completed 03/14/2022, 06/03/2020, 05/27/2020, Additional history exists [...] Diagnosis Multiple myeloma not having achieved remission (HCC)- Primary Multiple myeloma, without mention of having achieved remission Encounter for antineoplastic chemotherapy documented in this encounter Administered Medications Inactive Administered Medications - up to 3 most recent administrations Medication Order MAR Action Action Date Dose Rate Site Bortezomib (Velcade) 2.5 mg/mL subQ inj 2.5 mg 2.5 mg (rounded from 2.431 mg = 1.3 mg/m2 1.87 m2 Treatment Plan BSA from Recorded weight), Subcutaneous, ONCE, On Mon08/16/23 at 1145, For 1 dose, Caution chemotherapy: Handle with gloves Given 08/16/2023 10:23 AM EST 2.5 mg Abdomen Left Lower documented in this encounter Care Teams Procurement Engineer Relationship Specialty Start Date End Date Savanah Geiger DO [address] [place] [facility] [place] [address] PCP - General Family Medicine 04/11/12 documented as of this encounter
--- OUTSIDE RECORDS SUMMARY | 2023-08-22 17:23 | External Medical Summary ---
Author Name Unknown Address Unknown Organization K01:LABORATORY [facility] - [address] [facility] [address] Laboratory Report Ordering Provider Test Date Status STEPHEN,08/21/2023 15:55:26 Final Observation Date Value Abnormality Reference (Units ) Status SARS Coronavirus 2 08/21/2023 15:55:26 Positive Abnormal N egative Final SARS-CoV2 Coronavirus RNA de tected by PCR (amplified probe). Test results reported to [facility].
This express test was developed and its performance characteristics determined by [facility]. It has not been cleared or approved by the U.S. Food and Drug Administration (FDA). FDA does not require this test to go thru premarket FDA review. This test is used for clinical purposes. It should not be regarded as investigational or for research. This laboratory is certified under the Clinical Laboratory Improvement Amendments (CLIA) as qualified to perform high complexity clinical laboratory testing.

This test is a nucleic acid amplification test (NAAT), a reverse transcriptase polymerase chain reaction (RT-PCR) test, or a Centers for Disease Control-acceptable equivalent. The test is performed in a high complexity Clinical Laboratory Improvement Amendments-(CLIA) certified laboratory. The test is acceptable for SARS-CoV-2 diagnosis, surveillance, and travel within the [place] and to most countries. Please check with local testing authorities about requirements before travel.

The validation of bronchial specimens, tracheal aspirates, and sputum for this assay was developed and performance characteristics determined by [facility]. The validation of alternate specimen types has not been cleared or approved by the U.S. Food and Drug Administration (FDA). It has been determined that such clearance is not necessary. Influenza virus A RNA [Prese nce] in Specimen by KIRAN with probe detection 08/21/2023 15:55:26 Negative Negative Final No Influenza A RNA detected by PCR (amplified probe) Influenza virus B RNA [Prese nce] in Specimen by KIRAN with probe detection 08/21/2023 15:55:26 Negative Negative Final No Influenza B RNA detected by PCR (amplified probe) Respiratory syncytial virus RNA [Identifier] in Specimen by KIRAN with probe detection 08/21/2023 15:55:26 Negative Negative Final No Respiratory Syncytial Vir us RNA detected by PCR (amplified probe) Performing Location LABORATORY [place] [address] [facility] [address]
--- OUTSIDE RECORDS SUMMARY | 2023-08-22 17:23 | External Medical Summary | Summary of Care ---
Author Name Unknown Organization [facility] Address [address] [place] [address] Phone [phone] Care Team Providers Care Quality Control Specialist Name Role Phone CaseySavanah harry Oswaldo JIMÉNEZ Primary Care Provider Reason for Visit * Reason Onset Date Comments Medication Refill 08/16/2023 Encounter Details Date Type Department Care Team (Late st Contact Info) Description 08/16/2023 Refill Cardiology, [facility] [address] [place] [address] Brian Hager MD [address] [place] [address] Dyslipidemia, goal LDL below 100 Allergies Active Allergy Reactions Criticality Noted Date Comments Calcium Carb-Cholecalciferol 016 documented as of this encounter (statuses as of 08/19/2023) Medications Medication Sig Dispensed Refills Start Date End Date Status ASPIRIN ADULT LOW DOSE 81 MG TBECIndications:D yslipidemia, goal LDL below 100 TAKE 1 TABLET BY MOUTH EVERY DAY IN THE MORNING 90 Tab 3 07/04/2018 Active Clobetasol Propionate 0.05 % External Cream (Temovate)Indicat ions:Atopic dermatitis Apply topically to affected area 2 times a day. To affected area for up to two weeks. 60 g 1 10/15/2021 Active Additional Information Patient taking differently:TopicalPRN, To affected area for up to two weeks., Reported on 12/16/2022 Ondansetron HCl 8 MG Oral Tablet (Zofran)Indicatio ns:Multiple myeloma (HCC) Take by mouth 1 Tablet every 8 hours as needed for Nausea. 30 Tablet 2 02/24/2022 Active Additional Information Patient not taking.Reported on 07/10/2023 Prochlorperazine Maleate 10 MG Oral Tablet (Compazine)Indica tions:Multiple myeloma (HCC) Take by mouth 1 Tablet [...] Petites 200-6.25 MG-MCG Oral Tablet (Calcium Citrate-Vitamin D)Indications:Mul tiple myeloma not having achieved remission (HCC),Hypocalcemi a Take 1 Tablet by mouth in the morning. 90 Tablet 1 08/15/2022 Active Probiotic Acidophilus Oral Capsule Take by mouth daily. 0 Active Dexamethasone 4 MG Oral Tablet (Decadron)Indicat ions:Multiple myeloma (HCC) Take 40mg (10 tablets) once a week 40 Tablet 5 01/09/2023 Active Nitroglycerin 0.4 MG Sublingual Tablet Sublingual (Nitrostat)Indica tions:Atheroscler osis of tlingit & haida coronary artery of tlingit & haida heart without angina pectoris One tablet under tongue if needed for chest pain. May repeat 3 times. If chest pain continues, call 911 75 Tablet 3 03/20/2023 Active Acyclovir 400 MG Oral Tablet (Zovirax)Indicati ons:Multiple myeloma not having achieved remission (HCC) TAKE 1 TABLET BY MOUTH EVERY DAY IN THE MORNING AND BEFORE BEDTIME 180 Tablet 3 03/27/2023 Active Mirtazapine 15 MG Oral Tablet (Remeron)Indicati ons:Poor appetite TAKE 1 TAB BY MOUTH AT BEDTIME. TO HELP WITH APPETITE, AND MOOD. 90 Tablet 1 05/01/2023 Active Famotidine 20 MG Oral Tablet (Pepcid)Indicatio ns:Gastroesophage al reflux disease without esophagitis TAKE 1 TABLET BY MOUTH TWICE A DAY 180 Tablet 3 05/03/2023 Active traMADol HCl 50 MG Oral Tablet (Ultram)Indicatio ns:Multiple myeloma, remission status unspecified (HCC) Take 1 [...] 07/31/2023 Active Lenalidomide 10 MG Oral Capsule (Revlimid)Indicat ions:Multiple myeloma not having achieved remission (HCC) TAKE 1 CAPSULE BY MOUTH 1 TIME A DAY FOR 14 DAYS ON THEN 7 DAYS OFF 14 Capsule 0 08/10/2023 Active Atorvastatin Calcium 80 MG Oral Tablet (Lipitor)Indicati ons:Dyslipidemia, goal LDL below 100 Take 1 Tablet by mouth in the morning. 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 angina pectoris 05/22/2019 Old myocardial infarct 12/06/2018 S/p bare metal coronary artery stent 01/12/2015 Tobacco use disorder 04/16/2012 HTN, goal below 130/80 2012 GERD (gastroesophageal reflux disease) 2 documented as of this encounter (statuses as of 08/19/2023) Resolved Problems Problem Noted Date Diagnosed Date Resolved Date Dehydration 02/01/2021 03/29/2022 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 Atherosclerosis of coronary artery without angina pectoris 09/14/2018 03/29/2022 ST elevation myocardial infarction (STEMI) 03/20/2017 12/06/2018 Lung nodule 10/14/2015 03/29/2022 ST elevation myocardial infa rction (STEMI) involving other coronary artery 05/19/2015 03/20/[address] elevation [place] (STEMI) 01/12/201508/26 Myocardial infarction 02/03/20142017 COPD, moderate 08/27/2013 08/06/2020 Overview: Per COPD GOLD Classification Noncompliance 03/13/2013 03/21/2017 Anemia 05/03/2012 03/29/2022 COPD, severity to be determined 04/16/2012 08/27/2013 Dyslipidemia, goal LDL below 70 04/16/2012 03/29/2022 documented as of this encounter (statuses as of 08/19/2023) Immunizations Name Administration Dates Next Due COVID-19 mRNA, LNP-s, No Pre serve, 2-Dose Series (Kwestr) 08/28/2021,02/18/2021,01/28/2021 Pneumococcal Conjugate Vacc, 13 Valent (Prevnar) [...] encounter Miscellaneous Notes * Telephone Encounter - Xochilt Baires DO - 08/19/2023 2:47 PM ESTSigned Prescriptions: Disp Refills Atorvastatin Calcium 80 MG Oral Tablet (Li*90 Tab*3 Sig: Take 1 Tablet by mouth in the morning. Authorizing Provider: XOCHILT BAIRES * Telephone Encounter - Lucia Cheek COT - 08/18/2023 8:25 AM ESTPending Prescriptions: Disp Refills Atorvastatin Calcium 80 MG Oral Tablet (Jody*90 Tab*3 Sig: Take 1 Tablet by mouth in the morning. * Telephone Encounter - Lucia Cheek COT - 08/18/2023 8:25 AM EST Did you pend patient's preferred pharmacy and medication before forwarding?yes Pharmacy: [id number] [address] [facility] Pending Prescriptions: Disp Refills Atorvastatin Calcium 80 MG Oral Tablet (L*90 Tab*3 Sig: Take 1 Tablet by mouth in the morning. Last Visit: 12/16/2022 (in office), 10/21/2020 (telemedicine) Next Visit: 08/23/2023 If no future appointments scheduled, and last appointment is greater than a year ago, please schedule patient for a follow-up appointment Last date the medication was ordered: 04-21-2023 Is this request for a controlled substance?No Urine Drug Screen:No results found. However, due to the size of the patient record, not all encounters were searched. Please check Results Review for a complete set of results. Patient Phone Numbers Labs: Lab Results Component Value Date/Time CREAT 1.4 (H) 08/15/2023 10:32 AM CREAT 1.7 (H) 03/02/2022 09:56 AM CREAT 0.9 10/01/2020 07:44 AM POTASSIUM 4.5 08/15/2023 10:32 AM POTASSIUM 3.0 (L) 10/01/2020 07:44 AM TSH 2.16 07/18/2023 10:42 AM TSH 2.47 09/14/2018 12:22 PM LDLCALC 74 02/13/2023 08:03 AM LDLCALC 73 09/14/2018 12:22 PM LDLDIRECT NOT APPLICABLE 09/14/2018 12:22 PM ALT 21 08/15/2023 10:32 AM ALT 15 10/01/2020 07:44 AM documented in this encounter Plan of Treatment Upcoming Encounters Date Type Department Care Team (Late st Contact Info) Description 08/23/2023 3:30 PM EST Office Visit Cardiology, [facility] [address] [place] [place] [address] Brian Hager MD [address] [place] [address] 08/25/2023 6:00 PM EST Scheduled Telephone Pharmacy Hematology Oncology [facility], [address] [address] [facility] Hem/Onc Tech [address] [place] [address] 08/29/2023 11:00 AM EST Laboratory Laboratory, [address] [phone] [place], Laboratory [address] [place] [address] 08/30/2023 9:00 AM EST Pharmacy Pharmacy Hematology Oncology [facility], [address] [address] [facility] Hem/Onc [address] [place] [address] 08/30/2023 11:30 AM EST Hem/Onc Treatment Hematology/Oncology Treatment, [place] [address] [place] [address] Tresa, Chair 7 Hem Onc Scenery [address] [place] [address] 09/07/2023 12:30 PM EST Hem/Onc Treatment Hematology Oncology [facility], [address] [address] G, Infusion Chair [address] [place] [address] 09/07/2023 2:30 PM EST Appointment Radiology, [address] [phone] 09/07/2023 2:30 PM EST Appointment Radiology, [address] [phone] 09/07/2023 4:00 PM EST Office Visit Vascular [facility], [address] [address] Robin Burleson MD [facility] [place] [address] 09/12/2023 10:30 AM EST Laboratory Laboratory, [place] [address] [place] [facility] [address] [place], Laboratory [address] [place], [place] [address] 09/13/2023 10:15 AM EST Hem/Onc Treatment Hematology/Oncology [facility] 200 [place] [address] Tresa, Chair 3 Hem Onc Scenery 200 [facility] [place] [address] 09/26/2023 10:30 AM EST Laboratory Laboratory, [place] [address] [place] [facility] [address] [facility] Laboratory [address] [place], [place] [address] 09/27/2023 10:00 AM EST Office Visit Hematology/Oncology [facility] [address] [place], [place] [address] Luann De La Cruz MD [address] [place], [place] [address] 09/27/2023 10:30 AM EST Hem[facility] 200 [facility], [place] [address] Tresa, Chair 11 Hem Onc Scenery [address] [place], [place] [address] 10/20/2023 10:30 AM EST Office Visit Cardiology, [facility] [place] [address] Leda Myers, JUANITA [address] [place] [address] 10/30/2023 10:50 AM EST Office Visit Ophthalmology, [facility] [address] [place] [address] Kana Frost, DO 16 [facility] [place] [address] 01/12/2024 10:10 AM EDT Office Visit Family [facility] [address] [place] [phone] Savanah Baires, DO [address] [place], [place] [phone] Scheduled Procedures Name Priority Associated Diagnoses Date/Ti [...] Additional history exists CKD PHOS USE SMARTSET 34129 2024 02/13/2023, 0 02/11/2021 CKD HGB USE SMARTSET 397[address] 08/15/202408/15, 08/15/2023, 07/18/2023, Additional history exists O2 ASSESSMENT COMPLETED IN PAST YEAR FOR COPD 08/16/2024 08/16/2023 LUNG CANCER SCREENING - USE SMARTSET 34308 Completed 03/14/2022, 06/03/2020, 05/27/2020, Additional history exists [...] as of this encounter Visit Diagnoses Diagnosis Dyslipidemia, goal LDL below 100 Other and unspecified hyperlipidemia documented in this encounter Care Teams Quality Control Specialist Relationship Specialty Start Date End Date Savanah Baires DO [address] [place] [address] PCP - General Family Medicine 04/11/12 documented as of this encounter
--- OUTSIDE RECORDS SUMMARY | 2023-08-22 17:23 | External Medical Summary ---
Author Name Unknown Address Unknown Organization K01:LABORATORY [facility] - 100 [facility] [place] [address] Laboratory Report Ordering Provider Test Date Status MARY ANNE LAGUNA 08/15/2023 10:32:58 Final Observation Date Value Abnormality Reference (Units ) Status BUN 08/15/2023 10:32:58 20 6-20 (mg/dL) Final Creatinine 08/15/2023 10:32:58 1.4 Above high normal 0.6-1.2 (mg/dL) Final Glomerular filtration rate/1.73 sq M.predicted [Volume Rate/Area] in Serum, Plasma or Blood by Creatinine-based formula (CKD-EPI) 08/15/2023 10:32:58 53 Below low normal >=60 (mL/min) Final eGFR is calculated based on the CKD-EPI 2020 equation SODIUM 08/15/2023 10:32:58 137 135-146 (m mol/L) Final Potassium 08/15/2023 10:32:58 4.5 3.5-5.1 (m mol/L) Final Cl 08/15/2023 10:32:58 102 98-107 (mm ol/L) Final CO2 08/15/2023 10:32:58 24 22-32 (mmo l/L) Final Anion gap 08/15/2023 10:32:58 11 7-15 (mmol /L) Final Glucose 08/15/2023 10:32:58 99 70-120 (mg /dL) Final Albumin 08/15/2023 10:32:58 4.0 3.8-5.0 (g /dL) Final AST (Aspartate aminotransferase) 08/15/2023 10:32:58 17 10-50 (U/L) Fin al Alk Phos 08/15/2023 10:32:58 104 35-130 (U/ L) Final Bilirubin, Total 08/15/2023 10:32:58 0.4 <=1 .2 (mg/dL) Final Calcium 08/15/2023 10:32:58 8.6 8.4-10.2 ( mg/dL) Final Protein 08/15/2023 10:32:58 5.9 Below low normal 6.0 -8.3 (g/dL) Final ALT (Alanine aminotransferase) 08/15/2023 10:32:58 21 10-50 (U/L) Andrzej caal Performing Location LABORATORY [facility] - [address] [facility] [address]
--- OUTSIDE RECORDS SUMMARY | 2023-08-22 17:23 | External Medical Summary | Summary of Care ---
Author Name Unknown Organization [facility] Address [address] [place] [address] Phone [phone] Care Team Providers Care Staple Laster Name Role Phone Caseypiero Savanah Oswaldo JIMÉNEZ Primary Care Provider Reason for Visit * Reason Comments Chemotherapy Chemo/recheck Encounter Details Date Type Department Care Team (Late st Contact Info) Description 08/16/2023 9:30 AM EST Office Visit Hematology/Oncology [facility] [address] [facility] [place] [address] Luann De La Cruz MD [address] [facility] [place] [address] Multiple myeloma, remission status unspecified (HCC)* Allergies Active Allergy Reactions Criticality Noted Date [...] MG Sublingual Tablet Sublingual (Nitrostat)Indicati ons:Atherosclerosis of [place] coronary artery [place] heart without angina pectoris One tablet under [...] cancer 04/24/2020 Coronary artery disease invo lving [place] heart without angina pectoris 05/22/2019 Old myocardial [...] coronary artery 05/19/2015 03/20/[address] elevation [place] (STEMI) 01/12/201508/26 Myocardial infarction 02/03/20142017 COPD, moderate 08/27/2013 08/06/2020 Overview: Per COPD GOLD Classification Noncompliance 03/13/2013 03/21/2017 Anemia 05/03/2012 03/29/2022 COPD, severity to be determined 04/16/2012 08/27/2013 Dyslipidemia, goal LDL below 70 04/16/2012 03/29/2022 documented as of this encounter (statuses as of 08/16/2023) Immunizations Name Administration Dates Next Due COVID-19 mRNA, LNP-s, No Pre serve, 2-Dose Series ([place]) 08/28/2021,02/18/2021,01/28/2021 Pneumococcal Conjugate Vacc, 13 Valent (Prevnar) [...] Sign Reading Time Taken Comments Blood Pressure 116/78 08/16/2023 9:21 AM EST Pulse 66 08/16/2023 9:21 AM EST Temperature 36.7 C (98.1 F) 08/16/2023 9:21 AM ES T Respiratory Rate 16 08/16/2023 9:21 AM EST Oxygen Saturation 92% 08/16/2023 9:21 AM EST Inhaled Oxygen Concentration - - Weight 76.5 kg (168 lb 11.2 oz) 08/16/2023 9:21 AM EST Height 172.7 cm (5' 8") 08/16/2023 9:21 AM EST Body Mass Index 25.65 08/16/2023 9:21 AM EST documented in this encounter Progress Notes * Luann De La Cruz MD - 08/16/2023 9:26 AM EST Outpatient Consult Note Data Source: Patient, Epic record. Data Source: Patient, Epic record. 08/16/2023 9:26 AM Brian Potternaya [id number] 73 year old Patient Encounter: HEMATOLOGY/ONCOLOGY [facility] Cancer Diagnosis: - multiple myeloma, IgG lambda R-ISS Staging: III - bladder tumor. 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 He was treated [id number]/14/2020 and received last dose of Velcade on 01/29/2021. Since that time chemo was on hold because of recurrent episode of C diff and infection. - Restarted on VRD chemotherapy and received 1st cycle on 04/01/2022 for relapse disease. Received last dose on 07/01/2022 and refused to continue. - Patient is following urologist for bladder tumor and was treated with BCG instillation Oncologic History : 73-year-old male with history of multiple medical problem including coronary artery disease, hypertension, COPD, dyslipidemia. Patient history significant for alcohol abuse. He quit drinking about 15years ago. He has history of chronic coronary artery disease with known total right coronary arteryocclusion and bare metal stenting in 01/2015. Recently he presented with complaint of intermittent gross hematuria since June 2019 with occasional left side back pain. 2 months ago, gross hematurianoted to be more consistent with clot passage. No fever, no chills, no unusual abdominal discomfort. On 04/17/[address] urography done which shows Large bladder mass. Pathologic destructive lesion the left 10th posterior rib. 5 cm infrarenal abdominal aortic aneurysm as described above. Recommend vascular surgery consultation. Right lower lobe pneumonia. Indeterminate enhancement of the rectum. On 04/27/2020 Cystoscopy with meatal dilation and Clot Evacuation and fulguration of prostatic varicosity with Transurethral Resection Bladder Tumor, large. - Bo Garcia DO. Extremely largebleeding tumors of the dome, anterior, and right lateral side of the bladder. Approx 12 cm of tumorfilling a majority of the volume of the bladder. largest tumor on the right wall was targeted and the entire tumor was assessed. The tumor was resected. Deep resection specimens were sent separately.The bulk of the tumor was removed and sent for analysis. The resection bed and edges of the resection were fulgurated and the entire area inspected. All bleeding was controlled. The dome lesion was also large and appeared to be the source of the majority of the bleeding. This tumor was fully resected and sent for analysis. Finally with the large bulky tumors removed, a smaller tumor was discovered at the anterior wall. This was resected and sent separate. Each of the resection beds were fulgurated and all bleeding was controlled. Pathology was consistent with a high-grade papillary urothelial carcinoma with no definite invasion: FINAL DIAGNOSIS A. BLADDER, TUMOR, TRANSURETHRAL RESECTION: - HIGH GRADE PAPILLARY UROTHELIAL CARCINOMA - DETRUSOR MUSCLE (MUSCULARIS PROPRIA) IS NOT SEEN - NO DEFINITIVE INVASION IDENTIFIED B. BLADDER, DOME TUMOR, TRANSURETHRAL RESECTION: - HIGH GRADE PAPILLARY UROTHELIAL CARCINOMA - DETRUSOR MUSCLE (MUSCULARIS PROPRIA) IS PRESENT - NO DEFINITIVE INVASION IDENTIFIED C. BLADDER, DEEP RESECTION, TRANSURETHRAL RESECTION: - HIGH GRADE PAPILLARY UROTHELIAL CARCINOMA - [place] MUSCLE (MUSCULARIS PROPRI[place]) IS NOT SEEN - NO DEFINITIVE INVASION IDENTIFIED D. 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 Left 10th rib lesion, core biopsy: Category: Malignant Final Interpretation: Plasmacytoma (myeloma). See Note. Note: Two slides contain cores of soft tissue infitrated by dense well differentiated neoplastic plasma cells. Touch prep conatins well differentiated plasma cells. Immunostains are performed on block A1, and the plasma cells are posiitve for CD138, CD20 (small subset) and are negative for CD3, and cyclinD1. The plasma cells are monoclonal with lambda light chian restriction by in situ hybridization using antiKappa and anti-lamda probes. The results of special studies support the final diagnosis. The block is being sent o [facility] for ancillary studies and the testing report will follow Patient had CT scan of the chest done yesterday without contrast and shows Multifocal consolidationright lower lobe slightly improved since 05/13/2020, several are somewhat masslike with largest measuring 2.8 cm. Bony metastases left posterior 10th rib, left posterolateral 9th rib, right posterolateral 7th rib, and tip of the right scapula. Patient denies any headache, dizziness, blurred vision, chest pain palpitation, abdominal pain or distention bruising. He is eating better and has more energy level. He quit smoking in March 2020. He used to smoke 1 pack per day for over 50 years. Admits to occasional marijuana use. Family history is negative for hematology Oncology problem Dr. 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 IgG level is 5893 and serum lambda was 721. Serum protein electrophoresis shows M spike of 3.93 PET scan was done and shows Limited FDG uptake in the right 7th and left 10th expansile rib lesions, both appearing compatible with the biopsy results of the left 10th rib of malignant plasmacytoma, Limited evaluation of the urinary bladder secondary to limitations of excreted intense FDG within the bladder. Postsurgical changes and asymmetric right greater than left urinary bladder wall thickening appreciated on CT only. A. 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 Trilineage hematopoiesis is reduced. Flow cytometry analysis of bone marrow reveals a population of atypical cells, immunophenotypicallyconsistent with involvement by patients previously diagnosed plasma cell neoplasm. He underwent transurethral resection of the tumor on 10/26/2020. He had Large patch of small papillary tumors along dome approx 6.3 cm x 1.3 cm with additional tumors on left lateral wall near dome and right lateral wall near previous scar FINAL DIAGNOSIS A. 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 - Invasion of the subepithelial connective tissue and the muscularis propria is not seen. - A papillary neoplasm is not seen in this case. - The TNM STAGE is Tis. B. Urinary bladder, left bladder wall (transurethral resection of a bladder tumor): - Urothelial carcinoma in situ (CIS) is seen. - Invasion of the subepithelial connective tissue and the muscularis propria is not seen. - The TNM stage is Tis. - Please see comment. - C. Urinary bladder, right bladder wall (transurethral resection of a bladder tumor) - Mild chronic cystitis with hemosiderin deposition is seen. - Dysplasia and carcinoma are not seen. Patient is following Dr. Harris's for bladder cancer. He continued receiving 3 weeks BCG every 6 months. Last cystoscopy was done on 03/21/2023 and it was negative. Interval History: No new complain. He continues to have episode of back pain which is overall stable. Patient denies any headache, dizziness, blurred vision, chest pain, shortness breath palpitation abdominal pain or distention, bleeding, bruising, nausea, vomiting, fever, night sweats, weight loss, hematuria, hematochezia. His weight is stable. LABS/IMAGING: Results for orders placed or performed in visit on 08/15/23 COMPREHENSIVE METABOLIC PANEL Result Value Ref Range BUN 20 6 - 20 mg/dL Creatinine 1.4 (H) 0.6 - 1.2 mg/dL Estimated Glomerular Filtration Rate 53 (L) >=60 mL/min Sodium 137 135 - 146 mmol/L Potassium 4.5 3.5 - 5.1 mmol/L Chloride 102 98 - 107 mmol/L CO2 24 22 - 32 mmol/L Anion Gap 11 7 - 15 mmol/L Glucose 99 70 - 120 mg/dL Albumin 4.0 3.8 - 5.0 g/dL AST 17 10 - 50 U/L Alkaline Phosphatase 104 35 - 130 U/L Bilirubin, Total 0.4 <=1.2 mg/dL Calcium 8.6 8.4 - 10.2 mg/dL Protein 5.9 (L) 6.0 - 8.3 g/dL ALT 21 10 - 50 U/L IMMUNOGLOBULIN QUANTITATIVE Result Value Ref Range IgG 576 (L) 700 - 1,600 mg/dL IgA 147 70 - 400 mg/dL IgM 25 (L) 40 - 230 mg/dL CBC Result Value Ref Range WBC 9.85 4.00 - 10.80 K/uL RBC 3.95 4.50 - 5.25 M/uL HGB 12.3 (L) 14.0 - 16.8 g/dL HCT 39.8 (L) 40.0 - 48.4 % MCV 100.8 82.0 - 99.5 fL MCH 31.1 27.0 - 34.0 pg MCHC 30.9 32.0 - 36.0 g/dL RDW 15.7 11.5 - 15.5 % PLT 279 140 - 400 K/uL MPV 12.2 6.6 - 11.1 fL nRBCs 0 <=0 /100 WBCs DIFFERENTIAL, AUTOMATED Result Value Ref Range WBC 9.85 4.00 - 10.80 K/uL Neutrophils % 73.5 40.0 - 75.0 % Lymphocytes % 9.6 (L) 18.0 - 42.0 % Monocytes % 13.1 (H) 1.0 - 11.0 % Eosinophils % 2.2 0.0 - 6.0 % Basophils % 0.5 0.0 - 2.0 % Immature Granulocytes % 1.1 0.0 - 2.0 % Absolute Neutrophils 7.23 1.80 - 7.70 K/uL Absolute Lymphocytes 0.95 (L) 1.00 - 4.80 K/ul Absolute Monocytes 1.29 (H) 0.00 - 1.10 K/uL Absolute Eosinophils 0.22 0.00 - 0.70 K/uL Absolute Basophils 0.05 0.00 - 0.20 K/uL Absolute Immature Granulocytes 0.11 0.00 - 0.20 K/uL *Note: Due to a large number of results and/or encounters for the requested time period, some results have not been displayed. A complete set of results can be found in Results Review. All his blood tests are in stable range with stable creatinine and normalization of the light chain. REVIEW OF SYSTEMS: General: No Fever, chills, night sweats, or weight loss. HEENT: No change in visual acuity, blurred or double vision. No epistaxis, facial pain, nasal discharge or change in hearing. Denies dysphagia, no muscosal ulceration, or sores noted. Cardiovascular: No chest pain, BLACK, or palpitations Respiratory: No shortness of breath, cough, hemoptysis, or pleuritic chest pain Gastrointestinal: No abdominal pain, nausea, vomiting, diarrhea, rectal pain or bleeding Genitourinary: Denies Hematuria or dysuria Musculoskeletal: Stable back pain Neurologic: Stable neuropathy with no weakness or change in cognitive function Psychiatric: No vegetative signs of depression Endocrine: No symptoms of hypothyroidism or hyperglycemia Hematologic: No bleeding or lymph nodes noted As mentioned above, all of the systems were reviewed in full and are unremarkable. Past Medical History: Diagnosis Date Dyslipidemia 03/29/2022 Hypertension Lung nodule 10/14/2015 Motion sickness Pancreatitis Was seeing Dr Milan. hospitalized 1 time last March. PONV (postoperative nausea and vomiting) Current Outpatient Medications Medication Sig Dispense Refill ASPIRIN ADULT LOW DOSE 81 MG TBEC TAKE 1 TABLET BY MOUTH EVERY DAY IN THE MORNING 90 Tab 3 Clobetasol Propionate 0.05 % External Cream (Temovate) Apply topically to affected area 2 times a day. To affected area for up to two weeks. (Patient taking differently: Apply topically to affected area as needed. To affected area for up to two weeks.) 60 g 1 Ondansetron HCl 8 MG Oral Tablet (Zofran) Take by mouth 1 Tablet every 8 hours as needed for Nausea. (Patient not taking: Reported on 07/10/2023) 30 Tablet 2 Prochlorperazine Maleate 10 MG Oral Tablet (Compazine) Take by mouth 1 Tablet every 6 hours as needed for Nausea. (Patient not taking: Reported on 07/10/2023) 30 Tablet 2 Metoprolol Tartrate 50 MG Oral Tablet (Lopressor) Take 1 Tablet (50 mg) by mouth in the morning and1 Tablet (50 mg) before bedtime. 180 Tablet 5 [facility] Calcium Citrate+D3 Petites 200-6.25 MG-MCG Oral Tablet (Calcium Citrate- Vitamin D) Take 1 Tablet by mouth in the morning. 90 Tablet 1 Probiotic Acidophilus Oral Capsule Take by mouth daily. Dexamethasone 4 MG Oral Tablet (Decadron) Take 40mg (10 tablets) once a week 40 Tablet 5 Nitroglycerin 0.4 MG Sublingual Tablet Sublingual (Nitrostat) One tablet under tongue if needed forchest pain. May repeat 3 times. If chest pain continues, call 911 75 Tablet 3 Acyclovir 400 MG Oral Tablet (Zovirax) TAKE 1 TABLET BY MOUTH EVERY DAY IN THE MORNING AND BEFORE BEDTIME 180 Tablet 3 Atorvastatin Calcium 80 MG Oral Tablet (Lipitor) TAKE 1 TABLET BY MOUTH EVERY DAY 90 Tablet 3 Mirtazapine 15 MG Oral Tablet (Remeron) TAKE 1 TAB BY MOUTH AT BEDTIME. TO HELP WITH APPETITE, AND MOOD. 90 Tablet 1 Famotidine 20 MG Oral Tablet (Pepcid) TAKE 1 TABLET BY MOUTH TWICE A DAY 180 Tablet 3 traMADol HCl 50 MG Oral Tablet (Ultram) Take 1 Tablet by mouth every 6 hours as needed for Pain, Moderate. 30 Tablet 0 Pantoprazole Sodium 20 MG Oral Tablet Delayed Release (Protonix) Take 1 Tablet by mouth in the morning. 30 minutes before the first meal of the day. Do not crush, split or chew the tablet. 30 Tablet 5 Lenalidomide 10 MG Oral Capsule (Revlimid) TAKE 1 CAPSULE BY MOUTH 1 TIME A DAY FOR 14 DAYS ON THEN7 DAYS OFF 14 Capsule 0 No current facility-administered medications for this visit. Social History Tobacco Use Smoking status: Some Days Packs/day: 1.00 Years: 40.00 Additional pack years: 0.00 Total pack years: 40.00 Types: Cigarettes Last attempt to quit: 04/16/2020 Years since quittin.3 Passive exposure: Current Smokeless tobacco: Never Vaping Use Vaping Use: Never used Substance Use Topics Alcohol use: No Comment: chronic alcoholic, sober for years now Drug use: Yes Types: Marijuana Comment: 2 times a day Review of patient's allergies indicates: Allergen Reactions Calcium Carb-Cholecalciferol PHYSICAL EXAMINATION: General Appearance: Healthy appearing patient in no acute distress BP 116/78 (BP Site: Left Arm, BP Position: Sitting, BP Cuff Size: Large) | Pulse 66 | Temp 36.7 C(98.1 F) (Tympanic) | Resp 16 | Ht 1.727 m (5' 8") | Wt 76.5 kg (168 lb 11.2 oz) | SpO2 92% | BMI25.65 kg/m | BSA 1.92 m Vitals reviewed. HEENT: No oral or pharyngeal masses, ulceration or thrush noted, no sinus tenderness. Neck is supple with no thyromegaly or JVD noted. Lymph Nodes: No lymphadenopathy noted in the occipital, pre and post auricular, cervical, supra andinfraclavicular, axillary, epitrochlear, inguinal, and popliteal region. Lungs/Thorax: Clear to auscultation, no accessory muscles of respiration being used. Heart: Regular rate and rhythm, normal S1, S2 Abdomen: Soft, nontender, bowel sounds present, no appreciable hepatosplenomegaly, no palpable masses Extremeties: Good pulses bilaterally, no peripheral edema. ASSESSMENT: 73-year-old presented with hematuria and was found to have tumor involving the bladder. He had TURBT and histopathology is consistent with high-grade papillary urothelial carcinoma with no definite invasion. He also had lesion on the 10th rib and biopsy of this was done and pathology was consistent with a plasmacytoma. Blood work is consistent with IgG lambda multiple myeloma. 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 Patient also has a he low hemoglobin and bone disease and high creatinine with normal calcium. Beta 2 microglobulin was 8.7 which is high. Patient was start treatment on VRD with excellent response and normalization of IgG level. Receivedlast treatment in 01/2021 and treatment was on hold because of frequent infection and C diff and was treated with prolonged antibiotics. While the chemo was on hold there was a rising level of the immunoglobulin. PET scan was negative for any new disease and the stool was negative for C diff. Patient was restarted VRD chemotherapy on 04/01/2022 after on hold for more than a year. He had good response to chemotherapy with normalization of IgG level and kappa light chain. He received last dose on 07/01/2022 and then refused to continue. Again there was a rising level of lambda light chain and IgG level. Treatment was resumed on 12/06/2022. Clinically he is doing well without any new symptoms and his blood counts are in stable range with normalization of the light chain. Discussed with the patient about diagnosis and reviewed all the available blood test result with him. PLAN: Continue current treatment. He will return clinic for follow-up in 6 weeks with CBC, CMP and myeloma panel. The patient voiced understanding of all of the above. All questions and concerns were addressed in an apparently satisfactory manner. Luann De La Cruz MD (This note was completed using the dictation program Fluency Direct. As such, there may be misspellings, word substitutions, or other variations that should not change the essence of the clinical content of this encounter note. If there is need for further clarification, please direct questions to me.) documented in this encounter Nursing Notes * Wanda Silva CMA - 08/16/2023 9:23 AM EST Patient identifed by name and birthdate Do you have any concerns about pain management for today's visit? yes Living Will or Advance Directive for Health Care as noted on the problem list. [employer] is a way you can talk to your provider on line through e-mail. Would you like to sign up? I can activate it for you? ALREADY ACTIVE Filed Vitals: 08/16/23 0921 BP: 116/78 Pulse: 66 Resp: 16 Temp: 36.7 C (98.1 F) TempSrc: Tympanic SpO2: 92% Weight: 76.5 kg (168 lb 11.2 oz) Height: 1.727 m (5' 8") Patient was instructed to not get up on the exam table/exam chair until directed and assisted by their provider; patient is to remain seated in the chair/ wheelchair/ exam table/ exam chair for fall prevention and safety reasons. Patient is aware to have assistance to step down off exam table/exam chair with personnel. Patient voiced full comprehension of instructions. documented in this encounter Plan of Treatment Upcoming Encounters Date Type Department Care Team (Late st Contact Info) Description 08/23/2023 3:30 PM EST Office Visit Cardiology, [address] [place] [address] Brian Hager MD [address] [place] [address] 08/25/2023 6:00 PM EST Scheduled Telephone Pharmacy Hematology Oncology [facility], [place] [address] [place] [address] [facility] Hem/Onc Tech [address] [place] [address] 08/29/2023 11:00 AM EST Laboratory Laboratory, [place] [address] [place] [phone] [place] [address] [place] [address] 08/30/2023 9:00 AM EST Pharmacy Pharmacy Hematology Oncology [address] [address] [facility] Hem/Onc Formerly named [facility] [place] [address] 08/30/2023 11:30 AM EST Hem/Onc Treatment Hematology/Oncology Treatment, [place] [address] [place] [address] Park, Chair 7 Hem Onc Scenery [address] [place] [address] 09/07/2023 12:30 PM EST Hem/Onc Treatment Hematology Oncology [facility], [place] [address] [place] [address] G, Infusion Chair [address] [place] [address] 09/07/2023 2:30 PM EST Appointment Radiology, [address] [phone] 09/07/2023 2:30 PM EST Appointment Radiology, [address] [phone] 09/07/2023 4:00 PM EST Office Visit Vascular [facility], [place] [address] [place] [address] Robin Burleson MD [address] [place] [address] 09/12/2023 10:30 AM EST Laboratory Laboratory, [place] [address] [place] [phone] [facility] [address] [place] [address] 09/13/2023 10:15 AM EST Hem/Onc Treatment Hematology/Oncology [facility] [address] [place] [address] Tresa, Chair 3 Hem Onc Scenery 200 [facility] [place] [address] 09/26/2023 10:30 AM EST Laboratory Laboratory, [place] [address] [place] [address] [facility] [address] [place] [address] 09/27/2023 10:00 AM EST Office Visit Hematology/Oncology [facility] [place] [address] [place] [address] Luann De La Cruz MD [address] [place] [address] 09/27/2023 10:30 AM EST Hem/Onc Treatment [facility]cology [facility] [place] [facility] [address] Tresa, Chair [address] Hem Onc Scenery 200 [facility] [place] [address] 10/20/2023 10:30 AM EST Office Visit Cardiology, [facility] [address] [facility] [place] [address] Leda Myers, PAKiera [address] [facility] [address] 10/30/2023 10:50 AM EST Office Visit Ophthalmology, [facility] [address] [facility] [place] [address] Kana Frost, DO [address] [place] [address] 01/12/2024 10:10 AM EDT Office Visit Family [address] [phone] Svaanah [place]iger, [address] [address] Scheduled Orders Name Type Priority Associated Diagnoses Orde r Schedule CBC WITH WBC DIFFERENTIAL Lab Routine Multiple myeloma, remission status unspecified (HCC) Expected: 09/27/2023, Expires: 04/09/2024 COMPREHENSIVE METABOLIC PANEL Lab Routine Multiple myeloma, remission status unspecified (HCC) Expected: 09/27/2023, Expires: 04/09/2024 IMMUNOGLOBULIN QUANTITATIVE Lab Routine Multiple myeloma, remission status unspecified (HCC) Expected: 09/27/2023, Expires: 04/09/2024 SERUM FREE LIGHT CHAINS Lab Routine Multiple myeloma, remission status unspecified (HCC) Expected: 09/27/2023, Expires: 04/09/2024 SERUM PROTEIN ELECTROPHORESIS REFLEX PROFILE Lab Routine Multiple myeloma, remission status unspecified (HCC) Expected: 09/27/2023, Expires: 04/09/2024 [id number], SERUM Lab Routine Multiple myeloma, remission status unspecified (HCC) Expected: 09/27/2023, Expires: 04/09/2024 Scheduled Procedures Name Priority Associated Diagnoses Date/Ti [...] Additional history exists CKD PHOS USE SMARTSET 76817 2024 02/13/2023, 0 02/11/2021 O2 ASSESSMENT COMPLETED IN PAST YEAR FOR COPD 07/19/2024 07/19/2023 CKD HGB USE SMARTSET 81014 08/15/202408/15, 08/15/2023, 07/18/2023, Additional history exists LUNG CANCER SCREENING - USE SMARTSET 46675 Completed 03/14/2022, 06/03/2020, 05/27/2020, Additional history exists [...] Diagnoses Diagnosis Multiple myeloma, remission status unspecified (HCC)- Primary documented in this encounter Care Teams Staple Laster Relationship Specialty Start Date End Date Savanah Geiger DO [address] [place] [address] PCP - General Family Medicine 04/11/12 documented as of this encounter
--- OUTSIDE RECORDS SUMMARY | 2023-08-22 17:23 | External Medical Summary | Summary of Care ---
Author Name Unknown Organization [facility] Address [address] [place] [address] Phone [phone] Care Team Providers Care Automatic Pattern Edger Name Role Phone Savanah Geiger DO Primary Care Provider Reason for Visit * Reason Onset Date Comments Medication Update 08/14/2023 FYI 08/14/2023 Specialty pharma cy update Encounter Details Date Type Department Care Team (Latest Contact Info) Description 08/14/2023 6:30 PM EST Scheduled Telephone Pharmacy Hematology Oncology [facility] [address] [place] [address] [facility] Hem/Onc [facility] [address] [place], [place] [phone] Multiple myeloma, remission status unspecified (HCC)* Allergies Active Allergy Reactions Criticality Noted Date Comments Calcium Carb-Cholecalciferol 016 documented as of this encounter (statuses as of 08/14/2023) Medications Medication Sig Dispensed Refills Start Date [...] MG Sublingual Tablet Sublingual (Nitrostat)Indicati ons:Atherosclerosis of [place] coronary artery of [place] heart without angina pectoris One tablet under [...] as of this encounter (statuses as of 08/14/2023) Active Problems Problem Noted Date Diagnosed Date [...] cancer 04/24/2020 Coronary artery disease invo lving [place] heart without angina pectoris 05/22/2019 Old myocardial infarct 12/06/2018 S/p bare metal coronary artery stent 01/12/2015 Tobacco use disorder 04/16/2012 HTN, goal below 130/80 2012 GERD (gastroesophageal reflux disease) 2 documented as of this encounter (statuses as of 08/14/2023) Resolved Problems Problem Noted Date Diagnosed Date Resolved Date Dehydration 02/01/2021 03/29/2022 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 Atherosclerosis of coronary artery without angina pectoris 09/14/2018 03/29/2022 ST elevation myocardial infarction (STEMI) 03/20/2017 12/06/2018 Lung nodule 10/14/2015 03/29/2022 ST elevation myocardial infa rction (STEMI) involving other coronary artery 05/19/2015 03/20/[address] elevation RI (STEMI) 01/12/201508/26 Myocardial infarction 02/03/20142017 COPD, moderate 08/27/2013 08/06/2020 Overview: Per COPD GOLD Classification Noncompliance 03/13/2013 03/21/2017 Anemia 05/03/2012 03/29/2022 COPD, severity to be determined 04/16/2012 08/27/2013 Dyslipidemia, goal LDL below 70 04/16/2012 03/29/2022 documented as of this encounter (statuses as of 08/14/2023) Immunizations Name Administration Dates Next Due COVID-19 mRNA, LNP-s, No Pre serve, 2-Dose Series ([employer]) 08/28/2021,02/18/2021,01/28/2021 Pneumococcal Conjugate Vacc, 13 Valent (Prevnar) [...] encounter Miscellaneous Notes * Telephone Encounter - Joanna Lezama CPhT - 08/14/2023 1:01 PM EST Confirmed [facility] has dispensed Revlimid on 08/11. MTDM to schedule for next authorization accordingly Joanna Lezama Hydrant Setter II [facility] Oral Chemotherapy [facility] 08/14/2023 1:02 PM Time Spent on Encounter: 6 - 10 minutes documented in this encounter Plan of Treatment Upcoming Encounters Date Type Department Care Team (Late st Contact Info) Description 08/15/2023 11:00 AM EST Laboratory Laboratory, [place] [address] [place] [address] [facility] [address] [place] [address] 08/16/2023 9:30 AM EST Office Visit Hematology/Oncology [facility] Tresa [place] [address] [place] [address] Luann De La Cruz MD [address] [place] [address] 08/16/2023 10:00 AM EST Hem/Onc Treatment Hematology/Oncology Treatment, [place] [address] [place] [address] Tresa, Chair [address] On[address] [place] [address] 08/23/2023 3:30 PM EST Office Visit Cardiology, [facility] 132 [facility] [place] [address] Brian Hager MD [address] [place] [address] 08/25/2023 6:00 PM EST Scheduled Telephone Pharmacy Hematology Oncology [facility], [address] [address] [facility] Hem/Onc [facility] [place] [address] 08/29/2023 11:00 AM EST Laboratory Laboratory, [place] [address] [place] [phone] [place] [address] [place] [address] 08/30/2023 9:00 AM EST Pharmacy Pharmacy Hematology Oncology [address] [address] [facility] Hem/Onc [address] [place] [address] 08/30/2023 11:30 AM EST Hem/Onc Treatment Hematology/Oncology Treatment, [place] [address] [place] [address] Park, Chair 7 Hem Onc Scenery [address] [place] [address] 09/07/2023 12:30 PM EST Hem/Onc Treatment Hematology Oncology [address] [address] G, Infusion Chair [address] [place] [address] 09/07/2023 2:30 PM EST Appointment Radiology, [address] [phone] 09/07/2023 2:30 PM EST Appointment Radiology, [address] [address] 09/07/2023 4:00 PM EST Office Visit Vascular [facility] [address] [place] [address] Robin Burleson MD [address] [place] [address] 09/12/2023 10:30 AM EST Laboratory Laboratory, [place] [address] [place] [phone] [facility] Laboratory [address] [place] [address] 09/13/2023 10:15 AM EST Hem/Onc Treatment Hematology/Oncology [facility] 200 [place] [address] Tresa, Chair 3 Hem Onc [address] [place] [address] 09/26/2023 10:30 AM EST Laboratory Laboratory, [place] [address] [place] [phone] [facility] [address] [place] [address] 09/27/2023 10:00 AM EST Office Visit Hematology/Oncology [facility] [address] [place] [address] Luann De La Cruz MD [address] [place], [place] [address] 09/27/2023 10:30 AM EST Hem/Onc Treatment Hematology/Oncology Treatment, [place] [address] [place] [address] Tresa, Chair 11 Hem Onc Scenery [address] [place] [address] 10/20/2023 10:30 AM EST Office Visit Cardiology, [facility] [address] [place] [address] Leda Myers, JUANITA 132 [facility] [address] 10/30/2023 10:50 AM EST Office Visit Ophthalmology, [facility] [address] [place] [address] Kana Frost, DO [address] [place] [address] 01/12/2024 10:10 AM EDT Office Visit Family Practice, [place] [address] [place] [phone] Savanah Geiger, DO [address] [place], [place] [phone] Scheduled Procedures Name Priority Associated Diagnoses Date/Ti [...] Additional history exists CKD PHOS USE SMARTSET 55457 2024 02/13/2023, 0 02/11/2021 CKD HGB USE SMARTSET 06007 07/18/202407/18, 07/18/2023, 07/04/2023, Additional history exists O2 ASSESSMENT COMPLETED IN PAST YEAR FOR COPD 07/19/2024 07/19/2023 LUNG CANCER SCREENING - USE SMARTSET 96388 Completed 03/14/2022, 06/03/2020, 05/27/2020, Additional history exists [...] Primary documented in this encounter Care Teams Automatic Pattern Edger Relationship Specialty Start Date End Date Savanah Geiger DO [address] [place], [place] [phone] PCP - General Family Medicine 04/11/12 documented as of this encounter
--- OUTSIDE RECORDS SUMMARY | 2023-08-22 17:23 | External Medical Summary ---
Author Name Unknown Address Unknown Organization K01:[facility]ORATORY [facility] - 100 [facility] Sourav [place] [address] Laboratory Report Ordering Provider Test Date Status MARY ANNE LAGUNA 08/21/2023 15:33:13 Final Observation Date Value Abnormality Reference (Units ) Status BUN 08/21/2023 15:33:13 35 Above high normal 6-20 (mg/dL) Final Creatinine 08/21/2023 15:33:13 2.0 Above high normal 0.6-1.2 (mg/dL) Final Glomerular filtration rate/1.73 sq M.predicted [Volume Rate/Area] in Serum, Plasma or Blood by Creatinine-based formula (CKD-EPI) 08/21/2023 15:33:13 35 Below low normal >=60 (mL/min) Final eGFR is calculated based on the CKD-EPI 2020 equation SODIUM 08/21/2023 15:33:13 131 Below low normal 135 -146 (mmol/L) Final Potassium 08/21/2023 15:33:13 4.0 3.5-5.1 (m mol/L) Final Cl 08/21/2023 15:33:13 99 98-107 (mm ol/L) Final CO2 08/21/2023 15:33:13 17 Below low normal 22- 32 (mmol/L) Final Anion gap 08/21/2023 15:33:13 15 7-15 (mmol /L) Final Glucose 08/21/2023 15:33:13 122 Above high normal 70 -120 (mg/dL) Final Albumin 08/21/2023 15:33:13 4.2 3.8-5.0 (g /dL) Final AST (Aspartate aminotransferase) 08/21/2023 15:33:13 16 10-50 (U/L) Fin al Alk Phos 08/21/2023 15:33:13 92 35-130 (U/ L) Final Bilirubin, Total 08/21/2023 15:33:13 0.6 <=1 .2 (mg/dL) Final Calcium 08/21/2023 15:33:13 8.3 Below low normal 8.4 -10.2 (mg/dL) Final Protein 08/21/2023 15:33:13 6.2 6.0-8.3 (g /dL) Final ALT (Alanine aminotransferase) 08/21/2023 15:33:13 17 10-50 (U/L) Andrzej caal Performing Location [facility]ATORY [facility] - [address] [facility] [address]
--- OUTSIDE RECORDS SUMMARY | 2023-08-22 17:24 | External Medical Summary | Summary of Care ---
Author Name Unknown Organization [facility] Address [address] [place] [address] Phone [phone] Care Team Providers Care Schedule Analyst Name Role Phone Savanah Geiger DO Primary Care Provider + [phone] Reason for Visit * Reason Comments Chemotherapy Velcade * Episode Based Medications (Routine) - Authorized Specialty Diagnoses / Procedures Referred By Contnataliia t Referred To Contact Diagnoses Multiple myeloma not having achieved remission (HCC) Procedures MI INJ., VELCADE 0.1 MG Luann De La Cruz MD [address] [place] [address] Anc Hem/Onc [facility] DEPT CLOSED - 08/08/[address] [place] [place] [address] [phone] Referral ID Status Reason Start Date Expiration Date V isits Requested Visits Authorized [id number] Authorized 02/22/2022 09/24/2099 99 99 Encounter Details Date Type Department Care Team (Latest Contact Info) Description 07/05/2023 10:00 AM EDT Hem/Onc Treatment Hematology/Oncology Treatment, [place] DEPT CLOSED - 08/08/[address] [place] [phone] Tresa, Chair 2 Hem Onc Scenery [address] [place] [address] [address] Multiple myeloma not having achieved remission (HCC)* Allergies Active Allergy Reactions Criticality Noted Date Comments Calcium Carb-Cholecalciferol 016 documented as of this encounter (statuses as of 08/08/2023) Medications Medication Sig Dispensed Refills Start Date End Date Status ASPIRIN ADULT LOW DOSE 81 MG TBECIndications: Dyslipidemia, goal LDL below 100 TAKE 1 TABLET BY MOUTH EVERY DAY IN THE MORNING 90 Tab 3 07/04/2018 Active Clobetasol Propionate 0.05 % External Cream (Temovate)Indica tions:Atopic dermatitis Apply topically to affected area 2 times a day. To affected area for up to two weeks. 60 g 1 10/15/2021 Active Additional Information Patient taking differently:TopicalPRN, To affected area for up to two weeks., Reported on 12/16/2022 Ondansetron HCl 8 MG Oral Tablet (Zofran)Indicati ons:Multiple myeloma (HCC) Take by mouth 1 Tablet every 8 hours as needed for Nausea. 30 Tablet 2 02/24/2022 Active Prochlorperazine Maleate 10 MG Oral Tablet (Compazine)Indic ations:Multiple myeloma (HCC) Take by mouth 1 Tablet every 6 hours as needed for Nausea. 30 Tablet 2 02/24/2022 Active Metoprolol Tartrate 50 MG Oral Tablet (Lopressor) Take 1 Tablet (50 mg) by mouth in the morning and 1 Tablet (50 mg) before bedtime. 180 Tablet 5 08/15/2022 Active [facility] Calcium Citrate+D3 Petites 200-6.25 MG-MCG Oral Tablet (Calcium Citrate-Vitamin D)Indications:Mu ltiple myeloma not having achieved remission (HCC),Hypocalcem ia Take 1 Tablet by mouth in the morning. 90 Tablet 1 08/15/2022 Active Probiotic Acidophilus Oral Capsule Take by mouth daily. 0 Active Dexamethasone 4 MG Oral Tablet (Decadron)Indica tions:Multiple myeloma (HCC) Take 40mg (10 tablets) once a week 40 Tablet 5 01/09/2023 Active Nitroglycerin 0.4 MG Sublingual Tablet Sublingual (Nitrostat)Indic ations:Atheroscl erosis of [place] coronary artery of [place] heart without angina pectoris One tablet under tongue if needed for chest pain. May repeat 3 times. If chest pain continues, call 911 75 Tablet 3 03/20/2023 Active Acyclovir 400 MG Oral Tablet (Zovirax)Indicat ions:Multiple myeloma not having achieved remission (HCC) TAKE 1 TABLET BY MOUTH EVERY DAY IN THE MORNING AND BEFORE BEDTIME 180 Tablet 3 03/27/2023 Active Atorvastatin Calcium 80 MG Oral Tablet (Lipitor)Indicat ions:Dyslipidemi a, goal LDL below 100 TAKE 1 TABLET BY MOUTH EVERY DAY 90 Tablet 3 04/21/2023 Active Mirtazapine 15 MG Oral Tablet (Remeron)Indicat ions:Poor appetite TAKE 1 TAB BY MOUTH AT BEDTIME. TO HELP WITH APPETITE, AND MOOD. 90 Tablet 1 05/01/2023 Active Famotidine 20 MG Oral Tablet (Pepcid)Indicati ons:Gastroesopha geal reflux disease without esophagitis TAKE 1 TABLET BY MOUTH TWICE A DAY 180 Tablet 3 05/03/2023 Active traMADol HCl 50 MG Oral Tablet (Ultram)Indicati ons:Multiple myeloma, remission status unspecified (HCC) TAKE 1 TABLET BY MOUTH EVERY 6 HOURS NEEDED FOR MODERATE PAIN 30 Tablet 0 06/05/2023 3 Discontinued Lenalidomide 10 MG Oral Capsule (Revlimid)Indica tions:Multiple myeloma not having achieved remission (HCC) TAKE 1 CAPSULE BY MOUTH 1 TIME A DAY FOR 14 DAYS ON THEN 7 DAYS OFF 14 Capsule 0 06/14/2023 3 Discontinued documented as of this encounter (statuses as of 08/08/2023) Active Problems Problem Noted Date Diagnosed Date [...] cancer 04/24/2020 Coronary artery disease invo lving [place] heart without angina pectoris 05/22/2019 Old myocardial infarct 12/06/2018 S/p bare metal coronary artery stent 01/12/2015 Tobacco use disorder 04/16/2012 HTN, goal below 130/80 2012 GERD (gastroesophageal reflux disease) 2 documented as of this encounter (statuses as of 08/08/2023) Resolved Problems Problem Noted Date Diagnosed Date Resolved Date Dehydration 02/01/2021 03/29/2022 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 Atherosclerosis of coronary artery without angina pectoris 09/14/2018 03/29/2022 ST elevation myocardial infarction (STEMI) 03/20/2017 12/06/2018 Lung nodule 10/14/2015 03/29/2022 ST elevation myocardial infa rction (STEMI) involving other coronary artery 05/19/2015 03/20/[address] (STEMI) 01/12/201508/26 Myocardial infarction 02/03/20142017 COPD, moderate 08/27/2013 08/06/2020 Overview: Per COPD GOLD Classification Noncompliance 03/13/2013 03/21/2017 Anemia 05/03/2012 03/29/2022 COPD, severity to be determined 04/16/2012 08/27/2013 Dyslipidemia, goal LDL below 70 04/16/2012 03/29/2022 documented as of this encounter (statuses as of 08/08/2023) Immunizations Name Administration Dates Next Due COVID-19 mRNA, LNP-s, No Pre serve, 2-Dose Series ([employer]) 08/28/2021,02/18/2021,01/28/2021 Pneumococcal Conjugate Vacc, 13 Valent (Prevnar) 07/09/2020 Pneumococcal Polysaccharide PPV23 (Pneumovax) 07/25/2022 Season Influenza, Quad, PF, Adjuvanted, 65+ Yrs, IM (FLUAD) 07/09/2020 Seasonal Influenza, Quadriva lent Hd (Fluzone Hd) 06/23/2022,07/12/2021 Seasonal Influenza, Split, I IV3, With Preserve, [...] as of this encounter Nursing Notes * Tayler Guadalupe RN - 07/05/2023 12:40 PM EDT Ch 7. Pt arrived today for Velcade injection. Pt had labs performed day prior, results WNL. Pt met with Dr. De La Cruz prior to discuss tx. Pt c/o chronic, intermittent loose stool/diarrhea. He denies neuropathy flare. He has no further concerns. Chemo agents Velcade Appetite good Nausea/Vomiting denies Diarrhea chronic, intermittent Constipation denies Mucositis denies Fatigue denies Bleeding denies Infection dneies Rash denies Numbness tingling stable Pain denies Radiation no ABN Labs WNL Alt in Tx: no Return in 2 wk Pt tolerated Velcade injection well. Pt discharged in stable condition. Velcade injection administered, pt tolerated well. Pt discharged in stable condition. documented in this encounter Plan of Treatment Upcoming Encounters Date Type Department Care Team (Late st Contact Info) Description 08/10/2023 6:00 PM EST Scheduled Telephone Pharmacy Hematology Oncology [place] [address] [place] [address] [place] [facility] Hem/Onc [facility] [address] [place] [address] 08/11/2023 9:00 AM EST Hem/Onc Treatment Hematology Oncology [facility], [place] [address] [place] [address] H, Infusion Chair [address] [place] [address] 08/11/2023 10:30 AM EST Appointment Radiology, [place] [address] [place] [phone] 08/11/2023 12:00 PM EST Office Visit Vascular [facility] Advanced Medicine, [place] [address] [place] [address] Robin Burleson MD [address] [place] [address] 08/15/2023 11:00 AM EST Laboratory Laboratory, [address] [phone] [address] 08/16/2023 9:30 AM EST Office Visit Hematology/Oncology [facility] 200 [facility] [place] [address] Luann De La Cruz MD 200 [facility] [place] [address] 08/16/2023 10:00 AM EST Hem/Onc Treatment Hematology/Oncology Treatment, [place] [address] [place] [address] Park, Chair 3 Hem Onc [facility] [address] [place], [place] [address] 08/23/2023 3:30 PM EST Office Visit Cardiology, [facility] [address] [place] [address] Brian Hager MD [address] [place] [address] 08/29/2023 11:00 AM EST Laboratory Laboratory, [place] [address] [place] [phone] [place], Laboratory [address] [place] [address] 08/30/2023 9:00 AM EST Pharmacy Pharmacy Hematology Oncology [facility] [address] [place] [address] [facility], [facility] Hem/Onc [address] [place] [address] 08/30/2023 11:30 AM EST Hem[facility] 200 [facility] [place] [address] Tresa, Chair 7 Hem Onc [address] [place] [address] 09/12/2023 10:30 AM EST Laboratory Laboratory, [place] [address] [place] [address] [facility] [address] [place] [address] 09/13/2023 10:15 AM EST Hem/Onc Treatment Hematology/Oncology [address] [place] [address] Tresa, Chair 3 Hem Onc [address], [place] [address] 09/26/2023 10:30 AM EST Laboratory Laboratory, [place] [address] [facility] [place] [address] [place], Laboratory [address] [place] [address] 09/27/2023 10:00 AM EST Office Visit Hematology/Oncology [facility] [address] [place] [address] Luann De La Cruz MD [address] [place] [address] 09/27/2023 10:30 AM EST Hem/Onc Treatment Hematology/Oncology Treatment, [place] [address] [facility] [address] [place] [address] Tresa, Chair 11 Hem Onc [facility] 200 [facility] [place] [address] 10/20/2023 10:30 AM EST Office Visit Cardiology, [facility] [address] [place] [address] Leda Myers PA-C [address] [place] [address] 10/30/2023 10:50 AM EST Office Visit Ophthalmology, [facility] [address] [place] [address] Kana Frost, DO [address] [place] [address] 01/12/2024 10:10 AM EDT Office Visit [address] [address] [place] [address] [place] [address] Scheduled Procedures Name Priority Associated Diagnoses Date/Ti [...] Additional history exists CKD PHOS USE SMARTSET 86640 2024 02/13/2023, 0 02/11/2021 CKD HGB USE SMARTSET 21364 07/18/202407/18, 07/18/2023, 07/04/2023, Additional history exists O2 ASSESSMENT COMPLETED IN PAST YEAR FOR COPD 07/19/2024 07/19/2023 LUNG CANCER SCREENING - USE SMARTSET 96335 Completed 03/14/2022, 06/03/2020, 05/27/2020, Additional history exists [...] myeloma, without mention of having achieved remission documented in this encounter Administered Medications Inactive Administered Medications - up to 3 most recent administrations Medication Order MAR Action Action Date Dose Rate Site bortezomib (Velcade) 2.5 MG/ML subQ inj 2.5 mg 2.5 mg (rounded from 2.431 mg = 1.3 mg/m2 1.87 m2 Treatment Plan BSA from Recorded weight), Subcutaneous, ONCE, On Mon07/05/23 at 1215, For 1 dose, Caution chemotherapy: Handle with gloves Given 07/05/2023 10:47 AM EDT 2.5 mg Abdomen Left Upper documented in this encounter Care Teams Schedule Analyst Relationship Specialty Start Date End Date Savanah Geiger DO [address] [facility] [place] [address] PCP - General Family Medicine 04/11/12 documented as of this encounter
--- OUTSIDE RECORDS SUMMARY | 2023-08-22 17:24 | External Medical Summary | Summary of Care ---
Author Name Unknown Organization [facility] Address [address] [place] [address] Phone [phone] Care Team Providers Care Cleaning Staff Supervisor Name Role Phone Griffinreed Savanah Oswaldo JIMÉNEZ Primary Care Provider [phone] Encounter Details Date Type Department Care Team (Late st Contact Info) Description 08/07/2023 Orders Only Hematology/Oncology, [address] [phone] Luann De La Cruz MD [address] [place] [address] Allergies Active Allergy Reactions Criticality Noted Date Comments Calcium Carb-Cholecalciferol 016 documented as of this encounter (statuses as of 08/07/2023) Medications Medication Sig Dispensed Refills Start Date [...] MG Sublingual Tablet Sublingual (Nitrostat)Indicati ons:Atherosclerosis of red cliff coronary artery of red cliff heart without angina pectoris One tablet under [...] Pain, Moderate. 30 Tablet 0 07/24/2023 Active Lenalidomide 10 MG Oral Capsule (Revlimid)Indicatio ns:Multiple myeloma not having achieved remission (HCC) TAKE 1 CAPSULE BY MOUTH 1 TIME A DAY FOR 14 DAYS ON THEN 7 DAYS OFF 14 Capsule 0 07/25/2023 Active Pantoprazole Sodium 20 MG Oral Tablet Delayed Release (Protonix) Take 1 Tablet by mouth in the morning. 30 minutes before the first meal of the day. Do not crush, split or chew the tablet. 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 Atherosclerosis of coronary artery without angina pectoris 09/14/2018 03/29/2022 ST elevation myocardial infarction (STEMI) 03/20/2017 12/06/2018 Lung nodule 10/14/2015 03/29/2022 ST elevation myocardial infa rction (STEMI) involving other coronary artery 05/19/2015 03/20/[address] elevation [place] (STEMI) 01/12/201508/26 Myocardial infarction 02/03/20142017 COPD, moderate 08/27/2013 08/06/2020 Overview: Per COPD GOLD Classification Noncompliance 03/13/2013 03/21/2017 Anemia 05/03/2012 03/29/2022 COPD, severity to be determined 04/16/2012 08/27/2013 Dyslipidemia, goal LDL below 70 04/16/2012 03/29/2022 documented as of this encounter (statuses as of 08/07/2023) Immunizations Name Administration Dates Next Due COVID-19 mRNA, LNP-s, No Pre serve, 2-Dose Series (Stretch) 08/28/2021,02/18/2021,01/28/2021 Pneumococcal Conjugate Vacc, 13 Valent (Prevnar) [...] PM EST Scheduled Telephone Pharmacy Hematology Oncology [facility], [place] [address] [place] [address] [facility] [address] [place] [address] 08/11/2023 9:00 AM EST Hem/Onc Treatment Hematology Oncology [facility], [address] [address] H, Infusion Chair [facility] [place] [address] 08/11/2023 10:30 AM EST Appointment Radiology, [address] [phone] 08/11/2023 12:00 PM EST Office Visit Vascular Surg [facility], [place] [address] [place] [address] Robin Burleson MD [address] [place] [address] 08/15/2023 11:00 AM EST Laboratory Laboratory, [address] [phone] [address] 08/16/2023 9:30 AM EST Office Visit Hematology/Oncology [place] [facility] [place]re[place] [address] [place] [address] Luann De La Cruz MD [address] [place] [address] 08/16/2023 10:00 AM EST Hem/Onc Treatment Hematology/Oncology Treatment, [place] 200 [facility], [place] [address] Tresa, Chair [address] [facility] [address] [facility] [place] [address] 08/23/2023 3:30 PM EST Office Visit Cardiology, [facility] [address] [place] [address] Brian Hager MD [address] [place] [address] 08/29/2023 11:00 AM EST Laboratory Laboratory, [place] [address] [place] [facility] [place] [phone] [place], [facility] [address] [place] [address] 08/30/2023 9:00 AM EST Pharmacy Pharmacy Hematology Oncology [place] [address] [place] [address] [facility], [facility] Hem/Onc [facility] [place] [address] 08/30/2023 11:30 AM EST Hem/Onc Treatment Hematology/Oncology Treatment, [place] [address] [facility], [place] [address] Tresa, Chair 7 Hem Onc Scenery [address] [facility] [place] [address] 09/12/2023 10:30 AM EST Laboratory Laboratory, [place] [address] [place] [facility] [place] [phone] [facility] [address] [place] [facility] [place] [address] 09/13/2023 10:15 AM EST Hem/Onc Treatment Hematology/Oncology Treatment, [place] [facility] [address] Tresa, Chair 3 Hem Onc Scenery [address] [place], [place] [address] 09/26/2023 10:30 AM EST Laboratory Laboratory, [place] [address] [place] [facility] [place] [phone] [facility] [address] [place] [facility] [place] [address] 09/27/2023 10:00 AM EST Office Visit Hematology/Oncology [facility] [place] [address] [place] [address] Luann De La Cruz MD [address] [place], [place] [address] 09/27/2023 10:30 AM EST Hem/Onc Treatment Hematology/Oncology Treatment, [place] [address] [place], [place] [address] Tresa, Chair 11 Hem Onc Scenery [address] [place], [place] [address] 10/20/2023 10:30 AM EST Office Visit Cardiology, [facility] 132 [place] [address] Leda Myers, JUANITA [address] [place] [address] 10/30/2023 10:50 AM EST Office Visit Ophthalmology, [facility] [address] [facility] [place] [address] Kana Frost, DO [address] [place] [address] 01/12/2024 10:10 AM EDT Office Visit [facility], [place] [address] [facility], [place] [phone] Savanah Geiger, DO [address] [place] [address] Scheduled Procedures Name Priority Associated Diagnoses Date/Ti [...] 2022- season) 2023 08/28/2021, 02/18/2021, 01/28/2021 GFR 01/17/2024 07/18/2023, 06/25, 06/20/2023, Additional history exists CKD PHOS USE SMARTSET 91604 2024 02/13/2023, 0 02/11/2021 CKD HGB USE SMARTSET 94877 07/18/202407/18, 07/18/2023, 07/04/2023, Additional history exists O2 ASSESSMENT COMPLETED IN PAST YEAR FOR COPD 07/19/2024 07/19/2023 LUNG CANCER SCREENING - USE SMARTSET 28149 Completed 03/14/2022, 06/03/2020, 05/27/2020, Additional history exists [...] filedocumented as of this encounter Care Teams Cleaning Staff Supervisor Relationship Specialty Start Date End Date Savanah Geiger DO [address] [place] [address] PCP - General Family Medicine 04/11/12 documented as of this encounter
--- OUTSIDE RECORDS SUMMARY | 2023-08-22 17:24 | External Medical Summary | Summary of Care ---
Author Name Unknown Organization [facility] Address [address] [place] [address] Phone [phone] Care Team Providers Care Corporate Legal Intern Name Role Phone GriffinreedSavanah DO Primary Care Provider [phone] Reason for Visit * Reason Onset Date Comments Appointment 08/10/2023 Treatment (Cindy Tresa PT) Encounter Details Date Type Department Care Team (Late st Contact Info) Description 08/10/2023 Telephone Hematology Oncology [facility], [place] [address] [place] [address] Services, Scheduling [address] [place] [address] Appointment (Treatment (Cindy Tresa PT)) Allergies Active [...] MG Sublingual Tablet Sublingual (Nitrostat)Indicati ons:Atherosclerosis of [place] coronary artery of [place] heart without angina pectoris One tablet under [...] cancer 04/24/2020 Coronary artery disease invo lving black[place] heart without angina pectoris 05/22/2019 Old myocardial [...] coronary artery 05/19/2015 03/20/[address] elevation [place] (STEMI) 01/12/201508/26 Myocardial infarction 02/03/20142017 COPD, moderate 08/27/2013 08/06/2020 Overview: Per COPD GOLD Classification Noncompliance 03/13/2013 03/21/2017 Anemia 05/03/2012 03/29/2022 COPD, severity to be determined 04/16/2012 08/27/2013 Dyslipidemia, goal LDL below 70 04/16/2012 03/29/2022 documented as of this encounter (statuses as of 08/11/2023) Immunizations Name Administration Dates Next Due COVID-19 mRNA, LNP-s, No Pre serve, 2-Dose Series ([place]) 08/28/2021,02/18/2021,01/28/2021 Pneumococcal Conjugate Vacc, 13 Valent (Prevnar) [...] encounter Miscellaneous Notes * Telephone Encounter - Susan Menendez PA-C - 08/11/2023 9:02 AM EST Thank you for letting me know. We will be rescheduling the patient's vascular appointment along with hydration for his CT. PARs, Can we please help facilitate this? Thanks! * Telephone Encounter - Sarahy Mcallister RN - 08/11/2023 8:53 AM EST Patient was cancelling hydration at [facility] related to CT scan. Both of these [...] a patient of Dr. Johnson at our [facility] office but this treatment he was scheduled to have a Knapper. Please give Val a call back at [phone] to reschedule. Thank you! documented in this encounter Plan of Treatment Upcoming Encounters Date Type Department Care Team (Late st Contact Info) Description 08/14/2023 6:30 PM EST Scheduled Telephone Pharmacy Hematology Oncology [facility], [place] [address] [facility] [address] [facility] Hem/Onc Tech [address] [place] [address] 08/15/2023 11:00 AM EST Laboratory Laboratory, [place] [address] [place] [phone] [place], [facility] [address] [place] [address] 08/16/2023 9:30 AM EST Office Visit Hematology/Oncology [facility] [address] [place] [address] Luann De La Cruz MD 200 [facility] [place] [address] 08/16/2023 10:00 AM EST Hem/Onc Treatment Hematology/Oncology Treatment, [place] [address] [place] [address] Tresa, Chair 3 Hem Onc [facility] [address] [place] [address] 08/23/2023 3:30 PM EST Office Visit Cardiology, [facility] 132 [facility] [place] [address] Brian Hager MD 132 [facility] [place] [address] 08/29/2023 11:00 AM EST Laboratory Laboratory, [place] [address] [place] [address] [facility] [address] [place] [address] 08/30/2023 9:00 AM EST Pharmacy Pharmacy Hematology Oncology [place] [address] [place] [address] [facility], [facility] Hem/Onc [facility] [place] [address] 08/30/2023 11:30 AM EST Hem/Onc Treatment Hematology/Oncology Treatment, [place] 200 [facility], [place] [address] Tresa, Chair 7 Hem Onc Scenery [address] [place], [place] [address] 09/12/2023 10:30 AM EST Laboratory Laboratory, [place] [address] [facility] [place] [phone] [facility] [address] [facility] [place] [address] 09/13/2023 10:15 AM EST Hem[facility] 200 [facility], [place] [address] Tresa, Chair 3 Hem Onc Scenery 200 [facility] [place], [place] [address] 09/26/2023 10:30 AM EST Laboratory Laboratory, [place] [address] [facility] [place] [address] [facility] [address] [place] [address] 09/27/2023 10:00 AM EST Office Visit Hematology/Oncology [facility] Tresa [place] [address] [place], [place] [address] Luann De La Cruz MD [address] [place], [place] [address] 09/27/2023 10:30 AM EST Hem/Onc Treatment Hematology/Oncology Treatment, [place] 200 [facility], [place] [address] Tresa, Chair 11 Hem Onc Scenery [address] [place], [place] [address] 10/20/2023 10:30 AM EST Office Visit Cardiology, [facility] 132 [place] [address] Leda Myers, [place]Kiera 132 [facility] [address] 10/30/2023 10:50 AM EST Office Visit Ophthalmology, [facility] [address] [place] [address] Kana Frost, DO [address] [place] [address] 01/12/2024 10:10 AM EDT Office Visit Family [address] [phone] Savanah Geiger, [address] [place], [place] [address] Scheduled Procedures Name Priority Associated Diagnoses Date/Ti [...] Screening 07/30/2021 07/30/2020, 07/12/2017 (Declined) COVID-19 Vaccine (2022- season) 2023 08/28/2021, 02/18/2021, 01/28/2021 GFR 01/17/2024 07/18/2023, 06/25, 06/20/2023, Additional history exists CKD PHOS USE SMARTSET 73770 2024 02/13/2023, 0 02/11/2021 CKD HGB USE SMARTSET 46674 07/18/202407/18, 07/18/2023, 07/04/2023, Additional history exists O2 ASSESSMENT COMPLETED IN PAST YEAR FOR COPD 07/19/2024 07/19/2023 LUNG CANCER SCREENING - USE SMARTSET 83168 Completed 03/14/2022, 06/03/2020, 05/27/2020, Additional history exists [...] filedocumented as of this encounter Care Teams Corporate Legal Intern Relationship Specialty Start Date End Date Savanah Geiger DO [address] [place] [address] PCP - General Family Medicine 04/11/12 documented as of this encounter
--- OUTSIDE RECORDS SUMMARY | 2023-08-22 17:24 | External Medical Summary | Summary of Care ---
Author Name Unknown Organization [facility] Address [address] [place] [address] Phone [phone] Care Team Providers Care Technical Training Coordinator Name Role Phone GriffinreedSavanah DO Primary Care Provider [phone] Reason for Visit * Reason Onset Date Comments Appointment 08/10/2023 Treatment (Cindy Tresa PT) Encounter Details Date Type Department Care Team (Late st Contact Info) Description 08/10/2023 Telephone Hematology Oncology [facility], [place] [address] [place] [address] Services, Scheduling [address] [place] [address] Appointment (Treatment (Cindy Tresa PT)) Allergies Active [...] MG Sublingual Tablet Sublingual (Nitrostat)Indicati ons:Atherosclerosis of [place] coronary artery of [place] heart without angina pectoris One tablet under [...] cancer 04/24/2020 Coronary artery disease invo lving [place] heart without angina pectoris 05/22/2019 Old myocardial [...] coronary artery 05/19/2015 03/20/[address] elevation [place] (STEMI) 01/12/201508/26 Myocardial infarction 02/03/20142017 COPD, moderate 08/27/2013 08/06/2020 Overview: Per COPD GOLD Classification Noncompliance 03/13/2013 03/21/2017 Anemia 05/03/2012 03/29/2022 COPD, severity to be determined 04/16/2012 08/27/2013 Dyslipidemia, goal LDL below 70 04/16/2012 03/29/2022 documented as of this encounter (statuses as of 08/11/2023) Immunizations Name Administration Dates Next Due COVID-19 mRNA, LNP-s, No Pre serve, 2-Dose Series ([email or web address]) 08/28/2021,02/18/2021,01/28/2021 Pneumococcal Conjugate Vacc, 13 Valent (Prevnar) [...] AM EST Patient was cancelling [facility] related to CT scan. Both of these [...] a patient of Dr. Johnson at our [facility] office but this treatment he was scheduled to have a Knapper. Please give Val a call back at [phone] to reschedule. Thank you! documented in this encounter Plan of Treatment Upcoming Encounters Date Type Department Care Team (Late st Contact Info) Description 08/14/2023 6:30 PM EST Scheduled Telephone Pharmacy Hematology Oncology [facility], [place] [address] [facility] [place] [address] [facility] Hem/Onc Tech [address] [place] [address] 08/15/2023 11:00 AM EST Laboratory Laboratory, [place] [address] [place] [phone] [place], [facility] [address] [place] [address] 08/16/2023 9:30 AM EST Office Visit Hematology/Oncology [facility] [address] [place] [address] Luann De La Cruz MD 200 [place] [address] 08/16/2023 10:00 AM EST Hem/Onc Treatment Hematology/Oncology Treatment, [place] [address] [place] [address] Tresa, Chair 3 Hem Onc [facility] [address] [place] [address] 08/23/2023 3:30 PM EST Office Visit Cardiology, [facility] 132 [facility] [place] [address] Brian Hager MD 132 [facility] [place] [address] 08/29/2023 11:00 AM EST Laboratory Laboratory, [place] [address] [place] [phone] [facility] [address] [place] [address] 08/30/2023 9:00 AM EST Pharmacy Pharmacy Hematology Oncology [place] [address] [place] [address] [facility] Hem/Onc [facility] [place] [address] 08/30/2023 11:30 AM EST Hem/Onc Treatment Hematology/Oncology Treatment, [place] 200 [facility], [place] [address] Tresa, Chair 7 Hem Onc Scenery [address] [place], [place] [address] 09/12/2023 10:30 AM EST Laboratory Laboratory, [place] [address] [facility] [place] [address] [facility] [address] [place] [facility] [place] [address] 09/13/2023 10:15 AM EST Hem[facility] 200 [facility], [place] [address] Tresa, Chair 3 Hem Onc Scenery 200 [facility] [place], [place] [address] 09/26/2023 10:30 AM EST Laboratory Laboratory, [place] [address] [facility] [place] [address] [facility] [address] [place] [address] 09/27/2023 10:00 AM EST Office Visit Hematology/Oncology [facility] Tresa [place] [address] [place], [place] [address] Luann De La Cruz MD [address] [place], [place] [address] 09/27/2023 10:30 AM EST Hem/Onc Treatment Hematology/Oncology Treatment, [place] 200 [facility], [place] [address] Tresa, Chair 11 Hem Onc Scenery [address] [place], [place] [address] 10/20/2023 10:30 AM EST Office Visit Cardiology, [facility] [address] [place] [address] Leda Myers, [place] 132 [facility] [address] 10/30/2023 10:50 AM EST Office Visit Ophthalmology, [facility] [address] [place] [address] Kana Frost, DO [address] [place] [address] 01/12/2024 10:10 AM EDT Office Visit Family [address] [phone] Savanah Geiger, [address] [place], [place] [address] Scheduled Procedures Name Priority Associated Diagnoses Date/Ti [...] Additional history exists CKD PHOS USE SMARTSET 39733 2024 02/13/2023, 0 02/11/2021 CKD HGB USE SMARTSET 11860 07/18/202407/18, 07/18/2023, 07/04/2023, Additional history exists O2 ASSESSMENT COMPLETED IN PAST YEAR FOR COPD 07/19/2024 07/19/2023 LUNG CANCER SCREENING - USE SMARTSET 85379 Completed 03/14/2022, 06/03/2020, 05/27/2020, Additional history exists [...] filedocumented as of this encounter Care Teams Technical Training Coordinator Relationship Specialty Start Date End Date Savanah Geiger DO [address] [place] [address] PCP - General Family Medicine 04/11/12 documented as of this encounter
--- OUTSIDE RECORDS SUMMARY | 2023-08-22 17:24 | External Medical Summary | Summary of Care ---
Author Name Unknown Organization [facility] Address [address] [place] [address] Phone [phone] Care Team Providers Care Information Technology Associate Name Role Phone MarcelinajaskaranSavanah DO Primary Care Provider Reason for Visit * Reason Onset Date Comments Medication Refill 08/10/2023 Encounter Details Date Type Department Care Team (Latest Contact Info) Description 08/10/2023 6:00 PM EST Scheduled Telephone Pharmacy Hematology Oncology [facility], [place] [address] [place] [address] [facility] Hem/Onc [facility] [address], [place] [id number] Multiple myeloma, remission status unspecified ([facility])* Allergies Active Allergy Reactions Criticality Noted Date Comments Calcium Carb-Cholecalciferol 016 documented as of this encounter (statuses as of 08/10/2023) Medications Medication Sig Dispensed Refills Start Date [...] MG Sublingual Tablet Sublingual (Nitrostat)Indicati ons:Atherosclerosis of [place] coronary artery of [place] heart without angina pectoris One tablet under [...] as of this encounter (statuses as of 08/10/2023) Active Problems Problem Noted Date Diagnosed Date [...] cancer 04/24/2020 Coronary artery disease invo lving 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 Atherosclerosis of coronary artery without angina pectoris 09/14/2018 03/29/2022 ST elevation myocardial infarction (STEMI) 03/20/2017 12/06/2018 Lung nodule 10/14/2015 03/29/2022 ST elevation myocardial infa rction (STEMI) involving other coronary artery 05/19/2015 03/20/[address] elevation [place] (STEMI) 01/12/201508/26 Myocardial infarction 02/03/20142017 COPD, moderate 08/27/2013 08/06/2020 Overview: Per COPD GOLD Classification Noncompliance 03/13/2013 03/21/2017 Anemia 05/03/2012 03/29/2022 COPD, severity to be determined 04/16/2012 08/27/2013 Dyslipidemia, goal LDL below 70 04/16/2012 03/29/2022 documented as of this encounter (statuses as of 08/10/2023) Immunizations Name Administration Dates Next Due COVID-19 mRNA, LNP-s, No Pre serve, 2-Dose Series ([employer]) 08/28/2021,02/18/2021,01/28/2021 Pneumococcal Conjugate Vacc, 13 Valent (Prevnar) [...] encounter Miscellaneous Notes * Telephone Encounter - Fernanda Hernandez PHARM Tech - 08/10/2023 12:01 PM EST Please see separate refill encounter. SANJAY Shipley [facility] 08/10/23,12:04 PM Time Spent on Encounter: 6 - 10 minutes Encounter Group: Hematology Encounter Interventions Item Category: Oral Chemotherapy Lenalidomide documented in this encounter Plan of Treatment Upcoming Encounters Date Type Department Care Team (Late st Contact Info) Description 08/11/2023 9:00 AM EST Hem/Onc Treatment Hematology Oncology [facility], [place] [address] [place] [address] H, Infusion Chair [address] [place] [address] 08/11/2023 10:30 AM EST Appointment Radiology, [place] [address] [place] [address] 08/11/2023 12:00 PM EST Office Visit Vascular Surg [facility], [place] [address] [place] [address] Robin Burleson MD [address] [place] [address] 08/14/2023 6:30 PM EST Scheduled Telephone Pharmacy Hematology Oncology [facility] [address] [place] [address] [place] [facility] Hem/Onc Tech [address] [place] [address] 08/15/2023 11:00 AM EST Laboratory Laboratory, [place] [address] [place] [phone] [facility] [address] [place] [address] 08/16/2023 9:30 AM EST Office Visit Hematology/Oncology [facility] [address] [place] [address] Luann De La Cruz MD 200 [facility] [place] [address] 08/16/2023 10:00 AM EST Hem/Onc Treatment Hematology/Oncology [address], [place] [address] Tresa, Chair 3 Hem Onc [facility] 200 [facility] [place] [address] 08/23/2023 3:30 PM EST Office Visit Cardiology, [facility] [address] [place] [address] Brian Hager MD 132 [place] [address] 08/29/2023 11:00 AM EST Laboratory Laboratory, [place] [address] [place] [facility] [place] [phone] [place] [facility] [address] [place] [address] 08/30/2023 9:00 AM EST Pharmacy Pharmacy Hematology Oncology [facility] [address] [place] [address] [facility], [facility] Hem/Onc [address] [place] [address] 08/30/2023 11:30 AM EST [facility] [address] Tresa, Chair 7 Hem Onc Scenery 200 [facility] [place], [place] [address] 09/12/2023 10:30 AM EST Laboratory Laboratory, [place] [address] [facility], [place] [phone] [facility] Laboratory [address] [facility], [place] [address] 09/13/2023 10:15 AM EST Hem[facility]Onc [facility] 200 [facility], [place] [address] Tresa, Chair 3 Hem Onc Scenery 200 [facility] [place] [address] 09/26/2023 10:30 AM EST Laboratory Laboratory, [place] [address] [facility], [place] [phone] [facility] Laboratory [address] [facility], [place] [address] 09/27/2023 10:00 AM EST Office Visit Hematology/Oncology [facility] [address] [place], [place] [address] Luann De La Cruz MD [address] [place] [address] 09/27/2023 10:30 AM EST Hem[facility]Onc [facility] 200 [facility], [place] [address] Tresa, Chair 11 Hem Onc Scenery [address] [place], [place] [address] 10/20/2023 10:30 AM EST Office Visit Cardiology, [facility] [place] [phone] Leda Myers PA-C [address] [place] [address] 10/30/2023 10:50 AM EST Office Visit Ophthalmology, [facility] [address] [place] [address] Kana Frost, DO [address] [place] [address] 01/12/2024 10:10 AM EDT [facility] [address] [place] [phone] Savanah Geiger, DO [address], [place] [phone] Scheduled Procedures Name Priority Associated Diagnoses Date/Ti [...] Additional history exists CKD PHOS USE SMARTSET 59002 2024 02/13/2023, 0 02/11/2021 CKD HGB USE SMARTSET 65747 07/18/202407/18, 07/18/2023, 07/04/2023, Additional history exists O2 ASSESSMENT COMPLETED IN PAST YEAR FOR COPD 07/19/2024 07/19/2023 LUNG CANCER SCREENING - USE SMARTSET 95978 Completed 03/14/2022, 06/03/2020, 05/27/2020, Additional history exists [...] Primary documented in this encounter Care Teams Information Technology Associate Relationship Specialty Start Date End Date Savanah Geiger DO [address] [place] [address] PCP - General Family Medicine 04/11/12 documented as of this encounter
--- OUTSIDE RECORDS SUMMARY | 2023-08-22 17:24 | External Medical Summary | Summary of Care ---
Author Name Unknown Organization [facility] Address [address] [place] [address] Phone [phone] Care Team Providers Care Multiple Knife Edge Trimmer Operator Name Role Phone Griffinreed Savanah Oswaldo JIMÉNEZ Primary Care Provider Encounter Details Date Type Department Care Team (Late st Contact Info) Description 08/07/2023 Orders Only Hematology/Oncology, [address] [phone] Luann De La Cruz MD [address] [place] [address] Allergies Active Allergy Reactions Criticality Noted Date Comments Calcium Carb-Cholecalciferol 016 documented as of this encounter (statuses as of 08/09/2023) Medications Medication Sig Dispensed Refills Start Date [...] MG Sublingual Tablet Sublingual (Nitrostat)Indicati ons:Atherosclerosis of [place] coronary artery of [place] heart without angina pectoris One tablet under [...] as of this encounter (statuses as of 08/09/2023) Active Problems Problem Noted Date Diagnosed Date [...] cancer 04/24/2020 Coronary artery disease invo lving [place] heart without angina pectoris 05/22/2019 Old myocardial infarct 12/06/2018 S/p bare metal coronary artery stent 01/12/2015 Tobacco use disorder 04/16/2012 HTN, goal below 130/80 2012 GERD (gastroesophageal reflux disease) 2 documented as of this encounter (statuses as of 08/09/2023) Resolved Problems Problem Noted Date Diagnosed Date Resolved Date Dehydration 02/01/2021 03/29/2022 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 Atherosclerosis of coronary artery without angina pectoris 09/14/2018 03/29/2022 ST elevation myocardial infarction (STEMI) 03/20/2017 12/06/2018 Lung nodule 10/14/2015 03/29/2022 ST elevation myocardial infa rction (STEMI) involving other coronary artery 05/19/2015 03/20/[address] elevation [place] (STEMI) 01/12/201508/26 Myocardial infarction 02/03/20142017 COPD, moderate 08/27/2013 08/06/2020 Overview: Per COPD GOLD Classification Noncompliance 03/13/2013 03/21/2017 Anemia 05/03/2012 03/29/2022 COPD, severity to be determined 04/16/2012 08/27/2013 Dyslipidemia, goal LDL below 70 04/16/2012 03/29/2022 documented as of this encounter (statuses as of 08/09/2023) Immunizations Name Administration Dates Next Due COVID-19 mRNA, LNP-s, No Pre serve, 2-Dose Series ([employer]) 08/28/2021,02/18/2021,01/28/2021 Pneumococcal Conjugate Vacc, 13 Valent (Prevnar) [...] PM EST Scheduled Telephone Pharmacy Hematology Oncology [facility], [place] [address] [place] [address] [facility] [address] [place] [address] 08/11/2023 9:00 AM EST Hem/Onc Treatment Hematology Oncology [facility], [address] [address] H, Infusion Chair [facility] [place] [address] 08/11/2023 10:30 AM EST Appointment Radiology, [address] [phone] 08/11/2023 12:00 PM EST Office Visit Vascular Surg [facility], [place] [address] [place] [address] Robin Burleson MD [address] [place] [address] 08/15/2023 11:00 AM EST Laboratory Laboratory, [address] [phone] [address] 08/16/2023 9:30 AM EST Office Visit Hematology/Oncology [facility] [address] [place] [address] Luann De La Cruz MD [address] [place] [address] 08/16/2023 10:00 AM EST Hem/Onc Treatment Hematology/Oncology Treatment, [place] 200 [facility], [place] [address] Tresa, Chair 3 Hem Onc [facility] 200 [facility] [place] [address] 08/23/2023 3:30 PM EST Office Visit Cardiology, [facility] [address] [place] [address] Brian Hager MD [address] [place] [address] 08/29/2023 11:00 AM EST Laboratory Laboratory, [place] [address] [place] [phone] [place], [facility] [address] [place] [address] 08/30/2023 9:00 AM EST Pharmacy Pharmacy Hematology Oncology [place] [address] [place] [address] [facility], [facility] Hem/Onc [facility] [place] [address] 08/30/2023 11:30 AM EST Hem/Onc Treatment Hematology/Oncology Treatment, [place] 200 [facility], [place] [address] Tresa, Chair 7 Hem Onc Scenery 200 [facility] [place] [address] 09/12/2023 10:30 AM EST Laboratory Laboratory, [place] [address] [place] [phone] [facility] [address] [place] [address] 09/13/2023 10:15 AM EST Hem/Onc Treatment Hematology/Oncology Treatment, [place] 200 [facility] [address] Tresa, Chair 3 Hem Onc Scenery [address] [place], [place] [address] 09/26/2023 10:30 AM EST Laboratory Laboratory, [place] [address] [place] [facility] [place] [phone] [facility] [address] [place] [place] [address] 09/27/2023 10:00 AM EST Office Visit Hematology/Oncology [facility] [place] [address] [place] [address] Luann De La Cruz MD [address] [place], [place] [address] 09/27/2023 10:30 AM EST Hem/Onc Treatment Hematology/Oncology Treatment, [place] [address] [place], [place] [address] Tresa, Chair 11 Hem Onc Scenery [address] [place], [place] [address] 10/20/2023 10:30 AM EST Office Visit Cardiology, [facility] 132 [place] [address] Leda Myers, JUANITA 132 [place] [address] 10/30/2023 10:50 AM EST Office Visit Ophthalmology, [facility] 132 [facility] [place] [address] Kana Frost, DO [address] [place] [address] 01/12/2024 10:10 AM EDT Office Visit [facility], [place] [address] [facility], [place] [phone] Savanah Geiger, DO [address] [place] [address] Scheduled Procedures Name Priority Associated Diagnoses Date/Ti [...] Additional history exists CKD PHOS USE SMARTSET 43512 2024 02/13/2023, 0 02/11/2021 CKD HGB USE SMARTSET 65935 07/18/202407/18, 07/18/2023, 07/04/2023, Additional history exists O2 ASSESSMENT COMPLETED IN PAST YEAR FOR COPD 07/19/2024 07/19/2023 LUNG CANCER SCREENING - USE SMARTSET 58593 Completed 03/14/2022, 06/03/2020, 05/27/2020, Additional history exists [...] filedocumented as of this encounter Care Teams Multiple Knife Edge Trimmer Operator Relationship Specialty Start Date End Date Savanah Geiger DO [address] [place] [address] PCP - General Family Medicine 04/11/12 documented as of this encounter
--- OUTSIDE RECORDS SUMMARY | 2023-08-22 17:24 | External Medical Summary | Summary of Care ---
Author Name Unknown Organization [facility] Address [address] [place] [address] Phone [phone] Care Team Providers Care Anode Crew Supervisor Name Role Phone GriffinreedSavanah DO Primary Care Provider + [phone] Reason for Visit * Reason Onset Date Comments No Show 08/02/2023 Encounter Details Date Type Department Care Team (Late st Contact Info) Description 08/02/2023 Telephone Hematology/Oncology Treatment, [place] [address] [place] [phone] Luann De La Cruz MD [address] [place] [address] No Show Allergies Active Allergy Reactions Criticality Noted Date [...] MG Sublingual Tablet Sublingual (Nitrostat)Indicati ons:Atherosclerosis of [place] coronary artery of [place] heart without angina pectoris One tablet under [...] cancer 04/24/2020 Coronary artery disease invo lving [place] heart without angina pectoris 05/22/2019 Old myocardial [...] coronary artery 05/19/2015 03/20/[address] elevation [place] (STEMI) 01/12/201508/26 Myocardial infarction 02/03/20142017 COPD, moderate 08/27/2013 08/06/2020 Overview: Per COPD GOLD Classification Noncompliance 03/13/2013 03/21/2017 Anemia 05/03/2012 03/29/2022 COPD, severity to be determined 04/16/2012 08/27/2013 Dyslipidemia, goal LDL below 70 04/16/2012 03/29/2022 documented as of this encounter (statuses as of 08/07/2023) Immunizations Name Administration Dates Next Due COVID-19 mRNA, LNP-s, No Pre serve, 2-Dose Series ([employer]) 08/28/2021,02/18/2021,01/28/2021 Pneumococcal Conjugate Vacc, 13 Valent (Prevnar) [...] as of this encounter Miscellaneous Notes * Addendum Note - Kortney Mcallister RN - 08/07/2023 7:59 AM ESTAddended by: KORTNEY MCALLISTER on: 08/07/2023 07:59 AM Modules accepted: Orders * Telephone Encounter - Kortney Mcallister RN - 08/07/2023 7:59 AM EST Wy[place]x adjusted per patient preference. * Telephone Encounter - Simin Green OSA - 08/04/2023 2:05 PM EST Nursing: Called patient, informed him that he missed labs/treatment and he said he "totally forgot"he was working on his Jeep. He said he would like to "skip this one and just do the next one". I told him I would check with nursing to make sure that would be ok. If its not, he wants to do the nexttwo back to back (next week and the one already scheduled)- I also told him I would check with nursing because I'm not sure if that's ok either. Please advise. Thanks! * Telephone Encounter - Simin Green OSA - 08/02/2023 1:39 PM EST Called patient, no answer. Mailbox unavailable, unable to leave message. * Telephone Encounter - Evonne Lnudberg RN - 08/02/2023 1:21 PM EST Patient did not show today for schedule Velcade injection and he did not get his labs done yesterday at [facility] for treatment today either. Patient is to come Q2 weekly for Velcade with labs the day prior. Patient prefers to stay on Monday for his Velcade and Tuesdays for labs. Patient has an appt scheduled for 08/15 labs at [facility] and Velcade on 08/16, along with a f/u with Dr. De La Cruz. Scheduling: Please reach out to patient to see if he could return tomorrow 08/03 for Velcade injection and have labs done either today or tomorrow before the injection if possible, or what his preference would be since he did not show today. If patient cannot come tomorrow, please schedule as soon as patient is able. NS: Wysox would need adjusted accordingly, depending on outcome. documented in this encounter Plan of Treatment Upcoming Encounters Date Type Department Care Team (Late st Contact Info) Description 08/10/2023 6:00 PM EST Scheduled Telephone Pharmacy Hematology Oncology [facility], [place] [address] [place] [address] [place] [facility] Hem/Onc Tech [address] [place] [address] 08/11/2023 9:00 AM EST Hem/Onc Treatment Hematology Oncology [facility], [place] [address] [place] [address] H, Infusion Chair [address] [place] [address] 08/11/2023 10:30 AM EST Appointment Radiology, [place] [address] [place] [phone] 08/11/2023 12:00 PM EST Office Visit Vascular Surg [facility], [place] [address] [place] [address] Robin Burleson MD [address] [place] [address] 08/15/2023 11:00 AM EST Laboratory Laboratory, [facility] [address] [place] [phone] [facility] [address] [place] [address] 08/16/2023 9:30 AM EST Office Visit Hematology/Oncology [facility] Tresa [place] [address] [place] [address] Luann De La Cruz MD [address] [place] [address] 08/16/2023 10:00 AM EST Hem[facility]Onc [facility] [address] [place] [address] Tresa, Chair 3 Hem Onc [facility] 200 [facility] [place] [address] 08/23/2023 3:30 PM EST Office Visit Cardiology, [facility] [address] [place] [address] Brian Hager MD [address] [place] [address] 08/29/2023 11:00 AM EST Laboratory Laboratory, [facility] [address] [place] [phone] [facility] [address] [place] [address] 08/30/2023 9:00 AM EST Pharmacy Pharmacy Hematology Oncology [place] [address] [place] [address] [place] Hem/Onc [facility] [place] [place] [address] 08/30/2023 11:30 AM EST Hem/Onc Treatment Hematology/Oncology Treatment, [place] 200 [facility], [place] [address] Tresa, Chair 7 Hem Onc Scenery [address] [place], [place] [address] 09/12/2023 10:30 AM EST Laboratory Laboratory, [facility] [address] [facility] [place] [address] [facility], Laboratory [address] [place] [facility] [place] [address] 09/13/2023 10:15 AM EST Hem/Onc Treatment [facility] 200 [facility], [place] [address] Tresa, Chair 3 Hem Onc Scenery [address] [place] [address] 09/26/2023 10:30 AM EST Laboratory Laboratory, [facility] [address] [facility] [place] [phone] [facility] Laboratory [address] [facility], [place] [phone] 09/27/2023 10:00 AM EST Office Visit Hematology/Oncology [facility] [place] [address] [place] [address] Luann De La Cruz MD [address] [place], [place] [address] 09/27/2023 10:30 AM EST Hem/Onc Treatment [facility] 200 [facility], [place] [address] Tresa, Chair 11 Hem Onc Scenery [address] [place], [place] [address] 10/20/2023 10:30 AM EST Office Visit Cardiology, [facility] 132 [facility] [place] [address] Leda Myers, JUANITA [address] [place] [address] 10/30/2023 10:50 AM EST Office Visit Ophthalmology, [facility] [address] [place] [address] Kana Frost, DO [address] [place] [address] 01/12/2024 10:10 AM EDT Office Visit Family [facility], [facility] [address] [place] [phone] Savanah Geiger, DO [address] [place] [address] Scheduled Procedures Name Priority Associated Diagnoses Date/Ti [...] Additional history exists CKD PHOS USE SMARTSET 74158 2024 02/13/2023, 0 02/11/2021 CKD HGB USE SMARTSET 66360 07/18/202407/18, 07/18/2023, 07/04/2023, Additional history exists O2 ASSESSMENT COMPLETED IN PAST YEAR FOR COPD 07/19/2024 07/19/2023 LUNG CANCER SCREENING - USE SMARTSET 01383 Completed 03/14/2022, 06/03/2020, 05/27/2020, Additional history exists [...] filedocumented as of this encounter Care Teams Anode Crew Supervisor Relationship Specialty Start Date End Date Savanah Geiger DO [address] [place] [address] PCP - General Family Medicine 04/11/12 documented as of this encounter
--- OUTSIDE RECORDS SUMMARY | 2023-08-22 17:25 | External Medical Summary | Summary of Care ---
Author Name Unknown Organization [facility] Address [address] [place] [address] Phone [phone] Care Team Providers Care Dials Inspector Name Role Phone Caseypiero Savanah Oswaldo JIMÉNEZ Primary Care Provider + [phone] Reason for Visit * Reason Comments eRx-Medication Refill Encounter Details Date Type Department Care Team (Late st Contact Info) Description 07/20/2023 Refill Hematology/Oncology Treatment, [place] [address] [place] [phone] Luann De La Cruz MD [address] [place] [address] Multiple myeloma not having achieved remission (HCC) Allergies Active Allergy Reactions Criticality Noted Date Comments Calcium Carb-Cholecalciferol 016 documented as of this encounter (statuses as of 07/25/2023) Medications Medication Sig Dispensed Refills Start Date [...] MG Sublingual Tablet Sublingual (Nitrostat)Indicati ons:Atherosclerosis of [place] coronary artery of [place] heart without angina pectoris One tablet under [...] A DAY 180 Tablet 3 05/03/2023 Active Lenalidomide 10 MG Oral Capsule (Revlimid)Indicatio ns:Multiple myeloma not having achieved remission (HCC) TAKE 1 CAPSULE BY MOUTH 1 TIME A DAY FOR 14 DAYS ON THEN 7 DAYS OFF 14 Capsule 0 07/06/2023 Active traMADol HCl 50 MG Oral Tablet (Ultram)Indications :Multiple myeloma, remission status unspecified (HCC) Take 1 Tablet by mouth every 6 hours as needed for Pain, Moderate. 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 Atherosclerosis of coronary artery without angina pectoris 09/14/2018 03/29/2022 ST elevation myocardial infarction (STEMI) 03/20/2017 12/06/2018 Lung nodule 10/14/2015 03/29/2022 ST elevation myocardial infa rction (STEMI) involving other coronary artery 05/19/2015 03/20/20 ST elevation [place] (STEMI) 01/12/201508/26 Myocardial infarction 02/03/20142017 COPD, moderate 08/27/2013 08/06/2020 Overview: Per COPD GOLD Classification Noncompliance 03/13/2013 03/21/2017 Anemia 05/03/2012 03/29/2022 COPD, severity to be determined 04/16/2012 08/27/2013 Dyslipidemia, goal LDL below 70 04/16/2012 03/29/2022 documented as of this encounter (statuses as of 07/25/2023) Immunizations Name Administration Dates Next Due COVID-19 mRNA, LNP-s, No Pre serve, 2-Dose Series (Pfizer) 08/28/2021,02/18/2021,01/28/2021 Pneumococcal Conjugate Vacc, 13 Valent (Prevnar) [...] encounter Miscellaneous Notes * Telephone Encounter - Interface, E-Rx Ss Inbound - 07/24/2023 7:16 PM EDT Pending Prescriptions: Disp Refills Lenalidomide 10 MG Oral Capsule (Revlimid)* 0 Sig: TAKE 1 CAPSULE BY MOUTH 1 TIME A DAY FOR 14 DAYS ON THEN 7 DAYS OFF documented in this encounter Plan of Treatment Upcoming Encounters Date Type Department Care Team (Late st Contact Info) Description 07/28/2023 6:30 PM EDT Scheduled Telephone Pharmacy Hematology Oncology [address] [address] [facility] Hem/Onc [address] [address] 08/01/2023 11:00 AM EST Laboratory Laboratory, [address] [address] [address] 08/02/2023 9:00 AM EST Pharmacy Pharmacy Hematology Oncology [address] [address] [facility] Hem/Onc [address] [place] [address] 08/02/2023 11:30 AM EST Hem/Onc Treatment Hematology/Oncology Treatment, [place] [address] [place] [address] Tresa, Chair 5 Hem Onc Scene [address] [place] [address] 08/11/2023 9:00 AM EST Hem/Onc Treatment Hematology Oncology [facility], [place] [address] [place] [address] H, Infusion Chair [address] [place] [address] 08/11/2023 10:30 AM EST Appointment Radiology, [place] [address] [place] [phone] 08/11/2023 12:00 PM EST Office Visit Vascular [facility], [place] [address] [place] [address] Robin Burleson MD [address] [place] [address] 08/15/2023 11:00 AM EST Laboratory Laboratory, [address] [address] [address] [address] 08/16/2023 9:30 AM EST Office Visit Hematology/Oncology [facility] 200 [facility] [place] [address] Luann De La Cruz MD 200 [facility] [place] [address] 08/16/2023 10:00 AM EST Hem/Onc Treatment Hematology/Oncology Treatment, [place] [address] [place] [address] Park, Chair 3 Hem Onc Scene [address] [place], [place] [address] 08/23/2023 3:30 PM EST Office Visit Cardiology, [facility] [address] [address] Brian Hager MD [address] [place] [place] [address] 08/29/2023 11:00 AM EST Laboratory Laboratory, [place] [address] [place] [facility] [place] [phone] [place], [facility] [address] [place] [address] 08/30/2023 11:30 AM EST [facility] 200 [facility], [place] [address] Tresa, Chair 7 Hem Onc Scenery 200 [facility] [place] [address] 09/12/2023 10:30 AM EST Laboratory Laboratory, [place] [address] [place] [facility] [place] [address] [facility] [address] [place] [address] 09/13/2023 10:15 AM EST Hem[facility] 200 [facility], [place] [address] Tresa, Chair 3 Hem Onc Scenery 200 [facility] [place], [place] [address] 09/26/2023 10:30 AM EST Laboratory Laboratory, [place] [address] [place] [facility] [place] [address] [facility] [address] [place] [address] 09/27/2023 10:00 AM EST Office Visit Hematology/Oncology [facility] [place] [address] [place] [address] Luann De La Cruz MD [address] [place] [address] 09/27/2023 10:30 AM EST Hem/Onc Treatment Hematology/Oncology Treatment, [place] [address] [place] [address] Park, Chair 11 Hem Onc Scenery [address] [place] [address] 10/20/2023 10:30 AM EST Office Visit Cardiology, [facility] [place] [address] Leda Myers PA-C 132 [place] [address] 10/30/2023 10:50 AM EST Office Visit Ophthalmology, [facility] 132 [facility] [place] [address] Kana Frost, DO [address] [place] [address] 01/12/2024 10:10 AM EDT Office Visit [facility] [address] [place] [address] Savanah Geiger, [address] [place], [place] [phone] Scheduled Procedures Name Priority Associated Diagnoses Date/Ti [...] Additional history exists CKD PHOS USE SMARTSET 55449 2024 02/13/2023, 0 02/11/2021 CKD HGB USE SMARTSET 85252 07/18/202407/18, 07/18/2023, 07/04/2023, Additional history exists O2 ASSESSMENT COMPLETED IN PAST YEAR FOR COPD 07/19/2024 07/19/2023 LUNG CANCER SCREENING - USE SMARTSET 34631 Completed 03/14/2022, 06/03/2020, 05/27/2020, Additional history exists [...] having achieved remission documented in this encounter Care Teams Dials Inspector Relationship Specialty Start Date End Date Savanah Geiger DO [address] [place] [address] PCP - General Family Medicine 04/11/12 documented as of this encounter
--- OUTSIDE RECORDS SUMMARY | 2023-08-22 17:25 | External Medical Summary | Summary of Care ---
Author Name Unknown Organization [facility] Address [address] [place] [address] Phone [phone] Care Team Providers Care Etched Circuit Processor Name Role Phone Owen Geiger DO Primary Care Provider [phone] Reason for Visit * Reason Comments eRx-Medication Refill Encounter Details Date Type Department Care Team (Late st Contact Info) Description 07/20/2023 Refill [facility] [address] [place] [address] Owen Geiger [address] [place] [address] Multiple myeloma, remission status unspecified (HCC) Allergies Active Allergy Reactions Criticality Noted Date Comments Calcium Carb-Cholecalciferol 016 documented as of this encounter (statuses as of 07/24/2023) Medications Medication Sig Dispensed Refills Start Date [...] 07/10/2023 Prochlorperazine Maleate 10 MG Oral Tablet (Compazine)Indic [...] Sublingual Tablet Sublingual (Nitrostat)Indic ations:Atheroscl erosis of [place] coronary artery of [place] heart without angina pectoris One tablet under [...] 05/03/2023 Active Lenalidomide 10 MG Oral Capsule (Revlimid)Indica tions:Multiple myeloma not having achieved remission (HCC) TAKE 1 CAPSULE BY MOUTH 1 TIME A DAY FOR 14 DAYS ON THEN 7 DAYS OFF 14 Capsule 0 07/06/2023 Active traMADol HCl 50 MG Oral Tablet (Ultram)Indicati ons:Multiple myeloma, remission status unspecified (HCC) Take 1 Tablet by mouth every 6 hours as needed for Pain, Moderate. 30 Tablet 0 07/24/2023 Active traMADol HCl 50 MG Oral Tablet (Ultram)Indicati ons:Multiple myeloma, remission status unspecified (HCC) TAKE 1 TABLET BY MOUTH EVERY 6 HOURS NEEDED FOR MODERATE PAIN 30 Tablet 0 06/05/2023 3 Discontinued documented as of this encounter (statuses as of 07/24/2023) Active Problems Problem Noted Date Diagnosed Date [...] cancer 04/24/2020 Coronary artery disease invo lving [place] heart without angina pectoris 05/22/2019 Old myocardial infarct 12/06/2018 S/p bare metal coronary artery stent 01/12/2015 Tobacco use disorder 04/16/2012 HTN, goal below 130/80 2012 GERD (gastroesophageal reflux disease) 2 documented as of this encounter (statuses as of 07/24/2023) Resolved Problems Problem Noted Date Diagnosed Date [...] as of this encounter (statuses as of 07/24/2023) Immunizations Name Administration Dates Next Due COVID-19 mRNA, LNP-s, No Pre serve, 2-Dose Series ([employer]) 08/28/2021,02/18/2021,01/28/2021 Pneumococcal Conjugate Vacc, 13 Valent (Prevnar) [...] encounter Miscellaneous Notes * Telephone Encounter - Owen Geiger DO - 07/24/2023 1:42 PM EDTSigned Prescriptions: Disp Refills traMADol HCl 50 MG Oral Tablet (Ultram) 30 Tab*0 Sig: Take 1 Tablet by mouth every 6 hours as needed for Pain, Moderate. Authorizing Provider: OWEN GEIGER * Telephone Encounter - Interface, E-Rx Ss Inbound - 07/24/2023 12:39 PM EDT Pending Prescriptions: Disp Refills traMADol HCl 50 MG Oral Tablet (Ultram) 30 Tab*0 Sig: Take 1 Tablet by mouth every 6 hours as needed for Pain, Moderate. * Telephone Encounter - Bisi Guerra, [facility] - 07/21/2023 6:06 AM EDT Pending Prescriptions: Disp Refills traMADol HCl 50 MG Oral Tablet (Ultram) 30 Tab*0 Sig: Take 1 Tablet by mouth every 6 hours as needed for Pain, Moderate. * Telephone Encounter - Bisi Guerra RPh - 07/21/2023 6:06 AM EDT I have reviewed the patients controlled substance dispensing history in the Prescription Drug Monitoring Program in compliance with the [facility] regulations before prescribing a controlled substance. PDMP checked on 07/21/2023. Pending Prescriptions: Disp Refills traMADol HCl 50 MG Oral Tablet (Ultram) [*30 Tab*0 Sig: Take 1 Tablet by mouth every 6 hours as needed for Pain, Moderate. Last Visit: 07/10/2023 (in office), 06/13/2022 (telemedicine) Next Visit: 01/12/2024 Date medication was last filled: 06/05 Date medication is due for refill: 06/12 Pharmacy: [id number] [facility] Is this request for a controlled substance? Yes and Urine Drug Screen Not completed Toxicology results: No results found. However, due to the size of the patient record, not all encounters were searched.Please check Results Review for a complete set of results. Please approve if appropriate. Thank you, Bisi Guerra, PharmD. Clinical Pharmacist [facility] Services (CCPS) (formerly Telepharmacy) 07/21/2023, 6:06 AM documented in this encounter Plan of Treatment Upcoming Encounters Date Type Department Care Team (Late st Contact Info) Description 08/01/2023 11:00 AM EST Laboratory Laboratory, [place] [address] [place] [phone] [place], Laboratory [address] [place], [place] [phone] 08/02/2023 9:00 AM EST Pharmacy Pharmacy Hematology Oncology apper [facility], [place] [address] [place] [address] [facility], [facility] Hem/Onc [address] [place] [address] 08/02/2023 11:30 AM EST Hem/Onc Treatment Hematology/Oncology Treatment [place] [address] [place] [address] Park, Chair 5 Hem Onc Scenery [address] [place] [address] 08/11/2023 9:00 AM EST Hem/Onc Treatment Hematology Oncology [facility], [place] [address] [place] [address] H, Infusion Chair [facility] [place] [address] 08/11/2023 10:30 AM EST Appointment Radiology, [address] [phone] 08/11/2023 12:00 PM EST Office Visit Vascular [facility], [address] [address] Robin Burleson MD [address] [place] [address] 08/15/2023 11:00 AM EST Laboratory Laboratory, [address] [address] [place] [address] [place] [address] 08/16/2023 9:30 AM EST Office Visit Hematology/Oncology [facility] Tresa [place] [address] [place] [address] Luann De La Cruz MD [address] [place] [address] 08/16/2023 10:00 AM EST Hem/Onc Treatment Hematology/Oncology Treatment, [place] 200 [facility], [place] [address] Tresa, Chair 3 Hem Onc [facility] 200 [facility] [place] [address] 08/18/2023 6:00 PM EST Scheduled Telephone Pharmacy Hematology Oncology [facility], [place] [address] [place] [address] [facility] Hem/Onc [facility] [address] [place] [address] 08/23/2023 3:30 PM EST Office Visit Cardiology, [facility] [place] [address] Brian Hager MD 132 [place] [address] 08/29/2023 11:00 AM EST Laboratory Laboratory, [place] [address] [place] [address] [facility] [address] [place] [address] 08/30/2023 11:30 AM EST Hem[facility]Onc [facility] [address] Tresa, Chair 7 Hem On[facility] 200 [facility] [place] [address] 09/12/2023 10:30 AM EST Laboratory Laboratory, [place] [address] [place] [address] [place], [facility] [address] [place] [address] 09/13/2023 10:15 AM EST Hem/Onc Treatment Hematology/Oncology Treatment, [place] 200 [facility], [place] [address] Tresa, Chair 3 Hem Onc Scene 200 [facility] [place], [place] [address] 09/26/2023 10:30 AM EST Laboratory Laboratory, [place] [address] [place] [phone] [facility] [address] [place] [facility] [place] [address] 09/27/2023 10:00 AM EST Office Visit Hematology/Oncology [facility] [place] [address] [place] [address] Luann De La Cruz MD [address] [place] [address] 09/27/2023 10:30 AM EST Hem/Onc Treatment Hematology/Oncology Treatment, [place] 200 [facility], [place] [address] Tresa, Chair 11 Hem Onc Scenery 200 [facility] [place], [place] [address] 10/20/2023 10:30 AM EST Office Visit Cardiology, [facility] 132 [facility] [place] [address] Leda Myers, PAKiera 132 [facility] [place] [address] 10/30/2023 10:50 AM EST Office Visit Ophthalmology, [facility] 132 [facility] [place] [address] Kana Frost, DO [address] [place] [address] 01/12/2024 10:10 AM EDT Office Visit [facility], [place] [address] [facility] [place] [address] Owen Geiger, DO [address] [place] [address] Scheduled Procedures Name Priority Associated Diagnoses Date/Ti [...] Additional history exists CKD PHOS USE SMARTSET 73486 2024 02/13/2023, 0 02/11/2021 CKD HGB USE SMARTSET 64309 07/18/202407/18, 07/18/2023, 07/04/2023, Additional history exists O2 ASSESSMENT COMPLETED IN PAST YEAR FOR COPD 07/19/2024 07/19/2023 LUNG CANCER SCREENING - USE SMARTSET 51302 Completed 03/14/2022, 06/03/2020, 05/27/2020, Additional history exists [...] (HCC) documented in this encounter Care Teams Etched Circuit Processor Relationship Specialty Start Date End Date Owen Geiger DO [address] [facility] [place] [address] PCP - General Family Medicine 04/11/12 documented as of this encounter
--- OUTSIDE RECORDS SUMMARY | 2023-08-22 17:25 | External Medical Summary | Summary of Care ---
Author Name Unknown Organization [facility] Address [address] [place] [address] Phone [phone] Care Team Providers Care Word Processing Specialist Name Role Phone GriffinreedSavanah DO Primary Care Provider + [phone] Reason for Visit * Reason Onset Date Comments No Show 08/02/2023 Encounter Details Date Type Department Care Team (Late st Contact Info) Description 08/02/2023 Telephone Hematology/Oncology Treatment, [place] [address] [place] [phone] Luann De La Cruz MD [address] [place] [address] No Show Allergies Active Allergy Reactions Criticality Noted Date Comments Calcium Carb-Cholecalciferol 016 documented as of this encounter (statuses as of 08/02/2023) Medications Medication Sig Dispensed Refills Start Date [...] MG Sublingual Tablet Sublingual (Nitrostat)Indicati ons:Atherosclerosis of [place] coronary artery of [place] heart without angina pectoris One tablet under [...] as of this encounter (statuses as of 08/02/2023) Active Problems Problem Noted Date Diagnosed Date [...] cancer 04/24/2020 Coronary artery disease invo lving [place] heart without angina pectoris 05/22/2019 Old myocardial infarct 12/06/2018 S/p bare metal coronary artery stent 01/12/2015 Tobacco use disorder 04/16/2012 HTN, goal below 130/80 2012 GERD (gastroesophageal reflux disease) 2 documented as of this encounter (statuses as of 08/02/2023) Resolved Problems Problem Noted Date Diagnosed Date [...] as of this encounter (statuses as of 08/02/2023) Immunizations Name Administration Dates Next Due COVID-19 mRNA, LNP-s, No Pre serve, 2-Dose Series ([employer]) 08/28/2021,02/18/2021,01/28/2021 Pneumococcal Conjugate Vacc, 13 Valent (Prevnar) [...] encounter Miscellaneous Notes * Telephone Encounter - Simin Green OSA - 08/02/2023 1:39 PM EST Called patient, no answer. Mailbox unavailable, unable to leave message. * Telephone Encounter - Evonne Lundberg RN - 08/02/2023 1:21 PM EST Patient did not show today for schedule Velcade injection and he did not get his labs done yesterday at [facility] for treatment today either. Patient is to come Q2 weekly for Velcade with labs the day prior. Patient prefers to stay on Monday for his Velcade and Tuesdays for labs. Patient has an appt scheduled for 08/15 labs at [facility] and Velcade on 08/16, along with a [...] as soon as patient is able. NS: [place] would need adjusted accordingly, depending on outcome. documented in this encounter Plan of Treatment Upcoming Encounters Date Type Department Care Team (Late st Contact Info) Description 08/10/2023 6:00 PM EST Scheduled Telephone Pharmacy Hematology Oncology [facility] [address] [place] [address] [facility] Hem/Onc Tech [address] [place] [address] 08/11/2023 9:00 AM EST Hem/Onc Treatment Hematology Oncology [facility], [place] [address] [place] [address] H, Infusion Chair [address] [place] [address] 08/11/2023 10:30 AM EST Appointment Radiology, [place] [address] [place] [address] 08/11/2023 12:00 PM EST Office Visit Vascular [facility], [place] [address] [place] [address] Robin Burleson MD [address] [place] [address] 08/15/2023 11:00 AM EST Laboratory Laboratory, [address] [phone] [address] [address] 08/16/2023 9:30 AM EST Office Visit Hematology/Oncology [facility] [address] [place] [address] Luann De La Cruz MD 200 [place] [address] 08/16/2023 10:00 AM EST Hem/Onc Treatment Hematology/Oncology Treatment, [place] [address] [place] [address] Park, Chair 3 Hem Onc [facility] [address] [place] [address] 08/23/2023 3:30 PM EST Office Visit Cardiology, [facility] [address] [place] [address] Brian Hager MD [address] [place] [address] 08/29/2023 11:00 AM EST Laboratory Laboratory, [place] [address] [place] [facility] [place] [address] [place], Laboratory [address] [place] [address] 08/30/2023 11:30 AM EST Hem[facility]Onc [facility] 200 [facility], [place] [address] Tresa, Chair 7 Hem Onc Scenery 200 [facility] [place] [address] 09/12/2023 10:30 AM EST Laboratory Laboratory, [place] [address] [place] [facility] [place] [address] [place], Laboratory [address] [place] [address] 09/13/2023 10:15 AM EST Hem[facility]Onc Treatment [facility] 200 [facility], [place] [address] Tresa, Chair 3 Hem Onc Scenery 200 [facility] [place] [address] 09/26/2023 10:30 AM EST Laboratory Laboratory, [place] [address] [facility], [place] [phone] [place], Laboratory [address] [place] [address] 09/27/2023 10:00 AM EST Office Visit Hematology/Oncology [facility] Tresa [place] [address] [place] [address] Luann De La Cruz MD [address] [place] [address] 09/27/2023 10:30 AM EST Hem/Onc Treatment [facility] [address] Tresa, Chair 11 Hem Onc Scenery [address] [place] [address] 10/20/2023 10:30 AM EST Office Visit Cardiology, [facility] 132 [place] [address] Leda Myers, JUANITA 132 [facility] [place] [address] 10/30/2023 10:50 AM EST Office Visit Ophthalmology, [facility] [address] [place] [address] Kana Frost, DO [address] [place] [address] 01/12/2024 10:10 AM EDT Office Visit [facility] [address] [place] [phone] Savanah Geiger, [address] [place] [address] Scheduled Procedures Name Priority Associated Diagnoses Date/Ti [...] Additional history exists CKD PHOS USE SMARTSET 02417 2024 02/13/2023, 0 02/11/2021 CKD HGB USE SMARTSET 68958 07/18/202407/18, 07/18/2023, 07/04/2023, Additional history exists O2 ASSESSMENT COMPLETED IN PAST YEAR FOR COPD 07/19/2024 07/19/2023 LUNG CANCER SCREENING - USE SMARTSET 51024 Completed 03/14/2022, 06/03/2020, 05/27/2020, Additional history exists [...] filedocumented as of this encounter Care Teams Word Processing Specialist Relationship Specialty Start Date End Date Savanah Geiger DO [address] [place] [address] PCP - General Family Medicine 04/11/12 documented as of this encounter
--- OUTSIDE RECORDS SUMMARY | 2023-08-22 17:25 | External Medical Summary | Summary of Care ---
Author Name Unknown Organization [facility] Address [address] [place] [address] Phone [phone] Care Team Providers Care Explosive Man Name Role Phone GriffinreedSavanah DO Primary Care Provider [phone] Encounter Details Date Type Department Care Team (Late st Contact Info) Description 07/20/2023 Telephone Hematology/Oncology [facility] [place] [address] [place], [place] [phone] Services, Scheduling [address] [place] [address] Allergies Active Allergy Reactions Criticality Noted Date Comments Calcium Carb-Cholecalciferol 016 documented as of this encounter (statuses as of 07/20/2023) Medications Medication Sig Dispensed Refills Start Date [...] MG Sublingual Tablet Sublingual (Nitrostat)Indicati ons:Atherosclerosis of [place] coronary artery of [place] heart without angina pectoris One tablet under [...] (Ultram)Indications :Multiple myeloma, remission status unspecified (HCC) TAKE 1 TABLET BY MOUTH EVERY 6 HOURS NEEDED FOR MODERATE PAIN 30 Tablet 0 06/05/2023 Active Lenalidomide 10 MG Oral Capsule (Revlimid)Indicatio ns:Multiple myeloma not having achieved remission (HCC) TAKE 1 CAPSULE BY MOUTH 1 TIME A DAY FOR 14 DAYS ON THEN 7 DAYS OFF 14 Capsule 0 07/06/2023 Active documented as of this encounter (statuses as of 07/20/2023) Active Problems Problem Noted Date Diagnosed Date [...] cancer 04/24/2020 Coronary artery disease invo lving [place] heart without angina pectoris 05/22/2019 Old myocardial infarct 12/06/2018 S/p bare metal coronary artery stent 01/12/2015 Tobacco use disorder 04/16/2012 HTN, goal below 130/80 2012 GERD (gastroesophageal reflux disease) 2 documented as of this encounter (statuses as of 07/20/2023) Resolved Problems Problem Noted Date Diagnosed Date Resolved Date Dehydration 02/01/2021 03/29/2022 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 Atherosclerosis of coronary artery without angina pectoris 09/14/2018 03/29/2022 ST elevation myocardial infarction (STEMI) 03/20/2017 12/06/2018 Lung nodule 10/14/2015 03/29/2022 ST elevation myocardial infa rction (STEMI) involving other coronary artery 05/19/2015 03/20/20 ST elevation IA (STEMI) 01/12/201508/26 Myocardial infarction 02/03/20142017 COPD, moderate 08/27/2013 08/06/2020 Overview: Per COPD GOLD Classification Noncompliance 03/13/2013 03/21/2017 Anemia 05/03/2012 03/29/2022 COPD, severity to be determined 04/16/2012 08/27/2013 Dyslipidemia, goal LDL below 70 04/16/2012 03/29/2022 documented as of this encounter (statuses as of 07/20/2023) Immunizations Name Administration Dates Next Due COVID-19 [...] encounter Miscellaneous Notes * Telephone Encounter - JSOE Womack - 07/20/2023 9:47 AM EDT Brian called and would like to speak with a nurse in regards to needing a new medication callander Please call him back thank you documented in this encounter Plan of Treatment Upcoming Encounters Date Type Department Care Team (Late st Contact Info) Description 07/21/2023 6:00 PM EDT Scheduled Telephone Pharmacy Hematology Oncology [facility], [address] [address] [facility] Hem/Onc Tech [facility] [place] [address] 08/01/2023 11:00 AM EST Laboratory Laboratory, [address] [phone] [address] 08/02/2023 9:00 AM EST Pharmacy Pharmacy Hematology Oncology [facility], [address] [address] [facility] Hem/Onc [address] [place] [address] 08/02/2023 11:30 AM EST Hem/Onc Treatment Hematology/Oncology Treatment, [place] [address] [place] [address] Tresa, Chair 5 Hem Onc Scenery [address] [place] [address] 08/11/2023 9:00 AM EST Hem/Onc Treatment Hematology Oncology [address] [address] H, Infusion Chair [address] [place] [address] 08/11/2023 10:30 AM EST Appointment Radiology, [address] [phone] 08/11/2023 12:00 PM EST Office Visit Vascular [facility], [place] [address] [place] [address] Robin Burleson MD [address] [place] [address] 08/15/2023 11:00 AM EST Laboratory Laboratory, [place] [address] [place] [phone] [facility] [address] [place] [address] 08/16/2023 9:30 AM EST Office Visit Hematology/Oncology [facility] 200 [place] [address] Luann De La Cruz MD 200 [place] [address] 08/16/2023 10:00 AM EST Hem[facility]c [facility] 200 [place] [address] Tresa, Chair 3 Hem On[address] [place] [address] 08/23/2023 3:30 PM EST Office Visit Cardiology, [facility] [address] [place] [address] Brian Hager MD 132 [facility] [place] [address] 08/29/2023 11:00 AM EST Laboratory Laboratory, [place] [address] [place] [phone] [facility] [address] [place] [address] 08/30/2023 11:30 AM EST Hem/Onc Treatment Hematology/Oncology Treatment, [place] 200 [place] [address] Tresa, Chair 7 Hem Onc Scenery [address] [place] [address] 10/20/2023 10:30 AM EST Office Visit Cardiology, [facility] [address] [place] [address] Leda Myers, PAKiera 132 [place] [address] 10/30/2023 10:50 AM EST Office Visit Ophthalmology, [facility] 132 [place] [address] Kana Frost, DO [address] [place] [address] 01/12/2024 10:10 AM EDT Office Visit [facility] [address] [place] [phone] Savanah Geiger, [address] [place] [address] Scheduled Procedures Name Priority Associated Diagnoses Date/Ti [...] Additional history exists CKD PHOS USE SMARTSET 37783 2024 02/13/2023, 0 02/11/2021 CKD HGB USE SMARTSET 80466 07/18/202407/18, 07/18/2023, 07/04/2023, Additional history exists O2 ASSESSMENT COMPLETED IN PAST YEAR FOR COPD 07/19/2024 07/19/2023 LUNG CANCER SCREENING - USE SMARTSET 35299 Completed 03/14/2022, 06/03/2020, 05/27/2020, Additional history exists [...] filedocumented as of this encounter Care Teams Explosive Man Relationship Specialty Start Date End Date Savanah Geiger DO [address] [place] [address] PCP - General Family Medicine 04/11/12 documented as of this encounter
--- OUTSIDE RECORDS SUMMARY | 2023-08-22 17:25 | External Medical Summary | Summary of Care ---
Author Name Unknown Organization [facility] Address [address] [place] [address] Phone [phone] Care Team Providers Care Accounting Professor Name Role Phone CaseySavanah harry Oswaldo JIMÉNEZ Primary Care Provider Encounter Details Date Type Department Care Team (Late st Contact Info) Description 07/30/2023 Orders Only Hematology/Oncology [facility] [place] 200 [place] [address] Luann De La Cruz MD 200 [place] [address] Allergies Active Allergy Reactions Criticality Noted Date Comments Calcium Carb-Cholecalciferol 016 documented as of this encounter (statuses as of 07/30/2023) Medications Medication Sig Dispensed Refills Start Date [...] MG Sublingual Tablet Sublingual (Nitrostat)Indicati ons:Atherosclerosis of [place] coronary artery of [place] heart without angina pectoris One tablet under [...] DAYS OFF 14 Capsule 0 07/25/2023 Active documented as of this encounter (statuses as of 07/30/2023) Active Problems Problem Noted Date Diagnosed Date [...] cancer 04/24/2020 Coronary artery disease invo lving king salmon heart without angina pectoris 05/22/2019 Old myocardial infarct 12/06/2018 S/p bare metal coronary artery stent 01/12/2015 Tobacco use disorder 04/16/2012 HTN, goal below 130/80 2012 GERD (gastroesophageal reflux disease) 2 documented as of this encounter (statuses as of 07/30/2023) Resolved Problems Problem Noted Date Diagnosed Date Resolved Date Dehydration 02/01/2021 03/29/2022 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 Atherosclerosis of coronary artery without angina pectoris 09/14/2018 03/29/2022 ST elevation myocardial infarction (STEMI) 03/20/2017 12/06/2018 Lung nodule 10/14/2015 03/29/2022 ST elevation myocardial infa rction (STEMI) involving other coronary artery 05/19/2015 03/20/20 ST elevation [place] (STEMI) 01/12/201508/26 Myocardial infarction 02/03/20142017 COPD, moderate 08/27/2013 08/06/2020 Overview: Per COPD GOLD Classification Noncompliance 03/13/2013 03/21/2017 Anemia 05/03/2012 03/29/2022 COPD, severity to be determined 04/16/2012 08/27/2013 Dyslipidemia, goal LDL below 70 04/16/2012 03/29/2022 documented as of this encounter (statuses as of 07/30/2023) Immunizations Name Administration Dates Next Due COVID-19 [...] Description 08/01/2023 11:00 AM EST Laboratory Laboratory, [place] [address] [place] [phone] [place], Laboratory [address] [place] [address] 08/02/2023 9:00 AM EST Pharmacy Pharmacy Hematology Oncology [facility], [place] [address] [place] [address] [facility] Hem/Onc [address] [place] [address] 08/02/2023 11:30 AM EST Hem/Onc Treatment Hematology/Oncology Treatment, [place] [address] [place] [address] Tresa, Chair 8 Hem Onc Scenery [address] [place] [address] 08/10/2023 6:00 PM EST Scheduled Telephone Pharmacy Hematology Oncology [facility], [place] [address] [place] [address] [facility] Hem/Onc Tech [address] [place] [address] 08/11/2023 9:00 AM EST Hem/Onc Treatment Hematology Oncology [facility], [place] [address] [place] [address] H, Infusion Chair [address] [place] [address] 08/11/2023 10:30 AM EST Appointment Radiology, [address] [phone] 08/11/2023 12:00 PM EST Office Visit Vascular [facility], [place] [address] [place] [address] Robin Burleson MD [address] [place] [address] 08/15/2023 11:00 AM EST Laboratory Laboratory, [place] [address] [place] [address] [place] [facility] [address] [place] [address] 08/16/2023 9:30 AM EST Office Visit Hematology/Oncology [facility] [address] [place] [address] Luann De La Cruz MD [address] [place] [address] 08/16/2023 10:00 AM EST Hem[facility]Onc [facility] 200 [facility] [place] [address] Tresa, Chair 3 Hem Onc Scenery 200 [facility] [place] [address] 08/23/2023 3:30 PM EST Office Visit Cardiology, [facility] 132 [facility] [place] [address] Brian Hager MD 132 [facility] [place] [address] 08/29/2023 11:00 AM EST Laboratory Laboratory, [place] [address] [place] [address] [place] [facility] [address] [place] [address] 08/30/2023 11:30 AM EST Hem/Onc Treatment Hematology/Oncology Treatment, [address], [place] [address] Tresa, Chair 7 Hem Onc Scenery 200 [facility] [place], [place] [address] 09/12/2023 10:30 AM EST Laboratory Laboratory, [place] [address] [place] [facility] [phone] [place], Laboratory [address] [place] [facility] [address] 09/13/2023 10:15 AM EST Hem[facility]Onc Treatment [facility] 200 [facility], [place] [address] Tresa, Chair 3 Hem Onc [facility] 200 [facility] [address] 09/26/2023 10:30 AM EST [facility] [address] [place] [facility] [place] [phone] [facility] [address] [place] [facility] [place] [address] 09/27/2023 10:00 AM EST Office Visit Hematology/Oncology [facility] 200 [facility] [address] Luann De La Cruz MD [address] [place], [place] [address] 09/27/2023 10:30 AM EST Hem/Onc Treatment Hematology/Oncology [facility] 200 [facility], [place] [address] Tresa, Chair 11 Hem Onc [facility] 200 [facility] [place], [place] [address] 10/20/2023 10:30 AM EST Office Visit Cardiology, [facility] [place] [address] Leda Myers PA-C [address] [place] [address] 10/30/2023 10:50 AM EST Office Visit Ophthalmology, [facility] [place] [address] Kana Frost, DO [address] [place] [address] 01/12/2024 10:10 AM EDT Office Visit [facility] [address] [place] [phone] Savanah Geiger, DO [address] [place] [address] Scheduled Procedures Name Priority Associated Diagnoses Date/Ti [...] Additional history exists CKD PHOS USE SMARTSET 86943 2024 02/13/2023, 0 02/11/2021 CKD HGB USE SMARTSET 53701 07/18/202407/18, 07/18/2023, 07/04/2023, Additional history exists O2 ASSESSMENT COMPLETED IN PAST YEAR FOR COPD 07/19/2024 07/19/2023 LUNG CANCER SCREENING - USE SMARTSET 74249 Completed 03/14/2022, 06/03/2020, 05/27/2020, Additional history exists [...] filedocumented as of this encounter Care Teams Accounting Professor Relationship Specialty Start Date End Date Savanah Geiger DO [address] [place] [address] PCP - General Family Medicine 04/11/12 documented as of this encounter
--- OUTSIDE RECORDS SUMMARY | 2023-08-22 17:25 | External Medical Summary | Summary of Care ---
Author Name Unknown Organization [facility] Address [address] [place] [address] Phone [phone] Care Team Providers Care Hand Welt Butter Name Role Phone Caseypiero Savanah Oswaldo JIMÉNEZ Primary Care Provider [phone] Reason for Visit * Reason Onset Date Comments Medication Refill 07/25/2023 Encounter Details Date Type Department Care Team (Late st Contact Info) Description 07/25/2023 Refill Hematology/Oncology [facility] [place] 200 [place] [address] Luann North MD 200 [facility] [place] [address] Multiple myeloma, remission status unspecified (HCC)*; Multiple myeloma not having achieved remission (HCC) [...] Sublingual Tablet Sublingual (Nitrostat)Indica tions:Atheroscler osis of barrow coronary artery of barrow heart without angina pectoris One tablet under [...] 04/21/2023 Active Mirtazapine 15 MG Oral Tablet (Remeron)Indicati [...] 07/24/2023 Active Lenalidomide 10 MG Oral Capsule (Revlimid)Indicat ions:Multiple myeloma not having achieved remission (HCC) TAKE 1 CAPSULE BY MOUTH 1 TIME A DAY FOR 14 DAYS ON THEN 7 DAYS OFF 14 Capsule 0 07/25/2023 Active Lenalidomide 10 MG Oral Capsule (Revlimid)Indicat ions:Multiple myeloma not having achieved remission (HCC) TAKE 1 CAPSULE BY MOUTH 1 TIME A DAY FOR 14 DAYS ON THEN 7 DAYS OFF 14 Capsule 0 07/06/2023 3 Discontinue d(Refill) documented as of this [...] cancer 04/24/2020 Coronary artery disease invo lving barrow heart without angina pectoris 05/22/2019 Old myocardial [...] mRNA, LNP-s, No Pre serve, 2-Dose Series (Intigua) 08/28/2021,02/18/2021,01/28/2021 Pneumococcal Conjugate Vacc, 13 Valent (Prevnar) [...] encounter Miscellaneous Notes * Telephone Encounter - Jesse Beebe RPh - 07/25/2023 3:34 PM EDT Signed Prescriptions: Disp Refills Lenalidomide 10 MG Oral Capsule (Revlimid) 14 Cap*0 Sig: TAKE 1 CAPSULE BY MOUTH 1 TIME A DAY FOR 14 DAYS ON THEN 7 DAYS OFFAuthorizing Provider: LUANN NORTH User: JESSE BEEBE * Telephone Encounter - Jesse Beebe RPh - 07/25/2023 3:33 PM EDT Refill Request EPIC Note Clinical Pharmacy Service (Hematology/Oncology): Refill Request(s) PHYSICIAN ACTION: No Assessment & Plan After reviewing the parameters in order to refill the patient's medication(s), the following was determined: The medication(s), lenalidomide, was refilled and no parameters need to be addressed No communication to requesting entity necessary Refill Parameters The following parameters were assessed in order to decide whether or not this refill was appropriate: Refill Parameter Comments If the patient was seen in the last 6 months (12 months for MPN patients) Yes - 07/05/23 If the labs were completed per prescribing information recommendations or provider recommendations Yes - 07/18/23 If the labs were within normal limits or stable at baseline yes If the dose was correct and/or if the prescription sig reflects the current prescribed dose yes If there were any new drug interactions with the patient's oral chemotherapy no If there were any care gaps/baseline labs that need to be addressed no Jesse Beebe [facility] Ambulatory Clinical Pharmacist | Oral Chemotherapy Clinic [facility] 07/25/2023, 3:33 PM * Telephone Encounter - Joanna Lezama CPhT - 07/25/2023 3:05 PM EDT PHARMACY REMS MEDICATION AUTHORIZATION Brian [place] [id number] Patient Phone Numbers Communication: Spoke to: Other: Incoming call from [facility] Specialty - Law Treatment: Medication: Lenalidomide (Revlimid) Indication: multiple myeloma Dose: 10mg daily D1-14 every 21 days Administration: +/- food Start Date: 04/01/22 Primary Green End Man/Oncologist: Dr. North Cycle Dates C1 04/01 - 04/14 C2 04/22 - 05/05 C3 05/13 - 05/26 C4 06/03 - 06/16 C5 06/24 - 07/07 C6 07/15 - 07/28 C7 Delayed d/t pt preference 9 day cycle 12/21 - 12/29 C14 05/11 - 05/24 C15 06/01 - 06/14 C16 06/22 - 07/05 (anticipated) Patient managed by Hem/Onc MTD - Yes Patient had labs on 07/18 Prescriber survey complete; [employer] auth number [id number]. Upon new prescription being sent to [facility] specialty pharmacy, will follow up on [employer] website within 1-2 business days to confirm medication dispensed Joanna Lezama Access Consultant II [facility] Oral Chemotherapy Clinic 07/25/2023 3:07 PM Time Spent on Encounter: 6 - 10 minutes documented in this encounter Plan of Treatment Upcoming Encounters Date Type Department Care Team (Late st Contact Info) Description 07/28/2023 6:30 PM EDT Scheduled Telephone Pharmacy Hematology Oncology [address] [phone] [facility] Hem/Onc Tech [address] [place] [address] 08/01/2023 11:00 AM EST Laboratory Laboratory, [address] [phone] [facility] [address] [place] [address] 08/02/2023 9:00 AM EST Pharmacy Pharmacy Hematology Oncology [facility], [place] [address] [place] [address] [facility] Hem/Onc [facility] [place] [address] 08/02/2023 11:30 AM EST Hem/Onc Treatment Hematology/Oncology Treatment, [place] [address] [place] [address] Tresa, Chair 5 Hem Onc Scenery [address] [place] [address] 08/11/2023 9:00 AM EST Hem/Onc Treatment Hematology Oncology [facility], [place] [address] [place] [address] H, Infusion Chair [address] [place] [address] 08/11/2023 10:30 AM EST Appointment Radiology, [place] [address] [place] [phone] 08/11/2023 12:00 PM EST Office Visit Vascular Surg [facility], [place] [address] [place] [address] Robin Burleson MD [address] [place], [place] [phone] 08/15/2023 11:00 AM EST Laboratory Laboratory, [address] [phone] [facility] [address] [place] [address] 08/16/2023 9:30 AM EST Office Visit Hematology/Oncology [facility] [address] [place] [address] Luann North MD 200 [facility] [place], [place] [address] 08/16/2023 10:00 AM EST Hem[facility]c [facility] 200 [facility], [place] [address] Tresa, Chair 3 Hem Onc [facility] 200 [facility] [place], [place] [address] 08/23/2023 3:30 PM EST Office Visit Cardiology, [facility] [address] [facility] [place] [address] Brian Hager MD [facility] [place] [address] 08/29/2023 11:00 AM EST Laboratory Laboratory, [place] [address] [place] [phone] [facility] [address] [facility] [place] [address] 08/30/2023 11:30 AM EST Hem/Onc Treatment Hematology/Oncology Treatment, [place] 200 [facility], [place] [address] Tresa, Chair 7 Hem Onc [facility] 200 [facility] [place] [address] 09/12/2023 10:30 AM EST Laboratory Laboratory, [place] [address] [facility] [phone] [facility] [address] [place] [address] 09/13/2023 10:15 AM EST Hem[facility]Onc Treatment [facility] 200 [place] [address] Tresa, Chair 3 Hem Onc Scenery 200 [facility] [place] [address] 09/26/2023 10:30 AM EST Laboratory Laboratory, [place] [address] [place] [phone] [facility] [address] [place] [address] 09/27/2023 10:00 AM EST Office Visit Hematology/Oncology [facility] [address] [place] [address] Luann North MD 200 [facility] [place] [address] 09/27/2023 10:30 AM EST Hem[facility]Onc [facility] 200 [place] [address] Tresa, Chair 11 Hem Onc Scenery 200 [facility] [place], [place] [address] 10/20/2023 10:30 AM EST Office Visit Cardiology, [facility] 132 [place] [address] Leda Myers PA-C 132 [place] [address] 10/30/2023 10:50 AM EST Office Visit Ophthalmology, [facility] 132 [place] [address] Kana Frost T, DO 16 [place] [address] 01/12/2024 10:10 AM EDT Office Visit [facility] [address] [place] [address] Savanah Geiger DO [address] [place], [place] [phone] Scheduled Procedures Name Priority Associated Diagnoses Date/Ti me COLONOSCOPY FLEXIBLE PROXIMAL DIAGNOSTIC Recall History of colon polyps Health Maintenance Due Date Last Done Comments Albumin/Creatinine Ratio 02/13/1970 Alpha-1 Antitrypsin 02/13/1970 Hepatitis C Screening 02/13/1970 DTaP,Tdap,and Td Vaccines (1 - Tdap) 02/13/1971 Zoster Vaccines (1 of 2) 02/13/1971 DISCUSS TOBACCO CESSATION (REFER TO SMARTSET #1351) 07/12/2018 07/12/2017 (Course Completed) COLONOSCOPY-EVERY 3 YRS AGES 18-100 05/23/2020 05/23/2017 Depression Screening 07/30/2021 07/30/2020, 07/12/2017 (Declined) COVID-19 Vaccine (2022- season) 2023 08/28/2021, 02/18/2021, 01/28/2021 GFR 01/17/2024 07/18/2023, 06/25, 06/20/2023, Additional history exists CKD PHOS USE SMARTSET 69040 2024 02/13/2023, 0 02/11/2021 CKD HGB USE SMARTSET 03297 07/18/202407/18, 07/18/2023, 07/04/2023, Additional history exists O2 ASSESSMENT COMPLETED IN PAST YEAR FOR COPD 07/19/2024 07/19/2023 LUNG CANCER SCREENING - USE SMARTSET 49773 Completed 03/14/2022, 06/03/2020, 05/27/2020, Additional history exists [...] Primary documented in this encounter Care Teams Hand Welt Butter Relationship Specialty Start Date End Date Savanah Geiger DO [address] [place] [address] PCP - General Family Medicine 04/11/12 documented as of this encounter"
--- OUTSIDE RECORDS SUMMARY | 2023-08-22 17:25 | External Medical Summary | Summary of Care ---
Author Name Unknown Organization [facility] Address [address] [place] [address] Phone [phone] Care Team Providers Care Redrawer Name Role Phone Caseypiero Savanah Oswaldo JIMÉNEZ Primary Care Provider Reason for Visit * Reason Onset Date Comments Encounter Created in Error 07/25/2023 Encounter Details Date Type Department Care Team (Late st Contact Info) Description 07/25/2023 Telephone Pharmacy Hematology Oncology [place] [address] [place], [place] [phone] Luann De La Cruz MD 200 [place] [address] Encounter Created in Error Allergies Active Allergy Reactions Criticality Noted Date [...] MG Sublingual Tablet Sublingual (Nitrostat)Indicati ons:Atherosclerosis of navajo coronary artery of navajo heart without angina pectoris One tablet under [...] cancer 04/24/2020 Coronary artery disease invo lving navajo heart without angina pectoris 05/22/2019 Old myocardial [...] other coronary artery 05/19/2015 03/20/20 ST elevation PA (STEMI) 01/12/201508/26 Myocardial infarction 02/03/20142017 COPD, moderate [...] PM EDT Scheduled Telephone Pharmacy Hematology Oncology [facility], [address] [address] [facility] Hem/Onc Tech [facility] [place] [address] 08/01/2023 11:00 AM EST Laboratory Laboratory, [place] [address] [place] [phone] [facility] [address] [place] [address] 08/02/2023 9:00 AM EST Pharmacy Pharmacy Hematology Oncology [facility], [address] [address] [facility] Hem/Onc [address] [place] [address] 08/02/2023 11:30 AM EST Hem/Onc Treatment Hematology/Oncology Treatment, [place] [address] [place] [address] Tresa, Chair 5 Hem Onc [place] [address] [place] [address] 08/11/2023 9:00 AM EST Hem/Onc Treatment Hematology Oncology [facility], [address] [address] H, Infusion Chair [facility] [place] [address] 08/11/2023 10:30 AM EST Appointment Radiology, [address] [phone] 08/11/2023 12:00 PM EST Office Visit Vascular Surg [facility], [address] [address] Robin Burleson MD [address] [place] [address] 08/15/2023 11:00 AM EST Laboratory Laboratory, [place] [address] [place] [phone] [place], [facility] [address] [place] [address] 08/16/2023 9:30 AM EST Office Visit Hematology/Oncology [facility] 200 [facility] [place] [address] Luann De La Cruz MD [address] [place] [address] 08/16/2023 10:00 AM EST Hem[facility]Onc [facility] 200 [facility] [place] [address] Tresa, Chair 3 [facility] 200 [facility] [place] [address] 08/23/2023 3:30 PM EST Office Visit Cardiology, [facility] [address] Brian Hager MD 132 [facility] [address] 08/29/2023 11:00 AM EST Laboratory Laboratory, [place] [address] [place] [phone] [facility] [address] [place] [address] 08/30/2023 11:30 AM EST Hem[facility]Onc Treatment [facility] 200 [facility] [place] [address] Tresa, Chair 7 Hem Onc Scenery 200 [facility] [place] [address] 09/12/2023 10:30 AM EST Laboratory Laboratory, [place] [address] [facility] [place] [address] [facility] [address] [place] [address] 09/13/2023 10:15 AM EST Hem/Onc Treatment Hematology/Oncology [facility] 200 [facility] [address] Tresa, Chair 3 Hem Onc [facility] 200 [facility], [place] [address] 09/26/2023 10:30 AM EST Laboratory Laboratory, [place] [address] [facility] [place] [address] [facility] [address] [place] [facility] [place] [address] 09/27/2023 10:00 AM EST Office Visit Hematology/Oncology [facility] 200 [facility], [place] [address] Luann De La Cruz MD 200 [facility], [place] [address] 09/27/2023 10:30 AM EST Hem/Onc Treatment Hematology/Oncology [facility] 200 [facility], [place] [address] Tresa, Chair 11 Hem Onc [facility] 200 [facility] [place], [place] [address] 10/20/2023 10:30 AM EST Office [facility] 132 [place] [address] Leda Myers PA-C 132 [address] [place] [address] 10/30/2023 10:50 AM EST Office Visit Ophthalmology, [facility] 132 Tammi Pinedo [facility] [place] [address] Kana Frost, DO 16 [facility] [address] 01/12/2024 10:10 AM EDT Office Visit [facility] [address] [place] [phone] Savanah Geiger, DO [address] [place] [address] Scheduled Procedures Name Priority Associated Diagnoses Date/Ti [...] Additional history exists CKD PHOS USE SMARTSET 60001 2024 02/13/2023, 0 02/11/2021 CKD HGB USE SMARTSET 21544 07/18/202407/18, 07/18/2023, 07/04/2023, Additional history exists O2 ASSESSMENT COMPLETED IN PAST YEAR FOR COPD 07/19/2024 07/19/2023 LUNG CANCER SCREENING - USE SMARTSET 98678 Completed 03/14/2022, 06/03/2020, 05/27/2020, Additional history exists [...] filedocumented as of this encounter Care Teams Redrawer Relationship Specialty Start Date End Date Savanah Geiger DO [address] [place] [address] PCP - General Family Medicine 04/11/12 documented as of this encounter
--- OUTSIDE RECORDS SUMMARY | 2023-08-22 17:25 | External Medical Summary | Summary of Care ---
Author Name Unknown Organization [facility] Address [address] [place] [address] Phone [phone] Care Team Providers Care Grocery Worker Name Role Phone GriffinreedSavanah DO Primary Care Provider + [phone] Reason for Visit * Reason Onset Date Comments No Show 08/02/2023 Encounter Details Date Type Department Care Team (Late st Contact Info) Description 08/02/2023 Telephone Hematology/Oncology Treatment, [place] [address] [place] [phone] Luann De La Cruz MD [address] [place] [address] No Show Allergies Active Allergy Reactions Criticality Noted Date Comments Calcium Carb-Cholecalciferol 016 documented as of this encounter (statuses as of 08/04/2023) Medications Medication Sig Dispensed Refills Start Date [...] MG Sublingual Tablet Sublingual (Nitrostat)Indicati ons:Atherosclerosis of [place] coronary artery of [place] heart without angina pectoris One tablet under [...] as of this encounter (statuses as of 08/04/2023) Active Problems Problem Noted Date Diagnosed Date [...] cancer 04/24/2020 Coronary artery disease invo lving te-[place] heart without angina pectoris 05/22/2019 Old myocardial infarct 12/06/2018 S/p bare metal coronary artery stent 01/12/2015 Tobacco use disorder 04/16/2012 HTN, goal below 130/80 2012 GERD (gastroesophageal reflux disease) 2 documented as of this encounter (statuses as of 08/04/2023) Resolved Problems Problem Noted Date Diagnosed Date Resolved Date Dehydration 02/01/2021 03/29/2022 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 Atherosclerosis of coronary artery without angina pectoris 09/14/2018 03/29/2022 ST elevation myocardial infarction (STEMI) 03/20/2017 12/06/2018 Lung nodule 10/14/2015 03/29/2022 ST elevation myocardial infa rction (STEMI) involving other coronary artery 05/19/2015 03/20/[address] elevation [place] (STEMI) 01/12/201508/26 Myocardial infarction 02/03/20142017 COPD, moderate 08/27/2013 08/06/2020 Overview: Per COPD GOLD Classification Noncompliance 03/13/2013 03/21/2017 Anemia 05/03/2012 03/29/2022 COPD, severity to be determined 04/16/2012 08/27/2013 Dyslipidemia, goal LDL below 70 04/16/2012 03/29/2022 documented as of this encounter (statuses as of 08/04/2023) Immunizations Name Administration Dates Next Due COVID-19 mRNA, LNP-s, No Pre serve, 2-Dose Series ([employer]) 08/28/2021,02/18/2021,01/28/2021 Pneumococcal Conjugate Vacc, 13 Valent [...] not get his labs done yesterday at [facility] for treatment today either. Patient is to come Q2 weekly for Velcade with labs the day prior. Patient prefers to stay on Monday for his Velcade and Tuesdays for labs. Patient has an appt scheduled for 08/15 labs at [facility] and Velcade on 08/16, along with a [...] as soon as patient is able. NS: [place] would need adjusted accordingly, depending on outcome. documented in this encounter Plan of Treatment Upcoming Encounters Date Type Department Care Team (Late st Contact Info) Description 08/10/2023 6:00 PM EST Scheduled Telephone Pharmacy Hematology Oncology [facility], [place] [address] [place] [address] [facility] Hem/Onc Tech [facility] [place] [address] 08/11/2023 9:00 AM EST Hem/Onc Treatment Hematology Oncology [facility], [address] [phone] H, Infusion Chair [facility] [address] [place], [place] [phone] 08/11/2023 10:30 AM EST Appointment Radiology, [address] [address] 08/11/2023 12:00 PM EST Office Visit Vascular Surg [facility], [place] [address] [place] [address] Robin Burleson MD [address] [place] [address] 08/15/2023 11:00 AM EST Laboratory Laboratory, [address] [phone] [place] [address] [place] [address] 08/16/2023 9:30 AM EST Office Visit Hematology/Oncology [facility] [place] 200 [address] [place] [address] Luann De La Cruz MD 200 [address] [place] [address] 08/16/2023 10:00 AM EST Hem/Onc Treatment Hematology/Oncology Treatment, [address], [place] [address] Tresa, Chair 3 Hem On[address] [place] [address] 08/23/2023 3:30 PM EST Office Visit Cardiology, [facility] [place] [address] Brian Hager MD 132 [facility] [place] [address] 08/29/2023 11:00 AM EST Laboratory Laboratory, [place] [address] [place] [address] [facility] [address] [place] [address] 08/30/2023 9:00 AM EST Pharmacy Pharmacy Hematology Oncology [facility] [address] [place] [address] [facility] Hem/Onc [address] [place] [address] 08/30/2023 11:30 AM EST Hem/Onc Treatment Hematology/Oncology Treatment, [address], [place] [address] Tresa, Chair 7 Hem Onc [facility] 200 [facility] [place], [place] [address] 09/12/2023 10:30 AM EST Laboratory Laboratory, [place] [address] [place] [phone] [facility] [address] [place] [address] 09/13/2023 10:15 AM EST Hem/Onc Treatment [facility] 200 [facility], [place] [address] Tresa, Chair 3 Hem Onc [facility] 200 [facility] [place] [address] 09/26/2023 10:30 AM EST Laboratory Laboratory, [place] [address] [place] [phone] [facility] [address] [place] [address] 09/27/2023 10:00 AM EST Office Visit Hematology/Oncology [facility] 200 [facility] [place] [address] Luann De La Cruz MD 200 [facility] [place] [address] 09/27/2023 10:30 AM EST Hem/Onc Treatment [facility] 200 [facility], [place] [address] Tresa, Chair 11 Hem Onc [facility] 200 [facility] [place] [address] 10/20/2023 10:30 AM EST Office Visit Cardiology, [facility] 132 [place] [address] Leda Myers PA-C 132 [facility] [place] [address] 10/30/2023 10:50 AM EST Office Visit Ophthalmology, [facility] 132 [facility] [place] [address] Kana Frost T, DO 16 [place] [address] 01/12/2024 10:10 AM EDT Office Visit [facility], [place] [address] [place] [facility] [place] [address] Savanah Geiger, DO [address] [place] [address] Scheduled Procedures Name Priority Associated Diagnoses Date/Ti me COLONOSCOPY FLEXIBLE PROXIMAL DIAGNOSTIC Recall History of colon polyps Health Maintenance Due Date Last Done Comments Albumin/Creatinine Ratio 02/13/1970 Alpha-1 Antitrypsin 02/13/1970 Hepatitis C Screening 02/13/1970 DTaP,Tdap,and Td Vaccines (1 - Tdap) 02/13/1971 Zoster Vaccines (1 of 2) 02/13/1971 DISCUSS TOBACCO CESSATION (REFER TO SMARTSET #9059) 07/12/2018 07/12/2017 (Course Completed) COLONOSCOPY-EVERY 3 YRS AGES 18-100 05/23/2020 05/23/2017 Depression Screening 07/30/2021 07/30/2020, 07/12/2017 (Declined) COVID-19 Vaccine (2022- season) 2023 08/28/2021, 02/18/2021, 01/28/2021 GFR 01/17/2024 07/18/2023, 06/25, 06/20/2023, Additional history exists CKD PHOS USE SMARTSET 32746 2024 02/13/2023, 0 02/11/2021 CKD HGB USE SMARTSET 26401 07/18/202407/18, 07/18/2023, 07/04/2023, Additional history exists O2 ASSESSMENT COMPLETED IN PAST YEAR FOR COPD 07/19/2024 07/19/2023 LUNG CANCER SCREENING - USE SMARTSET 16569 Completed 03/14/2022, 06/03/2020, 05/27/2020, Additional history exists [...] filedocumented as of this encounter Care Teams Grocery Worker Relationship Specialty Start Date End Date Savanah Geiger DO [address] [place] [address] PCP - General Family Medicine 04/11/12 documented as of this encounter
--- OUTSIDE RECORDS SUMMARY | 2023-08-22 17:25 | External Medical Summary | Summary of Care ---
Author Name Unknown Organization [facility] Address [address] [place] [address] Phone [phone] Care Team Providers Care Child Protection Specialist Name Role Phone Savanah Geiger DO Primary Care Provider + [phone] Reason for Visit * Reason Comments Chemotherapy Velcade * Episode Based Medications (Routine) - Authorized Specialty Diagnoses / Procedures Referred By Contnataliia t Referred To Contact Diagnoses Multiple myeloma not having achieved remission (HCC) Procedures UT INJ., VELCADE 0.1 MG Luann De La Cruz MD 200 [facility] [place] [address] Anc Hem/Onc [facility] 200 [facility] [place] [address] Referral ID Status Reason Start Date Expiration Date V isits Requested Visits Authorized [id number] Authorized 02/22/2022 09/24/2099 99 99 Encounter Details Date Type Department Care Team (Latest Contact Info) Description 07/19/2023 9:30 AM EDT Hem/Onc Treatment Hematology/Oncolog y Treatment, [place] [address] [place] [address] Tresa, Chair 5 Hem Onc [facility] 200 [facility] [place] [id number] Multiple myeloma not having achieved remission (HCC)*; Encounter for antineoplastic chemotherapy Allergies Active Allergy Reactions Criticality Noted Date Comments Calcium Carb-Cholecalciferol 016 documented as of this encounter (statuses as of 07/19/2023) Medications Medication Sig Dispensed Refills Start Date [...] MG Sublingual Tablet Sublingual (Nitrostat)Indicati ons:Atherosclerosis of [place] coronary artery of [place] heart without angina pectoris One tablet under [...] as of this encounter (statuses as of 07/19/2023) Active Problems Problem Noted Date Diagnosed Date [...] cancer 04/24/2020 Coronary artery disease invo lving [place] heart without angina pectoris 05/22/2019 Old myocardial infarct 12/06/2018 S/p bare metal coronary artery stent 01/12/2015 Tobacco use disorder 04/16/2012 HTN, goal below 130/80 2012 GERD (gastroesophageal reflux disease) 2 documented as of this encounter (statuses as of 07/19/2023) Resolved Problems Problem Noted Date Diagnosed Date [...] as of this encounter (statuses as of 07/19/2023) Immunizations Name Administration Dates Next Due COVID-19 mRNA, LNP-s, No Pre serve, 2-Dose Series ([employer]) 08/28/2021,02/18/2021,01/28/2021 Pneumococcal Conjugate Vacc, 13 Valent (Prevnar) [...] Sign Reading Time Taken Comments Blood Pressure 121/75 07/19/2023 10:03 AM EDT Pulse 80 07/19/2023 10:03 AM EDT Temperature 36.2 C (97.1 F) 07/19/2023 10:03 AM E DT Respiratory Rate 18 07/19/2023 10:03 AM EDT Oxygen Saturation 96% 07/19/2023 10:03 AM EDT Inhaled Oxygen Concentration - - Weight 78.1 kg (172 lb 3.2 oz) 07/19/2023 10:03 AM EDT Height - - Body Mass Index 27.79 01/05/2023 8:34 AM EDT documented in this encounter Nursing Notes * Jennifer Valerio RN - 07/19/2023 10:59 AM EDT Functional status at today's visit: Fully active, able to carry on all pre-disease performance without restriction The drug name, dose, volume, and route of administration, expiration date and time, appearance and physical integrity of the drug and were verified by me and second sign-in RN. Velcade administered per order; pt tolerated well. Patient was assessed for symptoms or adverse side effects during treatment. Pt discharged in stable condition. * Jennifer Valerio RN - 07/19/2023 10:13 AM EDT Chair 2 Chemo agents Velcade Appetite stable Nausea/Vomiting no Diarrhea no Constipation yes, but managing through diet Mucositis no Fatigue stable Bleeding no Infection no Rash no Numbness tingling no Pain no Radiation n/a ABN Labs okay for treatment Alt in Tx: no Return in 2 weeks documented in this encounter Plan of Treatment Upcoming Encounters Date Type Department Care Team (Late st Contact Info) Description 07/21/2023 6:00 PM EDT Scheduled Telephone Pharmacy Hematology Oncology [facility], [address] [address] [facility] Hem/Onc Tech [address] [place] [address] 08/01/2023 11:00 AM EST Laboratory Laboratory, [address] [phone] [address] 08/02/2023 9:00 AM EST Pharmacy Pharmacy Hematology Oncology [address] [address] [facility] Hem/Onc [address] [place] [address] 08/02/2023 11:30 AM EST Hem/Onc Treatment Hematology/Oncology Treatment, [place] [address] [place] [address] Tresa, Chair 5 Hem Onc [place] [address] [facility] [place] [address] 08/11/2023 9:00 AM EST Hem/Onc Treatment Hematology Oncology [facility], [address] [address] H, Infusion Chair [address] [place] [address] 08/11/2023 10:30 AM EST Appointment Radiology, [place] [address] [place] [address] 08/11/2023 12:00 PM EST Office Visit Vascular Surg [facility] Advanced Medicine, [place] [address] [place] [address] Robin Burleson MD [address] [place] [address] 08/15/2023 11:00 AM EST Laboratory Laboratory, [place] [address] [place] [address] [facility] [address] [place] [address] 08/16/2023 9:30 AM EST Office Visit Hematology/Oncology [facility] [address] [place] [address] Luann De La Cruz MD [address] [place] [address] 08/16/2023 10:00 AM EST Hem/Onc Treatment Hematology/Oncology Treatment, [place] [address] [place] [address] Tresa, Chair 3 Hem Onc [facility] 200 [place] [address] 08/23/2023 3:30 PM EST Office Visit Cardiology, [facility] 132 [facility] [place] [address] Brian Hager MD 132 [facility] [place] [address] 08/29/2023 11:00 AM EST Laboratory Laboratory, [place] [address] [place] [phone] [facility] [address] [place], [place] [phone] 08/30/2023 11:30 AM EST Hem/Onc Treatment Hematology/Oncology Treatment, [place] [address] [place] [address] Tresa, Chair 7 Hem Onc [place] [address] [place] [address] 10/20/2023 10:30 AM EST Office Visit Cardiology, [facility] [address] [place] [address] Leda Myers, PAKiera [address] [place] [address] 10/30/2023 10:50 AM EST Office Visit Ophthalmology, [facility] [address] [place] [address] Kana Frost, DO 16 [place] [address] 01/12/2024 10:10 AM EDT Office Visit [facility] [address] [place] [address] Savanah Geiger, [address] [place] [address] Scheduled Procedures Name Priority Associated Diagnoses Date/Ti [...] Additional history exists CKD PHOS USE SMARTSET 99203 2024 02/13/2023, 0 02/11/2021 O2 ASSESSMENT COMPLETED IN PAST YEAR FOR COPD 07/05/2024 07/05/2023 CKD HGB USE SMARTSET 24916 07/18/202407/18, 07/18/2023, 07/04/2023, Additional history exists LUNG CANCER SCREENING - USE SMARTSET 24752 Completed 03/14/2022, 06/03/2020, 05/27/2020, Additional history exists [...] BSA from Recorded weight), Subcutaneous, ONCE, On Mon07/19/23 at 1145, For 1 dose, Caution chemotherapy: Handle with gloves Given 07/19/2023 10:29 AM EDT 2.5 mg Abdomen Left Lower documented in this encounter Care Teams Child Protection Specialist Relationship Specialty Start Date End Date Savanah Geiger DO [address] [facility] [place] [address] PCP - General Family Medicine 04/11/12 documented as of this encounter
--- OUTSIDE RECORDS SUMMARY | 2023-08-22 17:25 | External Medical Summary | Summary of Care ---
Author Name Unknown Organization [facility] Address [address] [place] [address] Phone [phone] Care Team Providers Care Hatchery Laborer Name Role Phone GriffinreedSavanah DO Primary Care Provider Encounter Details Date Type Department Care Team (Late st Contact Info) Description 07/20/2023 Telephone Hematology/Oncology [facility] [place] [address] [place], [place] [phone] Services, Scheduling [address] [place] [address] Allergies Active Allergy Reactions Criticality Noted Date [...] MG Sublingual Tablet Sublingual (Nitrostat)Indicati ons:Atherosclerosis of [place] coronary artery of [place] heart without angina pectoris One tablet under [...] cancer 04/24/2020 Coronary artery disease invo lving [place] heart without angina pectoris 05/22/2019 Old myocardial [...] other coronary artery 05/19/2015 03/20/20 ST elevation [place] (STEMI) 01/12/201508/26 Myocardial infarction [...] encounter Miscellaneous Notes * Telephone Encounter - Sarahy Mcallister RN - 07/20/2023 10:16 AM EDT Called and spoke to patients . She states that 07/26/23 will be patients last day of revlimid for this cycle. Advised her that I would make new calendar and mail it out. * Telephone Encounter - JOSE Womack - 07/20/2023 9:47 AM EDT Brian called and would like to speak with a nurse in regards to needing a new medication callander Please call him back thank you documented in this encounter Plan of Treatment Upcoming Encounters Date Type Department Care Team (Late st Contact Info) Description 07/21/2023 6:00 PM EDT Scheduled Telephone Pharmacy Hematology Oncology [address] [address] [facility] Hem/Onc Tech [address] [place] [address] 08/01/2023 11:00 AM EST Laboratory Laboratory, [address] [phone] [address] [address] 08/02/2023 9:00 AM EST Pharmacy Pharmacy Hematology Oncology [address] [address] [facility] Hem/Onc [address] [place] [address] 08/02/2023 11:30 AM EST Hem/Onc Treatment Hematology/Oncology Treatment, [place] [address] [place] [address] Tresa, Chair 5 Hem Onc Scenery [address] [place] [address] 08/11/2023 9:00 AM EST Hem/Onc Treatment Hematology Oncology [facility] [place] [address] [place] [address] H, Infusion Chair [address] [place] [address] 08/11/2023 10:30 AM EST Appointment Radiology, [place] [address] [place] [address] 08/11/2023 12:00 PM EST Office Visit Vascular [facility], [place] [address] [place] [address] Robin Burleson MD [address] [place] [address] 08/15/2023 11:00 AM EST Laboratory Laboratory, [address] [phone] [address] 08/16/2023 9:30 AM EST Office Visit Hematology/Oncology [facility] [address] [place] [address] Luann De La Cruz MD 200 [place] [address] 08/16/2023 10:00 AM EST Hem/Onc Treatment Hematology/Oncology Treatment, [place] [address] [place] [address] Park, Chair 3 Hem Onc [facility] 200 [place] [address] 08/23/2023 3:30 PM EST Office Visit Cardiology, [place] [facility] [address] [place] [address] Brian Hager MD [address] [place] [address] 08/29/2023 11:00 AM EST Laboratory Laboratory, [place] [address] [place] [phone] [facility] [address] [place] [address] 08/30/2023 11:30 AM EST Hem/Onc Treatment Hematology/Oncology Treatment, [place] [address] [place] [address] Tresa, Chair 7 Hem Onc Scenery [address] [place] [address] 10/20/2023 10:30 AM EST Office Visit Cardiology, [place] [facility] 132 [place] [address] Leda Myers, JUANITA [address] [place] [address] 10/30/2023 10:50 AM EST Office Visit Ophthalmology, [place] [facility] [address] [place] [address] Kana Frost, DO 16 [place] [address] 01/12/2024 10:10 AM EDT Office Visit Family [facility] [address] [place] [phone] Savanah Geiger DO [address] [place] [address] Scheduled Procedures Name Priority Associated Diagnoses Date/Ti me COLONOSCOPY FLEXIBLE PROXIMAL DIAGNOSTIC Recall History of colon polyps Health Maintenance Due Date Last Done Comments Albumin/Creatinine Ratio 02/13/1970 Alpha-1 Antitrypsin 02/13/1970 Hepatitis C Screening 02/13/1970 DTaP,Tdap,and Td Vaccines (1 - Tdap) 02/13/1971 Zoster Vaccines (1 of 2) 02/13/1971 DISCUSS TOBACCO CESSATION (REFER TO SMARTSET #8060) 07/12/2018 07/12/2017 (Course Completed) COLONOSCOPY-EVERY 3 YRS AGES 18-100 05/23/2020 05/23/2017 Depression Screening 07/30/2021 07/30/2020, 07/12/2017 (Declined) COVID-19 Vaccine ( season) 2023 08/28/2021, 02/18/2021, 01/28/2021 GFR 01/17/2024 07/18/2023, 06/25, 06/20/2023, Additional history exists CKD PHOS USE SMARTSET 91536 2024 02/13/2023, 0 02/11/2021 CKD HGB USE SMARTSET 76967 07/18/202407/18, 07/18/2023, 07/04/2023, Additional history exists O2 ASSESSMENT COMPLETED IN PAST YEAR FOR COPD 07/19/2024 07/19/2023 LUNG CANCER SCREENING - USE SMARTSET 14228 Completed 03/14/2022, 06/03/2020, 05/27/2020, Additional history exists [...] filedocumented as of this encounter Care Teams Hatchery Laborer Relationship Specialty Start Date End Date Savanah Geiger DO [address] [place], [place] [phone] PCP - General Family Medicine 04/11/12 documented as of this encounter
--- OUTSIDE RECORDS SUMMARY | 2023-08-22 17:25 | External Medical Summary | Summary of Care ---
Author Name Unknown Organization [facility] Address [address] [place] [address] Phone [phone] Care Team Providers Care Deblocker Name Role Phone GriffinreedSavanah DO Primary Care Provider Encounter Details Date Type Department Care Team (Late st Contact Info) Description 07/20/2023 Telephone Hematology/Oncology [facility] [place] [address] [place], [place] [phone] Services, Scheduling [address] [place] [address] Allergies Active Allergy Reactions Criticality Noted Date [...] MG Sublingual Tablet Sublingual (Nitrostat)Indicati ons:Atherosclerosis of [place] coronary artery of [place] heart without angina pectoris One tablet under [...] cancer 04/24/2020 Coronary artery disease invo lving [place] heart without angina pectoris 05/22/2019 Old myocardial [...] Telephone Encounter - Sarahy Mcallister RN - 07/24/2023 1:11 PM EDT Mailed calendar. * Telephone Encounter - Sarahy Mcallister RN - 07/20/2023 10:16 AM EDT Called and spoke to patients . She states that 07/26/23 will be patients last day of revlimid for this cycle. Advised her that I would make new calendar and mail it out. * Telephone Encounter - Tayler Chopra OSA - 07/20/2023 9:47 AM EDT Brian called and would like to speak with a nurse in regards to needing a new medication callander Please call him back thank you documented in this encounter Plan of Treatment Upcoming Encounters Date Type Department Care Team (Late st Contact Info) Description 08/01/2023 11:00 AM EST Laboratory Laboratory, [address] [phone] [place] [address] [place] [address] 08/02/2023 9:00 AM EST Pharmacy Pharmacy Hematology Oncology [address] [address] [facility] Hem/Onc [address] [place] [address] 08/02/2023 11:30 AM EST Hem/Onc Treatment Hematology/Oncology Treatment, [place] [address] [place] [address] Tresa, Chair 5 Hem Onc Scenery [address] [facility] [address] 08/11/2023 9:00 AM EST Hem/Onc Treatment Hematology Oncology [address] [place] [address] H, Infusion Chair [facility] [place] [address] 08/11/2023 10:30 AM EST Appointment Radiology, [address] [address] 08/11/2023 12:00 PM EST Office Visit Vascular [facility], [address] [address] Robin Burleson MD [facility] [place] [address] 08/15/2023 11:00 AM EST Laboratory Laboratory, [address] [phone] [address] [address] 08/16/2023 9:30 AM EST Office Visit Hematology/Oncology [facility] 200 [place] [address] Luann De La Cruz MD 200 [place] [address] 08/16/2023 10:00 AM EST Hem/Onc Treatment Hematology/Oncology Treatment, [place] [address] [facility] [place] [address] Tresa, Chair 3 Hem Onc [address] [place] [address] 08/18/2023 6:00 PM EST Scheduled Telephone Pharmacy Hematology Oncology [facility], [address] [address] [facility] Hem/Onc Tech [facility] [place] [address] 08/23/2023 3:30 PM EST Office Visit Cardiology, [facility] [address] [facility] [place] [address] Brian Hager MD 132 [place] [address] 08/29/2023 11:00 AM EST Laboratory Laboratory, [place] [address] [place] [phone] [facility] [address] [place] [address] 08/30/2023 11:30 AM EST Hem/Onc Treatment Hematology/Oncology Treatment, [place] [address] [place] [address] Tresa, Chair 7 Hem Onc Scenery [address] [place] [address] 10/20/2023 10:30 AM EST Office Visit Cardiology, [facility] [address] [place] [address] Leda Myers, JUANITA 132 [place] [address] 10/30/2023 10:50 AM EST Office Visit Ophthalmology, [facility] 132 [facility] [place] [address] Kana Frost, DO [address] [place] [address] 01/12/2024 10:10 AM EDT Office Visit Family Practice, [place] [address] [place] [facility] [place] [phone] Savanah Geiger DO [address] [place] [address] Scheduled Procedures Name Priority Associated Diagnoses Date/Ti me COLONOSCOPY FLEXIBLE PROXIMAL DIAGNOSTIC Recall History of colon polyps Health Maintenance Due Date Last Done Comments Albumin/Creatinine Ratio 02/13/1970 Alpha-1 Antitrypsin 02/13/1970 Hepatitis C Screening 02/13/1970 DTaP,Tdap,and Td Vaccines (1 - Tdap) 02/13/1971 Zoster Vaccines (1 of 2) 02/13/1971 DISCUSS TOBACCO CESSATION (REFER TO SMARTSET #7137) 07/12/2018 07/12/2017 (Course Completed) COLONOSCOPY-EVERY 3 YRS AGES 18-100 05/23/2020 05/23/2017 Depression Screening 07/30/2021 07/30/2020, 07/12/2017 (Declined) COVID-19 Vaccine (2022- season) 2023 08/28/2021, 02/18/2021, 01/28/2021 GFR 01/17/2024 07/18/2023, 06/25, 06/20/2023, Additional history exists CKD PHOS USE SMARTSET 73475 2024 02/13/2023, 0 02/11/2021 CKD HGB USE SMARTSET 28660 07/18/202407/18, 07/18/2023, 07/04/2023, Additional history exists O2 ASSESSMENT COMPLETED IN PAST YEAR FOR COPD 07/19/2024 07/19/2023 LUNG CANCER SCREENING - USE SMARTSET 06757 Completed 03/14/2022, 06/03/2020, 05/27/2020, Additional history exists [...] filedocumented as of this encounter Care Teams Deblocker Relationship Specialty Start Date End Date Savanah Geiger DO [address] [place] [address] PCP - General Family Medicine 04/11/12 documented as of this encounter
--- OUTSIDE RECORDS SUMMARY | 2023-08-22 17:25 | External Medical Summary | Summary of Care ---
Author Name Unknown Organization [facility] Address [address] [place] [address] Phone [phone] Care Team Providers Care Senior Process Analyst Name Role Phone Savanah Geiger DO Primary Care Provider Reason for Visit * Reason Onset Date Comments Medication Update 07/28/2023 FYI 07/28/2023 Encounter Details Date Type Department Care Team (Latest Contact Info) Description 07/28/2023 6:30 PM EDT Scheduled Telephone Pharmacy Hematology Oncology [facility] [address] [place] [address] [facility] Hem/Onc [facility] [address] [place] [address] Multiple myeloma, remission status unspecified (HCC)* Allergies Active Allergy Reactions Criticality Noted Date Comments Calcium Carb-Cholecalciferol 016 documented as of this encounter (statuses as of 07/28/2023) Medications Medication Sig Dispensed Refills Start Date [...] MG Sublingual Tablet Sublingual (Nitrostat)Indicati ons:Atherosclerosis of [place] coronary artery of [place] heart without angina pectoris One tablet under [...] as of this encounter (statuses as of 07/28/2023) Active Problems Problem Noted Date Diagnosed Date [...] cancer 04/24/2020 Coronary artery disease invo lving [place] heart without angina pectoris 05/22/2019 Old myocardial infarct 12/06/2018 S/p bare metal coronary artery stent 01/12/2015 Tobacco use disorder 04/16/2012 HTN, goal below 130/80 2012 GERD (gastroesophageal reflux disease) 2 documented as of this encounter (statuses as of 07/28/2023) Resolved Problems Problem Noted Date Diagnosed Date Resolved Date Dehydration 02/01/2021 03/29/2022 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 Atherosclerosis of coronary artery without angina pectoris 09/14/2018 03/29/2022 ST elevation myocardial infarction (STEMI) 03/20/2017 12/06/2018 Lung nodule 10/14/2015 03/29/2022 ST elevation myocardial infa rction (STEMI) involving other coronary artery 05/19/2015 06/26/[address] elevation [place] (STEMI) 01/12/201508/26 Myocardial infarction 02/03/20142017 COPD, moderate 08/27/2013 08/06/2020 Overview: Per COPD GOLD Classification Noncompliance 03/13/2013 03/21/2017 Anemia 05/03/2012 03/29/2022 COPD, severity to be determined 04/16/2012 08/27/2013 Dyslipidemia, goal LDL below 70 04/16/2012 03/29/2022 documented as of this encounter (statuses as of 07/28/2023) Immunizations Name Administration Dates Next Due COVID-19 mRNA, LNP-s, No Pre serve, 2-Dose Series ([email or web address]) 08/28/2021,02/18/2021,01/28/2021 Pneumococcal Conjugate Vacc, 13 Valent (Prevnar) [...] Telephone Encounter - Joanna Lezama CPhT - 07/28/2023 2:32 PM EDT Confirmed via [employer] [facility] has dispensed Lenalidomide on 07/27. MTD to schedule for next authorization accordingly Joanna Lezama Payroll Technician II [facility] Oral Chemotherapy [facility] 07/28/2023 2:33 PM Time Spent on Encounter: < 5 minutes documented in this encounter Plan of Treatment Upcoming Encounters Date Type Department Care Team (Late st Contact Info) Description 08/01/2023 11:00 AM EST Laboratory Laboratory, [address] [phone] [place] [address] [place] [address] 08/02/2023 9:00 AM EST Pharmacy Pharmacy Hematology Oncology [address] [address] [facility] Hem/Onc [address] [place] [address] 08/02/2023 11:30 AM EST Hem/Onc Treatment Hematology/Oncology [address] [address] Tresa, Chair 8 Hem Onc Scenery [address] [place] [address] 08/10/2023 6:00 PM EST Scheduled Telephone Pharmacy Hematology Oncology [address] [address] [facility] Hem/Onc Tech [address] [place] [address] 08/11/2023 9:00 AM EST Hem/Onc Treatment Hematology Oncology [facility] [place] [address] [place] [address] H, Infusion Chair [address] [place] [address] 08/11/2023 10:30 AM EST Appointment Radiology, [place] [address] [place] [address] 08/11/2023 12:00 PM EST Office Visit Vascular [facility] Advanced [facility], [place] [address] [place] [address] Robin Burleson MD [address] [place] [address] 08/15/2023 11:00 AM EST Laboratory Laboratory, [address] [phone] [address] [address] 08/16/2023 9:30 AM EST Office Visit Hematology/Oncology [facility] [address] [place] [address] Luann De La Cruz MD 200 [facility] [place] [address] 08/16/2023 10:00 AM EST Hem/Onc Treatment Hematology/Oncology Treatment, [place] [address] [place] [address] Park, Chair 3 Hem Onc [facility] [address] [place] [address] 08/23/2023 3:30 PM EST Office Visit Cardiology, [facility] [address] [place] [address] Brian Hager MD [address] [place] [address] 08/29/2023 11:00 AM EST Laboratory Laboratory, [place] [address] [place] [facility] [place] [phone] [place], Laboratory [address] [place] [facility] [place] [address] 08/30/2023 11:30 AM EST Hem[facility] 200 [facility], [place] [address] Tresa, Chair 7 Hem Onc Scenery 200 [facility] [place] [address] 09/12/2023 10:30 AM EST Laboratory Laboratory, [place] [address] [place] [facility] [place] [address] [place], Laboratory [address] [place] [place] [address] 09/13/2023 10:15 AM EST Hem[facility]Onc [facility] 200 [facility], [place] [address] Tresa, Chair 3 Hem Onc Scenery 200 [facility] [place] [address] 09/26/2023 10:30 AM EST Laboratory Laboratory, [place] [address] [facility], [place] [phone] [place], Laboratory [address] [place] [place] [address] 09/27/2023 10:00 AM EST Office Visit Hematology/Oncology [facility] Tresa [place] [address] [place] [address] Luann De La Cruz MD [address] [place] [address] 09/27/2023 10:30 AM EST Hem/Onc [facility] [address] Tresa, Chair 11 Hem Onc Scenery [address] [place] [address] 10/20/2023 10:30 AM EST Office Visit Cardiology, [facility] 132 [place] [address] Leda Myers, JUANITA 132 [place] [address] 10/30/2023 10:50 AM EST Office Visit Ophthalmology, [facility] 132 [place] [address] Kana Frost, DO 16 [place] [address] 01/12/2024 10:10 AM EDT Office Visit [facility] [address] [place] [phone] Savanah Geiger, [address] [place] [address] Scheduled Procedures Name Priority Associated Diagnoses Date/Ti [...] Additional history exists CKD PHOS USE SMARTSET 71936 2024 02/13/2023, 0 02/11/2021 CKD HGB USE SMARTSET 12726 07/18/202407/18, 07/18/2023, 07/04/2023, Additional history exists O2 ASSESSMENT COMPLETED IN PAST YEAR FOR COPD 07/19/2024 07/19/2023 LUNG CANCER SCREENING - USE SMARTSET 38875 Completed 03/14/2022, 06/03/2020, 05/27/2020, Additional history exists [...] Primary documented in this encounter Care Teams Senior Process Analyst Relationship Specialty Start Date End Date Savanah Geiger DO [address] [place] [address] PCP - General Family Medicine 04/11/12 documented as of this encounter
--- OUTSIDE RECORDS SUMMARY | 2023-08-22 17:26 | External Medical Summary | Summary of Care ---
Author Name Unknown Organization [facility] Address [address] [place] [address] Phone [phone] Care Team Providers Care Program Services Planner Name Role Phone Savanah Geiger DO Primary Care Provider + [phone] Reason for Visit * Reason Comments Chemotherapy Velcade * Episode Based Medications (Routine) - Authorized Specialty Diagnoses / Procedures Referred By Contnataliia t Referred To Contact Diagnoses Multiple myeloma not having achieved remission (HCC) Procedures AR INJ., VELCADE 0.1 MG Luann De La Cruz MD [address] [place] [address] Anc Hem/Onc Scenery Tresa [address] [place] [phone] Referral ID Status Reason Start Date Expiration Date V isits Requested Visits Authorized [id number] Authorized 02/22/2022 09/24/2099 99 99 Encounter Details Date Type Department Care Team Description 07/05/2023 Hem/Onc Treatment Hematology/Oncology Treatment, [place] [address] [place] [phone] Tresa, Chair 2 Hem Onc Scenery [address] [place] [address] Multiple myeloma not having achieved remission (HCC)* Allergies Active Allergy Reactions Severity Noted Date Comments Calcium Carb-Cholecalciferol 016 documented as of this encounter (statuses as of 07/05/2023) Medications Medication Sig Dispensed Refills Start Date [...] Active Prochlorperazine Maleate 10 MG Oral Tablet (Compazine)Indicati [...] MG Sublingual Tablet Sublingual (Nitrostat)Indicati ons:Atherosclerosis of [place] coronary artery of [place] heart without angina pectoris One tablet under [...] 7 DAYS OFF 14 Capsule 0 06/14/2023 Active documented as of this encounter (statuses as of 07/05/2023) Active Problems Problem Noted Date Dyslipidemia 03/29/2022 Abdominal aortic aneurysm without ruptur e 03/03/2022 Chronic kidney disease, stage 3a 021 Overview: Per CKD protocol Dilated aortic root 10/21/2020 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 COPD, group B, by GOLD 2017 classificati on 08/03/2020 Overview: Per COPD GOLD Classification Multiple myeloma 07/07/2020 Abdominal aortic aneurysm (AAA) without rupture 05/11/2020 Aneurysm of common iliac artery 05/11/20 20 Aneurysm of internal iliac artery 2019 Bladder cancer 04/24/2020 Coronary artery disease involving [place] heart without angina pectoris 05/22/2019 Old myocardial infarct 12/06/2018 S/p bare metal coronary artery stent Tobacco use disorder 04/16/2012 HTN, goal below 130/80 2012 GERD (gastroesophageal reflux disease) 0 2012 documented as of this encounter (statuses as of 07/05/2023) Resolved Problems Problem Noted Date Resolved Date Dehydration 02/01/2021 03/29/2022 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 Atherosclerosis of coronary artery without angin a pectoris 09/14/2018 03/29/2022 ST elevation myocardial infarction (STEMI) 03/2012/06/2018 Lung nodule 10/14/2015 03/29/2022 ST elevation myocardial infa rction (STEMI) involving other coronary artery 05/19/2015 03/20/2017 ST elevation [place] (STEMI) 01/12/2015 09/14/20 18 Myocardial infarction 02/03/2014 09/14/2018 COPD, moderate 08/27/2013 08/06/2020 Overview: Per COPD GOLD Classification Noncompliance 03/13/2013 03/21/2017 Anemia 05/03/2012 03/29/2022 COPD, severity to be determined 04/16/2012 08/27/2013 Dyslipidemia, goal LDL below 70 04/16/2012 03/29/2022 documented as of this encounter (statuses as of 07/05/2023) Immunizations Name Administration Dates Next Due COVID-19 mRNA, LNP-s, No Pre serve, 2-Dose Series ([employer]) 08/28/2021,02/18/2021,01/28/2021 Pneumococcal Conjugate Vacc, 13 Valent (Prevnar) [...] alcohol) chronic alcoholic, sober for years now Food Insecurity Answer Date Recorded Within the past 12 months, y ou worried that your food would run out before you got money to buy more. Never true 09/23/2022 Within the past 12 months, t he food you bought just didn't last and you didn't have money to get more. Never true 09/23/2022 Sex Assigned at Date Recorded Male 07/18/2022 2:25 PM E DT Job Start Date Occupation Industry Not on [...] Plan of Treatment Upcoming Encounters Date Type Specialty Care Team Description 07/10/2023 Office Visit Family Medicine Savanah Geiger DO [address] [place] [address] 07/14/2023 Scheduled Telephone Pharmacy [facility] Hem/Onc Tech [address] [place] [address] 07/18/2023 Laboratory Laboratory [place], Laboratory [address] [place] [address] 07/19/2023 Hem/Onc Treatment Hematology Oncology 08/01/2023 Laboratory Laboratory [place], Laboratory [address] [place] [address] 08/02/2023 [place] [facility] [place] Hem/Onc [address] [place] [address] 08/02/2023 Hem/Onc Treatment Hematology [place]cology [place], Chair 5 Hem Onc Scenery [address] [place] [address] 08/11/2023 Hem/Onc Treatment Hematology Oncology H, Infusion Chair [address] [place] [address] 08/11/2023 Appointment Radiology 08/11/2023 Office Visit Vascular Surgery Robin Burleson MD [address] [place] [address] 08/15/2023 Laboratory Laboratory [address] [address] 08/16/2023 Office Visit Hematology Oncology Luann De La Cruz MD [address] [place] [address] 08/16/2023 Hem/Onc Treatment Hematology Oncology [place], Chair 3 Hem Onc Scenery [address] [place] [address] 08/23/2023 Office Visit Cardiology Brian Hager MD [address] [place] [address] 08/29/2023 Laboratory Laboratory [address] [address] 08/30/2023 Hem/Onc Treatment Hematology Oncology [place], Chair 7 Hem Onc Scenery [address] [place] [address] 10/20/2023 Office Visit Cardiology Leda Myers PA-C [address] [place] [address] Scheduled Procedures Name Priority Associated Diagnoses Date/Ti [...] Vaccine ( season) 2023 08/28/2021, 02/18/2021, 01/28/2021 Influenza Vaccine (FLU shot) (#1) 2023 06/23/2022, 07/12/2021, 07/09/2020, Additional history exists GFR 01/03/2024 07/04/2023, 05/27, 06/06/2023, Additional history exists CKD PHOS USE SMARTSET 31444 2024 02/13/2023, 0 02/11/2021 CKD HGB USE SMARTSET 78049 07/04/202407/04, 07/04/2023, 06/20/2023, Additional history exists O2 ASSESSMENT COMPLETED IN PAST YEAR FOR COPD 07/05/2024 07/05/2023 LUNG CANCER SCREENING - USE SMARTSET 46537 Completed 03/14/2022, 06/03/2020, 05/27/2020, Additional history exists Pneumococcal Vaccine: 65+ Years Completed 07/25/2022, 07/09/2020 GARDASIL-HPV IMMUNIZATION SERIES Aged Out No longer [...] Upper documented in this encounter Care Teams Program Services Planner Relationship Specialty Start Date End Date Savanah Geiger, [address] [place] [address] PCP - General Family Medicine 04/11/12 documented as of this encounter
--- OUTSIDE RECORDS SUMMARY | 2023-08-22 17:26 | External Medical Summary | Summary of Care ---
Author Name Unknown Organization [facility] Address [address] [place] [address] Phone [phone] Care Team Providers Care Bit Tripoler Name Role Phone Caseypiero Savanahsunshine Chacon DO Primary Care Provider [phone] Reason for Visit * Reason Comments Outpatient Testing Encounter Details Date Type Department Care Team Description 07/04/2023 Laboratory Laboratory, [place] [address] [place] [address] [place], Laboratory [address] [place] [address] Multiple myeloma in remission (HCC) Allergies Active Allergy Reactions Severity Noted Date Comments Calcium Carb-Cholecalciferol 016 documented as of this encounter (statuses as of 07/04/2023) Medications Medication Sig Dispensed Refills Start Date [...] as of this encounter (statuses as of 07/04/2023) Active Problems Problem Noted Date Dyslipidemia 03/29/2022 [...] Bladder cancer 04/24/2020 Coronary artery disease involving [place] heart without angina pectoris 05/22/2019 Old myocardial infarct 12/06/2018 S/p bare metal coronary artery stent Tobacco use disorder 04/16/2012 HTN, goal below 130/80 2012 GERD (gastroesophageal reflux disease) 0 2012 documented as of this encounter (statuses as of 07/04/2023) Resolved Problems Problem Noted Date Resolved Date Dehydration 02/01/2021 03/29/2022 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 Atherosclerosis of coronary artery without angin a pectoris 09/14/2018 03/29/2022 ST elevation myocardial infarction (STEMI) 03/2012/06/2018 Lung nodule 10/14/2015 03/29/2022 ST elevation myocardial infa rction (STEMI) involving other coronary artery 05/19/2015 03/20/[address] (STEMI) 01/12/2015 09/14/20 18 Myocardial infarction 02/03/2014 09/14/2018 COPD, moderate 08/27/2013 08/06/2020 Overview: Per COPD GOLD Classification Noncompliance 03/13/2013 03/21/2017 Anemia 05/03/2012 03/29/2022 COPD, severity to be determined 04/16/2012 08/27/2013 Dyslipidemia, goal LDL below 70 04/16/2012 03/29/2022 documented as of this encounter (statuses as of 07/04/2023) Immunizations Name Administration Dates Next Due COVID-19 [...] Encounters Date Type Specialty Care Team Description 07/05/2023 Office Visit Hematology Oncology [place], Luann [place] MD [address] [place] [address] 07/05/2023 Hem/Onc Treatment Hematology [place]cology [place], Chair 2 Hem Onc Scenery [address] [place] [address] 07/10/2023 Office Visit Family Medicine Savanah Geiger, [address] [place] [address] 07/14/2023 Scheduled Telephone Pharmacy [facility] Hem/Onc Tech [address] [place] [address] 07/18/2023 Laboratory Laboratory [facility] [address] [place] [address] 07/19/2023 Hem/Onc Treatment Hematology Oncology 08/02/2023 Pharmacy Pharmacy [facility] Hem/Onc [address] [place] [address] 08/11/2023 Hem/Onc Treatment Hematology Oncology H, Infusion Chair [address] [place] [address] 08/11/2023 Appointment Radiology 08/11/2023 Office Visit Vascular Surgery Robin Burleson MD [address] [place] [address] 08/23/2023 Office Visit Cardiology Brian Hager MD [address] [place] [address] 10/20/2023 Office Visit Cardiology Leda Myers PA-C [address] [place] [address] Pending Results Name Type Priority Associated Diagnoses Date /Time CBC WITH WBC DIFFERENTIAL Lab Routine Multiple myeloma in remission (HCC) 07/04/2023 10:18 AM EDT COMPREHENSIVE METABOLIC PANEL Lab Routine Multiple myeloma in remission (HCC) 07/04/2023 10:18 AM EDT IMMUNOGLOBULIN QUANTITATIVE Lab Routine Multiple myeloma in remission ([facility]) 07/04/2023 10:18 AM EDT SERUM FREE LIGHT CHAINS Lab Routine Multiple myeloma in remission ([facility]) 07/04/2023 10:18 AM EDT SERUM PROTEIN ELECTROPHORESIS REFLEX PROFILE Lab Routine Multiple myeloma in remission ([facility]) 07/04/2023 10:18 AM EDT CBC Lab Routine Multiple myeloma in remission ([facility]) 07/04/2023 10:18 AM EDT DIFFERENTIAL, AUTOMATED Lab Routine Multiple myeloma in remission ([facility]) 07/04/2023 10:18 AM EDT Scheduled Procedures Name Priority Associated Diagnoses Date/Ti [...] Vaccine (2022- season) 2023 08/28/2021, 02/18/2021, 01/28/2021 Influenza Vaccine (FLU shot) (#1) 2023 06/23/2022, 07/12/2021, 07/09/2020, Additional history exists GFR 12/19/2023 06/20/2023, 05/26, 05/23/2023, Additional history exists CKD PHOS USE SMARTSET 80372 2024 02/13/2023, 0 02/11/2021 O2 ASSESSMENT COMPLETED IN PAST YEAR FOR COPD 06/07/2024 06/07/2023 CKD HGB USE SMARTSET 67882 06/20/202406/20, 06/20/2023, 06/06/2023, Additional history exists LUNG CANCER SCREENING - USE SMARTSET 92996 Completed 03/14/2022, 06/03/2020, 05/27/2020, Additional history exists [...] this encounter Visit Diagnoses Diagnosis Multiple myeloma in remission (HCC) Multiple myeloma in remission documented in this encounter Care Teams Bit Tripoler Relationship Specialty Start Date End Date Savanah Geiger, [address] [place] [address] PCP - General Family Medicine 04/11/12 documented as of this encounter
--- OUTSIDE RECORDS SUMMARY | 2023-08-22 17:26 | External Medical Summary ---
Author Name Unknown Address Unknown Organization [id number]:[facility] - [address] [place] [address] Laboratory Report Ordering Provider Test Date Status MARY ANNE LAGUNA 07/04/2023 10:18:05 Final Observation Date Value Abnormality Reference (Units ) Status IgG 07/04/2023 10:18:05 509 Below low normal 700 -1600 (mg/dL) Final IgA 07/04/2023 10:18:05 117 70-400 (mg /dL) Final IgM 07/04/2023 10:18:05 7 Below low normal 40- 230 (mg/dL) Final Performing Location [facility] - [address] [place] [address]
--- OUTSIDE RECORDS SUMMARY | 2023-08-22 17:26 | External Medical Summary ---
Author Name Unknown Address Unknown Organization K01:[facility] [place] - [facility] [address] [facility] [address] Laboratory Report Ordering Provider Test Date Status MARY ANNE LAGUNA 07/04/2023 10:18:05 Final Observation Date Value Abnormality Reference (Units) Status Protein 10:18:05 5.5 Below low normal 6.0-8.3 (g/dL) Final Albumin/Protein.total [Pure mass fraction] in Serum or Plasma by Electrophoresis 10:18:05 3.00 Below low normal 3.30-4.40 (g/dL) Final Alpha 1 globulin/Protein.tota l [Pure mass fraction] in Serum or Plasma by Electrophoresis 10:18:05 0.26 0.10-0.30 (g/dL) Final Alpha 2 globulin/Protein.tota l [Pure mass fraction] in Serum or Plasma by Electrophoresis 10:18:05 1.01 Above high normal 0.60-1.00 (g/dL) Final Beta globulin/Protein.tota l [Pure mass fraction] in Serum or Plasma by Electrophoresis 10:18:05 0.76 Below low normal 0.80-1.30 (g/dL) Final Gamma globulin/Protein.tota l [Pure mass fraction] in Serum or Plasma by Electrophoresis 10:18:05 0.48 Below low normal 0.70-1.70 (g/dL) Final Protein Fractions [Interpretation] in Serum or Plasma by Electrophoresis Narrative 10:18:05 A paraprotein is present that has been previously identified as a monoclonal IgG lambda. Decreased gamma fraction. Paraprotein concentration is detectable, but less than 0.5 g/dL, unable to be accurately quantified by this method. Final Performing Location [facility]ORY [facility] [place] - [address] [facility] [address]
--- OUTSIDE RECORDS SUMMARY | 2023-08-22 17:26 | External Medical Summary | Summary of Care ---
Author Name Unknown Organization [facility] Address [address] [place] [address] Phone [phone] Care Team Providers Care Advertising Sales Representative Name Role Phone Savanah Geiger DO Primary Care Provider + [phone] Reason for Referral * Evaluate & Treat - Unlimited Visits (Within 10 days (routine)) - Authorized Specialty Diagnoses / Procedures Referred By Suki person Referred To Contact Ophthalmology Diagnoses Cutaneous skin tags Hordeolum externum of right upper eyelid Savanah Geiger DO [address] [place] [address] Kana Frost, DO [address] [facility] [place] [address] Referral ID Status Reason Start Date Expiration Date Visits Requested Visits Authorized [id number] Authorized Specialty Services Required 3 999 999 Question Answer Referral Priority Within 10 days (routine) Where should this appointment be scheduled? Yin Referring to: Yin Referring for: Ophthalmology Conditions Ophthalmology Conditions Other Ophthalmology (comment) Reason for Visit * Reason Comments Follow Up 6 month return Encounter Details Date Type Department Care Team Description 07/10/2023 Office Visit [facility] [address] [place] [phone] Savanah Geiger DO [address] [place] [address] Cutaneous skin tags*; Hordeolum externum of right upper eyelid; HTN, goal below 130/80; Malignant neoplasm of urinary bladder, unspecified site (HCC); Multiple myeloma not having achieved remission (HCC); Coronary artery disease involving mi'kmaq heart without angina pectoris, unspecified vessel or lesion type; Gastroesophageal reflux disease without esophagitis; Tobacco use disorder; COPD, group B, by GOLD 2017 classification ([facility]) Allergies Active Allergy Reactions Severity Noted Date Comments Calcium Carb-Cholecalciferol 016 documented as of this encounter (statuses as of 07/10/2023) Medications Medication Sig Dispensed Refills Start Date [...] MG Sublingual Tablet Sublingual (Nitrostat)Indicati ons:Atherosclerosis of mi'kmaq coronary artery of mi'kmaq heart without angina pectoris One tablet under [...] as of this encounter (statuses as of 07/10/2023) Active Problems Problem Noted Date Dyslipidemia 03/29/2022 Abdominal aortic aneurysm without ruptur e 03/03/2022 Chronic kidney disease, stage 3a 021 Overview: Per CKD protocol Dilated aortic root 10/21/2020 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 COPD, group B, by GOLD 2017 classificati on 08/03/2020 Overview: Per COPD GOLD Classification Multiple myeloma 07/07/2020 Abdominal aortic aneurysm (AAA) without rupture 05/11/2020 Aneurysm of common iliac artery 05/11/20 Aneurysm of internal iliac artery 2019 Bladder cancer 04/24/2020 Coronary artery disease involving mi'kmaq heart without angina pectoris 05/22/2019 Old myocardial infarct 12/06/2018 S/p bare metal coronary artery stent Tobacco use disorder 04/16/2012 HTN, goal below 130/80 2012 GERD (gastroesophageal reflux disease) 0 2012 documented as of this encounter (statuses as of 07/10/2023) Resolved Problems Problem Noted Date Resolved Date Dehydration 02/01/2021 03/29/2022 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 Atherosclerosis of coronary artery without angin a pectoris 09/14/2018 03/29/2022 ST elevation myocardial infarction (STEMI) 03/2012/06/2018 Lung nodule 10/14/2015 03/29/2022 ST elevation myocardial infa rction (STEMI) involving other coronary artery 05/19/2015 03/20/2017 ST elevation CA (STEMI) 01/12/2015 09/14/20 18 Myocardial infarction 02/03/2014 09/14/2018 COPD, moderate 08/27/2013 08/06/2020 Overview: Per COPD GOLD Classification Noncompliance 03/13/2013 03/21/2017 Anemia 05/03/2012 03/29/2022 COPD, severity to be determined 04/16/2012 08/27/2013 Dyslipidemia, goal LDL below 70 04/16/2012 03/29/2022 documented as of this encounter (statuses as of 07/10/2023) Immunizations Name Administration Dates Next Due COVID-19 mRNA, LNP-s, No Pre serve, 2-Dose Series (Polar) 08/28/2021,02/18/2021,01/28/2021 Pneumococcal Conjugate Vacc, 13 Valent (Prevnar) [...] Reading Time Taken Comments Blood Pressure 122/74 07/10/2023 10:45 AM EDT Pulse 68 07/10/2023 10:45 AM EDT Temperature 36.5 C (97.7 F) 07/10/2023 1 0:45 AM EDT Respiratory Rate 16 07/10/2023 10:4 5 AM EDT Oxygen Saturation - - Inhaled Oxygen Concentration - - Weight 75.3 kg (165 lb 14.4 oz) 023 10:45 AM EDT Height - - Body Mass Index 26.78 01/05/2023 8:34 AM EDT documented in this encounter Progress Notes * Savanah Geiger DO - 07/10/2023 11:01 AM EDT Subjective: Brian Salinas is a 73 year old male. Chief Complaint Patient presents with Follow Up 6 month return HPI: 73 year old male with a complicated medical hx, to include, Multiple Myeloma, CAD, s/p stent, AAA, dyslipidemia, Atrial flutter, Hypertension, GERD, hx of bladder cancer and tobacco use. Currently he is doing chemo every 2 weeks for his Multiple Myeloma. Has an appt with vascular coming up for his aneursym. Has continued to smoke He has a skin tag on the corner of his L eye and a sore right upper eyelid. This is changing his vision. He is eating okay. Continues to have pain in the R lower rib area, from his PET scan, he has rib involvement of his Multiple Myeloma PHM: Patient Active Problem List Diagnosis Code HTN, goal below 130/80 I10 GERD (gastroesophageal reflux disease) K21.9 Tobacco use disorder F17.200 S/p bare metal coronary artery stent Z95.5 Old myocardial infarct I25.2 Coronary artery disease involving mi'kmaq heart without angina pectoris I25.10 Bladder cancer ([facility]) C67.9 Abdominal aortic aneurysm (AAA) without rupture ([facility]) I71.40 Aneurysm of common iliac artery ([facility]) I72.3 Aneurysm of internal iliac artery ([facility]) I72.3 Multiple myeloma ([facility]) C90.00 COPD, group B, by GOLD 2017 classification ([facility]) J44.9 Femoral artery aneurysm ([facility]) I72.4 Dilated aortic root ([facility]) I77.810 Chronic kidney disease, stage 3a ([facility]) N18.31 Abdominal aortic aneurysm without rupture ([facility]) I71.40 Dyslipidemia E78.5 Current Outpatient Medications Medication Sig Dispense Refill [...] up to two weeks.) 60 g 1 Metoprolol Tartrate 50 MG Oral Tablet (Lopressor) [...] pain continues, call 911 75 Tablet 3 Atorvastatin Calcium 80 MG Oral [...] traMADol HCl 50 MG Oral Tablet (Ultram) TAKE 1 TABLET BY MOUTH EVERY 6 HOURS NEEDED FOR MODERATEPAIN 30 Tablet 0 Lenalidomide 10 MG Oral Capsule (Revlimid) TAKE 1 CAPSULE BY MOUTH 1 TIME A DAY FOR 14 DAYS ON THEN7 DAYS OFF 14 Capsule 0 Ondansetron HCl 8 MG Oral Tablet (Zofran) Take by mouth 1 Tablet every 8 hours as needed for Nausea. (Patient not taking: Reported on 07/10/2023) 30 Tablet 2 Prochlorperazine Maleate 10 MG Oral Tablet (Compazine) Take by mouth 1 Tablet every 6 hours as needed for Nausea. (Patient not taking: Reported on 07/10/2023) 30 Tablet 2 Acyclovir 400 MG Oral Tablet (Zovirax) TAKE 1 TABLET BY MOUTH EVERY DAY IN THE MORNING AND BEFORE BEDTIME 180 Tablet 3 No current facility-administered medications for this visit. Review of patient's allergies indicates: Allergen Reactions Calcium Carb-Cholecalciferol Objective: BP 122/74 | Pulse 68 | Temp 36.5 C (97.7 F) | Resp 16 | Wt 75.3 kg (165 lb 14.4 oz) | BMI 26.78kg/m | BSA 1.87 m Physical Exam: General: alert, healthy, and no distress Heart: regular rate & rhythm, no murmur, and no gallops Lungs: chest symmetric with normal AP diameter, no chest deformities noted, no chest wall tenderness, lungs clear to auscultation Abdomen: abdomen soft, non-tender, normal bowel sounds, and no masses or organomegaly Extremities: no edema Skin: skin tags: near the corner of his L eye, and possible stye on the R upper lid ASSESSMENT/PLAN: Cutaneous skin tags (Primary) - ADULT/PEDS OPHTHALMOLOGY/OPTOMETRY REFERRAL OP Hordeolum externum of right upper eyelid - ADULT/PEDS OPHTHALMOLOGY/OPTOMETRY REFERRAL OP HTN, goal below 130/80 Malignant neoplasm of urinary bladder, unspecified site (HCC) Multiple myeloma not having achieved remission (HCC) Coronary artery disease involving mi'kmaq heart without angina pectoris, unspecified vessel or lesion type Gastroesophageal reflux disease without esophagitis Tobacco use disorder COPD, group B, by GOLD 2017 classification (HCC) Other orders - INFLUENZA VACC, QUAD, HIGH DOSE (FLUZONE HD) Follow-up: Return in about 6 months (around 01/09/2024). | Check-out note: Optho referral. Savanah Geiger DO documented in this encounter Nursing Notes * Brigitte Cordero LPN - 07/10/2023 10:44 AM EDT The patient has been properly identified by confirmation of name and date of . Chief Complaint Patient presents with Follow Up 6 month return documented in this encounter Plan of Treatment Upcoming Encounters Date Type Specialty Care Team Description 07/14/2023 Scheduled Telephone Pharmacy [facility] Hem/Onc Tech [address] [place] [address] 07/18/2023 Laboratory Laboratory [facility] [address] [place] [address] 07/19/2023 Hem/Onc Treatment Hematology Oncology 08/01/2023 Laboratory [facility] [address] [place] [address] 08/02/2023 Pharmacy Pharmacy [facility] Hem/Onc [address] [place] [address] 08/02/2023 Hem/Onc Treatment Hematology Oncology [place], Chair [address] Hem Onc Scenery [address] [place] [address] 08/11/2023 Hem/Onc Treatment Hematology Oncology H, Infusion Chair [address] [place], [place] [id number] 08/11/2023 Appointment Radiology 08/11/2023 Office Visit Vascular Surgery Robin Burleson MD [address] [place] [address] 08/15/2023 Laboratory Laboratory [facility] [address] [place] [address] 08/16/2023 Office Visit Hematology Oncology Luann De La Cruz MD [address] [place] [address] 08/16/2023 Hem/Onc Treatment Hematology Oncology [place], Chair 3 Hem Onc Sc[address] [place] [address] 08/23/2023 Office Visit Cardiology Brian Hager MD [address] [place] [address] 08/29/2023 Laboratory Laboratory [facility] [address] [place] [address] 08/30/2023 Hem/Onc Treatment Hematology Oncology [place], Chair 7 Hem Onc Scenery [address] [place] [address] 10/20/2023 Office Visit Cardiology Leda Myers PA-C [address] [place] [address] 01/12/2024 Office Visit Family Medicine Savanah Geiger DO [address] [place] [address] Scheduled Procedures Name Priority Associated Diagnoses Date/Ti me COLONOSCOPY FLEXIBLE PROXIMAL DIAGNOSTIC Recall History of colon polyps Scheduled Referrals Name Type Priority Associated Diagnoses Orde r Schedule ADULT/PEDS OPHTHALMOLOGY/OPTOM ETRY REFERRAL OP Referral Within 10 days (routine) Cutaneous skin tags Hordeolum externum of right upper eyelid Ordered: 07/10/2023 Health Maintenance Due Date Last Done Comments [...] 2022- season) 2023 08/28/2021, 02/18/2021, 01/28/2021 GFR 01/03/2024 07/04/2023, 05/27, 06/06/2023, Additional history exists CKD PHOS USE SMARTSET 16342 2024 02/13/2023, 0 02/11/2021 CKD HGB USE SMARTSET 69908 07/04/202407/04, 07/04/2023, 06/20/2023, Additional history exists O2 ASSESSMENT COMPLETED IN PAST YEAR FOR COPD 07/05/2024 07/05/2023 LUNG CANCER SCREENING - USE SMARTSET 81342 Completed 03/14/2022, 06/03/2020, 05/27/2020, Additional history exists [...] as of this encounter Visit Diagnoses Diagnosis Cutaneous skin tags- Primary Unspecified hypertrophic and atrophic condition of skin Hordeolum externum of right upper eyelid Hordeolum externum HTN, goal below 130/80 Unspecified essential hypertension Malignant neoplasm of urinary bladder, unspecified site (HCC) Multiple myeloma not having achieved remission (HCC) Multiple myeloma, without mention of having achieved remission Coronary artery disease involving mi'kmaq heart without angina pectoris, unspecified vessel or lesion type Gastroesophageal reflux disease without esophagitis Esophageal reflux Tobacco use disorder COPD, group B, by GOLD 2017 classification (HCC) documented in this encounter Care Teams Advertising Sales Representative Relationship Specialty Start Date End Date Savanah Geiger, [address] [place] [address] PCP - General Family Medicine 04/11/12 documented as of this encounter"
--- OUTSIDE RECORDS SUMMARY | 2023-08-22 17:26 | External Medical Summary ---
Author Name Unknown Address Unknown Organization K01:LABORATORY [facility] [place] - [address] [place] [address] Laboratory Report Ordering Provider Test Date Status MARY ANNE LAGUNA 07/18/2023 10:42:10 Final Baseline then every 2-3 thuy hs Observation Date Value Abnormality Reference (Units ) Status TSH 07/18/2023 10:42:10 2.16 0.27-4.20 (uIU/mL) Final Performing Location [facility]ORY [facility] - [address] [place] [address]
--- OUTSIDE RECORDS SUMMARY | 2023-08-22 17:26 | External Medical Summary | Summary of Care ---
Author Name Unknown Organization [facility] Address [address] [place] [address] Phone [phone] Care Team Providers Care Staff Pharmacist Hospital Name Role Phone CaseySavanah harry Oswaldo JIMÉNEZ Primary Care Provider [phone] Reason for Visit * Reason Comments Outpatient Testing Encounter Details Date Type Department Care Team (Late st Contact Info) Description 07/18/2023 9:30 AM EDT Laboratory Laboratory, [place] [address] [place] [address] [place] [address] [place] [address] Multiple myeloma not having achieved remission (HCC) Allergies Active Allergy Reactions Criticality Noted Date Comments Calcium Carb-Cholecalciferol 016 documented as of this encounter (statuses as of 07/18/2023) Medications Medication Sig Dispensed Refills Start Date [...] MG Sublingual Tablet Sublingual (Nitrostat)Indicati ons:Atherosclerosis of upper mattaponi coronary artery of upper mattaponi heart without angina pectoris One tablet under [...] as of this encounter (statuses as of 07/18/2023) Active Problems Problem Noted Date Diagnosed Date [...] cancer 04/24/2020 Coronary artery disease invo lving upper mattaponi heart without angina pectoris 05/22/2019 Old myocardial infarct 12/06/2018 S/p bare metal coronary artery stent 01/12/2015 Tobacco use disorder 04/16/2012 HTN, goal below 130/80 2012 GERD (gastroesophageal reflux disease) 2 documented as of this encounter (statuses as of 07/18/2023) Resolved Problems Problem Noted Date Diagnosed Date [...] as of this encounter (statuses as of 07/18/2023) Immunizations Name Administration Dates Next Due COVID-19 [...] Care Team (Late st Contact Info) Description 07/19/2023 9:30 AM EDT Hem/Onc Treatment Hematology/Oncology Treatment, [address] [place] [address] [place], Chair [address] [place] [address] 07/21/2023 6:00 PM EDT Scheduled Telephone Pharmacy Hematology Oncology apper [place] [address] [place] [address] [facility] Hem/Onc Tech [facility] [place] [address] 08/01/2023 11:00 AM EST Laboratory Laboratory, [address] [phone] [address] [address] 08/02/2023 9:00 AM EST Pharmacy Pharmacy Hematology Oncology [address] [address] [facility] Hem/Onc [address] [place] [address] 08/02/2023 11:30 AM EST Hem/Onc Treatment Hematology/Oncology Treatment, [address], [place] [address] Tresa, Chair [address] Hem On[address] [place], [place] [address] 08/11/2023 9:00 AM EST Hem/Onc Treatment Hematology Oncology [facility], [address] [address] H, Infusion Chair [address] [place], [place] [phone] 08/11/2023 10:30 AM EST Appointment Radiology, [place] [address] [place] [address] 08/11/2023 12:00 PM EST Office Visit Vascular Surg [facility], [place] [address] [place] [address] Robin Burleson MD [address] [place] [address] 08/15/2023 11:00 AM EST Laboratory Laboratory, [place] [address] [place] [phone] [facility] [address] [place] [address] 08/16/2023 9:30 AM EST Office Visit Hematology/Oncology [facility] [address] [place] [address] Luann De La Cruz MD [address] [place] [address] 08/16/2023 10:00 AM EST Hem/Onc Treatment Hematology/Oncology Treatment, [place] [address] [place] [address] T[place], Chair 3 Hem Onc [facility] [address] [facility] [place] [address] 08/23/2023 3:30 PM EST Office Visit Cardiology, [facility] [address] [place] [address] Brian Hager MD [address] [place] [address] 08/29/2023 11:00 AM EST Laboratory Laboratory, [place] [address] [place] [phone] [facility] [address] [place] [address] 08/30/2023 11:30 AM EST Hem/Onc Treatment Hematology/Oncology Treatment, [place] [address] [place] [address] [place], Chair 7 Hem Onc Scenery [address] [place] [address] 10/20/2023 10:30 AM EST Office Visit Cardiology, [facility] [address] [place] [address] Leda Myers PA-C [address] [place] [address] 01/12/2024 10:10 AM EDT Office Visit [facility] [address] [place] [address] Savanah Geiger, [address] [place] [address] Pending Results Name Type Priority Associated Diagnoses Date /Time TSH WITH FREE T4 IF INDICATED Lab STAT Multiple myeloma not having achieved remission (HCC) 07/18/2023 10:42 AM EDT COMPREHENSIVE METABOLIC PANEL Lab Routine Multiple myeloma not having achieved remission (HCC) 07/18/2023 10:42 AM EDT CBC WITH WBC DIFFERENTIAL Lab Routine Multiple myeloma not having achieved remission (HCC) 07/18/2023 10:42 AM EDT CBC Lab Routine Multiple myeloma not having achieved remission (HCC) 07/18/2023 10:42 AM EDT DIFFERENTIAL, AUTOMATED Lab Routine Multiple myeloma not having achieved remission (HCC) 07/18/2023 10:42 AM EDT Scheduled Procedures Name Priority Associated Diagnoses Date/Ti me COLONOSCOPY FLEXIBLE PROXIMAL DIAGNOSTIC Recall History of colon polyps Health Maintenance Due Date Last Done Comments Albumin/Creatinine Ratio 02/13/1970 Alpha-1 Antitrypsin 02/13/1970 Hepatitis C Screening 02/13/1970 DTaP,Tdap,and Td Vaccines (1 - Tdap) 02/13/1971 Zoster Vaccines (1 of 2) 02/13/1971 DISCUSS TOBACCO CESSATION (REFER TO SMARTSET #6618) 07/12/2018 07/12/2017 (Course Completed) COLONOSCOPY-EVERY 3 YRS AGES 18-100 05/23/2020 05/23/2017 Depression Screening 07/30/2021 07/30/2020, 07/12/2017 (Declined) COVID-19 Vaccine ( season) 2023 08/28/2021, 02/18/2021, 01/28/2021 GFR 01/03/2024 07/04/2023, 05/27, 06/06/2023, Additional history exists CKD PHOS USE SMARTSET 12394 2024 02/13/2023, 0 02/11/2021 CKD HGB USE SMARTSET 16780 07/04/202407/04, 07/04/2023, 06/20/2023, Additional history exists O2 ASSESSMENT COMPLETED IN PAST YEAR FOR COPD 07/05/2024 07/05/2023 LUNG CANCER SCREENING - USE SMARTSET 34718 Completed 03/14/2022, 06/03/2020, 05/27/2020, Additional history exists [...] remission documented in this encounter Care Teams Staff Pharmacist Hospital Relationship Specialty Start Date End Date Savanah Geiger DO [address] [facility] [place] [address] PCP - General Family Medicine 04/11/12 documented as of this encounter
--- OUTSIDE RECORDS SUMMARY | 2023-08-22 17:26 | External Medical Summary ---
Author Name Unknown Address Unknown Organization K01:LABORATORY [facility] [place] [facility] - [address] [facility] [place] [address] Laboratory Report Ordering Provider Test Date Status MARY ANNE LAGUNA 07/04/2023 10:18:05 Final Observation Date Value Abnormality Reference (Units ) Status BUN 07/04/2023 10:18:05 25 Above high normal 6-20 (mg/dL) Final Creatinine 07/04/2023 10:18:05 1.4 Above high normal 0.6-1.2 (mg/dL) Final Glomerular filtration rate/1.73 sq M.predicted [Volume Rate/Area] in Serum, Plasma or Blood by Creatinine-based formula (CKD-EPI) 07/04/2023 10:18:05 53 Below low normal >=60 (mL/min) Final eGFR is calculated based on the CKD-EPI 2020 equation SODIUM 07/04/2023 10:18:05 138 135-146 (m mol/L) Final Potassium 07/04/2023 10:18:05 4.3 3.5-5.1 (m mol/L) Final Cl 07/04/2023 10:18:05 105 98-107 (mm ol/L) Final CO2 07/04/2023 10:18:05 23 22-32 (mmo l/L) Final Anion gap 07/04/2023 10:18:05 10 7-15 (mmol /L) Final Glucose 07/04/2023 10:18:05 103 70-120 (mg /dL) Final Albumin 07/04/2023 10:18:05 3.8 3.8-5.0 (g /dL) Final AST (Aspartate aminotransferase) 07/04/2023 10:18:05 8 Below low normal 10-50 (U/L) Final Alk Phos 07/04/2023 10:18:05 104 35-130 (U/ L) Final Bilirubin, Total 07/04/2023 10:18:05 0.3 <=1 .2 (mg/dL) Final Calcium 07/04/2023 10:18:05 8.5 8.4-10.2 ( mg/dL) Final Protein 07/04/2023 10:18:05 5.5 Below low normal 6.0 -8.3 (g/dL) Final ALT (Alanine aminotransferase) 07/04/2023 10:18:05 18 10-50 (U/L) Andrzej caal Performing Location LABORATORY [facility] - [facility] [address] [facility] [address]
--- OUTSIDE RECORDS SUMMARY | 2023-08-22 17:26 | External Medical Summary | Summary of Care ---
Author Name Unknown Organization [facility] Address [address] [place] [address] Phone [phone] Care Team Providers Care Floor Helper Name Role Phone Savanah Geiger DO Primary Care Provider Reason for Visit * Reason Comments eRx-Medication Refill Encounter Details Date Type Department Care Team Description 06/29/2023 Refill Hematology/Oncology Treatment, [place] [address] [place] [id number] Luz Elena North MD [address] [place] [address] Multiple myeloma not having achieved remission (HCC) Allergies Active Allergy Reactions Severity Noted Date Comments Calcium Carb-Cholecalciferol 016 documented as of this encounter (statuses as of 07/06/2023) Medications Medication Sig Dispensed Refills Start Date [...] Sublingual Tablet Sublingual (Nitrostat)Indic ations:Atheroscl erosis of [place] coronary artery of [place] heart without angina pectoris One tablet under [...] 06/05/2023 Active Lenalidomide 10 MG Oral Capsule (Revlimid)Indica tions:Multiple myeloma not having achieved remission (HCC) TAKE 1 CAPSULE BY MOUTH 1 TIME A DAY FOR 14 DAYS ON THEN 7 DAYS OFF 14 Capsule 0 07/06/2023 Active Lenalidomide 10 MG Oral Capsule (Revlimid)Indica tions:Multiple myeloma not having achieved remission (HCC) TAKE 1 CAPSULE BY MOUTH 1 TIME A DAY FOR 14 DAYS ON THEN 7 DAYS OFF 14 Capsule 0 06/14/2023 3 Discontinued documented as of this encounter (statuses as of 07/06/2023) Active Problems Problem Noted Date Dyslipidemia 03/29/2022 [...] Bladder cancer 04/24/2020 Coronary artery disease involving [place] heart without angina pectoris 05/22/2019 Old myocardial infarct 12/06/2018 S/p bare metal coronary artery stent Tobacco use disorder 04/16/2012 HTN, goal below 130/80 2012 GERD (gastroesophageal reflux disease) 0 2012 documented as of this encounter (statuses as of 07/06/2023) Resolved Problems Problem Noted Date Resolved Date Dehydration 02/01/2021 03/29/2022 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 Atherosclerosis of coronary artery without angin a pectoris 09/14/2018 03/29/2022 ST elevation myocardial infarction (STEMI) 03/2012/06/2018 Lung nodule 10/14/2015 03/29/2022 ST elevation myocardial infa rction (STEMI) involving other coronary artery 05/19/2015 03/20/2017 ST elevation [place] (STEMI) 01/12/2015 09/14/20 18 Myocardial infarction 02/03/2014 09/14/2018 COPD, moderate 08/27/2013 08/06/2020 Overview: Per COPD GOLD Classification Noncompliance 03/13/2013 03/21/2017 Anemia 05/03/2012 03/29/2022 COPD, severity to be determined 04/16/2012 08/27/2013 Dyslipidemia, goal LDL below 70 04/16/2012 03/29/2022 documented as of this encounter (statuses as of 07/06/2023) Immunizations Name Administration Dates Next Due COVID-19 mRNA, LNP-s, No Pre serve, 2-Dose Series ([employer]) 08/28/2021,02/18/2021,01/28/2021 Pneumococcal Conjugate Vacc, 13 Valent (Prevnar) [...] encounter Miscellaneous Notes * Telephone Encounter - Sonya Melgoza LPN - 07/06/2023 11:00 AM EDTSigned Prescriptions: Disp Refills Lenalidomide 10 MG Oral Capsule (Revlimid) 14 Cap*0 Sig: TAKE 1 CAPSULE BY MOUTH 1 TIME A DAY FOR 14 DAYS ON THEN 7 DAYS OFFAuthorizing Provider: LUZ ELENA NORTH AF * Telephone Encounter - Sarahy Mcallister RN - 07/06/2023 9:07 AM EDT Prescriber survey complete, auth #[id number] * Telephone Encounter - Interface, E-Rx Ss Inbound - 07/03/2023 11:48 AM EDT Pending Prescriptions: Disp Refills Lenalidomide 10 MG Oral Capsule (Revlimid)* 0 Sig: TAKE 1 CAPSULE BY MOUTH 1 TIME A DAY FOR 14 DAYS ON THEN 7 DAYS OFF documented in this encounter Plan of Treatment Upcoming Encounters Date Type Specialty Care Team Description 07/10/2023 Office Visit Family Medicine Savanah Geiger, [address] [place] [address] 07/14/2023 Scheduled Telephone Pharmacy Magan Benjamin Hem/Onc Tech [address] [place] [address] 07/18/2023 Laboratory Laboratory [facility] [address] [place] [address] 07/19/2023 Hem/Onc Treatment Hematology Oncology 08/01/2023 Laboratory Laboratory [facility] [address] [place] [address] 08/02/2023 Pharmacy Pharmacy [facility] [place] Hem/Onc [address] [place] [address] 08/02/2023 Hem/Onc Treatment Hematology Oncology Tresa, Chair 5 Hem Onc Sc[address]ery [address] [place] [address] 08/11/2023 Hem/Onc Treatment Hematology Oncology H, Infusion Chair [address] [place] [address] 08/11/2023 Appointment Radiology 08/11/2023 Office Visit Vascular Surgery Robin Burleson MD [address] [place] [address] 08/15/2023 Laboratory Laboratory [facility] [address] [place] [address] 08/16/2023 Office Visit Hematology Oncology Luz Elena North MD [address] [place], [place] [address] 08/16/2023 Hem/Onc Treatment Hematology Oncology Tresa, Chair 3 Hem Onc Scen[address] [place], [place] [address] 08/23/2023 Office Visit Cardiology Brian Hager MD [address] [place] [address] 08/29/2023 Laboratory [facility] [address] [facility] [place] [address] 08/30/2023 Hem/Onc Treatment Hematology Oncology [place], Chair 7 Hem Onc Scenery [address] [place] [address] 10/20/2023 Office Visit Cardiology Leda Myers PA-C [address] [place] [address] Scheduled Procedures Name Priority Associated Diagnoses Date/Ti [...] Additional history exists CKD PHOS USE SMARTSET 48106 2024 02/13/2023, 0 02/11/2021 CKD HGB USE SMARTSET 23750 07/04/202407/04, 07/04/2023, 06/20/2023, Additional history exists O2 ASSESSMENT COMPLETED IN PAST YEAR FOR COPD 07/05/2024 07/05/2023 LUNG CANCER SCREENING - USE SMARTSET 42826 Completed 03/14/2022, 06/03/2020, 05/27/2020, Additional history exists [...] remission documented in this encounter Care Teams Floor Helper Relationship Specialty Start Date End Date Savanah Geiger, [address] [place] [address] PCP - General Family Medicine 04/11/12 documented as of this encounter
--- OUTSIDE RECORDS SUMMARY | 2023-08-22 17:26 | External Medical Summary | Summary of Care ---
Author Name Unknown Organization [facility] Address [address] [place] [address] Phone [phone] Care Team Providers Care Women'S Apparel Salesperson Name Role Phone Savanah Geiger DO Primary Care Provider Reason for Visit * Reason Comments Chemotherapy Chemo/recheck Encounter Details Date Type Department Care Team Description 07/05/2023 Office Visit Hematology/Oncology [facility] [place] [address] [place] [address] Luann De La Cruz MD [address] [place] [address] Multiple myeloma, remission status unspecified (HCC)* Allergies Active Allergy Reactions Severity Noted [...] MG Sublingual Tablet Sublingual (Nitrostat)Indicati ons:Atherosclerosis of [place] coronary artery of [place] heart without angina pectoris One tablet under [...] Bladder cancer 04/24/2020 Coronary artery disease involving [place] heart without angina pectoris 05/22/2019 Old myocardial [...] other coronary artery 05/19/2015 03/20/2017 ST elevation [place] (STEMI) 01/12/2015 09/14/20 18 Myocardial infarction 02/03/2014 [...] Sign Reading Time Taken Comments Blood Pressure 138/92 07/05/2023 10:07 AM EDT Pulse 66 07/05/2023 10:07 AM EDT Temperature 36.8 C (98.3 F) 07/05/2023 10:07 AM E DT Respiratory Rate 16 07/05/2023 10:07 AM EDT Oxygen Saturation 98% 07/05/2023 10:07 AM EDT Inhaled Oxygen Concentration - - Weight 77.4 kg (170 lb 9.6 oz) 07/05/2023 10:07 AM EDT Height - - Body Mass Index 27.54 01/05/2023 8:34 AM EDT documented in this encounter Progress Notes * Luann De La Cruz MD - 07/05/2023 10:24 AM EDT Outpatient Consult Note Data Source: Patient, Epic record. Data Source: Patient, Epic record. 07/05/2023 10:24 AM Brian Potternaya [id number] 73 year old Patient Encounter: [facility] Cancer Diagnosis: - multiple myeloma, IgG lambda R-ISS Staging: III - bladder tumor. 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 He was treated iaunjwr6208/14/2020 and received last dose of Velcade on [...] diagnosis. The block is being sent o [facility] for ancillary studies and the testing report [...] following Dr. Harris's for bladder cancer. He had last cystoscopy done on 12/08/2021. He continued receiving 3 weeks BCG every 6 months Interval History: Overall clinically he is doing well without any new symptoms of complain. Patient denies any headache, dizziness, blurred vision, chest pain, shortness breath palpitation abdominal pain or distention, bleeding, bruising, nausea, vomiting, fever, night sweats, weight loss, hematuria, hematochezia. His appetite is good and no new complain of any new bone pain. LABS/IMAGING: Results for orders placed or performed in visit on 07/04/23 COMPREHENSIVE METABOLIC PANEL Result Value Ref Range BUN 25 (H) 6 - 20 mg/dL Creatinine 1.4 (H) 0.6 - 1.2 mg/dL Estimated Glomerular Filtration Rate 53 (L) >=60 mL/min Sodium 138 135 - 146 mmol/L Potassium 4.3 3.5 - 5.1 mmol/L Chloride 105 98 - 107 mmol/L CO2 23 22 - 32 mmol/L Anion Gap 10 7 - 15 mmol/L Glucose 103 70 - 120 mg/dL Albumin 3.8 3.8 - 5.0 g/dL AST 8 (L) 10 - 50 U/L Alkaline Phosphatase 104 35 - 130 U/L Bilirubin, Total 0.3 <=1.2 mg/dL Calcium 8.5 8.4 - 10.2 mg/dL Protein 5.5 (L) 6.0 - 8.3 g/dL ALT 18 10 - 50 U/L IMMUNOGLOBULIN QUANTITATIVE Result Value Ref Range IgG 509 (L) 700 - 1,600 mg/dL IgA 117 70 - 400 mg/dL IgM 7 (L) 40 - 230 mg/dL SERUM FREE LIGHT CHAINS Result Value Ref Range Calera Free Light Chains, Serum 17.62 3.30 - 19.40 mg/L Lambda Free Light Chains, Serum 18.66 5.71 - 26.30 mg/L Calera Lambda Free Light Chains Ratio 0.94 0.26 - 1.65 CBC Result Value Ref Range WBC 11.51 (H) 4.00 - 10.80 K/uL RBC 3.59 4.50 - 5.25 M/uL HGB 11.3 (L) 14.0 - 16.8 g/dL HCT 37.3 (L) 40.0 - 48.4 % MCV 103.9 82.0 - 99.5 fL MCH 31.5 27.0 - 34.0 pg MCHC 30.3 32.0 - 36.0 g/dL RDW 16.1 11.5 - 15.5 % PLT 248 140 - 400 K/uL MPV 12.2 6.6 - 11.1 fL nRBCs 0 <=0 /100 WBCs DIFFERENTIAL, AUTOMATED Result Value Ref Range WBC 11.51 (H) 4.00 - 10.80 K/uL Neutrophils % 74.2 40.0 - 75.0 % Lymphocytes % 9.6 (L) 18.0 - 42.0 % Monocytes % 11.6 (H) 1.0 - 11.0 % Eosinophils % 2.9 0.0 - 6.0 % Basophils % 0.4 0.0 - 2.0 % Immature Granulocytes % 1.3 0.0 - 2.0 % Absolute Neutrophils 8.53 (H) 1.80 - 7.70 K/uL Absolute Lymphocytes 1.11 1.00 - 4.80 K/ul Absolute Monocytes 1.34 (H) 0.00 - 1.10 K/uL Absolute Eosinophils 0.33 0.00 - 0.70 K/uL Absolute Basophils 0.05 0.00 - 0.20 K/uL Absolute Immature Granulocytes 0.15 0.00 - 0.20 K/uL *Note: Due to a large number of results and/or encounters for the requested time period, some results have not been displayed. A complete set of results can be found in Results Review. All his blood tests are in acceptable range with normal lambda light chain. REVIEW OF SYSTEMS: General: No [...] bleeding Genitourinary: Denies Hematuria or dysuria Musculoskeletal: No bone pain Skin: No skin rash or lesions noted Neurologic: No numbness, weakness, neuropathic pain or change in cognitive function Psychiatric: No [...] as needed for Nausea. 30 Tablet 2 Prochlorperazine Maleate 10 MG Oral Tablet (Compazine) Take by mouth 1 Tablet every 6 hours as needed for Nausea. 30 Tablet 2 Metoprolol Tartrate 50 MG [...] tablet under tongue if needed forchest pain. January repeat 3 times. If chest pain continues, [...] status: Some Days Packs/day: 1.00 Years: 40.00 Pack years: 40.00 Types: Cigarettes Last attempt to quit: 04/16/2020 Years since quittin.2 Passive exposure: Current Smokeless tobacco: Never Vaping Use Vaping Use: Never used Substance Use Topics Alcohol use: No Comment: chronic alcoholic, sober for years now Drug use: Yes Types: Marijuana Comment: 2 times a day Review of patient's allergies indicates: Allergen Reactions Calcium Carb-Cholecalciferol PHYSICAL EXAMINATION: General Appearance: Healthy appearing patient in no acute distress BP 138/92 (BP Site: Left Arm, BP Position: Sitting, BP Cuff Size: Regular) | Pulse 66 | Temp 36.8 C (98.3 F) (Tympanic) | Resp 16 | Wt 77.4 kg (170 lb 9.6 oz) | SpO2 98% | BMI 27.54 kg/m | BSA1.9 m Vitals reviewed. HEENT: No oral or [...] Extremeties: Good pulses bilaterally, no peripheral edema. Skin: Normal skin tone with no rash, petechiae, ecchymosis noted. Musculoskeletal: No pain on palpation over bony prominence, no edema, no evidence of gout, no jointor bony deformity ASSESSMENT: 73-year-old presented with hematuria and was [...] IgG level. Treatment was resumed on 12/06/2022. Overall clinically he is doing well without any new symptoms complain. Tolerating current treatmentvery well without any side effects toxicity. He just completed current cycle of Revlimid. His bloodcounts and light chain levels are in acceptable range. Discussed with the patient about diagnosis reviewed all the available blood test result with him. PLAN: Continue current treatment including combination of Revlimid plus Velcade and Decadron. He will return clinic for follow-up in 6 weeks with a blood tests The patient voiced understanding of all of [...] Nursing Notes * Wanda Silva CMA - 07/05/2023 10:08 AM EDT Patient identifed by name and birthdate Do you have any concerns about pain management for today's visit? Yes. Patient instructed to discuss pain concerns with provider during the visit today Living Will or Advance Directive for Health Care as noted on the problem list. [facility] is a way you can talk to your provider on line through e-mail. Would you like to sign up? I can activate it for you? ALREADY ACTIVE Filed Vitals: 07/05/23 1007 BP: 138/92 Pulse: 66 Resp: 16 Temp: 36.8 C (98.3 F) TempSrc: Tympanic SpO2: 98% Weight: 77.4 kg (170 lb 9.6 oz) Patient was instructed to not get up [...] Family Medicine Savanah Geiger DO [address] [place], [place] [id number] 07/14/2023 Scheduled Telephone Pharmacy Magan Benjamin Hem/Onc Tech [address] [place] [address] 07/18/2023 Laboratory Laboratory [facility] [address] [place] [address] 07/19/2023 Hem/Onc Treatment Hematology Oncology 08/02/2023 Pharmacy Pharmacy [facility] [place] Hem/Onc [address] [place] [address] 08/02/2023 Hem/Onc Treatment Hematology Oncology Tresa, Chair 5 Hem Onc Scenery [address] [place] [address] 08/11/2023 Hem/Onc Treatment Hematology Oncology H, Infusion Chair [address] [place] [address] 08/11/2023 Appointment Radiology 08/11/2023 Office Visit Vascular Surgery Robin Burleson MD [address] [place] [address] 08/23/2023 Office Visit Cardiology Brian Hager MD [address] [place] [address] 08/30/2023 Hem/Onc Treatment Hematology Oncology Tresa, Chair 7 Hem Onc Scenery [address] [place] [address] 10/20/2023 Office Visit Cardiology Leda Myers PA-C [address] [place] [address] Scheduled Orders Name Type Priority Associated Diagnoses Orde r Schedule CBC WITH WBC DIFFERENTIAL Lab Routine Multiple myeloma, remission status unspecified (HCC) Expected: 09/04/2023, Expires: 02/20/2024 COMPREHENSIVE METABOLIC PANEL Lab Routine Multiple myeloma, remission status unspecified (HCC) Expected: 09/04/2023, Expires: 02/20/2024 IMMUNOGLOBULIN QUANTITATIVE Lab Routine Multiple myeloma, remission status unspecified (HCC) Expected: 09/04/2023, Expires: 02/20/2024 SERUM FREE LIGHT CHAINS Lab Routine Multiple myeloma, remission status unspecified (HCC) Expected: 09/04/2023, Expires: 02/20/2024 SERUM PROTEIN ELECTROPHORESIS REFLEX PROFILE Lab Routine Multiple myeloma, remission status unspecified (HCC) Expected: 09/04/2023, Expires: 02/20/2024 Scheduled Procedures Name Priority Associated Diagnoses Date/Ti [...] - 2022- season) 2023 08/28/2021, 02/18/2021, 01/28/2021 Influenza Vaccine (FLU shot) (#1) 2023 06/23/2022, 07/12/2021, 07/09/2020, Additional history exists GFR 01/03/2024 07/04/2023, 05/27, 06/06/2023, Additional history exists CKD PHOS USE SMARTSET 73486 2024 02/13/2023, 0 02/11/2021 O2 ASSESSMENT COMPLETED IN PAST YEAR FOR COPD 06/07/2024 07/05/2023 CKD HGB USE SMARTSET 45399 07/04/202407/04, 07/04/2023, 06/20/2023, Additional history exists LUNG CANCER SCREENING - USE SMARTSET 01256 Completed 03/14/2022, 06/03/2020, 05/27/2020, Additional history exists [...] Primary documented in this encounter Care Teams Women'S Apparel Salesperson Relationship Specialty Start Date End Date Savanah Geiger, DO [address] [place] [address] PCP - General Family Medicine 04/11/12 documented as of this encounter"
--- OUTSIDE RECORDS SUMMARY | 2023-08-22 17:26 | External Medical Summary | Summary of Care ---
Author Name Unknown Organization [facility] Address [address] [place] [address] Phone [phone] Care Team Providers Care Lead Ingot Molder Name Role Phone GriffinSavanah mcbride Oswaldo JIMÉNEZ Primary Care Provider Encounter Details Date Type Department Care Team Description 07/04/2023 Telephone Hematology/Oncology [facility] [address] [place] [address] Luann De La Cruz MD [address] [place] [address] Allergies Active Allergy Reactions Severity Noted Date [...] MG Sublingual Tablet Sublingual (Nitrostat)Indicati ons:Atherosclerosis of [place] coronary artery of [place] heart without angina pectoris One tablet under [...] Bladder cancer 04/24/2020 Coronary artery disease involving [place] heart without angina pectoris 05/22/2019 Old myocardial [...] other coronary artery 05/19/2015 03/20/2017 ST elevation [place] (STEMI) 01/12/2015 09/14/20 18 Myocardial infarction 02/03/2014 [...] Miscellaneous Notes * Telephone Encounter - Fernanda Hernandez, fryer operator - 07/04/2023 1:10 PM EDT MEDICATION THERAPY MANAGEMENT LENALIDOMIDE TREATMENT STATUS NOTE Brian Brad [id number] Patient Phone Numbers Communication: SHANTA Truong Treatment: Medication: Lenalidomide (Revlimid) Indication: multiple myeloma Dose: 10mg daily D1-14 every 21 days Administration: +/- food Start Date: 04/01/22 Primary Geopolitics Teacher/Oncologist: Dr. De La Cruz [facility] called to request lenalidomide Rx. SANJAY Shipley [facility] 07/04/23,1:10 PM Time Spent on Encounter: < 5 minutes Encounter Group: Hematology Encounter Interventions Item Category: Oral Chemotherapy Lenalidomide documented in this encounter Plan of Treatment Upcoming Encounters Date Type Specialty Care Team Description 07/05/2023 Office Visit Hematology Oncology Luann De La Cruz MD [address] [place] [address] 07/05/2023 Hem/Onc Treatment Hematology Oncology Tresa, Chair 2 Hem Onc Scenery [address] [place] [address] 07/10/2023 Office Visit Family Medicine Savanah Geiger DO [address] [place] [address] 07/14/2023 [facility] [address] [place] [address] 07/18/2023 Laboratory Laboratory [facility] [address] [place] [address] 07/19/2023 Hem/Onc Treatment Hematology Oncology 08/02/2023 Pharmacy Pharmacy [facility] Hem/Onc [address] [place] [address] 08/11/2023 Hem/Onc Treatment Hematology Oncology H, Infusion Chair [address] [place] [address] 08/11/2023 Appointment Radiology 08/11/2023 Office Visit Vascular Surgery Robin Burleson MD [address] [place] [address] 08/23/2023 Office Visit Cardiology Brian Hager MD [address] [place] [address] 10/20/2023 Office Visit Cardiology Leda Myers PA-C [address] [place] [address] Scheduled Procedures Name Priority Associated Diagnoses Date/Ti [...] Additional history exists CKD PHOS USE SMARTSET 42231 2024 02/13/2023, 0 02/11/2021 O2 ASSESSMENT COMPLETED IN PAST YEAR FOR COPD 06/07/2024 06/07/2023 CKD HGB USE SMARTSET 23768 06/20/202406/20, 06/20/2023, 06/06/2023, Additional history exists LUNG CANCER SCREENING - USE SMARTSET 64280 Completed 03/14/2022, 06/03/2020, 05/27/2020, Additional history exists [...] Primary documented in this encounter Care Teams Lead Ingot Molder Relationship Specialty Start Date End Date Savanah Geiger, [address] [place] [address] PCP - General Family Medicine 04/11/12 documented as of this encounter
--- OUTSIDE RECORDS SUMMARY | 2023-08-22 17:26 | External Medical Summary | Summary of Care ---
Author Name Unknown Organization [facility] Address [address] [place] [address] Phone [phone] Care Team Providers Care Shopper Insights Manager Name Role Phone Savanah Geiger DO Primary Care Provider + [phone] Reason for Visit * Reason Comments Chemotherapy Velcade * Episode Based Medications (Routine) - Authorized Specialty Diagnoses / Procedures Referred By Contnataliia t Referred To Contact Diagnoses Multiple myeloma not having achieved remission (HCC) Procedures PA INJ., VELCADE 0.1 MG Luann De La Cruz MD [address] [place] [address] Anc Hem/Onc Scenery Tresa [address] [place] [phone] Referral ID Status Reason Start Date Expiration Date V isits Requested Visits Authorized [id number] Authorized 02/22/2022 09/24/2099 99 99 Encounter Details Date Type Department Care Team Description 06/21/2023 Hem/Onc Treatment Hematology/Oncology Treatment, [place] [address] [place] [phone] Tresa, Chair 8 Hem Onc Scenery [address] [place] [address] Multiple myeloma not having achieved remission (HCC)*; Encounter for antineoplastic chemotherapy Allergies Active Allergy Reactions Severity Noted Date Comments Calcium Carb-Cholecalciferol 016 documented as of this encounter (statuses as of 06/21/2023) Medications Medication Sig Dispensed Refills Start Date [...] MG Sublingual Tablet Sublingual (Nitrostat)Indicati ons:Atherosclerosis of [place] coronary artery of [place] heart without angina pectoris One tablet under [...] as of this encounter (statuses as of 06/21/2023) Active Problems Problem Noted Date Dyslipidemia 03/29/2022 [...] Bladder cancer 04/24/2020 Coronary artery disease involving [place] heart without angina pectoris 05/22/2019 Old myocardial infarct 12/06/2018 S/p bare metal coronary artery stent Tobacco use disorder 04/16/2012 HTN, goal below 130/80 2012 GERD (gastroesophageal reflux disease) 0 2012 documented as of this encounter (statuses as of 06/21/2023) Resolved Problems Problem Noted Date Resolved Date [...] as of this encounter (statuses as of 06/21/2023) Immunizations Name Administration Dates Next Due COVID-19 mRNA, LNP-s, No Pre serve, 2-Dose Series (OneTwoTrip) 08/28/2021,02/18/2021,01/28/2021 Pneumococcal Conjugate Vacc, 13 Valent (Prevnar) [...] Sign Reading Time Taken Comments Blood Pressure 112/70 06/21/2023 10:07 AM EDT Pulse 64 06/21/2023 10:07 AM EDT Temperature 36.3 C (97.3 F) 06/21/2023 10:07 AM E DT Respiratory Rate 18 06/21/2023 10:07 AM EDT Oxygen Saturation - - Inhaled Oxygen Concentration - - Weight - - Height - - Body Mass Index - - documented in this encounter Nursing Notes * Sarah Rivera RN - 06/21/2023 10:14 AM EDT Chair 12 Chemo agents Velcade Appetite good Nausea/Vomiting none Diarrhea none Constipation none Mucositis none Fatigue energy is good Bleeding none Infection none Rash none Numbness tingling none Pain none Radiation none ABN Labs WNL for treatment today - starts his revlimid cycle tomorrow. Alt in Tx: none Return in 2 weeks Functional status at today's visit: Fully active, able to carry on all pre-disease performance without restriction The drug name, dose, infusion volume, rate and route of administration, expiration date and time, appearance and physical integrity of the drug and sequencing of drug administration (as applicable) were verified by me and second sign-in RN. Patient was assessed for symptoms or adverse side effects during treatment. documented in this encounter Plan of Treatment Upcoming Encounters Date Type Specialty Care Team Description 07/03/2023 Hem/Onc Treatment Hematology Oncology A, Infusion Chair [address] [place] [address] 07/03/2023 Appointment Radiology 07/03/2023 Office Visit Vascular Surgery Robin Burleson MD [address] [place] [address] 07/04/2023 Laboratory Laboratory [place], Laboratory [address] [place] [address] 07/05/2023 Office Visit Hematology Oncology Luann De La Cruz MD [address] [place] [address] 07/05/2023 Hem/Onc Treatment Hematology Oncology [place], Chair 5 Hem Onc Scenery [address] [facility] [place] [address] 07/10/2023 Office Visit Family Medicine Savanah Geiger [address] [place] [address] 07/14/2023 Scheduled Telephone Pharmacy [facility] Hem/Onc Tech [address] [place] [address] 07/18/2023 Laboratory Laboratory [place], Laboratory [address] [place] [address] 07/19/2023 Hem/Onc Treatment Hematology Oncology 08/02/2023 Pharmacy Pharmacy [facility] Hem/Onc [address] [place] [address] 10/20/2023 Office Visit Cardiology Leda Myers PA-C [address] [place] [address] Scheduled Procedures Name Priority Associated Diagnoses Date/Ti [...] Screening 07/30/2021 07/30/2020, 07/12/2017 (Declined) COVID-19 Vaccine (4 - Pfizer risk series) 10/23/2021 08/28/2021, 02/18/2021, 01/28/2021 Influenza Vaccine (FLU shot) (#1) 2023 06/23/2022, 07/12/2021, 07/09/2020, Additional history exists GFR 12/19/2023 06/20/2023, 05/26, 05/23/2023, Additional history exists CKD PHOS USE SMARTSET 07405 2024 02/13/2023, 0 02/11/2021 O2 ASSESSMENT COMPLETED IN PAST YEAR FOR COPD 06/07/2024 06/07/2023 CKD HGB USE SMARTSET 45710 06/20/202406/20, 06/20/2023, 06/06/2023, Additional history exists LUNG CANCER SCREENING - USE SMARTSET 86201 Completed 03/14/2022, 06/03/2020, 05/27/2020, Additional history exists [...] BSA from Recorded weight), Subcutaneous, ONCE, On Mon06/21/23 at 1145, For 1 dose, Caution chemotherapy: Handle with gloves Given 06/21/2023 10:09 AM EDT 2.5 mg Abdomen Left Upper documented in this encounter Care Teams Shopper Insights Manager Relationship Specialty Start Date End Date Savanah Geiger, [address] [place], [place] [phone] PCP - General Family Medicine 04/11/12 documented as of this encounter
--- OUTSIDE RECORDS SUMMARY | 2023-08-22 17:26 | External Medical Summary | Summary of Care ---
Author Name Unknown Organization [facility] Address [address] [place] [address] Phone [phone] Care Team Providers Care Resource Specialist Name Role Phone GriffinreedSavanah DO Primary Care Provider Reason for Visit * Reason Onset Date Comments Medication Refill 07/06/2023 Encounter Details Date Type Department Care Team Description 07/06/2023 Refill Hematology/Oncology [facility] [address] [facility] [place] [address] Luann De La Cruz MD [address] [place] [address] Allergies Active Allergy Reactions Severity Noted Date [...] MG Sublingual Tablet Sublingual (Nitrostat)Indicati ons:Atherosclerosis of [place] coronary artery of [place] heart without angina pectoris One tablet under [...] Bladder cancer 04/24/2020 Coronary artery disease involving [place] heart without angina pectoris 05/22/2019 Old myocardial [...] encounter Miscellaneous Notes * Telephone Encounter - Caridad Damian CPhT - 07/06/2023 9:47 AM EDT [facility] requesting refill. Already in process. Thanks, Caridad Damian CPhT, [facility] ([facility]) [address] [place] [address] documented in this encounter Plan of Treatment Upcoming Encounters Date Type Specialty Care Team Description 07/10/2023 Office Visit Family Medicine Savanah Geiger DO [address] [place] [address] 07/14/2023 Scheduled Telephone Pharmacy [facility] Hem/Onc Tech [address] [place] [address] 07/18/2023 Laboratory Laboratory [facility] [address] [place] [address] 07/19/2023 Hem/Onc Treatment Hematology Oncology 08/01/2023 Laboratory Laboratory [facility] [address] [place] [address] 08/02/2023 Pharmacy Pharmacy [facility] Hem/Onc [address] [place] [address] 08/02/2023 Hem/Onc Treatment Hematology Oncology [place], Chair 5 Hem Onc Scenery [address] [place] [address] 08/11/2023 Hem/Onc Treatment Hematology Oncology H, Infusion Chair [address] [place] [address] 08/11/2023 Appointment Radiology 08/11/2023 Office Visit Vascular Surgery Robin Burleson MD [address] [place] [address] 08/15/2023 Laboratory Laboratory [facility] [address] [place] [address] 08/16/2023 Office Visit Hematology Oncology Luann De La Cruz MD [address] [place] [address] 08/16/2023 Hem/Onc Treatment Hematology Oncology [place], Chair 3 Hem Onc Scenery [address] [place] [address] 08/23/2023 Office Visit Cardiology Brian Hager MD [address] [place] [address] 08/29/2023 Laboratory Laboratory [address] [address] 08/30/2023 Hem/Onc Treatment Hematology Oncology [place], Chair 7 Hem Onc Scenery [address] [place] [address] 10/20/2023 Office Visit Cardiology Leda Myers PA-C [address] [place] [address] Scheduled Procedures Name Priority Associated Diagnoses Date/Ti me COLONOSCOPY FLEXIBLE PROXIMAL DIAGNOSTIC Recall History of colon polyps Health Maintenance Due Date Last Done Comments Albumin/Creatinine Ratio 02/13/1970 Alpha-1 Antitrypsin 02/13/1970 Hepatitis C Screening 02/13/1970 DTaP,Tdap,and Td Vaccines (1 - Tdap) 02/13/1971 Zoster Vaccines (1 of 2) 02/13/1971 DISCUSS TOBACCO CESSATION (REFER TO SMARTSET #1787) 07/12/2018 07/12/2017 (Course Completed) COLONOSCOPY-EVERY 3 YRS AGES 18-100 05/23/2020 05/23/2017 Depression Screening 07/30/2021 07/30/2020, 07/12/2017 (Declined) COVID-19 Vaccine ( - 2022-24 season) 2023 08/28/2021, 02/18/2021, 01/28/2021 Influenza Vaccine (FLU shot) (#1) 2023 06/23/2022, 07/12/2021, 07/09/2020, Additional history exists GFR 01/03/2024 07/04/2023, 05/27, 06/06/2023, Additional history exists CKD PHOS USE SMARTSET 58109 2024 02/13/2023, 0 02/11/2021 CKD HGB USE SMARTSET 11924 07/04/202407/04, 07/04/2023, 06/20/2023, Additional history exists O2 ASSESSMENT COMPLETED IN PAST YEAR FOR COPD 07/05/2024 07/05/2023 LUNG CANCER SCREENING - USE SMARTSET 93664 Completed 03/14/2022, 06/03/2020, 05/27/2020, Additional history exists [...] filedocumented as of this encounter Care Teams Resource Specialist Relationship Specialty Start Date End Date Savanah Geiger, [address] [place] [address] PCP - General Family Medicine 04/11/12 documented as of this encounter
--- OUTSIDE RECORDS SUMMARY | 2023-08-22 17:26 | External Medical Summary ---
Author Name Unknown Address Unknown Organization [id number]:[facility] [place] [facility] [address] [place] [address] Laboratory Report Ordering Provider Test Date Status MARY ANNE LAGUNA 07/04/2023 10:18:05 Final Observation Date Value Abnormality Reference (Units ) Status Langdon light chains, Free, Serum 07/04/2023 10:18:05 17.62 3.30-19.40 (mg/L) Final Lambda light chains, free, Serum 07/04/2023 10:18:05 18.66 5.71-26.30 (mg/L) Final KAPPA LAMBDA FLC RATIO 07/04/2023 10:18:05 0.94 0.26-1.65 Final Performing Location [facility] [place] [facility] [place] [address]
--- OUTSIDE RECORDS SUMMARY | 2023-08-22 17:26 | External Medical Summary ---
Author Name Unknown Address Unknown Organization [id number]:[facility] [place] - [facility] N [facility] [address] [facility] [address] Laboratory Report Ordering Provider Test Date Status MARY ANNE LAGUNA 07/04/2023 10:18:05 Final Observation Date Value Abnormality Reference (Units ) Status WBC, Total 07/04/2023 10:18:05 11.51 Above high normal 4.00-10.80 (K/uL) Final RBC 07/04/2023 10:18:05 3.59 4.50-5.25 (M/uL) Final Hemoglobin 07/04/2023 10:18:05 11.3 Below low normal 14.0-16.8 (g/dL) Final HCT 07/04/2023 10:18:05 37.3 Below low normal 40.0-48.4 (%) Final MCV 07/04/2023 10:18:05 103.9 82.0-99.5 (fL) Final MCH 07/04/2023 10:18:05 31.5 27.0-34.0 (pg) Final MCHC 07/04/2023 10:18:05 30.3 32.0-36.0 (g/dL) Final RDW 07/04/2023 10:18:05 16.1 11.5-15.5 (%) Final Platelets 07/04/2023 10:18:05 248 140-400 (K/uL) Final MPV 07/04/2023 10:18:05 12.2 6.6-11.1 (fL) Final Nucleated erythrocytes/100 leukocytes [Ratio] in Blood by Automated count 07/04/2023 10:18:05 0 <=0 (/100 WBCs) Final Performing Location LABORATORY [facility] [place] - [address] [place] [address]
--- OUTSIDE RECORDS SUMMARY | 2023-08-22 17:26 | External Medical Summary ---
Author Name Unknown Address Unknown Organization K01:LABORATORY [place] [address] [address] [facility] [address] [place] [address] Laboratory Report Ordering Provider Test Date Status MARY ANNE LAGUNA 07/18/2023 10:42:10 Final Observation Date Value Abnormality Reference (Units ) Status WBC, Total 07/18/2023 10:42:10 7.45 4.00-10.80 (K/uL) Final RBC 07/18/2023 10:42:10 3.57 4.50-5.25 (M/uL) Final Hemoglobin 07/18/2023 10:42:10 11.4 Below low normal 14.0-16.8 (g/dL) Final HCT 07/18/2023 10:42:10 36.6 Below low normal 40.0-48.4 (%) Final MCV 07/18/2023 10:42:10 102.5 82.0-99.5 (fL) Final MCH 07/18/2023 10:42:10 31.9 27.0-34.0 (pg) Final MCHC 07/18/2023 10:42:10 31.1 32.0-36.0 (g/dL) Final RDW 07/18/2023 10:42:10 15.9 11.5-15.5 (%) Final Platelets 07/18/2023 10:42:10 205 140-400 (K/uL) Final MPV 07/18/2023 10:42:10 11.7 6.6-11.1 (fL) Final Nucleated erythrocytes/100 leukocytes [Ratio] in Blood by Automated count 07/18/2023 10:42:10 0 <=0 (/100 WBCs) Final Performing Location LABORATORY [facility] [place] - [facility] [address] [place] [address]
--- OUTSIDE RECORDS SUMMARY | 2023-08-22 17:26 | External Medical Summary ---
Author Name Unknown Address Unknown Organization K01:LABORATORY [facility] [place] - [address] [facility] [place] [address] Laboratory Report Ordering Provider Test Date Status MARY ANNE LAGUNA 07/18/2023 10:42:10 Final Observation Date Value Abnormality Reference (Units ) Status SYNC LEUKOCYTES IN BLOOD BY AUTOMATED COUNT 07/18/2023 10:42:10 7.45 4.00-10.80 (K/uL) Final Segs 07/18/2023 10:42:10 66.7 40.0-75.0 (%) Final Lymphs % 07/18/2023 10:42:10 13.8 Below low normal 18.0-42.0 (%) Final Monos 07/18/2023 10:42:10 9.4 1.0-11.0 (%) Final Eosinophils 07/18/2023 10:42:10 7.7 Above high normal 0.0-6.0 (%) Final Basos 07/18/2023 10:42:10 0.8 0.0-2.0 (%) Final Immature Granulocyte, Percent 07/18/2023 10:42:10 1.6 0.0-2.0 (%) Final Absolute Segs 07/18/2023 10:42:10 4.97 1.80-7.70 (K/uL) Final Lymphs, absolute 07/18/2023 10:42:10 1.03 1.00-4.80 (K/ul) Final Monos, Abs 07/18/2023 10:42:10 0.70 0.00-1.10 (K/uL) Final Eos, Abs 07/18/2023 10:42:10 0.57 0.00-0.70 (K/uL) Final Basos, Abs 07/18/2023 10:42:10 0.06 0.00-0.20 (K/uL) Final Immature Granulocytes, Number 07/18/2023 10:42:10 0.12 0.00-0.20 (K/uL) Final Performing Location LABORATORY [facility] [place] - [facility] [address] [facility] [address]
--- OUTSIDE RECORDS SUMMARY | 2023-08-22 17:26 | External Medical Summary | Summary of Care ---
Author Name Unknown Organization [facility] Address [address] [place] [address] Phone [phone] Care Team Providers Care Plateman Name Role Phone CaseySavanah harry Oswaldo JIMÉNEZ Primary Care Provider Encounter Details Date Type Department Care Team Description 07/02/2023 Orders Only Hematology/Oncology, [facility] [address] [place] [address] Luann De La Cruz MD [address] [place] [address] Allergies Active Allergy Reactions Severity Noted Date Comments Calcium Carb-Cholecalciferol 016 documented as of this encounter (statuses as of 07/02/2023) Medications Medication Sig Dispensed Refills Start Date [...] MG Sublingual Tablet Sublingual (Nitrostat)Indicati ons:Atherosclerosis of [place] coronary artery of [place] heart without angina pectoris One tablet under [...] as of this encounter (statuses as of 07/02/2023) Active Problems Problem Noted Date Dyslipidemia 03/29/2022 [...] Bladder cancer 04/24/2020 Coronary artery disease involving [place] heart without angina pectoris 05/22/2019 Old myocardial infarct 12/06/2018 S/p bare metal coronary artery stent Tobacco use disorder 04/16/2012 HTN, goal below 130/80 2012 GERD (gastroesophageal reflux disease) 0 2012 documented as of this encounter (statuses as of 07/02/2023) Resolved Problems Problem Noted Date Resolved Date Dehydration 02/01/2021 03/29/2022 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 Atherosclerosis of coronary artery without angin a pectoris 09/14/2018 03/29/2022 ST elevation myocardial infarction (STEMI) 03/2012/06/2018 Lung nodule 10/14/2015 03/29/2022 ST elevation myocardial infa rction (STEMI) involving other coronary artery 05/19/2015 03/20/2017 ST elevation RI (STEMI) 01/12/2015 09/14/20 18 Myocardial infarction 02/03/2014 09/14/2018 COPD, moderate 08/27/2013 08/06/2020 Overview: Per COPD GOLD Classification Noncompliance 03/13/2013 03/21/2017 Anemia 05/03/2012 03/29/2022 COPD, severity to be determined 04/16/2012 08/27/2013 Dyslipidemia, goal LDL below 70 04/16/2012 03/29/2022 documented as of this encounter (statuses as of 07/02/2023) Immunizations Name Administration Dates Next Due COVID-19 [...] A, Infusion Chair [address] [place] [address] 07/03/2023 Appointment Radiology 07/03/2023 Office Visit Vascular Surgery Robin Burleson MD [address] [place] [address] 07/04/2023 Laboratory Laboratory [facility] [address] [place] [address] 07/05/2023 Office Visit Hematology Oncology Luann De La Cruz MD [address] [place] [address] 07/05/2023 Hem/Onc Treatment Hematology Oncology [place], Chair 2 Hem Onc Scenery [address] [place] [address] 07/10/2023 Office Visit Family Medicine Savanah Geiger, DO [address] [place] [address] 07/14/2023 Scheduled Telephone Pharmacy [facility] Hem/Onc Tech [address] [place] [address] 07/18/2023 Laboratory Laboratory [facility] [address] [place] [address] 07/19/2023 Hem/Onc Treatment Hematology Oncology 08/02/2023 Pharmacy Pharmacy [facility] Hem/Onc [address] [place] [address] 08/23/2023 Office Visit Cardiology Brian Hager MD [address] [place] [address] 10/20/2023 Office Visit Cardiology Leda Myers PA-C [address] [place] [address] Scheduled Procedures Name Priority Associated Diagnoses Date/Ti me COLONOSCOPY FLEXIBLE PROXIMAL DIAGNOSTIC Recall History of colon polyps Health Maintenance Due Date Last Done Comments Albumin/Creatinine Ratio 02/13/1970 Alpha-1 Antitrypsin 02/13/1970 Hepatitis C Screening 02/13/1970 DTaP,Tdap,and Td Vaccines (1 - Tdap) 02/13/1971 Zoster Vaccines (1 of 2) 02/13/1971 DISCUSS TOBACCO CESSATION (REFER TO SMARTSET #7629) 07/12/2018 07/12/2017 (Course Completed) COLONOSCOPY-EVERY 3 YRS AGES 18-100 05/23/2020 05/23/2017 Depression Screening 07/30/2021 07/30/2020, 07/12/2017 (Declined) COVID-19 Vaccine ( season) 2023 08/28/2021, 02/18/2021, 01/28/2021 Influenza Vaccine (FLU shot) (#1) 2023 06/23/2022, 07/12/2021, 07/09/2020, Additional history exists GFR 12/19/2023 06/20/2023, 05/26, 05/23/2023, Additional history exists CKD PHOS USE SMARTSET 79629 2024 02/13/2023, 0 02/11/2021 O2 ASSESSMENT COMPLETED IN PAST YEAR FOR COPD 06/07/2024 06/07/2023 CKD HGB USE SMARTSET 16921 06/20/202406/20, 06/20/2023, 06/06/2023, Additional history exists LUNG CANCER SCREENING - USE SMARTSET 36842 Completed 03/14/2022, 06/03/2020, 05/27/2020, Additional history exists [...] filedocumented as of this encounter Care Teams Plateman Relationship Specialty Start Date End Date Savanah Geiger, [address] [place] [address] PCP - General Family Medicine 04/11/12 documented as of this encounter
--- OUTSIDE RECORDS SUMMARY | 2023-08-22 17:27 | External Medical Summary | Summary of Care ---
Author Name Unknown Organization [facility] Address [address] [place] [address] Phone [phone] Care Team Providers Care Director Of Neurology Name Role Phone GriffinreedSavanah DO Primary Care Provider [phone] Reason for Visit * Reason Comments Outpatient Testing Encounter Details Date Type Department Care Team Description 06/20/2023 Laboratory Laboratory, [place] [address] [place] [address] [place] [address] [place] [address] Multiple myeloma not having achieved remission (HCC) Allergies Active Allergy Reactions Severity Noted Date Comments Calcium Carb-Cholecalciferol 016 documented as of this encounter (statuses as of 06/20/2023) Medications Medication Sig Dispensed Refills Start Date [...] MG Sublingual Tablet Sublingual (Nitrostat)Indicati ons:Atherosclerosis of [place] coronary artery of [place] heart without angina pectoris One tablet under [...] as of this encounter (statuses as of 06/20/2023) Active Problems Problem Noted Date Dyslipidemia 03/29/2022 [...] Bladder cancer 04/24/2020 Coronary artery disease involving [place] heart without angina pectoris 05/22/2019 Old myocardial infarct 12/06/2018 S/p bare metal coronary artery stent Tobacco use disorder 04/16/2012 HTN, goal below 130/80 2012 GERD (gastroesophageal reflux disease) 0 2012 documented as of this encounter (statuses as of 06/20/2023) Resolved Problems Problem Noted Date Resolved Date Dehydration 02/01/2021 03/29/2022 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 Atherosclerosis of coronary artery without angin a pectoris 09/14/2018 03/29/2022 ST elevation myocardial infarction (STEMI) 03/2012/06/2018 Lung nodule 10/14/2015 03/29/2022 ST elevation myocardial infa rction (STEMI) involving other coronary artery 05/19/2015 03/20/2017 ST elevation [place] (STEMI) 01/12/2015 09/14/20 18 Myocardial infarction 02/03/2014 09/14/2018 COPD, moderate 08/27/2013 08/06/2020 Overview: Per COPD GOLD Classification Noncompliance 03/13/2013 03/21/2017 Anemia 05/03/2012 03/29/2022 COPD, severity to be determined 04/16/2012 08/27/2013 Dyslipidemia, goal LDL below 70 04/16/2012 03/29/2022 documented as of this encounter (statuses as of 06/20/2023) Immunizations Name Administration Dates Next Due COVID-19 [...] Encounters Date Type Specialty Care Team Description 06/21/2023 Hem/Onc Treatment Hematology Oncology [place], Chair 8 Hem Onc Scenery [address] [place] [address] 07/03/2023 Hem/Onc Treatment Hematology Oncology A, Infusion Chair [address] [place] [address] 07/03/2023 Appointment Radiology 07/03/2023 Office Visit Vascular Surgery Robin Burleson MD [address] [place] [address] 07/04/2023 Laboratory Laboratory [facility] [address] [place] [address] 07/05/2023 Office Visit Hematology Oncology Luann De La Cruz MD [address] [place] [address] 07/05/2023 Hem/Onc Treatment Hematology Oncology [place], Chair 5 Hem Onc Scenery [address] [place] [address] 07/10/2023 Office Visit Family Medicine Savanah Geiger, DO [address] [place] [address] 07/14/2023 Scheduled Telephone Pharmacy [facility] Hem/Onc Tech [address] [place] [address] 07/18/2023 Laboratory Laboratory [facility] [address] [place] [address] 07/19/2023 Hem/Onc Treatment Hematology Oncology 08/02/2023 Pharmacy Pharmacy [facility] Hem/Onc [address] [place] [address] 10/20/2023 Office Visit Cardiology Leda Myers PA-C [address] [place] [phone] Pending Results Name Type Priority Associated Diagnoses Date /Time COMPREHENSIVE METABOLIC PANEL Lab Routine Multiple myeloma not having achieved remission (HCC) 06/20/2023 10:41 AM EDT CBC WITH WBC DIFFERENTIAL Lab Routine Multiple myeloma not having achieved remission (HCC) 06/20/2023 10:41 AM EDT CBC Lab Routine Multiple myeloma not having achieved remission (HCC) 06/20/2023 10:41 AM EDT DIFFERENTIAL, AUTOMATED Lab Routine Multiple myeloma not having achieved remission (HCC) 06/20/2023 10:41 AM EDT Scheduled Procedures Name Priority Associated [...] 06/23/2022, 07/12/2021, 07/09/2020, Additional history exists GFR 12/05/2023 06/06/2023, 08/2 05/2023, 05/09/2023, Additional history exists CKD PHOS USE SMARTSET 88611 2024 02/13/2023, 0 02/11/2021 CKD HGB USE SMARTSET 09152 06/06/202406/06, 06/06/2023, 05/23/2023, Additional history exists O2 ASSESSMENT COMPLETED IN PAST YEAR FOR COPD 06/07/2024 06/07/2023 LUNG CANCER SCREENING - USE SMARTSET 37678 Completed 03/14/2022, 06/03/2020, 05/27/2020, Additional history exists [...] remission documented in this encounter Care Teams Director Of Neurology Relationship Specialty Start Date End Date Savanah Geiger, [address] [place] [address] PCP - General Family Medicine 04/11/12 documented as of this encounter
--- OUTSIDE RECORDS SUMMARY | 2023-08-22 17:27 | External Medical Summary ---
Author Name Unknown Address Unknown Organization K01:LABORATORY [facility] [place] - [address] [facility] [place] [address] Laboratory Report Ordering Provider Test Date Status MARY ANNE LAGUNA 06/20/2023 10:41:21 Final Observation Date Value Abnormality Reference (Units ) Status SYNC LEUKOCYTES IN BLOOD BY AUTOMATED COUNT 06/20/2023 10:41:21 9.37 4.00-10.80 (K/uL) Final Segs 06/20/2023 10:41:21 69.2 40.0-75.0 (%) Final Lymphs % 06/20/2023 10:41:21 12.7 Below low normal 18.0-42.0 (%) Final Monos 06/20/2023 10:41:21 16.0 Above high normal 1.0-11.0 (%) Final Eosinophils 06/20/2023 10:41:21 1.4 0.0-6.0 (%) Final Basos 06/20/2023 10:41:21 0.4 0.0-2.0 (%) Final Immature Granulocyte, Percent 06/20/2023 10:41:21 0.3 0.0-2.0 (%) Final Absolute Segs 06/20/2023 10:41:21 6.48 1.80-7.70 (K/uL) Final Lymphs, absolute 06/20/2023 10:41:21 1.19 1.00-4.80 (K/ul) Final Monos, Abs 06/20/2023 10:41:21 1.50 Above high normal 0.00-1.10 (K/uL) Final Eos, Abs 06/20/2023 10:41:21 0.13 0.00-0.70 (K/uL) Final Basos, Abs 06/20/2023 10:41:21 0.04 0.00-0.20 (K/uL) Final Immature Granulocytes, Number 06/20/2023 10:41:21 0.03 0.00-0.20 (K/uL) Final Performing Location LABORATORY [facility] [place] - [facility] [address]. [facility] [id number]
--- OUTSIDE RECORDS SUMMARY | 2023-08-22 17:27 | External Medical Summary | Summary of Care ---
Author Name Unknown Organization [facility] Address [address] [place] [address] Phone [phone] Care Team Providers Care Director Underwriter Sales Name Role Phone GriffinreedSavanah DO Primary Care Provider [phone] Reason for Visit * Reason Comments Outpatient Testing Encounter Details Date Type Department Care Team Description 06/20/2023 Laboratory Laboratory, [place] [address] [place] [address] [place], Laboratory [address] [place] [address] Multiple myeloma not having achieved [...] MG Sublingual Tablet Sublingual (Nitrostat)Indicati ons:Atherosclerosis of [place] coronary artery of [place] heart without angina pectoris One tablet under [...] Bladder cancer 04/24/2020 Coronary artery disease involving [place] heart without angina pectoris 05/22/2019 Old myocardial [...] other coronary artery 05/19/2015 03/20/2017 ST elevation [place] (STEMI) 01/12/2015 09/14/20 18 Myocardial infarction 02/03/2014 [...] Chair 8 Hem Onc Scenery [address] [place] [address] 07/03/2023 Hem/Onc Treatment Hematology Oncology A, Infusion Chair [address] [place] [address] 07/03/2023 Appointment Radiology 07/03/2023 Office Visit Vascular Surgery Robin Burleson MD [address] [place] [address] 07/04/2023 Laboratory Laboratory [facility] Laboratory [address] [place] [address] 07/05/2023 Office Visit Hematology Oncology Luann De La Cruz MD [address] [place] [address] 07/05/2023 Hem/Onc Treatment Hematology Oncology [place], Chair 5 Hem Onc Scenery [address] [place] [address] 07/10/2023 Office Visit Family Medicine Savanah Geiger, DO [address] [place] [address] 07/14/2023 Scheduled Telephone Pharmacy [facility] Hem/Onc Tech [address] [place] [address] 07/18/2023 Laboratory Laboratory [facility] [address] [place] [address] 07/19/2023 Hem/Onc Treatment Hematology Oncology 08/02/2023 Pharmacy Pharmacy [facility] Hem/Onc [address] [place] [address] 10/20/2023 Office Visit Cardiology Leda Myers PA-C [address] [place] [phone] Pending Results Name Type Priority Associated Diagnoses [...] Additional history exists CKD PHOS USE SMARTSET 58645 2024 02/13/2023, 0 02/11/2021 CKD HGB USE SMARTSET 13654 06/06/202406/06, 06/06/2023, 05/23/2023, Additional history exists O2 ASSESSMENT COMPLETED IN PAST YEAR FOR COPD 06/07/2024 06/07/2023 LUNG CANCER SCREENING - USE SMARTSET 52463 Completed 03/14/2022, 06/03/2020, 05/27/2020, Additional history exists [...] documented in this encounter Care Teams Director Underwriter Sales Relationship Specialty Start Date End Date Savanah Geiger, [address] [place] [address] PCP - General Family Medicine 04/11/12 documented as of this encounter
--- OUTSIDE RECORDS SUMMARY | 2023-08-22 17:27 | External Medical Summary | Summary of Care ---
Author Name Unknown Organization [facility] Address [address] [place] [address] Phone [phone] Care Team Providers Care Secondary Set Up Man Name Role Phone GriffinreedSavanah DO Primary Care Provider Reason for Visit * Reason Onset Date Comments Medication Refill 06/13/2023 Encounter Details Date Type Department Care Team Description 06/13/2023 Refill Hematology/Oncology Treatment, [place] [address] [place] [id number] Luann De La Cruz MD [address] [place] [address] Multiple myeloma not having achieved remission (HCC) Allergies Active Allergy Reactions Severity Noted Date Comments Calcium Carb-Cholecalciferol 016 documented as of this encounter (statuses as of 06/14/2023) Medications Medication Sig Dispensed Refills Start Date [...] Active Prochlorperazine Maleate 10 MG Oral Tablet (Compazine)Indica [...] Sublingual Tablet Sublingual (Nitrostat)Indica tions:Atheroscler osis of [place] coronary artery of [place] heart without angina pectoris One tablet under [...] (Ultram)Indicatio ns:Multiple myeloma, remission status unspecified (HCC) TAKE 1 TABLET BY MOUTH EVERY 6 HOURS NEEDED FOR MODERATE PAIN 30 Tablet 0 06/05/2023 Active Lenalidomide 10 MG Oral Capsule (Revlimid)Indicat ions:Multiple myeloma not having achieved remission (HCC) TAKE 1 CAPSULE BY MOUTH 1 TIME A DAY FOR 14 DAYS ON THEN 7 DAYS OFF 14 Capsule 0 06/14/2023 Active Lenalidomide 10 MG Oral Capsule (Revlimid)Indicat ions:Multiple myeloma not having achieved remission (HCC) TAKE 1 CAPSULE BY MOUTH 1 TIME A DAY FOR 14 DAYS ON THEN 7 DAYS OFF 14 Capsule 0 05/23/2023 3 Discontinue d(Refill) documented as of this encounter (statuses as of 06/14/2023) Active Problems Problem Noted Date Dyslipidemia 03/29/2022 [...] Bladder cancer 04/24/2020 Coronary artery disease involving [place] heart without angina pectoris 05/22/2019 Old myocardial infarct 12/06/2018 S/p bare metal coronary artery stent Tobacco use disorder 04/16/2012 HTN, goal below 130/80 2012 GERD (gastroesophageal reflux disease) 0 2012 documented as of this encounter (statuses as of 06/14/2023) Resolved Problems Problem Noted Date Resolved Date Dehydration 02/01/2021 03/29/2022 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 Atherosclerosis of coronary artery without angin a pectoris 09/14/2018 03/29/2022 ST elevation myocardial infarction (STEMI) 03/2012/06/2018 Lung nodule 10/14/2015 03/29/2022 ST elevation myocardial infa rction (STEMI) involving other coronary artery 05/19/2015 03/20/2017 ST elevation [place] (STEMI) 01/12/2015 09/14/20 18 Myocardial infarction 02/03/2014 09/14/2018 COPD, moderate 08/27/2013 08/06/2020 Overview: Per COPD GOLD Classification Noncompliance 03/13/2013 03/21/2017 Anemia 05/03/2012 03/29/2022 COPD, severity to be determined 04/16/2012 08/27/2013 Dyslipidemia, goal LDL below 70 04/16/2012 03/29/2022 documented as of this encounter (statuses as of 06/14/2023) Immunizations Name Administration Dates Next Due COVID-19 mRNA, LNP-s, No Pre serve, 2-Dose Series (InvisibleCRM) 08/28/2021,02/18/2021,01/28/2021 Pneumococcal Conjugate Vacc, 13 Valent (Prevnar) [...] Miscellaneous Notes * Telephone Encounter - Sarahy Rodriges RN - 06/14/2023 8:42 AM EDTPending Prescriptions: Disp Refills Lenalidomide 10 MG Oral Capsule (Revlimid) 14 Cap*0 Sig: TAKE 1 CAPSULE BY MOUTH 1 TIME A DAY FOR 14 DAYS ON THEN 7 DAYS OFF * Telephone Encounter - Sarahy Rodriges RN - 06/14/2023 8:41 AM EDT Prescriber survey complete, auth #[id number] * Telephone Encounter - JOSE Joyner - 06/13/2023 1:01 PM EDTPending Prescriptions: Disp Refills Lenalidomide 10 MG Oral Capsule (Revlimid) 14 Cap*0 documented in this encounter Plan of Treatment Upcoming Encounters Date Type Specialty Care Team Description 06/16/2023 Scheduled Telephone Pharmacy [facility] Hem/Onc Tech [address] [facility] [place] [address] 06/20/2023 Laboratory Laboratory [address] [phone] 06/21/2023 Hem/Onc Treatment Hematology Oncology [place], Chair 8 Hem Onc Scenery [address] [place] [address] 07/03/2023 Hem/Onc Treatment Hematology Oncology A, Infusion Chair [address] [place] [address] 07/03/2023 Appointment Radiology 07/03/2023 Office Visit Vascular Surgery Robin Burleson MD [address] [place], [place] [address] 07/04/2023 Laboratory Laboratory [facility] [address] [place] [address] 07/05/2023 Office Visit Hematology Oncology Luann De La Cruz MD [address] [place] [address] 07/05/2023 Hem/Onc Treatment Hematology Oncology [place], Chair 5 Hem Onc Scenery [address] [place] [address] 07/10/2023 Office Visit Family Medicine Savanah Geiger, DO [address] [place] [address] 07/18/2023 Laboratory Laboratory [facility] [address] [place] [address] 07/19/2023 Hem/Onc Treatment Hematology Oncology 08/02/2023 Pharmacy Pharmacy [facility] Hem/Onc [address] [place] [address] 10/20/2023 Office Visit Cardiology Leda Myers PA-C [address] [place] [phone] Scheduled Procedures Name Priority Associated Diagnoses Date/Ti [...] 07/09/2020, Additional history exists GFR 12/05/2023 06/06/2023, 04/26, 05/09/2023, Additional history exists CKD PHOS USE SMARTSET 53162 2024 02/13/2023, 0 02/11/2021 CKD HGB USE SMARTSET 84897 06/06/202406/06, 06/06/2023, 05/23/2023, Additional history exists O2 ASSESSMENT COMPLETED IN PAST YEAR FOR COPD 06/07/2024 06/07/2023 LUNG CANCER SCREENING - USE SMARTSET 01833 Completed 03/14/2022, 06/03/2020, 05/27/2020, Additional history exists [...] remission documented in this encounter Care Teams Secondary Set Up Man Relationship Specialty Start Date End Date Savanah Geiger, DO [address] [facility] [place] [phone] PCP - General Family Medicine 04/11/12 documented as of this encounter
--- OUTSIDE RECORDS SUMMARY | 2023-08-22 17:27 | External Medical Summary ---
Author Name Unknown Address Unknown Organization K01:LABORATORY [place] [address] [facility] [address] [place] [address] Laboratory Report Ordering Provider Test Date Status MARY ANNE LAGUNA 06/20/2023 10:41:21 Final Observation Date Value Abnormality Reference (Units ) Status WBC, Total 06/20/2023 10:41:21 9.37 4.00-10.80 (K/uL) Final RBC 06/20/2023 10:41:21 3.69 4.50-5.25 (M/uL) Final Hemoglobin 06/20/2023 10:41:21 11.5 Below low normal 14.0-16.8 (g/dL) Final HCT 06/20/2023 10:41:21 38.5 Below low normal 40.0-48.4 (%) Final MCV 06/20/2023 10:41:21 104.3 82.0-99.5 (fL) Final MCH 06/20/2023 10:41:21 31.2 27.0-34.0 (pg) Final MCHC 06/20/2023 10:41:21 29.9 32.0-36.0 (g/dL) Final RDW 06/20/2023 10:41:21 16.0 11.5-15.5 (%) Final Platelets 06/20/2023 10:41:21 211 140-400 (K/uL) Final MPV 06/20/2023 10:41:21 11.4 6.6-11.1 (fL) Final Nucleated erythrocytes/100 leukocytes [Ratio] in Blood by Automated count 06/20/2023 10:41:21 0 <=0 (/100 WBCs) Final Performing Location [facility] [address] [place] [address]
--- OUTSIDE RECORDS SUMMARY | 2023-08-22 17:27 | External Medical Summary | Summary of Care ---
Author Name Unknown Organization [facility] Address [address] [place] [address] Phone [phone] Care Team Providers Care Rn Hematology Name Role Phone GriffinreedSavanah DO Primary Care Provider [phone] Reason for Visit * Reason Comments Outpatient Testing Encounter Details Date Type Department Care Team Description 06/20/2023 Laboratory Laboratory, [place] [address] [place] [address] [place], Laboratory [address] [place] [address] Multiple myeloma not having achieved [...] MG Sublingual Tablet Sublingual (Nitrostat)Indicati ons:Atherosclerosis of [place] coronary artery of [place] heart without angina pectoris One tablet under [...] Bladder cancer 04/24/2020 Coronary artery disease involving [place] heart without angina pectoris 05/22/2019 Old myocardial [...] other coronary artery 05/19/2015 03/20/2017 ST elevation [place] (STEMI) 01/12/2015 09/14/20 18 Myocardial infarction 02/03/2014 [...] Chair 8 Hem Onc Scenery [address] [place] [address] 07/03/2023 Hem/Onc Treatment Hematology Oncology A, Infusion Chair [address] [place] [address] 07/03/2023 Appointment Radiology 07/03/2023 Office Visit Vascular Surgery Robin Burleson MD [address] [place] [address] 07/04/2023 Laboratory Laboratory [facility] [address] [place] [address] 07/05/2023 Office Visit Hematology Oncology Luann De La Cruz MD [address] [place] [address] 07/05/2023 Hem/Onc Treatment Hematology Oncology [place], Chair 5 Hem Onc Scenery [address] [place] [address] 07/10/2023 Office Visit Family Medicine Savanah Geiger, DO [address] [place] [address] 07/14/2023 Scheduled Telephone Pharmacy [facility] Hem/Onc Tech [address] [place] [address] 07/18/2023 Laboratory Laboratory [facility] [address] [place] [address] 07/19/2023 Hem/Onc Treatment Hematology Oncology 08/02/2023 Pharmacy Pharmacy [facility] Hem/Onc [address] [place] [address] 10/20/2023 Office Visit Cardiology Leda Myers PA-C [address] [place] [phone] Pending Results Name Type Priority Associated Diagnoses [...] Additional history exists CKD PHOS USE SMARTSET 34334 2024 02/13/2023, 0 02/11/2021 CKD HGB USE SMARTSET 72620 06/06/202406/06, 06/06/2023, 05/23/2023, Additional history exists O2 ASSESSMENT COMPLETED IN PAST YEAR FOR COPD 06/07/2024 06/07/2023 LUNG CANCER SCREENING - USE SMARTSET 19925 Completed 03/14/2022, 06/03/2020, 05/27/2020, Additional history exists [...] remission documented in this encounter Care Teams Rn Hematology Relationship Specialty Start Date End Date Savanah Geiger, [address] [place] [address] PCP - General Family Medicine 04/11/12 documented as of this encounter
--- OUTSIDE RECORDS SUMMARY | 2023-08-22 17:27 | External Medical Summary ---
Author Name Unknown Address Unknown Organization K01:LABORATORY [facility] - [address] [facility] [place] [address] Laboratory Report Ordering Provider Test Date Status MARY ANNE LAGUNA 06/20/2023 10:41:21 Final Observation Date Value Abnormality Reference (Units ) Status BUN 06/20/2023 10:41:21 20 6-20 (mg/dL) Final Creatinine 06/20/2023 10:41:21 1.4 Above high normal 0.6-1.2 (mg/dL) Final Glomerular filtration rate/1.73 sq M.predicted [Volume Rate/Area] in Serum, Plasma or Blood by Creatinine-based formula (CKD-EPI) 06/20/2023 10:41:21 56 Below low normal >=60 (mL/min) Final eGFR is calculated based on the CKD-EPI 2020 equation SODIUM 06/20/2023 10:41:21 137 135-146 (m mol/L) Final Potassium 06/20/2023 10:41:21 4.4 3.5-5.1 (m mol/L) Final Cl 06/20/2023 10:41:21 102 98-107 (mm ol/L) Final CO2 06/20/2023 10:41:21 24 22-32 (mmo l/L) Final Anion gap 06/20/2023 10:41:21 11 7-15 (mmol /L) Final Glucose 06/20/2023 10:41:21 113 70-120 (mg /dL) Final Albumin 06/20/2023 10:41:21 4.1 3.8-5.0 (g /dL) Final AST (Aspartate aminotransferase) 06/20/2023 10:41:21 11 10-50 (U/L) Fin al Alk Phos 06/20/2023 10:41:21 90 35-130 (U/ L) Final Bilirubin, Total 06/20/2023 10:41:21 0.6 <=1 .2 (mg/dL) Final Calcium 06/20/2023 10:41:21 8.3 Below low normal 8.4 -10.2 (mg/dL) Final Protein 06/20/2023 10:41:21 5.9 Below low normal 6.0 -8.3 (g/dL) Final ALT (Alanine aminotransferase) 06/20/2023 10:41:21 16 10-50 (U/L) Andrzej caal Performing Location LABORATORY [facility] - [address] [facility] [address]
--- OUTSIDE RECORDS SUMMARY | 2023-08-22 17:27 | External Medical Summary | Summary of Care ---
Author Name Unknown Organization [facility] Address [address] [place] [address] Phone [phone] Care Team Providers Care Theatre Arts Professor Name Role Phone Savanah Geiger DO Primary Care Provider + [phone] Reason for Visit * Reason Comments Chemotherapy Velcade * Episode Based Medications (Routine) - Authorized Specialty Diagnoses / Procedures Referred By Contnataliia t Referred To Contact Diagnoses Multiple myeloma not having achieved remission (HCC) Procedures TX INJ., VELCADE 0.1 MG Luann De La Cruz MD [address] [place] [address] Anc Hem/Onc Scenery Tresa [address] [place] [phone] Referral ID Status Reason Start Date Expiration Date V isits Requested Visits Authorized [id number] Authorized 02/22/2022 09/24/2099 99 99 Encounter Details Date Type Department Care Team Description 06/07/2023 Hem/Onc Treatment Hematology/Oncology Treatment, [place] [address] [place] [address] Tresa, Chair 11 Hem Onc Scene [address] [place] [address] Multiple myeloma not having achieved remission (HCC)*; Encounter for antineoplastic chemotherapy Allergies Active Allergy Reactions Severity Noted Date Comments Calcium Carb-Cholecalciferol 016 documented as of this encounter (statuses as of 06/07/2023) Medications Medication Sig Dispensed Refills Start Date [...] MG Sublingual Tablet Sublingual (Nitrostat)Indicati ons:Atherosclerosis of [place] coronary artery of [place] heart without angina pectoris One tablet under [...] 7 DAYS OFF 14 Capsule 0 05/23/2023 Active traMADol HCl 50 MG Oral Tablet (Ultram)Indications :Multiple myeloma, remission status unspecified (HCC) TAKE 1 TABLET BY MOUTH EVERY 6 HOURS NEEDED FOR MODERATE PAIN 30 Tablet 0 06/05/2023 Active documented as of this encounter (statuses as of 06/07/2023) Active Problems Problem Noted Date Dyslipidemia 03/29/2022 [...] Bladder cancer 04/24/2020 Coronary artery disease involving [place] heart without angina pectoris 05/22/2019 Old myocardial infarct 12/06/2018 S/p bare metal coronary artery stent Tobacco use disorder 04/16/2012 HTN, goal below 130/80 2012 GERD (gastroesophageal reflux disease) 0 2012 documented as of this encounter (statuses as of 06/07/2023) Resolved Problems Problem Noted Date Resolved Date Dehydration 02/01/2021 03/29/2022 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 Atherosclerosis of coronary artery without angin a pectoris 09/14/2018 03/29/2022 ST elevation myocardial infarction (STEMI) 03/2012/06/2018 Lung nodule 10/14/2015 03/29/2022 ST elevation myocardial infa rction (STEMI) involving other coronary artery 05/19/2015 03/20/2017 ST elevation [place] (STEMI) 01/12/2015 09/14/20 18 Myocardial infarction 02/03/2014 09/14/2018 COPD, moderate 08/27/2013 08/06/2020 Overview: Per COPD GOLD Classification Noncompliance 03/13/2013 03/21/2017 Anemia 05/03/2012 03/29/2022 COPD, severity to be determined 04/16/2012 08/27/2013 Dyslipidemia, goal LDL below 70 04/16/2012 03/29/2022 documented as of this encounter (statuses as of 06/07/2023) Immunizations Name Administration Dates Next Due COVID-19 mRNA, LNP-s, No Pre serve, 2-Dose Series ([employer]) 08/28/2021,02/18/2021,01/28/2021 Pneumococcal Conjugate Vacc, 13 Valent (Prevnar) [...] Sign Reading Time Taken Comments Blood Pressure 138/84 06/07/2023 10:05 AM EDT Pulse 60 06/07/2023 10:05 AM EDT Temperature 36.1 C (96.9 F) 06/07/2023 10:05 AM E DT Respiratory Rate 16 06/07/2023 10:05 AM EDT Oxygen Saturation 93% 06/07/2023 10:05 AM EDT Inhaled Oxygen Concentration - - Weight 74.7 kg (164 lb 9.6 oz) 06/07/2023 10:05 AM EDT Height - - Body Mass Index 26.57 01/05/2023 8:34 AM EDT documented in this encounter Nursing Notes * Evonne Lundberg RN - 06/07/2023 1:05 PM EDT Chair 11. Patient arrived today for Velcade injection --feeling overall well without any acute issues or complaints other than some fatigue. 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 Bleeding no Infection no Rash no Numbness tingling no changes, occasional neuropathy in hands that comes and goes Pain no Radiation no ABN Labs WNL for tx today Alt in Tx: N/A Return in 2 [...] Care Team Description 06/16/2023 Scheduled Telephone Pharmacy [facility] Hem/Onc Tech [address] [place] [address] 06/20/2023 Laboratory Laboratory [address] [address] 06/21/2023 Hem/Onc Treatment Hematology Oncology Tresa, Chair 8 Hem Onc Scenery [address] [place] [address] 06/22/2023 Office Visit Cardiology Leda Myers PA-C [address] [place] [address] 07/03/2023 Hem/Onc Treatment Hematology Oncology A, Infusion Chair [address] [place] [address] 07/03/2023 Appointment Radiology 07/03/2023 Office Visit Vascular Surgery Robin Burleson MD [address] [place] [address] 07/04/2023 Laboratory Laboratory [address] [address] 07/05/2023 Office Visit Hematology Oncology Luann De La Cruz MD [address] [place] [address] 07/05/2023 Hem/Onc Treatment Hematology Oncology Tresa, Chair 5 Hem Onc Scenery [address] [place] [address] 07/10/2023 Office Visit Family Medicine Savanah Geiger DO [address] [place] [address] 07/18/2023 Laboratory Laboratory [facility] [address] [place] [address] 07/19/2023 Hem/Onc Treatment Hematology Oncology Scheduled Procedures Name Priority Associated Diagnoses Date/Ti [...] 07/09/2020, Additional history exists GFR 12/05/2023 06/06/2023, 0805/2023, 05/09/2023, Additional history exists CKD PHOS USE SMARTSET 64436 2024 02/13/2023, 0 02/11/2021 O2 ASSESSMENT COMPLETED IN PAST YEAR FOR COPD 05/10/2024 05/10/2023 CKD HGB USE SMARTSET 01444 06/06/202406/06, 06/06/2023, 05/23/2023, Additional history exists LUNG CANCER SCREENING - USE SMARTSET 17273 Completed 03/14/2022, 06/03/2020, 05/27/2020, Additional history exists [...] BSA from Recorded weight), Subcutaneous, ONCE, On Mon06/07/23 at 1215, For 1 dose, Caution chemotherapy: Handle with gloves Given 06/07/2023 10:32 AM EDT 2.5 mg Abdomen Left Lower documented in this encounter Care Teams Theatre Arts Professor Relationship Specialty Start Date End Date Savanah Geiger, DO [address] [place], [place] [phone] PCP - General Family Medicine 04/11/12 documented as of this encounter
--- OUTSIDE RECORDS SUMMARY | 2023-08-22 17:28 | External Medical Summary | Summary of Care ---
Author Name Unknown Organization [facility] Address [address] [place] [address] Phone [phone] Care Team Providers Care Wall Scraper Name Role Phone Savanah Geiger DO Primary Care Provider Reason for Visit * Reason Comments eRx-Medication Refill Encounter Details Date Type Department Care Team Description 05/18/2023 Refill Hematology/Oncology Treatment, [place] [address] [place] [address] Luann De La Cruz MD [address] [place] [address] Multiple myeloma not having achieved remission (HCC) Allergies Active Allergy Reactions Severity Noted Date Comments Calcium Carb-Cholecalciferol 016 documented as of this encounter (statuses as of 05/23/2023) Medications Medication Sig Dispensed Refills Start Date [...] a week 40 Tablet 5 01/09/2023 Active traMADol HCl 50 MG Oral Tablet (Ultram)Indicati ons:Multiple myeloma, remission status unspecified (HCC) Take 1 Tablet by mouth every 6 hours as needed for Pain, Moderate. 30 Tablet 0 01/24/2023 Active Nitroglycerin 0.4 MG Sublingual Tablet Sublingual (Nitrostat)Indic ations:Atheroscl erosis of [place] coronary artery of [place] heart without angina pectoris One tablet under [...] DAYS OFF 14 Capsule 0 05/23/2023 Active Lenalidomide 10 MG Oral Capsule (Revlimid)Indica tions:Multiple myeloma not having achieved remission (HCC) TAKE 1 CAPSULE BY MOUTH 1 TIME A DAY FOR 14 DAYS ON THEN 7 DAYS OFF 14 Capsule 0 05/03/2023 3 Discontinued documented as of this encounter (statuses as of 05/23/2023) Active Problems Problem Noted Date Dyslipidemia 03/29/2022 [...] Bladder cancer 04/24/2020 Coronary artery disease involving [place] heart without angina pectoris 05/22/2019 Old myocardial infarct 12/06/2018 S/p bare metal coronary artery stent Tobacco use disorder 04/16/2012 HTN, goal below 130/80 2012 GERD (gastroesophageal reflux disease) 0 2012 documented as of this encounter (statuses as of 05/23/2023) Resolved Problems Problem Noted Date Resolved Date Dehydration 02/01/2021 03/29/2022 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 Atherosclerosis of coronary artery without angin a pectoris 09/14/2018 03/29/2022 ST elevation myocardial infarction (STEMI) 03/2012/06/2018 Lung nodule 10/14/2015 03/29/2022 ST elevation myocardial infa rction (STEMI) involving other coronary artery 05/19/2015 03/20/2017 ST elevation [place] (STEMI) 01/12/2015 09/14/20 18 Myocardial infarction 02/03/2014 09/14/2018 COPD, moderate 08/27/2013 08/06/2020 Overview: Per COPD GOLD Classification Noncompliance 03/13/2013 03/21/2017 Anemia 05/03/2012 03/29/2022 COPD, severity to be determined 04/16/2012 08/27/2013 Dyslipidemia, goal LDL below 70 04/16/2012 03/29/2022 documented as of this encounter (statuses as of 05/23/2023) Immunizations Name Administration Dates Next Due COVID-19 mRNA, LNP-s, No Pre serve, 2-Dose Series ([employer]) 08/28/2021,02/18/2021,01/28/2021 Pneumococcal Conjugate Vacc, 13 Valent (Prevnar) [...] Telephone Encounter - Sarahy Rodriges RN - 05/23/2023 4:20 PM EDT Prescriber survey complete, auth # [id number] * Telephone Encounter - Interface, E-Rx Ss Inbound - 05/19/2023 8:04 AM EDT Pending Prescriptions: Disp Refills Lenalidomide 10 MG Oral Capsule (Revlimid)* 0 Sig: TAKE 1 CAPSULE BY MOUTH 1 TIME A DAY FOR 14 DAYS ON THEN 7 DAYS OFF documented in this encounter Plan of Treatment Upcoming Encounters Date Type Specialty Care Team Description 05/24/2023 Hem/Onc Treatment Hematology Oncology Tresa, Chair 9 Hem Onc Scenery 200 [facility] [address] 06/06/2023 Laboratory Laboratory [facility] [address] [place] [address] 06/07/2023 Pharmacy Pharmacy [facility] Hem/Onc [address] [place] [address] 06/07/2023 Hem/Onc Treatment Hematology Oncology Tresa, Chair 11 Hem Onc Scenery 200 [facility] [place] [address] 06/16/2023 Scheduled Telephone Pharmacy [facility] Hem/Onc Tech [address] [place] [address] 06/20/2023 Laboratory Laboratory [facility] [address] [place] [address] 06/21/2023 Hem/Onc Treatment Hematology Oncology [place], Chair 8 Hem Onc Scenery [address] [place] [address] 06/22/2023 Office Visit Cardiology Leda Myers PA-C [address] [place] [address] 07/03/2023 Hem/Onc Treatment Hematology Oncology A, Infusion Chair [address] [place] [address] 07/03/2023 Appointment Radiology 07/03/2023 Office Visit Vascular Surgery Robin Burleson MD [address] [place] [address] 07/04/2023 Laboratory Laboratory [facility] Laboratory [address] [place] [address] 07/05/2023 Office Visit Hematology Oncology Luann De La Cruz MD [address] [place] [address] 07/05/2023 Hem/Onc Treatment Hematology Oncology [place], Chair 5 Hem Onc Scenery [address] [place] [address] 07/10/2023 Office Visit Family Medicine Savanah Geiger DO [address] [place] [address] Scheduled Procedures Name Priority Associated Diagnoses Date/Ti [...] 3 YRS AGES 18-100 05/23/2020 05/23/2017 Depression Screening, Annual for Pts 12 and Over 07/30/2021 07/30/2020, 07/12/2017 (Declined) COVID-19 Vaccine (4 - Pfizer risk series) 10/23/2021 08/28/2021, 02/18/2021, 01/28/2021 Influenza Vaccine (FLU shot) (#1) 2023 06/23/2022, 07/12/2021, 07/09/2020, Additional history exists GFR 11/23/2023 05/23/2023, 04/25, 04/25/2023, Additional history exists CKD PHOS USE SMARTSET 73362 2024 02/13/2023, 0 02/11/2021 O2 ASSESSMENT COMPLETED IN PAST YEAR FOR COPD 05/10/2024 05/10/2023 CKD HGB USE SMARTSET 80537 05/23/202405/23, 05/23/2023, 05/09/2023, Additional history exists LUNG CANCER SCREENING - USE SMARTSET 91490 Completed 03/14/2022, 06/03/2020, 05/27/2020, Additional history exists [...] remission documented in this encounter Care Teams Wall Scraper Relationship Specialty Start Date End Date Savanah Geiger, DO [address] [place] [address] PCP - General Family Medicine 04/11/12 documented as of this encounter
--- OUTSIDE RECORDS SUMMARY | 2023-08-22 17:28 | External Medical Summary | Summary of Care ---
Author Name Unknown Organization [facility] Address [address] [place] [address] Phone [phone] Care Team Providers Care Rotor Blade Installer Name Role Phone CaseySavanah harry Oswaldo JIMÉNEZ Primary Care Provider [phone] Encounter Details Date Type Department Care Team Description 05/24/2023 Orders Only Hematology/Oncology [facility] Tresa [place] [address] [place] [address] Luann De La Cruz MD [address] [place] [address] Allergies Active Allergy Reactions Severity Noted Date Comments Calcium Carb-Cholecalciferol 016 documented as of this encounter (statuses as of 05/24/2023) Medications Medication Sig Dispensed Refills Start Date [...] MG Sublingual Tablet Sublingual (Nitrostat)Indicati ons:Atherosclerosis of [place] coronary artery of [place] heart without angina pectoris One tablet under [...] DAYS OFF 14 Capsule 0 05/23/2023 Active documented as of this encounter (statuses as of 05/24/2023) Active Problems Problem Noted Date Dyslipidemia 03/29/2022 [...] Bladder cancer 04/24/2020 Coronary artery disease involving [place] heart without angina pectoris 05/22/2019 Old myocardial infarct 12/06/2018 S/p bare metal coronary artery stent Tobacco use disorder 04/16/2012 HTN, goal below 130/80 2012 GERD (gastroesophageal reflux disease) 0 2012 documented as of this encounter (statuses as of 05/24/2023) Resolved Problems Problem Noted Date Resolved Date Dehydration 02/01/2021 03/29/2022 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 Atherosclerosis of coronary artery without angin a pectoris 09/14/2018 03/29/2022 ST elevation myocardial infarction (STEMI) 03/2012/06/2018 Lung nodule 10/14/2015 03/29/2022 ST elevation myocardial infa rction (STEMI) involving other coronary artery 05/19/2015 03/20/2017 ST elevation [place] (STEMI) 01/12/2015 09/14/20 18 Myocardial infarction 02/03/2014 09/14/2018 COPD, moderate 08/27/2013 08/06/2020 Overview: Per COPD GOLD Classification Noncompliance 03/13/2013 03/21/2017 Anemia 05/03/2012 03/29/2022 COPD, severity to be determined 04/16/2012 08/27/2013 Dyslipidemia, goal LDL below 70 04/16/2012 03/29/2022 documented as of this encounter (statuses as of 05/24/2023) Immunizations Name Administration Dates Next Due COVID-19 [...] Encounters Date Type Specialty Care Team Description 06/06/2023 [facility] [address] [facility] [address] 06/07/2023 Pharmacy [facility] Hem/Onc [address] [place], [place] [address] 06/07/2023 Hem/Onc Treatment Hematology Oncology Tresa, Chair 11 Hem Onc Scenery [address] [place] [address] 06/16/2023 Scheduled Telephone Pharmacy [facility] Hem/Onc Tech [address] [place] [address] 06/20/2023 Laboratory Laboratory [address] [address] 06/21/2023 Hem/Onc Treatment Hematology Oncology Tresa, Chair 8 Hem Onc Scenery [address] [place] [address] 06/22/2023 Office Visit [facility]iology [facility] [address] [facility] [address] 07/03/2023 Hem/Onc Treatment Hematology Oncology A, Infusion Chair [address] [place] [address] 07/03/2023 Appointment Radiology 07/03/2023 Office Visit Vascular Surgery Robin Burleson MD [address] [place] [address] 07/04/2023 Laboratory Laboratory [place] [address] [place] [address] 07/05/2023 Office Visit Hematology Oncology Luann De La Cruz MD [address] [place] [address] 07/05/2023 Hem/Onc Treatment Hematology Oncology Tresa, Chair 5 Hem Onc Scenery [address] [place] [address] 07/10/2023 Office Visit Family Medicine Savanah Geiger DO [address] [place] [address] 07/18/2023 Laboratory Laboratory [facility] [address] [place] [address] 07/19/2023 Hem/Onc Treatment Hematology Oncology Scheduled Procedures Name Priority Associated Diagnoses Date/Ti me COLONOSCOPY FLEXIBLE PROXIMAL DIAGNOSTIC Recall History of colon polyps Health Maintenance Due Date Last Done Comments Albumin/Creatinine Ratio 02/13/1970 Alpha-1 Antitrypsin 02/13/1970 Hepatitis C Screening 02/13/1970 DTaP,Tdap,and Td Vaccines (1 - Tdap) 02/13/1971 Zoster Vaccines (1 of 2) 02/13/1971 DISCUSS TOBACCO CESSATION (REFER TO SMARTSET #0115) 07/12/2018 07/12/2017 (Course Completed) COLONOSCOPY-EVERY 3 YRS AGES 18-100 05/23/2020 05/23/2017 Depression Screening, Annual for Pts 12 and Over 07/30/2021 07/30/2020, 07/12/2017 (Declined) COVID-19 Vaccine (4 - Pfizer risk series) 10/23/2021 08/28/2021, 02/18/2021, 01/28/2021 Influenza Vaccine (FLU shot) (#1) 2023 06/23/2022, 07/12/2021, 07/09/2020, Additional history exists GFR 11/23/2023 05/23/2023, 04/25, 04/25/2023, Additional history exists CKD PHOS USE SMARTSET 39344 2024 02/13/2023, 0 02/11/2021 O2 ASSESSMENT COMPLETED IN PAST YEAR FOR COPD 05/10/2024 05/10/2023 CKD HGB USE SMARTSET 15875 05/23/202405/23, 05/23/2023, 05/09/2023, Additional history exists LUNG CANCER SCREENING - USE SMARTSET 09363 Completed 03/14/2022, 06/03/2020, 05/27/2020, Additional history exists [...] filedocumented as of this encounter Care Teams Rotor Blade Installer Relationship Specialty Start Date End Date Savanah Geiger, [address] [place] [address] PCP - General Family Medicine 04/11/12 documented as of this encounter
--- OUTSIDE RECORDS SUMMARY | 2023-08-22 17:28 | External Medical Summary | Summary of Care ---
Author Name Unknown Organization [facility] Address [address] [place] [address] Phone [phone] Care Team Providers Care Pulmonologist Intensivist Name Role Phone CaseySavanah harry Oswaldo JIMÉNEZ Primary Care Provider Encounter Details Date Type Department Care Team Description 05/23/2023 Telephone Pharmacy Hematology Oncology [address] [id number] Luann De La Cruz MD [address] [place] [address] Allergies Active Allergy Reactions Severity Noted Date [...] Sublingual Tablet Sublingual (Nitrostat)Indicati ons:Atherosclerosis of [place] coronary artery of [place] heart without angina pectoris One tablet under [...] EVERY DAY 90 Tablet 3 04/21/2023 Active Lenalidomide 10 MG Oral Capsule (Revlimid)Indicatio ns:Multiple myeloma not having achieved remission (HCC) TAKE 1 CAPSULE BY MOUTH 1 TIME A DAY FOR 14 DAYS ON THEN 7 DAYS OFF 14 Capsule 0 05/03/2023 Active Mirtazapine 15 MG Oral Tablet (Remeron)Indication s:Poor appetite TAKE 1 TAB BY MOUTH AT BEDTIME. TO HELP WITH APPETITE, AND MOOD. 90 Tablet 1 05/01/2023 Active Famotidine 20 MG Oral Tablet (Pepcid)Indications :Gastroesophageal reflux disease without esophagitis TAKE 1 TABLET BY MOUTH TWICE A DAY 180 Tablet 3 05/03/2023 Active documented as of this encounter (statuses [...] Bladder cancer 04/24/2020 Coronary artery disease involving [place] heart without angina pectoris 05/22/2019 Old myocardial [...] other coronary artery 05/19/2015 03/20/2017 ST elevation [place] (STEMI) 01/12/2015 09/14/20 18 Myocardial infarction 02/03/2014 [...] Notes * Telephone Encounter - Fernanda Hernandez CPhT - 05/23/2023 1:05 PM EDT MEDICATION THERAPY MANAGEMENT Lenalidomide TREATMENT STATUS NOTE Brian [place] [phone] Patient Phone Numbers Communication: [facility] called to request Treatment: Medication: Lenalidomide (Revlimid) Indication: multiple myeloma Dose: 10mg daily D1-14 every 21 days Administration: +/- food Start Date: 04/01/22 Primary Recordist/Oncologist: Dr. De La Cruz [facility] called to request lenalidomide Rx. Fernanda Hernandez Reinforcing Iron Worker [facility] 05/23/2023, 1:06 PM Time Spent on Encounter: < 5 minutes documented in this encounter Plan of Treatment Upcoming Encounters Date Type Specialty Care Team Description 05/24/2023 Hem/Onc Treatment Hematology Oncology [place], Chair 9 Hem Onc Scenery [address] [place] [address] 06/06/2023 Laboratory Laboratory [address] [address] 06/07/2023 Pharmacy Pharmacy [facility] Hem/Onc [address] [place] [address] 06/07/2023 Hem/Onc Treatment Hematology Oncology [place], Chair 11 Hem Onc Scenery [address] [place] [address] 06/16/2023 Scheduled Telephone Pharmacy [facility] Hem/Onc Tech [address] [place] [address] 06/20/2023 Laboratory Laboratory [facility] [address] [place] [address] 06/21/2023 Hem/Onc Treatment Hematology Oncology [place], Chair 8 Hem Onc Scenery [address] [facility] [address] 06/22/2023 Office Visit Cardiology Leda Myers PA-C [address] [place] [address] 07/03/2023 Hem/Onc Treatment Hematology Oncology A, Infusion Chair [address] [place] [address] 07/03/2023 Appointment Radiology 07/03/2023 Office Visit Vascular Surgery Robin Burleson MD [address] [place] [address] 07/04/2023 Laboratory Laboratory [facility] [address] [place] [address] 07/05/2023 Office Visit Hematology Oncology Luann De La Cruz MD [address] [place] [address] 07/05/2023 Hem/Onc Treatment Hematology Oncology [place], Chair 5 Hem Onc Scenery [address] [place] [address] 07/10/2023 Office Visit Family Medicine Savanah Geiger, [address] [place] [address] Scheduled Procedures Name Priority Associated [...] Additional history exists CKD PHOS USE SMARTSET 96425 2024 02/13/2023, 0 02/11/2021 O2 ASSESSMENT COMPLETED IN PAST YEAR FOR COPD 05/10/2024 05/10/2023 CKD HGB USE SMARTSET 75571 05/23/202405/23, 05/23/2023, 05/09/2023, Additional history exists LUNG CANCER SCREENING - USE SMARTSET 71453 Completed 03/14/2022, 06/03/2020, 05/27/2020, Additional history exists [...] Primary documented in this encounter Care Teams Pulmonologist Intensivist Relationship Specialty Start Date End Date Savanah Geiger, [address] [place], [place] [phone] PCP - General Family Medicine 04/11/12 documented as of this encounter
--- OUTSIDE RECORDS SUMMARY | 2023-08-22 17:28 | External Medical Summary ---
Author Name Unknown Address Unknown Organization K01[place] [place] [facility] [place]rav [place] [address] Laboratory Report Ordering Provider Test Date Status MARY ANNE LAGUNA 05/23/2023 10:20:21 Final Observation Date Value Abnormality Reference (Units ) Status SYNC LEUKOCYTES IN BLOOD BY AUTOMATED COUNT 05/23/2023 10:20:21 11.16 Above high normal 4.00-10.80 (K/uL) Final Segs 05/23/2023 10:20:21 73.7 40.0-75.0 (%) Final Lymphs % 05/23/2023 10:20:21 10.6 Below low normal 18.0-42.0 (%) Final Monos 05/23/2023 10:20:21 11.3 Above high normal 1.0-11.0 (%) Final Eosinophils 05/23/2023 10:20:21 2.6 0.0-6.0 (%) Final Basos 05/23/2023 10:20:21 0.6 0.0-2.0 (%) Final Immature Granulocyte, Percent 05/23/2023 10:20:21 1.2 0.0-2.0 (%) Final Absolute Segs 05/23/2023 10:20:21 8.23 Above high normal 1.80-7.70 (K/uL) Final Lymphs, absolute 05/23/2023 10:20:21 1.18 1.00-4.80 (K/ul) Final Monos, Abs 05/23/2023 10:20:21 1.26 Above high normal 0.00-1.10 (K/uL) Final Eos, Abs 05/23/2023 10:20:21 0.29 0.00-0.70 (K/uL) Final Basos, Abs 05/23/2023 10:20:21 0.07 0.00-0.20 (K/uL) Final Immature Granulocytes, Number 05/23/2023 10:20:21 0.13 0.00-0.20 (K/uL) Final Performing Location [facility] [place] [facility] [address]. [facility] [address]
--- OUTSIDE RECORDS SUMMARY | 2023-08-22 17:28 | External Medical Summary | Summary of Care ---
Author Name Unknown Organization [facility] Address [address] [place] [address] Phone [phone] Care Team Providers Care Dye Range Feeder Name Role Phone aSvanah Geiger DO Primary Care Provider Reason for Visit * Reason Comments Follow Up Chemotherapy Encounter Details Date Type Department Care Team Description 05/10/2023 Office Visit Hematology/Oncology Sharlene Gtz [place] [address] [facility] [place] [address] Luann De La Cruz MD [address] [facility] [place] [address] Multiple myeloma in remission (HCC)* Allergies Active Allergy Reactions Severity Noted Date Comments Calcium Carb-Cholecalciferol 016 documented as of this encounter (statuses as of 05/10/2023) Medications Medication Sig Dispensed Refills Start Date [...] MG Sublingual Tablet Sublingual (Nitrostat)Indicati ons:Atherosclerosis of seminole coronary artery of seminole heart without angina pectoris One tablet under [...] as of this encounter (statuses as of 05/10/2023) Active Problems Problem Noted Date Dyslipidemia 03/29/2022 [...] Bladder cancer 04/24/2020 Coronary artery disease involving seminole heart without angina pectoris 05/22/2019 Old myocardial infarct 12/06/2018 S/p bare metal coronary artery stent Tobacco use disorder 04/16/2012 HTN, goal below 130/80 2012 GERD (gastroesophageal reflux disease) 0 2012 documented as of this encounter (statuses as of 05/10/2023) Resolved Problems Problem Noted Date Resolved Date Dehydration 02/01/2021 03/29/2022 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 Atherosclerosis of coronary artery without angin a pectoris 09/14/2018 03/29/2022 ST elevation myocardial infarction (STEMI) 03/2012/06/2018 Lung nodule 10/14/2015 03/29/2022 ST elevation myocardial infa rction (STEMI) involving other coronary artery 05/19/2015 03/20/2017 ST elevation DE (STEMI) 01/12/2015 09/14/20 18 Myocardial infarction 02/03/2014 09/14/2018 COPD, moderate 08/27/2013 08/06/2020 Overview: Per COPD GOLD Classification Noncompliance 03/13/2013 03/21/2017 Anemia 05/03/2012 03/29/2022 COPD, severity to be determined 04/16/2012 08/27/2013 Dyslipidemia, goal LDL below 70 04/16/2012 03/29/2022 documented as of this encounter (statuses as of 05/10/2023) Immunizations Name Administration Dates Next Due COVID-19 mRNA, LNP-s, No Pre serve, 2-Dose Series (Pfizer) 08/28/2021,02/18/2021,01/28/2021 Pneumococcal Conjugate Vacc, 13 Valent (Prevnar) 07/09/2020 Pneumococcal Polysaccharide PPV23 (Pneumovax) 07/25/2022 Seasonal Influenza, Quadriva lent Hd (Fluzone Hd) 06/23/2022,07/12/2021 Seasonal Influenza, Quadriva lent, No Preserve, Adjuvanted, 65+ Yrs, IM 07/09/2020 Seasonal Influenza, Split, I IV3, With Preserve, [...] Sign Reading Time Taken Comments Blood Pressure 130/83 05/10/2023 9:50 AM EDT Pulse 80 05/10/2023 9:50 AM EDT Temperature 36.9 C (98.4 F) 05/10/2023 9:50 AM ED T Respiratory Rate 16 05/10/2023 9:50 AM EDT Oxygen Saturation 91% 05/10/2023 9:50 AM EDT Inhaled Oxygen Concentration - - Weight 74.5 kg (164 lb 4.8 oz) 05/10/2023 9:50 A M EDT Height - - Body Mass Index 26.52 01/05/2023 8:34 AM EDT documented in this encounter Progress Notes * Luann De La Cruz MD - 05/10/2023 9:46 AM EDT Outpatient Consult Note Data Source: Patient, Epic record. Data Source: Patient, Epic record. 03/29/2023 9:32 AM Brian [place] [id number] 73 year old Patient Encounter: HEMATOLOGY/ONCOLOGY [facility] Cancer Diagnosis: - multiple myeloma, IgG lambda R-ISS Staging: III - bladder tumor. 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 He was treated [id number]/14/2020 and received last dose of Velcade on [...] diagnosis. The block is being sent o [facility] for ancillary studies and the testing report [...] weeks BCG every 6 months Interval History: He had episode of gastritis which has resolved now. Overall clinically he is stable. Patient deniesany headache, dizziness, blurred vision, chest pain, shortness breath palpitation, bleeding, bruising, nausea, vomiting, fever, night sweats, weight loss, hematuria, hematochezia. LABS/IMAGING: Results for orders placed or performed in visit on 05/09/23 COMPREHENSIVE METABOLIC PANEL Result Value Ref Range BUN 24 (H) 6 - 20 mg/dL Creatinine 1.4 (H) 0.6 - 1.2 mg/dL Estimated Glomerular Filtration Rate 55 (L) >=60 mL/min Sodium 135 135 - 146 mmol/L Potassium 4.5 3.5 - 5.1 mmol/L Chloride 102 98 - 107 mmol/L CO2 21 (L) 22 - 32 mmol/L Anion Gap 12 7 - 15 mmol/L Glucose 111 70 - 120 mg/dL Albumin 3.9 3.8 - 5.0 g/dL AST 16 10 - 50 U/L Alkaline Phosphatase 107 35 - 130 U/L Bilirubin, Total 0.5 <=1.2 mg/dL Calcium 8.4 8.4 - 10.2 mg/dL Protein 5.7 (L) 6.0 - 8.3 g/dL ALT 18 10 - 50 U/L IMMUNOGLOBULIN QUANTITATIVE Result Value Ref Range IgG 547 (L) 700 - 1,600 mg/dL IgA 104 70 - 400 mg/dL IgM 11 (L) 40 - 230 mg/dL SERUM FREE LIGHT CHAINS Result Value Ref Range [place] Free Light Chains, Serum 17.23 3.30 - 19.40 mg/L Lambda Free Light Chains, Serum 20.38 5.71 - 26.30 mg/L [place] Lambda Free Light Chains Ratio 0.85 0.26 - 1.65 CBC Result Value Ref Range WBC 11.79 (H) 4.00 - 10.80 K/uL RBC 3.70 4.50 - 5.25 M/uL HGB 11.7 (L) 14.0 - 16.8 g/dL HCT 38.3 (L) 40.0 - 48.4 % MCV 103.5 82.0 - 99.5 fL MCH 31.6 27.0 - 34.0 pg MCHC 30.5 32.0 - 36.0 g/dL RDW 16.0 11.5 - 15.5 % PLT 204 140 - 400 K/uL MPV 11.3 6.6 - 11.1 fL nRBCs 0 <=0 /100 WBCs DIFFERENTIAL, AUTOMATED Result Value Ref Range WBC 11.79 (H) 4.00 - 10.80 K/uL Neutrophils % 74.5 40.0 - 75.0 % Lymphocytes % 9.5 (L) 18.0 - 42.0 % Monocytes % 13.7 (H) 1.0 - 11.0 % Eosinophils % 1.5 0.0 - 6.0 % Basophils % 0.2 0.0 - 2.0 % Immature Granulocytes % 0.6 0.0 - 2.0 % Absolute Neutrophils 8.79 (H) 1.80 - 7.70 K/uL Absolute Lymphocytes 1.12 1.00 - 4.80 K/ul Absolute Monocytes 1.61 (H) 0.00 - 1.10 K/uL Absolute Eosinophils 0.18 0.00 - 0.70 K/uL Absolute Basophils 0.02 0.00 - 0.20 K/uL Absolute Immature Granulocytes 0.07 0.00 - 0.20 K/uL *Note: Due to a large number of results and/or encounters for the requested time period, some results have not been displayed. A complete set of results can be found in Results Review. Creatinine is stable and the rest of the blood tests are in acceptable range REVIEW OF SYSTEMS: General: No Fever, chills, [...] pain Gastrointestinal: No abdominal pain, nausea, vomiting, episodes of diarrhea, No rectal pain or bleeding Genitourinary: Denies Hematuria or dysuria Musculoskeletal: No bone pain Neurologic: No numbness, weakness, neuropathic pain or [...] tablets) once a week 40 Tablet 5 traMADol HCl 50 MG Oral Tablet (Ultram) Take 1 Tablet by mouth every 6 hours as needed for Pain, Moderate. 30 Tablet 0 Nitroglycerin 0.4 MG Sublingual Tablet Sublingual (Nitrostat) [...] BY MOUTH EVERY DAY 90 Tablet 3 Lenalidomide 10 MG Oral Capsule (Revlimid) TAKE 1 CAPSULE BY MOUTH 1 TIME A DAY FOR 14 DAYS ON THEN7 DAYS OFF 14 Capsule 0 Mirtazapine 15 MG Oral Tablet (Remeron) TAKE 1 TAB BY MOUTH AT BEDTIME. TO HELP WITH APPETITE, AND MOOD. 90 Tablet 1 Famotidine 20 MG Oral Tablet (Pepcid) TAKE 1 TABLET BY MOUTH TWICE A DAY 180 Tablet 3 No current facility-administered medications for this visit. Social History Tobacco Use Smoking status: Some Days Packs/day: 1.00 Years: 40.00 Pack years: 40.00 Types: Cigarettes Last attempt to quit: 04/16/2020 Years since quittin.0 Passive exposure: Current Smokeless tobacco: Never Vaping Use Vaping Use: Never used Substance Use Topics Alcohol use: No Comment: chronic alcoholic, sober for years now Drug use: Yes Types: Marijuana Comment: 2 times a day Review of patient's allergies indicates: Allergen Reactions Calcium Carb-Cholecalciferol PHYSICAL EXAMINATION: General Appearance: Healthy appearing patient in no acute distress There were no vitals taken for this visit. Vitals reviewed. HEENT: No oral or pharyngeal [...] Extremeties: Good pulses bilaterally, no peripheral edema. Musculoskeletal: No pain on palpation over bony [...] IgG level. Treatment was resumed on 12/06/2022. He had episode of gastritis which has resolved now. Overall clinically he is stable. All his blood counts are in acceptable range. Discussed with the patient about diagnosis and reviewed all the available blood test result with him. PLAN: Continue current treatment. He will return clinic for follow-up in 2 months with CBC, CMP and myeloma panel. The [...] in this encounter Nursing Notes * Wanda Silva, RESIDENT ATHLETIC TRAINER - 05/10/2023 9:50 AM EDT Patient identifed by name and birthdate Do you have any concerns about pain management for today's visit? No Living Will or Advance Directive for Health Care as noted on the problem list. [facility] is a way you can talk to your provider on line through e-mail. Would you like to sign up? I can activate it for you? ALREADY ACTIVE Filed Vitals: 05/10/23 0950 BP: 130/83 Pulse: 80 Resp: 16 Temp: 36.9 C (98.4 F) TempSrc: Tympanic SpO2: 91% Weight: 74.5 kg (164 lb 4.8 oz) Patient was instructed to not get [...] Encounters Date Type Specialty Care Team Description 05/19/2023 Scheduled Telephone Pharmacy [facility] Hem/Onc Tech [address] [place] [address] 05/23/2023 Laboratory Laboratory [facility] Laboratory [address] [place] [address] 05/24/2023 Hem/Onc Treatment Hematology Oncology [place], Chair 9 Hem Onc Sc[address]ery [address] [place] [address] 06/06/2023 Laboratory Laboratory [place], Laboratory [address] [place] [address] 06/07/2023 Pharmacy Pharmacy [facility] Hem/Onc [address] [place] [address] 06/07/2023 Hem/Onc Treatment Hematology Oncology [place], Chair 2 Hem Onc Scenery [address] [place] [address] 06/20/2023 Laboratory Laboratory [facility] Laboratory [address] [place] [address] 06/21/2023 Hem/Onc Treatment Hematology Oncology [place], Chair 8 Hem Onc Scenery [address] [place] [id number] 06/22/2023 Office Visit Cardiology Leda Myers PA-C [address] [place] [address] 07/03/2023 Hem/Onc Treatment Hematology Oncology A, Infusion Chair [address] [place] [address] 07/03/2023 Appointment Radiology 07/03/2023 Office Visit Vascular Surgery Robin Burleson MD [address] [place] [address] 07/04/2023 Laboratory Laboratory [facility] Laboratory [address] [place] [address] 07/05/2023 Office Visit Hematology Oncology Luann De La Cruz MD [address] [place] [address] 07/05/2023 Hem/Onc Treatment Hematology Oncology [place], Chair 5 Hem Onc Scenery [address] [place] [address] 07/10/2023 Office Visit Family Medicine Savanah Geiger DO [address] [place] [address] Scheduled Orders Name Type Priority Associated Diagnoses Orde r Schedule CBC WITH WBC DIFFERENTIAL Lab Routine Multiple myeloma in remission (HCC) Expected: 07/05/2023, Expires: 10/18/2023 COMPREHENSIVE METABOLIC PANEL Lab Routine Multiple myeloma in remission ([facility]) Expected: 07/05/2023, Expires: 10/18/2023 IMMUNOGLOBULIN QUANTITATIVE Lab Routine Multiple myeloma in remission ([facility]) Expected: 07/05/2023, Expires: 10/18/2023 SERUM FREE LIGHT CHAINS Lab Routine Multiple myeloma in remission ([facility]) Expected: 07/05/2023, Expires: 10/18/2023 SERUM PROTEIN ELECTROPHORESIS REFLEX PROFILE Lab Routine Multiple myeloma in remission ([facility]) Expected: 07/05/2023, Expires: 10/18/2023 Scheduled Procedures Name Priority Associated Diagnoses Date/Ti [...] 06/23/2022, 07/12/2021, 07/09/2020, Additional history exists GFR 11/09/2023 05/09/2023, 08/0 09/2022, 04/11/2023, Additional history exists CKD PHOS USE SMARTSET 74955 2024 02/13/2023, 0 02/11/2021 CKD HGB USE SMARTSET 24107 05/09/202405/09, 05/09/2023, 04/25/2023, Additional history exists O2 ASSESSMENT COMPLETED IN PAST YEAR FOR COPD 05/10/2024 05/10/2023 LUNG CANCER SCREENING - USE SMARTSET 43312 Completed 03/14/2022, 06/03/2020, 05/27/2020, Additional history exists [...] Visit Diagnoses Diagnosis Multiple myeloma in remission (HCC)- Primary Multiple myeloma in remission documented in this encounter Care Teams Dye Range Feeder Relationship Specialty Start Date End Date Savanah Geiger, [address] [place] [address] PCP - General Family Medicine 04/11/12 documented as of this encounter
--- OUTSIDE RECORDS SUMMARY | 2023-08-22 17:28 | External Medical Summary ---
Author Name Unknown Address Unknown Organization [id number]:LABORATORY [facility] - [address] [facility] [place] [address] Laboratory Report Ordering Provider Test Date Status MARY ANNE LAGUNA 06/06/2023 09:45:41 Final Observation Date Value Abnormality Reference (Units ) Status BUN 06/06/2023 09:45:41 20 6-20 (mg/dL) Final Creatinine 06/06/2023 09:45:41 1.4 Above high normal 0.6-1.2 (mg/dL) Final Glomerular filtration rate/1.73 sq M.predicted [Volume Rate/Area] in Serum, Plasma or Blood by Creatinine-based formula (CKD-EPI) 06/06/2023 09:45:41 53 Below low normal >=60 (mL/min) Final eGFR is calculated based on the CKD-EPI 2020 equation SODIUM 06/06/2023 09:45:41 137 135-146 (m mol/L) Final Potassium 06/06/2023 09:45:41 4.3 3.5-5.1 (m mol/L) Final Cl 06/06/2023 09:45:41 105 98-107 (mm ol/L) Final CO2 06/06/2023 09:45:41 23 22-32 (mmo l/L) Final Anion gap 06/06/2023 09:45:41 9 7-15 (mmol /L) Final Glucose 06/06/2023 09:45:41 105 70-120 (mg /dL) Final Albumin 06/06/2023 09:45:41 3.9 3.8-5.0 (g /dL) Final AST (Aspartate aminotransferase) 06/06/2023 09:45:41 15 10-50 (U/L) Fin al Alk Phos 06/06/2023 09:45:41 106 35-130 (U/ L) Final Bilirubin, Total 06/06/2023 09:45:41 0.4 <=1 .2 (mg/dL) Final Calcium 06/06/2023 09:45:41 8.4 8.4-10.2 ( mg/dL) Final Protein 06/06/2023 09:45:41 5.7 Below low normal 6.0 -8.3 (g/dL) Final ALT (Alanine aminotransferase) 06/06/2023 09:45:41 20 10-50 (U/L) Andrzej caal Performing Location LABORATORY [facility] - [address] [facility] [address]
--- OUTSIDE RECORDS SUMMARY | 2023-08-22 17:28 | External Medical Summary ---
Author Name Unknown Address Unknown Organization K01:LABORATORY [place] [address] [place] [address] Laboratory Report Ordering Provider Test Date Status MARY ANNE LAGUNA 05/23/2023 10:20:21 Final Observation Date Value Abnormality Reference (Units ) Status WBC, Total 05/23/2023 10:20:21 11.16 Above high normal 4.00-10.80 (K/uL) Final RBC 05/23/2023 10:20:21 3.47 4.50-5.25 (M/uL) Final Hemoglobin 05/23/2023 10:20:21 11.1 Below low normal 14.0-16.8 (g/dL) Final HCT 05/23/2023 10:20:21 36.2 Below low normal 40.0-48.4 (%) Final MCV 05/23/2023 10:20:21 104.3 82.0-99.5 (fL) Final MCH 05/23/2023 10:20:21 32.0 27.0-34.0 (pg) Final MCHC 05/23/2023 10:20:21 30.7 32.0-36.0 (g/dL) Final RDW 05/23/2023 10:20:21 16.2 11.5-15.5 (%) Final Platelets 05/23/2023 10:20:21 240 140-400 (K/uL) Final MPV 05/23/2023 10:20:21 12.2 6.6-11.1 (fL) Final Nucleated erythrocytes/100 leukocytes [Ratio] in Blood by Automated count 05/23/2023 10:20:21 0 <=0 (/100 WBCs) Final Performing Location LABORATORY [facility] - [address] [place] [address]
--- OUTSIDE RECORDS SUMMARY | 2023-08-22 17:28 | External Medical Summary ---
Author Name Unknown Address Unknown Organization K01:LABORATORY [facility] - [facility] [address] [place] [address] Laboratory Report Ordering Provider Test Date Status MARY ANNE LAGUNA 06/06/2023 09:45:41 Final Observation Date Value Abnormality Reference (Units ) Status WBC, Total 06/06/2023 09:45:41 7.69 4.00-10.80 (K/uL) Final RBC 06/06/2023 09:45:41 3.70 4.50-5.25 (M/uL) Final Hemoglobin 06/06/2023 09:45:41 12.0 Below low normal 14.0-16.8 (g/dL) Final HCT 06/06/2023 09:45:41 38.7 Below low normal 40.0-48.4 (%) Final MCV 06/06/2023 09:45:41 104.6 82.0-99.5 (fL) Final MCH 06/06/2023 09:45:41 32.4 27.0-34.0 (pg) Final MCHC 06/06/2023 09:45:41 31.0 32.0-36.0 (g/dL) Final RDW 06/06/2023 09:45:41 16.0 11.5-15.5 (%) Final Platelets 06/06/2023 09:45:41 227 140-400 (K/uL) Final MPV 06/06/2023 09:45:41 12.0 6.6-11.1 (fL) Final Nucleated erythrocytes/100 leukocytes [Ratio] in Blood by Automated count 06/06/2023 09:45:41 0 <=0 (/100 WBCs) Final Performing Location LABORATORY [facility] - [facility] [address] [place] [address]
--- OUTSIDE RECORDS SUMMARY | 2023-08-22 17:28 | External Medical Summary | Summary of Care ---
Author Name Unknown Organization [facility] Address [address] [place] [address] Phone [phone] Care Team Providers Care Journeyman Lineman Name Role Phone Savanah Geiger DO Primary Care Provider Reason for Visit * Reason Comments Follow Up Chemotherapy Encounter Details Date Type Department Care Team Description 05/10/2023 Office Visit Hematology/Oncology Sharlene Gtz [place] [address] [facility] [place] [id number] Luann De La Cruz MD [address] [facility] [place] [id number] Multiple myeloma in remission (HCC)* Allergies Active [...] MG Sublingual Tablet Sublingual (Nitrostat)Indicati ons:Atherosclerosis of cabazon coronary artery of cabazon heart without angina pectoris One tablet under [...] Bladder cancer 04/24/2020 Coronary artery disease involving cabazon heart without angina pectoris 05/22/2019 Old myocardial [...] other coronary artery 05/19/2015 03/20/2017 ST elevation [place] (STEMI) 01/12/2015 09/14/20 18 Myocardial infarction 02/03/2014 [...] Epic record. Data Source: Patient, Epic record. Brian [place] [id number] 73 year old Patient Encounter: HEMATOLOGY/ONCOLOGY [facility] Cancer Diagnosis: - multiple myeloma, IgG lambda R-ISS Staging: III - bladder tumor. 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 He was treated [id number]/14/2020 and received last dose of Velcade on [...] diagnosis. The block is being sent o [facility] for ancillary studies and the testing [...] FREE LIGHT CHAINS Result Value Ref Range [place] Free Light Chains, Serum 17.23 3.30 - 19.40 mg/L [place]ambda Free Light Chains, Serum 20.38 5.71 - 26.30 mg/L [place] Lambda Free Light Chains Ratio 0.85 0.26 [...] this encounter Nursing Notes * Wanda Silva, [facility] - 05/10/2023 9:50 AM EDT Patient identifed [...] Care Team Description 05/19/2023 Scheduled Telephone Pharmacy [facility] Hem/Onc Tech [address] [place] [address] 05/23/2023 Laboratory Laboratory [facility] Laboratory [address] [place] [address] 05/24/2023 Hem/Onc Treatment Hematology Oncology [place], Chair 9 Hem Onc Scenery [address] [place] [address] 06/06/2023 Laboratory Laboratory [place], Laboratory [address] [place] [address] 06/07/2023 Pharmacy Pharmacy [facility] Hem/Onc [address] [place] [address] 06/07/2023 Hem/Onc Treatment Hematology Oncology [place], Chair 2 Hem Onc Scenery [address] [place] [address] 06/20/2023 Laboratory Laboratory [place], Laboratory [address] [place] [address] 06/21/2023 Hem/Onc Treatment Hematology Oncology [place], Chair 8 Hem Onc Scenery [address] [place] [id number] 06/22/2023 Office Visit Cardiology Leda Myers PA-C [address] [place] [address] 07/03/2023 Hem/Onc Treatment Hematology Oncology A, Infusion Chair [address] [place] [address] 07/03/2023 Appointment Radiology 07/03/2023 Office Visit Vascular Surgery Robin Burleson MD [address] [place] [address] 07/04/2023 Laboratory Laboratory [facility] Laboratory [address] [place] [address] 07/05/2023 Office Visit Hematology Oncology Luann De La Cruz MD [address] [place] [address] 07/05/2023 Hem/Onc Treatment Hematology Oncology [place], Chair 5 Hem Onc Scenery [address] [place] [id number] 07/10/2023 Office Visit Family Medicine Savanah Geiger DO [address] [place] [address] Scheduled Orders Name Type Priority Associated Diagnoses Orde r Schedule CBC WITH WBC DIFFERENTIAL Lab Routine Multiple myeloma in remission (HCC) Expected: 07/05/2023, Expires: 10/18/2023 COMPREHENSIVE METABOLIC PANEL Lab Routine Multiple myeloma in remission (HCC) Expected: 07/05/2023, Expires: 10/18/2023 IMMUNOGLOBULIN QUANTITATIVE Lab Routine Multiple myeloma in remission (HCC) Expected: 07/05/2023, Expires: 10/18/2023 SERUM FREE LIGHT CHAINS Lab Routine Multiple myeloma in remission (HCC) Expected: 07/05/2023, Expires: 10/18/2023 SERUM PROTEIN ELECTROPHORESIS REFLEX PROFILE Lab Routine Multiple myeloma in remission (HCC) Expected: 07/05/2023, Expires: 10/18/2023 Scheduled Procedures Name [...] Additional history exists CKD PHOS USE SMARTSET 79745 2024 02/13/2023, 0 02/11/2021 CKD HGB USE SMARTSET 70023 05/09/202405/09, 05/09/2023, 04/25/2023, Additional history exists O2 ASSESSMENT COMPLETED IN PAST YEAR FOR COPD 05/10/2024 05/10/2023 LUNG CANCER SCREENING - USE SMARTSET 85875 Completed 03/14/2022, 06/03/2020, 05/27/2020, Additional history exists [...] remission documented in this encounter Care Teams Journeyman Lineman Relationship Specialty Start Date End Date Savanah Geiger, DO [address] [place] [address] PCP - General Family Medicine 04/11/12 documented as of this encounter
--- OUTSIDE RECORDS SUMMARY | 2023-08-22 17:28 | External Medical Summary | Summary of Care ---
Author Name Unknown Organization [facility] Address [address] [place] [address] Phone [phone] Care Team Providers Care Associate Professor Of Radiology Name Role Phone Savanah Geiger DO Primary Care Provider [phone] Reason for Visit * Reason Comments Chemotherapy Velcade * Episode Based Medications (Routine) - Authorized Specialty Diagnoses / Procedures Referred By Contnataliia t Referred To Contact Diagnoses Multiple myeloma not having achieved remission (HCC) Procedures TX INJ., VELCADE 0.1 MG Luann De La Cruz MD [address] [place] [address] Anc Hem/Onc Scenery Tresa [address] [place] [phone] Referral ID Status Reason Start Date Expiration Date V isits Requested Visits Authorized [id number] Authorized 02/22/2022 09/24/2099 99 99 Encounter Details Date Type Department Care Team Description 05/24/2023 Hem/Onc Treatment Hematology/Oncology Treatment, [place] [address] [place] [address] Tresa, Chair 9 Hem Onc Scenery [address] [place] [address] Multiple myeloma not having achieved remission (HCC)* [...] MG Sublingual Tablet Sublingual (Nitrostat)Indicati ons:Atherosclerosis of [place] coronary artery of [place] heart without angina pectoris One tablet under [...] Bladder cancer 04/24/2020 Coronary artery disease involving [place] heart without angina pectoris 05/22/2019 Old myocardial [...] other coronary artery 05/19/2015 03/20/2017 ST elevation [place] (STEMI) 01/12/2015 09/14/20 18 Myocardial infarction 02/03/2014 09/14/2018 COPD, moderate 08/27/2013 08/06/2020 Overview: Per COPD GOLD Classification Noncompliance 03/13/2013 03/21/2017 Anemia 05/03/2012 03/29/2022 COPD, severity to be determined 04/16/2012 08/27/2013 Dyslipidemia, goal LDL below 70 04/16/2012 03/29/2022 documented as of this encounter (statuses as of 05/24/2023) Immunizations Name Administration Dates Next Due COVID-19 mRNA, LNP-s, No Pre serve, 2-Dose Series ([employer]) 08/28/2021,02/18/2021,01/28/2021 Pneumococcal Conjugate Vacc, 13 Valent (Prevnar) [...] Sign Reading Time Taken Comments Blood Pressure 127/87 05/24/2023 10:11 AM EDT Pulse 74 05/24/2023 10:11 AM EDT Temperature 36.4 C (97.6 F) 05/24/2023 10:11 AM E DT Respiratory Rate 18 05/24/2023 10:11 AM EDT Oxygen Saturation - - Inhaled Oxygen Concentration - - Weight 75.8 kg (167 lb) 05/24/2023 10:11 AM EDT Height - - Body Mass Index 26.95 01/05/2023 8:34 AM EDT documented in this encounter Nursing Notes * Tayler Guadalupe RN - 05/24/2023 10:27 AM EDT Ch 5. Pt arrived today for Velcade injection. He had labs performed day prior, results stable. Pt reports his hands have stopped peeling, he used lotion which helped. He goes on to state he continueswith intermittent diarrhea. Encouraged pt to continue to hydrate. He denies any new symptoms or concerns today. Chemo agents Velcade Appetite good Nausea/Vomiting denies Diarrhea intermittent Constipation denies Mucositis denies Fatigue denies Bleeding denies Infection denies Rash denies Numbness tingling denies Pain denies Radiation no ABN Labs stable for pt Alt in Tx: no Return in 2 wk Functional status at today's visit: Fully active, [...] during treatment. Pt discharged in stable condition. documented in this encounter Plan of Treatment Upcoming Encounters Date Type Specialty Care Team Description 06/06/2023 Laboratory Laboratory [place], Laboratory [address] [place] [address] 06/07/2023 Pharmacy Pharmacy [facility] Hem/Onc [address] [place] [address] 06/07/2023 Hem/Onc Treatment Hematology Oncology Tresa, Chair 11 Hem Onc Scenery [address] [place] [address] 06/16/2023 Scheduled Telephone Pharmacy [facility] Hem/Onc Tech [address] [place] [address] 06/20/2023 Laboratory Laboratory [facility] Laboratory [address] [place] [address] 06/21/2023 Hem/Onc Treatment Hematology Oncology [place]resa, Chair 8 Hem Onc Scenery [address] [place] [facility] [place] [address] 06/22/2023 Office Visit Cardiology Leda Myers PA-C [address] [place] [address] 07/03/2023 Hem/Onc Treatment Hematology Oncology A, Infusion Chair [address] [place] [address] 07/03/2023 Appointment Radiology 07/03/2023 Office Visit Vascular Surgery Robin Burleson MD [address] [place], [place] [phone] 07/04/2023 Laboratory Laboratory [facility] Laboratory [address] [place] [address] 07/05/2023 Office Visit Hematology Oncology Luann De La Cruz MD [address] [place] [address] 07/05/2023 Hem/Onc Treatment Hematology Oncology [place], Chair 5 Hem Onc Scenery [address] [place] [address] 07/10/2023 Office Visit Family Medicine Savanah Geiger, [address] [place] [address] Scheduled Procedures Name Priority Associated Diagnoses Date/Ti [...] Additional history exists CKD PHOS USE SMARTSET 61068 2024 02/13/2023, 0 02/11/2021 O2 ASSESSMENT COMPLETED IN PAST YEAR FOR COPD 05/10/2024 05/10/2023 CKD HGB USE SMARTSET 29395 05/23/202405/23, 05/23/2023, 05/09/2023, Additional history exists LUNG CANCER SCREENING - USE SMARTSET 55016 Completed 03/14/2022, 06/03/2020, 05/27/2020, Additional history exists [...] BSA from Recorded weight), Subcutaneous, ONCE, On Mon05/24/23 at 1200, For 1 dose, Caution chemotherapy: Handle with gloves Given 05/24/2023 10:15 AM EDT 2.5 mg Abdomen Left Upper documented in this encounter Care Teams Associate Professor Of Radiology Relationship Specialty Start Date End Date aSvanah Geiger DO [address] [place] [address] PCP - General Family Medicine 04/11/12 documented as of this encounter
--- OUTSIDE RECORDS SUMMARY | 2023-08-22 17:28 | External Medical Summary | Summary of Care ---
Author Name Unknown Organization [facility] Address [address] [place] [address] Phone [phone] Care Team Providers Care Business Objects Consultant Name Role Phone CaseySavanah harry Oswaldo JIMÉNEZ Primary Care Provider [phone] Encounter Details Date Type Department Care Team Description 05/23/2023 Telephone Pharmacy Hematology Oncology [address] [phone] Luann De La Cruz MD [address] [place] [address] Allergies Active Allergy Reactions Severity Noted Date [...] MG Sublingual Tablet Sublingual (Nitrostat)Indicati ons:Atherosclerosis of [place] coronary artery of [place] heart without angina pectoris One tablet under [...] Bladder cancer 04/24/2020 Coronary artery disease involving [place] heart without angina pectoris 05/22/2019 Old myocardial [...] other coronary artery 05/19/2015 03/20/2017 ST elevation [place] (STEMI) 01/12/2015 09/14/20 18 Myocardial infarction 02/03/2014 [...] MANAGEMENT Lenalidomide TREATMENT STATUS NOTE Brian Salinas [id number] Patient Phone Numbers Communication: [facility] called to request Treatment: Medication: Lenalidomide (Revlimid) Indication: multiple myeloma Dose: 10mg daily D1-14 every 21 days Administration: +/- food Start Date: 04/01/22 Primary Poultry Culler/Oncologist: Dr. De La Cruz [facility] called to request lenalidomide Rx. Fernanda Hernandez Membership Advisor III [facility] 05/23/2023, 1:06 PM Time Spent on Encounter: < 5 minutes documented in this encounter Plan of Treatment Upcoming Encounters Date Type Specialty Care Team Description 05/24/2023 Hem/Onc Treatment Hematology Oncology [place], Chair 9 Hem Onc Scenery [address] [place] [address] 06/06/2023 Laboratory Laboratory [address] [address] 06/07/2023 Pharmacy Pharmacy [facility] Hem/Onc [address] [place] [address] 06/07/2023 Hem/Onc Treatment Hematology Oncology [place], Chair 11 Hem Onc Scenery [address] [place] [address] 06/16/2023 Scheduled Telephone Pharmacy [facility] Hem/Onc Tech [address] [place] [address] 06/20/2023 Laboratory Laboratory [facility] Laboratory [address] [place] [address] 06/21/2023 Hem/Onc Treatment Hematology Oncology [place], Chair 8 Hem Onc Scenery [address] [facility] [address] 06/22/2023 Office Visit Cardiology Leda Myers PA-C [address] [place] [address] 07/03/2023 Hem/Onc Treatment Hematology Oncology A, Infusion Chair [address] [place] [address] 07/03/2023 Appointment Radiology 07/03/2023 Office Visit Vascular Surgery Robin Burleson MD [address] [place] [address] 07/04/2023 Laboratory Laboratory [facility] [address] [place] [address] 07/05/2023 Office Visit Hematology Oncology Luann De La Cruz MD [address] [place] [address] 07/05/2023 Hem/Onc Treatment Hematology Oncology [place], Chair 5 Hem Onc Scenery [address] [place] [address] 07/10/2023 Office Visit Family Medicine Savanah Geiger, [address] [place] [address] Scheduled Procedures Name Priority Associated [...] Additional history exists CKD PHOS USE SMARTSET 58049 2024 02/13/2023, 0 02/11/2021 CKD HGB USE SMARTSET 28192 05/09/202405/09, 05/09/2023, 04/25/2023, Additional history exists O2 ASSESSMENT COMPLETED IN PAST YEAR FOR COPD 05/10/2024 05/10/2023 LUNG CANCER SCREENING - USE SMARTSET 78893 Completed 03/14/2022, 06/03/2020, 05/27/2020, Additional history exists [...] Primary documented in this encounter Care Teams Business Objects Consultant Relationship Specialty Start Date End Date Savanah Geiger, [address] [place] [address] PCP - General Family Medicine 04/11/12 documented as of this encounter
--- OUTSIDE RECORDS SUMMARY | 2023-08-22 17:28 | External Medical Summary ---
Author Name Unknown Address Unknown Organization K01:[facility] [place] [address] [facility] [place] [address] Laboratory Report Ordering Provider Test Date Status MARY ANNE LAGUNA 05/23/2023 10:20:21 Final Observation Date Value Abnormality Reference (Units ) Status BUN 05/23/2023 10:20:21 18 6-20 (mg/dL) Final Creatinine 05/23/2023 10:20:21 1.4 Above high normal 0.6-1.2 (mg/dL) Final Glomerular filtration rate/1.73 sq M.predicted [Volume Rate/Area] in Serum, Plasma or Blood by Creatinine-based formula (CKD-EPI) 05/23/2023 10:20:21 55 Below low normal >=60 (mL/min) Final eGFR is calculated based on the CKD-EPI 2020 equation SODIUM 05/23/2023 10:20:21 136 135-146 (m mol/L) Final Potassium 05/23/2023 10:20:21 4.1 3.5-5.1 (m mol/L) Final Cl 05/23/2023 10:20:21 104 98-107 (mm ol/L) Final CO2 05/23/2023 10:20:21 24 22-32 (mmo l/L) Final Anion gap 05/23/2023 10:20:21 8 7-15 (mmol /L) Final Glucose 05/23/2023 10:20:21 95 70-120 (mg /dL) Final Albumin 05/23/2023 10:20:21 3.8 3.8-5.0 (g /dL) Final AST (Aspartate aminotransferase) 05/23/2023 10:20:21 12 10-50 (U/L) Fin al Alk Phos 05/23/2023 10:20:21 97 35-130 (U/ L) Final Bilirubin, Total 05/23/2023 10:20:21 0.5 <=1 .2 (mg/dL) Final Calcium 05/23/2023 10:20:21 8.4 8.4-10.2 ( mg/dL) Final Protein 05/23/2023 10:20:21 5.6 Below low normal 6.0 -8.3 (g/dL) Final ALT (Alanine aminotransferase) 05/23/2023 10:20:21 18 10-50 (U/L) Andrzej caal Performing Location [facility] [place] - [address] [facility] [address]
--- OUTSIDE RECORDS SUMMARY | 2023-08-22 17:28 | External Medical Summary | Summary of Care ---
Author Name Unknown Organization [facility] Address [address] [place] [address] Phone [phone] Care Team Providers Care Data Processing Consultant Name Role Phone Oewn Baires DO Primary Care Provider [phone] Reason for Visit * Reason Comments eRx-Medication Refill Encounter Details Date Type Department Care Team Description 06/02/2023 Refill [facility] [address] [place] [address] Owen Baires DO [address] [place] [address] Multiple myeloma, remission status unspecified (HCC) Allergies Active Allergy Reactions Severity Noted Date Comments Calcium Carb-Cholecalciferol 016 documented as of this encounter (statuses as of 06/05/2023) Medications Medication Sig Dispensed Refills Start Date [...] Sublingual Tablet Sublingual (Nitrostat)Indic ations:Atheroscl erosis of [place] coronary artery of [place] heart without angina pectoris One tablet [...] MODERATE PAIN 30 Tablet 0 06/05/2023 Active traMADol HCl 50 MG Oral Tablet (Ultram)Indicati ons:Multiple myeloma, remission status unspecified (HCC) Take 1 Tablet by mouth every 6 hours as needed for Pain, Moderate. 30 Tablet 0 01/24/2023 3 Discontinued documented as of this encounter (statuses as of 06/05/2023) Active Problems Problem Noted Date Dyslipidemia 03/29/2022 [...] Bladder cancer 04/24/2020 Coronary artery disease involving [place] heart without angina pectoris 05/22/2019 Old myocardial infarct 12/06/2018 S/p bare metal coronary artery stent Tobacco use disorder 04/16/2012 HTN, goal below 130/80 2012 GERD (gastroesophageal reflux disease) 0 2012 documented as of this encounter (statuses as of 06/05/2023) Resolved Problems Problem Noted Date Resolved Date Dehydration 02/01/2021 03/29/2022 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 Atherosclerosis of coronary artery without angin a pectoris 09/14/2018 03/29/2022 ST elevation myocardial infarction (STEMI) 03/2012/06/2018 Lung nodule 10/14/2015 03/29/2022 ST elevation myocardial infa rction (STEMI) involving other coronary artery 05/19/2015 03/20/2017 ST elevation [place] (STEMI) 01/12/2015 09/14/20 18 Myocardial infarction 02/03/2014 09/14/2018 COPD, moderate 08/27/2013 08/06/2020 Overview: Per COPD GOLD Classification Noncompliance 03/13/2013 03/21/2017 Anemia 05/03/2012 03/29/2022 COPD, severity to be determined 04/16/2012 08/27/2013 Dyslipidemia, goal LDL below 70 04/16/2012 03/29/2022 documented as of this encounter (statuses as of 06/05/2023) Immunizations Name Administration Dates Next Due COVID-19 mRNA, LNP-s, No Pre serve, 2-Dose Series ([email or web address]) 08/28/2021,02/18/2021,01/28/2021 Pneumococcal Conjugate Vacc, 13 Valent (Prevnar) [...] Miscellaneous Notes * Telephone Encounter - Owen Baires DO - 06/05/2023 11:20 AM EDTSigned Prescriptions: Disp Refills traMADol HCl 50 MG Oral Tablet (Ultram) 30 Tab*0 Sig: TAKE 1 TABLET BY MOUTH EVERY 6 HOURS NEEDED FOR MODERATE PAIN Authorizing Provider: OWEN BAIRES * Telephone Encounter - Katie Lara [facility] - 06/03/2023 7:13 PM EDTPending Prescriptions: Disp Refills traMADol HCl 50 MG Oral Tablet [Pharmacy M*30 Tab*0 Sig: TAKE 1 TABLET BY MOUTH EVERY 6 HOURS NEEDED FOR MODERATE PAIN * Telephone Encounter - Katie Lara [facility] - 06/03/2023 7:13 PM EDT I have reviewed the patients controlled substance dispensing history in the Prescription Drug Monitoring Program in compliance with the [facility] regulations before prescribing a controlled substance. PDMP checked on 06/03/2023. Pending Prescriptions: Disp Refills traMADol HCl 50 MG Oral Tablet (Ultram) [*30 Tab*0 Sig: TAKE 1 TABLET BY MOUTH EVERY 6 HOURS NEEDED FOR MODERATE PAIN Last Visit: 01/05/2023 (in office), 06/13/2022 (telemedicine) Next Visit: 07/10/2023 Date medication was last filled: 01/24 Date medication is due for refill: 01/30 Pharmacy: [id number] [address] [facility] Is this request for a controlled substance? Yes and Urine Drug Screen Not completed Toxicology results: No results found. However, due to the size of the patient record, not all encounters were searched.Please check Results Review for a complete set of results. Please approve if appropriate. Thanks, Cindy WaldronD Clinical Pharmacist [facility] ([facility]) (formerly Telepharmacy) [phone] 06/03/2023 7:13 PM documented in this encounter Plan of Treatment Upcoming Encounters Date Type Specialty Care Team Description 06/06/2023 Laboratory Laboratory [address] [address] 06/07/[address] [facility] Hem/Onc [address] [place] [address] 06/07/2023 Hem/Onc Treatment Hematology Oncology Tresa, Chair 11 Hem Onc Scenery [address] [facility] [place] [address] 06/16/2023 Scheduled Telephone Pharmacy [facility] Hem/Onc Tech [address] [place] [address] 06/20/2023 Laboratory Laboratory [place] Laboratory [address] [place] [address] 06/21/2023 Hem/Onc Treatment Hematology Oncology Tresa, Chair 8 Hem Onc Scenery [address] [facility] [place] [address] 06/22/2023 Office Visit Cardiology Leda Myers PA-C [address] [place] [address] 07/03/2023 Hem/Onc Treatment Hematology Oncology A, Infusion Chair [address] [place] [address] 07/03/2023 Appointment Radiology 07/03/2023 Office Visit Vascular Surgery Robin Burleson MD [address] [place] [address] 07/04/2023 Laboratory Laboratory [place] Laboratory [address] [place] [address] 07/05/2023 Office Visit Hematology Oncology Luann De La Cruz MD [address] [place] [address] 07/05/2023 Hem/Onc Treatment Hematology Oncology [place], Chair 5 Hem Onc Scenery [address] [place] [address] 07/10/2023 Office Visit Family Medicine Owen Baires DO [address] [place] [address] 07/18/2023 Laboratory Laboratory [place] Laboratory [address] [place] [address] 07/19/2023 Hem/Onc Treatment Hematology Oncology Scheduled Procedures Name Priority Associated Diagnoses Date/Ti me COLONOSCOPY FLEXIBLE PROXIMAL DIAGNOSTIC Recall History of colon polyps Health Maintenance Due Date Last Done Comments Albumin/Creatinine Ratio 02/13/1970 Alpha-1 Antitrypsin 02/13/1970 Hepatitis C Screening 02/13/1970 DTaP,Tdap,and Td Vaccines (1 - Tdap) 02/13/1971 Zoster Vaccines (1 of 2) 02/13/1971 DISCUSS TOBACCO CESSATION (REFER TO SMARTSET #5811) 07/12/2018 07/12/2017 (Course Completed) COLONOSCOPY-EVERY 3 YRS AGES 18-100 05/23/2020 05/23/2017 Depression Screening 07/30/2021 07/30/2020, 07/12/2017 (Declined) COVID-19 Vaccine (4 - Pfizer risk series) 10/23/2021 08/28/2021, 02/18/2021, 01/28/2021 Influenza Vaccine (FLU shot) (#1) 2023 06/23/2022, 07/12/2021, 07/09/2020, Additional history exists GFR 11/23/2023 05/23/2023, 04/25, 04/25/2023, Additional history exists CKD PHOS USE SMARTSET 52173 2024 02/13/2023, 0 02/11/2021 O2 ASSESSMENT COMPLETED IN PAST YEAR FOR COPD 05/10/2024 05/10/2023 CKD HGB USE SMARTSET 32505 05/23/202405/23, 05/23/2023, 05/09/2023, Additional history exists LUNG CANCER SCREENING - USE SMARTSET 89264 Completed 03/14/2022, 06/03/2020, 05/27/2020, Additional history exists [...] (HCC) documented in this encounter Care Teams Data Processing Consultant Relationship Specialty Start Date End Date Owen Baires, [address], [place] [id number] PCP - General Family Medicine 04/11/12 documented as of this encounter
--- OUTSIDE RECORDS SUMMARY | 2023-08-22 17:28 | External Medical Summary | Summary of Care ---
Author Name Unknown Organization [facility] Address [address] [place] [address] Phone [phone] Care Team Providers Care Police Records Clerk Name Role Phone GriffinreedSavanah DO Primary Care Provider [phone] Reason for Visit * Reason Comments Outpatient Testing Encounter Details Date Type Department Care Team Description 05/23/2023 Laboratory Laboratory, [place] [address] [place] [address] [place], Laboratory [address] [place] [address] Multiple myeloma not having achieved [...] MG Sublingual Tablet Sublingual (Nitrostat)Indicati ons:Atherosclerosis of [place] coronary artery of [place] heart without angina pectoris One tablet under [...] Bladder cancer 04/24/2020 Coronary artery disease involving [place] heart without angina pectoris 05/22/2019 Old myocardial [...] other coronary artery 05/19/2015 03/20/2017 ST elevation [place] (STEMI) 01/12/2015 09/14/20 18 Myocardial infarction 02/03/2014 [...] Chair 9 Hem Onc Scenery [address] [place] [address] 06/06/2023 Laboratory Laboratory Reji Villegas [address] [place] [address] 06/07/2023 Pharmacy Pharmacy [facility] Hem/Onc [address] [place] [address] 06/07/2023 Hem/Onc Treatment Hematology Oncology Tresa, Chair 11 Hem Onc Scenery [address] [place] [address] 06/16/2023 Scheduled Telephone Pharmacy [facility] Hem/Onc Tech [address] [place] [address] 06/20/2023 Laboratory Laboratory [address] [address] 06/21/2023 Hem/Onc Treatment Hematology Oncology Tresa, Chair 8 Hem Onc Scenery [address] [place] [address] 06/22/2023 Office Visit Cardiology Leda Myers PA-C [address] [facility] [place] [address] 07/03/2023 Hem/Onc Treatment Hematology Oncology A, Infusion Chair [address] [place] [address] 07/03/2023 Appointment Radiology 07/03/2023 Office Visit Vascular Surgery Robin Burleson MD [address] [place] [address] 07/04/2023 Laboratory Laboratory [address] [address] 07/05/2023 Office Visit Hematology Oncology uLann De La Cruz MD [address] [place] [address] 07/05/2023 Hem/Onc Treatment Hematology Oncology [place], Chair 5 Hem Onc [facility] [address] [place] [address] 07/10/2023 Office Visit Family Medicine Savanah Geiger, DO [address] [place] [address] Pending Results Name Type Priority Associated Diagnoses Date /Time COMPREHENSIVE METABOLIC PANEL Lab Routine Multiple myeloma not having achieved remission (HCC) 05/23/2023 10:20 AM EDT CBC WITH WBC DIFFERENTIAL Lab Routine Multiple myeloma not having achieved remission (HCC) 05/23/2023 10:20 AM EDT CBC Lab Routine Multiple myeloma not having achieved remission (HCC) 05/23/2023 10:20 AM EDT DIFFERENTIAL, AUTOMATED Lab Routine Multiple myeloma not having achieved remission (HCC) 05/23/2023 10:20 AM EDT Scheduled Procedures Name Priority Associated [...] Additional history exists CKD PHOS USE SMARTSET 38805 2024 02/13/2023, 0 02/11/2021 CKD HGB USE SMARTSET 94011 05/09/202405/09, 05/09/2023, 04/25/2023, Additional history exists O2 ASSESSMENT COMPLETED IN PAST YEAR FOR COPD 05/10/2024 05/10/2023 LUNG CANCER SCREENING - USE SMARTSET 51447 Completed 03/14/2022, 06/03/2020, 05/27/2020, Additional history exists [...] remission documented in this encounter Care Teams Police Records Clerk Relationship Specialty Start Date End Date Savanah Geiger, DO [address] [place] [address] PCP - General Family Medicine 04/11/12 documented as of this encounter
--- OUTSIDE RECORDS SUMMARY | 2023-08-22 17:28 | External Medical Summary | Summary of Care ---
Author Name Unknown Organization [facility] Address [address] [place] [address] Phone [phone] Care Team Providers Care Electrolysis Investigator Name Role Phone GriffinreedSavanah DO Primary Care Provider [phone] Reason for Visit * Reason Comments Medication Management Encounter Details Date Type Department Care Team Description 06/07/2023 Pharmacy Pharmacy Hematology Oncology [facility] [address] [place] [address] [facility] Hem/Onc [address], [place] [id number] Multiple myeloma, remission status unspecified ([facility])* Allergies Active Allergy Reactions Severity Noted Date [...] MG Sublingual Tablet Sublingual (Nitrostat)Indicati ons:Atherosclerosis of [place] coronary artery of [place] heart without angina pectoris One tablet under [...] Bladder cancer 04/24/2020 Coronary artery disease involving [place] heart without angina pectoris 05/22/2019 Old myocardial [...] other coronary artery 05/19/2015 03/20/2017 ST elevation [place] (STEMI) 01/12/2015 09/14/20 18 Myocardial infarction 02/03/2014 [...] on file documented as of this encounter Progress Notes * Gwen Godfrey, [facility] - 06/07/2023 11:35 AM EDT MEDICATION THERAPY MANAGEMENT LENALIDOMIDE TREATMENT PROGRESS NOTE Brian Salinas [id number] Patient Phone Numbers : Val Communication: Spoke to: Treatment: Medication: Lenalidomide (Revlimid) Indication: multiple myeloma Dose: 10mg daily D1-14 every 21 days Administration: +/- food Start Date: 04/01/22 Primary Coal Equipment Operator/Oncologist: Dr. De La Cruz Additional Therapy: Bortezomib Dexamethasone Supportive Care Meds: Ondansetron Prochlorperazine Prophylactic Meds: ASA Acyclovir Cycle Dates C1 04/01 - 04/14 C2 04/22 - 05/05 C3 05/13 - 05/26 C4 06/03 - 06/16 C5 06/24 - 07/07 C6 07/15 - 07/28 C7 Delayed d/t pt preference 9 day cycle 12/21 - 12/29 C14 05/11 - 05/24 C15 06/01 - 06/14 C16 06/22 - 07/05 (anticipated) Interval History: Per OV 06/22, delay treatment by one week then change bortezomib to every other week Per TE 06/23, pt to start C5 Revlimid as scheduled 06/24/22 Per TE 07/20/22, pt to HOLD treatment until next OV due to declining status and continue monthly labs Per OV 09/12/22, pt wishes to continue to HOLD treatment Per TE 11/16/22, pt has disease recurrence and needs to resume treatment. Per addendum 12/02/22, pt agreeable to resume VRd treatment Confirmed cycle date as above Reports increased leg cramps. Denies supportive care for symptom relief No concerns, tolerating therapy well Changes to medication list since last visit? No Assessment and Plan: WBC/ANC declining to WNL Hgb improving All other labs stable Advised to ensure pt is adequately hydrated. Advised to drink electrolyte supplement such as Gatorade, Powerade, Liquid IV, etc. And contact office if cramps increase in frequency or severity. replied with understanding Continue current therapy and q2wk labs (next due with OV) Assessment of compliance: compliant Assessment of adverse effects attributed to drug therapy: DVT - absent Rash - absent Diarrhea/Constipation - absent Edema - absent Dose adjustment needed based on lab or adverse drug reaction? No Follow up: 4 weeks OV/labs; 8 weeks MTM Gwen Godfrey, PharmD, BCOP Clinical Pharmacist, [facility] Oral Chemotherapy [facility] 06/07/2023, 12:22 PM Pertinent labs: Latest Reference Range & Units 05/09/23 10:15 05/23/23 10:20 06/06/23 09:45 WBC 4.00 - 10.80 K/uL 11.79 (H) 11.16 (H) 7.69 HGB 14.0 - 16.8 g/dL 11.7 (L) 11.1 (L) 12.0 (L) HCT 40.0 - 48.4 % 38.3 (L) 36.2 (L) 38.7 (L) MCV 82.0 - 99.5 fL 103.5 104.3 104.6 PLT 140 - 400 K/uL 204 240 227 Absolute Neutrophils 1.80 - 7.70 K/uL 8.79 (H) 8.23 (H) 5.30 Latest Reference Range & Units 05/09/23 10:05/23/23 10:20 06/06/23 09:45 BUN 6 - 20 mg/dL 24 (H) 18 20 Creatinine 0.6 - 1.2 mg/dL 1.4 (H) 1.4 (H) 1.4 (H) Estimated Glomerular Filtration Rate >=60 mL/min 55 (L) 55 (L) 53 (L) Latest Reference Range & Units 05/09/23 10:15 05/23/23 10:20 06/06/23 09:45 Albumin 3.8 - 5.0 g/dL 3.9 3.8 3.9 AST 10 - 50 U/L 16 12 15 ALT 10 - 50 U/L 18 18 20 Alkaline Phosphatase 35 - 130 U/L 107 97 106 Bilirubin, Total <=1.2 mg/dL 0.5 0.5 0.4 Suggested labs (multiple myeloma): CBCd q1wk x 2 cycles, D1 and D15 of cycle 3, then q4wk thereafter; SCr/LFTs/TSH baseline, then q2-3mo; tests 2 negative test 10 to 14 days prior to initiation and w/in 24hr of treatment initiation, q1wk x 1 mo, then q2-4wk through 4 weeks after therapy d/c Time Spent on Encounter: 6 - 10 minutes Encounter Group: Hematology Encounter Interventions Item Category: Oral Chemotherapy Lenalidomide Problem/Rationale: Safety: Needs additional monitoring - Medication Requires monitoring Pharmacist Intervention(s): Lab monitoring, Non-pharmacological intervention provided, and Toxicitymonitoring Magnitude of Intervention: Monitoring with direction (Level 1) documented in this encounter Plan of Treatment Upcoming Encounters Date Type Specialty Care Team Description 06/16/2023 Scheduled Telephone Pharmacy Magan Benjamin Hem/Onc Tech [address] [place] [address] 06/20/2023 Laboratory Laboratory [facility] [address] [place] [address] 06/21/2023 Hem/Onc Treatment Hematology Oncology Tresa, Chair 8 Hem Onc Scenery [address] [place] [address] 06/22/2023 Office Visit Cardiology Leda Myers PA-C [address] [place] [address] 07/03/2023 Hem/Onc Treatment Hematology Oncology A, Infusion Chair [address] [place] [address] 07/03/2023 Appointment Radiology 07/03/2023 Office Visit Vascular Surgery Robin Burleson MD [address] [place] [address] 07/04/2023 Laboratory Laboratory [facility] [address] [place] [address] 07/05/2023 Office Visit Hematology Oncology Luann De La Cruz MD [address] [place] [address] 07/05/2023 Hem/Onc Treatment Hematology Oncology Tresa, Chair 5 Hem Onc Scenery [address] [place] [address] 07/10/2023 Office Visit Family Medicine Savanah Geiger DO [address], [place] [phone] 07/18/2023 Laboratory Laboratory [facility] [address] [place] [address] 07/19/2023 Hem/Onc Treatment Hematology Oncology Scheduled Procedures Name Priority Associated Diagnoses Date/Ti me COLONOSCOPY FLEXIBLE PROXIMAL DIAGNOSTIC Recall History of colon polyps Health Maintenance Due Date Last Done Comments Albumin/Creatinine Ratio 02/13/1970 Alpha-1 Antitrypsin 02/13/1970 Hepatitis C Screening 02/13/1970 DTaP,Tdap,and Td Vaccines (1 - Tdap) 02/13/1971 Zoster Vaccines (1 of 2) 02/13/1971 DISCUSS TOBACCO CESSATION (REFER TO SMARTSET #8033) 07/12/2018 07/12/2017 (Course Completed) COLONOSCOPY-EVERY 3 YRS AGES 18-100 05/23/2020 05/23/2017 Depression Screening 07/30/2021 07/30/2020, 07/12/2017 (Declined) COVID-19 Vaccine (4 - Pfizer risk series) 10/23/2021 08/28/2021, 02/18/2021, 01/28/2021 Influenza Vaccine (FLU shot) (#1) 2023 06/23/2022, 07/12/2021, 07/09/2020, Additional history exists GFR 12/05/2023 06/06/2023, 04/26, 05/09/2023, Additional history exists CKD PHOS USE SMARTSET 83225 2024 02/13/2023, 0 02/11/2021 O2 ASSESSMENT COMPLETED IN PAST YEAR FOR COPD 05/10/2024 05/10/2023 CKD HGB USE SMARTSET 46358 06/06/202406/06, 06/06/2023, 05/23/2023, Additional history exists LUNG CANCER SCREENING - USE SMARTSET 55648 Completed 03/14/2022, 06/03/2020, 05/27/2020, Additional history exists [...] Primary documented in this encounter Care Teams Electrolysis Investigator Relationship Specialty Start Date End Date Savanah Geiger, [address] [place] [address] PCP - General Family Medicine 04/11/12 documented as of this encounter
--- OUTSIDE RECORDS SUMMARY | 2023-08-22 17:28 | External Medical Summary | Summary of Care ---
Author Name Unknown Organization [facility] Address [address] [place] [address] Phone [phone] Care Team Providers Care Heat Sealing Machine Operator Name Role Phone GriffinreedSavanah DO Primary Care Provider Reason for Visit * Reason Comments Outpatient Testing Encounter Details Date Type Department Care Team Description 06/06/2023 Laboratory Laboratory, [place] [address] [place] [address] [place] [address] [place] [address] Multiple myeloma not having achieved remission (HCC) Allergies Active Allergy Reactions Severity Noted Date Comments Calcium Carb-Cholecalciferol 016 documented as of this encounter (statuses as of 06/06/2023) Medications Medication Sig Dispensed Refills Start Date [...] MG Sublingual Tablet Sublingual (Nitrostat)Indicati ons:Atherosclerosis of [place] coronary artery of [place] heart without angina pectoris One tablet under [...] as of this encounter (statuses as of 06/06/2023) Active Problems Problem Noted Date Dyslipidemia 03/29/2022 [...] Bladder cancer 04/24/2020 Coronary artery disease involving [place] heart without angina pectoris 05/22/2019 Old myocardial infarct 12/06/2018 S/p bare metal coronary artery stent Tobacco use disorder 04/16/2012 HTN, goal below 130/80 2012 GERD (gastroesophageal reflux disease) 0 2012 documented as of this encounter (statuses as of 06/06/2023) Resolved Problems Problem Noted Date Resolved Date Dehydration 02/01/2021 03/29/2022 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 Atherosclerosis of coronary artery without angin a pectoris 09/14/2018 03/29/2022 ST elevation myocardial infarction (STEMI) 03/2012/06/2018 Lung nodule 10/14/2015 03/29/2022 ST elevation myocardial infa rction (STEMI) involving other coronary artery 05/19/2015 03/20/2017 ST elevation [place] (STEMI) 01/12/2015 09/14/20 18 Myocardial infarction 02/03/2014 09/14/2018 COPD, moderate 08/27/2013 08/06/2020 Overview: Per COPD GOLD Classification Noncompliance 03/13/2013 03/21/2017 Anemia 05/03/2012 03/29/2022 COPD, severity to be determined 04/16/2012 08/27/2013 Dyslipidemia, goal LDL below 70 04/16/2012 03/29/2022 documented as of this encounter (statuses as of 06/06/2023) Immunizations Name Administration Dates Next Due COVID-19 [...] Encounters Date Type Specialty Care Team Description 06/07/2023 Pharmacy [facility]acy [facility] Hem/Onc [address] [facility] [place] [address] 06/07/2023 Hem/Onc Treatment Hematology Oncology [place], Chair 11 Hem Onc Scenery [address] [place] [address] 06/16/2023 Scheduled Telephone Pharmacy [facility] Hem/Onc Tech [address] [place] [address] 06/20/2023 Laboratory Laboratory [facility] [address] [place] [address] 06/21/2023 Hem/Onc Treatment Hematology Oncology Tresa, Chair 8 Hem Onc Scenery [address] [place] [address] 06/22/2023 Office Visit Cardiology Leda Myers PA-C [address] [place] [address] 07/03/2023 Hem/Onc Treatment Hematology Oncology A, Infusion Chair [address] [place] [address] 07/03/2023 Appointment Radiology 07/03/2023 Office Visit Vascular Surgery Robin Burleson MD [address] [place] [address] 07/04/2023 Laboratory Laboratory [facility] [address] [place] [address] 07/05/2023 Office Visit Hematology Oncology Luann De La Cruz MD [address] [place] [address] 07/05/2023 Hem/Onc Treatment Hematology Oncology Tresa, Chair 5 Hem Onc Scenery [address] [place] [address] 07/10/2023 Office Visit Family Medicine Savanah Geiger, [address] [place] [address] 07/18/2023 Laboratory Laboratory [facility] [address] [place] [address] 07/19/2023 Hem/Onc Treatment Hematology Oncology Pending Results Name Type Priority Associated Diagnoses Date /Time COMPREHENSIVE METABOLIC PANEL Lab Routine Multiple myeloma not having achieved remission (HCC) 06/06/2023 9:45 AM EDT CBC WITH WBC DIFFERENTIAL Lab Routine Multiple myeloma not having achieved remission (HCC) 06/06/2023 9:45 AM EDT CBC Lab Routine Multiple myeloma not having achieved remission (HCC) 06/06/2023 9:45 AM EDT DIFFERENTIAL, AUTOMATED Lab Routine Multiple myeloma not having achieved remission (HCC) 06/06/2023 9:45 AM EDT Scheduled Procedures Name Priority Associated [...] Additional history exists CKD PHOS USE SMARTSET 23637 2024 02/13/2023, 0 02/11/2021 O2 ASSESSMENT COMPLETED IN PAST YEAR FOR COPD 05/10/2024 05/10/2023 CKD HGB USE SMARTSET 49341 05/23/202405/23, 05/23/2023, 05/09/2023, Additional history exists LUNG CANCER SCREENING - USE SMARTSET 07214 Completed 03/14/2022, 06/03/2020, 05/27/2020, Additional history exists [...] remission documented in this encounter Care Teams Heat Sealing Machine Operator Relationship Specialty Start Date End Date Savanah Geiger, [address] [place] [address] PCP - General Family Medicine 04/11/12 documented as of this encounter
--- OUTSIDE RECORDS SUMMARY | 2023-08-22 17:29 | External Medical Summary | Summary of Care ---
Author Name Unknown Organization [facility] Address [address] [place] [address] Phone [phone] Care Team Providers Care Store Management Trainee Name Role Phone CaseySavanah harry Oswaldo JIMÉNEZ Primary Care Provider [phone] Encounter Details Date Type Department Care Team Description 05/03/2023 Telephone Pharmacy Hematology Oncology [address] [phone] Luann De La Cruz MD [address] [place] [address] Allergies Active Allergy Reactions Severity Noted Date Comments Calcium Carb-Cholecalciferol 016 documented as of this encounter (statuses as of 05/03/2023) Medications Medication Sig Dispensed Refills Start Date [...] the morning. 90 Tablet 1 08/15/2022 Active Famotidine 20 MG Oral Tablet (Pepcid)Indications :Gastroesophageal reflux disease without esophagitis TAKE 1 TABLET BY MOUTH TWICE A DAY 180 Tablet 1 11/09/2022 Active Probiotic Acidophilus Oral Capsule Take by [...] MG Sublingual Tablet Sublingual (Nitrostat)Indicati ons:Atherosclerosis of [place] coronary artery of [...] AND MOOD. 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 Atherosclerosis of coronary artery without angin a pectoris 09/14/2018 03/29/2022 ST elevation myocardial infarction (STEMI) 03/2012/06/2018 Lung nodule 10/14/2015 03/29/2022 ST elevation myocardial infa rction (STEMI) involving other coronary artery 05/19/2015 03/20/2017 ST elevation [place] (STEMI) 01/12/2015 09/14/20 18 Myocardial infarction 02/03/2014 09/14/2018 COPD, moderate 08/27/2013 08/06/2020 Overview: Per COPD GOLD Classification Noncompliance 03/13/2013 03/21/2017 Anemia 05/03/2012 03/29/2022 COPD, severity to be determined 04/16/2012 08/27/2013 Dyslipidemia, goal LDL below 70 04/16/2012 03/29/2022 documented as of this encounter (statuses as of 05/03/2023) Immunizations Name Administration Dates Next Due COVID-19 [...] Telephone Encounter - Fernanda Hernandez CPhT - 05/03/2023 9:34 AM EDT MEDICATION THERAPY MANAGEMENT Lenalidomide TREATMENT STATUS NOTE Brian Salinas [id number] Patient Phone Numbers Communication: Voicemail received Treatment: Medication:Lenalidomide (Revlimid) Indication:multiple myeloma Dose:10mg daily D1-14 every 21 days Administration:+/- food Start Date:04/01/22 Primary Citizenship Instructor/Oncologist:Dr. De La Cruz Caller: Other: Niurka WOMACK Incoming Request: Requesting refill on oral chemotherapy or supportive care medication Action: Sent telephone encounter to pharmacist for follow-up Additional Notes: Requesting an Rx for Lenalidomide. [facility] Technicians have not been added to Provider portal. Will forward request to Sharlene EPSTEIN. Have there been any updates to adding the Technicians to the Providers portals for future orders? Fernanda Hernandez Division Operations Manager III Oral Chemotherapy Clinic 05/03/2023, 9:39 AM Time Spent on Encounter: < 5 minutes documented in this encounter Plan of Treatment Upcoming Encounters Date Type Specialty Care Team Description 05/10/2023 Laboratory Laboratory [facility] [address] [place] [address] 05/10/2023 Office Visit Hematology Oncology Luann De La Cruz MD [address] [facility] [place] [address] 05/10/2023 Hem/Onc Treatment Hematology Oncology 05/19/[address] [facility] Hem/Onc Tech [address] [place] [address] 06/07/2023 Pharmacy Pharmacy [facility] Hem/Onc [address] [place] [address] 06/22/2023 Office Visit Cardiology Leda Myers PA-C [address] [place] [address] 07/03/2023 Hem/Onc Treatment Hematology Oncology A, Infusion Chair [address] [place], [place] [phone] 07/03/2023 Appointment Radiology 07/03/2023 Office Visit Vascular Surgery Robin Burleson MD [address] [place] [address] 07/10/2023 Office Visit Family Medicine Savanah Geiger, DO [address] [place], [place] [phone] Scheduled Procedures Name Priority Associated Diagnoses Date/Ti [...] 06/23/2022, 07/12/2021, 07/09/2020, Additional history exists GFR 10/26/2023 04/25/2023, 03/25, 03/29/2023, Additional history exists CKD PHOS USE SMARTSET 28418 2024 02/13/2023, 0 02/11/2021 CKD HGB USE SMARTSET 72720 04/25/202404/25, 04/25/2023, 04/11/2023, Additional history exists O2 ASSESSMENT COMPLETED IN PAST YEAR FOR COPD 04/26/2024 04/26/2023 LUNG CANCER SCREENING - USE SMARTSET 22391 Completed 03/14/2022, 06/03/2020, 05/27/2020, Additional history exists [...] Primary documented in this encounter Care Teams Store Management Trainee Relationship Specialty Start Date End Date Savanah Geiger, [address] [place], [place] [phone] PCP - General Family Medicine 04/11/12 documented as of this encounter
--- OUTSIDE RECORDS SUMMARY | 2023-08-22 17:29 | External Medical Summary | Summary of Care ---
Author Name Unknown Organization [facility] Address [address] [place] [address] Phone [phone] Care Team Providers Care Robotics Application Engineer Name Role Phone Savanah Geiger DO Primary Care Provider [phone] Reason for Visit * Reason Onset Date Comments Medication Refill 05/01/2023 Encounter Details Date Type Department Care Team Description 05/01/2023 Telephone Hematology/Oncology [facility] [address] [place] [address] Luann De La Cruz MD [address] [place] [address] Medication Refill Allergies Active Allergy Reactions Severity Noted Date [...] MG Sublingual Tablet Sublingual (Nitrostat)Indicati ons:Atherosclerosis of [place] coronary artery of [place] heart without angina pectoris One tablet under tongue if needed for chest pain. May repeat 3 times. If chest pain continues, call [phone] Tablet 3 03/20/2023 Active Acyclovir 400 MG Oral Tablet (Zovirax)Indication s:Multiple myeloma not having achieved remission (HCC) TAKE 1 TABLET BY MOUTH EVERY DAY IN THE MORNING AND BEFORE BEDTIME 180 Tablet 3 03/27/2023 Active Lenalidomide 10 MG Oral Capsule (Revlimid)Indicatio ns:Multiple myeloma not having achieved remission (HCC) TAKE 1 CAPSULE BY MOUTH 1 TIME A DAY FOR 14 DAYS ON THEN 7 DAYS OFF 14 Capsule 0 04/07/2023 Active Atorvastatin Calcium 80 MG Oral Tablet [...] Bladder cancer 04/24/2020 Coronary artery disease involving [place] heart without angina pectoris 05/22/2019 Old myocardial [...] other coronary artery 05/19/2015 03/20/2017 ST elevation [place] (STEMI) 01/12/2015 09/14/20 18 Myocardial infarction 02/03/2014 [...] encounter Miscellaneous Notes * Telephone Encounter - JOSE Finney - 05/02/2023 12:27 PM EDT PT's is calling in regards to the previous message. She states the pharmacy hasn't received the refill. Please advise. * Telephone Encounter - JOSE Thacker - 05/01/2023 12:44 PM EDT VMM received from [facility] requesting new Rx for Lenalidomide. Magali Waldrop Spinning And Winding Supervisor Pharmacy Hematology Oncology Oral Chemotherapy Clinic Medication Therapy Disease Management [facility] 05/01/23 12:45 PM Time Spent on Encounter: < 5 minutes documented in this encounter Plan of Treatment Upcoming Encounters Date Type Specialty Care Team Description 05/10/2023 Laboratory Laboratory [place], Lab Scenery [address] [place] [address] 05/10/2023 Office Visit Hematology Oncology Luann De La Cruz MD [address] [place] [address] 05/10/2023 Hem/Onc Treatment Hematology Oncology 05/19/2023 Scheduled Telephone Pharmacy [facility] Hem/Onc Tech [address] [place] [address] 06/07/2023 Pharmacy Pharmacy [facility] Hem/Onc [address] [place] [address] 06/22/2023 Office Visit Cardiology Leda Myers PA-C [address] [facility] [place] [address] 07/03/2023 Hem/Onc Treatment Hematology Oncology A, Infusion Chair [address] [place] [address] 07/03/2023 Appointment Radiology 07/03/2023 Office Visit Vascular Surgery Robin Burleson MD [address] [place] [address] 07/10/2023 Office Visit Family Medicine Savanah Geiger, DO [address] [place] [address] Scheduled Procedures Name Priority Associated Diagnoses Date/Ti [...] Additional history exists CKD PHOS USE SMARTSET 37587 2024 02/13/2023, 0 02/11/2021 CKD HGB USE SMARTSET 92589 04/25/202404/25, 04/25/2023, 04/11/2023, Additional history exists O2 ASSESSMENT COMPLETED IN PAST YEAR FOR COPD 04/26/2024 04/26/2023 LUNG CANCER SCREENING - USE SMARTSET 73094 Completed 03/14/2022, 06/03/2020, 05/27/2020, Additional history exists [...] filedocumented as of this encounter Care Teams Robotics Application Engineer Relationship Specialty Start Date End Date Savanah Geiger, DO [address] [place] [address] PCP - General Family Medicine 04/11/12 documented as of this encounter
--- OUTSIDE RECORDS SUMMARY | 2023-08-22 17:29 | External Medical Summary | Summary of Care ---
Author Name Unknown Organization [facility] Address [address] [place] [address] Phone [phone] Care Team Providers Care Structural Architect Name Role Phone Owen Baires DO Primary Care Provider Reason for Visit * Reason Comments eRx-Medication Refill Encounter Details Date Type Department Care Team Description 05/03/2023 Refill [facility] [address] [place] [phone] Owen Baires DO [address], [place] [phone] Gastroesophageal reflux disease without esophagitis Allergies Active Allergy Reactions Severity Noted Date [...] Sublingual Tablet Sublingual (Nitrostat)Indic ations:Atheroscl erosis of [place] coronary artery of [place] heart without angina pectoris One tablet under [...] 04/21/2023 Active Lenalidomide 10 MG Oral Capsule (Revlimid)Indica tions:Multiple myeloma not having achieved remission (HCC) TAKE 1 CAPSULE BY MOUTH 1 TIME A DAY FOR 14 DAYS ON THEN 7 DAYS OFF 14 Capsule 0 05/03/2023 Active Mirtazapine 15 MG Oral Tablet (Remeron)Indicat ions:Poor appetite TAKE 1 TAB BY MOUTH AT BEDTIME. TO HELP WITH APPETITE, AND MOOD. 90 Tablet 1 05/01/2023 Active Famotidine 20 MG Oral Tablet (Pepcid)Indicati ons:Gastroesopha geal reflux disease without esophagitis TAKE 1 TABLET BY MOUTH TWICE A DAY 180 Tablet 3 05/03/2023 Active Famotidine 20 MG Oral Tablet (Pepcid)Indicati ons:Gastroesopha geal reflux disease without esophagitis TAKE 1 TABLET BY MOUTH TWICE A DAY 180 Tablet 1 11/09/2022 3 Discontinued documented as of this encounter [...] Bladder cancer 04/24/2020 Coronary artery disease involving [place] heart without angina pectoris 05/22/2019 Old myocardial [...] mRNA, LNP-s, No Pre serve, 2-Dose Series ([employer]) 08/28/2021,02/18/2021,01/28/2021 Pneumococcal Conjugate Vacc, 13 Valent (Prevnar) [...] encounter Miscellaneous Notes * Telephone Encounter - Tom Camara [facility] - 05/03/2023 11:59 AM EDTSigned Prescriptions: Disp Refills Famotidine 20 MG Oral Tablet (Pepcid) 180 Ta*3 Sig: TAKE 1 TABLET BY MOUTH TWICE A DAYAuthorizing Provider: OWEN BAIRES User: TOM CAMARA------ documented in this encounter Plan of Treatment Upcoming Encounters Date Type Specialty Care Team Description 05/10/2023 Laboratory Laboratory [facility] Sc[address] [facility] [place] [address] 05/10/2023 Office Visit Hematology Oncology Luann De La Cruz MD [address] [place] [address] 05/10/2023 Hem/Onc Treatment Hematology Oncology 05/19/2023 Scheduled Telephone Pharmacy [facility] Hem/Onc Tech [address] [place] [address] 06/07/2023 Pharmacy Pharmacy [facility] Hem/Onc [address] [place] [address] 06/22/2023 Office Visit Cardiology Leda Myers PA-C [address] [place] [address] 07/03/2023 Hem/Onc Treatment Hematology Oncology A, Infusion Chair [address] [place] [address] 07/03/2023 Appointment Radiology 07/03/2023 Office Visit Vascular Surgery Robin Burleson MD [address] [place] [address] 07/10/2023 Office Visit Family Medicine Owen Baires, DO [address] [place] [address] Scheduled Procedures Name Priority Associated Diagnoses Date/Ti me COLONOSCOPY FLEXIBLE PROXIMAL DIAGNOSTIC Recall History of colon polyps Health Maintenance Due Date Last Done Comments Albumin/Creatinine Ratio 02/13/1970 Alpha-1 Antitrypsin 02/13/1970 Hepatitis C Screening 02/13/1970 DTaP,Tdap,and Td Vaccines (1 - Tdap) 02/13/1971 Zoster Vaccines (1 of 2) 02/13/1971 DISCUSS TOBACCO CESSATION (REFER TO SMARTSET #2775) 07/12/2018 07/12/2017 (Course Completed) COLONOSCOPY-EVERY 3 YRS AGES 18-100 05/23/2020 05/23/2017 Depression Screening, Annual for Pts 12 and Over 07/30/2021 07/30/2020, 07/12/2017 (Declined) COVID-19 Vaccine (4 - Pfizer risk series) 10/23/2021 08/28/2021, 02/18/2021, 01/28/2021 Influenza Vaccine (FLU shot) (#1) 2023 06/23/2022, 07/12/2021, 07/09/2020, Additional history exists GFR 10/26/2023 04/25/2023, 03/25, 03/29/2023, Additional history exists CKD PHOS USE SMARTSET 33730 2024 02/13/2023, 0 02/11/2021 CKD HGB USE SMARTSET 91969 04/25/202404/25, 04/25/2023, 04/11/2023, Additional history exists O2 ASSESSMENT COMPLETED IN PAST YEAR FOR COPD 04/26/2024 04/26/2023 LUNG CANCER SCREENING - USE SMARTSET 99871 Completed 03/14/2022, 06/03/2020, 05/27/2020, Additional history exists [...] as of this encounter Visit Diagnoses Diagnosis Gastroesophageal reflux disease without esophagitis Esophageal reflux documented in this encounter Care Teams Structural Architect Relationship Specialty Start Date End Date Owen Baires, [address] [place] [address] PCP - General Family Medicine 04/11/12 documented as of this encounter
--- OUTSIDE RECORDS SUMMARY | 2023-08-22 17:29 | External Medical Summary | Summary of Care ---
Author Name Unknown Organization [facility] Address [address] [place] [address] Phone [phone] Care Team Providers Care Jailkeeper Name Role Phone Caseypiero Savanahsunshine Chacon DO Primary Care Provider [phone] Reason for Visit * Reason Comments Outpatient Testing Encounter Details Date Type Department Care Team Description 05/09/2023 Laboratory Laboratory, [place] [address] [place] [address] [place] Laboratory [address] [place] [address] Multiple myeloma in remission (HCC) Allergies Active Allergy Reactions Severity Noted Date Comments Calcium Carb-Cholecalciferol 016 documented as of this encounter (statuses as of 05/09/2023) Medications Medication Sig Dispensed Refills Start Date [...] MG Sublingual Tablet Sublingual (Nitrostat)Indicati ons:Atherosclerosis of [place] coronary artery of [place] heart without angina pectoris One tablet under [...] as of this encounter (statuses as of 05/09/2023) Active Problems Problem Noted Date Dyslipidemia 03/29/2022 [...] Bladder cancer 04/24/2020 Coronary artery disease involving [place] heart without angina pectoris 05/22/2019 Old myocardial infarct 12/06/2018 S/p bare metal coronary artery stent Tobacco use disorder 04/16/2012 HTN, goal below 130/80 2012 GERD (gastroesophageal reflux disease) 0 2012 documented as of this encounter (statuses as of 05/09/2023) Resolved Problems Problem Noted Date Resolved Date Dehydration 02/01/2021 03/29/2022 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 Atherosclerosis of coronary artery without angin a pectoris 09/14/2018 03/29/2022 ST elevation myocardial infarction (STEMI) 03/2012/06/2018 Lung nodule 10/14/2015 03/29/2022 ST elevation myocardial infa rction (STEMI) involving other coronary artery 05/19/2015 03/20/2017 ST elevation [place] (STEMI) 01/12/2015 09/14/20 18 Myocardial infarction 02/03/2014 09/14/2018 COPD, moderate 08/27/2013 08/06/2020 Overview: Per COPD GOLD Classification Noncompliance 03/13/2013 03/21/2017 Anemia 05/03/2012 03/29/2022 COPD, severity to be determined 04/16/2012 08/27/2013 Dyslipidemia, goal LDL below 70 04/16/2012 03/29/2022 documented as of this encounter (statuses as of 05/09/2023) Immunizations Name Administration Dates Next Due COVID-19 [...] Date Type Specialty Care Team Description 05/10/2023 Office Visit Hematology Oncology JonoLuann MD [address] [place] [address] 05/10/2023 Hem/Onc Treatment Hematology Oncology 05/19/2023 Scheduled Telephone Pharmacy [facility] Hem/Onc Tech [address] [place] [address] 06/07/[address] [facility] Hem/Onc [address] [place] [address] 06/22/2023 Office Visit Cardiology Leda Myers PA-C [address] [place] [address] 07/03/2023 Hem/Onc Treatment Hematology Oncology A, Infusion Chair [address] [place] [address] 07/03/2023 Appointment Radiology 07/03/2023 Office Visit Vascular Surgery Robin Burleson MD [address] [place] [address] 07/10/2023 Office Visit Family Medicine Savanah Geiger, DO [address] [place], [place] [phone] Pending Results Name Type Priority Associated Diagnoses Date /Time CBC WITH WBC DIFFERENTIAL Lab Routine Multiple myeloma in remission ([facility]) 05/09/2023 10:15 AM EDT [id number], SERUM Lab Routine Multiple myeloma in remission ([facility]) 05/09/2023 10:15 AM EDT COMPREHENSIVE METABOLIC PANEL Lab Routine Multiple myeloma in remission ([facility]) 05/09/2023 10:15 AM EDT IMMUNOGLOBULIN QUANTITATIVE Lab Routine Multiple myeloma in remission ([facility]) 05/09/2023 10:15 AM EDT SERUM IMMUNOFIXATION Lab Routine Multiple myeloma in remission ([facility]) 05/09/2023 10:15 AM EDT SERUM FREE LIGHT CHAINS Lab Routine Multiple myeloma in remission ([facility]) 05/09/2023 10:15 AM EDT SERUM PROTEIN ELECTROPHORESIS REFLEX PROFILE Lab Routine Multiple myeloma in remission ([facility]) 05/09/2023 10:15 AM EDT CBC Lab Routine Multiple myeloma in remission ([facility]) 05/09/2023 10:15 AM EDT DIFFERENTIAL, AUTOMATED Lab Routine Multiple myeloma in remission (HCC) 05/09/2023 10:15 AM EDT Scheduled Procedures Name Priority Associated [...] Additional history exists CKD PHOS USE SMARTSET 27003 2024 02/13/2023, 0 02/11/2021 CKD HGB USE SMARTSET 90787 04/25/202404/25, 04/25/2023, 04/11/2023, Additional history exists O2 ASSESSMENT COMPLETED IN PAST YEAR FOR COPD 04/26/2024 04/26/2023 LUNG CANCER SCREENING - USE SMARTSET 22981 Completed 03/14/2022, 06/03/2020, 05/27/2020, Additional history exists [...] remission documented in this encounter Care Teams Jailkeeper Relationship Specialty Start Date End Date Savanah Geiger, DO [address] [place] [address] PCP - General Family Medicine 04/11/12 documented as of this encounter
--- OUTSIDE RECORDS SUMMARY | 2023-08-22 17:29 | External Medical Summary ---
Author Name Unknown Address Unknown Organization : Laboratory Report Ordering Provider Test Date Status MARY ANNE LAGUNA 05/09/2023 10:15:12 Final Observation Date Value Abnormality Reference (Units ) Status Beta-2 Microglobulin 05/09/2023 10:15:12 3.96 Above high normal <=2.51 (mg/L) Final This test was performed usin g the Mixon
Immunoturbidimetric method. Values obtained
from different assay methods cannot be used
interchangeably. Beta-2 Microglobulin levels,
regardless of value, should not be interpreted
as absolute evidence of the presence or absence of
disease.

Test Performed at:
[facility][1]
[address]
[place] [address]
Mathew Harry M.D., Ph.D.,Director of Laboratories Performing Location
--- OUTSIDE RECORDS SUMMARY | 2023-08-22 17:29 | External Medical Summary ---
Author Name Unknown Address Unknown Organization [id number]:LABORATORY [facility] - [address] [place] [address] Laboratory Report Ordering Provider Test Date Status MARY ANNE LAGUNA 05/09/2023 10:15:12 Final Observation Date Value Abnormality Reference (Units) Status Immunofixation for Serum or Plasma 05/09/2023 10:15:12 A monoclonal IgG lambda gammopathy is present. Final Performing Location LABORATORY C - [address] [place] [address]
--- OUTSIDE RECORDS SUMMARY | 2023-08-22 17:29 | External Medical Summary ---
Author Name Unknown Address Unknown Organization [id number]:LABORATORY [facility] - [address] [facility] [address] Laboratory Report Ordering Provider Test Date Status MARY ANNE LAGUNA 05/09/2023 10:15:12 Final Observation Date Value Abnormality Reference (Units) Status Protein 10:15:12 5.7 Below low normal 6.0-8.3 (g/dL) Final Albumin/Protein.total [Pure mass fraction] in Serum or Plasma by Electrophoresis 3 10:15:12 2.76 Below low normal 3.30-4.40 (g/dL) Final Alpha 1 globulin/Protein.tota l [Pure mass fraction] in Serum or Plasma by Electrophoresis 3 10:15:12 0.25 0.10-0.30 (g/dL) Final Alpha 2 globulin/Protein.tota l [Pure mass fraction] in Serum or Plasma by Electrophoresis 3 10:15:12 1.25 Above high normal 0.60-1.00 (g/dL) Final Beta globulin/Protein.tota l [Pure mass fraction] in Serum or Plasma by Electrophoresis 10:15:12 0.85 0.80-1.30 (g/dL) Final Gamma globulin/Protein.tota l [Pure mass fraction] in Serum or Plasma by Electrophoresis 3 10:15:12 0.59 Below low normal 0.70-1.70 (g/dL) Final Protein Fractions [Interpretation] in Serum or Plasma by Electrophoresis Narrative 3 10:15:12 A paraprotein is present that has been previously identified as a monoclonal IgG lambda. Decreased gamma fraction. Paraprotein concentration is detectable, but less than 0.5 g/dL, unable to be accurately quantified by this method. Final Performing Location LABORATORY [facility] - [address] [facility] [address]
--- OUTSIDE RECORDS SUMMARY | 2023-08-22 17:29 | External Medical Summary | Summary of Care ---
Author Name Unknown Organization [facility] Address [address] [place] [address] Phone [phone] Care Team Providers Care Decorator Hand Name Role Phone Savanah Geiger DO Primary Care Provider + [phone] Reason for Visit * Reason Comments Medication Administration Velcade * Episode Based Medications (Routine) - Authorized Specialty Diagnoses / Procedures Referred By Contnataliia t Referred To Contact Diagnoses Multiple myeloma not having achieved remission (HCC) Procedures SC INJ., VELCADE 0.1 MG Luann De La Cruz MD [address] [facility] [place] [address] Anc Hem/Onc [facility] [address] [place] [address] Referral ID Status Reason Start Date Expiration Date V isits Requested Visits Authorized [id number] Authorized 02/22/2022 09/24/2099 99 99 Encounter Details Date Type Department Care Team Description 05/10/2023 Hem/Onc Treatment Hematology/Oncology Treatment, [place] [address] [place], [place] [address] Multiple myeloma not having achieved remission (HCC)* [...] MG Sublingual Tablet Sublingual (Nitrostat)Indicati ons:Atherosclerosis of [place] coronary artery of [place] heart without angina pectoris One tablet under [...] Bladder cancer 04/24/2020 Coronary artery disease involving [place] heart without angina pectoris 05/22/2019 Old myocardial [...] other coronary artery 05/19/2015 03/20/2017 ST elevation [place] (STEMI) 01/12/2015 09/14/20 18 Myocardial infarction 02/03/2014 09/14/2018 COPD, moderate 08/27/2013 08/06/2020 Overview: Per COPD GOLD Classification Noncompliance 03/13/2013 03/21/2017 Anemia 05/03/2012 03/29/2022 COPD, severity to be determined 04/16/2012 08/27/2013 Dyslipidemia, goal LDL below 70 04/16/2012 03/29/2022 documented as of this encounter (statuses as of 05/10/2023) Immunizations Name Administration Dates Next Due COVID-19 mRNA, LNP-s, No Pre serve, 2-Dose Series (AQH) 08/28/2021,02/18/2021,01/28/2021 Pneumococcal Conjugate Vacc, 13 Valent (Prevnar) [...] Nursing Notes * Tayler Guadalupe RN - 05/10/2023 11:00 AM EDT Velcade injection administered. Pt tolerated well. Pt discharged in stable condition. * Tayler Guadalupe RN - 05/10/2023 10:54 AM EDT Ch 5. Pt arrived today for Velcade injection. Pt had labs performed day prior, results stable. Pt had appt with Dr. De La Cruz prior to discuss how he has been feeling. Pt c/o some stable chronic neuropathy and some new peeling hands. Dr. De La Cruz is aware, pt encouraged to use lotion. Chemo agents Velcade Appetite good Nausea/Vomiting deniers Diarrhea denies Constipation denies Mucositis denies Fatigue denies Bleeding denies Infection denies Rash denies Numbness tingling stable, chronic, bilat feet Pain denies Radiation no ABN Labs stable Alt in Tx: no Return in 2 wk documented in this encounter Plan of Treatment Upcoming Encounters Date Type Specialty Care Team Description 05/19/2023 Scheduled Telephone Pharmacy [facility] Hem/Onc Tech [address] [place] [facility] [place] [address] 05/23/2023 Laboratory Laboratory [facility], Laboratory [address] [place] [address] 05/24/2023 Hem/Onc Treatment Hematology Oncology [place], Chair [address] Hem Onc [address] [facility] [address] 06/06/2023 Laboratory Laboratory [place], Laboratory [address] [place] [address] 06/07/2023 Pharmacy [facility]acy [facility] Hem/Onc [address] [place] [address] 06/07/2023 Hem/Onc Treatment Hematology Oncology [place], Chair 2 Hem Onc Scenery [address] [place] [address] 06/20/2023 Laboratory Laboratory [address] [address] 06/21/2023 Hem/Onc Treatment Hematology Oncology [place], Chair 8 Hem Onc Scenery [address] [place] [address] 06/22/2023 Office Visit Cardiology Leda Myers PA-C [address] [place] [address] 07/03/2023 Hem/Onc Treatment Hematology Oncology A, Infusion Chair [address] [place] [address] 07/03/2023 Appointment Radiology 07/03/2023 Office Visit Vascular Surgery Robin Burleson MD [address] [place] [address] 07/04/2023 Laboratory Laboratory [address] [address] 07/05/2023 Office Visit Hematology Oncology Luann De La Cruz MD [address] [place] [address] 07/05/2023 Hem/Onc Treatment Hematology Oncology [place], Chair 5 Hem Onc Scenery [address] [place] [address] 07/10/2023 Office Visit Family Medicine Savanah Geiger, DO [address] [place] [address] Scheduled Procedures Name Priority Associated Diagnoses Date/Ti [...] Additional history exists CKD PHOS USE SMARTSET 25703 2024 02/13/2023, 0 02/11/2021 CKD HGB USE SMARTSET 01290 05/09/202405/09, 05/09/2023, 04/25/2023, Additional history exists O2 ASSESSMENT COMPLETED IN PAST YEAR FOR COPD 05/10/2024 05/10/2023 LUNG CANCER SCREENING - USE SMARTSET 01207 Completed 03/14/2022, 06/03/2020, 05/27/2020, Additional history exists [...] BSA from Recorded weight), Subcutaneous, ONCE, On Mon05/10/23 at 1200, For 1 dose, Caution chemotherapy: Handle with gloves Given 05/10/2023 10:22 AM EDT 2.5 mg Abdomen Left Upper documented in this encounter Care Teams Decorator Hand Relationship Specialty Start Date End Date Savanah Geiger, [address] [place] [address] PCP - General Family Medicine 04/11/12 documented as of this encounter
--- OUTSIDE RECORDS SUMMARY | 2023-08-22 17:29 | External Medical Summary ---
Author Name Unknown Address Unknown Organization K01:LABORATORY [facility] - [address] [place] [address] Laboratory Report Ordering Provider Test Date Status MARY ANNE LAGUNA 05/09/2023 10:15:12 Final Observation Date Value Abnormality Reference (Units ) Status IgG 05/09/2023 10:15:12 547 Below low normal 700 -1600 (mg/dL) Final IgA 05/09/2023 10:15:12 104 70-400 (mg /dL) Final IgM 05/09/2023 10:15:12 11 Below low normal 40- 230 (mg/dL) Final Performing Location LABORATORY [facility] - [address] [place] [address]
--- OUTSIDE RECORDS SUMMARY | 2023-08-22 17:29 | External Medical Summary | Summary of Care ---
Author Name Unknown Organization [facility] Address [address] [place] [address] Phone [phone] Care Team Providers Care Plasma Center Technician Name Role Phone GriffinreedSavanah DO Primary Care Provider Reason for Visit * Reason Onset Date Comments Medication Refill 05/01/2023 Encounter Details Date Type Department Care Team Description 05/01/2023 Telephone Hematology/Oncology [facility] [address] [facility] [place] [address] Luann De La Cruz MD [address] [place] [address] Medication Refill Allergies Active Allergy Reactions Severity Noted Date Comments Calcium Carb-Cholecalciferol 016 documented as of this encounter (statuses as of 05/01/2023) Medications Medication Sig Dispensed Refills Start Date [...] as of this encounter (statuses as of 05/01/2023) Active Problems Problem Noted Date Dyslipidemia 03/29/2022 [...] Bladder cancer 04/24/2020 Coronary artery disease involving [place] heart without angina pectoris 05/22/2019 Old myocardial infarct 12/06/2018 S/p bare metal coronary artery stent Tobacco use disorder 04/16/2012 HTN, goal below 130/80 2012 GERD (gastroesophageal reflux disease) 0 2012 documented as of this encounter (statuses as of 05/01/2023) Resolved Problems Problem Noted Date Resolved Date Dehydration 02/01/2021 03/29/2022 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 Atherosclerosis of coronary artery without angin a pectoris 09/14/2018 03/29/2022 ST elevation myocardial infarction (STEMI) 03/2012/06/2018 Lung nodule 10/14/2015 03/29/2022 ST elevation myocardial infa rction (STEMI) involving other coronary artery 05/19/2015 03/20/2017 ST elevation [place] (STEMI) 01/12/2015 09/14/20 18 Myocardial infarction 02/03/2014 09/14/2018 COPD, moderate 08/27/2013 08/06/2020 Overview: Per COPD GOLD Classification Noncompliance 03/13/2013 03/21/2017 Anemia 05/03/2012 03/29/2022 COPD, severity to be determined 04/16/2012 08/27/2013 Dyslipidemia, goal LDL below 70 04/16/2012 03/29/2022 documented as of this encounter (statuses as of 05/01/2023) Immunizations Name Administration Dates Next Due COVID-19 [...] Miscellaneous Notes * Telephone Encounter - JOSE Thacker - 05/01/2023 12:44 PM EDT UMM received from [facility] requesting new Rx for Lenalidomide. Magali Waldrop Crusher Loader Equipment Operator Pharmacy Hematology Oncology Oral Chemotherapy Clinic Medication Therapy Disease Management [facility] 05/01/23 12:45 PM Time Spent on Encounter: < 5 minutes documented in this encounter Plan of Treatment Upcoming Encounters Date Type Specialty Care Team Description 05/10/2023 Laboratory Laboratory [facility] [address] [place] [address] 05/10/2023 Office Visit Hematology Oncology Luann De La Cruz MD [address] [place] [address] 05/10/2023 Hem/Onc Treatment Hematology Oncology 05/19/2023 Scheduled Telephone Pharmacy [facility] Hem/Onc Tech [address] [place] [address] 06/07/[address] [facility] Hem/Onc [address] [place] [address] 06/22/2023 Office Visit Cardiology Leda Myers PA-C [address] [place] [address] 07/03/2023 Hem/Onc Treatment Hematology Oncology A, Infusion Chair [address] [place] [address] 07/03/2023 Appointment Radiology 07/03/2023 Office Visit Vascular Surgery Robin Burleson MD [address] [place] [address] 07/10/2023 Office Visit Family Medicine Savanah Geiger, [address] [place] [address] Scheduled Procedures Name Priority Associated Diagnoses Date/Ti me COLONOSCOPY FLEXIBLE PROXIMAL DIAGNOSTIC Recall History of colon polyps Health Maintenance Due Date Last Done Comments Albumin/Creatinine Ratio 02/13/1970 Alpha-1 Antitrypsin 02/13/1970 Hepatitis C Screening 02/13/1970 DTaP,Tdap,and Td Vaccines (1 - Tdap) 02/13/1971 Zoster Vaccines (1 of 2) 02/13/1971 DISCUSS TOBACCO CESSATION (REFER TO SMARTSET #0458) 07/12/2018 07/12/2017 (Course Completed) COLONOSCOPY-EVERY 3 YRS AGES 18-100 05/23/2020 05/23/2017 Depression Screening, Annual for Pts 12 and Over 07/30/2021 07/30/2020, 07/12/2017 (Declined) COVID-19 Vaccine (4 - Pfizer risk series) 10/23/2021 08/28/2021, 02/18/2021, 01/28/2021 Influenza Vaccine (FLU shot) (#1) 2023 06/23/2022, 07/12/2021, 07/09/2020, Additional history exists GFR 10/26/2023 04/25/2023, 03/25, 03/29/2023, Additional history exists CKD PHOS USE SMARTSET 28040 2024 02/13/2023, 0 02/11/2021 CKD HGB USE SMARTSET 34313 04/25/202404/25, 04/25/2023, 04/11/2023, Additional history exists O2 ASSESSMENT COMPLETED IN PAST YEAR FOR COPD 04/26/2024 04/26/2023 LUNG CANCER SCREENING - USE SMARTSET 57272 Completed 03/14/2022, 06/03/2020, 05/27/2020, Additional history exists [...] filedocumented as of this encounter Care Teams Plasma Center Technician Relationship Specialty Start Date End Date Savanah Geiger, DO [address] [place], [place] [phone] PCP - General Family Medicine 04/11/12 documented as of this encounter
--- OUTSIDE RECORDS SUMMARY | 2023-08-22 17:29 | External Medical Summary ---
Author Name Unknown Address Unknown Organization K01:LABORATORY [facility] [place] - [address] [facility] [place] [address] Laboratory Report Ordering Provider Test Date Status MARY ANNE LAGUNA 05/09/2023 10:15:12 Final Observation Date Value Abnormality Reference (Units ) Status BUN 05/09/2023 10:15:12 24 Above high normal 6-20 (mg/dL) Final Creatinine 05/09/2023 10:15:12 1.4 Above high normal 0.6-1.2 (mg/dL) Final Glomerular filtration rate/1.73 sq M.predicted [Volume Rate/Area] in Serum, Plasma or Blood by Creatinine-based formula (CKD-EPI) 05/09/2023 10:15:12 55 Below low normal >=60 (mL/min) Final eGFR is calculated based on the CKD-EPI 2020 equation SODIUM 05/09/2023 10:15:12 135 135-146 (m mol/L) Final Potassium 05/09/2023 10:15:12 4.5 3.5-5.1 (m mol/L) Final Cl 05/09/2023 10:15:12 102 98-107 (mm ol/L) Final CO2 05/09/2023 10:15:12 21 Below low normal 22- 32 (mmol/L) Final Anion gap 05/09/2023 10:15:12 12 7-15 (mmol /L) Final Glucose 05/09/2023 10:15:12 111 70-120 (mg /dL) Final Albumin 05/09/2023 10:15:12 3.9 3.8-5.0 (g /dL) Final AST (Aspartate aminotransferase) 05/09/2023 10:15:12 16 10-50 (U/L) Fin al Alk Phos 05/09/2023 10:15:12 107 35-130 (U/ L) Final Bilirubin, Total 05/09/2023 10:15:12 0.5 <=1 .2 (mg/dL) Final Calcium 05/09/2023 10:15:12 8.4 8.4-10.2 ( mg/dL) Final Protein 05/09/2023 10:15:12 5.7 Below low normal 6.0 -8.3 (g/dL) Final ALT (Alanine aminotransferase) 05/09/2023 10:15:12 18 10-50 (U/L) Andrzej caal Performing Location LABORATORY [facility] [place] - [address] [facility] [address]
--- OUTSIDE RECORDS SUMMARY | 2023-08-22 17:29 | External Medical Summary | Summary of Care ---
Author Name Unknown Organization [facility] Address [address] [place] [address] Phone [phone] Care Team Providers Care Lace Inspector Name Role Phone CaseySavanah harry Oswaldo JIMÉNEZ Primary Care Provider Encounter Details Date Type Department Care Team Description 05/03/2023 Telephone Pharmacy Hematology Oncology [address] [phone] Luann De La Cruz MD [address] [place] [address] Allergies Active Allergy Reactions Severity Noted Date [...] MG Sublingual Tablet Sublingual (Nitrostat)Indicati ons:Atherosclerosis of [place] coronary artery of [place] heart without angina pectoris One tablet under [...] Bladder cancer 04/24/2020 Coronary artery disease involving [place] heart without angina pectoris 05/22/2019 Old myocardial [...] MANAGEMENT Lenalidomide TREATMENT STATUS NOTE Brian Salinas [id number] Patient Phone Numbers Communication: Voicemail received Treatment: Medication:Lenalidomide (Revlimid) Indication:multiple myeloma Dose:10mg daily D1-14 every 21 days Administration:+/- food Start Date:04/01/22 Primary Rn Clinical/Oncologist:Dr. De La Cruz Caller: Other: Niurka WOMACK Incoming Request: Requesting refill on oral chemotherapy or supportive care medication Action: Sent telephone encounter to pharmacist for follow-up Additional Notes: Requesting an Rx for Lenalidomide. Unable to obtain [facility] authorization number. Technicians have not been added to Provider portal. Will forward request to Sharlene EPSTEIN. Have there been any updates to adding the Technicians to the Providers portals for future orders? Fernanda Hernandez Pelletizer Operator III [facility] 05/03/2023, 9:39 AM Time Spent on Encounter: < 5 minutes documented in this encounter Plan of Treatment Upcoming Encounters Date Type Specialty Care Team Description 05/10/2023 Laboratory Laboratory [facility] [address] [place] [address] 05/10/2023 Office Visit Hematology Oncology Luann De La Cruz MD [address] [facility] [place] [address] 05/10/2023 Hem/Onc Treatment Hematology Oncology 05/19/2023 Scheduled Telephone Pharmacy [facility] Hem/Onc Tech [address] [place] [address] 06/07/2023 Pharmacy Pharmacy [facility] Hem/Onc [address] [place] [address] 06/22/2023 Office Visit Cardiology Leda Myers PA-C [address] [place] [address] 07/03/2023 Hem/Onc Treatment Hematology Oncology A, Infusion Chair [address] [place], [place] [phone] 07/03/2023 Appointment Radiology 07/03/2023 Office Visit Vascular Surgery Robin Burleson MD [address] [place] [address] 07/10/2023 Office Visit Family Medicine Savanah Geiger, DO [address], [place] [phone] Scheduled Procedures Name Priority Associated Diagnoses Date/Ti [...] Additional history exists CKD PHOS USE SMARTSET 19704 2024 02/13/2023, 0 02/11/2021 CKD HGB USE SMARTSET 43937 04/25/202404/25, 04/25/2023, 04/11/2023, Additional history exists O2 ASSESSMENT COMPLETED IN PAST YEAR FOR COPD 04/26/2024 04/26/2023 LUNG CANCER SCREENING - USE SMARTSET 20708 Completed 03/14/2022, 06/03/2020, 05/27/2020, Additional history exists [...] Primary documented in this encounter Care Teams Lace Inspector Relationship Specialty Start Date End Date Savanah Geiger, [address], [place] [phone] PCP - General Family Medicine 04/11/12 documented as of this encounter
--- OUTSIDE RECORDS SUMMARY | 2023-08-22 17:29 | External Medical Summary ---
Author Name Unknown Address Unknown Organization K01:[facility] [place] [address] [facility] [place] [address] Laboratory Report Ordering Provider Test Date Status MARY ANNE LAGUNA 05/09/2023 10:15:12 Final Observation Date Value Abnormality Reference (Units ) Status SYNC LEUKOCYTES IN BLOOD BY AUTOMATED COUNT 05/09/2023 10:15:12 11.79 Above high normal 4.00-10.80 (K/uL) Final Segs 05/09/2023 10:15:12 74.5 40.0-75.0 (%) Final Lymphs % 05/09/2023 10:15:12 9.5 Below low normal 18.0-42.0 (%) Final Monos 05/09/2023 10:15:12 13.7 Above high normal 1.0-11.0 (%) Final Eosinophils 05/09/2023 10:15:12 1.5 0.0-6.0 (%) Final Basos 05/09/2023 10:15:12 0.2 0.0-2.0 (%) Final Immature Granulocyte, Percent 05/09/2023 10:15:12 0.6 0.0-2.0 (%) Final Absolute Segs 05/09/2023 10:15:12 8.79 Above high normal 1.80-7.70 (K/uL) Final Lymphs, absolute 05/09/2023 10:15:12 1.12 1.00-4.80 (K/ul) Final Monos, Abs 05/09/2023 10:15:12 1.61 Above high normal 0.00-1.10 (K/uL) Final Eos, Abs 05/09/2023 10:15:12 0.18 0.00-0.70 (K/uL) Final Basos, Abs 05/09/2023 10:15:12 0.02 0.00-0.20 (K/uL) Final Immature Granulocytes, Number 05/09/2023 10:15:12 0.07 0.00-0.20 (K/uL) Final Performing Location [facility]ATORY [facility] [place] - [facility] [address] [facility] [address]
--- OUTSIDE RECORDS SUMMARY | 2023-08-22 17:29 | External Medical Summary | Summary of Care ---
Author Name Unknown Organization [facility] Address [address] [place] [address] Phone [phone] Care Team Providers Care Supervisor Rides Name Role Phone Savanah Geiger DO Primary Care Provider Reason for Visit * Reason Comments eRx-Medication Refill Encounter Details Date Type Department Care Team Description 04/24/2023 Refill Hematology/Oncology Treatment, [place] [address] [place] [address] Luann De La Cruz MD [address] [place] [address] Multiple myeloma not having achieved remission (HCC) [...] 08/15/2022 Active Famotidine 20 MG Oral Tablet (Pepcid)Indicati [...] Sublingual Tablet Sublingual (Nitrostat)Indic ations:Atheroscl erosis of [place] coronary artery of [place] heart without angina pectoris One tablet [...] DAYS OFF 14 Capsule 0 05/03/2023 Active Lenalidomide 10 MG Oral Capsule (Revlimid)Indica tions:Multiple myeloma not having achieved remission (HCC) TAKE 1 CAPSULE BY MOUTH 1 TIME A DAY FOR 14 DAYS ON THEN 7 DAYS OFF 14 Capsule 0 04/07/2023 3 Discontinued documented as of this encounter [...] Bladder cancer 04/24/2020 Coronary artery disease involving [place] heart without angina pectoris 05/22/2019 Old [...] Telephone Encounter - Sarahy Rodriges RN - 05/03/2023 8:04 AM EDT Per MTM note: "Treatment: Medication:Lenalidomide (Revlimid) Indication:multiple myeloma Dose:10mg daily D1-14 every 21 days" Prescriber survey complete, auth #[id number] * Telephone Encounter - Interface, E-Rx Ss Inbound - 04/26/2023 2:42 AM EDT Pending Prescriptions: Disp Refills Lenalidomide 10 MG Oral Capsule (Revlimid)* 0 Sig: TAKE 1 CAPSULE BY MOUTH 1 TIME A DAY FOR 14 DAYS ON THEN 7 DAYS OFF * Telephone Encounter - Interface, E-Rx Ss Inbound - 04/24/2023 8:18 PM EDT Pending Prescriptions: Disp Refills Lenalidomide 10 MG Oral Capsule (Revlimid)* 0 Sig: TAKE 1 CAPSULE BY MOUTH 1 TIME A DAY FOR 14 DAYS ON THEN 7 DAYS OFF documented in this encounter Plan of Treatment Upcoming Encounters Date Type Specialty Care Team Description 05/10/2023 Laboratory Laboratory [facility] [address] [place], [place] [address] 05/10/2023 Office Visit Hematology Oncology Luann De La Cruz MD [address] [place], [place] [address] 05/10/2023 Hem/Onc Treatment Hematology Oncology 05/19/2023 Scheduled Telephone Pharmacy [facility] Hem/Onc Tech [address] [place] [address] 06/07/2023 Pharmacy Pharmacy [facility] Hem/Onc [address] [place] [address] 06/22/2023 Office Visit Cardiology Leda Myers PA-C [address] [place] [address] 07/03/2023 Hem/Onc Treatment Hematology Oncology A, Infusion Chair [address] [place] [address] 07/03/2023 Appointment Radiology 07/03/2023 Office Visit Vascular Surgery Robin Burleson MD [address] [place] [address] 07/10/2023 Office Visit Family Medicine Savanah Geiger, DO [address] [place] [address] Scheduled Procedures Name Priority Associated Diagnoses [...] Additional history exists CKD PHOS USE SMARTSET 19501 2024 02/13/2023, 0 02/11/2021 CKD HGB USE SMARTSET 75311 04/25/202404/25, 04/25/2023, 04/11/2023, Additional history exists O2 ASSESSMENT COMPLETED IN PAST YEAR FOR COPD 04/26/2024 04/26/2023 LUNG CANCER SCREENING - USE SMARTSET 89738 Completed 03/14/2022, 06/03/2020, 05/27/2020, Additional history exists [...] remission documented in this encounter Care Teams Supervisor Rides Relationship Specialty Start Date End Date Savanah Geiger, [address] [place] [address] PCP - General Family Medicine 04/11/12 documented as of this encounter
--- OUTSIDE RECORDS SUMMARY | 2023-08-22 17:29 | External Medical Summary | Summary of Care ---
Author Name Unknown Organization [facility] Address [address] [place] [address] Phone [phone] Care Team Providers Care Glass Designer Name Role Phone Savanah Geiger DO Primary Care Provider [phone] Reason for Visit * Reason Comments Follow Up Chemotherapy Encounter Details Date Type Department Care Team Description 05/10/2023 Office Visit Hematology/Oncology Sh[facility]ene [facility] [place] 200 [facility] [place] [address] Luann De La Cruz MD 200 [facility] [place] [address] Multiple myeloma in remission (HCC)* Allergies Active [...] MG Sublingual Tablet Sublingual (Nitrostat)Indicati ons:Atherosclerosis of [place] coronary artery of [place] heart without angina pectoris One tablet under [...] Bladder cancer 04/24/2020 Coronary artery disease involving [place] heart without angina pectoris 05/22/2019 Old myocardial [...] Epic record. 03/29/2023 9:32 AM Brian Salinas [id number] 73 year old Patient Encounter: [facility] Cancer Diagnosis: - multiple myeloma, IgG lambda R-ISS Staging: III - bladder tumor. 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 He was treated [id number]/14/2020 and received last dose of Velcade on [...] diagnosis. The block is being sent o [facility] for ancillary studies and the testing report [...] FREE LIGHT CHAINS Result Value Ref Range [place] Free Light Chains, Serum 17.23 3.30 - 19.40 mg/L Lambda Free Light Chains, Serum 20.38 5.71 - 26.30 mg/L [place] Lambda Free Light Chains Ratio 0.85 0.26 [...] this encounter Nursing Notes * Wanda Silva, MANAGER INFRASTRUCTURE - 05/10/2023 9:50 AM EDT Patient identifed by name and birthdate Do you have any concerns about pain management for today's visit? No Living Will or Advance Directive for Health Care as noted on the problem list. [facility] is a way you can talk to [...] Care Team Description 05/19/2023 Scheduled Telephone Pharmacy [facility] Hem/Onc Tech [address] [place] [address] 06/07/2023 Pharmacy Pharmacy [facility] Hem/Onc [address] [place] [address] 06/22/2023 Office Visit Cardiology Leda Myers PA-C [address] [place] [address] 07/03/2023 Hem/Onc Treatment Hematology Oncology A, Infusion Chair [address] [place] [address] 07/03/2023 Appointment Radiology 07/03/2023 Office Visit Vascular Surgery Robin Burleson MD [address] [place] [address] 07/10/2023 Office Visit Family Medicine Savanah Geiger, DO [address] [place] [address] Scheduled Orders Name Type Priority Associated Diagnoses [...] Additional history exists CKD PHOS USE SMARTSET 73359 2024 02/13/2023, 0 02/11/2021 O2 ASSESSMENT COMPLETED IN PAST YEAR FOR COPD 04/26/2024 04/26/2023 CKD HGB USE SMARTSET 39585 05/09/202405/09, 05/09/2023, 04/25/2023, Additional history exists LUNG CANCER SCREENING - USE SMARTSET 63674 Completed 03/14/2022, 06/03/2020, 05/27/2020, Additional history exists [...] remission documented in this encounter Care Teams Glass Designer Relationship Specialty Start Date End Date Savanah Geiger, [address] [place] [address] PCP - General Family Medicine 04/11/12 documented as of this encounter
--- OUTSIDE RECORDS SUMMARY | 2023-08-22 17:29 | External Medical Summary ---
Author Name Unknown Address Unknown Organization K01:[facility] [place] [facility] [address] [facility] [address] [facility] [address] Laboratory Report Ordering Provider Test Date Status MARY ANNE LAGUNA 05/09/2023 10:15:12 Final Observation Date Value Abnormality Reference (Units ) Status WBC, Total 05/09/2023 10:15:12 11.79 Above high normal 4.00-10.80 (K/uL) Final RBC 05/09/2023 10:15:12 3.70 4.50-5.25 (M/uL) Final Hemoglobin 05/09/2023 10:15:12 11.7 Below low normal 14.0-16.8 (g/dL) Final HCT 05/09/2023 10:15:12 38.3 Below low normal 40.0-48.4 (%) Final MCV 05/09/2023 10:15:12 103.5 82.0-99.5 (fL) Final MCH 05/09/2023 10:15:12 31.6 27.0-34.0 (pg) Final MCHC 05/09/2023 10:15:12 30.5 32.0-36.0 (g/dL) Final RDW 05/09/2023 10:15:12 16.0 11.5-15.5 (%) Final Platelets 05/09/2023 10:15:12 204 140-400 (K/uL) Final MPV 05/09/2023 10:15:12 11.3 6.6-11.1 (fL) Final Nucleated erythrocytes/100 leukocytes [Ratio] in Blood by Automated count 05/09/2023 10:15:12 0 <=0 (/100 WBCs) Final Performing Location [facility] [place] [address] [place] [address]
--- OUTSIDE RECORDS SUMMARY | 2023-08-22 17:29 | External Medical Summary | Summary of Care ---
Author Name Unknown Organization [facility] Address [address] [place] [address] Phone [phone] Care Team Providers Care Battery Assembler Dry Cell Name Role Phone Savanah Geiger DO Primary Care Provider Reason for Visit * Reason Onset Date Comments Medication Refill 05/01/2023 Encounter Details Date Type Department Care Team Description 05/01/2023 Telephone Hematology/Oncology [facility] 200 [facility] [place] [address] Luann De La Cruz MD [address] [place] [address] Medication Refill Allergies Active Allergy Reactions Severity Noted Date Comments Calcium Carb-Cholecalciferol 016 documented as of this encounter (statuses as of 05/02/2023) Medications Medication Sig Dispensed Refills Start Date [...] MG Sublingual Tablet Sublingual (Nitrostat)Indicati ons:Atherosclerosis of [place] coronary artery of [place] heart without angina pectoris One tablet under [...] as of this encounter (statuses as of 05/02/2023) Active Problems Problem Noted Date Dyslipidemia 03/29/2022 [...] Bladder cancer 04/24/2020 Coronary artery disease involving [place] heart without angina pectoris 05/22/2019 Old myocardial infarct 12/06/2018 S/p bare metal coronary artery stent Tobacco use disorder 04/16/2012 HTN, goal below 130/80 2012 GERD (gastroesophageal reflux disease) 0 2012 documented as of this encounter (statuses as of 05/02/2023) Resolved Problems Problem Noted Date Resolved Date [...] as of this encounter (statuses as of 05/02/2023) Immunizations Name Administration Dates Next Due COVID-19 [...] 05/01/2023 12:44 PM EDT VMM received from [facility] requesting new Rx for Lenalidomide. Magali Waldrop Culturist Pharmacy Hematology Oncology Oral Chemotherapy Clinic Medication Therapy Disease Management [facility] 05/01/23 12:45 PM Time Spent on Encounter: < 5 minutes documented in this encounter Plan of Treatment Upcoming Encounters Date Type Specialty Care Team Description 05/10/2023 Laboratory Laboratory [place], Lab Scenery [address] [place] [address] 05/10/2023 Office Visit Hematology Oncology Luann De La Cruz MD [address] [place] [address] 05/10/2023 Hem/Onc Treatment Hematology Oncology 05/19/2023 Scheduled Telephone Pharmacy [facility] Hem/Onc Tech [address] [place] [address] 06/07/2023 Pharmacy Pharmacy [facility] Hem/Onc [address] [place] [address] 06/22/2023 Office Visit Cardiology Leda Myers PA-C [address] [place] [address] 07/03/2023 Hem/Onc Treatment Hematology Oncology A, Infusion Chair [address] [place] [address] 07/03/2023 Appointment Radiology 07/03/2023 Office Visit Vascular Surgery Robin Burleson MD [address] [place] [address] 07/10/2023 Office Visit Family Medicine Savanah Geiger, DO [address] [place] [address] Scheduled Procedures Name Priority Associated Diagnoses Date/Ti [...] Additional history exists CKD PHOS USE SMARTSET 63325 2024 02/13/2023, 0 02/11/2021 CKD HGB USE SMARTSET 30561 04/25/202404/25, 04/25/2023, 04/11/2023, Additional history exists O2 ASSESSMENT COMPLETED IN PAST YEAR FOR COPD 04/26/2024 04/26/2023 LUNG CANCER SCREENING - USE SMARTSET 69822 Completed 03/14/2022, 06/03/2020, 05/27/2020, Additional history exists [...] filedocumented as of this encounter Care Teams Battery Assembler Dry Cell Relationship Specialty Start Date End Date Savanah Geiger, DO [address] [place] [address] PCP - General Family Medicine 04/11/12 documented as of this encounter
--- OUTSIDE RECORDS SUMMARY | 2023-08-22 17:29 | External Medical Summary | Summary of Care ---
Author Name Unknown Organization [facility] Address [address] [place] [address] Phone [phone] Care Team Providers Care Provider Relations Representative Name Role Phone CaseySavanah harry Oswaldo JIMÉNEZ Primary Care Provider [phone] Encounter Details Date Type Department Care Team Description 05/07/2023 Orders Only Hematology/Oncology, [facility] [address] [place] [address] Luann De La Cruz MD [address] [place] [address] Allergies Active Allergy Reactions Severity Noted Date Comments Calcium Carb-Cholecalciferol 016 documented as of this encounter (statuses as of 05/07/2023) Medications Medication Sig Dispensed Refills Start Date [...] MG Sublingual Tablet Sublingual (Nitrostat)Indicati ons:Atherosclerosis of [place] coronary artery of [place] heart without angina pectoris One tablet under [...] as of this encounter (statuses as of 05/07/2023) Active Problems Problem Noted Date Dyslipidemia 03/29/2022 [...] Bladder cancer 04/24/2020 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 pectoris 05/22/2019 Old myocardial infarct 12/06/2018 S/p bare metal coronary artery stent Tobacco use disorder 04/16/2012 HTN, goal below 130/80 2012 GERD (gastroesophageal reflux disease) 0 2012 documented as of this encounter (statuses as of 05/07/2023) Resolved Problems Problem Noted Date Resolved Date [...] as of this encounter (statuses as of 05/07/2023) Immunizations Name Administration Dates Next Due COVID-19 [...] Description 05/10/2023 Laboratory Laboratory Dinah [facility] [address] [place] [address] 05/10/2023 Office Visit Hematology Oncology Luann De La Cruz MD [address] [place] [address] 05/10/2023 Hem/Onc Treatment Hematology Oncology 05/19/2023 Scheduled Telephone Pharmacy [facility] Hem/Onc Tech [address] [place] [address] 06/07/2023 Pharmacy Pharmacy [facility] Hem/Onc [address] [place] [address] 06/22/2023 Office Visit Cardiology Leda Myers PA-C [address] [place] [address] 07/03/2023 Hem/Onc Treatment Hematology Oncology A, Infusion Chair [address] [place] [address] 07/03/2023 Appointment Radiology 07/03/2023 Office Visit Vascular Surgery Robin Burleson MD [address] [place] [address] 07/10/2023 Office Visit Family Medicine Savanah Geiger, DO [address] [place] [address] Scheduled Procedures Name Priority Associated Diagnoses Date/Ti me COLONOSCOPY FLEXIBLE PROXIMAL DIAGNOSTIC Recall History of colon polyps Health Maintenance Due Date Last Done Comments Albumin/Creatinine Ratio 02/13/1970 Alpha-1 Antitrypsin 02/13/1970 Hepatitis C Screening 02/13/1970 DTaP,Tdap,and Td Vaccines (1 - Tdap) 02/13/1971 Zoster Vaccines (1 of 2) 02/13/1971 DISCUSS TOBACCO CESSATION (REFER TO SMARTSET #7905) 07/12/2018 07/12/2017 (Course Completed) COLONOSCOPY-EVERY 3 YRS AGES 18-100 05/23/2020 05/23/2017 Depression Screening, Annual for Pts 12 and Over 07/30/2021 07/30/2020, 07/12/2017 (Declined) COVID-19 Vaccine (4 - Pfizer risk series) 10/23/2021 08/28/2021, 02/18/2021, 01/28/2021 Influenza Vaccine (FLU shot) (#1) 2023 06/23/2022, 07/12/2021, 07/09/2020, Additional history exists GFR 10/26/2023 04/25/2023, 03/25, 03/29/2023, Additional history exists CKD PHOS USE SMARTSET 16669 2024 02/13/2023, 0 02/11/2021 CKD HGB USE SMARTSET 48202 04/25/202404/25, 04/25/2023, 04/11/2023, Additional history exists O2 ASSESSMENT COMPLETED IN PAST YEAR FOR COPD 04/26/2024 04/26/2023 LUNG CANCER SCREENING - USE SMARTSET 72697 Completed 03/14/2022, 06/03/2020, 05/27/2020, Additional history exists [...] filedocumented as of this encounter Care Teams Provider Relations Representative Relationship Specialty Start Date End Date Savanah Geiger, DO [address] [place] [address] PCP - General Family Medicine 04/11/12 documented as of this encounter
--- OUTSIDE RECORDS SUMMARY | 2023-08-22 17:30 | External Medical Summary ---
Author Name Unknown Address Unknown Organization K01:[facility] [place] 100 [facility] [place] [address] Laboratory Report Ordering Provider Test Date Status MARY ANNE LAGUNA 04/25/2023 10:02:22 Final Observation Date Value Abnormality Reference (Units ) Status SYNC LEUKOCYTES IN BLOOD BY AUTOMATED COUNT 04/25/2023 10:02:22 6.66 4.00-10.80 (K/uL) Final Segs 04/25/2023 10:02:22 71.9 40.0-75.0 (%) Final Lymphs % 04/25/2023 10:02:22 11.6 Below low normal 18.0-42.0 (%) Final Monos 04/25/2023 10:02:22 6.8 1.0-11.0 (%) Final Eosinophils 04/25/2023 10:02:22 6.2 Above high normal 0.0-6.0 (%) Final Basos 04/25/2023 10:02:22 0.5 0.0-2.0 (%) Final Immature Granulocyte, Percent 04/25/2023 10:02:22 3.0 Above high normal 0.0-2.0 (%) Final Absolute Segs 04/25/2023 10:02:22 4.80 1.80-7.70 (K/uL) Final Lymphs, absolute 04/25/2023 10:02:22 0.77 Below low normal 1.00-4.80 (K/ul) Final Monos, Abs 04/25/2023 10:02:22 0.45 0.00-1.10 (K/uL) Final Eos, Abs 04/25/2023 10:02:22 0.41 0.00-0.70 (K/uL) Final Basos, Abs 04/25/2023 10:02:22 0.03 0.00-0.20 (K/uL) Final Immature Granulocytes, Number 04/25/2023 10:02:22 0.20 0.00-0.20 (K/uL) Final Performing Location [facility] [place] [facility] [address] [facility] [address]
--- OUTSIDE RECORDS SUMMARY | 2023-08-22 17:30 | External Medical Summary | Summary of Care ---
Author Name Unknown Organization [facility] Address [address] [place] [address] Phone [phone] Care Team Providers Care Adjunct Instructor Name Role Phone Savanah Geiger DO Primary Care Provider + [phone] Reason for Visit * Reason Comments Chemotherapy Velcade * Episode Based Medications (Routine) - Authorized Specialty Diagnoses / Procedures Referred By Contnataliia t Referred To Contact Diagnoses Multiple myeloma not having achieved remission (HCC) Procedures [place] INJ., VELCADE 0.1 MG Luann De La Cruz MD [address] [place] [address] Anc Hem/Onc Scenery [place] [address] [place] [phone] Referral ID Status Reason Start Date Expiration Date V isits Requested Visits Authorized [id number] Authorized 02/22/2022 09/24/2099 99 99 Encounter Details Date Type Department Care Team Description 04/26/2023 Hem/Onc Treatment Hematology/Oncology Treatment, [place] [address] [place] [phone] Tresa, Chair 8 Hem Onc Scenery [address] [place] [address] Multiple myeloma not having achieved remission (HCC)*; Encounter for antineoplastic chemotherapy Allergies Active Allergy Reactions Severity Noted Date Comments Calcium Carb-Cholecalciferol 016 documented as of this encounter (statuses as of 04/26/2023) Medications Medication Sig Dispensed Refills Start Date [...] Pain, Moderate. 30 Tablet 0 01/24/2023 Active Mirtazapine 15 MG Oral Tablet (Remeron)Indication s:Poor appetite TAKE 1 TAB BY MOUTH AT BEDTIME. TO HELP WITH APPETITE, AND MOOD. 90 Tablet 0 02/05/2023 Active Nitroglycerin 0.4 MG Sublingual Tablet Sublingual (Nitrostat)Indicati ons:Atherosclerosis of [place] coronary artery of [place] heart without angina pectoris One tablet under [...] EVERY DAY 90 Tablet 3 04/21/2023 Active documented as of this encounter (statuses as of 04/26/2023) Active Problems Problem Noted Date Dyslipidemia 03/29/2022 [...] Bladder cancer 04/24/2020 Coronary artery disease involving [place] heart without angina pectoris 05/22/2019 Old myocardial infarct 12/06/2018 S/p bare metal coronary artery stent Tobacco use disorder 04/16/2012 HTN, goal below 130/80 2012 GERD (gastroesophageal reflux disease) 0 2012 documented as of this encounter (statuses as of 04/26/2023) Resolved Problems Problem Noted Date Resolved Date [...] as of this encounter (statuses as of 04/26/2023) Immunizations Name Administration Dates Next Due COVID-19 [...] Sign Reading Time Taken Comments Blood Pressure 152/90 04/26/2023 9:46 AM EDT Pulse 76 04/26/2023 9:46 AM EDT Temperature 36.2 C (97.1 F) 04/26/2023 9:46 AM ED T Respiratory Rate 18 04/26/2023 9:46 AM EDT Oxygen Saturation 99% 04/26/2023 9:46 AM EDT Inhaled Oxygen Concentration - - Weight 77.7 kg (171 lb 6.4 oz) 04/26/2023 9:46 A M EDT Height - - Body Mass Index 27.66 01/05/2023 8:34 AM EDT documented in this encounter Nursing Notes * Jennifer Valerio RN - 04/26/2023 2:02 PM EDT Functional status at today's visit: Fully active, able to carry on all pre-disease performance without restriction The drug name, dose, volume, rate and route of administration, expiration date and time, appearanceand physical integrity of the drug were verified by me and second sign-in RN. Patient was assessed for symptoms or adverse side effects during treatment. Velcade administered per order; pt tolerated well. Pt discharged in stable condition. * Jennifer Valerio RN - 04/26/2023 9:47 AM EDT Chair 5 Chemo agents Velcade Appetite stable Nausea/Vomiting no Diarrhea no Constipation no Mucositis no Fatigue stable Bleeding no Infection no Rash no Numbness tingling stable Pain no Radiation n/a ABN Labs Ca 8.1; confirmed pt is taking Ca supplement at home. Dr. De La Cruz is aware; recheck in 2 weeks. Alt in Tx: no Return in 2 weeks documented in this encounter Plan of Treatment Upcoming Encounters Date Type Specialty Care Team Description 05/10/2023 Laboratory Laboratory [facility] [address] [facility] [place] [address] 05/10/2023 Office Visit Hematology Oncology Luann De La Cruz MD [address] [place] [address] 05/10/2023 Hem/Onc Treatment Hematology Oncology 05/19/2023 Scheduled Telephone Pharmacy [facility] Hem/Onc Tech [address] [place] [address] 06/07/2023 Pharmacy Pharmacy [facility] Hem/Onc [address] [place] [address] 06/22/2023 Office Visit Cardiology Leda Myers PA-C [address] [place] [address] 07/03/2023 Hem/Onc Treatment Hematology Oncology A, Infusion Chair [address] [place] [address] 07/03/2023 Appointment Radiology 07/03/2023 Office Visit Vascular Surgery Robin Burleson MD [address] [place] [address] 07/10/2023 Office Visit Family Medicine Savanah Geiger, [address] [place] [address] Scheduled Procedures Name Priority Associated Diagnoses Date/Ti [...] Additional history exists CKD PHOS USE SMARTSET 21846 2024 02/13/2023, 0 02/11/2021 CKD HGB USE SMARTSET 98224 04/25/202404/25, 04/25/2023, 04/11/2023, Additional history exists O2 ASSESSMENT COMPLETED IN PAST YEAR FOR COPD 04/26/2024 04/26/2023 LUNG CANCER SCREENING - USE SMARTSET 34680 Completed 03/14/2022, 06/03/2020, 05/27/2020, Additional history exists [...] BSA from Recorded weight), Subcutaneous, ONCE, On Mon04/26/23 at 1130, For 1 dose, Caution chemotherapy: Handle with gloves Given 04/26/2023 9:58 AM EDT 2.5 mg Abdomen Left Lower documented in this encounter Care Teams Adjunct Instructor Relationship Specialty Start Date End Date Savanah Geiger, [address] [place] [address] PCP - General Family Medicine 04/11/12 documented as of this encounter
--- OUTSIDE RECORDS SUMMARY | 2023-08-22 17:30 | External Medical Summary ---
Author Name Unknown Address Unknown Organization K01:[facility] - [address] [place] [address] Laboratory Report Ordering Provider Test Date Status MARY ANNE LAGUNA 04/11/2023 10:20:19 Final Baseline then every 2-3 thuy hs Observation Date Value Abnormality Reference (Units ) Status TSH 04/11/2023 10:20:19 1.01 0.27-4.20 (uIU/mL) Final Performing Location [facility] - [address] [place] [address]
--- OUTSIDE RECORDS SUMMARY | 2023-08-22 17:30 | External Medical Summary | Summary of Care ---
Author Name Unknown Organization [facility] Address [address] [place] [address] Phone [phone] Care Team Providers Care Executive Personal Assistant Name Role Phone GriffinhughSavanah jessica DO Primary Care Provider Reason for Visit * Reason Onset Date Comments Medication Administration 04/17/2023 revlim id Encounter Details Date Type Department Care Team Description 04/17/2023 Telephone Hematology/Oncology [facility] [place] [address] [place] [address] Farooq Nielsen MD [address] [place] [address] Medication Administration (revlimid) Allergies Active Allergy Reactions Severity Noted Date Comments Calcium Carb-Cholecalciferol 016 documented as of this encounter (statuses as of 04/17/2023) Medications Medication Sig Dispensed Refills Start Date [...] for Nausea. 30 Tablet 2 02/24/2022 Active Atorvastatin Calcium 80 MG Oral Tablet (Lipitor)Indication s:Dyslipidemia, goal LDL below 100 TAKE 1 TABLET BY MOUTH EVERY DAY 90 Tablet 3 04/26/2022 Active Metoprolol Tartrate 50 MG Oral Tablet [...] MG Sublingual Tablet Sublingual (Nitrostat)Indicati ons:Atherosclerosis of [place] coronary artery of [place] heart without angina pectoris One tablet under [...] DAYS OFF 14 Capsule 0 04/07/2023 Active documented as of this encounter (statuses as of 04/17/2023) Active Problems Problem Noted Date Dyslipidemia 03/29/2022 [...] Bladder cancer 04/24/2020 Coronary artery disease involving [place] heart without angina pectoris 05/22/2019 Old myocardial infarct 12/06/2018 S/p bare metal coronary artery stent Tobacco use disorder 04/16/2012 HTN, goal below 130/80 2012 GERD (gastroesophageal reflux disease) 0 2012 documented as of this encounter (statuses as of 04/17/2023) Resolved Problems Problem Noted Date Resolved Date [...] as of this encounter (statuses as of 04/17/2023) Immunizations Name Administration Dates Next Due COVID-19 mRNA, LNP-s, No Pre serve, 2-Dose Series (Mobile Media Content) 08/28/2021,02/18/2021,01/28/2021 Pneumococcal Conjugate Vacc, 13 Valent (Prevnar) [...] Telephone Encounter - Sonya Melgoza LPN - 04/17/2023 10:19 AM EDT Val was transferred to office. She states that she is very confused over Brian's medication schedule and the calender does not makesense. Val states Brian last took revlimid on 04/12/23. MTM to speak with patient on 04/26/23, FERNANDO LOCKE/Guadalupe of above documented in this encounter Plan of Treatment Upcoming Encounters Date Type Specialty Care Team Description 04/20/2023 Scheduled Telephone Pharmacy [facility] Hem/Onc Tech [address] [place] [address] 04/25/2023 Laboratory Laboratory [facility] Laboratory [address] [place] [address] 04/26/2023 Pharmacy Pharmacy [facility] Hem/Onc [address] [place] [address] 04/26/2023 Hem/Onc Treatment Hematology Oncology [place], Chair 8 Hem Onc Scenery [address] [place] [address] 05/10/2023 Laboratory Laboratory [place], Lab Scenery [address] [place] [address] 05/10/2023 Office Visit Hematology Oncology Luann De La Cruz MD [address] [place] [address] 05/10/2023 Hem/Onc Treatment Hematology Oncology 06/22/2023 Office Visit Cardiology Leda Myers PA-C [address] [place] [address] 07/03/2023 Hem/Onc Treatment Hematology Oncology A, Infusion Chair [address] [place] [address] 07/03/2023 Appointment Radiology 07/03/2023 Office Visit Vascular Surgery Robin Burleson MD [address] [place] [address] 07/10/2023 Office Visit Family Medicine Savanah Geiger DO [address] [place] [address] Scheduled Procedures Name Priority Associated Diagnoses Date/Ti [...] 06/23/2022, 07/12/2021, 07/09/2020, Additional history exists GFR 10/12/2023 04/11/2023, 07/0 01/2023, 03/14/2023, Additional history exists CKD PHOS USE SMARTSET 20658 2024 02/13/2023, 0 02/11/2021 CKD HGB USE SMARTSET 59927 04/11/202404/11, 04/11/2023, 03/29/2023, Additional history exists O2 ASSESSMENT COMPLETED IN PAST YEAR FOR COPD 04/12/2024 04/12/2023 LUNG CANCER SCREENING - USE SMARTSET 30041 Completed 03/14/2022, 06/03/2020, 05/27/2020, Additional history exists [...] filedocumented as of this encounter Care Teams Executive Personal Assistant Relationship Specialty Start Date End Date Savanah Geiger, DO [address] [place] [address] PCP - General Family Medicine 04/11/12 documented as of this encounter
--- OUTSIDE RECORDS SUMMARY | 2023-08-22 17:30 | External Medical Summary | Summary of Care ---
Author Name Unknown Organization [facility] Address [address] [place] [address] Phone [phone] Care Team Providers Care Product Marketing Coordinator Name Role Phone Griffinreed Savanahsunshine Chacon DO Primary Care Provider + [phone] Reason for Visit * Reason Comments Outpatient Testing Encounter Details Date Type Department Care Team Description 04/11/2023 Laboratory Laboratory, [place] [address] [place] [address] [place], Laboratory [address] [place] [address] Multiple myeloma (HCC); Multiple myeloma not having achieved remission (HCC) Allergies Active Allergy Reactions Severity Noted Date Comments Calcium Carb-Cholecalciferol 016 documented as of this encounter (statuses as of 04/11/2023) Medications Medication Sig Dispensed Refills Start Date [...] MG Sublingual Tablet Sublingual (Nitrostat)Indicati ons:Atherosclerosis of [place] coronary artery of [place] heart [...] as of this encounter (statuses as of 04/11/2023) Active Problems Problem Noted Date Dyslipidemia 03/29/2022 [...] Bladder cancer 04/24/2020 Coronary artery disease involving [place] heart without angina pectoris 05/22/2019 Old myocardial infarct 12/06/2018 S/p bare metal coronary artery stent Tobacco use disorder 04/16/2012 HTN, goal below 130/80 2012 GERD (gastroesophageal reflux disease) 0 2012 documented as of this encounter (statuses as of 04/11/2023) Resolved Problems Problem Noted Date Resolved Date Dehydration 02/01/2021 03/29/2022 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 Atherosclerosis of coronary artery without angin a pectoris 09/14/2018 03/29/2022 ST elevation myocardial infarction (STEMI) 03/2012/06/2018 Lung nodule 10/14/2015 03/29/2022 ST elevation myocardial infa rction (STEMI) involving other coronary artery 05/19/2015 03/20/2017 ST elevation MT (STEMI) 01/12/2015 09/14/20 18 Myocardial infarction 02/03/2014 09/14/2018 COPD, moderate 08/27/2013 08/06/2020 Overview: Per COPD GOLD Classification Noncompliance 03/13/2013 03/21/2017 Anemia 05/03/2012 03/29/2022 COPD, severity to be determined 04/16/2012 08/27/2013 Dyslipidemia, goal LDL below 70 04/16/2012 03/29/2022 documented as of this encounter (statuses as of 04/11/2023) Immunizations Name Administration Dates Next Due COVID-19 [...] Encounters Date Type Specialty Care Team Description 04/12/2023 Hem/Onc Treatment Hematology [place] [place], Chair 4 Hem Onc Scenery [address] [place] [address] 04/20/2023 Scheduled Telephone Pharmacy [facility] Hem/Onc Tech [address] [place] [address] 04/25/2023 Laboratory Laboratory [facility] [address] [place] [address] 04/26/2023 Pharmacy Pharmacy [facility] Hem/Onc [address] [place] [address] 04/26/2023 Hem/Onc Treatment Hematology Oncology [place], Chair 8 Hem Onc Scenery [address] [place] [address] 05/10/2023 Laboratory Laboratory [place], Lab Scenery [address] [place] [address] 05/10/2023 Office Visit Hematology Oncology Luann De La Cruz MD [address] [place] [address] 05/10/2023 Hem/Onc Treatment Hematology Oncology 06/22/2023 Office Visit Cardiology Leda Myers PA-C [address] [place] [address] 07/03/2023 Hem/Onc Treatment Hematology Oncology A, Infusion Chair [address] [place] [address] 07/03/2023 Appointment Radiology 07/03/2023 Office Visit Vascular Surgery Robin Burleson MD [address] [place] [address] 07/10/2023 Office Visit Family Medicine Savanah Geiger, DO [address] [place] [address] Pending Results Name Type Priority Associated Diagnoses Date /Time IMMUNOGLOBULIN QUANTITATIVE Lab STAT Multiple myeloma (HCC) 04/11/2023 10:20 AM EDT SERUM PROTEIN ELECTROPHORESIS REFLEX PROFILE Lab STAT Multiple myeloma ([facility]) 04/11/2023 10:20 AM EDT SERUM FREE LIGHT CHAINS Lab STAT Multiple myeloma ([facility]) 04/11/2023 10:20 AM EDT TSH WITH FREE T4 IF INDICATED Lab STAT Multiple myeloma not having achieved remission (HCC) 04/11/2023 10:20 AM EDT COMPREHENSIVE METABOLIC PANEL Lab Routine Multiple myeloma not having achieved remission ([facility]) 04/11/2023 10:20 AM EDT CBC WITH WBC DIFFERENTIAL Lab Routine Multiple myeloma not having achieved remission (HCC) 04/11/2023 10:20 AM EDT CBC Lab Routine Multiple myeloma not having achieved remission ([facility]) 04/11/2023 10:20 AM EDT DIFFERENTIAL, AUTOMATED Lab Routine Multiple myeloma not having achieved remission ([facility]) 04/11/2023 10:20 AM EDT Scheduled Procedures Name Priority Associated Diagnoses Date/Ti me COLONOSCOPY FLEXIBLE PROXIMAL DIAGNOSTIC Recall History of colon polyps Health Maintenance Due Date Last Done Comments Albumin/Creatinine Ratio 02/13/1970 Alpha-1 Antitrypsin 02/13/1970 Hepatitis C Screening 02/13/1970 DTaP,Tdap,and Td Vaccines (1 - Tdap) 02/13/1971 Zoster Vaccines (1 of 2) 02/13/1971 DISCUSS TOBACCO CESSATION (REFER TO SMARTSET #1557) 07/12/2018 07/12/2017 (Course Completed) COLONOSCOPY-EVERY 3 YRS AGES 18-100 05/23/2020 05/23/2017 Depression Screening, Annual for Pts 12 and Over 07/30/2021 07/30/2020, 07/12/2017 (Declined) COVID-19 Vaccine (4 - Pfizer risk series) 10/23/2021 08/28/2021, 02/18/2021, 01/28/2021 Influenza Vaccine (FLU shot) (#1) 2023 06/23/2022, 07/12/2021, 07/09/2020, Additional history exists GFR 09/29/2023 03/29/2023, 02/24, 02/28/2023, Additional history exists AAA MONITORING; CT OR US YEARLY 12/27/2023 12/26/2022, 03/02/2022, 09/10/2021, Additional history exists AAA ULTRASOUND YEARLY 12/27/2023 12/26/2022 , 03/02/2022, 09/10/2021, Additional history exists CKD PHOS USE SMARTSET 25893 2024 02/13/2023, 0 02/11/2021 CKD HGB USE SMARTSET 70605 03/29/202403/29, 03/29/2023, 03/14/2023, Additional history exists O2 ASSESSMENT COMPLETED IN PAST YEAR FOR COPD 03/29/2024 03/29/2023 LUNG CANCER SCREENING - USE SMARTSET 14655 Completed 03/14/2022, 06/03/2020, 05/27/2020, Additional history exists [...] remission documented in this encounter Care Teams Product Marketing Coordinator Relationship Specialty Start Date End Date Savanah Geiger DO [address] [place] [address] PCP - General Family Medicine 04/11/12 documented as of this encounter
--- OUTSIDE RECORDS SUMMARY | 2023-08-22 17:30 | External Medical Summary | Summary of Care ---
Author Name Unknown Organization [facility] Address [address] [place] [address] Phone [phone] Care Team Providers Care Hedis Registered Nurse Rn Name Role Phone Savanah Geiger DO Primary Care Provider + [phone] Reason for Visit * Reason Comments Chemotherapy velcade * Episode Based Medications (Routine) - Authorized Specialty Diagnoses / Procedures Referred By Contnataliia t Referred To Contact Diagnoses Multiple myeloma not having achieved remission (HCC) Procedures VT INJ., VELCADE 0.1 MG Luann De La Cruz MD [address] [place] [address] Anc Hem/Onc Scene [place] [address] [place] [phone] Referral ID Status Reason Start Date Expiration Date V isits Requested Visits Authorized [id number] Authorized 02/22/2022 09/24/2099 99 99 Encounter Details Date Type Department Care Team Description 04/12/2023 Hem/Onc Treatment Hematology/Oncology Treatment, [place] [address] [place] [phone] Tresa, Chair 10 Hem Onc Scene [address] [place] [address] Multiple myeloma not having achieved remission (HCC)*; Encounter for antineoplastic chemotherapy Allergies Active Allergy Reactions Severity Noted Date Comments Calcium Carb-Cholecalciferol 016 documented as of this encounter (statuses as of 04/12/2023) Medications Medication Sig Dispensed Refills Start Date [...] BEFORE BEDTIME 180 Tablet 3 03/27/2023 Active documented as of this encounter (statuses as of 04/12/2023) Active Problems Problem Noted Date Dyslipidemia 03/29/2022 [...] Bladder cancer 04/24/2020 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 05/22/2019 Old myocardial infarct 12/06/2018 S/p bare metal coronary artery stent Tobacco use disorder 04/16/2012 HTN, goal below 130/80 2012 GERD (gastroesophageal reflux disease) 0 2012 documented as of this encounter (statuses as of 04/12/2023) Resolved Problems Problem Noted Date Resolved Date Dehydration 02/01/2021 03/29/2022 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 Atherosclerosis of coronary artery without angin a pectoris 09/14/2018 03/29/2022 ST elevation myocardial infarction (STEMI) 03/2012/06/2018 Lung nodule 10/14/2015 03/29/2022 ST elevation myocardial infa rction (STEMI) involving other coronary artery 05/19/2015 03/20/2017 ST elevation [place] (STEMI) 01/12/2015 09/14/20 18 Myocardial infarction 02/03/2014 09/14/2018 COPD, moderate 08/27/2013 08/06/2020 Overview: Per COPD GOLD Classification Noncompliance 03/13/2013 03/21/2017 Anemia 05/03/2012 03/29/2022 COPD, severity to be determined 04/16/2012 08/27/2013 Dyslipidemia, goal LDL below 70 04/16/2012 03/29/2022 documented as of this encounter (statuses as of 04/12/2023) Immunizations Name Administration Dates Next Due COVID-19 mRNA, LNP-s, No Pre serve, 2-Dose Series ([employer]) 08/28/2021,02/18/2021,01/28/2021 Pneumococcal Conjugate Vacc, 13 Valent (Prevnar) [...] Sign Reading Time Taken Comments Blood Pressure 113/68 04/12/2023 11:00 AM EDT Pulse 63 04/12/2023 11:00 AM EDT Temperature 35.9 C (96.7 F) 04/12/2023 11:00 AM E DT Respiratory Rate 18 04/12/2023 11:00 AM EDT Oxygen Saturation 99% 04/12/2023 11:00 AM EDT Inhaled Oxygen Concentration - - Weight 77.1 kg (170 lb) 04/12/2023 11:00 AM EDT Height - - Body Mass Index 27.44 01/05/2023 8:34 AM EDT documented in this encounter Nursing Notes * Evonne Lundberg RN - 04/12/2023 2:04 PM EDT Chair 12. Patient here today for Velcade. Patient says he is feeling okay overall but is feeling fatigued-- states he has been chopping a lotof wood and doing outdoor work a lot lately which he says he feels he cannot keep up with now. RN encouraged pt to take breaks as he needs. Otherwise, patient reports having "low voltage electrical shocks" over his whole body that come and go at random times, usually when he is doing work or being a ctive. Pt says this started a long time ago but has noticed it happening now more frequently and attimes when he is just sitting down doing nothing. Pt describes it as a slow on low voltage shock that starts in his chest and goes to his feet, through his whole body. RN spoke with Dr. De La Cruz regarding the above noted and recommended to hold Velcade today, see how patient does over the next 2 weeks, if the "shocks" get any worse or better with holding it and would assess from there. Patient informed that this was Dr. De La Cruz's decision and plan for today, to hold the Velcade. Patient preferred not to hold his Velcade today and states he would rather receive the Velcade today and will report to us if his symptoms or "shocks" get any worse for when he returns in [address] De La Cruz that patient would rather not hold his Velcade today and would ratherreceive the injection today, then report to us in 2 weeks if there are any improvements. Dr. De La Cruz okay with having patient receive Velcade today if he feels he does not want to hold it, okay with this plan. Patient will receive Velcade today per his preference. Patient is on his week off of Revlimid starting today, last took his Revlimid yesterday, starting 7days off now. Chemo agents Velcade Appetite good,, no issues Nausea/Vomiting no Diarrhea has diarrhea usually once in the morning, then is fine the rest of the day Constipation no Mucositis no Fatigue at times, see above Bleeding no Infection no Rash no Numbness tingling see above Pain no Radiation no ABN Labs WNL for tx, within pts norm Alt in Tx: N/A Return in 2 weeks Functional status at today's visit: Restricted in physically strenuous activity but ambulatory and able to carry out work on a light orsedentary nature, e.g. light house work, office work The drug name, dose, infusion volume, rate [...] Care Team Description 04/20/[address] [facility] Hem/Onc Tech [address] [place] [address] 04/25/2023 Laboratory Laboratory [address] [address] 04/26/2023 Pharmacy Pharmacy [facility] Hem/Onc [address] [place] [address] 04/26/2023 Hem/Onc Treatment Hematology Oncology [place], Chair 8 Hem Onc Scenery [address] [address] 05/10/2023 Laboratory Laboratory Tresa, Lab Scenery [address] [place] [address] 05/10/2023 Office Visit Hematology Oncology Luann De La Cruz MD [address] [place] [address] 05/10/2023 Hem/Onc Treatment Hematology Oncology 06/22/2023 Office Visit Cardiology Leda Myers PA-C [address] [place] [address] 07/03/2023 Hem/Onc Treatment Hematology Oncology A, Infusion Chair [address] [place], [place] [phone] 07/03/2023 Appointment Radiology 07/03/2023 Office Visit Vascular Surgery Robin Burleson MD [address] [place], [place] [phone] 07/10/2023 Office Visit Family Medicine Savanah Geiger, DO [address] [place] [address] Scheduled Procedures Name Priority Associated Diagnoses Date/Ti me COLONOSCOPY FLEXIBLE PROXIMAL DIAGNOSTIC Recall History of colon polyps Health Maintenance Due Date Last Done Comments Albumin/Creatinine Ratio 02/13/1970 Alpha-1 Antitrypsin 02/13/1970 Hepatitis C Screening 02/13/1970 DTaP,Tdap,and Td Vaccines (1 - Tdap) 02/13/1971 Zoster Vaccines (1 of 2) 02/13/1971 DISCUSS TOBACCO CESSATION (REFER TO SMARTSET #3145) 07/12/2018 07/12/2017 (Course Completed) COLONOSCOPY-EVERY 3 YRS AGES 18-100 05/23/2020 05/23/2017 Depression Screening, Annual for Pts 12 and Over 07/30/2021 07/30/2020, 07/12/2017 (Declined) COVID-19 Vaccine (4 - Pfizer risk series) 10/23/2021 08/28/2021, 02/18/2021, 01/28/2021 Influenza Vaccine (FLU shot) (#1) 2023 06/23/2022, 07/12/2021, 07/09/2020, Additional history exists GFR 10/12/2023 04/11/2023, 07/01/2023, 03/14/2023, Additional history exists CKD PHOS USE SMARTSET 69142 2024 02/13/2023, 0 02/11/2021 O2 ASSESSMENT COMPLETED IN PAST YEAR FOR COPD 03/29/2024 03/29/2023 CKD HGB USE SMARTSET 52753 04/11/202404/11, 04/11/2023, 03/29/2023, Additional history exists LUNG CANCER SCREENING - USE SMARTSET 69087 Completed 03/14/2022, 06/03/2020, 05/27/2020, Additional history exists [...] BSA from Recorded weight), Subcutaneous, ONCE, On Mon04/12/23 at 1300, For 1 dose, Caution chemotherapy: Handle with gloves Given 04/12/2023 11:44 AM EDT 2.5 mg Abdomen Left Lower documented in this encounter Care Teams Hedis Registered Nurse Rn Relationship Specialty Start Date End Date Savanah Geiger, DO [address] [place] [address] PCP - General Family Medicine 04/11/12 documented as of this encounter
--- OUTSIDE RECORDS SUMMARY | 2023-08-22 17:30 | External Medical Summary | Summary of Care ---
Author Name Unknown Organization [facility] Address [address] [place] [address] Phone [phone] Care Team Providers Care Sheet Mill Supervisor Name Role Phone CaseypieroSavanah DO Primary Care Provider [phone] Reason for Visit * Reason Comments Medication Management Encounter Details Date Type Department Care Team Description 04/26/2023 Pharmacy Pharmacy Hematology Oncology [facility] [address] [place] [address] [facility], [facility] Hem/Onc [address], [place] [phone] Multiple myeloma, remission status unspecified ([facility])* Allergies Active Allergy Reactions Severity Noted Date [...] MG Sublingual Tablet Sublingual (Nitrostat)Indicati ons:Atherosclerosis of [place] coronary artery of [place] heart without angina pectoris One tablet under [...] Bladder cancer 04/24/2020 Coronary artery disease involving [place]edar[place] heart without angina pectoris 05/22/2019 Old myocardial [...] other coronary artery 05/19/2015 03/20/2017 ST elevation [place] (STEMI) 01/12/2015 09/14/20 18 Myocardial infarction 02/03/2014 [...] this encounter Progress Notes * Gwen Godfrey, [facility] - 04/26/2023 8:15 AM EDT MEDICATION THERAPY MANAGEMENT LENALIDOMIDE TREATMENT PROGRESS NOTE Brian Salinas [phone] Patient Phone Numbers : Val Communication: Spoke to: Treatment: Medication: Lenalidomide (Revlimid) Indication: multiple myeloma Dose: 10mg daily D1-14 every 21 days Administration: +/- food Start Date: 04/01/22 Primary Rn Operating Room/Oncologist: Dr. De La Cruz Additional Therapy: Bortezomib Dexamethasone Supportive Care Meds: Ondansetron Prochlorperazine Prophylactic Meds: ASA Acyclovir Cycle Dates C1 04/01 - 04/14 C2 04/22 - 05/05 C3 05/13 - 05/26 C4 06/03 - 06/16 C5 06/24 - 07/07 C6 07/15 - 07/28 C7 Delayed d/t pt preference 9 day cycle 12/21 - 12/29 C8 01/05 - 01/18 C9 01/26 - 02/08 C10 02/16 - 03/01 C11 03/09 - 03/22 C12 03/30 - 04/12 C13 04/20 - 05/03 C14 05/11 - 05/24 (anticipated) Interval History: Per OV 06/22, delay treatment by one week then change bortezomib to every other week o Per TE 06/23, pt to start C5 [...] VRd treatment Confirmed cycle date as above States pt has not taken calcium supplement in a while and that is reason for hypocalcemia Inquiring what caused elevated blood glucose 03/29/23. States pt typically obtains fasting labs No concerns, tolerating therapy well Changes to medication list since last visit? No Assessment and Plan: WBC/ANC declining to WNL Hgb declining. Will monitor closely BUN and serum creatinine declining to baseline Ca2+ low o Reviewed resuming calcium and vitamin D supplement. o Advised to start Caltrate Plus D 1 tab daily and dose will be titrated based on labs in 2 weeks o replied with understanding All other labs stable Educated elevated blood glucose could be due to diet as certain foods that are high in carbohydrates and fat can keep blood sugar elevated for long periods of time o Reassured glucose has declined to WNL since 03/29/23 o Will monitor closely Continue current therapy and q2wk labs (next due with OV) Assessment of compliance: compliant Assessment of adverse effects attributed to drug therapy: DVT - absent Rash - absent Diarrhea/Constipation - absent Edema - absent Dose adjustment needed based on lab or adverse drug reaction? No Follow up: 2 weeks OV/labs; 6 weeks MTM Gwen Godfrey, PharmD, BCOP Clinical Pharmacist, [facility] Oral Chemotherapy [facility] 04/26/2023, 12:31 PM Pertinent labs: Latest Reference Range & Units 03/29/23 08:11 04/11/23 10:20 04/25/23 10:02 WBC 4.00 - 10.80 K/uL 10.00 10.84 (H) 6.66 HGB 14.0 - 16.8 g/dL 11.5 (L) 11.1 (L) 10.7 (L) HCT 40.0 - 48.4 % 35.4 (L) 36.0 (L) 35.3 (L) MCV 82.0 - 99.5 fL 100.3 102.9 104.4 PLT 140 - 400 K/uL 232 258 182 Absolute Neutrophils 1.80 - 7.70 K/uL 7.18 8.01 (H) 4.80 Latest Reference Range & Units 03/29/23 08:11 04/11/23 10:20 04/25/23 10:02 BUN 6 - 20 mg/dL 27 (H) 18 20 Creatinine 0.6 - 1.2 mg/dL 1.4 (H) 1.4 (H) 1.3 (H) Estimated Glomerular Filtration Rate >=60 mL/min 52 (L) 54 (L) 59 (L) Latest Reference Range & Units 03/29/23 08:11 04/11/23 10:20 04/25/23 10:02 Albumin 3.8 - 5.0 g/dL 3.9 3.7 (L) 3.7 (L) AST 10 - 50 U/L 11 13 16 ALT 10 - 50 U/L 16 17 19 Alkaline Phosphatase 35 - 130 U/L 85 87 105 Bilirubin, Total <=1.2 mg/dL 0.6 0.5 0.4 Suggested labs (multiple myeloma): CBCd [...] Needs additional monitoring - Medication Requires monitoring Education: Patient question Pharmacist Intervention(s): Education provided, Lab monitoring and Toxicity monitoring Magnitude of Intervention: Monitoring with direction (Level 1) Second Item Second Item Category: Vitamins & Minerals Calcium (oral) Problem/Rationale: Indication: Needs additional medication therapy - Untreated condition Pharmacist Intervention(s): Lab monitoring and Medication initiated (OTC) Magnitude of Intervention: Modification of medication for asymtomatic patients (Level 2) documented in this encounter Plan of Treatment Upcoming Encounters Date Type Specialty Care Team Description 05/10/2023 Laboratory Laboratory [facility] [address] [place] [address] 05/10/2023 Office Visit Hematology Oncology Luann De La Cruz MD [address] [facility] [place] [address] 05/10/2023 Hem/Onc Treatment Hematology Oncology 05/19/2023 Scheduled Telephone Pharmacy [facility] Hem/Onc Tech [address] [place] [address] 06/07/2023 Pharmacy Pharmacy [facility] Hem/Onc [address] [place] [address] 06/22/2023 Office Visit Cardiology Leda Myers PA-C [address] [address] 07/03/2023 Hem/Onc Treatment Hematology Oncology A, Infusion Chair [address] [place] [address] 07/03/2023 Appointment Radiology 07/03/2023 Office Visit Vascular Surgery Robin Burleson MD [address] [place] [address] 07/10/2023 Office Visit Family Medicine Savanah Geiger, [address], [place] [phone] Scheduled Procedures Name Priority Associated Diagnoses Date/Ti [...] Additional history exists CKD PHOS USE SMARTSET 44401 2024 02/13/2023, 0 02/11/2021 CKD HGB USE SMARTSET 16254 04/25/202404/25, 04/25/2023, 04/11/2023, Additional history exists O2 ASSESSMENT COMPLETED IN PAST YEAR FOR COPD 04/26/2024 04/26/2023 LUNG CANCER SCREENING - USE SMARTSET 66686 Completed 03/14/2022, 06/03/2020, 05/27/2020, Additional history exists [...] Primary documented in this encounter Care Teams Sheet Mill Supervisor Relationship Specialty Start Date End Date Savanah Geiger, DO [address], [place] [phone] PCP - General Family Medicine 04/11/12 documented as of this encounter
--- OUTSIDE RECORDS SUMMARY | 2023-08-22 17:30 | External Medical Summary ---
Author Name Unknown Address Unknown Organization K01:[facility] [place] [address] [facility] [place] [address] Laboratory Report Ordering Provider Test Date Status MARY ANNE LAGUNA 04/25/2023 10:02:22 Final Observation Date Value Abnormality Reference (Units ) Status BUN 04/25/2023 10:02:22 20 6-20 (mg/dL) Final Creatinine 04/25/2023 10:02:22 1.3 Above high normal 0.6-1.2 (mg/dL) Final Glomerular filtration rate/1.73 sq M.predicted [Volume Rate/Area] in Serum, Plasma or Blood by Creatinine-based formula (CKD-EPI) 04/25/2023 10:02:22 59 Below low normal >=60 (mL/min) Final eGFR is calculated based on the CKD-EPI 2020 equation SODIUM 04/25/2023 10:02:22 138 135-146 (m mol/L) Final Potassium 04/25/2023 10:02:22 3.8 3.5-5.1 (m mol/L) Final Cl 04/25/2023 10:02:22 105 98-107 (mm ol/L) Final CO2 04/25/2023 10:02:22 22 22-32 (mmo l/L) Final Anion gap 04/25/2023 10:02:22 11 7-15 (mmol /L) Final Glucose 04/25/2023 10:02:22 104 70-120 (mg /dL) Final Albumin 04/25/2023 10:02:22 3.7 Below low normal 3.8 -5.0 (g/dL) Final AST (Aspartate aminotransferase) 04/25/2023 10:02:22 16 10-50 (U/L) Fin al Alk Phos 04/25/2023 10:02:22 105 35-130 (U/ L) Final Bilirubin, Total 04/25/2023 10:02:22 0.4 <=1 .2 (mg/dL) Final Calcium 04/25/2023 10:02:22 8.1 Below low normal 8.4 -10.2 (mg/dL) Final Protein 04/25/2023 10:02:22 5.4 Below low normal 6.0 -8.3 (g/dL) Final ALT (Alanine aminotransferase) 04/25/2023 10:02:22 19 10-50 (U/L) Andrzej caal Performing Location [facility] [place] [facility] [address] [facility] [address]
--- OUTSIDE RECORDS SUMMARY | 2023-08-22 17:30 | External Medical Summary ---
Author Name Unknown Address Unknown Organization K01[facility] [place] [address] [facility] [place] [address] Laboratory Report Ordering Provider Test Date Status MARY ANNE LAGUNA 04/11/2023 10:20:19 Final Observation Date Value Abnormality Reference (Units ) Status SYNC LEUKOCYTES IN BLOOD BY AUTOMATED COUNT 04/11/2023 10:20:19 10.84 Above high normal 4.00-10.80 (K/uL) Final Segs 04/11/2023 10:20:19 73.9 40.0-75.0 (%) Final Lymphs % 04/11/2023 10:20:19 7.9 Below low normal 18.0-42.0 (%) Final Monos 04/11/2023 10:20:19 11.6 Above high normal 1.0-11.0 (%) Final Eosinophils 04/11/2023 10:20:19 4.6 0.0-6.0 (%) Final Basos 04/11/2023 10:20:19 0.4 0.0-2.0 (%) Final Immature Granulocyte, Percent 04/11/2023 10:20:19 1.6 0.0-2.0 (%) Final Absolute Segs 04/11/2023 10:20:19 8.01 Above high normal 1.80-7.70 (K/uL) Final Lymphs, absolute 04/11/2023 10:20:19 0.86 Below low normal 1.00-4.80 (K/ul) Final Monos, Abs 04/11/2023 10:20:19 1.26 Above high normal 0.00-1.10 (K/uL) Final Eos, Abs 04/11/2023 10:20:19 0.50 0.00-0.70 (K/uL) Final Basos, Abs 04/11/2023 10:20:19 0.04 0.00-0.20 (K/uL) Final Immature Granulocytes, Number 04/11/2023 10:20:19 0.17 0.00-0.20 (K/uL) Final Performing Location [facility] [place] [facility] [address] [facility] [address]
--- OUTSIDE RECORDS SUMMARY | 2023-08-22 17:30 | External Medical Summary | Summary of Care ---
Author Name Unknown Organization [facility] Address [address] [place] [address] Phone [phone] Care Team Providers Care Pork Cutlet Maker Name Role Phone Caseypiero Savanah Oswaldo JIMÉNEZ Primary Care Provider Reason for Visit * Reason Comments eRx-Medication Refill Encounter Details Date Type Department Care Team Description 04/20/2023 Refill Cardiology, [facility] [address] [place] [address] Brian Hager MD [address] [place] [address] Dyslipidemia, goal LDL below 100 Allergies Active Allergy Reactions Severity Noted Date Comments Calcium Carb-Cholecalciferol 016 documented as of this encounter (statuses as of 04/21/2023) Medications Medication Sig Dispensed Refills Start Date [...] 01/24/2023 Active Mirtazapine 15 MG Oral Tablet (Remeron)Indicat ions:Poor appetite TAKE 1 TAB BY MOUTH AT BEDTIME. TO HELP WITH APPETITE, AND MOOD. 90 Tablet 0 02/05/2023 Active Nitroglycerin 0.4 MG Sublingual Tablet Sublingual (Nitrostat)Indic ations:Atheroscl erosis of [place] coronary artery of [place] heart without angina pectoris One tablet under [...] 03/27/2023 Active Lenalidomide 10 MG Oral Capsule (Revlimid)Indica tions:Multiple myeloma not having achieved remission (HCC) TAKE 1 CAPSULE BY MOUTH 1 TIME A DAY FOR 14 DAYS ON THEN 7 DAYS OFF 14 Capsule 0 04/07/2023 Active Atorvastatin Calcium 80 MG Oral Tablet (Lipitor)Indicat ions:Dyslipidemi a, goal LDL below 100 TAKE 1 TABLET BY MOUTH EVERY DAY 90 Tablet 3 04/21/2023 Active Atorvastatin Calcium 80 MG Oral Tablet (Lipitor)Indicat ions:Dyslipidemi a, goal LDL below 100 TAKE 1 TABLET BY MOUTH EVERY DAY 90 Tablet 3 04/26/2022 3 Discontinued documented as of this encounter (statuses as of 04/21/2023) Active Problems Problem Noted Date Dyslipidemia 03/29/2022 [...] Bladder cancer 04/24/2020 Coronary artery disease involving [place] heart without angina pectoris 05/22/2019 Old myocardial infarct 12/06/2018 S/p bare metal coronary artery stent Tobacco use disorder 04/16/2012 HTN, goal below 130/80 2012 GERD (gastroesophageal reflux disease) 0 2012 documented as of this encounter (statuses as of 04/21/2023) Resolved Problems Problem Noted Date Resolved Date Dehydration 02/01/2021 03/29/2022 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 Atherosclerosis of coronary artery without angin a pectoris 09/14/2018 03/29/2022 ST elevation myocardial infarction (STEMI) 03/2012/06/2018 Lung nodule 10/14/2015 03/29/2022 ST elevation myocardial infa rction (STEMI) involving other coronary artery 05/19/2015 03/20/2017 ST elevation OR (STEMI) 01/12/2015 09/14/20 18 Myocardial infarction 02/03/2014 09/14/2018 COPD, moderate 08/27/2013 08/06/2020 Overview: Per COPD GOLD Classification Noncompliance 03/13/2013 03/21/2017 Anemia 05/03/2012 03/29/2022 COPD, severity to be determined 04/16/2012 08/27/2013 Dyslipidemia, goal LDL below 70 04/16/2012 03/29/2022 documented as of this encounter (statuses as of 04/21/2023) Immunizations Name Administration Dates Next Due COVID-19 mRNA, LNP-s, No Pre serve, 2-Dose Series (Wavo.me) 08/28/2021,02/18/2021,01/28/2021 Pneumococcal Conjugate Vacc, 13 Valent (Prevnar) [...] encounter Miscellaneous Notes * Telephone Encounter - Nirav Baires DO - 04/21/2023 9:26 AM EDTSigned Prescriptions: Disp Refills Atorvastatin Calcium 80 MG Oral Tablet (Li*90 Tab*3 Sig: TAKE 1 TABLET BY MOUTH EVERY DAY Authorizing Provider: NIRAV BAIRES * Telephone Encounter - GERARDO Combs - 04/20/2023 9:28 AM EDTPending Prescriptions: Disp Refills Atorvastatin Calcium 80 MG Oral Tablet [Ph*90 Tab*3 Sig: TAKE 1 TABLET BY MOUTH EVERY DAY * Telephone Encounter - GERARDO Combs - 04/20/2023 9:27 AM EDT Did you pend patient's preferred pharmacy and medication before forwarding?yes Pharmacy: [id number] Pending Prescriptions: Disp Refills Atorvastatin Calcium 80 MG Oral Tablet (L*90 Tab*3 Sig: TAKE 1 TABLET BY MOUTH EVERY DAY Last Visit: 12/16/2022 (in office), 10/21/2020 (telemedicine) Next Visit: 06/22/2023 If no future appointments scheduled, and last appointment is greater than a year ago, please schedule patient for a follow-up appointment Last date the medication was ordered: 04-26-2022 Is this request for a controlled substance?No Urine Drug Screen:No results found. However, due to the size of the patient record, not all encounters were searched. Please check Results Review for a complete set of results. Patient Phone Numbers Labs: Lab Results Component Value Date/Time CREAT 1.4 (H) 04/11/2023 10:20 AM CREAT 1.7 (H) 03/02/2022 09:56 AM CREAT 0.9 10/01/2020 07:44 AM POTASSIUM 4.1 04/11/2023 10:20 AM POTASSIUM 3.0 (L) 10/01/2020 07:44 AM TSH 1.01 04/11/2023 10:20 AM TSH 2.47 09/14/2018 12:22 PM LDLCALC 74 02/13/2023 08:03 AM LDLCALC 73 09/14/2018 12:22 PM LDLDIRECT NOT APPLICABLE 09/14/2018 12:22 PM ALT 17 04/11/2023 10:20 AM ALT 15 10/01/2020 07:44 AM documented in this encounter Plan of Treatment Upcoming Encounters Date Type Specialty Care Team Description 04/25/2023 Laboratory Laboratory [place], Laboratory [address] [place] [address] 04/26/2023 Pharmacy Pharmacy [facility] Hem/Onc [address] [place] [address] 04/26/2023 Hem/Onc Treatment Hematology Oncology Tresa, Chair 8 Hem Onc Scenery [address] [place] [address] 05/10/2023 Laboratory Laboratory [facility]resa Lab Scenery [address] [place] [address] 05/10/2023 Office Visit Hematology Oncology Luann De La Cruz MD [address] [place] [address] 05/10/2023 Hem/Onc Treatment Hematology Oncology 05/19/2023 Scheduled Telephone Pharmacy [facility] Hem/Onc Tech [address] [place] [address] 06/22/2023 Office Visit Cardiology Leda Myers PA-C [address] [place] [address] 07/03/2023 Hem/Onc Treatment Hematology Oncology A, Infusion Chair [address] [place] [address] 07/03/2023 Appointment Radiology 07/03/2023 Office Visit Vascular Surgery Robin Burleson MD [address] [place] [address] 07/10/2023 Office Visit Family Medicine Savanah Baires, DO [address] [place] [address] Scheduled Procedures Name Priority Associated [...] Additional history exists CKD PHOS USE SMARTSET 44685 2024 02/13/2023, 0 02/11/2021 CKD HGB USE SMARTSET 74027 04/11/202404/11, 04/11/2023, 03/29/2023, Additional history exists O2 ASSESSMENT COMPLETED IN PAST YEAR FOR COPD 04/12/2024 04/12/2023 LUNG CANCER SCREENING - USE SMARTSET 60975 Completed 03/14/2022, 06/03/2020, 05/27/2020, Additional history exists [...] hyperlipidemia documented in this encounter Care Teams Pork Cutlet Maker Relationship Specialty Start Date End Date Savanah Baires, DO [address], [place] [phone] PCP - General Family Medicine 04/11/12 documented as of this encounter
--- OUTSIDE RECORDS SUMMARY | 2023-08-22 17:30 | External Medical Summary | Summary of Care ---
Author Name Unknown Organization [facility] Address [address] [place] [address] Phone [phone] Care Team Providers Care Corporate Learning Consultant Name Role Phone GriffinhughSavanah jessica DO Primary Care Provider Reason for Visit * Reason Onset Date Comments Medication Administration 04/17/2023 revlim id Encounter Details Date Type Department Care Team Description 04/17/2023 Telephone Hematology/Oncology [facility] [place] [address] [place] [address] Farooq Nielsen MD [address] [place] [address] Medication Administration (revlimid) Allergies Active Allergy Reactions [...] MG Sublingual Tablet Sublingual (Nitrostat)Indicati ons:Atherosclerosis of [place] coronary artery of [place] heart without angina pectoris One tablet under [...] Bladder cancer 04/24/2020 Coronary artery disease involving [place] heart without angina pectoris 05/22/2019 Old myocardial [...] mRNA, LNP-s, No Pre serve, 2-Dose Series (Kannuu) 08/28/2021,02/18/2021,01/28/2021 Pneumococcal Conjugate Vacc, 13 Valent (Prevnar) [...] Care Team Description 04/20/2023 Scheduled Telephone Pharmacy [facility] Hem/Onc Tech [address] [place] [address] 04/25/2023 Laboratory Laboratory [facility] [address] [place] [address] 04/26/2023 Pharmacy Pharmacy [facility] Hem/Onc [address] [place] [address] 04/26/2023 Hem/Onc Treatment Hematology Oncology [place], Chair 8 Hem Onc Scenery [address] [place] [address] 05/10/2023 Laboratory Laboratory [place], Lab Scenery [address] [place] [address] 05/10/2023 Office Visit Hematology Oncology Luann De La Cruz MD [address] [place] [address] 05/10/2023 Hem/Onc Treatment Hematology Oncology 06/22/2023 Office Visit Cardiology Leda Myers PA-C [address] [place] [address] 07/03/2023 Hem/Onc Treatment Hematology Oncology A, Infusion Chair [address] [place] [address] 07/03/2023 Appointment Radiology 07/03/2023 Office Visit Vascular Surgery Robin Burleson MD [address] [place] [address] 07/10/2023 Office Visit Family Medicine Savanah Geiger DO [address] [place] [address] Scheduled Procedures Name Priority Associated Diagnoses Date/Ti [...] Additional history exists CKD PHOS USE SMARTSET 01403 2024 02/13/2023, 0 02/11/2021 CKD HGB USE SMARTSET 92684 04/11/202404/11, 04/11/2023, 03/29/2023, Additional history exists O2 ASSESSMENT COMPLETED IN PAST YEAR FOR COPD 04/12/2024 04/12/2023 LUNG CANCER SCREENING - USE SMARTSET 53955 Completed 03/14/2022, 06/03/2020, 05/27/2020, Additional history exists [...] as of this encounter Care Teams Corporate Learning Consultant Relationship Specialty Start Date End Date Savanah Geiger, DO [address] [place] [address] PCP - General Family Medicine 04/11/12 documented as of this encounter
--- OUTSIDE RECORDS SUMMARY | 2023-08-22 17:30 | External Medical Summary | Summary of Care ---
Author Name Unknown Organization [facility] Address [address] [place] [address] Phone [phone] Care Team Providers Care Residential Real Estate Assistant Name Role Phone GriffinreedSavanah DO Primary Care Provider + [phone] Reason for Visit * Reason Comments Outpatient Testing Encounter Details Date Type Department Care Team Description 04/25/2023 Laboratory Laboratory, [facility] [address] [place] [address] [facility], Laboratory [address] [place] [address] Multiple myeloma not having achieved remission (HCC) Allergies Active Allergy Reactions Severity Noted Date Comments Calcium Carb-Cholecalciferol 016 documented as of this encounter (statuses as of 04/25/2023) Medications Medication Sig Dispensed Refills Start Date [...] Tablet Sublingual (Nitrostat)Indicati ons:Atherosclerosis of [place] coronary artery of [place] heart without angina pectoris One tablet under [...] as of this encounter (statuses as of 04/25/2023) Active Problems Problem Noted Date Dyslipidemia 03/29/2022 [...] 04/24/2020 Coronary artery disease involving [place] heart without angina pectoris 05/22/2019 Old myocardial infarct 12/06/2018 S/p bare metal coronary artery stent Tobacco use disorder 04/16/2012 HTN, goal below 130/80 2012 GERD (gastroesophageal reflux disease) 0 2012 documented as of this encounter (statuses as of 04/25/2023) Resolved Problems Problem Noted Date Resolved Date [...] as of this encounter (statuses as of 04/25/2023) Immunizations Name Administration Dates Next Due COVID-19 [...] Encounters Date Type Specialty Care Team Description 04/26/2023 Pharmacy [facility] Hem[facility]Onc [address] [facility] [place] [address] 04/26/2023 Hem/Onc Treatment Hematology Oncology [place], Chair 8 Hem Onc Scenery [address] [place] [address] 05/10/2023 Laboratory Laboratory [facility] [address] [facility] [place] [address] 05/10/2023 Office Visit Hematology Oncology Luann De La Cruz MD [address] [facility] [place] [address] 05/10/2023 Hem/Onc Treatment Hematology Oncology 05/19/2023 Scheduled Telephone Pharmacy [facility] Hem/Onc Tech [address] [place] [address] 06/22/2023 Office Visit Cardiology Leda Myers PA-C [address] [place] [address] 07/03/2023 Hem/Onc Treatment Hematology Oncology A, Infusion Chair [address] [place] [address] 07/03/2023 Appointment Radiology 07/03/2023 Office Visit Vascular Surgery Robin Burleson MD [address] [place] [address] 07/10/2023 Office Visit Family Medicine Savanah Geiger, [address] [place] [address] Pending Results Name Type Priority Associated Diagnoses Date /Time COMPREHENSIVE METABOLIC PANEL Lab Routine Multiple myeloma not having achieved remission (HCC) 04/25/2023 10:02 AM EDT CBC WITH WBC DIFFERENTIAL Lab Routine Multiple myeloma not having achieved remission (HCC) 04/25/2023 10:02 AM EDT CBC Lab Routine Multiple myeloma not having achieved remission (HCC) 04/25/2023 10:02 AM EDT DIFFERENTIAL, AUTOMATED Lab Routine Multiple myeloma not having achieved remission (HCC) 04/25/2023 10:02 AM EDT Scheduled Procedures Name Priority Associated [...] Additional history exists CKD PHOS USE SMARTSET 94741 2024 02/13/2023, 0 02/11/2021 CKD HGB USE SMARTSET 75431 04/11/202404/11, 04/11/2023, 03/29/2023, Additional history exists O2 ASSESSMENT COMPLETED IN PAST YEAR FOR COPD 04/12/2024 04/12/2023 LUNG CANCER SCREENING - USE SMARTSET 57534 Completed 03/14/2022, 06/03/2020, 05/27/2020, Additional history exists [...] remission documented in this encounter Care Teams Residential Real Estate Assistant Relationship Specialty Start Date End Date Savanah Geiger, DO [address] [place] [address] PCP - General Family Medicine 04/11/12 documented as of this encounter
--- OUTSIDE RECORDS SUMMARY | 2023-08-22 17:30 | External Medical Summary ---
Author Name Unknown Address Unknown Organization K01:LAB[facility]ATORY [place] [address] [facility] [address] Laboratory Report Ordering Provider Test Date Status MARY ANNE LAGUNA 04/11/2023 10:20:19 Final Observation Date Value Abnormality Reference (Units ) Status [place] light chains, Free, Serum 04/11/2023 10:20:19 20.58 Above high normal 3.30-19.40 (mg/L) Final Lambda light chains, free, Serum 04/11/2023 10:20:19 28.41 Above high normal 5.71-26.30 (mg/L) Final KAPPA LAMBDA [facility] RATIO 04/11/2023 10:20:19 0.72 0.26-1.65 Final Performing Location [facility] [place] [address]
--- OUTSIDE RECORDS SUMMARY | 2023-08-22 17:30 | External Medical Summary | Summary of Care ---
Author Name Unknown Organization [facility] Address [address] [place] [address] Phone [phone] Care Team Providers Care Warehouse Receiver Name Role Phone GriffinhughSavanah jessica DO Primary Care Provider Reason for Visit * Reason Onset Date Comments Medication Administration 04/17/2023 revlim id Encounter Details Date Type Department Care Team Description 04/17/2023 Telephone Hematology/Oncology [facility] [place] [address] [place] [address] Farooq Nielsen MD [address] [place] [address] Medication Administration (revlimid) Allergies Active Allergy Reactions [...] MG Sublingual Tablet Sublingual (Nitrostat)Indicati ons:Atherosclerosis of [place] coronary artery of [place] heart without angina pectoris One tablet under [...] Bladder cancer 04/24/2020 Coronary artery disease involving [place] heart without angina pectoris 05/22/2019 Old myocardial [...] Telephone Encounter - Sarahy Rodriges RN - 04/17/2023 11:34 AM EDT Called and spoke to patients , new calendar sent. * Telephone Encounter - Sonya Melgoza LPN [...] Care Team Description 04/20/2023 Scheduled Telephone Pharmacy [facility] Hem/Onc Tech [address] [place] [address] 04/25/2023 Laboratory Laboratory [address] [address] 04/26/2023 Pharmacy Pharmacy [facility] Hem/Onc [address] [place] [address] 04/26/2023 Hem/Onc Treatment Hematology Oncology Tresa, Chair 8 Hem Onc Scenery [address] [place] [address] 05/10/2023 [facility] Sc[facility] [address] [place] [address] 05/10/2023 Office Visit Hematology Oncology Luann De La Cruz MD [address] [place] [address] 05/10/2023 Hem/Onc Treatment Hematology Oncology 06/22/2023 Office Visit Cardiology Leda Myers PA-C [address] [place] [address] 07/03/2023 Hem/Onc Treatment Hematology Oncology A, Infusion Chair [address] [place] [address] 07/03/2023 Appointment Radiology 07/03/2023 Office Visit Vascular Surgery Robin Burleson MD [address] [place] [address] 07/10/2023 Office Visit Family Medicine Savanah Geiger, [address] [place] [address] Scheduled Procedures Name Priority Associated [...] Additional history exists CKD PHOS USE SMARTSET 45359 2024 02/13/2023, 0 02/11/2021 CKD HGB USE SMARTSET 09816 04/11/202404/11, 04/11/2023, 03/29/2023, Additional history exists O2 ASSESSMENT COMPLETED IN PAST YEAR FOR COPD 04/12/2024 04/12/2023 LUNG CANCER SCREENING - USE SMARTSET 94100 Completed 03/14/2022, 06/03/2020, 05/27/2020, Additional history exists [...] filedocumented as of this encounter Care Teams Warehouse Receiver Relationship Specialty Start Date End Date Savanah Geiger, [address] [place] [address] PCP - General Family Medicine 04/11/12 documented as of this encounter
--- OUTSIDE RECORDS SUMMARY | 2023-08-22 17:30 | External Medical Summary ---
Author Name Unknown Address Unknown Organization K01:[facility] [place] [address] [facility] [place] [address] Laboratory Report Ordering Provider Test Date Status MARY ANNE LAGUNA 04/11/2023 10:20:19 Final Observation Date Value Abnormality Reference (Units) Status Protein 10:20:19 5.3 Below low normal 6.0-8.3 (g/dL) Final Albumin/Protein.total [Pure mass fraction] in Serum or Plasma by Electrophoresis 10:20:19 2.84 Below low normal 3.30-4.40 (g/dL) Final Alpha 1 globulin/Protein.tota l [Pure mass fraction] in Serum or Plasma by Electrophoresis 10:20:19 0.21 0.10-0.30 (g/dL) Final Alpha 2 globulin/Protein.tota l [Pure mass fraction] in Serum or Plasma by Electrophoresis 10:20:19 0.96 0.60-1.00 (g/dL) Final Beta globulin/Protein.tota l [Pure mass fraction] in Serum or Plasma by Electrophoresis 10:20:19 0.72 Below low normal 0.80-1.30 (g/dL) Final Gamma globulin/Protein.tota l [Pure mass fraction] in Serum or Plasma by Electrophoresis 10:20:19 0.58 Below low normal 0.70-1.70 (g/dL) Final Protein Fractions [Interpretation] in Serum or Plasma by Electrophoresis Narrative 10:20:19 A paraprotein is present that has been previously identified as a monoclonal IgG lambda. Decreased gamma fraction. Paraprotein concentration is detectable, but less than 0.5 g/dL, unable to be accurately quantified by this method. Final Performing Location [facility] [place] [address] [facility] [place] [address]
--- OUTSIDE RECORDS SUMMARY | 2023-08-22 17:30 | External Medical Summary ---
Author Name Unknown Address Unknown Organization K01:LAB[facility]AT[facility] - [address] [place] [address] Laboratory Report Ordering Provider Test Date Status MARY ANNE LAGUNA 04/11/2023 10:20:19 Final Observation Date Value Abnormality Reference (Units ) Status IgG 04/11/2023 10:20:19 558 Below low normal 700 -1600 (mg/dL) Final IgA 04/11/2023 10:20:19 126 70-400 (mg /dL) Final IgM 04/11/2023 10:20:19 11 Below low normal 40- 230 (mg/dL) Final Performing Location LABORATORY [facility] - [address] [place] [address]
--- OUTSIDE RECORDS SUMMARY | 2023-08-22 17:30 | External Medical Summary ---
Author Name Unknown Address Unknown Organization K01:[facility] [place] [address] [place] [address] Laboratory Report Ordering Provider Test Date Status MARY ANNE LAGUNA 04/25/2023 10:02:22 Final Observation Date Value Abnormality Reference (Units ) Status WBC, Total 04/25/2023 10:02:22 6.66 4.00-10.80 (K/uL) Final RBC 04/25/2023 10:02:22 3.38 4.50-5.25 (M/uL) Final Hemoglobin 04/25/2023 10:02:22 10.7 Below low normal 14.0-16.8 (g/dL) Final HCT 04/25/2023 10:02:22 35.3 Below low normal 40.0-48.4 (%) Final MCV 04/25/2023 10:02:22 104.4 82.0-99.5 (fL) Final MCH 04/25/2023 10:02:22 31.7 27.0-34.0 (pg) Final MCHC 04/25/2023 10:02:22 30.3 32.0-36.0 (g/dL) Final RDW 04/25/2023 10:02:22 17.1 11.5-15.5 (%) Final Platelets 04/25/2023 10:02:22 182 140-400 (K/uL) Final MPV 04/25/2023 10:02:22 12.0 6.6-11.1 (fL) Final Nucleated erythrocytes/100 leukocytes [Ratio] in Blood by Automated count 04/25/2023 10:02:22 0 <=0 (/100 WBCs) Final Performing Location LABORATORY [place] - [facility] [address] [place] [address]
--- OUTSIDE RECORDS SUMMARY | 2023-08-22 17:30 | External Medical Summary ---
Author Name Unknown Address Unknown Organization K01:[facility]ATORY [facility] [place] - [address] [facility] [place] [address] Laboratory Report Ordering Provider Test Date Status MARY ANNE LAGUNA 04/11/2023 10:20:19 Final Observation Date Value Abnormality Reference (Units ) Status BUN 04/11/2023 10:20:19 18 6-20 (mg/dL) Final Creatinine 04/11/2023 10:20:19 1.4 Above high normal 0.6-1.2 (mg/dL) Final Glomerular filtration rate/1.73 sq M.predicted [Volume Rate/Area] in Serum, Plasma or Blood by Creatinine-based formula (CKD-EPI) 04/11/2023 10:20:19 54 Below low normal >=60 (mL/min) Final eGFR is calculated based on the CKD-EPI 2020 equation SODIUM 04/11/2023 10:20:19 137 135-146 (m mol/L) Final Potassium 04/11/2023 10:20:19 4.1 3.5-5.1 (m mol/L) Final Cl 04/11/2023 10:20:19 105 98-107 (mm ol/L) Final CO2 04/11/2023 10:20:19 22 22-32 (mmo l/L) Final Anion gap 04/11/2023 10:20:19 10 7-15 (mmol /L) Final Glucose 04/11/2023 10:20:19 93 70-120 (mg /dL) Final Albumin 04/11/2023 10:20:19 3.7 Below low normal 3.8 -5.0 (g/dL) Final AST (Aspartate aminotransferase) 04/11/2023 10:20:19 13 10-50 (U/L) Fin al Alk Phos 04/11/2023 10:20:19 87 35-130 (U/ L) Final Bilirubin, Total 04/11/2023 10:20:19 0.5 <=1 .2 (mg/dL) Final Calcium 04/11/2023 10:20:19 8.2 Below low normal 8.4 -10.2 (mg/dL) Final Protein 04/11/2023 10:20:19 5.3 Below low normal 6.0 -8.3 (g/dL) Final ALT (Alanine aminotransferase) 04/11/2023 10:20:19 17 10-50 (U/L) Andrzej caal Performing Location LABORATORY [facility] [place] - [facility] [address] [facility] [address]
[2023-08-22 17:31] LABS: D Dimer 1990 ug/L FEU (0-500)
--- OUTSIDE RECORDS SUMMARY | 2023-08-22 17:31 | External Medical Summary | Summary of Care ---
Author Name Unknown Organization [facility] Address [address] [place] [address] Phone [phone] Care Team Providers Care Central Sterilization Technician Name Role Phone CaseySavanah harry Oswaldo JIMÉNEZ Primary Care Provider Encounter Details Date Type Department Care Team Description 04/07/2023 Orders Only Hematology/Oncology [facility] Tresa [place] [address] [facility] [place] [address] Luann De La Cruz MD [address] [place] [address] Allergies Active Allergy Reactions Severity Noted Date Comments Calcium Carb-Cholecalciferol 016 documented as of this encounter (statuses as of 04/07/2023) Medications Medication Sig Dispensed Refills Start Date [...] Sublingual Tablet Sublingual (Nitrostat)Indic ations:Atheroscl erosis of [place] coronary artery of [place] heart without angina pectoris One tablet under [...] remission (HCC) TAKE 1 CAPSULE BY MOUTH EVERY MORNING FOR 14 DAYS ON AND 7 DAYS OFF 14 Capsule 0 03/13/2023 3 Discontinued documented as of this encounter (statuses as of 04/07/2023) Active Problems Problem Noted Date Dyslipidemia 03/29/2022 [...] Bladder cancer 04/24/2020 Coronary artery disease involving [place] heart without angina pectoris 05/22/2019 Old myocardial infarct 12/06/2018 S/p bare metal coronary artery stent Tobacco use disorder 04/16/2012 HTN, goal below 130/80 2012 GERD (gastroesophageal reflux disease) 0 2012 documented as of this encounter (statuses as of 04/07/2023) Resolved Problems Problem Noted Date Resolved Date [...] as of this encounter (statuses as of 04/07/2023) Immunizations Name Administration Dates Next Due COVID-19 [...] Encounters Date Type Specialty Care Team Description 04/11/2023 Laboratory Laboratory [place] [address] [place] [address] 04/12/2023 Hem/Onc Treatment Hematology Oncology [place], Chair 4 Hem Onc Scenery [address] [place] [address] 04/20/2023 Scheduled Telephone Pharmacy [facility] Hem/Onc Tech [address] [place] [address] 04/25/2023 Laboratory Laboratory [facility] [address] [place] [address] 04/26/2023 Pharmacy Pharmacy [facility] Hem/Onc [address] [place] [address] 04/26/2023 Hem/Onc Treatment Hematology Oncology [place]resa, Chair 8 Hem Onc Scenery [address] [place] [address] 05/10/2023 Laboratory Laboratory Tresa [facility] Scenery [address] [place] [address] 05/10/2023 Office Visit Hematology Oncology Luann De La Cruz MD [address] [place] [address] 05/10/2023 Hem/Onc Treatment Hematology Oncology 06/22/2023 Office Visit Cardiology Leda Myers PA-C [address] [place] [address] 07/03/2023 Hem/Onc Treatment Hematology Oncology A, Infusion Chair [address] [place] [facility] [place] [address] 07/03/2023 Appointment Radiology 07/03/2023 Office Visit Vascular Surgery Robin Burleson MD [address] [place] [place] [address] 07/10/2023 Office Visit Family Medicine Savanah Geiger, DO [address] [place] [address] Scheduled Procedures Name Priority Associated Diagnoses Date/Ti [...] Additional history exists CKD PHOS USE SMARTSET 03037 2024 02/13/2023, 0 02/11/2021 CKD HGB USE SMARTSET 92210 03/29/202403/29, 03/29/2023, 03/14/2023, Additional history exists O2 ASSESSMENT COMPLETED IN PAST YEAR FOR COPD 03/29/2024 03/29/2023 LUNG CANCER SCREENING - USE SMARTSET 58260 Completed 03/14/2022, 06/03/2020, 05/27/2020, Additional history exists [...] filedocumented as of this encounter Care Teams Central Sterilization Technician Relationship Specialty Start Date End Date Savanah Geiger, [address] [place] [address] PCP - General Family Medicine 04/11/12 documented as of this encounter
--- OUTSIDE RECORDS SUMMARY | 2023-08-22 17:31 | External Medical Summary ---
Author Name Unknown Address Unknown Organization K01:[facility] [place] [address] [place], [place] [address] Laboratory Report Ordering Provider Test Date Status MARY ANNE LAGUNA 03/29/2023 08:11:37 Final Observation Date Value Abnormality Reference (Units ) Status Blawnox light chains, Free, Serum 03/29/2023 08:11:37 20.09 Above high normal 3.30-19.40 (mg/L) Final Lambda light chains, free, Serum 03/29/2023 08:11:37 26.16 5.71-26.30 (mg/L) Final KAPPA LAMBDA FLC RATIO 03/29/2023 08:11:37 0.77 0.26-1.65 Final Performing Location [facility] - [facility] [place] [address]
--- OUTSIDE RECORDS SUMMARY | 2023-08-22 17:31 | External Medical Summary ---
Author Name Unknown Address Unknown Organization [id number]:[facility] - [address] [place] [address] Laboratory Report Ordering Provider Test Date Status MARY ANNE LAGUNA 03/29/2023 08:11:37 Final Observation Date Value Abnormality Reference (Units ) Status IgG 03/29/2023 08:11:37 629 Below low normal 700 -1600 (mg/dL) Final IgA 03/29/2023 08:11:37 103 70-400 (mg /dL) Final IgM 03/29/2023 08:11:37 15 Below low normal 40- 230 (mg/dL) Final Performing Location [facility] - [address] [place] [address]
--- OUTSIDE RECORDS SUMMARY | 2023-08-22 17:31 | External Medical Summary | Summary of Care ---
Author Name Unknown Organization [facility] Address [address] [place] [address] Phone [phone] Care Team Providers Care Bead Wrapper Name Role Phone CaseySavanah harry Oswaldo JIMÉNEZ Primary Care Provider Reason for Visit * Reason Onset Date Comments Advice 03/20/2023 Dr. De La Cruz Encounter Details Date Type Department Care Team Description 03/20/2023 Telephone Hematology/Oncology [facility] [address] [place] [address] Luann De La Cruz MD [address] [place] [address] Advice (Dr. De La Cruz) Allergies Active Allergy Reactions Severity Noted Date Comments Calcium Carb-Cholecalciferol 016 documented as of this encounter (statuses as of 03/21/2023) Medications Medication Sig Dispensed Refills Start Date [...] 08/15/2022 Active Famotidine 20 MG Oral Tablet (Pepcid)Indicatio ns:Gastroesophage al reflux disease without esophagitis TAKE 1 TABLET BY MOUTH TWICE A DAY 180 Tablet 1 11/09/2022 Active Probiotic Acidophilus Oral Capsule Take by mouth daily. 0 Active Acyclovir 400 MG Oral Tablet (Zovirax) TAKE 1 TABLET BY MOUTH EVERY DAY IN THE MORNING AND BEFORE BEDTIME 0 12/29/2022 Active Dexamethasone 4 MG Oral Tablet (Decadron)Indicat ions:Multiple myeloma (HCC) Take 40mg (10 tablets) once a week 40 Tablet 5 01/09/2023 Active traMADol HCl 50 MG Oral Tablet (Ultram)Indicatio ns:Multiple myeloma, remission status unspecified (HCC) Take 1 Tablet by mouth every 6 hours as needed for Pain, Moderate. 30 Tablet 0 01/24/2023 Active Mirtazapine 15 MG Oral Tablet (Remeron)Indicati ons:Poor appetite TAKE 1 TAB BY MOUTH AT BEDTIME. TO HELP WITH APPETITE, AND MOOD. 90 Tablet 0 02/05/2023 Active Lenalidomide 10 MG Oral Capsule (Revlimid)Indicat ions:Multiple myeloma not having achieved remission (HCC) TAKE 1 CAPSULE BY MOUTH EVERY MORNING FOR 14 DAYS ON AND 7 DAYS OFF 14 Capsule 0 03/13/2023 Active Nitroglycerin 0.4 MG Sublingual Tablet Sublingual (Nitrostat)Indica tions:Atheroscler osis of [place] coronary artery of [place] heart without angina pectoris One tablet under tongue if needed for chest pain. May repeat 3 times. If chest pain continues, call 911 25 Tablet 11 01/23/2023 3 Discontinue d(Refill) documented as of this encounter (statuses as of 03/21/2023) Active Problems Problem Noted Date Dyslipidemia 03/29/2022 [...] Bladder cancer 04/24/2020 Coronary artery disease involving [place] heart without angina pectoris 05/22/2019 Old myocardial infarct 12/06/2018 S/p bare metal coronary artery stent Tobacco use disorder 04/16/2012 HTN, goal below 130/80 2012 GERD (gastroesophageal reflux disease) 0 2012 documented as of this encounter (statuses as of 03/21/2023) Resolved Problems Problem Noted Date Resolved Date Dehydration 02/01/2021 03/29/2022 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 Atherosclerosis of coronary artery without angin a pectoris 09/14/2018 03/29/2022 ST elevation myocardial infarction (STEMI) 03/2012/06/2018 Lung nodule 10/14/2015 03/29/2022 ST elevation myocardial infa rction (STEMI) involving other coronary artery 05/19/2015 03/20/2017 ST elevation [place] (STEMI) 01/12/2015 09/14/20 18 Myocardial infarction 02/03/2014 09/14/2018 COPD, moderate 08/27/2013 08/06/2020 Overview: Per COPD GOLD Classification Noncompliance 03/13/2013 03/21/2017 Anemia 05/03/2012 03/29/2022 COPD, severity to be determined 04/16/2012 08/27/2013 Dyslipidemia, goal LDL below 70 04/16/2012 03/29/2022 documented as of this encounter (statuses as of 03/21/2023) Immunizations Name Administration Dates Next Due COVID-19 [...] Telephone Encounter - Sarahy Rodriges RN - 03/21/2023 9:23 AM EDT Calendar for pills was mailed to patient last week. * Telephone Encounter - JOSE Young - 03/20/2023 10:23 AM EDT Called patient back, phone does not ring, just states voicemail is unavailable. Will mail another AVS in case one was not mailed. * Telephone Encounter - JOSE Campbell - 03/20/2023 10:03 AM EDT Pt called in stating that at this last infusion treatment they were unable to print him out a new calendar and was told they would be send him one out. He is asking if anyone had sent out? He is asking for a return call to discuss. documented in this encounter Plan of Treatment Upcoming Encounters Date Type Specialty Care Team Description 03/23/2023 Scheduled Telephone Pharmacy [facility] Hem/Onc Tech [address] [place] [address] 03/29/2023 Laboratory Laboratory [place], Lab Scenery [address] [place] [address] 03/29/2023 Office Visit Hematology Oncology Luann De La Cruz MD [address] [place] [address] 03/29/2023 Hem/Onc Treatment Hematology Oncology Tresa, Chair 4 Hem Onc Scenery [address] [place] [address] 04/26/2023 Pharmacy Pharmacy [facility] Hem/Onc [address] [place] [address] 06/22/2023 Office Visit Cardiology Leda Myers PA-C [address] [place] [address] 07/03/2023 Hem/Onc Treatment Hematology Oncology A, Infusion Chair [address] [place] [address] 07/03/2023 Appointment Radiology 07/03/2023 Office Visit Vascular Surgery Robin Burleson MD [address] [place] [address] 07/10/2023 Office Visit Family Medicine Savanah Geiger, [address] [place], [place] [address] Scheduled Procedures Name Priority Associated Diagnoses Date/Ti [...] 07/30/2020, 07/12/2017 (Declined) COVID-19 Vaccine (4 - Booster for Pfizer series) 10/23/2021 08/28/2021, 02/18/2021, 01/28/2021 GFR 09/13/2023 03/14/2023, 06/0 02/2023, 02/13/2023, Additional history exists AAA MONITORING; CT OR US YEARLY 12/27/2023 12/26/2022, 03/02/2022, 09/10/2021, Additional history exists AAA ULTRASOUND YEARLY 12/27/2023 12/26/2022 , 03/02/2022, 09/10/2021, Additional history exists CKD PHOS USE SMARTSET 72771 2024 02/13/2023, 0 02/11/2021 O2 ASSESSMENT COMPLETED IN PAST YEAR FOR COPD 03/01/2024 03/01/2023 CKD HGB USE SMARTSET 39869 03/14/202403/14, 03/14/2023, 02/28/2023, Additional history exists LUNG CANCER SCREENING - USE SMARTSET 74608 Completed 03/14/2022, 06/03/2020, 05/27/2020, Additional history exists Influenza Vaccine (FLU shot) Completed , 07/12/2021, 07/09/2020, Additional history exists Pneumococcal Vaccine: 65+ Years [...] filedocumented as of this encounter Care Teams Bead Wrapper Relationship Specialty Start Date End Date Savanah Geiger, [address] [place] [address] PCP - General Family Medicine 04/11/12 documented as of this encounter
--- OUTSIDE RECORDS SUMMARY | 2023-08-22 17:31 | External Medical Summary ---
Author Name Unknown Address Unknown Organization K09:[facility] [place] [address] Laboratory Report Ordering Provider Test Date Status MARY ANNE LAGUNA 03/29/2023 08:11:37 Final Observation Date Value Abnormality Reference (Units ) Status WBC, Total 03/29/2023 08:11:37 10.00 4.00-10.8 0 (K/uL) Final RBC 03/29/2023 08:11:37 3.53 4.50-5.25 (M/uL) Final Hemoglobin 03/29/2023 08:11:37 11.5 Below low normal 14 .0-16.8 (g/dL) Final HCT 03/29/2023 08:11:37 35.4 Below low normal 40. 0-48.4 (%) Final MCV 03/29/2023 08:11:37 100.3 82.0-99.5 (fL) Final MCH 03/29/2023 08:11:37 32.6 27.0-34.0 (pg) Final MCHC 03/29/2023 08:11:37 32.5 32.0-36.0 (g/dL) Final RDW 03/29/2023 08:11:37 17.6 11.5-15.5 (%) Final Platelets 03/29/2023 08:11:37 232 140-400 (K /uL) Final MPV 03/29/2023 08:11:37 10.3 6.6-11.1 ( fL) Final Performing Location [facility] [address]
--- OUTSIDE RECORDS SUMMARY | 2023-08-22 17:31 | External Medical Summary | Summary of Care ---
Author Name Unknown Organization [facility] Address [address] [place] [address] Phone [phone] Care Team Providers Care Plant Electrician Name Role Phone Savanah Geiger DO Primary Care Provider [phone] Reason for Visit * Reason Onset Date Comments Advice 03/23/2023 Encounter Details Date Type Department Care Team Description 03/23/2023 Telephone Hematology/Oncology [facility] [address] [place] [address] Services, Scheduling [address] [place] [address] Advice Allergies Active Allergy Reactions Severity Noted Date Comments Calcium Carb-Cholecalciferol 016 documented as of this encounter (statuses as of 03/23/2023) Medications Medication Sig Dispensed Refills Start Date [...] 12/29/2022 Active Dexamethasone 4 MG Oral Tablet (Decadron)Indicatio [...] 02/05/2023 Active Lenalidomide 10 MG Oral Capsule (Revlimid)Indicatio ns:Multiple myeloma not having achieved remission (HCC) TAKE 1 CAPSULE BY MOUTH EVERY MORNING FOR 14 DAYS ON AND 7 DAYS OFF 14 Capsule 0 03/13/2023 Active Nitroglycerin 0.4 MG Sublingual Tablet Sublingual (Nitrostat)Indicati ons:Atherosclerosis of [place] coronary artery of [place] heart without angina pectoris One tablet under tongue if needed for chest pain. May repeat 3 times. If chest pain continues, call 911 75 Tablet 3 03/20/2023 Active documented as of this encounter (statuses as of 03/23/2023) Active Problems Problem Noted Date Dyslipidemia 03/29/2022 [...] Bladder cancer 04/24/2020 Coronary artery disease involving [place] heart without angina pectoris 05/22/2019 Old myocardial infarct 12/06/2018 S/p bare metal coronary artery stent Tobacco use disorder 04/16/2012 HTN, goal below 130/80 2012 GERD (gastroesophageal reflux disease) 0 2012 documented as of this encounter (statuses as of 03/23/2023) Resolved Problems Problem Noted Date Resolved Date [...] as of this encounter (statuses as of 03/23/2023) Immunizations Name Administration Dates Next Due COVID-19 [...] Telephone Encounter - Sarahy Rodriges RN - 03/23/2023 11:40 AM EDT Called and spoke to patients . She states that she was confused by calendar because velcade is every other week but is on calendar for weekly. Apologized for this, advised her that patient will be due for velcade 03/29 and 04/12. She states that she will cross off the other dates. She states that at office visit 03/29Brian plans on discussing continuing treatment with Dr De La Cruz. He has been seeing Dr Garcia for urology procedures and is unsure if treatment should be delayed due to this. She states that Dr De La Cruz does not need to be made aware of this prior to the visit as Brain will be able to explain it better than she can. * Telephone Encounter - JOSE Lee - 03/23/2023 8:55 AM EDT Patients calling in has some questions that need answered. Would not provide specifics. documented in this encounter Plan of Treatment Upcoming Encounters Date Type Specialty Care Team Description 03/29/2023 Laboratory Laboratory [facility] Lab Scenery [address] [place] [address] 03/29/2023 Office Visit Hematology Oncology Luann De La Cruz MD [address] [place] [address] 03/29/2023 Hem/Onc Treatment Hematology Oncology [place], Chair 4 Hem Onc Scenery [address] [place] [address] 04/20/2023 Scheduled Telephone Pharmacy [facility] Hem/Onc Tech [address] [place] [address] 04/26/2023 Pharmacy Pharmacy [facility] Hem/Onc [address] [place] [address] 06/22/2023 Office Visit Cardiology Leda Myers PA-C [address] [place] [address] 07/03/2023 Hem/Onc Treatment Hematology Oncology A, Infusion Chair [address] [place], [place] [address] 07/03/2023 Appointment Radiology 07/03/2023 Office Visit Vascular Surgery Robin Burleson MD [address] [place] [address] 07/10/2023 Office Visit Family Medicine Savanah Geiger, [address] [place] [address] Scheduled Procedures Name Priority Associated Diagnoses Date/Ti [...] Additional history exists CKD PHOS USE SMARTSET 41524 2024 02/13/2023, 0 02/11/2021 O2 ASSESSMENT COMPLETED IN PAST YEAR FOR COPD 03/01/2024 03/01/2023 CKD HGB USE SMARTSET 65131 03/14/202403/14, 03/14/2023, 02/28/2023, Additional history exists LUNG CANCER SCREENING - USE SMARTSET 05990 Completed 03/14/2022, 06/03/2020, 05/27/2020, Additional history exists [...] filedocumented as of this encounter Care Teams Plant Electrician Relationship Specialty Start Date End Date Savanah Geiger, [address] [place] [address] PCP - General Family Medicine 04/11/12 documented as of this encounter
--- OUTSIDE RECORDS SUMMARY | 2023-08-22 17:31 | External Medical Summary | Summary of Care ---
Author Name Unknown Organization [facility] Address [address] [place] [address] Phone [phone] Care Team Providers Care Metal Bonding Helper Name Role Phone Savanah Geiger DO Primary Care Provider [phone] Reason for Visit * Reason Onset Date Comments Advice 03/23/2023 Encounter Details Date Type Department Care Team Description 03/23/2023 Telephone Hematology/Oncology [facility] [address] [place] [address] Services, Scheduling [address] [place] [address] Advice Allergies Active Allergy Reactions Severity Noted [...] MG Sublingual Tablet Sublingual (Nitrostat)Indicati ons:Atherosclerosis of [place] coronary artery of [place] heart without angina pectoris One tablet under [...] Bladder cancer 04/24/2020 Coronary artery disease involving [place] heart without angina pectoris 05/22/2019 Old myocardial [...] other coronary artery 05/19/2015 03/20/2017 ST elevation [place] (STEMI) 01/12/2015 09/14/20 18 Myocardial infarction 02/03/2014 [...] Miscellaneous Notes * Telephone Encounter - JOSE Lee - 03/23/2023 8:55 AM EDT Patients calling in has some questions that need answered. Would not provide specifics. documented in this encounter Plan of Treatment Upcoming Encounters Date Type Specialty Care Team Description 03/29/2023 Laboratory Laboratory [place], Lab Scenery [address] [place] [address] 03/29/2023 Office Visit Hematology Oncology Luann De La Cruz MD [address] [place] [address] 03/29/2023 Hem/Onc Treatment Hematology Oncology [place], Chair 4 Hem Onc Scenery [address] [place] [address] 04/20/2023 Scheduled Telephone Pharmacy [facility] Hem/Onc Tech [address] [place] [address] 04/26/2023 Pharmacy Pharmacy [facility] Hem/Onc [address] [place] [address] 06/22/2023 Office Visit Cardiology Leda Myers PA-C [address] [place] [address] 07/03/2023 Hem/Onc Treatment Hematology Oncology A, Infusion Chair [address] [place] [address] 07/03/2023 Appointment Radiology 07/03/2023 Office Visit Vascular Surgery Robin Burleson MD [address] [place] [address] 07/10/2023 Office Visit Family Medicine Savanah Geiger DO [address] [place] [address] Scheduled Procedures Name Priority Associated Diagnoses Date/Ti [...] 10/23/2021 08/28/2021, 02/18/2021, 01/28/2021 GFR 09/13/2023 03/14/2023, 06/02/2023, 02/13/2023, Additional history exists AAA MONITORING; CT OR US YEARLY 12/27/2023 12/26/2022, 03/02/2022, 09/10/2021, Additional history exists AAA ULTRASOUND YEARLY 12/27/2023 12/26/2022 , 03/02/2022, 09/10/2021, Additional history exists CKD PHOS USE SMARTSET 48582 2024 02/13/2023, 0 02/11/2021 O2 ASSESSMENT COMPLETED IN PAST YEAR FOR COPD 03/01/2024 03/01/2023 CKD HGB USE SMARTSET 64946 03/14/202403/14, 03/14/2023, 02/28/2023, Additional history exists LUNG CANCER SCREENING - USE SMARTSET 29824 Completed 03/14/2022, 06/03/2020, 05/27/2020, Additional history exists [...] filedocumented as of this encounter Care Teams Metal Bonding Helper Relationship Specialty Start Date End Date Savanah Geiger, [address] [place] [address] PCP - General Family Medicine 04/11/12 documented as of this encounter
--- OUTSIDE RECORDS SUMMARY | 2023-08-22 17:31 | External Medical Summary ---
Author Name Unknown Address Unknown Organization K01:[facility] [address] [facility] [address] Laboratory Report Ordering Provider Test Date Status MARY ANNE LAGUNA 03/29/2023 08:11:37 Final Observation Date Value Abnormality Reference (Units) Status Protein 08:11:37 6.0 6.0-8.3 (g/dL) Final Albumin/Protein.total [Pure mass fraction] in Serum or Plasma by Electrophoresis 08:11:37 2.91 Below low normal 3.30-4.40 (g/dL) Final Alpha 1 globulin/Protein.tota l [Pure mass fraction] in Serum or Plasma by Electrophoresis 08:11:37 0.35 Above high normal 0.10-0.30 (g/dL) Final Alpha 2 globulin/Protein.tota l [Pure mass fraction] in Serum or Plasma by Electrophoresis 08:11:37 1.21 Above high normal 0.60-1.00 (g/dL) Final Beta globulin/Protein.tota l [Pure mass fraction] in Serum or Plasma by Electrophoresis 08:11:37 0.92 0.80-1.30 (g/dL) Final Gamma globulin/Protein.tota l [Pure mass fraction] in Serum or Plasma by Electrophoresis 08:11:37 0.62 Below low normal 0.70-1.70 (g/dL) Final Protein Fractions [Interpretation] in Serum or Plasma by Electrophoresis Narrative 08:11:37 A paraprotein is present that has been previously identified as a monoclonal IgG lambda. Decreased gamma fraction. Paraprotein concentration is detectable, but less than 0.5 g/dL, unable to be accurately quantified by this method. Final Performing Location [facility] [address] [facility] [address]
--- OUTSIDE RECORDS SUMMARY | 2023-08-22 17:31 | External Medical Summary | Summary of Care ---
Author Name Unknown Organization [facility] Address [address] [place] [address] Phone [phone] Care Team Providers Care Embedded Software Manager Name Role Phone Savanah Geiger DO Primary Care Provider Reason for Visit * Reason Comments eRx-Medication Refill Encounter Details Date Type Department Care Team Description 03/26/2023 Refill [facility] [place] 200 [facility] [place] [address] Luz Elena North MD 200 [place] [address] Multiple myeloma not having achieved remission (HCC) Allergies Active Allergy Reactions Severity Noted Date Comments Calcium Carb-Cholecalciferol 016 documented as of this encounter (statuses as of 03/27/2023) Medications Medication Sig Dispensed Refills Start Date [...] 02/05/2023 Active Lenalidomide 10 MG Oral Capsule (Revlimid)Indica tions:Multiple myeloma not having achieved remission (HCC) TAKE 1 CAPSULE BY MOUTH EVERY MORNING FOR 14 DAYS ON AND 7 DAYS OFF 14 Capsule 0 03/13/2023 Active Nitroglycerin 0.4 MG Sublingual Tablet Sublingual (Nitrostat)Indic ations:Atheroscl erosis of [place] coronary artery of [place] heart without angina pectoris One tablet under tongue if needed for chest pain. May repeat 3 times. If chest pain continues, call [phone] Tablet 3 03/20/2023 Active Acyclovir 400 MG Oral Tablet (Zovirax)Indicat ions:Multiple myeloma not having achieved remission (HCC) TAKE 1 TABLET BY MOUTH EVERY DAY IN THE MORNING AND BEFORE BEDTIME 180 Tablet 3 03/27/2023 Active Acyclovir 400 MG Oral Tablet (Zovirax) TAKE 1 TABLET BY MOUTH EVERY DAY IN THE MORNING AND BEFORE BEDTIME 0 12/29/2022 3 Discontinued documented as of this encounter (statuses as of 03/27/2023) Active Problems Problem Noted Date Dyslipidemia 03/29/2022 [...] Bladder cancer 04/24/2020 Coronary artery disease involving [place] heart without angina pectoris 05/22/2019 Old myocardial infarct 12/06/2018 S/p bare metal coronary artery stent Tobacco use disorder 04/16/2012 HTN, goal below 130/80 2012 GERD (gastroesophageal reflux disease) 0 2012 documented as of this encounter (statuses as of 03/27/2023) Resolved Problems Problem Noted Date Resolved Date [...] as of this encounter (statuses as of 03/27/2023) Immunizations Name Administration Dates Next Due COVID-19 mRNA, LNP-s, No Pre serve, 2-Dose Series ([employer] 08/28/2021,02/18/2021,01/28/2021 Pneumococcal Conjugate Vacc, 13 Valent (Prevnar) [...] encounter Miscellaneous Notes * Telephone Encounter - Sarah Rivera RN - 03/27/2023 8:56 AM EDTSigned Prescriptions: Disp Refills Acyclovir 400 MG Oral Tablet (Zovirax) 180 Ta*3 Sig: TAKE 1 TABLET BY MOUTH EVERY DAY IN THE MORNING AND BEFORE BEDTIMEAuthorizing Provider: LUZ ELENA NORTH-- * Telephone Encounter - Sarah Rivera RN - 03/27/2023 8:36 AM EDTPending Prescriptions: Disp Refills Acyclovir 400 MG Oral Tablet [Pharmacy Med*180 Ta*3 Sig: TAKE 1 TABLET BY MOUTH EVERY DAY IN THE MORNING AND BEFORE BEDTIME documented in this encounter Plan of Treatment Upcoming Encounters Date Type Specialty Care Team Description 03/29/2023 Laboratory Laboratory [facility] 200 [facility] [place] [address] 03/29/2023 Office Visit Hematology Oncology Luz Elena North MD 200 Sharlene Mathew [place] [address] 03/29/2023 Hem/Onc Treatment Hematology Oncology Tresa, Chair 4 Hem Onc C[place] 200 [address] [place] [address] 04/20/2023 Scheduled Telephone Pharmacy Magan Benjamin Hem/Onc Tech [address] [place] [address] 04/26/2023 Pharmacy Pharmacy [facility] Hem/Onc [address] [place] [address] 06/22/2023 Office Visit Cardiology Leda Myers PA-C [address] [place] [address] 07/03/2023 Hem/Onc Treatment Hematology Oncology A, Infusion Chair [address] [place] [address] 07/03/2023 Appointment Radiology 07/03/2023 Office Visit Vascular Surgery Robin Burleson MD [address] [place] [address] 07/10/2023 Office Visit Family Medicine Savanah Geiger, [address] [place], [place] [id number] Scheduled Procedures Name Priority Associated Diagnoses Date/Ti [...] for Pfizer series) 10/23/2021 08/28/2021, 02/18/2021, 01/28/2021 Influenza Vaccine (FLU shot) (#1) 2023 06/23/2022, 07/12/2021, 07/09/2020, Additional history exists GFR 09/13/2023 03/14/2023, 06/0 02/2023, 02/13/2023, Additional history exists AAA MONITORING; CT OR US YEARLY 12/27/2023 12/26/2022, 03/02/2022, 09/10/2021, Additional history exists AAA ULTRASOUND YEARLY 12/27/2023 12/26/2022 , 03/02/2022, 09/10/2021, Additional history exists CKD PHOS USE SMARTSET 10681 2024 02/13/2023, 0 02/11/2021 O2 ASSESSMENT COMPLETED IN PAST YEAR FOR COPD 03/01/2024 03/01/2023 CKD HGB USE SMARTSET 65499 03/14/202403/14, 03/14/2023, 02/28/2023, Additional history exists LUNG CANCER SCREENING - USE SMARTSET 75975 Completed 03/14/2022, 06/03/2020, 05/27/2020, Additional history exists [...] remission documented in this encounter Care Teams Embedded Software Manager Relationship Specialty Start Date End Date Savanah Geiger, [address] [place] [address] PCP - General Family Medicine 04/11/12 documented as of this encounter
--- OUTSIDE RECORDS SUMMARY | 2023-08-22 17:31 | External Medical Summary | Summary of Care ---
Author Name Unknown Organization [facility] Address [address] [place] [address] Phone [phone] Care Team Providers Care Fire Equipment Repairer Inspector Name Role Phone Savanah Geiger DO Primary Care Provider + [phone] Reason for Visit * Reason Comments Chemotherapy Velcade * Episode Based Medications (Routine) - Authorized Specialty Diagnoses / Procedures Referred By Contnataliia t Referred To Contact Diagnoses Multiple myeloma not having achieved remission (HCC) Procedures ME INJ., VELCADE 0.1 MG Luann De La Cruz MD [address] [place] [address] Anc Hem/Onc Scenery Tresa [address] [place] [address] Referral ID Status Reason Start Date Expiration Date V isits Requested Visits Authorized [id number] Authorized 02/22/2022 09/24/2099 99 99 Encounter Details Date Type Department Care Team Description 03/29/2023 Hem/Onc Treatment Hematology/Oncology Treatment, [place] [address] [place] [address] Tresa, Chair 4 Hem Onc Scenery [address] [place] [address] Multiple myeloma not having achieved remission (HCC)*; Encounter for antineoplastic chemotherapy Allergies Active Allergy Reactions Severity Noted Date Comments Calcium Carb-Cholecalciferol 016 documented as of this encounter (statuses as of 03/29/2023) Medications Medication Sig Dispensed Refills Start Date [...] Tablet Sublingual (Nitrostat)Indicati ons:Atherosclerosis of [place] coronary artery of [place] heart without angina pectoris One tablet under [...] as of this encounter (statuses as of 03/29/2023) Active Problems Problem Noted Date Dyslipidemia 03/29/2022 [...] 04/24/2020 Coronary artery disease involving [place] heart without angina pectoris 05/22/2019 Old myocardial infarct 12/06/2018 S/p bare metal coronary artery stent Tobacco use disorder 04/16/2012 HTN, goal below 130/80 2012 GERD (gastroesophageal reflux disease) 0 2012 documented as of this encounter (statuses as of 03/29/2023) Resolved Problems Problem Noted Date Resolved Date [...] as of this encounter (statuses as of 03/29/2023) Immunizations Name Administration Dates Next Due COVID-19 [...] Nursing Notes * Evonne Lundberg RN - 03/29/2023 4:23 PM EDT Chair 2. Patient saw Dr. De La Cruz today -- see office visit note for details. Patient is feeling well upon assessment today without any acute issues or complaints in regards to injections. Functional status at today's visit: Fully active, [...] Specialty Care Team Description 04/11/2023 Laboratory Laboratory [place], Laboratory [address] [place] [address] 04/12/2023 Hem/Onc Treatment Hematology Oncology [place], Chair 4 Hem Onc Scenery [address] [place] [address] 04/20/2023 Scheduled Telephone Pharmacy [facility] Hem/Onc Tech [address] [facility] [place], [place] [id number] 04/25/2023 Laboratory Laboratory [place], Laboratory [address] [place] [address] 04/26/2023 Pharmacy [facility] Hem/Onc [address] [place] [address] 04/26/2023 Hem/Onc Treatment Hematology Oncology [place], Chair 8 Hem Onc Scenery [address] [place] [address] 05/10/2023 Laboratory Laboratory [place], Lab Scenery [address] [place] [address] 05/10/2023 Office Visit Hematology Oncology Luann De La Cruz MD [address] [place] [address] 05/10/2023 Hem/Onc Treatment Hematology Oncology 06/22/2023 Office Visit Cardiology Leda Myers PA-C [address] [place] [address] 07/03/2023 Hem/Onc Treatment Hematology Oncology A, Infusion Chair [address] [place] [address] 07/03/2023 Appointment Radiology 07/03/2023 Office Visit Vascular Surgery Robin Burleson MD [address] [place] [address] 07/10/2023 Office Visit Family Medicine Savanah Geiger, DO [address] [place] [address] Scheduled Procedures Name Priority Associated Diagnoses Date/Ti [...] Additional history exists CKD PHOS USE SMARTSET 02828 2024 02/13/2023, 0 02/11/2021 O2 ASSESSMENT COMPLETED IN PAST YEAR FOR COPD 03/01/2024 03/29/2023 CKD HGB USE SMARTSET 16126 03/29/202403/29, 03/29/2023, 03/14/2023, Additional history exists LUNG CANCER SCREENING - USE SMARTSET 72893 Completed 03/14/2022, 06/03/2020, 05/27/2020, Additional history exists [...] BSA from Recorded weight), Subcutaneous, ONCE, On Mon03/29/23 at 1145, For 1 dose, Caution chemotherapy: Handle with gloves Given 03/29/2023 10:19 AM EDT 2.5 mg Abdomen Left Lower documented in this encounter Care Teams Fire Equipment Repairer Inspector Relationship Specialty Start Date End Date Savanah Geiger, DO [address] [place] [address] PCP - General Family Medicine 04/11/12 documented as of this encounter
--- OUTSIDE RECORDS SUMMARY | 2023-08-22 17:31 | External Medical Summary | Summary of Care ---
Author Name Unknown Organization [facility] Address [address] [place] [address] Phone [phone] Care Team Providers Care Mental Retardation Aide Name Role Phone Savanah Geiger DO Primary Care Provider Reason for Visit * Reason Comments eRx-Medication Refill Encounter Details Date Type Department Care Team Description 03/30/2023 Refill Hematology/Oncology Treatment, [place] [address] [place] [phone] Luann De La Cruz MD [address] [place] [address] Multiple myeloma not having achieved remission (HCC) [...] Sublingual Tablet Sublingual (Nitrostat)Indic ations:Atheroscl erosis of [place] coronary artery of [place] heart without angina pectoris One tablet [...] DAYS OFF 14 Capsule 0 04/07/2023 Active Lenalidomide 10 MG Oral Capsule (Revlimid)Indica [...] Bladder cancer 04/24/2020 Coronary artery disease involving [place] heart without angina pectoris 05/22/2019 Old [...] mRNA, LNP-s, No Pre serve, 2-Dose Series ([employer]) 08/28/2021,02/18/2021,01/28/2021 Pneumococcal Conjugate Vacc, 13 Valent (Prevnar) [...] Telephone Encounter - Sarahy Rodriges RN - 04/07/2023 4:28 PM EDT Per MT note: "Treatment: Medication:Lenalidomide (Revlimid) Indication:multiple myeloma Dose:10mg daily D1-14 every 21 days" Prescriber survey complete, auth # [id number] * Telephone Encounter - Interface, E-Rx Ss Inbound - 04/06/2023 10:00 PM EDT Pending Prescriptions: Disp Refills Lenalidomide 10 MG Oral Capsule (Revlimid)* 0 Sig: TAKE 1 CAPSULE BY MOUTH 1 TIME A DAY FOR 14 DAYS ON THEN 7 DAYS OFF documented in this encounter Plan of Treatment Upcoming Encounters Date Type Specialty Care Team Description 04/11/2023 Laboratory Laboratory [place], Laboratory [address] [place] [address] 04/12/2023 Hem/Onc Treatment Hematology Oncology [place], Chair 4 Hem Onc [facility] [address] [place] [address] 04/20/2023 Scheduled Telephone Pharmacy [facility] Hem/Onc Tech [address] [place] [address] 04/25/2023 Laboratory Laboratory [place], Laboratory [address] [place] [address] 04/26/2023 Pharmacy Pharmacy [facility] Hem/Onc [address] [place] [address] 04/26/2023 Hem/Onc Treatment Hematology Oncology [place], Chair 8 Hem Onc Scenery [address] [place] [address] 05/10/2023 Laboratory Laboratory [place], Lab Scenery [address] [place] [address] 05/10/2023 Office Visit Hematology Oncology Luann De La Cruz MD [address] [place] [address] 05/10/2023 Hem/Onc Treatment Hematology Oncology 06/22/2023 Office Visit Cardiology Leda Myers PA-C [address] [place] [address] 07/03/2023 Hem/Onc Treatment Hematology Oncology A, Infusion Chair [address] [place] [address] 07/03/2023 Appointment Radiology 07/03/2023 Office Visit Vascular Surgery Robin Burleson MD [address] [place] [address] 07/10/2023 Office Visit Family Medicine Savanah Geiger, DO [address] [place] [address] Scheduled Procedures Name Priority Associated Diagnoses Date/Ti [...] Additional history exists CKD PHOS USE SMARTSET 68961 2024 02/13/2023, 0 02/11/2021 CKD HGB USE SMARTSET 94365 03/29/202403/29, 03/29/2023, 03/14/2023, Additional history exists O2 ASSESSMENT COMPLETED IN PAST YEAR FOR COPD 03/29/2024 03/29/2023 LUNG CANCER SCREENING - USE SMARTSET 55476 Completed 03/14/2022, 06/03/2020, 05/27/2020, Additional history exists [...] remission documented in this encounter Care Teams Mental Retardation Aide Relationship Specialty Start Date End Date Savanah Geiger, DO [address] [place] [address] PCP - General Family Medicine 04/11/12 documented as of this encounter
--- OUTSIDE RECORDS SUMMARY | 2023-08-22 17:31 | External Medical Summary | Summary of Care ---
Author Name Unknown Organization [facility] Address [address] [place] [address] Phone [phone] Care Team Providers Care State Archivist Name Role Phone GriffinreedSavanah DO Primary Care Provider [phone] Reason for Visit * Reason Comments Outpatient Testing Encounter Details Date Type Department Care Team Description 03/29/2023 Laboratory Laboratory [facility] [place] [address] [place] [address] [facility] 200 [facility] [place] [address] Multiple myeloma (HCC); Multiple myeloma not having [...] MG Sublingual Tablet Sublingual (Nitrostat)Indicati ons:Atherosclerosis of [place] coronary artery of [place] heart without angina pectoris One tablet under [...] Bladder cancer 04/24/2020 Coronary artery disease involving [place] heart without angina pectoris 05/22/2019 Old myocardial [...] Date Type Specialty Care Team Description 03/29/2023 Office Visit Hematology Oncology [place], Luann Carroll MD [address] [place] [address] Arrived 03/29/2023 Hem/Onc Treatment Hematology Oncology [place], Chair 4 Hem Onc Scenery [address] [place] [address] Arrived 04/20/2023 Scheduled Telephone Pharmacy [facility] Hem/Onc Tech [address] [place] [address] 04/26/2023 Pharmacy Pharmacy [facility] Hem/Onc [address] [place] [address] 06/22/2023 Office Visit Cardiology Leda Myers PA-C [address] [place] [address] 07/03/2023 Hem/Onc Treatment Hematology Oncology A, Infusion Chair [address] [place] [address] 07/03/2023 Appointment Radiology 07/03/2023 Office Visit Vascular Surgery Robin Burleson MD [address] [place] [address] 07/10/2023 Office Visit Family Medicine Savanah Geiger, DO [address] [place] [address] Pending Results Name Type Priority Associated Diagnoses Date /Time IMMUNOGLOBULIN QUANTITATIVE Lab STAT Multiple myeloma ([facility]) 03/29/2023 8:11 AM EDT SERUM PROTEIN ELECTROPHORESIS REFLEX PROFILE Lab STAT Multiple myeloma ([facility]) 03/29/2023 8:11 AM EDT SERUM FREE LIGHT CHAINS Lab STAT Multiple myeloma ([facility]) 03/29/2023 8:11 AM EDT COMPREHENSIVE METABOLIC PANEL Lab Routine Multiple myeloma not having achieved remission ([facility]) 03/29/2023 8:11 AM EDT Scheduled Procedures Name Priority Associated Diagnoses Date/Ti me COLONOSCOPY FLEXIBLE PROXIMAL DIAGNOSTIC Recall History of colon polyps Health Maintenance Due Date Last Done Comments Albumin/Creatinine Ratio 02/13/1970 Alpha-1 Antitrypsin 02/13/1970 Hepatitis C Screening 02/13/1970 DTaP,Tdap,and Td Vaccines (1 - Tdap) 02/13/1971 Zoster Vaccines (1 of 2) 02/13/1971 DISCUSS TOBACCO CESSATION (REFER TO SMARTSET #0401) 07/12/2018 07/12/2017 (Course Completed) COLONOSCOPY-EVERY 3 YRS AGES 18-100 05/23/2020 05/23/2017 Depression Screening, Annual for Pts 12 and Over 07/30/2021 07/30/2020, 07/12/2017 (Declined) COVID-19 Vaccine (4 - Booster for Pfizer series) 10/23/2021 08/28/2021, 02/18/2021, 01/28/2021 Influenza Vaccine (FLU shot) (#1) 2023 06/23/2022, 07/12/2021, 07/09/2020, Additional history exists GFR 09/13/2023 03/14/2023, 02/2023, 02/13/2023, Additional history exists AAA MONITORING; CT OR US YEARLY 12/27/2023 12/26/2022, 03/02/2022, 09/10/2021, Additional history exists AAA ULTRASOUND YEARLY 12/27/2023 12/26/2022 , 03/02/2022, 09/10/2021, Additional history exists CKD PHOS USE SMARTSET 52515 2024 02/13/2023, 0 02/11/2021 O2 ASSESSMENT COMPLETED IN PAST YEAR FOR COPD 03/01/2024 03/01/2023 CKD HGB USE SMARTSET 45570 03/14/202403/29, 03/29/2023, 03/14/2023, Additional history exists LUNG CANCER SCREENING - USE SMARTSET 51210 Completed 03/14/2022, 06/03/2020, 05/27/2020, Additional history exists [...] Not on filedocumented as of this encounter Procedures Procedure Name Priority Date/Time Associated Diagnosis Comments DIFFERENTIAL, AUTOMATED Routine 03/29/2023 8:11 AM EDT Multiple myeloma not having achieved remission (HCC) CBC WITH WBC DIFFERENTIAL Routine 03/29/2023 8:11 AM EDT Multiple myeloma not having achieved remission (HCC) CBC Routine 03/29/2023 8:11 AM EDT Multiple myeloma not having achieved remission (HCC) documented in this encounter Results * (ABNORMAL) DIFFERENTIAL, AUTOMATED (03/29/2023 8:11 AM EDT) WBC 10.00 4.00 - 10.80 K/uL 03/29/2023 8:20 AM EDT [facility] [place] 56-02 Neutrophils % 71.8 40.0 - 75.0 % 03/29/2023 8:20 AM EDT [facility] [place] 56-02 Lymphocytes % 9.8(L) 18.0 - 42.0 % 03/29/2023 8:20 AM EDT LAB[facility]ATORY [facility] 56-02 Monocytes % 15.4(H) 1.0 - 11.0 % 03/29/2023 8:20 AM EDT LABORATORY [facility] [place] 56-02 Eosinophils % 2.5 0.0 - 6.0 % 03/29/2023 8:20 AM EDT LAB[facility]ATORY [facility] [place] 56-02 Basophils % 0.5 0.0 - 2.0 % 03/29/2023 8:20 AM EDT LAB[facility]ATORY [facility] 56-02 Absolute Neutrophils 7.18 1.80 - 7.70 K/uL 03/29/2023 8:20 AM EDT LABORATORY [facility] [place] 56-02 Absolute Lymphocytes 0.98(L) 1.00 - 4.80 K/ul 03/29/2023 8:20 AM EDT LAB[facility] [place] 56-02 Absolute Monocytes 1.54(H) 0.00 - 1.10 K/uL 03/29/2023 8:20 AM EDT [facility] [place] 56-02 Absolute Eosinophils 0.25 0.00 - 0.70 K/uL 03/29/2023 8:20 AM EDT [facility] [place] 56-02 Absolute Basophils 0.05 0.00 - 0.20 K/uL 03/29/2023 8:20 AM EDT [facility] 56 Blood Venous blood specimen / Unknown Venipuncture / Unknown 03/29/2023 8:11 AM EDT 03/29/2023 8:12 AM EDT Luann De La Cruz MD LAB BLOOD [facility] [address] [place] [address] * (ABNORMAL) CBC (03/29/2023 8:11 AM EDT) WBC 10.00 4.00 - 10.80 K/uL 03/29/2023 8:20 AM EDT [address] RBC 3.53 4.50 - 5.25 M/uL 03/29/2023 8:20 AM EDT [place] [address] HGB 11.5(L) 14.0 - 16.8 g/dL 03/29/2023 8:20 AM EDT [address] HCT 35.4(L) 40.0 - 48.4 % 03/29/2023 8:20 AM EDT [address] MCV 100.3 82.0 - 99.5 fL 03/29/2023 8:20 AM EDT [address] MCH 32.6 27.0 - 34.0 pg 03/29/2023 8:20 AM EDT [address] MCHC 32.5 32.0 - 36.0 g/dL 03/29/2023 8:20 AM EDT [address] RDW 17.6 11.5 - 15.5 % 03/29/2023 8:20 AM EDT [facility] 56 PLT 232 140 - 400 K/uL 03/29/2023 8:20 AM EDT [facility] 56 MPV 10.3 6.6 - 11.1 fL 03/29/2023 8:20 AM EDT [facility] 56 Blood Venous blood specimen / Unknown Venipuncture / Unknown 03/29/2023 8:11 AM EDT 03/29/2023 8:12 AM EDT Luann De La Cruz MD LAB BLOOD ORDERA BL[facility] [place] 56-02 [address] [place] [address] documented in this encounter Visit Diagnoses Diagnosis Multiple myeloma not having achieved remission (HCC) Multiple myeloma, without mention of having achieved remission documented in this encounter Care Teams State Archivist Relationship Specialty Start Date End Date Savanah Geiger, [address] [place] [address] PCP - General Family Medicine 04/11/12 documented as of this encounter
--- OUTSIDE RECORDS SUMMARY | 2023-08-22 17:31 | External Medical Summary | Summary of Care ---
Author Name Unknown Organization [facility] Address [address] [place] [address] Phone [phone] Care Team Providers Care International Operations Manager Name Role Phone GriffinSavanah mcbride Oswaldo JIMÉNEZ Primary Care Provider Reason for Visit * Reason Comments Chemotherapy Encounter Details Date Type Department Care Team Description 03/29/2023 Office Visit Hematology/Oncology Sharlene [facility] [place] [address] [facility] [place] [address] Luann De La Cruz MD [address] [facility] [place] [address] Multiple myeloma in remission (HCC)* Allergies Active [...] MG Sublingual Tablet Sublingual (Nitrostat)Indicati ons:Atherosclerosis of qawalangin coronary artery of qawalangin heart without angina pectoris One tablet under [...] Bladder cancer 04/24/2020 Coronary artery disease involving qawalangin heart without angina pectoris 05/22/2019 Old myocardial [...] other coronary artery 05/19/2015 03/20/2017 ST elevation PR (STEMI) 01/12/2015 09/14/20 18 Myocardial infarction 02/03/2014 [...] Sign Reading Time Taken Comments Blood Pressure 111/75 03/29/2023 9:23 AM EDT Pulse 77 03/29/2023 9:23 AM EDT Temperature 36.8 C (98.2 F) 03/29/2023 9:23 AM ED T Respiratory Rate 16 03/29/2023 9:23 AM EDT Oxygen Saturation 96% 03/29/2023 9:23 AM EDT Inhaled Oxygen Concentration - - Weight 74.5 kg (164 lb 4.8 oz) 03/29/2023 9:23 A M EDT Height - - Body Mass Index 26.52 01/05/2023 8:34 AM EDT documented in this encounter Progress Notes * Luann De La Cruz MD - 03/29/2023 9:32 AM EDT Outpatient Consult Note Data Source: Patient, Epic record. Data Source: Patient, Epic record. 03/29/2023 9:32 AM Brian Salinas [id number] 73 year old Patient Encounter: HEMATOLOGY/ONCOLOGY [facility] Cancer Diagnosis: -multiple myeloma,IgG lambdaR-ISS Staging: III -bladder tumor. 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 Since that time chemo was on hold because of recurrent episode of C diff and infection. - Restarted on VRD chemotherapyand received 1st cycle on 04/01/2022 for relapse disease. Received last dose on 07/01/2022 and refused to continue. -Patient is following urologist for bladder tumorand was treated with BCG instillation Oncologic History : 72-year-old male with history of multiple medical problem including coronary artery disease, hypertension, COPD, dyslipidemia.Patient history significant for alcohol abuse. He quit drinking about 15 years ago. He has history of chronic coronary artery disease with known total right coronary artery occlusion and bare metal stentingin01/2015.Recently he presented with complaint of intermittent gross hematuria since June 2019 with occasional left side back pain. 2 months ago, grosshematuria noted to be more consistent with clot passage. No fever, no chills, no unusual abdominal discomfort. On 04/17/[address] urography done which showsLarge bladder mass. Pathologic destructive lesion the left 10th posterior rib. 5 cm infrarenal abdominal aortic aneurysm as described above. Recommend vascular surgery consultation. Right lower lobe pneumonia. Indeterminate enhancement of the rectum. On 04/27/2020Cystoscopy with meatal dilation and Clot Evacuation and fulguration of prostatic varicosity with Transurethral Resection Bladder Tumor, large. - Bo Garcia DO.Extremely large bleeding tumors of the dome, anterior, and right lateral side of the bladder. Approx 12 cm of tumor filling a majority of the volume of the bladder.largest tumor on the right wall was targeted and the entire tumor was assessed. The tumor was resected. Deep resection specimens were sent separately. The bulk of the tumor was removed and [...] beds were fulgurated and all bleeding was controlled.Pathology was consistent with a high-grade papillary urothelial [...] diagnosis. The block is being sent o [facility] for ancillary studies and the testing report will follow Patient had CT scan of the chest done yesterday without contrast and showsMultifocal consolidation right lower lobe slightly improved since 05/13/2020, several are somewhat masslike with largest measuring 2.8 cm. Bony metastases left posterior 10th rib, left posterolateral 9th rib, right posterola teral 7th rib, and tip of the right scapula. Patient denies any headache, dizziness, blurred vision, chest pain palpitation, abdominal pain or distention bruising. He is eating better and has more energy level. Hequitsmokingin March 2020. He used to smoke1 pack per day for over 50 years. Admits to occasional marijuana use. Family history is negative for hematology Oncology problem Dr. 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 IgGlevel is 5893 and serum lambda was 721. 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 - Dysplasia and carcinoma arenot seen. Patient is following Dr. Harris's for bladder cancer. He had last cystoscopy done on 12/08/2021.He continued receiving 3 weeks BCG every 6 months Interval History: Overall clinically he is doing well without any new symptoms complain. He is tolerating treatment very well. He had couple of episodes of diarrhea. Patient denies any headache, dizziness, blurred vision, chest pain, shortness breath palpitation abdominal pain or distention, bleeding, bruising, nausea, vomiting, fever, night sweats, weight loss, hematuria, hematochezia. Recent cystoscopy was done on 03/21/2023 and was negative for recurrence or any mass lesions LABS/IMAGING: Results for orders placed or performed in visit on 03/29/23 COMPREHENSIVE METABOLIC PANEL Result Value Ref Range BUN 27 (H) 6 - 20 mg/dL Creatinine 1.4 (H) 0.6 - 1.2 mg/dL Estimated Glomerular Filtration Rate 52 (L) >=60 mL/min Sodium 135 135 - 146 mmol/L Potassium 4.0 3.5 - 5.1 mmol/L Chloride 102 98 - 107 mmol/L CO2 22 22 - 32 mmol/L Anion Gap 11 7 - 15 mmol/L Glucose 133 (H) 70 - 120 mg/dL Albumin 3.9 3.8 - 5.0 g/dL AST 11 10 - 50 U/L Alkaline Phosphatase 85 35 - 130 U/L Bilirubin, Total 0.6 <=1.2 mg/dL Calcium 9.0 8.4 - 10.2 mg/dL Protein 7.0 6.0 - 8.3 g/dL ALT 16 10 - 50 U/L CBC Result Value Ref Range WBC 10.00 4.00 - 10.80 K/uL RBC 3.53 4.50 - 5.25 M/uL HGB 11.5 (L) 14.0 - 16.8 g/dL HCT 35.4 (L) 40.0 - 48.4 % MCV 100.3 82.0 - 99.5 fL MCH 32.6 27.0 - 34.0 pg MCHC 32.5 32.0 - 36.0 g/dL RDW 17.6 11.5 - 15.5 % PLT 232 140 - 400 K/uL MPV 10.3 6.6 - 11.1 fL DIFFERENTIAL, AUTOMATED Result Value Ref Range WBC 10.00 4.00 - 10.80 K/uL Neutrophils % 71.8 40.0 - 75.0 % Lymphocytes % 9.8 (L) 18.0 - 42.0 % Monocytes % 15.4 (H) 1.0 - 11.0 % Eosinophils % 2.5 0.0 - 6.0 % Basophils % 0.5 0.0 - 2.0 % Absolute Neutrophils 7.18 1.80 - 7.70 K/uL Absolute Lymphocytes 0.98 (L) 1.00 - 4.80 K/ul Absolute Monocytes 1.54 (H) 0.00 - 1.10 K/uL Absolute Eosinophils 0.25 0.00 - 0.70 K/uL Absolute Basophils 0.05 0.00 - 0.20 K/uL *Note: Due to a large number of results and/or encounters for the requested time period, some results have not been displayed. A complete set of results can be found in Results Review. All his blood counts are in acceptable range with normalization of lambda free light chain and IgG level. REVIEW OF SYSTEMS: General: No Fever, chills, [...] (Temovate) Apply topically to affected area 2 timesa day. To affected area for up to [...] as needed for Nausea. 30 Tablet 2 Atorvastatin Calcium 80 MG Oral Tablet (Lipitor) TAKE 1 TABLET BY MOUTH EVERY DAY 90 Tablet 3 Metoprolol Tartrate 50 MG Oral Tablet (Lopressor) Take 1 Tablet (50 mg) by mouth in the morningand 1 Tablet (50 mg) before bedtime. 180 Tablet 5 [facility] Calcium Citrate+D3 Petites 200-6.25 MG-MCG Oral Tablet (Calcium Citrate- Vitamin D) Take 1 Tablet by mouth in the morning. 90 Tablet 1 Famotidine 20 MG Oral Tablet (Pepcid) TAKE 1 TABLET BY MOUTH TWICE A DAY 180 Tablet 1 Probiotic Acidophilus Oral Capsule Take by mouth daily. Dexamethasone 4 MG Oral Tablet (Decadron) Take 40mg (10 tablets) once a week 40 Tablet 5 traMADol HCl 50 MG Oral Tablet (Ultram) Take 1 Tablet by mouth every 6 hours as needed for Pain, Moderate. 30 Tablet 0 Mirtazapine 15 MG Oral Tablet (Remeron) TAKE 1 TAB BY MOUTH AT BEDTIME. TO HELP WITH APPETITE, AND MOOD. 90 Tablet 0 Lenalidomide 10 MG Oral Capsule (Revlimid) TAKE 1 CAPSULE BY MOUTH EVERY MORNING FOR 14 DAYS ONAND 7 DAYS OFF 14 Capsule 0 Nitroglycerin 0.4 MG Sublingual Tablet Sublingual (Nitrostat) One tablet under tongue if neededfor chest pain. May repeat 3 times. If [...] Last attempt to quit: 04/16/2020 Years since quittin.9 Passive exposure: Current Smokeless tobacco: Never Vaping Use Vaping Use: Never used Substance Use Topics Alcohol use: No Comment: chronic alcoholic, sober for years now Drug use: Yes Types: Marijuana Comment: 2 times a day Review of patient's allergies indicates: Allergen Reactions Calcium Carb-Cholecalciferol PHYSICAL EXAMINATION: General Appearance: Healthy appearing patient in no acute distress BP 111/75 (BP Site: Left Arm, BP Position: Sitting, BP Cuff Size: Regular) | Pulse 77 | Temp 36.8 C (98.2 F) (Tympanic) | Resp 16 | Wt 74.5 kg (164 lb 4.8 oz) | SpO2 96% | BMI 26.52 kg/m | BSA 1.86 m Vitals reviewed. HEENT: No oral or [...] ASSESSMENT: 73-year-old presented with hematuria and was foundtohave tumor involving the bladder. He had TURBT and histopathology is consistent with high-grade papillary urothelial carcinoma with no definite invasion. He alsohadlesion on the 10th rib and biopsyof thiswas done and pathologywasconsistent with a plasmacytoma. Blood work is consistent with IgG lambda multiple myeloma.bone marrow biopsy also positive for myeloma with Plasma cell myeloma (60-80% of marrow cellularity).Patient also has a he low hemoglobin and bone disease and high creatinine with normal calcium. Beta 2 microglobulin was8.7 which is high. Patient was start treatment on VRD with excellent response and normalization of IgG level. Received last treatment in 01/2021 and treatment wason hold because of frequent infection and C diff andwas treated with prolonged antibiotics.While the chemo was on hold there was a rising level of the immunoglobulin. PET scan was negative for any new disease and the stool was negative for C diff. Patient was restarted VRD chemotherapy on 04/01/2022fter on hold for more than a year. He hadgood response to chemotherapy with normalization of IgG level and kappa light chain.He received last dose on 07/01/2022 and then refused to continue. Again there was a rising level of lambda light chain and IgG level. Treatment was resumed on 12/06/2022. Overall clinically he is doing well without any new significant side effects toxicity or new symptoms. His blood counts are in acceptable with normalization of IgG level and light chain. Discussed with the patient about diagnosis and reviewed all the available blood test result with him. For now will continue his current treatment. PLAN: Continue current treatment. He will return [...] this encounter Nursing Notes * Wanda Silva, [facility] - 03/29/2023 9:24 AM EDT Patient identifed by name and [...] it for you? ALREADY ACTIVE Filed Vitals: 03/29/23922 BP: 111/75 Pulse: 77 Resp: 16 Temp: 36.8 C (98.2 F) TempSrc: Tympanic SpO2: 96% Weight: 74.5 kg (164 lb 4.8 oz) [...] Date Type Specialty Care Team Description 03/29/2023 Hem/Onc Treatment Hematology Oncology [place], Chair [address] Hem Onc Scenery [address] [place] [address] Multiple myeloma not having achieved remission (HCC)* 04/20/2023 Scheduled Telephone Pharmacy [facility] Hem/Onc Tech [address] [place] [address] 04/26/2023 Pharmacy Pharmacy [facility] Hem/Onc [address] [place] [address] 06/22/2023 Office Visit Cardiology Leda Myers PA-C [address] [place] [phone] 07/03/2023 Hem/Onc Treatment Hematology Oncology A, Infusion Chair [address] [place] [address] 07/03/2023 Appointment Radiology 07/03/2023 Office Visit Vascular Surgery Robin Burleson MD [address] [place] [address] 07/10/2023 Office Visit Family Medicine Savanah Geiger DO [address] [place] [id number] Scheduled Orders Name Type Priority Associated Diagnoses Orde r Schedule CBC WITH WBC DIFFERENTIAL Lab Routine Multiple myeloma in remission (HCC) Expected: 05/09/2023, Expires: 10/24/2023 [id number], SERUM Lab Routine Multiple myeloma in remission (HCC) Expected: 05/09/2023, Expires: 10/24/2023 COMPREHENSIVE METABOLIC PANEL Lab Routine Multiple myeloma in remission (HCC) Expected: 05/09/2023, Expires: 10/24/2023 IMMUNOGLOBULIN QUANTITATIVE Lab Routine Multiple myeloma in remission (HCC) Expected: 05/09/2023, Expires: 10/24/2023 SERUM IMMUNOFIXATION Lab Routine Multiple myeloma in remission (HCC) Expected: 05/09/2023, Expires: 10/24/2023 SERUM FREE LIGHT CHAINS Lab Routine Multiple myeloma in remission (HCC) Expected: 05/09/2023, Expires: 10/24/2023 SERUM PROTEIN ELECTROPHORESIS REFLEX PROFILE Lab Routine Multiple myeloma in remission (HCC) Expected: 05/09/2023, Expires: 10/24/2023 Scheduled Procedures Name Priority Associated Diagnoses Date/Ti me COLONOSCOPY FLEXIBLE PROXIMAL DIAGNOSTIC Recall History of colon polyps Health Maintenance Due Date Last Done Comments Albumin/Creatinine Ratio 02/13/1970 Alpha-1 Antitrypsin 02/13/1970 Hepatitis C Screening 02/13/1970 DTaP,Tdap,and Td Vaccines (1 - Tdap) 02/13/1971 Zoster Vaccines (1 of 2) 02/13/1971 DISCUSS TOBACCO CESSATION (REFER TO SMARTSET #0595) 07/12/2018 07/12/2017 (Course Completed) COLONOSCOPY-EVERY 3 YRS [...] Additional history exists CKD PHOS USE SMARTSET 63565 2024 02/13/2023, 0 02/11/2021 O2 ASSESSMENT COMPLETED IN PAST YEAR FOR COPD 03/01/2024 03/01/2023 CKD HGB USE SMARTSET 80601 03/29/202403/29, 03/29/2023, 03/14/2023, Additional history exists LUNG CANCER SCREENING - USE SMARTSET 01059 Completed 03/14/2022, 06/03/2020, 05/27/2020, Additional history exists [...] remission (HCC)- Primary Multiple myeloma in remission Multiple myeloma not having achieved remission (HCC)- Primary Multiple myeloma, without mention of having achieved remission documented in this encounter Care Teams International Operations Manager Relationship Specialty Start Date End Date Savanah Geiger, [address] [place] [address] PCP - General Family Medicine 04/11/12 documented as of this encounter"
--- OUTSIDE RECORDS SUMMARY | 2023-08-22 17:31 | External Medical Summary ---
Author Name Unknown Address Unknown Organization K09:[facility] [address] [place] [address] Laboratory Report Ordering Provider Test Date Status MARY ANNE LAGUNA 03/29/2023 08:11:37 Final Observation Date Value Abnormality Reference (Units ) Status BUN 03/29/2023 08:11:37 27 Above high normal 6-20 (mg/dL) Final Creatinine 03/29/2023 08:11:37 1.4 Above high normal 0.6-1.2 (mg/dL) Final Glomerular filtration rate/1.73 sq M.predicted [Volume Rate/Area] in Serum, Plasma or Blood by Creatinine-based formula (CKD-EPI) 03/29/2023 08:11:37 52 Below low normal >=60 (mL/min) Final eGFR is calculated based on the CKD-EPI 2020 equation SODIUM 03/29/2023 08:11:37 135 135-146 (m mol/L) Final Potassium 03/29/2023 08:11:37 4.0 3.5-5.1 (m mol/L) Final Cl 03/29/2023 08:11:37 102 98-107 (mm ol/L) Final CO2 03/29/2023 08:11:37 22 22-32 (mmo l/L) Final Anion gap 03/29/2023 08:11:37 11 7-15 (mmol /L) Final Glucose 03/29/2023 08:11:37 133 Above high normal 70 -120 (mg/dL) Final Albumin 03/29/2023 08:11:37 3.9 3.8-5.0 (g /dL) Final AST (Aspartate aminotransferase) 03/29/2023 08:11:37 11 10-50 (U/L) Fin al Alk Phos 03/29/2023 08:11:37 85 35-130 (U/ L) Final Bilirubin, Total 03/29/2023 08:11:37 0.6 <=1 .2 (mg/dL) Final Calcium 03/29/2023 08:11:37 9.0 8.4-10.2 ( mg/dL) Final Protein 03/29/2023 08:11:37 7.0 6.0-8.3 (g /dL) Final ALT (Alanine aminotransferase) 03/29/2023 08:11:37 16 10-50 (U/L) Andrzej caal Performing Location [facility] [address] [place] [address]
--- OUTSIDE RECORDS SUMMARY | 2023-08-22 17:31 | External Medical Summary ---
Author Name Unknown Address Unknown Organization K09:[facility] [place] [address] Laboratory Report Ordering Provider Test Date Status MARY ANNE LAGUNA 03/29/2023 08:11:37 Final Observation Date Value Abnormality Reference (Units ) Status SYNC LEUKOCYTES IN BLOOD BY AUTOMATED COUNT 03/29/2023 08:11:37 10.00 4.00-10.80 (K/uL) Final Segs 03/29/2023 08:11:37 71.8 40.0-75.0 (%) Final Lymphs % 03/29/2023 08:11:37 9.8 Below low normal 18.0-42.0 (%) Final Monos 03/29/2023 08:11:37 15.4 Above high normal 1.0-11.0 (%) Final Eosinophils 03/29/2023 08:11:37 2.5 0.0-6.0 (%) Final Basos 03/29/2023 08:11:37 0.5 0.0-2.0 (%) Final Absolute Segs 03/29/2023 08:11:37 7.18 1.80-7.70 (K/uL) Final Lymphs, absolute 03/29/2023 08:11:37 0.98 Below low normal 1.00-4.80 (K/ul) Final Monos, Abs 03/29/2023 08:11:37 1.54 Above high normal 0.00-1.10 (K/uL) Final Eos, Abs 03/29/2023 08:11:37 0.25 0.00-0.70 (K/uL) Final Basos, Abs 03/29/2023 08:11:37 0.05 0.00-0.20 (K/uL) Final Performing Location [facility] [place] [address]
[2023-08-22] MEDS ORDERED: ONDANSETRON 4 MG OD TAB PO PRN (17:32)
[2023-08-22] MEDS ORDERED: traMADol HCL 50 MG TABLET PO PRN (17:32)
[2023-08-22] MEDS ORDERED: LOPERAMIDE HCL 2 MG CAP PO PRN (17:32)
--- OUTSIDE RECORDS SUMMARY | 2023-08-22 17:32 | External Medical Summary ---
Author Name Unknown Address Unknown Organization K01:[facility] [place] [address] [facility] [place] [address] Laboratory Report Ordering Provider Test Date Status MARY ANNE LAGUNA 03/14/2023 10:02:00 Final Observation Date Value Abnormality Reference (Units ) Status BUN 03/14/2023 10:02:00 18 6-20 (mg/dL) Final Creatinine 03/14/2023 10:02:00 1.4 Above high normal 0.6-1.2 (mg/dL) Final Glomerular filtration rate/1.73 sq M.predicted [Volume Rate/Area] in Serum, Plasma or Blood by Creatinine-based formula (CKD-EPI) 03/14/2023 10:02:00 56 Below low normal >=60 (mL/min) Final eGFR is calculated based on the CKD-EPI 2020 equation SODIUM 03/14/2023 10:02:00 137 135-146 (m mol/L) Final Potassium 03/14/2023 10:02:00 4.0 3.5-5.1 (m mol/L) Final Cl 03/14/2023 10:02:00 103 98-107 (mm ol/L) Final CO2 03/14/2023 10:02:00 22 22-32 (mmo l/L) Final Anion gap 03/14/2023 10:02:00 12 7-15 (mmol /L) Final Glucose 03/14/2023 10:02:00 99 70-120 (mg /dL) Final Albumin 03/14/2023 10:02:00 3.7 Below low normal 3.8 -5.0 (g/dL) Final AST (Aspartate aminotransferase) 03/14/2023 10:02:00 19 10-50 (U/L) Fin al Alk Phos 03/14/2023 10:02:00 103 35-130 (U/ L) Final Bilirubin, Total 03/14/2023 10:02:00 0.4 <=1 .2 (mg/dL) Final Calcium 03/14/2023 10:02:00 8.4 8.4-10.2 ( mg/dL) Final Protein 03/14/2023 10:02:00 5.7 Below low normal 6.0 -8.3 (g/dL) Final ALT (Alanine aminotransferase) 03/14/2023 10:02:00 20 10-50 (U/L) Andrzej caal Performing Location [facility] [place] [facility] [address] [facility] [address]
--- OUTSIDE RECORDS SUMMARY | 2023-08-22 17:32 | External Medical Summary ---
Author Name Unknown Address Unknown Organization : Laboratory Report Ordering Provider Test Date Status MARY ANNE LAGUNA 03/14/2023 10:02:00 Final Observation Date Value Abnormality Reference (Units ) Status Beta-2 Microglobulin 03/14/2023 10:02:00 4.03 Above high normal <=2.51 (mg/L) Final This test was performed usin g the Mixon
Immunoturbidimetric method. Values obtained
from different assay methods cannot be used
interchangeably. Beta-2 Microglobulin levels,
regardless of value, should not be interpreted
as absolute evidence of the presence or absence of
disease.

Test Performed at:
[facility]
[address] [place]
[place] [address]
Mathew Harry M.D., Ph.D.,Director of Laboratories Performing Location
--- OUTSIDE RECORDS SUMMARY | 2023-08-22 17:32 | External Medical Summary ---
Author Name Unknown Address Unknown Organization K01:[facility] [place] [facility] [address] [place] [address] Laboratory Report Ordering Provider Test Date Status MARY ANNE LAGUNA 03/14/2023 10:02:00 Final Observation Date Value Abnormality Reference (Units ) Status [place] light chains, Free, Serum 03/14/2023 10:02:00 17.15 3.30-19.40 (mg/L) Final Lambda light chains, free, Serum 03/14/2023 10:02:00 22.65 5.71-26.30 (mg/L) Final KAPPA LAMBDA F[facility] RATIO 03/14/2023 10:02:00 0.76 0.26-1.65 Final Performing Location [facility] [place] [facility] [place] [address]
--- OUTSIDE RECORDS SUMMARY | 2023-08-22 17:32 | External Medical Summary ---
Author Name Unknown Address Unknown Organization K01:[facility] [place] [address] [facility] [place] [address] Laboratory Report Ordering Provider Test Date Status DOMINICK LAGUNAON 03/14/2023 10:02:00 Final Observation Date Value Abnormality Reference (Units ) Status SYNC LEUKOCYTES IN BLOOD BY AUTOMATED COUNT 03/14/2023 10:02:00 8.28 4.00-10.80 (K/uL) Final Segs 03/14/2023 10:02:00 68.2 40.0-75.0 (%) Final Lymphs % 03/14/2023 10:02:00 12.9 Below low normal 18.0-42.0 (%) Final Monos 03/14/2023 10:02:00 7.6 1.0-11.0 (%) Final Eosinophils 03/14/2023 10:02:00 8.5 Above high normal 0.0-6.0 (%) Final Basos 03/14/2023 10:02:00 0.7 0.0-2.0 (%) Final Immature Granulocyte, Percent 03/14/2023 10:02:00 2.1 Above high normal 0.0-2.0 (%) Final Absolute Segs 03/14/2023 10:02:00 5.65 1.80-7.70 (K/uL) Final Lymphs, absolute 03/14/2023 10:02:00 1.07 1.00-4.80 (K/ul) Final Monos, Abs 03/14/2023 10:02:00 0.63 0.00-1.10 (K/uL) Final Eos, Abs 03/14/2023 10:02:00 0.70 0.00-0.70 (K/uL) Final Basos, Abs 03/14/2023 10:02:00 0.06 0.00-0.20 (K/uL) Final Immature Granulocytes, Number 03/14/2023 10:02:00 0.17 0.00-0.20 (K/uL) Final Performing Location [facility] [place] [facility] [address] [facility] [address]
--- OUTSIDE RECORDS SUMMARY | 2023-08-22 17:32 | External Medical Summary | Summary of Care ---
Author Name Unknown Organization [facility] Address [address] [place] [address] Phone [phone] Care Team Providers Care Janitorial Assistant Name Role Phone Savanah Geiger DO Primary Care Provider + [phone] Reason for Visit * Reason Comments Chemotherapy Velcade * Episode Based Medications (Routine) - Authorized Specialty Diagnoses / Procedures Referred By Contnataliia t Referred To Contact Diagnoses Multiple myeloma not having achieved remission (HCC) Procedures MO INJ., VELCADE 0.1 MG Luann De La Cruz MD [address] [place] [address] Anc Hem/Onc Scenery [place] [address] [place] [phone] Referral ID Status Reason Start Date Expiration Date V isits Requested Visits Authorized [id number] Authorized 02/22/2022 09/24/2099 99 99 Encounter Details Date Type Department Care Team Description 03/15/2023 Hem/Onc Treatment Hematology/Oncology Treatment, [place] [address] [place] [address] Tresa, Chair 3 Hem Onc Scenery [address] [place] [address] Multiple myeloma not having achieved remission (HCC)*; Encounter for antineoplastic chemotherapy Allergies Active Allergy Reactions Severity Noted Date Comments Calcium Carb-Cholecalciferol 016 documented as of this encounter (statuses as of 03/15/2023) Medications Medication Sig Dispensed Refills Start Date [...] MG Sublingual Tablet Sublingual (Nitrostat)Indicati ons:Atherosclerosis of [place] coronary artery of [place] heart without angina pectoris One tablet under tongue if needed for chest pain. May repeat 3 times. If chest pain continues, call 911 25 Tablet 11 01/23/2023 Active Mirtazapine 15 MG Oral Tablet (Remeron)Indication s:Poor appetite TAKE 1 TAB BY MOUTH AT BEDTIME. TO HELP WITH APPETITE, AND MOOD. 90 Tablet 0 02/05/2023 Active Lenalidomide 10 MG Oral Capsule (Revlimid)Indicatio ns:Multiple myeloma not having achieved remission (HCC) TAKE 1 CAPSULE BY MOUTH EVERY MORNING FOR 14 DAYS ON AND 7 DAYS OFF 14 Capsule 0 03/13/2023 Active documented as of this encounter (statuses as of 03/15/2023) Active Problems Problem Noted Date Dyslipidemia 03/29/2022 [...] Bladder cancer 04/24/2020 Coronary artery disease involving [place] heart without angina pectoris 05/22/2019 Old myocardial infarct 12/06/2018 S/p bare metal coronary artery stent Tobacco use disorder 04/16/2012 HTN, goal below 130/80 2012 GERD (gastroesophageal reflux disease) 0 2012 documented as of this encounter (statuses as of 03/15/2023) Resolved Problems Problem Noted Date Resolved Date [...] as of this encounter (statuses as of 03/15/2023) Immunizations Name Administration Dates Next Due COVID-19 mRNA, LNP-s, No Pre serve, 2-Dose Series ([employer]) 08/28/2021,02/18/2021,01/28/2021 Pneumococcal Conjugate Vacc, 13 Valent (Prevnar) [...] Sign Reading Time Taken Comments Blood Pressure 147/77 03/15/2023 10:59 AM EDT Pulse 78 03/15/2023 10:59 AM EDT Temperature 36.2 C (97.2 F) 03/15/2023 10:59 AM E DT Respiratory Rate 18 03/15/2023 10:59 AM EDT Oxygen Saturation - - Inhaled Oxygen Concentration - - Weight 74.5 kg (164 lb 3.2 oz) 03/15/2023 10:59 AM EDT Height - - Body Mass Index 26.5 01/05/2023 8:34 AM EDT documented in this encounter Nursing Notes * Jennifer Valerio RN - 03/15/2023 11:39 AM EDT Velcade administered per order; pt tolerated well. Pt discharged in stable condition. * Jennifer Valerio RN - 03/15/2023 11:00 AM EDT Chair 5 Chemo agents Velcade Appetite stable Nausea/Vomiting no Diarrhea yes, manages with immodium Constipation no Mucositis no Fatigue stable, working Bleeding no Infection no Rash no Numbness tingling no Pain stable Radiation n/a ABN Labs Creat 1.4, stable Alt in Tx: no Return in 2 weeks documented in this encounter Plan of Treatment Upcoming Encounters Date Type Specialty Care Team Description 03/23/2023 Scheduled Telephone Pharmacy Magan Benjamin Hem/Onc Tech [address] [place] [address] 03/29/2023 Laboratory Laboratory [place], Lab Scenery [address] [place] [address] 03/29/2023 Office Visit Hematology Oncology Luann De La Cruz MD [address] [place] [address] 03/29/2023 Hem/Onc Treatment Hematology Oncology 04/26/2023 Pharmacy Pharmacy [facility] [place] Hem/Onc [address] [place] [address] 06/22/2023 Office Visit Cardiology Leda Myers PA-C [address] [place] [address] 07/03/2023 Hem/Onc Treatment Hematology Oncology A, Infusion Chair [address] [place] [address] 07/03/2023 Appointment Radiology 07/03/2023 Office Visit Vascular Surgery Robin Burleson MD [address] [place] [address] 07/10/2023 Office Visit Family Medicine Savanah Geiger, DO [address] [place] [address] Scheduled Procedures Name Priority Associated Diagnoses Date/Ti me COLONOSCOPY FLEXIBLE PROXIMAL DIAGNOSTIC Recall History of colon polyps Health Maintenance Due Date Last Done Comments Albumin/Creatinine Ratio 02/13/1970 Alpha-1 Antitrypsin 02/13/1970 Hepatitis C Screening 02/13/1970 DTaP,Tdap,and Td Vaccines (1 - Tdap) 02/13/1971 Zoster Vaccines (1 of 2) 02/13/1971 DISCUSS TOBACCO CESSATION (REFER TO SMARTSET #0251) 07/12/2018 07/12/2017 (Course Completed) COLONOSCOPY-EVERY 3 YRS AGES 18-100 05/23/2020 05/23/2017 Depression Screening, Annual for Pts 12 and Over 07/30/2021 07/30/2020, 07/12/2017 (Declined) COVID-19 Vaccine (4 - Booster for Pfizer series) 10/23/2021 08/28/2021, 02/18/2021, 01/28/2021 GFR 09/13/2023 03/14/2023, 0602/2023, 02/13/2023, Additional history exists AAA MONITORING; CT OR US YEARLY 12/27/2023 12/26/2022, 03/02/2022, 09/10/2021, Additional history exists AAA ULTRASOUND YEARLY 12/27/2023 12/26/2022 , 03/02/2022, 09/10/2021, Additional history exists CKD PHOS USE SMARTSET 27624 2024 02/13/2023, 0 02/11/2021 O2 ASSESSMENT COMPLETED IN PAST YEAR FOR COPD 03/01/2024 03/01/2023 CKD HGB USE SMARTSET 92823 03/14/202403/14, 03/14/2023, 02/28/2023, Additional history exists LUNG CANCER SCREENING - USE SMARTSET 26305 Completed 03/14/2022, 06/03/2020, 05/27/2020, Additional history exists [...] BSA from Recorded weight), Subcutaneous, ONCE, On 6/21/23 at 1230, For 1 dose, Caution chemotherapy: Handle with gloves Given 03/15/2023 11:13 AM EDT 2.5 mg Abdomen Left Lower documented in this encounter Care Teams Janitorial Assistant Relationship Specialty Start Date End Date Savanah Geiger, DO [address] [place] [address] PCP - General Family Medicine 04/11/12 documented as of this encounter
--- OUTSIDE RECORDS SUMMARY | 2023-08-22 17:32 | External Medical Summary | Summary of Care ---
Author Name Unknown Organization [facility] Address [address] [place] [address] Phone [phone] Care Team Providers Care Transition Specialist Name Role Phone CaseySavanah harry Oswaldo JIMÉNEZ Primary Care Provider + [phone] Reason for Visit * Reason Comments Outpatient Testing Encounter Details Date Type Department Care Team Description 03/14/2023 Laboratory Laboratory, [place] [address] [place] [address] [place], Laboratory [address] [place] [address] Multiple myeloma, remission status unspecified ([facility]) Allergies Active Allergy Reactions Severity Noted Date Comments Calcium Carb-Cholecalciferol 016 documented as of this encounter (statuses as of 03/14/2023) Medications Medication Sig Dispensed Refills Start Date [...] Tablet Sublingual (Nitrostat)Indicati ons:Atherosclerosis of [place] coronary artery of [place] heart without angina pectoris One tablet under [...] as of this encounter (statuses as of 03/14/2023) Active Problems Problem Noted Date Dyslipidemia 03/29/2022 [...] 04/24/2020 Coronary artery disease involving [place] heart without angina pectoris 05/22/2019 Old myocardial infarct 12/06/2018 S/p bare metal coronary artery stent Tobacco use disorder 04/16/2012 HTN, goal below 130/80 2012 GERD (gastroesophageal reflux disease) 0 2012 documented as of this encounter (statuses as of 03/14/2023) Resolved Problems Problem Noted Date Resolved Date Dehydration 02/01/2021 03/29/2022 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 Atherosclerosis of coronary artery without angin a pectoris 09/14/2018 03/29/2022 ST elevation myocardial infarction (STEMI) 03/2012/06/2018 Lung nodule 10/14/2015 03/29/2022 ST elevation myocardial infa rction (STEMI) involving other coronary artery 05/19/2015 03/20/2017 ST elevation ND (STEMI) 01/12/2015 09/14/20 18 Myocardial infarction 02/03/2014 09/14/2018 COPD, moderate 08/27/2013 08/06/2020 Overview: Per COPD GOLD Classification Noncompliance 03/13/2013 03/21/2017 Anemia 05/03/2012 03/29/2022 COPD, severity to be determined 04/16/2012 08/27/2013 Dyslipidemia, goal LDL below 70 04/16/2012 03/29/2022 documented as of this encounter (statuses as of 03/14/2023) Immunizations Name Administration Dates Next Due COVID-19 [...] Encounters Date Type Specialty Care Team Description 03/15/2023 Hem/Onc Treatment Hematology Oncology [place], Chair 3 Hem Onc Scenery [address] [place] [address] 03/23/2023 Scheduled Telephone Pharmacy Magan Benjamin Hem/Onc Tech [address] [facility] [place] [address] 03/29/2023 Laboratory Laboratory [place], Lab Scene [address] [place] [address] 03/29/2023 Office Visit Hematology Oncology Luann De La Cruz MD [address] [place] [address] 03/29/2023 Hem/Onc Treatment Hematology Oncology 04/26/2023 Pharmacy Pharmacy [facility] [place] Hem/Onc [address] [place] [address] 06/22/2023 Office Visit Cardiology Leda Myers PA-C [address] [place] [address] 07/03/2023 Hem/Onc Treatment Hematology Oncology A, Infusion Chair [address] [place] [address] 07/03/2023 Appointment Radiology 07/03/2023 Office Visit Vascular Surgery Robin Burleson MD [address] [place] [address] 07/10/2023 Office Visit Family Medicine Savanah Geiger, DO [address] [place] [address] Pending Results Name Type Priority Associated Diagnoses Date /Time [id number], SERUM Lab Routine Multiple myeloma, remission status unspecified (HCC) 03/14/2023 10:02 AM EDT CBC WITH WBC DIFFERENTIAL Lab Routine Multiple myeloma, remission status unspecified (HCC) 03/14/2023 10:02 AM EDT COMPREHENSIVE METABOLIC PANEL Lab Routine Multiple myeloma, remission status unspecified (HCC) 03/14/2023 10:02 AM EDT IMMUNOGLOBULIN QUANTITATIVE Lab Routine Multiple myeloma, remission status unspecified (HCC) 03/14/2023 10:02 AM EDT SERUM FREE LIGHT CHAINS Lab Routine Multiple myeloma, remission status unspecified (HCC) 03/14/2023 10:02 AM EDT CBC Lab Routine Multiple myeloma, remission status unspecified (HCC) 03/14/2023 10:02 AM EDT DIFFERENTIAL, AUTOMATED Lab Routine Multiple myeloma, remission status unspecified (HCC) 03/14/2023 10:02 AM EDT Scheduled Procedures Name Priority [...] Pfizer series) 10/23/2021 08/28/2021, 02/18/2021, 01/28/2021 GFR 08/30/2023 02/28/2023, 01/24, 02/07/2023, Additional history exists AAA MONITORING; CT OR US YEARLY 12/27/2023 12/26/2022, 03/02/2022, 09/10/2021, Additional history exists AAA ULTRASOUND YEARLY 12/27/2023 12/26/2022 , 03/02/2022, 09/10/2021, Additional history exists CKD PHOS USE SMARTSET 80741 2024 02/13/2023, 0 02/11/2021 CKD HGB USE SMARTSET 23229 02/29/202402/28, 02/28/2023, 02/13/2023, Additional history exists O2 ASSESSMENT COMPLETED IN PAST YEAR FOR COPD 03/01/2024 03/01/2023 LUNG CANCER SCREENING - USE SMARTSET 82948 Completed 03/14/2022, 06/03/2020, 05/27/2020, Additional history exists [...] (HCC) documented in this encounter Care Teams Transition Specialist Relationship Specialty Start Date End Date Savanah Geiger, [address] [place] [address] PCP - General Family Medicine 04/11/12 documented as of this encounter
--- OUTSIDE RECORDS SUMMARY | 2023-08-22 17:32 | External Medical Summary ---
Author Name Unknown Address Unknown Organization K01:[facility]ATORY [place] [address] [place] [address] Laboratory Report Ordering Provider Test Date Status MARY ANNE LAGUNA 03/14/2023 10:02:00 Final Observation Date Value Abnormality Reference (Units ) Status WBC, Total 03/14/2023 10:02:00 8.28 4.00-10.80 (K/uL) Final RBC 03/14/2023 10:02:00 3.53 4.50-5.25 (M/uL) Final Hemoglobin 03/14/2023 10:02:00 11.1 Below low normal 14.0-16.8 (g/dL) Final HCT 03/14/2023 10:02:00 36.0 Below low normal 40.0-48.4 (%) Final MCV 03/14/2023 10:02:00 102.0 82.0-99.5 (fL) Final MCH 03/14/2023 10:02:00 31.4 27.0-34.0 (pg) Final MCHC 03/14/2023 10:02:00 30.8 32.0-36.0 (g/dL) Final RDW 03/14/2023 10:02:00 17.7 11.5-15.5 (%) Final Platelets 03/14/2023 10:02:00 204 140-400 (K/uL) Final MPV 03/14/2023 10:02:00 11.8 6.6-11.1 (fL) Final Nucleated erythrocytes/100 leukocytes [Ratio] in Blood by Automated count 03/14/2023 10:02:00 0 <=0 (/100 WBCs) Final Performing Location LABORATORY [facility] [place] - [facility] [address] [place] [address]
--- OUTSIDE RECORDS SUMMARY | 2023-08-22 17:32 | External Medical Summary ---
Author Name Unknown Address Unknown Organization K01:[facility] - [address] [place] [address] Laboratory Report Ordering Provider Test Date Status MARY ANNE LAGUNA 03/14/2023 10:02:00 Final Observation Date Value Abnormality Reference (Units ) Status IgG 03/14/2023 10:02:00 680 098-3520 ( mg/dL) Final IgA 03/14/2023 10:02:00 101 70-400 (mg /dL) Final IgM 03/14/2023 10:02:00 16 Below low normal 40- 230 (mg/dL) Final Performing Location LAB[facility] - [address] [place] [address]
--- OUTSIDE RECORDS SUMMARY | 2023-08-22 17:32 | External Medical Summary | Summary of Care ---
Author Name Unknown Organization [facility] Address [address] [place] [address] Phone [phone] Care Team Providers Care Coffee Maker Name Role Phone CaseySavanah harry Oswaldo JIMÉNEZ Primary Care Provider [phone] Reason for Visit * Reason Onset Date Comments Advice 03/20/2023 Dr. De La Cruz Encounter Details Date Type Department Care Team Description 03/20/2023 Telephone Hematology/Oncology [facility] [place] [address] [place] [address] Luann De La Cruz MD [address] [place] [address] Advice (Dr. De La Cruz) Allergies Active Allergy Reactions Severity Noted Date Comments Calcium Carb-Cholecalciferol 016 documented as of this encounter (statuses as of 03/20/2023) Medications Medication Sig Dispensed Refills Start Date [...] MG Sublingual Tablet Sublingual (Nitrostat)Indicati ons:Atherosclerosis of [place] coronary artery of [place] heart without angina pectoris One tablet under [...] as of this encounter (statuses as of 03/20/2023) Active Problems Problem Noted Date Dyslipidemia 03/29/2022 [...] Bladder cancer 04/24/2020 Coronary artery disease involving [place] heart without angina pectoris 05/22/2019 Old myocardial infarct 12/06/2018 S/p bare metal coronary artery stent Tobacco use disorder 04/16/2012 HTN, goal below 130/80 2012 GERD (gastroesophageal reflux disease) 0 2012 documented as of this encounter (statuses as of 03/20/2023) Resolved Problems Problem Noted Date Resolved Date [...] as of this encounter (statuses as of 03/20/2023) Immunizations Name Administration Dates Next Due COVID-19 [...] Miscellaneous Notes * Telephone Encounter - JOSE Young - [...] Care Team Description 03/23/2023 Scheduled Telephone Pharmacy [facility] Hem/Onc Tech [address] [place] [address] 03/29/2023 Laboratory Laboratory [place], Lab Scenery [address] [place] [address] 03/29/2023 Hem/Onc Treatment Hematology Oncology 03/29/2023 Office Visit Hematology Oncology Luann De La Cruz MD [address] [place] [address] 04/26/2023 Pharmacy Pharmacy [facility] Hem/Onc [address] [place] [address] 06/22/2023 Office Visit Cardiology Leda Myers PA-C [address] [place] [address] 07/03/2023 Hem/Onc Treatment Hematology Oncology A, Infusion Chair [address] [place] [address] 07/03/2023 Appointment Radiology 07/03/2023 Office Visit Vascular Surgery Robin Burleson MD [address] [place] [address] 07/10/2023 Office Visit Family Medicine Savanah Geiger, DO [address] [place] [address] Scheduled Procedures Name Priority Associated Diagnoses Date/Ti [...] Additional history exists CKD PHOS USE SMARTSET 43730 2024 02/13/2023, 0 02/11/2021 O2 ASSESSMENT COMPLETED IN PAST YEAR FOR COPD 03/01/2024 03/01/2023 CKD HGB USE SMARTSET 39151 03/14/202403/14, 03/14/2023, 02/28/2023, Additional history exists LUNG CANCER SCREENING - USE SMARTSET 15548 Completed 03/14/2022, 06/03/2020, 05/27/2020, Additional history exists [...] filedocumented as of this encounter Care Teams Coffee Maker Relationship Specialty Start Date End Date Savanah Geiger, [address] [place] [address] PCP - General Family Medicine 04/11/12 documented as of this encounter
--- OUTSIDE RECORDS SUMMARY | 2023-08-22 17:32 | External Medical Summary | Summary of Care ---
Author Name Unknown Organization [facility] Address [address] [place] [address] Phone [phone] Care Team Providers Care Jail Guard Name Role Phone Savanah Baires DO Primary Care Provider [phone] Reason for Visit * Reason Onset Date Comments Medication Refill 03/20/2023 Encounter Details Date Type Department Care Team Description 03/20/2023 Refill Cardiology, [facility] [address] [place] [address] Nirav Baires DO [address] [facility] [place] [address] Atherosclerosis of [place] coronary artery of [place] heart without angina pectoris Allergies Active Allergy Reactions Severity Noted Date [...] Sublingual Tablet Sublingual (Nitrostat)Indica tions:Atheroscler osis of [place] coronary artery of [place] heart without angina pectoris One tablet under tongue if needed for chest pain. May repeat 3 times. If chest pain continues, call 911 75 Tablet 3 03/20/2023 Active Nitroglycerin 0.4 MG Sublingual Tablet Sublingual (Nitrostat)Indica tions:Atheroscler osis of [place] coronary artery of [place] heart without angina pectoris One tablet under tongue if needed for chest pain. May repeat 3 times. If chest pain continues, call 911 25 Tablet 11 01/23/2023 Discontinue d(Refill) documented as of this encounter [...] Bladder cancer 04/24/2020 Coronary artery disease involving [place] heart without angina pectoris 05/22/2019 Old myocardial [...] mRNA, LNP-s, No Pre serve, 2-Dose Series ([employer]) 08/28/2021,02/18/2021,01/28/2021 Pneumococcal Conjugate Vacc, 13 Valent [...] Telephone Encounter - Nirav Baires DO - 03/20/2023 12:44 PM EDTSigned Prescriptions: Disp Refills Nitroglycerin 0.4 MG Sublingual Tablet Sub*75 Tab*3 Sig: One tablet under tongue if needed for chest pain. May repeat 3 times. If chest pain continues, call 911 Authorizing Provider: NIRAV BAIRES * Telephone Encounter - Chantel Ford LPN - 03/20/2023 9:43 AM EDT Did you pend patient's preferred pharmacy and medication before forwarding?yes Pharmacy: [id number] [address] [facility] Pending Prescriptions: Disp Refills Nitroglycerin 0.4 MG Sublingual Tablet Louis*25 Tab*11 Sig: One tablet under tongue if needed for chest pain. May repeat 3 times. If chest pain continues, call 911 Last Visit: 12/16/2022 (in office), 10/21/2020 (telemedicine) Next Visit: 06/22/2023 If no future appointments scheduled, and last appointment is greater than a year ago, please schedule patient for a follow-up appointment Last date the medication was ordered: 02/14 - pharmacy requesting 90 day supply Is this request for a controlled substance? NO Urine Drug Screen:No results found. However, due to the size of the patient record, not all encounters were searched. Please check Results Review for a complete set of results. Patient Phone Numbers Labs: Lab Results Component Value Date/Time CREAT 1.4 (H) 03/14/2023 10:02 AM CREAT 1.7 (H) 03/02/2022 09:56 AM CREAT 0.9 10/01/2020 07:44 AM POTASSIUM 4.0 03/14/2023 10:02 AM POTASSIUM 3.0 (L) 10/01/2020 07:44 AM TSH 1.26 02/28/2023 11:53 AM TSH 2.47 09/14/2018 12:22 PM LDLCALC 74 02/13/2023 08:03 AM LDLCALC 73 09/14/2018 12:22 PM LDLDIRECT NOT APPLICABLE 09/14/2018 12:22 PM ALT 20 03/14/2023 10:02 AM ALT 15 10/01/2020 07:44 AM documented in this encounter Plan of Treatment Upcoming Encounters Date Type Specialty Care Team Description 03/23/2023 Scheduled Telephone Pharmacy [facility] Hem/Onc Tech [address] [place] [address] 03/29/2023 Laboratory Laboratory [place], Lab [facility] [address] [place] [address] 03/29/2023 Office Visit Hematology Oncology Luann De La Cruz MD [address] [place] [address] 03/29/2023 Hem/Onc Treatment Hematology Oncology 04/26/2023 Pharmacy Pharmacy [facility] Hem/Onc [address] [place] [address] 06/22/2023 Office Visit Cardiology Leda Myers PA-C [address] [place] [address] 07/03/2023 Hem/Onc Treatment Hematology Oncology A, Infusion Chair [address] [place] [address] 07/03/2023 Appointment Radiology 07/03/2023 Office Visit Vascular Surgery Robin Burleson MD [address] [place] [address] 07/10/2023 Office Visit Family Medicine Savanah Baires DO [address] [place] [address] Scheduled Procedures Name Priority Associated Diagnoses Date/Ti [...] Additional history exists CKD PHOS USE SMARTSET 01874 2024 02/13/2023, 0 02/11/2021 O2 ASSESSMENT COMPLETED IN PAST YEAR FOR COPD 03/01/2024 03/01/2023 CKD HGB USE SMARTSET 86022 03/14/202403/14, 03/14/2023, 02/28/2023, Additional history exists LUNG CANCER SCREENING - USE SMARTSET 45529 Completed 03/14/2022, 06/03/2020, 05/27/2020, Additional history exists [...] as of this encounter Visit Diagnoses Diagnosis Atherosclerosis of [place] coronary artery of [place] heart without angina pectoris documented in this encounter Care Teams Jail Guard Relationship Specialty Start Date End Date Savanah Baires, [address] [place] [address] PCP - General Family Medicine 04/11/12 documented as of this encounter
--- OUTSIDE RECORDS SUMMARY | 2023-08-22 17:32 | External Medical Summary | Summary of Care ---
Author Name Unknown Organization [facility] Address [address] [place] [address] Phone [phone] Care Team Providers Care Cigarette Lighter Repairer Name Role Phone CaseySavanah harry Oswaldo JIMÉNEZ Primary Care Provider [phone] Reason for Visit * Reason Onset Date Comments Advice 03/20/2023 Dr. De La Cruz Encounter Details Date Type Department Care Team Description 03/20/2023 Telephone Hematology/Oncology [facility] [place] [address] [place] [address] Luann De La Cruz MD [address] [place] [address] Advice (Dr. De La Cruz) Allergies Active [...] MG Sublingual Tablet Sublingual (Nitrostat)Indicati ons:Atherosclerosis of [place] coronary artery of [place] heart without angina pectoris One tablet under [...] Bladder cancer 04/24/2020 Coronary artery disease involving [place] heart without angina pectoris 05/22/2019 Old myocardial [...] mRNA, LNP-s, No Pre serve, 2-Dose Series (DrEd Online Doctor) 08/28/2021,02/18/2021,01/28/2021 Pneumococcal Conjugate Vacc, 13 Valent (Prevnar) [...] Miscellaneous Notes * Telephone Encounter - JOSE Campbell - [...] Care Team Description 03/23/2023 Scheduled Telephone Pharmacy [facility] Hem/Onc Tech [address] [place] [address] 03/29/2023 Laboratory Laboratory [facility] [address] [place] [address] 03/29/2023 Hem/Onc Treatment Hematology Oncology 03/29/2023 Office Visit Hematology Oncology Luann De La Cruz MD [address] [place] [address] 04/26/2023 Pharmacy Pharmacy [facility] Hem/Onc [address] [place] [address] 06/22/2023 Office Visit Cardiology Leda Myers PA-C [address] [place] [address] 07/03/2023 Hem/Onc Treatment Hematology Oncology A, Infusion Chair [address] [place] [address] 07/03/2023 Appointment Radiology 07/03/2023 Office Visit Vascular Surgery Robin Burleson MD [address] [place] [address] 07/10/2023 Office Visit Family Medicine Savanah Geiger, [address] [place] [address] Scheduled Procedures Name Priority Associated Diagnoses Date/Ti [...] Additional history exists CKD PHOS USE SMARTSET 36465 2024 02/13/2023, 0 02/11/2021 O2 ASSESSMENT COMPLETED IN PAST YEAR FOR COPD 03/01/2024 03/01/2023 CKD HGB USE SMARTSET 42166 03/14/202403/14, 03/14/2023, 02/28/2023, Additional history exists LUNG CANCER SCREENING - USE SMARTSET 45442 Completed 03/14/2022, 06/03/2020, 05/27/2020, Additional history exists [...] filedocumented as of this encounter Care Teams Cigarette Lighter Repairer Relationship Specialty Start Date End Date Savanah Geiger, DO [address] [place] [address] PCP - General Family Medicine 04/11/12 documented as of this encounter
--- OUTSIDE RECORDS SUMMARY | 2023-08-22 17:33 | External Medical Summary ---
Author Name Unknown Address Unknown Organization [id number]:[facility]ORY [facility] [place] [address] [place] [address] Laboratory Report Ordering Provider Test Date Status MARY ANNE LAGUNA 02/28/2023 11:53:59 Final Observation Date Value Abnormality Reference (Units) Status Protein 11:53:59 6.1 6.0-8.3 (g/dL) Final Albumin/Protein.total [Pure mass fraction] in Serum or Plasma by Electrophoresis 11:53:59 3.02 Below low normal 3.30-4.40 (g/dL) Final Alpha 1 globulin/Protein.tota l [Pure mass fraction] in Serum or Plasma by Electrophoresis 11:53:59 0.28 0.10-0.30 (g/dL) Final Alpha 2 globulin/Protein.tota l [Pure mass fraction] in Serum or Plasma by Electrophoresis 11:53:59 1.19 Above high normal 0.60-1.00 (g/dL) Final Beta globulin/Protein.tota l [Pure mass fraction] in Serum or Plasma by Electrophoresis 11:53:59 0.82 0.80-1.30 (g/dL) Final Gamma globulin/Protein.tota l [Pure mass fraction] in Serum or Plasma by Electrophoresis 11:53:59 0.79 0.70-1.70 (g/dL) Final Protein Fractions [Interpretation] in Serum or Plasma by Electrophoresis Narrative 11:53:59 A paraprotein is present that has been previously identified as a monoclonal IgG lambda. Paraprotein concentration is detectable, but less than 0.5 g/dL, unable to be accurately quantified by this method. Final Performing Location LAB[facility]ATORY [facility] [place] - [address] [place] [address]
--- OUTSIDE RECORDS SUMMARY | 2023-08-22 17:33 | External Medical Summary | Summary of Care ---
Author Name Unknown Organization [facility] Address [address] [place] [address] Phone [phone] Care Team Providers Care Founder Ceo & President Name Role Phone GriffinreedSavanah DO Primary Care Provider Reason for Visit * Reason Onset Date Comments Medication Refill 03/13/2023 Encounter Details Date Type Department Care Team Description 03/13/2023 Refill Hematology/Oncology Treatment, [address] [id number] Luann De La Cruz MD [address] [place] [address] Multiple myeloma not having achieved remission (HCC) Allergies Active Allergy Reactions Severity Noted Date Comments Calcium Carb-Cholecalciferol 016 documented as of this encounter (statuses as of 03/13/2023) Medications Medication Sig Dispensed Refills Start Date [...] Sublingual Tablet Sublingual (Nitrostat)Indica tions:Atheroscler osis of [place] coronary artery of [place] heart without angina pectoris One tablet under tongue if needed for chest pain. May repeat 3 times. If chest pain continues, call 911 25 Tablet 11 01/23/2023 Active Mirtazapine 15 MG Oral Tablet (Remeron)Indicati ons:Poor appetite TAKE 1 TAB BY MOUTH AT BEDTIME. TO HELP WITH APPETITE, AND MOOD. 90 Tablet 0 02/05/2023 Active Lenalidomide 10 MG Oral Capsule (Revlimid)Indicat ions:Multiple myeloma not having achieved remission (HCC) TAKE 1 CAPSULE BY MOUTH EVERY MORNING FOR 14 DAYS ON AND 7 DAYS OFF 14 Capsule 0 03/13/2023 Active Lenalidomide 10 MG Oral Capsule (Revlimid)Indicat ions:Multiple myeloma not having achieved remission (HCC) TAKE 1 CAPSULE BY MOUTH EVERY MORNING FOR 14 DAYS ON AND 7 DAYS OFF 14 Capsule 0 02/15/2023 3 Discontinue d(Refill) documented as of this encounter (statuses as of 03/13/2023) Active Problems Problem Noted Date Dyslipidemia 03/29/2022 [...] Bladder cancer 04/24/2020 Coronary artery disease involving [place] heart without angina pectoris 05/22/2019 Old myocardial infarct 12/06/2018 S/p bare metal coronary artery stent Tobacco use disorder 04/16/2012 HTN, goal below 130/80 2012 GERD (gastroesophageal reflux disease) 0 2012 documented as of this encounter (statuses as of 03/13/2023) Resolved Problems Problem Noted Date Resolved Date [...] as of this encounter (statuses as of 03/13/2023) Immunizations Name Administration Dates Next Due COVID-19 mRNA, LNP-s, No Pre serve, 2-Dose Series (Live Life 360) 08/28/2021,02/18/2021,01/28/2021 Pneumococcal Conjugate Vacc, 13 Valent (Prevnar) [...] Telephone Encounter - Sarahy Rodriges RN - 03/13/2023 4:27 PM EDT Per [facility] note: "Treatment: Medication:Lenalidomide (Revlimid) Indication:multiple myeloma Dose:10mg daily D1-14 every 21 days" Prescriber survey complete, auth # [id number] documented in this encounter Plan of Treatment Upcoming Encounters Date Type Specialty Care Team Description 03/14/2023 Laboratory Laboratory [place], Laboratory [address] [place] [address] 03/15/2023 Hem/Onc Treatment Hematology Oncology [place], Chair 4 Hem Onc Scenery [address] [place] [address] 03/23/2023 Scheduled Telephone Pharmacy [facility] Hem/Onc Tech [address] [place] [address] 03/29/2023 Laboratory Laboratory [facility] Scenery [address] [place] [address] 03/29/2023 Office Visit Hematology Oncology Luann De La Cruz MD [address] [place] [address] 03/29/2023 Hem/Onc Treatment Hematology Oncology 04/26/2023 Pharmacy Pharmacy [facility] Hem/Onc [address] [place] [address] 06/22/2023 Office Visit Cardiology Leda Myers PA-C [address] [place] [address] 07/03/2023 Hem/Onc Treatment Hematology Oncology A, Infusion Chair [address] [place], [place] [id number] 07/03/2023 Appointment Radiology 07/03/2023 Office Visit Vascular Surgery Robin Burleson MD [address] [place] [address] 07/10/2023 Office Visit Family Medicine Savanah Geiger DO [address] [place], [place] [id number] Scheduled Procedures Name Priority Associated Diagnoses Date/Ti [...] Additional history exists CKD PHOS USE SMARTSET 11793 2024 02/13/2023, 0 02/11/2021 CKD HGB USE SMARTSET 00110 02/29/202402/28, 02/28/2023, 02/13/2023, Additional history exists O2 ASSESSMENT COMPLETED IN PAST YEAR FOR COPD 03/01/2024 03/01/2023 LUNG CANCER SCREENING - USE SMARTSET 93211 Completed 03/14/2022, 06/03/2020, 05/27/2020, Additional history exists [...] remission documented in this encounter Care Teams Founder Ceo & President Relationship Specialty Start Date End Date Savanah Geiger, DO [address] [place] [address] PCP - General Family Medicine 04/11/12 documented as of this encounter
--- OUTSIDE RECORDS SUMMARY | 2023-08-22 17:33 | External Medical Summary ---
Author Name Unknown Address Unknown Organization K01:LABORATORY [place] [address] [place] [address] Laboratory Report Ordering Provider Test Date Status MARY ANNE LAGUNA 02/28/2023 11:53:59 Final Observation Date Value Abnormality Reference (Units ) Status [place] light chains, Free, Serum 02/28/2023 11:53:59 18.27 3.30-19.40 (mg/L) Final Lambda light chains, free, Serum 02/28/2023 11:53:59 26.90 Above high normal 5.71-26.30 (mg/L) Final KAPPA LAMBDA FLC RATIO 02/28/2023 11:53:59 0.68 0.26-1.65 Final Performing Location [place] [facility] [place] [facility] [place] [address]
--- OUTSIDE RECORDS SUMMARY | 2023-08-22 17:33 | External Medical Summary ---
Author Name Unknown Address Unknown Organization K01:[facility] [place] [facility] [address] [place] [address] Laboratory Report Ordering Provider Test Date Status MARY ANNE LAGUNA 02/28/2023 11:53:59 Final Observation Date Value Abnormality Reference (Units ) Status WBC, Total 02/28/2023 11:53:59 11.41 Above high normal 4.00-10.80 (K/uL) Final RBC 02/28/2023 11:53:59 3.89 4.50-5.25 (M/uL) Final Hemoglobin 02/28/2023 11:53:59 12.5 Below low normal 14.0-16.8 (g/dL) Final HCT 02/28/2023 11:53:59 39.5 Below low normal 40.0-48.4 (%) Final MCV 02/28/2023 11:53:59 101.5 82.0-99.5 (fL) Final MCH 02/28/2023 11:53:59 32.1 27.0-34.0 (pg) Final MCHC 02/28/2023 11:53:59 31.6 32.0-36.0 (g/dL) Final RDW 02/28/2023 11:53:59 17.5 11.5-15.5 (%) Final Platelets 02/28/2023 11:53:59 262 140-400 (K/uL) Final MPV 02/28/2023 11:53:59 12.2 6.6-11.1 (fL) Final Nucleated erythrocytes/100 leukocytes [Ratio] in Blood by Automated count 02/28/2023 11:53:59 0 <=0 (/100 WBCs) Final Performing Location [facility] [facility] [place] [address] [place] [address]
--- OUTSIDE RECORDS SUMMARY | 2023-08-22 17:33 | External Medical Summary ---
Author Name Unknown Address Unknown Organization K01:[facility]ORY [facility] [place] [address] [facility] [place] [address] Laboratory Report Ordering Provider Test Date Status LAGUNAMARY ANNE 02/28/2023 11:53:59 Final Observation Date Value Abnormality Reference (Units ) Status SYNC LEUKOCYTES IN BLOOD BY AUTOMATED COUNT 02/28/2023 11:53:59 11.41 Above high normal 4.00-10.80 (K/uL) Final Segs 02/28/2023 11:53:59 84.8 Above high normal 40.0-75.0 (%) Final Lymphs % 02/28/2023 11:53:59 4.6 Below low normal 18.0-42.0 (%) Final Monos 02/28/2023 11:53:59 6.8 1.0-11.0 (%) Final Eosinophils 02/28/2023 11:53:59 1.9 0.0-6.0 (%) Final Basos 02/28/2023 11:53:59 0.3 0.0-2.0 (%) Final Immature Granulocyte, Percent 02/28/2023 11:53:59 1.6 0.0-2.0 (%) Final Absolute Segs 02/28/2023 11:53:59 9.67 Above high normal 1.80-7.70 (K/uL) Final Lymphs, absolute 02/28/2023 11:53:59 0.53 Below low normal 1.00-4.80 (K/ul) Final Monos, Abs 02/28/2023 11:53:59 0.78 0.00-1.10 (K/uL) Final Eos, Abs 02/28/2023 11:53:59 0.22 0.00-0.70 (K/uL) Final Basos, Abs 02/28/2023 11:53:59 0.03 0.00-0.20 (K/uL) Final Immature Granulocytes, Number 02/28/2023 11:53:59 0.18 0.00-0.20 (K/uL) Final Performing Location [facility] [place] - [facility] [address] [facility] [address]
--- OUTSIDE RECORDS SUMMARY | 2023-08-22 17:33 | External Medical Summary | Summary of Care ---
Author Name Unknown Organization [facility] Address [address] [place] [address] Phone [phone] Care Team Providers Care Addictions Recovery Specialist Name Role Phone Caseypiero Savanahsunshine Chacon DO Primary Care Provider [phone] Reason for Visit * Reason Comments Outpatient Testing Encounter Details Date Type Department Care Team Description 02/28/2023 Laboratory Laboratory, [place] [address] [place] [address] [place], [facility] [address] [place] [address] Multiple myeloma ([facility]); Multiple myeloma not having achieved remission ([facility]); Multiple myeloma, remission status unspecified ([facility]) Allergies Active Allergy Reactions Severity Noted Date Comments Calcium Carb-Cholecalciferol 016 documented as of this encounter (statuses as of 02/28/2023) Medications Medication Sig Dispensed Refills Start Date [...] MG Sublingual Tablet Sublingual (Nitrostat)Indicati ons:Atherosclerosis of [place] coronary artery of [place] heart without angina pectoris One tablet under [...] 7 DAYS OFF 14 Capsule 0 02/15/2023 Active documented as of this encounter (statuses as of 02/28/2023) Active Problems Problem Noted Date Dyslipidemia 03/29/2022 [...] Bladder cancer 04/24/2020 Coronary artery disease involving [place] heart without angina pectoris 05/22/2019 Old myocardial infarct 12/06/2018 S/p bare metal coronary artery stent Tobacco use disorder 04/16/2012 HTN, goal below 130/80 2012 GERD (gastroesophageal reflux disease) 0 2012 documented as of this encounter (statuses as of 02/28/2023) Resolved Problems Problem Noted Date Resolved Date [...] as of this encounter (statuses as of 02/28/2023) Immunizations Name Administration Dates Next Due COVID-19 [...] Encounters Date Type Specialty Care Team Description 03/01/2023 Laboratory [facility] [address] [place] [address] 03/01/2023 Pharmacy [facility]acy [facility] Hem/Onc [address] [facility] [place] [address] 03/01/2023 Hem/Onc Treatment Hematology Oncology [place], Chair 8 Hem Onc Scenery [address] [place] [address] 03/15/2023 Laboratory Laboratory [facility] Lab Scenery [address] [place] [address] 03/15/2023 Hem/Onc Treatment Hematology Oncology [place], Chair [address] Hem On[address] [place] [address] 03/23/2023 Scheduled Telephone Pharmacy [facility] Hem/Onc Tech [address] [place] [address] 03/29/2023 Laboratory Laboratory [facility] Lab [facility] [address] [place] [address] 03/29/2023 Office Visit Hematology Oncology Luann De La Cruz MD [address] [place] [address] 03/29/2023 Hem/Onc Treatment Hematology Oncology 06/22/2023 Office Visit Cardiology Leda Myers PA-C [address] [facility] [address] 07/03/2023 Hem/Onc Treatment Hematology Oncology A, Infusion Chair [address] [place] [address] 07/03/2023 Appointment Radiology 07/03/2023 Office Visit Vascular Surgery Robin Burleson MD [address] [place] [address] 07/10/2023 Office Visit Family Medicine Savanah Geiger, DO [address] [place] [address] Pending Results Name Type Priority Associated Diagnoses Date /Time IMMUNOGLOBULIN QUANTITATIVE Lab STAT Multiple myeloma ([facility]) 02/28/2023 11:53 AM EDT SERUM PROTEIN ELECTROPHORESIS REFLEX PROFILE Lab STAT Multiple myeloma ([facility]) 02/28/2023 11:53 AM EDT SERUM FREE LIGHT CHAINS Lab STAT Multiple myeloma ([facility]) 02/28/2023 11:53 AM EDT TSH WITH FREE T4 IF INDICATED Lab STAT Multiple myeloma not having achieved remission ([facility]) 02/28/2023 11:53 AM EDT COMPREHENSIVE METABOLIC PANEL Lab Routine Multiple myeloma not having achieved remission ([facility]) 02/28/2023 11:53 AM EDT CBC WITH WBC DIFFERENTIAL Lab Routine Multiple myeloma not having achieved remission ([facility]) 02/28/2023 11:53 AM EDT CBC Lab Routine Multiple myeloma not having achieved remission ([facility]) 02/28/2023 11:53 AM EDT DIFFERENTIAL, AUTOMATED Lab Routine Multiple myeloma not having achieved remission ([facility]) 02/28/2023 11:53 AM EDT Scheduled Procedures Name Priority Associated [...] Pfizer series) 10/23/2021 08/28/2021, 02/18/2021, 01/28/2021 GFR 08/16/2023 02/13/2023, 01/23, 01/31/2023, Additional history exists AAA MONITORING; CT OR US YEARLY 12/27/2023 12/26/2022, 03/02/2022, 09/10/2021, Additional history exists AAA ULTRASOUND YEARLY 12/27/2023 12/26/2022 , 03/02/2022, 09/10/2021, Additional history exists CKD HGB USE SMARTSET 59897 02/14/202402/13, 02/13/2023, 02/07/2023, Additional history exists CKD PHOS USE SMARTSET 65290 2024 02/13/2023, 0 02/11/2021 O2 ASSESSMENT COMPLETED IN PAST YEAR FOR COPD 2024 02/13/2023 LUNG CANCER SCREENING - USE SMARTSET 20344 Completed 03/14/2022, 06/03/2020, 05/27/2020, Additional history exists [...] (HCC) documented in this encounter Care Teams Addictions Recovery Specialist Relationship Specialty Start Date End Date Savanah Geiger DO [address] [place] [address] PCP - General Family Medicine 04/11/12 documented as of this encounter
--- OUTSIDE RECORDS SUMMARY | 2023-08-22 17:33 | External Medical Summary ---
Author Name Unknown Address Unknown Organization K01:LAB[facility]ATORY [facility] [place] - [address] [place] [address] Laboratory Report Ordering Provider Test Date Status MARY ANNE LAGUNA 02/28/2023 11:53:59 Final Baseline then every 2-3 thuy hs Observation Date Value Abnormality Reference (Units ) Status TSH 02/28/2023 11:53:59 1.26 0.27-4.20 (uIU/mL) Final Performing Location LABORATORY [facility] [place] - [address] [place] [address]
--- OUTSIDE RECORDS SUMMARY | 2023-08-22 17:33 | External Medical Summary | Summary of Care ---
Author Name Unknown Organization [facility] Address [address] [place] [address] Phone [phone] Care Team Providers Care Maintenance Director Name Role Phone Caseypiero Savanahsunshine Chacon DO Primary Care Provider [phone] Reason for Visit * Reason Comments Outpatient Testing Encounter Details Date Type Department Care Team Description 02/28/2023 Laboratory Laboratory, [place] [address] [place] [address] [place], Laboratory [address] [place] [address] Multiple myeloma ([facility]); Multiple myeloma not having achieved remission ([facility]); Multiple myeloma, remission status unspecified ([facility]) Allergies Active Allergy Reactions Severity [...] Tablet Sublingual (Nitrostat)Indicati ons:Atherosclerosis of [place] coronary artery of [place] heart without angina pectoris One tablet under [...] 04/24/2020 Coronary artery disease involving [place] heart without angina pectoris 05/22/2019 Old myocardial [...] Laboratory Laboratory [facility] [address] [place] [address] 03/01/2023 Pharmacy [facility] Hem/Onc [address] [facility] [place] [address] 03/01/2023 Hem/Onc Treatment Hematology Oncology [place], Chair 8 Hem Onc Scenery [address] [facility] [place] [address] 03/15/2023 Laboratory Laboratory [facility] Lab Scenery [address] [facility] [place] [address] 03/15/2023 Hem/Onc Treatment Hematology Oncology [place], Chair 10 Hem Onc Scenery [address] [facility] [place] [address] 03/23/2023 Scheduled Telephone Pharmacy [facility] Hem/Onc Tech [address] [place] [address] 03/29/2023 Laboratory Laboratory [facility] [address] [facility] [place] [address] 03/29/2023 Office Visit Hematology Oncology Luann De La Cruz MD [address] [place] [address] 03/29/2023 Hem/Onc Treatment Hematology Oncology 06/22/2023 Office Visit Cardiology Leda Myers PA-C [address] [facility] [address] 07/03/2023 Hem/Onc Treatment Hematology Oncology A, Infusion Chair [address] [place] [address] 07/03/2023 Appointment Radiology 07/03/2023 Office Visit Vascular Surgery Robin Burleson MD [address] [place] [address] 07/10/2023 Office Visit Family Medicine Savanah Geiger, DO [address] [place] [address] Pending Results Name Type Priority Associated Diagnoses Date /Time IMMUNOGLOBULIN QUANTITATIVE Lab STAT Multiple myeloma ([facility]) 02/28/2023 11:53 AM EDT SERUM PROTEIN ELECTROPHORESIS REFLEX PROFILE Lab STAT Multiple myeloma ([facility]) 02/28/2023 11:53 AM EDT SERUM FREE LIGHT CHAINS Lab STAT Multiple myeloma ([facility]) 02/28/2023 11:53 AM EDT TSH WITH FREE T4 IF INDICATED Lab STAT Multiple myeloma not having achieved remission ([facility]) 02/28/2023 11:53 AM EDT COMPREHENSIVE METABOLIC PANEL Lab Routine Multiple myeloma not having achieved remission ([facility]) 02/28/2023 11:53 AM EDT CBC WITH WBC DIFFERENTIAL Lab Routine Multiple myeloma not having achieved remission ([facility]) 02/28/2023 11:53 AM EDT CBC Lab Routine Multiple myeloma not having achieved remission ([facility]) 02/28/2023 11:53 AM EDT DIFFERENTIAL, AUTOMATED Lab Routine Multiple myeloma not having achieved remission ([facility]) 02/28/2023 11:53 AM EDT Scheduled [...] Additional history exists CKD HGB USE SMARTSET 25102 02/14/202402/13, 02/13/2023, 02/07/2023, Additional history exists CKD PHOS USE SMARTSET 76178 2024 02/13/2023, 0 02/11/2021 O2 ASSESSMENT COMPLETED IN PAST YEAR FOR COPD 2024 02/13/2023 LUNG CANCER SCREENING - USE SMARTSET 35144 Completed 03/14/2022, 06/03/2020, 05/27/2020, Additional history exists [...] (HCC) documented in this encounter Care Teams Maintenance Director Relationship Specialty Start Date End Date Savanah Geiger DO [address] [place] [address] PCP - General Family Medicine 04/11/12 documented as of this encounter
--- OUTSIDE RECORDS SUMMARY | 2023-08-22 17:33 | External Medical Summary | Summary of Care ---
Author Name Unknown Organization [facility] Address [address] [place] [address] Phone [phone] Care Team Providers Care Immunology Specialist Name Role Phone Savanah Geiger DO Primary Care Provider + [phone] Reason for Visit * Reason Comments Chemotherapy Velcade * Episode Based Medications (Routine) - Authorized Specialty Diagnoses / Procedures Referred By Contnataliia t Referred To Contact Diagnoses Multiple myeloma not having achieved remission (HCC) Procedures UT INJ., VELCADE 0.1 MG Luann De La [facility] [address] [facility] [address] [facility]Onc [place] [address] [address] [place] [address] Referral ID Status Reason Start Date Expiration Date V isits Requested Visits Authorized [id number] Authorized 02/22/2022 09/24/2099 99 99 Encounter Details Date Type Department Care Team Description 03/01/2023 Hem/Onc Treatment Hematology/Oncology Treatment, [place] [address] [place] [address] Tresa Chair [address] Hem On[address] [place] [address] Multiple myeloma not having achieved remission (HCC)* Allergies Active Allergy Reactions Severity Noted Date Comments Calcium Carb-Cholecalciferol 016 documented as of this encounter (statuses as of 03/01/2023) Medications Medication Sig Dispensed Refills Start Date [...] MG Sublingual Tablet Sublingual (Nitrostat)Indicati ons:Atherosclerosis of [place] coronary artery of united [...] as of this encounter (statuses as of 03/01/2023) Active Problems Problem Noted Date Dyslipidemia 03/29/2022 [...] as of this encounter (statuses as of 03/01/2023) Resolved Problems Problem Noted Date Resolved Date [...] as of this encounter (statuses as of 03/01/2023) Immunizations Name Administration Dates Next Due COVID-19 [...] Sign Reading Time Taken Comments Blood Pressure 136/87 03/01/2023 9:20 AM EDT Pulse 78 03/01/2023 9:20 AM EDT Temperature 36.8 C (98.2 F) 03/01/2023 9:20 AM ED T Respiratory Rate 20 03/01/2023 9:20 AM EDT Oxygen Saturation 94% 03/01/2023 9:20 AM EDT Inhaled Oxygen Concentration - - Weight 73.8 kg (162 lb 12.8 oz) 03/01/2023 9:20 AM EDT Height - - Body Mass Index 26.28 01/05/2023 8:34 AM EDT documented in this encounter Nursing Notes * Tayler Guadalupe RN - 03/01/2023 9:46 AM EDT Functional status at today's visit: Restricted in [...] or adverse side effects during treatment. Velcade injection administered. Pt tolerated well. Pt discharged in stable condition. * Tayler Guadalupe RN - 03/01/2023 9:40 AM EDT Ch 9. Pt arrived today for Velcade injection. Pt had labs performed day prior. Cr 1.4, pt has had elevated Cr in the past, pt does not drink as much fluid as he is instructed, along with some intermittent diarrhea. Pt reports he had 5 episodes of diarrhea yesterday, he took 1 imodium tab. He reports he went twice this am and took another tab. Pt instructed to take 2 tabs at first 'liquid diarrhea', but he states he is afraid it will make him very constipated that he does not want to try this. Chemo agents Velcade Appetite fair to good Nausea/Vomiting denies Diarrhea yesterday he had 5x, this am twice Constipation denies Mucositis denies Fatigue denies Bleeding denies Infection denies Rash denies Numbness tingling denies Pain denies Radiation no ABN Labs stable Alt in Tx: no Return in 2 wk documented in this encounter Plan of Treatment Upcoming Encounters Date Type Specialty Care Team Description 03/14/2023 Laboratory Laboratory [place] [address] [place] [address] 03/15/2023 Hem/Onc Treatment Hematology Oncology [place], Chair 4 Hem Onc Scenery [address] [place] [address] 03/23/2023 Scheduled Telephone Pharmacy [facility] Hem/Onc Tech [address] [place] [address] 03/29/2023 Laboratory Laboratory [facility] Scenery [address] [place] [address] 03/29/2023 Office Visit Hematology Oncology Luann De La Cruz MD [address] [place] [address] 03/29/2023 Hem/Onc Treatment Hematology Oncology 06/22/2023 Office Visit Cardiology Leda Myers PA-C [address] [place] [address] 07/03/2023 Hem/Onc Treatment Hematology Oncology A, Infusion Chair [address] [place] [address] 07/03/2023 Appointment Radiology 07/03/2023 Office Visit Vascular Surgery Robin Burleson MD [address] [place] [address] 07/10/2023 Office Visit Family Medicine Savanah Geiger, DO [address] [place] [address] Scheduled Procedures Name Priority Associated [...] Additional history exists CKD PHOS USE SMARTSET 75135 2024 02/13/2023, 0 02/11/2021 O2 ASSESSMENT COMPLETED IN PAST YEAR FOR COPD 2024 02/13/2023 CKD HGB USE SMARTSET 24511 02/29/202402/28, 02/28/2023, 02/13/2023, Additional history exists LUNG CANCER SCREENING - USE SMARTSET 25756 Completed 03/14/2022, 06/03/2020, 05/27/2020, Additional history exists [...] BSA from Recorded weight), Subcutaneous, ONCE, On Mon03/01/23 at 1045, For 1 dose, Caution chemotherapy: Handle with gloves Given 03/01/2023 9:27 AM EDT 2.5 mg Abdomen Left Upper documented in this encounter Care Teams Immunology Specialist Relationship Specialty Start Date End Date Savanah Geiger, [address] [place] [address] PCP - General Family Medicine 04/11/12 documented as of this encounter
--- OUTSIDE RECORDS SUMMARY | 2023-08-22 17:33 | External Medical Summary | Summary of Care ---
Author Name Unknown Organization [facility] Address [address] [place] [address] Phone [phone] Care Team Providers Care Sheet Metal Duct Installer Name Role Phone Savanah Geiger DO Primary Care Provider Reason for Visit * Reason Onset Date Comments Health Maintenance 02/21/2023 Encounter Details Date Type Department Care Team Description 02/21/2023 Telephone [facility] [address] [place] [address] Savanah Geiger DO [address] [place] [address] Health Maintenance Allergies Active Allergy Reactions Severity Noted Date Comments Calcium Carb-Cholecalciferol 016 documented as of this encounter (statuses as of 02/27/2023) Medications Medication Sig Dispensed Refills Start Date [...] MG Sublingual Tablet Sublingual (Nitrostat)Indicati ons:Atherosclerosis of [place] coronary artery of [place] heart without angina pectoris One tablet under [...] as of this encounter (statuses as of 02/27/2023) Active Problems Problem Noted Date Dyslipidemia 03/29/2022 [...] Bladder cancer 04/24/2020 Coronary artery disease involving [place] heart without angina pectoris 05/22/2019 Old myocardial infarct 12/06/2018 S/p bare metal coronary artery stent Tobacco use disorder 04/16/2012 HTN, goal below 130/80 2012 GERD (gastroesophageal reflux disease) 0 2012 documented as of this encounter (statuses as of 02/27/2023) Resolved Problems Problem Noted Date Resolved Date [...] as of this encounter (statuses as of 02/27/2023) Immunizations Name Administration Dates Next Due COVID-19 [...] encounter Miscellaneous Notes * Telephone Encounter - Lashawn Dinero LPN - 02/21/2023 4:11 PM EDT Care Gaps Comprehensive Care Outreach Last Office/Telemedicine Visit: 01/05/2023 (in office), 06/13/2022 (telemedicine) Next Office Visit: 07/10/2023 Hemoglobin AIC Results: No results found for: HEMOGLOBIN A1C Reviewed Health Maintenance below: Health Maintenance Topic Date Due Albumin/Creatinine Ratio Never done Alpha-1 Antitrypsin Never done Hepatitis C Screening Never done DTaP,Tdap,and Td Vaccines (1 - Tdap) Never done Zoster Vaccines (1 of 2) Never done DISCUSS TOBACCO CESSATION (REFER TO SMARTSET #6567) 07/12/2018 COLONOSCOPY-EVERY 3 YRS AGES 18-100 05/23/2020 Depression Screening, Annual for Pts 12 and Over 07/30/2021 COVID-19 Vaccine (4 - Booster for Pfizer series) 10/23/2021 GFR 08/16/2023 Urine already ordered Colon Labs fall already ordered Care Gap Outreach Action Taken: Outreach not indicated documented in this encounter Plan of Treatment Upcoming Encounters Date Type Specialty Care Team Description 03/01/2023 Laboratory Laboratory [place], Lab Scenery [address] [place] [address] 03/01/2023 Pharmacy Pharmacy [facility] Hem/Onc [address] [place] [address] 03/01/2023 Hem/Onc Treatment Hematology Oncology [place], Chair 8 Hem Onc Scenery [address] [place] [address] 03/15/2023 Laboratory Laboratory [place], Lab Scenery [address] [place] [address] 03/15/2023 Hem/Onc Treatment Hematology Oncology [place], Chair 10 Hem Onc Scenery [address] [place] [address] 03/23/2023 Scheduled Telephone Pharmacy [facility] Hem/Onc Tech [address] [place] [address] 03/29/2023 Laboratory Laboratory [place], Lab Scenery [address] [place] [address] 03/29/2023 Office Visit Hematology Oncology Luann De La Cruz MD [address] [place] [address] 03/29/2023 Hem/Onc Treatment Hematology Oncology 06/22/2023 Office Visit Cardiology Leda Myers PA-C [address] [place] [address] 07/03/2023 Hem/Onc Treatment Hematology Oncology A, Infusion Chair [address] [place] [address] 07/03/2023 Appointment Radiology 07/03/2023 Office Visit Vascular Surgery Robin Burleson MD [address] [place] [address] 07/10/2023 Office Visit Family Medicine Savanah Geiger, DO [address] [place] [phone] Scheduled Procedures Name Priority Associated Diagnoses Date/Ti [...] Additional history exists CKD HGB USE SMARTSET 53405 02/14/202402/13, 02/13/2023, 02/07/2023, Additional history exists CKD PHOS USE SMARTSET 79897 2024 02/13/2023, 0 02/11/2021 O2 ASSESSMENT COMPLETED IN PAST YEAR FOR COPD 2024 02/13/2023 LUNG CANCER SCREENING - USE SMARTSET 68730 Completed 03/14/2022, 06/03/2020, 05/27/2020, Additional history exists [...] filedocumented as of this encounter Care Teams Sheet Metal Duct Installer Relationship Specialty Start Date End Date Savanah Geiger, [address] [place] [address] PCP - General Family Medicine 04/11/12 documented as of this encounter
--- OUTSIDE RECORDS SUMMARY | 2023-08-22 17:33 | External Medical Summary ---
Author Name Unknown Address Unknown Organization K01:[facility] - [address] [place] [address] Laboratory Report Ordering Provider Test Date Status MARY ANNE LAGUNA 02/28/2023 11:53:59 Final Observation Date Value Abnormality Reference (Units ) Status IgG 02/28/2023 11:53:59 765 [id number] ( mg/dL) Final IgA 02/28/2023 11:53:59 99 70-400 (mg /dL) Final IgM 02/28/2023 11:53:59 18 Below low normal 40- 230 (mg/dL) Final Performing Location [facility] - [address] [place] [address]
--- OUTSIDE RECORDS SUMMARY | 2023-08-22 17:33 | External Medical Summary | Summary of Care ---
Author Name Unknown Organization [facility] Address [address] [place] [address] Phone [phone] Care Team Providers Care Cinder Crew Worker Name Role Phone GriffinreedSavanah DO Primary Care Provider Reason for Visit * Reason Comments Medication Management Encounter Details Date Type Department Care Team Description 03/01/2023 Pharmacy Pharmacy Hematology Oncology [facility] [address] [place] [address] [facility] Hem/Onc [address] [place], [place] [id number] Multiple myeloma, remission status unspecified ([facility])* Allergies Active Allergy Reactions Severity Noted Date [...] MG Sublingual Tablet Sublingual (Nitrostat)Indicati ons:Atherosclerosis of [place] coronary artery of [place] heart without angina pectoris One tablet under [...] Bladder cancer 04/24/2020 Coronary artery disease involving [place] heart without angina pectoris 05/22/2019 Old myocardial [...] this encounter Progress Notes * Gwen Godfrey, [facility] - 03/01/2023 11:59 AM EDT MEDICATION THERAPY MANAGEMENT LENALIDOMIDE TREATMENT PROGRESS NOTE Brian [place] [phone] Patient Phone Numbers : Val Communication: No answer or answering machine. Will try back at a later time. (VM full) Treatment: Medication: Lenalidomide (Revlimid) Indication: multiple myeloma Dose: 10mg daily D1-14 every 21 days Administration: +/- food Start Date: 04/01/22 Primary Advertising Traffic Manager/Oncologist: Dr. De La Cruz Additional Therapy: Bortezomib [...] 03/09 - 03/22 C12 03/30 - 04/12 (anticipated) Interval History: Per OV 06/22, delay [...] 12/02/22, pt agreeable to resume VRd treatment Per treatment room encounter 03/01/23, pt reports diarrhea and advised to take loperamide 4mg at diarrhea onset and 2mg after each subsequent occurrence (MDD 16mg) Changes to medication list since last visit? No Assessment and Plan: ANC elevated BUN and serum creatinine elevated o Pt advised by Alessandra Guadalupe, treatment room RN, to increase fluid intake All other labs stable Continue current therapy and q2wk labs Assessment of compliance: N/A Assessment of adverse effects attributed to drug therapy: N/A Dose adjustment needed based on lab or adverse drug reaction? No Follow up: 4 weeks OV/labs; 8 weeks MTM Gwen Godfrey, PharmD, BCOP Clinical Pharmacist, [facility] Oral Chemotherapy [facility] 03/01/2023, 12:06 PM Pertinent labs: Latest Reference Range & Units 02/07/23 09:59 02/13/23 08:03 02/28/23 11:53 WBC 4.00 - 10.80 K/uL 9.97 10.11 11.41 (H) HGB 14.0 - 16.8 g/dL 11.1 (L) 11.2 (L) 12.5 (L) HCT 40.0 - 48.4 % 35.5 (L) 35.4 (L) 39.5 (L) MCV 82.0 - 99.5 fL 100.9 100.3 101.5 PLT 140 - 400 K/uL 188 182 262 Absolute Neutrophils 1.80 - 7.70 K/uL 7.49 7.32 9.67 (H) Latest Reference Range & Units 02/07/23 09:59 02/13/23 08:03 02/28/23 11:53 BUN 6 - 20 mg/dL 20 22 (H) 25 (H) Creatinine 0.6 - 1.2 mg/dL 1.3 (H) 1.3 (H) 1.4 (H) Estimated Glomerular Filtration Rate >=60 mL/min 61 62 54 (L) Latest Reference Range & Units 06/16/22 10:41 01/12/23 10:38 02/28/23 11:53 TSH 0.27 - 4.20 uIU/mL 1.56 1.82 1.26 Latest Reference Range & Units 02/07/23 09:59 02/13/23 08:03 02/28/23 11:53 Albumin 3.8 - 5.0 g/dL 3.9 3.7 (L) 4.0 AST 10 - 50 U/L 14 11 13 ALT 10 - 50 U/L 19 16 16 Alkaline Phosphatase 35 - 130 U/L 108 102 116 Bilirubin, Total <=1.2 mg/dL 0.2 0.4 0.4 Suggested labs (multiple myeloma): CBCd q1wk [...] - Medication Requires monitoring Pharmacist Intervention(s): Lab monitoring Magnitude of Intervention: Monitoring with no interventions (Level 0) documented in this encounter Plan of Treatment Upcoming Encounters Date Type Specialty Care Team Description 03/14/2023 Laboratory Laboratory [facility] [address] [place] [address] 03/15/2023 Hem/Onc Treatment Hematology Oncology [place], Chair 4 Hem Onc Scenery [address] [place] [address] 03/23/2023 Scheduled Telephone Pharmacy [facility] Hem/Onc Tech [address] [place] [address] 03/29/2023 Laboratory Laboratory [facility] [address] [place] [address] 03/29/2023 Office Visit Hematology Oncology Luann De La Cruz MD [address] [place] [address] 03/29/2023 Hem/Onc Treatment Hematology Oncology 06/22/2023 Office Visit Cardiology Leda Myers PA-C [address] [facility] [place] [address] 07/03/2023 Hem/Onc Treatment Hematology Oncology A, Infusion Chair [address] [place] [address] 07/03/2023 Appointment Radiology 07/03/2023 Office Visit Vascular Surgery Robin Burleson MD [address] [place] [address] 07/10/2023 Office Visit Family Medicine Savanah Geiger, DO [address] [place] [address] Scheduled Procedures Name Priority Associated Diagnoses Date/Ti [...] Additional history exists CKD PHOS USE SMARTSET 00317 2024 02/13/2023, 0 02/11/2021 CKD HGB USE SMARTSET 12620 02/29/202402/28, 02/28/2023, 02/13/2023, Additional history exists O2 ASSESSMENT COMPLETED IN PAST YEAR FOR COPD 03/01/2024 03/01/2023 LUNG CANCER SCREENING - USE SMARTSET 08490 Completed 03/14/2022, 06/03/2020, 05/27/2020, Additional history exists [...] Primary documented in this encounter Care Teams Cinder Crew Worker Relationship Specialty Start Date End Date Savanah Geiger, [address] [place] [address] PCP - General Family Medicine 04/11/12 documented as of this encounter
--- OUTSIDE RECORDS SUMMARY | 2023-08-22 17:33 | External Medical Summary ---
Author Name Unknown Address Unknown Organization K01[facility] [place] [address] [facility] [place] [address] Laboratory Report Ordering Provider Test Date Status MARY ANNE LAGUNA 02/28/2023 11:53:59 Final Observation Date Value Abnormality Reference (Units ) Status BUN 02/28/2023 11:53:59 25 Above high normal 6-20 (mg/dL) Final Creatinine 02/28/2023 11:53:59 1.4 Above high normal 0.6-1.2 (mg/dL) Final Glomerular filtration rate/1.73 sq M.predicted [Volume Rate/Area] in Serum, Plasma or Blood by Creatinine-based formula (CKD-EPI) 02/28/2023 11:53:59 54 Below low normal >=60 (mL/min) Final eGFR is calculated based on the CKD-EPI 2020 equation SODIUM 02/28/2023 11:53:59 137 135-146 (m mol/L) Final Potassium 02/28/2023 11:53:59 4.7 3.5-5.1 (m mol/L) Final Cl 02/28/2023 11:53:59 103 98-107 (mm ol/L) Final CO2 02/28/2023 11:53:59 21 Below low normal 22- 32 (mmol/L) Final Anion gap 02/28/2023 11:53:59 13 7-15 (mmol /L) Final Glucose 02/28/2023 11:53:59 93 70-120 (mg /dL) Final Albumin 02/28/2023 11:53:59 4.0 3.8-5.0 (g /dL) Final AST (Aspartate aminotransferase) 02/28/2023 11:53:59 13 10-50 (U/L) Fin al Alk Phos 02/28/2023 11:53:59 116 35-130 (U/ L) Final Bilirubin, Total 02/28/2023 11:53:59 0.4 <=1 .2 (mg/dL) Final Calcium 02/28/2023 11:53:59 8.4 8.4-10.2 ( mg/dL) Final Protein 02/28/2023 11:53:59 6.1 6.0-8.3 (g /dL) Final ALT (Alanine aminotransferase) 02/28/2023 11:53:59 16 10-50 (U/L) Andrzej caal Performing Location [facility] [place] [address] [facility] [address]
--- OUTSIDE RECORDS SUMMARY | 2023-08-22 17:33 | External Medical Summary | Summary of Care ---
Author Name Unknown Organization [facility] Address [address] [place] [address] Phone [phone] Care Team Providers Care Foot Piece Assembler Name Role Phone CaseySavanah harry Oswaldo JIMÉNEZ Primary Care Provider Reason for Visit * Reason Onset Date Comments Encounter Created in Error 02/21/2023 Encounter Details Date Type Department Care Team Description 02/21/2023 Scheduled Telephone Pharmacy Hematology Oncology [facility] [address] [place] [address] [facility] Hem/Onc [facility] [address] [place], [place] [phone] Canceled ([place] JUDGE ERROR) Allergies Active Allergy Reactions Severity Noted Date Comments Calcium Carb-Cholecalciferol 016 documented as of this encounter (statuses as of 02/24/2023) Medications Medication Sig Dispensed Refills Start Date [...] MG Sublingual Tablet Sublingual (Nitrostat)Indicati ons:Atherosclerosis of [place] coronary artery of [place] heart without angina pectoris One tablet under [...] as of this encounter (statuses as of 02/24/2023) Active Problems Problem Noted Date Dyslipidemia 03/29/2022 [...] Bladder cancer 04/24/2020 Coronary artery disease involving [place] heart without angina pectoris 05/22/2019 Old myocardial infarct 12/06/2018 S/p bare metal coronary artery stent Tobacco use disorder 04/16/2012 HTN, goal below 130/80 2012 GERD (gastroesophageal reflux disease) 0 2012 documented as of this encounter (statuses as of 02/24/2023) Resolved Problems Problem Noted Date Resolved Date Dehydration 02/01/2021 03/29/2022 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 Atherosclerosis of coronary artery without angin a pectoris 09/14/2018 03/29/2022 ST elevation myocardial infarction (STEMI) 03/2012/06/2018 Lung nodule 10/14/2015 03/29/2022 ST elevation myocardial infa rction (STEMI) involving other coronary artery 05/19/2015 03/20/2017 ST elevation CO (STEMI) 01/12/2015 09/14/20 18 Myocardial infarction 02/03/2014 09/14/2018 COPD, moderate 08/27/2013 08/06/2020 Overview: Per COPD GOLD Classification Noncompliance 03/13/2013 03/21/2017 Anemia 05/03/2012 03/29/2022 COPD, severity to be determined 04/16/2012 08/27/2013 Dyslipidemia, goal LDL below 70 04/16/2012 03/29/2022 documented as of this encounter (statuses as of 02/24/2023) Immunizations Name Administration Dates Next Due COVID-19 [...] Telephone Encounter - Joanna Lezama CPhT - 02/24/2023 3:03 PM EDT Error documented in this encounter Plan of Treatment Upcoming Encounters Date Type Specialty Care Team Description 03/01/2023 Laboratory Laboratory [place], Lab Scenery [address] [place] [address] 03/01/2023 Pharmacy Pharmacy [facility] Hem/Onc [address] [place] [address] 03/01/2023 Hem/Onc Treatment Hematology Oncology [place], Chair 8 Hem Onc Scenery [address] [place] [address] 03/15/2023 Laboratory Laboratory [place], Lab Scenery [address] [place] [address] 03/15/2023 Hem/Onc Treatment Hematology Oncology [place], Chair 10 Hem Onc Scenery [address] [place] [address] 03/23/2023 Scheduled Telephone Pharmacy [facility] Hem/Onc Tech [address] [place] [address] 03/29/2023 Laboratory Laboratory [place], Lab Scenery [address] [place] [address] 03/29/2023 Office Visit Hematology Oncology Luann De La Cruz MD [facility] [place] [address] 03/29/2023 Hem/Onc Treatment Hematology Oncology 06/22/2023 Office Visit Cardiology Leda Myers PA-C [address] [place] [address] 07/03/2023 Hem/Onc Treatment Hematology Oncology A, Infusion Chair [address] [place] [address] 07/03/2023 Appointment Radiology 07/03/2023 Office Visit Vascular Surgery Robin Burleson MD [address] [place] [address] 07/10/2023 Office Visit Family Medicine Savanah Geiger, [address] [place] [address] Scheduled Procedures Name Priority Associated Diagnoses Date/Ti [...] Additional history exists CKD HGB USE SMARTSET 60341 02/14/202402/13, 02/13/2023, 02/07/2023, Additional history exists CKD PHOS USE SMARTSET 91321 2024 02/13/2023, 0 02/11/2021 O2 ASSESSMENT COMPLETED IN PAST YEAR FOR COPD 2024 02/13/2023 LUNG CANCER SCREENING - USE SMARTSET 49269 Completed 03/14/2022, 06/03/2020, 05/27/2020, Additional history exists [...] filedocumented as of this encounter Care Teams Foot Piece Assembler Relationship Specialty Start Date End Date Savanah Geiger, DO [address] [place] [address] PCP - General Family Medicine 04/11/12 documented as of this encounter
--- OUTSIDE RECORDS SUMMARY | 2023-08-22 17:33 | External Medical Summary | Summary of Care ---
Author Name Unknown Organization [facility] Address [address] [place] [address] Phone [phone] Care Team Providers Care Medical Assistant Float Name Role Phone CaseySavanah harry Oswaldo JIMÉNEZ Primary Care Provider [phone] Encounter Details Date Type Department Care Team Description 03/12/2023 Orders Only Hematology/Oncology [facility] [address] [place] [address] Luann De La Cruz MD [address] [place] [address] Allergies Active Allergy Reactions Severity Noted Date Comments Calcium Carb-Cholecalciferol 016 documented as of this encounter (statuses as of 03/12/2023) Medications Medication Sig Dispensed Refills Start Date [...] MG Sublingual Tablet Sublingual (Nitrostat)Indicati ons:Atherosclerosis of [place] coronary artery of [place] heart without angina pectoris One tablet under [...] as of this encounter (statuses as of 03/12/2023) Active Problems Problem Noted Date Dyslipidemia 03/29/2022 [...] Bladder cancer 04/24/2020 Coronary artery disease involving [place] heart without angina pectoris 05/22/2019 Old myocardial infarct 12/06/2018 S/p bare metal coronary artery stent Tobacco use disorder 04/16/2012 HTN, goal below 130/80 2012 GERD (gastroesophageal reflux disease) 0 2012 documented as of this encounter (statuses as of 03/12/2023) Resolved Problems Problem Noted Date Resolved Date [...] as of this encounter (statuses as of 03/12/2023) Immunizations Name Administration Dates Next Due COVID-19 [...] Specialty Care Team Description 03/14/2023 Laboratory Laboratory Reji Villegas [address] [place] [address] 03/15/2023 Hem/Onc Treatment Hematology Oncology [place], Chair 4 Hem Onc Scenery [address] [place] [address] 03/23/2023 Scheduled Telephone Pharmacy [facility] Hem/Onc Tech [address] [place] [address] 03/29/2023 Laboratory Laboratory Tresa [facility] [address] [place] [address] 03/29/2023 Office Visit Hematology Oncology Luann De La Cruz MD [address] [place] [address] 03/29/2023 Hem/Onc Treatment Hematology Oncology 04/26/2023 Pharmacy Pharmacy [facility] Hem/Onc [address] [place] [address] 06/22/2023 Office Visit Cardiology Leda Myers PA-C [address] [place] [address] 07/03/2023 Hem/Onc Treatment Hematology Oncology A, Infusion Chair [address] [place] [address] 07/03/2023 Appointment Radiology 07/03/2023 Office Visit Vascular Surgery Robin Burleson MD [address] [place] [address] 07/10/2023 Office Visit Family Medicine Savanah Geiger, DO [address] [place] [address] Scheduled Procedures Name Priority Associated Diagnoses Date/Ti [...] Additional history exists CKD PHOS USE SMARTSET 90143 2024 02/13/2023, 0 02/11/2021 CKD HGB USE SMARTSET 36963 02/29/202402/28, 02/28/2023, 02/13/2023, Additional history exists O2 ASSESSMENT COMPLETED IN PAST YEAR FOR COPD 03/01/2024 03/01/2023 LUNG CANCER SCREENING - USE SMARTSET 62042 Completed 03/14/2022, 06/03/2020, 05/27/2020, Additional history exists [...] filedocumented as of this encounter Care Teams Medical Assistant Float Relationship Specialty Start Date End Date Savanah Geiger, DO [address] [place], [place] [id number] PCP - General Family Medicine 04/11/12 documented as of this encounter
[2023-08-22] MEDS: SODIUM CHLORIDE 0.9% 1,000 ML IV SCH (18:27)
[2023-08-22] MEDS ORDERED: REMDESIVIR 200 MG in SODIUM CHLORIDE 0.9% 210 ML IV ONE (19:00)
--- NOTE | 2023-08-22 19:03 | CT Scan Report ---
CT chest diagnostic wo con CT DOSE: 420.11 mGy.cm CLINICAL HISTORY: 73 years-old Male with acute hypoxiz resp failure, dyspnea. Acute respiratory fail ure TECHNIQUE: Multiaxial CT images of the chest were performed without contrast. A dose lowering techni que was utilized adhering to the principles of ALARA. COMPARISON: Chest CT of same day, CT chest 04/25/2020 FINDINGS: Unremarkable thyroid. No lymphadenopathy. Mild cardiomegaly with extensive coronary artery calcifications. Mild dilation of the ascending thoracic aorta at the level of the main pulmonary wali ry, 4.3 cm. This is unchanged from prior. Some chronic pleural thickening. Severe pulmonary emphysema . Subpleural fibrotic changes are noted along with patchy subpleural groundglass densities in the mid to lower lung zones, right greater than left. Stable solid nodules in the left lower lobe measure up to 5 mm. Central airways are patent. Cholecystectomy. Bilateral perinephric stranding. There are a few hepatic cysts noted. No acute fract ure. Degenerative changes of the shoulders and spine with chronic appearing thoracic compression defo rmities. IMPRESSION: 1. Severe emphysema with mid to lower lung zone predominate patchy peripheral groundglass densities w hich are likely infectious or inflammatory such as viral pneumonia. 2. Stable pleural-parenchymal scarring with fibrotic changes and stable low suspicion solid pulmonary nodules. 3. No lymphadenopathy. 4. Unchanged fusiform dilation of the ascending thoracic aorta, 4.3 cm. ACT 112: Negative or not required by law. Electronically signed by: Quirino Soto M.D. 08/22/2023 7:00 PM
[2023-08-22] MEDS: CEFEPIME 2,000 MG in SYRINGE 0 ML IV SCH (19:11)
[2023-08-22] MEDS: ALBUT/IPRATROP 3MG/0.5MG NEB 3 ML VIAL NEB SCH ×2 (19:11→22:17)
[2023-08-22] MEDS ORDERED: PANTOprazole 40 MG TAB ONE (19:51)
[2023-08-22] MEDS: METOPROLOL TARTRATE 50 MG TAB PO SCH (20:08)
[2023-08-22] MEDS: CALCIUM 600MG + VIT D 400 IU TAB PO SCH (20:08)
[2023-08-22] MEDS: ATORVASTATIN 40 MG TAB PO SCH (20:08)
[2023-08-22] MEDS: ENOXAPARIN INJ 40 MG/0.4 ML SYR SQ SCH (20:10)
[2023-08-22] MEDS: MIRTAZAPINE TAB 15 MG TAB PO SCH (22:17)
[2023-08-23 01:59] LABS: Appearance Urine Cloudy (Clear); Bacteria Urine Automated Negative (Negative); Bilirubin Urine Negative (Negative); Blood Urine Trace (Negative); Color Urine Yellow; Epithelial Cell Urine Auto >30 /lpf (0-5); Glucose Urine UA Negative (Negative); Ketones Urine Negative (Negative); Leukocyte Esterase Urine Negative (Negative); Nitrite Urine Negative (Negative); Protein Urine 1+ (Negative); RBC Urine Automated 0-4 /hpf (0-4); Specific Gravity Urine 1.023 (1.000-1.030); Urobilinogen Urine Negative (Negative)
[2023-08-23 02:21] LABS: Renal Epithelial Cells Urine 0-5 /lpf (0-5)
[2023-08-23] MEDS: ALBUT/IPRATROP 3MG/0.5MG NEB 3 ML VIAL NEB SCH ×2 (02:30→07:57)
--- OUTSIDE RECORDS SUMMARY | 2023-08-23 02:36 | External Medical Summary | Summary of Care ---
Author Name Unknown Organization [facility] Address [address] [place] [address] Phone [phone] Care Team Providers Care Project Specialist Name Role Phone Savanah Geiger Oswaldo JIMÉNEZ Primary Care Provider [phone] Reason for Visit * Reason Comments Acute COVID symptoms Encounter Details Date Type Department Care Team (Latest Contact Info) Description 08/21/2023 2:40 PM EST Office Visit [facility] [address] [place] [phone] May, Ashok Paredes MD [address] [place] [address] Risk and functional assessment*; Viral gastroenteritis; COPD exacerbation (HCC); COPD, group B, by GOLD 2017 classification (HCC); HTN, goal below 130/80 Allergies Active Allergy Reactions Criticality Noted Date Comments Calcium Carb-Cholecalciferol 016 documented as of this encounter (statuses as of 08/22/2023) Medications Medication Sig Dispensed Refills Start Date [...] MG Sublingual Tablet Sublingual (Nitrostat)Indication s:Atherosclerosis of [place] coronary artery of [place] heart without angina pectoris One tablet under [...] the morning. 90 Tablet 3 08/19/2023 Active predniSONE 20 MG Oral Tablet (Deltasone)Indication s:COPD exacerbation (HCC) Take 2 Tablets by mouth in the morning for 5 days. 10 Tablet 0 08/21/2023 3 Active Azithromycin 250 MG Oral Tablet (Zithromax)Indication s:COPD exacerbation (HCC) Take 2 tabs by mouth on the first day, then 1 tab daily on days two through five 6 Tablet 0 08/21/2023 3 Active Loperamide HCl 2 MG Oral Tablet (Imodium A-D)Indications:Viral gastroenteritis Take 2 Tablets by mouth once for 1 dose. Then one tablet after each loose BM, no more than 4 tablets per day for up to two days 18 Tablet 0 08/21/2023 3 documented as of this encounter (statuses as of 08/22/2023) Active Problems Problem Noted Date Diagnosed Date [...] cancer 04/24/2020 Coronary artery disease invo lving [place] heart without angina pectoris 05/22/2019 Old myocardial infarct 12/06/2018 S/p bare metal coronary artery stent 01/12/2015 Tobacco use disorder 04/16/2012 HTN, goal below 130/80 2012 GERD (gastroesophageal reflux disease) 2 documented as of this encounter (statuses as of 08/22/2023) Resolved Problems Problem Noted Date Diagnosed Date Resolved Date Coronary artery disease of n ative artery of [place] heart with stable angina pectoris 08/21/2023 08/21/2023 Dehydration 02/01/2021 03/29/2022 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 Atherosclerosis of coronary artery without angina pectoris 09/14/2018 03/29/2022 ST elevation myocardial infarction (STEMI) 03/20/2017 12/06/2018 Lung nodule 10/14/2015 03/29/2022 ST elevation myocardial infa rction (STEMI) involving other coronary artery 05/19/2015 03/20/[address] elevation [place] (STEMI) 01/12/201508/26 Myocardial infarction 02/03/20142017 COPD, moderate 08/27/2013 08/06/2020 Overview: Per COPD GOLD Classification Noncompliance 03/13/2013 03/21/2017 Anemia 05/03/2012 03/29/2022 COPD, severity to be determined 04/16/2012 08/27/2013 Dyslipidemia, goal LDL below 70 04/16/2012 03/29/2022 documented as of this encounter (statuses as of 08/22/2023) Immunizations Name Administration Dates Next Due COVID-19 mRNA, LNP-s, No Pre serve, 2-Dose Series ([employer]) 08/28/2021,02/18/2021,01/28/2021 Pneumococcal Conjugate Vacc, 13 Valent (Prevnar) [...] 10 times. Repeat this throughout the day. [employer] Patient Education Copyright 2008 - 2010 [employer] except where otherwise noted. Preventing Falls: Moving [...] on a stepstool. [employer] Patient Education Copyright 2009 - 2010 [employer] except where otherwise noted. [...] group B, dyslipidemia, AAA, hypertension, history of PA, CKD stage IIIA, GERD who presents for [...] separately billed services. documented in this encounter Procedure Notes * Rodolfo Rudolph DO - 08/21/2023 3:18 PM ESTAssociated Order(s): EKG REASON FOR STUDY: shortness of breath, intermittent chest pain CONCLUSIONS: Sinus rhythm with Premature atrial complexes Nonspecific ST abnormality Abnormal ECG When compared with ECG of 15-AUG-2022 09:57, Premature atrial complexes are now Present Ventricular Rate: 78 Atrial Rate: 78 OH Interval: 184 QRS Duration: 94 QT/QTc: 400/456 ms P-R-T Anthony: 65 : 5 : 72 degrees documented in this encounter Nursing Notes * Kendra Tijerina LPN - 08/21/2023 2:52 PM EST The patient has been properly identified by confirmation of name and date of . Chief Complaint Patient presents with Acute COVID symptoms Poor appetite, weakness, fatigue, painful to walk, chest pains, "fluid drive", congestion, sore throat, vomiting, diarrhea, Denies headaches, documented in this encounter Miscellaneous Notes * Result Encounter Note - Ashok Hurtado MD - 08/22/2023 9:30 AM EST COVID positive. Immunocompromised. Recommended ED earlier today as discussed with due to BREANN and ongoing diarrhea. Ashok uHrtado MD * Result Encounter Note - Ashok Hurtado MD - 08/22/2023 8:54 AM EST Reviewed with patient in office. Ashok Hurtado MD documented in this encounter Plan of Treatment Upcoming Encounters Date Type Department Care Team (Late st Contact Info) Description 08/23/2023 3:30 PM EST Office [facility] [place] [address] Brian Hager MD [address] [place] [address] 08/25/2023 6:00 PM EST Scheduled Telephone Pharmacy Hematology Oncology [address] [address] [facility] Hem/Onc Tech [facility] [place] [address] 08/29/2023 11:00 AM EST Laboratory Laboratory, [address] [phone] [address] 08/30/2023 9:00 AM EST Pharmacy Pharmacy Hematology Oncology [address] [address] [facility] Hem/Onc [address] [place] [address] 08/30/2023 11:30 AM EST Hem/Onc Treatment Hematology/Oncology Treatment, [place] [address] [place] [address] Tresa, Chair 7 Hem Onc Scenery [address] [place] [address] 09/07/2023 12:30 PM EST Hem/Onc Treatment Hematology Oncology [address] [address] G, Infusion Chair [address] [place] [address] 09/07/2023 2:30 PM EST Appointment Radiology, [place] [address] [place] [phone] 09/07/2023 2:30 PM EST Appointment Radiology, [place] [address] [place] [address] 09/07/2023 4:00 PM EST Office Visit Vascular [facility], [place] [address] [place] [address] Robin Burleson MD [address] [place] [address] 09/12/2023 10:30 AM EST Laboratory Laboratory, [address] [phone] [facility] [address] [place] [address] 09/13/2023 10:15 AM EST [facility] [address] [place] [address] Tresa, Chair 3 Hem Onc Scene [address] [facility] [place] [address] 09/26/2023 10:30 AM EST Laboratory Laboratory, [address] [phone] [facility] [address] [place] [address] 09/27/2023 10:00 AM EST Office Visit Hematology/Oncology [address] [place] [address] [facility] [address] Luann De La Cruz MD [address] [place] [address] 09/27/2023 10:30 AM EST Hem/Onc Treatment Hematology/Oncology Treatment, [place] [address] [place] [address] Tresa, Chair 11 Hem Onc Scenery [address] [place] [address] 10/20/2023 10:30 AM EST Office Visit Cardiology, [facility] [address] [place] [address] Leda Myers, JUANITA [address] [facility] [place] [address] 10/30/2023 10:50 AM EST Office Visit Ophthalmology, [facility] [address] [facility] [place] [address] Kana Frost, DO [address] [place] [address] 01/12/2024 10:10 AM EDT Office Visit [place] [address] [place] [address] Savanah Geiger, [address] [place] [address] Scheduled Procedures Name Priority Associated Diagnoses Date/Ti me COLONOSCOPY FLEXIBLE PROXIMAL DIAGNOSTIC Recall History of colon polyps Health Maintenance Due Date Last Done Comments Albumin/Creatinine Ratio 02/13/1970 Alpha-1 Antitrypsin 02/13/1970 Hepatitis C Screening 02/13/1970 DTaP,Tdap,and Td Vaccines (1 - Tdap) 02/13/1971 Zoster Vaccines (1 of 2) 02/13/1971 DISCUSS TOBACCO CESSATION (REFER TO SMARTSET #6955) 07/12/2018 07/12/2017 (Course Completed) COLONOSCOPY-EVERY 3 YRS AGES 18-100 05/23/2020 05/23/2017 Depression Screening 07/30/2021 07/30/2020, 07/12/2017 (Declined) COVID-19 Vaccine ( season) 2023 08/28/2021, 02/18/2021, 01/28/2021 CKD PHOS USE SMARTSET 89629 2024 02/13/2023, 0 02/11/2021 GFR 02/19/2024 08/21/2023, 1109/2022, 07/18/2023, Additional history exists O2 ASSESSMENT COMPLETED IN PAST YEAR FOR COPD 08/16/2024 08/21/2023 CKD HGB USE SMARTSET 07833 08/21/202408/21, 08/21/2023, 08/15/2023, Additional history exists LUNG CANCER SCREENING - USE SMARTSET 05732 Completed 03/14/2022, 06/03/2020, 05/27/2020, Additional history exists [...] Procedure Name Priority Date/Time Associated Diagnosis Comments INFLUENZA A/B RSV SARS-COV2,PCR Routine 08/21/2023 3:55 PM EST Viral gastroenteritis COPD exacerbation (HCC) OH ECG ROUTINE ECG W/LEAST 12 LDS I&R ONLY Routine 08/21/2023 3:18 PM EST COPD exacerbation (HCC) documented in this encounter Results * (ABNORMAL) INFLUENZA A/B RSV SARS-COV2,PCR (08/21/2023 3:55 PM EST) SARS-CoV-2 (COVID-19) Result Positive(A) Negative 08/22/2023 9:03 AM EST LABORATORY [facility] Comment: SARS-CoV2 Coronavirus RNA detected by PCR (amplified probe). Test results reported to [facility]. This express test was developed and its performance characteristics determined by [facility]. It has not been cleared or approved [...] (RT-PCR) test, or a Centers for Disease Control- acceptable equivalent. The test is performed in a high complexity Clinical Laboratory Improvement Amendments-(CLIA) certified laboratory. The test is acceptable for SARS-CoV-2 diagnosis, surveillance, and travel within the [place] and to most countries. Please check with local testing authorities about requirements before travel. The validation of bronchial specimens, tracheal aspirates, and sputum for this assay was developed and performance characteristics determined by [facility]. The validation of alternate specimen types has not been cleared or approved by the U.S. Food and Drug Administration (FDA). It has been determined that such clearance is not necessary. Influenza A PCR Result Negative Negative 08/22/2023 9:03 AM EST LABORATORY [facility] Comment:No Influenza A RNA d etected by PCR (amplified probe) Influenza B PCR Result Negative Negative 08/22/2023 9:03 AM EST LABORATORY [facility] Comment:No Influenza B RNA d etected by PCR (amplified probe) RSV PCR Result Negative Negative 08/22/2023 9:03 AM EST LABORATORY [facility] Comment:No Respiratory Syncy tial Virus RNA detected by PCR (amplified probe) Upper Respiratory Mid-turbinate nasal swab / Unknown Non-blood Collection / Unknown 08/21/2023 3:55 PM EST 08/21/2023 3:55 PM EST Ashok Hurtado MD LAB MICRO - GENERAL ORDERABLES LABORATORY [facility] [address] [place] [address] * MAGNESIUM (08/21/2023 3:33 PM EST) Magnesium 2.1 1.5 - 2.6 mg/dL 08/22/2023 12:28 AM EST LABORATORY [facility] Blood Venous blood specimen / Unknown Venipuncture / Unknown 08/21/2023 3:33 PM EST 08/21/2023 3:33 PM EST Ashok Hurtado MD LAB BLOOD ORDERABLES LABORATORY [facility] [address] [place] [address] * EKG (08/21/2023 3:18 PM EST) 08/21/2023 3:18 PM EST Narrative Procedure Note Rodolfo Rudolph DO - 08/21/2023 3:18 PM EST REASON FOR STUDY: shortness of breath, intermittent chest pain CONCLUSIONS: Sinus rhythm with Premature atrial complexes Nonspecific ST abnormality Abnormal ECG When compared with ECG of 15-AUG-2022 09:57, Premature atrial complexes are now Present Ventricular Rate: 78 Atrial Rate: 78 OH Interval: 184 QRS Duration: 94 QT/QTc: 400/456 ms P-R-T Anthony: 65 : 5 : 72 degrees Ashok Hurtado MD EKG Performing Organization Address [facility] Co de Phone Number [facility] CARDIOLOGY documented in this encounter Visit Diagnoses Diagnosis Risk and functional assessment- Primary Screening for unspecified condition Viral gastroenteritis Intestinal infection due to other organism, not elsewhere classified COPD exacerbation (HCC) Obstructive chronic bronchitis with exacerbation COPD, group B, by GOLD 2017 classification (HCC) HTN, goal below 130/80 Unspecified essential hypertension documented in this encounter Care Teams Project Specialist Relationship Specialty Start Date End Date Savanah Geiger DO [address] [place] [address] PCP - General Family Medicine 04/11/12 documented as of this encounter
[2023-08-23] MEDS: CEFEPIME 2,000 MG in SYRINGE 0 ML IV SCH ×2 (06:05→18:14)
[2023-08-23 07:17] LABS: Basophils # (auto) 0.01 K/uL (0.00-0.20); Basophils % (auto) 0.2 %; Hematocrit (blood only) 32.7 % (42.0-52.0); Hemoglobin 10.7 g/dl (14.0-18.0); Immature Granulocytes # (auto) 0.06 K/uL (0.01-0.20); Immature Granulocytes % (auto) 1.2 %; Lymphocytes # (auto) 0.62 K/uL (1.20-3.40); Mean Corpuscular Hemoglobin 30.5 pg (25.0-34.0); Mean Corpuscular Hgb Conc 32.7 g/dL (32.0-36.0); Mean Corpuscular Volume 93.2 fL (80.0-100.0); Monocytes # (auto) 1.09 K/uL (0.11-0.59); Monocytes % (auto) 21.1 %; Neutrophils # (auto) 3.38 K/uL (1.40-6.50); Neutrophils % (auto) 65.5 %; Platelet Count 141 K/uL (130-400); RDW Coefficient of Variation 15.8 % (11.5-14.5); RDW Standard Deviation 53.6 fL (36.4-46.3); Red Blood Count 3.51 M/uL (4.70-6.10); White Blood Count 5.16 K/ul (4.8-10.8)
[2023-08-23 07:42] LABS: Albumin Globulin Ratio 1.5 (0.9-2); Albumin Level 3.3 gm/dl (3.4-5.0); BUN Creatinine Ratio 22.7 (10-20); Bilirubin,Total 0.3 mg/dl (0.2-1.0); Calcium 7.8 mg/dl (8.6-10.3); Creatinine Clr Calc Pharmacy 32.7 ml/min; Est GFR (African American) 35.4 ml/min; Est GFR (Non-African American) 30.6 ml/min; Globulin 2.2 gm/dl (2.5-4.0); Magnesium 1.9 mg/dl (1.7-2.4); Phosphorus 5.1 mg/dl (2.5-4.9); Potassium 3.9 mmol/L (3.5-5.1); Total Protein 5.5 gm/dl (6.0-8.3)
[2023-08-23 08:25] LABS: Estimated Average Glucose 123 mg/dl; Hemoglobin A1C 5.9 % (4.5-5.6)
[2023-08-23] MEDS: AZITHROMYCIN 250 MG TAB PO SCH (08:43)
[2023-08-23] MEDS: ASPIRIN 81 MG ECTAB PO SCH (08:44)
[2023-08-23] MEDS: ADVANCED PROBIOTIC 1250 MG CAPSULE PO SCH (08:45)
[2023-08-23] MEDS ORDERED: PANTOprazole 40 MG TAB PO SCH (09:00)
[2023-08-23] MEDS ORDERED: dexAMETHasone 6 MG in SYRINGE 0 ML IV SCH (09:00)
[2023-08-23] MEDS ORDERED: dexAMETHasone 4 MG TAB PO SCH (09:00)
[2023-08-23] MEDS: METOPROLOL TARTRATE 50 MG TAB PO SCH ×2 (09:58→20:09)
[2023-08-23] MEDS ORDERED: PANTOprazole 40 MG TAB PO ONE (10:15)
[2023-08-23] MEDS ORDERED: ALBUT/IPRATROP 3MG/0.5MG NEB 3 ML VIAL NEB PRN (10:37)
[2023-08-23] MEDS: SODIUM CHLORIDE 0.9% 1,000 ML IV SCH ×2 (11:43→23:49)
--- NOTE | 2023-08-23 11:48 | Electrocardiogram Report ---
Test Reason : Blood Pressure : / mmHG Vent. Rate : 083 BPM Atrial Rate : 000 BPM P-R Int : 000 ms QRS Dur : 094 ms QT Int : 376 ms P-R-T Axes : 000 010 089 degrees QTc Int : 441 ms Atrial fibrillation Minimal voltage criteria for LVH, may be normal variant Abnormal ECG When compared with ECG of 19-JUL-2022 09:13, Atrial fibrillation has replaced Sinus rhythm Criteria for Inferior infarct are no longer Present T wave inversion now evident in Lateral leads Confirmed by Chris Kline ([id number]) on 08/23/2023 11:48:18 AM Referred By: REFERRED SELF Confirmed By:Marquis Kline
--- NOTE | 2023-08-23 15:36 | Hospitalist Progress Note ---
Date of Service August 23, 2023 Assessment & Plan (1) Acute hypoxic respiratory failure: (2) COVID: (3) COPD exacerbation: (4) Hyponatremia: (5) Multiple myeloma: (6) GERD (gastroesophageal reflux disease): (7) Hypertension: (8) Abdominal aortic aneurysm: Plan Pt is a 73yoM with a PMHx significant for CAD s/p stent placement, AAA, PVD, paroxysmal atrial flutter, hypertension, hyperlipidemia, multiple myeloma with ongoing chemotherapy, bladder cancer s/p surgery, CKD (baseline creatinine 1.3- 1.5), chronic anemia (baseline hemoglobin of 10), ongoing tobacco abuse admitted with acute hypoxic respiratory failure in the setting of a covid infection. Acute hypoxic respiratory failure COVID infection COPD Exacerbation Pneumonia Pt states that he started having SOB 3 days ago with copious amounts of diarrhea Saw his pcp yesterday who did bloodwork and tested him for covid, started him on azithromycin and prednisone for a COPD exacerbation. Was advised to present to the ED for further evaluation Hypoxic to the 80s on RA with activity COVID + on testing, pt states he was vaccinated originally procal not elevated Chest XRAY with patchy R midlung opacity, chest CT noting viral pneumonia changes, stable pulm nodules. Pt with contrast allergy, d-dimer ordered and elevated. V/Q scan repeatedly declined by pt. Oxygen supplementation as needed, does not use oxygen at baseline. Pt received a dose of Decadron 6mg in the ED on admission. He is on decadron 20mg qweekly for Multiple Myeloma treatment and due for dose 08/23. Continue with Decadron 20mg dose on 08/23 for MM. Consider continuing IV Decadron 6mg daily afterwards. Hold home prednisone Start remdesivir, monitor liver enzymes(AST, ALT) for the 5 days while on medication Continue Cefepime and azithromycin- pt received a dose of azithromycin 500mg in the ED, continue for 2 more doses. pt has been declining cefepime doses. Consider pulmonology consult BREANN Pt with significant diarrhea Cr elevated to 2.14, improving slowly. Baseline 1.3-1.5 NSS @80 Avoid nephrotoxic meds, IV contrast Elevated trop Pt with elevated trop at 69.9 --> 50.5 Echo with EF 55-60%, inf wall scar and hypokinesis, moderate aortic valve sclerosis w/o sig stenosis, mod aortic root dilatation, mild aortic regurg, mod mitral regurg Consider Cardiology eval Hyponatremia Likely due to dehydration IV fluids as noted above Monitor with AM labs Abdominal and thoracic anuerysms Pt with noted thoracic aneurysm >4cm on CT chest Chart review shows CT abd/pelvis from 2021 noted abdominal anuerysm as well Vascular and PCP followup after discharge Multiple Myeloma Continue with Decadron 20mg weekly dose on 08/23 Continue Revlimid- pt states due for next cycle of 14 days on 08/24 stable Hx of bladder cancer S/p surgery and BCG Rx Stable HLD Continue home statin Atrial Fibrillation HTN Continue home metoprolol Pt not currently on anticoagulation GERD Continue home ppi Appetite and Mood Continue home remeron Tobacco use disorder 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 Has been refusing abx and vq scan. agreeable after discussion today. later told by nursing refusing lovenox. Review of Systems Review of Systems: All systems reviewed & are unremarkable except as noted in Subjective Physical Exam Physical Exam: General: Alert, oriented. No acute distress, NC in nares Psych: Appropriate mood and affect Neuro: Difficulty with movements in the bed HEENT: NC/AT Chest: Nontender to palpation. CV: Irregular Resp: Breath sounds decreased bilaterally, no increased effort of breathing. Abdomen: Soft, nontender, nondistended. Extremities: No edema in lower extremities bilaterally. Results & Data Results & Data Vital Signs (Past 12 Hours) Vital Signs Temp Pulse Pulse Pulse Resp BP Pulse Ox 08/23/23 15:17 36.4 C L 80 20 117/75 95 08/23/23 14:35 08/23/23 11:44 36.7 C 71 16 101/69 98 08/23/23 08:35 08/23/23 08:27 36.4 C L 83 16 114/78 99 08/23/23 08:04 78 22 93 08/23/23 05:57 72 Pulse Ox O2 Del Method O2 Flow Rate O2 Flow Rate 08/23/23 15:17 Nasal Cannula 2 08/23/23 14:35 98 2 08/23/23 11:44 Nasal Cannula 2 08/23/23 08:35 Nasal Cannula 2 08/23/23 08:27 Nasal Cannula 2 08/23/23 08:04 Nasal Cannula 2 08/23/23 05:57 (5) Multiple myeloma Multiple myeloma remission status: unspecified Qualified Code(s): C90.00 - Multiple myeloma not having achieved remission
[2023-08-23] MEDS: ENOXAPARIN INJ 40 MG/0.4 ML SYR SQ SCH (18:11)
[2023-08-23] MEDS: PANTOprazole 40 MG TAB PO SCH (20:08)
[2023-08-23] MEDS: ATORVASTATIN 40 MG TAB PO SCH (20:10)
[2023-08-23] MEDS: CALCIUM 600MG + VIT D 400 IU TAB PO SCH (20:10)
[2023-08-23] MEDS: MIRTAZAPINE TAB 15 MG TAB PO SCH (20:11)
[2023-08-23] MEDS: REMDESIVIR 100 MG in SODIUM CHLORIDE 0.9% 230 ML IV SCH (23:02)
[2023-08-23] MEDS: DICLOFENAC SOD 1% GEL 100 GM TUBE EXT PRN (23:48)
--- NOTE | 2023-08-24 08:52 | Hospitalist Progress Note ---
Date of Service August 24, 2023 Assessment & Plan (1) Acute hypoxic respiratory failure: (2) COVID: (3) COPD exacerbation: (4) Hyponatremia: (5) Multiple myeloma: (6) GERD (gastroesophageal reflux disease): (7) Hypertension: (8) Abdominal aortic aneurysm: Plan Pt is a 73yoM with a PMHx significant for CAD s/p stent placement, AAA, PVD, paroxysmal atrial flutter, hypertension, hyperlipidemia, multiple myeloma with ongoing chemotherapy, bladder cancer s/p surgery, CKD (baseline creatinine 1.3- 1.5), chronic anemia (baseline hemoglobin of 10), ongoing tobacco abuse admitted with acute hypoxic respiratory failure in the setting of a covid infection. Acute hypoxic respiratory failure COVID infection COPD Exacerbation Pneumonia Pt states that he started having SOB 3 days ago with copious amounts of diarrhea Saw his pcp yesterday who did bloodwork and tested him for covid, started him on azithromycin and prednisone for a COPD exacerbation. Was advised to present to the ED for further evaluation Hypoxic to the 80s on RA with activity COVID + on testing, pt states he was vaccinated originally procal not elevated Chest XRAY with patchy R midlung opacity, chest CT noting viral pneumonia changes, stable pulm nodules. Pt with contrast allergy, d-dimer ordered and elevated. V/Q scan repeatedly declined by pt. Oxygen supplementation as needed, does not use oxygen at baseline. Pt received a dose of Decadron 6mg in the ED on admission. He is on decadron 20mg qweekly for Multiple Myeloma treatment and due for dose 08/23. Continue with Decadron 20mg dose on 08/23 for MM. Consider continuing IV Decadron 6mg daily afterwards. Hold home prednisone Start remdesivir, monitor liver enzymes(AST, ALT) for the 5 days while on medication Continue Cefepime and azithromycin- pt received a dose of azithromycin 500mg in the ED, continue for 2 more doses. pt originally declining cefepime doses, currently taking. Consider pulmonology consult BREANN Pt with significant diarrhea Cr elevated to 2.14 on admission, improving slowly. Baseline 1.3-1.5 NSS @80 Avoid nephrotoxic meds, IV contrast Continue to monitor Elevated trop Pt with elevated trop at 69.9 --> 50.5 Echo with EF 55-60%, inf wall scar and hypokinesis, moderate aortic valve sclerosis w/o sig stenosis, mod aortic root dilatation, mild aortic regurg, mod mitral regurg Consider Cardiology eval Hyponatremia Likely due to dehydration IV fluids as noted above Improving Monitor with AM labs Abdominal and thoracic aneurysms Pt with noted thoracic aneurysm >4cm on CT chest Chart review shows CT abd/pelvis from 2021 noted abdominal anuerysm as well Vascular and PCP followup after discharge Multiple Myeloma Continue with Decadron 20mg weekly dose on 08/23 Continue Revlimid- pt states due for next cycle of 14 days on 08/24 stable Hx of bladder cancer S/p surgery and BCG Rx Stable HLD Continue home statin Atrial Fibrillation HTN Continue home metoprolol Pt not currently on anticoagulation GERD Continue home ppi Appetite and Mood Continue home remeron Tobacco use disorder Pt states that he quit smoking 2 days [employer]IL [employer] Encourage cessation Prediabetes Pt with hgba1c of 5.9 Stable CODE STATUS: Full code DVT prophylaxis: Lovenox SQ Diet: HH Dispo: Med/Surg with tele Admission and Anticipated Discharge Date Admission Date: August 22, 2023 Subjective Pt seen this AM. Was trying to eat. States that he is starting to feel better. Denied acute concerns, agreeable to taking medications today. Review of Systems Review of Systems: All systems reviewed & are unremarkable except as noted in Subjective Physical Exam Physical Exam: General: Alert, oriented. No acute distress, NC in nares Psych: Appropriate mood and affect Neuro: Difficulty with movements in the bed HEENT: NC/AT Chest: Nontender to palpation. CV: Irregular Resp: Breath sounds decreased bilaterally, no increased effort of breathing. Abdomen: Soft, nontender, nondistended. Extremities: No edema in lower extremities bilaterally. Results & Data Results & Data Vital Signs (Past 12 Hours) Vital Signs Temp Pulse Pulse Resp BP Pulse Ox O2 Del Method 08/24/23 04:16 36.4 C L 70 22 136/74 98 Nasal Cannula 08/24/23 00:00 84 08/23/23 23:56 36.7 C 87 18 124/85 99 Nasal Cannula O2 Flow Rate 08/24/23 04:16 2 08/24/23 00:00 08/23/23 23:56 2 (5) Multiple myeloma Multiple myeloma remission status: unspecified Qualified Code(s): C90.00 - Multiple myeloma not having achieved remission
[2023-08-24] MEDS: CEFEPIME 2,000 MG in SYRINGE 0 ML IV SCH ×2 (09:43→21:02)
[2023-08-24] MEDS: SODIUM CHLORIDE 0.9% 1,000 ML IV SCH (09:43)
[2023-08-24] MEDS: ADVANCED PROBIOTIC 1250 MG CAPSULE PO SCH (09:44)
[2023-08-24] MEDS: AZITHROMYCIN 250 MG TAB PO SCH (09:44)
[2023-08-24] MEDS: ASPIRIN 81 MG ECTAB PO SCH (09:44)
[2023-08-24] MEDS: PANTOprazole 40 MG TAB PO SCH ×2 (09:44→21:04)
[2023-08-24 09:50] LABS: Hematocrit (blood only) 30.1 % (42.0-52.0); Hemoglobin 9.9 g/dl (14.0-18.0); Immature Granulocytes # (auto) 0.12 K/uL (0.01-0.20); Immature Granulocytes % (auto) 1.9 %; Lymphocytes # (auto) 0.54 K/uL (1.20-3.40); Lymphocytes % (auto) 8.4 %; Mean Corpuscular Hemoglobin 30.6 pg (25.0-34.0); Mean Corpuscular Hgb Conc 32.9 g/dL (32.0-36.0); Mean Corpuscular Volume 92.9 fL (80.0-100.0); Monocytes # (auto) 0.95 K/uL (0.11-0.59); Monocytes % (auto) 14.8 %; Neutrophils % (auto) 74.9 %; Nucleated RBC # (auto) 0.02 K/uL (0.00-0.12); Nucleated RBC % (auto) 0.3 %; Platelet Count 149 K/uL (130-400); RDW Coefficient of Variation 15.7 % (11.5-14.5); RDW Standard Deviation 53.6 fL (36.4-46.3); Red Blood Count 3.24 M/uL (4.70-6.10); White Blood Count 6.41 K/ul (4.8-10.8)
[2023-08-24 10:10] LABS: Phosphorus 3.4 mg/dl (2.5-4.9)
[2023-08-24 10:11] LABS: Albumin Globulin Ratio 1.6 (0.9-2); Albumin Level 3.1 gm/dl (3.4-5.0); BUN Creatinine Ratio 28.2 (10-20); Bilirubin,Total 0.3 mg/dl (0.2-1.0); Calcium 7.7 mg/dl (8.6-10.3); Creatinine Clr Calc Pharmacy 39.2 ml/min; Est GFR (African American) 43.8 ml/min; Est GFR (Non-African American) 37.8 ml/min; Magnesium 1.6 mg/dl (1.7-2.4); Potassium 4.3 mmol/L (3.5-5.1); Total Protein 5.1 gm/dl (6.0-8.3)
[2023-08-24] MEDS: METOPROLOL TARTRATE 50 MG TAB PO SCH ×2 (16:30→21:05)
[2023-08-24] MEDS: ENOXAPARIN INJ 40 MG/0.4 ML SYR SQ SCH (21:02)
[2023-08-24] MEDS: MIRTAZAPINE TAB 15 MG TAB PO SCH (21:05)
[2023-08-24] MEDS: CALCIUM 600MG + VIT D 400 IU TAB PO SCH (21:05)
[2023-08-24] MEDS: ATORVASTATIN 40 MG TAB PO SCH (21:05)
[2023-08-24] MEDS: REMDESIVIR 100 MG in SODIUM CHLORIDE 0.9% 230 ML IV SCH (21:06)
[2023-08-25] MEDS: SODIUM CHLORIDE 0.9% 1,000 ML IV SCH (02:16)
[2023-08-25] MEDS: DICLOFENAC SOD 1% GEL 100 GM TUBE EXT PRN (02:16)
[2023-08-25] MEDS: CEFEPIME 2,000 MG in SYRINGE 0 ML IV SCH (06:01)
[2023-08-25] MEDS: PANTOprazole 40 MG TAB PO SCH (09:11)
[2023-08-25] MEDS: ADVANCED PROBIOTIC 1250 MG CAPSULE PO SCH (09:12)
[2023-08-25] MEDS: METOPROLOL TARTRATE 50 MG TAB PO SCH (09:12)
[2023-08-25] MEDS: ASPIRIN 81 MG ECTAB PO SCH (09:12)
[2023-08-25 09:53] LABS: Basophils # (auto) 0.01 K/uL (0.00-0.20); Basophils % (auto) 0.2 %; Hematocrit (blood only) 30.7 % (42.0-52.0); Hemoglobin 10.1 g/dl (14.0-18.0); Immature Granulocytes # (auto) 0.05 K/uL (0.01-0.20); Immature Granulocytes % (auto) 0.9 %; Lymphocytes # (auto) 0.99 K/uL (1.20-3.40); Lymphocytes % (auto) 17.7 %; Mean Corpuscular Hemoglobin 31.2 pg (25.0-34.0); Mean Corpuscular Hgb Conc 32.9 g/dL (32.0-36.0); Mean Corpuscular Volume 94.8 fL (80.0-100.0); Monocytes # (auto) 0.58 K/uL (0.11-0.59); Monocytes % (auto) 10.4 %; Neutrophils # (auto) 3.96 K/uL (1.40-6.50); Neutrophils % (auto) 70.8 %; Platelet Count 122 K/uL (130-400); RDW Coefficient of Variation 16.1 % (11.5-14.5); RDW Standard Deviation 56.4 fL (36.4-46.3); Red Blood Count 3.24 M/uL (4.70-6.10); White Blood Count 5.59 K/ul (4.8-10.8)
[2023-08-25 10:03] LABS: Albumin Globulin Ratio 1.5 (0.9-2); Albumin Level 3.2 gm/dl (3.4-5.0); BUN Creatinine Ratio 29.3 (10-20); Bilirubin,Total 0.4 mg/dl (0.2-1.0); Calcium 7.5 mg/dl (8.6-10.3); Creatinine Clr Calc Pharmacy 41.7 ml/min; Est GFR (Non-African American) 40.6 ml/min; Globulin 2.1 gm/dl (2.5-4.0); Magnesium 1.4 mg/dl (1.7-2.4); Phosphorus 2.6 mg/dl (2.5-4.9); Potassium 3.7 mmol/L (3.5-5.1); Total Protein 5.3 gm/dl (6.0-8.3)
--- NOTE | 2023-08-25 14:58 | Discharge Summary ---
Discharge Summary Date of Service August 25, 2023 Notes For Next Care Provider Please ensure follow up of covid pneumonia Please repeat BMP during the week after discharge to ensure Cr remains at baseline Please ensure follow up of pulmonary nodules noted on imaging- read as stable Medication Changes From Visit cefdinir 300mg BID x 4 days Admission HPI Per Admitting Provider Pt is a 73yoM with a PMHx significant for CAD s/p stent placement, AAA, PVD, paroxysmal atrial flutter, hypertension, hyperlipidemia, multiple myeloma with ongoing chemotherapy, bladder cancer s/p surgery, CKD (baseline creatinine 1.3- 1.5), chronic anemia (baseline hemoglobin of 10), ongoing tobacco abuse admitted with acute hypoxic respiratory failure in the setting of a covid infection. States that his symptoms of cough, SOB and diarrhea started about 3-4 days ago. Followed up with his pcp who tested him for covid and it came back positive. Also had blood work done which showed that he had some kidney injury and was advised to go to the ED. States he is a smoker but quit 2 days ago. Used to smoke a ppd, stopped for some time and now smokes a few cigarettes a day. Does not use oxygen at baseline. Feeling weak. States he has not been eating and drinking Notes that he was vaccinated against covid with the original shots. Admission Exam Per Admitting Provider General: Alert, oriented. No acute distress, NC in nares Psych: Appropriate mood and affect Neuro: Difficulty with movements in the bed HEENT: NC/AT Chest: Nontender to palpation. CV: Irregular Resp: Breath sounds decreased bilaterally, no increased effort of breathing. Abdomen: Soft, nontender, nondistended. Extremities: No edema in lower extremities bilaterally. Principal Dx & Hospital Course #1 = Principal Diagnosis (1) Acute hypoxic respiratory failure: (2) COVID: (3) COPD exacerbation: (4) Hyponatremia: (5) Multiple myeloma: (6) GERD (gastroesophageal reflux disease): (7) Hypertension: (8) Abdominal aortic aneurysm: Plan Pt is a 73yoM with a PMHx significant for CAD s/p stent placement, AAA, PVD, paroxysmal atrial flutter, hypertension, hyperlipidemia, multiple myeloma with ongoing chemotherapy, bladder cancer s/p surgery, CKD (baseline creatinine 1.3- 1.5), chronic anemia (baseline hemoglobin of 10), ongoing tobacco abuse admitted with acute hypoxic respiratory failure in the setting of a covid infection. Acute hypoxic respiratory failure COVID infection COPD Exacerbation Pneumonia Pt states that he started having SOB 3 days prior to admission with copious amounts of diarrhea Saw his pcp the day before admission who did bloodwork and tested him for covid, started him on azithromycin and prednisone for a COPD exacerbation. Was advised to present to the ED for further evaluation. Hypoxic to the 80s on RA with activity in the ED COVID + on testing, pt states he was vaccinated originally Procal not elevated Chest XRAY with patchy R midlung opacity, chest CT w/o contrast noting viral pneumonia changes, stable pulmonary nodules. Pt with contrast allergy, d-dimer ordered and elevated. V/Q scan repeatedly declined by pt. Oxygen supplementation as needed, does not use oxygen at baseline. Pt received a dose of Decadron 6mg in the ED on admission. He is on decadron 20mg qweekly for Multiple Myeloma treatment and was due for dose on 08/23. Received Decadron 20mg dose on 08/23 for MM. Home prednisone was held while hospitalized and resumed on discharge. Was treated with remdesivir, liver enzymes were monitored Treated with Cefepime and azithromycin as well for concern of superimposed pulmonary infection. Pt originally declining cefepime doses, currently taking. Completed 3 day azithromycin 500mg course in the hospital, discharged with 4 more days of cefdinir 300mg BID. PCP follow up after discharge, consider pulmonology follow up as well BREANN Pt with significant diarrhea on admission Cr elevated to 2.14 on admission, improving slowly. Baseline Cr of 1.3-1.5 Hydrated with NSS @80 Avoid nephrotoxic meds, IV contrast Cr 1.67 on discharge Continue to monitor after discharge PCP follow up-Please repeat BMP during the week after discharge to ensure Cr remains at baseline Elevated trop Pt with elevated trop at 69.9 --> 50.5 Echo with EF 55-60%, inf wall scar and hypokinesis, moderate aortic valve sclerosis w/o sig stenosis, mod aortic root dilatation, mild aortic regurg, mod mitral regurg Remained stable PCP follow up after discharge Hyponatremia Sodium level was 130 on admission Improved to normal on discharge Likely due to dehydration Treated with IV fluids as noted above Abdominal and thoracic aneurysms Pt with noted thoracic aneurysm >4cm on CT chest Chart review shows CT abd/pelvis from 2021 noted abdominal aneurysm as well Vascular and PCP followup after discharge Multiple Myeloma Continue with Decadron 20mg weekly dose on 08/23 Continue Revlimid- pt states due for next cycle of 14 days on 08/24 stable Hx of bladder cancer S/p surgery and BCG Rx Stable HLD Continue home statin Atrial Fibrillation HTN Continue home metoprolol Pt not currently on anticoagulation GERD Continue home ppi Appetite and Mood Continue home remeron Tobacco use disorder Pt states that he quit smoking 2 days [employer]AR[employer]PAR[employer] Encourage cessation Prediabetes Pt with hgba1c of 5.9 Stable Discharge Exam General: Alert, oriented. No acute distress, NC in nares Psych: Appropriate mood and affect Neuro: Difficulty with movements in the bed HEENT: NC/AT Chest: Nontender to palpation. CV: Irregular Resp: Breath sounds decreased bilaterally, no increased effort of breathing. Abdomen: Soft, nontender, nondistended. Extremities: No edema in lower extremities bilaterally. Updated Medication List Medication Instructions Recorded Confirmed Type aspirin 81 mg tablet,delayed 81 mg PO QAM 09/29/19 08/22/23 History release atorvastatin 80 mg tablet 80 mg PO QPM 09/29/19 08/22/23 History nitroglycerin 0.4 mg sublingual 0.4 mg sublingual DIRECTED PRN 09/29/19 08/22/23 History tablet Chest Pain calcium citrate 250 mg 1 tab PO HS 10/05/20 08/22/23 History calcium-vitamin D3 5 mcg (200 unit) tablet acyclovir 400 mg tablet 400 mg PO AMHS 07/18/22 08/22/23 History dexamethasone 4 mg tablet 20 mg PO WK 07/18/22 08/22/23 History lenalidomide 10 mg capsule 10 mg PO UD 07/18/22 08/22/23 History (Revlimid) mirtazapine 15 mg tablet 15 mg PO HS 07/18/22 08/22/23 History ondansetron HCl 8 mg tablet 8 mg PO Q8 PRN Nausea 07/18/22 08/22/23 History lactobacillus combination no.4 3 0 mmu cells PO DAILY 08/22/23 08/22/23 History billion cell capsule (Probiotic) loperamide 2 mg capsule 2 mg PO DIRECTED PRN Diarrhea 08/22/23 08/22/23 History metoprolol tartrate 50 mg tablet 50 mg PO BID 08/22/23 08/22/23 History pantoprazole 20 mg tablet,delayed 20 mg PO QAM 08/22/23 08/22/23 History release prednisone 20 mg tablet 40 mg PO .Q AM 5DAYS 08/22/23 08/22/23 History tramadol 50 mg tablet 50 mg PO Q6 PRN Pain 08/22/23 08/22/23 History cefdinir 300 mg capsule 300 mg PO BID #8 caps 08/25/23 Rx cefdinir 300 mg capsule 300 mg PO BID #8 caps 08/26/23 Rx Hospital Stay Data Consultations 08/22/23 13:35 ED Decision to Admit Stat Diagnostic Imagining Performed 08/22/23 17:11 CT chest diagnostic wo con Urgent Chest X-Ray 08/22/23 11:31 XR chest 1V portable CLINICAL HISTORY: sob, + COVID COMPARISON STUDY: Chest CT April 25, 2020. Chest radiograph July 18, 2022. FINDINGS: There is no pneumothorax or pleural effusion. Cardiomegaly is unchanged. There is no evidence for pulmonary edema. Patchy right midlung opacity is present. Patient is mildly rotated. This likely accounts for right hilar prominence. IMPRESSION: Patchy right midlung opacity. This may reflect an infectious process. Radiographic follow-up to ensure resolution is recommended. ACT 112: Negative or not required by law. Electronically signed by: Chandrakant Hdz M.D. 08/22/2023 1:[address] 08/22/23 17:11 CT chest diagnostic wo con CT DOSE: 420.11 mGy.cm CLINICAL HISTORY: 73 years-old Male with acute hypoxiz resp failure, dyspnea. Acute respiratory failure TECHNIQUE: Multiaxial CT images of the chest were performed without contrast. A dose lowering technique was utilized adhering to the principles of ALARA. COMPARISON: Chest CT of same day, CT chest 04/25/2020 FINDINGS: Unremarkable thyroid. No lymphadenopathy. Mild cardiomegaly with extensive coronary artery calcifications. Mild dilation of the ascending thoracic aorta at the level of the main pulmonary artery, 4.3 cm. This is unchanged from prior. Some chronic pleural thickening. Severe pulmonary emphysema. Subpleural fibrotic changes are noted along with patchy subpleural groundglass densities in the mid to lower lung zones, right greater than left. Stable solid nodules in the left lower lobe measure up to 5 mm. Central airways are patent. Cholecystectomy. Bilateral perinephric stranding. There are a few hepatic cysts noted. No acute fracture. Degenerative changes of the shoulders and spine with chronic appearing thoracic compression deformities. IMPRESSION: 1. Severe emphysema with mid to lower lung zone predominate patchy peripheral groundglass densities which are likely infectious or inflammatory such as viral pneumonia. 2. Stable pleural-parenchymal scarring with fibrotic changes and stable low suspicion solid pulmonary nodules. 3. No lymphadenopathy. 4. Unchanged fusiform dilation of the ascending thoracic aorta, 4.3 cm. ACT 112: Negative or not required by law. Electronically signed by: Quirino Soot M.D. 08/22/2023 7:00 PM Pending Results Patient Have Any Pending Studies at Discharge: No Discharge Instructions Given to Patient (Per Discharging Provider) Mr. Salinas, You were admitted with a covid infection that made it difficult for you to breathe. We treated you with steroids and antibiotics for a superimposed bacterial infection and your symptoms improved. You initially required oxygen but do not require it at discharge. Your kidney function was up from your baseline but improved while you were here. Please continue to drink A LOT of water while you are at home to help with that. Please keep close follow up with your primary care provider after discharge and they will continue to monitor that for you. Please continue taking your home steroids. Please isolate for a total of 10 days from the start of your covid symptoms. Please do not hesitate to come back to the emergency room if your symptoms do not get better or worsen. It was a pleasure taking care of you while you were here Total Time Total Time Spent Total Time Spent (In Minutes): > 30 minutes
[2023-08-25] MEDS ORDERED: CEFDINIR 300 MG CAP PO SCH (21:00)
== END 2023-08-25 15:42 | disposition home or self-care (01) | DRG 177 ==
LOC: ED 11:14 → EDINP 15:26 → 2N 08-23 00:37

== ENCOUNTER 2024-09-03 11:59 | Observation (INO) ==
--- NOTE | 2024-09-03 12:40 | Emergency Department Note ---
Impression & Plan Hypoxia, Pneumonia, Elevated troponin, COPD exacerbation, SOB (shortness of breath) ED Provider Note NAME: JESSICA BILLY AGE: 74 SEX: M : 1950 ARRIVES VIA: Walk-In INFORMANT: [Patient][family] ED PROVIDER(S): [Barrington Brown MD] CHIEF COMPLAINT: Flulike symptoms HISTORY OF PRESENT ILLNESS: The patient is a 74-year-old male with COPD. He has had a week of productive cough, stuffy nose and some increased dyspnea/shortness of breath. He does not have a fever. No sick contacts. Patient has been weak and washed out. He has no energy. He has not noticed any chest pain. He does have some pain across the right abdominal area with coughing, he thinks he pulled a muscle. The patient went to his doctor's office today, his O2 saturation was initially 77% with an increase to 88%. He was sent to the hospital for admission. PMHx/PSHx/Social Hx: See Below PHYSICAL EXAM: GENERAL: Patient is in no acute distress. HEENT: No acute trauma, normocephalic atraumatic, mucous membranes moist, no nasal congestion. NECK: No stridor, no adenopathy, no meningismus, trachea is midline. LUNGS: Diminished breath sounds with some crackles at the left base. No wheezing, no obvious respiratory distress. HEART: Without murmurs gallops or rubs, regular rate and rhythm. ABDOMEN: Soft, nontender, no peritonitis. EXTREMITIES: No cyanosis, full range of motion of all the joints without pain or difficulty. NEUROLOGIC: Oriented x 3, no acute motor or sensory deficits, no focal weakness. SKIN: No jaundice, no diaphoresis. DIFFERENTIAL DIAGNOSIS: Bronchitis or pneumonia, CHF, exacerbation of COPD, viral illness, cardiac ischemia, among others. EMERGENCY DEPARTMENT PROCEDURES: MEDICAL DECISION MAKING: There is no leukocytosis. The patient does have a mild anemia with a hemoglobin of around 12. There was a normal platelet count. No coagulopathy. No renal failure. Lactic acid level is not elevated making severe sepsis unlikely. No concerning liver enzyme elevation. ECG shows a sinus rhythm, no obvious ischemia. Cardiac enzyme testing is slightly elevated. This troponin elevation is likely from his hypoxia although cardiac injury was also considered. Respiratory bio fire was negative. Chest film did not show CHF. A subtle left lower lobe infiltrate was suspected. CT imaging of the chest did not show PE, a patchy pneumonia was felt likely. On exam, patient did have a occasional crackles on auscultation of his lungs. He was nontoxic. Patient was given IV Solu-Medrol, he received a DuoNeb. He received IV Zosyn as antibiotic coverage. He was given a dose of IV Benadryl in preparation for his CT of the chest. The patient was hypoxic at the outpatient office. He has COPD and now appears to have pneumonia. The pneumonia has flared his COPD. Given his findings, given his hypoxia, hospitalization is warranted. I did speak with the patient and case management. The on-call hospitalist was consulted. Prior/Outside records/notes reviewed: Today's family practice notes describing his presentation, concerns and the need for an ED referral. ECG per my interpretation: Indication was shortness of breath. ECG shows a sinus rhythm with some presumed PACs. The rate was 77. There was baseline artifact present. There was LVH present. No ST elevation. No PVCs. The QTc was 454. Continuous Cardiac Monitoring per my interpretation: An order was placed for continuous cardiac monitoring. The monitor shows a rate of 82 with normal sinus rhythm. Imaging/x-ray results per my interpretation: Chest x-ray shows potential consolidation at the left lower lung. No pneumothorax or CHF. Chronic Medical/Social conditions affecting care: Advanced age, history of COPD. Care/Management discussed with: Case management, the on-call hospitalist. Level of care consideration(s): After review of the information above and other included data: --I believe the patient requires escalation of care to admission Critical Care Note: I have personally spent 51 minutes of critical care time in the direct management of this patient. This includes bedside care, interpretation of diagnostic studies, and testing, discussion with consultants, patient, and family members, and other required patient management activities. This 51 minutes is in excess of all separately billable procedures. DISPOSITION: Admission Past Med/Surg History Problem List (Updated 09/03/24 @ 20:16 by Barrington Brown MD) SOB (shortness of breath) (Acute) COPD exacerbation (Acute) Elevated troponin (Acute) Pneumonia (Acute) Hypoxia (Acute) Encounter for pre-operative examination Hyponatremia COPD exacerbation COVID Acute hypoxic respiratory failure BREANN (acute kidney injury) (Acute) Elevated troponin (Acute) Hypoxia (Acute) Pneumonia (Acute) COVID-19 (Acute) Atrial flutter Substernal precordial chest pain (Acute) Atrial flutter with rapid ventricular response (Acute) Depression Nausea (Acute) ARF (acute renal failure) (Acute) Weakness (Acute) Acute hyperkalemia (Acute) Acute renal failure Hyperkalemia Recurrent Clostridioides difficile diarrhea Dehydration (Acute) Hypomagnesemia (Acute) C. difficile diarrhea (Acute) Hypocalcemia (Acute) Weakness (Acute) CIS (carcinoma in situ of bladder) Anemia Elevated BUN (Acute) Multiple myeloma (Acute) Bilateral pneumonia (Acute) Primary bladder malignant neoplasm Pneumonia Rib lesion Smoker Hypokalemia (Acute) Hypomagnesemia (Acute) COPD (chronic obstructive pulmonary disease) (Chronic) Atrial fibrillation (Acute) paroxysmal--on metoprolol, no anticoagulants per patient preference--most recent EKG 12/22/23 was SR--follows with [facility] GERD (gastroesophageal reflux disease) Coronary artery disease BMS (2014) follows with Dr. Geiger Hypertension Abdominal aortic aneurysm 5cm per 03/2020 CT- under surveillance by vascular Medical History Bilateral pneumonia hospitalized for this 07/2020 [facility] History of COVID-19 10/05/19 > tested at [place] [facility]2023[facility] History of kidney stones Arthritis Lung nodule, multiple per , refusing work up at present time History of myocardial infarction 2013 Hyperlipidemia COPD (chronic obstructive pulmonary disease) no inh Chronic steroid use Multiple myeloma reason for dexamethasone, revlimid & velcade History of pancreatitis Anemia Bladder cancer dx March 2020; hx TURBT 04/27/2020 [facility] Surgical History Hx of right cataract extraction Hx of transurethral resection of prostate History of colonoscopy History of tooth extraction History of cystoscopy History of cardiac catheterization 2013 [facility] [place] - 1 stent History of cholecystectomy Family History Other Heart disease Social History Smoking Status: Current every day smoker Tobacco Type: Cigarettes Cigarettes Per Day: 5-7; Second Hand Exposure: Yes; Do You Dip or Chew Tobacco: No; Hx Alcohol Use: Yes Hx Substance Use: Yes Last Used Substance Other:: uses marijuana ~2 puffs daily; remote hx of use of cocaine, amphetamines Substance Use Type Other:: marijuana once weekly Preferred Language: Namibian Communication Ability: Effective Visual Impairment: No Limitations Engineering Faculty Member Required: No Beliefs That Will Affect Care: None marital status: Current Living Situation: Spouse Feels Safe at Home: Yes Assistive Devices: None Allergies Allergies Allergy/AdvReac Type Severity Reaction Status Date / Time shellfish derived Allergy Intermediate HIVES Verified 01/17/24 12:18 Home Meds Home Medications Medication Instructions Recorded Confirmed aspirin 81 mg tablet,delayed 81 mg PO QAM 09/29/19 09/03/24 release atorvastatin 80 mg tablet 80 mg PO QPM 09/29/19 09/03/24 nitroglycerin 0.4 mg sublingual 0.4 mg sublingual UD PRN Chest Pain 09/29/19 09/03/24 tablet calcium 250 mg (as 1 tab PO HS 10/05/20 09/03/24 citrate)-vitamin D3 5 mcg (200 unit) tablet acyclovir 400 mg tablet 400 mg PO BID 07/18/22 09/03/24 mirtazapine 15 mg tablet 15 mg PO HS 07/18/22 09/03/24 ondansetron HCl 8 mg tablet 8 mg PO UD PRN Nausea 07/18/22 09/03/24 lactobacillus combination no.4 3 0 mmu cells PO DAILY 08/22/23 09/03/24 billion cell capsule (Probiotic) loperamide 2 mg capsule 2 mg PO UD PRN Diarrhea 08/22/23 09/03/24 metoprolol tartrate 50 mg tablet 50 mg PO BID 08/22/23 09/03/24 pantoprazole 20 mg tablet,delayed 20 mg PO BID 08/22/23 09/03/24 release tramadol 50 mg tablet 50 mg PO UD PRN Pain 08/22/23 09/03/24 cyanocobalamin (vitamin B-12) 1,000 mcg PO QAM 09/03/24 09/03/24 1,000 mcg tablet dexamethasone 4 mg tablet 20 mg PO UD 09/03/24 09/03/24 lenalidomide 10 mg capsule 10 mg PO DIRECTED 09/03/24 09/03/24 (Revlimid) Results & Data (ED) Vital Signs Vital Signs - 24 hr 09/03/24 12:04 09/03/24 12:33 09/03/24 12:35 Temperature 36.5 C Temperature Source Oral Pulse Rate 87 84 Pulse Rate [Finger] 82 Pulse Rhythm Regular Pulse Rhythm [Finger] Regular Pulse Strength [Finger] Normal Respiratory Rate 18 18 18 Respiratory Effort / Characteristics Non-Labored Spontaneous Non-Labored Spontaneous Respiratory Depth Normal Normal Respiratory Pattern Regular Blood Pressure 119/82 Blood Pressure [Left Arm] 126/85 Blood Pressure Mean 94 Blood Pressure Mean [Left Arm] 98 Pulse Oximetry 97 97 97 Oxygen Delivery Method Room Air Room Air Room Air Sepsis Recent Fever Within 48 Hours No Sepsis New/Unexplained Change in Mental Status N/A Sepsis Action Taken by Nursing No Action Required 09/03/24 12:50 09/03/24 14:15 Temperature Temperature Source Pulse Rate 83 Pulse Rate [Finger] 80 Pulse Rhythm Pulse Rhythm [Finger] Regular Pulse Strength [Finger] Normal Respiratory Rate 18 Respiratory Effort / Characteristics Non-Labored Spontaneous Respiratory Depth Normal Respiratory Pattern Blood Pressure Blood Pressure [Left Arm] 111/80 Blood Pressure Mean Blood Pressure Mean [Left Arm] 90 Pulse Oximetry 97 Oxygen Delivery Method Room Air Sepsis Recent Fever Within 48 Hours Sepsis New/Unexplained Change in Mental Status Sepsis Action Taken by Prison Medications Current Medication List: was personally reviewed by me Laboratory Data Attestation: I reviewed the patient's lab results. 09/03/24 12:20 09/03/24 12:20 Lab Results 09/03/24 09/03/24 09/03/24 Range/Units 12:20 12:40 14:34 WBC 10.03 (4.8-10.8) K/ul RBC 3.80 L (4.70-6.10) M/uL Hgb 11.9 L (14.0-18.0) g/dl Hct 36.7 L (42.0-52.0) % MCV 96.6 (80.0-100.0) fL MCH 31.3 (25.0-34.0) pg MCHC 32.4 (32.0-36.0) g/dL RDW Std Deviation 56.5 H (36.4-46.3) fL RDW Coeff of Andrew 15.9 H (11.5-14.5) % Plt Count 216 (130-400) K/uL MPV 11.4 (9.4-12.4) fL Immature Gran % (Auto) 1.9 % Neut % (Auto) 78.2 % Lymph % (Auto) 8.3 % Keith % (Auto) 6.1 % Eos % (Auto) 5.1 % Baso % (Auto) 0.4 % Neut # (Auto) 7.85 H (1.40-6.50) K/uL Lymph # (Auto) 0.83 L (1.20-3.40) K/uL Keith # (Auto) 0.61 H (0.11-0.59) K/uL Eos # (Auto) 0.51 H (0.00-0.50) K/uL Baso # (Auto) 0.04 (0.00-0.20) K/uL Immature Gran # (Auto) 0.19 (0.01-0.20) K/uL PT 11.0 (9.0-12.0) Seconds INR 1.0 (0.9-1.1) APTT 25 (21-31) Seconds PTT Ratio 0.9 Sodium 138 (136-145) mmol/L Potassium 4.6 (3.5-5.1) mmol/L Chloride 104 (98-107) mmol/L Carbon Dioxide 26 (21-32) mmol/L Anion Gap 8 (3-11) BUN 21 (6-23) mg/dl Creatinine 1.32 (0.6-1.4) mg/dl Est Cr Clr Drug Dosing 47.3 ml/min eGFR 57.31 BUN/Creatinine Ratio 15.9 (10-20) Glucose 107 H (70-99(Fasting)) mg/dl Lactate 1.4 (0.4-2.0) mmol/L Calcium 8.4 L (8.6-10.3) mg/dl Magnesium 1.7 (1.7-2.4) mg/dl Total Bilirubin 0.6 (0.2-1.0) mg/dl AST 14 (13-39) U/L ALT 9 (7-52) U/L Alkaline Phosphatase 80 (34-104) U/L Troponin I High Sens 27.1 H 20.8 H (0-20) pg/ml B-Natriuretic Peptide (0-100) pg/ml Total Protein 6.7 (6.0-8.3) gm/dl Albumin 3.8 (3.4-5.0) gm/dl Globulin 2.9 (2.5-4.0) gm/dl Albumin/Globulin Ratio 1.3 (0.9-2) Adenovirus (PCR) Not Detected (NotDetected) B. pertussis DNA (PCR) Not Detected (NotDetected) B.parapertussis DNA PCR Not Detected (NotDetected) C. pneumoniae DNA (PCR) Not Detected (NotDetected) Coronavirus OC43 (PCR) Not Detected (NotDetected) Coronavirus HKU1 (PCR) Not Detected (NotDetected) Coronavirus 229E (PCR) Not Detected (NotDetected) SARS-CoV-2 (PCR) Not Detected (NotDetected) Coronavirus NL63 (PCR) Not Detected (NotDetected) Human Metapneumovir PCR Not Detected (NotDetected) Influenza Type A (PCR) Not Detected (NotDetected) Influenza Type B (PCR) Not Detected (NotDetected) M. pneumoniae (PCR) Not Detected (NotDetected) Parainfluenza 1 (PCR) Not Detected (NotDetected) Parainfluenza 2 (PCR) Not Detected (NotDetected) Parainfluenza 3 (PCR) Not Detected (NotDetected) Parainfluenza 4 (PCR) Not Detected (NotDetected) RSV (PCR) Not Detected (NotDetected) Entero/Rhino (PCR) Not Detected (NotDetected) 09/03/24 Range/Units 15:06 WBC (4.8-10.8) K/ul RBC (4.70-6.10) M/uL Hgb (14.0-18.0) g/dl Hct (42.0-52.0) % MCV (80.0-100.0) fL MCH (25.0-34.0) pg MCHC (32.0-36.0) g/dL RDW Std Deviation (36.4-46.3) fL RDW Coeff of Andrew (11.5-14.5) % Plt Count (130-400) K/uL MPV (9.4-12.4) fL Immature Gran % (Auto) % Neut % (Auto) % Lymph % (Auto) % Keith % (Auto) % Eos % (Auto) % Baso % (Auto) % Neut # (Auto) (1.40-6.50) K/uL Lymph # (Auto) (1.20-3.40) K/uL Keith # (Auto) (0.11-0.59) K/uL Eos # (Auto) (0.00-0.50) K/uL Baso # (Auto) (0.00-0.20) K/uL Immature Gran # (Auto) (0.01-0.20) K/uL PT (9.0-12.0) Seconds INR (0.9-1.1) APTT (21-31) Seconds PTT Ratio Sodium (136-145) mmol/L Potassium (3.5-5.1) mmol/L Chloride (98-107) mmol/L Carbon Dioxide (21-32) mmol/L Anion Gap (3-11) BUN (6-23) mg/dl Creatinine (0.6-1.4) mg/dl Est Cr Clr Drug Dosing ml/min eGFR BUN/Creatinine Ratio (10-20) Glucose (70-99(Fasting)) mg/dl Lactate (0.4-2.0) mmol/L Calcium (8.6-10.3) mg/dl Magnesium (1.7-2.4) mg/dl Total Bilirubin (0.2-1.0) mg/dl AST (13-39) U/L ALT (7-52) U/L Alkaline Phosphatase (34-104) U/L Troponin I High Sens (0-20) pg/ml B-Natriuretic Peptide 249 H (0-100) pg/ml Total Protein (6.0-8.3) gm/dl Albumin (3.4-5.0) gm/dl Globulin (2.5-4.0) gm/dl Albumin/Globulin Ratio (0.9-2) Adenovirus (PCR) (NotDetected) B. pertussis DNA (PCR) (NotDetected) B.parapertussis DNA PCR (NotDetected) C. pneumoniae DNA (PCR) (NotDetected) Coronavirus OC43 (PCR) (NotDetected) Coronavirus HKU1 (PCR) (NotDetected) Coronavirus 229E (PCR) (NotDetected) SARS-CoV-2 (PCR) (NotDetected) Coronavirus NL63 (PCR) (NotDetected) Human Metapneumovir PCR (NotDetected) Influenza Type A (PCR) (NotDetected) Influenza Type B (PCR) (NotDetected) M. pneumoniae (PCR) (NotDetected) Parainfluenza 1 (PCR) (NotDetected) Parainfluenza 2 (PCR) (NotDetected) Parainfluenza 3 (PCR) (NotDetected) Parainfluenza 4 (PCR) (NotDetected) RSV (PCR) (NotDetected) Entero/Rhino (PCR) (NotDetected) Administered Medications Azithromycin (Azithromycin 250 Mg Tab) 500 mg PO QAM [facility] Stop: 09/06/24 19:00 Last Admin: 09/03/24 19:54 Dose: 500 mg Documented By: AFTAB Ocampo Syrup (Ocampo Syrup 5 Ml Udp) 5 ml PO DAILY [facility] Stop: 09/13/24 18:59 Last Admin: 09/03/24 19:46 Dose: 5 ml Documented By: AFTAB Enoxaparin Sodium (Enoxaparin Inj 40 Mg/0.4 Ml Syr) 40 mg SQ Q24H [facility] Stop: 10/03/24 18:59 Last Admin: 09/03/24 19:56 Dose: 40 mg Documented By: AFTAB Guaifenesin (Guaifenesin Sugar Free 200 Mg/10 Ml Udc) 200 mg PO Q6H PRN PRN Reason: Cough Stop: 10/03/24 15:57 Last Admin: 09/03/24 19:56 Dose: 200 mg Documented By: AFTAB Ceftriaxone Sodium (Rocephin) 1,000 mg in 50 mls @ 100 mls/hr IV Q24H [facility] Stop: 09/08/24 18:59 Last Admin: 09/03/24 19:48 Dose: 100 mls/hr Documented By: AFTAB Lactobacillus Acidophilus (Lactobacillus Acidophilus 1 Gm Pack) 1 packet PO TIDM [facility] Stop: 10/03/24 18:44 Last Admin: 09/03/24 19:44 Dose: 1 packet Documented By: AFTAB Vancomycin HCl (Vancomycin Hcl 250 Mg/5 Ml Soln) 125 mg PO DAILY [facility] Stop: 09/13/24 18:59 Last Admin: 09/03/24 19:48 Dose: 125 mg Documented By: AFTAB Discontinued Medications Albuterol (Albut/Ipratrop 3mg/0.5mg Neb 3 Ml Vial) 3 ml INH NOW STA Stop: 09/03/24 12:32 Last Admin: 09/03/24 12:42 Dose: 3 ml Documented By: CORINA Diphenhydramine HCl (Diphenhydramine 50 Mg/Ml Vial) 25 mg IV NOW STA Stop: 09/03/24 13:34 Last Admin: 09/03/24 13:43 Dose: 25 mg Documented By: CORINA Piperacillin Sod/Tazobactam Sod (Zosyn) 4.5 gm in 100 mls @ 200 mls/hr IV NOW ONE Stop: 09/03/24 15:12 Last Infusion: 09/03/24 18:57 Dose: Infused Documented By: Admin: 09/03/24 15:09 Dose: 200 mls/hr Documented By: DENISE Ioversol (Optiray 320 125ml) 119 ml IV ONCE ONE Stop: 09/03/24 14:02 Last Admin: 09/03/24 14:01 Dose: 119 ml Documented By: MARLEE Menthol (Cough Drop (Sugar Free) Del 24 Del/1 Box) 1 del BUCCAL NOW STA Stop: 09/03/24 14:34 Last Admin: 09/03/24 14:34 Dose: 1 del Documented By: CORINA Methylprednisolone (Methylprednisolone 125 Mg/2 Ml Vial) 60 mg IV NOW STA Stop: 09/03/24 12:35 Last Admin: 09/03/24 12:42 Dose: 60 mg Documented By: CORINA Imaging Data Radiologist's Impression: Chest X-Ray 09/03/24 12:20 XR chest 1V portable CLINICAL HISTORY: sob TECHNIQUE: Single frontal radiograph of the chest was obtained. Comparison: Comparison is made to chest radiograph 08/22/2023 FINDINGS: No lines and tubes are seen. Cardiomegaly is noted. The lungs are clear. No evidence of pleural effusion or pneumothorax. IMPRESSION: No acute abnormalities and in particular no radiographic evidence of pneumonia. Previously noted airspace opacity has essentially resolved. ACT 112: Negative or not required by law. Electronically signed by: Tad Younger M.D. 09/03/2024 12:40 PM Chest CTA 09/03/24 13:33 CT angio chest PE protocol CT DOSE: 774.97 mGy.cm HISTORY: 74 years-old Male with PE. Acute cough with shortness of breath TECHNIQUE: Multiple CTA images of the chest were obtained after the intravenous administration of 119 ml Optiray. Coronal and sagittal MIPS were obtained from the axial data set and were submitted for review. All measurements were obtained according to NASCET criteria. A dose lowering technique was utilized adhering to the principles of ALARA. COMPARISON: Chest CT 08/22/2023, 04/25/2020. FINDINGS: Unremarkable thyroid. No lymphadenopathy. Mild cardiomegaly with extensive coronary artery calcifications. Mild dilation of the ascending thoracic aorta at the level of the main pulmonary artery, 4.3 cm. This is unchanged from prior. No pulmonary emboli identified. Severe pulmonary emphysema redemonstrated. Subpleural fibrotic changes are noted along with patchy subpleural groundglass densities in the mid to lower lung zones, right greater than left. There is improved aeration of the subpleural right upper lobe compared to the prior study. Progressive subpleural opacities within the right middle lobe lateral subpleural segment on image 96 series 4 is 9 mm nodular component. Mild subcentimeter nodular consolidative foci within the right lower lobe has slightly progressed. Stable solid nodules in the left lower lobe measure up to 5 mm. Central airways are patent. Cholecystectomy. Bilateral perinephric stranding. There are a few hepatic cysts noted. No acute fracture. Degenerative changes of the shoulders and spine with chronic appearing thoracic compression deformities. A lucent expansile lesions within the posterior lateral aspect of the right seventh rib with cortical thinning which appears more conspicuous on the prior study. IMPRESSION: 1. No pulmonary emboli identified. 2. Severe pulmonary emphysema with chronic fibrosis. 3. There is improved aeration of the subpleural right upper lobe compared to the prior study, however there is new subtle nodular consolidative foci present within the right middle and lower lobes. These findings are likely infectious or inflammatory, however 3 month follow-up chest CT recommended. 4. No lymphadenopathy. 5. Expansile lucent bone lesion of the right seventh rib. This lesion has been present dating back to the exam from 2019 where it demonstrated a healing subacute associated pathologic fracture. This may represent an enchondroma. ACT 112: Negative or not required by law. The above report was generated using voice recognition software. It may contain grammatical, syntax or spelling errors. Electronically signed by: Quirino Soto M.D. 09/03/2024 2:37 PM Discharge Plan Visit Data Chief Complaint: Flu Like Symptoms Stated Complaint: LOW OX, COUGH, RUNNY NOSE ED Provider: Barrington Brown Discharge Problem: Hypoxia, Pneumonia, Elevated troponin, COPD exacerbation, SOB (shortness of breath) Patient Disposition: Admitted As Inpatient Condition: Fair Discharge Instructions Interventions: ED Discharge Assessment Last Done: 09/03/24 17:56 Discharge Problem: Pneumonia Qualifiers: Pneumonia type: due to unspecified organism Laterality: bilateral Lung location: unspecified part of lung Qualified Code(s): J18.9 - Pneumonia, unspecified organism
[2024-09-03] MEDS: ALBUT/IPRATROP 3MG/0.5MG NEB 3 ML VIAL INH STA (12:42)
[2024-09-03] MEDS: methylPREDNISolone 125 MG/2 ML VIAL IV STA (12:42)
--- NOTE | 2024-09-03 12:43 | XRay Report ---
XR chest 1V portable CLINICAL HISTORY: sob TECHNIQUE: Single frontal radiograph of the chest was obtained. Comparison: Comparison is made to chest radiograph 08/22/2023 FINDINGS: No lines and tubes are seen. Cardiomegaly is noted. The lungs are clear. No evidence of pleural effus ion or pneumothorax. IMPRESSION: No acute abnormalities and in particular no radiographic evidence of pneumonia. Previously noted airs pace opacity has essentially resolved. ACT 112: Negative or not required by law. Electronically signed by: Tad Younger M.D. 09/03/2024 12:40 PM
[2024-09-03 13:08] LABS: Basophils # (auto) 0.04 K/uL (0.00-0.20); Basophils % (auto) 0.4 %; Eosinophils # (auto) 0.51 K/uL (0.00-0.50); Eosinophils % (auto) 5.1 %; Hematocrit (blood only) 36.7 % (42.0-52.0); Hemoglobin 11.9 g/dl (14.0-18.0); Immature Granulocytes # (auto) 0.19 K/uL (0.01-0.20); Immature Granulocytes % (auto) 1.9 %; Lymphocytes # (auto) 0.83 K/uL (1.20-3.40); Lymphocytes % (auto) 8.3 %; Mean Corpuscular Hemoglobin 31.3 pg (25.0-34.0); Mean Corpuscular Hgb Conc 32.4 g/dL (32.0-36.0); Mean Corpuscular Volume 96.6 fL (80.0-100.0); Mean Platelet Volume 11.4 fL (9.4-12.4); Monocytes # (auto) 0.61 K/uL (0.11-0.59); Monocytes % (auto) 6.1 %; Neutrophils # (auto) 7.85 K/uL (1.40-6.50); Neutrophils % (auto) 78.2 %; Platelet Count 216 K/uL (130-400); RDW Coefficient of Variation 15.9 % (11.5-14.5); RDW Standard Deviation 56.5 fL (36.4-46.3); White Blood Count 10.03 K/ul (4.8-10.8)
[2024-09-03 13:22] LABS: Albumin Globulin Ratio 1.3 (0.9-2); Albumin Level 3.8 gm/dl (3.4-5.0); BUN Creatinine Ratio 15.9 (10-20); Bilirubin,Total 0.6 mg/dl (0.2-1.0); Calcium 8.4 mg/dl (8.6-10.3); Creatinine Clr Calc Pharmacy 47.3 ml/min; Globulin 2.9 gm/dl (2.5-4.0); Magnesium 1.7 mg/dl (1.7-2.4); Potassium 4.6 mmol/L (3.5-5.1); Total Protein 6.7 gm/dl (6.0-8.3)
[2024-09-03 13:24] LABS: Adenovirus PCR Not Detected (NotDetected); Bordetella parapertussis PCR Not Detected (NotDetected); Bordetella pertussis PCR Not Detected (NotDetected); Chlamydia pneumoniae PCR Not Detected (NotDetected); Coronavirus 229E PCR Not Detected (NotDetected); Coronavirus CoV-2 (COVID19)PCR Not Detected (NotDetected); Coronavirus HKU1 PCR Not Detected (NotDetected); Coronavirus NL63 PCR Not Detected (NotDetected); Coronavirus OC43PCR Not Detected (NotDetected); Human Metapneumovirus PCR Not Detected (NotDetected); Influenza A PCR Not Detected (NotDetected); Influenza B PCR Not Detected (NotDetected); Mycoplasma pneumoniae PCR Not Detected (NotDetected); Parainfluenza Virus 1 PCR Not Detected (NotDetected); Parainfluenza Virus 2 PCR Not Detected (NotDetected); Parainfluenza Virus 3 PCR Not Detected (NotDetected); Parainfluenza Virus 4 PCR Not Detected (NotDetected); Respiratory Syncytial VirusPCR Not Detected (NotDetected); Rhinovirus/Enterovirus PCR Not Detected (NotDetected)
[2024-09-03 13:27] LABS: Troponin I High Sensitivity 27.1 pg/ml (0-20)
[2024-09-03 13:32] LABS: Partial Thromboplastin Ratio 0.9; Partial Thromboplastin Time 25 Seconds (21-31)
[2024-09-03] MEDS: diphenhydrAMINE 50 MG/ML VIAL IV STA (13:43)
[2024-09-03] MEDS: OPTIRAY 320 125ml IV ONE (14:01)
[2024-09-03] MEDS: COUGH DROP (SUGAR FREE) LOZ 24 LOZ/1 BOX BUCCAL STA (14:34)
--- NOTE | 2024-09-03 14:40 | CT Scan Report ---
CT angio chest PE protocol CT DOSE: 774.97 mGy.cm HISTORY: 74 years-old Male with PE. Acute cough with shortness of breath TECHNIQUE: Multiple CTA images of the chest were obtained after the intravenous administration of 119 ml Optiray. Coronal and sagittal MIPS were obtained from the axial data set and were submitted for review. All measurements were obtained according to NASCET criteria. A dose lowering technique was u tilized adhering to the principles of ALARA. COMPARISON: Chest CT 08/22/2023, 04/25/2020. FINDINGS: Unremarkable thyroid. No lymphadenopathy. Mild cardiomegaly with extensive coronary artery calcificat ions. Mild dilation of the ascending thoracic aorta at the level of the main pulmonary artery, 4.3 cm . This is unchanged from prior. No pulmonary emboli identified. Severe pulmonary emphysema redemonstrated. Subpleural fibrotic changes are noted along with patchy lovelace bpleural groundglass densities in the mid to lower lung zones, right greater than left. There is impr bernardino aeration of the subpleural right upper lobe compared to the prior study. Progressive subpleural opacities within the right middle lobe lateral subpleural segment on image 96 series 4 is 9 mm nodula r component. Mild subcentimeter nodular consolidative foci within the right lower lobe has slightly p rogressed. Stable solid nodules in the left lower lobe measure up to 5 mm. Central airways are patent . Cholecystectomy. Bilateral perinephric stranding. There are a few hepatic cysts noted. No acute fract ure. Degenerative changes of the shoulders and spine with chronic appearing thoracic compression defo rmities. A lucent expansile lesions within the posterior lateral aspect of the right seventh rib with cortical thinning which appears more conspicuous on the prior study. IMPRESSION: 1. No pulmonary emboli identified. 2. Severe pulmonary emphysema with chronic fibrosis. 3. There is improved aeration of the subpleural right upper lobe compared to the prior study, however there is new subtle nodular consolidative foci present within the right middle and lower lobes. Thes e findings are likely infectious or inflammatory, however 3 month follow-up chest CT recommended. 4. No lymphadenopathy. 5. Expansile lucent bone lesion of the right seventh rib. This lesion has been present dating back to the exam from 2019 where it demonstrated a healing subacute associated pathologic fracture. This may represent an enchondroma. ACT 112: Negative or not required by law. The above report was generated using voice recognition software. It may contain grammatical, syntax o r spelling errors. Electronically signed by: Quirino Soto M.D. 09/03/2024 2:37 PM
[2024-09-03] MEDS: PIPERACILLIN/TAZOBACTAM 4.5 GM/100 ML BAG IV ONE (15:09)
--- NOTE | 2024-09-03 16:09 | History & Physical Report ---
Date of Service September 03, 2024 Assessment & Plan (1) Hypoxia: (2) Multiple myeloma: (3) COPD (chronic obstructive pulmonary disease): (4) Atrial fibrillation: (5) Hypertension: (6) GERD (gastroesophageal reflux disease): Plan Assessment and plan: Intermittent hypoxia Community-acquired pneumonia Suspected COPD O2 saturation of 77% on room air noted at PCPs office Hypoxia resolved on arrival to the ER Continue IV ceftriaxone/Zithromax for CAP Chest imaging consistent with COPD, patient denies any underlying diagnosis of this Will need to follow up with pulm for PFTs/treatment, plan for repeat chest CT in 3 months Symptomatic management Hx C. difficile: Continue lactobacillus, prophylactic Vanco ordered while on IV antibiotics Hx multiple myeloma: On Revlimid and Decadron at home, continue Decadron every Monday, hold Revlimid for now Hx AF/CAD/cardiac stents: Continue metoprolol/aspirin, remains in sinus rhythm, telemetry monitoring A total of 60 minutes was spent on facilitating plan of care/reviewing diagnostic data/discussion with consultants/chart review Full code DVT prophylaxis: Lovenox History of Present Illness Chief Complaint: Cough, shortness of breath Primary Care Provider: Savanah Geiger, The patient is a 74-year-old male with a past medical history of multiple myeloma, C. difficile x 2, COPD, A-fib, GERD, CAD, HTN who presents to the ED on 09/03/2024 with complaints of shortness of breath intermittently and a cough x 7 days. Patient reports feeling nasal congestion and being unable to sleep because of this. His dry coughing has been keeping him up at night so he made an appointment with his primary care provider. He was at our office and was found to be 77% on room air. He was able to take deep breaths and increase his oxygen 88% he was directed to go to the ER. He was 97% on room air on arrival to the ER. On exam, he is breathing comfortably. He is in no apparent distress. He denies any recent nausea/vomiting/diarrhea/abdominal pains. Does report some right sided chest pain and being concerned with a pulled muscle because of, she has been coughing. He is currently on Revlimid and dexamethasone for multiple myeloma and follows with his cancer doctor regularly. He denies any recent travel. His respiratory panel was negative Chest x-ray with no evidence of pneumonia Chest CTA was negative for PE, severe pulmonary emphysema noted. Lucent bone lesion of the right seventh rib noted suggesting an enchondroma Right upper lobe consolidation noted suspicious for inflammation/infection Labs on arrival fairly unremarkable, troponin flat at 20.8, BNP 249, appears euvolemic on exam The patient was given IV Zosyn and IV Solu-Medrol in the ER The patient be admitted for further management of pneumonia Allergies Allergy/AdvReac Type Severity Reaction Status Date / Time shellfish derived Allergy Intermediate HIVES Verified 01/17/24 12:18 Home Medications Medication Instructions Recorded Confirmed Type aspirin 81 mg tablet,delayed 81 mg PO QAM 09/29/19 09/03/24 History release atorvastatin 80 mg tablet 80 mg PO QPM 09/29/19 09/03/24 History nitroglycerin 0.4 mg sublingual 0.4 mg sublingual UD PRN Chest Pain 09/29/19 09/03/24 History tablet calcium 250 mg (as 1 tab PO HS 10/05/20 09/03/24 History citrate)-vitamin D3 5 mcg (200 unit) tablet acyclovir 400 mg tablet 400 mg PO BID 07/18/22 09/03/24 History mirtazapine 15 mg tablet 15 mg PO HS 07/18/22 09/03/24 History ondansetron HCl 8 mg tablet 8 mg PO UD PRN Nausea 07/18/22 09/03/24 History lactobacillus combination no.4 3 0 mmu cells PO DAILY 08/22/23 09/03/24 History billion cell capsule (Probiotic) loperamide 2 mg capsule 2 mg PO UD PRN Diarrhea 08/22/23 09/03/24 History metoprolol tartrate 50 mg tablet 50 mg PO BID 08/22/23 09/03/24 History pantoprazole 20 mg tablet,delayed 20 mg PO BID 08/22/23 09/03/24 History release tramadol 50 mg tablet 50 mg PO UD PRN Pain 08/22/23 09/03/24 History cyanocobalamin (vitamin B-12) 1,000 mcg PO QAM 09/03/24 09/03/24 History 1,000 mcg tablet dexamethasone 4 mg tablet 20 mg PO UD 09/03/24 09/03/24 History lenalidomide 10 mg capsule 10 mg PO DIRECTED 09/03/24 09/03/24 History (Revlimid) Past Med/Surg History Problem List Encounter for pre-operative examination Hyponatremia COPD exacerbation COVID Acute hypoxic respiratory failure BREANN (acute kidney injury) (Acute) Elevated troponin (Acute) Hypoxia (Acute) Pneumonia (Acute) COVID-19 (Acute) Atrial flutter Substernal precordial chest pain (Acute) Atrial flutter with rapid ventricular response (Acute) Depression Nausea (Acute) ARF (acute renal failure) (Acute) Weakness (Acute) Acute hyperkalemia (Acute) Acute renal failure Hyperkalemia Recurrent Clostridioides difficile diarrhea Dehydration (Acute) Hypomagnesemia (Acute) C. difficile diarrhea (Acute) Hypocalcemia (Acute) Weakness (Acute) CIS (carcinoma in situ of bladder) Anemia Elevated BUN (Acute) Multiple myeloma (Acute) Bilateral pneumonia (Acute) Primary bladder malignant neoplasm Pneumonia Rib lesion Smoker Hypokalemia (Acute) Hypomagnesemia (Acute) COPD (chronic obstructive pulmonary disease) (Chronic) Atrial fibrillation (Acute) paroxysmal--on metoprolol, no anticoagulants per patient preference--most recent EKG 12/22/23 was SR--follows with [facility] GERD (gastroesophageal reflux disease) Coronary artery disease BMS (2014) follows with Dr. Geiger Hypertension Abdominal aortic aneurysm 5cm per 03/2020 CT- under surveillance by vascular Medical History Atrial fibrillation paroxysmal--on metoprolol, no anticoagulants per patient preference--most recent EKG 12/22/23 was SR--follows with [facility] Bilateral pneumonia hospitalized for this 07/2020 [facility] History of COVID-19 10/05/19 > tested at [place] 07/2023, hospitalized at [facility]>no residual symptoms History of kidney stones Arthritis Lung nodule, multiple per , refusing work up at present time History of myocardial infarction 2013 Hyperlipidemia COPD (chronic obstructive pulmonary disease) no inh Chronic steroid use Multiple myeloma reason for dexamethasone, revlimid & velcade History of pancreatitis GERD (gastroesophageal reflux disease) Coronary artery disease BMS (2014) follows with Dr. Geiger Hypertension Abdominal aortic aneurysm 5cm per 03/2020 CT- under surveillance by vascular Anemia Bladder cancer dx March 2020; hx TURBT 04/27/2020 [facility] Surgical History Hx of right cataract extraction Hx of transurethral resection of prostate History of colonoscopy History of tooth extraction History of cystoscopy History of cardiac catheterization 2013 [facility] - 1 stent History of cholecystectomy Family History Other Heart disease Social History Smoking Status: Current every day smoker Tobacco Type: Cigarettes Cigarettes Per Day: 5-7; Second Hand Exposure: Yes; Do You Dip or Chew Tobacco: No; Hx Alcohol Use: Yes Hx Substance Use: Yes Last Used Substance Other:: uses marijuana ~2 puffs daily; remote hx of use of cocaine, amphetamines Substance Use Type Other:: marijuana once weekly Preferred Language: Italian Communication Ability: Effective Visual Impairment: No Limitations Set Up Machinist Required: No Beliefs That Will Affect Care: None marital status: Current Living Situation: Spouse Feels Safe at Home: Yes Assistive Devices: None Review of Systems Review of Systems: All systems reviewed & are unremarkable except as noted in HPI & below Physical Exam Constitutional: WD/WN, vitals as above Eyes: PERRL, conjunctivae normal, anicteric sclerae ENMT: external ear and nose normal, oropharynx normal Neck: trachea midline, no thyromegaly Respiratory: normal respiratory effort, lungs clear to auscultation no labored breathing and no audible wheezes Auscultation: + diminished lung sounds Cardiovascular: RRR, no murmur, no edema Gastrointestinal (Abdomen): normal bowel sounds, soft, nontender, no hepatosplenomegaly Skin: no rashes, warm and dry Neurologic: PERRL, EOMI, accommodation nl, no face palsy, no dysarthria Psychiatric: A+Ox3, euthymic affect Results & Data Results & Data Vital Signs (Past 12 Hours) Vital Signs Temp Pulse Pulse Resp BP BP Pulse Ox 09/03/24 14:15 80 18 111/80 97 09/03/24 12:50 83 09/03/24 12:35 84 18 97 09/03/24 12:33 82 18 126/85 97 09/03/24 12:04 36.5 C 87 18 119/82 97 O2 Del Method 09/03/24 14:15 Room Air 09/03/24 12:50 09/03/24 12:35 Room Air 09/03/24 12:33 Room Air 09/03/24 12:04 Room Air Diagnostic Findings Laboratory Results WBC 10.03 K/ul (4.8-10.8) 09/03/24 12:20 RBC 3.80 M/uL (4.70-6.10) L 09/03/24 12:20 Hgb 11.9 g/dl (14.0-18.0) L 09/03/24 12:20 Hct 36.7 % (42.0-52.0) L 09/03/24 12:20 MCV 96.6 fL (80.0-100.0) 09/03/24 12:20 MCH 31.3 pg (25.0-34.0) 09/03/24 12:20 MCHC 32.4 g/dL (32.0-36.0) 09/03/24 12:20 RDW Std Deviation 56.5 fL (36.4-46.3) H 09/03/24 12:20 RDW Coeff of Andrew 15.9 % (11.5-14.5) H 09/03/24 12:20 Plt Count 216 K/uL (130-400) 09/03/24 12:20 MPV 11.4 fL (9.4-12.4) 09/03/24 12:20 Immature Gran % (Auto) 1.9 % 09/03/24 12:20 Neut % (Auto) 78.2 % 09/03/24 12:20 Lymph % (Auto) 8.3 % 09/03/24 12:20 Oxford % (Auto) 6.1 % 09/03/24 12:20 Eos % (Auto) 5.1 % 09/03/24 12:20 Baso % (Auto) 0.4 % 09/03/24 12:20 Neut # (Auto) 7.85 K/uL (1.40-6.50) H 09/03/24 12:20 Lymph # (Auto) 0.83 K/uL (1.20-3.40) L 09/03/24 12:20 Oxford # (Auto) 0.61 K/uL (0.11-0.59) H 09/03/24 12:20 Eos # (Auto) 0.51 K/uL (0.00-0.50) H 09/03/24 12:20 Baso # (Auto) 0.04 K/uL (0.00-0.20) 09/03/24 12:20 Immature Gran # (Auto) 0.19 K/uL (0.01-0.20) 09/03/24 12:20 PT 11.0 Seconds (9.0-12.0) 09/03/24 12:20 INR 1.0 (0.9-1.1) 09/03/24 12:20 APTT 25 Seconds (21-31) 09/03/24 12:20 PTT Ratio 0.9 09/03/24 12:20 Sodium 138 mmol/L (136-145) 09/03/24 12:20 Potassium 4.6 mmol/L (3.5-5.1) 09/03/24 12:20 Chloride 104 mmol/L (98-107) 09/03/24 12:20 Carbon Dioxide 26 mmol/L (21-32) 09/03/24 12:20 Anion Gap 8 (3-11) 09/03/24 12:20 BUN 21 mg/dl (6-23) 09/03/24 12:20 Creatinine 1.32 mg/dl (0.6-1.4) 09/03/24 12:20 Est Cr Clr Drug Dosing 47.3 ml/min 09/03/24 12:20 eGFR 57.31 09/03/24 12:20 BUN/Creatinine Ratio 15.9 (10-20) 09/03/24 12:20 Glucose 107 mg/dl (70-99(Fasting)) H 09/03/24 12:20 Lactate 1.4 mmol/L (0.4-2.0) 09/03/24 12:40 Calcium 8.4 mg/dl (8.6-10.3) L 09/03/24 12:20 Magnesium 1.7 mg/dl (1.7-2.4) 09/03/24 12:20 Total Bilirubin 0.6 mg/dl (0.2-1.0) 09/03/24 12:20 AST 14 U/L (13-39) 09/03/24 12:20 ALT 9 U/L (7-52) 09/03/24 12:20 Alkaline Phosphatase 80 U/L (34-104) 09/03/24 12:20 Troponin I High Sens 20.8 pg/ml (0-20) H 09/03/24 14:34 B-Natriuretic Peptide 249 pg/ml (0-100) H 09/03/24 15:06 Total Protein 6.7 gm/dl (6.0-8.3) 09/03/24 12:20 Albumin 3.8 gm/dl (3.4-5.0) 09/03/24 12:20 Globulin 2.9 gm/dl (2.5-4.0) 09/03/24 12:20 Albumin/Globulin Ratio 1.3 (0.9-2) 09/03/24 12:20 Adenovirus (PCR) Not Detected (NotDetected) 09/03/24 12:20 B. pertussis DNA (PCR) Not Detected (NotDetected) 09/03/24 12:20 B.parapertussis DNA PCR Not Detected (NotDetected) 09/03/24 12:20 C. pneumoniae DNA (PCR) Not Detected (NotDetected) 09/03/24 12:20 Coronavirus OC43 (PCR) Not Detected (NotDetected) 09/03/24 12:20 Coronavirus HKU1 (PCR) Not Detected (NotDetected) 09/03/24 12:20 Coronavirus 229E (PCR) Not Detected (NotDetected) 09/03/24 12:20 SARS-CoV-2 (PCR) Not Detected (NotDetected) 09/03/24 12:20 Coronavirus NL63 (PCR) Not Detected (NotDetected) 09/03/24 12:20 Human Metapneumovir PCR Not Detected (NotDetected) 09/03/24 12:20 Influenza Type A (PCR) Not Detected (NotDetected) 09/03/24 12:20 Influenza Type B (PCR) Not Detected (NotDetected) 09/03/24 12:20 M. pneumoniae (PCR) Not Detected (NotDetected) 09/03/24 12:20 Parainfluenza 1 (PCR) Not Detected (NotDetected) 09/03/24 12:20 Parainfluenza 2 (PCR) Not Detected (NotDetected) 09/03/24 12:20 Parainfluenza 3 (PCR) Not Detected (NotDetected) 09/03/24 12:20 Parainfluenza 4 (PCR) Not Detected (NotDetected) 09/03/24 12:20 RSV (PCR) Not Detected (NotDetected) 09/03/24 12:20 Entero/Rhino (PCR) Not Detected (NotDetected) 09/03/24 12:20 Impressions Chest X-Ray 09/03/24 12:20 XR chest 1V portable CLINICAL HISTORY: sob TECHNIQUE: Single frontal radiograph of the chest was obtained. Comparison: Comparison is made to chest radiograph 08/22/2023 FINDINGS: No lines and tubes are seen. Cardiomegaly is noted. The lungs are clear. No evidence of pleural effusion or pneumothorax. IMPRESSION: No acute abnormalities and in particular no radiographic evidence of pneumonia. Previously noted airspace opacity has essentially resolved. ACT 112: Negative or not required by law. Electronically signed by: Tad Younger M.D. 09/03/2024 12:40 PM Chest CTA 09/03/24 13:33 CT angio chest PE protocol CT DOSE: 774.97 mGy.cm HISTORY: 74 years-old Male with PE. Acute cough with shortness of breath TECHNIQUE: Multiple CTA images of the chest were obtained after the intravenous administration of 119 ml Optiray. Coronal and sagittal MIPS were obtained from the axial data set and were submitted for review. All measurements were obtained according to NASCET criteria. A dose lowering technique was utilized adhering to the principles of ALARA. COMPARISON: Chest CT 08/22/2023, 04/25/2020. FINDINGS: Unremarkable thyroid. No lymphadenopathy. Mild cardiomegaly with extensive coronary artery calcifications. Mild dilation of the ascending thoracic aorta at the level of the main pulmonary artery, 4.3 cm. This is unchanged from prior. No pulmonary emboli identified. Severe pulmonary emphysema redemonstrated. Subpleural fibrotic changes are noted along with patchy subpleural groundglass densities in the mid to lower lung zones, right greater than left. There is improved aeration of the subpleural right upper lobe compared to the prior study. Progressive subpleural opacities within the right middle lobe lateral subpleural segment on image 96 series 4 is 9 mm nodular component. Mild subcentimeter nodular consolidative foci within the right lower lobe has slightly progressed. Stable solid nodules in the left lower lobe measure up to 5 mm. Central airways are patent. Cholecystectomy. Bilateral perinephric stranding. There are a few hepatic cysts noted. No acute fracture. Degenerative changes of the shoulders and spine with chronic appearing thoracic compression deformities. A lucent expansile lesions within the posterior lateral aspect of the right seventh rib with cortical thinning which appears more conspicuous on the prior study. IMPRESSION: 1. No pulmonary emboli identified. 2. Severe pulmonary emphysema with chronic fibrosis. 3. There is improved aeration of the subpleural right upper lobe compared to the prior study, however there is new subtle nodular consolidative foci present within the right middle and lower lobes. These findings are likely infectious or inflammatory, however 3 month follow-up chest CT recommended. 4. No lymphadenopathy. 5. Expansile lucent bone lesion of the right seventh rib. This lesion has been present dating back to the exam from 2019 where it demonstrated a healing subacute associated pathologic fracture. This may represent an enchondroma. ACT 112: Negative or not required by law. The above report was generated using voice recognition software. It may contain grammatical, syntax or spelling errors. Electronically signed by: Quirino Soto M.D. 09/03/2024 2:37 PM Code Status & VTE Plan VTE Prophylaxis Plan VTE Prophylaxis will be ordered: Yes Supervising Physician Co-Signing Physician Notes 74-year-old male with PMH of multiple myeloma, C. difficile x 2, COPD, A-fib, GERD, CAD, HTN presented to the ED 09/03 with complaint of cough productive of sputum (patient not able to comment on the color of the sputum] for about 1 week ago [employer], associated with intermittent shortness of breath and some abdominal pain secondary to excessive coughing. Patient denies any wheezing or chest tightness. He was noted to be saturating at 77% on room air at PCP office today which improved to 88% w/ deep breathing and hence he was sent to the ED for evaluation. Patient denies fever, nausea, vomiting, diarrhea. Labs and imaging reviewed WBC WNL, CMP WNL, troponin mildly elevated/flat trend [dementia ischemia secondary to acute illness], RPR negative. CTA chest with no PE, concern for consolidative foci within the right middle and lower lobes. Comm acquired pneumonia: Continue with IV antibiotic (rocephin) and azithromax, p.o. vancomycin as prophylaxis for history of C diff. c/w probiotic. no need for continued steroid as patient with no complaint of wheezing or chest tightness [employer] and no wheezing/rhonchi heard during exam. Repeat chest imaging in about 2 to 3 months time. On exam: GENERAL: Alert and oriented x3. NAD, on RA. HEENT: No pallor, no icterus. Pupils equal, round and reactive to light. Oral mucosa moist. NECK: No JVD, no neck masses. HEART: S1 and S2 heard. Regular rate and rhythm. No murmur, no gallop. RESPIRATORY SYSTEM: Normal AP diameter. No accessory muscle use. No wheezing, no crackles. ABDOMEN: Soft, bowel sounds present, nontender, no distention. CENTRAL NERVOUS SYSTEM: No facial droop. Speech is clear. Obeys simple commands. Moves extremities. EXTREMITIES: No edema, no erythema seen. I have seen and examined the patient and have discussed the case with the provider above. I agree with the assessment and plan as stated. time spent: 25 min (2) Multiple myeloma Multiple myeloma remission status: unspecified Qualified Code(s): C90.00 - Multiple myeloma not having achieved remission
--- NOTE | 2024-09-03 17:21 | Electrocardiogram Report ---
Test Reason : Blood Pressure : */* mmHG Vent. Rate : 77 BPM Atrial Rate : 77 BPM P-R Int : 150 ms QRS Dur : 98 ms QT Int : 402 ms P-R-T Axes : 46 13 74 degrees QTcB Int : 454 ms Atrial fibrillation Left ventricular hypertrophy with repolarization abnormality Abnormal ECG When compared with ECG of 22-Aug-2023 12:00, No significant change Confirmed by Evan Sandra ([id number]) on 09/03/2024 5:20:35 PM Referred By: REFERRED SELF Confirmed By: Evan Sandra
[2024-09-03] MEDS ORDERED: ACETAMINOPHEN 325 MG TAB PO PRN (19:01)
[2024-09-03] MEDS: LACTOBACILLUS ACIDOPHILUS 1 GM PACK PO SCH (19:44)
[2024-09-03] MEDS: CHERRY SYRUP 5 ML UDP PO SCH (19:46)
[2024-09-03] MEDS: VANCOMYCIN HCL 250 MG/5 ML SOLN PO SCH (19:48)
[2024-09-03] MEDS: cefTRIAXone SODIUM 1,000 MG/50 ML BAG IV SCH (19:48)
[2024-09-03] MEDS: AZITHROMYCIN 250 MG TAB PO SCH (19:54)
[2024-09-03] MEDS: ENOXAPARIN INJ 40 MG/0.4 ML SYR SQ SCH (19:56)
[2024-09-03] MEDS: guaiFENesin SUGAR FREE 200 MG/10 ML UDC PO PRN (19:56)
[2024-09-03] MEDS: ACYCLOVIR 400 MG TAB PO SCH (20:36)
[2024-09-03] MEDS: METOPROLOL TARTRATE 50 MG TAB PO SCH (20:36)
[2024-09-03] MEDS: PANTOprazole 40 MG TAB PO SCH (20:37)
[2024-09-03] MEDS: ATORVASTATIN 40 MG TAB PO SCH (20:37)
[2024-09-03] MEDS: MIRTAZAPINE TAB 15 MG TAB PO SCH (20:38)
[2024-09-03] MEDS: MELATONIN 3 MG TAB PO PRN (23:50)
[2024-09-04] MEDS: traMADol HCL 50 MG TABLET PO PRN (01:24)
[2024-09-04 06:34] LABS: Basophils # (auto) 0.02 K/uL (0.00-0.20); Basophils % (auto) 0.2 %; Eosinophils # (auto) 0.05 K/uL (0.00-0.50); Eosinophils % (auto) 0.5 %; Hematocrit (blood only) 32.8 % (42.0-52.0); Hemoglobin 10.5 g/dl (14.0-18.0); Immature Granulocytes # (auto) 0.17 K/uL (0.01-0.20); Immature Granulocytes % (auto) 1.7 %; Lymphocytes # (auto) 0.68 K/uL (1.20-3.40); Lymphocytes % (auto) 6.9 %; Mean Corpuscular Hemoglobin 30.9 pg (25.0-34.0); Mean Corpuscular Volume 96.5 fL (80.0-100.0); Mean Platelet Volume 11.6 fL (9.4-12.4); Neutrophils # (auto) 8.69 K/uL (1.40-6.50); Neutrophils % (auto) 87.7 %; Platelet Count 222 K/uL (130-400); RDW Standard Deviation 56.5 fL (36.4-46.3); White Blood Count 9.91 K/ul (4.8-10.8)
[2024-09-04 06:51] LABS: Albumin Globulin Ratio 1.2 (0.9-2); Albumin Level 3.3 gm/dl (3.4-5.0); Bilirubin,Total 0.3 mg/dl (0.2-1.0); Calcium 8.3 mg/dl (8.6-10.3); Globulin 2.7 gm/dl (2.5-4.0); Potassium 4.3 mmol/L (3.5-5.1)
[2024-09-04] MEDS: dexAMETHasone 4 MG TAB PO SCH (07:35)
[2024-09-04] MEDS: CYANOCOBALAMIN (B-12) 500 MCG TABLET PO SCH (07:35)
[2024-09-04] MEDS: ASPIRIN 81 MG ECTAB PO SCH (07:36)
--- NOTE | 2024-09-04 15:34 | Hospitalist Progress Note ---
Date of Service September 04, 2024 Assessment & Plan (1) Hypoxia: (2) Multiple myeloma: (3) COPD (chronic obstructive pulmonary disease): (4) Atrial fibrillation: (5) Hypertension: (6) GERD (gastroesophageal reflux disease): Plan The patient is a 74-year-old male with a past medical history of multiple myeloma, C. difficile x 2, COPD, A-fib, GERD, CAD, HTN who presents to the ED on 09/03/2024 with complaints of shortness of breath intermittently and a cough x 7 days. Acute hypoxic respiratory failure Community-acquired pneumonia Suspected COPD O2 saturation <90% on room air noted at PCPs office Hypoxia resolved on arrival to the ER Continue IV ceftriaxone/Zithromax for CAP Chest imaging consistent with COPD, patient denies any underlying diagnosis of this Will need to follow up with pulm for PFTs/treatment, plan for repeat chest CT in 3 months Symptomatic management 09/04/24- improving Hx C. difficile: Continue lactobacillus, prophylactic Vanco ordered while on IV antibiotics Hx multiple myeloma: On Revlimid and Decadron at home, continue Decadron every Monday, hold Revlimid for now Hx AF/CAD/cardiac stents: Continue metoprolol/aspirin, remains in sinus rhythm, telemetry monitoring Full code DVT prophylaxis: Lovenox Admission and Anticipated Discharge Date Admission Date: September 03, 2024 Subjective Patient was seen sitting up in bed Notes significant improvement in symptoms. States his congestion has improved as well as his shortness of breath. States he no longer requires oxygen States the coughing fits have also eased up anxious for discharge Review of Systems Review of Systems: All systems reviewed & are unremarkable except as noted in Subjective Physical Exam Physical Exam: General: Alert, oriented. No acute distress Neuro: No gross deficits HEENT: NC/AT CV: RRR Resp: Breath sounds decreased bilaterally Abdomen: Soft, nontender Extremities: No edema in lower extremities bilaterally. Results & Data Results & Data Vital Signs (Past 12 Hours) Vital Signs Temp Pulse Pulse Resp BP Pulse Ox O2 Del Method 09/04/24 14:13 71 09/04/24 11:33 36.6 C 71 18 109/64 95 Room Air 09/04/24 11:03 Room Air 09/04/24 08:00 78 09/04/24 07:32 36.5 C 78 20 111/69 97 Room Air Diagnostic Findings Chest X-Ray 09/03/24 12:20 XR chest 1V portable CLINICAL HISTORY: sob TECHNIQUE: Single frontal radiograph of the chest was obtained. Comparison: Comparison is made to chest radiograph 08/22/2023 FINDINGS: No lines and tubes are seen. Cardiomegaly is noted. The lungs are clear. No evidence of pleural effusion or pneumothorax. IMPRESSION: No acute abnormalities and in particular no radiographic evidence of pneumonia. Previously noted airspace opacity has essentially resolved. ACT 112: Negative or not required by law. Electronically signed by: Tad Younger M.D. 09/03/2024 12:40 PM Chest CTA 09/03/24 13:33 CT angio chest PE protocol CT DOSE: 774.97 mGy.cm HISTORY: 74 years-old Male with PE. Acute cough with shortness of breath TECHNIQUE: Multiple CTA images of the chest were obtained after the intravenous administration of 119 ml Optiray. Coronal and sagittal MIPS were obtained from the axial data set and were submitted for review. All measurements were obtained according to NASCET criteria. A dose lowering technique was utilized adhering to the principles of ALARA. COMPARISON: Chest CT 08/22/2023, 04/25/2020. FINDINGS: Unremarkable thyroid. No lymphadenopathy. Mild cardiomegaly with extensive coronary artery calcifications. Mild dilation of the ascending thoracic aorta at the level of the main pulmonary artery, 4.3 cm. This is unchanged from prior. No pulmonary emboli identified. Severe pulmonary emphysema redemonstrated. Subpleural fibrotic changes are noted along with patchy subpleural groundglass densities in the mid to lower lung zones, right greater than left. There is improved aeration of the subpleural right upper lobe compared to the prior study. Progressive subpleural opacities within the right middle lobe lateral subpleural segment on image 96 series 4 is 9 mm nodular component. Mild subcentimeter nodular consolidative foci within the right lower lobe has slightly progressed. Stable solid nodules in the left lower lobe measure up to 5 mm. Central airways are patent. Cholecystectomy. Bilateral perinephric stranding. There are a few hepatic cysts noted. No acute fracture. Degenerative changes of the shoulders and spine with chronic appearing thoracic compression deformities. A lucent expansile lesions within the posterior lateral aspect of the right seventh rib with cortical thinning which appears more conspicuous on the prior study. IMPRESSION: 1. No pulmonary emboli identified. 2. Severe pulmonary emphysema with chronic fibrosis. 3. There is improved aeration of the subpleural right upper lobe compared to the prior study, however there is new subtle nodular consolidative foci present within the right middle and lower lobes. These findings are likely infectious or inflammatory, however 3 month follow-up chest CT recommended. 4. No lymphadenopathy. 5. Expansile lucent bone lesion of the right seventh rib. This lesion has been present dating back to the exam from 2019 where it demonstrated a healing subacute associated pathologic fracture. This may represent an enchondroma. ACT 112: Negative or not required by law. The above report was generated using voice recognition software. It may contain grammatical, syntax or spelling errors. Electronically signed by: Quirino Soto M.D. 09/03/2024 2:37 PM (2) Multiple myeloma Multiple myeloma remission status: unspecified Qualified Code(s): C90.00 - Multiple myeloma not having achieved remission
--- OUTSIDE RECORDS SUMMARY | 2024-09-04 22:25 | External Medical Summary | Summary of Care ---
Author Name Unknown Organization [facility] Address [address] [place] [address] Phone [phone] Care Team Providers Care Tricot Knitting Machine Operator Name Role Phone MarcelinajaskaranJosea Oswaldo JIMÉNEZ Primary Care Provider [phone] Encounter Details Date Type Department Care Team (Late st Contact Info) Description 09/01/2024 Orders Only Hematology/Oncology, [address] [phone] Luann De La Cruz MD [address] [place] [address] Allergies Active Allergy Reactions Criticality Noted Date Comments Calcium Carb-Cholecalciferol 016 documented as of this encounter (statuses as of 09/01/2024) Medications ASPIRIN ADULT LOW DOSE 81 MG TBECIndications :Dyslipidemia, goal LDL below 100 TAKE 1 TABLET BY MOUTH EVERY DAY IN THE MORNING 90 Tab 3 8 Active Clobetasol Propionate 0.05 % External Cream (Temovate)Indic ations:Atopic dermatitis Apply topically to affected area 2 times a day. To affected area for up to two weeks. 60 g 1 2 Active Additional Information Patient taking differently:TopicalPRN, To affected area for up to two weeks., Reported on 12/16/2022 Ondansetron HCl 8 MG Oral Tablet (Zofran)Indicat ions:Multiple myeloma (HCC) Take by mouth 1 Tablet every 8 hours as needed for Nausea. 30 Tablet 2 2 Active Prochlorperazin e Maleate 10 MG Oral Tablet (Compazine)Asha cations:Multipl e myeloma (HCC) Take by mouth 1 Tablet every 6 hours as needed for Nausea. 30 Tablet 2 2 Active Probiotic Acidophilus Oral Capsule Take by mouth daily. Active Nitroglycerin 0.4 MG Sublingual Tablet Sublingual (Nitrostat)Asha cations:Atheros clerosis of mentasta coronary artery of mentasta heart without angina pectoris One tablet under tongue if needed for chest pain. May repeat 3 times. If chest pain continues, call [phone] 75 Tablet 3 3 Active traMADol HCl 50 MG Oral Tablet (Ultram)Indicat ions:Multiple myeloma, remission status unspecified (HCC) Take 1 Tablet by mouth every 6 hours as needed for Pain, Moderate. 30 Tablet 3 Active Ipratropium-Alb uterol 0.5-2.5 (3) MG/3ML Inhalation Solution (Duoneb)Indicat ions:BLACK (dyspnea on exertion),Wheez ing,Pneumonia due to COVID-19 virus Inhale 3 mL via nebulizer in the morning and 3 mL at noon and 3 mL in the evening and 3 mL before bedtime. 100 mL 1 3 Active Additional Information Patient not taking.Reported on 06/18/2024 Metoprolol Tartrate 50 MG Oral Tablet (Lopressor)Asha cations:HTN, goal below 140/90,Paroxysm al atrial flutter (HCC) Take 1 Tablet by mouth in the morning and 1 Tablet before bedtime. 180 Tablet 4 Active Acyclovir 400 MG Oral Tablet (Zovirax)Indica tions:Multiple myeloma not having achieved remission (HCC) Take 1 Tablet by mouth in the morning and 1 Tablet before bedtime. 180 Tablet 3 4 Active dexAMETHasone 4 MG Oral Tablet (Decadron)Indic ations:Multiple myeloma (HCC) Take 20mg (5 tablets) once a week 60 Tablet 3 4 Active Mirtazapine 15 MG Oral Tablet (Remeron)Indica tions:Poor appetite TAKE 1 TAB BY MOUTH AT BEDTIME. TO HELP WITH APPETITE, AND MOOD. 90 Tablet 3 4 Active Atorvastatin Calcium 80 MG Oral Tablet (Lipitor)Indica tions:Dyslipide tashi, goal LDL below 100 TAKE 1 TABLET BY MOUTH EVERY DAY IN THE MORNING 90 Tablet 4 Active Pantoprazole Sodium 20 MG Oral Tablet Delayed Release (Protonix) Take 1 Tablet by mouth in the morning. 30 minutes before the first meal of the day. Do not crush, split or chew the tablet. 90 Tablet 1 4 Active Cyanocobalamin 1000 MCG Oral Tablet (Cyanocobalamin ) Take 1 Tablet by mouth in the morning. 90 Tablet 1 4 Active Lenalidomide 10 MG Oral Capsule (Revlimid)Indic ations:Multiple myeloma not having achieved remission (HCC) Take 1 Capsule by mouth in the morning. For 14 days on, 7 days off of a 21 day cycle. Take medication same time every day and consistently with or without food.. 14 Capsule 4 Active [facility] Calcium Citrate+D3 Petites 200-6.25 MG-MCG Oral Tablet (Calcium Citrate-Vitamin D)Indications:M ultiple myeloma not having achieved remission (HCC),Hypocalce tashi Take 1 Tablet by mouth in the morning. 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 lving mentasta heart without angina pectoris 05/22/2019 Old myocardial infarct 12/06/2018 S/p bare metal coronary artery stent 01/12/2015 Tobacco use disorder 04/16/2012 HTN, goal below 130/80 2012 GERD (gastroesophageal reflux disease) 2 documented as of this encounter (statuses as of 09/01/2024) Resolved Problems Problem Noted Date Diagnosed Date Resolved Date Coronary artery disease of n ative artery of mentasta heart with stable angina pectoris 08/21/2023 08/21/2023 Dehydration 02/01/2021 03/29/2022 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 Atherosclerosis of coronary artery without angina pectoris 09/14/2018 03/29/2022 ST elevation myocardial infarction (STEMI) 03/20/2017 12/06/2018 Lung nodule 10/14/2015 03/29/2022 ST elevation myocardial infa rction (STEMI) involving other coronary artery 05/19/2015 03/20/[address] elevation MO (STEMI) 01/12/201508/26 Myocardial infarction 02/03/20142017 COPD, moderate 08/27/2013 08/06/2020 Overview: Per COPD GOLD Classification Noncompliance 03/13/2013 03/21/2017 Anemia 05/03/2012 03/29/2022 COPD, severity to be determined 04/16/2012 08/27/2013 Dyslipidemia, goal LDL below 70 04/16/2012 03/29/2022 documented as of this encounter (statuses as of 09/01/2024) Immunizations Name Administration Dates Next Due COVID-19 mRNA, LNP-s, No Pre serve, 2-Dose Series (Comparisim) 08/28/2021,02/18/2021,01/28/2021 Pneumococcal Conjugate Vacc, 13 Valent (Prevnar) 07/09/2020 Pneumococcal Polysaccharide PPV23 (Pneumovax) 07/25/2022 Season Influenza, Quad, PF, Adjuvanted, 65+ Yrs, IM (FLUAD) 07/09/2020 Seasonal Influenza Vac., MDV , IM, 0.5 mL (Fluzone) 07/16/2013,07/10/2012 Seasonal Influenza, High Dos e, Trivalent, PF, IM (Fluzone HD) 06/18/2024 Seasonal Influenza, Quadriva lent Hd (Fluzone Hd) 07/10/2023,06/23/2022,07/12/2021 documented as of this encounter Social History Tobacco Use Types Packs/Day Years Used Date Smoking Tobacco: Former Cigarettes 1 40 1 10/22/1982 - 08/22/2023 Passive Smoke Exposure: Current Smokeless Tobacco: Never Alcohol Use Standard Drinks/Week Comments No 0 (1 standard drink = 0.6 oz pure alcohol) chronic alcoholic, sober for years now PHQ-2 Answer Date Recorded PHQ Adult Total Score 2 01/12/2024 Hunger Vital Sign Answer Date Recorded Within the past 12 months, y ou worried that your food would run out before you got the money to buy more. Patient declined Within the past 12 months, t he food you bought just didn't last and you didn't have money to get more. Patient declined Childcare Answer Date Recorded Do you feel overwhelmed with taking care of a child, family member or friend? No 01/12/2024 Does your family need help f inding childcare? (Household - for ages 0-17 years) Not on file 01/12/2024 Clothing Answer Date Recorded Have you been unable to get clothing when it was really needed? No 01/12/2024 Is your family able to get c lothes or diapers when needed? (Household - for ages 0-17 years) Not on file 01/12/2024 Personal Safety Answer Date Recorded Do you feel unsafe or have concerns for your saf ety? No 01/12/2024 Do you have concerns for you r family's safety? (Household - for ages 0-17 years) Not on file 01/12/2024 Utilities Answer Date Recorded Do you have trouble paying y our heating, water, or electric bill? No 01/12/2024 Is your family able to pay t he heat, water, or electric bill? (Household - for ages 0-17 years) Not on file 01/12/2024 Does your family have access to good internet? (Household - for ages 0-17 years) Not on file 01/12/2024 Employment Status Answer Date Recorded Are you unemployed or without regular income? No 01/12/2024 Does the household have a re gular source of income? (Household - for ages 0-17 years) Not on file 01/12/2024 Social Connections Answer Date Recorded How often do you feel lonely or isolated from th ose around you? Never 01/12/2024 Financial Resource Strain Answer Date R ecorded Do you have any trouble payi ng for your medications, or do you think you might in the future? No 01/12/2024 Does your family have troubl e paying for medicine? (Household - for ages 0-17 years) Not on file 01/12/2024 Transportation Needs Answer Date Record ed READ ONLY Do you have troubl e getting a ride to medical visits or work? Never True 01/12/2024 Does your family have a hard time getting a ride to doctors visits? (Household - for ages 0-17 years) Not on file 01/12/2024 Has lack of transportation k ept you from medical appointments, meetings, work, or from getting things needed for daily living? Check all that apply. (Adult - for ages 18 years and over) Not on file 01/12/2024 Do you (or your family) have trouble finding or paying for a ride (transportation)? (Household - for ages 0-17 years) Not on file 01/12/2024 Housing Stability Answer Date Recorded Do you currently live in a s helter or have no steady place to sleep at night? No 01/12/2024 READ ONLY Do you think you a re at risk of becoming homeless? No 01/12/2024 Does your family worry about paying for your home or becoming homeless? (Household - for ages 0-17 years) Not on file 0 01/12/2024 Are you homeless or worried that you might be in the future? (Adult - for ages 18 years and over) Not on file Are you (or your family) michaela eless or worried that you might be in the future? (Household - for ages 0-17 years) Not on file Food Insecurity Answer Date Recorded Do you need food for this week? No 01/12/2024 Are you able to get enough f ood for your family? (Household - for ages 0-17 years) Not on file 01/12/2024 Does your family need food t his week? (Household - for ages 0-17 years) Not on file 01/12/2024 Do you always have enough fo od for your family? (Household - for ages 0-17 years) Not on file 01/12/2024 Sex and Gender Information Value Date Recorded Sex Assigned at Male 07/18/2022 2:25 PM EDT Legal Sex Male 7:22 AM EST Gender Identity Male 07/18/2022 2:25 PM EDT Sexual Orientation Straight 10/11/2023 7: 03 PM EST documented as of this encounter Plan of Treatment Upcoming Encounters Date Type Department Care Team (Late st Contact Info) Description 09/02/2024 10:40 AM EST Office Visit Family [facility] [address] [place] [phone] JanuaryAshok MD [address] [place] [address] 09/03/2024 10:00 AM EST Laboratory Laboratory, [address] [phone] [place], Laboratory [address] [place] [id number] 09/04/2024 9:00 AM EST Pharmacy Pharmacy Hematology Oncology [facility] [address] [place] [address] [facility] Hem/Onc [address] [place] [address] 09/04/2024 10:00 AM EST Hem/Onc Treatment Hematology/Oncology Treatment, [place] [address] [place] [phone] Tresa, Chair 6 Hem Onc Scenery [address] [place] [address] 09/05/2024 1:15 PM EST Imaging Radiology [facility]st [facility], [place] [address] [place] [address] 09/11/2024 1:30 PM EST Office Visit Vascular Surgery, [facility] [address] [facility] [place] [address] Darrin Lowe MD [address] [place] [address] 09/16/2024 10:00 AM EST Laboratory Laboratory, [facility] [address] [place] [phone] [place], [address] [address] 09/17/2024 12:30 PM EST Office Visit Hematology/Oncology [facility] [place]resa [place] [address] [place] [phone] Luann De La Cruz MD [address] [place] [address] 09/17/2024 1:00 PM EST Hem/Onc Treatment Hematology/Oncology Treatment, [place] [address] [place] [phone] Tresa, Chair 9 Hem Onc Scene [address] [facility] [place] [address] Scheduled Procedures Name Priority Associated Diagnoses Date/Ti me COLONOSCOPY FLEXIBLE PROXIMAL DIAGNOSTIC Recall History of colon polyps Health Maintenance Due Date Last Done Comments Alpha-1 Antitrypsin 02/13/1970 Hepatitis C Screening 02/13/1970 Cologuard 02/13/1997 Fecal Occult Blood Test 02/13/1997 Sigmoidoscopy 02/13/1997 Adult Wellness Visit 02/13/2018 Colonoscopy 05/23/2020 05/23/2017 Colorectal Cancer Screening 05/23/2020 COVID-19 Vaccine ( season) 2024 08/28/2021, 02/18/2021, 01/28/2021 Depression Screening 01/11/2025 01/12/2024, 07/12/2017 (Declined) GFR 02/17/2025 08/20/2024, 07/26, 07/23/2024, Additional history exists CKD PHOS USE SMARTSET 15768 07/09/202506/25, 02/13/2023, 02/11/2021 Albumin/Creatinine Ratio 07/23/2025 07/23/2024, 08/25 CKD HGB USE SMARTSET 40790 08/20/202508/20, 08/20/2024, 08/06/2024, Additional history exists O2 ASSESSMENT COMPLETED IN PAST YEAR FOR COPD 08/21/2025 08/21/2024 Pneumococcal Vaccine: 65+ Years Completed 07/25/2022, 07/09/2020 Lung Cancer Screening Completed 06/11/2024 , 03/14/2022, 06/03/2020, Additional history exists Influenza Vaccine (FLU shot) Completed 06/18/2024, 07/10/2023, 06/23/2022, Additional history exists DTap/Tdap Vaccines Discontinued HPV (Gardasil) Vaccine Aged Out No lo nger eligible based on patient's age to complete this topic Hepatitis B Vaccine Aged Out No longe r eligible based on patient's age to complete this topic MENINGOCOCCAL (MENACTRA/MENVEO) Aged Out No longer eligible based on patient's age to complete this topic Zoster Vaccines Discontinued documented as of this encounter Medical Devices Not on filedocumented as of this encounter Care Teams Tricot Knitting Machine Operator Relationship Specialty Start Date End Date Savanah Geiger DO [address] [place] [facility] [place] [address] PCP - General Family Medicine 04/11/12 documented as of this encounter
--- OUTSIDE RECORDS SUMMARY | 2024-09-04 22:25 | External Medical Summary | Summary of Care ---
Author Name Unknown Organization [facility] Address [address] [place] [address] Phone [phone] Care Team Providers Care Fmd Teacher Name Role Phone Savanah Geiger DO Primary Care Provider [phone] Reason for Visit * Reason Comments Chemotherapy Day 1, cycle 3 velca de * Episode Based Medications (Routine) - Authorized Specialty Diagnoses / Procedures Referred By Contnataliia t Referred To Contact Diagnoses Multiple myeloma not having achieved remission (HCC) Encounter for antineoplastic chemotherapy Procedures [place] INJECTION, BORTEZOMIB, 0.1MG Luann De La Cruz MD [address] [facility] [place] [address] Phone: tel: fax: Hematology/Oncology Treatment, [place] DEPT CLOSED - 08/08/23 [address] [place] [address] Phone: tel: fax: Referral ID Status Reason Start Date Expiration Date V isits Requested Visits Authorized [id number] Authorized 06/18/2024 06/19/2025 [id number] Encounter Details Date Type Department Care Team (Latest Contact Info) Description 08/21/2024 9:30 AM EST Hem/Onc Treatment Hematology/Oncolog y Treatment, [place] [address] [place] [address] Tresa, Chair [address] [place] [address] Multiple myeloma not having achieved remission (HCC)*; Encounter for antineoplastic chemotherapy Allergies Active Allergy Reactions Criticality Noted Date Comments Calcium Carb-Cholecalciferol 016 documented as of this encounter (statuses as of 09/02/2024) Medications ASPIRIN ADULT LOW DOSE 81 MG TBECIndications :Dyslipidemia, goal LDL below 100 TAKE 1 TABLET BY MOUTH EVERY DAY IN THE MORNING 90 Tab 3 07/04/20 18 Active Clobetasol Propionate 0.05 % External Cream (Temovate)Indic ations:Atopic dermatitis Apply topically to affected area 2 times a day. To affected area for up to two weeks. 60 g 1 10/15/19 22 Active Additional Information Patient taking differently:TopicalPRN, To affected area for up to two weeks., Reported on 12/16/2022 Ondansetron HCl 8 MG Oral Tablet (Zofran)Indicat ions:Multiple myeloma (HCC) Take by mouth 1 Tablet every 8 hours as needed for Nausea. 30 Tablet 2 02/25/20 22 Active Prochlorperazin e Maleate 10 MG Oral Tablet (Compazine)Asha cations:Multipl e myeloma (HCC) Take by mouth 1 Tablet every 6 hours as needed for Nausea. 30 Tablet 2 02/25/20 22 Active Probiotic Acidophilus Oral Capsule Take by mouth daily. Active Nitroglycerin 0.4 MG Sublingual Tablet Sublingual (Nitrostat)Asha cations:Atheros clerosis of [place] coronary artery of [place] heart without angina pectoris One tablet under tongue if needed for chest pain. May repeat 3 times. If chest pain continues, call 911 75 Tablet 3 03/20/20 23 Active traMADol HCl 50 MG Oral Tablet (Ultram)Indicat ions:Multiple myeloma, remission status unspecified (HCC) Take 1 Tablet by mouth every 6 hours as needed for Pain, Moderate. 30 Tablet 07/24/20 23 Active Ipratropium-Alb uterol 0.5-2.5 (3) MG/3ML Inhalation Solution (Duoneb)Indicat ions:BLACK (dyspnea on exertion),Wheez ing,Pneumonia due to COVID-19 virus Inhale 3 mL via nebulizer in the morning and 3 mL at noon and 3 mL in the evening and 3 mL before bedtime. 100 mL 1 09/01/20 23 Active Additional Information Patient not taking.Reported on 06/18/2024 Metoprolol Tartrate 50 MG Oral Tablet (Lopressor)Asha cations:HTN, goal below 140/90,Paroxysm al atrial flutter (HCC) Take 1 Tablet by mouth in the morning and 1 Tablet before bedtime. 180 Tablet 03/27/20 24 Active Acyclovir 400 MG Oral Tablet (Zovirax)Indica tions:Multiple myeloma not having achieved remission (HCC) Take 1 Tablet by mouth in the morning and 1 Tablet before bedtime. 180 Tablet 3 06/18/20 24 Active dexAMETHasone 4 MG Oral Tablet (Decadron)Indic ations:Multiple myeloma (HCC) Take 20mg (5 tablets) once a week 60 Tablet 3 06/18/20 24 Active Mirtazapine 15 MG Oral Tablet (Remeron)Indica tions:Poor appetite TAKE 1 TAB BY MOUTH AT BEDTIME. TO HELP WITH APPETITE, AND MOOD. 90 Tablet 3 06/28/20 24 Active Atorvastatin Calcium 80 MG Oral Tablet (Lipitor)Indica tions:Dyslipide tashi, goal LDL below 100 TAKE 1 TABLET BY MOUTH EVERY DAY IN THE MORNING 90 Tablet 06/28/20 24 Active Pantoprazole Sodium 20 MG Oral Tablet Delayed Release (Protonix) Take 1 Tablet by mouth in the morning. 30 minutes before the first meal of the day. Do not crush, split or chew the tablet. 90 Tablet 1 06/28/20 24 Active Cyanocobalamin 1000 MCG Oral Tablet (Cyanocobalamin ) Take 1 Tablet by mouth in the morning. 90 Tablet 1 07/10/20 24 Active Lenalidomide 10 MG Oral Capsule (Revlimid)Indic ations:Multiple myeloma not having achieved remission (HCC) Take 1 Capsule by mouth in the morning. For 14 days on, 7 days off of a 21 day cycle. Take medication same time every day and consistently with or without food.. 14 Capsule 08/20/20 24 Active [facility] Calcium Citrate+D3 Petites 200-6.25 MG-MCG Oral Tablet (Calcium Citrate-Vitamin D)Indications:M ultiple myeloma not having achieved remission (HCC),Hypocalce tashi Take 1 Tablet by mouth in the morning. 90 Tablet 1 08/15/20 22 024 Discontin ued(Refil l) documented as of this encounter (statuses as of 09/02/2024) Active Problems Problem Noted Date Diagnosed Date [...] cancer 04/24/2020 Coronary artery disease invo lving mi[place] heart without angina pectoris 05/22/2019 Old myocardial infarct 12/06/2018 S/p bare metal coronary artery stent 01/12/2015 Tobacco use disorder 04/16/2012 HTN, goal below 130/80 2012 GERD (gastroesophageal reflux disease) 2 documented as of this encounter (statuses as of 09/02/2024) Resolved Problems Problem Noted Date Diagnosed Date Resolved Date Coronary artery disease of n ative artery of [place] heart with stable angina pectoris 08/21/2023 08/21/2023 Dehydration 02/01/2021 03/29/2022 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 Atherosclerosis of coronary artery without angina pectoris 09/14/2018 03/29/2022 ST elevation myocardial infarction (STEMI) 03/20/2017 12/06/2018 Lung nodule 10/14/2015 03/29/2022 ST elevation myocardial infa rction (STEMI) involving other coronary artery 05/19/2015 03/20/20 ST elevation [place] (STEMI) 01/12/201508/26 Myocardial infarction 02/03/20142017 COPD, moderate 08/27/2013 08/06/2020 Overview: Per COPD GOLD Classification Noncompliance 03/13/2013 03/21/2017 Anemia 05/03/2012 03/29/2022 COPD, severity to be determined 04/16/2012 08/27/2013 Dyslipidemia, goal LDL below 70 04/16/2012 03/29/2022 documented as of this encounter (statuses as of 09/02/2024) Immunizations Name Administration Dates Next Due COVID-19 [...] 01/12/2024 Does the household have a re lar source of income? (Household - for ages [...] PM EST documented as of this encounter Last Filed Vital Signs Vital Sign Reading Time Taken Comments Blood Pressure 137/83 08/21/2024 9:41 AM EST Pulse 68 08/21/2024 9:41 AM EST Temperature 36.1 C (97 F) 08/21/2024 9:41 AM EST Respiratory Rate 18 08/21/2024 9:41 AM EST Oxygen Saturation 96% 08/21/2024 9:41 AM EST Inhaled Oxygen Concentration - - Weight 79.2 kg (174 lb 9.6 oz) 08/21/2024 9:41 A M EST Height - - Body Mass Index 26.55 06/26/2024 12:36 PM EDT documented in this encounter Nursing Notes * Chantel Rose RN - 08/21/2024 9:55 AM EST Injection given, patient tolerated well. Goals: Patient will remain free from injury. Possible barriers to meeting goals: none Stability of the patient: Moderately stable - low risk of patient condition declining or worsening Summary regarding today's goals: Met: Patient remained free from harm/injury during treatment. Patient left facility in stable condition. * Chantel Rose RN - 08/21/2024 9:48 AM EST Chair 8, patient here for treatment. Patient with no complaints. Chemotherapy/Immunotherapy agents: VELCADE Consent for chemotherapy drug treatment complete, dated, and signed? yes, date - 02/22/22 Treatment lab parameters met? Yes Has treatment weight changed > than 10%? No Treatment preauthorized? Yes VITALS Filed Vitals: 08/21/24 0941 BP: 137/83 Pulse: 68 Resp: 18 Temp: 36.1 C (97 F) TempSrc: Tympanic SpO2: 96% Weight: 79.2 kg (174 lb 9.6 oz) BP Readings from Last 2 Encounters: 08/21/24 137/83 08/07/24 138/99 Pulse Readings from Last 2 Encounters: 08/21/24 68 08/07/24 77 Resp Readings from Last 2 Encounters: 08/21/24 18 07/24/24 18 SpO2 Readings from Last 2 Encounters: 08/21/24 96% 08/07/24 99% Temp Readings from Last 2 Encounters: 08/21/24 36.1 C (97 F) (Tympanic) 08/07/24 36.2 C (97.1 F) (Tympanic) Urine protein: N/A Patient education completed for treatment? Yes Blood transfusion consent signed and complete? NA Return appointment scheduled? Yes Patient had provider visit today? No - If no provider visit must complete Pretreatment Assessment Functional Status: Functional status at today's visit: Fully active, [...] or adverse side effects during treatment. Patient Education: Patient instructed on use of heat and massage functions where applicable. Patient shown how to operate the heat function of the chair and to alert nursing staff if the chair feels too warm. Patient instructed on the risk of potential lombardo while using the heat function. PRE-TREATMENT ASSESSMENT: NEURO: denies symptoms CV/RESP: denies symptoms GI/: denies symptoms OTHER: denies any additional symptoms PAIN: 0 Safety and Risk for Injury Patient will remain free from injury. Ensure appropriate safety devices are available. Provide and maintain safe environment. documented in this encounter Plan of Treatment Upcoming Encounters Date Type Department Care Team (Late st Contact Info) Description 09/03/2024 10:00 AM EST Laboratory Laboratory, [facility] [address] [place] [phone] [facility] [address] [place] [address] 09/03/2024 10:40 AM EST Office Visit [facility] [address] [place] [phone] Octavio Chavira MD [address] [place] [address] 09/04/2024 9:00 AM EST Pharmacy Pharmacy Hematology Oncology [facility] [address] [place] [address] [facility] [place] [facility] Hem/Onc [address] [place] [address] 09/04/2024 10:00 AM EST Hem/Onc Treatment Hematology[facility] Treatment, [place] [address] [facility] [phone] Tresa, Chair 6 Hem Onc Scenery [address] [place] [address] 09/05/2024 1:15 PM EST Imaging Radiology [facility] 1st [facility] [address] [place] [address] 09/11/2024 1:30 PM EST Office Visit Vascular Surgery, [facility] [address] [place] [address] Darrin Lowe MD [address] [place] [address] 09/16/2024 10:00 AM EST Laboratory Laboratory, [facility] [address] [place] [phone] [address] [address] 09/17/2024 12:30 PM EST Office Visit Hematology/Oncology [facility] [place] [address] [place] [phone] Luann De La Cruz MD [address] [place] [address] 09/17/2024 1:00 PM EST Hem/Onc Treatment [facility] [place] [facility] [phone] Tresa, Chair 9 Hem Onc Scenery [address] [place], [place] [address] Scheduled Procedures Name Priority Associated Diagnoses Date/Ti [...] Additional history exists CKD PHOS USE SMARTSET 33901 07/09/202506/25, 02/13/2023, 02/11/2021 Albumin/Creatinine Ratio 07/23/2025 07/23/2024, 08/25 CKD HGB USE SMARTSET 24024 08/20/202508/20, 08/20/2024, 08/06/2024, Additional history exists O2 [...] inj 2.5 mg 2.5 mg (rounded from 2.522 mg = 1.3 mg/m2 1.94 m2 Treatment Plan BSA from Recorded weight), Subcutaneous, ONCE, On Mon08/21/24 at 1115, For 1 dose, Caution chemotherapy: Handle with glovesIndications:Multiple myeloma not having achieved remission (HCC),Encounter for antineoplastic chemotherapy Given 08/21/2024 9:43 AM EST 2.5 mg Abdomen Left Lower documented in this encounter Care Teams Fmd Teacher Relationship Specialty Start Date End Date Savanah Geiger DO [address] [place] [address] PCP - General Family Medicine 04/11/12 documented as of this encounter
--- OUTSIDE RECORDS SUMMARY | 2024-09-04 22:25 | External Medical Summary | Summary of Care ---
Author Name Unknown Organization [facility] Address [address] [place] [address] Phone [phone] Care Team Providers Care Sheet Rock Taper Helper Name Role Phone Savanah Geiger DO Primary Care Provider + [phone] Reason for Visit * Reason Comments Chemotherapy V2 D15 Velcade * Episode Based Medications (Routine) - Authorized Specialty Diagnoses / Procedures Referred By Contnataliia t Referred To Contact Diagnoses Multiple myeloma not having achieved remission (HCC) Encounter for antineoplastic chemotherapy Procedures [place] INJECTION, BORTEZOMIB, 0.1MG Luann De La Cruz MD 200 [facility] [place], [place] [address] Phone: tel: fax: Hematology/Oncology Treatment, [place] DEPT CLOSED - 08/08/23 [address] [facility] [place] [address] Phone: tel: fax: Referral ID Status Reason Start Date Expiration Date V isits Requested Visits Authorized [id number] Authorized 06/18/2024 06/19/[phone] Encounter Details Date Type Department Care Team (Latest Contact Info) Description 08/07/2024 9:30 AM EST Hem/Onc Treatment Hematology/Oncolog y Treatment, [place] [address] [place] [address] Tresa, Chair 6 Hem Onc Scene 200 [facility] [place] [address] Multiple myeloma not having achieved remission (HCC)*; Encounter for antineoplastic chemotherapy Allergies Active Allergy Reactions Criticality Noted Date Comments Calcium Carb-Cholecalciferol 016 documented as of this encounter (statuses as of 09/03/2024) Medications ASPIRIN ADULT LOW DOSE 81 MG [...] Sublingual Tablet Sublingual (Nitrostat)Asha cations:Atheros clerosis of hoh coronary artery of hoh heart without angina pectoris One tablet under [...] morning. 90 Tablet 1 07/10/20 24 Active [facility] Calcium Citrate+D3 Petites 200-6.25 MG-MCG Oral Tablet (Calcium Citrate-Vitamin D)Indications:M ultiple myeloma not having achieved remission (HCC),Hypocalce tashi Take 1 Tablet by mouth in the morning. 90 Tablet 1 08/15/20 22 024 Discontin ued(Refil l) Lenalidomide 10 MG Oral Capsule (Revlimid)Indic ations:Multiple myeloma not having achieved remission (HCC) Take 1 Capsule by mouth in the morning. For 14 days on, 7 days off of a 21 day cycle. Take medication same time every day and consistently with or without food.. 14 Capsule 10/29 024 Discontin ued(Refil l) documented as of this encounter (statuses as of 09/03/2024) Active Problems Problem Noted Date Diagnosed Date [...] cancer 04/24/2020 Coronary artery disease invo lving hoh heart without angina pectoris 05/22/2019 Old myocardial infarct 12/06/2018 S/p bare metal coronary artery stent 01/12/2015 Tobacco use disorder 04/16/2012 HTN, goal below 130/80 2012 GERD (gastroesophageal reflux disease) 2 documented as of this encounter (statuses as of 09/03/2024) Resolved Problems Problem Noted Date Diagnosed Date Resolved Date Coronary artery disease of n ative artery of hoh heart with stable angina pectoris 08/21/2023 08/21/2023 Dehydration 02/01/2021 03/29/2022 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 Atherosclerosis of coronary artery without angina pectoris 09/14/2018 03/29/2022 ST elevation myocardial infarction (STEMI) 03/20/2017 12/06/2018 Lung nodule 10/14/2015 03/29/2022 ST elevation myocardial infa rction (STEMI) involving other coronary artery 05/19/2015 03/20/[address] elevation [place] (STEMI) 01/12/201508/26 Myocardial infarction 02/03/20142017 COPD, moderate 08/27/2013 08/06/2020 Overview: Per COPD GOLD Classification Noncompliance 03/13/2013 03/21/2017 Anemia 05/03/2012 03/29/2022 COPD, severity to be determined 04/16/2012 08/27/2013 Dyslipidemia, goal LDL below 70 04/16/2012 03/29/2022 documented as of this encounter (statuses as of 09/03/2024) Immunizations Name Administration Dates Next Due COVID-19 mRNA, LNP-s, No Pre serve, 2-Dose Series ([employer]) 08/28/2021,02/18/2021,01/28/2021 Pneumococcal Conjugate Vacc, 13 Valent (Prevnar) [...] PM EST documented as of this encounter Nursing Notes * Cheryl Kenny RN - 08/07/2024 10:17 AM EST Chair 6 Patient arrived for injection after visit with Dr. De La Cruz. Patient offers no complaints. Injection given on left lower abdomen without issue. Pt discharged in stable condition. documented in this encounter Plan of Treatment Upcoming Encounters Date Type Department Care Team (Late st Contact Info) Description 09/03/2024 10:00 AM EST Laboratory Laboratory, [place] [facility] [address] [facility] [place] [address] [facility]ji Villegas [address] [facility] [place] [address] 09/03/2024 10:40 AM EST Office [facility] [place] [facility] [place] [address] Octavio Chavira MD [address] [facility] [address] 09/04/2024 9:00 AM EST Pharmacy Pharmacy Hematology Oncology [facility] [address] [place] [address] [facility] [place] [facility] [place] Hem/Onc [address] [place] [address] 09/04/2024 10:00 AM EST Hem/Onc Treatment Hematology/Oncology Treatment, [place] [address] [place] [address] Tresa, Chair 6 Hem Onc Scenery [address] [place] [address] 09/05/2024 1:15 PM EST Imaging Radiology [facility] 1st [facility] [address] [facility] [place] [address] 09/11/2024 1:30 PM EST Office Visit Vascular Surgery, [facility] [address] [facility] [place] [address] Darrin Lowe MD [address] [place] [address] 09/16/2024 10:00 AM EST Laboratory Laboratory, [place] [address] [facility] [place] [address] [place], Laboratory [address] [facility] [place] [address] 09/17/2024 12:30 PM EST Office Visit Hematology/Oncology [facility] [place] [address] [place] [phone] Luann De La Cruz MD [address] [place] [address] 09/17/2024 1:00 PM EST [facility] [address] [place] [phone] Tresa, Chair 9 Hem Onc [facility] [address] [place] [address] Scheduled Procedures Name Priority Associated Diagnoses Date/Ti [...] Additional history exists CKD PHOS USE SMARTSET 70733 07/09/202506/25, 02/13/2023, 02/11/2021 Albumin/Creatinine Ratio 07/23/2025 07/23/2024, 08/25 CKD HGB USE SMARTSET 52604 08/20/202508/20, 08/20/2024, 08/06/2024, Additional history exists O2 [...] BSA from Recorded weight), Subcutaneous, ONCE, On Mon08/07/24 at 1130, For 1 dose, Caution chemotherapy: Handle with glovesIndications:Multiple myeloma not having achieved remission (HCC),Encounter for antineoplastic chemotherapy Given 08/07/2024 9:48 AM EST 2.5 mg Abdomen Left Lower documented in this encounter Care Teams Sheet Rock Taper Helper Relationship Specialty Start Date End Date Savanah Geiger DO [address] [place] [address] PCP - General Family Medicine 04/11/12 documented as of this encounter
--- OUTSIDE RECORDS SUMMARY | 2024-09-04 22:26 | External Medical Summary | Summary of Care ---
Author Name Unknown Organization [facility] Address [address] [place] [address] Phone [phone] Care Team Providers Care Tool And Die Repairer Name Role Phone Savanah Geiger DO Primary Care Provider [phone] Reason for Visit * Reason Comments Chemotherapy C1/D1 - Velcade * Episode Based Medications (Routine) - Authorized Specialty Diagnoses / Procedures Referred By Suki person Referred To Contact Diagnoses Multiple myeloma not having achieved remission (HCC) Encounter for antineoplastic chemotherapy Procedures AK INJECTION, BORTEZOMIB, 0.1MG Luann De La Cruz MD [address] [place] [address] Phone: tel: fax: Hematology/Oncology Treatment, [place] DEPT CLOSED - 08/08/23 [address] [facility] [place] [address] Phone: tel: fax: Referral ID Status Reason Start Date Expiration Date V isits Requested Visits Authorized [id number] Authorized 06/18/2024 06/19/[phone] Encounter Details Date Type Department Care Team (Latest Contact Info) Description 06/26/2024 12:45 PM EDT Hem/Onc Treatment Hematology/Oncolog y Treatment, [place] [address] [place] [address] Multiple myeloma not having achieved remission (HCC)*; Encounter for antineoplastic chemotherapy Allergies Active Allergy Reactions Criticality Noted Date Comments Calcium Carb-Cholecalciferol 016 documented as of this encounter (statuses as of 08/08/2024) Medications ASPIRIN ADULT LOW DOSE 81 MG TBECIndication s:Dyslipidemia , goal LDL below 100 TAKE 1 TABLET BY MOUTH EVERY DAY IN THE MORNING 90 Tab 3 07/04/20 18 Active Clobetasol Propionate 0.05 % External Cream (Temovate)Asha cations:Atopic dermatitis Apply topically to affected area 2 times a day. To affected area for up to two weeks. 60 g 1 10/15/19 22 Active Additional Information Patient taking differently:TopicalPRN, To affected area for up to two weeks., Reported on 12/16/2022 Ondansetron HCl 8 MG Oral Tablet (Zofran)Indica tions:Multiple myeloma (HCC) Take by mouth 1 Tablet every 8 hours as needed for Nausea. 30 Tablet 2 02/25/20 22 Active Prochlorperazi ne Maleate 10 MG Oral Tablet (Compazine)Ind ications:Multi ple myeloma (HCC) Take by mouth 1 Tablet every 6 hours as needed for Nausea. 30 Tablet 2 02/25/20 22 Active [facility] Calcium Citrate+D3 Petites 200-6.25 MG-MCG Oral Tablet (Calcium Citrate-Vitami n D)Indications: Multiple myeloma not having achieved remission (HCC),Hypocalc emia Take 1 Tablet by mouth in the morning. 90 Tablet 1 08/15/20 22 Active Probiotic Acidophilus Oral Capsule Take by mouth daily. Active Nitroglycerin 0.4 MG Sublingual Tablet Sublingual (Nitrostat)Ind ications:Ather osclerosis of kaibab coronary artery of ka[place] heart without angina pectoris One tablet under tongue if needed for chest pain. May repeat 3 times. If chest pain continues, call 911 75 Tablet 3 03/20/20 23 Active traMADol HCl 50 MG Oral Tablet (Ultram)Indica tions:Multiple myeloma, remission status unspecified (HCC) Take 1 Tablet by mouth every 6 hours as needed for Pain, Moderate. 30 Tablet 07/24/20 23 Active Ipratropium-Al buterol 0.5-2.5 (3) MG/3ML Inhalation Solution (Duoneb)Indica tions:BLACK (dyspnea on exertion),Whee zing,Pneumonia due to COVID-19 virus Inhale 3 mL via nebulizer in the morning and 3 mL at noon and 3 mL in the evening and 3 mL before bedtime. 100 mL 1 09/01/20 Active Additional Information Patient not taking.Reported on 06/18/2024 Metoprolol Tartrate 50 MG Oral Tablet (Lopressor)Ind ications:HTN, goal below 140/90,Paroxys mal atrial flutter (HCC) Take 1 Tablet by mouth in the morning and 1 Tablet before bedtime. 180 Tablet 03/27/20 24 Active Acyclovir 400 MG Oral Tablet (Zovirax)Indic ations:Multipl e myeloma not having achieved remission (HCC) Take 1 Tablet by mouth in the morning and 1 Tablet before bedtime. 180 Tablet 3 06/18/20 24 Active dexAMETHasone 4 MG Oral Tablet (Decadron)Asha cations:Multip le myeloma (HCC) Take 20mg (5 tablets) once a week 60 Tablet 3 06/18/20 24 Active Atorvastatin Calcium 80 MG Oral Tablet (Lipitor)Indic ations:Dyslipi demia, goal LDL below 100 Take 1 Tablet by mouth in the morning. 90 Tablet 3 08/19/20 23 2023 Discontinued Pantoprazole Sodium 20 MG Oral Tablet Delayed Release (Protonix) Take 1 Tablet by mouth in the morning. 30 minutes before the first meal of the day. Do not crush, split or chew the tablet. 90 Tablet 3 08/28/20 23 2023 Discontinued(R efill) Mirtazapine 15 MG Oral Tablet (Remeron)Indic ations:Poor appetite TAKE 1 TAB BY MOUTH AT BEDTIME. TO HELP WITH APPETITE, AND MOOD. 90 Tablet 04/29/20 24 2023 Discontinued Lenalidomide 10 MG Oral Capsule (Revlimid)Asha cations:Multip le myeloma not having achieved remission (HCC) Take 1 Capsule by mouth in the morning. For 14 days on, 7 days off of a 21 day cycle. Take medication same time every day and consistently with or without food.. 14 Capsule 06/24/20 24 2023 Discontinued(R efill) documented as of this encounter (statuses as of 08/08/2024) Active Problems Problem Noted Date Diagnosed Date [...] cancer 04/24/2020 Coronary artery disease invo lving kaibab heart without angina pectoris 05/22/2019 Old myocardial infarct 12/06/2018 S/p bare metal coronary artery stent 01/12/2015 Tobacco use disorder 04/16/2012 HTN, goal below 130/80 2012 GERD (gastroesophageal reflux disease) 2 documented as of this encounter (statuses as of 08/08/2024) Resolved Problems Problem Noted Date Diagnosed Date Resolved Date Coronary artery disease of n ative artery of [place] heart with stable angina pectoris 08/21/2023 08/21/2023 Dehydration 02/01/2021 03/29/2022 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 Atherosclerosis of coronary artery without angina pectoris 09/14/2018 03/29/2022 ST elevation myocardial infarction (STEMI) 03/20/2017 12/06/2018 Lung nodule 10/14/2015 03/29/2022 ST elevation myocardial infa rction (STEMI) involving other coronary artery 05/19/2015 03/20/[address] elevation NC (STEMI) 01/12/2015 1209/2017 Myocardial infarction 02/03/20142017 COPD, moderate 08/27/2013 08/06/2020 Overview: Per COPD GOLD Classification Noncompliance 03/13/2013 03/21/2017 Anemia 05/03/2012 03/29/2022 COPD, severity to be determined 04/16/2012 08/27/2013 Dyslipidemia, goal LDL below 70 04/16/2012 03/29/2022 documented as of this encounter (statuses as of 08/08/2024) Immunizations Name Administration Dates Next Due COVID-19 mRNA, LNP-s, No Pre serve, 2-Dose Series (Calpano) 08/28/2021,02/18/2021,01/28/2021 Pneumococcal Conjugate Vacc, 13 Valent (Prevnar) [...] Sign Reading Time Taken Comments Blood Pressure 156/97 06/26/2024 12:23 PM EDT Pulse 67 06/26/2024 12:23 PM EDT Temperature 36.1 C (97 F) 06/26/2024 12:23 PM EDT Respiratory Rate 16 06/26/2024 12:23 PM EDT Oxygen Saturation 95% 06/26/2024 12:23 PM EDT Inhaled Oxygen Concentration - - Weight 78.3 kg (172 lb 9.6 oz) 06/26/2024 12:23 PM EDT Height - - Body Mass Index 26.24 09/27/2023 9:59 AM EST documented in this encounter Nursing Notes * Evonne Lundberg RN - 06/26/2024 2:55 PM EDT Goals: Patient will remain free from injury. Possible barriers to meeting goals: ambulating in different environment, neuropathy Stability of the patient: Moderately stable - low risk of patient condition declining or worsening Summary regarding today's goals: Met: pt remained free of harm today Patient tolerated treatment well without any acute issues or problems. Patient left facility in stable condition and denied any further needs. * Evonne Lundberg RN - 06/26/2024 2:38 PM EDT Chair 2. Patient here today for C1 of Velcade and Revlimid. He is restarting treatment again from about 11 months ago. Patient denies any questions today regarding his treatment and already says he started his Revlimidtoday. [facility] pharmacy will be reaching out to pt today. Patient has no acute issues or complaints today. Labs are WNL for patient's baseline. Chemotherapy/Immunotherapy agents: REVLIMID and VELCADE Consent for chemotherapy drug treatment complete, dated, and signed? yes, date - 02/22/2022 Treatment lab parameters met? Yes Has treatment weight changed > than 10%? No Treatment preauthorized? Yes VITALS Filed Vitals: 06/26/24 1223 BP: 156/97 Pulse: 67 Resp: 16 Temp: 36.1 C (97 F) TempSrc: Tympanic SpO2: 95% Weight: 78.3 kg (172 lb 9.6 oz) Urine protein: N/A Patient education completed for [...] using the heat function. PRE-TREATMENT ASSESSMENT: NEURO: numbness or tingling: baseline neuropathy from previous treatments as well, states it is not very bad right now CV/RESP: denies symptoms GI/: denies symptoms OTHER: denies any additional symptoms PAIN: 0 Safety and Risk for Injury Patient will remain free from injury. Ensure appropriate safety devices are available. Provide and maintain safe environment. documented in this encounter Plan of Treatment Upcoming Encounters Date Type Department Care Team (Late st Contact Info) Description 08/20/2024 10:10 AM EST Laboratory [facility], [facility] [address] [place] [address] [facility] [address] [place] [address] 08/21/2024 9:00 AM EST Pharmacy Pharmacy Hematology Oncology [facility] [address] [place] [address] [facility], [facility] Hem/Onc [address] [place] [address] 08/21/2024 9:30 AM EST Hem/Onc Treatment Hematology/Oncology Treatment, [place] [address] [place] [phone] Tresa, Chair 6 Hem Onc [facility] [address] [place] [address] 09/03/2024 10:00 AM EST Laboratory Laboratory, [facility] [address] [place] [address] [place], Laboratory [address] [place] [address] 09/04/2024 10:00 AM EST Hem/Onc Treatment [facility] [place] [facility] [phone] Tresa, Chair 6 Hem Onc [facility] [address] [place] [address] 09/05/2024 1:15 PM EST Imaging Radiology [facility] 1st [facility] [address] [place] [address] 09/11/2024 1:30 PM EST Office Visit Vascular Surgery, [facility] [address] [facility] [place] [address] Darrin [place] MD [address] [place] [address] 09/16/2024 10:00 AM EST Laboratory Laboratory, [facility] [address] [place] [address] [address] 09/17/2024 12:30 PM EST Office Visit Hematology/Oncology [facility] [place] [address] [place] [phone] Luann De La Cruz MD [address] [place] [address] 09/17/2024 1:00 PM EST Hem/Onc Treatment [facility] [place] [address] [facility] [phone] Tresa, Chair 9 Hem Onc [facility] [address] [place] [address] Scheduled Procedures Name Priority Associated Diagnoses Date/Ti [...] Depression Screening 01/11/2025 01/12/2024, 07/12/2017 (Declined) GFR 02/03/2025 08/06/2024, 06/26, 07/09/2024, Additional history exists CKD PHOS USE SMARTSET 81974 07/09/202506/25, 02/13/2023, 02/11/2021 Albumin/Creatinine Ratio 07/23/2025 07/23/2024, 08/25 CKD HGB USE SMARTSET 24141 08/06/202508/06, 08/06/2024, 07/23/2024, Additional history exists O2 ASSESSMENT COMPLETED IN PAST YEAR FOR COPD 08/07/2025 08/07/2024 Pneumococcal Vaccine: 65+ Years Completed 07/25/2022, 07/09/2020 [...] BSA from Recorded weight), Subcutaneous, ONCE, On Mon06/26/24 at 1415, For 1 dose, Caution chemotherapy: Handle with glovesIndications:Multiple myeloma not having achieved remission (HCC),Encounter for antineoplastic chemotherapy Given 06/26/2024 1:31 PM EDT 2.5 mg Abdomen Left Lower documented in this encounter Care Teams Tool And Die Repairer Relationship Specialty Start Date End Date Savanah Geiger DO [address] [place] [facility] [place] [address] PCP - General Family Medicine 04/11/12 documented as of this encounter
--- OUTSIDE RECORDS SUMMARY | 2024-09-04 22:26 | External Medical Summary ---
Author Name Unknown Address Unknown Organization [id number]:[facility] [place] [facility] [place] [address] [facility] [place] [address] Laboratory Report Ordering Provider Test Date Status MARY ANNE LAGUNA 08/20/2024 10:50:37 Final Mantel Cell Lymphoma - Every week for 1 weeks, ever 2 weeks for cycles 2,3,and 4, then every month thereafter OR
Multiple Myeloma - Every week for 2 cycles, D1 and D15 of cycle 3, then every 4 weeks thereafter OR
Myelodysplastic Syndrome - Every week for 8 weeks, then every month thereafter Observation Date Value Abnormality Reference (Units ) Status SYNC LEUKOCYTES IN BLOOD BY AUTOMATED COUNT 08/20/2024 10:50:37 9.08 4.00-10.80 (K/uL) Final Segs 08/20/2024 10:50:37 74.7 40.0-75.0 (%) Final Lymphs % 08/20/2024 10:50:37 9.0 Below low normal 18.0-42.0 (%) Final Monos 08/20/2024 10:50:37 10.6 1.0-11.0 (%) Final Eosinophils 08/20/2024 10:50:37 4.2 0.0-6.0 (%) Final Basos 08/20/2024 10:50:37 0.7 0.0-2.0 (%) Final Immature Granulocyte, Percent 08/20/2024 10:50:37 0.8 0.0-2.0 (%) Final Absolute Segs 08/20/2024 10:50:37 6.79 1.80-7.70 (K/uL) Final Lymphs, absolute 08/20/2024 10:50:37 0.82 Below low normal 1.00-4.80 (K/ul) Final Monos, Abs 08/20/2024 10:50:37 0.96 0.00-1.10 (K/uL) Final Eos, Abs 08/20/2024 10:50:37 0.38 0.00-0.70 (K/uL) Final Basos, Abs 08/20/2024 10:50:37 0.06 0.00-0.20 (K/uL) Final Immature Granulocytes, Number 08/20/2024 10:50:37 0.07 0.00-0.20 (K/uL) Final Performing Location [facility] [place] [facility] [address]. [facility] [address]
--- OUTSIDE RECORDS SUMMARY | 2024-09-04 22:26 | External Medical Summary | Summary of Care ---
Author Name Unknown Organization [facility] Address [address] [place] [address] Phone [phone] Care Team Providers Care Auto Rebuilder Name Role Phone Savanah Geiger DO Primary Care Provider + [phone] Reason for Visit * Reason Comments Chemotherapy V2 D15 Velcade * Episode Based Medications (Routine) - Authorized Specialty Diagnoses / Procedures Referred By Contnataliia t Referred To Contact Diagnoses Multiple myeloma not having achieved remission (HCC) Encounter for antineoplastic chemotherapy Procedures [place] INJECTION, BORTEZOMIB, 0.1MG Luann De La Cruz MD [address] [facility] [place], [place] [address] Phone: tel: fax: Hematology/Oncology Treatment, [place] DEPT CLOSED - 08/08/23 [address] [facility] [place] [address] Phone: tel: fax: Referral ID Status Reason Start Date Expiration Date V isits Requested Visits Authorized [id number] Authorized 06/18/2024 06/19/[phone] Encounter Details Date Type Department Care Team (Latest Contact Info) Description 08/07/2024 9:30 AM EST Hem/Onc Treatment Hematology/Oncolog y Treatment, [place] [address] [place] [phone] Tresa, Chair 6 Hem Onc [place] [address] [facility] [place] [address] Multiple myeloma not having achieved remission (HCC)*; Encounter for antineoplastic chemotherapy Allergies Active Allergy Reactions Criticality Noted Date Comments Calcium Carb-Cholecalciferol 016 documented as of this encounter (statuses as of 08/07/2024) Medications ASPIRIN ADULT LOW DOSE 81 MG [...] for Nausea. 30 Tablet 2 2 Active [facility] Calcium Citrate+D3 Petites 200-6.25 MG-MCG Oral Tablet (Calcium Citrate-Vitamin D)Indications:M ultiple myeloma not having achieved remission (HCC),Hypocalce tashi Take 1 Tablet by mouth in the morning. 90 Tablet 1 2 Active Probiotic Acidophilus Oral Capsule Take by mouth daily. Active Nitroglycerin 0.4 MG Sublingual Tablet Sublingual (Nitrostat)Asha cations:Atheros clerosis of [place] coronary artery of [place] heart [...] or without food.. 14 Capsule 4 Active documented as of this encounter (statuses as of 08/07/2024) Active Problems Problem Noted Date Diagnosed Date [...] cancer 04/24/2020 Coronary artery disease invo lving [place] heart without angina pectoris 05/22/2019 Old myocardial infarct 12/06/2018 S/p bare metal coronary artery stent 01/12/2015 Tobacco use disorder 04/16/2012 HTN, goal below 130/80 2012 GERD (gastroesophageal reflux disease) 2 documented as of this encounter (statuses as of 08/07/2024) Resolved Problems Problem Noted Date Diagnosed Date Resolved Date Coronary artery disease of n ative artery of [place] heart with stable angina pectoris 08/21/2023 08/21/2023 Dehydration 02/01/2021 03/29/2022 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 Atherosclerosis of coronary artery without angina pectoris 09/14/2018 03/29/2022 ST elevation myocardial infarction (STEMI) 03/20/2017 12/06/2018 Lung nodule 10/14/2015 03/29/2022 ST elevation myocardial infa rction (STEMI) involving other coronary artery 05/19/2015 03/20/[address] elevation ID (STEMI) 01/12/2015 1209/2017 Myocardial infarction 02/03/20142017 COPD, moderate 08/27/2013 08/06/2020 Overview: Per COPD GOLD Classification Noncompliance 03/13/2013 03/21/2017 Anemia 05/03/2012 03/29/2022 COPD, severity to be determined 04/16/2012 08/27/2013 Dyslipidemia, goal LDL below 70 04/16/2012 03/29/2022 documented as of this encounter (statuses as of 08/07/2024) Immunizations Name Administration Dates Next Due COVID-19 [...] No 01/12/2024 Does the household have a [facility] source of income? (Household - for ages [...] of this encounter Nursing Notes * Cheryl Kenny, MISTY - 08/07/2024 10:17 AM EST Chair 6 Patient arrived for injection after visit with Dr. De La Cruz. Patient offers no complaints. Injection given on left lower abdomen without issue. Pt discharged in stable condition. documented in this encounter Plan of Treatment Upcoming Encounters Date Type Department Care Team (Late st Contact Info) Description 08/20/2024 10:10 AM EST Laboratory Laboratory, [address] [place] [address] [facility] [address] [place] [address] 08/21/2024 9:00 AM EST Pharmacy Pharmacy Hematology Oncology [facility] [address] [place] [address] [facility], [facility] Hem/Onc [address] [place] [address] 08/21/2024 9:30 AM EST Hem/Onc Treatment Hematology/Oncology Treatment, [place] [address] [place] [phone] Tresa, Chair 6 Hem Onc Scenery [address] [facility] [place] [address] 09/03/2024 10:00 AM EST Laboratory [facility], [place] [facility] [address] [place] [address] [place], [facility] [address] [place] [address] 09/04/2024 10:00 AM EST Hem/Onc Treatment Hematology/Oncology Treatment, [place] [address] [place] [phone] Tresa, Chair 6 Hem Onc [address] [place] [address] 09/05/2024 1:15 PM EST Imaging Radiology [facility]st [facility] [address] [facility] [place] [address] 09/11/2024 1:30 PM EST Office Visit Vascular Surgery, [facility] [address] [facility] [place] [address] Darrin Lowe MD [address] [place] [address] 09/16/2024 10:00 AM EST Laboratory Laboratory, [facility] [address] [place] [address] [place], Laboratory [address] [facility] [address] 09/17/2024 12:30 PM EST Office Visit Hematology/Oncology [facility] Tresa [place] [address] [place] [phone] Luann De La Cruz MD [address] [place] [address] 09/17/2024 1:00 PM EST Hem/Onc Treatment Hematology/Oncology Treatment, [place] [address] [place] [phone] Tresa, Chair 9 Hem Onc Scenery [address] [facility] [place] [address] Scheduled Procedures Name Priority Associated Diagnoses Date/Ti [...] Additional history exists CKD PHOS USE SMARTSET 84833 07/09/202506/25, 02/13/2023, 02/11/2021 Albumin/Creatinine Ratio 07/23/2025 07/23/2024, 08/25 CKD HGB USE SMARTSET 84467 08/06/202508/06, 08/06/2024, 07/23/2024, Additional history exists O2 [...] Lower documented in this encounter Care Teams Auto Rebuilder Relationship Specialty Start Date End Date Savanah Geiger DO [address] [place] [address] PCP - General Family Medicine 04/11/12 documented as of this encounter
--- OUTSIDE RECORDS SUMMARY | 2024-09-04 22:26 | External Medical Summary | Summary of Care ---
Author Name Unknown Organization [facility] Address [address] [place] [address] Phone [phone] Care Team Providers Care Blind Cleaner Name Role Phone GriffinreedSavanah DO Primary Care Provider Reason for Visit * Reason Comments eRx-Medication Refill Encounter Details Date Type Department Care Team (Late st Contact Info) Description 08/14/2024 Refill Hematology/Oncology [facility] [place] [address] [facility] [place] [phone] Luann De La Cruz MD [address] [facility] [place] [address] Multiple myeloma not having achieved remission (HCC)* Allergies Active Allergy Reactions Criticality Noted Date Comments Calcium Carb-Cholecalciferol 016 documented as of this encounter (statuses as of 08/20/2024) Medications ASPIRIN ADULT LOW DOSE 81 MG [...] Sublingual Tablet Sublingual (Nitrostat)Asha cations:Atheros clerosis of viejas coronary artery of viejas heart [...] without food.. 14 Capsule 08/20/20 24 Active Lenalidomide 10 MG Oral Capsule (Revlimid)Indic ations:Multiple myeloma not having achieved remission (HCC) Take 1 Capsule by mouth in the morning. For 14 days on, 7 days off of a 21 day cycle. Take medication same time every day and consistently with or without food.. 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 08/21/2023 08/21/2023 [...] as of this encounter (statuses as of 08/20/2024) Immunizations Name Administration Dates Next Due COVID-19 [...] PM EST documented as of this encounter Miscellaneous Notes * Telephone Encounter - Jesse Beebe [facility] - 08/20/2024 12:20 PM EST Refill Request EPIC Note Clinical Pharmacy Service [...] (12 months for MPN patients) Yes - 08/07/24 If the labs were completed per prescribing information recommendations or provider recommendations Yes - 08/06/24 If the labs were within normal limits or stable at baseline yes If the dose was correct and/or if the prescription sig reflects the current prescribed dose yes If there were any new drug interactions with the patient's oral chemotherapy no If there were any care gaps/baseline labs that need to be addressed favian Beebe [facility] Ambulatory Clinical Pharmacist | Oral Chemotherapy Clinic [facility] 08/20/2024, 12:21 PM * Telephone Encounter - Jesse Beebe [facility] - 08/20/2024 12:19 PM EST Refused Prescriptions: Disp Refills Lenalidomide 10 MG Oral Capsule (Revlimid) 14 Cap*0 Sig: TAKE 1 CAPSULE BY MOUTH 1 TIME A DAY IN THE MORNING FOR 14 DAYS ON THEN 7 DAYS OFF. TAKE MEDICATION SAME TIME EVERY DAY AND CONSISTENTLY WITH OR WITHOUT FOOD. Refused By: JESSE BEEBE Reason for Refusal: Duplicate Request * Telephone Encounter - Joanna Lezama CPhT - 08/20/2024 9:09 AM EST PHARMACY REMS MEDICATION AUTHORIZATION Brian Salinas [phone] Patient Phone Numbers Communication: Chart review Treatment: Medication: Lenalidomide (Revlimid) Indication/Staging/Diagnosis Code: multiple myeloma Dose: 10mg daily D1-14 every 21 days Administration: +/- food Start Date: 06/26/24 Primary Continuous Improvement Facilitator/Oncologist: Dr. De La Cruz Cycle Dates C1 06/26 - 07/09 C2 07/17 - 07/30 C3 08/07 - 08/20 (anticipated) Patient managed by Hem/Onc MTDM - Yes Patient is due for/had labs on 08/06 (scheduled 08/20) Prescriber survey complete; [employer] auth number [id number]. Upon new prescription being sent to [facility] specialty pharmacy, will follow up on [employer] website within 1-2 business days to confirm medication dispensed Joanna Lezama Scientific Informatics Project Leader III Hematology Oncology Oral Chemotherapy Clinic Medication Therapy Disease Management [facility] 08/20/2024 9:11 AM Time Spent on Encounter: < 5 minutes * Telephone Encounter - Cherri Butler LPN - 08/14/2024 8:33 AM ESTPending Prescriptions: Disp Refills Lenalidomide 10 MG Oral Capsule (Revlimid)* 0 Sig: TAKE 1 CAPSULE BY MOUTH 1 TIME A DAY IN THE MORNING FOR 14 DAYS ON THEN 7 DAYS OFF. TAKE MEDICATION SAME TIME EVERY DAY AND CONSISTENTLY WITH OR WITHOUT FOOD. * Telephone Encounter - Cherri Butler LPN - 08/14/2024 8:32 AM EST Refill request for Lenalidomide documented in this encounter Plan of Treatment Upcoming Encounters Date Type Department Care Team (Late st Contact Info) Description 08/21/2024 9:00 AM EST Pharmacy Pharmacy Hematology Oncology [address] [address] [facility] [place] Hem/Onc [facility] [place] [address] 08/21/2024 9:30 AM EST Hem/Onc Treatment Hematology/Oncology Treatment, [place] [address] [place] [phone] Tresa, Chair 6 Hem Onc [place] [facility] [address] 09/03/2024 10:00 AM EST Laboratory Laboratory, [place] [address] [facility] [place] [phone] [place], [facility] [address] [place] [address] 09/04/2024 10:00 AM EST [facility] 200 [facility], [place] [phone] Tresa, Chair 6 Hem Onc [address] [place] [address] 09/05/2024 1:15 PM EST [facility] [address] [place] [address] 09/11/2024 1:30 PM EST Office Visit Vascular Surgery, [facility] 132 [facility] [address] Darrin Lowe MD [address] [place] [address] 09/16/2024 10:00 AM EST Laboratory Laboratory, [facility] [address] [place] [address] [facility] [address] [place] [address] 09/17/2024 12:30 PM EST Office Visit Hematology/Oncology [facility] [address] [place], [place] [phone] Luann De La Cruz MD [address] [place] [address] 09/17/2024 1:00 PM EST Hem/Onc Treatment Hematology/Oncology Treatment, [place] 200 [facility], [place] [phone] Tresa, Chair 9 Hem Onc [facility] [address] [place] [address] Scheduled Procedures Name Priority Associated Diagnoses Date/Ti [...] Additional history exists CKD PHOS USE SMARTSET 78369 07/09/202506/25, 02/13/2023, 02/11/2021 Albumin/Creatinine Ratio 07/23/2025 07/23/2024, 08/25 CKD HGB USE SMARTSET 30887 08/06/202508/06, 08/06/2024, 07/23/2024, Additional history exists O2 [...] remission documented in this encounter Care Teams Blind Cleaner Relationship Specialty Start Date End Date Savanah Geiger DO [address] [place] [address] PCP - General Family Medicine 04/11/12 documented as of this encounter"
--- OUTSIDE RECORDS SUMMARY | 2024-09-04 22:26 | External Medical Summary | Summary of Care ---
Author Name Unknown Organization [facility] Address [address] [place] [address] Phone [phone] Care Team Providers Care Commercial Ocean Clammer Name Role Phone Savanah Geiger DO Primary Care Provider [phone] Reason for Visit * Reason Comments Chemotherapy C1/D1 - Velcade * Episode Based Medications (Routine) - Authorized Specialty Diagnoses / Procedures Referred By Suki person Referred To Contact Diagnoses Multiple myeloma not having achieved remission (HCC) Encounter for antineoplastic chemotherapy Procedures [place] INJECTION, BORTEZOMIB, 0.1MG Luann De La Cruz MD 200 [facility] [place] [address] Phone: tel: fax: Hematology/Oncology Treatment, [place] DEPT CLOSED - 08/08/23 200 [facility] [place] [address] Phone: tel: fax: Referral ID Status Reason Start Date Expiration Date V isits Requested Visits Authorized [id number] Authorized 06/18/2024 06/19/[phone] Encounter Details Date Type Department Care Team (Latest Contact Info) Description 06/26/2024 12:45 PM EDT Hem/Onc Treatment Hematology/Oncolog y Treatment, [place] [address] [place] [address] Multiple myeloma not having achieved remission [...] Sublingual Tablet Sublingual (Nitrostat)Ind ications:Ather osclerosis of little traverse coronary artery of little [place] heart without angina pectoris One tablet under [...] cancer 04/24/2020 Coronary artery disease invo 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 pectoris 05/22/2019 Old myocardial infarct 12/06/2018 S/p bare metal coronary artery stent 01/12/2015 Tobacco use disorder 04/16/2012 HTN, goal below 130/80 2012 GERD (gastroesophageal reflux disease) 2 documented as of this encounter (statuses as of 08/08/2024) Resolved Problems Problem Noted Date Diagnosed Date Resolved Date 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 08/21/2023 08/21/2023 Dehydration 02/01/2021 03/29/2022 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 Atherosclerosis of coronary artery without angina pectoris 09/14/2018 03/29/2022 ST elevation myocardial infarction (STEMI) 03/20/2017 12/06/2018 Lung nodule 10/14/2015 03/29/2022 ST elevation myocardial infa rction (STEMI) involving other coronary artery 05/19/2015 03/20/[address] elevation [place] (STEMI) 01/12/2015 1209/2017 Myocardial infarction 02/03/20142017 COPD, moderate 08/27/2013 08/06/2020 Overview: Per COPD GOLD Classification Noncompliance 03/13/2013 03/21/2017 Anemia 05/03/2012 03/29/2022 COPD, severity to be determined 04/16/2012 08/27/2013 Dyslipidemia, goal LDL below 70 04/16/2012 03/29/2022 documented as of this encounter (statuses as of 08/08/2024) Immunizations Name Administration Dates Next Due COVID-19 mRNA, LNP-s, No Pre serve, 2-Dose Series ([employer]) 08/28/2021,02/18/2021,01/28/2021 Pneumococcal Conjugate Vacc, 13 Valent (Prevnar) [...] and already says he started his Revlimidtoday. [facility] pharmacy will be reaching out to pt [...] Description 08/20/2024 10:10 AM EST Laboratory Laboratory, [place] [facility] [address] [place] [address] [facility] [address] [place] [address] 08/21/2024 9:00 AM EST Pharmacy Pharmacy Hematology Oncology [facility] [address] [place] [address] [facility], [facility] Hem/Onc [address] [place] [address] 08/21/2024 9:30 AM EST Hem/Onc Treatment Hematology/Oncology Treatment, [place] [address] [place] [phone] Tresa, Chair 6 Hem Onc [place] [address] [place] [address] 09/03/2024 10:00 AM EST Laboratory Laboratory, [place] [facility] [address] [place] [address] [place], Laboratory [address] [place] [address] 09/04/2024 10:00 AM EST Hem/Onc Treatment Hematology/Oncology Treatment, [place] [facility] [phone] Tresa, Chair 6 Hem Onc [facility] 200 [facility] [place] [address] 09/05/2024 1:15 PM EST Imaging Radiology [facility] 1st [facility] 132 [place] [address] 09/11/2024 1:30 PM EST Office Visit Vascular Surgery, [facility] 132 [place] [address] Darrin Lowe MD [address] [place] [address] 09/16/2024 10:00 AM EST Laboratory Laboratory, [facility] [address] [place] [address] [place] [address] 09/17/2024 12:30 PM EST Office Visit Hematology/Oncology [facility] Tresa [place] 200 [facility] [place] [phone] Luann De La Cruz MD [address] [place] [address] 09/17/2024 1:00 PM EST Hem/Onc Treatment Hematology/Oncology Treatment, [place] [address] [facility] [phone] Tresa, Chair 9 Hem Onc [facility] 200 [facility] [place] [address] Scheduled Procedures Name Priority Associated Diagnoses Date/Ti [...] Additional history exists CKD PHOS USE SMARTSET 13137 07/09/202506/25, 02/13/2023, 02/11/2021 Albumin/Creatinine Ratio 07/23/2025 07/23/2024, 08/25 CKD HGB USE SMARTSET 02483 08/06/202508/06, 08/06/2024, 07/23/2024, Additional history exists O2 [...] Lower documented in this encounter Care Teams Commercial Ocean Clammer Relationship Specialty Start Date End Date Savanah Geiger DO [address] [facility] [place] [address] PCP - General Family Medicine 04/11/12 documented as of this encounter
--- OUTSIDE RECORDS SUMMARY | 2024-09-04 22:26 | External Medical Summary | Summary of Care ---
Author Name Unknown Organization [facility] Address [address] [place] [address] Phone [phone] Care Team Providers Care Edging Machine Setter Name Role Phone Savaanh Geiger DO Primary Care Provider [phone] Reason for Visit * Reason Comments Chemotherapy Day 1, cycle 3 velca de * Episode Based Medications (Routine) - Authorized Specialty Diagnoses / Procedures Referred By Contnataliia t Referred To Contact Diagnoses Multiple myeloma not having achieved remission (HCC) Encounter for antineoplastic chemotherapy Procedures [place] INJECTION, BORTEZOMIB, 0.1MG Luann De La Cruz MD [address] [facility] [place] [address] Phone: tel: fax: Hematology/Oncology Treatment, [place] DEPT CLOSED - 08/08/[address] [facility] [place] [address] Phone: tel: fax: Referral ID Status Reason Start Date Expiration Date V isits Requested Visits Authorized [id number] Authorized 06/18/2024 06/19/[phone] Encounter Details Date Type Department Care Team (Latest Contact Info) Description 08/21/2024 9:30 AM EST Hem/Onc Treatment Hematology/Oncolog y Treatment, [place] [address] [place] [address] Tresa, Chair [address] [place] [address] Multiple myeloma not having achieved remission (HCC)*; Encounter for antineoplastic chemotherapy Allergies Active Allergy Reactions Criticality Noted Date Comments Calcium Carb-Cholecalciferol 016 documented as of this encounter (statuses as of 08/21/2024) Medications ASPIRIN ADULT LOW DOSE 81 MG [...] Sublingual Tablet Sublingual (Nitrostat)Asha cations:Atheros clerosis of kasigl[place] coronary artery of kasigl[place] heart without angina pectoris One tablet under [...] as of this encounter (statuses as of 08/21/2024) Active Problems Problem Noted Date Diagnosed Date [...] cancer 04/24/2020 Coronary artery disease invo lving kas[place] heart without angina pectoris 05/22/2019 Old myocardial infarct 12/06/2018 S/p bare metal coronary artery stent 01/12/2015 Tobacco use disorder 04/16/2012 HTN, goal below 130/80 2012 GERD (gastroesophageal reflux disease) 2 documented as of this encounter (statuses as of 08/21/2024) Resolved Problems Problem Noted Date Diagnosed Date Resolved Date Coronary artery disease of n ative artery of kasigl[place] heart with stable angina pectoris 08/21/2023 08/21/2023 Dehydration 02/01/2021 03/29/2022 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 Atherosclerosis of coronary artery without angina pectoris 09/14/2018 03/29/2022 ST elevation myocardial infarction (STEMI) 03/20/2017 12/06/2018 Lung nodule 10/14/2015 03/29/2022 ST elevation myocardial infa rction (STEMI) involving other coronary artery 05/19/2015 03/20/[address] elevation [place] (STEMI) 01/12/201508/26 Myocardial infarction 02/03/20142017 COPD, moderate 08/27/2013 08/06/2020 Overview: Per COPD GOLD Classification Noncompliance 03/13/2013 03/21/2017 Anemia 05/03/2012 03/29/2022 COPD, severity to be determined 04/16/2012 08/27/2013 Dyslipidemia, goal LDL below 70 04/16/2012 03/29/2022 documented as of this encounter (statuses as of 08/21/2024) Immunizations Name Administration Dates Next Due COVID-19 [...] No 01/12/2024 Does the household have a [facility] source of income? (Household - for ages [...] Description 09/03/2024 10:00 AM EST Laboratory Laboratory, [facility] [address] [place] [phone] [facility] [address] [place] [address] 09/04/2024 10:00 AM EST Hem/Onc Treatment Hematology/Oncology Treatment, [place] [address] [place] [phone] [place], Chair 6 Hem Onc [place] [address] [place] [address] 09/05/2024 1:15 PM EST Imaging Radiology [facility] 1st Floor, [place] 132 [place] [address] 09/11/2024 1:30 PM EST Office Visit Vascular Surgery, [facility] 132 [place] [address] Darrin Lowe MD [address] [place] [address] 09/16/2024 10:00 AM EST Laboratory Laboratory, [facility] [address] [facility] [phone] Reji Villegas [address] [facility] [place] [address] 09/17/2024 12:30 PM EST Office Visit Hematology/Oncology [facility] Tresa [place] [address] [place] [address] Luann De La Cruz MD [address] [place] [address] 09/17/2024 1:00 PM EST Hem/Onc Treatment Hematology/Oncology Treatment, [place] [address] [place] [phone] Tresa, Chair [address] [facility] [address] [facility] [place] [address] Scheduled Procedures Name Priority Associated Diagnoses Date/Ti [...] Additional history exists CKD PHOS USE SMARTSET 26113 07/09/202506/25, 02/13/2023, 02/11/2021 Albumin/Creatinine Ratio 07/23/2025 07/23/2024, 08/25 O2 ASSESSMENT COMPLETED IN PAST YEAR FOR COPD 08/07/2025 08/07/2024 CKD HGB USE SMARTSET 77494 08/20/202508/20, 08/20/2024, 08/06/2024, Additional history exists Pneumococcal Vaccine: 65+ Years [...] Lower documented in this encounter Care Teams Edging Machine Setter Relationship Specialty Start Date End Date Savanah Geiger DO [address] [facility] [place] [phone] PCP - General Family Medicine 04/11/12 documented as of this encounter
--- OUTSIDE RECORDS SUMMARY | 2024-09-04 22:26 | External Medical Summary | Summary of Care ---
Author Name Unknown Organization [facility] Address [address] [place] [address] Phone [phone] Care Team Providers Care Radiology Equipment Servicer Name Role Phone Savanah Geiger DO Primary Care Provider Reason for Visit * Reason Onset Date Comments Medication Refill 08/27/2024 Encounter Details Date Type Department Care Team (Late st Contact Info) Description 08/27/2024 Refill Cardiology, [facility] [address] [place] [address] Nirav Geiger DO [address] [place] [address] Dyslipidemia, goal LDL below 100 Allergies Active Allergy Reactions Criticality Noted Date Comments Calcium Carb-Cholecalciferol 016 documented as of this encounter (statuses as of 08/28/2024) Medications ASPIRIN ADULT LOW DOSE 81 MG [...] Sublingual Tablet Sublingual (Nitrostat)Asha cations:Atheros clerosis of menominee coronary artery of menominee heart without angina pectoris One tablet under [...] as of this encounter (statuses as of 08/28/2024) Active Problems Problem Noted Date Diagnosed Date [...] cancer 04/24/2020 Coronary artery disease invo lving menominee heart without angina pectoris 05/22/2019 Old myocardial infarct 12/06/2018 S/p bare metal coronary artery stent 01/12/2015 Tobacco use disorder 04/16/2012 HTN, goal below 130/80 2012 GERD (gastroesophageal reflux disease) 2 documented as of this encounter (statuses as of 08/28/2024) Resolved Problems Problem Noted Date Diagnosed Date Resolved Date Coronary artery disease of n ative artery of menominee heart with stable angina pectoris 08/21/2023 08/21/2023 Dehydration 02/01/2021 03/29/2022 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 Atherosclerosis of coronary artery without angina pectoris 09/14/2018 03/29/2022 ST elevation myocardial infarction (STEMI) 03/20/2017 12/06/2018 Lung nodule 10/14/2015 03/29/2022 ST elevation myocardial infa rction (STEMI) involving other coronary artery 05/19/2015 03/20/[address] elevation [place] (STEMI) 01/12/201508/26 Myocardial infarction 02/03/20142017 COPD, moderate 08/27/2013 08/06/2020 Overview: Per COPD GOLD Classification Noncompliance 03/13/2013 03/21/2017 Anemia 05/03/2012 03/29/2022 COPD, severity to be determined 04/16/2012 08/27/2013 Dyslipidemia, goal LDL below 70 04/16/2012 03/29/2022 documented as of this encounter (statuses as of 08/28/2024) Immunizations Name Administration Dates Next Due COVID-19 mRNA, LNP-s, No Pre serve, 2-Dose Series ([employer]) 08/28/2021,02/18/2021,01/28/2021 Pneumococcal Conjugate Vacc, 13 Valent (Prevnar) [...] encounter Miscellaneous Notes * Telephone Encounter - Gissell Correia [facility] - 08/28/2024 3:41 PM EST Refused Prescriptions: Disp Refills Atorvastatin Calcium 80 MG Oral Tablet (Li*90 Tab*0 Refused By:GISSELL CORREIANReason for Refusal: Duplicate Request * Telephone Encounter - Gissell Correia [facility] - 08/28/2024 3:41 PM EST Duplicate request. Gissell Correia RP, Pharm D Clinical Pharmacist [facility] 08/28/2024, 3:41 PM [phone] documented in this encounter Plan of Treatment Upcoming Encounters Date Type Department Care Team (Late st Contact Info) Description 09/03/2024 10:00 AM EST Laboratory Laboratory, [address] [place] [phone] [place], [facility] [address] [place] [address] 09/04/2024 9:00 AM EST Pharmacy Pharmacy Hematology Oncology [facility] [address] [place] [address] [facility] Hem/Onc [address] [place] [address] 09/04/2024 10:00 AM EST Hem/Onc Treatment Hematology/Oncology Treatment, [place] [address] [place] [phone] Tresa, Chair 6 Hem Onc [facility] 200 [place] [address] 09/05/2024 1:15 PM EST Imaging Radiology [facility] 1st [facility] 132 [place] [address] 09/11/2024 1:30 PM EST Office Visit Vascular Surgery, [facility] [address] [place] [address] Darrin Lowe MD [address] [place] [address] 09/16/2024 10:00 AM EST Laboratory Laboratory, [place] [facility] 226 [place] [phone] [place] [address] [place] [address] 09/17/2024 12:30 PM EST Office Visit Hematology/Oncology [place] [address] [place] [phone] Luann De La Cruz MD [address] [place] [address] 09/17/2024 1:00 PM EST Hem/Onc Treatment Hematology/Oncology Treatment, [place] [address] [place] [address] Tresa, Chair 9 Hem Onc [place] [address] [place] [address] Scheduled Procedures Name Priority Associated Diagnoses Date/Ti [...] Additional history exists CKD PHOS USE SMARTSET 68763 07/09/202506/25, 02/13/2023, 02/11/2021 Albumin/Creatinine Ratio 07/23/2025 07/23/2024, 08/25 CKD HGB USE SMARTSET 36509 08/20/202508/20, 08/20/2024, 08/06/2024, Additional history exists O2 [...] hyperlipidemia documented in this encounter Care Teams Radiology Equipment Servicer Relationship Specialty Start Date End Date Savanah Geiger DO [address] [place] [address] PCP - General Family Medicine 04/11/12 documented as of this encounter
--- OUTSIDE RECORDS SUMMARY | 2024-09-04 22:26 | External Medical Summary | Summary of Care ---
Author Name Unknown Organization [facility] Address [address] [place] [address] Phone [phone] Care Team Providers Care Freelance Court Stenographer Name Role Phone GriffinreedSavanah DO Primary Care Provider Reason for Visit * Reason Onset Date Comments Medication Refill 08/27/2024 Encounter Details Date Type Department Care Team (Late st Contact Info) Description 08/27/2024 Refill Hematology/Oncology [facility] Tresa [place] 200 [facility] [place] [phone] Farooq Nielsen MD 200 [place] [address] Multiple myeloma not having achieved remission (HCC); Hypocalcemia Allergies Active Allergy Reactions Criticality Noted Date Comments Calcium Carb-Cholecalciferol 016 documented as of this encounter (statuses as of 08/29/2024) Medications ASPIRIN ADULT LOW DOSE 81 MG [...] Sublingual Tablet Sublingual (Nitrostat)Asha cations:Atheros clerosis of [place] coronary artery of [place] heart without angina pectoris One tablet under [...] mouth in the morning. 90 Tablet 1 08/29/20 24 Active [facility] Calcium Citrate+D3 Petites 200-6.25 MG-MCG Oral Tablet (Calcium Citrate-Vitamin D)Indications:M ultiple myeloma not having achieved remission (HCC),Hypocalce tashi Take 1 Tablet by mouth in the morning. 90 Tablet 1 08/15/20 22 024 Discontin ued(Refil l) documented as of this encounter (statuses as of 08/29/2024) Active Problems Problem Noted Date Diagnosed Date [...] cancer 04/24/2020 Coronary artery disease invo lving [place] heart without angina pectoris 05/22/2019 Old myocardial infarct 12/06/2018 S/p bare metal coronary artery stent 01/12/2015 Tobacco use disorder 04/16/2012 HTN, goal below 130/80 2012 GERD (gastroesophageal reflux disease) 2 documented as of this encounter (statuses as of 08/29/2024) Resolved Problems Problem Noted Date Diagnosed Date Resolved Date Coronary artery disease of n ative artery of [place] heart with stable angina pectoris 08/21/2023 08/21/2023 [...] as of this encounter (statuses as of 08/29/2024) Immunizations Name Administration Dates Next Due COVID-19 mRNA, LNP-s, No Pre serve, 2-Dose Series ([employer]) 08/28/2021,02/18/2021,01/28/2021 Pneumococcal Conjugate Vacc, 13 Valent (Prevnar) [...] encounter Miscellaneous Notes * Telephone Encounter - Cherri Butler LPN - 08/29/2024 12:11 PM ESTPending Prescriptions: Disp Refills [facility] Calcium Citrate+D3 Petites 200-6.25 MG*90 Tab*1 Sig: Take 1 Tablet by mouth in the morning. * Telephone Encounter - Cherri Butler LPN - 08/29/2024 12:09 PM EST Refill request for Calcium Citrate Vitamin D Petites 200-6.25 mg mcg pended below: Last Refill: 08/16/2024 Last seen:08/07/2024 Next Appt.: 09/17/2024 * Telephone Encounter - Blessing Nixon, [facility] - 08/29/2024 11:21 AM EST Pending Prescriptions: Disp Refills [facility] Calcium Citrate+D3 Petites 200-6.25 MG*90 Tab*1 Sig: Take 1 Tablet by mouth in the morning. * Telephone Encounter - Blessing Nixon [facility] - 08/29/2024 11:17 AM EST [facility] is not delegated to approve refills for medications from this specialty. Please approve if appropriate. Did you pend patient's preferred pharmacy and medication before forwarding?yes Pharmacy: [id number] [address] Pending Prescriptions: Disp Refills [facility] Calcium Citrate+D3 Petites 200-6.25 M*90 Tab*1 Sig: Take 1 Tablet by mouth in the morning. Last Visit: 08/07/2024 (in office), Visit date not found (telemedicine) Next Visit: 09/17/2024 If no future appointments scheduled, and last appointment is greater than a year ago, please schedule patient for a follow-up appointment Last date the medication was ordered: 08/15/22 Is this request for a controlled substance?No Urine Drug Screen:No results found. However, due to the size of the patient record, not all encounters were searched. Please check Results Review for a complete set of results. Patient Phone Numbers Labs: Lab Results Component Value Date/Time CREAT 1.3 (H) 08/20/2024 10:50 AM CREAT 1.3 (H) 09/07/2023 03:09 PM CREAT 0.9 10/01/2020 07:44 AM POTASSIUM 4.1 08/20/2024 10:50 AM POTASSIUM 3.0 (L) 10/01/2020 07:44 AM TSH 2.54 06/25/2024 12:29 PM TSH 2.47 09/14/2018 12:22 PM LDL 72 05/22/2024 08:56 AM LDL 73 09/14/2018 12:22 PM LDL NOT APPLICABLE 09/14/2018 12:22 PM ALT 15 08/20/2024 10:50 AM ALT 15 10/01/2020 07:44 AM documented in this encounter Plan of Treatment Upcoming Encounters Date Type Department Care Team (Late st Contact Info) Description 09/03/2024 10:00 AM EST Laboratory Laboratory, [facility] [address] [place] [phone] [place], Laboratory [address] [place] [address] 09/04/2024 9:00 AM EST Pharmacy Pharmacy Hematology Oncology [facility] [address] [place] [address] [facility] Hem/Onc [address] [place] [address] 09/04/2024 10:00 AM EST Hem/Onc Treatment Hematology/Oncology Treatment, [place] [address] [place] [phone] Tresa, Chair 6 Hem Onc [place] [address] [place] [address] 09/05/2024 1:15 PM EST [facility] [address] [facility] [place] [address] 09/11/2024 1:30 PM EST Office Visit Vascular Surgery, [facility] 132 [facility] [place] [address] Darrin Lowe MD [address] [place] [address] 09/16/2024 10:00 AM EST Laboratory Laboratory, [address] [facility] [place] [phone] [place], [facility] [address] [facility] [place] [address] 09/17/2024 12:30 PM EST Office Visit Hematology/Oncology [facility] [place] [address] [place] [address] Luann De La Cruz MD [address] [place] [address] 09/17/2024 1:00 PM EST Hem/Onc Treatment Hematology/Oncology Treatment, [place] [address] [place] [address] Tresa, Chair 9 Hem Onc [facility] [address] [place] [address] Scheduled Procedures Name Priority Associated Diagnoses Date/Ti [...] Additional history exists CKD PHOS USE SMARTSET 29070 07/09/202506/25, 02/13/2023, 02/11/2021 Albumin/Creatinine Ratio 07/23/2025 07/23/2024, 08/25 CKD HGB USE SMARTSET 39939 08/20/202508/20, 08/20/2024, 08/06/2024, Additional history exists O2 [...] myeloma, without mention of having achieved remission Hypocalcemia documented in this encounter Care Teams Freelance Court Stenographer Relationship Specialty Start Date End Date Savanah Geiger DO [address] [place] [address] PCP - General Family Medicine 04/11/12 documented as of this encounter
--- OUTSIDE RECORDS SUMMARY | 2024-09-04 22:26 | External Medical Summary | Summary of Care ---
Author Name Unknown Organization [facility] Address [address] [place] [address] Phone [phone] Care Team Providers Care Aoc Operations Intelligence Chief Name Role Phone Savanah Gegier DO Primary Care Provider [phone] Reason for Visit * Reason Onset Date Comments FYI 08/14/2024 Medication Update 08/14/2024 Encounter Details Date Type Department Care Team (Late st Contact Info) Description 08/14/2024 Telephone Hematology/Oncology [facility] [place] 200 [facility] [place] [phone] Luann De La Cruz MD 200 [place] [address] FYI; Medication Update Allergies Active Allergy Reactions Criticality Noted Date Comments Calcium Carb-Cholecalciferol 016 documented as of this encounter (statuses as of 08/23/2024) Medications ASPIRIN ADULT LOW DOSE 81 MG [...] Sublingual Tablet Sublingual (Nitrostat)Asha cations:Atheros clerosis of [place] coronary artery of [place] heart without angina pectoris One tablet under [...] as of this encounter (statuses as of 08/23/2024) Active Problems Problem Noted Date Diagnosed Date [...] cancer 04/24/2020 Coronary artery disease invo lving [place] heart without angina pectoris 05/22/2019 Old myocardial infarct 12/06/2018 S/p bare metal coronary artery stent 01/12/2015 Tobacco use disorder 04/16/2012 HTN, goal below 130/80 2012 GERD (gastroesophageal reflux disease) 2 documented as of this encounter (statuses as of 08/23/2024) Resolved Problems Problem Noted Date Diagnosed Date Resolved Date Coronary artery disease of n ative artery of [place] heart with stable angina pectoris 08/21/2023 08/21/2023 Dehydration 02/01/2021 03/29/2022 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 Atherosclerosis of coronary artery without angina pectoris 09/14/2018 03/29/2022 ST elevation myocardial infarction (STEMI) 03/20/2017 12/06/2018 Lung nodule 10/14/2015 03/29/2022 ST elevation myocardial infa rction (STEMI) involving other coronary artery 05/19/2015 03/20/[address] elevation HI (STEMI) 01/12/201508/26 Myocardial infarction 02/03/20142017 COPD, moderate 08/27/2013 08/06/2020 Overview: Per COPD GOLD Classification Noncompliance 03/13/2013 03/21/2017 Anemia 05/03/2012 03/29/2022 COPD, severity to be determined 04/16/2012 08/27/2013 Dyslipidemia, goal LDL below 70 04/16/2012 03/29/2022 documented as of this encounter (statuses as of 08/23/2024) Immunizations Name Administration Dates Next Due COVID-19 [...] Telephone Encounter - Joanna Lezama CPhT - 08/23/2024 3:14 PM EST Confirmed via [facility] @ [facility] Specialty, Lenalidomide scheduled for 08/27 delivery. MTDM to schedule fornext refill on 09/10. Joanna Lezama Sales Support Coordinator III Hematology Oncology Oral Chemotherapy Clinic Medication Therapy Disease Management [facility] 08/23/2024 3:15 PM Time Spent on Encounter: 6 - 10 minutes * Telephone Encounter - Jesse Beebe RP - 08/20/2024 12:20 PM EST Refill Request [...] be addressed no Jesse Beebe [facility] Ambulatory Clinical Pharmacist | Oral Chemotherapy Clinic [facility] 08/20/2024, 12:21 PM * Telephone Encounter - Jesse Beebe RP - 08/20/2024 12:19 PM EST Refused Prescriptions: [...] EST PHARMACY REMS MEDICATION AUTHORIZATION Brian Salinas [phone] Patient Phone Numbers Communication: Chart review Treatment: Medication: Lenalidomide (Revlimid) Indication/Staging/Diagnosis Code: multiple myeloma Dose: 10mg daily D1-14 every 21 days Administration: +/- food Start Date: 06/26/24 Primary Printmaker/Oncologist: Dr. De La Cruz Cycle Dates C1 06/26 - 07/09 C2 07/17 - 07/30 C3 08/07 - 08/20 (anticipated) Patient managed by Hem/Onc MTDM - Yes Patient is due for/had labs on 08/06 (scheduled 08/20) Prescriber survey complete; [employer] auth number [id number]. Upon new prescription being sent to [facility] specialty pharmacy, will follow up on [employer] website within 1-2 business days to confirm medication dispensed Joanna Lezama Sales Support Coordinator III Hematology Oncology Oral Chemotherapy Clinic Medication Therapy Disease Management [facility] 08/20/2024 9:11 AM Time Spent on [...] Description 09/03/2024 10:00 AM EST Laboratory Laboratory, [place] [facility] [address] [facility] [place] [address] [place], [address] [address] 09/04/2024 9:00 AM EST Pharmacy Pharmacy Hematology Oncology [facility] [address] [place] [address] [facility] Hem/Onc [address] [place] [address] 09/04/2024 10:00 AM EST Hem[facility] 200 [place] [phone] Tresa, Chair 6 Hem Onc [address] [place] [address] 09/05/2024 1:15 PM EST Imaging Radiology [facility] 1st [facility] 132 [place] [address] 09/11/2024 1:30 PM EST Office Visit Vascular Surgery, [facility] 132 [place] [address] Darrin Lowe MD [address] [place] [address] 09/16/2024 10:00 AM EST Laboratory Laboratory, [facility] [address] [place] [phone] [place], [address] [address] 09/17/2024 12:30 PM EST Office Visit Hematology/Oncology [facility] Tresa [place] [address] [place] [phone] Luann De La Cruz MD [address] [place] [address] 09/17/2024 1:00 PM EST Hem/Onc Treatment Hematology/Oncology Treatment, [place] [facility] [address] Tresa, Chair 9 Hem Onc [facility] 200 [facility] [address] Scheduled Procedures Name Priority Associated Diagnoses Date/Ti [...] Additional history exists CKD PHOS USE SMARTSET 65331 07/09/202506/25, 02/13/2023, 02/11/2021 Albumin/Creatinine Ratio 07/23/2025 07/23/2024, 08/25 CKD HGB USE SMARTSET 41824 08/20/202508/20, 08/20/2024, 08/06/2024, Additional history exists O2 [...] remission documented in this encounter Care Teams Aoc Operations Intelligence Chief Relationship Specialty Start Date End Date Savanah Geiger DO [address] [place] [address] PCP - General Family Medicine 04/11/12 documented as of this encounter"
--- OUTSIDE RECORDS SUMMARY | 2024-09-04 22:26 | External Medical Summary | Summary of Care ---
Author Name Unknown Organization [facility] Address [address] [place] [address] Phone [phone] Care Team Providers Care Spine Specialist Name Role Phone MarcelinajaskaranSavanah DO Primary Care Provider Reason for Visit * Reason Comments Outpatient Testing Encounter Details Date Type Department Care Team (Late st Contact Info) Description 08/20/2024 10:10 AM EST Laboratory Laboratory, [facility] [address] [place] [phone] [place], Laboratory [address] [place], [place] [phone] Multiple myeloma not having achieved remission (HCC) [...] Sublingual Tablet Sublingual (Nitrostat)Asha cations:Atheros clerosis of [place] coronary artery of [place] heart without angina pectoris One tablet under [...] cancer 04/24/2020 Coronary artery disease invo lving [place] heart without angina pectoris 05/22/2019 Old myocardial infarct 12/06/2018 S/p bare metal coronary artery stent 01/12/2015 Tobacco use disorder 04/16/2012 HTN, goal below 130/80 2012 GERD (gastroesophageal reflux disease) 2 documented as of this encounter (statuses as of 08/20/2024) Resolved Problems Problem Noted Date Diagnosed Date Resolved Date Coronary artery disease of n ative artery of [place] heart with stable angina pectoris 08/21/2023 08/21/2023 [...] mRNA, LNP-s, No Pre serve, 2-Dose Series ([employer]) 08/28/2021,02/18/2021,01/28/2021 Pneumococcal Conjugate Vacc, 13 Valent (Prevnar) [...] AM EST Pharmacy Pharmacy Hematology Oncology [address] [address] [facility] Hem/Onc [facility] [place] [address] 08/21/2024 9:30 AM EST Hem/Onc Treatment Hematology/Oncology [address] [phone] Tresa, Chair 6 Hem Onc [facility] [address] [place] [address] [place] [address] 09/03/2024 10:00 AM EST Laboratory Laboratory, [facility] [address] [place] [phone] [facility] [address] [place] [address] 09/04/2024 10:00 AM EST Hem/Onc Treatment Hematology/Oncology Treatment, [address] [phone] Tresa, Chair 6 Hem Onc [place] 200 [facility] [place] [address] 09/05/2024 1:15 PM EST Imaging Radiology [facility] 1st [facility] 132 [facility] [place] [address] 09/11/2024 1:30 PM EST Office Visit Vascular Surgery, [facility] 132 [facility] [place] [address] Darrin Lowe MD [address] [place] [address] 09/16/2024 10:00 AM EST Laboratory Laboratory, [facility] [address] [place] [phone] [address] 09/17/2024 12:30 PM EST Office Visit Hematology/Oncology [facility] [address] [place] [phone] Luann De La Cruz MD [address] [place] [address] 09/17/2024 1:00 PM EST Hem/Onc Treatment Hematology/Oncology Treatment, [place] [address] [place] [phone] Tresa, Chair 9 Hem Onc [facility] 200 [facility] [place] [address] Pending Results Name Type Priority Associated Diagnoses Date /Time COMPREHENSIVE METABOLIC PANEL Lab STAT Multiple myeloma not having achieved remission (HCC) 08/20/2024 10:50 AM EST CBC WITH WBC DIFFERENTIAL Lab STAT Multiple myeloma not having achieved remission (HCC) 08/20/2024 10:50 AM EST CBC Lab STAT Multiple myeloma not having achieved remission (HCC) 08/20/2024 10:50 AM EST DIFFERENTIAL, AUTOMATED Lab STAT Multiple myeloma not having achieved remission (HCC) 08/20/2024 10:50 AM EST Scheduled Procedures Name Priority Associated [...] Additional history exists CKD PHOS USE SMARTSET 71994 07/09/202506/25, 02/13/2023, 02/11/2021 Albumin/Creatinine Ratio 07/23/2025 07/23/2024, 08/25 CKD HGB USE SMARTSET 67417 08/06/202508/06, 08/06/2024, 07/23/2024, Additional history exists O2 [...] remission documented in this encounter Care Teams Spine Specialist Relationship Specialty Start Date End Date Savanah Geiger DO [address] [place] [address] PCP - General Family Medicine 04/11/12 documented as of this encounter
--- OUTSIDE RECORDS SUMMARY | 2024-09-04 22:26 | External Medical Summary ---
Author Name Unknown Address Unknown Organization K01:LABORATORY [facility] - [address] [facility] [place] [address] Laboratory Report Ordering Provider Test Date Status MARY ANNE LAGUNA 08/20/2024 10:50:37 Final Observation Date Value Abnormality Reference (Units ) Status BUN 08/20/2024 10:50:37 18 6-20 (mg/dL) Final Creatinine 08/20/2024 10:50:37 1.3 Above high normal 0.6-1.2 (mg/dL) Final Glomerular filtration rate/1.73 sq M.predicted [Volume Rate/Area] in Serum, Plasma or Blood by Creatinine-based formula (CKD-EPI) 08/20/2024 10:50:37 59 Below low normal >=60 (mL/min) Final eGFR is calculated based on the CKD-EPI 2020 equation. Sodium 08/20/2024 10:50:37 138 135-146 (m mol/L) Final Potassium 08/20/2024 10:50:37 4.1 3.5-5.1 (m mol/L) Final Cl 08/20/2024 10:50:37 103 98-107 (mm ol/L) Final CO2 08/20/2024 10:50:37 23 22-32 (mmo l/L) Final Anion gap 08/20/2024 10:50:37 12 7-15 (mmol /L) Final Glucose 08/20/2024 10:50:37 96 70-120 (mg /dL) Final Albumin 08/20/2024 10:50:37 3.8 3.8-5.0 (g /dL) Final AST (Aspartate aminotransferase) 08/20/2024 10:50:37 18 10-50 (U/L) Fin al Alk Phos 08/20/2024 10:50:37 110 35-130 (U/ L) Final Bilirubin, Total 08/20/2024 10:50:37 0.4 <=1 .2 (mg/dL) Final Calcium 08/20/2024 10:50:37 8.0 Below low normal 8.4 -10.2 (mg/dL) Final Protein 08/20/2024 10:50:37 6.0 6.0-8.3 (g /dL) Final ALT (Alanine aminotransferase) 08/20/2024 10:50:37 15 10-50 (U/L) Andrzej caal Performing Location LABORATORY [facility] - [address] [facility] [address]
--- OUTSIDE RECORDS SUMMARY | 2024-09-04 22:26 | External Medical Summary ---
Author Name Unknown Address Unknown Organization K01:LABORATORY [facility] - [address] [facility] [address] Laboratory Report Ordering Provider Test Date Status DOMINICK LAGUNAON 08/20/2024 10:50:37 Final Mantel Cell Lymphoma - [...] Abnormality Reference (Units ) Status WBC, Total 08/20/2024 10:50:37 9.08 4.00-10.80 (K/uL) Final RBC 08/20/2024 10:50:37 3.61 4.50-5.25 (M/uL) Final Hemoglobin 08/20/2024 10:50:37 11.2 Below low normal 14.0-16.8 (g/dL) Final HCT 08/20/2024 10:50:37 36.5 Below low normal 40.0-48.4 (%) Final MCV 08/20/2024 10:50:37 101.1 82.0-99.5 (fL) Final MCH 08/20/2024 10:50:37 31.0 27.0-34.0 (pg) Final MCHC 08/20/2024 10:50:37 30.7 32.0-36.0 (g/dL) Final RDW 08/20/2024 10:50:37 15.9 11.5-15.5 (%) Final Platelets 08/20/2024 10:50:37 212 140-400 (K/uL) Final MPV 08/20/2024 10:50:37 11.7 6.6-11.1 (fL) Final Nucleated erythrocytes/100 leukocytes [Ratio] in Blood by Automated count 08/20/2024 10:50:37 0 <=0 (/100 WBCs) Final Performing Location LABORATORY [facility] - [facility] [address] [facility] [address]
--- OUTSIDE RECORDS SUMMARY | 2024-09-04 22:26 | External Medical Summary | Summary of Care ---
Author Name Unknown Organization [facility] Address [address] [place] [address] Phone [phone] Care Team Providers Care Requirements Analyst Name Role Phone Marcelinajaskaran Savanah Oswaldo JIMÉNEZ Primary Care Provider Encounter Details Date Type Department Care Team (Late st Contact Info) Description 08/18/2024 Orders Only Hematology/Oncology, [address] [phone] Luann De La Cruz MD [address] [place], [place] [phone] Allergies Active Allergy Reactions Criticality Noted Date Comments Calcium Carb-Cholecalciferol 016 documented as of this encounter (statuses as of 08/18/2024) Medications ASPIRIN ADULT LOW DOSE 81 MG [...] Sublingual Tablet Sublingual (Nitrostat)Asha cations:Atheros clerosis of [place] coronary artery of table [...] as of this encounter (statuses as of 08/18/2024) Active Problems Problem Noted Date Diagnosed Date [...] cancer 04/24/2020 Coronary artery disease invo lving [place] heart without angina pectoris 05/22/2019 Old myocardial infarct 12/06/2018 S/p bare metal coronary artery stent 01/12/2015 Tobacco use disorder 04/16/2012 HTN, goal below 130/80 2012 GERD (gastroesophageal reflux disease) 2 documented as of this encounter (statuses as of 08/18/2024) Resolved Problems Problem Noted Date Diagnosed Date Resolved Date Coronary artery disease of n ative artery of [place] heart with stable angina pectoris 08/21/2023 08/21/2023 Dehydration 02/01/2021 03/29/2022 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 Atherosclerosis of coronary artery without angina pectoris 09/14/2018 03/29/2022 ST elevation myocardial infarction (STEMI) 03/20/2017 12/06/2018 Lung nodule 10/14/2015 03/29/2022 ST elevation myocardial infa rction (STEMI) involving other coronary artery 05/19/2015 03/20/[address] elevation [place] (STEMI) 01/12/201508/26 Myocardial infarction 02/03/20142017 COPD, moderate 08/27/2013 08/06/2020 Overview: Per COPD GOLD Classification Noncompliance 03/13/2013 03/21/2017 Anemia 05/03/2012 03/29/2022 COPD, severity to be determined 04/16/2012 08/27/2013 Dyslipidemia, goal LDL below 70 04/16/2012 03/29/2022 documented as of this encounter (statuses as of 08/18/2024) Immunizations Name Administration Dates Next Due COVID-19 mRNA, LNP-s, No Pre serve, 2-Dose Series ([employer]) 08/28/2021,02/18/2021,01/28/2021 Pneumococcal Conjugate Vacc, 13 Valent (Prevnar) [...] Description 08/20/2024 10:10 AM EST Laboratory Laboratory, [place] [facility] [address] [facility] [phone] Nelly [facility] [address] [place] [address] 08/21/2024 9:00 AM EST Pharmacy Pharmacy Hematology [facility]cology [facility] [address] [place] [address] [facility] Hem/Onc [address] [place] [address] 08/21/2024 9:30 AM EST Hem/Onc Treatment Hematology/Oncology Treatment, [place] [address] [place] [phone] Tresa, Chair 6 Hem Onc Scenery [address] [facility] [address] 09/03/2024 10:00 AM EST Laboratory Laboratory, [address] [facility] [phone] Reji Villegas [address] [place] [address] 09/04/2024 10:00 AM EST Hem/Onc Treatment Hematology/Oncology Treatment, [place] [address] [place] [phone] Tresa, Chair 6 Hem Onc Scenery 200 [facility] [place] [address] 09/05/2024 1:15 PM EST Imaging Radiology [facility] 1st [facility] [address] [place] [address] 09/11/2024 1:30 PM EST Office Visit Vascular Surgery, [facility] [address] [place] [address] Darrin Lowe MD [address] [place] [address] 09/16/2024 10:00 AM EST Laboratory Laboratory, [facility] [address] [place] [phone] [address] [address] 09/17/2024 12:30 PM EST Office Visit Hematology/Oncology [facility] [place] [address] [place] [phone] Luann De La Cruz MD [address] [place] [address] 09/17/2024 1:00 PM EST Hem/Onc Treatment Hematology/Oncology Treatment, [place] [address] [place] [phone] Tresa, Chair 9 Hem Onc Scenery [address] [place] [address] Scheduled Procedures Name Priority Associated Diagnoses Date/Ti [...] Additional history exists CKD PHOS USE SMARTSET 84487 07/09/202506/25, 02/13/2023, 02/11/2021 Albumin/Creatinine Ratio 07/23/2025 07/23/2024, 08/25 CKD HGB USE SMARTSET 72576 08/06/202508/06, 08/06/2024, 07/23/2024, Additional history exists O2 [...] filedocumented as of this encounter Care Teams Requirements Analyst Relationship Specialty Start Date End Date Savanah Geiger DO [address] [place] [address] PCP - General Family Medicine 04/11/12 documented as of this encounter
--- OUTSIDE RECORDS SUMMARY | 2024-09-04 22:26 | External Medical Summary | Summary of Care ---
Author Name Unknown Organization [facility] Address [address] [place] [address] Phone [phone] Care Team Providers Care Closer On Name Role Phone Caseypiero Savanah Oswaldo JIMÉNEZ Primary Care Provider [phone] Reason for Visit * Reason Comments Medication Management Encounter Details Date Type Department Care Team (Late st Contact Info) Description 08/21/2024 9:00 AM [facility] Pharm[facility] Pharmacy Hematology Oncology [facility] [address] [place] [address] [facility] Hem/Onc [address] [place] [address] Multiple myeloma, remission status unspecified (HCC)* Allergies [...] Sublingual Tablet Sublingual (Nitrostat)Asha cations:Atheros clerosis of [place] coronary artery of kaw heart without angina pectoris One tablet under [...] cancer 04/24/2020 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 05/22/2019 Old myocardial infarct 12/06/2018 S/p bare metal coronary artery stent 01/12/2015 Tobacco use disorder 04/16/2012 HTN, goal below 130/80 2012 GERD (gastroesophageal reflux disease) 2 documented as of this encounter (statuses as of 08/21/2024) Resolved Problems Problem Noted Date Diagnosed Date Resolved Date Coronary artery disease of n ative artery of kaw heart with stable angina pectoris 08/21/2023 08/21/2023 Dehydration 02/01/2021 03/29/2022 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 Atherosclerosis of coronary artery without angina pectoris 09/14/2018 03/29/2022 ST elevation myocardial infarction (STEMI) 03/20/2017 12/06/2018 Lung nodule 10/14/2015 03/29/2022 ST elevation myocardial infa rction (STEMI) involving other coronary artery 05/19/2015 03/20/[address] elevation [place] (STEMI) 01/12/201508/26 Myocardial infarction 02/03/20142017 COPD, moderate 08/27/2013 08/06/2020 Overview: Per COPD GOLD Classification Noncompliance 03/13/2013 03/21/2017 Anemia 05/03/2012 03/29/2022 COPD, severity to be determined 04/16/2012 08/27/2013 Dyslipidemia, goal LDL below 70 04/16/2012 03/29/2022 documented as of this encounter (statuses as of 08/21/2024) Immunizations Name Administration Dates Next Due COVID-19 mRNA, LNP-s, No Pre serve, 2-Dose Series ([employer]) 08/28/2021,02/18/2021,01/28/2021 Pneumococcal Conjugate Vacc, 13 Valent (Prevnar) [...] PM EST documented as of this encounter Progress Notes * Berna Choudhary, [facility] - 08/21/2024 9:00 AM EST MEDICATION THERAPY MANAGEMENT LENALIDOMIDE TREATMENT PROGRESS NOTE Brian Brad [phone] Patient Phone Numbers Communication: Left message requesting return call to assess toleration to therapy Treatment: Medication: Lenalidomide (Revlimid) Indication/Staging/Diagnosis Code: multiple myeloma Dose: 10mg daily D1-14 every 21 days Administration: +/- food Start Date: 06/26/24 Primary Hostler Helper/Oncologist: Dr. De La Cruz Additional Therapy: Bortezomib Dexamethasone Supportive Care Meds: Ondansetron Prochlorperazine Prophylactic Meds: Acyclovir See anticoagulant below Relevant Chronic Medications: Category Medications Pertinent Notes Antihypertensives Metoprolol 50mg BID Per cardiology Anticoagulation ASA 81mg daily Pt hx Cycle Dates C1 06/26 - 07/09 C2 07/17 - 07/30 C3 08/07 - 08/20 C4 08/28 - 09/10 (anticipated) Treatment history: 04/01/22-07/28/22; 12/21/22-08/16/23: DaraVRd Interval History: Per chart review, pt to obtain q2wk labs Per TE 07/05/24 addendum 07/09/24, RX refill dispensed 07/09/24 Changes to medication list since last visit? No Upcoming surgeries or procedures? No Assessment and Plan: Hgb low but improving. Will monitor closely Creatinine elevated but overall stable Ca2+ low but improving (corrected calcium 8.1) Advised pt to increase dietary Ca2+ Will monitor closely All other labs stable Continue current lenalidomide cycle Repeat labs in 2 weeks with OV Assessment of compliance: compliant Assessment of adverse effects attributed to drug therapy: N/A Dose adjustment needed based on lab or adverse drug reaction? No Follow up: 2 weeks MTM with labs Berna Choudhary, CindyD, BCOP Clinical Pharmacist [facility] 08/21/2024, 10:46 AM Monitoring Parameters: Estimated CrCl Serum creatinine: 1.3 mg/dL (H) 08/20/24 1050 Estimated creatinine clearance: 49.7 mL/min (A) Hepatitis panel Latest Reference Range & Units 03/10/22 11:25 Hepatitis B Surface Antigen Negative Negative Hepatitis B Surface Antibody, Quantitative mIU/mL <3.5 HEPATITIS B SURFACE ANTIBODY Rpt Hepatitis B Surface Antibody, Interpretation NOT immune to Hepatitis B Virus Hepatitis B Surface Antibody, Qualitative Negative Hepatitis B Core Antibodies IgG and IgM Negative Negative Suggested lab monitoring Suggested labs (multiple myeloma): CBCd q1wk x 2 cycles, D1 and D15 of cycle 3, then q4wk thereafter; SCr/LFTs/TSH baseline, then q2-3mo; tests 2 negative test 10 to 14 days prior to initiation and w/in 24hr of treatment initiation, q1wk x 1 mo, then q2-4wk through 4 weeks after therapy d/c Is patient a woman of child-bearing potential or having sex with one? No On prophylactic anticoagulation? Yes, ASA IMPEDE score: 4 SAVED score: 1 Date TSH Free T4 Current thyroid meds Next Due Date 07/18/23 2.16 06/25/24 2.54 Treatment Parameters ANC > 1000, PLT > 30K Pertinent labs: Latest Reference Range & Units 07/23/24 10:31 08/06/24 10:57 08/20/24 10:50 WBC 4.00 - 10.80 K/uL 7.82 9.03 9.08 RBC 4.50 - 5.25 M/uL 3.38 3.38 3.61 HGB 14.0 - 16.8 g/dL 10.8 (L) 10.5 (L) 11.2 (L) HCT 40.0 - 48.4 % 34.4 (L) 35.0 (L) 36.5 (L) MCV 82.0 - 99.5 fL 101.8 103.6 101.1 MCH 27.0 - 34.0 pg 32.0 31.1 31.0 MCHC 32.0 - 36.0 g/dL 31.4 30.0 30.7 RDW 11.5 - 15.5 % 15.4 15.8 15.9 PLT 140 - 400 K/uL 272 172 212 MPV 6.6 - 11.1 fL 11.6 11.2 11.7 CBC WITH WBC DIFFERENTIAL Rpt ! Rpt ! Rpt ! Absolute Neutrophils 1.80 - 7.70 K/uL 6.09 6.42 6.79 Absolute Lymphocytes 1.00 - 4.80 K/ul 0.82 (L) 1.05 0.82 (L) (L): Data is abnormally low !: Data is abnormal Rpt: View report in Results Review for more information Latest Reference Range & Units 07/23/24 10:31 08/06/24 10:57 08/20/24 10:50 BUN 6 - 20 mg/dL 17 24 (H) 18 CREATININE 0.6 - 1.2 mg/dL 1.4 (H) 1.3 (H) 1.3 (H) EGFR >=60 mL/min 54 (L) 61 59 (L) (H): Data is abnormally high (L): Data is abnormally low Latest Reference Range & Units 07/23/24 10:31 08/06/24 10:57 08/20/24 10:50 CALCIUM 8.4 - 10.2 mg/dL 7.9 (L) 8.0 (L) 8.0 (L) (L): Data is abnormally low Latest Reference Range & Units 07/23/24 10:31 08/06/24 10:57 08/20/24 10:50 Albumin 3.8 - 5.0 g/dL 3.6 (L) 3.8 3.8 AST 10 - 50 U/L 14 14 18 ALT 10 - 50 U/L 14 16 15 Alkaline Phosphatase 35 - 130 U/L 95 92 110 Bilirubin, Total <=1.2 mg/dL 0.3 0.4 0.4 (L): Data is abnormally low Time Spent on Encounter: 6 - 10 minutes Encounter Group: Hematology Encounter Interventions Item Category: Oral Chemotherapy Lenalidomide Problem/Rationale: Safety: Needs additional monitoring - Medication Requires monitoring Pharmacist Intervention(s): Lab monitoring and Toxicity monitoring Magnitude of Intervention: Monitoring with direction (Level 1) documented in this encounter Plan of Treatment Upcoming Encounters Date Type Department Care Team (Late st Contact Info) Description 09/03/2024 10:00 AM EST Laboratory Laboratory, [address] [facility] [phone] Nelly [facility] [address] [place] [address] 09/04/2024 9:00 AM EST Pharmacy Pharmacy Hematology Oncology [facility] [address] [place] [address] [facility] Hem/Onc [address] [place] [address] 09/04/2024 10:00 AM EST Hem/Onc Treatment Hematology/Oncology Treatment, [place] [address] [place] [address] Tresa, Chair 6 Hem Onc Scenery [address] [place] [address] 09/05/2024 1:15 PM EST Imaging Radiology [facility] 1st [facility] [address] [facility] [place] [address] 09/11/2024 1:30 PM EST Office Visit Vascular Surgery, [facility] [address] [facility] [place] [address] Darrin Loew MD [address] [place] [address] 09/16/2024 10:00 AM EST Laboratory Laboratory, [address] [facility] [phone] Reji Villegas [address] [place] [address] 09/17/2024 12:30 PM EST Office Visit Hematology/Oncology [facility] Tresa [place] [address] [place] [phone] Luann De La Cruz MD [address] [place] [address] 09/17/2024 1:00 PM EST Hem/Onc Treatment Hematology/Oncology Treatment, [place] [address] [place] [phone] Tresa, Chair 9 Hem Onc [facility] [address] [place] [address] Scheduled Procedures Name Priority Associated Diagnoses Date/Ti [...] Additional history exists CKD PHOS USE SMARTSET 03251 07/09/202506/25, 02/13/2023, 02/11/2021 Albumin/Creatinine Ratio 07/23/2025 07/23/2024, 08/25 CKD HGB USE SMARTSET 70140 08/20/202508/20, 08/20/2024, 08/06/2024, Additional history exists O2 [...] Primary documented in this encounter Care Teams Closer On Relationship Specialty Start Date End Date Savanah Geiger DO [address] [place] [address] PCP - General Family Medicine 04/11/12 documented as of this encounter
--- OUTSIDE RECORDS SUMMARY | 2024-09-04 22:27 | External Medical Summary | Summary of Care ---
Author Name Unknown Organization [facility] Address [address] [place] [address] Phone [phone] Care Team Providers Care Polls Or Surveys Interviewer Name Role Phone Caseypiero Savanah Oswaldo JIMÉNEZ Primary Care Provider Reason for Visit * Reason Onset Date Comments Medication Refill 07/23/2024 Encounter Details Date Type Department Care Team (Late st Contact Info) Description 07/23/2024 Telephone Hematology/Oncology [facility] [place] [address] [facility] [place] [phone] Luann De La Cruz MD [address] [facility] [place] [address] Medication Refill Allergies Active Allergy Reactions Criticality Noted Date Comments Calcium Carb-Cholecalciferol 016 documented as of this encounter (statuses as of 07/23/2024) Medications Medication Sig Dispensed Refills Start Date [...] for Nausea. 30 Tablet 2 02/24/2022 Active [facility] Calcium Citrate+D3 Petites 200-6.25 MG-MCG Oral Tablet (Calcium Citrate-Vitamin D)Indications:Mul tiple myeloma not having achieved remission (HCC),Hypocalcemi a Take 1 Tablet by mouth in the morning. 90 Tablet 1 08/15/2022 Active Probiotic Acidophilus Oral Capsule Take by mouth daily. Active Nitroglycerin 0.4 MG Sublingual Tablet Sublingual (Nitrostat)Indica tions:Atheroscler osis of [place] coronary artery of [place] heart without angina pectoris One tablet under tongue if needed for chest pain. May repeat 3 times. If chest pain continues, call 911 75 Tablet 3 03/20/2023 Active traMADol HCl 50 MG Oral Tablet (Ultram)Indicatio ns:Multiple myeloma, remission status unspecified (HCC) Take 1 Tablet by mouth every 6 hours as needed for Pain, Moderate. 30 Tablet 07/24/2023 Active Ipratropium-Albut clay 0.5-2.5 (3) MG/3ML Inhalation Solution (Duoneb)Indicatio ns:BLACK (dyspnea on exertion),Wheezin g,Pneumonia due to COVID-19 virus Inhale 3 mL via nebulizer in the morning and 3 mL at noon and 3 mL in the evening and 3 mL before bedtime. 100 mL 1 09/01/2023 Active Additional Information Patient not taking.Reported on 06/18/2024 Metoprolol Tartrate 50 MG Oral Tablet (Lopressor)Indica tions:HTN, goal below 140/90,Paroxysmal atrial flutter (HCC) Take 1 Tablet by mouth in the morning and 1 Tablet before bedtime. 180 Tablet 03/27/2024 Active Acyclovir 400 MG Oral Tablet (Zovirax)Indicati ons:Multiple myeloma not having achieved remission (HCC) Take 1 Tablet by mouth in the morning and 1 Tablet before bedtime. 180 Tablet 3 06/18/2024 Active dexAMETHasone 4 MG Oral Tablet (Decadron)Indicat ions:Multiple myeloma (HCC) Take 20mg (5 tablets) once a week 60 Tablet 3 06/18/2024 Active Mirtazapine 15 MG Oral Tablet (Remeron)Indicati ons:Poor appetite TAKE 1 TAB BY MOUTH AT BEDTIME. TO HELP WITH APPETITE, AND MOOD. 90 Tablet 3 06/28/2024 Active Atorvastatin Calcium 80 MG Oral Tablet (Lipitor)Indicati ons:Dyslipidemia, goal LDL below 100 TAKE 1 TABLET BY MOUTH EVERY DAY IN THE MORNING 90 Tablet 06/28/2024 Active Pantoprazole Sodium 20 MG Oral Tablet Delayed Release (Protonix) Take 1 Tablet by mouth in the morning. 30 minutes before the first meal of the day. Do not crush, split or chew the tablet. 90 Tablet 1 06/28/2024 Active Cyanocobalamin 1000 MCG Oral Tablet (Cyanocobalamin) Take 1 Tablet by mouth in the morning. 90 Tablet 1 07/10/2024 Active Lenalidomide 10 MG Oral Capsule (Revlimid)Indicat ions:Multiple myeloma not having achieved remission (HCC) Take 1 Capsule by mouth in the morning. For 14 days on, 7 days off of a 21 day cycle. Take medication same time every day and consistently with or without food.. 14 Capsule 07/23/2024 Active Lenalidomide 10 MG Oral Capsule (Revlimid)Indicat ions:Multiple myeloma not having achieved remission (HCC) Take 1 Capsule by mouth in the morning. For 14 days on, 7 days off of a 21 day cycle. Take medication same time every day and consistently with or without food.. 14 Capsule 06/24/2024 Discontinue d(Refill) documented as of this encounter (statuses as of 07/23/2024) Active Problems Problem Noted Date Diagnosed Date [...] cancer 04/24/2020 Coronary artery disease invo lving [place] heart without angina pectoris 05/22/2019 Old myocardial infarct 12/06/2018 S/p bare metal coronary artery stent 01/12/2015 Tobacco use disorder 04/16/2012 HTN, goal below 130/80 2012 GERD (gastroesophageal reflux disease) 2 documented as of this encounter (statuses as of 07/23/2024) Resolved Problems Problem Noted Date Diagnosed Date Resolved Date Coronary artery disease of n ative artery of [place] heart with stable angina pectoris 08/21/2023 08/21/2023 Dehydration 02/01/2021 03/29/2022 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 Atherosclerosis of coronary artery without angina pectoris 09/14/2018 03/29/2022 ST elevation myocardial infarction (STEMI) 03/20/2017 12/06/2018 Lung nodule 10/14/2015 03/29/2022 ST elevation myocardial infa rction (STEMI) involving other coronary artery 05/19/2015 03/20/[address] elevation [place] (STEMI) 01/12/2015 1209/2017 Myocardial infarction 02/03/20142017 COPD, moderate 08/27/2013 08/06/2020 Overview: Per COPD GOLD Classification Noncompliance 03/13/2013 03/21/2017 Anemia 05/03/2012 03/29/2022 COPD, severity to be determined 04/16/2012 08/27/2013 Dyslipidemia, goal LDL below 70 04/16/2012 03/29/2022 documented as of this encounter (statuses as of 07/23/2024) Immunizations Name Administration Dates Next Due COVID-19 mRNA, LNP-s, No Pre serve, 2-Dose Series (Equipois) 08/28/2021,02/18/2021,01/28/2021 Pneumococcal Conjugate Vacc, 13 Valent (Prevnar) [...] have money to get more. Patient declined Sex and Gender Information Value Date Recorded Sex Assigned at Male 07/18/2022 2:25 PM EDT Gender Identity Male 07/18/2022 2:25 PM EDT Sexual Orientation Straight 10/11/2023 7: 03 PM EST Job Start Date Occupation Industry Not on file Not on file Not on file documented as of this encounter Miscellaneous Notes * Telephone Encounter - Gwen Godfrey, [facility] - 07/23/2024 4:04 PM EDT Refill Request EPIC Note Clinical [...] (12 months for MPN patients) Yes - 06/18/24 If the labs were completed per prescribing information recommendations or provider recommendations Yes - 07/23/24 If the labs were within normal limits or stable at baseline yes If the dose was correct and/or if the prescription sig reflects the current prescribed dose yes If there were any new drug interactions with the patient's oral chemotherapy no If there were any care gaps/baseline labs that need to be addressed no Gwen Godfrey [facility] Ambulatory Clinical Pharmacist | Oral Chemotherapy Clinic [facility] 07/23/2024, 4:04 PM * Telephone Encounter - Joanna Lezama CPhT - 07/23/2024 9:27 AM EDT PHARMACY REMS MEDICATION AUTHORIZATION Brian Brad [phone] Patient Phone Numbers Communication: Chart review Treatment: Medication: Lenalidomide (Revlimid) Indication/Staging/Diagnosis Code: multiple myeloma Dose: 10mg daily D1-14 every 21 days Administration: +/- food Start Date: 06/26/24 Primary Preventive Maintenance Coordinator/Oncologist: Dr. De La Cruz Cycle Dates C1 06/26 - 07/09 C2 07/17 - 07/30 C3 08/07 - 08/20 (anticipated) Patient managed by Hem/Onc MTDM -yes Patient is due for/had labs on 07/09 (Scheduled 07/23) Prescriber survey complete; [employer] auth number [id number]. Upon new prescription being sent to [facility] specialty pharmacy, will follow up on [employer] website within 1-2 business days to confirm medication dispensed Joanna Lezama Chief Medical Physicist III Hematology Oncology Oral Chemotherapy Clinic Medication Therapy Disease Management [facility] 07/23/2024 9:36 AM Time Spent on Encounter: < 5 minutes documented in this encounter Plan of Treatment Upcoming Encounters Date Type Department Care Team (Late st Contact Info) Description 07/24/2024 9:00 AM EDT Pharmacy Pharmacy Hematology Oncology [facility] [address] [place] [address] [facility], [facility] Hem/Onc [address] [place] [address] 07/24/2024 11:00 AM EDT Hem/Onc Treatment Hematology/On[facility], [place] [facility] [phone] Tresa, Chair [address] Hem On[address] [place] [address] 08/06/2024 12:00 PM EST Laboratory Laboratory, [address] [phone] [address] 08/07/2024 9:30 AM EST Office Visit Hematology/Oncology [facility] [place] [address] [place] [phone] Luann De La Cruz MD [address] [facility] [place] [address] 08/07/2024 10:00 AM EST Hem/Onc Treatment Hematology/Oncology Treatment, [place] [address] [facility] [place] [phone] Tresa, Chair 8 Hem Onc [facility] [address] [place] [address] 09/05/2024 1:15 PM EST Imaging Radiology [facility] [address]st [facility] [address] [facility] [place] [address] 09/11/2024 1:30 PM EST Office Visit Vascular Surgery, [facility] [address] [place] [address] Darrin Lowe MD [address] [facility] [address] Scheduled Procedures Name Priority Associated Diagnoses Date/Ti me COLONOSCOPY FLEXIBLE PROXIMAL DIAGNOSTIC Recall History of colon polyps Health Maintenance Due Date Last Done Comments Alpha-1 Antitrypsin 02/13/1970 Hepatitis C Screening 02/13/1970 Cologuard 02/13/1997 Fecal Occult Blood Test 02/13/1997 Sigmoidoscopy 02/13/1997 Adult Wellness Visit 02/13/2018 Colonoscopy 05/23/2020 05/23/2017 Colorectal Cancer Screening 05/23/2020 COVID-19 Vaccine ( season) 2024 08/28/2021, 02/18/2021, 01/28/2021 GFR 01/07/2025 07/09/2024, 09/2023, 05/22/2024, Additional history exists Depression Screening 01/11/2025 01/12/2024, 07/12/2017 (Declined) CKD PHOS USE SMARTSET 31891 07/09/202506/25, 02/13/2023, 02/11/2021 O2 ASSESSMENT COMPLETED IN PAST YEAR FOR COPD 07/10/2025 07/10/2024 Albumin/Creatinine Ratio 07/23/2025 07/23/2024, 08/25 CKD HGB USE SMARTSET 39341 07/23/202507/23, 07/23/2024, 07/09/2024, Additional history exists Pneumococcal Vaccine: 65+ Years [...] Multiple myeloma, remission status unspecified (HCC)- Primary Multiple myeloma not having achieved remission (HCC) Multiple myeloma, without mention of having achieved remission documented in this encounter Care Teams Polls Or Surveys Interviewer Relationship Specialty Start Date End Date Savanah Geiger DO [address] [place] [address] PCP - General Family Medicine 04/11/12 documented as of this encounter"
--- OUTSIDE RECORDS SUMMARY | 2024-09-04 22:27 | External Medical Summary | Summary of Care ---
Author Name Unknown Organization [facility] Address [address] [place] [address] Phone [phone] Care Team Providers Care Firer Bisque Kiln Name Role Phone Savanah Geiger DO Primary Care Provider + [phone] Reason for Visit * Reason Comments Chemotherapy Velcade day 1, cycle 2 * Episode Based Medications (Routine) - Authorized Specialty Diagnoses / Procedures Referred By Contnataliia t Referred To Contact Diagnoses Multiple myeloma not having achieved remission (HCC) Encounter for antineoplastic chemotherapy Procedures IL INJECTION, BORTEZOMIB, 0.1MG Luann De La Cruz MD [address] [place] [address] Anc Hem/Onc [facility] DE[facility] CLOSED - 08/08/23 [address] [place] [phone] Referral ID Status Reason Start Date Expiration Date V isits Requested Visits Authorized [id number] Authorized 06/18/2024 06/19/[phone] Encounter Details Date Type Department Care Team (Latest Contact Info) Description 07/24/2024 11:00 AM EDT Hem/Onc Treatment Hematology/Oncolog y Treatment, [place] [address] [place] [phone] Tresa, Chair 9 Hem Onc [address] [place] [id number] Multiple myeloma not having achieved remission (HCC)*; Encounter for antineoplastic chemotherapy Allergies Active Allergy Reactions Criticality Noted Date Comments Calcium Carb-Cholecalciferol 016 documented as of this encounter (statuses as of 07/31/2024) Medications Medication Sig Dispensed Refills Start Date End Date Status ASPIRIN ADULT LOW DOSE 81 MG TBECIndications:Dy slipidemia, goal LDL below 100 TAKE 1 TABLET BY MOUTH EVERY DAY IN THE MORNING 90 Tab 3 07/04/2018 Active Clobetasol Propionate 0.05 % External Cream (Temovate)Indicati ons:Atopic dermatitis Apply topically to affected area 2 times a day. To affected area for up to two weeks. 60 g 1 10/15/2021 Active Additional Information Patient taking differently:TopicalPRN, To affected area for up to two weeks., Reported on 12/16/2022 Ondansetron HCl 8 MG Oral Tablet (Zofran)Indication s:Multiple myeloma (HCC) Take by mouth 1 Tablet every 8 hours as needed for Nausea. 30 Tablet 2 02/24/2022 Active Prochlorperazine Maleate 10 MG Oral Tablet (Compazine)Indicat ions:Multiple myeloma (HCC) Take by mouth 1 Tablet every 6 hours as needed for Nausea. 30 Tablet 2 02/24/2022 Active [facility] Calcium Citrate+D3 Petites 200-6.25 MG-MCG Oral Tablet (Calcium Citrate-Vitamin D)Indications:Mult iple myeloma not having achieved remission (HCC),Hypocalcemia Take 1 Tablet by mouth in the morning. 90 Tablet 1 08/15/2022 Active Probiotic Acidophilus Oral Capsule Take by mouth daily. Active Nitroglycerin 0.4 MG Sublingual Tablet Sublingual (Nitrostat)Indicat ions:Atheroscleros [place] of [place] coronary artery of [place] heart without angina pectoris One tablet under tongue if needed for chest pain. May repeat 3 times. If chest pain continues, call 911 75 Tablet 3 03/20/2023 Active traMADol HCl 50 MG Oral Tablet (Ultram)Indication s:Multiple myeloma, remission status unspecified (HCC) Take 1 Tablet by mouth every 6 hours as needed for Pain, Moderate. 30 Tablet 07/24/2023 Active Ipratropium-Albute rol 0.5-2.5 (3) MG/3ML Inhalation Solution (Duoneb)Indication s:BLCAK (dyspnea on exertion),Wheezing ,Pneumonia due to COVID-19 virus Inhale 3 mL via nebulizer in the morning and 3 mL at noon and 3 mL in the evening and 3 mL before bedtime. 100 mL 1 09/01/2023 Active Additional Information Patient not taking.Reported on 06/18/2024 Metoprolol Tartrate 50 MG Oral Tablet (Lopressor)Indicat ions:HTN, goal below 140/90,Paroxysmal atrial flutter (HCC) Take 1 Tablet by mouth in the morning and 1 Tablet before bedtime. 180 Tablet 03/27/2024 Active Acyclovir 400 MG Oral Tablet (Zovirax)Indicatio ns:Multiple myeloma not having achieved remission (HCC) Take 1 Tablet by mouth in the morning and 1 Tablet before bedtime. 180 Tablet 3 06/18/2024 Active dexAMETHasone 4 MG Oral Tablet (Decadron)Indicati ons:Multiple myeloma (HCC) Take 20mg (5 tablets) once a week 60 Tablet 3 06/18/2024 Active Mirtazapine 15 MG Oral Tablet (Remeron)Indicatio ns:Poor appetite TAKE 1 TAB BY MOUTH AT BEDTIME. TO HELP WITH APPETITE, AND MOOD. 90 Tablet 3 06/28/2024 Active Atorvastatin Calcium 80 MG Oral Tablet (Lipitor)Indicatio ns:Dyslipidemia, goal LDL below 100 TAKE 1 TABLET [...] 07/10/2024 Active Lenalidomide 10 MG Oral Capsule (Revlimid)Indicati ons:Multiple myeloma not having achieved remission (HCC) Take 1 Capsule by mouth in the morning. For 14 days on, 7 days off of a 21 day cycle. Take medication same time every day and consistently with or without food.. 14 Capsule 07/23/2024 Active documented as of this encounter (statuses as of 07/31/2024) Active Problems Problem Noted Date Diagnosed Date [...] cancer 04/24/2020 Coronary artery disease invo lving [place] heart without angina pectoris 05/22/2019 Old myocardial infarct 12/06/2018 S/p bare metal coronary artery stent 01/12/2015 Tobacco use disorder 04/16/2012 HTN, goal below 130/80 2012 GERD (gastroesophageal reflux disease) 2 documented as of this encounter (statuses as of 07/31/2024) Resolved Problems Problem Noted Date Diagnosed Date Resolved Date Coronary artery disease of n ative artery of [place] heart with stable angina pectoris 08/21/2023 08/21/2023 [...] as of this encounter (statuses as of 07/31/2024) Immunizations Name Administration Dates Next Due COVID-19 mRNA, LNP-s, No Pre serve, 2-Dose Series (Workface) 08/28/2021,02/18/2021,01/28/2021 Pneumococcal Conjugate Vacc, 13 Valent (Prevnar) [...] No 01/12/2024 Does the household have a [facility] source of income? (Household - for ages [...] Sign Reading Time Taken Comments Blood Pressure 136/75 07/24/2024 10:51 AM EDT Pulse 68 07/24/2024 10:51 AM EDT Temperature 36.1 C (97 F) 07/24/2024 10:51 AM EDT Respiratory Rate 18 07/24/2024 10:51 AM EDT Oxygen Saturation 97% 07/24/2024 10:51 AM EDT Inhaled Oxygen Concentration - - Weight 77.8 kg (171 lb 9.6 oz) 07/24/2024 10:51 AM EDT Height - - Body Mass Index 26.1 06/26/2024 12:36 PM EDT documented in this encounter Nursing Notes * Chantel Rose RN - 07/24/2024 11:12 AM EDT Injection given. Patient tolerated well. Goals: Patient will remain free from injury. Possible barriers to meeting goals: none Stability of the patient: Moderately stable - low risk of patient condition declining or worsening Summary regarding today's goals: Met: patient remained free from harm/injury during treatment. Patient left facility in stable condition. * Chantel Rose RN - 07/24/2024 10:51 AM EDT Chair 1. Patient here for treatment. Patient with no complaints. Chemotherapy/Immunotherapy agents: VELCADE Consent for chemotherapy drug treatment complete, dated, and signed? yes, date - 02/22/22 Treatment lab parameters met? Yes Has treatment weight changed > than 10%? No Treatment preauthorized? Yes VITALS Filed Vitals: 07/24/24 1051 BP: 136/75 Pulse: 68 Resp: 18 Temp: 36.1 C (97 F) TempSrc: Tympanic SpO2: 97% Weight: 77.8 kg (171 lb 9.6 oz) Urine protein: N/A Patient [...] Care Team (Late st Contact Info) Description 08/06/2024 12:00 PM EST Laboratory Laboratory, [address] [phone] [facility] [address] [place] [address] 08/07/2024 9:30 AM EST Office Visit Hematology/Oncology [facility] [place] [address] [place] [phone] Luann De La Cruz MD [address] [place] [address] 08/07/2024 10:00 AM EST Hem/Onc Treatment Hematology/Oncology Treatment, [place] [address] [place] [phone] Tresa, Chair 8 Hem Onc [address] [place] [address] 08/21/2024 9:00 AM EST Pharmacy Pharmacy Hematology Oncology [facility] [address] [place] [address] [facility], [facility] Hem/Onc [address] [place] [address] 09/05/2024 1:15 PM EST Imaging Radiology [facility] [address]st [facility] [address] [facility] [address] 09/11/2024 1:30 PM EST Office Visit Vascular Surgery, [facility] [address] [place] [address] Darrin Lowe MD [address] [place] [address] Scheduled Procedures Name Priority Associated Diagnoses Date/Ti [...] Depression Screening 01/11/2025 01/12/2024, 07/12/2017 (Declined) GFR 01/21/2025 07/23/2024, 06/25, 06/25/2024, Additional history exists CKD PHOS USE SMARTSET 78661 07/09/202506/25, 02/13/2023, 02/11/2021 Albumin/Creatinine Ratio 07/23/2025 07/23/2024, 08/25 CKD HGB USE SMARTSET 21745 07/23/202507/23, 07/23/2024, 07/09/2024, Additional history exists O2 ASSESSMENT COMPLETED IN PAST YEAR FOR COPD 07/24/2025 07/24/2024 Pneumococcal Vaccine: 65+ Years Completed 07/25/2022, 07/09/2020 [...] BSA from Recorded weight), Subcutaneous, ONCE, On Mon07/24/24 at 1230, For 1 dose, Caution chemotherapy: Handle with gloves Given 07/24/2024 10:57 AM EDT 2.5 mg Abdomen Left Lower documented in this encounter Care Teams Firer Bisque Kiln Relationship Specialty Start Date End Date Savanah Geiger DO [address] [place] [address] PCP - General Family Medicine 04/11/12 documented as of this encounter
--- OUTSIDE RECORDS SUMMARY | 2024-09-04 22:27 | External Medical Summary ---
Author Name Unknown Address Unknown Organization K01:[facility] [place] [facility] [address] [facility] [address] Laboratory Report Ordering Provider Test Date Status MARY ANNE LAGUNA 08/06/2024 10:57:30 Final Observation Date Value Abnormality Reference (Units) Status PARAPROTEIN NORMAL/ABNORMAL 08/06/2024 10:57:30 Abnormal Abnormal Normal Final Protein 08/06/2024 10:57:30 6.2 6.0-8.3 (g/dL) Final Albumin/Protein.total [Pure mass fraction] in Serum or Plasma by Electrophoresis 08/06/2024 10:57:30 2.90 Below low normal 3.30-4.40 (g/dL) Final Alpha 1 globulin/Protein.tota l [Pure mass fraction] in Serum or Plasma by Electrophoresis 08/06/2024 10:57:30 0.29 0.10-0.30 (g/dL) Final Alpha 2 globulin/Protein.tota l [Pure mass fraction] in Serum or Plasma by Electrophoresis 08/06/2024 10:57:30 1.13 Above high normal 0.60-1.00 (g/dL) Final Beta globulin/Protein.tota l [Pure mass fraction] in Serum or Plasma by Electrophoresis 08/06/2024 10:57:30 0.84 0.80-1.30 (g/dL) Final Gamma globulin/Protein.tota l [Pure mass fraction] in Serum or Plasma by Electrophoresis 08/06/2024 10:57:30 1.04 0.70-1.70 (g/dL) Final Monoclonal protein 08/06/2024 10:57:30 0.85 (g/dL) Final Protein Fractions [Interpretation] in Serum or Plasma by Electrophoresis Narrative 08/06/2024 10:57:30 Abnormal. A paraprotein is present that has been previously identified as a monoclonal IgG lambda. Final Performing Location [facility] [place] [address] [facility] [address]
--- OUTSIDE RECORDS SUMMARY | 2024-09-04 22:27 | External Medical Summary | Summary of Care ---
Author Name Unknown Organization [facility] Address [address] [place] [address] Phone [phone] Care Team Providers Care Fitter Helper Name Role Phone Savanah Geiger DO Primary Care Provider + [phone] Reason for Visit * Reason Comments Chemotherapy Velcade * Episode Based Medications (Routine) - Authorized Specialty Diagnoses / Procedures Referred By Suki t Referred To Contact Diagnoses Multiple myeloma not having achieved remission (HCC) Encounter for antineoplastic chemotherapy Procedures [place] INJECTION, BORTEZOMIB, 0.1MG Luann De La Cruz MD 200 [facility] [place] [address] Phone: tel: fax: Hematology/Oncology Treatment, [place] DEPT CLOSED - 08/08/23 [address] [place] [address] Phone: tel: fax: Referral ID Status Reason Start Date Expiration Date V isits Requested Visits Authorized [id number] Authorized 06/18/2024 06/19/[phone] Encounter Details Date Type Department Care Team (Latest Contact Info) Description 07/10/2024 12:45 PM EDT Hem/Onc Treatment Hematology/Oncolog y Treatment, [place] [address] [place] [address] Tresa, Chair 2 Hem Onc Scene [address] [place] [address] Multiple myeloma not having achieved remission (HCC)*; Encounter for antineoplastic chemotherapy Allergies Active Allergy Reactions Criticality Noted Date Comments Calcium Carb-Cholecalciferol 016 documented as of this encounter (statuses as of 08/06/2024) Medications ASPIRIN ADULT LOW DOSE 81 MG [...] Sublingual Tablet Sublingual (Nitrostat)Asha cations:Atheros clerosis of [place] coronary artery of [place] heart without angina pectoris One tablet under [...] tablet. 90 Tablet 1 06/28/20 24 Active Lenalidomide 10 MG Oral Capsule (Revlimid)Indic ations:Multiple myeloma not having achieved remission (HCC) Take 1 Capsule by mouth in the morning. For 14 days on, 7 days off of a 21 day cycle. Take medication same time every day and consistently with or without food.. 14 Capsule 06/24/20 24 024 Discontin ued(Refil l) documented as of this encounter (statuses as of 08/06/2024) Active Problems Problem Noted Date Diagnosed Date [...] cancer 04/24/2020 Coronary artery disease invo lving [place] heart without angina pectoris 05/22/2019 Old myocardial infarct 12/06/2018 S/p bare metal coronary artery stent 01/12/2015 Tobacco use disorder 04/16/2012 HTN, goal below 130/80 2012 GERD (gastroesophageal reflux disease) 2 documented as of this encounter (statuses as of 08/06/2024) Resolved Problems Problem Noted Date Diagnosed Date Resolved Date Coronary artery disease of n ative artery of [place] heart with stable angina pectoris 08/21/2023 08/21/2023 Dehydration 02/01/2021 03/29/2022 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 Atherosclerosis of coronary artery without angina pectoris 09/14/2018 03/29/2022 ST elevation myocardial infarction (STEMI) 03/20/2017 12/06/2018 Lung nodule 10/14/2015 03/29/2022 ST elevation myocardial infa rction (STEMI) involving other coronary artery 05/19/2015 03/20/[address] elevation [place] (STEMI) 01/12/201508/26 Myocardial infarction 02/03/20142017 COPD, moderate 08/27/2013 08/06/2020 Overview: Per COPD GOLD Classification Noncompliance 03/13/2013 03/21/2017 Anemia 05/03/2012 03/29/2022 COPD, severity to be determined 04/16/2012 08/27/2013 Dyslipidemia, goal LDL below 70 04/16/2012 03/29/2022 documented as of this encounter (statuses as of 08/06/2024) Immunizations Name Administration Dates Next Due COVID-19 [...] No 01/12/2024 Does the household have a [facility] source of income? (Household - for [...] Sign Reading Time Taken Comments Blood Pressure 134/76 07/10/2024 1:26 PM EDT Pulse 85 07/10/2024 1:26 PM EDT Temperature 36.9 C (98.4 F) 07/10/2024 1:26 PM ED T Respiratory Rate 16 07/10/2024 1:26 PM EDT Oxygen Saturation 96% 07/10/2024 1:26 PM EDT Inhaled Oxygen Concentration - - Weight 77 kg (169 lb 12.8 oz) 07/10/2024 1:26 PM EDT Height - - Body Mass Index 25.82 06/26/2024 12:36 PM EDT documented in this encounter Progress Notes * Mathew Lind, RN - 07/10/2024 1:29 PM EDT Pt requested LLA for injection. Injection given per patient request and pt tolerated well without any reportable symptoms. Pt ambulated from treatment room in stable condition. Goals: Pt will remain free from injury. Possible barriers to meeting goals: Chemo injection Stability of the patient: Moderately stable - low risk of patient condition declining or worsening Summary regarding today's goals: Met: Pt remained free from injury. documented in this encounter Nursing Notes * Mathew Lind RN - 07/10/2024 1:26 PM EDT Chair 2. Pt denies any issues at this time. Has been tolerating Velcade well. Labs reviewed and ok to proceed with injection. Safety and Risk for Injury Patient will remain free from injury. Ensure appropriate safety devices are available. Provide and maintain safe environment. Chemotherapy/Immunotherapy agents: Velcade Consent for chemotherapy drug treatment complete, dated, and signed? yes, date - 02/22/22 Treatment lab parameters met? Yes Has treatment weight changed > than 10%? No Treatment preauthorized? Yes VITALS Filed Vitals: 07/10/24 1326 BP: 134/76 Pulse: 85 Resp: 16 Temp: 36.9 C (98.4 F) SpO2: 96% Weight: 77 kg (169 lb 12.8 oz) Urine protein: N/A Patient education completed for treatment? Yes Blood transfusion consent signed and complete? NA Return appointment scheduled? Yes Patient had provider visit today? No - If no provider visit must complete Pretreatment Assessment Functional Status: Functional status at today's visit: Ambulatory and capable of all selfcare but unable to carry out any work activities. Up and about more than 50% of waking hours The drug name, dose, infusion volume, rate [...] OTHER: denies any additional symptoms PAIN: 0 documented in this encounter Plan of Treatment Upcoming Encounters Date Type Department Care Team (Late st Contact Info) Description 08/07/2024 9:30 AM EST Office Visit Hematology/Oncology [facility] [address] [place] [address] Luann De La Cruz MD 200 [facility] [place] [address] 08/07/2024 9:30 AM EST Hem/Onc Treatment [address]ematology[address], [address] [phone] Tresa, Chair 6 Hem Onc [facility] [address] [place] [address] [place] [address] 08/21/2024 9:00 AM EST Pharmacy Pharmacy Hematology Oncology [place] [address] [place] [address] [facility] Hem[facility]Onc [facility]note 3] [place] [address] 08/21/2024 9:30 AM EST Hem/Onc Treatment Hematology/[address]cology [address], [address] [phone] Tresa, Chair 6 Hem Onc [facility] [address] [place] [address] [place] [address] 09/04/2024 10:00 AM EST Hem/Onc Treatment Hematology/[address]cology [address], [address] [address] Tresa, Chair 6 Hem Onc [facility] [place] [address] 09/05/2024 1:15 PM EST Imaging Radiology [facility] 1st [facility] [address] [employer] [place] [address] 09/11/2024 1:30 PM EST Office Visit Vascular Surgery, [facility] 132 [facility] [place] [address] Darrin Lowe MD [address] [place] [address] Scheduled Procedures Name Priority Associated Diagnoses Date/Ti [...] Additional history exists CKD PHOS USE SMARTSET 51225 07/09/202506/25, 02/13/2023, 02/11/2021 Albumin/Creatinine Ratio 07/23/2025 07/23/2024, 08/25 CKD HGB USE SMARTSET 40327 07/23/202507/23, 07/23/2024, 07/09/2024, Additional history exists O2 [...] BSA from Recorded weight), Subcutaneous, ONCE, On Mon07/10/24 at 1430, For 1 dose, Caution chemotherapy: Handle with glovesIndications:Multiple myeloma not having achieved remission (HCC),Encounter for antineoplastic chemotherapy Given 07/10/2024 12:53 PM EDT 2.5 mg Abdomen Left Lower documented in this encounter Care Teams Fitter Helper Relationship Specialty Start Date End Date Savanah Geiger DO [address] [place] [address] PCP - General Family Medicine 04/11/12 documented as of this encounter
--- OUTSIDE RECORDS SUMMARY | 2024-09-04 22:27 | External Medical Summary ---
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 [...] SYNC LEUKOCYTES IN BLOOD BY AUTOMATED COUNT 08/06/2024 10:57:30 9.03 4.00-10.80 (K/uL) Final Segs 08/06/2024 10:57:30 71.1 40.0-75.0 (%) Final Lymphs % 08/06/2024 10:57:30 11.6 Below low normal 18.0-42.0 (%) Final Monos 08/06/2024 10:57:30 14.1 Above high normal 1.0-11.0 (%) Final Eosinophils 08/06/2024 10:57:30 2.2 0.0-6.0 (%) Final Basos 08/06/2024 10:57:30 0.4 0.0-2.0 (%) Final Immature Granulocyte, Percent 08/06/2024 10:57:30 0.6 0.0-2.0 (%) Final Absolute Segs 08/06/2024 10:57:30 6.42 1.80-7.70 (K/uL) Final Lymphs, absolute 08/06/2024 10:57:30 1.05 1.00-4.80 (K/ul) Final Monos, Abs 08/06/2024 10:57:30 1.27 Above high normal 0.00-1.10 (K/uL) Final Eos, Abs 08/06/2024 10:57:30 0.20 0.00-0.70 (K/uL) Final Basos, Abs 08/06/2024 10:57:30 0.04 0.00-0.20 (K/uL) Final Immature Granulocytes, Number 08/06/2024 10:57:30 0.05 0.00-0.20 (K/uL) Final Performing Location [facility] [place] [facility] [address] [facility] [address]
--- OUTSIDE RECORDS SUMMARY | 2024-09-04 22:27 | External Medical Summary | Summary of Care ---
Author Name Unknown Organization [facility] Address [address] [place] [address] Phone [phone] Care Team Providers Care Baggage And Mail Agent Name Role Phone CaseySavanah harry Oswaldo JIMÉNEZ Primary Care Provider Reason for Visit * Reason Comments Medication Management Encounter Details Date Type Department Care Team (Late st Contact Info) Description 07/24/2024 9:00 AM EDT Pharmacy Pharmacy Hematology Oncology [facility] [address] [place] [address] [facility] Hem/Onc [address] [place], [place] [id number] Multiple myeloma, remission status unspecified ([facility])* Allergies Active Allergy Reactions Criticality Noted Date Comments Calcium Carb-Cholecalciferol 016 documented as of this encounter (statuses as of 07/24/2024) Medications Medication Sig Dispensed Refills Start Date [...] Sublingual Tablet Sublingual (Nitrostat)Indicat ions:Atheroscleros is of [place] coronary artery of [place] heart without angina pectoris One tablet under [...] rol 0.5-2.5 (3) MG/3ML Inhalation Solution (Duoneb)Indication s:BLACK (dyspnea on exertion),Wheezing ,Pneumonia due to COVID-19 [...] as of this encounter (statuses as of 07/24/2024) Active Problems Problem Noted Date Diagnosed Date [...] cancer 04/24/2020 Coronary artery disease invo lving [place] heart without angina pectoris 05/22/2019 Old myocardial infarct 12/06/2018 S/p bare metal coronary artery stent 01/12/2015 Tobacco use disorder 04/16/2012 HTN, goal below 130/80 2012 GERD (gastroesophageal reflux disease) 2 documented as of this encounter (statuses as of 07/24/2024) Resolved Problems Problem Noted Date Diagnosed Date Resolved Date Coronary artery disease of n ative artery of [place] heart with stable angina pectoris 08/21/2023 08/21/2023 [...] as of this encounter (statuses as of 07/24/2024) Immunizations Name Administration Dates Next Due COVID-19 mRNA, LNP-s, No Pre serve, 2-Dose Series ([facility]) 08/28/2021,02/18/2021,01/28/2021 Pneumococcal Conjugate Vacc, 13 Valent (Prevnar) [...] this encounter Progress Notes * Gwen Godfrey, [facility] - 07/24/2024 9:10 AM EDT MEDICATION THERAPY MANAGEMENT LENALIDOMIDE TREATMENT PROGRESS NOTE Brian Salinas [phone] Patient Phone Numbers Communication: Left message requesting return call to assess toleration to therapy Treatment: Medication: Lenalidomide (Revlimid) Indication/Staging/Diagnosis Code: multiple myeloma Dose: 10mg daily D1-14 every 21 days Administration: +/- food Start Date: 06/26/24 Primary Forestry Biology Specialist/Oncologist: Dr. De La Cruz Additional Therapy: Bortezomib Dexamethasone Supportive Care Meds: Ondansetron Prochlorperazine Prophylactic Meds: Acyclovir See anticoagulant below Relevant Chronic Medications: Category Medications Pertinent Notes Antihypertensives Metoprolol 50mg BID Per cardiology Anticoagulation ASA 81mg daily Pt hx Cycle Dates C1 06/26 - 07/09 C2 07/17 - 07/30 C3 08/07 - 08/20 (anticipated) Treatment history: 04/01/22-07/28/22; 12/21/22-08/16/23: DaraVRd Interval [...] reaction? No Follow up: 2 weeks OV/labs; 4 weeks MTM with labs Gwen Godfrey, PharmD, BCOP Clinical Pharmacist, [facility] Oral Chemotherapy [facility] 07/24/2024, 9:16 AM Monitoring Parameters: Estimated CrCl Serum creatinine: 1.4 mg/dL (H) 07/23/24 1031 Estimated creatinine clearance: 46.1 mL/min (A) Hepatitis panel Latest Reference Range [...] Pertinent labs: Latest Reference Range & Units 06/25/24 12:29 07/09/24 11:20 07/23/24 10:31 WBC 4.00 - 10.80 K/uL 8.38 9.72 7.82 RBC 4.50 - 5.25 M/uL 3.60 3.25 3.38 HGB 14.0 - 16.8 g/dL 11.3 (L) 10.2 (L) 10.8 (L) HCT 40.0 - 48.4 % 35.9 (L) 32.7 (L) 34.4 (L) MCV 82.0 - 99.5 fL 99.7 100.6 101.8 MCH 27.0 - 34.0 pg 31.4 31.4 32.0 MCHC 32.0 - 36.0 g/dL 31.5 31.2 31.4 RDW 11.5 - 15.5 % 15.1 15.5 15.4 PLT 140 - 400 K/uL 179 175 272 MPV 6.6 - 11.1 fL 11.4 12.1 11.6 CBC WITH WBC DIFFERENTIAL Rpt ! Rpt ! Rpt ! Absolute Neutrophils 1.80 - 7.70 K/uL 5.93 7.40 6.09 Latest Reference Range & Units 06/25/24 12:07/09/24 11:20 07/23/24 10:31 BUN 6 - 20 mg/dL 18 18 17 CREATININE 0.6 - 1.2 mg/dL 1.4 (H) 1.3 (H) 1.4 (H) EGFR >=60 mL/min 52 (L) 56 (L) 54 (L) Latest Reference Range & Units 06/25/24 12:07/09/24 11:20 07/23/24 10:31 CALCIUM 8.4 - 10.2 mg/dL 9.0 7.6 (L) 7.9 (L) Latest Reference Range & Units 06/25/24 12:07/09/24 11:20 07/23/24 10:31 Albumin 3.8 - 5.0 g/dL 4.2 3.7 (L) 3.6 (L) AST 10 - 50 U/L 19 15 14 ALT 10 - 50 U/L 19 13 14 Alkaline Phosphatase 35 - 130 U/L 118 89 95 Bilirubin, Total <=1.2 mg/dL 0.4 0.6 0.3 Time Spent on Encounter: 6 - 10 minutes Encounter Group: Hematology Encounter Interventions Item Category: Oral Chemotherapy Lenalidomide Problem/Rationale: Safety: Needs additional monitoring - Medication Requires monitoring Pharmacist Intervention(s): Lab monitoring and Non-pharmacological intervention provided Magnitude of Intervention: Monitoring with direction (Level 1) documented in this encounter Plan of Treatment Upcoming Encounters Date Type Department Care Team (Late st Contact Info) Description 07/24/2024 11:00 AM EDT Hem/Onc Treatment Hematology/Oncology Treatment[address] [place] [phone] Tresa, Chair 9 Hem Onc [address] [place] [address] 08/06/2024 12:00 PM EST Laboratory Laboratory, [place] [address] [place] [address] [facility] [address] [place] [address] 08/07/2024 9:30 AM EST Office Visit Hematology/Oncology [facility] [address] [place] [phone] Luann De La Cruz MD 200 [facility] [place] [address] 08/07/2024 10:00 AM EST Hem/Onc Treatment Hematology/Oncology Treatment [address] [place] [phone] Tresa, Chair 8 Hem Onc [address] [place] [address] 08/21/2024 9:00 AM EST Pharmacy Pharmacy Hematology Oncology [address] [address] [facility] Hem/Onc [address] [place] [address] 09/05/2024 1:15 PM EST Imaging Radiology [facility] [address] [address] 09/11/2024 1:30 PM EST Office Visit Vascular Surgery, [facility] [address] [place] [address] Darrin Lowe MD [address] [place] [address] Scheduled Procedures Name Priority Associated Diagnoses Date/Ti [...] Additional history exists CKD PHOS USE SMARTSET 64843 07/09/202506/25, 02/13/2023, 02/11/2021 O2 ASSESSMENT COMPLETED IN PAST YEAR FOR COPD 07/10/2025 07/10/2024 Albumin/Creatinine Ratio 07/23/2025 07/23/2024, 08/25 CKD HGB USE SMARTSET 45088 07/23/202507/23, 07/23/2024, 07/09/2024, Additional history exists Pneumococcal [...] Primary documented in this encounter Care Teams Baggage And Mail Agent Relationship Specialty Start Date End Date Savanah Geiger DO [address] [place] [address] PCP - General Family Medicine 04/11/12 documented as of this encounter
--- OUTSIDE RECORDS SUMMARY | 2024-09-04 22:27 | External Medical Summary ---
Author Name Unknown Address Unknown Organization K01:LAB[facility]ATORY [facility] - [facility] [address] [facility] [address] [facility] [address] Laboratory Report Ordering Provider Test Date Status MARY ANNE LAGUNA 08/06/2024 10:57:30 Final Observation Date Value Abnormality Reference (Units ) Status [place] light chains, Free, Serum 08/06/2024 10:57:30 18.61 3.30-19.40 (mg/L) Final Lambda light chains, free, Serum 08/06/2024 10:57:30 73.09 Above high normal 5.71-26.30 (mg/L) Final KAPPA LAMBDA F[facility] RATIO 08/06/2024 10:57:30 0.25 Below low normal 0.26-1.65 Final Performing Location LAB[facility] - [facility] [address] [place] [address]
--- OUTSIDE RECORDS SUMMARY | 2024-09-04 22:27 | External Medical Summary ---
Author Name Unknown Address Unknown Organization K01:LABORATORY [facility] [place] - [address] [place] [address] Laboratory Report Ordering Provider Test Date Status MARY ANNE LAGUNA 08/06/2024 10:57:30 Final Observation Date Value Abnormality Reference (Units ) Status IgG 08/06/2024 10:57:30 6552 959-3162 ( mg/dL) Final IgA 08/06/2024 10:57:30 89 70-400 (mg /dL) Final IgM 08/06/2024 10:57:30 12 Below low normal 40- 230 (mg/dL) Final Performing Location LABORATORY C - [address] [place] [address]
--- OUTSIDE RECORDS SUMMARY | 2024-09-04 22:27 | External Medical Summary | Summary of Care ---
Author Name Unknown Organization [facility] Address [address] [place] [address] Phone [phone] Care Team Providers Care Hat And Cap Opener Name Role Phone Savanah Geiger DO Primary Care Provider + [phone] Reason for Visit * Reason Comments Chemotherapy Velcade day 1, cycle 2 * Episode Based Medications (Routine) - Authorized Specialty Diagnoses / Procedures Referred By Contnataliia t Referred To Contact Diagnoses Multiple myeloma not having achieved remission (HCC) Encounter for antineoplastic chemotherapy Procedures [place] INJECTION, BORTEZOMIB, 0.1MG Luann De La Cruz MD [address] [place] [address] Anc Hem/Onc [facility] DEPT CLOSED - 08/08/23 [address] [place] [address] Referral ID Status Reason Start Date Expiration Date V isits Requested Visits Authorized [id number] Authorized 06/18/2024 06/19/[phone] Encounter Details Date Type Department Care Team (Latest Contact Info) Description 07/24/2024 11:00 AM EDT Hem/Onc Treatment Hematology/Oncolog y Treatment, [place] [address] [place] [phone] Tresa, Chair 9 Hem Onc [address] [place] [address] Multiple myeloma not having achieved remission (HCC)*; [...] Sublingual Tablet Sublingual (Nitrostat)Indicat ions:Atheroscleros is of [place] coronary artery of [place] heart without angina pectoris One tablet under [...] cancer 04/24/2020 Coronary artery disease invo lving [place] heart without angina pectoris 05/22/2019 Old myocardial infarct 12/06/2018 S/p bare metal coronary artery stent 01/12/2015 Tobacco use disorder 04/16/2012 HTN, goal below 130/80 2012 GERD (gastroesophageal reflux disease) 2 documented as of this encounter (statuses as of 07/31/2024) Resolved Problems Problem Noted Date Diagnosed Date Resolved Date Coronary artery disease of n ative artery of [place] heart with stable angina pectoris 08/21/2023 08/21/2023 Dehydration 02/01/2021 03/29/2022 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 Atherosclerosis of coronary artery without angina pectoris 09/14/2018 03/29/2022 ST elevation myocardial infarction (STEMI) 03/20/2017 12/06/2018 Lung nodule 10/14/2015 03/29/2022 ST elevation myocardial infa rction (STEMI) involving other coronary artery 05/19/2015 03/20/[address] elevation [place] (STEMI) 01/12/201508/26 Myocardial infarction 02/03/20142017 COPD, moderate 08/27/2013 08/06/2020 Overview: Per COPD GOLD Classification Noncompliance 03/13/2013 03/21/2017 Anemia 05/03/2012 03/29/2022 COPD, severity to be determined 04/16/2012 08/27/2013 Dyslipidemia, goal LDL below 70 04/16/2012 03/29/2022 documented as of this encounter (statuses as of 07/31/2024) Immunizations Name Administration Dates Next Due COVID-19 mRNA, LNP-s, No Pre serve, 2-Dose Series ([employer]) 08/28/2021,02/18/2021,01/28/2021 Pneumococcal Conjugate Vacc, 13 Valent (Prevnar) [...] No 01/12/2024 Does the household have a [facility] source of income? (Household - for ages [...] Description 08/06/2024 12:00 PM EST Laboratory Laboratory, [address] [phone] [facility] [address] [place] [address] 08/07/2024 9:30 AM EST Office Visit Hematology/Oncology [facility] Tresa [place] [address] [place] [phone] Luann De La Cruz MD [address] [place] [address] 08/07/2024 10:00 AM EST Hem/Onc Treatment Hematology/Oncology Treatment, [place] [address] [place] [phone] Tresa, Chair 8 Hem Onc [address] [place] [address] 08/21/2024 9:00 AM EST Pharmacy Pharmacy Hematology Oncology [facility] [address] [place] [address] [facility] [place] Hem/Onc [address] [place] [address] 09/05/2024 1:15 PM EST Imaging Radiology [facility] 1st [facility] [address] [facility] [address] 09/11/2024 1:30 PM EST Office Visit Vascular Surgery, [facility] 132 [place] [address] Darrin Lowe MD [address] [place] [address] Scheduled Procedures Name Priority Associated Diagnoses Date/Ti [...] Additional history exists CKD PHOS USE SMARTSET 61822 07/09/202506/25, 02/13/2023, 02/11/2021 Albumin/Creatinine Ratio 07/23/2025 07/23/2024, 08/25 CKD HGB USE SMARTSET 60616 07/23/202507/23, 07/23/2024, 07/09/2024, Additional history exists O2 [...] Lower documented in this encounter Care Teams Hat And Cap Opener Relationship Specialty Start Date End Date Savanah Geiger DO [address] [place] [address] PCP - General Family Medicine 04/11/12 documented as of this encounter
--- OUTSIDE RECORDS SUMMARY | 2024-09-04 22:27 | External Medical Summary | Summary of Care ---
Author Name Unknown Organization [facility] Address [address] [place] [address] Phone [phone] Care Team Providers Care Spray Rig Operator Name Role Phone Griffinreed Savanah Oswaldo JIMÉNEZ Primary Care Provider [phone] Reason for Visit * Reason Comments Follow Up Medication Administration Encounter Details Date Type Department Care Team (Late st Contact Info) Description 08/07/2024 9:30 AM EST Office Visit Hematology/Oncology [facility] [place] [address] [facility] [place] [phone] Luann De La Cruz MD [address] [place] [address] Multiple myeloma, remission status unspecified (HCC)* Allergies [...] Sublingual Tablet Sublingual (Nitrostat)Asha cations:Atheros clerosis of [place] coronary artery of [place] heart without angina pectoris One tablet under [...] cancer 04/24/2020 Coronary artery disease invo lving [place] heart without angina pectoris 05/22/2019 Old myocardial infarct 12/06/2018 S/p bare metal coronary artery stent 01/12/2015 Tobacco use disorder 04/16/2012 HTN, goal below 130/80 2012 GERD (gastroesophageal reflux disease) 2 documented as of this encounter (statuses as of 08/07/2024) Resolved Problems Problem Noted Date Diagnosed Date Resolved Date Coronary artery disease of n ative artery of [place] heart with stable angina pectoris 08/21/2023 08/21/2023 Dehydration 02/01/2021 03/29/2022 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 Atherosclerosis of coronary artery without angina pectoris 09/14/2018 03/29/2022 ST elevation myocardial infarction (STEMI) 03/20/2017 12/06/2018 Lung nodule 10/14/2015 03/29/2022 ST elevation myocardial infa rction (STEMI) involving other coronary artery 05/19/2015 03/20/[address] elevation CA (STEMI) 01/12/201508/26 Myocardial infarction 02/03/20142017 COPD, moderate 08/27/2013 08/06/2020 Overview: Per COPD GOLD Classification Noncompliance 03/13/2013 03/21/2017 Anemia 05/03/2012 03/29/2022 COPD, severity to be determined 04/16/2012 08/27/2013 Dyslipidemia, goal LDL below 70 04/16/2012 03/29/2022 documented as of this encounter (statuses as of 08/07/2024) Immunizations Name Administration Dates Next Due COVID-19 mRNA, LNP-s, No Pre serve, 2-Dose Series ([employer]) 08/28/2021,02/18/2021,01/28/2021 Pneumococcal Conjugate Vacc, 13 Valent [...] Sign Reading Time Taken Comments Blood Pressure 138/99 08/07/2024 9:21 AM EST Pulse 77 08/07/2024 9:21 AM EST Temperature 36.2 C (97.1 F) 08/07/2024 9:21 AM ES T Respiratory Rate - - Oxygen Saturation 99% 08/07/2024 9:21 AM EST Inhaled Oxygen Concentration - - Weight 78.2 kg (172 lb 4.8 oz) 08/07/2024 9:21 A M EST Height - - Body Mass Index 26.2 06/26/2024 12:36 PM EDT documented in this encounter Progress Notes * Luann De La Cruz MD - 08/07/2024 9:18 AM EST Outpatient Consult Note Data Source: Patient, [facility] record. Data Source: Patient, [facility] record. 08/07/2024 9:18 AM Brian [place] [id number] 74 year old Patient Encounter: HEMATOLOGY/ONCOLOGY [facility] Cancer Diagnosis: - Recurrent multiple myeloma, IgG lambda R-ISS Staging: III - bladder tumor. 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 12/06/2022 Resume the combination of VRD because of the rising level of lambda light chain. He received last treatment on 08/16/2023 and then refused to continue treatment. Previous Treatment: - VRd treatment for myeloma. He was treated [id number]/14/2020 and received last dose of Velcade on [...] treated with BCG instillation Oncologic History : 74-year-old male with history of multiple medical problem [...] diagnosis. The block is being sent o [facility] for ancillary studies and the testing [...] are not seen. Patient is following Dr. Woodruff for bladder cancer. He continued receiving 3 weeks BCG every 6 months. Last cystoscopy was done on 03/21/2023 and it was negative. Interval History: He is doing well without any significant side effects toxicity from treatment. Denies any new bone pain. Denies headache, dizziness, chest pain, palpitation abdominal pain distention, nausea, vomiting, fever, night sweats, skin rash. LABS/IMAGING: Results for orders placed or performed in visit on 08/06/24 IMMUNOGLOBULIN QUANTITATIVE Result Value Ref Range IgG 1,105 700 - 1,600 mg/dL IgA 89 70 - 400 mg/dL IgM 12 (L) 40 - 230 mg/dL COMPREHENSIVE METABOLIC PANEL Result Value Ref Range BUN 24 (H) 6 - 20 mg/dL CREATININE 1.3 (H) 0.6 - 1.2 mg/dL EGFR 61 >=60 mL/min SODIUM 136 135 - 146 mmol/L POTASSIUM 3.9 3.5 - 5.1 mmol/L CHLORIDE 103 98 - 107 mmol/L CO2 19 (L) 22 - 32 mmol/L ANION GAP 14 7 - 15 mmol/L GLUCOSE 106 70 - 120 mg/dL Albumin 3.8 3.8 - 5.0 g/dL AST 14 10 - 50 U/L Alkaline Phosphatase 92 35 - 130 U/L Bilirubin, Total 0.4 <=1.2 mg/dL CALCIUM 8.0 (L) 8.4 - 10.2 mg/dL Protein 6.2 6.0 - 8.3 g/dL ALT 16 10 - 50 U/L CBC Result Value Ref Range WBC 9.03 4.00 - 10.80 K/uL RBC 3.38 4.50 - 5.25 M/uL HGB 10.5 (L) 14.0 - 16.8 g/dL HCT 35.0 (L) 40.0 - 48.4 % MCV 103.6 82.0 - 99.5 fL MCH 31.1 27.0 - 34.0 pg MCHC 30.0 32.0 - 36.0 g/dL RDW 15.8 11.5 - 15.5 % PLT 172 140 - 400 K/uL MPV 11.2 6.6 - 11.1 fL nRBCs 0 <=0 /100 WBCs DIFFERENTIAL, AUTOMATED Result Value Ref Range WBC 9.03 4.00 - 10.80 K/uL Neutrophils % 71.1 40.0 - 75.0 % Lymphocytes % 11.6 (L) 18.0 - 42.0 % Monocytes % 14.1 (H) 1.0 - 11.0 % Eosinophils % 2.2 0.0 - 6.0 % Basophils % 0.4 0.0 - 2.0 % Immature Granulocytes % 0.6 0.0 - 2.0 % Absolute Neutrophils 6.42 1.80 - 7.70 K/uL Absolute Lymphocytes 1.05 1.00 - 4.80 K/ul Absolute Monocytes 1.27 (H) 0.00 - 1.10 K/uL Absolute Eosinophils 0.20 0.00 - 0.70 K/uL Absolute Basophils 0.04 0.00 - 0.20 K/uL Absolute Immature Granulocytes 0.05 0.00 - 0.20 K/uL *Note: Due to a large number of results and/or encounters for the requested time period, some results have not been displayed. A complete set of results can be found in Results Review. Recent blood test were done on 08/06/2024 including CBC, CMP and myeloma panel. All are in acceptable range with normalization of the IgG level. REVIEW OF SYSTEMS: General: No [...] Hematuria or dysuria Musculoskeletal: No bone pain Psychiatric: No vegetative signs of depression Endocrine: [...] as needed for Nausea. 30 Tablet 2 [facility] Calcium Citrate+D3 Petites 200-6.25 MG-MCG Oral Tablet (Calcium Citrate- Vitamin D) Take 1 Tablet by mouth in the morning. 90 Tablet 1 Probiotic Acidophilus Oral Capsule Take by mouth daily. Nitroglycerin 0.4 MG Sublingual Tablet Sublingual (Nitrostat) One tablet under tongue if needed forchest pain. May repeat 3 times. If chest pain continues, call 911 75 Tablet 3 traMADol HCl 50 MG Oral Tablet (Ultram) Take 1 Tablet by mouth every 6 hours as needed for Pain, Moderate. 30 Tablet 0 Ipratropium-Albuterol 0.5-2.5 (3) MG/3ML Inhalation Solution (Duoneb) Inhale 3 mL via nebulizer in the morning and 3 mL at noon and 3 mL in the evening and 3 mL before bedtime. (Patient not taking: Reported on 06/18/2024) 100 mL 1 Metoprolol Tartrate 50 MG Oral Tablet (Lopressor) Take 1 Tablet by mouth in the morning and 1 Tablet before bedtime. 180 Tablet 0 Acyclovir 400 MG Oral Tablet (Zovirax) Take 1 Tablet by mouth in the morning and 1 Tablet before bedtime. 180 Tablet 3 dexAMETHasone 4 MG Oral Tablet (Decadron) Take 20mg (5 tablets) once a week 60 Tablet 3 Mirtazapine 15 MG Oral Tablet (Remeron) TAKE 1 TAB BY MOUTH AT BEDTIME. TO HELP WITH APPETITE, AND MOOD. 90 Tablet 3 Atorvastatin Calcium 80 MG Oral Tablet (Lipitor) TAKE 1 TABLET BY MOUTH EVERY DAY IN THE MORNING 90Tablet 0 Pantoprazole Sodium 20 MG Oral Tablet Delayed Release (Protonix) Take 1 Tablet by mouth in the morning. 30 minutes before the first meal of the day. Do not crush, split or chew the tablet. 90 Tablet 1 Cyanocobalamin 1000 MCG Oral Tablet (Cyanocobalamin) Take 1 Tablet by mouth in the morning. 90 Tablet 1 Lenalidomide 10 MG Oral Capsule (Revlimid) Take 1 Capsule by mouth in the morning. For 14 days on, 7 days off of a 21 day cycle. Take medication same time every day and consistently with or without food.. 14 Capsule 0 No current facility-administered medications for this visit. Social History Tobacco Use Smoking status: Former Current packs/day: 0.00 Average packs/day: 1 pack/day for 40.0 years (40.0 ttl pk-yrs) Types: Cigarettes Start date: 08/22/1983 Quit date: 08/22/2023 Years since quittin.9 Passive exposure: Current Smokeless tobacco: Never Vaping Use Vaping status: Never Used Substance Use Topics Alcohol use: No Comment: [...] Good pulses bilaterally, no peripheral edema. ASSESSMENT: 74-year-old presented with hematuria and was found to [...] level. Treatment was resumed on 12/06/2022. He was admitted to the hospital with generalized weakness and increasing shortness of breath. He had COVID infection plus pneumonia. He was treated with the antibiotic. Now clinically he is feeling better but still complaining of generalized weakness and fatigue. He received last dose of treatment on 08/16/2023. He refused to continue further treatment. Now he has relapse with increasing light chain and IgG level. Recent PET scan done on 06/11/2024 shows no evidence of new disease or progression. Currently he has been treated with VRD including Velcade plus Revlimid and Decadron. Overall clinically he is stable without any new symptoms complain. There is a normalization of the IgG levels since the start of the treatment. Discussed with the patient about diagnosis reviewed [...] documented in this encounter Nursing Notes * Belem Campbell, LOBITO ASSIST - 08/07/2024 9:23 AM EST Patient identifed by name [...] it for you? ALREADY ACTIVE Filed Vitals: 08/07/24 0921 BP: 138/99 Pulse: 77 Temp: 36.2 C (97.1 F) TempSrc: Tympanic SpO2: 99% Weight: 78.2 kg (172 lb 4.8 oz) Patient was instructed to [...] 9:00 AM EST Pharmacy Pharmacy Hematology Oncology [address] [address] [facility], [facility] Hem/Onc [address] [place] [address] 08/21/2024 9:30 AM EST Hem/Onc Treatment Hematology/Oncology Treatment, [address] [place] [phone] Tresa, Chair 6 Hem Onc Scenery [address] [place] [address] [place] [address] 09/04/2024 10:00 AM EST Hem/Onc Treatment Hematology/Oncology Treatment, [place] 200 [facility], [place] [address] Tresa, Chair 6 Hem Onc Scenery [address] [place] [address] 09/05/2024 1:15 PM EST Imaging Radiology [facility] [address]st [address] [place] [address] 09/11/2024 1:30 PM EST Office Visit Vascular Surgery, [address] [place] [address] Darrin Lowe MD [address] [place] [address] Scheduled Orders Name Type Priority Associated Diagnoses Orde r Schedule CBC WITH WBC DIFFERENTIAL Lab Routine Multiple myeloma, remission status unspecified (HCC) Expected: 09/18/2024, Expires: 01/14/2025 COMPREHENSIVE METABOLIC PANEL Lab Routine Multiple myeloma, remission status unspecified (HCC) Expected: 09/18/2024, Expires: 01/14/2025 IMMUNOGLOBULIN QUANTITATIVE Lab Routine Multiple myeloma, remission status unspecified (HCC) Expected: 09/18/2024, Expires: 01/14/2025 SERUM FREE LIGHT CHAINS Lab Routine Multiple myeloma, remission status unspecified (HCC) Expected: 09/18/2024, Expires: 01/14/2025 SERUM PROTEIN ELECTROPHORESIS REFLEX PROFILE Lab Routine Multiple myeloma, remission status unspecified (HCC) Expected: 09/18/2024, Expires: 01/14/2025 Scheduled Procedures Name Priority Associated Diagnoses Date/Ti [...] Additional history exists CKD PHOS USE SMARTSET 96849 07/09/202506/25, 02/13/2023, 02/11/2021 Albumin/Creatinine Ratio 07/23/2025 07/23/2024, 08/25 O2 ASSESSMENT COMPLETED IN PAST YEAR FOR COPD 07/24/2025 07/24/2024 CKD HGB USE SMARTSET 40927 08/06/202508/06, 08/06/2024, 07/23/2024, Additional history exists Pneumococcal Vaccine: 65+ Years [...] Primary documented in this encounter Care Teams Spray Rig Operator Relationship Specialty Start Date End Date Savanah Geiger DO [address] [place], [place] [phone] PCP - General Family Medicine 04/11/12 documented as of this encounter
--- OUTSIDE RECORDS SUMMARY | 2024-09-04 22:27 | External Medical Summary | Summary of Care ---
Author Name Unknown Organization [facility] Address [address] [place] [address] Phone [phone] Care Team Providers Care Embedded Case Manager Name Role Phone Marcelinajaskaran Savanah Oswaldo JIMÉNEZ Primary Care Provider Encounter Details Date Type Department Care Team (Late st Contact Info) Description 08/04/2024 Orders Only Hematology/Oncology, [address] [phone] Luann De La Cruz MD [address] [place], [place] [phone] Allergies Active Allergy Reactions Criticality Noted Date Comments Calcium Carb-Cholecalciferol 016 documented as of this encounter (statuses as of 08/04/2024) Medications ASPIRIN ADULT LOW DOSE 81 MG [...] Sublingual Tablet Sublingual (Nitrostat)Asha cations:Atheros clerosis of [place] coronary artery of [place] heart without angina pectoris One tablet under [...] as of this encounter (statuses as of 08/04/2024) Active Problems Problem Noted Date Diagnosed Date [...] cancer 04/24/2020 Coronary artery disease invo lving [place] heart without angina pectoris 05/22/2019 Old myocardial infarct 12/06/2018 S/p bare metal coronary artery stent 01/12/2015 Tobacco use disorder 04/16/2012 HTN, goal below 130/80 2012 GERD (gastroesophageal reflux disease) 2 documented as of this encounter (statuses as of 08/04/2024) Resolved Problems Problem Noted Date Diagnosed Date Resolved Date Coronary artery disease of n ative artery of [place] heart with stable angina pectoris 08/21/2023 08/21/2023 Dehydration 02/01/2021 03/29/2022 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 Atherosclerosis of coronary artery without angina pectoris 09/14/2018 03/29/2022 ST elevation myocardial infarction (STEMI) 03/20/2017 12/06/2018 Lung nodule 10/14/2015 03/29/2022 ST elevation myocardial infa rction (STEMI) involving other coronary artery 05/19/2015 03/20/[address] elevation [place] (STEMI) 01/12/201508/26 Myocardial infarction 02/03/20142017 COPD, moderate 08/27/2013 08/06/2020 Overview: Per COPD GOLD Classification Noncompliance 03/13/2013 03/21/2017 Anemia 05/03/2012 03/29/2022 COPD, severity to be determined 04/16/2012 08/27/2013 Dyslipidemia, goal LDL below 70 04/16/2012 03/29/2022 documented as of this encounter (statuses as of 08/04/2024) Immunizations Name Administration Dates Next Due COVID-19 mRNA, LNP-s, No Pre serve, 2-Dose Series (Proterro) 08/28/2021,02/18/2021,01/28/2021 Pneumococcal Conjugate Vacc, 13 Valent (Prevnar) [...] Description 08/06/2024 12:00 PM EST Laboratory Laboratory, [address] [phone] [place] [address] [place] [address] 08/07/2024 9:30 AM EST Office Visit Hematology/Oncology [facility] Tresa [place] [address] [place] [address] Luann De La Cruz MD [address] [place] [address] 08/07/2024 9:30 AM EST Hem/Onc Treatment Hematology/Oncology Treatment, [place] [address] [place] [phone] Tresa, Chair 6 Hem Onc [facility] 200 [facility] [place] [address] 08/21/2024 9:00 AM EST Pharmacy Pharmacy Hematology Oncology [place] [address] [place] [address] [facility] Hem/Onc [address] [place] [address] 09/05/2024 1:15 PM EST Imaging Radiology [facility] 1st [facility] [address] [facility] [place] [address] 09/11/2024 1:30 PM EST Office Visit Vascular Surgery, [facility] 132 [facility] [place] [address] Darrin Lowe MD [address] [place] [address] Scheduled Procedures Name Priority Associated Diagnoses [...] Additional history exists CKD PHOS USE SMARTSET 62331 07/09/202506/25, 02/13/2023, 02/11/2021 Albumin/Creatinine Ratio 07/23/2025 07/23/2024, 08/25 CKD HGB USE SMARTSET 11232 07/23/202507/23, 07/23/2024, 07/09/2024, Additional history exists O2 [...] filedocumented as of this encounter Care Teams Embedded Case Manager Relationship Specialty Start Date End Date Savanah Gieger DO [address] [place] [address] PCP - General Family Medicine 04/11/12 documented as of this encounter
--- OUTSIDE RECORDS SUMMARY | 2024-09-04 22:27 | External Medical Summary ---
Author Name Unknown Address Unknown Organization K01:LABORATORY [facility] - [address] [facility] [place] [address] Laboratory Report Ordering Provider Test Date Status MARY ANNE LAGUNA 08/06/2024 10:57:30 Final Observation Date Value Abnormality Reference (Units ) Status BUN 08/06/2024 10:57:30 24 Above high normal 6-20 (mg/dL) Final Creatinine 08/06/2024 10:57:30 1.3 Above high normal 0.6-1.2 (mg/dL) Final Glomerular filtration rate/1.73 sq M.predicted [Volume Rate/Area] in Serum, Plasma or Blood by Creatinine-based formula (CKD-EPI) 08/06/2024 10:57:30 61 >=60 (mL/min) Final eGFR is calculated based on the CKD-EPI 2020 equation. Sodium 08/06/2024 10:57:30 136 135-146 (m mol/L) Final Potassium 08/06/2024 10:57:30 3.9 3.5-5.1 (m mol/L) Final Cl 08/06/2024 10:57:30 103 98-107 (mm ol/L) Final CO2 08/06/2024 10:57:30 19 Below low normal 22- 32 (mmol/L) Final Anion gap 08/06/2024 10:57:30 14 7-15 (mmol /L) Final Glucose 08/06/2024 10:57:30 106 70-120 (mg /dL) Final Albumin 08/06/2024 10:57:30 3.8 3.8-5.0 (g /dL) Final AST (Aspartate aminotransferase) 08/06/2024 10:57:30 14 10-50 (U/L) Fin al Alk Phos 08/06/2024 10:57:30 92 35-130 (U/ L) Final Bilirubin, Total 08/06/2024 10:57:30 0.4 <=1 .2 (mg/dL) Final Calcium 08/06/2024 10:57:30 8.0 Below low normal 8.4 -10.2 (mg/dL) Final Protein 08/06/2024 10:57:30 6.2 6.0-8.3 (g /dL) Final ALT (Alanine aminotransferase) 08/06/2024 10:57:30 16 10-50 (U/L) Andrzej caal Performing Location LABORATORY [facility] - [address] [facility] [address]
--- OUTSIDE RECORDS SUMMARY | 2024-09-04 22:27 | External Medical Summary | Summary of Care ---
Author Name Unknown Organization [facility] Address [address] [place] [address] Phone [phone] Care Team Providers Care Customs Inspector Name Role Phone Savanah Geiger DO Primary Care Provider + [phone] Reason for Visit * Reason Comments Chemotherapy Velcade day 1, cycle 2 * Episode Based Medications (Routine) - Authorized Specialty Diagnoses / Procedures Referred By Contnataliia t Referred To Contact Diagnoses Multiple myeloma not having achieved remission (HCC) Encounter for antineoplastic chemotherapy Procedures [place] INJECTION, BORTEZOMIB, 0.1MG Luann De La Cruz MD [address] [place] [address] Anc Hem/Onc [facility] DEPT CLOSED - 08/08/23 [address] [place] [address] Referral ID Status Reason Start Date Expiration Date V isits Requested Visits Authorized [id number] Authorized 06/18/2024 06/19/[phone] Encounter Details Date Type Department Care Team (Latest Contact Info) Description 07/24/2024 11:00 AM EDT Hem/Onc Treatment Hematology/Oncolog y Treatment, [place] [address] [place] [address] Tresa, Chair 9 Hem Onc Scenery [address] [place] [address] Multiple myeloma not having achieved remission (HCC)*; [...] Sublingual Tablet Sublingual (Nitrostat)Indicat ions:Atheroscleros is of [place] coronary artery of [place] heart without angina pectoris One tablet under [...] cancer 04/24/2020 Coronary artery disease invo lving [place] heart without angina pectoris 05/22/2019 Old myocardial infarct 12/06/2018 S/p bare metal coronary artery stent 01/12/2015 Tobacco use disorder 04/16/2012 HTN, goal below 130/80 2012 GERD (gastroesophageal reflux disease) 2 documented as of this encounter (statuses as of 07/24/2024) Resolved Problems Problem Noted Date Diagnosed Date Resolved Date Coronary artery disease of n ative artery of [place] heart with stable angina pectoris 08/21/2023 08/21/2023 [...] mRNA, LNP-s, No Pre serve, 2-Dose Series (Ovonyx) 08/28/2021,02/18/2021,01/28/2021 Pneumococcal Conjugate Vacc, 13 Valent (Prevnar) [...] 2:25 PM EDT Sexual Orientation Straight 10/11/2023 7 :03 PM EST Job Start Date Occupation Industry [...] Description 08/06/2024 12:00 PM EST Laboratory Laboratory, [place] [address] [place] [address] [facility] [address] [place] [address] 08/07/2024 9:30 AM EST Office Visit Hematology/Oncology [facility] Tresa [place] [address] [facility] [place] [address] Luann De La Cruz MD 200 [facility] [place] [address] 08/07/2024 10:00 AM EST Hem/Onc Treatment Hematology/Oncology Treatment, [place] [address] [facility] [address] [place] [phone] Tresa Chair 8 Hem Onc [facility] 200 [facility] [place] [address] 08/21/2024 9:00 AM EST Pharmacy Pharmacy Hematology Oncology [address] [address] [facility] Hem/Onc [address] [place] [address] 09/05/2024 1:15 PM EST Imaging Radiology [facility] 1st [facility] 132 [place] [address] 09/11/2024 1:30 PM EST Office Visit Vascular Surgery, [facility] [address] [place] [address] Darrin Lowe MD [address] [place] [address] Scheduled Procedures Name Priority Associated Diagnoses Date/Ti [...] Additional history exists CKD PHOS USE SMARTSET 78557 07/09/202506/25, 02/13/2023, 02/11/2021 Albumin/Creatinine Ratio 07/23/2025 07/23/2024, 08/25 CKD HGB USE SMARTSET 95284 07/23/202507/23, 07/23/2024, 07/09/2024, Additional history exists O2 [...] Lower documented in this encounter Care Teams Customs Inspector Relationship Specialty Start Date End Date Savanah Geiger DO [address] [place] [address] PCP - General Family Medicine 04/11/12 documented as of this encounter
--- OUTSIDE RECORDS SUMMARY | 2024-09-04 22:27 | External Medical Summary | Summary of Care ---
Author Name Unknown Organization [facility] Address [address] [place] [address] Phone [phone] Care Team Providers Care Gui Developer Name Role Phone CaseySavanah harry Oswaldo JIMÉNEZ Primary Care Provider [phone] Reason for Visit * Reason Comments Outpatient Testing Encounter Details Date Type Department Care Team (Late st Contact Info) Description 08/06/2024 12:00 PM EST Laboratory Laboratory, [place] [address] [place] [address] [place], [facility] [address] [place] [address] Multiple myeloma not having achieved [...] Sublingual Tablet Sublingual (Nitrostat)Asha cations:Atheros clerosis of [place] coronary artery of [place] heart without angina pectoris One tablet under [...] cancer 04/24/2020 Coronary artery disease invo lving [place] heart without angina pectoris 05/22/2019 Old myocardial infarct 12/06/2018 S/p bare metal coronary artery stent 01/12/2015 Tobacco use disorder 04/16/2012 HTN, goal below 130/80 2012 GERD (gastroesophageal reflux disease) 2 documented as of this encounter (statuses as of 08/06/2024) Resolved Problems Problem Noted Date Diagnosed Date Resolved Date Coronary artery disease of n ative artery of [place] heart with stable angina pectoris 08/21/2023 08/21/2023 Dehydration 02/01/2021 03/29/2022 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 Atherosclerosis of coronary artery without angina pectoris 09/14/2018 03/29/2022 ST elevation myocardial infarction (STEMI) 03/20/2017 12/06/2018 Lung nodule 10/14/2015 03/29/2022 ST elevation myocardial infa rction (STEMI) involving other coronary artery 05/19/2015 03/20/[address] elevation [place] (STEMI) 01/12/201508/26 Myocardial infarction 02/03/20142017 COPD, moderate 08/27/2013 08/06/2020 Overview: Per COPD GOLD Classification Noncompliance 03/13/2013 03/21/2017 Anemia 05/03/2012 03/29/2022 COPD, severity to be determined 04/16/2012 08/27/2013 Dyslipidemia, goal LDL below 70 04/16/2012 03/29/2022 documented as of this encounter (statuses as of 08/06/2024) Immunizations Name Administration Dates Next Due COVID-19 mRNA, LNP-s, No Pre serve, 2-Dose Series (FameCast) 08/28/2021,02/18/2021,01/28/2021 Pneumococcal Conjugate Vacc, 13 Valent (Prevnar) [...] 08/07/2024 9:30 AM EST Office Visit Hematology/Oncology [address] [place] [phone] Luann De La Cruz MD 200 [facility] [place] [address] 08/07/2024 9:30 AM EST Hem/Onc Treatment Hematology/Oncology Treatment, [place] [address] [facility] [address] [place] [phone] Tresa, Chair [address] Hem On[address] [place] [address] 08/21/2024 9:00 AM EST Pharmacy Pharmacy Hematology Oncology [facility] [address] [place] [address] [facility] Hem/Onc [address] [place] [address] 09/05/2024 1:15 PM EST Imaging Radiology [facility] 1st [facility] 132 [facility] [place] [address] 09/11/2024 1:30 PM EST Office Visit Vascular Surgery, [facility] [address] [place] [address] Darrin Lowe MD [address], [place] [phone] Pending Results Name Type Priority Associated Diagnoses Date /Time SERUM PROTEIN ELECTROPHORESIS REFLEX PROFILE Lab STAT Multiple myeloma not having achieved remission (HCC) 08/06/2024 10:57 AM EST IMMUNOGLOBULIN QUANTITATIVE Lab STAT Multiple myeloma not having achieved remission (HCC) 08/06/2024 10:57 AM EST SERUM FREE LIGHT CHAINS Lab STAT Multiple myeloma not having achieved remission (HCC) 08/06/2024 10:57 AM EST CBC WITH WBC DIFFERENTIAL Lab STAT Multiple myeloma not having achieved remission (HCC) 08/06/2024 10:57 AM EST COMPREHENSIVE METABOLIC PANEL Lab STAT Multiple myeloma not having achieved remission (HCC) 08/06/2024 10:57 AM EST CBC Lab STAT Multiple myeloma not having achieved remission (HCC) 08/06/2024 10:57 AM EST DIFFERENTIAL, AUTOMATED Lab STAT Multiple myeloma not having achieved remission (HCC) 08/06/2024 10:57 AM EST Scheduled Procedures Name Priority Associated [...] Additional history exists CKD PHOS USE SMARTSET 53001 07/09/202506/25, 02/13/2023, 02/11/2021 Albumin/Creatinine Ratio 07/23/2025 07/23/2024, 08/25 CKD HGB USE SMARTSET 37427 07/23/202507/23, 07/23/2024, 07/09/2024, Additional history exists O2 [...] remission documented in this encounter Care Teams Gui Developer Relationship Specialty Start Date End Date Savanah Geiger DO [address] [place] [address] PCP - General Family Medicine 04/11/12 documented as of this encounter
--- OUTSIDE RECORDS SUMMARY | 2024-09-04 22:27 | External Medical Summary ---
Author Name Unknown Address Unknown Organization [id number]:[facility] 100 [facility] [address] Laboratory Report Ordering Provider Test Date Status [...] Abnormality Reference (Units ) Status WBC, Total 08/06/2024 10:57:30 9.03 4.00-10.80 (K/uL) Final RBC 08/06/2024 10:57:30 3.38 4.50-5.25 (M/uL) Final Hemoglobin 08/06/2024 10:57:30 10.5 Below low normal 14.0-16.8 (g/dL) Final HCT 08/06/2024 10:57:30 35.0 Below low normal 40.0-48.4 (%) Final MCV 08/06/2024 10:57:30 103.6 82.0-99.5 (fL) Final MCH 08/06/2024 10:57:30 31.1 27.0-34.0 (pg) Final MCHC 08/06/2024 10:57:30 30.0 32.0-36.0 (g/dL) Final RDW 08/06/2024 10:57:30 15.8 11.5-15.5 (%) Final Platelets 08/06/2024 10:57:30 172 140-400 (K/uL) Final MPV 08/06/2024 10:57:30 11.2 6.6-11.1 (fL) Final Nucleated erythrocytes/100 leukocytes [Ratio] in Blood by Automated count 08/06/2024 10:57:30 0 <=0 (/100 WBCs) Final Performing Location [facility] [place] [facility] [address] [facility] [address]
--- OUTSIDE RECORDS SUMMARY | 2024-09-04 22:27 | External Medical Summary | Summary of Care ---
Author Name Unknown Organization [facility] Address [address] [place] [address] Phone [phone] Care Team Providers Care Goodwill Representative Name Role Phone Savanah Geiger DO Primary Care Provider + [phone] Reason for Visit * Reason Comments Chemotherapy Velcade * Episode Based Medications (Routine) - Authorized Specialty Diagnoses / Procedures Referred By Suki t Referred To Contact Diagnoses Multiple myeloma not having achieved remission (HCC) Encounter for antineoplastic chemotherapy Procedures MI INJECTION, BORTEZOMIB, 0.1MG Luann De La Cruz MD 200 [facility] [place] [address] Phone: tel: fax: Hematology/Oncology Treatment, [place] DEPT CLOSED - 08/08/23 [address] [place] [address] Phone: tel: fax: Referral ID Status Reason Start Date Expiration Date V isits Requested Visits Authorized [id number] Authorized 06/18/2024 06/19/[phone] Encounter Details Date Type Department Care Team (Latest Contact Info) Description 07/10/2024 12:45 PM EDT Hem/Onc Treatment Hematology/Oncolog y Treatment, [place] [address] [place] [address] Tresa, Chair 2 Hem Onc Scene [address] [place] [address] Multiple myeloma not having achieved remission (HCC)*; [...] Sublingual Tablet Sublingual (Nitrostat)Asha cations:Atheros clerosis of [place] coronary artery of [place] heart without angina pectoris One tablet under [...] cancer 04/24/2020 Coronary artery disease invo lving [place] heart without angina pectoris 05/22/2019 Old myocardial infarct 12/06/2018 S/p bare metal coronary artery stent 01/12/2015 Tobacco use disorder 04/16/2012 HTN, goal below 130/80 2012 GERD (gastroesophageal reflux disease) 2 documented as of this encounter (statuses as of 08/06/2024) Resolved Problems Problem Noted Date Diagnosed Date Resolved Date Coronary artery disease of n ative artery of [place] heart with stable angina pectoris 08/21/2023 08/21/2023 Dehydration 02/01/2021 03/29/2022 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 (Household - for [...] Description 08/06/2024 12:00 PM EST Laboratory Laboratory, [place] [address] [place] [address] [facility] [address] [place] [address] 08/07/2024 9:30 AM EST Office Visit Hematology/Oncology [facility] [place] 200 [facility] [place] [phone] Luann De La Cruz MD [address] [place] [address] 08/07/2024 9:30 AM EST Hem/Onc Treatment Hematology/Oncology Treatment, [place] [address] [place] [phone] Tresa, Chair 6 Hem Onc Scenery 200 [facility] [place] [address] 08/21/2024 9:00 AM EST Pharmacy Pharmacy Hematology Oncology [place] [address] [place] [address] [facility], [facility] Hem/Onc [facility] [place] [address] 09/05/2024 1:15 PM EST Imaging Radiology [facility] 1st [facility] 132 [facility] [address] 09/11/2024 1:30 PM EST Office Visit Vascular Surgery, [facility] [address] [place] [address] Darrin Lowe MD [address] [facility] [place] [address] Scheduled Procedures Name Priority Associated Diagnoses Date/Ti [...] Additional history exists CKD PHOS USE SMARTSET 43776 07/09/202506/25, 02/13/2023, 02/11/2021 Albumin/Creatinine Ratio 07/23/2025 07/23/2024, 08/25 CKD HGB USE SMARTSET 97241 07/23/202507/23, 07/23/2024, 07/09/2024, Additional history exists O2 [...] Lower documented in this encounter Care Teams Goodwill Representative Relationship Specialty Start Date End Date Savanah Geiger DO [address] [place] [address] PCP - General Family Medicine 04/11/12 documented as of this encounter
--- OUTSIDE RECORDS SUMMARY | 2024-09-04 22:28 | External Medical Summary ---
Author Name Unknown Address Unknown Organization [id number]:LABORATORY [place] [address] [facility] [address] Laboratory Report Ordering Provider Test Date Status MARY ANNE LAGUNA 07/23/2024 10:31:28 Final Observation Date Value Abnormality Reference (Units ) Status Edmondson light chains, Free, Serum 07/23/2024 10:31:28 15.84 3.30-19.40 (mg/L) Final Lambda light chains, free, Serum 07/23/2024 10:31:28 78.51 Above high normal 5.71-26.30 (mg/L) Final KAPPA LAMBDA FLC RATIO 07/23/2024 10:31:28 0.20 Below low normal 0.26-1.65 Final Performing Location [facility] [place] [facility] [place] [address]
--- OUTSIDE RECORDS SUMMARY | 2024-09-04 22:28 | External Medical Summary ---
Author Name Unknown Address Unknown Organization [id number]:[facility]ORY [facility] [place] - [facility] [address] [facility] [address] [facility] [place] [address] Laboratory Report Ordering Provider Test Date Status MARY ANNE LAGUNA 07/23/2024 10:31:28 Final Observation Date Value Abnormality Reference (Units) Status PARAPROTEIN NORMAL/ABNORMAL 07/23/2024 10:31:28 Abnormal Abnormal Normal Final Protein 07/23/2024 10:31:28 6.2 6.0-8.3 (g/dL) Final Albumin/Protein.total [Pure mass fraction] in Serum or Plasma by Electrophoresis 07/23/2024 10:31:28 2.88 Below low normal 3.30-4.40 (g/dL) Final Alpha 1 globulin/Protein.tota l [Pure mass fraction] in Serum or Plasma by Electrophoresis 07/23/2024 10:31:28 0.30 0.10-0.30 (g/dL) Final Alpha 2 globulin/Protein.tota l [Pure mass fraction] in Serum or Plasma by Electrophoresis 07/23/2024 10:31:28 1.04 Above high normal 0.60-1.00 (g/dL) Final Beta globulin/Protein.tota l [Pure mass fraction] in Serum or Plasma by Electrophoresis 07/23/2024 10:31:28 0.77 Below low normal 0.80-1.30 (g/dL) Final Gamma globulin/Protein.tota l [Pure mass fraction] in Serum or Plasma by Electrophoresis 07/23/2024 10:31:28 1.21 0.70-1.70 (g/dL) Final Monoclonal protein 07/23/2024 10:31:28 1.01 (g/dL) Final Protein Fractions [Interpretation] in Serum or Plasma by Electrophoresis Narrative 07/23/2024 10:31:28 Abnormal. A paraprotein is present that has been previously identified as a monoclonal IgG lambda. Final Performing Location LABORATORY [facility] - [address] [facility] [place] [address]
--- OUTSIDE RECORDS SUMMARY | 2024-09-04 22:28 | External Medical Summary | Summary of Care ---
Author Name Unknown Organization [facility] Address [address] [place] [address] Phone [phone] Care Team Providers Care Maintenance Mechanic Technician Name Role Phone Caseypiero Savanah Oswaldo JIMÉNEZ Primary Care Provider + [phone] Reason for Visit * Reason Comments Outpatient Testing Encounter Details Date Type Department Care Team (Late st Contact Info) Description 07/23/2024 12:00 PM EDT Laboratory Laboratory, [place] [address] [place] [address] [place], [facility] [address] [place] [address] Multiple myeloma not having achieved remission (HCC); Encounter for long-term (current) use of medications; Chronic kidney disease, stage 3a (HCC) Allergies Active Allergy Reactions Criticality Noted [...] Sublingual Tablet Sublingual (Nitrostat)Indicat ions:Atheroscleros is of [place] coronary artery of [place] heart without angina pectoris One tablet under [...] a week 60 Tablet 3 06/18/2024 Active Lenalidomide 10 MG Oral Capsule (Revlimid)Indicati ons:Multiple myeloma not having achieved remission (HCC) Take 1 Capsule by mouth in the morning. For 14 days on, 7 days off of a 21 day cycle. Take medication same time every day and consistently with or without food.. 14 Capsule 06/24/2024 Active Mirtazapine 15 MG Oral Tablet (Remeron)Indicatio [...] the morning. 90 Tablet 1 07/10/2024 Active documented as of this encounter (statuses [...] cancer 04/24/2020 Coronary artery disease invo lving [place] heart without angina pectoris 05/22/2019 Old myocardial infarct 12/06/2018 S/p bare metal coronary artery stent 01/12/2015 Tobacco use disorder 04/16/2012 HTN, goal below 130/80 2012 GERD (gastroesophageal reflux disease) 2 documented as of this encounter (statuses as of 07/23/2024) Resolved Problems Problem Noted Date Diagnosed Date Resolved Date Coronary artery disease of n ative artery of [place] heart with stable angina pectoris 08/21/2023 08/21/2023 Dehydration 02/01/2021 03/29/2022 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 Atherosclerosis of coronary artery without angina pectoris 09/14/2018 03/29/2022 ST elevation myocardial infarction (STEMI) 03/20/2017 12/06/2018 Lung nodule 10/14/2015 03/29/2022 ST elevation myocardial infa rction (STEMI) involving other coronary artery 05/19/2015 03/20/[address] elevation [place] (STEMI) 01/12/201508/26 Myocardial infarction 02/03/20142017 COPD, moderate 08/27/2013 08/06/2020 Overview: Per COPD GOLD Classification Noncompliance 03/13/2013 03/21/2017 Anemia 05/03/2012 03/29/2022 COPD, severity to be determined 04/16/2012 08/27/2013 Dyslipidemia, goal LDL below 70 04/16/2012 03/29/2022 documented as of this encounter (statuses as of 07/23/2024) Immunizations Name Administration Dates Next Due COVID-19 mRNA, LNP-s, No Pre serve, 2-Dose Series (Remote Assistant) 08/28/2021,02/18/2021,01/28/2021 Pneumococcal Conjugate Vacc, 13 Valent (Prevnar) [...] 9:00 AM EDT Pharmacy Pharmacy Hematology Oncology [place] [address] [place] [address] [facility] Hem/Onc [facility] [place] [address] 07/24/2024 11:00 AM EDT Hem/Onc Treatment Hematology/Oncology Treatment, [place] [address] [place] [address] Tresa, Chair 9 Hem Onc Scenery [facility] [phone] 08/06/2024 12:00 PM EST Laboratory Laboratory, [place] [address] [place] [address] [facility] [address] [place] [address] 08/07/2024 9:30 AM EST Office Visit Hematology/Oncology [facility] [place] [address] [place] [phone] Luann De La Cruz MD [address] [place] [address] 08/07/2024 10:00 AM EST Hem/Onc Treatment Hematology/Oncology Treatment, [place] [address] [place] [phone] Tresa, Chair 8 Hem Onc Scenery [address] [place] [address] 09/05/2024 1:15 PM EST Imaging Radiology [facility] [address] [place] [address] 09/11/2024 1:30 PM EST Office Visit Vascular Surgery, [facility] [address] [place] [address] Darrin Lowe MD [address] [place] [address] Pending Results Name Type Priority Associated Diagnoses Date /Time COMPREHENSIVE METABOLIC PANEL Lab STAT Multiple myeloma not having achieved remission (HCC) 07/23/2024 10:31 AM EDT SERUM PROTEIN ELECTROPHORESIS REFLEX PROFILE Lab STAT Multiple myeloma not having achieved remission (HCC) 07/23/2024 10:31 AM EDT IMMUNOGLOBULIN QUANTITATIVE Lab STAT Multiple myeloma not having achieved remission (HCC) 07/23/2024 10:31 AM EDT SERUM FREE LIGHT CHAINS Lab STAT Multiple myeloma not having achieved remission (HCC) 07/23/2024 10:31 AM EDT CBC WITH WBC DIFFERENTIAL Lab STAT Multiple myeloma not having achieved remission (HCC) 07/23/2024 10:31 AM EDT ALBUMIN / CREATININE RATIO, URINE Lab Routine Encounter for long-term (current) use of medications Chronic kidney disease, stage 3a (HCC) 07/23/2024 10:31 AM EDT CBC Lab STAT Multiple myeloma not having achieved remission (HCC) 07/23/2024 10:31 AM EDT DIFFERENTIAL, AUTOMATED Lab STAT Multiple myeloma not having achieved remission (HCC) 07/23/2024 10:31 AM EDT Scheduled Procedures Name Priority Associated Diagnoses Date/Ti me COLONOSCOPY FLEXIBLE PROXIMAL DIAGNOSTIC Recall History of colon polyps Health Maintenance Due Date Last Done Comments Alpha-1 Antitrypsin 02/13/1970 Hepatitis C Screening 02/13/1970 Cologuard 02/13/1997 Fecal Occult Blood Test 02/13/1997 Sigmoidoscopy 02/13/1997 Adult Wellness Visit 02/13/2018 Colonoscopy 05/23/2020 05/23/2017 Colorectal Cancer Screening 05/23/2020 COVID-19 Vaccine ( season) 2024 08/28/2021, 02/18/2021, 01/28/2021 Albumin/Creatinine Ratio 09/11/2024 09/11/2023 GFR 01/07/2025 07/09/2024, 09/2023, 05/22/2024, Additional history exists Depression Screening 01/11/2025 01/12/2024, 07/12/2017 (Declined) CKD HGB USE SMARTSET 42322 07/09/202507/09, 07/09/2024, 06/25/2024, Additional history exists CKD PHOS USE SMARTSET 86804 07/09/202506/25, 02/13/2023, 02/11/2021 O2 ASSESSMENT COMPLETED IN PAST YEAR FOR COPD 07/10/2025 07/10/2024 Pneumococcal Vaccine: 65+ Years Completed 07/25/2022, 07/09/2020 [...] mention of having achieved remission Encounter for long-term (current) use of medications Encounter for long-term (current) use of other medications Chronic kidney disease, stage 3a (HCC) documented in this encounter Care Teams Maintenance Mechanic Technician Relationship Specialty Start Date End Date Savanah Geiger DO [address] [place] [address] PCP - General Family Medicine 04/11/12 documented as of this encounter
--- OUTSIDE RECORDS SUMMARY | 2024-09-04 22:28 | External Medical Summary ---
Author Name Unknown Address Unknown Organization K01:LABORATORY [facility] - [address] [place] [place] [address] Laboratory Report Ordering Provider Test Date Status MARY ANNE LAGUNA 07/23/2024 10:31:28 Final Observation Date Value Abnormality Reference (Units ) Status IgG 07/23/2024 10:31:28 5399 194-9708 ( mg/dL) Final IgA 07/23/2024 10:31:28 85 70-400 (mg /dL) Final IgM 07/23/2024 10:31:28 13 Below low normal 40- 230 (mg/dL) Final Performing Location LABORATORY [facility] - [address] [place] [address]
--- OUTSIDE RECORDS SUMMARY | 2024-09-04 22:28 | External Medical Summary ---
Author Name Unknown Address Unknown Organization [id number]:[facility]ORY [facility] [place] - 100 [facility] [place] [address] Laboratory Report Ordering Provider Test Date Status MARY ANNE LAGUNA 07/23/2024 10:31:28 Final Observation Date Value Abnormality Reference (Units ) Status BUN 07/23/2024 10:31:28 17 6-20 (mg/dL) Final Creatinine 07/23/2024 10:31:28 1.4 Above high normal 0.6-1.2 (mg/dL) Final Glomerular filtration rate/1.73 sq M.predicted [Volume Rate/Area] in Serum, Plasma or Blood by Creatinine-based formula (CKD-EPI) 07/23/2024 10:31:28 54 Below low normal >=60 (mL/min) Final eGFR is calculated based on the CKD-EPI 2020 equation. Sodium 07/23/2024 10:31:28 139 135-146 (m mol/L) Final Potassium 07/23/2024 10:31:28 3.6 3.5-5.1 (m mol/L) Final Cl 07/23/2024 10:31:28 104 98-107 (mm ol/L) Final CO2 07/23/2024 10:31:28 23 22-32 (mmo l/L) Final Anion gap 07/23/2024 10:31:28 12 7-15 (mmol /L) Final Glucose 07/23/2024 10:31:28 109 70-120 (mg /dL) Final Albumin 07/23/2024 10:31:28 3.6 Below low normal 3.8 -5.0 (g/dL) Final AST (Aspartate aminotransferase) 07/23/2024 10:31:28 14 10-50 (U/L) Fin al Alk Phos 07/23/2024 10:31:28 95 35-130 (U/ L) Final Bilirubin, Total 07/23/2024 10:31:28 0.3 <=1 .2 (mg/dL) Final Calcium 07/23/2024 10:31:28 7.9 Below low normal 8.4 -10.2 (mg/dL) Final Protein 07/23/2024 10:31:28 6.2 6.0-8.3 (g /dL) Final ALT (Alanine aminotransferase) 07/23/2024 10:31:28 14 10-50 (U/L) Andrzej caal Performing Location LABORATORY [facility] [place] - [address] [facility] [address]
--- OUTSIDE RECORDS SUMMARY | 2024-09-04 22:28 | External Medical Summary ---
Author Name Unknown Address Unknown Organization K01:LAB[facility]ATORY [facility] - 100 [facility] [place] [address] Laboratory Report Ordering Provider Test Date Status DOMINICK LAGUNAON 07/23/2024 10:31:28 Final Mantel Cell Lymphoma - Every week [...] Abnormality Reference (Units ) Status WBC, Total 07/23/2024 10:31:28 7.82 4.00-10.80 (K/uL) Final RBC 07/23/2024 10:31:28 3.38 4.50-5.25 (M/uL) Final Hemoglobin 07/23/2024 10:31:28 10.8 Below low normal 14.0-16.8 (g/dL) Final HCT 07/23/2024 10:31:28 34.4 Below low normal 40.0-48.4 (%) Final MCV 07/23/2024 10:31:28 101.8 82.0-99.5 (fL) Final MCH 07/23/2024 10:31:28 32.0 27.0-34.0 (pg) Final MCHC 07/23/2024 10:31:28 31.4 32.0-36.0 (g/dL) Final RDW 07/23/2024 10:31:28 15.4 11.5-15.5 (%) Final Platelets 07/23/2024 10:31:28 272 140-400 (K/uL) Final MPV 07/23/2024 10:31:28 11.6 6.6-11.1 (fL) Final Nucleated erythrocytes/100 leukocytes [Ratio] in Blood by Automated count 07/23/2024 10:31:28 0 <=0 (/100 WBCs) Final Performing Location LABORATORY [facility] - [facility] [place] [address]
--- OUTSIDE RECORDS SUMMARY | 2024-09-04 22:28 | External Medical Summary | Summary of Care ---
Author Name Unknown Organization [facility] Address [address] [place] [address] Phone [phone] Care Team Providers Care Cider Maker Name Role Phone Caseypiero Savanah Oswaldo JIMÉNEZ Primary Care Provider + [phone] Reason for Visit * Reason Comments Outpatient Testing Encounter Details Date Type Department Care Team (Late st Contact Info) Description 07/23/2024 12:00 PM EDT Laboratory Laboratory, [place] [address] [place] [address] [place], [place] [address] [place] [address] Multiple [...] Sublingual Tablet Sublingual (Nitrostat)Indicat ions:Atheroscleros is of [place] coronary artery of [place] heart without angina pectoris One tablet [...] cancer 04/24/2020 Coronary artery disease invo lving [place] heart without angina pectoris 05/22/2019 Old myocardial infarct 12/06/2018 S/p bare metal coronary artery stent 01/12/2015 Tobacco use disorder 04/16/2012 HTN, goal below 130/80 2012 GERD (gastroesophageal reflux disease) 2 documented as of this encounter (statuses as of 07/23/2024) Resolved Problems Problem Noted Date Diagnosed Date Resolved Date Coronary artery disease of n ative artery of [place] heart with stable angina pectoris 08/21/2023 08/21/2023 Dehydration 02/01/2021 03/29/2022 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 Atherosclerosis of coronary artery without angina pectoris 09/14/2018 03/29/2022 ST elevation myocardial infarction (STEMI) 03/20/2017 12/06/2018 Lung nodule 10/14/2015 03/29/2022 ST elevation myocardial infa rction (STEMI) involving other coronary artery 05/19/2015 03/20/[address] elevation [place] (STEMI) 01/12/201508/26 Myocardial infarction 02/03/20142017 COPD, moderate 08/27/2013 08/06/2020 Overview: Per COPD GOLD Classification Noncompliance 03/13/2013 03/21/2017 Anemia 05/03/2012 03/29/2022 COPD, severity to be determined 04/16/2012 08/27/2013 Dyslipidemia, goal LDL below 70 04/16/2012 03/29/2022 documented as of this encounter (statuses as of 07/23/2024) Immunizations Name Administration Dates Next Due COVID-19 mRNA, LNP-s, No Pre serve, 2-Dose Series (Everpurse) 08/28/2021,02/18/2021,01/28/2021 Pneumococcal Conjugate Vacc, 13 Valent (Prevnar) [...] 9:00 AM EDT Pharmacy Pharmacy Hematology Oncology [place] [address] [place] [address] [facility] [place] [place] [address] 07/24/2024 11:00 AM EDT Hem/Onc Treatment Hematology/Oncology Treatment, [place] [address] [place] [address] Tresa, Chair 9 Hem Onc [place] [facility] [phone] 08/06/2024 12:00 PM EST Laboratory Laboratory, [place] [address] [place] [address] [facility] [address] [place] [address] 08/07/2024 9:30 AM EST Office Visit Hematology/Oncology [facility] [place] [address] [place] [phone] Luann De La Cruz MD [address] [place] [address] 08/07/2024 10:00 AM EST Hem/Onc Treatment Hematology/Oncology Treatment, [place] [address] [place] [phone] Tresa, Chair 8 Hem Onc [place] [address] [place] [address] 09/05/2024 1:15 PM EST Imaging [facility] [address] [place] [address] 09/11/2024 1:30 PM EST Office Visit Vascular Surgery, [facility] [address] [place] [address] Darrin Lowe MD [address] [place] [address] Pending Results Name Type Priority Associated Diagnoses [...] 01/12/2024, 07/12/2017 (Declined) CKD HGB USE SMARTSET 79099 07/09/202507/09, 07/09/2024, 06/25/2024, Additional history exists CKD PHOS USE SMARTSET 88693 07/09/202506/25, 02/13/2023, 02/11/2021 O2 ASSESSMENT COMPLETED IN [...] (HCC) documented in this encounter Care Teams Cider Maker Relationship Specialty Start Date End Date Savanah Geiger DO [address] [place] [address] PCP - General Family Medicine 04/11/12 documented as of this encounter
--- OUTSIDE RECORDS SUMMARY | 2024-09-04 22:28 | External Medical Summary ---
Author Name Unknown Address Unknown Organization [id number]:[facility] [place] [address] [place] [address] Laboratory Report Ordering Provider Test Date Status MORIAH JOSHUA 07/23/2024 10:31:28 Final Normal: <30 mg/g creatinine< br/>High: 30-300 mg/g creatinine
Very High: >300 mg/g creatinine
Nephrotic: >2200 mg/g creatinine Observation Date Value Abnormality Reference (Units ) Status Albumin, Urine 07/23/2024 10:31:28 2.00 (mg/dL) Final Creatinine, Urine 07/23/2024 10:31:28 122 (mg/dL) Final Albumin/Creatinine [Mass Ratio] in Urine 07/23/2024 10:31:28 16 <30 (mg/g Creat) Final Performing Location [facility] [place] [address] [place] [address]
--- OUTSIDE RECORDS SUMMARY | 2024-09-04 22:28 | External Medical Summary ---
Author Name Unknown Address Unknown Organization [id number]:[facility] [place] [address] [facility] Sourav [place] [address] Laboratory Report Ordering Provider Test Date Status MARY ANNE LAGUNA 07/23/2024 10:31:28 Final Mantel Cell Lymphoma - [...] SYNC LEUKOCYTES IN BLOOD BY AUTOMATED COUNT 07/23/2024 10:31:28 7.82 4.00-10.80 (K/uL) Final Segs 07/23/2024 10:31:28 77.9 Above high normal 40.0-75.0 (%) Final Lymphs % 07/23/2024 10:31:28 10.5 Below low normal 18.0-42.0 (%) Final Monos 07/23/2024 10:31:28 4.5 1.0-11.0 (%) Final Eosinophils 07/23/2024 10:31:28 4.3 0.0-6.0 (%) Final Basos 07/23/2024 10:31:28 0.5 0.0-2.0 (%) Final Immature Granulocyte, Percent 07/23/2024 10:31:28 2.3 Above high normal 0.0-2.0 (%) Final Absolute Segs 07/23/2024 10:31:28 6.09 1.80-7.70 (K/uL) Final Lymphs, absolute 07/23/2024 10:31:28 0.82 Below low normal 1.00-4.80 (K/ul) Final Monos, Abs 07/23/2024 10:31:28 0.35 0.00-1.10 (K/uL) Final Eos, Abs 07/23/2024 10:31:28 0.34 0.00-0.70 (K/uL) Final Basos, Abs 07/23/2024 10:31:28 0.04 0.00-0.20 (K/uL) Final Immature Granulocytes, Number 07/23/2024 10:31:28 0.18 0.00-0.20 (K/uL) Final Performing Location [facility] [place] [facility] [address] [facility] [address]
--- OUTSIDE RECORDS SUMMARY | 2024-09-04 22:28 | External Medical Summary | Summary of Care ---
Author Name Unknown Organization [facility] Address [address] [place] [address] Phone [phone] Care Team Providers Care Cosmetic Surgeon Name Role Phone Griffinreed Savanah Oswaldo JIMÉNEZ Primary Care Provider Encounter Details Date Type Department Care Team (Late st Contact Info) Description 07/21/2024 Orders Only Hematology/Oncology, [address] [phone] Luann De La Cruz MD [address] [place], [place] [phone] Allergies Active Allergy Reactions Criticality Noted Date Comments Calcium Carb-Cholecalciferol 016 documented as of this encounter (statuses as of 07/21/2024) Medications Medication Sig Dispensed Refills Start Date [...] Sublingual Tablet Sublingual (Nitrostat)Indicat ions:Atheroscleros is of [place] coronary artery of [place] heart without angina pectoris One tablet under [...] as of this encounter (statuses as of 07/21/2024) Active Problems Problem Noted Date Diagnosed Date [...] cancer 04/24/2020 Coronary artery disease invo lving [place] heart without angina pectoris 05/22/2019 Old myocardial infarct 12/06/2018 S/p bare metal coronary artery stent 01/12/2015 Tobacco use disorder 04/16/2012 HTN, goal below 130/80 2012 GERD (gastroesophageal reflux disease) 2 documented as of this encounter (statuses as of 07/21/2024) Resolved Problems Problem Noted Date Diagnosed Date Resolved Date Coronary artery disease of n ative artery of [place] heart with stable angina pectoris 08/21/2023 08/21/2023 [...] as of this encounter (statuses as of 07/21/2024) Immunizations Name Administration Dates Next Due COVID-19 [...] Description 07/23/2024 12:00 PM EDT Laboratory Laboratory, [place] [address] [place] [address] [place] [address] [place] [address] 07/24/2024 9:00 AM EDT Pharmacy Pharmacy Hematology Oncology [facility] [address] [place] [address] [facility] [place] [place] [facility] Hem/Onc [address] [place] [address] 07/24/2024 11:00 AM EDT Hem/Onc Treatment Hematology/Oncology Treatment, [place] [address] [facility] [phone] Tresa, Chair 9 Hem Onc [facility] [address] [facility] [address] 08/06/2024 12:00 PM EST Laboratory Laboratory, [place] [address] [place] [phone] [place], Laboratory [address] [place] [address] 08/07/2024 9:30 AM EST Office Visit Hematology/Oncology [facility] [place] [address] [facility] [phone] Luann De La Cruz MD [address] [place] [address] 08/07/2024 10:00 AM EST Hem/Onc Treatment Hematology/Oncology Treatment, [place] [address] [facility] [phone] Tresa, Chair [address] [place] [address] 09/05/2024 1:15 PM EST Imaging Radiology [facility] [address] [facility] [address] [place] [address] 09/11/2024 1:30 PM EST Office Visit Vascular Surgery, [facility] [address] [place] [address] Darrin Lowe MD [address] [place] [address] Scheduled Procedures Name Priority Associated [...] 01/12/2024, 07/12/2017 (Declined) CKD HGB USE SMARTSET 39051 07/09/202507/09, 07/09/2024, 06/25/2024, Additional history exists CKD PHOS USE SMARTSET 00585 07/09/202506/25, 02/13/2023, 02/11/2021 O2 ASSESSMENT COMPLETED IN [...] filedocumented as of this encounter Care Teams Cosmetic Surgeon Relationship Specialty Start Date End Date Savanah Geiger DO [address] [place] [address] PCP - General Family Medicine 04/11/12 documented as of this encounter
--- OUTSIDE RECORDS SUMMARY | 2024-09-04 22:28 | External Medical Summary | Summary of Care ---
Author Name Unknown Organization [facility] Address [address] [place] [address] Phone [phone] Care Team Providers Care Manager Of Financial Name Role Phone Griffinreed Savanah Oswaldo JIMÉNEZ Primary Care Provider Encounter Details Date Type Department Care Team (Late st Contact Info) Description 07/22/2024 Orders Only Hematology/Oncology, [address] [phone] Luann De La Cruz MD [address] [place], [place] [phone] Allergies Active Allergy Reactions Criticality Noted Date Comments Calcium Carb-Cholecalciferol 016 documented as of this encounter (statuses as of 07/22/2024) Medications Medication Sig Dispensed Refills Start Date [...] Sublingual Tablet Sublingual (Nitrostat)Indicat ions:Atheroscleros is of [place] coronary artery of [place] [...] as of this encounter (statuses as of 07/22/2024) Active Problems Problem Noted Date Diagnosed Date [...] cancer 04/24/2020 Coronary artery disease invo lving [place] heart without angina pectoris 05/22/2019 Old myocardial infarct 12/06/2018 S/p bare metal coronary artery stent 01/12/2015 Tobacco use disorder 04/16/2012 HTN, goal below 130/80 2012 GERD (gastroesophageal reflux disease) 2 documented as of this encounter (statuses as of 07/22/2024) Resolved Problems Problem Noted Date Diagnosed Date Resolved Date Coronary artery disease of n ative artery of [place] heart with stable angina pectoris 08/21/2023 08/21/2023 Dehydration 02/01/2021 03/29/2022 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 Atherosclerosis of coronary artery without angina pectoris 09/14/2018 03/29/2022 ST elevation myocardial infarction (STEMI) 03/20/2017 12/06/2018 Lung nodule 10/14/2015 03/29/2022 ST elevation myocardial infa rction (STEMI) involving other coronary artery 05/19/2015 03/20/[address] elevation [place] (STEMI) 01/12/201508/26 Myocardial infarction 02/03/20142017 COPD, moderate 08/27/2013 08/06/2020 Overview: Per COPD GOLD Classification Noncompliance 03/13/2013 03/21/2017 Anemia 05/03/2012 03/29/2022 COPD, severity to be determined 04/16/2012 08/27/2013 Dyslipidemia, goal LDL below 70 04/16/2012 03/29/2022 documented as of this encounter (statuses as of 07/22/2024) Immunizations Name Administration Dates Next Due COVID-19 [...] Description 07/23/2024 12:00 PM EDT Laboratory Laboratory, [place] [address] [place] [address] [place] [address] [place] [address] 07/24/2024 9:00 AM EDT Pharmacy Pharmacy Hematology Oncology [facility] [address] [place] [address] [facility] [place] [facility] [place] [facility] [place] [address] [place] [address] 07/24/2024 11:00 AM EDT Hem/Onc Treatment Hematology/Oncology Treatment, [place] [address] [facility] [phone] Tresa, Chair 9 Hem Onc [facility] [address] [place] [address] 08/06/2024 12:00 PM EST Laboratory Laboratory, [place] [address] [place] [phone] [place], Laboratory [address] [place] [address] 08/07/2024 9:30 AM EST Office Visit Hematology/Oncology [facility] [place] [address] [place] [phone] Luann De La Cruz MD [address] [place] [address] 08/07/2024 10:00 AM EST Hem/Onc Treatment Hematology/Oncology Treatment, [place] 200 [facility] [phone] Tresa, Chair [address] Hem On[address] [place] [address] 09/05/2024 1:15 PM EST Imaging Radiology [facility] [address] [facility] [address] [place] [address] 09/11/2024 1:30 PM EST Office Visit Vascular Surgery, [facility] [address] [place] [address] Darrin Lowe MD [address] [place] [address] Scheduled Procedures Name Priority Associated [...] 01/12/2024, 07/12/2017 (Declined) CKD HGB USE SMARTSET 00758 07/09/202507/09, 07/09/2024, 06/25/2024, Additional history exists CKD PHOS USE SMARTSET 89334 07/09/202506/25, 02/13/2023, 02/11/2021 O2 ASSESSMENT COMPLETED IN [...] filedocumented as of this encounter Care Teams Manager Of Financial Relationship Specialty Start Date End Date Savanah Geiger DO [address] [place] [address] PCP - General Family Medicine 04/11/12 documented as of this encounter
--- OUTSIDE RECORDS SUMMARY | 2024-09-04 22:28 | External Medical Summary | Summary of Care ---
Author Name Unknown Organization [facility] Address [address] [place] [address] Phone [phone] Care Team Providers Care Safety Inspector Name Role Phone CaseySavanah harry Oswaldo JIMÉNEZ Primary Care Provider Reason for Visit * Reason Onset Date Comments Test Results Imaging Study 07/10/2024 Encounter Details Date Type Department Care Team (Late st Contact Info) Description 07/10/2024 Telephone Hematology/Oncology [facility] [place] 200 [facility] [place] [phone] Luann De La Cruz MD 200 [facility] [place] [address] Test Results Imaging Study Allergies Active Allergy Reactions Criticality Noted Date Comments Calcium Carb-Cholecalciferol 016 documented as of this encounter (statuses as of 07/10/2024) Medications Medication Sig Dispensed Refills Start Date [...] Sublingual Tablet Sublingual (Nitrostat)Indicat ions:Atheroscleros is of [place] coronary artery of [place] heart without angina pectoris One tablet under [...] as of this encounter (statuses as of 07/10/2024) Active Problems Problem Noted Date Diagnosed Date [...] cancer 04/24/2020 Coronary artery disease invo lving [place] heart without angina pectoris 05/22/2019 Old myocardial infarct 12/06/2018 S/p bare metal coronary artery stent 01/12/2015 Tobacco use disorder 04/16/2012 HTN, goal below 130/80 2012 GERD (gastroesophageal reflux disease) 2 documented as of this encounter (statuses as of 07/10/2024) Resolved Problems Problem Noted Date Diagnosed Date Resolved Date Coronary artery disease of n ative artery of [place] heart with stable angina pectoris 08/21/2023 08/21/2023 [...] as of this encounter (statuses as of 07/10/2024) Immunizations Name Administration Dates Next Due COVID-19 mRNA, LNP-s, No Pre serve, 2-Dose Series (Nexercise) 08/28/2021,02/18/2021,01/28/2021 Pneumococcal Conjugate Vacc, 13 Valent (Prevnar) [...] encounter Miscellaneous Notes * Telephone Encounter - Mathew Lind RN - 07/10/2024 4:12 PM EDT Pt calcium 7.6 on recent lab work. Tried calling patient to advise increasing calcium rich foods in his diet. No answer, LMOM with return #. MTM- fyi. documented in this encounter Plan of Treatment Upcoming Encounters Date Type Department Care Team (Late st Contact Info) Description 07/23/2024 12:00 PM EDT Laboratory Laboratory, [place] [address] [place] [phone] [place], Laboratory [address] [place] [address] 07/24/2024 9:00 AM EDT Pharmacy Pharmacy Hematology Oncology [facility] [address] [place] [address] [facility] [place] Hem/Onc [address] [place] [address] 07/24/2024 11:00 AM EDT Hem/Onc Treatment Hematology/Oncology Treatment, [place] [address] [place] [phone] Tresa, Chair 9 Hem Onc Scen[address] 200 [facility] [place] [address] 08/06/2024 12:00 PM EST Laboratory Laboratory, [address] [phone] [address] 08/07/2024 9:30 AM EST Office Visit Hematology/Oncology [facility] Tresa [place] [address] [place] [phone] Luann De La Cruz MD [address] [place] [address] 08/07/2024 10:00 AM EST Hem/Onc Treatment Hematology/Oncology Treatment, [place] [address] [place] [phone] Tresa, Chair 8 Hem Onc [address] [place] [address] 09/05/2024 1:15 PM EST Imaging Radiology [facility] 1st [facility] 132 [facility] [place] [address] 09/11/2024 1:30 PM EST Office Visit Vascular Surgery, [facility] 132 [place] [address] Darrin Lowe MD [address] [facility] [address] Scheduled Procedures Name Priority Associated Diagnoses [...] 01/12/2024, 07/12/2017 (Declined) CKD HGB USE SMARTSET 72965 07/09/202507/09, 07/09/2024, 06/25/2024, Additional history exists CKD PHOS USE SMARTSET 35408 07/09/202506/25, 02/13/2023, 02/11/2021 O2 ASSESSMENT COMPLETED IN [...] filedocumented as of this encounter Care Teams Safety Inspector Relationship Specialty Start Date End Date Savanah Geiger DO [address] [place] [address] PCP - General Family Medicine 04/11/12 documented as of this encounter
--- OUTSIDE RECORDS SUMMARY | 2024-09-04 22:29 | External Medical Summary | Summary of Care ---
Author Name Unknown Organization [facility] Address [address] [place] [address] Phone [phone] Care Team Providers Care Marketing Professional Name Role Phone Griffinreed Savanah Oswaldo JIMÉNEZ Primary Care Provider [phone] Reason for Visit * Reason Onset Date Comments FYI 07/05/2024 Lenalidomide upd ate Encounter Details Date Type Department Care Team (Late st Contact Info) Description 07/05/2024 Telephone Hematology/Oncology [facility] Tresa [place] [address] [place] [phone] Luann De La Cruz MD [address] [place] [address] FYI (Lenalidomide update) Allergies Active Allergy Reactions Criticality Noted Date [...] Sublingual Tablet Sublingual (Nitrostat)Indicat ions:Atheroscleros is of [place] coronary artery of [place] heart without angina pectoris One tablet under [...] the tablet. 90 Tablet 1 06/28/2024 Active documented as of this encounter (statuses [...] cancer 04/24/2020 Coronary artery disease invo lving [place] heart without angina pectoris 05/22/2019 Old myocardial infarct 12/06/2018 S/p bare metal coronary artery stent 01/12/2015 Tobacco use disorder 04/16/2012 HTN, goal below 130/80 2012 GERD (gastroesophageal reflux disease) 2 documented as of this encounter (statuses as of 07/10/2024) Resolved Problems Problem Noted Date Diagnosed Date Resolved Date Coronary artery disease of n ative artery of [place] heart with stable angina pectoris 08/21/2023 08/21/2023 Dehydration 02/01/2021 03/29/2022 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 Atherosclerosis of coronary artery without angina pectoris 09/14/2018 03/29/2022 ST elevation myocardial infarction (STEMI) 03/20/2017 12/06/2018 Lung nodule 10/14/2015 03/29/2022 ST elevation myocardial infa rction (STEMI) involving other coronary artery 05/19/2015 03/20/[address] elevation [place] (STEMI) 01/12/201508/26 Myocardial infarction 02/03/20142017 COPD, moderate 08/27/2013 08/06/2020 Overview: Per COPD GOLD Classification Noncompliance 03/13/2013 03/21/2017 Anemia 05/03/2012 03/29/2022 COPD, severity to be determined 04/16/2012 08/27/2013 Dyslipidemia, goal LDL below 70 04/16/2012 03/29/2022 documented as of this encounter (statuses as of 07/10/2024) Immunizations Name Administration Dates Next Due COVID-19 mRNA, LNP-s, No Pre serve, 2-Dose Series ([email or web address]) 08/28/2021,02/18/2021,01/28/2021 Pneumococcal Conjugate Vacc, 13 Valent (Prevnar) [...] Encounter - Fernanda Hernandez PHARM Tech - 07/10/2024 3:49 PM EDT Update: per [employer], [employer] dispensed Revlimid on 07/09/2024. Next refill has been scheduled for 07/19/2024 - 21 day cycle. SANJAY Shipley Business Systems Architect Hematology Oncology Oral Chemotherapy Clinic Medication Therapy Disease Management [facility] 07/10/24,3:51 PM Time Spent on Encounter: < 5 minutes * Telephone Encounter - Joanna Lezama CPhT - 07/05/2024 2:59 PM EDT Lenalidomide update: Per [facility] Specialty portal, Insurance verification in process. Spoke to [facility] Specialty sales representative door to door Pedro Pablo who advised claim was flagged and patient was unable to fill at [facility] due to filling Lenalidomide elsewhere. Advised patient had been holding therapy since end of 2022 and to be restarting. Employee Benefits Insurance Agent was able to clear flag and reprocess claim with $3.15 copay. Left message with patient advising Lenalidomide is ready to schedule for delivery Will follow up for dispense updates Joanna Lezama Business Systems Architect III Hematology Oncology Oral Chemotherapy Clinic Medication Therapy Disease Management [facility] 07/05/2024 3:11 PM Time Spent on Encounter: 11 - 15 minutes documented in this encounter Plan of Treatment Upcoming Encounters Date Type Department Care Team (Late st Contact Info) Description 07/23/2024 12:00 PM EDT Laboratory Laboratory, [address] [place] [phone] [facility] [address] [place] [address] [place] [address] 07/24/2024 11:00 AM EDT Hem/Onc Treatment Hematology/Oncology Treatment, [place] 200 [facility] [place]a [place] [phone] Tresa, Chair [address] Hem [address] [place] [address] 08/06/2024 12:00 PM EST Laboratory Laboratory, [place] [address] [place] [address] [place] [phone] [facility] [address] [place] [address] 08/07/2024 9:30 AM EST Office Visit Hematology/Oncology [facility] Tresa [place] 200 [facility] [place] [phone] Luann De La Cruz MD 200 [facility] [place] [address] 08/07/2024 10:00 AM EST Hem/Onc Treatment Hematology/Oncology Treatment, [place] [address] [place] [address] Tresa, Chair 8 Hem Onc Scenery [address] [place] [address] 09/05/2024 1:15 PM EST [facility] [address] [facility] [place] [address] 09/11/2024 1:30 PM EST Office Visit Vascular Surgery, [facility] [address] [facility] [place] [address] Darrin Lowe MD [address] [place], [place] [phone] Scheduled Procedures Name Priority Associated Diagnoses Date/Ti [...] 01/12/2024, 07/12/2017 (Declined) CKD HGB USE SMARTSET 73314 07/09/202507/09, 07/09/2024, 06/25/2024, Additional history exists CKD PHOS USE SMARTSET 34811 07/09/202506/25, 02/13/2023, 02/11/2021 O2 ASSESSMENT COMPLETED IN [...] Primary documented in this encounter Care Teams Marketing Professional Relationship Specialty Start Date End Date Savanah Geiger DO [address] [place] [address] PCP - General Family Medicine 04/11/12 documented as of this encounter
--- OUTSIDE RECORDS SUMMARY | 2024-09-04 22:29 | External Medical Summary | Summary of Care ---
Author Name Unknown Organization [facility] Address [address] [place] [address] Phone [phone] Care Team Providers Care Pool Cleaner Name Role Phone Owen Baires DO Primary Care Provider Reason for Visit * Reason Onset Date Comments Medication Refill 06/27/2024 Encounter Details Date Type Department Care Team (Late st Contact Info) Description 06/27/2024 Refill [facility] [address] [place] [address] Owen Baires DO [address] [place] [address] Encounter for long-term (current) use of medications*; Chronic kidney disease, stage 3a (HCC) Allergies [...] Sublingual Tablet Sublingual (Nitrostat)Indica tions:Atheroscler osis of [place] coronary artery of [place] heart without angina pectoris One tablet under [...] 06/18/2024 Active Lenalidomide 10 MG Oral Capsule (Revlimid)Indicat ions:Multiple myeloma not having achieved remission (HCC) Take 1 Capsule by mouth in the morning. For 14 days on, 7 days off of a 21 day cycle. Take medication same time every day and consistently with or without food.. 14 Capsule 06/24/2024 Active Mirtazapine 15 MG Oral Tablet (Remeron)Indicati [...] the morning. 90 Tablet 1 07/10/2024 Active Pantoprazole Sodium 20 MG Oral Tablet Delayed Release (Protonix) Take 1 Tablet by mouth in the morning. 30 minutes before the first meal of the day. Do not crush, split or chew the tablet. 90 Tablet 3 08/28/2023 Discontinue d(Refill) documented as of this encounter [...] cancer 04/24/2020 Coronary artery disease invo lving [place] heart without angina pectoris 05/22/2019 Old myocardial infarct 12/06/2018 S/p bare metal coronary artery stent 01/12/2015 Tobacco use disorder 04/16/2012 HTN, goal below 130/80 2012 GERD (gastroesophageal reflux disease) 2 documented as of this encounter (statuses as of 07/10/2024) Resolved Problems Problem Noted Date Diagnosed Date Resolved Date Coronary artery disease of n ative artery of [place] heart with stable angina pectoris 08/21/2023 08/21/2023 [...] mRNA, LNP-s, No Pre serve, 2-Dose Series ([email or web address]) 08/28/2021,02/18/2021,01/28/2021 Pneumococcal Conjugate Vacc, 13 Valent (Prevnar) [...] encounter Miscellaneous Notes * Telephone Encounter - Hanny Hudson PHARM Tech - 07/10/2024 2:53 PM EDT Patient is calling back. Transferred to pharmacist. Hanny Mixon Byproduct Engineer II [facility] 07/10/2024 2:54 PM * Telephone Encounter - Josiane Major RP - 07/10/2024 2:47 PM EDT Tried to call patient about B12; LMOVM. If patient calls back please transfer to myself, if I am not available please select next [facility]. Advise and delinquency counselor on B12 start Thank you, Josiane Major, PharmD, ALLYN Clinical Pharmacist [facility] ([facility]) 07/10/24 2:47 PM * Telephone Encounter - Owen Baires DO - 07/10/2024 1:44 PM EDTSigned Prescriptions: Disp Refills Pantoprazole Sodium 20 MG Oral Tablet Marla*90 Tab*1 Sig: Take 1 Tablet by mouth in the morning. 30 minutes before the first meal of the day. Do not crush, split or chew the tablet.Authorizing Provider: OWEN BAIRES User: JOSIANE MAJOR Cyanocobalamin 1000 MCG Oral Tablet (Cyano*90 Tab*1 Sig: Take 1 Tablet by mouth in the morning .Authorizing Provider: OWEN BAIRES * Addendum Note - Josiane Major RPh - 07/10/2024 10:12 AM EDTAddended by: JOSIANE MAJOR on: 07/10/2024 10:12 AM Modules accepted: Orders * Telephone Encounter - Josiane Major RPh - 07/10/2024 10:10 AM EDT VITAMIN B12 - [facility] Date Value Ref Range Status 07/09/2024 213 (L) 232 - 1,245 pg/mL Final 12/25/2018 247 232 - 1,245 pg/mL Final Patient's vitamin B12 level came back low. This could be associated with long- term PPI use. I recommend starting this patient on a B12 supplement. RX is pended for vitamin b 12 (CYANOCOBALAMIN) 1000 MCG TABS 1 tablet daily. I also ordered repeat B12 lab for patient to recheck in 3 months. Please approve pended RX if appropriate. Route back to me if approved so I can notify patient to advise of new supplement. Thank you, Josiane Major PharmD, ALLYN Clinical Pharmacist [facility] ([facility]) 07/10/24 10:10 AM [phone] * Telephone Encounter - Josiane Major RPh - 06/28/2024 4:06 PM EDT Signed Prescriptions: Disp Refills Pantoprazole Sodium 20 MG Oral Tablet Marla*90 Tab*1 Sig: Take 1 Tablet by mouth in the morning. 30 minutes before the first meal of the day. Do not crush, split or chew the tablet.Authorizing Provider: OWEN BAIRES User: JOSIANE MAJOR--------- * Telephone Encounter - Josiane Major RPh - 06/28/2024 4:04 PM EDT Per refill protocol patient needs vitamin B-12 lab on file within the past 2 years while using PPIs. Lab work ordered. Patient may obtain with next routine labs. Thank you, Josiane Major PharmD, ALLYN Clinical Pharmacist [facility] ([facility]) 06/28/24 4:05 PM [phone] documented in this encounter Plan of Treatment Upcoming Encounters Date Type Department Care Team (Late st Contact Info) Description 07/23/2024 12:00 PM EDT [facility] [place] [address] [facility] [phone] [place], Laboratory [address] [place] [facility] [place] [address] 07/24/2024 11:00 AM EDT Hem/Onc Treatment Hematology/Oncology Treatment, [place] [facility] [phone] Tresa, Chair 9 Hem Onc Scenery 200 [place] [address] 08/06/2024 12:00 PM EST Laboratory Laboratory, [place] [address] [facility] [phone] [place], Laboratory [address] [place] [facility] [place] [address] 08/07/2024 9:30 AM EST Office Visit Hematology/Oncology [facility] [place] [address] [place] [phone] Luann De La Cruz MD [address] [place] [address] 08/07/2024 10:00 AM EST Hem/Onc Treatment Hematology/Oncology Treatment, [place] [facility] [phone] Tresa, Chair 8 Hem Onc [address] [place] [address] 09/05/2024 1:15 PM EST Imaging Radiology [address], [place] [address] [facility] [place] [address] 09/11/2024 1:30 PM EST Office Visit Vascular Surgery, [facility] [address] [place] [address] Darrin Lowe MD [address] [place] [address] Scheduled Orders Name Type Priority Associated Diagnoses Orde r Schedule ALBUMIN / CREATININE RATIO, URINE Lab Routine Encounter for long-term (current) use of medications Chronic kidney disease, stage 3a (HCC) Expected: 07/12/2024 (Approximate), Expires: 06/28/2025 VITAMIN B12 Lab Routine Encounter for long-term (current) use of medications Expected: 10/10/2024 (Approximate), Expires: 07/10/2025 Scheduled Procedures Name Priority Associated Diagnoses Date/Ti [...] 01/12/2024, 07/12/2017 (Declined) CKD HGB USE SMARTSET 62511 07/09/202507/09, 07/09/2024, 06/25/2024, Additional history exists CKD PHOS USE SMARTSET 22481 07/09/202506/25, 02/13/2023, 02/11/2021 O2 ASSESSMENT COMPLETED IN [...] Not on filedocumented as of this encounter Results * PHOSPHORUS (07/09/2024 11:20 AM EDT) Pathologist [facility] Phosphorus 2.5 2.5 - 4.8 mg/dL 07/09/2024 11:07 PM EDT LABORATORY [facility] Blood Venous blood specimen / Unknown Venipuncture / Unknown 07/09/2024 11:20 AM EDT 07/09/2024 11:20 AM EDT Josiane Major [facility] LAB BLOOD ORDE DEVAN Performing Organization Address City/[facility]/ZIP Co de Phone Number LABORATORY [facility] [address] [place] [address] * (ABNORMAL) VITAMIN B12 (07/09/2024 11:20 AM EDT) [facility] Vitamin B12 213(L) 232 - 1,245 pg/mL 07/09/2024 11:29 PM EDT LABORATORY [facility] Blood Venipuncture / Unknown 07/09/2024 11:20 AM EDT 07/09/2024 11:20 AM EDT Josiane Major [facility] LAB BLOOD ORDE VIOLETAMARCE Performing Organization Address City/[facility]/ZIP Co de Phone Number LABORATORY [facility] [address] [place] [address] documented in this encounter Visit Diagnoses Diagnosis Encounter for long-term (current) use of medications- Primary Encounter for long-term (current) use of other medications Chronic kidney disease, stage 3a (HCC) documented in this encounter Care Teams Pool Cleaner Relationship Specialty Start Date End Date Owen Baires DO [address] [place] [address] PCP - General Family Medicine 04/11/12 documented as of this encounter
--- OUTSIDE RECORDS SUMMARY | 2024-09-04 22:29 | External Medical Summary ---
Author Name Unknown Address Unknown Organization K01:LABORATORY [facility] - [address] [facility] [place] [address] Laboratory Report Ordering Provider Test Date Status MARY ANNE [place] 07/09/2024 11:20:54 Final Observation Date Value Abnormality Reference (Units ) Status SYNC LEUKOCYTES IN BLOOD BY AUTOMATED COUNT 07/09/2024 11:20:54 9.72 4.00-10.80 (K/uL) Final Segs 07/09/2024 11:20:54 76.2 Above high normal 40.0-75.0 (%) Final Lymphs % 07/09/2024 11:20:54 8.4 Below low normal 18.0-42.0 (%) Final Monos 07/09/2024 11:20:54 12.3 Above high normal 1.0-11.0 (%) Final Eosinophils 07/09/2024 11:20:54 2.2 0.0-6.0 (%) Final Basos 07/09/2024 11:20:54 0.2 0.0-2.0 (%) Final Immature Granulocyte, Percent 07/09/2024 11:20:54 0.7 0.0-2.0 (%) Final Absolute Segs 07/09/2024 11:20:54 7.40 1.80-7.70 (K/uL) Final Lymphs, absolute 07/09/2024 11:20:54 0.82 Below low normal 1.00-4.80 (K/ul) Final Monos, Abs 07/09/2024 11:20:54 1.20 Above high normal 0.00-1.10 (K/uL) Final Eos, Abs 07/09/2024 11:20:54 0.21 0.00-0.70 (K/uL) Final Basos, Abs 07/09/2024 11:20:54 0.02 0.00-0.20 (K/uL) Final Immature Granulocytes, Number 07/09/2024 11:20:54 0.07 0.00-0.20 (K/uL) Final Performing Location LABORATORY [facility] - [facility] [address]. [facility] [address]
--- OUTSIDE RECORDS SUMMARY | 2024-09-04 22:29 | External Medical Summary | Summary of Care ---
Author Name Unknown Organization [facility] Address [address] [place] [address] Phone [phone] Care Team Providers Care Combiner Operator Name Role Phone Griffinreed Savanah Oswaldo JIMÉNEZ Primary Care Provider Reason for Visit * Reason Onset Date Comments FYI 07/05/2024 Lenalidomide upd ate Encounter Details Date Type Department Care Team (Late st Contact Info) Description 07/05/2024 Telephone Hematology/Oncology [facility] Tresa [place] [address] [place] [phone] Luann De La Cruz MD [address] [place] [address] FYI (Lenalidomide update) Allergies Active Allergy Reactions [...] Sublingual Tablet Sublingual (Nitrostat)Indicat ions:Atheroscleros is of [place] coronary artery of [place] heart without angina pectoris One tablet under [...] cancer 04/24/2020 Coronary artery disease invo lving [place] heart without angina pectoris 05/22/2019 Old myocardial infarct 12/06/2018 S/p bare metal coronary artery stent 01/12/2015 Tobacco use disorder 04/16/2012 HTN, goal below 130/80 2012 GERD (gastroesophageal reflux disease) 2 documented as of this encounter (statuses as of 07/10/2024) Resolved Problems Problem Noted Date Diagnosed Date Resolved Date Coronary artery disease of n ative artery of [place] heart with stable angina pectoris 08/21/2023 08/21/2023 Dehydration 02/01/2021 03/29/2022 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 Atherosclerosis of coronary artery without angina pectoris 09/14/2018 03/29/2022 ST elevation myocardial infarction (STEMI) 03/20/2017 12/06/2018 Lung nodule 10/14/2015 03/29/2022 ST elevation myocardial infa rction (STEMI) involving other coronary artery 05/19/2015 03/20/[address] elevation [place] (STEMI) 01/12/201508/26 Myocardial infarction 02/03/20142017 COPD, moderate 08/27/2013 08/06/2020 Overview: Per COPD GOLD Classification Noncompliance 03/13/2013 03/21/2017 Anemia 05/03/2012 03/29/2022 COPD, severity to be determined 04/16/2012 08/27/2013 Dyslipidemia, goal LDL below 70 04/16/2012 03/29/2022 documented as of this encounter (statuses as of 07/10/2024) Immunizations Name Administration Dates Next Due COVID-19 mRNA, LNP-s, No Pre serve, 2-Dose Series ([employer]) 08/28/2021,02/18/2021,01/28/2021 Pneumococcal Conjugate Vacc, 13 Valent (Prevnar) [...] - 07/10/2024 3:49 PM EDT Update: per [employer], [employer] dispensed Revlimid on 07/09/2024. Next refill has been scheduled for 07/23/2024 - 21 day cycle. SANJAY Shipley Percussion Teacher Hematology Oncology Oral Chemotherapy Clinic Medication Therapy Disease Management [facility] 07/10/24,3:51 PM Time Spent on Encounter: < 5 minutes * Telephone Encounter - Joanna Lezama CPhT - 07/05/2024 2:59 PM EDT Lenalidomide update: Per [facility] Specialty portal, Insurance verification in process. Spoke to [facility] Specialty physician relations representative Pedro Pablo who advised claim was flagged and patient was unable to fill at [facility] due to filling Lenalidomide elsewhere. Advised patient had been holding therapy since end of 2022 and to be restarting. Phlebotomy Supervisor was able to clear flag and reprocess claim with $3.15 copay. Left message with patient advising Lenalidomide is ready to schedule for delivery Will follow up for dispense updates Joanna Lezama Percussion Teacher III Hematology Oncology Oral Chemotherapy Clinic Medication Therapy Disease Management [facility] 07/05/2024 3:11 PM Time Spent on Encounter: 11 - 15 minutes documented in this encounter Plan of Treatment Upcoming Encounters Date Type Department Care Team (Late st Contact Info) Description 07/23/2024 12:00 PM EDT Laboratory Laboratory, [address] [place] [phone] [facility] [address] [place] [address] [place] [address] 07/24/2024 11:00 AM EDT Hem/Onc Treatment Hematology/Oncology Treatment, [place] 200 [facility] [place] [place] [phone] Tresa, Chair 9 Hem On[address] [place] [address] 08/06/2024 12:00 PM EST Laboratory Laboratory, [place] [address] [place] [address] [place] [phone] [facility] [address] [facility] [address] 08/07/2024 9:30 AM EST Office Visit Hematology/Oncology [facility] Tresa [place] 200 [facility] [place] [phone] Luann De La Cruz MD 200 [facility] [place] [address] 08/07/2024 10:00 AM EST Hem/Onc Treatment Hematology/Oncology Treatment, [place] [address] [place] [address] Tresa, Chair 8 Hem Onc [address] [address] [place] [address] 09/05/2024 1:15 PM EST Imaging [facility] [address] [facility] [place] [address] 09/11/2024 1:30 PM EST Office Visit Vascular Surgery, [facility] 132 [facility] [place] [address] Darrin Lowe MD [address] [place], [place] [phone] Scheduled Procedures Name Priority Associated Diagnoses Date/Ti [...] 01/12/2024, 07/12/2017 (Declined) CKD HGB USE SMARTSET 23884 07/09/202507/09, 07/09/2024, 06/25/2024, Additional history exists CKD PHOS USE SMARTSET 12959 07/09/202506/25, 02/13/2023, 02/11/2021 O2 ASSESSMENT COMPLETED IN [...] Primary documented in this encounter Care Teams Combiner Operator Relationship Specialty Start Date End Date Savanah Geiger DO [address] [place] [address] PCP - General Family Medicine 04/11/12 documented as of this encounter
--- OUTSIDE RECORDS SUMMARY | 2024-09-04 22:29 | External Medical Summary ---
Author Name Unknown Address Unknown Organization K01:[facility] [place] [address] [facility] [place] [address] Laboratory Report Ordering Provider Test Date Status MARY ANNE LAGUNA 07/09/2024 11:20:54 Final Observation Date Value Abnormality Reference (Units ) Status BUN 07/09/2024 11:20:54 18 6-20 (mg/dL) Final Creatinine 07/09/2024 11:20:54 1.3 Above high normal 0.6-1.2 (mg/dL) Final Glomerular filtration rate/1.73 sq M.predicted [Volume Rate/Area] in Serum, Plasma or Blood by Creatinine-based formula (CKD-EPI) 07/09/2024 11:20:54 56 Below low normal >=60 (mL/min) Final eGFR is calculated based on the CKD-EPI 2020 equation. Sodium 07/09/2024 11:20:54 137 135-146 (m mol/L) Final Potassium 07/09/2024 11:20:54 3.7 3.5-5.1 (m mol/L) Final Cl 07/09/2024 11:20:54 104 98-107 (mm ol/L) Final CO2 07/09/2024 11:20:54 22 22-32 (mmo l/L) Final Anion gap 07/09/2024 11:20:54 11 7-15 (mmol /L) Final Glucose 07/09/2024 11:20:54 97 70-120 (mg /dL) Final Albumin 07/09/2024 11:20:54 3.7 Below low normal 3.8 -5.0 (g/dL) Final AST (Aspartate aminotransferase) 07/09/2024 11:20:54 15 10-50 (U/L) Fin al Alk Phos 07/09/2024 11:20:54 89 35-130 (U/ L) Final Bilirubin, Total 07/09/2024 11:20:54 0.6 <=1 .2 (mg/dL) Final Calcium 07/09/2024 11:20:54 7.6 Below low normal 8.4 -10.2 (mg/dL) Final Protein 07/09/2024 11:20:54 6.4 6.0-8.3 (g /dL) Final ALT (Alanine aminotransferase) 07/09/2024 11:20:54 13 10-50 (U/L) Andrzej caal Performing Location [facility] [place] [address] [facility] [address]
--- OUTSIDE RECORDS SUMMARY | 2024-09-04 22:29 | External Medical Summary | Summary of Care ---
Author Name Unknown Organization [facility] Address [address] [place] [address] Phone [phone] Care Team Providers Care Program Attendant Name Role Phone Savanah Geiger DO Primary Care Provider + [phone] Reason for Visit * Reason Comments Medication Management * Evaluate & Treat - Unlimited Visits (Within 10 days (routine)) - Authorized Specialty Diagnoses / Procedures Referred By Suki person Referred To Contact Pharmacist / Pharmacy Diagnoses Multiple myeloma not having achieved remission (HCC) Gwen Godfrey, [facility] [address] [place] [address] Referral ID Status Reason Start Date Expiration Date Visits Requested Visits Authorized [id number] Authorized Specialty Services Required 06/24/2024 99 99 Encounter Details Date Type Department Care Team (Late st Contact Info) Description 07/10/2024 9:00 AM EDT Pharmacy Pharmacy Hematology Oncology [facility] [address] [place] [address] [facility], [facility] Hem/Onc [address] [place] [address] Multiple myeloma, remission status unspecified (HCC)* Allergies [...] Sublingual Tablet Sublingual (Nitrostat)Indicat ions:Atheroscleros is of [place] coronary artery of [place] heart without angina pectoris One tablet under [...] cancer 04/24/2020 Coronary artery disease invo lving [place] heart without angina pectoris 05/22/2019 Old myocardial infarct 12/06/2018 S/p bare metal coronary artery stent 01/12/2015 Tobacco use disorder 04/16/2012 HTN, goal below 130/80 2012 GERD (gastroesophageal reflux disease) 2 documented as of this encounter (statuses as of 07/10/2024) Resolved Problems Problem Noted Date Diagnosed Date Resolved Date Coronary artery disease of n ative artery of [place] heart with stable angina pectoris 08/21/2023 08/21/2023 Dehydration 02/01/2021 03/29/2022 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 Atherosclerosis of coronary artery without angina pectoris 09/14/2018 03/29/2022 ST elevation myocardial infarction (STEMI) 03/20/2017 12/06/2018 Lung nodule 10/14/2015 03/29/2022 ST elevation myocardial infa rction (STEMI) involving other coronary artery 05/19/2015 03/20/[address] elevation [place] (STEMI) 01/12/201508/26 Myocardial infarction 02/03/20142017 COPD, moderate [...] this encounter Progress Notes * Gwen Godfrey, [facility] - 07/10/2024 12:42 PM EDT MEDICATION THERAPY MANAGEMENT LENALIDOMIDE TREATMENT PROGRESS NOTE Brian Salinas [phone] Patient Phone Numbers Communication: Spoke to: Patient Treatment: Medication: Lenalidomide (Revlimid) Indication/Staging/Diagnosis Code: multiple myeloma Dose: 10mg daily D1-14 every 21 days Administration: +/- food Start Date: 06/26/24 Primary Gun Fertilizer/Oncologist: Dr. De La Cruz Additional Therapy: Bortezomib [...] or procedures? No Assessment and Plan: Hgb declining Vitamin B12 low - PCP prescribed cyanocobalamin supplement which pt will start 07/11/24 Will monitor closely Creatinine improving Ca2+ low (corrected calcium 7.7) Advised pt to increase dietary Ca2+ Will monitor closely All other labs stable Advised pt to start C2 as above Repeat labs in 2 weeks Assessment of compliance: compliant Assessment of adverse effects attributed to drug therapy: N/A Dose adjustment needed based on lab or adverse drug reaction? No Follow up: 2 weeks Gwen Godfrey, PharmD, BCOP Clinical Pharmacist, [facility] Oral Chemotherapy [facility] 07/10/2024, 4:04 PM Monitoring Parameters: Estimated CrCl Serum creatinine: 1.3 mg/dL (H) 07/09/24 1120 Estimated creatinine clearance: 49.7 mL/min (A) Hepatitis [...] Pertinent labs: Latest Reference Range & Units 05/22/24 08:56 06/25/24 12:29 07/09/24 11:20 WBC 4.00 - 10.80 K/uL 7.46 8.38 9.72 RBC 4.50 - 5.25 M/uL 3.63 3.60 3.25 HGB 14.0 - 16.8 g/dL 11.1 (L) 11.3 (L) 10.2 (L) HCT 40.0 - 48.4 % 36.1 (L) 35.9 (L) 32.7 (L) MCV 82.0 - 99.5 fL 99.4 99.7 100.6 MCH 27.0 - 34.0 pg 30.6 31.4 31.4 MCHC 32.0 - 36.0 g/dL 30.7 31.5 31.2 RDW 11.5 - 15.5 % 15.5 15.1 15.5 PLT 140 - 400 K/uL 167 179 175 MPV 6.6 - 11.1 fL 10.3 11.4 12.1 CBC WITH WBC DIFFERENTIAL Rpt ! Rpt ! Rpt ! Absolute Neutrophils 1.80 - 7.70 K/uL 5.36 5.93 7.40 Latest Reference Range & Units 05/22/24 08:56 06/25/24 12:29 07/09/24 11:20 BUN 6 - 20 mg/dL 22 (H) 18 18 CREATININE 0.6 - 1.2 mg/dL 1.6 (H) 1.4 (H) 1.3 (H) EGFR >=60 mL/min 44 (L) 52 (L) 56 (L) Latest Reference Range & Units 05/22/24 08:56 06/25/24 12:29 07/09/24 11:20 CALCIUM 8.4 - 10.2 mg/dL 8.5 9.0 7.6 (L) Latest Reference Range & Units 05/22/24 08:56 06/25/24 12:29 07/09/24 11:20 Albumin 3.8 - 5.0 g/dL 4.0 4.2 3.7 (L) AST 10 - 50 U/L 17 19 15 ALT 10 - 50 U/L 15 19 13 Alkaline Phosphatase 35 - 130 U/L 116 118 89 Bilirubin, Total <=1.2 mg/dL 0.4 0.4 0.6 Time Spent on Encounter: 6 - 10 [...] Description 07/23/2024 12:00 PM EDT Laboratory Laboratory, [place] [address] [place] [phone] [place] [address] [place] [address] 07/24/2024 9:00 AM EDT Pharmacy Pharmacy Hematology Oncology [facility] [address] [place] [address] [facility], [facility] Hem/Onc [address] [place] [address] 07/24/2024 11:00 AM EDT Hem/Onc Treatment Hematology/Oncology Treatment, [place] [address] [place] [phone] Tresa, Chair 9 Hem Onc Scen[address] [place] [address] 08/06/2024 12:00 PM EST Laboratory Laboratory, [place] [address] [place] [phone] [facility] [address] [place] [address] 08/07/2024 9:30 AM EST Office Visit Hematology/Oncology [facility] [address] [place] [phone] Luann De La Cruz MD [address] [place] [address] 08/07/2024 10:00 AM EST Hem/Onc Treatment Hematology/Oncology Treatment, [place] [address] [place] [phone] Tresa, Chair 8 Hem Onc [facility] [address] [place] [address] 09/05/2024 1:15 PM EST Imaging Radiology [facility] [address] [facility] [address] [place] [address] 09/11/2024 1:30 PM EST Office Visit Vascular Surgery, [facility] [address] [place] [address] Darrin Lowe MD [address] [place] [address] Scheduled Procedures Name Priority Associated Diagnoses Date/Ti me COLONOSCOPY FLEXIBLE PROXIMAL DIAGNOSTIC Recall History of colon polyps Scheduled Referrals Name Type Priority Associated Diagnoses Orde r Schedule PHARMACIST MEDS THERAPY MGMT REFERRAL OP Referral Within 10 days (routine) Multiple myeloma not having achieved remission (HCC) Ordered: 06/24/2024 Health Maintenance Due Date Last Done Comments [...] 01/12/2024, 07/12/2017 (Declined) CKD HGB USE SMARTSET 36654 07/09/202507/09, 07/09/2024, 06/25/2024, Additional history exists CKD PHOS USE SMARTSET 14582 07/09/202506/25, 02/13/2023, 02/11/2021 O2 ASSESSMENT COMPLETED IN [...] Primary documented in this encounter Care Teams Program Attendant Relationship Specialty Start Date End Date Savanah Geiger DO [address] [place] [address] PCP - General Family Medicine 04/11/12 documented as of this encounter
--- OUTSIDE RECORDS SUMMARY | 2024-09-04 22:29 | External Medical Summary ---
Author Name Unknown Address Unknown Organization K01:LAB[facility]ATORY [place] [address] [place] [address] Laboratory Report Ordering Provider Test Date Status MARY ANNE LAGUNA 07/09/2024 11:20:54 Final Observation Date Value Abnormality Reference (Units ) Status WBC, Total 07/09/2024 11:20:54 9.72 4.00-10.80 (K/uL) Final RBC 07/09/2024 11:20:54 3.25 4.50-5.25 (M/uL) Final Hemoglobin 07/09/2024 11:20:54 10.2 Below low normal 14.0-16.8 (g/dL) Final HCT 07/09/2024 11:20:54 32.7 Below low normal 40.0-48.4 (%) Final MCV 07/09/2024 11:20:54 100.6 82.0-99.5 (fL) Final MCH 07/09/2024 11:20:54 31.4 27.0-34.0 (pg) Final MCHC 07/09/2024 11:20:54 31.2 32.0-36.0 (g/dL) Final RDW 07/09/2024 11:20:54 15.5 11.5-15.5 (%) Final Platelets 07/09/2024 11:20:54 175 140-400 (K/uL) Final MPV 07/09/2024 11:20:54 12.1 6.6-11.1 (fL) Final Nucleated erythrocytes/100 leukocytes [Ratio] in Blood by Automated count 07/09/2024 11:20:54 0 <=0 (/100 WBCs) Final Performing Location LAB[facility]ORY [facility] [address] [place] [address]
--- OUTSIDE RECORDS SUMMARY | 2024-09-04 22:29 | External Medical Summary | Summary of Care ---
Author Name Unknown Organization [facility] Address [address] [place] [address] Phone [phone] Care Team Providers Care Supervisor Calibration Name Role Phone Owen Baires DO Primary Care Provider Reason for Visit * Reason Onset Date Comments Medication Refill 06/27/2024 Encounter Details Date Type Department Care Team (Late st Contact Info) Description 06/27/2024 Refill [facility] [address] [place] [address] Owen Baires DO [address] [place] [address] Encounter for long-term (current) use [...] Sublingual Tablet Sublingual (Nitrostat)Indica tions:Atheroscler osis of [place] coronary artery of [place] heart without angina pectoris One tablet under [...] cancer 04/24/2020 Coronary artery disease invo lving [place] heart without angina pectoris 05/22/2019 Old myocardial infarct 12/06/2018 S/p bare metal coronary artery stent 01/12/2015 Tobacco use disorder 04/16/2012 HTN, goal below 130/80 2012 GERD (gastroesophageal reflux disease) 2 documented as of this encounter (statuses as of 07/10/2024) Resolved Problems Problem Noted Date Diagnosed Date Resolved Date Coronary artery disease of n ative artery of [place] heart with stable angina pectoris 08/21/2023 08/21/2023 Dehydration 02/01/2021 03/29/2022 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 Atherosclerosis of coronary artery without angina pectoris 09/14/2018 03/29/2022 ST elevation myocardial infarction (STEMI) 03/20/2017 12/06/2018 Lung nodule 10/14/2015 03/29/2022 ST elevation myocardial infa rction (STEMI) involving other coronary artery 05/19/2015 03/20/[address] elevation [place] (STEMI) 01/12/201508/26 Myocardial infarction 02/03/20142017 COPD, moderate 08/27/2013 08/06/2020 Overview: Per COPD GOLD Classification Noncompliance 03/13/2013 03/21/2017 Anemia 05/03/2012 03/29/2022 COPD, severity to be determined 04/16/2012 08/27/2013 Dyslipidemia, goal LDL below 70 04/16/2012 03/29/2022 documented as of this encounter (statuses as of 07/10/2024) Immunizations Name Administration Dates Next Due COVID-19 mRNA, LNP-s, No Pre serve, 2-Dose Series ([email or web address]) 08/28/2021,02/18/2021,01/28/2021 Pneumococcal Conjugate Vacc, 13 Valent (Prevnar) [...] encounter Miscellaneous Notes * Telephone Encounter - Josiane Major, [facility] - 07/10/2024 2:47 PM EDT Tried to call patient about B12; LMOVM. If patient calls back please transfer to myself, if I am not available please select next [facility]. Advise and counseling director on B12 start Thank you, Josiane Major, [...] Clinical Pharmacy Services ([facility]) 07/10/24 10:10 AM [phone] * Telephone Encounter - Josiane Major RPh - 06/28/2024 4:06 PM EDT Signed Prescriptions: Disp Refills Pantoprazole Sodium 20 MG Oral Tablet Marla*90 Tab*1 Sig: Take 1 Tablet by mouth in the morning. 30 minutes before the first meal of the day. Do not crush, split or chew the tablet.Authorizing Provider: OWEN BAIRES User: JOSIANE AMJOR--------- * Telephone Encounter - Josiane Major RPh - 06/28/2024 4:04 PM EDT Per refill protocol patient needs vitamin B-12 lab on file within the past 2 years while using PPIs. Lab work ordered. Patient may obtain with next routine labs. Thank you, Josiane Major PharmD, ALLYN Clinical Pharmacist Centralized Clinical Pharmacy Services ([facility]) 06/28/24 4:05 PM [phone] documented in this encounter Plan of Treatment Upcoming Encounters Date Type Department Care Team (Late st Contact Info) Description 07/23/2024 12:00 PM EDT Laboratory Laboratory, [address] [phone] [facility] [address] [place] [address] 07/24/2024 11:00 AM EDT Hem[facility] [address] [place] [phone] Park, Chair 9 Hem Onc [facility] [address] [facility] [address] 08/06/2024 12:00 PM EST Laboratory Laboratory, [place] [address] [place] [facility] [place] [address] [facility] [address] [place] [address] 08/07/2024 9:30 AM EST Office Visit Hematology/Oncology [facility] [address] [place] [phone] Luann De La Cruz MD [address] [place] [address] 08/07/2024 10:00 AM EST Hem[facility] 200 [facility], [place] [phone] Tresa, Chair 8 Hem Onc [facility] [address] [facility] [place], [place] [address] 09/05/2024 1:15 PM EST Imaging Radiology [facility] 1st [facility] [address] [facility] [place] [address] 09/11/2024 1:30 PM EST Office Visit Vascular Surgery, [facility] [address] [facility] [place] [address] Darrin Lowe MD [address] [place] [address] Scheduled Orders Name Type Priority Associated Diagnoses [...] Albumin/Creatinine Ratio 09/11/2024 09/11/2023 GFR 01/07/2025 07/09/2024, 1009/2023, 05/22/2024, Additional history exists Depression Screening 01/11/2025 01/12/2024, 07/12/2017 (Declined) CKD HGB USE SMARTSET 68709 07/09/202507/09, 07/09/2024, 06/25/2024, Additional history exists CKD PHOS USE SMARTSET 17874 07/09/202506/25, 02/13/2023, 02/11/2021 O2 ASSESSMENT COMPLETED IN [...] Results * PHOSPHORUS (07/09/2024 11:20 AM EDT) Phosphorus 2.5 2.5 - 4.8 mg/dL 07/09/2024 11:07 PM EDT LABORATORY [facility] Blood Venous blood specimen / Unknown Venipuncture / Unknown 07/09/2024 11:20 AM EDT 07/09/2024 11:20 AM EDT Josiane Major [facility] LAB BLOOD ORDE DEVAN Performing Organization Address City/[facility] Co de Phone Number [facility]ATORY [facility] [address] [place] [address] * (ABNORMAL) VITAMIN B12 (07/09/2024 11:20 AM EDT) Vitamin B12 213(L) 232 - 1,245 pg/mL 07/09/2024 11:29 PM EDT [facility] Blood Venipuncture / Unknown 07/09/2024 11:20 AM EDT 07/09/2024 11:20 AM EDT Josiane Major [facility] LAB BLOOD ORDShiela HARTMAN Performing Organization Address City/State/[facility] Co de Phone Number [facility]ORY [facility] [address] [place] [address] documented in this encounter Visit Diagnoses Diagnosis Encounter for long-term (current) use of medications- Primary Encounter for long-term (current) use of other medications Chronic kidney disease, stage 3a (HCC) documented in this encounter Care Teams Supervisor Calibration Relationship Specialty Start Date End Date Owen Baires DO [address] [place] [address] PCP - General Family Medicine 04/11/12 documented as of this encounter
--- OUTSIDE RECORDS SUMMARY | 2024-09-04 22:29 | External Medical Summary ---
Author Name Unknown Address Unknown Organization K01:[facility] [address] [place] [address] Laboratory Report Ordering Provider Test Date Status MORIAH JOSHUA 07/09/2024 11:20:54 Final Observation Date Value Abnormality Reference (Units ) Status Vitamin B12 07/09/2024 11:20:54 213 Below low normal 2 32-1245 (pg/mL) Final Performing Location LABORATORY C - [address] [place] [address]
--- OUTSIDE RECORDS SUMMARY | 2024-09-04 22:29 | External Medical Summary | Summary of Care ---
Author Name Unknown Organization [facility] Address [address] [place] [address] Phone [phone] Care Team Providers Care Bowling Alley Manager Name Role Phone Owen Baires DO Primary Care Provider Reason for Visit * Reason Onset Date Comments Medication Refill 06/27/2024 Encounter Details Date Type Department Care Team (Late st Contact Info) Description 06/27/2024 Refill [facility] [address] [place] [address] Owen Baires DO [address] [place] [address] Encounter for long-term (current) use [...] Sublingual Tablet Sublingual (Nitrostat)Indica tions:Atheroscler osis of [place] coronary artery of [place] heart without angina pectoris One tablet under [...] the tablet. 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 05/22/2019 Old myocardial infarct 12/06/2018 S/p bare metal coronary artery stent 01/12/2015 Tobacco use disorder 04/16/2012 HTN, goal below 130/80 2012 GERD (gastroesophageal reflux disease) 2 documented as of this encounter (statuses as of 07/10/2024) Resolved Problems Problem Noted Date Diagnosed Date Resolved Date Coronary artery disease of n ative artery of [place] heart with stable angina pectoris 08/21/2023 08/21/2023 Dehydration 02/01/2021 03/29/2022 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 Atherosclerosis of coronary artery without angina pectoris 09/14/2018 03/29/2022 ST elevation myocardial infarction (STEMI) 03/20/2017 12/06/2018 Lung nodule 10/14/2015 03/29/2022 ST elevation myocardial infa rction (STEMI) involving other coronary artery 05/19/2015 03/20/[address] elevation [place] (STEMI) 01/12/2015 1209/2017 Myocardial infarction 02/03/20142017 COPD, moderate 08/27/2013 08/06/2020 Overview: Per COPD GOLD Classification Noncompliance 03/13/2013 03/21/2017 Anemia 05/03/2012 03/29/2022 COPD, severity to be determined 04/16/2012 08/27/2013 Dyslipidemia, goal LDL below 70 04/16/2012 03/29/2022 documented as of this encounter (statuses as of 07/10/2024) Immunizations Name Administration Dates Next Due COVID-19 mRNA, LNP-s, No Pre serve, 2-Dose Series ([employer]) 08/28/2021,02/18/2021,01/28/2021 Pneumococcal Conjugate Vacc, 13 Valent (Prevnar) [...] encounter Miscellaneous Notes * Addendum Note - Josiane Major RPh - 07/10/2024 10:12 AM EDTAddended by: JOSIANE MAJOR on: 07/10/2024 10:12 AM Modules accepted: Orders * Telephone Encounter - Josiane Major RPh - 07/10/2024 10:10 AM EDT VITAMIN B12 - [facility] Date Value Ref Range Status 07/09/2024 213 [...] Clinical Pharmacy Services ([facility]) 07/10/24 10:10 AM [phone] * Telephone Encounter - Josiane Major RPh [...] Clinical Pharmacy Services ([facility]) 06/28/24 4:05 PM [phone] documented in this encounter Plan of Treatment Upcoming Encounters Date Type Department Care Team (Late st Contact Info) Description 07/10/2024 12:45 PM EDT Hem/Onc Treatment Hematology/Oncology Treatment, [address] [place] [phone] Tresa, Chair 2 Hem Onc Scenery [address] [facility] [place] [address] 07/23/2024 12:00 PM EDT Laboratory Laboratory, [place] [address] [place] [phone] [facility] [address] [place] [address] 07/24/2024 11:00 AM EDT Hem/Onc Treatment Hematology/Oncology [address], [place] [phone] Tresa, Chair 6 Hem Onc [address] [place] [address] 08/06/2024 12:00 PM EST Laboratory Laboratory, [place] [address] [place] [address] [place], Laboratory [address] [place] [address] 08/07/2024 9:30 AM EST Office Visit Hematology/Oncology [facility] [place] [address] [place] [phone] Luann De La Cruz MD [address] [facility] [place] [address] 08/07/2024 10:00 AM EST Hem/Onc Treatment Hematology/[address]cology [address], [address] [phone] Tresa, Chair 8 Hem Onc Scenery [address] [facility] [address] 09/05/2024 1:15 PM EST Imaging Radiology [facility] 1st [facility] [address] [facility] [place] [address] 09/11/2024 1:30 PM EST Office Visit Vascular Surgery, [facility] [address] [facility] [place] [address] Darrin Lowe MD [address] [place] [address] Scheduled Orders Name Type Priority [...] exists Depression Screening 01/11/2025 01/12/2024, 07/12/2017 (Declined) O2 ASSESSMENT COMPLETED IN PAST YEAR FOR COPD 06/26/2025 06/26/2024 CKD HGB USE SMARTSET 37230 07/09/202507/09, 07/09/2024, 06/25/2024, Additional history exists CKD PHOS USE SMARTSET 64441 07/09/202506/25, 02/13/2023, 02/11/2021 Pneumococcal Vaccine: 65+ Years Completed 07/25/2022, 07/09/2020 [...] 4.8 mg/dL 07/09/2024 11:07 PM EDT LABORATORY [facility] Blood Venous blood specimen / Unknown Venipuncture / Unknown 07/09/2024 11:20 AM EDT 07/09/2024 11:20 AM EDT Josiane Major [facility] LAB BLOOD MANDY HARTMAN LABORATORY [facility] [address] [place] [address] * (ABNORMAL) VITAMIN B12 (07/09/2024 11:20 AM EDT) Vitamin B12 213(L) 232 - 1,245 pg/mL 07/09/2024 11:29 PM EDT LABORATORY [facility] Blood Venipuncture / Unknown 07/09/2024 11:20 AM EDT 07/09/2024 11:20 AM EDT Josiane Alvaradopaddy Major [facility] LAB BLOOD MANDY HARTMAN LABORATORY [facility] [address] [place] [address] documented in this encounter Visit Diagnoses Diagnosis Encounter for long-term (current) use of medications- Primary Encounter for long-term (current) use of other medications Chronic kidney disease, stage 3a (HCC) documented in this encounter Care Teams Bowling Alley Manager Relationship Specialty Start Date End Date Owen Baires DO [address] [place], [place] [phone] PCP - General Family Medicine 04/11/12 documented as of this encounter
--- OUTSIDE RECORDS SUMMARY | 2024-09-04 22:29 | External Medical Summary | Summary of Care ---
Author Name Unknown Organization [facility] Address [address] [place] [address] Phone [phone] Care Team Providers Care Courtroom Deputy Name Role Phone Caseypiero Savanah Oswaldo JIMÉNEZ Primary Care Provider + [phone] Reason for Visit * Reason Comments Outpatient Testing Encounter Details Date Type Department Care Team (Late st Contact Info) Description 07/09/2024 12:00 PM EDT Laboratory Laboratory, [place] [address] [place] [address] [place], Laboratory [address] [place] [address] Multiple myeloma not having achieved remission (HCC); Encounter for long-term (current) use of medications; Chronic kidney disease, stage 3a (HCC) Allergies Active Allergy Reactions Criticality Noted Date Comments Calcium Carb-Cholecalciferol 016 documented as of this encounter (statuses as of 07/09/2024) Medications Medication Sig Dispensed Refills Start Date [...] Sublingual Tablet Sublingual (Nitrostat)Indicat ions:Atheroscleros is of [place] coronary artery of [place] heart without angina pectoris One tablet under [...] as of this encounter (statuses as of 07/09/2024) Active Problems Problem Noted Date Diagnosed Date [...] cancer 04/24/2020 Coronary artery disease invo lving [place] heart without angina pectoris 05/22/2019 Old myocardial infarct 12/06/2018 S/p bare metal coronary artery stent 01/12/2015 Tobacco use disorder 04/16/2012 HTN, goal below 130/80 2012 GERD (gastroesophageal reflux disease) 2 documented as of this encounter (statuses as of 07/09/2024) Resolved Problems Problem Noted Date Diagnosed Date Resolved Date Coronary artery disease of n ative artery of [place] heart with stable angina pectoris 08/21/2023 08/21/2023 [...] as of this encounter (statuses as of 07/09/2024) Immunizations Name Administration Dates Next Due COVID-19 mRNA, LNP-s, No Pre serve, 2-Dose Series (Nova Ratio) 08/28/2021,02/18/2021,01/28/2021 Pneumococcal Conjugate Vacc, 13 Valent (Prevnar) [...] 9:00 AM EDT Pharmacy Pharmacy Hematology Oncology [facility] [address] [place] [address] [facility] Hem/Onc [address] [place] [address] 07/10/2024 12:45 PM EDT Hem/Onc Treatment Hematology/Oncology Treatment, [place] [address] [place] [address] Tresa, Chair 2 Hem Onc Scen[address] [facility] [address] 07/23/2024 12:00 PM EDT Laboratory Laboratory, [address] [place] [phone] [place], Laboratory [address] [place] [facility] [address] 07/24/2024 11:00 AM EDT [facility] [phone] Tresa, Chair 6 Hem Onc [facility] [address] [facility] [address] 08/06/2024 12:00 PM EST Laboratory Laboratory, [place] [address] [place] [phone] [facility] [address] [place] [facility] [place] [address] 08/07/2024 9:30 AM EST Office Visit Hematology/Oncology [facility] 200 [facility] [place] [phone] Luann De La Cruz MD 200 [facility] [place] [address] 08/07/2024 10:00 AM EST Hem[facility]Onc [facility] [address] [facility] [phone] Tresa, Chair 8 Hem Onc [facility] 200 [facility] [place] [address] 09/05/2024 1:15 PM EST Imaging [facility] [address] [facility] [place] [address] 09/11/2024 1:30 PM EST Office Visit Vascular Surgery, [facility] [address] [place] [address] Darrin Lowe MD [address] [place] [address] Pending Results Name Type Priority Associated Diagnoses Date /Time CBC WITH WBC DIFFERENTIAL Lab STAT Multiple myeloma not having achieved remission (HCC) 07/09/2024 11:20 AM EDT COMPREHENSIVE METABOLIC PANEL Lab STAT Multiple myeloma not having achieved remission (HCC) 07/09/2024 11:20 AM EDT VITAMIN B12 Lab Routine Encounter for long-term (current) use of medications 07/09/2024 11:20 AM EDT PHOSPHORUS Lab Routine Encounter for long-term (current) use of medications Chronic kidney disease, stage 3a (HCC) 07/09/2024 11:20 AM EDT CBC Lab STAT Multiple myeloma not having achieved remission (HCC) 07/09/2024 11:20 AM EDT DIFFERENTIAL, AUTOMATED Lab STAT Multiple myeloma not having achieved remission (HCC) 07/09/2024 11:20 AM EDT Scheduled Procedures Name Priority Associated Diagnoses Date/Ti me COLONOSCOPY FLEXIBLE PROXIMAL DIAGNOSTIC Recall History of colon polyps Health Maintenance Due Date Last Done Comments Alpha-1 Antitrypsin 02/13/1970 Hepatitis C Screening 02/13/1970 Cologuard 02/13/1997 Fecal Occult Blood Test 02/13/1997 Sigmoidoscopy 02/13/1997 Adult Wellness Visit 02/13/2018 Colonoscopy 05/23/2020 05/23/2017 Colorectal Cancer Screening 05/23/2020 CKD PHOS USE SMARTSET 10510 2024 02/13/2023, 0 02/11/2021 COVID-19 Vaccine ( season) 2024 08/28/2021, 02/18/2021, 01/28/2021 Albumin/Creatinine Ratio 09/11/2024 09/11/2023 GFR 12/24/2024 06/25/2024, 04/26, 03/18/2024, Additional history exists Depression Screening 01/11/2025 01/12/2024, 07/12/2017 (Declined) CKD HGB USE SMARTSET 21004 06/25/202506/25, 06/25/2024, 05/22/2024, Additional history exists O2 ASSESSMENT COMPLETED IN PAST YEAR FOR COPD 06/26/2025 06/26/2024 Pneumococcal Vaccine: 65+ Years Completed 07/25/2022, 07/09/2020 [...] (HCC) documented in this encounter Care Teams Courtroom Deputy Relationship Specialty Start Date End Date Savanah Geiger DO [address] [place] [address] PCP - General Family Medicine 04/11/12 documented as of this encounter
--- OUTSIDE RECORDS SUMMARY | 2024-09-04 22:29 | External Medical Summary | Summary of Care ---
Author Name Unknown Organization [facility] Address [address] [place] [address] Phone [phone] Care Team Providers Care Magnetic Observer Name Role Phone Savanah Geiger DO Primary Care Provider + [phone] Reason for Visit * Reason Comments Chemotherapy Velcade * Episode Based Medications (Routine) - Authorized Specialty Diagnoses / Procedures Referred By Contnataliia t Referred To Contact Diagnoses Multiple myeloma not having achieved remission (HCC) Encounter for antineoplastic chemotherapy Procedures RI INJECTION, BORTEZOMIB, 0.1MG Luann De La Cruz MD [address] [place] [address] Anc Hem/Onc Sharlene [facility] DEPT CLOSED - 08/08/23 200 [facility] [place] [address] Referral ID Status Reason Start Date Expiration Date V isits Requested Visits Authorized [id number] Authorized 06/18/2024 06/19/[phone] Encounter Details Date Type Department Care Team (Latest Contact Info) Description 07/10/2024 12:45 PM EDT Hem/Onc Treatment Hematology/Oncolog y Treatment, [place] [address] [place] [address] Treas, Chair 2 Hem Onc Scenery [address] [place] [address] Multiple myeloma not having achieved remission (HCC)*; [...] Sublingual Tablet Sublingual (Nitrostat)Indicat ions:Atheroscleros is of [place] coronary artery of [place] heart without angina pectoris One tablet under [...] cancer 04/24/2020 Coronary artery disease invo lving [place] heart without angina pectoris 05/22/2019 Old myocardial infarct 12/06/2018 S/p bare metal coronary artery stent 01/12/2015 Tobacco use disorder 04/16/2012 HTN, goal below 130/80 2012 GERD (gastroesophageal reflux disease) 2 documented as of this encounter (statuses as of 07/10/2024) Resolved Problems Problem Noted Date Diagnosed Date Resolved Date Coronary artery disease of n ative artery of [place] heart with stable angina pectoris 08/21/2023 08/21/2023 [...] in this encounter Progress Notes * Mathew Lind RN - 07/10/2024 1:29 PM EDT Pt [...] Description 07/23/2024 12:00 PM EDT Laboratory Laboratory, [place] [address] [facility] [phone] [place], [facility] [address] [facility] [address] 07/24/2024 11:00 AM EDT Hem/Onc Treatment Hematology/Oncology Treatment, [address] [phone] Tresa, Chair 6 Hem Onc [address] [address] 08/06/2024 12:00 PM EST Laboratory Laboratory, [place] [address] [facility] [phone] [place], [facility] [address] [facility] [address] 08/07/2024 9:30 AM EST Office Visit Hematology/Oncology [address] [address] Luann De La Cruz MD [address] [place] [address] 08/07/2024 10:00 AM EST Hem/Onc Treatment Hematology/Oncology Treatment, [place] [address] [place] [phone] [place], Chair 8 Hem Onc Scenery [address] [place] [address] 09/05/2024 1:15 PM EST [facility] [address] [facility] [place] [address] 09/11/2024 1:30 PM EST Office Visit Vascular Surgery, [facility] [address] [facility] [place] [address] Darrin Lowe MD [address] [place] [address] Scheduled Procedures Name Priority Associated Diagnoses Date/Ti [...] COPD 06/26/2025 06/26/2024 CKD HGB USE SMARTSET 76369 07/09/202507/09, 07/09/2024, 06/25/2024, Additional history exists CKD PHOS USE SMARTSET 56136 07/09/202506/25, 02/13/2023, 02/11/2021 Pneumococcal Vaccine: 65+ Years [...] dose, Caution chemotherapy: Handle with gloves Given 07/10/2024 12:53 PM EDT 2.5 mg Abdomen Left Lower documented in this encounter Care Teams Magnetic Observer Relationship Specialty Start Date End Date Savanah Geiger DO [address] [facility] [place] [phone] PCP - General Family Medicine 04/11/12 documented as of this encounter
--- OUTSIDE RECORDS SUMMARY | 2024-09-04 22:29 | External Medical Summary ---
Author Name Unknown Address Unknown Organization K01:LABORATORY C - [address] [place] [address] Laboratory Report Ordering Provider Test Date Status MORIAH JOSHUA 07/09/2024 11:20:54 Final Observation Date Value Abnormality Reference (Units ) Status Phosphate 07/09/2024 11:20:54 2.5 2.5-4.8 (m g/dL) Final Performing Location [facility] - [address] [place] [address]
--- OUTSIDE RECORDS SUMMARY | 2024-09-04 22:29 | External Medical Summary | Summary of Care ---
Author Name Unknown Organization [facility] Address [address] [place] [address] Phone [phone] Care Team Providers Care Composite Laminator Name Role Phone Owen Baires DO Primary Care Provider Reason for Visit * Reason Onset Date Comments Medication Refill 06/27/2024 Encounter Details Date Type Department Care Team (Late st Contact Info) Description 06/27/2024 Refill [facility] [address] [place] [address] Owen Baires DO [address] [place] [address] Encounter for long-term (current) use [...] Sublingual Tablet Sublingual (Nitrostat)Indica tions:Atheroscler osis of [place] coronary artery of [place] heart without angina pectoris One tablet under [...] cancer 04/24/2020 Coronary artery disease invo lving [place] heart without angina pectoris 05/22/2019 Old myocardial infarct 12/06/2018 S/p bare metal coronary artery stent 01/12/2015 Tobacco use disorder 04/16/2012 HTN, goal below 130/80 2012 GERD (gastroesophageal reflux disease) 2 documented as of this encounter (statuses as of 07/10/2024) Resolved Problems Problem Noted Date Diagnosed Date Resolved Date Coronary artery disease of n ative artery of [place] heart with stable angina pectoris 08/21/2023 08/21/2023 [...] mRNA, LNP-s, No Pre serve, 2-Dose Series ([employer]) 08/28/2021,02/18/2021,01/28/2021 Pneumococcal Conjugate Vacc, 13 Valent (Prevnar) [...] Miscellaneous Notes * Telephone Encounter - Josiane Major [facility] - 07/10/2024 2:58 PM EDT Advised pt of B12 start. Thank you, Josiane Major, PharmD, ALLYN Clinical Pharmacist [facility] ([facility]) 07/10/24 2:59 PM [phone] * Telephone Encounter - Hanny Hudson health and wellness manager - 07/10/2024 2:53 PM EDT Patient is calling back. Transferred to pharmacist. Hanny Mixon Supervisor Hard Candy II [facility] 07/10/2024 2:54 PM * Telephone Encounter - Josiane Major [facility] - 07/10/2024 2:47 PM EDT Tried to call patient about B12; LMOVM. If patient calls back please transfer to myself, if I am not available please select next [facility]. Advise and personnel counselor on B12 start Thank you, Josiane Major PharmD, ALLYN Clinical [...] BAIRES * Addendum Note - Josiane Major [facility] - 07/10/2024 10:12 AM EDTAddended by: JOSIANE MAJOR on: 07/10/2024 10:12 AM Modules accepted: Orders * Telephone Encounter - Josiane Major RPh - 07/10/2024 10:10 AM EDT VITAMIN B12 - [facility] Date Value Ref Range Status 07/09/2024 213 [...] advise of new supplement. Thank you, Josiane Major, PharmD, ALLYN Clinical Pharmacist [facility] ([facility]) 07/10/24 10:10 AM [phone] * Telephone Encounter - Josiane Major RPh - 06/28/2024 4:06 PM EDT Signed Prescriptions: Disp Refills Pantoprazole Sodium 20 MG Oral Tablet Marla*90 Tab*1 Sig: Take 1 Tablet by mouth in the morning. 30 minutes before the first meal of the day. Do not crush, split or chew the tablet.Authorizing Provider: OWEN BAIRES User: JOSIANE MAJOR--------- * Telephone Encounter - Josiane Major [facility] - 06/28/2024 4:04 PM EDT Per refill protocol patient needs vitamin B-12 lab on file within the past 2 years while using PPIs. Lab work ordered. Patient may obtain with next routine labs. Thank you, Josiane Major PharmD, ALLYN Clinical Pharmacist [facility] ([facility]) 06/28/24 4:05 PM [phone] documented in this encounter Plan of Treatment Upcoming Encounters Date Type Department Care Team (Late st Contact Info) Description 07/23/2024 12:00 PM EDT Laboratory Laboratory, [address] [place] [phone] [facility] [address] [place] [address] 07/24/2024 11:00 AM EDT Hem/Onc Treatment Hematology/Oncology Treatment, [address] [phone] Tresa, Chair 9 Hem On[address] [place] [address] 08/06/2024 12:00 PM EST Laboratory Laboratory, [address] [place] [phone] [facility] [address] [place] [address] 08/07/2024 9:30 AM EST Office Visit Hematology/Oncology [facility] [place] [address] [facility] [place] [phone] Luann De La Cruz MD [address] [facility] [place] [address] 08/07/2024 10:00 AM EST Hem/Onc Treatment Hematology/Oncology Treatment, [place] [address] [place] [phone] Tresa, Chair 8 Hem Onc Scenery [address] [place] [address] 09/05/2024 1:15 PM EST Imaging Rad[facility] [address] [facility] [address] 09/11/2024 1:30 PM EST Office Visit Vascular Surgery, [facility] [address] [place] [address] Darrin Loew MD [address] [place], [place] [address] Scheduled Orders Name Type Priority Associated Diagnoses [...] Albumin/Creatinine Ratio 09/11/2024 09/11/2023 GFR 01/07/2025 07/09/2024, 10/0 09/2023, 05/22/2024, Additional history exists Depression Screening 01/11/2025 01/12/2024, 07/12/2017 (Declined) CKD HGB USE SMARTSET 86899 07/09/202507/09, 07/09/2024, 06/25/2024, Additional history exists CKD PHOS USE SMARTSET 41829 07/09/202506/25, 02/13/2023, 02/11/2021 O2 ASSESSMENT COMPLETED IN [...] (07/09/2024 11:20 AM EDT) Pathologist [facility] Phosphorus 2.5 2.5 - 4.8 mg/dL 07/09/2024 11:07 PM EDT LABORATORY [facility] Blood Venous blood specimen / Unknown Venipuncture / Unknown 07/09/2024 11:20 AM EDT 07/09/2024 11:20 AM EDT Josiane Major [facility] LAB BLOOD MANDY HARTMAN LABORATORY [facility] [address] [place] [address] * (ABNORMAL) VITAMIN B12 (07/09/2024 11:20 AM EDT) Vitamin B12 213(L) 232 - 1,245 pg/mL 07/09/2024 11:29 PM EDT LABORATORY [facility] Blood Venipuncture / Unknown 07/09/2024 11:20 AM EDT 07/09/2024 11:20 AM EDT Josiane Major [facility] LAB BLOOD MANDY HARTMAN LABORATORY [facility] [address] [place], [place] [phone] documented in this encounter Visit Diagnoses Diagnosis Encounter for long-term (current) use of medications- Primary Encounter for long-term (current) use of other medications Chronic kidney disease, stage 3a (HCC) documented in this encounter Care Teams Composite Laminator Relationship Specialty Start Date End Date Owen Baires DO [address] [place] [address] PCP - General Family Medicine 04/11/12 documented as of this encounter
--- OUTSIDE RECORDS SUMMARY | 2024-09-04 22:29 | External Medical Summary | Summary of Care ---
Author Name Unknown Organization [facility] Address [address] [place] [address] Phone [phone] Care Team Providers Care Razor Grinder Name Role Phone Griffinreed Savanah Oswaldo JIMÉNEZ Primary Care Provider Reason for Visit * Reason Onset Date Comments FYI 07/05/2024 Lenalidomide upd ate Encounter Details Date Type Department Care Team (Late st Contact Info) Description 07/05/2024 Telephone Hematology/Oncology [facility] Tresa [place] [address] [place] [phone] Luann De La Cruz MD [address] [place] [address] FYI (Lenalidomide update) Allergies Active Allergy Reactions [...] Sublingual Tablet Sublingual (Nitrostat)Indicat ions:Atheroscleros is of [place] coronary artery of [place] heart without angina pectoris One [...] cancer 04/24/2020 Coronary artery disease invo lving [place] heart without angina pectoris 05/22/2019 Old myocardial infarct 12/06/2018 S/p bare metal coronary artery stent 01/12/2015 Tobacco use disorder 04/16/2012 HTN, goal below 130/80 2012 GERD (gastroesophageal reflux disease) 2 documented as of this encounter (statuses as of 07/10/2024) Resolved Problems Problem Noted Date Diagnosed Date Resolved Date Coronary artery disease of n ative artery of [place] heart with stable angina pectoris 08/21/2023 08/21/2023 Dehydration 02/01/2021 03/29/2022 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 Atherosclerosis of coronary artery without angina pectoris 09/14/2018 03/29/2022 ST elevation myocardial infarction (STEMI) 03/20/2017 12/06/2018 Lung nodule 10/14/2015 03/29/2022 ST elevation myocardial infa rction (STEMI) involving other coronary artery 05/19/2015 03/20/[address] elevation [place] (STEMI) 01/12/201508/26 Myocardial infarction 02/03/20142017 COPD, moderate 08/27/2013 08/06/2020 Overview: Per COPD GOLD Classification Noncompliance 03/13/2013 03/21/2017 Anemia 05/03/2012 03/29/2022 COPD, severity to be determined 04/16/2012 08/27/2013 Dyslipidemia, goal LDL below 70 04/16/2012 03/29/2022 documented as of this encounter (statuses as of 07/10/2024) Immunizations Name Administration Dates Next Due COVID-19 mRNA, LNP-s, No Pre serve, 2-Dose Series ([employer]) 08/28/2021,02/18/2021,01/28/2021 Pneumococcal Conjugate Vacc, 13 Valent (Prevnar) [...] - 07/10/2024 3:49 PM EDT Update: per [employer], [employer] dispensed Revlimid on 07/09/2024. Next refill has been scheduled for 07/23/2024 - 21 day cycle. SANJAY Shipley Funeral Counselor Hematology Oncology Oral Chemotherapy Clinic Medication Therapy Disease Management [facility] 07/10/24,3:51 PM Time Spent on Encounter: < 5 minutes * Telephone Encounter - Joanna Lezama CPhT - 07/05/2024 2:59 PM EDT Lenalidomide update: Per [facility] Specialty portal, Insurance verification in process. Spoke to [facility] Specialty quality assurance representative Pedro Pablo who advised claim was flagged and patient was unable to fill at [facility] due to filling Lenalidomide elsewhere. Advised patient had been holding therapy since end of 2022 and to be restarting. [employer] was able to clear flag and reprocess claim with $3.15 copay. Left message with patient advising Lenalidomide is ready to schedule for delivery Will follow up for dispense updates Joanna Lezama Funeral Counselor III Hematology Oncology Oral Chemotherapy Clinic Medication Therapy Disease Management [facility] 07/05/2024 3:11 PM Time Spent on Encounter: 11 - 15 minutes documented in this encounter Plan of Treatment Upcoming Encounters Date Type Department Care Team (Late st Contact Info) Description 07/23/2024 12:00 PM EDT Laboratory Laboratory, [address] [place] [phone] [place] [facility] [address] [place] [address] [place] [address] 07/24/2024 11:00 AM EDT Hem/Onc Treatment Hematology/Oncology Treatment, [place] 200 [facility] [place] [phone] Tresa, Chair 9 Hem Onc [address] [place] [address] 08/06/2024 12:00 PM EST Laboratory Laboratory, [place] [address] [place] [address] [place] [phone] [facility] Laboratory [address] [place] [address] 08/07/2024 9:30 AM EST Office Visit Hematology/Oncology [facility] Tresa [place] 200 [facility] [place] [phone] Luann De La Cruz MD 200 [facility] [place] [address] 08/07/2024 10:00 AM EST Hem/Onc Treatment Hematology/Oncology Treatment, [place] [address] [place] [address] Tresa, Chair 8 Hem Onc Scenery [address] [place] [address] 09/05/2024 1:15 PM EST Imaging Radiology [facility] 132 [facility] [place] [address] 09/11/2024 1:30 PM EST Office Visit Vascular Surgery, [facility] 132 [facility] [place] [address] Darrin Lowe MD [address] [place], [place] [phone] Scheduled Procedures Name Priority Associated Diagnoses Date/Ti [...] 01/12/2024, 07/12/2017 (Declined) CKD HGB USE SMARTSET 82813 07/09/202507/09, 07/09/2024, 06/25/2024, Additional history exists CKD PHOS USE SMARTSET 96809 07/09/202506/25, 02/13/2023, 02/11/2021 O2 ASSESSMENT COMPLETED IN [...] Primary documented in this encounter Care Teams Razor Grinder Relationship Specialty Start Date End Date Savanah Geiger DO [address] [place] [address] PCP - General Family Medicine 04/11/12 documented as of this encounter
--- OUTSIDE RECORDS SUMMARY | 2024-09-04 22:29 | External Medical Summary | Summary of Care ---
Author Name Unknown Organization [facility] Address [address] [place] [address] Phone [phone] Care Team Providers Care Asphalt Worker Name Role Phone Griffinreed Savanah Oswaldo JIMÉNEZ Primary Care Provider Reason for Visit * Reason Onset Date Comments FYI 07/05/2024 Lenalidomide upd ate Encounter Details Date Type Department Care Team (Late st Contact Info) Description 07/05/2024 Telephone Hematology/Oncology [facility] [place] [place] [address] [place] [phone] Luann De La Cruz MD [address] [place] [address] FYI (Lenalidomide update) Allergies Active Allergy Reactions Criticality Noted Date Comments Calcium Carb-Cholecalciferol 016 documented as of this encounter (statuses as of 07/05/2024) Medications Medication Sig Dispensed Refills Start Date [...] Sublingual Tablet Sublingual (Nitrostat)Indicat ions:Atheroscleros is of [place] coronary artery of mechoopda heart without angina pectoris One tablet under [...] as of this encounter (statuses as of 07/05/2024) Active Problems Problem Noted Date Diagnosed Date [...] cancer 04/24/2020 Coronary artery disease invo lving mechoopda heart without angina pectoris 05/22/2019 Old myocardial infarct 12/06/2018 S/p bare metal coronary artery stent 01/12/2015 Tobacco use disorder 04/16/2012 HTN, goal below 130/80 2012 GERD (gastroesophageal reflux disease) 2 documented as of this encounter (statuses as of 07/05/2024) Resolved Problems Problem Noted Date Diagnosed Date Resolved Date Coronary artery disease of n ative artery of mechoopda heart with stable angina pectoris 08/21/2023 08/21/2023 [...] as of this encounter (statuses as of 07/05/2024) Immunizations Name Administration Dates Next Due COVID-19 mRNA, LNP-s, No Pre serve, 2-Dose Series (MTEM [employer]) 08/28/2021,02/18/2021,01/28/2021 Pneumococcal Conjugate Vacc, 13 Valent (Prevnar) [...] 07/05/2024 2:59 PM EDT Lenalidomide update: Per [facility] Specialty portal, Insurance verification in process. Spoke to [facility] Specialty sales representative uniforms Pedro Pablo who advised claim was flagged and patient was unable to fill at [facility] due to filling Lenalidomide elsewhere. Advised patient had been holding therapy since end of 2022 and to be restarting. Seismograph Shooter was able to clear flag and reprocess claim with $3.15 copay. Left message with patient advising Lenalidomide is ready to schedule for delivery Will follow up for dispense updates Joanna Lezama Sausage Inspector III Hematology Oncology Oral Chemotherapy Clinic Medication Therapy Disease Management [facility] 07/05/2024 3:11 PM Time Spent on Encounter: 11 - 15 minutes documented in this encounter Plan of Treatment Upcoming Encounters Date Type Department Care Team (Late st Contact Info) Description 07/09/2024 12:00 PM EDT Laboratory Laboratory, [place] [address] [place] [facility] [place] [address] [place], [facility] [address] [place] [address] 07/10/2024 9:00 AM EDT Pharmacy Pharmacy Hematology [facility] [address] [place] [address] [facility] Hem/Onc [address] [place] [address] 07/10/2024 12:45 PM EDT Hem/Onc Treatment Hematology/Oncology Treatment, [address] [place] [address] Tresa, Chair 2 Hem Onc [facility] [address] [place] [address] [place], [place] [address] 07/23/2024 12:00 PM EDT Laboratory Laboratory, [place] [address] [place] [address] [facility] [address] [place] [address] 07/24/2024 11:00 AM EDT Hem/Onc Treatment Hematology/Oncology Treatment, [address] [place] [address] Tresa, Chair 6 Hem Onc [place] [address] [facility] [place] [address] 08/06/2024 12:00 PM EST Laboratory Laboratory, [place] [address] [place] [facility] [place] [address] [place], Laboratory [address] [place] [address] 08/07/2024 9:30 AM EST Office Visit Hematology/Oncology [facility] [address] [place], [place] [phone] Luann De La Cruz MD [address] [place] [address] 08/07/2024 10:00 AM EST Hem/Onc Treatment Hematology/Oncology Treatment, [place] [address] [place] [phone] Tresa, Chair 8 Hem Onc [facility] [address] [facility] [place] [address] 09/05/2024 1:15 PM EST Imaging Radiology [facility] 1st [facility] [address] [place] [address] 09/11/2024 1:30 PM EST Office Visit Vascular Surgery, [facility] [address] [place] [address] Darrin Lowe MD [address] [place] [address] Scheduled Procedures Name Priority Associated Diagnoses Date/Ti me COLONOSCOPY FLEXIBLE PROXIMAL DIAGNOSTIC Recall History of colon polyps Health Maintenance Due Date Last Done Comments Alpha-1 Antitrypsin 02/13/1970 Hepatitis C Screening 02/13/1970 Cologuard 02/13/1997 Fecal Occult Blood Test 02/13/1997 Sigmoidoscopy 02/13/1997 Adult Wellness Visit 02/13/2018 Colonoscopy 05/23/2020 05/23/2017 Colorectal Cancer Screening 05/23/2020 CKD PHOS USE SMARTSET 47043 2024 02/13/2023, 0 02/11/2021 COVID-19 Vaccine ( season) 2024 08/28/2021, 02/18/2021, 01/28/2021 Albumin/Creatinine Ratio 09/11/2024 09/11/2023 GFR 12/24/2024 06/25/2024, 0804/2024, 03/18/2024, Additional history exists Depression Screening 01/11/2025 01/12/2024, 07/12/2017 (Declined) CKD HGB USE SMARTSET 95615 06/25/202506/25, 06/25/2024, 05/22/2024, Additional history exists O2 [...] Primary documented in this encounter Care Teams Asphalt Worker Relationship Specialty Start Date End Date Savanah Geiger DO [address] [place] [address] PCP - General Family Medicine 04/11/12 documented as of this encounter
--- OUTSIDE RECORDS SUMMARY | 2024-09-04 22:30 | External Medical Summary | Summary of Care ---
Author Name Unknown Organization [facility] Address [address] [place] [address] Phone [phone] Care Team Providers Care Catering Staff Member Name Role Phone Savanah Geiger DO Primary Care Provider + [phone] Reason for Visit * Reason Comments Chemotherapy C1/D1 - Velcade * Episode Based Medications (Routine) - Authorized Specialty Diagnoses / Procedures Referred By Suki t Referred To Contact Diagnoses Multiple myeloma not having achieved remission (HCC) Encounter for antineoplastic chemotherapy Procedures CO INJECTION, BORTEZOMIB, 0.1MG Luann De La Cruz MD [address] [facility] [place] [address] Anc Hem/Onc [facility] DEPT CLOSED - 08/08/23 [address] [place] [address] Referral ID Status Reason Start Date Expiration Date V isits Requested Visits Authorized [id number] Authorized 06/18/2024 06/19/[phone] Encounter Details Date Type Department Care Team (Latest Contact Info) Description 06/26/2024 12:45 PM EDT Hem/Onc Treatment Hematology/Oncolog y Treatment, [place] [address] [place] [address] Multiple myeloma not having achieved remission (HCC)*; Encounter for antineoplastic chemotherapy Allergies Active Allergy Reactions Criticality Noted Date Comments Calcium Carb-Cholecalciferol 016 documented as of this encounter (statuses as of 06/26/2024) Medications Medication Sig Dispensed Refills Start Date [...] Sublingual Tablet Sublingual (Nitrostat)Indicat ions:Atheroscleros is of [place]qu[place] coronary artery of [place]qu[place] heart [...] for Pain, Moderate. 30 Tablet 07/24/2023 Active Atorvastatin Calcium 80 MG Oral Tablet (Lipitor)Indicatio ns:Dyslipidemia, goal LDL below 100 Take 1 Tablet by mouth in the morning. 90 Tablet 3 08/19/2023 Active Pantoprazole Sodium 20 MG Oral Tablet Delayed Release (Protonix) Take 1 Tablet by mouth in the morning. 30 minutes before the first meal of the day. Do not crush, split or chew the tablet. 90 Tablet 3 08/28/2023 Active Ipratropium-Albute rol 0.5-2.5 (3) MG/3ML Inhalation [...] Tablet before bedtime. 180 Tablet 03/27/2024 Active Mirtazapine 15 MG Oral Tablet (Remeron)Indicatio ns:Poor appetite TAKE 1 TAB BY MOUTH AT BEDTIME. TO HELP WITH APPETITE, AND MOOD. 90 Tablet 04/29/2024 Active Acyclovir 400 MG Oral Tablet (Zovirax)Indicatio [...] or without food.. 14 Capsule 06/24/2024 Active documented as of this encounter (statuses as of 06/26/2024) Active Problems Problem Noted Date Diagnosed Date [...] as of this encounter (statuses as of 06/26/2024) Resolved Problems Problem Noted Date Diagnosed Date [...] as of this encounter (statuses as of 06/26/2024) Immunizations Name Administration Dates Next Due COVID-19 [...] and already says he started his Revlimidtoday. [facility] pharmacy will be reaching out [...] Description 07/09/2024 12:00 PM EDT Laboratory Laboratory, [place] [address] [place] [address] [place] [address] [place] [address] 07/10/2024 9:00 AM EDT Pharmacy Pharmacy Hematology Oncology [facility] [address] [place] [address] [facility], [facility] Hem/Onc [address] [place] [address] 07/10/2024 12:45 PM EDT Hem/Onc Treatment Hematology/Oncology Treatment, [place] [address] [place] [phone] Tresa, Chair 2 Hem Onc [place] [address] [place] [address] 07/23/2024 12:00 PM EDT Laboratory Laboratory, [place] [address] [place] [facility] [place] [address] [facility] [address] [place] [address] 07/24/2024 11:00 AM EDT [facility] [address] [facility] [phone] Tresa, Chair 6 Hem Onc [facility] [address] [facility] [place] [address] 08/06/2024 12:00 PM EST Laboratory Laboratory, [place] [address] [place] [facility] [place] [phone] [facility] [address] [place] [facility] [place] [place] [address] 08/07/2024 9:30 AM EST Office Visit Hematology/Oncology [facility] [address] [facility] [place] [phone] Luann De La Cruz MD [address] [facility] [place] [address] 08/07/2024 10:00 AM EST Hem[facility] [address] [facility] [phone] Tresa, Chair 8 Hem Onc [facility] [address] [facility] [place] [address] 09/05/2024 1:15 PM EST Imaging Radiology [facility] 1st [facility] [address] [facility] [place] [address] 09/11/2024 1:30 PM EST Office Visit Vascular Surgery, [facility] [address] [facility] [place] [address] Darrin Lowe MD [address] [place] [address] Scheduled Procedures Name Priority Associated Diagnoses Date/Ti me COLONOSCOPY FLEXIBLE PROXIMAL DIAGNOSTIC Recall History of colon polyps Health Maintenance Due Date Last Done Comments Alpha-1 Antitrypsin 02/13/1970 Hepatitis C Screening 02/13/1970 Cologuard 02/13/1997 Fecal Occult Blood Test 02/13/1997 Sigmoidoscopy 02/13/1997 Adult Wellness Visit 02/13/2018 Colonoscopy 05/23/2020 05/23/2017 Colorectal Cancer Screening 05/23/2020 CKD PHOS USE SMARTSET 00077 2024 02/13/2023, 0 02/11/2021 COVID-19 Vaccine ( season) 2024 08/28/2021, 02/18/2021, 01/28/2021 Albumin/Creatinine Ratio 09/11/2024 09/11/2023 GFR 12/24/2024 06/25/2024, 04/26, 03/18/2024, Additional history exists Depression Screening 01/11/2025 01/12/2024, 07/12/2017 (Declined) CKD HGB USE SMARTSET 99377 06/25/202506/25, 06/25/2024, 05/22/2024, Additional history exists O2 [...] dose, Caution chemotherapy: Handle with gloves Given 06/26/2024 1:31 PM EDT 2.5 mg Abdomen Left Lower documented in this encounter Care Teams Catering Staff Member Relationship Specialty Start Date End Date Savanah Geiger DO [address] [place] [address] PCP - General Family Medicine 04/11/12 documented as of this encounter
--- OUTSIDE RECORDS SUMMARY | 2024-09-04 22:30 | External Medical Summary ---
Author Name Unknown Address Unknown Organization K01:[facility]ATORY [place] [address] [place] [address] Laboratory Report Ordering Provider Test Date Status MARY ANNE LAGUNA 06/25/2024 12:29:17 Final Observation Date Value Abnormality Reference (Units ) Status WBC, Total 06/25/2024 12:29:17 8.38 4.00-10.80 (K/uL) Final RBC 06/25/2024 12:29:17 3.60 4.50-5.25 (M/uL) Final Hemoglobin 06/25/2024 12:29:17 11.3 Below low normal 14.0-16.8 (g/dL) Final HCT 06/25/2024 12:29:17 35.9 Below low normal 40.0-48.4 (%) Final MCV 06/25/2024 12:29:17 99.7 82.0-99.5 (fL) Final MCH 06/25/2024 12:29:17 31.4 27.0-34.0 (pg) Final MCHC 06/25/2024 12:29:17 31.5 32.0-36.0 (g/dL) Final RDW 06/25/2024 12:29:17 15.1 11.5-15.5 (%) Final Platelets 06/25/2024 12:29:17 179 140-400 (K/uL) Final MPV 06/25/2024 12:29:17 11.4 6.6-11.1 (fL) Final Nucleated erythrocytes/100 leukocytes [Ratio] in Blood by Automated count 06/25/2024 12:29:17 0 <=0 (/100 WBCs) Final Performing Location LABORATORY [facility] [place] - [facility] [address] [place] [address]
--- OUTSIDE RECORDS SUMMARY | 2024-09-04 22:30 | External Medical Summary ---
Author Name Unknown Address Unknown Organization K01:[facility] [place] [address] [facility] [address] Laboratory Report Ordering Provider Test Date Status MARY ANNE LAGUNA 06/25/2024 12:29:17 Final Observation Date Value Abnormality Reference (Units ) Status [place] light chains, Free, Serum 06/25/2024 12:29:17 10.11 3.30-19.40 (mg/L) Final [place] light chains, free, Serum 06/25/2024 12:29:17 442.27 Above high normal 5.71-26.30 (mg/L) Final [facility]PA [place] [facility] RATIO 06/25/2024 12:29:17 0.02 Below low normal 0.26-1.65 Final Performing Location [facility] [place] [facility] [address] [facility] [place] [address]
--- OUTSIDE RECORDS SUMMARY | 2024-09-04 22:30 | External Medical Summary ---
Author Name Unknown Address Unknown Organization [id number]:LABORATORY [facility] [place] - [address] [facility] [place] [address] Laboratory Report Ordering Provider Test Date Status MARY ANNE LAGUNA 06/25/2024 12:29:17 Final Observation Date Value Abnormality Reference (Units ) Status BUN 06/25/2024 12:29:17 18 6-20 (mg/dL) Final Creatinine 06/25/2024 12:29:17 1.4 Above high normal 0.6-1.2 (mg/dL) Final Glomerular filtration rate/1.73 sq M.predicted [Volume Rate/Area] in Serum, Plasma or Blood by Creatinine-based formula (CKD-EPI) 06/25/2024 12:29:17 52 Below low normal >=60 (mL/min) Final eGFR is calculated based on the CKD-EPI 2020 equation. Sodium 06/25/2024 12:29:17 138 135-146 (m mol/L) Final Potassium 06/25/2024 12:29:17 4.2 3.5-5.1 (m mol/L) Final Cl 06/25/2024 12:29:17 102 98-107 (mm ol/L) Final CO2 06/25/2024 12:29:17 21 Below low normal 22- 32 (mmol/L) Final Anion gap 06/25/2024 12:29:17 15 7-15 (mmol /L) Final Glucose 06/25/2024 12:29:17 94 70-120 (mg /dL) Final Albumin 06/25/2024 12:29:17 4.2 3.8-5.0 (g /dL) Final AST (Aspartate aminotransferase) 06/25/2024 12:29:17 19 10-50 (U/L) Fin al Alk Phos 06/25/2024 12:29:17 118 35-130 (U/ L) Final Bilirubin, Total 06/25/2024 12:29:17 0.4 <=1 .2 (mg/dL) Final Calcium 06/25/2024 12:29:17 9.0 8.4-10.2 ( mg/dL) Final Protein 06/25/2024 12:29:17 7.6 6.0-8.3 (g /dL) Final ALT (Alanine aminotransferase) 06/25/2024 12:29:17 19 10-50 (U/L) Andrzej caal Performing Location LABORATORY [facility] [place] - [address] [facility] [address]
--- OUTSIDE RECORDS SUMMARY | 2024-09-04 22:30 | External Medical Summary | Summary of Care ---
Author Name Unknown Organization [facility] Address [address] [place] [address] Phone [phone] Care Team Providers Care Clinical Documentation Clerk Name Role Phone CaseySavanah harry Oswaldo JIMÉNEZ Primary Care Provider Reason for Visit * Reason Comments Medication Management Encounter Details Date Type Department Care Team (Late st Contact Info) Description 06/24/2024 1:30 PM EDT Pharmacy Pharmacy Hematology Oncology [facility] [address] [place] [address] [facility] [place] [facility] Hem/Onc [address] [place], [place] [id number] Multiple myeloma, remission status unspecified ([facility])* Allergies Active Allergy Reactions Criticality Noted Date Comments Calcium Carb-Cholecalciferol 016 documented as of this encounter (statuses as of 06/24/2024) Medications Medication Sig Dispensed Refills Start Date [...] Sublingual Tablet Sublingual (Nitrostat)Indicat ions:Atheroscleros is of [place] coronary artery of [place] heart [...] as of this encounter (statuses as of 06/24/2024) Active Problems Problem Noted Date Diagnosed Date [...] cancer 04/24/2020 Coronary artery disease invo lving [place] heart without angina pectoris 05/22/2019 Old myocardial infarct 12/06/2018 S/p bare metal coronary artery stent 01/12/2015 Tobacco use disorder 04/16/2012 HTN, goal below 130/80 2012 GERD (gastroesophageal reflux disease) 2 documented as of this encounter (statuses as of 06/24/2024) Resolved Problems Problem Noted Date Diagnosed Date Resolved Date Coronary artery disease of n ative artery of [place] heart with stable angina pectoris 08/21/2023 08/21/2023 Dehydration 02/01/2021 03/29/2022 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 Atherosclerosis of coronary artery without angina pectoris 09/14/2018 03/29/2022 ST elevation myocardial infarction (STEMI) 03/20/2017 12/06/2018 Lung nodule 10/14/2015 03/29/2022 ST elevation myocardial infa rction (STEMI) involving other coronary artery 05/19/2015 03/20/[address] elevation SD (STEMI) 01/12/201508/26 Myocardial infarction 02/03/20142017 COPD, moderate 08/27/2013 08/06/2020 Overview: Per COPD GOLD Classification Noncompliance 03/13/2013 03/21/2017 Anemia 05/03/2012 03/29/2022 COPD, severity to be determined 04/16/2012 08/27/2013 Dyslipidemia, goal LDL below 70 04/16/2012 03/29/2022 documented as of this encounter (statuses as of 06/24/2024) Immunizations Name Administration Dates Next Due COVID-19 mRNA, LNP-s, No Pre serve, 2-Dose Series (coin4ce) 08/28/2021,02/18/2021,01/28/2021 Pneumococcal Conjugate Vacc, 13 Valent (Prevnar) 07/09/2020 Pneumococcal Polysaccharide PPV23 (Pneumovax) 07/25/2022 Season Influenza, Quad, PF, Adjuvanted, 65+ Yrs, IM (FLUAD) 07/09/2020 Seasonal Influenza, High Dos e, Trivalent, PF, IM (Fluzone HD) 06/18/2024 Seasonal Influenza, Quadriva lent Hd (Fluzone Hd) 07/10/2023,06/23/2022,07/12/2021 Seasonal Influenza, Trivalen t, (IIV3), with Preserv, (Fluzone) 07/16/2013,07/10/2012 documented as of this encounter Social [...] of this encounter Progress Notes * Gwen Godfrey RPh - 06/24/2024 3:03 PM EDT Lenalidomide RX sent to [facility] to follow up 06/26 to assess pre-cycle labs and provide medication re-education Cindy SanchezD, BCOP Clinical Pharmacist, [facility] Oral Chemotherapy [facility] 06/24/2024, 3:03 PM Time Spent on Encounter: 6 - 10 minutes Encounter Group: Hematology Encounter Interventions Item Category: Oral Chemotherapy Lenalidomide Problem/Rationale: [place] Plan Review: Clinical Review Pharmacist Intervention(s): Medication prescribed Magnitude of Intervention: Modification of medication for asymtomatic patients (Level 2) * Fernanda Hernandez, supplier quality manager - 06/24/2024 11:24 AM EDT MEDICATION THERAPY MANAGEMENT LENALIDOMIDE TREATMENT STATUS NOTE Brian [place] [phone] Patient Phone Numbers Communication: Chart review Treatment: Medication: Lenalidomide (Revlimid) Indication/Staging/Diagnosis Code: multiple myeloma Dose: 10mg daily D1-14 every 21 days Administration: +/- food Start Date: TBD Primary President Ergonomic Consulting/Oncologist: Dr. De La Cruz Assessment and Plan: Per OV 06/18/24, pt to resume Vrd Per TE 06/18/24 addendum 06/19/24, pt has 14 caps of lenalidomide to restart therapy Pt requests labs day prior to treatment in [place] Yes/no Date Action Taken [place] plan entered? yes 06/19/24 Consent completed? yes 02/22/22 Intro/med rec completed? N/A Pt previously established with [facility] Precert completed? Yes 06/21/24 Approved w/[facility] Test claim completed? Yes 06/21/24 Rx to [facility] auth # [id number] valid for 30 days Financial assistance needed? NA Physician signature? Yes 06/24/24 Rx released? Education completed? [facility] will contact patient once med shipped/received to complete medication education Please refer to initial intake note for detailed review of regimen and patient- specific education points CINDY Shipley Tech Travel Rn Hematology Oncology Oral Chemotherapy Clinic Medication Therapy Disease Management [facility] 06/24/24,11:34 AM Time Spent on Encounter: 6 - 10 minutes Encounter Group: Hematology Encounter Interventions Item Category: Oral Chemotherapy Lenalidomide documented in this encounter Plan of Treatment Upcoming Encounters Date Type Department Care Team (Late st Contact Info) Description 06/25/2024 11:00 AM EDT Laboratory Laboratory, [place] [address] [place] [phone] [place], Laboratory [address] [place] [address] 06/26/2024 9:00 AM EDT Pharmacy Pharmacy Hematology Oncology [facility] [address] [place] [address] [facility] Hem/Onc [address] [place] [address] 06/26/2024 12:45 PM EDT Hem/Onc Treatment Hematology/Oncology Treatment, [place] [address] [place] [address] 07/31/2024 10:30 AM EST Office Visit Hematology/Oncology [facility] [address] [place] [address] Luann De La Cruz MD [address] [place] [address] 09/05/2024 1:15 PM EST Imaging Radiology [facility] [address]st [facility] [address] [facility] [place] [address] 09/11/2024 1:30 PM EST Office Visit Vascular Surgery, [facility] [address] [place] [address] Darrin Lowe MD [address] [place] [address] Scheduled Procedures Name Priority Associated Diagnoses Date/Ti me COLONOSCOPY FLEXIBLE PROXIMAL DIAGNOSTIC Recall History of colon polyps Health Maintenance Due Date Last Done Comments Alpha-1 Antitrypsin 02/13/1970 Hepatitis C Screening 02/13/1970 Cologuard 02/13/1997 Fecal Occult Blood Test 02/13/1997 Sigmoidoscopy 02/13/1997 Adult Wellness Visit 02/13/2018 Colonoscopy 05/23/2020 05/23/2017 Colorectal Cancer Screening 05/23/2020 CKD PHOS USE SMARTSET 76392 2024 02/13/2023, 0 02/11/2021 COVID-19 Vaccine ( season) 2024 08/28/2021, 02/18/2021, 01/28/2021 Albumin/Creatinine Ratio 09/11/2024 09/11/2023 GFR 11/22/2024 05/22/2024, 02/24, 02/06/2024, Additional history exists Depression Screening 01/11/2025 01/12/2024, 07/12/2017 (Declined) CKD HGB USE SMARTSET 34677 05/22/202505/22, 05/22/2024, 03/18/2024, Additional history exists O2 ASSESSMENT COMPLETED IN PAST YEAR FOR COPD 05/22/2025 05/22/2024 Pneumococcal Vaccine: 65+ Years Completed 07/25/2022, 07/09/2020 [...] Primary documented in this encounter Care Teams Clinical Documentation Clerk Relationship Specialty Start Date End Date Savanah Geiger DO [address] [place] [address] PCP - General Family Medicine 04/11/12 documented as of this encounter
--- OUTSIDE RECORDS SUMMARY | 2024-09-04 22:30 | External Medical Summary | Summary of Care ---
Author Name Unknown Organization [facility] Address [address] [place] [address] Phone [phone] Care Team Providers Care Grip Name Role Phone Savanah Geiger DO Primary Care Provider + [phone] Reason for Visit * Reason Comments Chemotherapy C1/D1 - Velcade * Episode Based Medications (Routine) - Authorized Specialty Diagnoses / Procedures Referred By Suki t Referred To Contact Diagnoses Multiple myeloma not having achieved remission (HCC) Encounter for antineoplastic chemotherapy Procedures NV INJECTION, BORTEZOMIB, 0.1MG Luann De La Cruz MD [address] [place] [place] [address] Anc Hem/Onc Sharlene [facility] DEPT CLOSED - 08/08/23 [address] [place] [address] Referral ID Status Reason Start Date Expiration Date V isits Requested Visits Authorized [id number] Authorized 06/18/2024 06/19/2025 999 999 Encounter Details Date Type Department Care Team (Latest Contact Info) Description 06/26/2024 12:45 PM EDT Hem/Onc Treatment Hematology/Oncolog y Treatment, [place] [address] [place] [address] Multiple myeloma not having achieved [...] Sublingual Tablet Sublingual (Nitrostat)Indicat ions:Atheroscleros is of [place] coronary artery of [place] heart without angina pectoris One tablet under [...] cancer 04/24/2020 Coronary artery disease invo lving [place] heart without angina pectoris 05/22/2019 Old myocardial infarct 12/06/2018 S/p bare metal coronary artery stent 01/12/2015 Tobacco use disorder 04/16/2012 HTN, goal below 130/80 2012 GERD (gastroesophageal reflux disease) 2 documented as of this encounter (statuses as of 06/26/2024) Resolved Problems Problem Noted Date Diagnosed Date Resolved Date Coronary artery disease of n ative artery of [place] heart with stable angina pectoris 08/21/2023 08/21/2023 Dehydration 02/01/2021 03/29/2022 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 * Evonne Lundbegr RN - 06/26/2024 2:38 PM EDT Chair 2. Patient here today for C1 of Velcade and Revlimid. He is restarting treatment again from about 11 months ago. Patient denies any questions today regarding his treatment and already says he started his Revlimidtoday. [facility] pharmacy will be reaching out to pt [...] Description 07/09/2024 12:00 PM EDT Laboratory Laboratory, [place] [address] [place] [address] [place] [address] [place] [address] 07/10/2024 9:00 AM EDT Pharmacy Pharmacy Hematology Oncology [facility] [address] [place] [address] [facility], [facility] Clinic Hem/Onc [address] [place] [address] 07/10/2024 12:45 PM EDT Hem/Onc Treatment Hematology/Oncology Treatment, [place] [address] [place] [phone] Tresa, Chair 2 Hem Onc [place] [address] [place] [address] 07/23/2024 12:00 PM EDT Laboratory Laboratory, [place] [address] [place] [facility] [address] [facility] [address] [place] [address] 07/24/2024 11:00 AM EDT [facility] [phone] Tresa, Chair 6 Hem Onc [facility] [address] [facility] [place] [address] 08/06/2024 12:00 PM EST Laboratory Laboratory, [place] [address] [place] [facility] [phone] [facility] [address] [place] [facility] [place] [address] 08/07/2024 9:30 AM EST Office Visit Hematology/Oncology [facility] [address] [facility] [place] [phone] Luann De La Cruz MD [address] [place] [place] [address] 08/07/2024 10:00 AM EST Hem[facility] [phone] Tresa, Chair 8 Hem Onc [facility] [address] [facility] [place] [address] 09/05/2024 1:15 PM EST Imaging Radiology [facility] [address] [facility] [place] [address] 09/11/2024 1:30 PM EST Office Visit Vascular Surgery, [facility] [address] [facility] [place] [address] Darrin Lowe MD [address] [place] [address] Scheduled Procedures Name Priority Associated Diagnoses Date/Ti me COLONOSCOPY FLEXIBLE PROXIMAL DIAGNOSTIC Recall History of colon polyps Health Maintenance Due Date Last Done Comments Alpha-1 Antitrypsin 02/13/1970 Hepatitis C Screening 02/13/1970 Cologuard 02/13/1997 Fecal Occult Blood Test 02/13/1997 Sigmoidoscopy 02/13/1997 Adult Wellness Visit 02/13/2018 Colonoscopy 05/23/2020 05/23/2017 Colorectal Cancer Screening 05/23/2020 CKD PHOS USE SMARTSET 72304 2024 02/13/2023, 0 02/11/2021 COVID-19 Vaccine ( season) 2024 08/28/2021, 02/18/2021, 01/28/2021 Albumin/Creatinine Ratio 09/11/2024 09/11/2023 GFR 12/24/2024 06/25/2024, 04/26, 03/18/2024, Additional history exists Depression Screening 01/11/2025 01/12/2024, 07/12/2017 (Declined) CKD HGB USE SMARTSET 74320 06/25/202506/25, 06/25/2024, 05/22/2024, Additional history exists O2 [...] Lower documented in this encounter Care Teams Grip Relationship Specialty Start Date End Date Savanah Geiger DO [address] [place] [address] PCP - General Family Medicine 04/11/12 documented as of this encounter
--- OUTSIDE RECORDS SUMMARY | 2024-09-04 22:30 | External Medical Summary | Summary of Care ---
Author Name Unknown Organization [facility] Address [address] [place] [address] Phone [phone] Care Team Providers Care Shipping Clerk Packing Name Role Phone CaseySavanah harry Oswaldo JIMÉNEZ Primary Care Provider Reason for Visit * Reason Comments Medication Management Encounter Details Date Type Department Care Team (Late st Contact Info) Description 06/26/2024 9:00 AM EDT Pharmacy Pharmacy Hematology Oncology [facility] [address] [place] [address] [facility], [facility] Hem/Onc [address] [place], [place] [phone] Multiple myeloma, remission status unspecified ([facility])* Allergies Active Allergy Reactions Criticality Noted Date [...] Sublingual Tablet Sublingual (Nitrostat)Indicat ions:Atheroscleros is of [place] coronary artery of [place]ajo heart [...] artery disease of n ative artery of [place] heart with stable angina pectoris 08/21/2023 08/21/2023 [...] mRNA, LNP-s, No Pre serve, 2-Dose Series ([employer]) 08/28/2021,02/18/2021,01/28/2021 Pneumococcal Conjugate Vacc, 13 Valent (Prevnar) [...] this encounter Progress Notes * Gwen Godfrey, [facility] - 06/26/2024 12:15 PM EDT MEDICATION THERAPY MANAGEMENT LENALIDOMIDE TREATMENT EDUCATION NOTE Brian Salinas [id number] Patient Phone Numbers Communication: Spoke to: Patient Treatment: Medication: Lenalidomide (Revlimid) Indication/Staging/Diagnosis Code: multiple myeloma Dose: 10mg daily D1-14 every 21 days Administration: +/- food Start Date: 06/26/24 Primary Multiple Sclerosis Nurse/Oncologist: Dr. De La Cruz Additional Therapy: Bortezomib Dexamethasone Supportive Care Meds: Ondansetron Prochlorperazine Prophylactic Meds: Acyclovir See anticoagulant below Relevant Chronic Medications: Category Medications Pertinent Notes Antihypertensives Metoprolol 50mg BID Per cardiology Anticoagulation ASA 81mg daily Pt hx Cycle Dates C1 06/26 - 07/09 C2 07/17 - 07/30 (anticipated) Treatment history: 04/01/22-07/28/22; 12/21/22-08/16/23: DaraVRd Interval History: Per chart review, pt to obtain q2wk labs Pt voiced concern about delay in obtained RX refill due to previous issues No other concerns Changes to medication list since last visit? No Upcoming surgeries or procedures? No Assessment and Plan: Follow up labs within parameters to restart treatment Provided brief education including dose, frequency, and side effects Advised pt lenalidomide RX sent to [facility] 06/24/24 and pt is able to contact them to set up RX refill to prevent C2 treatment delay. Pt replied with understanding MTM to follow up in 2 weeks to review q2wk labs Pt understands to contact office if issues arise in between follow up Assessment of compliance: compliant Assessment of adverse effects attributed to drug therapy: N/A Dose adjustment needed based on lab or adverse drug reaction? Yes, start treatment Follow up: 2 weeks Gwen Godfrey, PharmD, BCOP Clinical Pharmacist, [facility] Oral Chemotherapy [facility] 06/26/2024, 2:28 PM Monitoring Parameters: Estimated CrCl Serum creatinine: 1.4 mg/dL (H) 06/25/24 1229 Estimated creatinine clearance: 46.1 mL/min (A) Hepatitis [...] Range & Units 05/22/24 08:56 06/25/24 12:29 WBC 4.00 - 10.80 K/uL 7.46 8.38 RBC 4.50 - 5.25 M/uL 3.63 3.60 HGB 14.0 - 16.8 g/dL 11.1 (L) 11.3 (L) HCT 40.0 - 48.4 % 36.1 (L) 35.9 (L) MCV 82.0 - 99.5 fL 99.4 99.7 MCH 27.0 - 34.0 pg 30.6 31.4 MCHC 32.0 - 36.0 g/dL 30.7 31.5 RDW 11.5 - 15.5 % 15.5 15.1 PLT 140 - 400 K/uL 167 179 MPV 6.6 - 11.1 fL 10.3 11.4 CBC WITH WBC DIFFERENTIAL Rpt ! Rpt ! Absolute Neutrophils 1.80 - 7.70 K/uL 5.36 5.93 Latest Reference Range & Units 05/22/24 08:56 06/25/24 12:29 Albumin 3.8 - 5.0 g/dL 4.0 4.2 AST 10 - 50 U/L 17 19 ALT 10 - 50 U/L 15 19 Alkaline Phosphatase 35 - 130 U/L 116 118 Bilirubin, Total <=1.2 mg/dL 0.4 0.4 Time Spent on Encounter: 11 - 15 minutes Encounter Group: Hematology Encounter Interventions Item Category: Oral Chemotherapy Lenalidomide Problem/Rationale: Indication: Needs additional medication therapy - Untreated condition, - Synergistic therapy Education: Re-education Pharmacist Intervention(s): Education provided and Lab monitoring Magnitude of Intervention: Monitoring with direction (Level 1) documented in this encounter Plan of Treatment Upcoming Encounters Date Type Department Care Team (Late st Contact Info) Description 07/09/2024 12:00 PM EDT Laboratory Laboratory, [place] [address] [facility] [phone] [place], [facility] [address] [facility] [place] [phone] 07/10/2024 9:00 AM EDT Pharmacy Pharmacy Hematology Oncology [facility], [place] [address] [place] [address] [facility], [facility] Hem/Onc [address] [place] [address] 07/10/2024 12:45 PM EDT [facility] 200 [place] [phone] Tresa, Chair 2 Hem Onc Scenery [address] [facility] [place] [address] 07/23/2024 12:00 PM EDT Laboratory Laboratory, [address] [phone] [facility] [address] [place] [address] 07/24/2024 11:00 AM EDT Hem[facility]Onc [facility] [address] [facility] [phone] Tresa, Chair 6 Hem Onc Scenery [address] [facility] [place] [address] 08/06/2024 12:00 PM EST Laboratory Laboratory, [place] [address] [place] [phone] [facility] Laboratory [address] [place] [address] 08/07/2024 9:30 AM EST Office Visit Hematology/Oncology [facility] Tresa [place] [address] [place] [phone] Luann De La Cruz MD [address] [place] [address] 08/07/2024 10:00 AM EST Hem/Onc Treatment Hematology/Oncology Treatment, [place] [address] [place] [phone] Tresa, Chair 8 Hem Onc [place] [address] [place] [address] 09/05/2024 1:15 PM EST Imaging [facility] [address] [facility] [place] [address] 09/11/2024 1:30 PM EST Office Visit Vascular Surgery, [facility] 132 [facility] [place] [address] Darrin Lowe MD [address] [place] [address] Scheduled Procedures Name Priority Associated Diagnoses Date/Ti me COLONOSCOPY FLEXIBLE PROXIMAL DIAGNOSTIC Recall History of colon polyps Health Maintenance Due Date Last Done Comments Alpha-1 Antitrypsin 02/13/1970 Hepatitis C Screening 02/13/1970 Cologuard 02/13/1997 Fecal Occult Blood Test 02/13/1997 Sigmoidoscopy 02/13/1997 Adult Wellness Visit 02/13/2018 Colonoscopy 05/23/2020 05/23/2017 Colorectal Cancer Screening 05/23/2020 CKD PHOS USE SMARTSET 21750 2024 02/13/2023, 0 02/11/2021 COVID-19 Vaccine ( season) 2024 08/28/2021, 02/18/2021, 01/28/2021 Albumin/Creatinine Ratio 09/11/2024 09/11/2023 GFR 12/24/2024 06/25/2024, 04/26, 03/18/2024, Additional history exists Depression Screening 01/11/2025 01/12/2024, 07/12/2017 (Declined) CKD HGB USE SMARTSET 63228 06/25/202506/25, 06/25/2024, 05/22/2024, Additional history exists O2 [...] Primary documented in this encounter Care Teams Shipping Clerk Packing Relationship Specialty Start Date End Date Savanah Gieger DO [address] [place] [address] PCP - General Family Medicine 04/11/12 documented as of this encounter
--- OUTSIDE RECORDS SUMMARY | 2024-09-04 22:30 | External Medical Summary ---
Author Name Unknown Address Unknown Organization K01:[facility] [place] [address] [place] [address] Laboratory Report Ordering Provider Test Date Status MARY ANNE LAGUNA 06/25/2024 12:29:17 Final Baseline then every 2-3 thuy hs Observation Date Value Abnormality Reference (Units ) Status TSH 06/25/2024 12:29:17 2.54 0.27-4.20 (uIU/mL) Final Performing Location [facility] [place] [address] [place] [address]
--- OUTSIDE RECORDS SUMMARY | 2024-09-04 22:30 | External Medical Summary | Summary of Care ---
Author Name Unknown Organization [facility] Address [address] [place] [address] Phone [phone] Care Team Providers Care Egg And Spice Mixer Name Role Phone Savanah Geiger DO Primary Care Provider + [phone] Reason for Referral * Evaluate & Treat - Unlimited Visits (Within 10 days (routine)) - Authorized Specialty Diagnoses / Procedures Referred By Suki person Referred To Contact Pharmacist / Pharmacy Diagnoses Multiple myeloma not having achieved remission (HCC) Gwen Godfrey, [facility] [address] [place] [address] Referral ID Status Reason Start Date Expiration Date Visits Requested Visits Authorized [id number] Authorized Specialty Services Required 06/24/2024 99 99 Question Answer Referral Priority Within 10 days (routine) Where should this appointment be scheduled? [facility] Referring Provider Role: Specialist Specialty: Heme/Onc Reason for Referral: Oral Chemo Has consent been obtained for new oral chemo agent(s)? Yes Comments ORAL CHEMOTHERAPY [facility] MONITORING REFERRAL This patient is being referred to the Oral Chemotherapy Clinic for medication co-management. The planned duration of treatment is: Until disease progression/toxicity Please start oral chemotherapy: Once therapy has arrived from specialty pharmacy Oral Chemotherapy Monitoring will continue until one of the following discharge criteria has been met. The provider will be informed if any of these occur. 1. Disease progression. 2. Patient non-compliance 3. Compliance and tolerating treatment well without major toxicities with routine provider follow up. 4. Completion of therapy. Additional Comments: N/A By my signature, I understand that my patient will have their medication therapy managed by the [facility] Medication Therapy Disease Management Clinic (MTDM) per established policies, procedures, and protocols. I also certify that this referral may serve as an initiation of service for the management of drug therapy in the above noted patient. [facility] providers will be responsible for scheduling patient visits, obtaining appropriate laboratory studies, and adjusting medication management therapy per patient's need, in addition to those roles spelled out in the clinic policy, procedures, and drug management protocols. I understand that the service provided by the [facility] Clinic is voluntary and have informed patient that they can refuse the service at their discretion. I am aware that the [facility] Clinic will provide me with a copy of the patient encounter via my [email or web address]. I authorize the [facility] to carry out these activities on my behalf. I consider this program to be a necessary part of the patient's medical care. Encounter Details Date Type Department Care Team (Late st Contact Info) Description 06/19/2024 Orders Only Hematology/Oncology [facility] [place] [address] [facility] [place], [place] [address] Luann De La Cruz MD [address] [facility] [place], [place] [address] Multiple myeloma not having achieved remission (HCC)* [...] Sublingual Tablet Sublingual (Nitrostat)Indicat ions:Atheroscleros is of [place] coronary artery of [place] heart without angina pectoris One tablet [...] cancer 04/24/2020 Coronary artery disease invo lving [place] heart without angina pectoris 05/22/2019 Old myocardial infarct 12/06/2018 S/p bare metal coronary artery stent 01/12/2015 Tobacco use disorder 04/16/2012 HTN, goal below 130/80 2012 GERD (gastroesophageal reflux disease) 2 documented as of this encounter (statuses as of 06/24/2024) Resolved Problems Problem Noted Date Diagnosed Date Resolved Date Coronary artery disease of n ative artery of [place] heart with stable angina pectoris 08/21/2023 08/21/2023 Dehydration 02/01/2021 03/29/2022 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 Atherosclerosis of coronary artery without angina pectoris 09/14/2018 03/29/2022 ST elevation myocardial infarction (STEMI) 03/20/2017 12/06/2018 Lung nodule 10/14/2015 03/29/2022 ST elevation myocardial infa rction (STEMI) involving other coronary artery 05/19/2015 03/20/[address] elevation [place] (STEMI) 01/12/2015 1209/2017 Myocardial infarction 02/03/20142017 COPD, moderate 08/27/2013 08/06/2020 Overview: Per COPD GOLD Classification Noncompliance 03/13/2013 03/21/2017 Anemia 05/03/2012 03/29/2022 COPD, severity to be determined 04/16/2012 08/27/2013 Dyslipidemia, goal LDL below 70 04/16/2012 03/29/2022 documented as of this encounter (statuses as of 06/24/2024) Immunizations Name Administration Dates Next Due COVID-19 mRNA, LNP-s, No Pre serve, 2-Dose Series ([employer]) 08/28/2021,02/18/2021,01/28/2021 Pneumococcal Conjugate Vacc, 13 Valent (Prevnar) [...] Description 06/25/2024 11:00 AM EDT Laboratory Laboratory, [address] [phone] [place] [address] [place] [address] 06/26/2024 9:00 AM EDT Pharmacy Pharmacy Hematology Oncology [facility] [address] [place] [address] [facility], [facility] Hem/Onc [address] [place] [address] 06/26/2024 12:45 PM EDT Hem/Onc Treatment Hematology/Oncology Treatment, [place] [address] [place] [phone] 07/31/2024 10:30 AM EST Office Visit Hematology/Oncology [facility] [address] [place] [address] Luann De La Cruz MD [address] [place] [address] 09/05/2024 1:15 PM EST Imaging Radiology [facility] 1st [facility] [address] [place] [address] 09/11/2024 1:30 PM EST Office Visit Vascular Surgery, [facility] [address] [place] [address] Darrin Lowe MD [address] [place] [address] Scheduled Orders Name Type Priority Associated Diagnoses Orde r Schedule CBC WITH WBC DIFFERENTIAL Lab STAT Multiple myeloma not having achieved remission (HCC) Other, Please specify in Comments field for 12 Occurrences starting 06/24/2024 until 06/24/2025 COMPREHENSIVE METABOLIC PANEL Lab STAT Multiple myeloma not having achieved remission (HCC) Every Month for 12 Occurrences starting 06/24/2024 until 06/24/2025 TSH WITH FREE T4 IF INDICATED Lab STAT Multiple myeloma not having achieved remission (HCC) Every 3 Months for 4 Occurrences starting 06/24/2024 until 06/24/2025 Scheduled Procedures Name Priority Associated Diagnoses Date/Ti [...] Cancer Screening 05/23/2020 CKD PHOS USE SMARTSET 12545 2024 02/13/2023, 0 02/11/2021 COVID-19 Vaccine ( season) 2024 08/28/2021, 02/18/2021, 01/28/2021 Albumin/Creatinine Ratio 09/11/2024 09/11/2023 GFR 11/22/2024 05/22/2024, 02/24, 02/06/2024, Additional history exists Depression Screening 01/11/2025 01/12/2024, 07/12/2017 (Declined) CKD HGB USE SMARTSET 20915 05/22/202505/22, 05/22/2024, 03/18/2024, Additional history exists O2 [...] remission documented in this encounter Care Teams Egg And Spice Mixer Relationship Specialty Start Date End Date Savanah Geiger DO [address] [place], [place] [phone] PCP - General Family Medicine 04/11/12 documented as of this encounter
--- OUTSIDE RECORDS SUMMARY | 2024-09-04 22:30 | External Medical Summary | Summary of Care ---
Author Name Unknown Organization [facility] Address [address] [place] [address] Phone [phone] Care Team Providers Care Steam Room Attendant Name Role Phone Owen Baires DO Primary Care Provider Reason for Visit * Reason Onset Date Comments Medication Refill 06/27/2024 Encounter Details Date Type Department Care Team (Late st Contact Info) Description 06/27/2024 Refill [facility] [address] [place] [address] Owen Baires DO [address] [place] [address] Encounter for long-term (current) use of medications*; Chronic kidney disease, stage 3a (HCC) Allergies Active Allergy Reactions Criticality Noted Date Comments Calcium Carb-Cholecalciferol 016 documented as of this encounter (statuses as of 06/28/2024) Medications Medication Sig Dispensed Refills Start Date [...] Sublingual Tablet Sublingual (Nitrostat)Indica tions:Atheroscler osis of [place] coronary artery of [place] heart without angina pectoris One tablet under [...] as of this encounter (statuses as of 06/28/2024) Active Problems Problem Noted Date Diagnosed Date [...] cancer 04/24/2020 Coronary artery disease invo lving [place] heart without angina pectoris 05/22/2019 Old myocardial infarct 12/06/2018 S/p bare metal coronary artery stent 01/12/2015 Tobacco use disorder 04/16/2012 HTN, goal below 130/80 2012 GERD (gastroesophageal reflux disease) 2 documented as of this encounter (statuses as of 06/28/2024) Resolved Problems Problem Noted Date Diagnosed Date Resolved Date Coronary artery disease of n ative artery of [place] heart with stable angina pectoris 08/21/2023 08/21/2023 Dehydration 02/01/2021 03/29/2022 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 Atherosclerosis of coronary artery without angina pectoris 09/14/2018 03/29/2022 ST elevation myocardial infarction (STEMI) 03/20/2017 12/06/2018 Lung nodule 10/14/2015 03/29/2022 ST elevation myocardial infa rction (STEMI) involving other coronary artery 05/19/2015 03/20/[address] elevation [place] (STEMI) 01/12/2015 1209/2017 Myocardial infarction 02/03/20142017 COPD, moderate 08/27/2013 08/06/2020 Overview: Per COPD GOLD Classification Noncompliance 03/13/2013 03/21/2017 Anemia 05/03/2012 03/29/2022 COPD, severity to be determined 04/16/2012 08/27/2013 Dyslipidemia, goal LDL below 70 04/16/2012 03/29/2022 documented as of this encounter (statuses as of 06/28/2024) Immunizations Name Administration Dates Next Due COVID-19 mRNA, LNP-s, No Pre serve, 2-Dose Series ([employer]) 08/28/2021,02/18/2021,01/28/2021 Pneumococcal Conjugate Vacc, 13 Valent (Prevnar) [...] Notes * Telephone Encounter - Josiane Major formerly [facility] - 06/28/2024 4:06 PM EDT Signed Prescriptions: Disp Refills Pantoprazole Sodium 20 MG Oral Tablet Marla*90 Tab*1 Sig: Take 1Tablet by mouth in the morning. 30 minutes before the first meal of the day. Do not crush, split or chew the tablet.Authorizing Provider: OWEN BAIRES User: JOSIANE MAJOR------- * Telephone Encounter - Josiane Major RP - 06/28/2024 4:04 PM EDT Per refill protocol patient needs vitamin B-12 lab on file within the past 2 years while using PPIs. Lab work ordered. Patient may obtain with next routine labs. Thank you, Josiane Major, PharmD, ALLYN Clinical Pharmacist [facility] ([facility]) 06/28/24 4:05 PM [phone] documented in this encounter Plan of Treatment Upcoming Encounters Date Type Department Care Team (Late st Contact Info) Description 07/09/2024 12:00 PM EDT Laboratory Laboratory, [place] [address] [place] [phone] [place], [address] [address] 07/10/2024 9:00 AM EDT Pharmacy Pharmacy Hematology Oncology [facility] [address] [place] [address] [facility], [facility] Hem/Onc [address] [place] [address] 07/10/2024 12:45 PM EDT Hem/Onc Treatment Hematology/Oncology Treatment, [place] [address] [place] [address] Tresa, Chair 2 Hem Onc [address] [place] [address] 07/23/2024 12:00 PM EDT Laboratory Laboratory, [place] [address] [facility], [place] [phone] [place], Laboratory [address] [place] [facility] [address] 07/24/2024 11:00 AM EDT [facility] [phone] Tresa, Chair 6 Hem Onc [facility] [address] [place] [address] 08/06/2024 12:00 PM EST Laboratory Laboratory, [place] [address] [facility] [phone] [facility] [address] [place] [facility] [place] [facility] [address] 08/07/2024 9:30 AM EST Office Visit Hematology/Oncology [facility] 200 [facility] [place] [phone] Luann De La Cruz MD [address] [facility] [place] [address] 08/07/2024 10:00 AM EST [facility] [address] [facility] [phone] Tresa, Chair 8 Hem Onc [facility] [address] [facility] [place] [address] 09/05/2024 1:15 PM EST Imaging Radiology [facility] [address] [facility] [place] [address] 09/11/2024 1:30 PM EST Office Visit Vascular Surgery, [facility] [address] [facility] [place] [address] Darrin Lowe MD [address] [place] [address] Scheduled Orders Name Type Priority Associated Diagnoses Orde r Schedule VITAMIN B12 Lab Routine Encounter for long-term (current) use of medications Expected: 07/12/2024 (Approximate), Expires: 06/28/2025 ALBUMIN / CREATININE RATIO, URINE Lab Routine Encounter for long-term (current) use of medications Chronic kidney disease, stage 3a (HCC) Expected: 07/12/2024 (Approximate), Expires: 06/28/2025 PHOSPHORUS Lab Routine Encounter for long-term (current) use of medications Chronic kidney disease, stage 3a (HCC) Expected: 07/12/2024 (Approximate), Expires: 06/29/2025 Scheduled Procedures Name Priority Associated Diagnoses Date/Ti me COLONOSCOPY FLEXIBLE PROXIMAL DIAGNOSTIC Recall History of colon polyps Health Maintenance Due Date Last Done Comments Alpha-1 Antitrypsin 02/13/1970 Hepatitis C Screening 02/13/1970 Cologuard 02/13/1997 Fecal Occult Blood Test 02/13/1997 Sigmoidoscopy 02/13/1997 Adult Wellness Visit 02/13/2018 Colonoscopy 05/23/2020 05/23/2017 Colorectal Cancer Screening 05/23/2020 CKD PHOS USE SMARTSET 47910 2024 02/13/2023, 0 02/11/2021 COVID-19 Vaccine ( season) 2024 08/28/2021, 02/18/2021, 01/28/2021 Albumin/Creatinine Ratio 09/11/2024 09/11/2023 GFR 12/24/2024 06/25/2024, 04/26, 03/18/2024, Additional history exists Depression Screening 01/11/2025 01/12/2024, 07/12/2017 (Declined) CKD HGB USE SMARTSET 19599 06/25/202506/25, 06/25/2024, 05/22/2024, Additional history exists O2 [...] as of this encounter Visit Diagnoses Diagnosis Encounter for long-term (current) use of medications- Primary Encounter for long-term (current) use of other medications Chronic kidney disease, stage 3a (HCC) documented in this encounter Care Teams Steam Room Attendant Relationship Specialty Start Date End Date Owen Biares DO [address] [place] [address] PCP - General Family Medicine 04/11/12 documented as of this encounter
--- OUTSIDE RECORDS SUMMARY | 2024-09-04 22:30 | External Medical Summary ---
Author Name Unknown Address Unknown Organization K01:LABORATORY [facility] - [address] [facility] [place] [address] Laboratory Report Ordering Provider Test Date Status MARY ANNE LAGUNA 06/25/2024 12:29:17 Final Observation Date Value Abnormality Reference (Units ) Status SYNC LEUKOCYTES IN BLOOD BY AUTOMATED COUNT 06/25/2024 12:29:17 8.38 4.00-10.80 (K/uL) Final Segs 06/25/2024 12:29:17 70.8 40.0-75.0 (%) Final Lymphs % 06/25/2024 12:29:17 15.5 Below low normal 18.0-42.0 (%) Final Monos 06/25/2024 12:29:17 8.7 1.0-11.0 (%) Final Eosinophils 06/25/2024 12:29:17 3.3 0.0-6.0 (%) Final Basos 06/25/2024 12:29:17 0.5 0.0-2.0 (%) Final Immature Granulocyte, Percent 06/25/2024 12:29:17 1.2 0.0-2.0 (%) Final Absolute Segs 06/25/2024 12:29:17 5.93 1.80-7.70 (K/uL) Final Lymphs, absolute 06/25/2024 12:29:17 1.30 1.00-4.80 (K/ul) Final Monos, Abs 06/25/2024 12:29:17 0.73 0.00-1.10 (K/uL) Final Eos, Abs 06/25/2024 12:29:17 0.28 0.00-0.70 (K/uL) Final Basos, Abs 06/25/2024 12:29:17 0.04 0.00-0.20 (K/uL) Final Immature Granulocytes, Number 06/25/2024 12:29:17 0.10 0.00-0.20 (K/uL) Final Performing Location LABORATORY [facility] - [facility] [address] [place] [address]
--- OUTSIDE RECORDS SUMMARY | 2024-09-04 22:30 | External Medical Summary ---
Author Name Unknown Address Unknown Organization K01:[facility] [address] [facility] [address] [facility] [address] Laboratory Report Ordering Provider Test Date Status MARY ANNE LAGUNA 06/25/2024 12:29:17 Final Observation Date Value Abnormality Reference (Units) Status PARAPROTEIN NORMAL/ABNORMAL 06/25/2024 12:29:17 Abnormal Abnormal Normal Final Protein 06/25/2024 12:29:17 7.6 6.0-8.3 (g/dL) Final Albumin/Protein.total [Pure mass fraction] in Serum or Plasma by Electrophoresis 06/25/2024 12:29:17 3.40 3.30-4.40 (g/dL) Final Alpha 1 globulin/Protein.tota l [Pure mass fraction] in Serum or Plasma by Electrophoresis 06/25/2024 12:29:17 0.29 0.10-0.30 (g/dL) Final Alpha 2 globulin/Protein.tota l [Pure mass fraction] in Serum or Plasma by Electrophoresis 06/25/2024 12:29:17 0.97 0.60-1.00 (g/dL) Final Beta globulin/Protein.tota l [Pure mass fraction] in Serum or Plasma by Electrophoresis 06/25/2024 12:29:17 0.83 0.80-1.30 (g/dL) Final Gamma globulin/Protein.tota l [Pure mass fraction] in Serum or Plasma by Electrophoresis 06/25/2024 12:29:17 2.11 Above high normal 0.70-1.70 (g/dL) Final Monoclonal protein 06/25/2024 12:29:17 1.79 (g/dL) Final Protein Fractions [Interpretation] in Serum or Plasma by Electrophoresis Narrative 06/25/2024 12:29:17 Abnormal. A paraprotein is present that has been previously identified as a monoclonal IgG lambda. Final Performing Location LAB[facility] [place] [address] [facility] [address] [facility] [address]
--- OUTSIDE RECORDS SUMMARY | 2024-09-04 22:30 | External Medical Summary | Summary of Care ---
Author Name Unknown Organization [facility] Address [address] [place] [address] Phone [phone] Care Team Providers Care Video Network Engineer Name Role Phone Savanah Baires DO Primary Care Provider Reason for Visit * Reason Comments eRx-Medication Refill Encounter Details Date Type Department Care Team (Late st Contact Info) Description 06/27/2024 Refill Cardiology, [facility] [address] [facility] [place] [address] Nirav Baires DO [address] [facility] [address] Dyslipidemia, goal LDL below 100 Allergies Active Allergy Reactions Criticality Noted Date Comments Calcium Carb-Cholecalciferol 016 documented as of this encounter (statuses as of 07/03/2024) Medications Medication Sig Dispensed Refills Start Date End Date Status ASPIRIN ADULT LOW DOSE 81 MG TBECIndications [...] Sublingual Tablet Sublingual (Nitrostat)Asha cations:Atheros clerosis of [place] coronary artery of [place] heart without angina pectoris One tablet [...] a week 60 Tablet 3 4 Active Lenalidomide 10 MG Oral Capsule (Revlimid)Indic ations:Multiple myeloma not having achieved remission (HCC) Take 1 Capsule by mouth in the morning. For 14 days on, 7 days off of a 21 day cycle. Take medication same time every day and consistently with or without food.. 14 Capsule 4 Active Atorvastatin Calcium 80 MG Oral Tablet (Lipitor)Indica tions:Dyslipide tashi, goal LDL below 100 TAKE 1 TABLET BY MOUTH EVERY DAY IN THE MORNING 90 Tablet 4 Active Atorvastatin Calcium 80 MG Oral Tablet (Lipitor)Indica tions:Dyslipide tashi, goal LDL below 100 Take 1 Tablet by mouth in the morning. 90 Tablet 3 3 06/28/20 24 Discontinued Pantoprazole Sodium 20 MG Oral Tablet Delayed Release (Protonix) Take 1 Tablet by mouth in the morning. 30 minutes before the first meal of the day. Do not crush, split or chew the tablet. 90 Tablet 3 3 06/27/20 24 Discontinued(Ref ill) Mirtazapine 15 MG Oral Tablet (Remeron)Indica tions:Poor appetite TAKE 1 TAB BY MOUTH AT BEDTIME. TO HELP WITH APPETITE, AND MOOD. 90 Tablet 4 06/28/20 24 Discontinued documented as of this encounter (statuses as of 07/03/2024) Active Problems Problem Noted Date Diagnosed Date [...] cancer 04/24/2020 Coronary artery disease invo lving [place] heart without angina pectoris 05/22/2019 Old myocardial infarct 12/06/2018 S/p bare metal coronary artery stent 01/12/2015 Tobacco use disorder 04/16/2012 HTN, goal below 130/80 2012 GERD (gastroesophageal reflux disease) 2 documented as of this encounter (statuses as of 07/03/2024) Resolved Problems Problem Noted Date Diagnosed Date Resolved Date Coronary artery disease of n ative artery of [place] heart with stable angina pectoris 08/21/2023 08/21/2023 Dehydration 02/01/2021 03/29/2022 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 Atherosclerosis of coronary artery without angina pectoris 09/14/2018 03/29/2022 ST elevation myocardial infarction (STEMI) 03/20/2017 12/06/2018 Lung nodule 10/14/2015 03/29/2022 ST elevation myocardial infa rction (STEMI) involving other coronary artery 05/19/2015 03/20/[address] elevation [place] (STEMI) 01/12/201508/26 Myocardial infarction 02/03/20142017 COPD, moderate 08/27/2013 08/06/2020 Overview: Per COPD GOLD Classification Noncompliance 03/13/2013 03/21/2017 Anemia 05/03/2012 03/29/2022 COPD, severity to be determined 04/16/2012 08/27/2013 Dyslipidemia, goal LDL below 70 04/16/2012 03/29/2022 documented as of this encounter (statuses as of 07/03/2024) Immunizations Name Administration Dates Next Due COVID-19 mRNA, LNP-s, No Pre serve, 2-Dose Series ([employer]) 08/28/2021,02/18/2021,01/28/2021 Pneumococcal Conjugate Vacc, 13 Valent (Prevnar) [...] encounter Miscellaneous Notes * Telephone Encounter - Korin Castillo - 07/03/2024 4:21 PM EDT Received message from [facility] regarding patient needing an appointment. Patient was notified. Successfully contacted patient and provided [facility] message. * Telephone Encounter - Law Huntley [facility] - 06/28/2024 3:30 PM EDTSigned Prescriptions: Disp Refills Atorvastatin Calcium 80 MG Oral Tablet (Li*90 Tab*0 Sig: TAKE 1 TABLET BY MOUTH EVERY DAY IN THE MORNING Authorizing Provider: NIRAV BAIRES Ordering User: LAW HUNTLEY * Telephone Encounter - Law Huntley RPh - 06/28/2024 3:26 PM EDT Please contact patient so that an appointment can be scheduled with his CARDIOLOGY provider. Refillauthorized to hold patient over in the mean time. Last Visit: 12/16/2022 (in office), 10/21/2020 (telemedicine) Next Visit: Visit date not found Law Huntley, Pharm.D. Clinical Pharmacist Centralized Clinical Pharmacy Services ([facility]PS) 06/28/2024, 3:29 PM [phone] documented in this encounter Plan of Treatment Upcoming Encounters Date Type Department Care Team (Late st Contact Info) Description 07/09/2024 12:00 PM EDT Laboratory Laboratory, [address] [phone] [place] [address] [place] [address] 07/10/2024 9:00 AM EDT Pharmacy Pharmacy Hematology Oncology [facility] [address] [place] [address] [facility], [facility] Hem/Onc [address] [place] [address] 07/10/2024 12:45 PM EDT Hem/Onc Treatment Hematology/Oncology Treatment, [place] [address] [place] [phone] [place], Chair 2 Hem Onc Scenery [address] [place] [address] 07/23/2024 12:00 PM EDT Laboratory Laboratory, [place] [address] [facility], [place] [phone] [place], Laboratory [address] [facility], [place] [address] 07/24/2024 11:00 AM EDT Hem/Onc Treatment Hematology/Oncology Treatment, [place] [address] [facility] [phone] Tresa, Chair 6 Hem Onc Scenery [address] [place] [address] 08/06/2024 12:00 PM EST Laboratory Laboratory, [place] [address] [facility], [place] [phone] [place], Laboratory [address] [facility], [place] [address] 08/07/2024 9:30 AM EST Office Visit Hematology/Oncology Scenery [place] [address] [place] [phone] Luann De La Cruz MD [address] [place] [address] 08/07/2024 10:00 AM EST Hem/Onc Treatment Hematology/Oncology Treatment, [place] [address] [place] [phone] Tresa, Chair 8 Hem Onc Scenery [address] [place] [address] 09/05/2024 1:15 PM EST Imaging Radiology [address], [place] [address] [facility] [place] [address] 09/11/2024 1:30 PM EST Office Visit Vascular Surgery, [facility] [address] [place] [address] Darrin Lowe MD [address] [facility] [place] [address] Scheduled Procedures Name Priority Associated Diagnoses Date/Ti me COLONOSCOPY FLEXIBLE PROXIMAL DIAGNOSTIC Recall History of colon polyps Health Maintenance Due Date Last Done Comments Alpha-1 Antitrypsin 02/13/1970 Hepatitis C Screening 02/13/1970 Cologuard 02/13/1997 Fecal Occult Blood Test 02/13/1997 Sigmoidoscopy 02/13/1997 Adult Wellness Visit 02/13/2018 Colonoscopy 05/23/2020 05/23/2017 Colorectal Cancer Screening 05/23/2020 CKD PHOS USE SMARTSET 80383 2024 02/13/2023, 0 02/11/2021 COVID-19 Vaccine ( season) 2024 08/28/2021, 02/18/2021, 01/28/2021 Albumin/Creatinine Ratio 09/11/2024 09/11/2023 GFR 12/24/2024 06/25/2024, 04/26, 03/18/2024, Additional history exists Depression Screening 01/11/2025 01/12/2024, 07/12/2017 (Declined) CKD HGB USE SMARTSET 34526 06/25/202506/25, 06/25/2024, 05/22/2024, Additional history exists O2 [...] hyperlipidemia documented in this encounter Care Teams Video Network Engineer Relationship Specialty Start Date End Date Savanah Baires DO [address] [place] [address] PCP - General Family Medicine 04/11/12 documented as of this encounter
--- OUTSIDE RECORDS SUMMARY | 2024-09-04 22:30 | External Medical Summary ---
Author Name Unknown Address Unknown Organization K01:LABORATORY C - [address] [place] [address] Laboratory Report Ordering Provider Test Date Status MARY ANNE LAGUNA 06/25/2024 12:29:17 Final Observation Date Value Abnormality Reference (Units ) Status IgG 06/25/2024 12:29:17 2337 Above high normal 70 0-1600 (mg/dL) Final IgA 06/25/2024 12:29:17 77 70-400 (mg /dL) Final IgM 06/25/2024 12:29:17 9 Below low normal 40- 230 (mg/dL) Final Performing Location LABORATORY [facility] - [address] [place] [place] [address]
--- OUTSIDE RECORDS SUMMARY | 2024-09-04 22:30 | External Medical Summary | Summary of Care ---
Author Name Unknown Organization [facility] Address [address] [place] [address] Phone [phone] Care Team Providers Care Hepatologist Name Role Phone CaseySavanah harry Oswaldo JIMÉNEZ Primary Care Provider + [phone] Reason for Visit * Reason Comments Outpatient Testing Encounter Details Date Type Department Care Team (Late st Contact Info) Description 06/25/2024 11:00 AM EDT Laboratory Laboratory, [place] [address] [place] [address] [place], Laboratory [address] [place] [address] Multiple myeloma not having achieved remission (HCC) Allergies Active Allergy Reactions Criticality Noted Date Comments Calcium Carb-Cholecalciferol 016 documented as of this encounter (statuses as of 06/25/2024) Medications Medication Sig Dispensed Refills Start Date [...] Sublingual Tablet Sublingual (Nitrostat)Indicat ions:Atheroscleros is of [place] coronary artery of [place] heart without angina pectoris One tablet under [...] as of this encounter (statuses as of 06/25/2024) Active Problems Problem Noted Date Diagnosed Date [...] cancer 04/24/2020 Coronary artery disease invo lving [place] heart without angina pectoris 05/22/2019 Old myocardial infarct 12/06/2018 S/p bare metal coronary artery stent 01/12/2015 Tobacco use disorder 04/16/2012 HTN, goal below 130/80 2012 GERD (gastroesophageal reflux disease) 2 documented as of this encounter (statuses as of 06/25/2024) Resolved Problems Problem Noted Date Diagnosed Date Resolved Date Coronary artery disease of n ative artery of [place] heart with stable angina pectoris 08/21/2023 08/21/2023 [...] as of this encounter (statuses as of 06/25/2024) Immunizations Name Administration Dates Next Due COVID-19 mRNA, LNP-s, No Pre serve, 2-Dose Series ([employer]) 08/28/2021,02/18/2021,01/28/2021 Pneumococcal Conjugate Vacc, 13 Valent (Prevnar) [...] 9:00 AM EDT Pharmacy Pharmacy Hematology Oncology [place] [address] [place] [address] [facility], [facility] Hem/Onc [address] [place] [address] 06/26/2024 12:45 PM EDT Hem/Onc Treatment Hematology/Oncology Treatment, [place] [address] [facility] [place] [phone] 07/31/2024 10:30 AM EST Office Visit Hematology/Oncology [facility] [place] 200 [facility] [place] [phone] Luann De La Cruz MD 200 [facility] [place] [address] 09/05/2024 1:15 PM EST Imaging Radiology [facility] [address] [facility] [place] [address] 09/11/2024 1:30 PM EST Office Visit Vascular Surgery, [facility] [address] [facility] [place] [address] Darrin Lowe MD [address] [place] [address] Pending Results Name Type Priority Associated Diagnoses Date /Time CBC WITH WBC DIFFERENTIAL Lab STAT Multiple myeloma not having achieved remission (HCC) 06/25/2024 12:29 PM EDT COMPREHENSIVE METABOLIC PANEL Lab STAT Multiple myeloma not having achieved remission (HCC) 06/25/2024 12:29 PM EDT SERUM PROTEIN ELECTROPHORESIS REFLEX PROFILE Lab STAT Multiple myeloma not having achieved remission (HCC) 06/25/2024 12:29 PM EDT IMMUNOGLOBULIN QUANTITATIVE Lab STAT Multiple myeloma not having achieved remission (HCC) 06/25/2024 12:29 PM EDT SERUM FREE LIGHT CHAINS Lab STAT Multiple myeloma not having achieved remission (HCC) 06/25/2024 12:29 PM EDT TSH WITH FREE T4 IF INDICATED Lab STAT Multiple myeloma not having achieved remission (HCC) 06/25/2024 12:29 PM EDT CBC Lab STAT Multiple myeloma not having achieved remission (HCC) 06/25/2024 12:29 PM EDT DIFFERENTIAL, AUTOMATED Lab STAT Multiple myeloma not having achieved remission (HCC) 06/25/2024 12:29 PM EDT Scheduled Procedures Name Priority Associated Diagnoses Date/Ti me COLONOSCOPY FLEXIBLE PROXIMAL DIAGNOSTIC Recall History of colon polyps Health Maintenance Due Date Last Done Comments Alpha-1 Antitrypsin 02/13/1970 Hepatitis C Screening 02/13/1970 Cologuard 02/13/1997 Fecal Occult Blood Test 02/13/1997 Sigmoidoscopy 02/13/1997 Adult Wellness Visit 02/13/2018 Colonoscopy 05/23/2020 05/23/2017 Colorectal Cancer Screening 05/23/2020 CKD PHOS USE SMARTSET 07957 2024 02/13/2023, 0 02/11/2021 COVID-19 Vaccine ( season) 2024 08/28/2021, 02/18/2021, 01/28/2021 Albumin/Creatinine Ratio 09/11/2024 09/11/2023 GFR 11/22/2024 05/22/2024, 02/24, 02/06/2024, Additional history exists Depression Screening 01/11/2025 01/12/2024, 07/12/2017 (Declined) CKD HGB USE SMARTSET 76588 05/22/202505/22, 05/22/2024, 03/18/2024, Additional history exists O2 [...] remission documented in this encounter Care Teams Hepatologist Relationship Specialty Start Date End Date Savanah Geiger DO [address] [facility] [place] [address] PCP - General Family Medicine 04/11/12 documented as of this encounter
--- OUTSIDE RECORDS SUMMARY | 2024-09-04 22:30 | External Medical Summary | Summary of Care ---
Author Name Unknown Organization [facility] Address [address] [place] [address] Phone [phone] Care Team Providers Care General Claims Agent Name Role Phone Caseypiero Savanah Oswaldo JIMÉNEZ Primary Care Provider Reason for Visit * Reason Onset Date Comments Precert Future 06/18/2024 VRd Encounter Details Date Type Department Care Team (Late st Contact Info) Description 06/18/2024 Telephone Hematology/Oncology Treatment, [place] [address] [place] [address] Luann De La Cruz MD [address] [place] [address] Precert Future (VRd) Allergies Active Allergy Reactions Criticality Noted Date [...] Sublingual Tablet Sublingual (Nitrostat)Indica tions:Atheroscler osis of [place] coronary artery of [place] heart without angina pectoris One tablet under [...] the tablet. 90 Tablet 3 08/28/2023 Active Ipratropium-Albut clay 0.5-2.5 (3) MG/3ML Inhalation [...] 03/27/2024 Active Mirtazapine 15 MG Oral Tablet (Remeron)Indicati ons:Poor appetite TAKE 1 TAB BY MOUTH AT BEDTIME. TO HELP WITH APPETITE, AND MOOD. 90 Tablet 04/29/2024 Active Dexamethasone 4 MG Oral Tablet (Decadron)Indicat ions:Multiple myeloma (HCC) Take 40mg (10 tablets) once a week 40 Tablet 5 01/09/2023 4 Discontinue d(Refill) Acyclovir 400 MG Oral Tablet (Zovirax)Indicati ons:Multiple myeloma not having achieved remission (HCC) TAKE 1 TABLET BY MOUTH EVERY DAY IN THE MORNING AND BEFORE BEDTIME 180 Tablet 3 03/27/2023 4 Discontinue d(Refill) documented as of this encounter [...] cancer 04/24/2020 Coronary artery disease invo lving [place] heart without angina pectoris 05/22/2019 Old myocardial infarct 12/06/2018 S/p bare metal coronary artery stent 01/12/2015 Tobacco use disorder 04/16/2012 HTN, goal below 130/80 2012 GERD (gastroesophageal reflux disease) 2 documented as of this encounter (statuses as of 06/24/2024) Resolved Problems Problem Noted Date Diagnosed Date Resolved Date Coronary artery disease of n ative artery of [place] heart with stable angina pectoris 08/21/2023 08/21/2023 [...] mRNA, LNP-s, No Pre serve, 2-Dose Series ([employer]) 08/28/2021,02/18/2021,01/28/2021 Pneumococcal Conjugate Vacc, 13 Valent [...] encounter Miscellaneous Notes * Telephone Encounter - Yamel Garcia OSA - 06/21/2024 9:03 AM EDT Pt is scheduled and aware * Telephone Encounter - Sarahy Mcallister RN - 06/20/2024 3:42 PM EDT Referral entered. Scheduling: please call patient to schedule - labs day prior to treatment in [place] (patient requested this already) - 1 hour appt "C1D1 velcade" (Jono) Patient likes labs on Tuesdays, treatment on Wednesdays Thanks! * Addendum Note - Sarahy Mcallister RN - 06/19/2024 11:04 AM EDTAddended by: SARAHY MCALLISTER on: 06/19/2024 11:04 AM Modules accepted: Orders * Telephone Encounter - Sarahy Mcallister RN - 06/19/2024 10:58 AM EDT Called patient - he confirmed that he is taking acyclovir BID and baby aspirin daily - he has some dexamethasone at home from treatment before, plans to take 20mg every Monday - he states that he still has 14 capsules of revlimid at home Reviewed that we are still waiting for insurance auth, will contact him to schedule once ready. He would like labs the day before treatment in [place], likes treatment every Monday. MTM: FYI * Telephone Encounter - Sarahy Mcallister RN - 06/18/2024 3:53 PM EDT Order received to resume VRd. [place] plan built. Waiting for auth. MTM aware. Consent signed 02/22/22. Patient already registered with [employer]. Pended new prescriptions for acyclovir and decadron. Will need to verify that patient is aware of prescriptions as well as confirm he is still taking a baby aspirin daily. documented in this encounter Plan of Treatment Upcoming Encounters Date Type Department Care Team (Late st Contact Info) Description 06/24/2024 1:30 PM EDT Pharmacy Pharmacy Hematology Oncology [place] [address] [place] [address] [facility] [place] Hem[facility]Onc [address] [place] [address] 06/25/2024 11:00 AM EDT Laboratory Laboratory, [place] [address] [place] [phone] [place], Laboratory [address] [place], [place] [id number] 06/26/2024 12:45 PM EDT Hem/Onc Treatment Hematology/Oncology Treatment, [place] [address] [place] [phone] 07/31/2024 10:30 AM EST Office Visit Hematology/Oncology [facility] [address] [place] [address] Luann De La Cruz MD [address] [place] [address] 09/05/2024 1:15 PM EST Imaging [facility] [address] [place] [address] 09/11/2024 1:30 PM EST Office Visit Vascular Surgery, [facility] [address] [place] [address] Darrin Lowe MD [address] [place] [address] Scheduled Orders Name Type Priority Associated Diagnoses Orde r Schedule CBC WITH WBC DIFFERENTIAL Lab STAT Multiple myeloma not having achieved remission (HCC) Every 2 Weeks for 26 Occurrences starting 06/19/2024 until 06/19/2025 COMPREHENSIVE METABOLIC PANEL Lab STAT Multiple myeloma not having achieved remission (HCC) Every 2 Weeks for 26 Occurrences starting 06/19/2024 until 06/19/2025 SERUM PROTEIN ELECTROPHORESIS REFLEX PROFILE Lab STAT Multiple myeloma not having achieved remission (HCC) Every Month for 12 Occurrences starting 06/19/2024 until 06/19/2025 IMMUNOGLOBULIN QUANTITATIVE Lab STAT Multiple myeloma not having achieved remission (HCC) Every Month for 12 Occurrences starting 06/19/2024 until 06/19/2025 SERUM FREE LIGHT CHAINS Lab STAT Multiple myeloma not having achieved remission (HCC) Every Month for 12 Occurrences starting 06/19/2024 until 06/19/2025 Scheduled Procedures Name Priority Associated Diagnoses Date/Ti me COLONOSCOPY FLEXIBLE PROXIMAL DIAGNOSTIC Recall History of colon polyps Health Maintenance Due Date Last Done Comments Alpha-1 Antitrypsin 02/13/1970 Hepatitis C Screening 02/13/1970 Cologuard 02/13/1997 Fecal Occult Blood Test 02/13/1997 Sigmoidoscopy 02/13/1997 Adult Wellness Visit 02/13/2018 Colonoscopy 05/23/2020 05/23/2017 Colorectal Cancer Screening 05/23/2020 CKD PHOS USE SMARTSET 95772 2024 02/13/2023, 0 02/11/2021 COVID-19 Vaccine ( season) 2024 08/28/2021, 02/18/2021, 01/28/2021 Albumin/Creatinine Ratio 09/11/2024 09/11/2023 GFR 11/22/2024 05/22/2024, 02/24, 02/06/2024, Additional history exists Depression Screening 01/11/2025 01/12/2024, 07/12/2017 (Declined) CKD HGB USE SMARTSET 40463 05/22/202505/22, 05/22/2024, 03/18/2024, Additional history exists O2 [...] remission documented in this encounter Care Teams General Claims Agent Relationship Specialty Start Date End Date Savanah Geiger DO [address], [place] [phone] PCP - General Family Medicine 04/11/12 documented as of this encounter
--- OUTSIDE RECORDS SUMMARY | 2024-09-04 22:30 | External Medical Summary | Summary of Care ---
Author Name Unknown Organization [facility] Address [address] [place] [address] Phone [phone] Care Team Providers Care Associate Professor Of Music Name Role Phone Owen Baires DO Primary Care Provider Reason for Visit * Reason Comments eRx-Medication Refill Encounter Details Date Type Department Care Team (Late st Contact Info) Description 06/27/2024 Refill [facility] [address] [place] [address] Owen Baires DO [address] [place] [address] Poor appetite Allergies Active Allergy Reactions Criticality Noted Date [...] ultiple myeloma not having achieved remission (HCC),Hypocalce tsahi Take 1 Tablet by mouth in the morning. 90 Tablet 1 2 Active Probiotic Acidophilus Oral Capsule Take by mouth daily. Active Nitroglycerin 0.4 MG Sublingual Tablet Sublingual (Nitrostat)Asha cations:Atheros clerosis of [place] coronary artery of [place] heart without angina pectoris One tablet under [...] or without food.. 14 Capsule 4 Active Mirtazapine 15 MG Oral Tablet [...] cancer 04/24/2020 Coronary artery disease invo lving [place] heart without angina pectoris 05/22/2019 Old myocardial infarct 12/06/2018 S/p bare metal coronary artery stent 01/12/2015 Tobacco use disorder 04/16/2012 HTN, goal below 130/80 2012 GERD (gastroesophageal reflux disease) 2 documented as of this encounter (statuses as of 06/28/2024) Resolved Problems Problem Noted Date Diagnosed Date Resolved Date Coronary artery disease of n ative artery of [place] heart with stable angina pectoris 08/21/2023 08/21/2023 [...] mRNA, LNP-s, No Pre serve, 2-Dose Series ([employer]) 08/28/2021,02/18/2021,01/28/2021 Pneumococcal Conjugate Vacc, 13 Valent [...] Notes * Telephone Encounter - Josiane Major [facility] - 06/28/2024 3:59 PM EDT Signed Prescriptions: Disp Refills Mirtazapine 15 MG Oral Tablet (Remeron) 90 Tab*3 Sig: TAKE 1 TABBY MOUTH AT BEDTIME. TO HELP WITH APPETITE, AND MOOD.Authorizing Provider: OWEN BAIRES User: JOSIANE MAJOR documented in this encounter Plan of Treatment Upcoming Encounters Date Type Department Care Team (Late st Contact Info) Description 07/09/2024 12:00 PM EDT Laboratory Laboratory, [place] [address] [place] [facility] [place] [phone] [place], Laboratory [address] [place] [address] 07/10/2024 9:00 AM EDT Pharmacy Pharmacy Hematology Oncology [address] [address] [facility], [facility] Hem/Onc [facility] [place] [address] 07/10/2024 12:45 PM EDT Hem/Onc Treatment Hematology/Oncology Treatment, [address], [place] [phone] Tresa, Chair [address] Hem On[address] [place] [address] 07/23/2024 12:00 PM EDT Laboratory [facility], [place] [address] [facility] [phone] [place], Laboratory [address] [place] [facility] [place] [address] 07/24/2024 11:00 AM EDT Hem/Onc Treatment Hematology/Oncology Treatment, [address], [place] [phone] Tresa, Chair 6 Hem Onc [address] [place] [address] [place] [address] 08/06/2024 12:00 PM EST Laboratory [facility], [place] [address] [facility] [phone] [place], Laboratory [address] [place] [address] 08/07/2024 9:30 AM EST Office Visit Hematology/Oncology [facility] [address] [place] [phone] Luann De La Cruz MD [address] [place] [address] 08/07/2024 10:00 AM EST Hem[facility] [address] [place] [phone] Tresa, Chair 8 Hem Onc [place] [address] [place] [address] 09/05/2024 1:15 PM EST Imaging Radiology [facility]st [facility] [address] [place] [address] 09/11/2024 1:30 PM EST Office Visit Vascular Surgery, [facility] [address] [place] [address] Darrin Lowe MD [address] [place] [address] Scheduled Procedures Name Priority Associated Diagnoses Date/Ti me COLONOSCOPY FLEXIBLE PROXIMAL DIAGNOSTIC Recall History of colon polyps Health Maintenance Due Date Last Done Comments Alpha-1 Antitrypsin 02/13/1970 Hepatitis C Screening 02/13/1970 Cologuard 02/13/1997 Fecal Occult Blood Test 02/13/1997 Sigmoidoscopy 02/13/1997 Adult Wellness Visit 02/13/2018 Colonoscopy 05/23/2020 05/23/2017 Colorectal Cancer Screening 05/23/2020 CKD PHOS USE SMARTSET 17755 2024 02/13/2023, 0 02/11/2021 COVID-19 Vaccine ( season) 2024 08/28/2021, 02/18/2021, 01/28/2021 Albumin/Creatinine Ratio 09/11/2024 09/11/2023 GFR 12/24/2024 06/25/2024, 04/26, 03/18/2024, Additional history exists Depression Screening 01/11/2025 01/12/2024, 07/12/2017 (Declined) CKD HGB USE SMARTSET 26023 06/25/202506/25, 06/25/2024, 05/22/2024, Additional history exists O2 [...] as of this encounter Visit Diagnoses Diagnosis Poor appetite Anorexia documented in this encounter Care Teams Associate Professor Of Music Relationship Specialty Start Date End Date Owen Baires DO [address] [place] [address] PCP - General Family Medicine 04/11/12 documented as of this encounter
--- OUTSIDE RECORDS SUMMARY | 2024-09-04 22:31 | External Medical Summary | Summary of Care ---
Author Name Unknown Organization [facility] Address [address] [place] [address] Phone [phone] Care Team Providers Care Biblical Languages Professor Name Role Phone Caseypiero Savanah Oswaldo JIMÉNEZ Primary Care Provider Reason for Visit * Reason Onset Date Comments Precert Future 06/18/2024 VRd Encounter Details Date Type Department Care Team (Late st Contact Info) Description 06/18/2024 Telephone Hematology/Oncology Treatment, [place] [address] [place] [address] Luann De La Cruz MD [address] [place] [address] Precert Future (VRd) Allergies Active Allergy Reactions Criticality Noted Date Comments Calcium Carb-Cholecalciferol 016 documented as of this encounter (statuses as of 06/19/2024) Medications Medication Sig Dispensed Refills Start Date [...] Sublingual Tablet Sublingual (Nitrostat)Indica tions:Atheroscler osis of [place] coronary artery of [place] heart without angina pectoris One tablet under [...] as of this encounter (statuses as of 06/19/2024) Active Problems Problem Noted Date Diagnosed Date Infrarenal abdominal aortic aneurysm (AAA) witho ut [...] cancer 04/24/2020 Coronary artery disease invo lving [place] heart without angina pectoris 05/22/2019 Old myocardial infarct 12/06/2018 S/p bare metal coronary artery stent 01/12/2015 Tobacco use disorder 04/16/2012 HTN, goal below 130/80 2012 GERD (gastroesophageal reflux disease) 2 documented as of this encounter (statuses as of 06/19/2024) Resolved Problems Problem Noted Date Diagnosed Date Resolved Date Coronary artery disease of n ative artery of [place] heart with stable angina pectoris 08/21/2023 08/21/2023 [...] as of this encounter (statuses as of 06/19/2024) Immunizations Name Administration Dates Next Due COVID-19 mRNA, LNP-s, No Pre serve, 2-Dose Series ([email or web address]) 08/28/2021,02/18/2021,01/28/2021 Pneumococcal Conjugate Vacc, 13 Valent (Prevnar) [...] encounter Miscellaneous Notes * Addendum Note - Sarahy Mcallister RN [...] like labs the day before treatment in [place], likes treatment every Monday. MTM: FYI * Telephone Encounter - Sarahy Mcallister RN - 06/18/2024 3:53 PM EDT Order received to resume VRd. [place] plan built. Waiting for auth. MTM aware. Consent signed 02/22/22. Patient already registered with [employer]. Pended new prescriptions for acyclovir and decadron. Will need to verify that patient is aware of prescriptions as well as confirm he is still taking a baby aspirin daily. documented in this encounter Plan of Treatment Upcoming Encounters Date Type Department Care Team (Late st Contact Info) Description 06/24/2024 1:30 PM EDT Pharmacy Pharmacy Hematology Oncology [facility] [address] [place] [address] [facility], [facility] Hem/Onc [address] [place] [address] 07/31/2024 10:30 AM EST Office Visit Hematology/Oncology [facility] [address] [facility] [place] [address] Luann De La Cruz MD [address] [facility] [place] [address] 09/05/2024 1:15 PM EST Imaging Radiology [facility] 1st [facility] [address] [facility] [place] [address] 09/11/2024 1:30 PM EST Office Visit Vascular Surgery, [facility] [address] [facility] [place] [address] Darrin Lowe MD [address] [place] [address] Scheduled Orders Name Type Priority Associated Diagnoses [...] Cancer Screening 05/23/2020 CKD PHOS USE SMARTSET 26165 2024 02/13/2023, 0 02/11/2021 COVID-19 Vaccine ( season) 2024 08/28/2021, 02/18/2021, 01/28/2021 Albumin/Creatinine Ratio 09/11/2024 09/11/2023 GFR 11/22/2024 05/22/2024, 02/24, 02/06/2024, Additional history exists Depression Screening 01/11/2025 01/12/2024, 07/12/2017 (Declined) CKD HGB USE SMARTSET 19834 05/22/202505/22, 05/22/2024, 03/18/2024, Additional history exists O2 [...] remission documented in this encounter Care Teams Biblical Languages Professor Relationship Specialty Start Date End Date Savanah Geiger DO [address] [place] [address] PCP - General Family Medicine 04/11/12 documented as of this encounter
--- OUTSIDE RECORDS SUMMARY | 2024-09-04 22:31 | External Medical Summary | Summary of Care ---
Author Name Unknown Organization [facility] Address [address] [place] [address] Phone [phone] Care Team Providers Care Cyber Workforce Developer And Manager Name Role Phone Caseypeiro Savanah Oswaldo JIMÉNEZ Primary Care Provider Reason for Visit * Reason Onset Date Comments Precert Future 06/18/2024 VRd Encounter Details Date Type Department Care Team (Late st Contact Info) Description 06/18/2024 Telephone Hematology/Oncology Treatment, [place] [address] [place] [address] Luann De La Cruz MD [address] [place] [address] Precert Future (VRd) Allergies Active Allergy Reactions Criticality Noted Date Comments Calcium Carb-Cholecalciferol 016 documented as of this encounter (statuses as of 06/18/2024) Medications Medication Sig Dispensed Refills Start Date [...] Sublingual Tablet Sublingual (Nitrostat)Indica tions:Atheroscler osis of [place] coronary artery of [place] heart without angina pectoris One tablet under [...] as of this encounter (statuses as of 06/18/2024) Active Problems Problem Noted Date Diagnosed Date [...] cancer 04/24/2020 Coronary artery disease invo lving [place] heart without angina pectoris 05/22/2019 Old myocardial infarct 12/06/2018 S/p bare metal coronary artery stent 01/12/2015 Tobacco use disorder 04/16/2012 HTN, goal below 130/80 2012 GERD (gastroesophageal reflux disease) 2 documented as of this encounter (statuses as of 06/18/2024) Resolved Problems Problem Noted Date Diagnosed Date Resolved Date Coronary artery disease of n ative artery of [place] heart with stable angina pectoris 08/21/2023 08/21/2023 [...] as of this encounter (statuses as of 06/18/2024) Immunizations Name Administration Dates Next Due COVID-19 mRNA, LNP-s, No Pre serve, 2-Dose Series ([email or web address]) 08/28/2021,02/18/2021,01/28/2021 Pneumococcal Conjugate Vacc, 13 Valent (Prevnar) [...] PM EDT Order received to resume VRd. [place] plan built. Waiting for auth. [facility] aware. Consent signed 02/22/22. Patient already registered with [employer]. Pended new prescriptions for acyclovir and decadron. Will need to verify that patient is aware of prescriptions as well as confirm he is still taking a baby aspirin daily. documented in this encounter Plan of Treatment Upcoming Encounters Date Type Department Care Team (Late st Contact Info) Description 06/19/2024 1:00 PM EDT Pharmacy Pharmacy Hematology Oncology [facility] [address] [place] [address] [facility] Hem/Onc [address] [place] [address] 07/31/2024 10:30 AM EST Office Visit Hematology/Oncology [place] [address] [place] [address] Luann De La Cruz MD [address] [place] [address] 09/05/2024 1:15 PM EST Imaging Radiology [facility] 1st [facility] [address] [facility] [place] [address] 09/11/2024 1:30 PM EST Office Visit Vascular Surgery, [facility] [address] [facility] [place] [address] Darrin Lowe MD [address] [place] [address] Scheduled Procedures Name Priority Associated Diagnoses Date/Ti me COLONOSCOPY FLEXIBLE PROXIMAL DIAGNOSTIC Recall History of colon polyps Health Maintenance Due Date Last Done Comments Alpha-1 Antitrypsin 02/13/1970 Hepatitis C Screening 02/13/1970 Cologuard 02/13/1997 Fecal Occult Blood Test 02/13/1997 Sigmoidoscopy 02/13/1997 Adult Wellness Visit 02/13/2018 Colonoscopy 05/23/2020 05/23/2017 Colorectal Cancer Screening 05/23/2020 CKD PHOS USE SMARTSET 13305 2024 02/13/2023, 0 02/11/2021 COVID-19 Vaccine ( season) 2024 08/28/2021, 02/18/2021, 01/28/2021 Albumin/Creatinine Ratio 09/11/2024 09/11/2023 GFR 11/22/2024 05/22/2024, 02/24, 02/06/2024, Additional history exists Depression Screening 01/11/2025 01/12/2024, 07/12/2017 (Declined) CKD HGB USE SMARTSET 51583 05/22/202505/22, 05/22/2024, 03/18/2024, Additional history exists O2 [...] filedocumented as of this encounter Care Teams Cyber Workforce Developer And Manager Relationship Specialty Start Date End Date Savanah Geiger DO [address] [place] [address] PCP - General Family Medicine 04/11/12 documented as of this encounter
--- OUTSIDE RECORDS SUMMARY | 2024-09-04 22:31 | External Medical Summary | Summary of Care ---
Author Name Unknown Organization [facility] Address [address] [place] [address] Phone [phone] Care Team Providers Care Distillery Worker General Name Role Phone CaseySavanah harry Oswaldo JIMÉNEZ Primary Care Provider [phone] Reason for Visit * Reason Onset Date Comments Follow Up Consultation Medication Administration 06/18/2024 Flu an d/or Pneumo Inj Encounter Details Date Type Department Care Team (Late st Contact Info) Description 06/18/2024 3:30 PM EDT Office Visit Hematology/Oncology [facility] [address] [place] [phone] Luann De La Cruz MD [address] 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 05/22/2019 Old myocardial infarct 12/06/2018 S/p bare metal coronary artery stent 01/12/2015 Tobacco use disorder 04/16/2012 HTN, goal below 130/80 2012 GERD (gastroesophageal reflux disease) 2 documented as of this encounter (statuses as of 06/18/2024) Resolved Problems Problem Noted Date Diagnosed Date Resolved Date Coronary artery disease of n ative artery of [place] heart with stable angina pectoris 08/21/2023 08/21/2023 Dehydration 02/01/2021 03/29/2022 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 Atherosclerosis of coronary artery without angina pectoris 09/14/2018 03/29/2022 ST elevation myocardial infarction (STEMI) 03/20/2017 12/06/2018 Lung nodule 10/14/2015 03/29/2022 ST elevation myocardial infa rction (STEMI) involving other coronary artery 05/19/2015 03/20/[address] elevation [place] (STEMI) 01/12/201508/26 Myocardial infarction 02/03/20142017 COPD, moderate 08/27/2013 08/06/2020 Overview: Per COPD GOLD Classification Noncompliance 03/13/2013 03/21/2017 Anemia 05/03/2012 03/29/2022 COPD, severity to be determined 04/16/2012 08/27/2013 Dyslipidemia, goal LDL below 70 04/16/2012 03/29/2022 documented as of this encounter (statuses as of 06/18/2024) Immunizations Name Administration Dates Next Due COVID-19 mRNA, LNP-s, No Pre serve, 2-Dose Series ([employer]) 08/28/2021,02/18/2021,01/28/2021 Pneumococcal Conjugate Vacc, 13 Valent [...] Sign Reading Time Taken Comments Blood Pressure 143/83 06/18/2024 3:23 PM EDT Pulse - - Temperature 36.3 C (97.4 F) 06/18/2024 3:23 PM ED T Respiratory Rate - - Oxygen Saturation - - Inhaled Oxygen Concentration - - Weight 78.9 kg (174 lb) 06/18/2024 3:23 PM EDT Height - - Body Mass Index 26.46 09/27/2023 9:59 AM EST documented in this encounter Patient Instructions * Patient Instructions* Mami Tapia, MEDICAL OFFICE ADMINISTRATOR - 06/18/2024 3:55 PM EDT ~~PATIENT INSTRUCTIONS FOR FLU SHOT~~ Possible side effects of influenza vaccine, (flu shot), are usually mild and include: 1. Soreness or redness at injection site 2. Low grade fever 3. Body aches You may use Tylenol/Acetaminophen as needed for these symptoms. LET YOUR DOCTOR KNOW IMMEDIATELY IF YOU HAVE DIFFICULTY BREATHING OR SWALLOWING, EXPERIENCE ITCHINGOF FEET OR HANDS, HAVE SWELLING OF EYES, FACE OR INSIDE OF NOSE. documented in this encounter Progress Notes * Mami Tapia CMA - 06/18/2024 3:54 PM EDT PRE - ADMINISTRATION DOCUMENTATION Are you experiencing any cold symptoms or fever? No Have you had Guillain-Fullerton Syndrome (an illness that causes paralysis) within the last 6 weeks? No Have you had the flu shot in the past? YES Have you ever had a reaction to the flu shot? No Mami Tapia CMA, 06/18/2024 3:54 PM Immunization Administration Documentation Time Out Procedure Performed: Yes Patient Identified (Ask Name/Date of ): Yes Does the patient have a fever greater than 101 degrees today? No Patient allergic to latex? No VFC Stock: Yes, Does this patient qualify for immunization through the [facility] program because he/she (check only one): Yes-is enrolled in Medicaid Immunization(s) verified: Yes, Immunization Name: Flu, VIS Sheet(s) given: Yes Verified Side and Site: Yes Verified Shot(s) with Parent(s)/Patient: Yes * Luann De La Cruz MD - 06/18/2024 3:33 PM EDT Outpatient Consult Note Data Source: Patient, Epic record. Data Source: Patient, Epic record. 06/18/2024 3:33 PM Brian Brad [id number] 74 year old Patient Encounter: HEMATOLOGY/ONCOLOGY [facility] Cancer Diagnosis: - multiple myeloma, IgG lambda R-ISS Staging: III - bladder tumor. 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 He received last treatment on 08/16/2023 and then refused to continue treatment. Previous Treatment: - VRd treatment for myeloma. He was treated [id number]/14/2020 and received last dose of Velcade on [...] diagnosis. The block is being sent o [facility] for ancillary studies and the [...] 03/21/2023 and it was negative. Interval History: Recent PET scan was done on 06/11/2024 which revealed no FDG avid disease and no abnormal metabolicactivity within the known posterior electrolyte left 10th rib lytic lesion consistent with previously treated disease. LABS/IMAGING: Results for orders placed or performed in visit on 05/22/24 COMPREHENSIVE METABOLIC PANEL Result Value Ref Range BUN 22 (H) 6 - 20 mg/dL CREATININE 1.6 (H) 0.6 - 1.2 mg/dL EGFR 44 (L) >=60 mL/min SODIUM 139 135 - 146 mmol/L POTASSIUM 4.2 3.5 - 5.1 mmol/L CHLORIDE 104 98 - 107 mmol/L CO2 22 22 - 32 mmol/L ANION GAP 13 7 - 15 mmol/L GLUCOSE 95 70 - 120 mg/dL Albumin 4.0 3.8 - 5.0 g/dL AST 17 10 - 50 U/L Alkaline Phosphatase 116 35 - 130 U/L Bilirubin, Total 0.4 <=1.2 mg/dL CALCIUM 8.5 8.4 - 10.2 mg/dL Protein 7.1 6.0 - 8.3 g/dL ALT 15 10 - 50 U/L IMMUNOGLOBULIN QUANTITATIVE Result Value Ref Range IgG 2,133 (H) 700 - 1,600 mg/dL IgA 79 70 - 400 mg/dL IgM 10 (L) 40 - 230 mg/dL SERUM FREE LIGHT CHAINS Result Value Ref Range [employer] Free Light Chains, Serum 11.18 3.30 - 19.40 mg/L Lambda Free Light Chains, Serum 339.64 (H) 5.71 - 26.30 mg/L [employer] Lambda Free Light Chains Ratio 0.03 (L) 0.26 - 1.65 SERUM PROTEIN ELECTROPHORESIS REFLEX PROFILE Result Value Ref Range Normal/Abnormal Abnormal (A) Normal Protein 6.9 6.0 - 8.3 g/dL Albumin 3.21 (L) 3.30 - 4.40 g/dL Alpha-1 Globulin 0.28 0.10 - 0.30 g/dL Alpha-2 Globulin 0.92 0.60 - 1.00 g/dL Beta-Globulin 0.77 (L) 0.80 - 1.30 g/dL Gamma-Globulin 1.72 (H) 0.70 - 1.70 g/dL M Rod 1.51 g/dL Electrophoresis Interpretation Abnormal. A paraprotein is present that has been previously identified as a monoclonal IgG lambda. LIPID PANEL WITH DIRECT LDL IF TG IS HIGH Result Value Ref Range Triglycerides 176 (H) <=174 mg/dL Cholesterol 133 <200 mg/dL HDL Cholesterol 26 (L) >39 mg/dL Non-HDL Cholesterol 107 <=159 mg/dL LDL Cholesterol 72 <=129 mg/dL CBC Result Value Ref Range WBC 7.46 4.00 - 10.80 K/uL RBC 3.63 4.50 - 5.25 M/uL HGB 11.1 (L) 14.0 - 16.8 g/dL HCT 36.1 (L) 40.0 - 48.4 % MCV 99.4 82.0 - 99.5 fL MCH 30.6 27.0 - 34.0 pg MCHC 30.7 32.0 - 36.0 g/dL RDW 15.5 11.5 - 15.5 % PLT 167 140 - 400 K/uL MPV 10.3 6.6 - 11.1 fL DIFFERENTIAL, AUTOMATED Result Value Ref Range WBC 7.46 4.00 - 10.80 K/uL Neutrophils % 71.9 40.0 - 75.0 % Lymphocytes % 15.8 (L) 18.0 - 42.0 % Monocytes % 8.4 1.0 - 11.0 % Eosinophils % 3.5 0.0 - 6.0 % Basophils % 0.4 0.0 - 2.0 % Absolute Neutrophils 5.36 1.80 - 7.70 K/uL Absolute Lymphocytes 1.18 1.00 - 4.80 K/ul Absolute Monocytes 0.63 0.00 - 1.10 K/uL Absolute Eosinophils 0.26 0.00 - 0.70 K/uL Absolute Basophils 0.03 0.00 - 0.20 K/uL *Note: Due to a large number of results and/or encounters for the requested time period, some results have not been displayed. A complete set of results can be found in Results Review. There is increase in the M spike and increasing level of lambda light chain to 339 and kappa was 11with ratio of involved to uninvolved light chain of 30. IgG level has also increased to 2133. REVIEW OF SYSTEMS: General: No Fever, chills, [...] MORNING AND BEFORE BEDTIME 180 Tablet 3 traMADol HCl 50 MG Oral Tablet (Ultram) Take 1 Tablet by mouth every 6 hours as needed for Pain, Moderate. 30 Tablet 0 Atorvastatin Calcium 80 MG Oral Tablet (Lipitor) Take 1 Tablet by mouth in the morning. 90 Tablet 3 Pantoprazole Sodium 20 MG Oral Tablet Delayed Release (Protonix) Take 1 Tablet by mouth in the morning. 30 minutes before the first meal of the day. Do not crush, split or chew the tablet. 90 Tablet 3 Ipratropium-Albuterol 0.5-2.5 (3) MG/3ML Inhalation Solution (Duoneb) Inhale 3 mL via nebulizer in the morning and 3 mL at noon and 3 mL in the evening and 3 mL before bedtime. (Patient not taking: Reported on 06/18/2024) 100 mL 1 Metoprolol Tartrate 50 MG Oral Tablet (Lopressor) Take 1 Tablet by mouth in the morning and 1 Tablet before bedtime. 180 Tablet 0 Mirtazapine 15 MG Oral Tablet (Remeron) TAKE 1 TAB BY MOUTH AT BEDTIME. TO HELP WITH APPETITE, AND MOOD. 90 Tablet 0 No current facility-administered medications for this visit. Social History Tobacco Use Smoking status: Former Current packs/day: 0.00 Average packs/day: 1 pack/day for 40.0 years (40.0 ttl pk-yrs) Types: Cigarettes Start date: 08/22/1983 Quit date: 08/22/2023 Years since quittin.8 Passive exposure: Current Smokeless tobacco: Never Vaping Use Vaping status: Never Used Substance Use Topics Alcohol use: No Comment: chronic alcoholic, sober for years now Drug use: Yes Types: Marijuana Comment: 2 times a day Review of patient's allergies indicates: Allergen Reactions Calcium Carb-Cholecalciferol PHYSICAL EXAMINATION: General Appearance: Healthy appearing patient in no acute distress BP 143/83 (BP Site: Left Arm, BP Position: Sitting, BP Cuff Size: Regular) | Temp 36.3 C (97.4 F) (Tympanic) | Wt 78.9 kg (174 lb) | BMI 26.46 kg/m | BSA 1.95 m Vitals reviewed. No new finding on physical examination. ASSESSMENT: 74-year-old presented with hematuria and was [...] Treatment was resumed on 12/06/2022. He was recently admitted to the hospital with generalized weakness and increasing shortness of breath. He had COVID infection plus pneumonia. He was treated with the antibiotic. Now clinically he is feeling better but still complaining of generalized weakness and fatigue. He received last dose of tr eatment on 08/16/2023. He refused to continue further treatment. Now he has relapse with increasing light chain and IgG level. Recent PET scan shows no evidence of new disease or progression. Discussed with the patient about diagnosis prognosis reviewed all the available blood test result with him. Options of further treatment were discussed. After discussion he agreed to proceed with same treatment that he was receiving in the past including combination of Revlimid plus Decadron and Velcade. He will receive the Velcade injection on every other week basis. Clinically he is doing well and there is no neuropathy. PLAN: As above. He will return clinic for follow-up in 6 weeks with CBC, CMP and myeloma panel. He will have baseline blood test done before starting treatment. The patient voiced understanding of all of [...] this encounter Nursing Notes * Belem Campbell, MED ASSIST - 06/18/2024 3:32 PM EDT Patient identifed by name and birthdate Do you have any concerns about pain management for today's visit? Yes. Patient instructed to discuss pain concerns with provider during the visit today Living Will or Advance Directive for Health Care as noted on the problem list. [facility] is a way you can talk to your provider on line through e-mail. Would you like to sign up? I can activate it for you? ALREADY ACTIVE Filed Vitals: 06/18/24 1523 BP: 143/83 Temp: 36.3 C (97.4 F) TempSrc: Tympanic Weight: 78.9 kg (174 lb) Patient was instructed to not get up [...] 1:00 PM EDT Pharmacy Pharmacy Hematology Oncology [facility] [address] [place] [address] [facility] [place] [facility] Hem/Onc [address] [place] [address] 07/31/2024 10:30 AM EST Office Visit Hematology/Oncology [facility] [address] [facility] [phone] Luann De La Cruz MD [address] [facility] [address] 09/05/2024 1:15 PM EST Imaging Radiology [facility] [facility] [address] [facility] [place] [address] 09/11/2024 1:30 PM EST Office Visit Vascular Surgery, [facility] [address] [facility] [place] [address] Darrin Lowe MD [address] [place] [address] Scheduled Orders Name Type Priority Associated Diagnoses Orde r Schedule CBC WITH WBC DIFFERENTIAL Lab Routine Multiple myeloma not having achieved remission (HCC) Expected: 07/30/2024, Expires: 11/12/2024 COMPREHENSIVE METABOLIC PANEL Lab Routine Multiple myeloma not having achieved remission (HCC) Expected: 07/30/2024, Expires: 11/12/2024 IMMUNOGLOBULIN QUANTITATIVE Lab Routine Multiple myeloma not having achieved remission (HCC) Expected: 07/30/2024, Expires: 11/12/2024 SERUM FREE LIGHT CHAINS Lab Routine Multiple myeloma not having achieved remission (HCC) Expected: 07/30/2024, Expires: 11/12/2024 SERUM PROTEIN ELECTROPHORESIS REFLEX PROFILE Lab Routine Multiple myeloma not having achieved remission (HCC) Expected: 07/30/2024, Expires: 11/12/2024 Scheduled Procedures Name Priority Associated Diagnoses Date/Ti me COLONOSCOPY FLEXIBLE PROXIMAL DIAGNOSTIC Recall History of colon polyps Health Maintenance Due Date Last Done Comments Alpha-1 Antitrypsin 02/13/1970 Hepatitis C Screening 02/13/1970 Cologuard 02/13/1997 Fecal Occult Blood Test 02/13/1997 Sigmoidoscopy 02/13/1997 Adult Wellness Visit 02/13/2018 Colonoscopy 05/23/2020 05/23/2017 Colorectal Cancer Screening 05/23/2020 CKD PHOS USE SMARTSET 29963 2024 02/13/2023, 0 02/11/2021 COVID-19 Vaccine ( season) 2024 08/28/2021, 02/18/2021, 01/28/2021 Albumin/Creatinine Ratio 09/11/2024 09/11/2023 GFR 11/22/2024 05/22/2024, 02/24, 02/06/2024, Additional history exists Depression Screening 01/11/2025 01/12/2024, 07/12/2017 (Declined) CKD HGB USE SMARTSET 48975 05/22/202505/22, 05/22/2024, 03/18/2024, Additional history exists O2 [...] myeloma, without mention of having achieved remission Need for prophylactic vaccination and inoculation against influenza documented in this encounter Care Teams Distillery Worker General Relationship Specialty Start Date End Date Savanah Geiger DO [address] [place] [address] PCP - General Family Medicine 04/11/12 documented as of this encounter"
--- OUTSIDE RECORDS SUMMARY | 2024-09-04 22:31 | External Medical Summary | Summary of Care ---
Author Name Unknown Organization [facility] Address [address] [place] [address] Phone [phone] Care Team Providers Care Enologist Name Role Phone CaseySavanah harry Oswaldo JIMÉNEZ Primary Care Provider [phone] Encounter Details Date Type Department Care Team (Late st Contact Info) Description 06/19/2024 Orders Only Hematology/Oncology [facility] [place] [address] [facility] [place] [phone] Luann De La Cruz MD [address] [facility] [place] [address] Multiple myeloma, remission status unspecified (HCC)* Allergies [...] MG Sublingual Tablet Sublingual (Nitrostat)Indicati ons:Atherosclerosis of [place] coronary artery of [place] heart without angina pectoris One tablet [...] Tablet (Lipitor)Indication s:Dyslipidemia, goal LDL below 100 Take 1 Tablet by mouth in the morning. 90 Tablet 3 08/19/2023 Active Pantoprazole Sodium 20 MG Oral Tablet Delayed Release (Protonix) Take 1 Tablet by mouth in the morning. 30 minutes before the first meal of the day. Do not crush, split or chew the tablet. 90 Tablet 3 08/28/2023 Active Ipratropium-Albuter ol 0.5-2.5 (3) MG/3ML Inhalation Solution (Duoneb)Indications :BLACK (dyspnea on exertion),Wheezing, Pneumonia due to COVID-19 virus Inhale 3 mL via nebulizer in the morning and 3 mL at noon and 3 mL in the evening and 3 mL before bedtime. 100 mL 1 09/01/2023 Active Additional Information Patient not taking.Reported on 06/18/2024 Metoprolol Tartrate 50 MG Oral Tablet (Lopressor)Indicati ons:HTN, goal below 140/90,Paroxysmal atrial flutter (HCC) Take 1 Tablet by mouth in the morning and 1 Tablet before bedtime. 180 Tablet 03/27/2024 Active Mirtazapine 15 MG Oral Tablet (Remeron)Indication s:Poor appetite TAKE 1 TAB BY MOUTH AT BEDTIME. TO HELP WITH APPETITE, AND MOOD. 90 Tablet 04/29/2024 Active Acyclovir 400 MG Oral Tablet (Zovirax)Indication s:Multiple myeloma not having achieved remission (HCC) Take 1 Tablet by mouth in the morning and 1 Tablet before bedtime. 180 Tablet 3 06/18/2024 Active dexAMETHasone 4 MG Oral Tablet (Decadron)Indicatio ns:Multiple myeloma (HCC) Take 20mg (5 tablets) once a week 60 Tablet 3 06/18/2024 Active documented as of this encounter (statuses [...] cancer 04/24/2020 Coronary artery disease invo lving [place] heart without angina pectoris 05/22/2019 Old myocardial infarct 12/06/2018 S/p bare metal coronary artery stent 01/12/2015 Tobacco use disorder 04/16/2012 HTN, goal below 130/80 2012 GERD (gastroesophageal reflux disease) 2 documented as of this encounter (statuses as of 06/19/2024) Resolved Problems Problem Noted Date Diagnosed Date Resolved Date Coronary artery disease of n ative artery of [place] heart with stable angina pectoris 08/21/2023 08/21/2023 Dehydration 02/01/2021 03/29/2022 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 Atherosclerosis of coronary artery without angina pectoris 09/14/2018 03/29/2022 ST elevation myocardial infarction (STEMI) 03/20/2017 12/06/2018 Lung nodule 10/14/2015 03/29/2022 ST elevation myocardial infa rction (STEMI) involving other coronary artery 05/19/2015 03/20/[address] elevation [place] (STEMI) 01/12/201508/26 Myocardial infarction 02/03/20142017 COPD, moderate 08/27/2013 08/06/2020 Overview: Per COPD GOLD Classification Noncompliance 03/13/2013 03/21/2017 Anemia 05/03/2012 03/29/2022 COPD, severity to be determined 04/16/2012 08/27/2013 Dyslipidemia, goal LDL below 70 04/16/2012 03/29/2022 documented as of this encounter (statuses as of 06/19/2024) Immunizations Name Administration Dates Next Due COVID-19 mRNA, LNP-s, No Pre serve, 2-Dose Series ([employer]) 08/28/2021,02/18/2021,01/28/2021 Pneumococcal Conjugate Vacc, 13 Valent (Prevnar) [...] encounter Miscellaneous Notes * Addendum Note - Gwen Beebe RPh - 06/19/2024 11:15 AM EDTAddended by: GWEN BEEBE on: 06/19/2024 11:15 AM Modules accepted: Orders documented in this encounter Plan of Treatment Upcoming Encounters Date Type Department Care Team (Late st Contact Info) Description 06/19/2024 1:00 PM EDT Pharmacy Pharmacy Hematology Oncology [address] [address] [facility], [facility] Clinic Hem/Onc [address] [place] [address] MEDICATION THERAPY MANAGEMENT LENALIDOMIDE 07/31/2024 10:30 AM EST Office Visit Hematology/Oncology [facility] [place] [address] [place] [phone] Luann De La Cruz MD [address] [place] [address] 09/05/2024 1:15 PM EST Imaging Radiology [address], [place] [address] [place] [address] 09/11/2024 1:30 PM EST Office Visit Vascular Surgery, [facility] [address] [place] [address] Darrin Lowe MD [address] [place] [address] Scheduled Procedures Name Priority Associated Diagnoses Date/Ti me COLONOSCOPY FLEXIBLE PROXIMAL DIAGNOSTIC Recall History of colon polyps Health Maintenance Due Date Last Done Comments Alpha-1 Antitrypsin 02/13/1970 Hepatitis C Screening 02/13/1970 Cologuard 02/13/1997 Fecal Occult Blood Test 02/13/1997 Sigmoidoscopy 02/13/1997 Adult Wellness Visit 02/13/2018 Colonoscopy 05/23/2020 05/23/2017 Colorectal Cancer Screening 05/23/2020 CKD PHOS USE SMARTSET 36536 2024 02/13/2023, 0 02/11/2021 COVID-19 Vaccine ( season) 2024 08/28/2021, 02/18/2021, 01/28/2021 Albumin/Creatinine Ratio 09/11/2024 09/11/2023 GFR 11/22/2024 05/22/2024, 02/24, 02/06/2024, Additional history exists Depression Screening 01/11/2025 01/12/2024, 07/12/2017 (Declined) CKD HGB USE SMARTSET 92547 05/22/202505/22, 05/22/2024, 03/18/2024, Additional history exists O2 [...] Primary documented in this encounter Care Teams Enologist Relationship Specialty Start Date End Date Savanah Geiger DO [address] [place] [address] PCP - General Family Medicine 04/11/12 documented as of this encounter
--- OUTSIDE RECORDS SUMMARY | 2024-09-04 22:31 | External Medical Summary | Summary of Care ---
Author Name Unknown Organization [facility] Address [address] [place] [address] Phone [phone] Care Team Providers Care Machine Engineer Name Role Phone Griffinreed Savanah Oswaldo JIMÉNEZ Primary Care Provider [phone] Encounter Details Date Type Department Care Team (Late st Contact Info) Description 06/19/2024 Orders Only Hematology/Oncology, [address] [phone] Luann De La Cruz MD [address] [place] [address] Allergies Active Allergy Reactions Criticality Noted Date [...] MG Sublingual Tablet Sublingual (Nitrostat)Indicati ons:Atherosclerosis of [place] coronary artery of [place] [...] coronary artery 05/19/2015 03/20/[address] elevation [place] (STEMI) 01/12/201508/26 Myocardial infarction 02/03/20142017 COPD, moderate 08/27/2013 08/06/2020 Overview: Per COPD GOLD Classification Noncompliance 03/13/2013 03/21/2017 Anemia 05/03/2012 03/29/2022 COPD, severity to be determined 04/16/2012 08/27/2013 Dyslipidemia, goal LDL below 70 04/16/2012 03/29/2022 documented as of this encounter (statuses as of 06/19/2024) Immunizations Name Administration Dates Next Due COVID-19 mRNA, LNP-s, No Pre serve, 2-Dose Series ([employer]) 08/28/2021,02/18/2021,01/28/2021 Pneumococcal Conjugate Vacc, 13 Valent (Prevnar) [...] 1:00 PM EDT Pharmacy Pharmacy Hematology Oncology [address] [address] [facility] [place], [facility] Hem/Onc [address] [place] [address] Multiple myeloma, remission status unspecified (HCC)* 06/24/2024 1:30 PM EDT Pharmacy Pharmacy Hematology Oncology [address] [address] [facility] [place], [facility] Hem/Onc [address] [place] [address] 07/31/2024 10:30 AM EST Office Visit Hematology/Oncology [facility] [place] [address] [place] [phone] Luann De La Cruz MD [address] [place] [address] 09/05/2024 1:15 PM EST Imaging Radiology [address], [place] 132 [facility] [place] [address] 09/11/2024 1:30 PM EST Office Visit Vascular Surgery, [facility] [address] [place] [address] Darrin Lowe MD 100 [address] [facility] [place] [address] Scheduled Procedures Name Priority Associated Diagnoses Date/Ti me COLONOSCOPY FLEXIBLE PROXIMAL DIAGNOSTIC Recall History of colon polyps Health Maintenance Due Date Last Done Comments Alpha-1 Antitrypsin 02/13/1970 Hepatitis C Screening 02/13/1970 Cologuard 02/13/1997 Fecal Occult Blood Test 02/13/1997 Sigmoidoscopy 02/13/1997 Adult Wellness Visit 02/13/2018 Colonoscopy 05/23/2020 05/23/2017 Colorectal Cancer Screening 05/23/2020 CKD PHOS USE SMARTSET 32452 2024 02/13/2023, 0 02/11/2021 COVID-19 Vaccine ( season) 2024 08/28/2021, 02/18/2021, 01/28/2021 Albumin/Creatinine Ratio 09/11/2024 09/11/2023 GFR 11/22/2024 05/22/2024, 02/24, 02/06/2024, Additional history exists Depression Screening 01/11/2025 01/12/2024, 07/12/2017 (Declined) CKD HGB USE SMARTSET 91220 05/22/202505/22, 05/22/2024, 03/18/2024, Additional history exists O2 [...] filedocumented as of this encounter Care Teams Machine Engineer Relationship Specialty Start Date End Date Savanah Geiger DO [address] [place] [address] PCP - General Family Medicine 04/11/12 documented as of this encounter
--- OUTSIDE RECORDS SUMMARY | 2024-09-04 22:31 | External Medical Summary | Summary of Care ---
Author Name Unknown Organization [facility] Address [address] [place] [address] Phone [phone] Care Team Providers Care Truck Crane Operator Name Role Phone CaseySavanah harry Oswaldo JIMÉNEZ Primary Care Provider [phone] Reason for Visit * Reason Comments Medication Management Encounter Details Date Type Department Care Team (Late st Contact Info) Description 06/19/2024 1:00 PM EDT Pharmacy Pharmacy Hematology Oncology [facility] [address] [place] [address] [facility] [place], [facility] Hem/Onc [address] [place], [place] [phone] Multiple myeloma, remission status unspecified (HCC)* Allergies [...] MG Sublingual Tablet Sublingual (Nitrostat)Indicati ons:Atherosclerosis of [place] coronary artery of [place] heart without angina pectoris One tablet under [...] cancer 04/24/2020 Coronary artery disease invo lving [place] heart without angina pectoris 05/22/2019 Old myocardial infarct 12/06/2018 S/p bare metal coronary artery stent 01/12/2015 Tobacco use disorder 04/16/2012 HTN, goal below 130/80 2012 GERD (gastroesophageal reflux disease) 2 documented as of this encounter (statuses as of 06/19/2024) Resolved Problems Problem Noted Date Diagnosed Date Resolved Date Coronary artery disease of n ative artery of [place] heart with stable angina pectoris 08/21/2023 08/21/2023 [...] mRNA, LNP-s, No Pre serve, 2-Dose Series ([email or web address]) 08/28/2021,02/18/2021,01/28/2021 Pneumococcal Conjugate Vacc, 13 Valent (Prevnar) [...] this encounter Progress Notes * Gwen Godfrey, [facility] - 06/19/2024 10:50 AM EDT MEDICATION THERAPY MANAGEMENT LENALIDOMIDE INITIAL INTAKE NOTE Brian Salinas [phone] Patient Phone Numbers Communication: Chart review Treatment: Medication: Lenalidomide (Revlimid) Indication/Staging/Diagnosis Code: multiple myeloma Dose: 10mg daily D1-14 every 21 days Administration: +/- food Start Date: TBD Primary Wire Welder/Oncologist: Dr. De La Cruz Additional Therapy: Bortezomib Dexamethasone Supportive Care Meds: Ondansetron Prochlorperazine Prophylactic Meds: Acyclovir See anticoagulant below Relevant Chronic Medications: Category Medications Pertinent Notes Antihypertensives Metoprolol 50mg BID Per cardiology Anticoagulation ASA 81mg daily Pt hx Cycle Dates C1 TBD C2 TBD Review of therapy: Line of therapy: second Previous therapy: 04/01/22-07/28/22; 12/21/22-08/16/23: DaraVRd Reviewed dosage prescribed for appropriateness (based on indication, hepatic function,renal function, etc): yes, there are changes Per hematology order 06/18/24, pt to resume Vrd with lenalidomide 25mg daily D1- 14 every 21 days Per PI for CrCl 30-60mL/min, recommend to reduce dose to 10mg. Pt previously took 10mg daily Per discussion with Dr. De La Cruz, reduce dose to 10mg daily based on renal function Alteration of treatment placed reflecting dose reduction Are appropriate supportive care medications prescribed? Yes Are appropriate prophylactic medications prescribed? Yes Have baseline labs/tests been obtained? Yes Has hepatitis B screening been completed? Yes Potential drug-drug drug-herbal, drug-food, drug-disease interactions: No The Hematology/Oncology Oral Chemotherapy Clinic will assess medication compliance at each patient encounter Assessment and Plan: Per OV 06/18/24, pt to resume Vrd Per TE 06/18/24 addendum 06/19/24, pt has 14 caps of lenalidomide to restart therapy Pt requests labs day prior to treatment in [place] plan uploaded and sent to Dr. De La Cruz for signature MTM to follow up in 3 days to assess beacon plan signature status, celgene auth number, and auth status Yes/no Date Action Taken [place] plan entered? yes 06/19/24 Consent completed? yes 02/22/22 Intro/med rec completed? N/A Pt previously established with MTM Precert completed? Test claim completed? Financial assistance needed? Physician signature? Rx released? Education completed? Follow up: 3 days Gwen Godfrey, PharmD, BCOP Clinical Pharmacist, [facility] Oral Chemotherapy [facility] 06/19/2024, 11:15 AM Monitoring Parameters: Estimated CrCl Serum creatinine: 1.6 mg/dL (H) 05/22/24 0856 Estimated creatinine clearance: 40.4 mL/min (A) Hepatitis panel Latest Reference Range [...] thyroid meds Next Due Date 07/18/23 2.16 Treatment Parameters ANC > 1000, PLT > 30K Pertinent labs: Latest Reference Range & Units 05/22/24 08:56 WBC 4.00 - 10.80 K/uL 7.46 RBC 4.50 - 5.25 M/uL 3.63 HGB 14.0 - 16.8 g/dL 11.1 (L) HCT 40.0 - 48.4 % 36.1 (L) MCV 82.0 - 99.5 fL 99.4 MCH 27.0 - 34.0 pg 30.6 MCHC 32.0 - 36.0 g/dL 30.7 RDW 11.5 - 15.5 % 15.5 PLT 140 - 400 K/uL 167 MPV 6.6 - 11.1 fL 10.3 CBC WITH WBC DIFFERENTIAL Rpt ! Absolute Neutrophils 1.80 - 7.70 K/uL 5.36 Latest Reference Range & Units 05/22/24 08:56 Albumin 3.8 - 5.0 g/dL 4.0 AST 10 - 50 U/L 17 ALT 10 - 50 U/L 15 Alkaline Phosphatase 35 - 130 U/L 116 Bilirubin, Total <=1.2 mg/dL 0.4 Time Spent on Encounter: 16 - 20 minutes Encounter Group: Hematology Encounter Interventions Item Category: Oral Chemotherapy Lenalidomide Problem/Rationale: Indication: Needs additional medication therapy - Untreated condition, - Synergistic therapy [place] Plan Review: Initial Plan/upload Pharmacist Intervention(s): Clarification with Provider, Dose decreased, Drug Interaction Screen, Lab monitoring, and Referral review Magnitude of Intervention: Modification of medication for asymtomatic patients (Level 2) documented in this encounter Plan of Treatment Upcoming Encounters Date Type Department Care Team (Late st Contact Info) Description 06/24/2024 1:30 PM EDT Pharmacy Pharmacy Hematology Oncology [address] [address] [facility] [place], [facility] Hem/Onc [facility] [place] [address] 07/31/2024 10:30 AM EST Office Visit Hematology/Oncology [facility] [address] [place] [address] Luann De La Cruz MD [address] [place] [address] 09/05/2024 1:15 PM EST Imaging Radiology [facility] [address] [facility] 132 [facility] [place] [address] 09/11/2024 1:30 PM EST Office Visit Vascular Surgery, [facility] 132 [facility] [place] [address] Darrin Lowe MD 100 [place] [facility] [place] [address] Scheduled Procedures Name Priority Associated Diagnoses Date/Ti me COLONOSCOPY FLEXIBLE PROXIMAL DIAGNOSTIC Recall History of colon polyps Health Maintenance Due Date Last Done Comments Alpha-1 Antitrypsin 02/13/1970 Hepatitis C Screening 02/13/1970 Cologuard 02/13/1997 Fecal Occult Blood Test 02/13/1997 Sigmoidoscopy 02/13/1997 Adult Wellness Visit 02/13/2018 Colonoscopy 05/23/2020 05/23/2017 Colorectal Cancer Screening 05/23/2020 CKD PHOS USE SMARTSET 04936 2024 02/13/2023, 0 02/11/2021 COVID-19 Vaccine ( season) 2024 08/28/2021, 02/18/2021, 01/28/2021 Albumin/Creatinine Ratio 09/11/2024 09/11/2023 GFR 11/22/2024 05/22/2024, 02/24, 02/06/2024, Additional history exists Depression Screening 01/11/2025 01/12/2024, 07/12/2017 (Declined) CKD HGB USE SMARTSET 66358 05/22/202505/22, 05/22/2024, 03/18/2024, Additional history exists O2 [...] Primary documented in this encounter Care Teams Truck Crane Operator Relationship Specialty Start Date End Date Savanah Geiger DO [address] [place] [address] PCP - General Family Medicine 04/11/12 documented as of this encounter
--- OUTSIDE RECORDS SUMMARY | 2024-09-04 22:31 | External Medical Summary | Summary of Care ---
Author Name Unknown Organization [facility] Address [address] [place] [address] Phone [phone] Care Team Providers Care Axle Polisher Name Role Phone Caseypiero Savanah Oswaldo JIMÉNEZ Primary Care Provider Reason for Visit * Reason Onset Date Comments Precert Future 06/18/2024 VRd Encounter Details Date Type Department Care Team (Late st Contact Info) Description 06/18/2024 Telephone Hematology/Oncology Treatment, [place] [address] [place] [address] Luann De La Cruz MD [address] [place] [address] Precert Future (VRd) Allergies Active Allergy Reactions Criticality Noted Date Comments Calcium Carb-Cholecalciferol 016 documented as of this encounter (statuses as of 06/21/2024) Medications Medication Sig Dispensed Refills Start Date [...] as of this encounter (statuses as of 06/21/2024) Active Problems Problem Noted Date Diagnosed Date [...] as of this encounter (statuses as of 06/21/2024) Resolved Problems Problem Noted Date Diagnosed Date [...] as of this encounter (statuses as of 06/21/2024) Immunizations Name Administration Dates Next Due COVID-19 mRNA, LNP-s, No Pre serve, 2-Dose Series ([employer]) 08/28/2021,02/18/2021,01/28/2021 Pneumococcal Conjugate Vacc, 13 Valent (Prevnar) [...] - labs day prior to treatment in [place] (patient requested this already) - 1 hour [...] like labs the day before treatment in [place], likes treatment every Monday. MTM: FYI * Telephone Encounter - Sarahy Mcallisetr RN - 06/18/2024 3:53 PM EDT Order received to resume VRd. [place] plan built. Waiting for auth. MTM aware. Consent signed 02/22/22. Patient already registered with [employer]. Pended new prescriptions for acyclovir and decadron. Will need to verify that patient is aware of prescriptions as well as confirm he is still taking a baby aspirin daily. documented in this encounter Plan of Treatment Upcoming Encounters Date Type Department Care Team (Late st Contact Info) Description 06/24/2024 1:30 PM EDT Pharmacy Pharmacy Hematology Oncology [place] [address] [place] [address] [facility] [place], [facility] Hem/Onc [address] [place] [address] 06/25/2024 11:00 AM EDT Laboratory Laboratory, [place] [address] [place] [phone] [place], Laboratory [address] [place], [place] [phone] 06/26/2024 12:45 PM EDT Hem/Onc Treatment Hematology/Oncology Treatment, [place] [address] [place] [phone] 07/31/2024 10:30 AM EST Office Visit Hematology/Oncology [facility] [address] [place] [address] Luann De La Cruz MD [address] [place] [address] 09/05/2024 1:15 PM EST Imaging Radiology [facility] 132 [facility] [place] [address] 09/11/2024 1:30 PM EST Office Visit Vascular Surgery, [facility] 132 [facility] [place] [address] Darrin Lowe MD [address] [place] [address] Scheduled Orders Name Type Priority Associated Diagnoses [...] Cancer Screening 05/23/2020 CKD PHOS USE SMARTSET 87606 2024 02/13/2023, 0 02/11/2021 COVID-19 Vaccine ( season) 2024 08/28/2021, 02/18/2021, 01/28/2021 Albumin/Creatinine Ratio 09/11/2024 09/11/2023 GFR 11/22/2024 05/22/2024, 02/24, 02/06/2024, Additional history exists Depression Screening 01/11/2025 01/12/2024, 07/12/2017 (Declined) CKD HGB USE SMARTSET 86963 05/22/202505/22, 05/22/2024, 03/18/2024, Additional history exists O2 [...] remission documented in this encounter Care Teams Axle Polisher Relationship Specialty Start Date End Date Savanah Geiger DO [address] [place], [place] [phone] PCP - General Family Medicine 04/11/12 documented as of this encounter
--- OUTSIDE RECORDS SUMMARY | 2024-09-04 22:31 | External Medical Summary | Summary of Care ---
Author Name Unknown Organization [facility] Address [address] [place] [address] Phone [phone] Care Team Providers Care Architectural Engineer Name Role Phone Griffinreed Savanah Oswalod JIMÉNEZ Primary Care Provider Encounter Details Date Type Department Care Team (Late st Contact Info) Description 06/18/2024 Orders Only Hematology/Oncology, [address] [phone] Luann De La Cruz MD [address] [place] [address] Allergies Active Allergy Reactions Criticality Noted Date [...] coronary artery 05/19/2015 03/20/[address] elevation [place] (STEMI) 01/12/201508/26 Myocardial infarction 02/03/20142017 COPD, moderate 08/27/2013 08/06/2020 Overview: Per COPD GOLD Classification Noncompliance 03/13/2013 03/21/2017 Anemia 05/03/2012 03/29/2022 COPD, severity to be determined 04/16/2012 08/27/2013 Dyslipidemia, goal LDL below 70 04/16/2012 03/29/2022 documented as of this encounter (statuses as of 06/18/2024) Immunizations Name Administration Dates Next Due COVID-19 mRNA, LNP-s, No Pre serve, 2-Dose Series ([employer]) 08/28/2021,02/18/2021,01/28/2021 Pneumococcal Conjugate Vacc, 13 Valent (Prevnar) [...] 1:00 PM EDT Pharmacy Pharmacy Hematology Oncology [facility] [address] [place] [address] [facility] [place], [facility] Hem/Onc [address] [place] [address] 07/31/2024 10:30 AM EST Office Visit Hematology/Oncology [facility] 200 [facility] [place] [phone] Luann De La Cruz MD 200 [facility] [place] [address] 09/05/2024 1:15 PM EST Imaging Radiology [facility]st [facility] 132 [facility] [place] [address] 09/11/2024 1:30 PM EST Office Visit Vascular Surgery, [facility] 132 [facility] [place] [address] Darrin Lowe MD [address] [place] [address] Scheduled Procedures Name Priority Associated Diagnoses Date/Ti me COLONOSCOPY FLEXIBLE PROXIMAL DIAGNOSTIC Recall History of colon polyps Health Maintenance Due Date Last Done Comments Alpha-1 Antitrypsin 02/13/1970 Hepatitis C Screening 02/13/1970 Cologuard 02/13/1997 Fecal Occult Blood Test 02/13/1997 Sigmoidoscopy 02/13/1997 Adult Wellness Visit 02/13/2018 Colonoscopy 05/23/2020 05/23/2017 Colorectal Cancer Screening 05/23/2020 CKD PHOS USE SMARTSET 20139 2024 02/13/2023, 0 02/11/2021 COVID-19 Vaccine ( season) 2024 08/28/2021, 02/18/2021, 01/28/2021 Albumin/Creatinine Ratio 09/11/2024 09/11/2023 GFR 11/22/2024 05/22/2024, 02/24, 02/06/2024, Additional history exists Depression Screening 01/11/2025 01/12/2024, 07/12/2017 (Declined) CKD HGB USE SMARTSET 64642 05/22/202505/22, 05/22/2024, 03/18/2024, Additional history exists O2 [...] filedocumented as of this encounter Care Teams Architectural Engineer Relationship Specialty Start Date End Date Savanah Geiger DO [address] [place] [address] PCP - General Family Medicine 04/11/12 documented as of this encounter
--- OUTSIDE RECORDS SUMMARY | 2024-09-04 22:31 | External Medical Summary | Summary of Care ---
Author Name Unknown Organization [facility] Address [address] [place] [address] Phone [phone] Care Team Providers Care Proration Clerk Name Role Phone Caseypiero Savanah Oswaldo JIMÉNEZ Primary Care Provider Reason for Visit * Reason Onset Date Comments Precert Future 06/18/2024 VRd Encounter Details Date Type Department Care Team (Late st Contact Info) Description 06/18/2024 Telephone Hematology/Oncology Treatment, [place] [address] [place] [address] Luann De La Cruz MD [address] [place] [address] Precert Future (VRd) Allergies Active Allergy Reactions [...] Sublingual Tablet Sublingual (Nitrostat)Indica tions:Atheroscler osis of [place] coronary artery of [place] heart without angina pectoris One tablet under [...] cancer 04/24/2020 Coronary artery disease invo lving [place] heart without angina pectoris 05/22/2019 Old myocardial infarct 12/06/2018 S/p bare metal coronary artery stent 01/12/2015 Tobacco use disorder 04/16/2012 HTN, goal below 130/80 2012 GERD (gastroesophageal reflux disease) 2 documented as of this encounter (statuses as of 06/19/2024) Resolved Problems Problem Noted Date Diagnosed Date Resolved Date Coronary artery disease of n ative artery of [place] heart with stable angina pectoris 08/21/2023 08/21/2023 [...] mRNA, LNP-s, No Pre serve, 2-Dose Series ([employer]) 08/28/2021,02/18/2021,01/28/2021 Pneumococcal Conjugate Vacc, 13 Valent (Prevnar) [...] like labs the day before treatment in [place], likes treatment every Monday. MTM: FYI * Telephone Encounter - Sarahy Mcallister RN - 06/18/2024 3:53 PM EDT Order received to resume VRd. [place] plan built. Waiting for auth. MTM aware. Consent signed 02/22/22. Patient already registered with [employer]. Pended new prescriptions for acyclovir and decadron. Will need to verify that patient is aware of prescriptions as well as confirm he is still taking a baby aspirin daily. documented in this encounter Plan of Treatment Upcoming Encounters Date Type Department Care Team (Late st Contact Info) Description 06/19/2024 1:00 PM EDT Pharmacy Pharmacy Hematology Oncology [facility] [address] [place] [address] [facility] [place], [facility] Hem/Onc [address] [place] [address] MEDICATION THERAPY MANAGEMENT LENALIDOMIDE 07/31/2024 10:30 AM EST Office Visit Hematology/Oncology [facility] 200 [facility] [place] [phone] Luann De La Cruz MD 200 [facility] [place] [address] 09/05/2024 1:15 PM EST Imaging Radiology [facility] 1st [facility] 132 [place] [address] 09/11/2024 1:30 PM EST Office Visit Vascular Surgery, [facility] 132 [place] [address] Darrin Lowe MD [address] [place] [address] Scheduled Orders Name Type Priority Associated Diagnoses [...] Cancer Screening 05/23/2020 CKD PHOS USE SMARTSET 45564 2024 02/13/2023, 0 02/11/2021 COVID-19 Vaccine ( season) 2024 08/28/2021, 02/18/2021, 01/28/2021 Albumin/Creatinine Ratio 09/11/2024 09/11/2023 GFR 11/22/2024 05/22/2024, 02/24, 02/06/2024, Additional history exists Depression Screening 01/11/2025 01/12/2024, 07/12/2017 (Declined) CKD HGB USE SMARTSET 14638 05/22/202505/22, 05/22/2024, 03/18/2024, Additional history exists O2 [...] remission documented in this encounter Care Teams Proration Clerk Relationship Specialty Start Date End Date Savanah Geiger DO [address] [place], [place] [phone] PCP - General Family Medicine 04/11/12 documented as of this encounter
--- OUTSIDE RECORDS SUMMARY | 2024-09-04 22:31 | External Medical Summary | Summary of Care ---
Author Name Unknown Organization [facility] Address [address] [place] [address] Phone [phone] Care Team Providers Care Relationship Mgr Name Role Phone Caseypiero Savanah Oswaldo JIMÉNEZ Primary Care Provider Reason for Visit * Reason Onset Date Comments Precert Future 06/18/2024 VRd Encounter Details Date Type Department Care Team (Late st Contact Info) Description 06/18/2024 Telephone Hematology/Oncology Treatment, [place] [address] [place] [address] Luann De La Cruz MD [address] [place] [address] Precert Future (VRd) Allergies Active Allergy Reactions Criticality Noted Date Comments Calcium Carb-Cholecalciferol 016 documented as of this encounter (statuses as of 06/20/2024) Medications Medication Sig Dispensed Refills Start Date [...] Sublingual Tablet Sublingual (Nitrostat)Indica tions:Atheroscler osis of [place] coronary artery of [place] heart without angina pectoris One tablet under [...] as of this encounter (statuses as of 06/20/2024) Active Problems Problem Noted Date Diagnosed Date [...] cancer 04/24/2020 Coronary artery disease invo lving [place] heart without angina pectoris 05/22/2019 Old myocardial infarct 12/06/2018 S/p bare metal coronary artery stent 01/12/2015 Tobacco use disorder 04/16/2012 HTN, goal below 130/80 2012 GERD (gastroesophageal reflux disease) 2 documented as of this encounter (statuses as of 06/20/2024) Resolved Problems Problem Noted Date Diagnosed Date Resolved Date Coronary artery disease of n ative artery of [place] heart with stable angina pectoris 08/21/2023 08/21/2023 [...] as of this encounter (statuses as of 06/20/2024) Immunizations Name Administration Dates Next Due COVID-19 mRNA, LNP-s, No Pre serve, 2-Dose Series ([employer]) 08/28/2021,02/18/2021,01/28/2021 Pneumococcal Conjugate Vacc, 13 Valent (Prevnar) [...] - labs day prior to treatment in [place] (patient requested this already) - 1 hour [...] like labs the day before treatment in [place], likes treatment every Monday. MTM: [email or web address] * Telephone Encounter - Sarahy Mcallister RN - 06/18/2024 3:53 PM EDT Order received to resume VRd. [place] plan built. Waiting for auth. MTM aware. Consent signed 02/22/22. Patient already registered with [email or web address]. Pended new prescriptions for acyclovir and decadron. Will need to verify that patient is aware of prescriptions as well as confirm he is still taking a baby aspirin daily. documented in this encounter Plan of Treatment Upcoming Encounters Date Type Department Care Team (Late st Contact Info) Description 06/24/2024 1:30 PM EDT Pharmacy Pharmacy Hematology Oncology [facility] [address] [place] [address] [facility], [facility] Hem/Onc [address] [place] [address] 07/31/2024 10:30 AM EST Office Visit Hematology[facility]On[facility] [address] [place], [place] [id number] Luann De La Cruz MD [address] [place] [address] 09/05/2024 1:15 PM EST Imaging Radiology [address] 132 [facility] [place] [address] 09/11/2024 1:30 PM EST Office Visit Vascular Surgery, [facility] [address] [place] [address] Darrin Lowe MD [address] [id number] Scheduled Orders Name Type Priority Associated Diagnoses [...] Cancer Screening 05/23/2020 CKD PHOS USE SMARTSET 10090 2024 02/13/2023, 0 02/11/2021 COVID-19 Vaccine ( season) 2024 08/28/2021, 02/18/2021, 01/28/2021 Albumin/Creatinine Ratio 09/11/2024 09/11/2023 GFR 11/22/2024 05/22/2024, 02/24, 02/06/2024, Additional history exists Depression Screening 01/11/2025 01/12/2024, 07/12/2017 (Declined) CKD HGB USE SMARTSET 80077 05/22/202505/22, 05/22/2024, 03/18/2024, Additional history exists O2 [...] remission documented in this encounter Care Teams Relationship Mgr Relationship Specialty Start Date End Date Savanah Geiger DO [address] [place] [address] PCP - General Family Medicine 04/11/12 documented as of this encounter
--- OUTSIDE RECORDS SUMMARY | 2024-09-04 22:31 | External Medical Summary | Summary of Care ---
Author Name Unknown Organization [facility] Address [address] [place] [address] Phone [phone] Care Team Providers Care Assembly Person Name Role Phone MarcelinajaskaranSavanah DO Primary Care Provider [phone] Reason for Visit * Reason Onset Date Comments Medication Refill 06/18/2024 Encounter Details Date Type Department Care Team (Late st Contact Info) Description 06/18/2024 Refill Hematology/Oncology Treatment, [place] [address] [place] [phone] Luann De La Cruz MD [address] [place] [address] Multiple myeloma not having achieved remission (HCC); Multiple myeloma (HCC) Allergies Active Allergy Reactions Criticality Noted [...] Sublingual Tablet Sublingual (Nitrostat)Indica tions:Atheroscler osis of [place] coronary artery of [place] heart [...] 04/29/2024 Active Acyclovir 400 MG Oral Tablet (Zovirax)Indicati ons:Multiple myeloma not having achieved remission (HCC) Take 1 Tablet by mouth in the morning and 1 Tablet before bedtime. 180 Tablet 3 06/18/2024 Active dexAMETHasone 4 MG Oral Tablet (Decadron)Indicat ions:Multiple myeloma (HCC) Take 20mg (5 tablets) once a week 60 Tablet 3 06/18/2024 Active Dexamethasone 4 MG Oral Tablet (Decadron)Indicat [...] mRNA, LNP-s, No Pre serve, 2-Dose Series ([employer]) 08/28/2021,02/18/2021,01/28/2021 Pneumococcal Conjugate Vacc, 13 Valent (Prevnar) [...] Encounter - Sarahy Mcallister RN - 06/18/2024 3:54 PM EDT Pended acyclovir and decadron. documented in this encounter Plan of Treatment Upcoming Encounters Date Type Department Care Team (Late st Contact Info) Description 06/19/2024 1:00 PM EDT Pharmacy Pharmacy Hematology Oncology [facility] [address] [place] [address] [facility] Hem[facility]Onc [address] [place] [address] 07/31/2024 10:30 AM EST Office Visit Hematology/Oncology [facility] [address] [place] [address] Luann De La Cruz MD [address] [place] [address] 09/05/2024 1:15 PM EST Imaging Radiology [facility] 1st [facility] 132 [facility] [address] 09/11/2024 1:30 PM EST Office Visit Vascular Surgery, [facility] 132 [facility] [place] [address] Darrin Lowe MD [address] [place] [address] Scheduled Procedures Name Priority Associated Diagnoses Date/Ti me COLONOSCOPY FLEXIBLE PROXIMAL DIAGNOSTIC Recall History of colon polyps Health Maintenance Due Date Last Done Comments Alpha-1 Antitrypsin 02/13/1970 Hepatitis C Screening 02/13/1970 Cologuard 02/13/1997 Fecal Occult Blood Test 02/13/1997 Sigmoidoscopy 02/13/1997 Adult Wellness Visit 02/13/2018 Colonoscopy 05/23/2020 05/23/2017 Colorectal Cancer Screening 05/23/2020 CKD PHOS USE SMARTSET 98889 2024 02/13/2023, 0 02/11/2021 COVID-19 Vaccine ( season) 2024 08/28/2021, 02/18/2021, 01/28/2021 Albumin/Creatinine Ratio 09/11/2024 09/11/2023 GFR 11/22/2024 05/22/2024, 02/24, 02/06/2024, Additional history exists Depression Screening 01/11/2025 01/12/2024, 07/12/2017 (Declined) CKD HGB USE SMARTSET 07917 05/22/202505/22, 05/22/2024, 03/18/2024, Additional history exists O2 [...] remission documented in this encounter Care Teams Assembly Person Relationship Specialty Start Date End Date Savanah Geiger DO [address] [place] [address] PCP - General Family Medicine 04/11/12 documented as of this encounter
--- OUTSIDE RECORDS SUMMARY | 2024-09-04 22:31 | External Medical Summary | Summary of Care ---
Author Name Unknown Organization [facility] Address [address] [place] [address] Phone [phone] Care Team Providers Care Dryerman/Woman Name Role Phone CaseySavanah harry Oswaldo JIMÉNEZ Primary Care Provider [phone] Encounter Details Date Type Department Care Team (Late st Contact Info) Description 06/19/2024 Orders Only Hematology/Oncology [facility] [place] 200 [facility] [place] [address] Luann De La Cruz MD 200 [facility] [place] [address] Multiple myeloma, remission status unspecified (HCC)* Allergies [...] Sublingual Tablet Sublingual (Nitrostat)Indicati ons:Atherosclerosis of [place] coronary artery of [place] heart without angina pectoris One tablet [...] 04/24/2020 Coronary artery disease invo lving [place] heart without angina pectoris 05/22/2019 Old myocardial infarct 12/06/2018 S/p bare metal coronary artery stent 01/12/2015 Tobacco use disorder 04/16/2012 HTN, goal below 130/80 2012 GERD (gastroesophageal reflux disease) 2 documented as of this encounter (statuses as of 06/19/2024) Resolved Problems Problem Noted Date Diagnosed Date Resolved Date Coronary artery disease of n ative artery of [place] heart with stable angina pectoris 08/21/2023 08/21/2023 Dehydration 02/01/2021 03/29/2022 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 Atherosclerosis of coronary artery without angina pectoris 09/14/2018 03/29/2022 ST elevation myocardial infarction (STEMI) 03/20/2017 12/06/2018 Lung nodule 10/14/2015 03/29/2022 ST elevation myocardial infa rction (STEMI) involving other coronary artery 05/19/2015 03/20/[address] elevation IN (STEMI) 01/12/201508/26 Myocardial infarction 02/03/20142017 COPD, moderate 08/27/2013 08/06/2020 Overview: Per COPD GOLD Classification Noncompliance 03/13/2013 03/21/2017 Anemia 05/03/2012 03/29/2022 COPD, severity to be determined 04/16/2012 08/27/2013 Dyslipidemia, goal LDL below 70 04/16/2012 03/29/2022 documented as of this encounter (statuses as of 06/19/2024) Immunizations Name Administration Dates Next Due COVID-19 mRNA, LNP-s, No Pre serve, 2-Dose Series ([employer]) 08/28/2021,02/18/2021,01/28/2021 Pneumococcal Conjugate Vacc, 13 Valent (Prevnar) [...] 1:00 PM EDT Pharmacy Pharmacy Hematology Oncology [address] [address] [facility], [facility] Hem/Onc [address] [place] [address] Multiple myeloma, remission status unspecified (HCC)* 06/24/2024 1:30 PM EDT Pharmacy Pharmacy Hematology Oncology [address] [address] [facility], [facility] Hem/Onc [address] [place] [address] 07/31/2024 10:30 AM EST Office Visit Hematology/Oncology [facility] [place] 200 [place] [address] Luann De La Cruz MD [address] [place], [place] [address] 09/05/2024 1:15 PM EST Imaging [facility] 1st [facility] [address] [place] [address] 09/11/2024 1:30 PM EST Office Visit Vascular Surgery, [facility] [address] [place] [address] Darrin Lowe MD [address] [place] [address] Scheduled Procedures Name Priority Associated Diagnoses Date/Ti me COLONOSCOPY FLEXIBLE PROXIMAL DIAGNOSTIC Recall History of colon polyps Health Maintenance Due Date Last Done Comments Alpha-1 Antitrypsin 02/13/1970 Hepatitis C Screening 02/13/1970 Cologuard 02/13/1997 Fecal Occult Blood Test 02/13/1997 Sigmoidoscopy 02/13/1997 Adult Wellness Visit 02/13/2018 Colonoscopy 05/23/2020 05/23/2017 Colorectal Cancer Screening 05/23/2020 CKD PHOS USE SMARTSET 67889 2024 02/13/2023, 0 02/11/2021 COVID-19 Vaccine ( season) 2024 08/28/2021, 02/18/2021, 01/28/2021 Albumin/Creatinine Ratio 09/11/2024 09/11/2023 GFR 11/22/2024 05/22/2024, 02/24, 02/06/2024, Additional history exists Depression Screening 01/11/2025 01/12/2024, 07/12/2017 (Declined) CKD HGB USE SMARTSET 97813 05/22/202505/22, 05/22/2024, 03/18/2024, Additional history exists O2 [...] myeloma, remission status unspecified (HCC)- Primary Multiple myeloma, remission status unspecified (HCC)- Primary documented in this encounter Care Teams Dryerman/Woman Relationship Specialty Start Date End Date Savanah Geiger DO [address] [place] [address] PCP - General Family Medicine 04/11/12 documented as of this encounter
--- OUTSIDE RECORDS SUMMARY | 2024-09-04 22:32 | External Medical Summary | Summary of Care ---
Author Name Unknown Organization [facility] Address [address] [place] [address] Phone [phone] Care Team Providers Care Licensed Sales Assistant Name Role Phone Caseypiero Savanah Oswaldo JIMÉNEZ Primary Care Provider Reason for Visit * Reason Onset Date Comments Order Request 06/04/2024 Jono Advice 06/04/2024 Encounter Details Date Type Department Care Team (Late st Contact Info) Description 06/04/2024 Telephone Hematology/Oncology [facility] [address] [place] [address] Services, Scheduling [address] [place] [address] Order Request (Jono); Advice Allergies Active Allergy Reactions Criticality Noted Date Comments Calcium Carb-Cholecalciferol 016 documented as of this encounter (statuses as of 06/05/2024) Medications Medication Sig Dispensed Refills Start Date [...] Oral Capsule Take by mouth daily. Active Dexamethasone 4 MG Oral Tablet (Decadron)Indicatio ns:Multiple myeloma (HCC) Take 40mg (10 tablets) once a week 40 Tablet 5 01/09/2023 Active Nitroglycerin 0.4 MG Sublingual Tablet Sublingual (Nitrostat)Indicati ons:Atherosclerosis of [place] coronary artery of [place] heart without angina pectoris One tablet under tongue if needed for chest pain. May repeat 3 times. If chest pain continues, call [phone] 75 Tablet 3 03/20/2023 Active Acyclovir 400 MG Oral Tablet (Zovirax)Indication s:Multiple myeloma not having achieved remission (HCC) TAKE 1 TABLET BY MOUTH EVERY DAY IN THE MORNING AND BEFORE BEDTIME 180 Tablet 3 03/27/2023 Active traMADol HCl 50 MG Oral Tablet [...] before bedtime. 100 mL 1 09/01/2023 Active Metoprolol Tartrate 50 MG Oral Tablet (Lopressor)Indicati ons:HTN, goal below 140/90,Paroxysmal atrial flutter (HCC) Take 1 Tablet by mouth in the morning and 1 Tablet before bedtime. 180 Tablet 03/27/2024 Active Mirtazapine 15 MG Oral Tablet (Remeron)Indication s:Poor appetite TAKE 1 TAB BY MOUTH AT BEDTIME. TO HELP WITH APPETITE, AND MOOD. 90 Tablet 04/29/2024 Active documented as of this encounter (statuses as of 06/05/2024) Active Problems Problem Noted Date Diagnosed Date [...] cancer 04/24/2020 Coronary artery disease invo lving [place] heart without angina pectoris 05/22/2019 Old myocardial infarct 12/06/2018 S/p bare metal coronary artery stent 01/12/2015 Tobacco use disorder 04/16/2012 HTN, goal below 130/80 2012 GERD (gastroesophageal reflux disease) 2 documented as of this encounter (statuses as of 06/05/2024) Resolved Problems Problem Noted Date Diagnosed Date Resolved Date Coronary artery disease of n ative artery of [place] heart with stable angina pectoris 08/21/2023 08/21/2023 [...] as of this encounter (statuses as of 06/05/2024) Immunizations Name Administration Dates Next Due COVID-19 mRNA, LNP-s, No Pre serve, 2-Dose Series ([employer]) 08/28/2021,02/18/2021,01/28/2021 Pneumococcal Conjugate Vacc, 13 Valent (Prevnar) [...] Telephone Encounter - Sarahy Mcallister RN - 06/05/2024 3:38 PM EDT Called and spoke to patients . She is agreeable to BMBx being cancelled and doing PET instead. Scheduling: please follow up to schedule PET prior to 06/18 appt. Thanks! * Telephone Encounter - Fior Farmer OSA - 06/05/2024 2:58 PM EDT Pt's Val returning a call to Sarahy. Please call her back at [phone] * Telephone Encounter - Sarahy Mcallister RN - 06/05/2024 1:[address] De La Cruz's routing comment in other encounter: "Cancel the bone marrow biopsy and will get the PET scan which was requested " Left message for patient to return call to discuss. TT sent to [facility] to make them aware. * Telephone Encounter - Hong Winslow OSA - 06/04/2024 2:42 PM EDT Patient , Greta called asking if Dr. De La Cruz can place an order for anesthesia so that Pt can have his bone marrow biopsy? She states he does not want to schedule until that is ordered or he would like to go to [place]. Please give him a call back. documented in this encounter Plan of Treatment Upcoming Encounters Date Type Department Care Team (Late st Contact Info) Description 06/18/2024 3:30 PM EDT Office Visit Hematology/Oncology [facility] [address] [place] [address] Luann De La Cruz MD 200 [facility] [place] [address] 09/05/2024 1:15 PM EST Imaging Radiology [facility] 1st [facility] 132 [place] [address] 09/11/2024 1:30 PM EST Office Visit Vascular Surgery, [facility] 132 [place] [address] Darrin Lowe MD [address] [place], [place] [id number] Scheduled Procedures Name Priority Associated Diagnoses Date/Ti me COLONOSCOPY FLEXIBLE PROXIMAL DIAGNOSTIC Recall History of colon polyps Health Maintenance Due Date Last Done Comments Alpha-1 Antitrypsin 02/13/1970 Hepatitis C Screening 02/13/1970 Cologuard 02/13/1997 Fecal Occult Blood Test 02/13/1997 Sigmoidoscopy 02/13/1997 Adult Wellness Visit 02/13/2018 Colonoscopy 05/23/2020 05/23/2017 Colorectal Cancer Screening 05/23/2020 CKD PHOS USE SMARTSET 47921 2024 02/13/2023, 0 02/11/2021 COVID-19 Vaccine ( season) 2024 08/28/2021, 02/18/2021, 01/28/2021 Influenza Vaccine (FLU shot) (#1) 2024 07/10/2023, 06/23/2022, 07/12/2021, Additional history exists Albumin/Creatinine Ratio 09/11/2024 09/11/2023 GFR 11/22/2024 05/22/2024, 02/24, 02/06/2024, Additional history exists Depression Screening 01/11/2025 01/12/2024, 07/12/2017 (Declined) CKD HGB USE SMARTSET 74275 05/22/202505/22, 05/22/2024, 03/18/2024, Additional history exists O2 ASSESSMENT COMPLETED IN PAST YEAR FOR COPD 05/22/2025 05/22/2024 Lung Cancer Screening Completed 03/14/2022 , 06/03/2020, 05/27/2020, Additional history exists Pneumococcal Vaccine: 65+ Years Completed 07/25/2022, 07/09/2020 DTap/Tdap Vaccines Discontinued HPV (Gardasil) Vaccine Aged [...] filedocumented as of this encounter Care Teams Licensed Sales Assistant Relationship Specialty Start Date End Date Savanah Geiger DO [address] [place] [address] PCP - General Family Medicine 04/11/12 documented as of this encounter
--- OUTSIDE RECORDS SUMMARY | 2024-09-04 22:32 | External Medical Summary | Summary of Care ---
Author Name Unknown Organization [facility] Address [address] [place] [address] Phone [phone] Care Team Providers Care Housekeeping Associate Name Role Phone Caseypiero Savanah Oswaldo JIMÉNEZ Primary Care Provider [phone] Reason for Visit * Reason Onset Date Comments Order Request 06/04/2024 Jono Advice 06/04/2024 Encounter Details Date Type Department Care Team (Late st Contact Info) Description 06/04/2024 Telephone Hematology/Oncology [facility] [address] [place] [address] Services, Scheduling [address] [place] [address] Order Request (Jono); Advice Allergies Active Allergy Reactions Criticality Noted Date Comments Calcium Carb-Cholecalciferol 016 documented as of this encounter (statuses as of 06/10/2024) Medications Medication Sig Dispensed Refills Start Date [...] MG Sublingual Tablet Sublingual (Nitrostat)Indicati ons:Atherosclerosis of [place] coronary artery of [place] [...] as of this encounter (statuses as of 06/10/2024) Active Problems Problem Noted Date Diagnosed Date [...] as of this encounter (statuses as of 06/10/2024) Resolved Problems Problem Noted Date Diagnosed Date [...] as of this encounter (statuses as of 06/10/2024) Immunizations Name Administration Dates Next Due COVID-19 mRNA, LNP-s, No Pre serve, 2-Dose Series ([employer]) 08/28/2021,02/18/2021,01/28/2021 Pneumococcal Conjugate Vacc, 13 Valent [...] Telephone Encounter - Yamel Garcia OSA - 06/10/2024 8:25 AM EDT * Telephone Encounter - Yamel Garcia OSA - 06/06/2024 8:59 AM EDT Was able to schedule for 06/11 Left message in detail regarding Will call again to confirm * Telephone Encounter - Sarahy Mcallister RN [...] to Sarahy. Please call her back at [phone] * Telephone Encounter - Sarahy Mcallister RN - 06/05/2024 1:[address] De La Cruz's routing comment in other encounter: "Cancel the bone marrow biopsy and will get the PET scan which was requested " Left message for patient to return call to discuss. TT sent to [facility] to make them aware. * Telephone Encounter - Hong Winslow OSA - 06/04/2024 2:42 PM EDT Patient , Greta called asking if Dr. De La Cruz can place an order for anesthesia so that Pt can have his bone marrow biopsy? She states he does not want to schedule until that is ordered or he would like to go to [facility]. Please give him a call back. documented in this encounter Plan of Treatment Upcoming Encounters Date Type Department Care Team (Late st Contact Info) Description 06/11/2024 1:45 PM EDT Imaging Radiology [address] 132 [place] [address] 06/18/2024 3:30 PM EDT Office Visit Hematology/Oncology [facility] [address] [place] [phone] Luann De La Cruz MD [address] [place] [address] 09/05/2024 1:15 PM EST Imaging Radiology [address] 132 [facility] [place] [address] 09/11/2024 1:30 PM EST Office Visit Vascular Surgery, [facility] 132 [facility] [place] [address] Darrin Lowe MD [address] [place] [address] Scheduled Procedures Name Priority Associated Diagnoses Date/Ti me COLONOSCOPY FLEXIBLE PROXIMAL DIAGNOSTIC Recall History of colon polyps Health Maintenance Due Date Last Done Comments Alpha-1 Antitrypsin 02/13/1970 Hepatitis C Screening 02/13/1970 Cologuard 02/13/1997 Fecal Occult Blood Test 02/13/1997 Sigmoidoscopy 02/13/1997 Adult Wellness Visit 02/13/2018 Colonoscopy 05/23/2020 05/23/2017 Colorectal Cancer Screening 05/23/2020 CKD PHOS USE SMARTSET 74421 2024 02/13/2023, 0 02/11/2021 COVID-19 Vaccine ( season) 2024 08/28/2021, 02/18/2021, 01/28/2021 Influenza Vaccine (FLU shot) (#1) 2024 07/10/2023, 06/23/2022, 07/12/2021, Additional history exists Albumin/Creatinine Ratio 09/11/2024 09/11/2023 GFR 11/22/2024 05/22/2024, 02/24, 02/06/2024, Additional history exists Depression Screening 01/11/2025 01/12/2024, 07/12/2017 (Declined) CKD HGB USE SMARTSET 88121 05/22/202505/22, 05/22/2024, 03/18/2024, Additional history exists O2 [...] filedocumented as of this encounter Care Teams Housekeeping Associate Relationship Specialty Start Date End Date Savanah Geiger DO [address] [facility] [address] PCP - General Family Medicine 04/11/12 documented as of this encounter
--- OUTSIDE RECORDS SUMMARY | 2024-09-04 22:32 | External Medical Summary | Summary of Care ---
Author Name Unknown Organization [facility] Address [address] [place] [address] Phone [phone] Care Team Providers Care Installer Name Role Phone Caseypiero Savanah Oswaldo JIMÉNEZ Primary Care Provider Reason for Visit * Reason Onset Date Comments Order Request 06/04/2024 Jono Advice 06/04/2024 Encounter Details Date Type Department Care Team (Late st Contact Info) Description 06/04/2024 Telephone Hematology/Oncology [facility] [address] [place] [address] Services, Scheduling [address] [place] [address] Order Request (Jono); Advice Allergies Active Allergy Reactions Criticality Noted Date Comments Calcium Carb-Cholecalciferol 016 documented as of this encounter (statuses as of 06/06/2024) Medications Medication Sig Dispensed Refills Start Date [...] MG Sublingual Tablet Sublingual (Nitrostat)Indicati ons:Atherosclerosis of [place] coronary artery of [place] heart without angina pectoris One tablet under [...] as of this encounter (statuses as of 06/06/2024) Active Problems Problem Noted Date Diagnosed Date [...] cancer 04/24/2020 Coronary artery disease invo lving [place] heart without angina pectoris 05/22/2019 Old myocardial infarct 12/06/2018 S/p bare metal coronary artery stent 01/12/2015 Tobacco use disorder 04/16/2012 HTN, goal below 130/80 2012 GERD (gastroesophageal reflux disease) 2 documented as of this encounter (statuses as of 06/06/2024) Resolved Problems Problem Noted Date Diagnosed Date Resolved Date Coronary artery disease of n 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 Please call her back at [phone] * Telephone Encounter - Sarahy Mcallister RN - 06/05/2024 1:[address] De La Cruz's routing comment in other encounter: "Cancel the bone marrow biopsy and will get the PET scan which was requested " Left message for patient to return call to discuss. TT sent to [facility] to make them aware. [...] he would like to go to [place]. Please give him a call back. documented in this encounter Plan of Treatment Upcoming Encounters Date Type Department Care Team (Late st Contact Info) Description 06/18/2024 3:30 PM EDT Office Visit Hematology/Oncology [facility] [address] [place] [address] Luann De La Cruz MD 200 [facility] [place] [address] 09/05/2024 1:15 PM EST Imaging Radiology [facility] [address] [place] [address] 09/11/2024 1:30 PM EST Office Visit Vascular Surgery, [facility] [address] [place] [address] Darrin Lowe MD [address] [place], [place] [id number] Scheduled Procedures Name Priority Associated Diagnoses Date/Ti me COLONOSCOPY FLEXIBLE PROXIMAL DIAGNOSTIC Recall History of colon polyps Health Maintenance Due Date Last Done Comments Alpha-1 Antitrypsin 02/13/1970 Hepatitis C Screening 02/13/1970 Cologuard 02/13/1997 Fecal Occult Blood Test 02/13/1997 Sigmoidoscopy 02/13/1997 Adult Wellness Visit 02/13/2018 Colonoscopy 05/23/2020 05/23/2017 Colorectal Cancer Screening 05/23/2020 CKD PHOS USE SMARTSET 30598 2024 02/13/2023, 0 02/11/2021 COVID-19 Vaccine ( season) 2024 08/28/2021, 02/18/2021, 01/28/2021 Influenza Vaccine (FLU shot) (#1) 2024 07/10/2023, 06/23/2022, 07/12/2021, Additional history exists Albumin/Creatinine Ratio 09/11/2024 09/11/2023 GFR 11/22/2024 05/22/2024, 02/24, 02/06/2024, Additional history exists Depression Screening 01/11/2025 01/12/2024, 07/12/2017 (Declined) CKD HGB USE SMARTSET 13419 05/22/202505/22, 05/22/2024, 03/18/2024, Additional history exists O2 [...] filedocumented as of this encounter Care Teams Installer Relationship Specialty Start Date End Date Savanah Geiger DO [address] [place] [address] PCP - General Family Medicine 04/11/12 documented as of this encounter
--- OUTSIDE RECORDS SUMMARY | 2024-09-04 22:32 | External Medical Summary | Summary of Care ---
Author Name Unknown Organization [facility] Address [address] [place] [address] Phone [phone] Care Team Providers Care Auto Damage Estimator Name Role Phone Caseypiero Savanah Oswaldo JIMÉNEZ Primary Care Provider Reason for Visit * Reason Onset Date Comments Order Request 06/04/2024 Jono Advice 06/04/2024 Encounter Details Date Type Department Care Team (Late st Contact Info) Description 06/04/2024 Telephone Hematology/Oncology [facility] [address] [place] [address] Services, Scheduling [address] [place] [address] Order Request (Jono); Advice Allergies Active Allergy [...] MG Sublingual Tablet Sublingual (Nitrostat)Indicati ons:Atherosclerosis of [place] coronary artery of [place] heart without angina pectoris One tablet under [...] cancer 04/24/2020 Coronary 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 05/22/2019 Old myocardial infarct 12/06/2018 S/p bare metal coronary artery stent 01/12/2015 Tobacco use disorder 04/16/2012 HTN, goal below 130/80 2012 GERD (gastroesophageal reflux disease) 2 documented as of this encounter (statuses as of 06/05/2024) Resolved Problems Problem Noted Date Diagnosed Date Resolved Date Coronary artery disease of n ative artery of [place] heart with stable angina pectoris 08/21/2023 08/21/2023 [...] mRNA, LNP-s, No Pre serve, 2-Dose Series ([employer]) 08/28/2021,02/18/2021,01/28/2021 Pneumococcal Conjugate Vacc, 13 Valent (Prevnar) [...] BMBx being cancelled and doing PET instead. * Telephone Encounter - Fior Farmer OSA - 06/05/2024 2:58 PM EDT Pt's Val returning a call to Sarahy. Please call her back at [phone] * Telephone Encounter - Sarahy Mcallister RN - 06/05/2024 1:[address] De La Cruz's routing comment in other encounter: "Cancel the bone marrow biopsy and will get the PET scan which was requested " Left message for patient to return call to discuss. TT sent to [facility] to make them aware. [...] 06/18/2024 3:30 PM EDT Office Visit Hematology/Oncology [facility] 200 [facility] [place] [phone] Luann De La Cruz MD 200 [facility] [place] [address] 09/05/2024 1:15 PM EST Imaging Radiology [address] 132 [facility] [place] [address] 09/11/2024 1:30 PM EST Office Visit Vascular Surgery, [facility] 132 [place] [address] Darrin Lowe MD [address] [place] [address] Scheduled Procedures Name Priority Associated Diagnoses Date/Ti me COLONOSCOPY FLEXIBLE PROXIMAL DIAGNOSTIC Recall History of colon polyps Health Maintenance Due Date Last Done Comments Alpha-1 Antitrypsin 02/13/1970 Hepatitis C Screening 02/13/1970 Cologuard 02/13/1997 Fecal Occult Blood Test 02/13/1997 Sigmoidoscopy 02/13/1997 Adult Wellness Visit 02/13/2018 Colonoscopy 05/23/2020 05/23/2017 Colorectal Cancer Screening 05/23/2020 CKD PHOS USE SMARTSET 81181 2024 02/13/2023, 0 02/11/2021 COVID-19 Vaccine ( season) 2024 08/28/2021, 02/18/2021, 01/28/2021 Influenza Vaccine (FLU shot) (#1) 2024 07/10/2023, 06/23/2022, 07/12/2021, Additional history exists Albumin/Creatinine Ratio 09/11/2024 09/11/2023 GFR 11/22/2024 05/22/2024, 02/24, 02/06/2024, Additional history exists Depression Screening 01/11/2025 01/12/2024, 07/12/2017 (Declined) CKD HGB USE SMARTSET 23066 05/22/202505/22, 05/22/2024, 03/18/2024, Additional history exists O2 [...] filedocumented as of this encounter Care Teams Auto Damage Estimator Relationship Specialty Start Date End Date Savanah Geiger DO [address] [place] [address] PCP - General Family Medicine 04/11/12 documented as of this encounter
--- OUTSIDE RECORDS SUMMARY | 2024-09-04 22:32 | External Medical Summary | Summary of Care ---
Author Name Unknown Organization [facility] Address [address] [place] [address] Phone [phone] Care Team Providers Care Rotary Planer Set Up Operator Name Role Phone Caseypeiro Savanah Oswaldo JIMÉNEZ Primary Care Provider Reason for Visit * Reason Onset Date Comments Order Request 06/04/2024 Jono Advice 06/04/2024 Encounter Details Date Type Department Care Team (Late st Contact Info) Description 06/04/2024 Telephone Hematology/Oncology [facility] [address] [place] [address] Services, Scheduling [address] [place] [address] Order Request (Jono); Advice Allergies Active Allergy [...] MG Sublingual Tablet Sublingual (Nitrostat)Indicati ons:Atherosclerosis of [place] coronary artery of [place] heart without angina pectoris One tablet under [...] cancer 04/24/2020 Coronary artery disease invo lving [place] heart without angina pectoris 05/22/2019 Old myocardial infarct 12/06/2018 S/p bare metal coronary artery stent 01/12/2015 Tobacco use disorder 04/16/2012 HTN, goal below 130/80 2012 GERD (gastroesophageal reflux disease) 2 documented as of this encounter (statuses as of 06/10/2024) Resolved Problems Problem Noted Date Diagnosed Date Resolved Date Coronary artery disease of n ative artery of [place]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 Please call her back at [phone] * Telephone Encounter - Sarahy Mcallister RN - 06/05/2024 1:[address] De La Cruz's routing comment in other encounter: "Cancel the bone marrow biopsy and will get the PET scan which was requested " Left message for patient to return call to discuss. TT sent to [facility] to make them aware. * Telephone Encounter - Hong Winslow OSA - 06/04/2024 2:42 PM EDT Patient , Greta called asking if Dr. De La Cruz can place an order for anesthesia so that Pt can have his bone marrow biopsy? She states he does not want to schedule until that is ordered or he would like to go to [facility]. Please give him a call back. documented in this encounter Plan of Treatment Upcoming Encounters Date Type Department Care Team (Late st Contact Info) Description 06/11/2024 1:45 PM EDT Imaging Radiology [address] 132 [facility] [place] [address] 06/18/2024 3:30 PM EDT Office Visit Hematology/Oncology [facility] [address] [place] [address] Luann De La Cruz MD [address] [place] [address] 09/05/2024 1:15 PM EST Imaging Radiology [address] 132 [facility] [place] [address] 09/11/2024 1:30 PM EST Office Visit Vascular Surgery, [facility] 132 [facility] [place] [address] Darrin Lowe MD [address] [place] [address] Scheduled Procedures Name Priority Associated Diagnoses Date/Ti me COLONOSCOPY FLEXIBLE PROXIMAL DIAGNOSTIC Recall History of colon polyps Health Maintenance Due Date Last Done Comments Alpha-1 Antitrypsin 02/13/1970 Hepatitis C Screening 02/13/1970 Cologuard 02/13/1997 Fecal Occult Blood Test 02/13/1997 Sigmoidoscopy 02/13/1997 Adult Wellness Visit 02/13/2018 Colonoscopy 05/23/2020 05/23/2017 Colorectal Cancer Screening 05/23/2020 CKD PHOS USE SMARTSET 90102 2024 02/13/2023, 0 02/11/2021 COVID-19 Vaccine ( season) 2024 08/28/2021, 02/18/2021, 01/28/2021 Influenza Vaccine (FLU shot) (#1) 2024 07/10/2023, 06/23/2022, 07/12/2021, Additional history exists Albumin/Creatinine Ratio 09/11/2024 09/11/2023 GFR 11/22/2024 05/22/2024, 02/24, 02/06/2024, Additional history exists Depression Screening 01/11/2025 01/12/2024, 07/12/2017 (Declined) CKD HGB USE SMARTSET 66674 05/22/202505/22, 05/22/2024, 03/18/2024, Additional history exists O2 [...] filedocumented as of this encounter Care Teams Rotary Planer Set Up Operator Relationship Specialty Start Date End Date Savanah Geiger DO [address] [place] [address] PCP - General Family Medicine 04/11/12 documented as of this encounter
--- OUTSIDE RECORDS SUMMARY | 2024-09-04 22:32 | External Medical Summary | Summary of Care ---
Author Name Unknown Organization [facility] Address [address] [place] [address] Phone [phone] Care Team Providers Care Search Optimization Analyst Name Role Phone Caseypiero Savanah Oswaldo JIMÉNEZ Primary Care Provider [phone] Reason for Visit * Reason Onset Date Comments Order Request 06/04/2024 Jono Advice 06/04/2024 Encounter Details Date Type Department Care Team (Late st Contact Info) Description 06/04/2024 Telephone Hematology/Oncology [facility] [address] [place] [address] Services, Scheduling [address] [place] [address] Order Request (Jono); Advice Allergies Active Allergy [...] MG Sublingual Tablet Sublingual (Nitrostat)Indicati ons:Atherosclerosis of [place] coronary artery of [place] heart without angina pectoris One tablet [...] cancer 04/24/2020 Coronary artery disease invo lving [place] heart without angina pectoris 05/22/2019 Old myocardial infarct 12/06/2018 S/p bare metal coronary artery stent 01/12/2015 Tobacco use disorder 04/16/2012 HTN, goal below 130/80 2012 GERD (gastroesophageal reflux disease) 2 documented as of this encounter (statuses as of 06/06/2024) Resolved Problems Problem Noted Date Diagnosed Date Resolved Date Coronary artery disease of n ative artery of [place] heart with stable angina pectoris 08/21/2023 [...] mRNA, LNP-s, No Pre serve, 2-Dose Series ([employer]) 08/28/2021,02/18/2021,01/28/2021 Pneumococcal Conjugate Vacc, 13 Valent (Prevnar) [...] to Sarahy. Please call her back at [phone] * Telephone Encounter - Sarahy Mcallister RN - 06/05/2024 1:[address] De La Cruz's routing comment in other encounter: "Cancel the bone marrow biopsy and will get the PET scan which was requested " Left message for patient to return call to discuss. TT sent to [facility] to make them aware. * Telephone Encounter - Hong Winslow OSA - 06/04/2024 2:42 PM EDT Patient , Greta called asking if Dr. De La Cruz can place an order for anesthesia so that Pt can have his bone marrow biopsy? She states he does not want to schedule until that is ordered or he would like to go to [facility]. Please give him a call back. documented in this encounter Plan of Treatment Upcoming Encounters Date Type Department Care Team (Late st Contact Info) Description 06/11/2024 1:45 PM EDT Imaging Radiology [address] [place] [address] 06/18/2024 3:30 PM EDT Office Visit Hematology/Oncology [facility] [address] [place] [address] Luann De La Cruz MD [address] [place] [address] 09/05/2024 1:15 PM EST Imaging Radiology [address] [place] [address] 09/11/2024 1:30 PM EST Office Visit Vascular Surgery, [address] [place] [address] Darrin Lowe MD [address] [place] [address] Scheduled Procedures Name Priority Associated Diagnoses Date/Ti me COLONOSCOPY FLEXIBLE PROXIMAL DIAGNOSTIC Recall History of colon polyps Health Maintenance Due Date Last Done Comments Alpha-1 Antitrypsin 02/13/1970 Hepatitis C Screening 02/13/1970 Cologuard 02/13/1997 Fecal Occult Blood Test 02/13/1997 Sigmoidoscopy 02/13/1997 Adult Wellness Visit 02/13/2018 Colonoscopy 05/23/2020 05/23/2017 Colorectal Cancer Screening 05/23/2020 CKD PHOS USE SMARTSET 16244 2024 02/13/2023, 0 02/11/2021 COVID-19 Vaccine ( season) 2024 08/28/2021, 02/18/2021, 01/28/2021 Influenza Vaccine (FLU shot) (#1) 2024 07/10/2023, 06/23/2022, 07/12/2021, Additional history exists Albumin/Creatinine Ratio 09/11/2024 09/11/2023 GFR 11/22/2024 05/22/2024, 02/24, 02/06/2024, Additional history exists Depression Screening 01/11/2025 01/12/2024, 07/12/2017 (Declined) CKD HGB USE SMARTSET 05774 05/22/202505/22, 05/22/2024, 03/18/2024, Additional history exists O2 [...] filedocumented as of this encounter Care Teams Search Optimization Analyst Relationship Specialty Start Date End Date Savanah Geiger DO [address] [facility] [address] PCP - General Family Medicine 04/11/12 documented as of this encounter
--- OUTSIDE RECORDS SUMMARY | 2024-09-04 22:32 | External Medical Summary | Summary of Care ---
Author Name Unknown Organization [facility] Address [address] [place] [address] Phone [phone] Care Team Providers Care Shaft Mechanic Name Role Phone Caseypiero Savanah Oswaldo JIMÉNEZ Primary Care Provider Reason for Visit * Reason Onset Date Comments Order Request 06/04/2024 Jono Advice 06/04/2024 Encounter Details Date Type Department Care Team (Late st Contact Info) Description 06/04/2024 Telephone Hematology/Oncology [facility] [address] [place] [address] Services, Scheduling [address] [place] [address] Order Request (Jono); Advice Allergies Active Allergy Reactions Criticality Noted Date Comments Calcium Carb-Cholecalciferol 016 documented as of this encounter (statuses as of 06/07/2024) Medications Medication Sig Dispensed Refills Start Date [...] MG Sublingual Tablet Sublingual (Nitrostat)Indicati ons:Atherosclerosis of [place] coronary artery of [place] heart without angina pectoris One tablet under [...] as of this encounter (statuses as of 06/07/2024) Active Problems Problem Noted Date Diagnosed Date [...] cancer 04/24/2020 Coronary artery disease invo lving [place] heart without angina pectoris 05/22/2019 Old myocardial infarct 12/06/2018 S/p bare metal coronary artery stent 01/12/2015 Tobacco use disorder 04/16/2012 HTN, goal below 130/80 2012 GERD (gastroesophageal reflux disease) 2 documented as of this encounter (statuses as of 06/07/2024) Resolved Problems Problem Noted Date Diagnosed Date Resolved Date Coronary artery disease of n ative artery of [place] heart with stable angina pectoris 08/21/2023 08/21/2023 [...] as of this encounter (statuses as of 06/07/2024) Immunizations Name Administration Dates Next Due COVID-19 mRNA, LNP-s, No Pre serve, 2-Dose Series ([employer]) 08/28/2021,02/18/2021,01/28/2021 Pneumococcal Conjugate Vacc, 13 Valent (Prevnar) [...] to Sarahy. Please call her back at [phone] * Telephone Encounter - Sarahy Mcallister RN - 06/05/2024 1:[address] De La Cruz's routing comment in other encounter: "Cancel the bone marrow biopsy and will get the PET scan which was requested " Left message for patient to return call to discuss. TT sent to [facility] to make them aware. * [...] Description 06/11/2024 1:45 PM EDT Imaging Radiology [address] [place] [address] 06/18/2024 3:30 PM EDT Office Visit Hematology/Oncology [facility] [address] [place] [address] Luann De La Cruz MD [address] [place] [address] 09/05/2024 1:15 PM EST Imaging Radiology [address] [place] [address] 09/11/2024 1:30 PM EST Office Visit Vascular Surgery, [address] [place] [address] Darrin Lowe MD [address] [place] [address] Scheduled Procedures Name Priority Associated Diagnoses Date/Ti me COLONOSCOPY FLEXIBLE PROXIMAL DIAGNOSTIC Recall History of colon polyps Health Maintenance Due Date Last Done Comments Alpha-1 Antitrypsin 02/13/1970 Hepatitis C Screening 02/13/1970 Cologuard 02/13/1997 Fecal Occult Blood Test 02/13/1997 Sigmoidoscopy 02/13/1997 Adult Wellness Visit 02/13/2018 Colonoscopy 05/23/2020 05/23/2017 Colorectal Cancer Screening 05/23/2020 CKD PHOS USE SMARTSET 51703 2024 02/13/2023, 0 02/11/2021 COVID-19 Vaccine ( season) 2024 08/28/2021, 02/18/2021, 01/28/2021 Influenza Vaccine (FLU shot) (#1) 2024 07/10/2023, 06/23/2022, 07/12/2021, Additional history exists Albumin/Creatinine Ratio 09/11/2024 09/11/2023 GFR 11/22/2024 05/22/2024, 02/24, 02/06/2024, Additional history exists Depression Screening 01/11/2025 01/12/2024, 07/12/2017 (Declined) CKD HGB USE SMARTSET 30782 05/22/202505/22, 05/22/2024, 03/18/2024, Additional history exists O2 [...] filedocumented as of this encounter Care Teams Shaft Mechanic Relationship Specialty Start Date End Date Savanah Geiger DO [address] [facility] [place] [address] PCP - General Family Medicine 04/11/12 documented as of this encounter
--- OUTSIDE RECORDS SUMMARY | 2024-09-04 22:33 | External Medical Summary | Summary of Care ---
Author Name Unknown Organization [facility] Address [address] [place] [address] Phone [phone] Care Team Providers Care Psychiatric Aide Name Role Phone Caseypiero Savanah Oswaldo JIMÉNEZ Primary Care Provider Reason for Visit * Reason Onset Date Comments Scheduling 06/04/2024 Encounter Details Date Type Department Care Team (Late st Contact Info) Description 06/04/2024 Telephone Hematology/Oncology, [address] [address] Luann De La Cruz MD [address] [place] [address] Scheduling Allergies Active Allergy Reactions Criticality Noted Date Comments Calcium Carb-Cholecalciferol 016 documented as of this encounter (statuses as of 06/04/2024) Medications Medication Sig Dispensed Refills Start Date [...] MG Sublingual Tablet Sublingual (Nitrostat)Indicati ons:Atherosclerosis of campo coronary artery of campo heart without angina pectoris One tablet under [...] as of this encounter (statuses as of 06/04/2024) Active Problems Problem Noted Date Diagnosed Date [...] cancer 04/24/2020 Coronary artery disease invo lving campo heart without angina pectoris 05/22/2019 Old myocardial infarct 12/06/2018 S/p bare metal coronary artery stent 01/12/2015 Tobacco use disorder 04/16/2012 HTN, goal below 130/80 2012 GERD (gastroesophageal reflux disease) 2 documented as of this encounter (statuses as of 06/04/2024) Resolved Problems Problem Noted Date Diagnosed Date Resolved Date Coronary artery disease of n ative artery of campo heart with stable angina pectoris 08/21/2023 08/21/2023 Dehydration 02/01/2021 03/29/2022 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 Atherosclerosis of coronary artery without angina pectoris 09/14/2018 03/29/2022 ST elevation myocardial infarction (STEMI) 03/20/2017 12/06/2018 Lung nodule 10/14/2015 03/29/2022 ST elevation myocardial infa rction (STEMI) involving other coronary artery 05/19/2015 03/20/[address] elevation [place] (STEMI) 01/12/201508/26 Myocardial infarction 02/03/20142017 COPD, moderate 08/27/2013 08/06/2020 Overview: Per COPD GOLD Classification Noncompliance 03/13/2013 03/21/2017 Anemia 05/03/2012 03/29/2022 COPD, severity to be determined 04/16/2012 08/27/2013 Dyslipidemia, goal LDL below 70 04/16/2012 03/29/2022 documented as of this encounter (statuses as of 06/04/2024) Immunizations Name Administration Dates Next Due COVID-19 mRNA, LNP-s, No Pre serve, 2-Dose Series (Asthmatracker) 08/28/2021,02/18/2021,01/28/2021 Pneumococcal Conjugate Vacc, 13 Valent (Prevnar) [...] encounter Miscellaneous Notes * Telephone Encounter - Niharika Crum OSA - 06/04/2024 11:25 AM EDT Patient had called about his Bone marrow biopsy that was for 06/03 at [facility] but the patient thought he was talking to [facility] that he wants to reschedule it was he so nervous and wants put under, I told him I would try and transfer the call to them he was not very happy and states he [facility] . documented in this encounter Plan of Treatment Upcoming Encounters Date Type Department Care Team (Late st Contact Info) Description 06/18/2024 3:30 PM EDT Office Visit Hematology/Oncology [facility] [address] [place] [phone] Luann De La Cruz MD [address] [place] [address] 09/05/2024 1:15 PM EST Imaging Radiology [facility] 1st [facility] [address] [facility] [place] [address] 09/11/2024 1:30 PM EST Office Visit Vascular Surgery, [facility] 132 [facility] [place] [address] Darrin Lowe MD [address] [place] [address] Scheduled Procedures Name Priority Associated Diagnoses Date/Ti me COLONOSCOPY FLEXIBLE PROXIMAL DIAGNOSTIC Recall History of colon polyps Health Maintenance Due Date Last Done Comments Alpha-1 Antitrypsin 02/13/1970 Hepatitis C Screening 02/13/1970 Cologuard 02/13/1997 Fecal Occult Blood Test 02/13/1997 Sigmoidoscopy 02/13/1997 Adult Wellness Visit 02/13/2018 Colonoscopy 05/23/2020 05/23/2017 Colorectal Cancer Screening 05/23/2020 CKD PHOS USE SMARTSET 32000 2024 02/13/2023, 0 02/11/2021 COVID-19 Vaccine ( season) 2024 08/28/2021, 02/18/2021, 01/28/2021 Influenza Vaccine (FLU shot) (#1) 2024 07/10/2023, 06/23/2022, 07/12/2021, Additional history exists Albumin/Creatinine Ratio 09/11/2024 09/11/2023 GFR 11/22/2024 05/22/2024, 02/24, 02/06/2024, Additional history exists Depression Screening 01/11/2025 01/12/2024, 07/12/2017 (Declined) CKD HGB USE SMARTSET 82163 05/22/202505/22, 05/22/2024, 03/18/2024, Additional history exists O2 [...] filedocumented as of this encounter Care Teams Psychiatric Aide Relationship Specialty Start Date End Date Savanah Geiger DO [address] [facility] [place] [address] PCP - General Family Medicine 04/11/12 documented as of this encounter
--- OUTSIDE RECORDS SUMMARY | 2024-09-04 22:33 | External Medical Summary | Summary of Care ---
Author Name Unknown Organization [facility] Address [address] [place] [address] Phone [phone] Care Team Providers Care Childhood Development Teacher Name Role Phone Caseypiero Savanah Oswaldo JIMÉNEZ Primary Care Provider Reason for Visit * Reason Onset Date Comments Order Request 06/04/2024 Jono Encounter Details Date Type Department Care Team (Late st Contact Info) Description 06/04/2024 Telephone Hematology/Oncology [facility] [address] [place] [address] Services, Scheduling [address] [place] [address] Order Request (Jono) Allergies Active Allergy Reactions Criticality Noted Date [...] MG Sublingual Tablet Sublingual (Nitrostat)Indicati ons:Atherosclerosis of crow coronary artery of crow heart without angina pectoris One tablet under [...] cancer 04/24/2020 Coronary artery disease invo lving crow heart without angina pectoris 05/22/2019 Old myocardial infarct 12/06/2018 S/p bare metal coronary artery stent 01/12/2015 Tobacco use disorder 04/16/2012 HTN, goal below 130/80 2012 GERD (gastroesophageal reflux disease) 2 documented as of this encounter (statuses as of 06/05/2024) Resolved Problems Problem Noted Date Diagnosed Date Resolved Date Coronary artery disease of n ative artery of crow heart with stable angina pectoris 08/21/2023 08/21/2023 [...] mRNA, LNP-s, No Pre serve, 2-Dose Series (Vivartes) 08/28/2021,02/18/2021,01/28/2021 Pneumococcal Conjugate Vacc, 13 Valent (Prevnar) [...] return call to discuss. TT sent to [facility] to make them aware. * Telephone Encounter - Hong Winslow OSA - 06/04/2024 2:42 PM EDT Patient , Greta called asking if Dr. De La Cruz can place an order for anesthesia so that Pt can have his bone marrow biopsy? She states he does not want to schedule until that is ordered or he would like to go to [facility]. Please give him a call back. documented in this encounter Plan of Treatment Upcoming Encounters Date Type Department Care Team (Late st Contact Info) Description 06/18/2024 3:30 PM EDT Office Visit Hematology/Oncology [facility] [place] [address] [place] [phone] Luann De La Cruz MD [address] [place] [address] 09/05/2024 1:15 PM EST Imaging Radiology [address], [place] [address] [facility] [place] [address] 09/11/2024 1:30 PM EST Office Visit Vascular Surgery, [facility] [address] [place] [address] Darrin Lowe MD [address] [place] [address] Scheduled Procedures Name Priority Associated Diagnoses Date/Ti me COLONOSCOPY FLEXIBLE PROXIMAL DIAGNOSTIC Recall History of colon polyps Health Maintenance Due Date Last Done Comments Alpha-1 Antitrypsin 02/13/1970 Hepatitis C Screening 02/13/1970 Cologuard 02/13/1997 Fecal Occult Blood Test 02/13/1997 Sigmoidoscopy 02/13/1997 Adult Wellness Visit 02/13/2018 Colonoscopy 05/23/2020 05/23/2017 Colorectal Cancer Screening 05/23/2020 CKD PHOS USE SMARTSET 66309 2024 02/13/2023, 0 02/11/2021 COVID-19 Vaccine ( season) 2024 08/28/2021, 02/18/2021, 01/28/2021 Influenza Vaccine (FLU shot) (#1) 2024 07/10/2023, 06/23/2022, 07/12/2021, Additional history exists Albumin/Creatinine Ratio 09/11/2024 09/11/2023 GFR 11/22/2024 05/22/2024, 02/24, 02/06/2024, Additional history exists Depression Screening 01/11/2025 01/12/2024, 07/12/2017 (Declined) CKD HGB USE SMARTSET 10539 05/22/202505/22, 05/22/2024, 03/18/2024, Additional history exists O2 [...] filedocumented as of this encounter Care Teams Childhood Development Teacher Relationship Specialty Start Date End Date Savanah Geiger DO [address] [place] [address] PCP - General Family Medicine 04/11/12 documented as of this encounter
--- OUTSIDE RECORDS SUMMARY | 2024-09-04 22:33 | External Medical Summary | Summary of Care ---
Author Name Unknown Organization [facility] Address [address] [place] [address] Phone [phone] Care Team Providers Care Gambling Monitor Name Role Phone Caseypiero Savanah Oswaldo JIMÉNEZ Primary Care Provider Reason for Visit * Reason Onset Date Comments Order Request 06/04/2024 Jono Advice 06/04/2024 Encounter Details Date Type Department Care Team (Late st Contact Info) Description 06/04/2024 Telephone Hematology/Oncology [facility] [address] [place] [address] Services, Scheduling [address] [place] [address] Order Request (Jono); Advice Allergies Active Allergy [...] MG Sublingual Tablet Sublingual (Nitrostat)Indicati ons:Atherosclerosis of miami coronary artery of miami heart [...] mRNA, LNP-s, No Pre serve, 2-Dose Series ([facility]) 08/28/2021,02/18/2021,01/28/2021 Pneumococcal Conjugate Vacc, 13 Valent (Prevnar) [...] encounter Miscellaneous Notes * Telephone Encounter - Fior Farmer OSA - 06/05/2024 2:58 PM EDT Pt's Val returning a call to Sarahy. Please call her back at [phone] * Telephone Encounter - Sarahy Mcallister RN - 06/05/2024 1:[address] De La Cruz's routing comment in other encounter: "Cancel the bone marrow biopsy and will get the PET scan which was requested " Left message for patient to return call to discuss. TT sent to [facility] to make them aware. * Telephone [...] 06/18/2024 3:30 PM EDT Office Visit Hematology/Oncology [facility] [address] [place] [phone] Luann De La Cruz MD [address] [place] [address] 09/05/2024 1:15 PM EST Imaging Radiology [facility]st [facility] [address] [place] [address] 09/11/2024 1:30 PM EST Office Visit Vascular Surgery, [facility] [address] [place] [address] Darrin Lowe MD [address] [place] [facility] [place] [address] Scheduled Procedures Name Priority Associated Diagnoses Date/Ti me COLONOSCOPY FLEXIBLE PROXIMAL DIAGNOSTIC Recall History of colon polyps Health Maintenance Due Date Last Done Comments Alpha-1 Antitrypsin 02/13/1970 Hepatitis C Screening 02/13/1970 Cologuard 02/13/1997 Fecal Occult Blood Test 02/13/1997 Sigmoidoscopy 02/13/1997 Adult Wellness Visit 02/13/2018 Colonoscopy 05/23/2020 05/23/2017 Colorectal Cancer Screening 05/23/2020 CKD PHOS USE SMARTSET 65021 2024 02/13/2023, 0 02/11/2021 COVID-19 Vaccine ( season) 2024 08/28/2021, 02/18/2021, 01/28/2021 Influenza Vaccine (FLU shot) (#1) 2024 07/10/2023, 06/23/2022, 07/12/2021, Additional history exists Albumin/Creatinine Ratio 09/11/2024 09/11/2023 GFR 11/22/2024 05/22/2024, 02/24, 02/06/2024, Additional history exists Depression Screening 01/11/2025 01/12/2024, 07/12/2017 (Declined) CKD HGB USE SMARTSET 77227 05/22/202505/22, 05/22/2024, 03/18/2024, Additional history exists O2 [...] filedocumented as of this encounter Care Teams Gambling Monitor Relationship Specialty Start Date End Date Savanah Geiger DO [address] [place] [address] PCP - General Family Medicine 04/11/12 documented as of this encounter
--- OUTSIDE RECORDS SUMMARY | 2024-09-04 22:33 | External Medical Summary | Summary of Care ---
Author Name Unknown Organization [facility] Address [address] [place] [address] Phone [phone] Care Team Providers Care Oil And Gas Specialist Name Role Phone GriffinreedSavanah DO Primary Care Provider [phone] Reason for Referral * Precert (Within 10 days (routine)) - Pending Review Specialty Diagnoses / Procedures Referred By Suki person Referred To Contact Radiology Diagnoses Multiple myeloma not having achieved remission (HCC) Procedures PET CT WHOLE BODY FDG Luann De La Cruz MD [address], [place] [address] Referral ID Status Reason Start Date Expiration Date V isits Requested Visits Authorized [id number] Pending Review 06/12/[phone] Encounter Details Date Type Department Care Team (Late st Contact Info) Description 06/05/2024 Orders Only Hematology/Oncology [facility] [address] [place] [phone] Luann De La Cruz MD [address] [facility] [address] [place] [address] Multiple myeloma not having achieved remission (HCC)* [...] MG Sublingual Tablet Sublingual (Nitrostat)Indicati ons:Atherosclerosis of ruby coronary artery of ruby heart without angina pectoris One tablet under [...] cancer 04/24/2020 Coronary artery disease invo lving ruby heart without angina pectoris 05/22/2019 Old myocardial infarct 12/06/2018 S/p bare metal coronary artery stent 01/12/2015 Tobacco use disorder 04/16/2012 HTN, goal below 130/80 2012 GERD (gastroesophageal reflux disease) 2 documented as of this encounter (statuses as of 06/05/2024) Resolved Problems Problem Noted Date Diagnosed Date Resolved Date Coronary artery disease of n ative artery of ruby heart with stable angina pectoris 08/21/2023 08/21/2023 Dehydration 02/01/2021 03/29/2022 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 Atherosclerosis of coronary artery without angina pectoris 09/14/2018 03/29/2022 ST elevation myocardial infarction (STEMI) 03/20/2017 12/06/2018 Lung nodule 10/14/2015 03/29/2022 ST elevation myocardial infa rction (STEMI) involving other coronary artery 05/19/2015 03/20/[address] elevation MD (STEMI) 01/12/201508/26 Myocardial infarction 02/03/20142017 COPD, moderate 08/27/2013 08/06/2020 Overview: Per COPD GOLD Classification Noncompliance 03/13/2013 03/21/2017 Anemia 05/03/2012 03/29/2022 COPD, severity to be determined 04/16/2012 08/27/2013 Dyslipidemia, goal LDL below 70 04/16/2012 03/29/2022 documented as of this encounter (statuses as of 06/05/2024) Immunizations Name Administration Dates Next Due COVID-19 mRNA, LNP-s, No Pre serve, 2-Dose Series ([employer]Waves) 08/28/2021,02/18/2021,01/28/2021 Pneumococcal Conjugate Vacc, 13 Valent (Prevnar) [...] 06/18/2024 3:30 PM EDT Office Visit Hematology/Oncology [facility] [address] [place] [phone] Luann De La Cruz MD [address] [place] [address] 09/05/2024 1:15 PM EST Imaging Radiology [facility]st [facility] 132 [facility] [place] [address] 09/11/2024 1:30 PM EST Office Visit Vascular Surgery, [facility] [address] [place] [address] Darrin Lowe MD [address] [place] [address] Scheduled Orders Name Type Priority Associated Diagnoses Orde r Schedule PET CT WHOLE BODY FDG Medical Imaging Routine Multiple myeloma not having achieved remission (HCC) Expected: 06/12/2024, Expires: 07/05/2025 Scheduled Procedures Name Priority Associated Diagnoses Date/Ti me COLONOSCOPY FLEXIBLE PROXIMAL DIAGNOSTIC Recall History of colon polyps Health Maintenance Due Date Last Done Comments Alpha-1 Antitrypsin 02/13/1970 Hepatitis C Screening 02/13/1970 Cologuard 02/13/1997 Fecal Occult Blood Test 02/13/1997 Sigmoidoscopy 02/13/1997 Adult Wellness Visit 02/13/2018 Colonoscopy 05/23/2020 05/23/2017 Colorectal Cancer Screening 05/23/2020 CKD PHOS USE SMARTSET 78147 2024 02/13/2023, 0 02/11/2021 COVID-19 Vaccine ( season) 2024 08/28/2021, 02/18/2021, 01/28/2021 Influenza Vaccine (FLU shot) (#1) 2024 07/10/2023, 06/23/2022, 07/12/2021, Additional history exists Albumin/Creatinine Ratio 09/11/2024 09/11/2023 GFR 11/22/2024 05/22/2024, 02/24, 02/06/2024, Additional history exists Depression Screening 01/11/2025 01/12/2024, 07/12/2017 (Declined) CKD HGB USE SMARTSET 08941 05/22/202505/22, 05/22/2024, 03/18/2024, Additional history exists O2 [...] remission documented in this encounter Care Teams Oil And Gas Specialist Relationship Specialty Start Date End Date Savanah Geiger DO [address] [place] [address] PCP - General Family Medicine 04/11/12 documented as of this encounter
[2024-09-05 05:54] LABS: Hematocrit (blood only) 29.3 % (42.0-52.0); Hemoglobin 9.5 g/dl (14.0-18.0); Mean Corpuscular Hemoglobin 31.3 pg (25.0-34.0); Mean Corpuscular Hgb Conc 32.4 g/dL (32.0-36.0); Mean Corpuscular Volume 96.4 fL (80.0-100.0); Mean Platelet Volume 11.2 fL (9.4-12.4); Platelet Count 214 K/uL (130-400); RDW Coefficient of Variation 16.1 % (11.5-14.5); RDW Standard Deviation 57.1 fL (36.4-46.3); Red Blood Count 3.04 M/uL (4.70-6.10); White Blood Count 11.74 K/ul (4.8-10.8)
[2024-09-05 06:05] LABS: BUN Creatinine Ratio 22.7 (10-20); Calcium 8.1 mg/dl (8.6-10.3); Creatinine Clr Calc Pharmacy 40.5 ml/min; Magnesium 1.7 mg/dl (1.7-2.4); Phosphorus 2.9 mg/dl (2.5-4.9); Potassium 4.4 mmol/L (3.5-5.1)
[2024-09-05 06:16] LABS: Basophils # (auto) 0.01 K/uL (0.00-0.20); Basophils % (auto) 0.1 %; Eosinophils # (auto) 0.02 K/uL (0.00-0.50); Eosinophils % (auto) 0.2 %; Immature Granulocytes # (auto) 0.18 K/uL (0.01-0.20); Immature Granulocytes % (auto) 1.5 %; Lymphocytes # (auto) 0.57 K/uL (1.20-3.40); Lymphocytes % (auto) 4.9 %; Monocytes # (auto) 0.37 K/uL (0.11-0.59); Monocytes % (auto) 3.2 %; Neutrophils # (auto) 10.59 K/uL (1.40-6.50); Neutrophils % (auto) 90.1 %
[2024-09-05] MEDS: SODIUM CHLORIDE 0.9% 1,000 ML IV SCH (09:52)
--- NOTE | 2024-09-05 11:03 | Hospitalist Progress Note ---
Date of Service September 05, 2024 Assessment & Plan (1) Hypoxia: (2) Multiple myeloma: (3) COPD (chronic obstructive pulmonary disease): (4) Atrial fibrillation: (5) Hypertension: (6) GERD (gastroesophageal reflux disease): Plan The patient is a 74-year-old male with a past medical history of multiple myeloma, C. difficile x 2, COPD, A-fib, GERD, CAD, HTN who presents to the ED on 09/03/2024 with complaints of shortness of breath intermittently and a cough x 7 days. Acute hypoxic respiratory failure COPD Exacerbation Possible Pneumonia O2 saturation <90% on room air noted at PCPs office Patient was given IV Solu-Medrol as well as a breathing treatment with DuoNebs and a dose of IV Zosyn in the emergency room Hypoxia resolved on arrival to the ER Respiratory viral panel negative chest x-ray noting no acute pathology Chest CTA with no noted PE but noted severe pulmonary emphysema with chronic fibrosis and "new subtle nodular consolidative foci" within the right middle and lower lobes. Radiology recommending 3 month follow-up chest CT. continue IV Rocephin and azithromycin for treatment of a possible community- acquired pneumonia Continue home steroid dexamethasone, patient with continued improvement will d efer on additional steroids at this time As needed DuoNebs Patient with significant improvement of his symptoms Continue to monitor Acute Kidney Injury Creatinine elevated to 1.5 on 09/05/2024, up from 1.3 the day before Patient notes a history of flatus IVF for 1 bag Continue to monitor Hx C. difficile Continue lactobacillus, prophylactic Vanco ordered while on IV antibiotics Hx multiple myeloma: On Revlimid and Decadron at home, continue Decadron every Monday, hold Revlimid for now Hx AF/CAD/cardiac stents: Continue metoprolol/aspirin, remains in sinus rhythm, telemetry monitoring Continue other home meds as ordered Diet: HH DVT prophylaxis: Lovenox Dispo: Home once medically stable Admission and Anticipated Discharge Date Admission Date: September 03, 2024 Subjective Patient was seen in the a.m., anxious for discharge [place], states he has been drinking a lot of tea for trying to push the fluids. Denies excessive urination however. Notes continued improvement in breathing as well as cough Case and progress discussed with patient's via telephone Review of Systems Review of Systems: All systems reviewed & are unremarkable except as noted in Subjective Physical Exam Physical Exam: General: Alert, oriented. No acute distress Neuro: No gross deficits HEENT: NC/AT CV: RRR Resp: Breath sounds decreased bilaterally Abdomen: Soft, nontender Extremities: No edema in lower extremities bilaterally. Results & Data Results & Data Vital Signs (Past 12 Hours) Vital Signs Temp Pulse Pulse Resp BP Pulse Ox O2 Del Method 09/05/24 08:00 69 09/05/24 07:49 36.5 C 76 18 128/86 97 Room Air Diagnostic Findings Chest X-Ray 09/03/24 12:20 XR chest 1V portable CLINICAL HISTORY: sob TECHNIQUE: Single frontal radiograph of the chest was obtained. Comparison: Comparison is made to chest radiograph 08/22/2023 FINDINGS: No lines and tubes are seen. Cardiomegaly is noted. The lungs are clear. No evidence of pleural effusion or pneumothorax. IMPRESSION: No acute abnormalities and in particular no radiographic evidence of pneumonia. Previously noted airspace opacity has essentially resolved. ACT 112: Negative or not required by law. Electronically signed by: Tad Younger M.D. 09/03/2024 12:40 PM Chest CTA 09/03/24 13:33 CT angio chest PE protocol CT DOSE: 774.97 mGy.cm HISTORY: 74 years-old Male with PE. Acute cough with shortness of breath TECHNIQUE: Multiple CTA images of the chest were obtained after the intravenous administration of 119 ml Optiray. Coronal and sagittal MIPS were obtained from the axial data set and were submitted for review. All measurements were obtained according to NASCET criteria. A dose lowering technique was utilized adhering to the principles of ALARA. COMPARISON: Chest CT 08/22/2023, 04/25/2020. FINDINGS: Unremarkable thyroid. No lymphadenopathy. Mild cardiomegaly with extensive coronary artery calcifications. Mild dilation of the ascending thoracic aorta at the level of the main pulmonary artery, 4.3 cm. This is unchanged from prior. No pulmonary emboli identified. Severe pulmonary emphysema redemonstrated. Subpleural fibrotic changes are noted along with patchy subpleural groundglass densities in the mid to lower lung zones, right greater than left. There is improved aeration of the subpleural right upper lobe compared to the prior study. Progressive subpleural opacities within the right middle lobe lateral subpleural segment on image 96 series 4 is 9 mm nodular component. Mild subcentimeter nodular consolidative foci within the right lower lobe has slightly progressed. Stable solid nodules in the left lower lobe measure up to 5 mm. Central airways are patent. Cholecystectomy. Bilateral perinephric stranding. There are a few hepatic cysts noted. No acute fracture. Degenerative changes of the shoulders and spine with chronic appearing thoracic compression deformities. A lucent expansile lesions within the posterior lateral aspect of the right seventh rib with cortical thinning which appears more conspicuous on the prior study. IMPRESSION: 1. No pulmonary emboli identified. 2. Severe pulmonary emphysema with chronic fibrosis. 3. There is improved aeration of the subpleural right upper lobe compared to the prior study, however there is new subtle nodular consolidative foci present within the right middle and lower lobes. These findings are likely infectious or inflammatory, however 3 month follow-up chest CT recommended. 4. No lymphadenopathy. 5. Expansile lucent bone lesion of the right seventh rib. This lesion has been present dating back to the exam from 2019 where it demonstrated a healing subacute associated pathologic fracture. This may represent an enchondroma. ACT 112: Negative or not required by law. The above report was generated using voice recognition software. It may contain grammatical, syntax or spelling errors. Electronically signed by: Quirino Soto M.D. 09/03/2024 2:37 PM (2) Multiple myeloma Multiple myeloma remission status: unspecified Qualified Code(s): C90.00 - Multiple myeloma not having achieved remission
--- OUTSIDE RECORDS SUMMARY | 2024-09-05 12:07 | External Medical Summary | Summary of Care ---
Author Name Unknown Organization [facility] Address [address] [place] [address] Phone [phone] Care Team Providers Care Associate Buyer Name Role Phone MarcelinajaskaranSavanah DO Primary Care Provider Reason for Visit * Reason Comments Outpatient Testing Encounter Details Date Type Department Care Team (Late st Contact Info) Description 09/03/2024 10:00 AM EST Laboratory Laboratory, [facility] [address] [place] [phone] [place], Laboratory [address] [place], [place] [id number] Multiple myeloma not having achieved remission (HCC) [...] Sublingual Tablet Sublingual (Nitrostat)Asha cations:Atheros clerosis of [place] coronary artery of [place] heart [...] cancer 04/24/2020 Coronary artery disease invo lving [place] heart without angina pectoris 05/22/2019 Old myocardial infarct 12/06/2018 S/p bare metal coronary artery stent 01/12/2015 Tobacco use disorder 04/16/2012 HTN, goal below 130/80 2012 GERD (gastroesophageal reflux disease) 2 documented as of this encounter (statuses as of 09/03/2024) Resolved Problems Problem Noted Date Diagnosed Date Resolved Date Coronary artery disease of n ative artery of [place] heart with stable angina pectoris 08/21/2023 08/21/2023 [...] mRNA, LNP-s, No Pre serve, 2-Dose Series ([employer]) 08/28/2021,02/18/2021,01/28/2021 Pneumococcal Conjugate Vacc, 13 Valent (Prevnar) [...] Team (Late st Contact Info) Description 09/03/2024 10:40 AM EST Office Visit [facility] [place] [address] [facility] [place] [phone] Octavio Chavira MD [address] [facility] [place] [address] 09/04/2024 9:00 AM EST Pharmacy Pharmacy Hematology Oncology [facility] [address] [place] [address] [facility] [place] Hem/Onc [address] [place] [address] 09/05/2024 1:15 PM EST Imaging Radiology [facility] [address] [facility] [address] [facility] [place] [address] 09/11/2024 1:30 PM EST Office Visit Vascular Surgery, [facility] [address] [facility] [place] [address] Darrin Lowe MD [address] [place] [address] 09/16/2024 10:00 AM EST Laboratory Laboratory, [facility] [address] [facility] [phone] [place], [facility] [place] [address] 09/17/2024 12:30 PM EST Office Visit Hematology/Oncology [facility] [place] [address] [place] [phone] Luann De La Cruz MD [address] [place] [address] 09/17/2024 1:00 PM EST Hem/Onc Treatment Hematology/Oncology Treatment, [place] [address] [place] [phone] Tresa, Chair 9 Hem Onc [facility] [address] [facility] [place] [address] Pending Results Name Type Priority Associated Diagnoses Date /Time SERUM PROTEIN ELECTROPHORESIS REFLEX PROFILE Lab STAT Multiple myeloma not having achieved remission (HCC) 09/03/2024 10:14 AM EST IMMUNOGLOBULIN QUANTITATIVE Lab STAT Multiple myeloma not having achieved remission (HCC) 09/03/2024 10:14 AM EST SERUM FREE LIGHT CHAINS Lab STAT Multiple myeloma not having achieved remission (HCC) 09/03/2024 10:14 AM EST CBC WITH WBC DIFFERENTIAL Lab STAT Multiple myeloma not having achieved remission (HCC) 09/03/2024 10:14 AM EST COMPREHENSIVE METABOLIC PANEL Lab STAT Multiple myeloma not having achieved remission (HCC) 09/03/2024 10:14 AM EST CBC Lab STAT Multiple myeloma not having achieved remission (HCC) 09/03/2024 10:14 AM EST DIFFERENTIAL, AUTOMATED Lab STAT Multiple myeloma not having achieved remission (HCC) 09/03/2024 10:14 AM EST Scheduled Procedures Name Priority Associated [...] Additional history exists CKD PHOS USE SMARTSET 09036 07/09/202506/25, 02/13/2023, 02/11/2021 Albumin/Creatinine Ratio 07/23/2025 07/23/2024, 08/25 CKD HGB USE SMARTSET 31103 08/20/202508/20, 08/20/2024, 08/06/2024, Additional history exists O2 [...] remission documented in this encounter Care Teams Associate Buyer Relationship Specialty Start Date End Date Savanah Geiger DO [address] [place] [address] PCP - General Family Medicine 04/11/12 documented as of this encounter
--- OUTSIDE RECORDS SUMMARY | 2024-09-05 12:07 | External Medical Summary ---
Author Name Unknown Address Unknown Organization [id number]:[facility] [place] [address] [facility] [place] [address] Laboratory Report Ordering Provider Test Date Status MARY ANNE LAGUNA 09/03/2024 10:14:18 Final Observation Date Value Abnormality Reference (Units ) Status BUN 09/03/2024 10:14:18 19 6-20 (mg/dL) Final Creatinine 09/03/2024 10:14:18 1.4 Above high normal 0.6-1.2 (mg/dL) Final Glomerular filtration rate/1.73 sq M.predicted [Volume Rate/Area] in Serum, Plasma or Blood by Creatinine-based formula (CKD-EPI) 09/03/2024 10:14:18 55 Below low normal >=60 (mL/min) Final eGFR is calculated based on the CKD-EPI 2020 equation. Sodium 09/03/2024 10:14:18 139 135-146 (m mol/L) Final Potassium 09/03/2024 10:14:18 4.0 3.5-5.1 (m mol/L) Final Cl 09/03/2024 10:14:18 101 98-107 (mm ol/L) Final CO2 09/03/2024 10:14:18 24 22-32 (mmo l/L) Final Anion gap 09/03/2024 10:14:18 14 7-15 (mmol /L) Final Glucose 09/03/2024 10:14:18 105 70-120 (mg /dL) Final Albumin 09/03/2024 10:14:18 3.8 3.8-5.0 (g /dL) Final AST (Aspartate aminotransferase) 09/03/2024 10:14:18 15 10-50 (U/L) Fin al Alk Phos 09/03/2024 10:14:18 99 35-130 (U/ L) Final Bilirubin, Total 09/03/2024 10:14:18 0.3 <=1 .2 (mg/dL) Final Calcium 09/03/2024 10:14:18 8.4 8.4-10.2 ( mg/dL) Final Protein 09/03/2024 10:14:18 5.9 Below low normal 6.0 -8.3 (g/dL) Final ALT (Alanine aminotransferase) 09/03/2024 10:14:18 11 10-50 (U/L) Andrzej caal Performing Location [facility] [place] [address] [facility] [address]
--- OUTSIDE RECORDS SUMMARY | 2024-09-05 12:07 | External Medical Summary | Summary of Care ---
Author Name Unknown Organization [facility] Address [address] [place] [address] Phone [phone] Care Team Providers Care Business Services Sales Representative Name Role Phone Savanah Geiger Primary Care Provider + [phone] Reason for Visit * Reason Comments Acute Patient is here toda y due to cough, cold and flu symptoms per . Patients states he started with symptoms last week and has been getting progressively worse. states that his breathing is becoming labored and cough is productive. Encounter Details Date Type Department Care Team (Late st Contact Info) Description 09/03/2024 10:40 AM EST Office Visit [facility] [address] [facility] [place] [address] Octavio Chavira MD [address] [place], [place] [id number] Special screening for malignant neoplasms, colon*; COPD, group B, by GOLD 2017 classification ([facility]); Multiple myeloma, remission status unspecified ([facility]) Allergies Active Allergy Reactions Criticality Noted Date [...] for up to two weeks., Reported on 09/03/2024 Ondansetron HCl 8 MG Oral Tablet (Zofran)Indicat [...] Sublingual Tablet Sublingual (Nitrostat)Asha cations:Atheros clerosis of torres martinez coronary artery of torres martinez heart without angina pectoris One tablet under [...] Active Additional Information Patient not taking.Reported on 09/03/2024 Metoprolol Tartrate 50 MG Oral Tablet (Lopressor)Asha [...] ultiple myeloma not having achieved remission (HCC),Hypocalce tahsi Take 1 Tablet by mouth in the [...] cancer 04/24/2020 Coronary artery disease invo lving torres martinez heart without angina pectoris 05/22/2019 Old myocardial infarct 12/06/2018 S/p bare metal coronary artery stent 01/12/2015 Tobacco use disorder 04/16/2012 HTN, goal below 130/80 2012 GERD (gastroesophageal reflux disease) 2 documented as of this encounter (statuses as of 09/03/2024) Resolved Problems Problem Noted Date Diagnosed Date Resolved Date Coronary artery disease of n ative artery of torres martinez heart with stable angina pectoris 08/21/2023 08/21/2023 Dehydration 02/01/2021 03/29/2022 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 Atherosclerosis of coronary artery without angina pectoris 09/14/2018 03/29/2022 ST elevation myocardial infarction (STEMI) 03/20/2017 12/06/2018 Lung nodule 10/14/2015 03/29/2022 ST elevation myocardial infa rction (STEMI) involving other coronary artery 05/19/2015 03/20/[address] elevation [place] (STEMI) 01/12/201508/26 Myocardial infarction 02/03/20142017 COPD, moderate 08/27/2013 08/06/2020 Overview: Per COPD GOLD Classification Noncompliance 03/13/2013 03/21/2017 Anemia 05/03/2012 03/29/2022 COPD, severity to be determined 04/16/2012 08/27/2013 Dyslipidemia, goal LDL below 70 04/16/2012 03/29/2022 documented as of this encounter (statuses as of 09/03/2024) Immunizations Name Administration Dates Next Due COVID-19 mRNA, LNP-s, No Pre serve, 2-Dose Series ([employer]) 08/28/2021,02/18/2021,01/28/2021 Pneumococcal Conjugate Vacc, 13 Valent (Prevnar) [...] Types Packs/Day Years Used Date Smoking Tobacco: Every Day Cigarettes 1 40 Started: 08/22/1983; Last attempted to quit: 08/22/2023 Passive Smoke Exposure: Current Smokeless Tobacco: [...] on file Are you (or your family) micheala eless or worried that you might be [...] Sign Reading Time Taken Comments Blood Pressure 122/82 09/03/2024 10:49 AM EST Pulse 116 09/03/2024 10:49 AM EST Temperature 36.1 C (96.9 F) 09/03/2024 10:[address] Respiratory Rate 18 09/03/2024 10:49 AM EST Oxygen Saturation - - Inhaled Oxygen Concentration - - Weight 78.6 kg (173 lb 3.2 oz) 09/03/2024 10:49 AM EST Height 170.2 cm (5' 7") 09/03/2024 10:49 AM EST Body Mass Index 27.13 09/03/2024 10:49 AM EST documented in this encounter Patient Instructions * Patient Instructions* Kim Cardoza LPN - 09/03/2024 10:47 AM EST Images from the original note were not included. Colorectal Cancer Screening Colorectal cancer (cancer in the colon or rectum) is a leading cause of cancer deaths in the [place] But it doesnt have to be. When this cancer is found and removed early, the chances of a full recovery are very good. Because colorectal cancer rarely causes symptoms in its early stages, screening for the disease is important. Its even more crucial if you have risk factors for the disease. Learn more about colorectal cancer and its risk factors. Then talk to your healthcare provider about being screened. You could be saving your own life. Risk factors for colorectal cancer Your risk of having colorectal cancer increases if you: Are 50 years of age or older Have a family history or personal history of colorectal cancer or polyps Have a personal history of type 2 diabetes, Crohns disease, or ulcerative colitis Have an inherited genetic syndrome like John syndrome (also known as HNPCC) or familial adenomatous polyposis (FAP) Are very overweight Are not physically active Smoke Drink a lot of alcohol Eat a lot of red or processed meat The colon and rectum Waste from food you eat enters the colon from the small intestine. As it travels through the colon,the waste (stool) loses water and becomes more solid. Intestinal muscles push it toward the sigmoid--the last section of the colon. Stool then moves into the rectum, where its stored until its ready to leave the body during a bowel movement. How cancer develops Polyps are growths that form on the inner lining of the colon or rectum. Most are benign, which means they arent cancerous. But over time, some polyps can become cancer (malignant). This happens when cells in these polyps begin growing abnormally. In time, malignant cells invade more and more ofthe colon and rectum. The cancer may also spread to nearby organs or lymph nodes or to other parts of the body. Finding and removing polyps can help prevent cancer from ever forming. Your screening Screening means looking for a health problem before you have symptoms. During screening for colorectal cancer, your healthcare provider will ask about your health history, examine you, and do one or more tests. History and exam The history and exam involve the following: Health history. Your healthcare provider will ask about your health history. Mention if a family member has had colon cancer or polyps. Also mention any health problems you have had in the past. Digital rectal exam (CHIKA). During a CHIKA, the healthcare provider inserts a lubricated gloved fingerinto the rectum. The test is painless and takes less than a minute. Healthcare providers agree thatthis test alone is not enough to screen for colorectal cancer. Screening test choices: Fecal occult blood test (FOBT) or fecal immunochemical test (FIT) These tests check for occult blood in stool (blood you cant see). Hidden blood may be a sign of colon polyps or cancer. A small sample of stool is tested for blood in a laboratory. Most often, youcollect this sample at home using a kit your healthcare provider gives you. Follow the instructionscarefully for using this kit. You might need to avoid certain foods and medicines before the test, as directed. Barium enema with contrast (double-contrast barium enema) This test uses X-rays to provide images of the entire colon and rectum. The day before this test, you will need to do a bowel prep to clean out the colon and rectum. A bowel prep is a liquid diet plus strong laxatives or enemas. You will be awake for the test, but you may be given medicine to help you relax. At the start of the test, a radiologist (a healthcare provider who specializes in imagingtests) places a soft tube into the rectum. The tube is used to fill the colon with a contrast liquid (barium) and air. This can be uncomfortable for some people. The liquid helps the colon show up clearly on the X-rays. Because the test uses X-rays, it exposes you to a small amount of radiation. Virtual colonoscopy This exam is also called a CT colonography. It uses a series of X-ray photographs to create a 3-D view of the colon and rectum. The day before the test, you will need to do a bowel prep to clean out your colon. Your healthcare provider will give you instructions on how to do this. During the procedure, you will lie on a table that is part of a special X-ray machine called a CT scanner. A small tube will be placed into your rectum to fill the colon and rectum with air. This can be uncomfortable for some people. Then, the table will move into the machine and pictures will be taken of your colonand rectum. A computer will combine these photos to create a 3-D picture. Because the test uses X-rays, it exposes you to a small amount of radiation. Cologuard Cologuard is an easy to use, noninvasive colon cancer screening test that you can use in the privacy of your own home. It identifies altered DNA and/or blood in stool, which are associated with the possibility of colon cancer or precancer. DNA is continuously shed from cells in the intestinal lining, where it is passed into the stool. Ifcancer or precancer is present, abnormal cells will shed into the colon and stool along with normalcells. A molecular biology process is used to capture specific pieces of DNA for further analysis. Scope exams Here are two types of scope exams: Colonoscopy. This test can be used to find and remove polyps anywhere in the colon or rectum. The day before the test, you will do a bowel prep. This is a liquid diet plus a strong laxative solution or an enema. The bowel prep will cleanse your colon. You will be given instructions for this. Just before the test, you are given a medicine to make you sleepy. Then, a long, flexible, lighted tube called a colonoscope is gently inserted into the rectum and guided through the entire colon. Images ofthe colon are viewed on a video screen. Any polyps that are found are removed and sent to a lab fortesting. If a polyp cant be removed, a sample of tissue is taken and the polyp might be removed l ater during surgery. You will need to bring someone with you to drive you home after this test. Sigmoidoscopy. This test is similar to colonoscopy, but focuses only on the sigmoid colon and rectum. As with colonoscopy, bowel prep must be done the day before this test. It might not need to be ascomplete as the bowel prep for a colonoscopy. You are awake during the procedure, but you may be given medicine to help you relax. During the test, the healthcare provider guides a thin, flexible, lighted tube called a sigmoidoscope through your rectum and lower colon. The images are displayed on avideo screen. Polyps are removed, if possible, and sent to a lab for testing. Colonoscopy is the only screening test that lets your healthcare provider see the entire colon and rectum. This test also lets your healthcare provider remove any pieces of tissue that need to be looked at by a lab. If something suspicious is found using any other tests, you will likely need a colonoscopy. When to call your healthcare provider after a test Call your healthcare provider if you have any of the following after any screening test: Bleeding Fever of 100.4F (38C) or higher, or as directed by your healthcare provider Abdominal pain Vomiting Date Last Reviewed: 07/29/201519996362-8526 [employer]. [address] [place] [address]. All rights reserved. This information is not intended as a substitute for professional medical care. Always follow your healthcare professional's instructions. documented in this encounter Progress Notes * Octavio Chavira MD - 09/03/2024 11:01 AM EST Subjective: Brian Salinas is a 74 year old male. Chief Complaint Patient presents with Acute Patient is here today due to cough, cold and flu symptoms per . Patients states he started with symptoms last week and has been getting progressively worse. states that his breathing is becoming labored and cough is productive. HPI: 74-year-old with known history of COPD and multiple myeloma is seen today with a one-week history of progressive cough and associated chest discomfort. He has reached a point where his breathinghas been noted to be labored. He does not use any inhalers (has a hard time using inhalers and developed mouth ulcers when he used an inhaler with a spacer. That was probably a steroid anything). He does have Combivent to use with a nebulizer but has not been using it. 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 30 Tablet 2 Probiotic Acidophilus Oral Capsule Take by mouth daily. Nitroglycerin 0.4 MG Sublingual Tablet Sublingual (Nitrostat) One tablet under tongue if needed forchest pain. May repeat 3 times. If chest pain continues, call [phone] Tablet 3 traMADol HCl 50 MG Oral Tablet (Ultram) Take 1 Tablet by mouth every 6 hours as needed for Pain, Moderate. 30 Tablet 0 Metoprolol Tartrate 50 MG Oral Tablet (Lopressor) [...] with or without food.. 14 Capsule 0 [facility] Calcium Citrate+D3 Petites 200-6.25 MG-MCG Oral Tablet (Calcium Citrate- Vitamin D) Take 1 Tablet by mouth in the morning. 90 Tablet 1 Ipratropium-Albuterol 0.5-2.5 (3) MG/3ML Inhalation Solution (Duoneb) Inhale 3 mL via nebulizer in the morning and 3 mL at noon and 3 mL in the evening and 3 mL before bedtime. (Patient not taking: Reported on 09/03/2024) 100 mL 1 No current facility-administered medications for this visit. Review of patient's allergies indicates: Allergen Reactions Calcium Carb-Cholecalciferol Objective: BP 122/82 (BP Site: Right Arm, BP Position: Sitting, BP Cuff Size: Regular) | Pulse 116 | Temp 96.9F (36.1 C) (Tympanic) | Resp 18 | Ht 5' 7" (1.702 m) | Wt 173 lb 3.2 oz (78.6 kg) | BMI 27.13 kg/m | BSA 1.93 m Physical Exam: CONST: alert, pleasant, he did not appear to be in distress but his pulse ox was low initially at 77% and then it michaela to 88%. Heart rate was initially 116 and decrease to 93. HEAD: normocephalic, atraumatic NECK: supple, soft, no adenopathy EARS: canals normal, TMs normal NARES: clear Eyes - PERRLA, EOM'I OROPHARYNX: clear, no swelling or erythema, moist CV: regular rate and rhythm, no murmur CHEST: He has not scattered crackles towards the bases that are more prominent on the left side ABD: soft, non tender, non distended, no masses or hepatosplenomegaly EXT: no edema, no joint swelling or deformities, SKIN: no rash or significant lesions Assessment/ Plan Exacerbation COPD versus pneumonia-given his hypoxia and immunocompromised state with myeloma, he is referred to [facility] for further evaluation and possible admission COPD, group B, by GOLD 2017 classification (HCC) Multiple myeloma, remission status unspecified (HCC) Octavio Chavira MD documented in this encounter Nursing Notes * Kim Cardoza LPN - 09/03/2024 10:57 AM EST The patient has been properly identified by confirmation of name and date of . Chief Complaint Patient presents with Acute Patient is here today due to cough, cold and flu symptoms per . Patients states he started with symptoms last week and has been getting progressively worse. states that his breathing is becoming labored and cough is productive. documented in this encounter Plan of Treatment Upcoming Encounters Date Type Department Care Team (Late st Contact Info) Description 09/04/2024 9:00 AM EST Pharmacy Pharmacy Hematology Oncology [facility] [address] [place] [address] [facility] [place] Hem[facility]Onc [address] [place] [address] 09/05/2024 1:15 PM EST Imaging Radiology [facility] [address] [place] [address] 09/11/2024 1:30 PM EST Office Visit Vascular Surgery, [facility] [address] [place] [address] Darrin Lowe MD [address] [place] [address] 09/16/2024 10:00 AM EST Laboratory Laboratory, [facility] [address] [place] [phone] [address] [address] 09/17/2024 12:30 PM EST Office Visit Hematology/Oncology [facility] [address] [place] [phone] Luann De La Cruz MD [address] [place] [address] 09/17/2024 1:00 PM EST Hem/Onc Treatment Hematology/Oncology Treatment, [place] [address] [place] [phone] Tresa, Chair [address] Hem Onc [address] [place] [address] Scheduled Procedures Name Priority Associated Diagnoses Date/Ti me COLONOSCOPY FLEXIBLE PROXIMAL DIAGNOSTIC Recall History of colon polyps Health Maintenance Due Date Last Done Comments Alpha-1 Antitrypsin 02/13/1970 Cologuard 02/13/1997 Fecal Occult Blood Test 02/13/1997 Sigmoidoscopy 02/13/1997 Adult Wellness Visit 02/13/2018 DISCUSS TOBACCO CESSATION (REFER TO SMARTSET #3291) 07/12/2018 07/12/2017 (Course Completed) Colonoscopy 05/23/2020 05/23/2017 Colorectal Cancer Screening 05/23/2020 COVID-19 Vaccine ( season) 2024 08/28/2021, 02/18/2021, 01/28/2021 Depression Screening 01/11/2025 01/12/2024, 07/12/2017 (Declined) GFR 02/17/2025 08/20/2024, 07/26, 07/23/2024, Additional history exists CKD PHOS USE SMARTSET 14327 07/09/202506/25, 02/13/2023, 02/11/2021 Albumin/Creatinine Ratio 07/23/2025 07/23/2024, 08/25 CKD HGB USE SMARTSET 97717 08/20/202508/20, 08/20/2024, 08/06/2024, Additional history exists O2 ASSESSMENT COMPLETED IN PAST YEAR FOR COPD 08/21/2025 08/21/2024 Hepatitis C Screening 09/03/2025 Postpo kimo from 02/13/1970 (Patient Declined After Education) Pneumococcal Vaccine: 65+ Years Completed 07/25/2022, 07/09/2020 [...] as of this encounter Visit Diagnoses Diagnosis Special screening for malignant neoplasms, colon- Primary COPD, group B, by GOLD 2017 classification (HCC) Multiple myeloma, remission status unspecified (HCC) documented in this encounter Care Teams Business Services Sales Representative Relationship Specialty Start Date End Date Savanah Geiger DO [address] [place] [address] PCP - General Family Medicine 04/11/12 documented as of this encounter
--- OUTSIDE RECORDS SUMMARY | 2024-09-05 12:07 | External Medical Summary ---
Author Name Unknown Address Unknown Organization [id number]:LABORATORY [facility] - [address] [facility] [address] Laboratory Report Ordering Provider Test Date Status MARY ANNE LAGUNA 09/03/2024 10:14:18 Final Mantel Cell Lymphoma - Every week [...] Abnormality Reference (Units ) Status WBC, Total 09/03/2024 10:14:18 8.78 4.00-10.80 (K/uL) Final RBC 09/03/2024 10:14:18 3.75 4.50-5.25 (M/uL) Final Hemoglobin 09/03/2024 10:14:18 11.5 Below low normal 14.0-16.8 (g/dL) Final HCT 09/03/2024 10:14:18 38.1 Below low normal 40.0-48.4 (%) Final MCV 09/03/2024 10:14:18 101.6 82.0-99.5 (fL) Final MCH 09/03/2024 10:14:18 30.7 27.0-34.0 (pg) Final MCHC 09/03/2024 10:14:18 30.2 32.0-36.0 (g/dL) Final RDW 09/03/2024 10:14:18 15.8 11.5-15.5 (%) Final Platelets 09/03/2024 10:14:18 218 140-400 (K/uL) Final MPV 09/03/2024 10:14:18 11.8 6.6-11.1 (fL) Final Nucleated erythrocytes/100 leukocytes [Ratio] in Blood by Automated count 09/03/2024 10:14:18 0 <=0 (/100 WBCs) Final Performing Location LABORATORY [facility] - [facility] [address] [facility] [address]
--- OUTSIDE RECORDS SUMMARY | 2024-09-05 12:07 | External Medical Summary ---
Author Name Unknown Address Unknown Organization [id number]:LABORATORY [facility] - [address] [facility] [place] [address] Laboratory Report Ordering Provider Test Date Status [...] SYNC LEUKOCYTES IN BLOOD BY AUTOMATED COUNT 09/03/2024 10:14:18 8.78 4.00-10.80 (K/uL) Final Segs 09/03/2024 10:14:18 76.6 Above high normal 40.0-75.0 (%) Final Lymphs % 09/03/2024 10:14:18 9.1 Below low normal 18.0-42.0 (%) Final Monos 09/03/2024 10:14:18 5.2 1.0-11.0 (%) Final Eosinophils 09/03/2024 10:14:18 6.9 Above high normal 0.0-6.0 (%) Final Basos 09/03/2024 10:14:18 0.5 0.0-2.0 (%) Final Immature Granulocyte, Percent 09/03/2024 10:14:18 1.7 0.0-2.0 (%) Final Absolute Segs 09/03/2024 10:14:18 6.72 1.80-7.70 (K/uL) Final Lymphs, absolute 09/03/2024 10:14:18 0.80 Below low normal 1.00-4.80 (K/ul) Final Monos, Abs 09/03/2024 10:14:18 0.46 0.00-1.10 (K/uL) Final Eos, Abs 09/03/2024 10:14:18 0.61 0.00-0.70 (K/uL) Final Basos, Abs 09/03/2024 10:14:18 0.04 0.00-0.20 (K/uL) Final Immature Granulocytes, Number 09/03/2024 10:14:18 0.15 0.00-0.20 (K/uL) Final Performing Location LABORATORY [facility] - [facility] [address] [facility] [address]
--- OUTSIDE RECORDS SUMMARY | 2024-09-05 12:08 | External Medical Summary ---
Author Name Unknown Address Unknown Organization [id number]:[facility] [place] [address] [place] [address] Laboratory Report Ordering Provider Test Date Status MARY ANNE LAGUNA 09/03/2024 10:14:18 Final Observation Date Value Abnormality Reference (Units ) Status IgG 09/03/2024 10:14:18 [phone] ( mg/dL) Final IgA 09/03/2024 10:14:18 102 70-400 (mg /dL) Final IgM 09/03/2024 10:14:18 16 Below low normal 40- 230 (mg/dL) Final Performing Location LABORATORY C - [address] [place] [address]
[2024-09-05] MEDS ORDERED: ALBUT/IPRATROP 3MG/0.5MG NEB 3 ML VIAL NEB PRN (15:25)
[2024-09-05 16:08] LABS: Creatinine Clr Calc Pharmacy 37.2 ml/min
[2024-09-06 08:08] LABS: Basophils # (auto) 0.02 K/uL (0.00-0.20); Basophils % (auto) 0.2 %; Eosinophils # (auto) 0.29 K/uL (0.00-0.50); Eosinophils % (auto) 2.9 %; Hematocrit (blood only) 28.9 % (42.0-52.0); Hemoglobin 9.2 g/dl (14.0-18.0); Immature Granulocytes # (auto) 0.18 K/uL (0.01-0.20); Immature Granulocytes % (auto) 1.8 %; Lymphocytes # (auto) 1.29 K/uL (1.20-3.40); Lymphocytes % (auto) 12.9 %; Mean Corpuscular Hemoglobin 30.9 pg (25.0-34.0); Mean Corpuscular Hgb Conc 31.8 g/dL (32.0-36.0); Mean Platelet Volume 11.5 fL (9.4-12.4); Monocytes # (auto) 0.86 K/uL (0.11-0.59); Monocytes % (auto) 8.6 %; Neutrophils # (auto) 7.39 K/uL (1.40-6.50); Neutrophils % (auto) 73.6 %; Platelet Count 194 K/uL (130-400); RDW Coefficient of Variation 15.9 % (11.5-14.5); RDW Standard Deviation 57.4 fL (36.4-46.3); Red Blood Count 2.98 M/uL (4.70-6.10); White Blood Count 10.03 K/ul (4.8-10.8)
[2024-09-06 08:32] LABS: BUN Creatinine Ratio 21.3 (10-20); Calcium 7.8 mg/dl (8.6-10.3); Creatinine Clr Calc Pharmacy 40.3 ml/min; Magnesium 1.5 mg/dl (1.7-2.4); Phosphorus 3.8 mg/dl (2.5-4.9); Potassium 4.1 mmol/L (3.5-5.1)
[2024-09-06] MEDS: SODIUM CHLORIDE 0.9% 1,000 ML IV SCH (10:05)
--- NOTE | 2024-09-06 13:21 | Hospitalist Progress Note ---
Date of Service September 06, 2024 Assessment & Plan (1) Hypoxia: (2) Multiple myeloma: (3) COPD (chronic obstructive pulmonary disease): (4) Atrial fibrillation: (5) Hypertension: (6) GERD (gastroesophageal reflux disease): Plan The patient is a 74-year-old male with a past medical history of multiple myeloma, C. difficile x 2, COPD, A-fib, GERD, CAD, HTN who presents to the ED on 09/03/2024 with complaints of shortness of breath intermittently and a cough x 7 days. Acute hypoxic respiratory failure COPD Exacerbation Possible Pneumonia O2 saturation <90% on room air noted at PCPs office Patient was given IV Solu-Medrol as well as a breathing treatment with DuoNebs and a dose of IV Zosyn in the emergency room Hypoxia resolved on arrival to the ER Respiratory viral panel negative chest x-ray noting no acute pathology Chest CTA with no noted PE but noted severe pulmonary emphysema with chronic fibrosis and "new subtle nodular consolidative foci" within the right middle and lower lobes. Radiology recommending 3 month follow-up chest CT. continue IV Rocephin and azithromycin for treatment of a possible community- acquired pneumonia Continue home steroid dexamethasone, patient with continued improvement will d efer on additional steroids at this time As needed DuoNebs Patient with significant improvement of his symptoms Continue to monitor Acute Kidney Injury Creatinine elevated to 1.5 on 09/05/2024, up from 1.3 the day before Patient notes a history of flatus IVF for 1 bag Continue to monitor Hx C. difficile Continue lactobacillus, prophylactic Vanco ordered while on IV antibiotics Hx multiple myeloma: On Revlimid and Decadron at home, continue Decadron every Monday, hold Revlimid for now Hx AF/CAD/cardiac stents: Continue metoprolol/aspirin, remains in sinus rhythm, telemetry monitoring Continue other home meds as ordered Diet: HH DVT prophylaxis: Lovenox Dispo: Home once medically stable Admission and Anticipated Discharge Date Admission Date: September 03, 2024 Physical Exam Physical Exam: General: Alert, oriented. No acute distress Neuro: No gross deficits HEENT: NC/AT CV: RRR Resp: Breath sounds decreased bilaterally Abdomen: Soft, nontender Extremities: No edema in lower extremities bilaterally. Results & Data Results & Data Vital Signs (Past 12 Hours) Vital Signs Temp Pulse Pulse Resp BP Pulse Ox O2 Del Method 09/06/24 12:00 36.9 C 63 16 148/85 H 95 Room Air 09/06/24 11:41 Room Air 09/06/24 08:45 36.9 C 64 16 139/81 95 Room Air 09/06/24 08:00 89 (2) Multiple myeloma Multiple myeloma remission status: unspecified Qualified Code(s): C90.00 - Multiple myeloma not having achieved remission
--- NOTE | 2024-09-06 14:25 | Nephrology Consultation ---
Date of Consultation September 06, 2024 Assessment & Plan (1) BREANN (acute kidney injury): He had Slight rise in creat from 1.3 to a peak of 1.68. The timeline of rise in creat corelates with Contrast Induced nephropathy. however it was mild type and already starting to get better. Creat today less than yesterday. he has multiple myeloma which makes patients much more prone to Contrast nephropathy. he has got enough iv fluids already. desperate to go home now. he seems ready for discharge. has multiple appt next week. Would recommend he gets renal panel and urine prot/creat next week in appt. Reviewed his outpt course of Multiple myeloma in details. Nothing to suggest Active renal Involvement with Multiple myeloma. BREANN is from Contrast agents. Ca++ normal. He had ACR done as outpt and was normal but should also have urine prot/creat done as outpt for more complete workup. he can eat and drink normally and wants to go home. NO need of nephrology f/u Unless outpt labs done shows worsening renal function. (2) Pneumonia: Admission Dx. On ABX--Z pack and Ceftriaxone. As per primary team. avoid nephrotoxic agents. (3) Multiple myeloma: Reviewed his outpt course in details. Nothing to suggest Active renal Involvement with Multiple myeloma. BREANN is from Contrast agents. Ca++ normal. he had ACR done as outpt but should also have urine prot/creat done as outpt. History of Present Illness Reason for Consultation: BREANN Attending Physician: Melisa Almaguer MD History of Present Illness 74/M with CKD 3 baseline creat 1.4. 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 Current Cancer Treatment: Because of the increasing immunoglobulin level, treatment was resumed on 06/26/2024 including combination of Velcade plus lenalidomide and Decadron. getting Chemo actively through Dr De La Cruz. Also has h/o C. difficile x 2, COPD, A-fib, GERD, CAD, HTN. He presented to the ED on 09/03/2024 with complaints of shortness of breath and a cough x 7 days. Patient reports feeling nasal congestion and being unable to sleep because of this. At PCP office o2 sats was found to be 77% on room air. He was directed to go to the ER. His respiratory panel was negative. Chest x-ray with no evidence of pneumonia Chest CTA with Iv contrast was done and was negative for PE but noted to have severe pulmonary emphysema. Right upper lobe consolidation noted suspicious for inflammation/infection The patient was given IV Zosyn and IV Solu-Medrol in the ER and was admitted for further management of pneumonia. Creat baseline 1.4 On Admission 1.3 then 1.5 and then 1.68 but today dropped to 1.55. Now he feels fine and really wants to go home. eating and drinking fine and Vital signs are stable/good. making urine. ROS--currently 12 Systems reviewed and negative except Chronic cough and baseline Dyspnea. Physical Exam Constitutional: WD/WN, vitals as above Eyes: PERRL, conjunctivae normal, anicteric sclerae ENMT: external ear and nose normal, oropharynx normal Neck: trachea midline, no thyromegaly Respiratory: normal respiratory effort, prolonged expiration but clear to auscultation no labored breathing and no audible wheezes Cardiovascular: RRR, no murmur, no edema Gastrointestinal (Abdomen): normal bowel sounds, soft, nontender, no hepatosplenomegaly Skin: no rashes, warm and dry Neurologic: PERRL, EOMI, accommodation nl, no face palsy, no dysarthria Psychiatric: A+Ox3, euthymic affect Allergies Allergy/AdvReac Type Severity Reaction Status Date / Time shellfish derived Allergy Intermediate HIVES Verified 01/17/24 12:18 Home Medications Medication Instructions Recorded Confirmed Type aspirin 81 mg tablet,delayed 81 mg PO QAM 09/29/19 09/03/24 History release atorvastatin 80 mg tablet 80 mg PO QPM 09/29/19 09/03/24 History nitroglycerin 0.4 mg sublingual 0.4 mg sublingual UD PRN Chest Pain 09/29/19 09/03/24 History tablet calcium 250 mg (as 1 tab PO HS 10/05/20 09/03/24 History citrate)-vitamin D3 5 mcg (200 unit) tablet acyclovir 400 mg tablet 400 mg PO BID 07/18/22 09/03/24 History mirtazapine 15 mg tablet 15 mg PO HS 07/18/22 09/03/24 History ondansetron HCl 8 mg tablet 8 mg PO UD PRN Nausea 07/18/22 09/03/24 History lactobacillus combination no.4 3 0 mmu cells PO DAILY 08/22/23 09/03/24 History billion cell capsule (Probiotic) loperamide 2 mg capsule 2 mg PO UD PRN Diarrhea 08/22/23 09/03/24 History metoprolol tartrate 50 mg tablet 50 mg PO BID 08/22/23 09/03/24 History pantoprazole 20 mg tablet,delayed 20 mg PO BID 08/22/23 09/03/24 History release tramadol 50 mg tablet 50 mg PO UD PRN Pain 08/22/23 09/03/24 History cyanocobalamin (vitamin B-12) 1,000 mcg PO QAM 09/03/24 09/03/24 History 1,000 mcg tablet dexamethasone 4 mg tablet 20 mg PO UD 09/03/24 09/03/24 History lenalidomide 10 mg capsule 10 mg PO DIRECTED 09/03/24 09/03/24 History (Revlimid) Patient History Medical History Bilateral pneumonia hospitalized for this 07/2020 [facility] History of COVID-19 10/05/19 > tested at [place] [facility]2023[facility] History of kidney stones Arthritis Lung nodule, multiple per , refusing work up at present time History of myocardial infarction 2013 Hyperlipidemia COPD (chronic obstructive pulmonary disease) no inh Chronic steroid use Multiple myeloma reason for dexamethasone, revlimid & velcade History of pancreatitis Anemia Bladder cancer dx March 2020; hx TURBT 04/27/2020 [facility] Surgical History Hx of right cataract extraction Hx of transurethral resection of prostate History of colonoscopy History of tooth extraction History of cystoscopy History of cardiac catheterization 2013 [facility] [place] - 1 stent History of cholecystectomy Family History Other Heart disease Social History Smoking Status: Current every day smoker Tobacco Type: Cigarettes Cigarettes Per Day: 5-7; Second Hand Exposure: No; Do You Dip or Chew Tobacco: No; Hx Alcohol Use: Yes (previous alcohol use) Alcohol type: hard liquor Hx Substance Use: Yes Last Used Substance: Unknown Last Used Substance Other:: uses marijuana ~2 puffs daily; remote hx of use of cocaine, amphetamines Substance Use Type Other:: marijuana once weekly Preferred Language: Moldovan Communication Ability: Effective Visual Impairment: No Limitations [employer] Required: No Beliefs That Will Affect Care: None marital status: Current Living Situation: Spouse Other Information That Helps Us Care for You: No Feels Safe at Home: Yes Safety Concerns: Feels Safe At This Time Assistive Devices: None Results & Data Vital Signs (Past 12 Hours) Vital Signs Temp Pulse Pulse Resp BP Pulse Ox O2 Del Method 09/06/24 12:00 36.9 C 63 16 148/85 H 95 Room Air 09/06/24 11:41 Room Air 09/06/24 08:45 36.9 C 64 16 139/81 95 Room Air 09/06/24 08:00 89 Laboratory Results EPIC + CinnaB[facility] labs reviewed (2) Pneumonia Laterality: bilateral Lung location: unspecified part of lung Pneumonia type: due to unspecified organism Qualified Code(s): J18.9 - Pneumonia, unspecified organism (3) Multiple myeloma Multiple myeloma remission status: unspecified Qualified Code(s): C90.00 - Multiple myeloma not having achieved remission
--- NOTE | 2024-09-06 14:56 | Discharge Summary ---
Discharge Summary Date of Service September 06, 2024 Principal Dx & Hospital Course #1 = Principal Diagnosis (1) Hypoxia: (2) Multiple myeloma: (3) COPD (chronic obstructive pulmonary disease): (4) Atrial fibrillation: (5) Hypertension: (6) GERD (gastroesophageal reflux disease): Plan The patient is a 74-year-old male with a past medical history of multiple myeloma, C. difficile x 2, COPD, A-fib, GERD, CAD, HTN who presents to the ED on 09/03/2024 with complaints of shortness of breath intermittently and a cough x 7 days. Acute hypoxic respiratory failure COPD Exacerbation Possible Pneumonia O2 saturation <90% on room air noted at PCPs office Patient was given IV Solu-Medrol as well as a breathing treatment with DuoNebs and a dose of IV Zosyn in the emergency room Hypoxia resolved on arrival to the ER Respiratory viral panel negative chest x-ray noting no acute pathology Chest CTA with no noted PE but noted severe pulmonary emphysema with chronic fibrosis and "new subtle nodular consolidative foci" within the right middle and lower lobes. Radiology recommending 3 month follow-up chest CT. continue IV Rocephin and azithromycin for treatment of a possible community- acquired pneumonia. patient completed treatment with azithromycin 500 mg while hospitalized. Discharged with 2 more days of p.o. cefdinir. Also discharged with prophylactic vancomycin given his significant history of C. difficile colitis. Continued home steroid dexamethasone, patient with continued improvement and did not require additional steroids As needed DuoNebs Close PCP follow-up after discharge Consider pulmonary follow-up as well Acute Kidney Injury Creatinine elevated to 1.5 on 09/05/2024, up from 1.3 the day before. Further trend to 1.68 to 1.55 Patient notes a history of this IVF for 2 bags during hospitalization Nephrology consulted on the day of discharge, recommended or stated the following: "...The timeline of rise in creat corelates with Contrast Induced nephropathy. however it was mild type and already starting to get better...he has multiple myeloma which makes patients much more prone to Contrast nephropathy. he has got enough iv fluids already...Would recommend he gets renal panel and urine prot/creat next week in appt...NO need of nephrology f/u Unless outpt labs done shows worsening renal function..." Hx C. difficile Continue lactobacillus, prophylactic Vanco ordered while on IV antibiotics discharged with prophylactic vancomycin 125mg daily given his significant history of C. difficile colitis, to be continued for an additional week after antibiotic completion Hx multiple myeloma: On Revlimid and Decadron at home, continue Decadron every Monday, resume Revlimid on discharge Hx AF/CAD/cardiac stents: Continue metoprolol/aspirin, remains in sinus rhythm, telemetry monitoring Continue other home meds as ordered Notes For Next Care Provider Per Nephrology: "Would recommend he gets renal panel and urine prot/creat next week in appt." Please ensure 3 month follow up Chest [address] per Radiology Medication Changes From Visit Cefdinir 300 mg twice daily for 2 more days Vancomycin prophylaxis: 125 mg daily for an additional 8 days Completed course of azithromycin while hospitalized Admission HPI Per Admitting Provider The patient is a 74-year-old male with a past medical history of multiple myeloma, C. difficile x 2, COPD, A-fib, GERD, CAD, HTN who presents to the ED on 09/03/2024 with complaints of shortness of breath intermittently and a cough x 7 days. Patient reports feeling nasal congestion and being unable to sleep because of this. His dry coughing has been keeping him up at night so he made an appointment with his primary care provider. He was at our office and was found to be 77% on room air. He was able to take deep breaths and increase his oxygen 88% he was directed to go to the ER. He was 97% on room air on arrival to the ER. On exam, he is breathing comfortably. He is in no apparent distress. He denies any recent nausea/vomiting/diarrhea/abdominal pains. Does report some right sided chest pain and being concerned with a pulled muscle because of, she has been coughing. He is currently on Revlimid and dexamethasone for multiple myeloma and follows with his cancer doctor regularly. He denies any recent travel. His respiratory panel was negative Chest x-ray with no evidence of pneumonia Chest CTA was negative for PE, severe pulmonary emphysema noted. 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 NAD, on RA. HEENT: No pallor, no icterus. Pupils equal, round and reactive to light. Oral mucosa moist. NECK: No JVD, no neck masses. HEART: S1 and S2 heard. Regular rate and rhythm. No murmur, no gallop. RESPIRATORY SYSTEM: Normal AP diameter. No accessory muscle use. No wheezing, no crackles. ABDOMEN: Soft, bowel sounds present, nontender, no distention. CENTRAL NERVOUS SYSTEM: No facial droop. Speech is clear. Obeys simple commands. Moves extremities. EXTREMITIES: No edema, no erythema seen. Discharge Exam General: Alert, oriented. No acute distress Neuro: No gross deficits HEENT: NC/AT CV: RRR Resp: Breath sounds decreased bilaterally Abdomen: Soft, nontender Extremities: No edema in lower extremities bilaterally. Updated Medication List Medication Instructions Recorded Confirmed Type aspirin 81 mg tablet,delayed 81 mg PO QAM 09/29/19 09/03/24 History release atorvastatin 80 mg tablet 80 mg PO QPM 09/29/19 09/03/24 History nitroglycerin 0.4 mg sublingual 0.4 mg sublingual UD PRN Chest Pain 09/29/19 09/03/24 History tablet calcium 250 mg (as 1 tab PO HS 10/05/20 09/03/24 History citrate)-vitamin D3 5 mcg (200 unit) tablet acyclovir 400 mg tablet 400 mg PO BID 07/18/22 09/03/24 History mirtazapine 15 mg tablet 15 mg PO HS 07/18/22 09/03/24 History ondansetron HCl 8 mg tablet 8 mg PO UD PRN Nausea 07/18/22 09/03/24 History lactobacillus combination no.4 3 0 mmu cells PO DAILY 08/22/23 09/03/24 History billion cell capsule (Probiotic) loperamide 2 mg capsule 2 mg PO UD PRN Diarrhea 08/22/23 09/03/24 History metoprolol tartrate 50 mg tablet 50 mg PO BID 08/22/23 09/03/24 History pantoprazole 20 mg tablet,delayed 20 mg PO BID 08/22/23 09/03/24 History release tramadol 50 mg tablet 50 mg PO UD PRN Pain 08/22/23 09/03/24 History cyanocobalamin (vitamin B-12) 1,000 mcg PO QAM 09/03/24 09/03/24 History 1,000 mcg tablet dexamethasone 4 mg tablet 20 mg PO UD 09/03/24 09/03/24 History lenalidomide 10 mg capsule 10 mg PO DIRECTED 09/03/24 09/03/24 History (Revlimid) cefdinir 300 mg capsule 300 mg PO BID #4 caps 09/06/24 Rx vancomycin 125 mg capsule 125 mg PO DAILY #10 caps 09/06/24 Rx Hospital Stay Data Consultations 09/03/24 15:01 ED Decision to Admit Stat 09/06/24 09:08 Consult Nephrology Routine Diagnostic Imagining Performed 09/03/24 13:33 CT angio chest PE protocol Stat Chest X-Ray 09/03/24 12:20 XR chest 1V portable CLINICAL HISTORY: sob TECHNIQUE: Single frontal radiograph of the chest was obtained. Comparison: Comparison is made to chest radiograph 08/22/2023 FINDINGS: No lines and tubes are seen. Cardiomegaly is noted. The lungs are clear. No evidence of pleural effusion or pneumothorax. IMPRESSION: No acute abnormalities and in particular no radiographic evidence of pneumonia. Previously noted airspace opacity has essentially resolved. ACT 112: Negative or not required by law. Electronically signed by: Tad Younger M.D. 09/03/2024 12:40 PM Chest CTA 09/03/24 13:33 CT angio chest PE protocol CT DOSE: 774.97 mGy.cm HISTORY: 74 years-old Male with PE. Acute cough with shortness of breath TECHNIQUE: Multiple CTA images of the chest were obtained after the intravenous administration of 119 ml Optiray. Coronal and sagittal MIPS were obtained from the axial data set and were submitted for review. All measurements were obtained according to NASCET criteria. A dose lowering technique was utilized adhering to the principles of ALARA. COMPARISON: Chest CT 08/22/2023, 04/25/2020. FINDINGS: Unremarkable thyroid. No lymphadenopathy. Mild cardiomegaly with extensive coronary artery calcifications. Mild dilation of the ascending thoracic aorta at the level of the main pulmonary artery, 4.3 cm. This is unchanged from prior. No pulmonary emboli identified. Severe pulmonary emphysema redemonstrated. Subpleural fibrotic changes are noted along with patchy subpleural groundglass densities in the mid to lower lung zones, right greater than left. There is improved aeration of the subpleural right upper lobe compared to the prior study. Progressive subpleural opacities within the right middle lobe lateral subpleural segment on image 96 series 4 is 9 mm nodular component. Mild subcentimeter nodular consolidative foci within the right lower lobe has slightly progressed. Stable solid nodules in the left lower lobe measure up to 5 mm. Central airways are patent. Cholecystectomy. Bilateral perinephric stranding. There are a few hepatic cysts noted. No acute fracture. Degenerative changes of the shoulders and spine with chronic appearing thoracic compression deformities. A lucent expansile lesions within the posterior lateral aspect of the right seventh rib with cortical thinning which appears more conspicuous on the prior study. IMPRESSION: 1. No pulmonary emboli identified. 2. Severe pulmonary emphysema with chronic fibrosis. 3. There is improved aeration of the subpleural right upper lobe compared to the prior study, however there is new subtle nodular consolidative foci present within the right middle and lower lobes. These findings are likely infectious or inflammatory, however 3 month follow-up chest CT recommended. 4. No lymphadenopathy. 5. Expansile lucent bone lesion of the right seventh rib. This lesion has been present dating back to the exam from 2019 where it demonstrated a healing subacute associated pathologic fracture. This may represent an enchondroma. ACT 112: Negative or not required by law. The above report was generated using voice recognition software. It may contain grammatical, syntax or spelling errors. Electronically signed by: Quirino Soto M.D. 09/03/2024 2:37 PM Pending Results Patient Have Any Pending Studies at Discharge: No Discharge Instructions Given to Patient (Per Discharging Provider) Brian, You are being discharged home. We treated you for COPD exacerbation and your symptoms improved. You completed treatment with the antibiotic azithromycin while in the hospital. Please continue with the antibiotic cefdinir for 2 more days at home. Given your history of C. difficile colitis we treated you while you are in the hospital with oral vancomycin to help prevent that infection from starting again. Please continue with the prescription at home even after you finish the 2 days of cefdinir, for an additional 7 days. Please continue with your probiotics at home as well. We also noted that your kidney function was affected due to the contrast you received with your imaging. You were seen by the mica patcher who recommended that you can be discharged home but will need to have a repeat renal panel and other labs completed by your primary care provider next week. Please keep close follow up with your primary care provider after discharge. Please do not hesitate to come back to the emergency room if your symptoms wors en or return. It was a pleasure taking care of you while you were here. Total Time Total Time Spent Total Time Spent (In Minutes): 60
[2024-09-06 16:14] VITALS: BP 127/80; PULSE 68; RESP 12; TEMP 98.8; O2SAT 94
== END 2024-09-06 17:46 | disposition home or self-care (01) | DRG 193 ==
LOC: ED 11:59 → INTOOBSV 15:09 → 2W 15:09 → SUATTDRO 15:09 → 2W 17:56